=== PATIENT | female | born 1975 | race Caucasian/White ===

== ENCOUNTER 2016-08-08 20:57 | Inpatient (IN) | payer MEDICARE, MEDICAID ==
[2016-08-08] MEDS ORDERED: ONDANSETRON ODT 8 MG TAB SL ONE (21:45)
[2016-08-08] MEDS ORDERED: SODIUM CHLORIDE 0.9% 1000ML 1,000 ML IVS ONE (21:50)
[2016-08-08] MEDS ORDERED: SODIUM CHLORIDE 0.9% 1000ML 1,000 ML ONE (21:52)
--- NOTE | 2016-08-08 22:37 | ED.PDOC ---
History of Present Illness - General Chief Complaint: GI Problem Stated Complaint: n/v/body aches Time Seen by Provider: 08/08/16 22:36 Source: patient, RN notes reviewed, Vital Signs reviewed Exam Limitations: no limitations - History of Present Illness Initial Comments: patient stated that she started with nausea vomiting 2 days ago several episodes estimated to be about 25x and she had history of DM1 and she had been admitted 9 x for dka in the past Severity: moderate Improving Factors: nothing Worsening Factors: eating Associated Symptoms: weakness, other - body aches Allergies/Adverse Reactions: Allergies Eggs or Egg-derived Products Allergy (Verified 08/08/16 21:19) Fish Allergy Allergy (Verified 08/08/16 21:19) peanut Allergy (Severe, Uncoded 04/09/16 17:24) eggs Allergy (Uncoded 04/09/16 17:24) Home Medications: Ambulatory Orders Escitalopram Oxalate [Lexapro] 40 mg PO MOWEFR 06/22/15 Insulin Lispro [Humalog] See Protocol SC ACHS 06/22/15 Promethazine Tab [Phenergan Tablet] 25 mg PO Q6HR PRN 06/22/15 diphenhydrAMINE HCL [Benadryl] 50 mg PO TID PRN 06/22/15 Ciprofloxacin [Cipro] 500 mg PO BID #20 tab 04/09/16 Diazepam [Valium] 10 mg PO DAILY 04/09/16 Dicyclomine HCl [Bentyl] 20 mg PO Q6HRS PRN #30 tab 04/09/16 Divalproex Sodium [Depakote ER] 500 mg PO DAILY 04/09/16 Escitalopram [Lexapro] 20 mg PO SUTUTHSA 04/09/16 Insulin Glargine [Lantus Solostar] 35 unit SC ACBK 04/09/16 Lorazepam [Ativan] 1 mg PO BID 04/09/16 Ondansetron [Zofran Odt] 4 mg PO Q6HR PRN #10 tab 04/09/16 Tramadol HCl 1 - 2 ea PO Q6H PRN #40 tab 04/09/16 Zolpidem Tartrate [Ambien] 10 mg PO BEDTIME 04/09/16 guaiFENesin W/CODEINE LIQ [Robitussin AC] 10 ml PO Q4HR #120 ml 04/09/16 raNITIdine HCL [Zantac] 150 mg PO BID #30 tab 04/09/16 Review of Systems - Review of Systems Constitutional: States: malaise, weakness EENTM: States: no symptoms reported Respiratory: States: cough - dry Cardiology: States: no symptoms reported Gastrointestinal/Abdominal: States: vomiting Genitourinary: States: no symptoms reported Musculoskeletal: States: no symptoms reported Skin: States: no symptoms reported Neurological: States: no symptoms reported Endocrine: States: no symptoms reported Past Medical History (General) - Patient Medical History Hx Seizures: Yes - From exzema+allergies+ control Hx Stroke: No Hx Dementia: No Hx Asthma: Yes Hx of COPD: No Hx Cardiac Disorders: Yes Hx Congestive Heart Failure: No Hx Pacemaker: No Hx Hypertension: No Hx Thyroid Disease: No Hx Diabetes: Yes Hx Gastroesophageal Reflux: Yes Hx Renal Disease: No Hx Cancer: No Hx of HIV: No Hx Hepatitis C: No Hx MRSA: Yes MRSA Source:: Blood Surgical History: appendectomy, cholecystectomy, Hysterectomy, other - hysterectomy,knee - Vaccination History Hx Tetanus, Diphtheria Vaccination: No Hx Influenza Vaccination: No Hx Pneumococcal Vaccination: No Immunizations Up to Date: No - Social History Hx Tobacco Use: Yes Hx Chewing Tobacco Use: No Hx Alcohol Use: Yes Hx Substance Use: Yes Hx Substance Use Treatment: No Hx Depression: Yes Feels Threatened In Home Enviroment: No Feels Threatened In a Relationship: No Hx Physical Abuse: No Hx Emotional Abuse: No Hx Suspected Abuse: No - Activities of Daily Living Patient Lives Alone: No - lives with mother - Female History Patient is a Female of Child Bearing Age (10 -59 yrs old): Yes Hx Last Menstrual Period: 11/05/11 Patient : No Family Medical History - Family History Mother Family History: No Known Name: April Age (years): 67 Living Status: Still Living Father Family History: No Known Name: Marlon Age (years): 65 Living Status: Still Living Hx Family Asthma: No - Sister Hx Family Congestive Heart Failure: No Hx Family Hypertension: No Hx Family Stroke: No Hx Cardiac Disease: No - Grandfather. Hx Family Diabetes: No - Pt Age of Onset (years of age): 33 Hx Family Cancer: Yes - Grandmother Lympoma Physical Exam - Physical Exam General Appearance: Alert, Anxious, No apparent distress Ears, Nose, Throat: hearing grossly normal, normal ENT inspection, normal pharynx Neck: non-tender, full range of motion, supple, normal inspection Respiratory: chest non-tender, lungs clear, normal breath sounds, no respiratory distress Cardiovascular/Chest: normal peripheral pulses, regular rate, rhythm, no edema, no gallop, no JVD, no murmur Peripheral Pulses: radial,right: 2+, radial,left: 2+ Gastrointestinal/Abdominal: normal bowel sounds, non tender, soft, no organomegaly Back Exam: normal inspection, no CVA tenderness, muscle spasm Extremity: normal range of motion, non-tender, normal inspection Skin Exam: normal color Lymphatic: no adenopathy Progress - Results/Orders Results/Orders: 08/09/16 00:20 Sodium Chloride 0.9% 1000ML [Ns 1000 ml] 1,000 ml IVS .QD 08/09/16 04:04 LACTIC ACID Stat 08/09/16 04:45 Sodium Chloride 0.9% 1000ML [Ns 1000 ml] 1,000 ml IVS ONCE Laboratory Results WBC 20.1 K/mm3 (4.8-10.8) H* 08/08/16 03:20 RBC 5.63 M/mm3 (4.20-5.40) H 08/08/16 03:20 Hgb 14.7 gm/dL (12.0-16.0) 08/08/16 03:20 Hct 48.0 % (36.0-47.0) H 08/08/16 03:20 MCV 85.3 fl (81.0-99.0) 08/08/16 03:20 MCH 26.1 pg (27.0-31.0) L 08/08/16 03:20 MCHC 30.6 g/dL (33.0-37.0) L 08/08/16 03:20 RDW 15.1 % (11.5-14.5) H 08/08/16 03:20 Plt Count 302 K/mm3 (130-400) 08/08/16 03:20 MPV 9.4 fl (7.40-10.4) 08/08/16 03:20 Absolute Neuts (auto) Not Reportable 08/08/16 03:20 Absolute Lymphs (auto) Not Reportable 08/08/16 03:20 Absolute Monos (auto) Not Reportable 08/08/16 03:20 Absolute Eos (auto) Not Reportable 08/08/16 03:20 Neutrophils % Not Reportable 08/08/16 03:20 Neutrophils % (Manual) 84.0 % 08/08/16 03:20 Lymphocytes % Not Reportable 08/08/16 03:20 Lymphocytes % (Manual) 5.0 % 08/08/16 03:20 Monocytes % Not Reportable 08/08/16 03:20 Monocytes % (Manual) 5.0 % 08/08/16 03:20 Eosinophils % Not Reportable 08/08/16 03:20 Basophils % Not Reportable 08/08/16 03:20 Band Neutrophils 6.0 % 08/08/16 03:20 Normal RBC Morphology Plts fortino adequate Normal rbc morph 08/08/16 03:20 Normal RBC Morphology Plts fortino adequate Normal rbc morph 08/08/16 03:20 pCO2 11 mmHg (32-45) L* 08/09/16 04:30 pO2 122 mmHg (83-108) H* 08/09/16 04:30 HCO3 2.7 mmol/L 08/09/16 04:30 ABG pH 7.040 (7.35-7.45) L* 08/09/16 04:30 ABG O2 Saturation 98.8 % (95.0-99.0) 08/09/16 04:30 ABG Base Excess -28.3 mmol/L 08/09/16 04:30 ABG Deoxyhemoglobin 1.2 % (0.0-5.0) 08/09/16 04:30 Oxyhemoglobin % 97.0 % (94.0-98.0) 08/09/16 04:30 Carboxyhemoglobin % 1.0 % (0.5-1.5) 08/09/16 04:30 Methemoglobin % Sat 0.8 % (0.0-1.5) 08/09/16 04:30 Calc Total Hemoglobin 13.8 g/dL (12.0-16.0) 08/09/16 04:30 Sodium 133 mmol/L (135-145) L 08/08/16 03:20 Potassium 5.8 mmol/L (3.6-5.0) H 08/08/16 03:20 Chloride 112 mmol/L (101-111) H 08/08/16 03:20 Carbon Dioxide Not Reportable 08/08/16 03:20 BUN 13 mg/dL (7-18) 08/08/16 03:20 Creatinine 0.89 mg/dL (0.6-1.3) 08/08/16 03:20 BUN/Creatinine Ratio 14.6 (10-20) 08/08/16 03:20 POC Glucose 258 mg/dL (70-105) H 08/08/16 21:35 Random Glucose 297 mg/dL (70-105) H 08/08/16 03:20 Calcium 8.2 mg/dL (8.4-10.2) L 08/08/16 03:20 Total Bilirubin 1.1 mg/dL (0.2-1.0) H 08/08/16 03:20 AST 14 IU/L (10-42) 08/08/16 03:20 ALT 20 IU/L (10-60) 08/08/16 03:20 Alkaline Phosphatase 112 IU/L (42-121) 08/08/16 03:20 Serum Total Protein 7.7 gm/dL (6.4-8.2) 08/08/16 03:20 Albumin 4.0 g/dl (3.2-5.5) 08/08/16 03:20 Globulin 3.7 gm/dL (2.3-3.5) H 08/08/16 03:20 Albumin/Globulin Ratio 1.1 (1.1-1.9) 08/08/16 03:20 Lipase 181 U/L (22-51) H 08/09/16 03:20 Urine Color Yellow (Yellow) 08/09/16 04:00 Urine Appearance Clear (Clear) 08/09/16 04:00 Urine pH 5.0 (4.5-7.8) 08/09/16 04:00 Ur Specific Rolette >= 1.030 (1.005-1.030) 08/09/16 04:00 Urine Protein 100 mg/dL H 08/09/16 04:00 Urine Glucose (UA) 500 mg/dL (Negative) H 08/09/16 04:00 Urine Ketones >=160 mg/dL (NEGATIVE) 08/09/16 04:00 Urine Blood Moderate (Negative) H 08/09/16 04:00 Urine Nitrite Negative 08/09/16 04:00 Urine Bilirubin Negative (NEGATIVE) 08/09/16 04:00 Urine Urobilinogen 0.2 mg/dL (0.2-1.0) 08/09/16 04:00 Ur Leukocyte Esterase Negative (Negative) 08/09/16 04:00 Urine RBC 5-10 /hpf H 08/09/16 04:00 Urine WBC 0-1 /hpf 08/09/16 04:00 Ur Epithelial Cells 5-10 /hpf 08/09/16 04:00 Urine Bacteria Rare 08/09/16 04:00 Fine Granular Casts 5-10 /lpf 08/09/16 04:00 Urine Opiates Screen Negative ng/mL (2000) 08/09/16 04:00 Urine Barbiturates Negative ng/mL (200) 08/09/16 04:00 Ur Phencyclidine Scrn Negative ng/mL (25) 08/09/16 04:00 U Amphetamin/Meth Scrn Negative ng/mL (1000) 08/09/16 04:00 U Benzodiazepines Scrn Positive ng/mL (200) H 08/09/16 04:00 U Cocaine Metab Screen Negative ng/mL (300) 08/09/16 04:00 U Cannabinoids Screen Negative ng/mL (50) 08/09/16 04:00 - EKG/XRAY/CT XRAY: chest - no acute abnormalities noted Departure - Departure Clinical Impression: Diabetes mellitus type 1, uncontrolled, insulin dependent, Acidosis, metabolic , Volume depletion, gastrointestinal loss Pancreatitis, acute Qualifiers: Pancreatitis type: unspecified pancreatitis type Qualifier Code: (K85.9) Acute pancreatitis, unspecified Vomiting Qualifiers: Vomiting Intractability: unspecified Nausea presence: with nausea Time of Disposition: 05:02 - D/W Dr. Cody-Hospitalist [facility] Disposition: Discharge to Home or Self Care Condition: Fair Departure Forms: ED Discharge - Pt. Copy, Patient Portal Self Enrollment Referrals: Joby Rangel MD [Primary Care Provider] - 1-2 Weeks Home Medications: Ambulatory Orders Escitalopram Oxalate [Lexapro] 40 mg PO MOWEFR 06/22/15 Insulin Lispro [Humalog] See Protocol SC ACHS 06/22/15 Promethazine Tab [Phenergan Tablet] 25 mg PO Q6HR PRN 06/22/15 diphenhydrAMINE HCL [Benadryl] 50 mg PO TID PRN 06/22/15 Ciprofloxacin [Cipro] 500 mg PO BID #20 tab 04/09/16 Diazepam [Valium] 10 mg PO DAILY 04/09/16 Dicyclomine HCl [Bentyl] 20 mg PO Q6HRS PRN #30 tab 04/09/16 Divalproex Sodium [Depakote ER] 500 mg PO DAILY 04/09/16 Escitalopram [Lexapro] 20 mg PO SUTUTHSA 04/09/16 Insulin Glargine [Lantus Solostar] 35 unit SC ACBK 04/09/16 Lorazepam [Ativan] 1 mg PO BID 04/09/16 Ondansetron [Zofran Odt] 4 mg PO Q6HR PRN #10 tab 04/09/16 Tramadol HCl 1 - 2 ea PO Q6H PRN #40 tab 04/09/16 Zolpidem Tartrate [Ambien] 10 mg PO BEDTIME 04/09/16 guaiFENesin W/CODEINE LIQ [Robitussin AC] 10 ml PO Q4HR #120 ml 04/09/16 raNITIdine HCL [Zantac] 150 mg PO BID #30 tab 04/09/16
[2016-08-08] MEDS ORDERED: METOCLOPRAMIDE HCL INJ 10 MG/2 ML VIAL IV ONE (22:50)
[2016-08-08] MEDS ORDERED: fentaNYL CITRATE INJ 50 MCG/ML AMP IV ONE (23:06)
[2016-08-09] MEDS ORDERED: SODIUM CHLORIDE 0.9% 1000ML 1,000 ML IVS PRN ×3 (00:20→16:42)
[2016-08-09] MEDS ORDERED: SODIUM CHLORIDE 0.9% 1000ML 1,000 ML ONE ×2 (00:43→03:21)
[2016-08-09] MEDS ORDERED: PROMETHAZINE HCL INJ 25 MG/ML VIAL ONE (01:17)
[2016-08-09] MEDS ORDERED: PROMETHAZINE HCL INJ 25 MG/ML VIAL IM ONE (01:26)
[2016-08-09] MEDS ORDERED: MIDAZOLAM INJ 5 MG/5 ML VIAL IV ONE (01:31)
[2016-08-09] MEDS ORDERED: fentaNYL CITRATE INJ 50 MCG/ML AMP ONE (02:51)
[2016-08-09] MEDS ORDERED: fentaNYL CITRATE INJ 50 MCG/ML AMP IV ONE (03:15)
[2016-08-09] MEDS ORDERED: PANTOPRAZOLE SODIUM IV 40 MG VIAL IV ONE ×2 (03:30→03:46)
[2016-08-09] MEDS ORDERED: KETOROLAC TROMETHAMINE INJ 30 MG/ML VIAL IV ONE (03:30)
--- NOTE | 2016-08-09 04:07 | RAD ---
EXAM DESCRIPTION: XR CHEST 1 VIEW 08/09/2016 3:55 AM CLINICAL HISTORY: 40 y/o , F, short of breath COMPARISON: Portable AP view of the chest January 03, 2016 FINDINGS: The lungs are clear without focal consolidation or pleural effusion. The heart is normal in size. The mediastinal contours are normal in appearance. The thoracic spine is age appropriate. The shoulders are unremarkable. Limited evaluation of the upper abdomen demonstrates no gross abnormalities. IMPRESSION: No acute cardiopulmonary disease Electronically signed by: Maxx Rios MD 08/09/2016 04:03
[2016-08-09] MEDS ORDERED: SODIUM CHLORIDE 0.9% 1000ML 1,000 ML IVS ONE (04:45)
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
[2016-08-09] MEDS ORDERED: GLUCAGON INJ 1 MG VIAL SUBCU PRN (05:19)
[2016-08-09] MEDS ORDERED: DEXTROSE 50% 25 GM/50 ML SYG IV PRN (05:19)
[2016-08-09] MEDS ORDERED: LEVALBUTEROL NEBS 1.25 MG/3 ML VIAL INH PRN (05:19)
[2016-08-09] MEDS ORDERED: IV SET AND CAP CHANGE INJ INJ SCH (05:30)
[2016-08-09] MEDS: IPRATROPIUM/ALBUTEROL 3 ML VIAL INH SCH ×5 (05:45→20:11)
[2016-08-09] MEDS ORDERED: KETOROLAC TROMETHAMINE INJ 30 MG/ML VIAL IV PRN (06:42)
[2016-08-09] MEDS ORDERED: INSULIN DETEMIR 100 UNITS/ML PEN SUBCU ONE (07:20)
--- NOTE | 2016-08-09 07:41 | RAD ---
EXAM DESCRIPTION: XR ABDOMEN 1 VIEW (KUB) CLINICAL HISTORY: Vomiting. History of small bowel obstruction. FINDINGS/IMPRESSION: Normal bowel gas. No pneumatosis or evidence of free intraperitoneal air No organomegaly or obvious abdominal mass lesion. No pathologic calcification No acute bony abnormality Electronically signed by: Can Baum MD 08/09/2016 07:39
[2016-08-09] MEDS ORDERED: PROMETHAZINE SUPP 25 MG SUP PR ONE ×2 (08:14→08:35)
[2016-08-09] MEDS: ONDANSETRON INJ 4 MG/2 ML VIAL IV PRN ×3 (08:16→20:41)
[2016-08-09] MEDS: INSULIN LISPRO 100 UNITS/ML PEN SUBCU SCH ×2 (08:28→11:00)
[2016-08-09] MEDS: METOCLOPRAMIDE HCL INJ 10 MG/2 ML VIAL IV SCH ×3 (09:01→20:49)
[2016-08-09] MEDS ORDERED: DIGOXIN INJ 0.5 MG/2 ML AMP ONE (09:17)
[2016-08-09] MEDS ORDERED: HYDROmorphone HCL INJ 2 MG/ML VIAL IV ONE ×2 (09:23→11:21)
[2016-08-09] MEDS ORDERED: SODIUM CHLORIDE 0.9% 1000ML 2,000 ML IVS ONE ×2 (09:26→14:06)
[2016-08-09] MEDS ORDERED: KCL 20MEQ/D5NS 1,000 ML IVS PRN (09:27)
[2016-08-09] MEDS: ALUM & MAG HYDROX-SIMETHICONE 30 ML UD PO PRN (10:40)
[2016-08-09] MEDS ORDERED: LIDOCAINE 1% 10 ML VIAL INJ ONE (11:17)
--- NOTE | 2016-08-09 11:35 | CONS ---
DATE OF CONSULTATION: 08/09/16 HISTORY OF PRESENT ILLNESS: The patient is a 40-year-old female, well known to me for multiple situations who now is admitted in diabetic ketoacidosis. She has poor peripheral vascular access with a pH below 7.2. I have been asked to obtain central venous access to allow for hydration, medications, and for the drawing of blood. The patient has a history of multiple central lines in the past. She has a history of drug abuse in the past. PAST MEDICAL HISTORY: 1. Diabetes, type 1, for over ten years. 2. History of methicillin-resistant Staphylococcus aureus. 3. Gastroesophageal reflux. PAST SURGICAL HISTORY: 1. Appendectomy. 2. Cholecystectomy. 3. Hysterectomy. 4. Knee surgery. CURRENT MEDICATIONS: 1. Ranitidine. 2. Guaifenesin with codeine. 3. Zolpidem. 4. Tramadol. 5. Zofran. 6. Lorazepam. 7. Insulin. 8. Lexapro. 9. Depakote. 10. Dicyclomine. 11. Valium. 12. Recently on Cipro. 13. Benadryl. 14. Phenergan tablets. ALLERGIES: EGGS, FISH, PEANUTS. FAMILY HISTORY: Noncontributory. SOCIAL HISTORY: The patient lives with her mother. She has a history of smoking and uses alcohol. REVIEW OF SYSTEMS: Noncontributory except as in the history of present illness. PHYSICAL EXAMINATION: GENERAL: The patient is awake, alert, cooperative, and anxious. NECK: Recent puncture site from last night. The clavicles are both intact, within normal limits. There is some scarring below them, nothing recent. No open wounds. CHEST: Equal breath sounds bilaterally. LABORATORY: Unremarkable other than the electrolyte disorder. RECOMMENDATION: The risks, benefits and alternatives to central venous catheterization were discussed with the patient. She understands, but is anxious. The plan will be to proceed with a triple lumen central catheter under local anesthesia. #[id number] [facility]
--- NOTE | 2016-08-09 12:42 | RAD ---
EXAM DESCRIPTION: XR CHEST 1 VIEW CLINICAL HISTORY: line placement COMPARISON: August 09, 2016 at 0352 hr tear IMPRESSION: Single AP portable upright view of the chest shows cardiac silhouette and pulmonary vasculature to be within normal limits. There has been interval placement of a right subclavian MediPort with tip in good positioning at the distal superior vena cava and no evidence of pneumothorax. Lungs are normally aerated and clear. Electronically signed by: Jerry Delatorre MD 08/09/2016 12:39
--- NOTE | 2016-08-09 13:20 | OP ---
DATE OF PROCEDURE: 08/09/16 PREOPERATIVE DIAGNOSIS: 1. Diabetic ketoacidosis. 2. Poor peripheral vascular access. POSTOPERATIVE DIAGNOSIS: 1. Diabetic ketoacidosis. 2. Poor peripheral vascular access. PROCEDURE: 1. Insertion of right subclavian venous access catheter, triple lumen. SURGEON: Tate Woodson MD. RAYON WINDER: None. ANESTHESIA: Local infiltration of 1% lidocaine. INDICATION: The patient is a 40-year-old female diabetic who presented to the Emergency Room with diabetic ketoacidosis with pH of 7.0. She has lost multiple peripheral IVs over the past 12 hours and I have been asked to obtain central access to allow drawing of her blood from the catheter, her lab work, and to give IV fluids, IV insulin, and possibly bicarb as needed. The risks, benefits and alternatives to the procedure were discussed and accepted by the patient who has had multiple procedures in the past. FINDINGS: Venous blood was obtained with a single stick with the 22 gauge needle and then likewise with the 18 gauge thin wall needle. Chest x-ray is pending. Blood was easily aspirated from all three lumens and flushed at the end of the procedure. PROCEDURE: The patient was placed in supine position. The right chest was prepped and draped in the usual sterile manner. Infraclavicular area was infiltrated with local anesthesia. A 22 gauge needle was introduced and walked down the clavicle and advanced. Venous blood was aspirated. The 18 gauge thin wall needle was then introduced in the same direction. Blood was easily aspirated. The guidewire was then introduced through the needle and the needle was removed. At this point, a stab wound was made over the guidewire. The dilator was introduced over the guidewire and it shows to be downgoing. The dilator was removed and the catheter was introduced over the guidewire without difficulty. It was introduced to 14 cm xochitl. At this point, all three lumens were aspirated and flushed with saline. The catheter was sutured in place in the usual manner with four Silk sutures. Sterile dressing was applied. Stat portable chest x-ray was ordered. The patient tolerated the procedure well. Estimated blood loss was nil. Blood for lab was drawn. #[id number] [facility]
[2016-08-09] MEDS ORDERED: DEXTROSE 10% IV PRN ×2 (13:57→15:52)
[2016-08-09] MEDS ORDERED: POTASSIUM CHLORIDE IV PRN ×3 (13:57→19:20)
[2016-08-09] MEDS ORDERED: INSULIN, REG.(HUMAN) 100 U/ML VIAL ONE (14:29)
[2016-08-09] MEDS ORDERED: SODIUM CHL 0.9% 250ML (AVIVA) 250 ML IVPB ONE (14:29)
[2016-08-09] MEDS ORDERED: POTASSIUM CHLORIDE 40mEq 20ML VIAL ONE ×2 (14:49→21:37)
[2016-08-09] MEDS ORDERED: DEXTROSE 10% 1000ML 1,000 ML IVS ONE ×2 (14:59→21:59)
[2016-08-09] MEDS: SODIUM CHL 0.9% IVPB SCH ×8 (15:06→22:03)
[2016-08-09] MEDS: REG IVPB SCH ×8 (15:06→22:03)
[2016-08-09] MEDS: INSULIN IVPB SCH ×8 (15:06→22:03)
[2016-08-09] MEDS ORDERED: KETOROLAC TROMETHAMINE INJ 60 MG/2 ML VIAL IM ONE (15:29)
[2016-08-09] MEDS: ESCITALOPRAM 10 MG TAB PO SCH (16:18)
[2016-08-09] MEDS: diazePAM 5 MG TAB PO SCH (16:19)
[2016-08-09] MEDS: MORPHINE SULFATE INJ 10 MG/ML VIAL IV PRN ×2 (17:15→21:13)
[2016-08-09] MEDS ORDERED: MAGNESIUM SULFATE PREMIX 2GM 2 GM in PREMIX BAG 1 BAG IVPB ONE (19:15)
[2016-08-09] MEDS ORDERED: NS IV PRN (19:20)
[2016-08-09] MEDS ORDERED: KCL IV PRN (19:20)
[2016-08-09] MEDS ORDERED: MAGNESIUM SULFATE PREMIX 2GM 50 ML IVPB ONE (20:06)
[2016-08-09] MEDS: KCL 20MEQ/0.45% NS 1,000 ML IVS PRN ×2 (20:11→21:58)
[2016-08-09] MEDS: SODIUM CHLORIDE 0.9% (FLUSH) 10 ML SYG IV PRN (20:42)
[2016-08-09] MEDS: ZOLPIDEM TARTRATE 10 MG TAB PO SCH (20:49)
[2016-08-09] MEDS: POTASSIUM CHLORIDE IV PRN (21:59)
[2016-08-09] MEDS: DEXTROSE 10% IV PRN (21:59)
--- NOTE | 2016-08-09 22:22 | PCM.CORE ---
Physician DVT/VTE - Nurse DVT Assessment & Total Each Risk Factor Represents 2 Points: Centeral Venous Access Each Risk Factor Represents 1 Point: Age 41-60, Medical PT at Bed Rest, Hx of smoking past year DVT Assessment Score: 5 - 5 or more Very High Risk Treatments: Early Ambulation *, Sequential Compression Device Pharmacological: Enoxaparin 40mg SQ Daily
[2016-08-10] MEDS: MORPHINE SULFATE INJ 10 MG/ML VIAL IV PRN ×6 (01:18→21:52)
[2016-08-10] MEDS ORDERED: PANTOPRAZOLE SODIUM TAB 40 MG PO ONE (02:06)
[2016-08-10] MEDS: ALUM & MAG HYDROX-SIMETHICONE 30 ML UD PO PRN (02:08)
[2016-08-10] MEDS: ONDANSETRON INJ 4 MG/2 ML VIAL IV PRN ×4 (02:09→21:52)
[2016-08-10] MEDS: SODIUM CHLORIDE 0.9% (FLUSH) 10 ML SYG IV PRN ×2 (04:46→07:05)
[2016-08-10] MEDS: KCL 20MEQ/0.45% NS 1,000 ML IVS PRN (04:47)
[2016-08-10] MEDS ORDERED: POTASSIUM CHLORIDE 40mEq 20ML VIAL ONE (05:17)
[2016-08-10] MEDS: DEXTROSE 10% IV PRN (05:34)
[2016-08-10] MEDS ORDERED: DEXTROSE 10% 1000ML 1,000 ML IVS ONE (05:34)
[2016-08-10] MEDS: POTASSIUM CHLORIDE IV PRN (05:34)
[2016-08-10] MEDS: PANTOPRAZOLE SODIUM TAB 40 MG PO SCH ×2 (06:14→09:15)
[2016-08-10] MEDS: IPRATROPIUM/ALBUTEROL 3 ML VIAL INH SCH ×4 (08:06→20:10)
[2016-08-10] MEDS: INSULIN DETEMIR 100 UNITS/ML PEN SUBCU SCH (08:30)
[2016-08-10] MEDS: diazePAM 5 MG TAB PO SCH (08:41)
[2016-08-10] MEDS: ENOXAPARIN SODIUM 40 MG/0.4 ML SYG SUBCU SCH (08:42)
[2016-08-10] MEDS ORDERED: ESCITALOPRAM 10 MG TAB PO SCH (09:00)
[2016-08-10] MEDS: SODIUM CHLORIDE 0.9% (FLUSH) 10 ML SYG IV SCH ×2 (09:16→20:33)
[2016-08-10] MEDS: INSULIN LISPRO 100 UNITS/ML PEN SUBCU SCH ×3 (11:40→21:26)
--- NOTE | 2016-08-10 19:13 | PN ---
DATE: 08/10/16 SUPERVISING PHYSICIAN: Aristides Alvarado M.D. SUBJECTIVE: The patient is feeling much better today. She did receive fluid resuscitation on her last 24 hours with approximately 7 liters of normal saline. She has not had any nausea or vomiting. Her laboratories have improved dramatically. She has had good urine output. She says she slept well and has felt much better today. She was able to tolerate a clear liquid diet this morning. OBJECTIVE: VITAL SIGNS: Temperature 97, pulse 83, blood pressure 104/67, respirations 18, O2 sat 98% on room air. GENERAL: The patient is resting in bed. Appears to be in no acute distress and comfortable. CHEST: Clear to auscultation bilaterally. Oropharynx is pink and moist with no lesions. There is no jugular venous distention. HEART: regular rate and rhythm. ABDOMEN: Soft , non-tender. Positive bowel sounds. EXTREMITIES: No clubbing, cyanosis or edema. NEUROLOGIC: She is alert and oriented times three. LABORATORY: BMP this morning shows sodium 136, potassium 3.6, chloride remains slightly elevated at 116, carbon dioxide now is improved to 18 from admission of less than 7, anion gap is now normalized at 5.6. BUN 3, creatinine 0.48, glucoses in the last 24 hours have been 135 to 258. Magnesium was low initially and was replaced with 2 grams of infusion, recheck tomorrow. Liver functions now show normal with lipase and amylase being normal with amylase now 78, lipase 35. Serum ketones were negative at 8:00 last night. RADIOLOGY: There is no additional radiographic studies for review. ASSESSMENT: 1. Acute metabolic acidosis secondary to diabetic ketoacidosis secondary to persistent nausea and vomiting 2 to 3 days prior to admission with poor management of her insulin therapy and poor oral intake. This has now resolved. She is no longer acidotic and is no longer producing ketones. She is on subcutaneous insulin and tolerating oral diet without any complications. 2. Elevated lipase likely secondary to the diabetic ketoacidosis and her dehydrated state shown to be normal this morning after IV therapy. 3. Severe dehydration secondary to her diabetic ketoacidosis now resolved after aggressive IV fluids. 4. Type 1 diabetes mellitus poorly controlled with a history of multiple admissions for diabetic ketoacidosis within the last year. 5. History of chronic obstructive pulmonary disease in a smoker. 6. Chronic eczema. 7. Chronic tobacco abuse. 8. Chronic lower back pain and chronic narcotics having previously been treated for pain at a clinic in [place] but being fired within the last month and running out of her opioid pain medicines and Valium possibly resulting in some opioid withdrawal syndrome in the past that could have been associated with the nausea and vomiting prior to admission. 9. Peripheral neuropathy on chronic pain medications, again having been dismissed from the pain clinic. 10. History of chronic fibromyalgia. 11. History of chronic anxiety disorder currently on Benzodiazepines. 12. Leukocytosis secondary to severe dehydrated state with some demarginalization secondary to persistent nausea and vomiting prior to admission now resolved after IV fluid therapy. PLAN: The patient this morning will be saline locked. She is now tolerating a p.o. diet. Her insulin drip has been stopped. She is now on Levemir 20 units daily as well as insulin sliding scale. Her diet this morning was clear liquids. We advanced as tolerated. In regards to possible opioid withdrawals, will plan to restart her back on some Velva as well as some Valium with emphasis that she will need to have followup with her primary care physician, Dr. Rangel, in regards to additional pain management prescriptions. Will continue to monitor the patient. Anticipate possible discharge tomorrow with the blood glucose finger sticks being changes from every hour to a.c. and h.s. At this point, she is stable on oral therapy. Will continue to monitor and repeat laboratory studies in the morning, and possibly discharge after reevaluation. Until then, will follow the patient closely and treat appropriately. #[id number] [facility]
[2016-08-10] MEDS: ZOLPIDEM TARTRATE 10 MG TAB PO SCH (20:33)
[2016-08-11] MEDS: MORPHINE SULFATE INJ 10 MG/ML VIAL IV PRN ×3 (01:51→10:42)
[2016-08-11] MEDS: SODIUM CHLORIDE 0.9% (FLUSH) 10 ML SYG IV PRN ×2 (01:52→06:42)
[2016-08-11] MEDS ORDERED: INSULIN LISPRO 100 UNITS/ML PEN SUBCU ONE (06:04)
[2016-08-11] MEDS: PANTOPRAZOLE SODIUM TAB 40 MG PO SCH (06:26)
[2016-08-11] MEDS: INSULIN DETEMIR 100 UNITS/ML PEN SUBCU SCH ×2 (06:27→09:23)
[2016-08-11] MEDS: ONDANSETRON INJ 4 MG/2 ML VIAL IV PRN (06:40)
[2016-08-11] MEDS: INSULIN LISPRO 100 UNITS/ML PEN SUBCU SCH ×2 (07:30→12:01)
[2016-08-11] MEDS: IPRATROPIUM/ALBUTEROL 3 ML VIAL INH SCH (08:49)
[2016-08-11] MEDS: SODIUM CHLORIDE 0.9% (FLUSH) 10 ML SYG IV SCH (09:25)
[2016-08-11] MEDS: diazePAM 5 MG TAB PO SCH (09:25)
[2016-08-11] MEDS: ENOXAPARIN SODIUM 40 MG/0.4 ML SYG SUBCU SCH ×2 (09:25→09:43)
[2016-08-11] MEDS: ESCITALOPRAM 10 MG TAB PO SCH (09:26)
[2016-08-11 10:32] VITALS: BP 104/70; TEMP 98.2
[2016-08-11 11:53] VITALS: O2SAT 96
--- NOTE | 2016-08-18 21:38 | DS ---
SUPERVISING PHYSICIAN: Aristides Alvarado M.D. DISCHARGE DIAGNOSIS: 1. Acute metabolic acidosis secondary to diabetic ketoacidosis secondary to persistent nausea and vomiting for 2 to 3 days prior to admission with poor management of her insulin therapy and poor oral intake. DKA resolved prior to discharge. The patient is no longer acidotic and is no longer producing ketones. She is on subcutaneous insulin and tolerating oral diet without any complications. 2. Elevated lipase likely secondary to the diabetic ketoacidosis and her dehydrated state normalizing with IV therapy prior to discharge. 3. Severe dehydration secondary to her diabetic ketoacidosis having resolved after aggressive IV fluids and treatment. 4. Type 1 diabetes mellitus poorly controlled with a history of multiple admissions for diabetic ketoacidosis within the last year. 5. History of chronic obstructive pulmonary disease in a smoker. 6. Chronic eczema. 7. Chronic tobacco abuse. 8. Chronic lower back pain and on chronic narcotics having previously been treated at a pain clinic in [place] but being recently discharged from services in the last month having run out of her opioid pain medicines and Valium possibly resulting in some opioid withdrawal syndrome in the past that could have been associated with the nausea and vomiting prior to admission. 9. Peripheral neuropathy on chronic pain medications, again having been dismissed from the pain clinic. 10. History of chronic fibromyalgia. 11. History of chronic anxiety disorder currently on Benzodiazepines. 12. Leukocytosis secondary to severe dehydrated state with some demarginalization secondary to persistent nausea and vomiting prior to admission having resolved prior to discharge. 13. Folliculitis secondary to shaving having been started on antibiotics at time of discharge to include Cephalexin. HISTORY OF PRESENT ILLNESS: Ms. Perkins is a 40 year-old female patient with a significant history of type 1 diabetes mellitus having been poorly controlled in the past and had multiple admissions for diabetic ketoacidosis. On day of admission, the patient presented to the E. R. with nausea and vomiting stating that she had started vomiting 2 days previously with multiple episodes daily, and had inability to hold any fluids as well as failure to have oral intake and utilize her insulin resulting in a severe hypovolemic state and diabetic ketoacidosis. Laboratory studies initially in the Emergency Room showed arterial blood gas with a pH of 7.04 with a PCO2 of 11 and base excess was negative at 28.3, bicarb 2.7. Initial electrolytes showed potassium 5.8, glucose 297, BUN 13, creatinine 0.89. Pancreatic enzymes were also completed showing to be elevated with a lipase at 181. Given the patient's severe metabolic acidosis and dehydration state, the patient was initially started on treatment for diabetic ketoacidosis in the Emergency Department and admitted to the Medical/Surgical floor. She was admitted in stable condition. LABORATORY: White count on admission was 20.1, after IV therapy and treatment at time of discharge was 6.0, hemoglobin and hematocrit were elevated at admission of 14.7 and 48.0, at time of discharge was 11.2 and 34.6. Differential remained within normal limits. Platelet count also within normal limits, at discharge was 165. Initial blood gas on admission showed pH 7.04 with bicarb 2.7, PO2 of 122, PCO2 of 11. The pH on same day of admission after initial starting of treatment showed improvement with pH of 7.11, bicarb 3.9 with PO2 of 104 and PCO2 of 13. Base excess was negative 25.2. Chemistries on admission initially electrolytes showed sodium 133, potassium 5.8, chloride 112 , carbon dioxide was less than 7, BUN 13, creatinine 0.89. Initial glucose was 297. Serum osmolality was not reportable. Bilirubin was elevated at 1.1, magnesium was low at 1.6, lipase was elevated at 181. After starting IV therapy and insulin drip and treatment, she showed good resolution with electrolytes that were managed every 4 hours while on insulin drip and at time of discharge potassium 4.0, other electrolytes were within normal limits. BUN 10, creatinine 0.53. Glucose had normalized after treatment and was on D5 on the morning prior to discharge and showed elevation from 205 to 435 after stopping insulin drip and starting subcutaneous insulin. She had stabilized and at discharge glucose was 199, and she was on her normal insulin regimen. Glucoses were controlled with insulin drip. Please refer to full set of laboratory studies to monitor glucoses that were monitored every hour as well as her metabolic panels that were every 4 hours up until stabilization. Her lipase did normalize after starting treatment and at discharge was 35. Liver functions all showed to be within normal limits. Amylase was also normal at 78. Urine on admission showed 100 protein, 500 glucose, ketones were greater than 160 with a moderate amount of blood. Microscopic showed 5 to 10 RBCs, 0 to 1 WBCs, 5 to 10 epithelials, rare bacteria, 5 to 10 granular casts. She did have ketones that were negative on 08/09 and a drug screen that showed positive for Benzodiazepines. All other substances tested were negative. MICROBIOLOGY: There were none submitted. RADIOLOGY: She had a chest x-ray prior to admission and per radiology interpretation showed no acute cardiopulmonary disease. She also had an abdominal x-ray on admission to the floor and per radiology interpretation showed normal bowel gas pattern. No pneumatosis or evidence of free intraperitoneal air. She had an x-ray that was completed on 08/09, chest x-ray , and per radiology interpretation showed placement of a right subclavian MediPort that was in good position after placement by Dr. Woodson. No pneumothoraxes were noted. Lungs were clear. SURGICAL CONSULTATION: By Dr. Woodson for placement of a central line. Please refer to his noted for full details of central line placement. HOSPITAL COURSE: Ms. Perkins was admitted on 08/08 through the E. R. and then admitted to the Medical/Surgical floor on 08/09 after starting treatment for diabetic ketoacidosis initially. She had a difficult line placement and received fluids in the Emergency Department with 3 liters after admission to the floor. She was started on fluids and given a total of 7 liters of fluids in treatment of diabetic ketoacidosis, and started on insulin drip per protocol. She remained stable. She had finger sticks every hour while on insulin drip as well as every 4 and 2 hours BNPs. Please refer to laboratory for full details. She did show good resolution and was no longer having nausea at time of discharge. On the day of discharge, she was advanced on her diet as tolerated and was able to tolerate a diet, and was started back on her regular insulin regimen. It was felt that she had stabilized and was metabolically recovered in regards to diabetic ketoacidosis, and was able to be discharged to continue with followup in the outpatient setting. PLAN: Ms. Perkins was discharged on 08/11/16 to have close clinical followup with Dr. Rangel, her primary care provider. She was scheduled to see Dr. Rangel on 08/17/16. She was encouraged to establish with an chairman emeritus to help manage her diabetes better and to follow a strict diabetic diet to better control her blood sugars. She was instructed of the dangers of stopping her insulin even when she was sick and to maintain her fluid status. If she had any return of symptoms, she was to call Dr. Rangel or go back to the E. R. She was encouraged to keep a blood sugar log to take with her back in the followup appointments. She was also encouraged to stop shaving her pubic area and to continue antibiotics as directed for folliculitis, and to resume all previous medications as directed. If not improving, return to the hospital. She was discharged with new prescriptions to include: 1. Cephalexin 500 mg 4 times a day, #40. 2. Tylenol #3 for pain control 1 every 4 hours as needed, #20. 3. Valium 10 mg daily, #10. 4. Zofran 4 mg every 6 hours, #8. She was also encouraged to followup with Dr. Rangel in regards to reestablishing with a pain doctor in regards to managing her fibromyalgia and chronic pain, and to prevent any further complications secondary to opioid withdrawal. In regards to constipation, again she was encouraged to drink plenty of fluids and call Dr. Rangel should she have any return of symptoms or worsening symptoms, or return to the E. R. She was discharged in stable condition. #[id number] [facility]
== END 2016-08-11 12:02 | disposition home or self-care (01) | DRG 639 ==
LOC: ER 20:57 → MS 08-09 05:08
PROVIDERS: ADMIT Emergency Medicine; ATTEND Nurse Practitioner Family
PROC: 02HV33Z Insertion of Infusion Device into Superior Vena Cava, Percutaneous Approach (ICD-10-PCS; principal; 2016-08-09)
DX: E10.10 Type 1 diabetes mellitus with ketoacidosis without coma (principal); E10.65 Type 1 diabetes mellitus with hyperglycemia; E86.0 Dehydration; J44.9 Chronic obstructive pulmonary disease, unspecified; J45.909 Unspecified asthma, uncomplicated; K21.9 Gastro-esophageal reflux disease without esophagitis; L30.9 Dermatitis, unspecified; G89.29 Other chronic pain; M54.9 Dorsalgia, unspecified; E10.42 Type 1 diabetes mellitus with diabetic polyneuropathy; M79.7 Fibromyalgia; F41.9 Anxiety disorder, unspecified; Z96.89 Presence of other specified functional implants; S34 Injury of lumbar and sacral spinal cord and nerves at abdomen, lower back and pelvis level; Z86.14 Personal history of Methicillin resistant Staphylococcus aureus infection; Z79.4 Long term (current) use of insulin; Z79.899 Other long term (current) drug therapy; Z91.012 Allergy to eggs; Z91.013 Allergy to seafood; Z91.010 Allergy to peanuts; Z87.891 Personal history of nicotine dependence; L73.9 Follicular disorder, unspecified

== ENCOUNTER 2016-08-17 11:23 | Inpatient (IN) | payer MEDICARE, MEDICAID ==
[2016-08-17] MEDS ORDERED: ONDANSETRON INJ 4 MG/2 ML VIAL ONE ×2 (11:47→15:40)
[2016-08-17] MEDS ORDERED: SODIUM CHLORIDE 0.9% 1000ML 1,000 ML ONE ×2 (11:47→12:10)
--- NOTE | 2016-08-17 12:15 | ED.PDOC ---
History of Present Illness - General Chief Complaint: Abdominal Pain Stated Complaint: abd pain, vomiting Time Seen by Provider: 08/17/16 11:30 Source: patient Exam Limitations: no limitations - History of Present Illness Initial Comments: Patient presents with one day of increasing abdominal pain, dyspnea, and general body aches. She has IDDM and says that this feels exactly like when she goes into DKA. She was hospitalized for DKA one week ago and went to her pcp today for follow up but was told to come to the E.D. due to her symptoms. Patient uses both Lantus and Humalog at home. No recent URI. Has also had N/V today. No other complaints. Timing/Duration: 24 hours Severity: moderate Worsening Factors: nothing Associated Symptoms: nausea/vomiting Allergies/Adverse Reactions: Allergies Eggs or Egg-derived Products Allergy (Verified 08/08/16 21:19) Fish Allergy Allergy (Verified 08/08/16 21:19) peanut Allergy (Severe, Uncoded 04/09/16 17:24) eggs Allergy (Uncoded 04/09/16 17:24) Home Medications: Ambulatory Orders Escitalopram Oxalate [Lexapro] 40 mg PO MOWEFR 06/22/15 Insulin Lispro [Humalog] See Protocol SC ACHS 06/22/15 Escitalopram [Lexapro] 20 mg PO SUTUTHSA 04/09/16 Insulin Glargine [Lantus Solostar] 35 unit SC ACBK 04/09/16 Zolpidem Tartrate [Ambien] 10 mg PO BEDTIME 04/09/16 HYDROcodone 10MG/APAP 325MG 10 mg PO PRN PRN 08/09/16 Acetaminophen W/ Codeine [Tylenol W/ CODEINE #3] 1 ea PO Q4H #20 08/11/16 Cephalexin 500 mg PO QID #40 cap 08/11/16 Diazepam [Valium] 10 mg PO DAILY #10 tab 08/11/16 Ondansetron Tab [Zofran Tab] 4 mg PO Q6H #8 tab 08/11/16 Review of Systems - Review of Systems Constitutional: States: see HPI EENTM: States: no symptoms reported Respiratory: States: see HPI Cardiology: States: no symptoms reported Gastrointestinal/Abdominal: States: see HPI Genitourinary: States: no symptoms reported Musculoskeletal: States: no symptoms reported Skin: States: no symptoms reported Neurological: States: no symptoms reported Endocrine: States: no symptoms reported Hematologic/Lymphatic: States: no symptoms reported Past Medical History (General) - Patient Medical History Hx Seizures: No Hx Stroke: No Hx Dementia: No Hx Asthma: No Hx of COPD: No Hx Cardiac Disorders: Yes Hx Congestive Heart Failure: No Hx Pacemaker: No Hx Hypertension: No Hx Thyroid Disease: No Hx Diabetes: Yes Hx Gastroesophageal Reflux: Yes Hx Renal Disease: No Hx Cancer: No Hx of HIV: No Hx Hepatitis C: No Hx MRSA: Yes MRSA Source:: Blood - Vaccination History Hx Tetanus, Diphtheria Vaccination: No Hx Influenza Vaccination: No Hx Pneumococcal Vaccination: No - Social History Hx Tobacco Use: No Hx Chewing Tobacco Use: No Hx Alcohol Use: No Hx Substance Use: No Hx Substance Use Treatment: No Hx Depression: Yes Hx Physical Abuse: No Hx Emotional Abuse: No Hx Suspected Abuse: No - Female History Patient is a Female of Child Bearing Age (10 -59 yrs old): Yes Hx Last Menstrual Period: 11/05/11 Patient : No Family Medical History - Family History Mother Family History: No Known Name: April Age (years): 67 Living Status: Still Living Father Family History: No Known Name: Marlon Age (years): 65 Living Status: Still Living Hx Family Asthma: No - Sister Hx Family Congestive Heart Failure: No Hx Family Hypertension: No Hx Family Stroke: No Hx Cardiac Disease: No - Grandfather. Hx Family Diabetes: No - Pt Age of Onset (years of age): 33 Hx Family Cancer: Yes - Grandmother Lympoma Physical Exam - Physical Exam General Appearance: Alert Ears, Nose, Throat: normal ENT inspection Neck: non-tender, full range of motion, supple Respiratory: lungs clear, other - tachypneic Cardiovascular/Chest: tachycardia Gastrointestinal/Abdominal: normal bowel sounds, non tender, soft Neurologic: no motor/sensory deficits Skin Exam: normal color Lymphatic: no adenopathy Progress - Progress Progress: 08/17/16 13:15 08/17/16 13:17 Blood sugar 458. Potassium 5.6. One liter NS bolus started. 7 units of human insulin given by IV bolus and insulin drip at 7 units per hour started. Morphine 4 mg IV x one for abdominal pain. CXR showed no acute disease. After 3 hours, the serum blood glucose was 179 and potassium was 4.5. Serum bicarbonate was 9 and the anion gap was 17.5 Patient was started on D5 NS and the insulin drip was continued. Potassium chloride 20 meq was given over two hours. Insulin drip slowed to 4 units per hour. 08/17/16 16:22 08/17/16 16:24 08/17/16 18:08 anion gap 18.6 bicarbonate 8 glucose 205 Breathing has normalized. Patient transferred to the floor for subq insulin, fluids, and monitoring of ketones. Departure - Departure Clinical Impression: DKA (diabetic ketoacidoses) Disposition: Admit Patient Condition: Good Departure Forms: ED Discharge - Pt. Copy, Patient Portal Self Enrollment Instructions: DI for Abdominal Pain-Adult Diet: diabetic diet Activity: increase activity as tolerated Home Medications: Ambulatory Orders Escitalopram Oxalate [Lexapro] 40 mg PO MOWEFR 06/22/15 Insulin Lispro [Humalog] See Protocol SC ACHS 06/22/15 Escitalopram [Lexapro] 20 mg PO SUTUTHSA 04/09/16 Insulin Glargine [Lantus Solostar] 35 unit SC ACBK 04/09/16 Zolpidem Tartrate [Ambien] 10 mg PO BEDTIME 04/09/16 HYDROcodone 10MG/APAP 325MG 10 mg PO PRN PRN 08/09/16 Acetaminophen W/ Codeine [Tylenol W/ CODEINE #3] 1 ea PO Q4H #20 08/11/16 Cephalexin 500 mg PO QID #40 cap 08/11/16 Diazepam [Valium] 10 mg PO DAILY #10 tab 08/11/16 Ondansetron Tab [Zofran Tab] 4 mg PO Q6H #8 tab 08/11/16
[2016-08-17] MEDS ORDERED: INSULIN, REG.(HUMAN) 100 U/ML VIAL IV ONE (12:16)
[2016-08-17] MEDS ORDERED: INSULIN, REG.(HUMAN) 100 U/ML VIAL ONE (12:21)
[2016-08-17] MEDS ORDERED: SODIUM CHL 0.9% 250ML (AVIVA) 250 ML IVPB ONE (12:21)
[2016-08-17] MEDS ORDERED: INSULIN, REG.(HUMAN) 250 UNITS in SODIUM CHL 0.9% 250ML (AVIVA) 247.5 ML IVPB SCH ×2 (12:30)
[2016-08-17] MEDS ORDERED: ONDANSETRON INJ 4 MG/2 ML VIAL IV ONE ×3 (12:55→18:55)
[2016-08-17] MEDS ORDERED: SODIUM CHLORIDE 0.9% 1000ML 1,000 ML IVS ONE ×3 (12:56→14:56)
[2016-08-17] MEDS ORDERED: MORPHINE SULFATE INJ 10 MG/ML VIAL IV ONE ×2 (12:57→16:52)
--- NOTE | 2016-08-17 12:59 | RAD ---
EXAM DESCRIPTION: XR CHEST 1 VIEW CLINICAL HISTORY: leukocytosis and dyspnea COMPARISON: August 09, 2016 IMPRESSION: Single AP portable upright view of the chest shows cardiac silhouette and pulmonary vasculature to be within normal limits. Lungs are normally aerated and clear. No obvious pleural effusion or pneumothorax is seen. The right-sided MediPort is no longer identified. Electronically signed by: Jerry Delatorre MD 08/17/2016 12:57
[2016-08-17] MEDS ORDERED: PANTOPRAZOLE SODIUM IV 40 MG VIAL IV ONE (15:38)
[2016-08-17] MEDS ORDERED: PANTOPRAZOLE SODIUM IV 40 MG VIAL ONE (15:40)
[2016-08-17] MEDS ORDERED: DEX 5% W/NACL 0.9% 1000ML 1,000 ML IVS PRN (16:15)
[2016-08-17] MEDS ORDERED: KCL 20MEQ/WATER FOR INJ 100ML 20 MEQ in PREMIX BAG 1 BAG IVPB ONE (16:32)
[2016-08-17] MEDS ORDERED: KCL 20MEQ/WATER FOR INJ 100ML 100 ML IVPB ONE (16:38)
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
[2016-08-17] MEDS ORDERED: PROMETHAZINE HCL INJ 12.5 MG in SODIUM CHLORIDE 0.9% 50ML 50 ML IVPB PRN (21:28)
[2016-08-17] MEDS ORDERED: ALBUTEROL SULFATE 2.5 MG/3 ML VIAL NEB PRN (21:29)
[2016-08-17] MEDS ORDERED: IV SET AND CAP CHANGE INJ INJ SCH (21:30)
[2016-08-17] MEDS ORDERED: INSULIN LISPRO 100 UNITS/ML PEN SUBCU SCH (22:00)
[2016-08-17] MEDS ORDERED: PROMETHAZINE HCL INJ 25 MG/ML VIAL ONE (22:21)
[2016-08-17] MEDS ORDERED: SODIUM CHLORIDE 0.9% 50ML 50 ML ONE (22:22)
[2016-08-17] MEDS ORDERED: SODIUM CHLORIDE 0.9% 1000ML 1,000 ML IVS PRN (22:22)
[2016-08-17] MEDS ORDERED: ENOXAPARIN SODIUM 40 MG/0.4 ML SYG SUBCU SCH (22:30)
[2016-08-17] MEDS: MORPHINE SULFATE INJ 10 MG/ML VIAL IV PRN (22:35)
[2016-08-17] MEDS: POTASSIUM PHOSPHATE 500 MG TAB PO SCH (22:37)
[2016-08-17] MEDS: PROMETHAZINE HCL INJ 25 MG in SODIUM CHLORIDE 0.9% 50ML 50 ML IVPB PRN (22:42)
[2016-08-17] MEDS: INSULIN LISPRO 100 UNITS/ML PEN SUBCU SCH (23:08)
[2016-08-18] MEDS: DEX 5% W/NACL 0.45% 1000ML 1,000 ML IVS PRN ×2 (00:21→07:19)
[2016-08-18] MEDS: INSULIN LISPRO 100 UNITS/ML PEN SUBCU SCH ×10 (01:10→21:15)
[2016-08-18] MEDS ORDERED: ALUM & MAG HYDROX-SIMETHICONE 30 ML UD PO PRN (01:27)
[2016-08-18] MEDS: POTASSIUM PHOSPHATE 500 MG TAB PO SCH ×3 (02:40→09:55)
[2016-08-18] MEDS: MORPHINE SULFATE INJ 10 MG/ML VIAL IV PRN ×3 (02:55→12:45)
[2016-08-18] MEDS: ONDANSETRON INJ 4 MG/2 ML VIAL IV PRN ×3 (02:56→12:44)
[2016-08-18] MEDS: PANTOPRAZOLE SODIUM IV 40 MG VIAL IV SCH (06:27)
[2016-08-18] MEDS ORDERED: SODIUM CHLORIDE 0.9% 1000ML 1,000 ML ONE (11:19)
[2016-08-18] MEDS ORDERED: INSULIN LISPRO 100 UNITS/ML PEN SUBCU ONE (11:21)
[2016-08-18] MEDS ORDERED: SODIUM CHLORIDE 0.9% 1000ML 1,000 ML IVS ONE (11:22)
[2016-08-18] MEDS ORDERED: MAGNESIUM SULFATE PREMIX 2GM 50 ML IVPB ONE (14:15)
[2016-08-18] MEDS ORDERED: GLUCAGON INJ 1 MG VIAL SUBCU PRN (14:19)
[2016-08-18] MEDS ORDERED: DEXTROSE 50% 25 GM/50 ML SYG IV PRN (14:19)
[2016-08-18] MEDS ORDERED: INSULIN DETEMIR 100 UNITS/ML PEN SUBCU ONE (14:25)
[2016-08-18] MEDS ORDERED: POTASSIUM PHOSPHATES IVPB ONE (14:30)
[2016-08-18] MEDS: PREGABALIN 75 MG CAP PO SCH ×2 (14:30→21:12)
[2016-08-18] MEDS ORDERED: SODIUM CHLORIDE 0.9% IVPB ONE (14:30)
[2016-08-18] MEDS: ESCITALOPRAM 10 MG TAB PO SCH (14:31)
[2016-08-18] MEDS ORDERED: MAGNESIUM SULFATE PREMIX 2GM 2 GM in PREMIX BAG 1 BAG IVPB ONE (14:49)
[2016-08-18] MEDS ORDERED: SODIUM CHLORIDE 0.9% 250ML 250 ML ONE (14:53)
[2016-08-18] MEDS ORDERED: POTASSIUM PHOSPHATES INJ 22 MEQ/5 ML VIAL IVPB ONE (14:54)
[2016-08-18] MEDS: HYDROcodone 10MG/APAP 325MG 1 EA TAB PO PRN ×2 (15:08→21:12)
[2016-08-18] MEDS ORDERED: PROMETHAZINE HCL INJ 25 MG/ML VIAL ONE (17:02)
[2016-08-18] MEDS ORDERED: SODIUM CHLORIDE 0.9% 50ML 50 ML ONE (17:02)
[2016-08-18] MEDS: PROMETHAZINE HCL INJ 25 MG in SODIUM CHLORIDE 0.9% 50ML 50 ML IVPB PRN (17:09)
[2016-08-18] MEDS: GENTAMICIN OPTH OINT 0.3% 3.5 GM TUBE LEFT_EYE SCH ×2 (17:13→21:13)
--- NOTE | 2016-08-18 18:00 | RAD ---
EXAM DESCRIPTION: XR ABDOMEN 2 VIEWS SUPINE ERECT CLINICAL HISTORY: 40-year-old female with abdominal pain and nausea. COMPARISON: None. TECHNIQUE: Two views of the abdomen were obtained in upright and supine positioning. FINDINGS: Gas is seen within normal caliber large bowel. Paucity of small bowel air. Large volume of fecal material overlying the pelvis. No free air is identified. There are no abnormal calcifications. The osseous structures are within normal limits. The lung bases are clear. IMPRESSION: Abdominal bowel gas pattern within normal limits. Electronically signed by: Justa Paniagua MD 08/18/2016 17:58
--- NOTE | 2016-08-18 19:27 | PN ---
DATE: 08/18/16 SUPERVISING PHYSICIAN: Can Macdonald M.D. SUBJECTIVE: The patient is lying in her hospital bed. She appears tired. She complains of continuing nausea but has had no vomiting today. She has tolerated her full liquid diabetic diet well. She has also tolerated taking her p.o. medications today. She denies any chest pain or shortness of breath. OBJECTIVE: VITAL SIGNS: She is afebrile, heart rate 88, blood pressure 120/73, respiratory rate 18, O2 sat 97% on room air. GENERAL: This is a 40 year-old female who is lying in her hospital bed. She is in no acute distress. CHEST: Clear to auscultation bilaterally. CARDIAC: Regular rate and rhythm. ABDOMEN: Soft, nondistended, non-tender. bowel sounds are positive. EXTREMITIES: No cyanosis, clubbing or edema. NEUROLOGIC: She is awake, alert and oriented times three. LABORATORY: WBCs have normalized to 7.7, hemoglobin 11.5, hematocrit 35.9. Her 5:15 labs show sodium 134, chloride 113, carbon dioxide 13, anion gap 11.9, BUN 7, creatinine 0.54, glucose 172, magnesium 1.5. Her 9:00 AM sodium was 133 , potassium 4.3, chloride 111, carbon dioxide 11, anion gap 15.3, BUN 6, creatinine 0.69, glucose 226, serum osmolality 271.1, calcium 7.9, magnesium 1.5. Her 1:00 PM laboratory was sodium 134, potassium 3.5, chloride 112, carbon dioxide 18, anion gap 7.5, BUN less than 5, creatinine 0.63, glucose 231 , serum osmolality 272.9, calcium 8.1, phosphorus 1.7, magnesium 1.4. Her serum ketones at 2:00 PM were negative. All other labs and films have been reviewed via the EMR. ASSESSMENT: 1. Diabetic ketoacidosis most likely secondary to persistent nausea and vomiting for 2 days prior to admission and poor management of her insulin therapy with poor oral intake. 2. Acute metabolic acidosis secondary to number 1. 3. Intractable nausea and vomiting that has now mostly resolved. She continues to have some residual nausea. 4. Severe dehydration secondary to diabetic ketoacidosis. She has received 6 liters of normal saline since admission. 5. Type 1 diabetes mellitus poorly controlled with a history of noncompliance and multiple admissions for diabetic ketoacidosis. 6. Chronic obstructive pulmonary disease. 7. Chronic eczema. 8. Chronic tobacco abuse. 9. Chronic lower back pain receiving treatments with narcotics from a clinic in [place]. 10. Peripheral neuropathy. 11. Chronic fibromyalgia. 12. Chronic anxiety disorder. 13. Leukocytosis that has now resolved. PLAN: Her acidosis has resolved as evidenced by her negative serum ketones. She had received subcutaneous insulin throughout the night and is now being converted to a.c. and h.s. sliding scale insulin. I have restarted all of her home medications. Her phosphorus was quite low so I am giving her some potassium phosphorus as well as some IV magnesium. I will recheck her BMP, phosphorus and magnesium at 8:00 PM. I will also give her 20 units of long- acting insulin now and she can restart her long-active insulin in the morning. Hopefully her nausea will resolve overnight. I will continue with her Zofran and Phenergan. At this point, she is on a full liquid diabetic diet at her request, but we will advance it as she can tolerate it. Expecting discharge tomorrow morning. Dr. Macdonald is the collaborating physician. I have discussed her case at length with him and we agree on the present plan of care. #[id number] [facility]
[2016-08-18] MEDS ORDERED: DIVALPROEX SODIUM ER 500 MG TAB PO ONE (19:47)
[2016-08-18] MEDS ORDERED: ENOXAPARIN SODIUM 40 MG/0.4 ML SYG SUBCU ONE (19:48)
[2016-08-18] MEDS ORDERED: ZOLPIDEM TARTRATE 10 MG TAB ONE (19:49)
[2016-08-18] MEDS ORDERED: diazePAM 5 MG TAB ONE (19:49)
[2016-08-18] MEDS: ZOLPIDEM TARTRATE 10 MG TAB PO SCH (21:12)
[2016-08-18] MEDS: ENOXAPARIN SODIUM 40 MG/0.4 ML SYG SUBCU SCH (21:12)
[2016-08-18] MEDS: diazePAM 5 MG TAB PO SCH (21:12)
[2016-08-18] MEDS: DIVALPROEX SODIUM ER 500 MG TAB PO SCH (21:12)
[2016-08-18] MEDS: SODIUM CHLORIDE 0.9% (FLUSH) 10 ML SYG IV PRN (21:12)
--- NOTE | 2016-08-19 00:15 | PCM.CORE ---
Physician DVT/VTE - Prophylaxis Currently: Patient already on anticoagulation therapy - Nurse DVT Assessment & Total Each Risk Factor Represents 1 Point: Hx of smoking past year DVT Assessment Score: 1 - 0-1 Low Risk Treatments: Early Ambulation, Low Risk no further treatment or intervention needed
[2016-08-19] MEDS: ONDANSETRON INJ 4 MG/2 ML VIAL IV PRN ×2 (05:35→10:19)
[2016-08-19] MEDS: HYDROcodone 10MG/APAP 325MG 1 EA TAB PO PRN ×4 (05:36→20:32)
[2016-08-19] MEDS: SODIUM CHLORIDE 0.9% (FLUSH) 10 ML SYG IV PRN ×2 (05:36→06:55)
[2016-08-19] MEDS: PANTOPRAZOLE SODIUM IV 40 MG VIAL IV SCH (06:55)
[2016-08-19] MEDS: INSULIN LISPRO 100 UNITS/ML PEN SUBCU SCH ×4 (07:24→21:13)
[2016-08-19] MEDS ORDERED: INSULIN DETEMIR 100 UNITS/ML PEN SUBCU SCH (09:00)
[2016-08-19] MEDS: ESCITALOPRAM 10 MG TAB PO SCH (09:31)
[2016-08-19] MEDS: PREGABALIN 75 MG CAP PO SCH ×3 (09:31→20:32)
[2016-08-19] MEDS: GENTAMICIN OPTH OINT 0.3% 3.5 GM TUBE LEFT_EYE SCH ×4 (09:31→21:14)
[2016-08-19] MEDS ORDERED: HYDROcodone 10MG/APAP 325MG 1 EA TAB PO ONE (09:35)
[2016-08-19] MEDS ORDERED: INSULIN DETEMIR 100 UNITS/ML PEN SUBCU ONE (09:58)
--- NOTE | 2016-08-19 14:53 | PN ---
DATE: 08/19/16 SUBJECTIVE: The patient is a 40 year-old white female with chronic complications of diabetes with recurring diabetic ketoacidosis. In months and years before, she would usually stop her insulin whenever she became nauseated, but after further instructions she has now tried to continue, though if not eating maybe at a slightly reduced dosage in an effort to try to prevent some of these ketoacidotic episodes. Her nausea is associated with left sided abdominal pain all the way up under the diaphragm extending down towards the left lower quadrant. Bowel movements are fairly normal with no gross blood present,but the emesis has been a real problem. Her last CT scan was performed about 4 months ago and revealed a grossly enlarged stomach with significant gastric retention present as well as small bowel thickening of the wall of an undetermined etiology with followup suggested. She is a little more hungry today and her diet is slowly advanced. OBJECTIVE: Afebrile, pulse 65, blood pressure 133/78, room air saturation 99%. LUNGS: Generally clear. HEART: Tones regular. ABDOMEN: Somewhat tender to the left of midline and diminished bowel tones present. EXTREMITIES: Otherwise fairly well formed with no calf tenderness upon compression. No pedal edema. ASSESSMENT: 1. Acute diabetic ketoacidosis associated and possibly aggravated by significant nausea and vomiting with abdominal pain with onset a couple of days before admission with recurrent nature having recently been in the hospital with the patient admitting at least 11 hospital admissions over the last year for similar symptoms. 2. Acute metabolic acidosis secondary to number 1. 3. Intractable nausea and vomiting possibly contributed to by the diabetic ketoacidosis yet possibly contributing to it because of underlying gastrointestinal pathology possibly pointing towards diabetic gastroparesis versus an inflammatory bowel disease with previously noted thickened small bowel be on most recent CT scan of the abdomen 4 months ago. 4. Severe dehydration requiring parenteral fluid resuscitation. 5. Chronic diabetes mellitus type 1 insulin dependent with history of noncompliance with multiple admissions. 6. Chronic obstructive pulmonary disease in a chronic smoker. 7. Chronic low back pain receiving treatment with chronic narcotics/ opioids, [place] in specifics from a clinic most recently in [place] but not being followed there anymore because of missing appointments. 8. Peripheral neuropathy. 9. Chronic fibromyalgia. 10. Chronic anxiety disorder. 11. Leukocytosis, improved. PLAN: The patient has been followed by an endocrine clinic in [place], but because she missed 2 appointments they no longer are available to assist with her care. She has been receiving pain medications and followup from pain clinics in [place], most recently in [place], [place] before, but they are no longer able to work with her because she has missed several clinic appointments. Because of the abdominal pain, some abnormalities with marked gastric retention on CT scan 4 months ago as well as small bowel thickened wall , will repeat another abdominal pelvic CT scan with IV contrast with normal renal function to more fully evaluate and to assist with gastrointestinal evaluation and further intervention as indicated. She will have close followup with Dr. Rangel when she is discharged and will discuss with him further plans of care. In the meantime her diet is advanced. Instead of taking 40 units of Levemir which she had yesterday, she is only given 30 and will continue with the sliding scale today in an attempt to prevent the hypoglycemic episodes documented this morning. Continue with a trial of Reglan 5 mg a.c. and h.s., and continue to observe for gastric emptying and for evaluation of abdominal pain that she has persistently had. May benefit from colonoscopy and specialized gastroenterological evaluation and followup under Dr. Rangel's direction. #[id number] [facility]
[2016-08-19] MEDS: METOCLOPRAMIDE HCL 5 MG TAB PO SCH ×2 (15:52→20:32)
[2016-08-19] MEDS ORDERED: SODIUM CHLORIDE 0.9% 50ML 50 ML ONE (20:18)
[2016-08-19] MEDS ORDERED: PROMETHAZINE HCL INJ 25 MG/ML VIAL ONE ×3 (20:18→20:52)
[2016-08-19] MEDS: PROMETHAZINE HCL INJ 25 MG in SODIUM CHLORIDE 0.9% 50ML 50 ML IVPB PRN (20:30)
[2016-08-19] MEDS: SODIUM CHLORIDE 0.9% (FLUSH) 10 ML SYG IV SCH (20:31)
[2016-08-19] MEDS: ENOXAPARIN SODIUM 40 MG/0.4 ML SYG SUBCU SCH (20:31)
[2016-08-19] MEDS: ZOLPIDEM TARTRATE 10 MG TAB PO SCH (20:32)
[2016-08-19] MEDS: diazePAM 5 MG TAB PO SCH (20:32)
[2016-08-19] MEDS: DIVALPROEX SODIUM ER 500 MG TAB PO SCH (20:32)
[2016-08-20] MEDS: HYDROcodone 10MG/APAP 325MG 1 EA TAB PO PRN ×2 (01:55→08:49)
[2016-08-20] MEDS: PANTOPRAZOLE SODIUM IV 40 MG VIAL IV SCH (06:06)
[2016-08-20] MEDS: SODIUM CHLORIDE 0.9% (FLUSH) 10 ML SYG IV PRN (06:06)
[2016-08-20] MEDS: INSULIN LISPRO 100 UNITS/ML PEN SUBCU SCH ×2 (07:39→11:40)
--- NOTE | 2016-08-20 07:50 | CT ---
EXAM DESCRIPTION: CT ABDOMEN PELVIS WITH IV CONTRAST CLINICAL HISTORY: Vomiting, Lt Abd pains,DM-1 COMPARISON: None Available TECHNIQUE: CT of the abdomen and Pelvis was performed with IV contrast. FINDINGS: The gallbladder and appendix are surgically absent. There is some dependent atelectasis in the lung bases bilaterally. No adenopathy, ascites or pneumoperitoneum. Bilateral inguinal lymph nodes are noted, but none are pathologically enlarged. The liver, spleen, pancreas, adrenals and kidneys are unremarkable. Wall and fold thickening involves a few left-sided small bowel loops suggestive of enteritis. There is a moderate amount of stool and gas scattered throughout the colon without colonic wall thickening or pericolonic inflammation. No suspicious bone lesion. IMPRESSION: Wall and fold thickening involving a few small bowel loops in the left mid abdomen, nonspecific but suggestive of enteritis. No obstruction, pneumoperitoneum or other acute complication. No additional abnormality to explain patient's symptoms.. Electronically signed by: Abel Hagen DO 08/20/2016 07:48
[2016-08-20] MEDS: SODIUM CHLORIDE 0.9% (FLUSH) 10 ML SYG IV SCH (08:43)
[2016-08-20] MEDS: PREGABALIN 75 MG CAP PO SCH (08:44)
[2016-08-20] MEDS: GENTAMICIN OPTH OINT 0.3% 3.5 GM TUBE LEFT_EYE SCH (08:44)
[2016-08-20] MEDS ORDERED: ESCITALOPRAM 10 MG TAB PO SCH (09:00)
[2016-08-20] MEDS ORDERED: POTASSIUM CHLORIDE 10 MEQ TAB PO SCH (09:30)
[2016-08-20] MEDS ORDERED: INSULIN DETEMIR 100 UNITS/ML PEN SUBCU ONE (10:11)
[2016-08-20 10:40] VITALS: BP 148/78; TEMP 98.4
[2016-08-20] MEDS: METOCLOPRAMIDE HCL 5 MG TAB PO SCH (11:18)
[2016-08-20 13:00] VITALS: O2SAT 97
--- NOTE | 2016-08-20 14:03 | DS ---
DISCHARGE DIAGNOSIS: 1. Acute diabetic ketoacidosis associated and possibly aggravated by significant nausea and vomiting with abdominal pain, requiring repeat hospital admissions over the past several months. 2. Intractable nausea and vomiting initially with abdominal pain, possibly related to several etiologies, including the acute diabetic ketoacidotic condition that she presents with, peptic ulcer disease, or gastritis of the stomach. 3. Chronic opioid/hydrocodone usage for chronic pain state. 4. Small bowel enteritis, documented on CT exam, possibly contributing to the pain and the nausea. Mild fecal stasis with constipation may be contributing. 5. Severe dehydration requiring parenteral fluid resuscitation, no doubt directly related to the metabolic acidosis the patient presents with. 6. Chronic diabetes mellitus, type 1, insulin dependent with a history of poor compliance on multiple admissions. 7. Chronic obstructive pulmonary disease in a chronic smoker and encouraged to stop all smoking completely. 8. Chronic low back pain and myalgias around the body, currently on chronic narcotics and opioid pain medication usage, recently being followed by a pain clinic in [place], but not being followed there anymore because of missed appointments. 9. Symptomatic peripheral neuropathy, showing some improvement some of the medications. 10. Chronic fibromyalgia. 11. Chronic anxiety disorder and drug seeking behavior. 12. Leukocytosis, improved. HISTORY OF PRESENT ILLNESS: This 40-year-old, white female was admitted to the hospital from the Emergency Room because of protracted nausea and vomiting which recurred since her last discharge a few days earlier from the hospital with diabetic ketoacidosis as diagnosis. She was seen earlier on the day of admission at Dr. Rangel's office and he referred her to the Emergency Room for specific assistance and help. Initial sugars were over 450 and she was noticeably metabolic acidotic with hyperventilation. Her initial pH was 7.13. She received 3 liters of fluid in the Emergency Room and her sugars improved to about 200. Her bicarb was very low as a result of the significant metabolic acidosis. She was admitted to the hospital for continued supportive care. She had additional IV hydration and fluid support and the was eventually advanced to a more regular soft diabetic diet with adjustment of insulin as required. LABORATORY: White count 19,100 with 83% neutrophils, decreasing to 5,900 with 42.7% neutrophils. Hemoglobin 11.8 after hydration. Blood gasses showed pH 7.13 up to 7.22 after fluids. Bicarb was 4.4 up to 8.3 and CO2 was 14 up to 21. Chemistries showed initial sugar 458 and with continued treatment was down to the 50s and 60s and up to 116 fasting on the day of discharge. Initial potassium was 5.6 in an acidotic state and it was corrected, it did drop down to 3.2 with further supplementation to be continued. CO2 increased from a low of 8 up to 24. Creatinine was 0.88 and was down to 0.46 before discharge. Albumin 4.3. Urinalysis did show glycosuria, some hematuria, some bilirubinemia and positive ketones. Urine drug screen was positive for benzodiazepines and serum ketones was negative. Urine culture was negative. MRSA showed no growth. In the hospital, abdominopelvic CT scan was performed on the day of discharge specifically to followup on the size of the stomach which had significantly improved since April of this past year on her last exam. Persistence of small bowel loops of thickened wall small bowel suggests enteritis, yet no obstruction was evident and moderate fecal stasis was noted. Further GI followup is encouraged. HOSPITAL COURSE: The patient was feeling much improved on the morning of discharge and was ready to continue with outpatient followup with Dr. Rangel's office. The etiology, the pathophysiology, as well as the treatment course was discussed at length with the patient as well as her parents. PLAN: Discharged home with parents today until feeling better before she can return to living at home alone. She will continue with diabetic diet and closely advance and try to spread her calories out during the day. She was initially started on Levemir 35 units per day. This will be adjusted depending upon her diabetic management options. She will keep in close touch with Dr. Rangel's clinic for advice. She is to see Dr. Rangel tomorrow in the [place] office at 4:30 PM and the parents will assist in getting her there. Home medications will be continued with the Levemir adjustment of medications noted. New medicines include Reglan 5 mg before meals and at bedtime, Prilosec 20 mg daily, Micro-K 20 mEq every morning for 30 pills and Phenergan tablets 25 mg q.6h. p.r.n. nausea. Again, encouraged strongly to minimize the hydrocodone pain or opioid pain medications. She is to call Dr. Rangel's office at if questions arise. Dr. Rangel will help arrange followup with endocrine for diabetic management, GI for evaluation of possible gastroparesis as well as small bowel enteritis contributing to some of her symptoms as well as with pain clinic followup to assist with chronic pain management in an effort to try to get her down and off of a lot of the medicines she is currently taking. She must stop all smoking. She may try nicotine patches to help stop the smoking. Adjust her insulin administration to best manage the diabetes, drink plenty of fluids, adhere closely to the diabetic diet, try to minimize the opioid pain medication intake. Try multivitamins as well as vitamin C at 2 grams daily and B complex daily. Try Murine or Visine in the infected eye 4 times daily until better. Return if not improving. Close followup and management necessary. #[id number] [facility]
[2016-08-21] MEDS ORDERED: PANTOPRAZOLE SODIUM TAB 40 MG PO SCH (06:30)
== END 2016-08-20 11:45 | disposition home or self-care (01) | DRG 639 ==
LOC: ER 11:23 → MS 19:25
PROVIDERS: ADMIT Nurse Practitioner Acute Care; ATTEND Emergency Medicine
PROC: BW21YZZ Computerized Tomography (CT Scan) of Abdomen and Pelvis using Other Contrast (ICD-10-PCS; principal; 2016-08-19)
DX: E10.10 Type 1 diabetes mellitus with ketoacidosis without coma (principal); G89.29 Other chronic pain; K52.9 Noninfective gastroenteritis and colitis, unspecified; E86.0 Dehydration; J44.9 Chronic obstructive pulmonary disease, unspecified; F17.210 Nicotine dependence, cigarettes, uncomplicated; M54.5 Low back pain; M79.7 Fibromyalgia; F41.9 Anxiety disorder, unspecified; L30.9 Dermatitis, unspecified; K21.9 Gastro-esophageal reflux disease without esophagitis; E10.42 Type 1 diabetes mellitus with diabetic polyneuropathy; Z76.5 Malingerer [conscious simulation]; Z91.19 Patient's noncompliance with other medical treatment and regimen; Z91.010 Allergy to peanuts; Z91.012 Allergy to eggs; Z91.013 Allergy to seafood; Z79.891 Long term (current) use of opiate analgesic; Z79.4 Long term (current) use of insulin; Z79.899 Other long term (current) drug therapy; Z86.14 Personal history of Methicillin resistant Staphylococcus aureus infection

== ENCOUNTER → 2016-12-11 | Outpatient (CLI) | payer MEDICARE, MEDICAID ==
--- NOTE | 2016-12-12 13:45 | RAD ---
EXAM DESCRIPTION: Chest,2 Views CLINICAL HISTORY: 41 years,Female,BRONCHITIS COMPARISON: August 17, 2016 FINDINGS: There are no consolidations. No effusions. No pneumothoraces. No nodules. Bony elements unremarkable for age. IMPRESSION: Unremarkable chest for age stable Electronically signed by: Candido Stovall MD 12/12/2016 1:45 PM CDT
== END ==
LOC: YCFC.O 17:40
PROVIDERS: ATTEND Nurse Practitioner Family
DX: J42 Unspecified chronic bronchitis (principal)

== ENCOUNTER 2016-12-18 20:39 | Observation (INO) | payer MEDICARE, MEDICAID ==
[2016-12-18] MEDS ORDERED: HYDROmorphone HCL INJ 2 MG/ML VIAL IV ONE ×2 (21:01→22:41)
[2016-12-18] MEDS ORDERED: SODIUM CHLORIDE 0.9% 1000ML 1,000 ML IVS ONE ×2 (21:01→22:41)
[2016-12-18] MEDS ORDERED: ONDANSETRON INJ 4 MG/2 ML VIAL IV ONE ×2 (21:01→22:41)
--- NOTE | 2016-12-18 21:06 | ED.PDOC ---
History of Present Illness - General Chief Complaint: GI Problem Stated Complaint: vomiting Time Seen by Provider: 12/18/16 21:00 Information Source: patient, RN notes reviewed, Vital Signs reviewed Exam Limitations: no limitations - History of Present Illness Initial Comments: Patient started with L sided abdominal pain 3 days ago. Pain is a sharp, stabbing pain. 8/10. This morning started with nausea, vomiting and diarrhea. No fever or chills. + TRAN. Denies urinary symptoms. Concerned she may have DKA. Blood sugar at home 400, took 10U of Reg insulin. Abdominal Pain Onset Location: LUQ, LLQ Pain Radiation: no radiation Quality: severe, sharpness, stabbing Timing/Duration: days - 3 Improving Factors: nothing Worsening Factors: nothing Associated Symptoms: diarrhea, headache, nausea/vomiting Review of Systems - Review of Systems Constitutional: States: malaise. Denies: chills, fever EENTM: States: no symptoms reported Respiratory: States: no symptoms reported Cardiology: States: no symptoms reported Gastrointestinal/Abdominal: States: see HPI, abdominal pain, diarrhea, nausea, vomiting Genitourinary: States: no symptoms reported. Denies: dysuria, frequency, pain Musculoskeletal: States: no symptoms reported Skin: States: no symptoms reported Neurological: States: headache Endocrine: States: no symptoms reported Hematologic/Lymphatic: States: no symptoms reported Past Medical History (General) - Patient Medical History Hx Seizures: Yes Hx Stroke: No Hx Dementia: No Hx Asthma: No Hx of COPD: No Hx Cardiac Disorders: Yes Hx Congestive Heart Failure: No Hx Pacemaker: No Hx Hypertension: No Hx Thyroid Disease: No Hx Diabetes: Yes Hx Gastroesophageal Reflux: Yes Hx Renal Disease: No Hx Cancer: No Hx of HIV: No Hx Hepatitis C: No Hx MRSA: Yes MRSA Source:: Blood - Vaccination History Hx Tetanus, Diphtheria Vaccination: No Hx Influenza Vaccination: No Hx Pneumococcal Vaccination: No - Social History Hx Tobacco Use: No Hx Chewing Tobacco Use: No Hx Alcohol Use: No Hx Substance Use: No Hx Substance Use Treatment: No Hx Depression: Yes Hx Physical Abuse: No Hx Emotional Abuse: No Hx Suspected Abuse: No - Female History Hx Last Menstrual Period: 11/05/11 Patient : No Family Medical History - Family History Mother Family History: No Known Name: April Age (years): 67 Living Status: Still Living Hx Family Asthma: No Hx Family Congestive Heart Failure: No Hx Family Hypertension: No Hx Family Stroke: No Hx Cardiac Disease: No Hx Family Diabetes: No Hx Family Cancer: No Father Family History: No Known Name: Marlon Age (years): 65 Living Status: Still Living Hx Family Asthma: No - Sister Hx Family Congestive Heart Failure: No Hx Family Hypertension: No Hx Family Stroke: No Hx Cardiac Disease: No - Grandfather. Hx Family Diabetes: No - Pt Age of Onset (years of age): 33 Hx Family Cancer: Yes - Grandmother Lympoma Physical Exam - Physical Exam General Appearance: Alert, Ill Appearing, Well Developed, Well Groomed, Well Nourished Eyes, Ears, Nose, Throat Exam: other - dry mucous membranes Neck: non-tender, full range of motion, supple, normal inspection Respiratory: chest non-tender, lungs clear, normal breath sounds, no respiratory distress, no accessory muscle use Cardiovascular/Chest: regular rate, rhythm, no edema, no gallop, no murmur Gastrointestinal/Abdominal: normal bowel sounds, no organomegaly, guarding - L side, tenderness - LUQ & LLQ Back Exam: CVA tenderness (L) Extremity: normal range of motion, normal inspection, no pedal edema Neurologic: alert, normal mood/affect, oriented x 3 Skin Exam: normal color, warm/dry Progress - Progress Progress: 12/18/16 22:40 Labs show mild pancreatitis and sm. serum ketones with BS of 452. Discussed with Dr. Cody regarding possible admission. Awaiting to hear back. Patient reports pain is starting to return. Will give a second L of NS and another dose of Dilaudid and Zofran. 12/19/16 00:01 Patient has started vomiting again. Will give Phenergan. - Results/Orders Results/Orders: Laboratory Tests 12/18/16 12/18/16 12/18/16 21:05 21:10 21:10 WBC 9.4 RBC 5.40 Hgb 14.3 Hct 43.6 MCV 80.7 L MCH 26.4 L MCHC 32.8 L RDW 13.8 Plt Count 314 MPV 9.1 Absolute Neuts (auto) 6.60 Absolute Lymphs (auto) 2.20 Absolute Monos (auto) 0.50 Absolute Eos (auto) 0.10 Absolute Basos (auto) 0.00 Neutrophils % 70.4 Lymphocytes % 22.8 Monocytes % 5.4 Eosinophils % 1.0 Basophils % 0.4 Sodium 133 L Potassium 4.0 Chloride 102 Carbon Dioxide 18 L Anion Gap 17.0 BUN 10 Creatinine 0.63 BUN/Creatinine Ratio 15.9 POC Glucose 363 H Random Glucose 452 H* Serum Osmolality 285.1 Calcium 9.3 Total Bilirubin 0.8 AST 14 ALT 22 Alkaline Phosphatase 97 Serum Total Protein 7.9 Albumin 4.4 Globulin 3.5 Albumin/Globulin Ratio 1.3 Amylase 115 H Lipase 169 H Urine Color Urine Appearance Urine pH Ur Specific [place] Urine Protein Urine Glucose (UA) Urine Ketones Urine Blood Urine Nitrite Urine Bilirubin Urine Urobilinogen Ur Leukocyte Esterase Urine RBC Urine WBC Ur Epithelial Cells Urine Bacteria Serum Ketones Small 12/18/16 21:20 WBC RBC Hgb Hct MCV MCH MCHC RDW Plt Count MPV Absolute Neuts (auto) Absolute Lymphs (auto) Absolute Monos (auto) Absolute Eos (auto) Absolute Basos (auto) Neutrophils % Lymphocytes % Monocytes % Eosinophils % Basophils % Sodium Potassium Chloride Carbon Dioxide Anion Gap BUN Creatinine BUN/Creatinine Ratio POC Glucose Random Glucose Serum Osmolality Calcium Total Bilirubin AST ALT Alkaline Phosphatase Serum Total Protein Albumin Globulin Albumin/Globulin Ratio Amylase Lipase Urine Color Yellow Urine Appearance Clear Urine pH 5.0 Ur Specific [place] 1.010 Urine Protein Negative Urine Glucose (UA) 500 H Urine Ketones >=160 Urine Blood Small H Urine Nitrite Negative Urine Bilirubin Negative Urine Urobilinogen 0.2 Ur Leukocyte Esterase Negative Urine RBC 1-3 Urine WBC 0-1 Ur Epithelial Cells 1-3 Urine Bacteria Rare Serum Ketones - EKG/XRAY/CT CT Ordered: Yes CT Interpretation Call Back: No - Abd/Pelvis: no acute intraabdominal process per Radiology Departure - Departure Clinical Impression: Diabetes mellitus type 1, uncontrolled, insulin dependent Acute pancreatitis Qualifiers: Pancreatitis type: unspecified pancreatitis type Qualified Code(s): K85.9 - Acute pancreatitis, unspecified Time of Disposition: 00:23 Disposition: Admit Patient Condition: Poor Departure Forms: ED Discharge - Pt. Copy, Patient Portal Self Enrollment Referrals: Joby Rangel MD [Primary Care Provider] - 1-2 Weeks Home Medications: Ambulatory Orders Escitalopram Oxalate [Lexapro] 40 mg PO MOWEFR 06/22/15 Insulin Lispro [Humalog] See Protocol SC ACHS PRN 06/22/15 Escitalopram [Lexapro] 20 mg PO SUTUTHSA 04/09/16 Zolpidem Tartrate [Ambien] 10 mg PO BEDTIME 04/09/16 Diazepam [Valium] 10 mg PO DAILY #10 tab 08/11/16 Acetaminophen W/ Codeine [Acetaminophen/Codeine #3 300-30 mg] 1 tab PO Q4H PRN 08/18/16 Divalproex Sodium ER [Depakote ER] 500 mg PO BEDTIME 08/18/16 Pregabalin [Lyrica] 150 mg PO TID 08/18/16 HYDROcodone 10MG/APAP 325MG [[place] 10/325] 1 tab PO Q8H PRN #0 08/20/16 Insulin Detemir [Levemir Pen] 35 units SUBCU ONCE #0 pen 08/20/16 Metoclopramide Tab [Reglan Tab] 5 mg PO ACHS #120 tab 08/20/16 Promethazine Tab [Phenergan Tablet] 25 mg PO Q6H PRN #30 tab 08/20/16 Tizanidine HCl [Zanaflex] 1 dose PO TID 12/18/16 Vicoprofen 1 dose PO PRN PRN 12/18/16 Decision To Admit - Decistion To Admit Decision to Admit Reason: Admit from ER Decision to Admit Date: 12/19/16 Decision to Admit Time: 00:22
--- NOTE | 2016-12-18 21:47 | CT ---
EXAM: Abdoment/Pelvis w/o Contrast CLINICAL INDICATION: 41-year-old female with left-sided abdominal pain with nausea, vomiting and diarrhea. COMPARISON: 08/20/2016. EXAMINATION: CT of the abdomen and pelvis was performed without intravenous or oral contrast. Multiplanar reformatted images were provided. This exam was performed according to our departmental dose optimization program which includes use of automated exposure control, adjustment of the mA and/or kV according to patient size and/or use of iterative reconstruction technique. FINDINGS: Evaluation of solid organ pathology is limited secondary to lack of intravenous contrast. Within these limitations, the following observations are made. Chest: Evaluation through the lung bases reveals no focal opacity, pleural effusion or pneumothorax. Heart size is within normal limits. No pericardial effusion. Abdomen and pelvis: The liver, pancreas, spleen, bilateral kidneys and bilateral adrenal glands are within normal limits. Surgical clips at the level of the gallbladder fossa status post cholecystectomy. The vessels are normal in caliber. No abdominopelvic lymph nodes are noted to be pathologically enlarged by CT measurement criteria. The bowel is within normal limits with fecal debris present throughout the large bowel. There is no abnormal bowel wall thickness or bowel dilation. No free air. No free abdominopelvic fluid collections. The appendix is nonvisualized. Surgical clips present at the level of the cecum. The osseous structures are within normal limits. L2 bilateral pars interarticularis defects. IMPRESSION: 1. No specific acute intra-abdominal findings are noted to suggest etiology of the patient's abdominal pain. Electronically signed by: Justa Paniagua MD 12/18/2016 9:47 PM CDT
[2016-12-19] MEDS ORDERED: PROMETHAZINE HCL INJ 25 MG in SODIUM CHLORIDE 0.9% 50ML 50 ML IVPB ONE ×2
[2016-12-19] MEDS ORDERED: PROMETHAZINE HCL INJ 25 MG/ML VIAL ONE ×5 (00:04→22:52)
[2016-12-19] MEDS ORDERED: SODIUM CHLORIDE 0.9% 50ML 50 ML ONE ×4 (00:05→22:52)
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
[2016-12-19] MEDS ORDERED: HYDROcodone 5MG/APAP 325MG 1 EA TAB PO PRN (01:05)
[2016-12-19] MEDS ORDERED: ONDANSETRON INJ 4 MG/2 ML VIAL IV PRN (01:05)
[2016-12-19] MEDS ORDERED: DEXTROSE 50% 25 GM/50 ML SYG IV PRN (01:05)
[2016-12-19] MEDS ORDERED: GLUCAGON INJ 1 MG VIAL SUBCU PRN (01:05)
[2016-12-19] MEDS ORDERED: SODIUM CHLORIDE 0.9% (FLUSH) 10 ML SYG IV PRN (01:05)
[2016-12-19] MEDS ORDERED: ALUM & MAG HYDROX-SIMETHICONE 30 ML UD PO PRN (01:05)
[2016-12-19] MEDS ORDERED: HYDROcodone 7.5MG/APAP 325MG 1 EA TAB PO PRN (01:16)
[2016-12-19] MEDS ORDERED: ESCITALOPRAM OXALATE 40 MG PO SCH (01:30)
[2016-12-19] MEDS ORDERED: IV SET AND CAP CHANGE INJ INJ SCH (01:30)
[2016-12-19] MEDS ORDERED: SODIUM CHL 0.9% 50ML MIN-BAG+ 50 ML IVPB ONE (02:05)
[2016-12-19] MEDS ORDERED: ESCITALOPRAM 10 MG TAB ONE (02:05)
[2016-12-19] MEDS ORDERED: SODIUM CHLORIDE 0.9% 1000ML 1,000 ML ONE ×2 (02:05→06:01)
[2016-12-19] MEDS ORDERED: INSULIN, REG.(HUMAN) 100 U/ML VIAL ONE (02:06)
[2016-12-19] MEDS: SODIUM CHLORIDE 0.9% 1000ML 1,000 ML IVS PRN ×2 (02:10→06:03)
[2016-12-19] MEDS: METOCLOPRAMIDE HCL INJ 10 MG/2 ML VIAL IV SCH ×3 (02:10→14:05)
[2016-12-19] MEDS: PROMETHAZINE HCL INJ 12.5 MG in SODIUM CHLORIDE 0.9% 50ML 50 ML IVPB PRN ×4 (02:10→22:54)
[2016-12-19] MEDS: HYDROmorphone HCL INJ 2 MG/ML VIAL IV PRN ×5 (02:10→22:28)
[2016-12-19] MEDS: INSULIN LISPRO 100 UNITS/ML PEN SUBCU SCH ×5 (03:04→21:23)
[2016-12-19] MEDS ORDERED: KCL 30MEQ/D5 1/2NS 1,000 ML IVS PRN (08:10)
[2016-12-19] MEDS ORDERED: DEX 5% W/NACL 0.45% 1000ML 1,000 ML IVS ONE ×2 (08:45→20:03)
[2016-12-19] MEDS ORDERED: POTASSIUM CHLORIDE 40mEq 20ML VIAL ONE ×2 (08:46→20:03)
[2016-12-19] MEDS ORDERED: POTASSIUM CHLORIDE 20mEq 10ML VIAL IV SCH (09:00)
[2016-12-19] MEDS ORDERED: TIZANIDINE HCL PO SCH (09:00)
[2016-12-19] MEDS: PREGABALIN 75 MG CAP PO SCH ×3 (09:08→20:10)
[2016-12-19] MEDS ORDERED: POTASSIUM CHLORIDE IVS PRN (09:19)
[2016-12-19] MEDS ORDERED: [UNRECOGNIZED DRUG - OTHER] IVS PRN (09:19)
[2016-12-19] MEDS ORDERED: tiZANidine 4 MG TAB ONE (09:21)
[2016-12-19] MEDS: tiZANidine 4 MG TAB PO SCH ×3 (09:51→20:10)
[2016-12-19] MEDS: POTASSIUM CHLORIDE IVS PRN ×3 (09:58→20:20)
[2016-12-19] MEDS: NACL 0.45% IVS PRN ×3 (09:58→20:20)
[2016-12-19] MEDS: DEX 5% IVS PRN ×3 (09:58→20:20)
[2016-12-19] MEDS: HYDROcodone 10MG/APAP 325MG 1 EA TAB PO PRN ×2 (13:08→21:22)
[2016-12-19] MEDS ORDERED: MAGNESIUM HYDROXIDE 30 ML UD PO ONE (19:11)
[2016-12-19] MEDS: DIVALPROEX SODIUM ER 500 MG TAB PO SCH (20:10)
[2016-12-19] MEDS: LEVALBUTEROL NEBS 1.25 MG/3 ML VIAL INH PRN (21:30)
[2016-12-20] MEDS ORDERED: NICOTINE PATCH 21 MG TD SCH (00:30)
[2016-12-20] MEDS: HYDROmorphone HCL INJ 2 MG/ML VIAL IV PRN ×3 (02:37→18:03)
[2016-12-20] MEDS ORDERED: PROMETHAZINE HCL INJ 25 MG/ML VIAL ONE (05:49)
[2016-12-20] MEDS ORDERED: SODIUM CHLORIDE 0.9% 50ML 50 ML ONE (05:49)
[2016-12-20] MEDS: PROMETHAZINE HCL INJ 12.5 MG in SODIUM CHLORIDE 0.9% 50ML 50 ML IVPB PRN (05:51)
[2016-12-20] MEDS: HYDROcodone 10MG/APAP 325MG 1 EA TAB PO PRN ×2 (05:57→16:51)
[2016-12-20] MEDS ORDERED: DEX 5% W/NACL 0.45% 1000ML 1,000 ML IVS ONE (06:27)
[2016-12-20] MEDS ORDERED: POTASSIUM CHLORIDE 40mEq 20ML VIAL ONE (06:28)
[2016-12-20] MEDS: DEX 5% IVS PRN (06:37)
[2016-12-20] MEDS: POTASSIUM CHLORIDE IVS PRN (06:37)
[2016-12-20] MEDS: NACL 0.45% IVS PRN (06:37)
--- NOTE | 2016-12-20 07:35 | RAD ---
EXAM DESCRIPTION: Abdomen Flat Upright CLINICAL HISTORY: 41 years Female, abd pain COMPARISON: August 18, 2016 FINDINGS: The bowel gas pattern is normal with surgical clips from prior cholecystectomy. Mild degenerative changes of the lower lumbar spine are noted. No unusual calculi or masses are noted. The lung bases are clear and no free abdominal air is seen. IMPRESSION: Normal abdomen two views. Electronically signed by: Can Hunter MD 12/20/2016 7:34 AM CDT
[2016-12-20] MEDS: INSULIN LISPRO 100 UNITS/ML PEN SUBCU SCH ×4 (07:40→21:00)
[2016-12-20] MEDS ORDERED: ESCITALOPRAM 10 MG TAB PO SCH (09:00)
[2016-12-20] MEDS ORDERED: NICOTINE PATCH 21 MG TD ONE ×3 (09:44→19:58)
[2016-12-20] MEDS: NICOTINE PATCH 21 MG TD SCH ×2 (09:47→21:00)
[2016-12-20] MEDS: tiZANidine 4 MG TAB PO SCH ×3 (09:47→21:00)
[2016-12-20] MEDS: PREGABALIN 75 MG CAP PO SCH ×3 (09:47→21:00)
[2016-12-20] MEDS: LEVALBUTEROL NEBS 1.25 MG/3 ML VIAL INH PRN (09:58)
[2016-12-20] MEDS: MAGNESIUM HYDROXIDE 30 ML UD PO SCH ×2 (13:00→18:04)
[2016-12-20] MEDS ORDERED: INSULIN DETEMIR 100 UNITS/ML PEN SUBCU ONE ×2 (21:00→21:14)
[2016-12-20] MEDS: SODIUM CHLORIDE 0.9% (FLUSH) 10 ML SYG IV SCH (21:00)
[2016-12-20] MEDS: DIVALPROEX SODIUM ER 500 MG TAB PO SCH (21:00)
[2016-12-20] MEDS ORDERED: PROCHLORPERAZINE INJ 10 MG/2 ML VIAL IV PRN (22:17)
[2016-12-21] MEDS: HYDROcodone 10MG/APAP 325MG 1 EA TAB PO PRN (06:56)
[2016-12-21] MEDS: SODIUM CHLORIDE 0.9% (FLUSH) 10 ML SYG IV SCH (08:57)
[2016-12-21] MEDS: PREGABALIN 75 MG CAP PO SCH (08:57)
[2016-12-21] MEDS: INSULIN LISPRO 100 UNITS/ML PEN SUBCU SCH ×2 (09:00→12:50)
[2016-12-21] MEDS ORDERED: ESCITALOPRAM 10 MG TAB PO SCH (09:00)
[2016-12-21] MEDS: tiZANidine 4 MG TAB PO SCH (09:00)
--- NOTE | 2016-12-21 09:07 | PN ---
SUPERVISING PHYSICIAN: Aristides Alvarado MD DATE: 12/20/16 SUBJECTIVE: The patient is sitting in her bed. She complains of intense abdominal pain and has been asking for morphine most of the day. She states she has thrown up multiple times, although no one has witnessed her throwing up and she has eaten all of her food on her meal trays. She actually is very tearful and is very upset after I told her that I was stopping her IV pain medications. I explained to her that tomorrow morning she would be discharged and at this time, she is very upset and tearful. OBJECTIVE: VITAL SIGNS: Afebrile. Heart rate 89. Blood pressure 112/72. Respiratory rate 18. O2 saturations 97%. LUNGS: Clear to auscultation bilaterally. CARDIAC: Regular rate and rhythm. ABDOMEN: Soft, nondistended. It is somewhat tender to palpation, especially in the left upper quadrant. Bowel sounds are positive. EXTREMITIES: No cyanosis, clubbing or edema. NEUROLOGIC: Awake, alert and oriented times three. LABORATORY: CBC is basically within normal limits. Chemistries shows slightly low sodium at 133 and potassium 4.5, chloride 102, BUN 10.5, creatinine 6, glucose 383. Amylase 51, lipase 40. Abdominal x-ray per radiologic interpretation shows normal two view abdomen. All other labs and films have been reviewed via the EMR. ASSESSMENT: 1. Left upper quadrant abdominal pain, most likely due to gastroparesis and constipation. 2. Diabetes mellitus, type 1, poorly controlled with a significant history of noncompliance and multiple admissions for diabetic ketoacidosis. 3. Constipation. 4. Mild diabetic ketoacidosis with a trace of serum ketones. 5. Chronic obstructive pulmonary disease. 6. Eczema. 7. Chronic tobacco abuse. 8. Chronic back pain presently on multiple pain medications. 9. Fibromyalgia. 10. Chronic anxiety disorder. 11. Peripheral neuropathy, secondary to uncontrolled diabetes. PLAN: We will plan on discharge tomorrow. I have explained to the patient over and over that her abdominal pain is most likely due to gastroparesis and that it would be helpful if she would control her blood sugars. Because the CT of her abdomen is within normal limits as well as her abdominal x-ray and most of her lab other her blood sugars are within normal limits, that it be beneficial for her to followup with Dr. Rangel and she needs to see her GI doctor in [place] and she would benefit from a scope. I have discontinued her IV pain medications. She is to continue on her home medications which include several pain medications. I have ordered fluid restrictions and maybe that will help with her hyponatremia as she drinks quite a bit of fluids. I will order a BMP for in the morning to check her sodium. Otherwise, we will plan on discharge tomorrow and we will continue to monitor the patient overnight and followup closely. Dr. Alvarado is the collaborating physician and available for consultation. #[id number] [facility]
[2016-12-21 11:22] VITALS: BP 103/70; TEMP 98.2; O2SAT 94
--- NOTE | 2016-12-21 11:41 | DS ---
SUPERVISING PHYSICIAN: Melissa Macdonald MD DISCHARGE DIAGNOSIS: 1. Left upper quadrant abdominal pain, most likely due to gastroparesis and constipation as well as some issues with chronic pancreatitis. 2. Diabetes mellitus, type 1, poorly controlled with a significant history of noncompliance and multiple admissions for diabetic ketoacidosis. 3. Constipation. She has been given 4 doses of Milk of Magnesia with good results. 4. Mild diabetic ketoacidosis with a trace of serum ketones on admission, now resolved. 5. Chronic hyponatremia, mostly due to high fluid intake, presently on fluid restrictions. 6. Nausea and vomiting on admission, controlled with antiemetics and has not been present in the last 24 hours, although she has had multiple complaints of nausea, she has had no witnessed vomiting episodes and has been eating her meals without problems. 7. Chronic obstructive pulmonary disease. 8. Eczema. 9. Chronic tobacco abuse. 10. Chronic back pain, presently on multiple pain medications. 11 Fibromyalgia. 12. Chronic anxiety disorder. 13. Peripheral neuropathy, secondary to uncontrolled diabetes. HISTORY OF PRESENT ILLNESS: This is a 41-year-old female patient who came to the Emergency Room the day prior to admission with a 3 day complaint of left upper quadrant abdominal pain. The week before she came to the hospital, she had some bronchitis and was put on some prednisone as well as Levaquin at [facility]. Her bronchitis symptoms subsided, but 3 days prior to her Emergency Room visit, she started having severe abdominal cramps as well as pain, most notably in the left upper quadrant. She denied any chills or fever. She has an extensive history of uncontrolled diabetes with frequent admissions for diabetic ketoacidosis as well as gastroparesis and chronic pancreatitis. In the Emergency Room, her labs showed a sodium of 133, potassium 4, chloride 102, carbon dioxide 18, BUN 10, creatinine 0.63, random glucose 452. Amylase 115, lipase 169. CBC was basically within normal limits. She had a trace of serum ketones, but her urine glucose was 500. CT of her abdomen was done and per radiologic interpretation showed no specific acute intraabdominal findings, but there was fecal debris present throughout the bowel. The patient was placed in observation and given IV fluids as well as pain medications. She was also given several doses of Milk of Magnesia. Initially, she was NPO. HOSPITAL COURSE: The patient's diet was advanced without issues. After the first 24 hours she was here, there were no witnessed emesis, but she did complain of continual pain as well as nausea and vomiting. She also frequently required IV antiemetics as well as frequent dosing of Ativan. After being here about 24 hours, once her diet was advanced, her IV medications were discontinued. She continued with her home medications. She did have several bowel movements after the administration of the Milk of Magnesia. She had some mild diffuse tenderness throughout her abdomen. Her blood sugars frequently were in the 400s as well as they occasionally got into the 40s and 50s overnight even though her routine long-acting insulin was not started until yesterday. Because of her fluctuations in her blood sugars, I have decreased her Levemir to 25 units daily and she is to continue with her Humalog per sliding scale. DISCHARGE PLAN: The patient will be discharged home with her previous medications with the exception of her Levemir will be at 25 units daily instead of 35 units daily. She will continue with her sliding scale insulin as well as her previous home medications. She has a followup appointment with Dr. Rangel on Saturday and an appointment with Dr. Brar in [place] on Saturday. I have strongly encouraged her to seek to get better control of her blood sugars as most of her abdominal pain most likely is due to the constipation as well as gastroparesis and her chronic pancreatitis. She is to resume her previous activity and followup with Dr. Rangel's office or Dr. Brar's office for any further complications. She is also to limit her fluid intake to about 1500 mL daily to help with the hyponatremia. DISCHARGE MEDICATIONS: 1. Lexapro. 2. Humalog insulin. 3. Ambien. 4. Zolpidem. 5. Valium. 6. Lyrica. 7. Acetaminophen with codeine. 8. Depakote. 9. Reglan. 10. Hydrocodone. 11. Promethazine. 12. Tizanidine. 13. Levemir insulin 25 units daily. #[id number] [facility]
== END 2016-12-21 13:30 | disposition home or self-care (01) ==
LOC: ER 20:39 → INTOOBSV 12-19 00:30 → MS 12-19 00:30
PROVIDERS: ADMIT Nurse Practitioner Acute Care; ATTEND Nurse Practitioner Acute Care
DX: E10.65 Type 1 diabetes mellitus with hyperglycemia (principal); E10.10 Type 1 diabetes mellitus with ketoacidosis without coma; R10.12 Left upper quadrant pain; K86.1 Other chronic pancreatitis; E10.42 Type 1 diabetes mellitus with diabetic polyneuropathy; E87.1 Hypo-osmolality and hyponatremia; R11.2 Nausea with vomiting, unspecified; K59.00 Constipation, unspecified; J44.9 Chronic obstructive pulmonary disease, unspecified; L30.9 Dermatitis, unspecified; F17.210 Nicotine dependence, cigarettes, uncomplicated; G89.29 Other chronic pain; M54.5 Low back pain; M54.6 Pain in thoracic spine; M79.7 Fibromyalgia; F41.8 Other specified anxiety disorders; Z79.4 Long term (current) use of insulin; Z79.899 Other long term (current) drug therapy; Z90.710 Acquired absence of both cervix and uterus; Z90.49 Acquired absence of other specified parts of digestive tract; Z82.49 Family history of ischemic heart disease and other diseases of the circulatory system; Z80.7 Family history of other malignant neoplasms of lymphoid, hematopoietic and related tissues
CPT/HCPCS: 36415 ×5; 36416 ×11; 74010; 74176; 80048 ×4; 80053 ×2; 81001; 82009 ×2; 82150 ×2; 82948 ×17; 83036; 83690 ×2; 85025 ×2; 94640 ×2; 94760 ×6; 96361 ×2; 96365; 96366; 96372 ×3; 96375 ×4; 96376 ×3; 99284; 99406; A4216 ×5; G0378; J0780; J1170 ×10; J1815 ×2; J2060 ×5; J2405 ×3; J2550 ×6; J2765 ×3; J3480 ×3; J7030 ×4; J7050; J7614 ×2; J7799 ×4

== ENCOUNTER 2017-01-06 22:16 | Emergency (ER) | payer MEDICARE, MEDICAID ==
[2017-01-06] MEDS ORDERED: PROMETHAZINE HCL INJ 25 MG in SODIUM CHLORIDE 0.9% 50ML 50 ML IVPB ONE (22:35)
[2017-01-06] MEDS ORDERED: SODIUM CHLORIDE 0.9% 1000ML 1,000 ML IVS ONE (22:35)
[2017-01-06] MEDS ORDERED: PROMETHAZINE HCL INJ 25 MG/ML VIAL ONE (22:36)
[2017-01-06] MEDS ORDERED: SODIUM CHLORIDE 0.9% 50ML 50 ML ONE (22:37)
--- NOTE | 2017-01-06 22:39 | ED.PDOC ---
History of Present Illness - General Chief Complaint: Abdominal Pain Stated Complaint: N/V/D, LUQ abdomen pain that occurs only when sick Time Seen by Provider: 01/06/17 22:25 Source: patient, RN notes reviewed, Vital Signs reviewed, old records Exam Limitations: no limitations - History of Present Illness Initial Comments: Patient presents with N/V/D with LUQ pain. Similar to multiple prior visits for same. She has Type 1 diabetes, gastroparesis and chronic pancreatitis. Numerous admissions for above symptoms and ketoacidosis. Symptoms started this morning. She is concerned about DKA. Timing/Duration: other - 12-15 hours Severity: moderate Improving Factors: nothing Worsening Factors: nothing Associated Symptoms: cough, nausea/vomiting Allergies/Adverse Reactions: Allergies Eggs or Egg-derived Products Allergy (Verified 01/06/17 22:35) Fish Allergy Allergy (Verified 01/06/17 22:35) peanut Allergy (Severe, Uncoded 01/06/17 22:36) eggs Allergy (Uncoded 01/06/17 22:36) Home Medications: Ambulatory Orders Escitalopram Oxalate [Lexapro] 40 mg PO MOWEFR 06/22/15 Insulin Lispro [Humalog] See Protocol SC ACHS PRN 06/22/15 Escitalopram [Lexapro] 20 mg PO SUTUTHSA 04/09/16 Zolpidem Tartrate [Ambien] 10 mg PO BEDTIME 04/09/16 Diazepam [Valium] 10 mg PO DAILY #10 tab 08/11/16 Divalproex Sodium ER [Depakote ER] 500 mg PO BEDTIME 08/18/16 Pregabalin [Lyrica] 150 mg PO TID 08/18/16 Metoclopramide Tab [Reglan Tab] 5 mg PO ACHS #120 tab 08/20/16 Promethazine Tab [Phenergan Tablet] 25 mg PO Q6H PRN #30 tab 08/20/16 Tizanidine HCl [Zanaflex] 4 mg PO TID 12/18/16 Acetaminophen W/ Codeine [Tylenol W/ CODEINE #3] 1 ea PO Q4HR PRN #12 01/07/17 HYDROcodone/IBUPROFEN 7.5/200 [Vicoprofen] 1 ea PO Q6HR PRN 01/07/17 Insulin Detemir [Levemir Pen] 35 units SUBCU DAILY 01/07/17 Promethazine Supp [Phenergan Suppository] 25 mg UT Q6HR PRN #12 sup 01/07/17 Review of Systems - Review of Systems Constitutional: States: no symptoms reported EENTM: States: no symptoms reported Respiratory: States: no symptoms reported Cardiology: States: no symptoms reported Gastrointestinal/Abdominal: States: abdominal pain - LUQ, diarrhea, nausea, vomiting Genitourinary: States: no symptoms reported Musculoskeletal: States: no symptoms reported Skin: States: no symptoms reported Neurological: States: no symptoms reported Endocrine: States: no symptoms reported Past Medical History (General) - Patient Medical History Hx Seizures: Yes Hx Stroke: No Hx Dementia: No Hx Asthma: No Hx of COPD: No Hx Cardiac Disorders: No Hx Congestive Heart Failure: No Hx Pacemaker: No Hx Hypertension: No Hx Thyroid Disease: No Hx Diabetes: Yes Hx Gastroesophageal Reflux: No Hx Renal Disease: No Hx Cancer: No Hx of HIV: No Hx Hepatitis C: No Hx MRSA: No MRSA Source:: Blood Surgical History: appendectomy, cholecystectomy, Hysterectomy - Vaccination History Hx Tetanus, Diphtheria Vaccination: No Hx Influenza Vaccination: No Hx Pneumococcal Vaccination: No Immunizations Up to Date: No - Social History Hx Tobacco Use: Yes Hx Chewing Tobacco Use: No Hx Alcohol Use: No Hx Substance Use: No Hx Substance Use Treatment: No Hx Depression: Yes Feels Threatened In Home Enviroment: No Feels Threatened In a Relationship: No Hx Physical Abuse: No Hx Emotional Abuse: No Hx Suspected Abuse: No - Female History Hx Last Menstrual Period: 11/05/11 Patient : No Family Medical History - Family History Mother Family History: No Known Name: April Age (years): 67 Living Status: Still Living Hx Family Asthma: No Hx Family Congestive Heart Failure: No Hx Family Hypertension: No Hx Family Stroke: No Hx Cardiac Disease: No Hx Family Diabetes: No Hx Family Cancer: No Father Family History: No Known Name: Marlon Age (years): 65 Living Status: Still Living Hx Family Asthma: No - Sister Hx Family Congestive Heart Failure: No Hx Family Hypertension: Yes Hx Family Stroke: No Hx Cardiac Disease: No - Grandfather. Hx Family Diabetes: No - Pt Age of Onset (years of age): 33 Hx Family Cancer: Yes - Grandmother Lympoma Physical Exam - Physical Exam General Appearance: Alert, No apparent distress, Restless, Well Developed, Well Groomed, Well Nourished Neck: non-tender, full range of motion, supple, normal inspection Respiratory: chest non-tender, lungs clear, normal breath sounds, no respiratory distress, no accessory muscle use, other - Hyperventilating Cardiovascular/Chest: regular rate, rhythm, no edema, no gallop, no JVD, no murmur Gastrointestinal/Abdominal: normal bowel sounds, soft, no organomegaly, no pulsatile mass, tenderness - LUQ Extremity: normal range of motion, non-tender, normal inspection, no pedal edema Neurologic: alert, normal mood/affect, oriented x 3 Skin Exam: normal color, warm/dry Progress - Progress Progress: 01/06/17 22:37 Fingerstick Glucose: 333 01/07/17 01:48 Patient has been given 700cc NS and 15U reg insulin SQ and FSBS is still 320. Will finish liter of NS and recheck BMP and acetone levels. 01/07/17 03:05 Blood sugar improved @212, Acetone still small. Will give another L of NS and 6U of reg insulin with plan to d/c home after. Patient is agreeable with plan. 01/07/17 04:34 Patient reports she is feeling better except for heartburn. Will give Protonix and d/c home with Phenergan suppositories and Tyl #3 for R abd, musculoskeletal pain from vomiting. She is agreeable with plan - Results/Orders Results/Orders: Laboratory Tests 01/06/17 01/06/17 01/06/17 22:30 22:30 22:30 WBC 12.9 H RBC 6.12 H Hgb 16.0 Hct 51.4 H MCV 83.9 MCH 26.1 L MCHC 31.1 L RDW 15.4 H Plt Count 389 MPV 9.9 Absolute Neuts (auto) 8.20 H Absolute Lymphs (auto) 4.00 H Absolute Monos (auto) 0.60 Absolute Eos (auto) 0.10 Absolute Basos (auto) 0.10 Neutrophils % 63.2 Lymphocytes % 31.0 Monocytes % 4.5 Eosinophils % 0.8 L Basophils % 0.5 Sodium 134 L Potassium 5.5 H Chloride 104 Carbon Dioxide 8 L* Anion Gap 27.5 H BUN 16 Creatinine 0.99 BUN/Creatinine Ratio 16.2 POC Glucose 333 H Random Glucose 388 H Serum Osmolality 285.5 Calcium 9.9 Total Bilirubin 1.7 H AST 25 ALT 30 Alkaline Phosphatase 131 H Serum Total Protein 9.3 H Albumin 5.2 Globulin 4.1 H Albumin/Globulin Ratio 1.3 Amylase 71 Lipase 29 Urine Color Urine Appearance Urine pH Ur Specific [place] Urine Protein Urine Glucose (UA) Urine Ketones Urine Blood Urine Nitrite Urine Bilirubin Urine Urobilinogen Ur Leukocyte Esterase Urine RBC Urine WBC Ur Epithelial Cells Urine Bacteria Urine Yeast Serum Ketones Small 01/07/17 01/07/17 01/07/17 01:35 02:30 03:00 WBC RBC Hgb Hct MCV MCH MCHC RDW Plt Count MPV Absolute Neuts (auto) Absolute Lymphs (auto) Absolute Monos (auto) Absolute Eos (auto) Absolute Basos (auto) Neutrophils % Lymphocytes % Monocytes % Eosinophils % Basophils % Sodium Potassium Chloride Carbon Dioxide Anion Gap BUN Creatinine BUN/Creatinine Ratio POC Glucose 320 H 212 H D Random Glucose Serum Osmolality Calcium Total Bilirubin AST ALT Alkaline Phosphatase Serum Total Protein Albumin Globulin Albumin/Globulin Ratio Amylase Lipase Urine Color Urine Appearance Urine pH Ur Specific [place] Urine Protein Urine Glucose (UA) Urine Ketones Urine Blood Urine Nitrite Urine Bilirubin Urine Urobilinogen Ur Leukocyte Esterase Urine RBC Urine WBC Ur Epithelial Cells Urine Bacteria Urine Yeast Serum Ketones Small 01/07/17 04:07 WBC RBC Hgb Hct MCV MCH MCHC RDW Plt Count MPV Absolute Neuts (auto) Absolute Lymphs (auto) Absolute Monos (auto) Absolute Eos (auto) Absolute Basos (auto) Neutrophils % Lymphocytes % Monocytes % Eosinophils % Basophils % Sodium Potassium Chloride Carbon Dioxide Anion Gap BUN Creatinine BUN/Creatinine Ratio POC Glucose Random Glucose Serum Osmolality Calcium Total Bilirubin AST ALT Alkaline Phosphatase Serum Total Protein Albumin Globulin Albumin/Globulin Ratio Amylase Lipase Urine Color Yellow Urine Appearance Clear Urine pH 5.5 Ur Specific [place] >= 1.030 Urine Protein 100 H Urine Glucose (UA) 500 H Urine Ketones >=160 Urine Blood Small H Urine Nitrite Negative Urine Bilirubin Small H Urine Urobilinogen 0.2 Ur Leukocyte Esterase Negative Urine RBC 1-3 Urine WBC 10-20 H Ur Epithelial Cells 5-10 Urine Bacteria Rare Urine Yeast Rare Serum Ketones Departure - Departure Clinical Impression: Hyperglycemia, Diabetes mellitus type 1, uncontrolled, insulin dependent, Dehydration Vomiting Qualifiers: Vomiting type: bilious vomiting Nausea presence: with nausea Qualified Code(s) : R11.14 - Bilious vomiting Time of Disposition: 04:37 Disposition: Discharge to Home or Self Care Condition: Good Departure Forms: ED Discharge - Pt. Copy, Patient Portal Self Enrollment Instructions: DI for Diabetes Type 1 -- Adult, DI for Vomiting -- Adult, DI for Dehydration -- Adult Diet: diabetic diet Activity: increase activity as tolerated Referrals: Joby Rangel MD [Primary Care Provider] - 1-2 Weeks Prescriptions: Acetaminophen W/ Codeine [Tylenol W/ CODEINE #3] 1 ea PO Q4HR PRN #12 PRN Reason: Moderate To Severe Pain Promethazine Supp [Phenergan Suppository] 25 mg UT Q6HR PRN #12 sup PRN Reason: Nausea/Vomiting Home Medications: Ambulatory Orders Escitalopram Oxalate [Lexapro] 40 mg PO MOWEFR 06/22/15 Insulin Lispro [Humalog] See Protocol SC ACHS PRN 06/22/15 Escitalopram [Lexapro] 20 mg PO SUTUTHSA 04/09/16 Zolpidem Tartrate [Ambien] 10 mg PO BEDTIME 04/09/16 Diazepam [Valium] 10 mg PO DAILY #10 tab 08/11/16 Divalproex Sodium ER [Depakote ER] 500 mg PO BEDTIME 08/18/16 Pregabalin [Lyrica] 150 mg PO TID 08/18/16 Metoclopramide Tab [Reglan Tab] 5 mg PO ACHS #120 tab 08/20/16 Promethazine Tab [Phenergan Tablet] 25 mg PO Q6H PRN #30 tab 08/20/16 Tizanidine HCl [Zanaflex] 4 mg PO TID 12/18/16 Acetaminophen W/ Codeine [Tylenol W/ CODEINE #3] 1 ea PO Q4HR PRN #12 01/07/17 HYDROcodone/IBUPROFEN 7.5/200 [Vicoprofen] 1 ea PO Q6HR PRN 01/07/17 Insulin Detemir [Levemir Pen] 35 units SUBCU DAILY 01/07/17 Promethazine Supp [Phenergan Suppository] 25 mg UT Q6HR PRN #12 sup 01/07/17
[2017-01-06] MEDS ORDERED: HYDROmorphone HCL INJ 2 MG/ML VIAL IV ONE (23:45)
[2017-01-07] MEDS ORDERED: INSULIN, REG.(HUMAN) 100 U/ML VIAL SUBCU ONE ×2 (00:34→03:03)
[2017-01-07] MEDS ORDERED: ONDANSETRON INJ 4 MG/2 ML VIAL IV ONE (01:52)
[2017-01-07] MEDS ORDERED: ONDANSETRON INJ 4 MG/2 ML VIAL ONE (01:53)
[2017-01-07] MEDS ORDERED: KETOROLAC TROMETHAMINE INJ 30 MG/ML VIAL IV ONE (02:56)
[2017-01-07] MEDS ORDERED: KETOROLAC TROMETHAMINE INJ 30 MG/ML VIAL ONE (02:56)
[2017-01-07] MEDS ORDERED: SODIUM CHLORIDE 0.9% 1000ML 1,000 ML ONE (03:03)
[2017-01-07] MEDS ORDERED: SODIUM CHLORIDE 0.9% 1000ML 1,000 ML IVS ONE (03:03)
[2017-01-07] MEDS ORDERED: INSULIN, REG.(HUMAN) 100 U/ML VIAL ONE (03:04)
[2017-01-07] MEDS ORDERED: PANTOPRAZOLE SODIUM IV 40 MG VIAL IV ONE (04:34)
[2017-01-07] MEDS ORDERED: PANTOPRAZOLE SODIUM IV 40 MG VIAL ONE (04:35)
[2017-01-07 04:50] VITALS: BP 108/63; TEMP 97.5; O2SAT 99
== END 2017-01-07 04:46 | disposition home or self-care (01) ==
LOC: ER 22:16
DX: E10.65 Type 1 diabetes mellitus with hyperglycemia (principal); E86.0 Dehydration; R11.14 Bilious vomiting; Z79.899 Other long term (current) drug therapy; Z79.4 Long term (current) use of insulin; Z91.012 Allergy to eggs; Z91.013 Allergy to seafood; Z91.010 Allergy to peanuts; Z87.891 Personal history of nicotine dependence
CPT/HCPCS: 36415; 36416; 80053; 81001; 82009; 82150; 82948; 83690; 85025; 87086; A4216; J1170; J1885; J2405; J2550; J7030

== ENCOUNTER 2017-01-14 14:33 | Inpatient (IN) | payer MEDICARE, MEDICAID ==
[2017-01-14] MEDS ORDERED: SODIUM CHLORIDE 0.9% 1000ML 1,000 ML IVS ONE ×2 (15:04→17:28)
[2017-01-14] MEDS ORDERED: ALUMINUM & MAGNESIUM HYDROXIDE 30 ML UD PO ONE (15:05)
[2017-01-14] MEDS ORDERED: ONDANSETRON ODT 8 MG TAB SL SCH (15:30)
[2017-01-14] MEDS ORDERED: INSULIN, REG.(HUMAN) 100 U/ML VIAL IV ONE (15:53)
[2017-01-14] MEDS ORDERED: METOCLOPRAMIDE HCL INJ 10 MG/2 ML VIAL IV ONE (15:55)
--- NOTE | 2017-01-14 16:34 | RAD ---
PROCEDURE: Abdomen Series Clinical History: abd pain , hx of pancreatitis and dm Indication: Same as above Comparison: X-ray of the abdomen done on 12/20/2016 Technique: Two views of the abdomen and pelvis and single view of the chest were done. Findings: There is no gross evidence of free air in the abdomen or the pelvis . The small and large bowel gas pattern does not show any evidence of obstruction, ileus or bowel wall thickening. There is no visualization of radiopaque calculi in the outline of the urinary tract. There are no airspace infiltrates, pneumothoraces or pleural effusions. The cardiomediastinal silhouette is unremarkable Surgical staple is seen in the right paravertebral region at the L2 level. There is no significant constipation. Multiple phleboliths are seen in the pelvis. Impression: There are no acute or significant findings in the chest, abdomen and pelvis Location of Interpretation: [id number] Electronically signed by: London Chung MD 01/14/2017 4:34 PM CDT Workstation: [id number]
[2017-01-14] MEDS ORDERED: INSULIN, REG.(HUMAN) 100 U/ML VIAL SUBCU ONE (17:58)
[2017-01-14] MEDS ORDERED: ONDANSETRON INJ 4 MG/2 ML VIAL IV ONE (18:33)
[2017-01-14] MEDS ORDERED: HYDROmorphone HCL INJ 2 MG/ML VIAL IV SCH (20:00)
[2017-01-14] MEDS: HYDROmorphone HCL INJ 2 MG/ML VIAL IV SCH (20:32)
--- NOTE | 2017-01-14 21:28 | ED.PDOC ---
History of Present Illness - General Chief Complaint: GI Problem Stated Complaint: N/V/D Time Seen by Provider: 01/14/17 14:58 Source: patient Exam Limitations: no limitations - History of Present Illness Initial Comments: the patient is a 41-year-old female with a history of type 1 diabetes and significant gastroparesis presenting with approximately 8-10 days of poor oral intake, nausea and vomiting. She was seen here about a week ago and was given medications and felt better for a little while but then symptoms restarted. She has been having frequent throwing up for the last 2-3 days again. She is not keeping food down. Her blood sugars got up into the 600 range today since she presented back here. She does have a history of recurrent pancreatitis and recurrent episodes of DKA. Timing/Duration: 1 week Severity: moderate Improving Factors: nothing Worsening Factors: nothing Associated Symptoms: headaches, loss of appetite, malaise, nausea/vomiting, weakness Allergies/Adverse Reactions: Allergies Eggs or Egg-derived Products Allergy (Verified 01/06/17 22:35) Fish Allergy Allergy (Verified 01/06/17 22:35) peanut Allergy (Severe, Uncoded 01/06/17 22:36) eggs Allergy (Uncoded 01/06/17 22:36) Home Medications: Ambulatory Orders Escitalopram Oxalate [Lexapro] 40 mg PO MOWEFR 06/22/15 Insulin Lispro [Humalog] See Protocol SC ACHS PRN 06/22/15 Escitalopram [Lexapro] 20 mg PO SUTUTHSA 04/09/16 Zolpidem Tartrate [Ambien] 10 mg PO BEDTIME 04/09/16 Diazepam [Valium] 10 mg PO DAILY #10 tab 08/11/16 Divalproex Sodium ER [Depakote ER] 500 mg PO BEDTIME 08/18/16 Pregabalin [Lyrica] 150 mg PO TID 08/18/16 Metoclopramide Tab [Reglan Tab] 5 mg PO ACHS #120 tab 08/20/16 Promethazine Tab [Phenergan Tablet] 25 mg PO Q6H PRN #30 tab 08/20/16 Tizanidine HCl [Zanaflex] 4 mg PO TID 12/18/16 Acetaminophen W/ Codeine [Tylenol W/ CODEINE #3] 1 ea PO Q4HR PRN #12 01/07/17 HYDROcodone/IBUPROFEN 7.5/200 [Vicoprofen] 1 ea PO Q6HR PRN 01/07/17 Insulin Detemir [Levemir Pen] 35 units SUBCU DAILY 01/07/17 Promethazine Supp [Phenergan Suppository] 25 mg [place] Q6HR PRN #12 sup 01/07/17 Review of Systems - Review of Systems Constitutional: States: malaise, weakness EENTM: States: no symptoms reported Respiratory: States: no symptoms reported Cardiology: States: no symptoms reported Gastrointestinal/Abdominal: States: abdominal pain, constipation, nausea, vomiting Genitourinary: States: no symptoms reported Musculoskeletal: States: back pain, muscle stiffness Skin: States: no symptoms reported Neurological: States: anxiety, headache - mild Endocrine: States: no symptoms reported All other Systems: No Change from Baseline Past Medical History (General) - Patient Medical History Hx Seizures: Yes Hx Stroke: No Hx Dementia: No Hx Asthma: No Hx of COPD: No Hx Cardiac Disorders: No Hx Congestive Heart Failure: No Hx Pacemaker: No Hx Hypertension: No Hx Thyroid Disease: No Hx Diabetes: Yes Hx Gastroesophageal Reflux: No Hx Renal Disease: No Hx Cancer: No Hx of HIV: No Hx Hepatitis C: No Hx MRSA: No MRSA Source:: Blood - Vaccination History Hx Tetanus, Diphtheria Vaccination: No Hx Influenza Vaccination: No Hx Pneumococcal Vaccination: No - Social History Hx Tobacco Use: Yes Hx Chewing Tobacco Use: No Hx Alcohol Use: No Hx Substance Use: No Hx Substance Use Treatment: No Hx Depression: Yes Hx Physical Abuse: No Hx Emotional Abuse: No Hx Suspected Abuse: No - Female History Patient is a Female of Child Bearing Age (10 -59 yrs old): Yes Hx Last Menstrual Period: 11/05/11 Patient : No Family Medical History - Family History Mother Family History: No Known Name: April Age (years): 67 Living Status: Still Living Hx Family Asthma: No Hx Family Congestive Heart Failure: No Hx Family Hypertension: No Hx Family Stroke: No Hx Cardiac Disease: No Hx Family Diabetes: No Hx Family Cancer: No Father Family History: No Known Name: Marlon Age (years): 65 Living Status: Still Living Hx Family Asthma: No - Sister Hx Family Congestive Heart Failure: No Hx Family Hypertension: Yes Hx Family Stroke: No Hx Cardiac Disease: No - Grandfather. Hx Family Diabetes: No - Pt Age of Onset (years of age): 33 Hx Family Cancer: Yes - Grandmother Lympoma Physical Exam - Physical Exam General Appearance: Alert, Anxious - vomiting Eye Exam: bilateral normal Ears, Nose, Throat: hearing grossly normal, normal ENT inspection, normal pharynx Neck: non-tender, full range of motion, supple Respiratory: chest non-tender, lungs clear, normal breath sounds, no respiratory distress, no accessory muscle use Cardiovascular/Chest: normal peripheral pulses, no edema, tachycardia Peripheral Pulses: radial,right: 2+, radial,left: 2+, dorsalis pedis,right: 2+, dorsalis pedis,left: 2+, posterior tibialis,right: 2+, posterior tibialis,left: 2+ Gastrointestinal/Abdominal: non tender - the patient has some generalized discomfort palpation. No obvious palpable mass. No rebound or peritoneal signs. 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, alert, normal mood/affect, oriented x 3 Skin Exam: normal color Comments: Vital Signs - 24 hr 01/14/17 01/14/17 01/14/17 14:45 16:18 17:15 Temperature 98.1 F 97 F L Pulse Rate [ 117 H 90 left brachial] Respiratory 16 Rate Blood Pressure 147/79 105/60 [left brachial] O2 Sat by Pulse 97 95 Oximetry 01/14/17 01/14/17 01/14/17 18:23 18:37 19:00 Temperature 97 F L 97.9 F Pulse Rate [ 98 H 95 H 84 left brachial] Respiratory 20 20 18 Rate Blood Pressure 101/74 104/63 126/75 [left brachial] O2 Sat by Pulse 98 97 97 Oximetry 01/14/17 20:00 Temperature 98 F Pulse Rate [ 80 left brachial] Respiratory 18 Rate Blood Pressure 128/68 [left brachial] O2 Sat by Pulse 98 Oximetry Progress - Progress Progress: 01/14/17 21:33 the patient is a 41-year-old female presenting with uncontrolled nausea and vomiting and abdominal pain with mild diabetic ketoacidosis. This is a frequent problem for her likely made worse by associated gastroparesis. The patient has received a couple of liters of IV fluids as well as doses of Reglan and Zofran. Blood sugars have improved with insulin. Her anion gap has narrowed significantly since her arrival. She is feeling better however when nausea and pain medications were off, the pain and nausea come back along with the vomiting. The patient will be admitted overnight and hopefully symptoms will subside so that she can keep herself hydrated and managed her glucoses. - Results/Orders Results/Orders: Laboratory Tests 01/14/17 01/14/17 01/14/17 15:20 15:20 15:20 WBC 11.1 H RBC 5.20 Hgb 13.5 Hct 42.1 MCV 81.0 MCH 25.9 L MCHC 32.0 L RDW 14.5 Plt Count 297 MPV 9.0 Absolute Neuts (auto) 9.60 H Absolute Lymphs (auto) 1.10 Absolute Monos (auto) 0.30 Absolute Eos (auto) 0.00 Absolute Basos (auto) 0.00 Neutrophils % 86.5 H Lymphocytes % 10.2 L Monocytes % 2.7 Eosinophils % 0.3 L Basophils % 0.3 Sodium 132 L Potassium 4.4 Chloride 99 L Carbon Dioxide 17 L Anion Gap 20.4 H BUN 15 Creatinine 0.63 BUN/Creatinine Ratio 23.8 H POC Glucose Random Glucose 560 H* Serum Osmolality 290.9 Calcium 9.3 Magnesium 1.8 Total Bilirubin 1.2 H AST 15 ALT 16 Alkaline Phosphatase 101 Serum Total Protein 7.6 Albumin 4.2 Globulin 3.4 Albumin/Globulin Ratio 1.2 Amylase 48 Lipase 27 Urine Color Urine Appearance Urine pH Ur Specific [place] Urine Protein Urine Glucose (UA) Urine Ketones Urine Blood Urine Nitrite Urine Bilirubin Urine Urobilinogen Ur Leukocyte Esterase Urine RBC Urine WBC Ur Epithelial Cells Amorphous Sediment Urine Bacteria Urine Yeast Urine Opiates Screen Urine Barbiturates Ur Phencyclidine Scrn U Amphetamin/Meth Scrn U Benzodiazepines Scrn U Cocaine Metab Screen U Cannabinoids Screen Serum Ketones Small 01/14/17 01/14/17 01/14/17 17:05 17:35 18:35 WBC RBC Hgb Hct MCV MCH MCHC RDW Plt Count MPV Absolute Neuts (auto) Absolute Lymphs (auto) Absolute Monos (auto) Absolute Eos (auto) Absolute Basos (auto) Neutrophils % Lymphocytes % Monocytes % Eosinophils % Basophils % Sodium Potassium Chloride Carbon Dioxide Anion Gap BUN Creatinine BUN/Creatinine Ratio POC Glucose 355 H 310 H Random Glucose Serum Osmolality Calcium Magnesium Total Bilirubin AST ALT Alkaline Phosphatase Serum Total Protein Albumin Globulin Albumin/Globulin Ratio Amylase Lipase Urine Color Urine Appearance Urine pH Ur Specific [place] Urine Protein Urine Glucose (UA) Urine Ketones Urine Blood Urine Nitrite Urine Bilirubin Urine Urobilinogen Ur Leukocyte Esterase Urine RBC Urine WBC Ur Epithelial Cells Amorphous Sediment Urine Bacteria Urine Yeast Urine Opiates Screen Negative Urine Barbiturates Negative Ur Phencyclidine Scrn Negative U Amphetamin/Meth Scrn Negative U Benzodiazepines Scrn Positive H U Cocaine Metab Screen Negative U Cannabinoids Screen Negative Serum Ketones 01/14/17 01/14/17 01/14/17 18:35 19:15 20:00 WBC RBC Hgb Hct MCV MCH MCHC RDW Plt Count MPV Absolute Neuts (auto) Absolute Lymphs (auto) Absolute Monos (auto) Absolute Eos (auto) Absolute Basos (auto) Neutrophils % Lymphocytes % Monocytes % Eosinophils % Basophils % Sodium 138 Potassium 3.7 Chloride 111 Carbon Dioxide 18 L Anion Gap 12.7 BUN 13 Creatinine 0.59 L BUN/Creatinine Ratio 22.0 H POC Glucose 277 H Random Glucose 243 H D Serum Osmolality 283.8 Calcium 8.4 Magnesium Total Bilirubin AST ALT Alkaline Phosphatase Serum Total Protein Albumin Globulin Albumin/Globulin Ratio Amylase Lipase Urine Color Yellow Urine Appearance Clear Urine pH 5.0 Ur Specific [place] 1.010 Urine Protein Negative Urine Glucose (UA) 500 H Urine Ketones >=160 Urine Blood Small H Urine Nitrite Negative Urine Bilirubin Small H Urine Urobilinogen 0.2 Ur Leukocyte Esterase Negative Urine RBC 0 Urine WBC 0 Ur Epithelial Cells 1-3 Amorphous Sediment 1+ Urine Bacteria Rare Urine Yeast Rare Urine Opiates Screen Urine Barbiturates Ur Phencyclidine Scrn U Amphetamin/Meth Scrn U Benzodiazepines Scrn U Cocaine Metab Screen U Cannabinoids Screen Serum Ketones Small abdominal series shows no acute pathology in the chestabdomen or pelvis. Departure - Departure Clinical Impression: Gastroparesis, Dehydration Diabetic ketoacidosis associated with type 1 diabetes mellitus Qualifiers: Diabetes mellitus complication detail: without coma Qualified Code(s): E10.10 - Type 1 diabetes mellitus with ketoacidosis without coma Uncontrollable nausea and vomiting Qualifiers: Vomiting type: unspecified Qualified Code(s): R11.2 - Nausea with vomiting, unspecified Abdominal pain Qualifiers: Abdominal location: generalized Qualified Code(s): R10.84 - Generalized abdominal pain Disposition: Admit Patient Referrals: Joby Rangel MD [Primary Care Provider] - 1-2 Weeks Home Medications: Ambulatory Orders Escitalopram Oxalate [Lexapro] 40 mg PO MOWEFR 06/22/15 Insulin Lispro [Humalog] See Protocol SC ACHS PRN 06/22/15 Escitalopram [Lexapro] 20 mg PO SUTUTHSA 04/09/16 Zolpidem Tartrate [Ambien] 10 mg PO BEDTIME 04/09/16 Diazepam [Valium] 10 mg PO DAILY #10 tab 08/11/16 Divalproex Sodium ER [Depakote ER] 500 mg PO BEDTIME 08/18/16 Pregabalin [Lyrica] 150 mg PO TID 08/18/16 Metoclopramide Tab [Reglan Tab] 5 mg PO ACHS #120 tab 08/20/16 Promethazine Tab [Phenergan Tablet] 25 mg PO Q6H PRN #30 tab 08/20/16 Tizanidine HCl [Zanaflex] 4 mg PO TID 12/18/16 Acetaminophen W/ Codeine [Tylenol W/ CODEINE #3] 1 ea PO Q4HR PRN #12 01/07/17 HYDROcodone/IBUPROFEN 7.5/200 [Vicoprofen] 1 ea PO Q6HR PRN 01/07/17 Insulin Detemir [Levemir Pen] 35 units SUBCU DAILY 01/07/17 Promethazine Supp [Phenergan Suppository] 25 mg [place] Q6HR PRN #12 sup 01/07/17 Decision To Admit - Decistion To Admit Decision to Admit Reason: Medical Nature Decision to Admit Date: 01/14/17 Decision to Admit Time: 21:36
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
[2017-01-14] MEDS ORDERED: SODIUM CHLORIDE 0.9% (FLUSH) 10 ML SYG IV PRN (22:15)
[2017-01-14] MEDS ORDERED: ONDANSETRON INJ 4 MG/2 ML VIAL IV PRN (22:24)
[2017-01-14] MEDS ORDERED: DEXTROSE 50% 25 GM/50 ML SYG IV PRN (22:24)
[2017-01-14] MEDS ORDERED: GLUCAGON INJ 1 MG VIAL SUBCU PRN (22:24)
[2017-01-14] MEDS ORDERED: PROMETHAZINE SUPP 12.5 MG SUP PR PRN (22:27)
[2017-01-14] MEDS ORDERED: KCL 20 MEQ/NS 1,000 ML IVS PRN (22:33)
[2017-01-14] MEDS ORDERED: ZOLPIDEM TARTRATE 5 MG TAB PO SCH (22:40)
[2017-01-14] MEDS ORDERED: NON-FORMULARY MEDICATION 1 EA MIS (Diazepam [Valium] 10 MG) PO SCH (22:40)
[2017-01-14] MEDS ORDERED: ZOLPIDEM TARTRATE 10 MG TAB ONE (22:44)
[2017-01-14] MEDS ORDERED: diazePAM 5 MG TAB PO ONE (22:48)
[2017-01-14] MEDS ORDERED: diazePAM 5 MG TAB ONE (22:48)
[2017-01-14] MEDS ORDERED: PANTOPRAZOLE SODIUM IV 40 MG VIAL IV SCH (23:00)
[2017-01-14] MEDS: SUCRALFATE 1 GM/10 ML 1 GM UD PO SCH (23:02)
[2017-01-14] MEDS: METOCLOPRAMIDE HCL 5 MG TAB PO SCH (23:02)
[2017-01-14] MEDS: IV SET AND CAP CHANGE INJ INJ SCH (23:03)
[2017-01-14] MEDS: ESCITALOPRAM 10 MG TAB PO SCH (23:03)
[2017-01-14] MEDS: DIVALPROEX SODIUM ER 500 MG TAB PO SCH (23:03)
[2017-01-14] MEDS: LEVALBUTEROL NEBS 1.25 MG/3 ML VIAL INH SCH (23:15)
[2017-01-14] MEDS ORDERED: NICOTINE PATCH 14 MG TD SCH (23:45)
[2017-01-15] MEDS: HYDROmorphone HCL INJ 2 MG/ML VIAL IV SCH
[2017-01-15] MEDS: PROMETHAZINE HCL 25 MG TAB PO PRN ×3 (00:32→17:35)
[2017-01-15] MEDS: tiZANidine 4 MG TAB PO PRN ×2 (00:32→12:27)
[2017-01-15] MEDS: PREGABALIN 75 MG CAP PO SCH ×4 (00:32→20:44)
[2017-01-15] MEDS: HYDROmorphone HCL INJ 2 MG/ML VIAL IV PRN ×6 (04:22→21:39)
[2017-01-15] MEDS: SODIUM CHLORIDE 0.9% 1000ML 1,000 ML IVS PRN ×2 (05:43→16:05)
[2017-01-15] MEDS: METOCLOPRAMIDE HCL 5 MG TAB PO SCH (06:08)
[2017-01-15] MEDS: OMEPRAZOLE CAP 20 MG CAP PO SCH (06:09)
[2017-01-15] MEDS: SUCRALFATE 1 GM/10 ML 1 GM UD PO SCH ×4 (06:09→20:45)
[2017-01-15] MEDS: INSULIN DETEMIR 100 UNITS/ML PEN SUBCU SCH ×2 (07:55→09:41)
[2017-01-15] MEDS: INSULIN LISPRO 100 UNITS/ML PEN SUBCU SCH ×4 (07:56→20:50)
[2017-01-15] MEDS: LEVALBUTEROL NEBS 1.25 MG/3 ML VIAL INH SCH ×3 (08:53→20:24)
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
[2017-01-15] MEDS ORDERED: FUROSEMIDE INJ 20 MG/2 ML VIAL IV ONE (11:00)
[2017-01-15] MEDS: CALCIUM CARBONATE-VITAMIN D 500 MG TAB PO SCH ×2 (11:05→20:45)
[2017-01-15] MEDS: diazePAM 5 MG TAB PO SCH ×2 (11:05→20:45)
[2017-01-15] MEDS: METOCLOPRAMIDE HCL INJ 10 MG/2 ML VIAL IV SCH ×3 (12:14→20:45)
[2017-01-15] MEDS: NICOTINE PATCH 14 MG TD SCH (20:44)
[2017-01-15] MEDS: ESCITALOPRAM 10 MG TAB PO SCH (20:44)
[2017-01-15] MEDS: ZOLPIDEM TARTRATE 10 MG TAB PO SCH (20:45)
[2017-01-15] MEDS: DIVALPROEX SODIUM ER 500 MG TAB PO SCH (20:45)
[2017-01-16] MEDS: SODIUM CHLORIDE 0.9% 1000ML 1,000 ML IVS PRN ×2 (02:43→13:31)
[2017-01-16] MEDS: HYDROmorphone HCL INJ 2 MG/ML VIAL IV PRN ×5 (02:45→20:24)
[2017-01-16] MEDS: PROMETHAZINE HCL 25 MG TAB PO PRN ×2 (02:45→20:25)
[2017-01-16] MEDS: METOCLOPRAMIDE HCL INJ 10 MG/2 ML VIAL IV SCH ×4 (06:49→20:29)
[2017-01-16] MEDS: OMEPRAZOLE CAP 20 MG CAP PO SCH (06:52)
[2017-01-16] MEDS: SUCRALFATE 1 GM/10 ML 1 GM UD PO SCH ×4 (06:52→20:26)
[2017-01-16] MEDS: LEVALBUTEROL NEBS 1.25 MG/3 ML VIAL INH SCH ×4 (07:46→19:56)
[2017-01-16] MEDS: diazePAM 5 MG TAB PO SCH ×2 (08:52→20:27)
[2017-01-16] MEDS: INSULIN LISPRO 100 UNITS/ML PEN SUBCU SCH ×4 (08:52→20:53)
[2017-01-16] MEDS: PREGABALIN 75 MG CAP PO SCH ×3 (08:52→20:26)
[2017-01-16] MEDS: INSULIN DETEMIR 100 UNITS/ML PEN SUBCU SCH (08:53)
[2017-01-16] MEDS: CALCIUM CARBONATE-VITAMIN D 500 MG TAB PO SCH ×2 (08:53→20:27)
[2017-01-16] MEDS ORDERED: INSULIN DETEMIR 100 UNITS/ML PEN SUBCU ONE (11:19)
[2017-01-16] MEDS: ONDANSETRON INJ 4 MG/2 ML VIAL IV PRN ×2 (11:27→16:08)
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
--- NOTE | 2017-01-16 11:55 | RAD ---
EXAM DESCRIPTION: XR ABDOMEN 1 VIEW (KUB) CLINICAL HISTORY: abd pain, gastris retention? COMPARISON: None Available. TECHNIQUE: KUB FINDINGS: There is an unremarkable bowel gas pattern. No obstruction or ileus is evident. The diaphragms are not imaged but no evidence of fluid or gas distended stomach on the upper extent of the imaging to the L1-2 level is noted. No soft tissue masses or unusual calcifications are noted. Age appropriate bony degenerative changes are present. IMPRESSION: Normal examination Electronically signed by: Can Hunter MD 01/16/2017 11:55 AM CDT
[2017-01-16] MEDS: tiZANidine 4 MG TAB PO PRN (13:27)
[2017-01-16] MEDS: ESCITALOPRAM 10 MG TAB PO SCH (20:26)
[2017-01-16] MEDS: DIVALPROEX SODIUM ER 500 MG TAB PO SCH (20:27)
[2017-01-16] MEDS: ZOLPIDEM TARTRATE 10 MG TAB PO SCH (20:27)
[2017-01-16] MEDS: NICOTINE PATCH 14 MG TD SCH (20:27)
[2017-01-17] MEDS: HYDROmorphone HCL INJ 2 MG/ML VIAL IV PRN ×2 (00:37→04:48)
[2017-01-17] MEDS: tiZANidine 4 MG TAB PO PRN ×3 (00:37→21:33)
[2017-01-17] MEDS: SODIUM CHLORIDE 0.9% 1000ML 1,000 ML IVS PRN ×2 (01:39→13:41)
[2017-01-17] MEDS: ONDANSETRON INJ 4 MG/2 ML VIAL IV PRN (05:33)
[2017-01-17] MEDS: OMEPRAZOLE CAP 20 MG CAP PO SCH (06:07)
[2017-01-17] MEDS: SUCRALFATE 1 GM/10 ML 1 GM UD PO SCH ×2 (06:07→10:27)
[2017-01-17] MEDS: METOCLOPRAMIDE HCL INJ 10 MG/2 ML VIAL IV SCH ×2 (06:07→12:46)
[2017-01-17] MEDS: INSULIN LISPRO 100 UNITS/ML PEN SUBCU SCH ×4 (08:03→21:25)
[2017-01-17] MEDS ORDERED: INSULIN DETEMIR 100 UNITS/ML PEN SUBCU ONE (08:05)
[2017-01-17] MEDS: LEVALBUTEROL NEBS 1.25 MG/3 ML VIAL INH SCH ×3 (08:06→20:02)
[2017-01-17] MEDS: PREGABALIN 75 MG CAP PO SCH ×3 (08:52→21:24)
[2017-01-17] MEDS: diazePAM 5 MG TAB PO SCH ×2 (08:52→21:24)
[2017-01-17] MEDS: CALCIUM CARBONATE-VITAMIN D 500 MG TAB PO SCH ×2 (08:52→21:24)
[2017-01-17] MEDS ORDERED: HYDROcodone 5MG/APAP 325MG 1 EA TAB ONE (09:20)
[2017-01-17] MEDS: HYDROcodone 5MG/APAP 325MG 1 EA TAB PO PRN ×2 (09:30→17:18)
[2017-01-17] MEDS ORDERED: MORPHINE SULFATE INJ 10 MG/ML VIAL IV PRN (09:48)
--- NOTE | 2017-01-17 11:27 | CT ---
EXAM DESCRIPTION: CT ABDOMEN AND PELVIS WITH CONTRAST CLINICAL HISTORY: left sided abdominal pain COMPARISON: December 18, 2016 TECHNIQUE: CT of the abdomen and pelvis are performed during IV bolus administration of nonionic contrast. Small amount of opaque material in the dependent stomach is noted with very little luminal contrast otherwise noted. This exam was performed according to our departmental dose-optimization program, which includes automated exposure control, adjustment of the mA and/or kV according to patient size and/or use of iterative reconstruction technique. FINDINGS: Examination is correlated with recent noncontrast examination. The lung bases are clear and no hiatal hernia or free abdominal air is seen. The anterior abdominal wall is unremarkable. The bony structures are normal. Fluid-filled distended stomach with debris and opaque material along the posterior wall is present without significant wall thickening or inflammation. Beginning in the second portion of the duodenum and continuing through the jejunum and at least to the proximal ileal level is significant bowel wall thickening and enhancement consistent with small bowel inflammation and mild dilation. A pattern to suggest high-grade obstruction is not apparent. The distal ileal loops near the ileocecal valve are normal in caliber. This pattern has progressed from previous study and is most consistent with some form of a small bowel inflammation. No abnormality of the colon is noted with a normal stool-filled the right and transverse and left colon without acute inflammation. There is questionably a tiny amount of free fluid in the cul-de-sac or possibly the posterior location of the right ovary. The uterus appears to be surgically absent and no specific adnexal mass or other inflammation within the abdominal cavity or mesentery is seen. The liver and spleen are normal in appearance and the gallbladder surgically absent with no abnormal ductal dilation. The pancreas is normal in appearance and no adrenal masses are noted. The kidneys intensely enhance without mass or cyst or obstruction or perinephric fluid collection. Retroperitoneum and aorta is unremarkable. IMPRESSION: 1. Abnormal duodenum and jejunum and proximal ileum with predominant bowel wall thickening and enhancement and a modest dilatation in several locations with return to a normal appearance of the distal ileum and colon. An inflammatory process of the proximal and mid small bowel without obstruction is suspected. Entities such as giardiasis and sprue should be considered. Bowel wall infiltrative process would be a consideration but focal masses or adenopathy are not apparent. This pattern is progressed from recent prior noncontrast study. 2. No specific abnormality of the stomach or colon is noted with moderate stool suggesting an element of constipation. 3. Prior cholecystectomy and prior hysterectomy. 4. Questionable tiny amount of abdominal fluid in the posterior cul-de-sac of the pelvis on the right. Electronically signed by: Can Hunter MD 01/17/2017 11:26 AM CDT
[2017-01-17] MEDS: POTASSIUM CHLORIDE 10 MEQ TAB PO SCH (12:46)
[2017-01-17] MEDS ORDERED: methylPREDNISolone SODIUM SUC 40 MG/ML VIAL IV ONE (12:54)
[2017-01-17] MEDS ORDERED: METOCLOPRAMIDE HCL 5 MG TAB ONE (14:49)
[2017-01-17] MEDS ORDERED: SUCRALFATE 1 GM TAB PO ONE (14:49)
[2017-01-17] MEDS: METOCLOPRAMIDE HCL 5 MG TAB PO SCH ×2 (17:18→21:24)
[2017-01-17] MEDS: SUCRALFATE 1 GM TAB PO SCH ×2 (17:18→21:24)
[2017-01-17] MEDS ORDERED: MAGNESIUM HYDROXIDE 30 ML UD PO ONE (18:17)
[2017-01-17] MEDS: PROMETHAZINE HCL 25 MG TAB PO PRN (19:01)
--- NOTE | 2017-01-17 20:51 | PCM.CORE ---
Physician DVT/VTE - Nurse DVT Assessment & Total Each Risk Factor Represents 1 Point: Hx of smoking past year Each Risk Factor is 1 Point: Hx of Inflammatory Bowel Disease, Obesity (BMI >25) DVT Assessment Score: 3 - 3-4 High Risk Treatments: Early Ambulation *, Sequential Compression Device Pharmacological: Enoxaparin 40 mg SQ Daily
[2017-01-17] MEDS ORDERED: NON-FORMULARY MEDICATION 1 EA MIS (Tizanidine Hcl [Zanaflex] 4 MG) PO SCH (21:00)
[2017-01-17] MEDS ORDERED: ENOXAPARIN SODIUM 40 MG/0.4 ML SYG SUBCU SCH (21:00)
[2017-01-17] MEDS ORDERED: INSULIN DETEMIR 100 UNITS/ML PEN SUBCU SCH (21:00)
[2017-01-17] MEDS: ZOLPIDEM TARTRATE 10 MG TAB PO SCH (21:24)
[2017-01-17] MEDS: DIVALPROEX SODIUM ER 500 MG TAB PO SCH (21:24)
[2017-01-17] MEDS: NICOTINE PATCH 14 MG TD SCH (21:25)
[2017-01-17] MEDS: ESCITALOPRAM 10 MG TAB PO SCH (21:30)
[2017-01-18] MEDS: SODIUM CHLORIDE 0.9% 1000ML 1,000 ML IVS PRN (00:27)
[2017-01-18] MEDS: IV SET AND CAP CHANGE INJ INJ SCH (00:27)
[2017-01-18] MEDS: SUCRALFATE 1 GM TAB PO SCH ×2 (06:19→12:31)
[2017-01-18] MEDS: METOCLOPRAMIDE HCL 5 MG TAB PO SCH ×2 (06:19→12:32)
[2017-01-18] MEDS: OMEPRAZOLE CAP 20 MG CAP PO SCH (06:19)
[2017-01-18] MEDS: INSULIN LISPRO 100 UNITS/ML PEN SUBCU SCH ×2 (08:20→12:32)
[2017-01-18] MEDS: POTASSIUM CHLORIDE 10 MEQ TAB PO SCH (08:21)
[2017-01-18] MEDS: PREGABALIN 75 MG CAP PO SCH ×2 (08:22→15:19)
[2017-01-18] MEDS: CALCIUM CARBONATE-VITAMIN D 500 MG TAB PO SCH (08:23)
[2017-01-18] MEDS: diazePAM 5 MG TAB PO SCH (08:23)
[2017-01-18] MEDS: tiZANidine 4 MG TAB PO SCH ×2 (08:23→15:19)
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
[2017-01-18] MEDS ORDERED: POLYETHYLENE GLYCOL 3350 17 GM PCKT PO SCH (09:00)
[2017-01-18] MEDS: HYDROcodone 5MG/APAP 325MG 1 EA TAB PO PRN ×2 (09:32→15:19)
[2017-01-18] MEDS: LEVALBUTEROL NEBS 1.25 MG/3 ML VIAL INH SCH ×2 (10:02→13:58)
[2017-01-18 11:04] VITALS: O2SAT 98
[2017-01-18] MEDS: DICYCLOMINE HCL 20 MG TAB PO SCH ×2 (12:32→15:09)
[2017-01-18] MEDS ORDERED: DICYCLOMINE HCL 20 MG TAB PO SCH (13:00)
[2017-01-18] MEDS ORDERED: INSULIN DETEMIR 100 UNITS/ML PEN SUBCU SCH (13:00)
[2017-01-18] MEDS ORDERED: predniSONE 20 MG TAB PO SCH (13:00)
[2017-01-18 14:29] VITALS: BP 121/78; TEMP 98.2
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
== END 2017-01-18 16:10 | disposition home or self-care (01) | DRG 74 ==
LOC: ER 14:33 → MS 22:10 → OBSVTOIN 22:10
PROVIDERS: ADMIT Emergency Medicine; ATTEND Nurse Practitioner Family
PROC: BW21YZZ Computerized Tomography (CT Scan) of Abdomen and Pelvis using Other Contrast (ICD-10-PCS; principal; 2017-01-17)
DX: E10.43 Type 1 diabetes mellitus with diabetic autonomic (poly)neuropathy (principal); E10.10 Type 1 diabetes mellitus with ketoacidosis without coma; E86.0 Dehydration; J44.9 Chronic obstructive pulmonary disease, unspecified; L30.9 Dermatitis, unspecified; M79.7 Fibromyalgia; M54.5 Low back pain; K31.84 Gastroparesis; G89.4 Chronic pain syndrome; G40.909 Epilepsy, unspecified, not intractable, without status epilepticus; R93.3 Abnormal findings on diagnostic imaging of other parts of digestive tract; K59.00 Constipation, unspecified; F41.9 Anxiety disorder, unspecified; F17.210 Nicotine dependence, cigarettes, uncomplicated; Z91.012 Allergy to eggs; Z91.010 Allergy to peanuts; Z91.013 Allergy to seafood; Z79.4 Long term (current) use of insulin; Z79.891 Long term (current) use of opiate analgesic; Z79.899 Other long term (current) drug therapy; Z98.890 Other specified postprocedural states

== ENCOUNTER 2017-01-26 18:56 | Emergency (ER) | payer MEDICARE, OTHER ==
--- NOTE | 2017-01-26 19:11 | ED.PDOC ---
History of Present Illness - General Chief Complaint: General Stated Complaint: abdominal pain and distention Time Seen by Provider: 01/26/17 19:05 Source: patient Exam Limitations: no limitations - History of Present Illness Initial Comments: Shwetha Perkins 41 y/o female with history of chronic abdominal pain which is sharp/ shooting/cramping and stated her belly is getting more distended today with N/V/ D also today.No fever no chills no n/v while in er room. Had been seen by gi specialist and egd done was told has gastroparesis.Eaten breakfast this am and stated got sick with it and did not have lunch or dinner.She has history of dm1 and chronic low back pain. Timing/Duration: other - one year Improving Factors: nothing Worsening Factors: eating Associated Symptoms: nausea/vomiting, other - diarrhea today Allergies/Adverse Reactions: Allergies Eggs or Egg-derived Products Allergy (Verified 01/06/17 22:35) Fish Allergy Allergy (Verified 01/06/17 22:35) peanut Allergy (Severe, Uncoded 01/06/17 22:36) eggs Allergy (Uncoded 01/06/17 22:36) Home Medications: Ambulatory Orders Escitalopram Oxalate [Lexapro] 40 mg PO MOWEFR 06/22/15 Insulin Lispro [Humalog] See Protocol SC ACHS PRN 06/22/15 Escitalopram [Lexapro] 20 mg PO SUTUTHSA 04/09/16 Zolpidem Tartrate [Ambien] 10 mg PO BEDTIME 04/09/16 Diazepam [Valium] 10 mg PO DAILY #10 tab 08/11/16 Divalproex Sodium ER [Depakote ER] 500 mg PO BEDTIME 08/18/16 Pregabalin [Lyrica] 150 mg PO TID 08/18/16 Metoclopramide Tab [Reglan Tab] 5 mg PO ACHS #120 tab 08/20/16 Promethazine Tab [Phenergan Tablet] 25 mg PO Q6H PRN #30 tab 08/20/16 Tizanidine HCl [Zanaflex] 4 mg PO TID 12/18/16 Acetaminophen W/ Codeine [Tylenol W/ CODEINE #3] 1 ea PO Q4HR PRN #12 01/07/17 Insulin Detemir [Levemir Pen] 35 units SUBCU DAILY 01/07/17 Promethazine Supp [Phenergan Suppository] 25 mg OR Q6HR PRN #12 sup 01/07/17 Calcium Carb 500Mg-Vitamin D [Oscal 500 + D] 1 each PO BID #60 each 01/18/17 Dicyclomine HCl [Bentyl] 20 mg PO QID #40 each 01/18/17 Omeprazole [Prilosec Cap] 40 mg PO DAILY #30 each 01/18/17 Polyethylene Glycol 3350 [Miralax] 17 gm PO DAILY #30 pack 01/18/17 Sucralfate Tab [Carafate Tab] 1 gm PO ACHS #15 tab 01/18/17 predniSONE 40 mg PO DAILY #10 each 01/18/17 Review of Systems - Review of Systems Constitutional: States: no symptoms reported EENTM: States: no symptoms reported Respiratory: States: no symptoms reported Cardiology: States: no symptoms reported Gastrointestinal/Abdominal: States: see HPI Genitourinary: States: no symptoms reported Skin: States: no symptoms reported Neurological: States: no symptoms reported Endocrine: States: no symptoms reported Hematologic/Lymphatic: States: no symptoms reported Past Medical History (General) - Patient Medical History Hx Seizures: Yes Hx Stroke: No Hx Dementia: No Hx Asthma: No Hx of COPD: No Hx Cardiac Disorders: No Hx Congestive Heart Failure: No Hx Pacemaker: No Hx Hypertension: No Hx Thyroid Disease: No Hx Diabetes: Yes Hx Gastroesophageal Reflux: No Hx Renal Disease: No Hx Cancer: No Hx of HIV: No Hx Hepatitis C: No Hx MRSA: No Hx Other PMH: Yes - chronic low back pain MRSA Source:: Blood Surgical History: appendectomy, cholecystectomy, other - hysterectomy - Vaccination History Hx Tetanus, Diphtheria Vaccination: No Hx Influenza Vaccination: No Hx Pneumococcal Vaccination: No - Social History Hx Tobacco Use: Yes Hx Chewing Tobacco Use: No Hx Alcohol Use: No Hx Substance Use: No Hx Substance Use Treatment: No Hx Depression: Yes Hx Physical Abuse: No Hx Emotional Abuse: No Hx Suspected Abuse: No - Activities of Daily Living Patient Lives Alone: No - - Female History Hx Last Menstrual Period: 11/05/11 Patient : No Family Medical History - Family History Mother Family History: No Known Name: April Age (years): 67 Living Status: Still Living Hx Family Asthma: No Hx Family Congestive Heart Failure: No Hx Family Hypertension: No Hx Family Stroke: No Hx Cardiac Disease: No Hx Family Diabetes: No Hx Family Cancer: No Hx Family;Other: Thyroid -mom;HTN-dad Father Family History: No Known Name: Marlon Age (years): 65 Living Status: Still Living Hx Family Asthma: No - Sister Hx Family Congestive Heart Failure: No Hx Family Hypertension: Yes Hx Family Stroke: No Hx Cardiac Disease: No - Grandfather. Hx Family Diabetes: No - Pt Age of Onset (years of age): 33 Hx Family Cancer: Yes - Grandmother Lympoma Physical Exam - Physical Exam General Appearance: Alert, Anxious, No apparent distress Eye Exam: bilateral normal Ears, Nose, Throat: hearing grossly normal, normal ENT inspection, normal pharynx Neck: non-tender, full range of motion, supple, normal inspection Respiratory: chest non-tender, lungs clear, normal breath sounds, no respiratory distress Cardiovascular/Chest: normal peripheral pulses, regular rate, rhythm, no edema, no murmur Gastrointestinal/Abdominal: normal bowel sounds, soft, no organomegaly, distended - slight distention, tenderness - slight tenderness no peritoneal signs Back Exam: normal inspection, no CVA tenderness, no vertebral tenderness Extremity: normal range of motion, non-tender, no calf tenderness Neurologic: no motor/sensory deficits, alert, oriented x 3 Skin Exam: normal color, warm/dry Lymphatic: no adenopathy Progress - Progress Progress: 01/26/17 20:24 Vital Signs - 8 hr 01/26/17 19:00 Temperature 98.4 F Pulse Rate [ 105 H Apical] Respiratory 18 Rate Blood Pressure 112/79 [Left Arm] O2 Sat by Pulse 96 Oximetry 01/26/17 22:28 Vital Signs - 8 hr 01/26/17 01/26/17 01/26/17 19:00 20:56 21:52 Temperature 98.4 F 97.6 F 97.6 F Pulse Rate [ 105 H 87 87 Apical] Respiratory 18 18 18 Rate Blood Pressure 112/79 106/67 107/64 [Left Arm] O2 Sat by Pulse 96 95 95 Oximetry - Results/Orders Results/Orders: Vital Signs - 8 hr 01/26/17 01/26/17 19:00 20:56 Temperature 98.4 F 97.6 F Pulse Rate [ 105 H 87 Apical] Respiratory 18 18 Rate Blood Pressure 112/79 106/67 [Left Arm] O2 Sat by Pulse 96 95 Oximetry 01/26/17 20:13 Abdomen Flat & Upright [RAD] Stat Laboratory Results - last 24 hr 01/26/17 01/26/17 01/26/17 19:11 19:38 20:00 WBC 7.8 RBC 4.54 Hgb 12.1 Hct 36.5 MCV 80.5 L MCH 26.6 L MCHC 33.1 RDW 14.8 H Plt Count 219 MPV 8.9 Absolute Neuts (auto) 4.60 Absolute Lymphs (auto) 2.50 Absolute Monos (auto) 0.40 Absolute Eos (auto) 0.10 Absolute Basos (auto) 0.20 H Neutrophils % 59.1 Lymphocytes % 31.6 Monocytes % 5.5 Eosinophils % 1.7 Basophils % 2.1 H Sodium 137 Potassium 4.2 Chloride 105 Carbon Dioxide 24 Anion Gap 12.2 BUN 13 Creatinine 0.56 L BUN/Creatinine Ratio 23.2 H Random Glucose 183 H Serum Osmolality 278.6 Calcium 8.9 Total Bilirubin 0.4 AST 189 H ALT 149 H Alkaline Phosphatase 112 Serum Total Protein 6.4 Albumin 3.5 Globulin 2.9 Albumin/Globulin Ratio 1.2 Lipase 77 H TSH 0.45 Urine Color Urine Appearance Urine pH Ur Specific [place] Urine Protein Urine Glucose (UA) Urine Ketones Urine Blood Urine Nitrite Urine Bilirubin Urine Urobilinogen Ur Leukocyte Esterase Urine RBC Urine WBC Ur Epithelial Cells Urine Bacteria Urine Mucus Urine Opiates Screen Positive H Urine Barbiturates Negative Ur Phencyclidine Scrn Negative U Amphetamin/Meth Scrn Negative U Benzodiazepines Scrn Positive H U Cocaine Metab Screen Negative U Cannabinoids Screen Negative 01/26/17 20:00 WBC RBC Hgb Hct MCV MCH MCHC RDW Plt Count MPV Absolute Neuts (auto) Absolute Lymphs (auto) Absolute Monos (auto) Absolute Eos (auto) Absolute Basos (auto) Neutrophils % Lymphocytes % Monocytes % Eosinophils % Basophils % Sodium Potassium Chloride Carbon Dioxide Anion Gap BUN Creatinine BUN/Creatinine Ratio Random Glucose Serum Osmolality Calcium Total Bilirubin AST ALT Alkaline Phosphatase Serum Total Protein Albumin Globulin Albumin/Globulin Ratio Lipase TSH Urine Color Yellow Urine Appearance Clear Urine pH 7.0 Ur Specific [place] 1.020 Urine Protein Negative Urine Glucose (UA) 500 H Urine Ketones Negative Urine Blood Trace-intact H Urine Nitrite Negative Urine Bilirubin Negative Urine Urobilinogen 0.2 Ur Leukocyte Esterase Negative Urine RBC 5-10 H Urine WBC 0-1 Ur Epithelial Cells 3-5 Urine Bacteria Rare Urine Mucus Trace Urine Opiates Screen Urine Barbiturates Ur Phencyclidine Scrn U Amphetamin/Meth Scrn U Benzodiazepines Scrn U Cocaine Metab Screen U Cannabinoids Screen - EKG/XRAY/CT CT Ordered: Yes - abd/pelvis: no acute abnormalities noted Departure - Departure Clinical Impression: Abdominal distension (gaseous), Hx of diabetic gastroparesis, Abnormal liver function tests Nausea & vomiting Qualifiers: Vomiting type: unspecified Vomiting Intractability: non-intractable Qualified Code(s): R11.2 - Nausea with vomiting, unspecified Abdominal pain Qualifiers: Abdominal location: generalized Qualified Code(s): R10.84 - Generalized abdominal pain Time of Disposition: 22:33 Disposition: Discharge to Home or Self Care Diet: full liquid diet - in am then to advance as tolerated, other - May have small sips of clear liquids for tonight;Avoid greasy,spicy,dairy foods until better Referrals: Joby Rangel MD [Primary Care Provider] - 1-2 Weeks Home Medications: Ambulatory Orders Escitalopram Oxalate [Lexapro] 40 mg PO MOWEFR 06/22/15 Insulin Lispro [Humalog] See Protocol SC ACHS PRN 06/22/15 Escitalopram [Lexapro] 20 mg PO SUTUTHSA 04/09/16 Zolpidem Tartrate [Ambien] 10 mg PO BEDTIME 04/09/16 Diazepam [Valium] 10 mg PO DAILY #10 tab 08/11/16 Divalproex Sodium ER [Depakote ER] 500 mg PO BEDTIME 08/18/16 Pregabalin [Lyrica] 150 mg PO TID 08/18/16 Metoclopramide Tab [Reglan Tab] 5 mg PO ACHS #120 tab 08/20/16 Promethazine Tab [Phenergan Tablet] 25 mg PO Q6H PRN #30 tab 08/20/16 Tizanidine HCl [Zanaflex] 4 mg PO TID 12/18/16 Acetaminophen W/ Codeine [Tylenol W/ CODEINE #3] 1 ea PO Q4HR PRN #12 01/07/17 Insulin Detemir [Levemir Pen] 35 units SUBCU DAILY 01/07/17 Promethazine Supp [Phenergan Suppository] 25 mg OR Q6HR PRN #12 sup 01/07/17 Calcium Carb 500Mg-Vitamin D [Oscal 500 + D] 1 each PO BID #60 each 01/18/17 Dicyclomine HCl [Bentyl] 20 mg PO QID #40 each 01/18/17 Omeprazole [Prilosec Cap] 40 mg PO DAILY #30 each 01/18/17 Polyethylene Glycol 3350 [Miralax] 17 gm PO DAILY #30 pack 01/18/17 Sucralfate Tab [Carafate Tab] 1 gm PO ACHS #15 tab 01/18/17 predniSONE 40 mg PO DAILY #10 each 01/18/17 Additional Instructions: Continue with all home medications;Follow up with primary md 01/28/2017 call for appointment;Return to emergency room as needed
[2017-01-26] MEDS ORDERED: LACTATED RINGERS 1,000 ML IVS ONE (20:13)
--- NOTE | 2017-01-26 20:23 | RAD ---
EXAM: Chest,1 View CLINICAL INDICATION: 41-year-old female with pain. TECHNIQUE: Single view, AP portable chest was obtained. COMPARISON: 12/11/2016. FINDINGS: Stable cardiac and mediastinal silhouette. Heart size is normal. Lungs are clear without focal opacity, pneumothorax or pleural effusions. The visualized bones are within normal limits. IMPRESSION: No acute cardiopulmonary abnormalities. Electronically signed by: Justa Paniagua MD 01/26/2017 8:21 PM CDT Workstation: [id number]
[2017-01-26 20:57] VITALS: O2SAT 95
--- NOTE | 2017-01-26 21:03 | CT ---
EXAM DESCRIPTION: Abdoment/Pelvis w/o Contrast01/26/2017 8:59 PM CDT CLINICAL HISTORY: 41 years, Female, pain distention COMPARISON: None. TECHNIQUE: Volumetric CT acquisition was performed through the abdomen and pelvis. Images in the axial and coronal planes were presented for interpretation This exam was performed according to our departmental dose-optimization program, which includes automated exposure control, adjustment of the mA and/or kV according to patient size and/or use of iterative reconstruction technique. FINDINGS: The visualized portions of the lung bases are clear. The cardiomediastinal structures are within normal limits. Within the upper abdomen, the liver and spleen are normal in size and morphology. The gallbladder is surgically absent. The intra/extrahepatic biliary tree is normal in appearance. The pancreas and adrenal glands are normal. The right kidney is normal in size and the right ureter is normal in course and caliber. There are no right renal calculi, distal obstructing stones, or evidence of hydronephrosis/hydroureter. The left kidney is normal in size and the left ureter is normal in course and caliber. There are no left renal calculi, distal obstructing stones, or evidence of hydronephrosis/hydroureter. The stomach and small intestines are within normal limits without evidence of bowel dilation or wall thickening. The previously noted proximal small bowel wall thickening is not appreciated on this exam. The appendix is surgically absent. The colon is stool filled and unremarkable. Within the pelvis, the bladder and rectum are normal. The uterus and right ovary are not well visualized. The left ovary is normal in appearance. There are no pathologically enlarged inguinal, retroperitoneal, portacaval, or mesenteric lymph nodes. The soft tissue structures of the abdominal wall are normal. The visualized osseous structures are within normal limits for the patient's age. The abdominal aorta and its primary branches are normal in course and caliber. Limited evaluation of the venous structures demonstrates no gross abnormalities. IMPRESSION: 1. No acute intra-abdominal process or evidence of residual small bowel wall thickening. 2. No renal calculi or distal obstructing stones. 3. Status post cholecystectomy, hysterectomy, appendectomy. Electronically signed by: Maxx Rios MD 01/26/2017 9:01 PM CDT Workstation: [id number]
[2017-01-26] MEDS ORDERED: PROMETHAZINE HCL INJ 25 MG/ML VIAL IM ONE (21:13)
[2017-01-26] MEDS ORDERED: MORPHINE SULFATE INJ 10 MG/ML VIAL IV ONE (21:13)
[2017-01-26 22:56] VITALS: BP 114/70; TEMP 97
== END 2017-01-26 22:50 | disposition home or self-care (01) ==
LOC: ER 18:56
DX: R10.84 Generalized abdominal pain (principal); R11.2 Nausea with vomiting, unspecified; R14.0 Abdominal distension (gaseous); R79.89 Other specified abnormal findings of blood chemistry; R19.7 Diarrhea, unspecified; E11.9 Type 2 diabetes mellitus without complications; Z87.891 Personal history of nicotine dependence; Z86.14 Personal history of Methicillin resistant Staphylococcus aureus infection; Z90.49 Acquired absence of other specified parts of digestive tract; Z90.710 Acquired absence of both cervix and uterus; Z79.4 Long term (current) use of insulin; Z79.899 Other long term (current) drug therapy; Z91.013 Allergy to seafood
CPT/HCPCS: 71010; 74176; 80053; 80307; 81001; 83690; 84443; 85025; J2270; J2550; J7120

== ENCOUNTER → 2017-01-28 | Outpatient (CLI) | payer MEDICARE, OTHER | END | disposition home or self-care (01) | LOC: YCFC.O 10:22 | PROVIDERS: ATTEND Anesthesiology Pain Medicine | DX: Z79.891 Long term (current) use of opiate analgesic (principal) ==

== ENCOUNTER 2017-01-29 16:53 | Emergency (ER) | payer MEDICARE, OTHER ==
[2017-01-29] MEDS ORDERED: SODIUM CHLORIDE 0.9% 1000ML 1,000 ML IVS ONE (17:41)
[2017-01-29] MEDS ORDERED: PROMETHAZINE HCL INJ 25 MG in SODIUM CHLORIDE 0.9% 50ML 50 ML IVPB ONE (17:41)
[2017-01-29] MEDS ORDERED: HYDROmorphone HCL INJ 2 MG/ML VIAL IV ONE (17:41)
--- NOTE | 2017-01-29 17:49 | ED.PDOC ---
History of Present Illness - General Chief Complaint: Abdominal Pain Stated Complaint: abdominal pain Time Seen by Provider: 01/29/17 17:03 Information Source: patient, RN notes reviewed, Vital Signs reviewed, old records Exam Limitations: no limitations - History of Present Illness Initial Comments: Patient is here with her usual complaints of L sided abdominal pain, vomiting and diarrhea. She is requesting Dilaudid and transfer to a hospital in [facility] so she can see more specialists. Reports this episode started last night. She was just see here for same complaints 01/26/17. Reviewed visits for January 2017, of which this is the 4th. She has received narcotics at every visit. Review of state database, this month she has received narcotic Rx X 3 - [place]. Explained that narcotic use can worsen her symptoms. Does not care, still wants Dilaudid. Abdominal Pain Onset Location: LUQ Pain Radiation: no radiation Quality: moderate, sharpness Timing/Duration: 24 hours Improving Factors: nothing Worsening Factors: nothing Associated Symptoms: nausea/vomiting, swelling/mass in abdomen Review of Systems - Review of Systems Constitutional: Denies: chills, fever, malaise, weakness Respiratory: States: no symptoms reported Cardiology: States: no symptoms reported Gastrointestinal/Abdominal: States: see HPI, abdominal pain, diarrhea, nausea, vomiting Musculoskeletal: States: no symptoms reported Skin: States: no symptoms reported Neurological: States: no symptoms reported All other Systems: No Change from Baseline Past Medical History (General) - Patient Medical History Hx Seizures: Yes Hx Stroke: No Hx Dementia: No Hx Asthma: No Hx of COPD: No Hx Cardiac Disorders: No Hx Congestive Heart Failure: No Hx Pacemaker: No Hx Hypertension: No Hx Thyroid Disease: No Hx Diabetes: Yes Hx Gastroesophageal Reflux: No Hx Renal Disease: No Hx Cancer: No Hx of HIV: No Hx Hepatitis C: No Hx MRSA: No MRSA Source:: Blood Surgical History: appendectomy, cholecystectomy, Hysterectomy - Vaccination History Hx Tetanus, Diphtheria Vaccination: No Hx Influenza Vaccination: No Hx Pneumococcal Vaccination: No - Social History Hx Tobacco Use: Yes Cigarettes Packs Per Day: 1 Hx Chewing Tobacco Use: No Hx Alcohol Use: No Hx Substance Use: No Hx Substance Use Treatment: No Hx Depression: Yes Hx Physical Abuse: No Hx Emotional Abuse: No Hx Suspected Abuse: No - Activities of Daily Living Hospice Agency (if applicable):: None - Female History Patient is a Female of Child Bearing Age (10 -59 yrs old): No Hx Last Menstrual Period: 11/05/11 Patient : No Family Medical History - Family History Mother Family History: No Known Name: April Age (years): 67 Living Status: Still Living Hx Family Asthma: No Hx Family Congestive Heart Failure: No Hx Family Hypertension: No Hx Family Stroke: No Hx Cardiac Disease: No Hx Family Diabetes: No Hx Family Cancer: No Hx Family;Other: Thyroid -mom;HTN-dad Father Family History: No Known Name: Marlon Age (years): 65 Living Status: Still Living Hx Family Asthma: No - Sister Hx Family Congestive Heart Failure: No Hx Family Hypertension: Yes Hx Family Stroke: No Hx Cardiac Disease: No - Grandfather. Hx Family Diabetes: No - Pt Age of Onset (years of age): 33 Hx Family Cancer: Yes - Grandmother Lympoma Physical Exam - Physical Exam General Appearance: Alert, Comfortable, No apparent distress, Well Developed, Well Hydrated, Well Nourished Neck: normal inspection Respiratory: lungs clear, normal breath sounds, no respiratory distress, no accessory muscle use Cardiovascular/Chest: regular rate, rhythm, no edema, no gallop, no JVD, no murmur Gastrointestinal/Abdominal: normal bowel sounds, no organomegaly, distended, guarding, tenderness - LUQ Extremity: normal inspection Neurologic: alert, normal mood/affect, oriented x 3 Skin Exam: normal color, warm/dry Progress - Progress Progress: 01/29/17 19:18 Patient requesting additional Dilaudid. Advised I would not be giving her more pain medication. Discussed with STEW Haines - he will not admit her to the hospital. She always leaves when she is no longer getting her pain medication and he feels her episodes of DKA and abd pain are self induced. She is just seeking Dilaudid. She has repeatedly asked for Dilaudid and wanted to be sure if she was admitted to the hospital that she would get Dilaudid. Will give Reg Insulin 18U SQ to help bring her blood sugar down, she is not currently in DKA but her BS is elevated @ 554. 01/29/17 19:37 Patient would now like to know when she can go home. Explained she was just given insulin and will need to wait to have blood sugar rechecked. 01/29/17 20:20 Patient was caught taking Xanax 1mg from her own bottle in ER. She has taken 3 doses in the time she has been here. Her bottle of #30 has 33 pills in it. She claims not to have taken Xanax, that she took her Bentyl but she cant find a bottle of bentyl in her purse. If blood sugar is better will d/c home FSBS 300 Departure - Departure Clinical Impression: Narcotic abuse, Uncontrolled diabetes mellitus, Gastroparesis Abdominal pain Qualifiers: Abdominal location: left upper quadrant Qualified Code(s): R10.12 - Left upper quadrant pain Time of Disposition: 20:26 Disposition: Discharge to Home or Self Care Condition: Good Departure Forms: ED Discharge - Pt. Copy, Patient Portal Self Enrollment Instructions: DI for Abdominal Pain-Adult Diet: diabetic diet Activity: increase activity as tolerated Referrals: Joby Rangel MD [Primary Care Provider] - 1-2 Weeks Home Medications: Ambulatory Orders Escitalopram Oxalate [Lexapro] 40 mg PO MOWEFR 06/22/15 Insulin Lispro [Humalog] See Protocol SC ACHS PRN 06/22/15 Escitalopram [Lexapro] 20 mg PO SUTUTHSA 04/09/16 Zolpidem Tartrate [Ambien] 10 mg PO BEDTIME 04/09/16 Diazepam [Valium] 10 mg PO DAILY #10 tab 08/11/16 Divalproex Sodium ER [Depakote ER] 500 mg PO BEDTIME 08/18/16 Pregabalin [Lyrica] 150 mg PO TID 08/18/16 Metoclopramide Tab [Reglan Tab] 5 mg PO ACHS #120 tab 08/20/16 Promethazine Tab [Phenergan Tablet] 25 mg PO Q6H PRN #30 tab 08/20/16 Tizanidine HCl [Zanaflex] 4 mg PO TID 12/18/16 Acetaminophen W/ Codeine [Tylenol W/ CODEINE #3] 1 ea PO Q4HR PRN #12 01/07/17 Insulin Detemir [Levemir Pen] 35 units SUBCU DAILY 01/07/17 Promethazine Supp [Phenergan Suppository] 25 mg [place] Q6HR PRN #12 sup 01/07/17 Calcium Carb 500Mg-Vitamin D [Oscal 500 + D] 1 each PO BID #60 each 01/18/17 Dicyclomine HCl [Bentyl] 20 mg PO QID #40 each 01/18/17 Omeprazole [Prilosec Cap] 40 mg PO DAILY #30 each 01/18/17 Polyethylene Glycol 3350 [Miralax] 17 gm PO DAILY #30 pack 01/18/17 Sucralfate Tab [Carafate Tab] 1 gm PO ACHS #15 tab 01/18/17 predniSONE 40 mg PO DAILY #10 each 01/18/17
[2017-01-29] MEDS ORDERED: PROMETHAZINE HCL INJ 25 MG/ML VIAL ONE (18:13)
[2017-01-29] MEDS ORDERED: SODIUM CHLORIDE 0.9% 50ML 50 ML ONE (18:14)
[2017-01-29 18:35] VITALS: O2SAT 97
[2017-01-29] MEDS ORDERED: INSULIN, REG.(HUMAN) 100 U/ML VIAL SUBCU ONE (19:10)
[2017-01-29 20:50] VITALS: BP 114/71; TEMP 98
== END 2017-01-29 20:49 | disposition home or self-care (01) ==
LOC: ER 16:53
DX: E11.43 Type 2 diabetes mellitus with diabetic autonomic (poly)neuropathy (principal); E11.65 Type 2 diabetes mellitus with hyperglycemia; K31.84 Gastroparesis; F13.10 Sedative, hypnotic or anxiolytic abuse, uncomplicated; R10.12 Left upper quadrant pain; F32.9 Major depressive disorder, single episode, unspecified; F17.210 Nicotine dependence, cigarettes, uncomplicated; Z90.49 Acquired absence of other specified parts of digestive tract; Z90.710 Acquired absence of both cervix and uterus; Z79.4 Long term (current) use of insulin; Z79.899 Other long term (current) drug therapy
CPT/HCPCS: 36415; 36416; 80053; 82009; 82948; 85025; A4216; J1170; J2550; J7030

== ENCOUNTER 2017-01-31 11:17 | Emergency (ER) | payer MEDICARE, OTHER ==
[2017-01-31 11:31] VITALS: TEMP 97.8
[2017-01-31] MEDS ORDERED: METOCLOPRAMIDE HCL INJ 10 MG/2 ML VIAL IV ONE (11:32)
[2017-01-31] MEDS ORDERED: MORPHINE SULFATE INJ 10 MG/ML VIAL IV ONE ×4 (11:32→18:10)
[2017-01-31] MEDS ORDERED: PROMETHAZINE HCL INJ 25 MG/ML VIAL IM ONE (12:05)
[2017-01-31] MEDS ORDERED: INSULIN, REG.(HUMAN) 100 U/ML VIAL IV ONE (12:52)
[2017-01-31] MEDS ORDERED: SODIUM CHLORIDE 0.9% 1000ML 1,000 ML IVS ONE (13:00)
--- NOTE | 2017-01-31 13:34 | RAD ---
EXAM DESCRIPTION: Chest,1 View CLINICAL HISTORY: Chest pain FINDINGS/ IMPRESSION: Comparison 01/26/2017 Normal cardiomediastinal silhouette. The lungs are clear. No pneumothorax No bony abnormality Electronically signed by: Can Baum MD 01/31/2017 1:33 PM CDT
--- NOTE | 2017-01-31 13:35 | ED.PDOC ---
History of Present Illness - General Chief Complaint: Diabetic Complaint Stated Complaint: elevated blood sugar Time Seen by Provider: 01/31/17 12:09 Source: patient, EMS notes reviewed Exam Limitations: no limitations - History of Present Illness Initial Comments: Shwetha Perkins 41 y/o female stated that she continue to throw up the last 3 days and unable to take anything down.She has history of DM1 and claims that she had been diagnosed with gastroparesis. Timing/Duration: constant, other - 3 days ago Severity: moderate Improving Factors: nothing Worsening Factors: nothing Associated Symptoms: nausea/vomiting Allergies/Adverse Reactions: Allergies Eggs or Egg-derived Products Allergy (Verified 01/29/17 17:09) Fish Allergy Allergy (Verified 01/29/17 17:09) peanut Allergy (Severe, Uncoded 01/29/17 17:09) eggs Allergy (Uncoded 01/29/17 17:09) Home Medications: Ambulatory Orders Escitalopram Oxalate [Lexapro] 40 mg PO MOWEFR 06/22/15 Insulin Lispro [Humalog] See Protocol SC ACHS PRN 06/22/15 Escitalopram [Lexapro] 20 mg PO SUTUTHSA 04/09/16 Zolpidem Tartrate [Ambien] 10 mg PO BEDTIME 04/09/16 Diazepam [Valium] 10 mg PO DAILY #10 tab 08/11/16 Divalproex Sodium ER [Depakote ER] 500 mg PO BEDTIME 08/18/16 Pregabalin [Lyrica] 150 mg PO TID 08/18/16 Metoclopramide Tab [Reglan Tab] 5 mg PO ACHS #120 tab 08/20/16 Promethazine Tab [Phenergan Tablet] 25 mg PO Q6H PRN #30 tab 08/20/16 Tizanidine HCl [Zanaflex] 4 mg PO TID 12/18/16 Acetaminophen W/ Codeine [Tylenol W/ CODEINE #3] 1 ea PO Q4HR PRN #12 01/07/17 Insulin Detemir [Levemir Pen] 35 units SUBCU DAILY 01/07/17 Promethazine Supp [Phenergan Suppository] 25 mg [place] Q6HR PRN #12 sup 01/07/17 Calcium Carb 500Mg-Vitamin D [Oscal 500 + D] 1 each PO BID #60 each 06/16/17 Dicyclomine HCl [Bentyl] 20 mg PO QID #40 each 01/18/17 Omeprazole [Prilosec Cap] 40 mg PO DAILY #30 each 01/18/17 Polyethylene Glycol 3350 [Miralax] 17 gm PO DAILY #30 pack 01/18/17 Sucralfate Tab [Carafate Tab] 1 gm PO ACHS #15 tab 01/18/17 predniSONE 40 mg PO DAILY #10 each 01/18/17 Review of Systems - Review of Systems Constitutional: States: no symptoms reported EENTM: States: no symptoms reported Respiratory: States: no symptoms reported Gastrointestinal/Abdominal: States: vomiting Musculoskeletal: States: no symptoms reported Skin: States: no symptoms reported Neurological: States: no symptoms reported Endocrine: States: no symptoms reported Hematologic/Lymphatic: States: no symptoms reported Past Medical History (General) - Patient Medical History Hx Seizures: Yes Hx Stroke: No Hx Dementia: No Hx Asthma: No Hx of COPD: No Hx Cardiac Disorders: No Hx Congestive Heart Failure: No Hx Pacemaker: No Hx Hypertension: No Hx Thyroid Disease: No Hx Diabetes: Yes Hx Gastroesophageal Reflux: No Hx Renal Disease: No Hx Cancer: No Hx of HIV: No Hx Hepatitis C: No Hx MRSA: No MRSA Source:: Blood Surgical History: appendectomy, cholecystectomy, other - hysterectomy - Vaccination History Hx Tetanus, Diphtheria Vaccination: No Hx Influenza Vaccination: No Hx Pneumococcal Vaccination: No - Social History Hx Tobacco Use: Yes Hx Chewing Tobacco Use: No Hx Alcohol Use: No Hx Substance Use: No Hx Substance Use Treatment: No Hx Depression: Yes Hx Physical Abuse: No Hx Emotional Abuse: No Hx Suspected Abuse: No - Female History Hx Last Menstrual Period: 11/05/11 Patient : No Family Medical History - Family History Mother Family History: No Known Name: April Age (years): 67 Living Status: Still Living Hx Family Asthma: No Hx Family Congestive Heart Failure: No Hx Family Hypertension: Yes - dad Hx Family Stroke: No Hx Cardiac Disease: No Hx Family Diabetes: No Hx Family Cancer: No Hx Family;Other: Thyroid -mom;HTN-dad Father Family History: No Known Name: Marlon Age (years): 65 Living Status: Still Living Hx Family Asthma: No - Sister Hx Family Congestive Heart Failure: No Hx Family Hypertension: Yes Hx Family Stroke: No Hx Cardiac Disease: No - Grandfather. Hx Family Diabetes: No - Pt Age of Onset (years of age): 33 Hx Family Cancer: Yes - Grandmother Lympoma Physical Exam - Physical Exam General Appearance: Anxious, No apparent distress Eye Exam: bilateral normal Ears, Nose, Throat: hearing grossly normal, normal ENT inspection, normal pharynx Neck: non-tender, full range of motion, supple Respiratory: chest non-tender, lungs clear, normal breath sounds, no respiratory distress Cardiovascular/Chest: normal peripheral pulses, regular rate, rhythm, tachycardia - 127/min Peripheral Pulses: radial,right: 1+, radial,left: 1+, dorsalis pedis,right: 1+, dorsalis pedis,left: 1+ Gastrointestinal/Abdominal: normal bowel sounds, non tender, soft, no organomegaly Back Exam: normal inspection, no CVA tenderness, no vertebral tenderness Extremity: normal range of motion, non-tender, normal inspection, no pedal edema , no calf tenderness Neurologic: no motor/sensory deficits, alert, normal mood/affect, oriented x 3 Skin Exam: normal color, warm/dry Lymphatic: no adenopathy Progress - Progress Progress: 01/31/17 17:45 Daughter stated that her mom with history of prescription drug especially alprazolam and pain pills-stated that her mom had been eating a lot and took several of her alprazolam 2 days ago and just sleeps all day. - Results/Orders Results/Orders: 01/31/17 12:09 DRUG SCREEN,7 PANEL,SERUM Stat 01/31/17 13:30 EKG STAT 01/31/17 15:23 Potassium Phosphates Inj [K-Phos Inj] 40 meq Sodium Chloride 0.9% 250Ml [NS 250ml] 250 ml IVPB ONCE 01/31/17 16:05 Dex 5% W/NaCl 0.45% 1000ML [D5 1/2NS 1000ml] 1,000 ml IVS .QD 01/31/17 16:30 Insulin, Reg.(Human) [HumuLIN R] 250 units Sodium Chl 0.9% 250Ml (Radha) [NS 250ml (RADHA)] 247.5 ml IVPB Q12H 01/31/17 16:43 Sodium Chloride 0.9% 1000ML [Ns 1000 ml] 1,000 ml IVS .QD 01/31/17 17:19 BASIC METABOLIC PANEL Stat TROPONIN-I Stat Laboratory Results - last 24 hr 01/31/17 01/31/17 01/31/17 11:40 12:10 12:10 WBC 23.9 H* D RBC 5.20 Hgb 13.7 Hct 46.2 MCV 88.9 MCH 26.4 L MCHC 29.7 L RDW 16.5 H Plt Count 320 MPV 9.6 Absolute Neuts (auto) Not Reportable Absolute Lymphs (auto) Not Reportable Absolute Monos (auto) Not Reportable Absolute Eos (auto) Not Reportable Neutrophils % Not Reportable Neutrophils % (Manual) 80.0 Lymphocytes % Not Reportable Lymphocytes % (Manual) 14.0 Monocytes % Not Reportable Monocytes % (Manual) 4.0 Eosinophils % Not Reportable Basophils % Not Reportable Band Neutrophils 2.0 RBC Morphology Plts [place] adequate pCO2 pO2 HCO3 ABG pH ABG O2 Saturation ABG Base Excess ABG Deoxyhemoglobin Oxyhemoglobin % Carboxyhemoglobin % Methemoglobin % Sat Calc Total Hemoglobin Sodium 138 Potassium 4.6 Chloride 111 Carbon Dioxide < 7 L* D Anion Gap 24.6 H BUN 19 H Creatinine 0.88 BUN/Creatinine Ratio 21.6 H POC Glucose > 400 H* D Random Glucose 512 H* Serum Osmolality 301.2 H Lactic Acid Calcium 7.1 L D Total Bilirubin 1.5 H D AST 31 ALT 164 H D Alkaline Phosphatase 169 H Troponin I Serum Total Protein 6.5 Albumin 3.6 Globulin 2.9 Albumin/Globulin Ratio 1.2 Lipase 23 D Urine Color Urine Appearance Urine pH Ur Specific [place] Urine Protein Urine Glucose (UA) Urine Ketones Urine Blood Urine Nitrite Urine Bilirubin Urine Urobilinogen Ur Leukocyte Esterase Urine RBC Urine WBC Ur Epithelial Cells Amorphous Sediment Urine Bacteria Urine Opiates Screen Urine Barbiturates Ur Phencyclidine Scrn U Amphetamin/Meth Scrn U Benzodiazepines Scrn U Cocaine Metab Screen U Cannabinoids Screen 01/31/17 01/31/17 01/31/17 12:10 13:15 13:15 WBC RBC Hgb Hct MCV MCH MCHC RDW Plt Count MPV Absolute Neuts (auto) Absolute Lymphs (auto) Absolute Monos (auto) Absolute Eos (auto) Neutrophils % Neutrophils % (Manual) Lymphocytes % Lymphocytes % (Manual) Monocytes % Monocytes % (Manual) Eosinophils % Basophils % Band Neutrophils RBC Morphology pCO2 pO2 HCO3 ABG pH ABG O2 Saturation ABG Base Excess ABG Deoxyhemoglobin Oxyhemoglobin % Carboxyhemoglobin % Methemoglobin % Sat Calc Total Hemoglobin Sodium Potassium Chloride Carbon Dioxide Anion Gap BUN Creatinine BUN/Creatinine Ratio POC Glucose Random Glucose Serum Osmolality Lactic Acid Calcium Total Bilirubin AST ALT Alkaline Phosphatase Troponin I 0.02 Serum Total Protein Albumin Globulin Albumin/Globulin Ratio Lipase Urine Color Yellow Urine Appearance Clear Urine pH 5.0 Ur Specific [place] 1.020 Urine Protein 30 Urine Glucose (UA) 500 H Urine Ketones >=160 Urine Blood Small H Urine Nitrite Negative Urine Bilirubin Negative Urine Urobilinogen 0.2 Ur Leukocyte Esterase Negative Urine RBC 1-3 Urine WBC 1-3 Ur Epithelial Cells 10-20 Amorphous Sediment 2+ Urine Bacteria 1+ Urine Opiates Screen Negative Urine Barbiturates Negative Ur Phencyclidine Scrn Negative U Amphetamin/Meth Scrn Negative U Benzodiazepines Scrn Positive H U Cocaine Metab Screen Negative U Cannabinoids Screen Negative 01/31/17 01/31/17 01/31/17 13:40 13:54 14:05 WBC RBC Hgb Hct MCV MCH MCHC RDW Plt Count MPV Absolute Neuts (auto) Absolute Lymphs (auto) Absolute Monos (auto) Absolute Eos (auto) Neutrophils % Neutrophils % (Manual) Lymphocytes % Lymphocytes % (Manual) Monocytes % Monocytes % (Manual) Eosinophils % Basophils % Band Neutrophils RBC Morphology pCO2 9 L* pO2 121 H* HCO3 2.0 ABG pH 6.960 L* ABG O2 Saturation 98.6 ABG Base Excess -30.3 ABG Deoxyhemoglobin 1.3 Oxyhemoglobin % 96.1 Carboxyhemoglobin % 1.1 Methemoglobin % Sat 1.5 Calc Total Hemoglobin 12.8 Sodium Potassium Chloride Carbon Dioxide Anion Gap BUN Creatinine BUN/Creatinine Ratio POC Glucose 302 H Random Glucose Serum Osmolality Lactic Acid 2.2 Calcium Total Bilirubin AST ALT Alkaline Phosphatase Troponin I Serum Total Protein Albumin Globulin Albumin/Globulin Ratio Lipase Urine Color Urine Appearance Urine pH Ur Specific [place] Urine Protein Urine Glucose (UA) Urine Ketones Urine Blood Urine Nitrite Urine Bilirubin Urine Urobilinogen Ur Leukocyte Esterase Urine RBC Urine WBC Ur Epithelial Cells Amorphous Sediment Urine Bacteria Urine Opiates Screen Urine Barbiturates Ur Phencyclidine Scrn U Amphetamin/Meth Scrn U Benzodiazepines Scrn U Cocaine Metab Screen U Cannabinoids Screen 01/31/17 15:05 WBC RBC Hgb Hct MCV MCH MCHC RDW Plt Count MPV Absolute Neuts (auto) Absolute Lymphs (auto) Absolute Monos (auto) Absolute Eos (auto) Neutrophils % Neutrophils % (Manual) Lymphocytes % Lymphocytes % (Manual) Monocytes % Monocytes % (Manual) Eosinophils % Basophils % Band Neutrophils RBC Morphology pCO2 pO2 HCO3 ABG pH ABG O2 Saturation ABG Base Excess ABG Deoxyhemoglobin Oxyhemoglobin % Carboxyhemoglobin % Methemoglobin % Sat Calc Total Hemoglobin Sodium 139 Potassium 6.5 H D Chloride 113 H Carbon Dioxide < 7 L* Anion Gap 25.5 H BUN 22 H Creatinine 1.06 BUN/Creatinine Ratio 20.8 H POC Glucose Random Glucose 348 H D Serum Osmolality 294.7 Lactic Acid Calcium 8.0 L Total Bilirubin AST ALT Alkaline Phosphatase Troponin I Serum Total Protein Albumin Globulin Albumin/Globulin Ratio Lipase Urine Color Urine Appearance Urine pH Ur Specific [place] Urine Protein Urine Glucose (UA) Urine Ketones Urine Blood Urine Nitrite Urine Bilirubin Urine Urobilinogen Ur Leukocyte Esterase Urine RBC Urine WBC Ur Epithelial Cells Amorphous Sediment Urine Bacteria Urine Opiates Screen Urine Barbiturates Ur Phencyclidine Scrn U Amphetamin/Meth Scrn U Benzodiazepines Scrn U Cocaine Metab Screen U Cannabinoids Screen - EKG/XRAY/CT EKG: Sinus, Tachy Comments: heart rate 127 XRAY: chest - no acute abnormalities/radiologist Departure - Departure Clinical Impression: Ketoacidosis in insulin-dependent diabetes mellitus without coma Time of Disposition: 17:54 - D/W -[facility] Disposition: Transfer to Hospital Condition: Fair Departure Forms: Patient Portal Self Enrollment Referrals: Joby Rangel MD [Primary Care Provider] - 1-2 Weeks Home Medications: Ambulatory Orders Escitalopram Oxalate [Lexapro] 40 mg PO MOWEFR 06/22/15 Insulin Lispro [Humalog] See Protocol SC ACHS PRN 06/22/15 Escitalopram [Lexapro] 20 mg PO SUTUTHSA 04/09/16 Zolpidem Tartrate [Ambien] 10 mg PO BEDTIME 04/09/16 Diazepam [Valium] 10 mg PO DAILY #10 tab 08/11/16 Divalproex Sodium ER [Depakote ER] 500 mg PO BEDTIME 08/18/16 Pregabalin [Lyrica] 150 mg PO TID 08/18/16 Metoclopramide Tab [Reglan Tab] 5 mg PO ACHS #120 tab 08/20/16 Promethazine Tab [Phenergan Tablet] 25 mg PO Q6H PRN #30 tab 08/20/16 Tizanidine HCl [Zanaflex] 4 mg PO TID 12/18/16 Acetaminophen W/ Codeine [Tylenol W/ CODEINE #3] 1 ea PO Q4HR PRN #12 01/07/17 Insulin Detemir [Levemir Pen] 35 units SUBCU DAILY 01/07/17 Promethazine Supp [Phenergan Suppository] 25 mg [place] Q6HR PRN #12 sup 01/07/17 Calcium Carb 500Mg-Vitamin D [Oscal 500 + D] 1 each PO BID #60 each 01/18/17 Dicyclomine HCl [Bentyl] 20 mg PO QID #40 each 01/18/17 Omeprazole [Prilosec Cap] 40 mg PO DAILY #30 each 01/18/17 Polyethylene Glycol 3350 [Miralax] 17 gm PO DAILY #30 pack 01/18/17 Sucralfate Tab [Carafate Tab] 1 gm PO ACHS #15 tab 01/18/17 predniSONE 40 mg PO DAILY #10 each 01/18/17 Transfer to Outside Facility - Transfer Information Accepting Facility: [facility] Reason for Transfer: specialized care not available
[2017-01-31] MEDS ORDERED: PANTOPRAZOLE INJECTION 80 MG in SODIUM CHLORIDE 0.9% 100ML 80 ML IVPB ONE (14:32)
[2017-01-31] MEDS ORDERED: SODIUM CHLORIDE 0.9% 100ML 100 ML IVPB ONE (14:52)
[2017-01-31] MEDS ORDERED: PANTOPRAZOLE SODIUM IV 40 MG VIAL ONE (14:52)
[2017-01-31] MEDS ORDERED: POTASSIUM PHOSPHATES IVPB ONE (15:23)
[2017-01-31] MEDS ORDERED: SODIUM CHLORIDE 0.9% IVPB ONE (15:23)
[2017-01-31] MEDS ORDERED: SODIUM CHLORIDE 0.9% 250ML 250 ML ONE (15:40)
[2017-01-31] MEDS ORDERED: POTASSIUM PHOSPHATES INJ 22 MEQ/5 ML VIAL IVPB ONE (15:41)
[2017-01-31] MEDS ORDERED: DEX 5% W/NACL 0.45% 1000ML 1,000 ML IVS PRN (16:05)
[2017-01-31] MEDS ORDERED: SODIUM CHL 0.9% 250ML (AVIVA) 250 ML IVPB ONE (16:11)
[2017-01-31] MEDS ORDERED: INSULIN, REG.(HUMAN) 100 U/ML VIAL ONE (16:12)
[2017-01-31] MEDS ORDERED: INSULIN, REG.(HUMAN) 250 UNITS in SODIUM CHL 0.9% 250ML (AVIVA) 247.5 ML IVPB SCH ×2 (16:30)
[2017-01-31] MEDS ORDERED: SODIUM CHLORIDE 0.9% 1000ML 1,000 ML IVS PRN (16:43)
[2017-01-31] MEDS ORDERED: PROCHLORPERAZINE INJ 10 MG/2 ML VIAL IV ONE (17:16)
[2017-01-31 18:19] VITALS: BP 116/59; O2SAT 98
== END 2017-01-31 18:19 | disposition short-term general hospital (02) ==
LOC: ER 11:17
DX: E10.10 Type 1 diabetes mellitus with ketoacidosis without coma (principal); E10.43 Type 1 diabetes mellitus with diabetic autonomic (poly)neuropathy; K31.84 Gastroparesis; R56.9 Unspecified convulsions; Z91.012 Allergy to eggs; Z91.013 Allergy to seafood; Z91.010 Allergy to peanuts; Z79.4 Long term (current) use of insulin; Z79.899 Other long term (current) drug therapy; Z87.891 Personal history of nicotine dependence
CPT/HCPCS: 36415; 36416; 36600; 71010; 80048; 80053; 80307; 81001; 82803; 82805; 82948; 83605; 83690; 84484; 85025; 93005; J0780; J2270; J2550; J2765; J7030; J7050; J7799

== ENCOUNTER → 2017-03-05 | Outpatient (CLI) | payer MEDICARE, MEDICAID ==
--- NOTE | 2017-03-05 08:10 | MRI ---
EXAM DESCRIPTION: MRI lumbar spine CLINICAL HISTORY: Lumbar disc degeneration. Bilateral leg pain/radiculopathy COMPARISON: 11/17/2014 TECHNIQUE: Standard sagittal and axial MR images of the lumbar spine. FINDINGS: L5-S1: No significant facet arthrosis or disc degeneration, canal or foraminal stenosis L4-5: Moderate facet arthrosis with mild hypertrophy. No focal disc abnormality. Minimal annular bulge. Bilateral mild subarticular recess narrowing and foraminal stenosis L3-4: Mild facet arthrosis. No disk abnormality, canal or foraminal narrowing L2-3: Nondisplaced bilateral pars interarticularis defects, similar to previous study. Slightly greater hypertrophic changes at the defect on the right. No significant facet arthrosis. No disk abnormality, canal or foraminal narrowing L1-2: No canal or foraminal narrowing T12-L1: No canal or foraminal narrowing Conus medullaris and cauda equina are normal. No marrow edema or focal marrow lesion. No paravertebral muscle abnormality No mass or adenopathy in the retroperitoneum IMPRESSION: Bilateral nondisplaced L2 pars interarticularis defects. This finding was seen on the previous MRI, not significant changed No advanced disc and facet degeneration, canal stenosis or nerve impingement Electronically signed by: Can Baum MD 03/05/2017 8:08 AM CDT
--- NOTE | 2017-03-05 17:32 | RAD ---
EXAM DESCRIPTION: Knee,Left 2 or More Views (accession [id number]), Knee,Right 2 or More Views (accession [id number]) CLINICAL HISTORY: 41 years, Female, PAIN IN KNEE COMPARISON: None TECHNIQUE: Three views of each knee. FINDINGS: On the right, moderate degenerative changes with articular lipping is present with a moderate joint effusion and mild narrowing of the joint space with subchondral sclerosis particularly involving the lateral tibial plateau. No acute fracture is seen and involvement of the patellofemoral articulation and to a lesser extent medial joint compartment is noted. On the left, very minimal degenerative arthropathy is present without definite joint effusion in the appearance of the knee is much better than the opposite right knee. Mild subchondral sclerosis is present but a distinct osteochondral defect or fracture are not apparent. IMPRESSION: 1. Moderate right and minimal left degenerative arthropathy with modest right and joint effusion with no acute injury of either knee Electronically signed by: Can Hunter MD 03/05/2017 5:30 PM CDT
--- NOTE | 2017-03-05 17:32 | RAD ---
EXAM DESCRIPTION: Knee,Left 2 or More Views (accession [id number]), Knee,Right 2 or More Views (accession [id number]) CLINICAL HISTORY: 41 years, Female, PAIN IN KNEE COMPARISON: None TECHNIQUE: Three views of each knee. FINDINGS: On the right, moderate degenerative changes with articular lipping is present with a moderate joint effusion and mild narrowing of the joint space with subchondral sclerosis particularly involving the lateral tibial plateau. No acute fracture is seen and involvement of the patellofemoral articulation and to a lesser extent medial joint compartment is noted. On the left, very minimal degenerative arthropathy is present without definite joint effusion in the appearance of the knee is much better than the opposite right knee. Mild subchondral sclerosis is present but a distinct osteochondral defect or fracture are not apparent. IMPRESSION: 1. Moderate right and minimal left degenerative arthropathy with modest right and joint effusion with no acute injury of either knee Electronically signed by: Can Hunter MD 03/05/2017 5:30 PM CDT
== END | disposition home or self-care (01) ==
LOC: MRI 07:09
PROVIDERS: ATTEND Anesthesiology Pain Medicine
DX: M51.36 Other intervertebral disc degeneration, lumbar region (principal); M25.562 Pain in left knee; M25.561 Pain in right knee

== ENCOUNTER → 2017-03-12 | Outpatient (CLI) | payer MEDICARE, MEDICAID | END | disposition home or self-care (01) | LOC: YCFC.O 15:55 | PROVIDERS: ATTEND Anesthesiology Pain Medicine | DX: Z79.891 Long term (current) use of opiate analgesic (principal) ==

== ENCOUNTER → 2017-04-30 | Outpatient (CLI) | payer MEDICARE, OTHER | END | disposition home or self-care (01) | LOC: YCFC.O 15:31 | PROVIDERS: ATTEND Anesthesiology Pain Medicine | DX: Z79.891 Long term (current) use of opiate analgesic (principal) ==

== ENCOUNTER 2017-05-15 14:12 | Emergency (ER) | payer MEDICARE, MEDICAID ==
[2017-05-15] MEDS ORDERED: SODIUM CHLORIDE 0.9% 1000ML 1,000 ML IVS ONE (14:50)
[2017-05-15] MEDS ORDERED: ONDANSETRON INJ 4 MG/2 ML VIAL IV ONE (14:50)
--- NOTE | 2017-05-15 14:53 | ED.PDOC ---
History of Present Illness - General Chief Complaint: General Stated Complaint: Head and chest pain x 2-3 days; worse today. Time Seen by Provider: 05/15/17 14:36 Source: patient, RN notes reviewed, Vital Signs reviewed Exam Limitations: no limitations - History of Present Illness Initial Comments: Patient presents to ER with c/o painful sores on the back of her head with swollen, painful lymph nodes running down her R posterior neck. She also reports sharp, left sided chest pain for 2 days. +nausea. No SOB. Reports her pain medication is not helping, Tyl #3, so she took Hydrocodone from a friend and that did not help at all. Timing/Duration: constant - 2 days Severity: severe - Patient crying in pain Improving Factors: nothing Worsening Factors: other - touching head or lymph nodes Associated Symptoms: chest pain, nausea/vomiting Allergies/Adverse Reactions: Allergies Eggs or Egg-derived Products Allergy (Verified 01/29/17 17:09) Fish Allergy Allergy (Verified 01/29/17 17:09) peanut Allergy (Severe, Uncoded 01/29/17 17:09) eggs Allergy (Uncoded 01/29/17 17:09) Home Medications: Ambulatory Orders Zolpidem Tartrate [Ambien] 10 mg PO BEDTIME 04/09/16 Pregabalin [Lyrica] 150 mg PO TID 08/18/16 Promethazine Tab [Phenergan Tablet] 25 mg PO Q6H PRN #30 tab 08/20/16 Tizanidine HCl [Zanaflex] 4 mg PO TID 12/18/16 Acetaminophen W/ Codeine [Tylenol W/ CODEINE #3] 1 ea PO Q4HR PRN #12 01/07/17 Insulin Detemir [Levemir Pen] 30 units SUBCU DAILY 01/07/17 Calcium Carb 500Mg-Vitamin D [Oscal 500 + D] 1 each PO BID #60 each 01/18/17 Alprazolam [Xanax] 1 mg PO DAILY 05/15/17 Insulin Aspart [Novolog] 100 unit SC ACBK 05/15/17 Sulfa/Trimeth 800/160 (Ds) Tab [Bactrim DS Tab] 1 ea PO BID #14 tab 05/15/17 Review of Systems - Review of Systems Constitutional: States: no symptoms reported EENTM: States: no symptoms reported Respiratory: States: wheezing. Denies: short of breath Cardiology: States: see HPI, chest pain. Denies: palpitations, syncope Gastrointestinal/Abdominal: States: nausea. Denies: abdominal pain Musculoskeletal: States: no symptoms reported Skin: States: see HPI Neurological: States: no symptoms reported All other Systems: No Change from Baseline Past Medical History (General) - Patient Medical History Hx Seizures: Yes Hx Stroke: No Hx Dementia: No Hx Asthma: No Hx of COPD: No Hx Cardiac Disorders: No Hx Congestive Heart Failure: No Hx Pacemaker: No Hx Hypertension: No Hx Thyroid Disease: No Hx Diabetes: Yes Hx Gastroesophageal Reflux: No Hx Renal Disease: No Hx Cancer: No Hx of HIV: No Hx Hepatitis C: No Hx MRSA: No MRSA Source:: Blood - Vaccination History Hx Tetanus, Diphtheria Vaccination: No Hx Influenza Vaccination: No Hx Pneumococcal Vaccination: No - Social History Hx Tobacco Use: Yes Hx Chewing Tobacco Use: No Hx Alcohol Use: No Hx Substance Use: No Hx Substance Use Treatment: No Hx Depression: Yes Hx Physical Abuse: No Hx Emotional Abuse: No Hx Suspected Abuse: No - Female History Hx Last Menstrual Period: 11/05/11 Patient : No Family Medical History - Family History Mother Family History: No Known Name: April Age (years): 67 Living Status: Still Living Hx Family Asthma: No Hx Family Congestive Heart Failure: No Hx Family Hypertension: Yes - dad Hx Family Stroke: No Hx Cardiac Disease: No Hx Family Diabetes: No Hx Family Cancer: No Hx Family;Other: Thyroid -mom;HTN-dad Father Family History: No Known Name: Marlon Age (years): 65 Living Status: Still Living Hx Family Asthma: No - Sister Hx Family Congestive Heart Failure: No Hx Family Hypertension: Yes Hx Family Stroke: No Hx Cardiac Disease: No - Grandfather. Hx Family Diabetes: No - Pt Age of Onset (years of age): 33 Hx Family Cancer: Yes - Grandmother Lympoma Physical Exam - Physical Exam General Appearance: Alert, Obvious distress - Crying due to pain, Well Developed , Well Groomed, Well Hydrated, Well Nourished Neck: supple, lymphadenopathy (R) - posterior cervical chain Respiratory: chest non-tender, lungs clear, normal breath sounds, no respiratory distress, no accessory muscle use Cardiovascular/Chest: regular rate, rhythm, no edema, no gallop, no JVD, no murmur Extremity: normal range of motion, non-tender, normal inspection Neurologic: alert, normal mood/affect, oriented x 3 Skin Exam: other - scalp: tender swollen, warm lump on R posterior Progress - Progress Progress: 05/15/17 15:[address] Aldana, pain management, who recommended no more that 2-3 days of pain medications. She already filled Tyl #3 #150 pills on so will not give further pain medications. 05/15/17 15:51 Patient sleeping after Toradol 30mg IV and Zofran 4mg IV. Rocephin 1gm IV infusing. - Results/Orders Results/Orders: Laboratory Tests 05/15/17 05/15/17 14:30 14:30 WBC 8.1 RBC 5.09 Hgb 13.6 Hct 41.1 MCV 80.7 L MCH 26.7 L MCHC 33.1 RDW 14.1 Plt Count 292 MPV 8.9 Absolute Neuts (auto) 5.10 Absolute Lymphs (auto) 2.20 Absolute Monos (auto) 0.50 Absolute Eos (auto) 0.20 Absolute Basos (auto) 0.00 Neutrophils % 63.2 Lymphocytes % 27.8 Monocytes % 6.2 Eosinophils % 2.2 Basophils % 0.6 Sodium 135 Potassium 3.9 Chloride 104 Carbon Dioxide 23 Anion Gap 11.9 L BUN 7 Creatinine 0.57 L BUN/Creatinine Ratio 12.3 Random Glucose 381 H Serum Osmolality 283.8 Calcium 8.8 Total Bilirubin < 0.2 L AST 26 ALT 19 Alkaline Phosphatase 110 Creatine Kinase 45 CK-MB (CK-2) 0.6 Troponin I < 0.02 Serum Total Protein 6.9 Albumin 3.7 Globulin 3.2 Albumin/Globulin Ratio 1.2 - EKG/XRAY/CT EKG: Sinus, Tachy, nonspecific ST T wave Chg Departure - Departure Clinical Impression: Abscess of scalp Time of Disposition: 16:11 Disposition: Discharge to Home or Self Care Condition: Fair Departure Forms: ED Discharge - Pt. Copy, Patient Portal Self Enrollment Instructions: DI for Skin Abscess Diet: resume usual diet Activity: increase activity as tolerated Referrals: Joby Rangel MD [Primary Care Provider] - 1-2 Weeks Prescriptions: Sulfa/Trimeth 800/160 (Ds) Tab [Bactrim DS Tab] 1 ea PO BID #14 tab Home Medications: Ambulatory Orders Zolpidem Tartrate [Ambien] 10 mg PO BEDTIME 04/09/16 Pregabalin [Lyrica] 150 mg PO TID 08/18/16 Promethazine Tab [Phenergan Tablet] 25 mg PO Q6H PRN #30 tab 08/20/16 Tizanidine HCl [Zanaflex] 4 mg PO TID 12/18/16 Acetaminophen W/ Codeine [Tylenol W/ CODEINE #3] 1 ea PO Q4HR PRN #12 01/07/17 Insulin Detemir [Levemir Pen] 30 units SUBCU DAILY 01/07/17 Calcium Carb 500Mg-Vitamin D [Oscal 500 + D] 1 each PO BID #60 each 01/18/17 Alprazolam [Xanax] 1 mg PO DAILY 05/15/17 Insulin Aspart [Novolog] 100 unit SC ACBK 05/15/17 Sulfa/Trimeth 800/160 (Ds) Tab [Bactrim DS Tab] 1 ea PO BID #14 tab 05/15/17 Additional Instructions: Hot compresses 3-5X/day Take pain medication from Dr. Aldana as directed.
[2017-05-15 14:57] VITALS: TEMP 98.8
[2017-05-15] MEDS ORDERED: KETOROLAC TROMETHAMINE INJ 30 MG/ML VIAL IV ONE (15:01)
[2017-05-15] MEDS ORDERED: cefTRIAXone SODIUM 1 GM in SODIUM CHL 0.9% 50ML MIN-BAG+ 50 ML IVPB ONE (15:01)
[2017-05-15] MEDS ORDERED: cefTRIAXone SODIUM 1 GM VIAL ONE (15:05)
[2017-05-15] MEDS ORDERED: SODIUM CHL 0.9% 50ML MIN-BAG+ 50 ML IVPB ONE (15:05)
--- NOTE | 2017-05-15 15:09 | RAD ---
Study: Single Frontal View of the Chest. Indication:chest pain Comparison: January 31, 2017. IMPRESSION: Heart size normal. Lungs clear. No acute osseous abnormality. Electronically signed by: German Garza MD 05/15/2017 3:08 PM CDT
[2017-05-15 16:24] VITALS: BP 103/55; O2SAT 96
== END 2017-05-15 16:24 | disposition home or self-care (01) ==
LOC: ER 14:12
DX: L02.811 Cutaneous abscess of head [any part, except face] (principal); E11.9 Type 2 diabetes mellitus without complications; R07.9 Chest pain, unspecified; Z79.4 Long term (current) use of insulin; Z79.899 Other long term (current) drug therapy; Z91.012 Allergy to eggs; Z91.013 Allergy to seafood; Z91.010 Allergy to peanuts
CPT/HCPCS: 71010; 80053; 82550; 82553; 84484; 85025; 93005; J0696; J1885; J2405; J7030; J7050

== ENCOUNTER 2017-05-22 11:05 | Inpatient (IN) | payer MEDICARE, OTHER ==
[2017-05-22] MEDS ORDERED: SODIUM CHLORIDE 0.9% 1000ML 1,000 ML IVS ONE (13:16)
[2017-05-22] MEDS ORDERED: ONDANSETRON INJ 4 MG/2 ML VIAL IV ONE (13:16)
--- NOTE | 2017-05-22 14:21 | ED.PDOC ---
History of Present Illness - General Chief Complaint: General Stated Complaint: Infection on posterior scalp unresolved Time Seen by Provider: 05/22/17 11:49 Source: patient, RN notes reviewed, Vital Signs reviewed Exam Limitations: no limitations - History of Present Illness Initial Comments: Patient comes in with continued scalp infection and painful lymph nodes & possible DKA. She finished 1 week on Bactrim with improvement of scalp abscess but feels her lymph nodes are worsening. Timing/Duration: 1 week Severity: moderate Improving Factors: medication - Bactrim Worsening Factors: nothing Associated Symptoms: malaise, nausea/vomiting Allergies/Adverse Reactions: Allergies Eggs or Egg-derived Products Allergy (Verified 01/29/17 17:09) Fish Allergy Allergy (Verified 01/29/17 17:09) peanut Allergy (Severe, Uncoded 01/29/17 17:09) eggs Allergy (Uncoded 01/29/17 17:09) Home Medications: Ambulatory Orders Zolpidem Tartrate [Ambien] 10 mg PO BEDTIME 04/09/16 Pregabalin [Lyrica] 150 mg PO TID 08/18/16 Promethazine Tab [Phenergan Tablet] 25 mg PO Q6H PRN #30 tab 08/20/16 Tizanidine HCl [Zanaflex] 4 mg PO TID 12/18/16 Acetaminophen W/ Codeine [Tylenol W/ CODEINE #3] 1 ea PO Q4HR PRN #12 01/07/17 Insulin Detemir [Levemir Pen] 30 units SUBCU DAILY 01/07/17 Calcium Carb 500Mg-Vitamin D [Oscal 500 + D] 1 each PO BID #60 each 01/18/17 Alprazolam [Xanax] 1 mg PO DAILY 05/15/17 Insulin Aspart [Novolog] 100 unit SC ACBK 05/15/17 Sulfa/Trimeth 800/160 (Ds) Tab [Bactrim DS Tab] 1 ea PO BID #14 tab 05/15/17 Review of Systems - Review of Systems Constitutional: States: malaise EENTM: States: no symptoms reported Respiratory: States: no symptoms reported Cardiology: States: no symptoms reported Gastrointestinal/Abdominal: States: nausea, vomiting. Denies: abdominal pain Genitourinary: States: no symptoms reported Musculoskeletal: States: no symptoms reported Skin: States: see HPI Neurological: States: no symptoms reported All other Systems: No Change from Baseline Past Medical History (General) - Patient Medical History Hx Seizures: Yes - 20 years ago Hx Stroke: No Hx Dementia: No Hx Asthma: Yes Hx of COPD: No Hx Cardiac Disorders: No Hx Congestive Heart Failure: No Hx Pacemaker: No Hx Hypertension: No Hx Thyroid Disease: No Hx Diabetes: Yes Hx Gastroesophageal Reflux: Yes Hx Renal Disease: No Hx Cancer: No Hx of HIV: No Hx Hepatitis C: No Hx MRSA: No MRSA Source:: Blood Surgical History: appendectomy, cholecystectomy, Hysterectomy - Vaccination History Hx Tetanus, Diphtheria Vaccination: No Hx Influenza Vaccination: No - Cannot take the flu shot Hx Pneumococcal Vaccination: No Immunizations Up to Date: No - Social History Hx Tobacco Use: Yes Hx Chewing Tobacco Use: No Hx Alcohol Use: No Hx Substance Use: Yes Hx Substance Use Treatment: No Hx Depression: Yes Feels Threatened In Home Enviroment: No Feels Threatened In a Relationship: No Hx Physical Abuse: No Hx Emotional Abuse: No Hx Suspected Abuse: No - Female History Patient is a Female of Child Bearing Age (10 -59 yrs old): No Hx Last Menstrual Period: 11/05/11 Patient : No Family Medical History - Family History Mother Family History: No Known Name: April Age (years): 67 Living Status: Still Living Hx Family Asthma: No Hx Family Congestive Heart Failure: No Hx Family Hypertension: Yes - dad Hx Family Stroke: No Hx Cardiac Disease: No Hx Family Diabetes: No Hx Family Cancer: No Hx Family;Other: Thyroid -mom;HTN-dad Father Family History: No Known Name: Marlon Age (years): 65 Living Status: Still Living Hx Family Asthma: No - Sister Hx Family Congestive Heart Failure: No Hx Family Hypertension: Yes Hx Family Stroke: No Hx Cardiac Disease: No - Grandfather. Hx Family Diabetes: No - Pt Age of Onset (years of age): 33 Hx Family Cancer: Yes - Grandmother Lympoma Physical Exam - Physical Exam General Appearance: Alert, Comfortable, No apparent distress, Well Developed, Well Groomed, Well Nourished Ears, Nose, Throat: other - dry mucous membranes Neck: supple, lymphadenopathy (R) - posterior cervical chain - tender Respiratory: chest non-tender, lungs clear, normal breath sounds, no respiratory distress, no accessory muscle use Cardiovascular/Chest: regular rate, rhythm, no gallop, no murmur Extremity: non-tender, normal inspection Neurologic: alert, normal mood/affect, oriented x 3 Skin Exam: normal color, warm/dry, other - Tender lumb R posterior scalp - improved from last week. Progress - Progress Progress: 05/22/17 14:26 Started on insulin drip Discussed w/ Dr. Cody - will admit - Results/Orders Results/Orders: Laboratory Tests 05/22/17 05/22/17 05/22/17 11:45 13:30 13:30 WBC 4.3 L RBC 5.25 Hgb 13.6 Hct 42.2 MCV 80.3 L MCH 26.0 L MCHC 32.3 L RDW 14.1 Plt Count 212 MPV 8.8 Absolute Neuts (auto) 3.10 Absolute Lymphs (auto) 0.70 L Absolute Monos (auto) 0.40 Absolute Eos (auto) 0.10 Absolute Basos (auto) 0.00 Neutrophils % 72.0 Lymphocytes % 17.3 L Monocytes % 8.3 Eosinophils % 1.8 Basophils % 0.6 Sodium 127 L Potassium 4.8 Chloride 99 L Carbon Dioxide 13 L* Anion Gap 19.8 H BUN 19 H Creatinine 0.85 BUN/Creatinine Ratio 22.4 H POC Glucose 363 H Random Glucose 405 H* Serum Osmolality 274.8 L Calcium 9.3 Serum Ketones Small - EKG/XRAY/CT CT Ordered: No CT Interpretation Call Back: No Departure - Departure Clinical Impression: Abscess of scalp DKA (diabetic ketoacidoses) Qualifiers: Diabetes mellitus type: type 1 Diabetes mellitus complication detail: without coma Qualified Code(s): E10.10 - Type 1 diabetes mellitus with ketoacidosis without coma Time of Disposition: 14:27 Disposition: Admit Patient Condition: Fair Departure Forms: ED Discharge - Pt. Copy, Patient Portal Self Enrollment Referrals: Joby Rangel MD [Primary Care Provider] - 1-2 Weeks Home Medications: Ambulatory Orders Zolpidem Tartrate [Ambien] 10 mg PO BEDTIME 04/09/16 Pregabalin [Lyrica] 150 mg PO TID 08/18/16 Promethazine Tab [Phenergan Tablet] 25 mg PO Q6H PRN #30 tab 08/20/16 Tizanidine HCl [Zanaflex] 4 mg PO TID 12/18/16 Acetaminophen W/ Codeine [Tylenol W/ CODEINE #3] 1 ea PO Q4HR PRN #12 01/07/17 Insulin Detemir [Levemir Pen] 30 units SUBCU DAILY 01/07/17 Calcium Carb 500Mg-Vitamin D [Oscal 500 + D] 1 each PO BID #60 each 01/18/17 Alprazolam [Xanax] 1 mg PO DAILY 05/15/17 Insulin Aspart [Novolog] 100 unit SC ACBK 05/15/17 Sulfa/Trimeth 800/160 (Ds) Tab [Bactrim DS Tab] 1 ea PO BID #14 tab 05/15/17 Decision To Admit - Decistion To Admit Decision to Admit Reason: Admit from ER Decision to Admit Date: 05/22/17 Decision to Admit Time: 14:19
[2017-05-22] MEDS ORDERED: SODIUM CHLORIDE 0.9% 1000ML 1,000 ML ONE (15:19)
[2017-05-22] MEDS ORDERED: ONDANSETRON INJ 4 MG/2 ML VIAL ONE (15:20)
[2017-05-22] MEDS ORDERED: INSULIN, REG.(HUMAN) 100 U/ML VIAL ONE ×2 (15:25→15:26)
[2017-05-22] MEDS ORDERED: SODIUM CHL 0.9% 250ML (AVIVA) 250 ML IVPB ONE ×2 (15:25→15:26)
[2017-05-22] MEDS: INSULIN, REG.(HUMAN) 250 UNITS in SODIUM CHL 0.9% 250ML (AVIVA) 247.5 ML IVPB SCH ×2 (15:29)
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
[2017-05-22] MEDS ORDERED: GLUCAGON INJ 1 MG VIAL SUBCU PRN (16:24)
[2017-05-22] MEDS ORDERED: SODIUM CHLORIDE 0.9% (FLUSH) 10 ML SYG IV PRN (16:24)
[2017-05-22] MEDS ORDERED: DEXTROSE 50% 25 GM/50 ML SYG IV PRN (16:24)
[2017-05-22] MEDS ORDERED: SODIUM CHLORIDE 0.9% 1000ML 2,000 ML ONE (16:26)
[2017-05-22] MEDS ORDERED: IV SET AND CAP CHANGE INJ INJ SCH (16:30)
[2017-05-22] MEDS ORDERED: ONDANSETRON INJ 4 MG/2 ML VIAL IV PRN (16:32)
[2017-05-22] MEDS: SODIUM CHLORIDE 0.9% 1000ML 1,000 ML IVS PRN ×2 (17:15→19:42)
[2017-05-22] MEDS ORDERED: KCL 20MEQ/WATER FOR INJ 100ML 20 MEQ in PREMIX BAG 1 BAG IVPB ONE (17:56)
[2017-05-22] MEDS ORDERED: CALCIUM GLUCONATE INJ 1 GM in SODIUM CHLORIDE 0.9% 50ML 50 ML IVPB ONE (17:58)
[2017-05-22] MEDS ORDERED: KCL 20MEQ/WATER FOR INJ 100ML 100 ML IVPB ONE (18:24)
[2017-05-22] MEDS ORDERED: ACETAMINOPHEN W/COD #3 TAB 1 EA TAB ONE ×2 (18:25→22:26)
[2017-05-22] MEDS ORDERED: POTASSIUM CHLORIDE 10 MEQ TAB PO ONE (18:25)
[2017-05-22] MEDS: PROMETHAZINE HCL 25 MG TAB PO PRN (18:27)
[2017-05-22] MEDS: ACETAMINOPHEN W/COD #3 TAB (ER Disp) PO PRN ×2 (18:28→22:31)
[2017-05-22] MEDS ORDERED: ALPRAZolam 0.5 MG TAB ONE (20:14)
[2017-05-22] MEDS ORDERED: tiZANidine 4 MG TAB ONE (20:14)
[2017-05-22] MEDS ORDERED: ZOLPIDEM TARTRATE 10 MG TAB ONE (20:15)
[2017-05-22] MEDS ORDERED: PREGABALIN 75 MG CAP ONE (20:15)
[2017-05-22] MEDS ORDERED: NON-FORMULARY MEDICATION 1 EA MIS (Alprazolam [Xanax] 1 MG) PO SCH (21:00)
[2017-05-22] MEDS ORDERED: NON-FORMULARY MEDICATION 1 EA MIS (Tizanidine Hcl [Zanaflex] 4 MG) PO SCH (21:00)
[2017-05-22] MEDS ORDERED: NON-FORMULARY MEDICATION 1 EA MIS (Pregabalin [Lyrica] 150 MG) PO SCH (21:00)
[2017-05-22] MEDS: ZOLPIDEM TARTRATE 5 MG TAB PO PRN (21:01)
[2017-05-22] MEDS: INSULIN LISPRO 100 UNITS/ML PEN SUBCU SCH (22:21)
[2017-05-22] MEDS: KCL 20MEQ/0.45% NS 1,000 ML IVS PRN (22:31)
[2017-05-22] MEDS ORDERED: CALCIUM GLUCONATE INJ 1 GM/10 ML VIAL ONE (23:35)
[2017-05-22] MEDS ORDERED: SODIUM CHLORIDE 0.9% 50ML 50 ML ONE (23:39)
[2017-05-23] MEDS: LEVALBUTEROL NEBS 1.25 MG/3 ML VIAL NEB SCH ×3 (00:20→17:57)
[2017-05-23] MEDS ORDERED: ACETAMINOPHEN W/COD #3 TAB 1 EA TAB ONE ×2 (02:30→06:40)
[2017-05-23] MEDS: ACETAMINOPHEN W/COD #3 TAB (ER Disp) PO PRN ×2 (02:35→06:42)
[2017-05-23] MEDS ORDERED: INSULIN, REG.(HUMAN) 100 U/ML VIAL ONE (02:56)
[2017-05-23] MEDS ORDERED: SODIUM CHL 0.9% 250ML (AVIVA) 250 ML IVPB ONE (02:56)
[2017-05-23] MEDS: INSULIN, REG.(HUMAN) 250 UNITS in SODIUM CHL 0.9% 250ML (AVIVA) 247.5 ML IVPB SCH ×2 (03:08)
[2017-05-23] MEDS: KCL 20MEQ/0.45% NS 1,000 ML IVS PRN ×2 (04:59→13:31)
[2017-05-23] MEDS: OMEPRAZOLE CAP 20 MG CAP PO SCH (06:42)
[2017-05-23] MEDS: SUCRALFATE 1 GM/10 ML 1 GM UD PO SCH ×4 (06:42→21:29)
[2017-05-23] MEDS: INSULIN LISPRO 100 UNITS/ML PEN SUBCU SCH ×5 (07:12→21:37)
[2017-05-23] MEDS: PREGABALIN 75 MG CAP PO SCH ×3 (08:50→21:34)
[2017-05-23] MEDS: tiZANidine 4 MG TAB PO SCH ×3 (08:50→21:34)
[2017-05-23] MEDS: ALPRAZolam 0.5 MG TAB PO SCH ×2 (08:50→21:34)
[2017-05-23] MEDS ORDERED: NON-FORMULARY MEDICATION 1 EA MIS (Alprazolam [Xanax] 1 MG) PO SCH (09:00)
[2017-05-23] MEDS: ACETAMINOPHEN W/COD #3 TAB 1 EA TAB PO PRN ×3 (10:34→21:44)
[2017-05-23] MEDS: INSULIN DETEMIR 100 UNITS/ML PEN SUBCU SCH (11:10)
[2017-05-23] MEDS: DOXYCYCLINE HYCLATE CAP 100 MG CAP PO SCH ×2 (11:11→21:33)
[2017-05-23] MEDS: PROMETHAZINE HCL 25 MG TAB PO PRN (11:15)
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
[2017-05-23] MEDS ORDERED: POTASSIUM CHLORIDE 10 MEQ TAB PO ONE (17:00)
[2017-05-23] MEDS ORDERED: ZOLPIDEM TARTRATE 10 MG TAB ONE (20:23)
[2017-05-23] MEDS: ZOLPIDEM TARTRATE 5 MG TAB PO PRN (21:43)
[2017-05-24] MEDS: ACETAMINOPHEN W/COD #3 TAB 1 EA TAB PO PRN ×2 (02:48→10:17)
[2017-05-24] MEDS: KCL 20MEQ/0.45% NS 1,000 ML IVS PRN (06:47)
[2017-05-24] MEDS: OMEPRAZOLE CAP 20 MG CAP PO SCH (06:47)
[2017-05-24] MEDS: INSULIN LISPRO 100 UNITS/ML PEN SUBCU SCH ×2 (07:38→11:25)
[2017-05-24] MEDS: SUCRALFATE 1 GM/10 ML 1 GM UD PO SCH ×2 (07:45→10:17)
[2017-05-24] MEDS: INSULIN DETEMIR 100 UNITS/ML PEN SUBCU SCH (07:46)
[2017-05-24] MEDS ORDERED: INSULIN DETEMIR 100 UNITS/ML PEN SUBCU ONE (08:36)
[2017-05-24] MEDS: tiZANidine 4 MG TAB PO SCH (09:16)
[2017-05-24] MEDS: ALPRAZolam 0.5 MG TAB PO SCH (09:16)
[2017-05-24] MEDS: DOXYCYCLINE HYCLATE CAP 100 MG CAP PO SCH (09:16)
[2017-05-24] MEDS: PREGABALIN 75 MG CAP PO SCH (09:17)
[2017-05-24] MEDS: LEVALBUTEROL NEBS 1.25 MG/3 ML VIAL NEB SCH (10:07)
[2017-05-24 11:16] VITALS: BP 100/71; TEMP 98.1; O2SAT 98
--- NOTE | 2017-05-24 13:35 | DS ---
SUPERVISING PHYSICIAN: Aristides Alvarado MD DISCHARGE DIAGNOSIS: 1. Acute diabetic ketoacidosis with metabolic acidosis noted secondary to diabetes mellitus, type 1, insulin dependent, poorly controlled, and with a significant history of multiple admission due to diabetic ketoacidosis. 2. History of scalp abscess, most likely an infected cyst. She has previously been on Bactrim and has been on doxycycline while in the hospital. It had improved. 3. Chronic fibromyalgia. 4. Chronic obstructive pulmonary disease in a patient with a history of chronic smoking. 5. Chronic eczema. 6. Chronic peripheral neuropathy secondary to diabetes. 7. Chronic upper and lower back pain after multiple spinal procedures. 8. History of migraines. HISTORY OF PRESENT ILLNESS: This is a 41-year-old female patient who came to the Emergency Room on date of admission due to some persistent swelling and tender nodes on the right side of her neck. Approximately one week before admission she developed the swollen and tender nodes and was treated for an infected cyst on her right occipital scalp. She had early reactive lymph node enlargement on the right side of her neck. The lymph nodes were actually painful and became more prominent. She was given some Bactrim DS in the Emergency Room a week prior to this admission. The patient stated the scalp abscess had improved, but continued to have the enlarged lymph nodes. Her blood sugars had been over 500 the previous night. She had taken 10 units of NovoLog. Sugars the morning prior to coming to the Emergency Room were 360 and she took her usual dose of Levemir insulin. When she came to the Emergency Room , she was found to have elevated blood sugars with evidence of diabetic ketoacidosis and associated nausea. [place] [facility] [place] 2 [place] where she was in the care of their Endocrine Service. She has had multiple visits to the Emergency Room as well as multiple hospital admissions for recurring diabetic ketoacidosis as well as chest pain, chronic pain syndrome and gastroparesis. The patient was admitted to the hospital. HOSPITAL COURSE: She was started on an insulin drip protocol and given significant hydration. She was also started on doxycycline for the enlarged lymph nodes. She was also given potassium supplementation. Her initial serum ketones were small and overnight, her condition improved greatly. She still had rather high blood sugars and an 8 unit dose of long-acting insulin was added to her Levemir 30 units. Her electrolytes have normalize. Her dehydration has resolved as well as her ketoacidosis. She can be discharged home with close followup with her endocrine doctors. DISCHARGE PLAN: The patient will be discharged home in good condition. She is to resume her diabetic diet as well as her previous medications. I have added 8 units of Levemir at night in addition to her 30 units of Levemir in the AM. She is to have 7 additional days of doxycycline as well as to continue her Bactrim at home. She has an appointment with Dr. Rangel, her primary care physician, on 06/08/17 and she is to followup with him if lymph nodes continue to be enlarged so sonogram may be performed at that time. She is to return to the hospital or followup with Dr. Rangel or her electro tech for any further problems. DISCHARGE MEDICATIONS: 1. Ambien. 2. Lyrica. 3. Phenergan. 4. Zanaflex. 5. Levemir 30 in the morning and 8 in the evening. 6. Acetaminophen with codeine. 7. Calcium carbonate plus vitamin D. 8. Xanax. 9. Sliding scale NovoLog. 10. Bactrim DS. 11. Doxycycline. Dr. Alvarado is the collaborating physician and available for consultation. #[id number] [facility]
== END 2017-05-24 13:40 | disposition home or self-care (01) | DRG 638 ==
LOC: ER 11:05 → MS 15:37
PROVIDERS: ADMIT Emergency Medicine; ATTEND Nurse Practitioner Acute Care
DX: E10.10 Type 1 diabetes mellitus with ketoacidosis without coma (principal); L02.811 Cutaneous abscess of head [any part, except face]; M79.7 Fibromyalgia; J44.9 Chronic obstructive pulmonary disease, unspecified; F17.210 Nicotine dependence, cigarettes, uncomplicated; E11.42 Type 2 diabetes mellitus with diabetic polyneuropathy; G89.29 Other chronic pain; M54.5 Low back pain; L30.9 Dermatitis, unspecified; Z96.0 Presence of urogenital implants; M94.0 Chondrocostal junction syndrome [Tietze]; J45.909 Unspecified asthma, uncomplicated; K21.9 Gastro-esophageal reflux disease without esophagitis; Z79.84 Long term (current) use of oral hypoglycemic drugs; Z91.010 Allergy to peanuts; Z91.012 Allergy to eggs; Z91.013 Allergy to seafood; Z79.899 Other long term (current) drug therapy

== ENCOUNTER → 2017-06-04 | Outpatient (CLI) | payer MEDICARE, OTHER | LOC: YCFC.O 13:27 | PROVIDERS: ATTEND Anesthesiology Pain Medicine | DX: Z79.891 Long term (current) use of opiate analgesic (principal) ==

== ENCOUNTER 2017-06-06 09:32 | Emergency (ER) | payer MEDICARE, OTHER ==
[2017-06-06] MEDS ORDERED: ONDANSETRON INJ 4 MG/2 ML VIAL IV ONE (09:38)
[2017-06-06] MEDS ORDERED: LACTATED RINGERS 1,000 ML IVS ONE (09:38)
--- NOTE | 2017-06-06 10:01 | ED.PDOC ---
History of Present Illness - General Chief Complaint: Chest Pain/MS Stated Complaint: Vomiting, chest discomfort Time Seen by Provider: 06/06/17 09:34 Source: patient Exam Limitations: no limitations - History of Present Illness Initial Comments: Shwetha Perkins 41 y/o female stated she had onset of multiple episodes of nausea/ vomiting last night then followed by diarrhea she checked her blood sugar since she is also diabetic it was [id number] last night and 302 this am.She had also chest discomfort acroos her chest this am. Timing/Duration: 24 hours Improving Factors: nothing Worsening Factors: nothing Associated Symptoms: other - see hpi Allergies/Adverse Reactions: Allergies Eggs or Egg-derived Products Allergy (Verified 06/06/17 09:37) Fish Allergy Allergy (Verified 06/06/17 09:37) peanut Allergy (Severe, Uncoded 01/29/17 17:09) eggs Allergy (Uncoded 01/29/17 17:09) Home Medications: Ambulatory Orders Zolpidem Tartrate [Ambien] 10 mg PO BEDTIME 04/09/16 Pregabalin [Lyrica] 150 mg PO TID 08/18/16 Promethazine Tab [Phenergan Tablet] 25 mg PO Q6H PRN #30 tab 08/20/16 Tizanidine HCl [Zanaflex] 4 mg PO TID 12/18/16 Acetaminophen W/ Codeine [Tylenol W/ CODEINE #3] 1 ea PO Q4HR PRN #12 01/07/17 Insulin Detemir [Levemir Pen] 30 units SUBCU DAILY 01/07/17 Calcium Carb 500Mg-Vitamin D [Oscal 500 + D] 1 each PO BID #60 each 01/18/17 Alprazolam [Xanax] 1 mg PO BID 05/15/17 Insulin Aspart [Novolog] 100 unit SC ACBK 05/15/17 Doxycycline Hyclate [Vibramycin] 100 mg PO BID #14 cap 05/24/17 Insulin Detemir [Levemir] 8 unit SUBCU BEDTIME #1 pen 05/24/17 Review of Systems - Review of Systems Constitutional: States: no symptoms reported EENTM: States: no symptoms reported Respiratory: States: no symptoms reported Cardiology: States: see HPI Gastrointestinal/Abdominal: States: see HPI Genitourinary: States: no symptoms reported Musculoskeletal: States: no symptoms reported Skin: States: no symptoms reported Neurological: States: no symptoms reported Endocrine: States: no symptoms reported Past Medical History (General) - Patient Medical History Hx Seizures: No Hx Stroke: No Hx Dementia: No Hx Asthma: No Hx of COPD: No Hx Cardiac Disorders: No Hx Congestive Heart Failure: No Hx Pacemaker: No Hx Hypertension: No Hx Thyroid Disease: No Hx Diabetes: Yes - history of DKA Hx Gastroesophageal Reflux: Yes Hx Renal Disease: No Hx Cancer: No Hx of HIV: No Hx Hepatitis C: No Hx MRSA: No MRSA Source:: Blood Surgical History: appendectomy, cholecystectomy, other - hysterectomy - Vaccination History Hx Tetanus, Diphtheria Vaccination: No Hx Influenza Vaccination: No - Cannot take the flu shot Hx Pneumococcal Vaccination: No - Social History Hx Tobacco Use: Yes Hx Chewing Tobacco Use: No Hx Alcohol Use: No Hx Substance Use: Yes Hx Substance Use Treatment: No Hx Depression: Yes Hx Physical Abuse: No Hx Emotional Abuse: No Hx Suspected Abuse: No - Activities of Daily Living Patient Lives Alone: No - family - Female History Hx Last Menstrual Period: 11/05/11 - hysterectomy Patient : No Family Medical History - Family History Mother Family History: No Known Name: April Age (years): 67 Living Status: Still Living Hx Family Asthma: No Hx Family Congestive Heart Failure: No Hx Family Hypertension: Yes - dad Hx Family Stroke: No Hx Cardiac Disease: No Hx Family Diabetes: No Hx Family Cancer: No Hx Family;Other: Thyroid -mom;HTN-dad Father Family History: No Known Name: Marlon Age (years): 65 Living Status: Still Living Hx Family Asthma: - Sister Hx Family Congestive Heart Failure: No Hx Family Hypertension: Yes Hx Family Stroke: No Hx Cardiac Disease: - Grandfather. Hx Family Diabetes: No - Pt Age of Onset (years of age): 33 Hx Family Cancer: Yes - Grandmother Lympoma Physical Exam - Physical Exam General Appearance: Alert, Anxious, No apparent distress Eye Exam: bilateral normal Ears, Nose, Throat: hearing grossly normal, normal ENT inspection, normal pharynx Neck: non-tender, supple Respiratory: lungs clear, normal breath sounds, no respiratory distress Cardiovascular/Chest: normal peripheral pulses, no murmur, tachycardia Peripheral Pulses: radial,right: 2+, radial,left: 2+ Gastrointestinal/Abdominal: non tender, soft, no organomegaly Extremity: non-tender, no pedal edema, no calf tenderness Neurologic: alert, normal mood/affect, oriented x 3 Skin Exam: normal color, warm/dry Progress - Progress Progress: 06/06/17 10:03 Vital Signs - 8 hr 06/06/17 09:37 Temperature 98.2 F Pulse Rate [ 135 H Right Radial] Respiratory 22 Rate Blood Pressure 127/86 [Right Arm] O2 Sat by Pulse 98 Oximetry 06/06/17 17:53 Laboratory Tests 06/06/17 06/06/17 06/06/17 09:45 09:45 09:45 WBC 3.6 L RBC 5.25 Hgb 13.7 Hct 42.6 MCV 81.2 MCH 26.0 L MCHC 32.2 L RDW 15.1 H Plt Count 207 MPV 9.2 Absolute Neuts (auto) 2.80 Absolute Lymphs (auto) 0.50 L Absolute Monos (auto) 0.20 Absolute Eos (auto) 0.00 Absolute Basos (auto) 0.10 Neutrophils % 77.1 Lymphocytes % 14.8 L Monocytes % 6.3 Eosinophils % 0.3 L Basophils % 1.5 D-Dimer, Quantitative 268 H* pCO2 pO2 HCO3 ABG pH ABG O2 Saturation ABG Base Excess ABG Deoxyhemoglobin Oxyhemoglobin % Carboxyhemoglobin % Methemoglobin % Sat Calc Total Hemoglobin Sodium 130 L Potassium 4.6 Chloride 99 L Carbon Dioxide 12 L* Anion Gap 23.6 H BUN 13 Creatinine 0.82 BUN/Creatinine Ratio 15.9 POC Glucose Random Glucose 573 H* Serum Osmolality 287.1 Calcium 9.2 Total Bilirubin 1.1 H AST 178 H ALT 192 H Alkaline Phosphatase 266 H Troponin I Serum Total Protein 8.3 H Albumin 4.4 Globulin 3.9 H Albumin/Globulin Ratio 1.1 Lipase 21 L Urine Color Urine Appearance Urine pH Ur Specific [place] Urine Protein Urine Glucose (UA) Urine Ketones Urine Blood Urine Nitrite Urine Bilirubin Urine Urobilinogen Ur Leukocyte Esterase Urine RBC Urine WBC Ur Epithelial Cells Urine Bacteria Urine Trichomonas Urine HCG, Qual Urine Opiates Screen Urine Barbiturates Ur Phencyclidine Scrn U Amphetamin/Meth Scrn U Benzodiazepines Scrn U Cocaine Metab Screen U Cannabinoids Screen 06/06/17 06/06/17 06/06/17 09:45 10:31 10:31 WBC RBC Hgb Hct MCV MCH MCHC RDW Plt Count MPV Absolute Neuts (auto) Absolute Lymphs (auto) Absolute Monos (auto) Absolute Eos (auto) Absolute Basos (auto) Neutrophils % Lymphocytes % Monocytes % Eosinophils % Basophils % D-Dimer, Quantitative pCO2 pO2 HCO3 ABG pH ABG O2 Saturation ABG Base Excess ABG Deoxyhemoglobin Oxyhemoglobin % Carboxyhemoglobin % Methemoglobin % Sat Calc Total Hemoglobin Sodium Potassium Chloride Carbon Dioxide Anion Gap BUN Creatinine BUN/Creatinine Ratio POC Glucose Random Glucose Serum Osmolality Calcium Total Bilirubin AST ALT Alkaline Phosphatase Troponin I < 0.02 Serum Total Protein Albumin Globulin Albumin/Globulin Ratio Lipase Urine Color Urine Appearance Urine pH Ur Specific [place] Urine Protein Urine Glucose (UA) Urine Ketones Urine Blood Urine Nitrite Urine Bilirubin Urine Urobilinogen Ur Leukocyte Esterase Urine RBC Urine WBC Ur Epithelial Cells Urine Bacteria Urine Trichomonas Urine HCG, Qual Negative Urine Opiates Screen Negative Urine Barbiturates Negative Ur Phencyclidine Scrn Negative U Amphetamin/Meth Scrn Negative U Benzodiazepines Scrn Negative U Cocaine Metab Screen Negative U Cannabinoids Screen Negative 06/06/17 06/06/17 06/06/17 10:31 12:55 12:55 WBC RBC Hgb Hct MCV MCH MCHC RDW Plt Count MPV Absolute Neuts (auto) Absolute Lymphs (auto) Absolute Monos (auto) Absolute Eos (auto) Absolute Basos (auto) Neutrophils % Lymphocytes % Monocytes % Eosinophils % Basophils % D-Dimer, Quantitative pCO2 pO2 HCO3 ABG pH ABG O2 Saturation ABG Base Excess ABG Deoxyhemoglobin Oxyhemoglobin % Carboxyhemoglobin % Methemoglobin % Sat Calc Total Hemoglobin Sodium 133 L Potassium 4.9 Chloride 108 Carbon Dioxide 11 L* Anion Gap 18.9 H BUN 16 Creatinine 0.71 BUN/Creatinine Ratio 22.5 H POC Glucose 388 H Random Glucose 424 H* Serum Osmolality 285.6 Calcium 8.4 Total Bilirubin AST ALT Alkaline Phosphatase Troponin I Serum Total Protein Albumin Globulin Albumin/Globulin Ratio Lipase Urine Color Yellow Urine Appearance Clear Urine pH 5.5 Ur Specific [place] 1.015 Urine Protein Negative Urine Glucose (UA) 500 H Urine Ketones >=160 Urine Blood Small H Urine Nitrite Negative Urine Bilirubin Negative Urine Urobilinogen 0.2 Ur Leukocyte Esterase Negative Urine RBC 5-10 H Urine WBC 5-10 H Ur Epithelial Cells 5-10 Urine Bacteria 1+ Urine Trichomonas 5-10 H Urine HCG, Qual Urine Opiates Screen Urine Barbiturates Ur Phencyclidine Scrn U Amphetamin/Meth Scrn U Benzodiazepines Scrn U Cocaine Metab Screen U Cannabinoids Screen 06/06/17 06/06/17 06/06/17 13:56 14:15 15:32 WBC RBC Hgb Hct MCV MCH MCHC RDW Plt Count MPV Absolute Neuts (auto) Absolute Lymphs (auto) Absolute Monos (auto) Absolute Eos (auto) Absolute Basos (auto) Neutrophils % Lymphocytes % Monocytes % Eosinophils % Basophils % D-Dimer, Quantitative pCO2 17 L* pO2 67 L HCO3 5.6 ABG pH 7.140 L* ABG O2 Saturation 90.1 L ABG Base Excess -22.7 ABG Deoxyhemoglobin 9.6 H Oxyhemoglobin % 87.3 L Carboxyhemoglobin % 2.2 H Methemoglobin % Sat 1.0 Calc Total Hemoglobin 13.5 Sodium 131 L Potassium 5.8 H Chloride 106 Carbon Dioxide 8 L* Anion Gap 22.8 H BUN 15 Creatinine 0.81 BUN/Creatinine Ratio 18.5 POC Glucose Random Glucose 456 H* Serum Osmolality 283.6 Calcium 8.7 Total Bilirubin AST ALT Alkaline Phosphatase Troponin I < 0.02 Serum Total Protein Albumin Globulin Albumin/Globulin Ratio Lipase Urine Color Urine Appearance Urine pH Ur Specific [place] Urine Protein Urine Glucose (UA) Urine Ketones Urine Blood Urine Nitrite Urine Bilirubin Urine Urobilinogen Ur Leukocyte Esterase Urine RBC Urine WBC Ur Epithelial Cells Urine Bacteria Urine Trichomonas Urine HCG, Qual Urine Opiates Screen Urine Barbiturates Ur Phencyclidine Scrn U Amphetamin/Meth Scrn U Benzodiazepines Scrn U Cocaine Metab Screen U Cannabinoids Screen 06/06/17 06/06/17 15:32 17:28 WBC RBC Hgb Hct MCV MCH MCHC RDW Plt Count MPV Absolute Neuts (auto) Absolute Lymphs (auto) Absolute Monos (auto) Absolute Eos (auto) Absolute Basos (auto) Neutrophils % Lymphocytes % Monocytes % Eosinophils % Basophils % D-Dimer, Quantitative pCO2 pO2 HCO3 ABG pH ABG O2 Saturation ABG Base Excess ABG Deoxyhemoglobin Oxyhemoglobin % Carboxyhemoglobin % Methemoglobin % Sat Calc Total Hemoglobin Sodium 132 L Potassium 5.5 H Chloride 111 Carbon Dioxide 8 L* Anion Gap 18.5 H BUN 14 Creatinine 0.79 BUN/Creatinine Ratio 17.7 POC Glucose Random Glucose 319 H D Serum Osmolality 277.2 Calcium 8.1 L Total Bilirubin AST ALT Alkaline Phosphatase Troponin I < 0.02 Serum Total Protein Albumin Globulin Albumin/Globulin Ratio Lipase Urine Color Urine Appearance Urine pH Ur Specific [place] Urine Protein Urine Glucose (UA) Urine Ketones Urine Blood Urine Nitrite Urine Bilirubin Urine Urobilinogen Ur Leukocyte Esterase Urine RBC Urine WBC Ur Epithelial Cells Urine Bacteria Urine Trichomonas Urine HCG, Qual Urine Opiates Screen Urine Barbiturates Ur Phencyclidine Scrn U Amphetamin/Meth Scrn U Benzodiazepines Scrn U Cocaine Metab Screen U Cannabinoids Screen - EKG/XRAY/CT EKG: Sinus, Tachy, nonspecific ST T wave Chg, Unchanged from - 01/31/2017 XRAY: chest - normal Departure - Departure Clinical Impression: DKA (diabetic ketoacidoses) Qualifiers: Diabetes mellitus type: type 1 Diabetes mellitus complication detail: without coma Qualified Code(s): E10.10 - Type 1 diabetes mellitus with ketoacidosis without coma Time of Disposition: 22:12 Disposition: Transfer to Hospital Departure Forms: Patient Portal Self Enrollment Referrals: Joby Rangel MD [Primary Care Provider] - 1-2 Weeks Home Medications: Ambulatory Orders Zolpidem Tartrate [Ambien] 10 mg PO BEDTIME 04/09/16 Pregabalin [Lyrica] 150 mg PO TID 08/18/16 Promethazine Tab [Phenergan Tablet] 25 mg PO Q6H PRN #30 tab 08/20/16 Tizanidine HCl [Zanaflex] 4 mg PO TID 12/18/16 Acetaminophen W/ Codeine [Tylenol W/ CODEINE #3] 1 ea PO Q4HR PRN #12 01/07/17 Insulin Detemir [Levemir Pen] 30 units SUBCU DAILY 01/07/17 Calcium Carb 500Mg-Vitamin D [Oscal 500 + D] 1 each PO BID #60 each 01/18/17 Alprazolam [Xanax] 1 mg PO BID 05/15/17 Insulin Aspart [Novolog] 100 unit SC ACBK 05/15/17 Doxycycline Hyclate [Vibramycin] 100 mg PO BID #14 cap 05/24/17 Insulin Detemir [Levemir] 8 unit SUBCU BEDTIME #1 pen 05/24/17 Transfer to Outside Facility - Transfer Information Accepting Provider:: D/W Dr. Marianela Verde md Accepting Facility: [facility] Reason for Transfer: specialized care not available
[2017-06-06] MEDS ORDERED: INSULIN, REG.(HUMAN) 100 U/ML VIAL IV ONE (10:37)
[2017-06-06] MEDS ORDERED: SODIUM CHLORIDE 0.9% 1000ML 1,000 ML IVS ONE ×2 (11:41→16:09)
--- NOTE | 2017-06-06 11:47 | RAD ---
EXAM DESCRIPTION: Chest,1 View CLINICAL HISTORY: 41 years Female, pain COMPARISON: May 15, 2017 TECHNIQUE: AP portable chest. FINDINGS: Lungs are clear. No consolidation. Heart normal size. IMPRESSION: Normal. Electronically signed by: Bret Wu MD 06/06/2017 11:46 AM CDT
[2017-06-06] MEDS ORDERED: SODIUM CHL 0.9% 250ML (AVIVA) 250 ML IVPB ONE (13:40)
[2017-06-06] MEDS ORDERED: INSULIN, REG.(HUMAN) 100 U/ML VIAL ONE (13:40)
[2017-06-06] MEDS ORDERED: DEX 5% W/NACL 0.45% 1000ML 1,000 ML IVS PRN (13:42)
[2017-06-06] MEDS ORDERED: PROMETHAZINE HCL INJ 25 MG/ML VIAL IM ONE (13:54)
[2017-06-06] MEDS ORDERED: PANTOPRAZOLE INJECTION 80 MG in SODIUM CHLORIDE 0.9% 100ML 80 ML IVPB ONE (13:55)
[2017-06-06] MEDS ORDERED: MORPHINE SULFATE INJ 10 MG/ML VIAL IV ONE (13:56)
[2017-06-06] MEDS ORDERED: INSULIN, REG.(HUMAN) 250 UNITS in SODIUM CHL 0.9% 250ML (AVIVA) 247.5 ML IVPB SCH ×4 (14:00→17:30)
[2017-06-06] MEDS ORDERED: SODIUM CHLORIDE 0.9% 100ML 100 ML IVPB ONE (14:08)
[2017-06-06] MEDS ORDERED: PANTOPRAZOLE SODIUM IV 40 MG VIAL ONE (14:08)
[2017-06-06] MEDS ORDERED: ONDANSETRON INJ 4 MG/2 ML VIAL ONE (19:35)
[2017-06-06] MEDS ORDERED: MORPHINE SULFATE INJ 10 MG/ML VIAL ONE (19:35)
[2017-06-06 22:54] VITALS: BP 105/66; TEMP 98.7; O2SAT 97
== END 2017-06-06 22:53 | disposition short-term general hospital (02) ==
LOC: ER 09:32
DX: E10.10 Type 1 diabetes mellitus with ketoacidosis without coma (principal); K21.9 Gastro-esophageal reflux disease without esophagitis; Z79.4 Long term (current) use of insulin
CPT/HCPCS: 36415; 36416; 36600; 71010; 80048; 80053; 80307; 81001; 81025; 82948; 83690; 84484; 85025; 85379; 93005; J2060; J2270; J2405; J2550; J7030; J7050; J7120; J7799

== ENCOUNTER 2017-06-20 17:55 | Emergency (ER) | payer MEDICARE, MEDICAID ==
--- NOTE | 2017-06-20 18:03 | ED.PDOC ---
History of Present Illness - General Chief Complaint: Drug or Alcohol Abuse Stated Complaint: took unknown amounts of xanax Time Seen by Provider: 06/20/17 17:59 Source: family Exam Limitations: no limitations - History of Present Illness Initial Comments: Shwetha Perkins 41 y/o female brought by her mom after she noticed her bottle of alprazolam was empty an hour ago and noted that she was crawling on the floor today.Patient denies taking it stating that she had given it away.She has history of chronic pain syndrome patient presently with pain management.Denies trying to overdose or harming herself. Timing/Duration: just prior to arrival Severity: moderate Episode Description: took unknown quantity of xanax Associated Symptoms: ingestion Allergies/Adverse Reactions: Allergies Eggs or Egg-derived Products Allergy (Verified 06/06/17 09:37) Fish Allergy Allergy (Verified 06/06/17 09:37) peanut Allergy (Severe, Uncoded 01/29/17 17:09) eggs Allergy (Uncoded 01/29/17 17:09) Home Medications: Ambulatory Orders Zolpidem Tartrate [Ambien] 10 mg PO BEDTIME 04/09/16 Pregabalin [Lyrica] 150 mg PO TID 08/18/16 Promethazine Tab [Phenergan Tablet] 25 mg PO Q6H PRN #30 tab 08/20/16 Tizanidine HCl [Zanaflex] 4 mg PO TID 12/18/16 Acetaminophen W/ Codeine [Tylenol W/ CODEINE #3] 1 ea PO Q4HR PRN #12 01/07/17 Insulin Detemir [Levemir Pen] 30 units SUBCU DAILY 01/07/17 Calcium Carb 500Mg-Vitamin D [Oscal 500 + D] 1 each PO BID #60 each 01/18/17 Alprazolam [Xanax] 1 mg PO BID 05/15/17 Insulin Aspart [Novolog] 100 unit SC ACBK 05/15/17 Doxycycline Hyclate [Vibramycin] 100 mg PO BID #14 cap 05/24/17 Insulin Detemir [Levemir] 8 unit SUBCU BEDTIME #1 pen 05/24/17 Review of Systems - Review of Systems Constitutional: States: no symptoms reported EENTM: States: no symptoms reported Respiratory: States: no symptoms reported Cardiology: States: no symptoms reported Gastrointestinal/Abdominal: States: no symptoms reported Genitourinary: States: no symptoms reported Musculoskeletal: States: no symptoms reported Skin: States: no symptoms reported Past Medical History (General) - Patient Medical History Hx Seizures: No Hx Stroke: No Hx Dementia: No Hx Asthma: No Hx of COPD: No Hx Cardiac Disorders: No Hx Congestive Heart Failure: No Hx Pacemaker: No Hx Hypertension: No Hx Thyroid Disease: No Hx Diabetes: Yes - history of DKA Hx Gastroesophageal Reflux: Yes Hx Renal Disease: No Hx Cancer: No Hx of HIV: No Hx Hepatitis C: No Hx MRSA: No MRSA Source:: Blood - Vaccination History Hx Tetanus, Diphtheria Vaccination: No Hx Influenza Vaccination: No - Cannot take the flu shot Hx Pneumococcal Vaccination: No - Social History Hx Tobacco Use: Yes Hx Chewing Tobacco Use: No Hx Alcohol Use: No Hx Substance Use: Yes Hx Substance Use Treatment: No Hx Depression: Yes Hx Physical Abuse: No Hx Emotional Abuse: No Hx Suspected Abuse: No - Female History Hx Last Menstrual Period: 11/05/11 - hysterectomy Patient : No Family Medical History - Family History Mother Family History: No Known Name: April Age (years): 67 Living Status: Still Living Hx Family Asthma: No Hx Family Congestive Heart Failure: No Hx Family Hypertension: Yes - dad Hx Family Stroke: No Hx Cardiac Disease: No Hx Family Diabetes: No Hx Family Cancer: No Hx Family;Other: Thyroid -mom;HTN-dad Father Family History: No Known Name: Marlon Age (years): 65 Living Status: Still Living Hx Family Asthma: - Sister Hx Family Congestive Heart Failure: No Hx Family Hypertension: Yes Hx Family Stroke: No Hx Cardiac Disease: - Grandfather. Hx Family Diabetes: No - Pt Age of Onset (years of age): 33 Hx Family Cancer: Yes - Grandmother Lympoma Physical Exam - Physical Exam General Appearance: Alert, Anxious, No apparent distress Eyes, Ears, Nose, Throat Exam: PERRL/EOMI, normal ENT inspection, TMs normal, pharynx normal Neck: non-tender, supple Respiratory: lungs clear, normal breath sounds, no respiratory distress Cardiovascular/Chest: normal peripheral pulses, regular rate, rhythm, no murmur Peripheral Pulses: radial,right: 2+, radial,left: 2+, dorsalis pedis,right: 2+, dorsalis pedis,left: 2+ Gastrointestinal/Abdominal: normal bowel sounds, non tender, soft, no organomegaly Extremities Exam: non-tender, normal range of motion Neurological: alert, oriented x 3 Appearance: appropriate appearance, no memory impairment Behavior/Eye Contact/Speech: good eye contact, normal speech Thoughts/Hallucinations: normal thought pattern, no apparent hallucination, other - denies suicidal ideation or attempt Skin Exam: normal color, warm/dry Progress - Progress Progress: 06/20/17 22:20 Last Vital Signs Temp 97.2 F L 06/20/17 18:00 Pulse 109 H 06/20/17 20:21 Resp 14 06/20/17 20:21 BP 112/74 06/20/17 20:21 Pulse Ox 97 06/20/17 20:21 06/20/17 22:23 She is going home with her mother and told her that she has an appointment with [facility] in 06/20/17 22:26 Patient awake,alert ,oriented - Results/Orders Results/Orders: Laboratory Tests 06/20/17 06/20/17 06/20/17 21:11 21:16 21:16 WBC 5.0 RBC 4.39 Hgb 11.4 L Hct 35.4 L MCV 80.7 L MCH 25.9 L MCHC 32.2 L RDW 16.3 H Plt Count 272 MPV 8.4 Absolute Neuts (auto) 2.30 Absolute Lymphs (auto) 1.90 Absolute Monos (auto) 0.70 Absolute Eos (auto) 0.10 Absolute Basos (auto) 0.10 Neutrophils % 45.4 Lymphocytes % 37.8 Monocytes % 13.0 H Eosinophils % 2.3 Basophils % 1.5 Sodium Potassium Chloride Carbon Dioxide Anion Gap BUN Creatinine BUN/Creatinine Ratio Random Glucose Serum Osmolality Calcium Total Bilirubin AST ALT Alkaline Phosphatase Serum Total Protein Albumin Globulin Albumin/Globulin Ratio Urine Color Yellow Urine Appearance Clear Urine pH 6.5 Ur Specific Sylvester 1.020 Urine Protein Negative Urine Glucose (UA) 500 H Urine Ketones Negative Urine Blood Trace-intact H Urine Nitrite Negative Urine Bilirubin Negative Urine Urobilinogen 0.2 Ur Leukocyte Esterase Negative Urine RBC 1-3 Urine WBC 10-20 H Ur Epithelial Cells 10-20 Urine Bacteria 1+ Salicylates Urine Opiates Screen Positive H Acetaminophen Urine Barbiturates Negative Ur Phencyclidine Scrn Negative U Amphetamin/Meth Scrn Negative U Benzodiazepines Scrn Positive H U Cocaine Metab Screen Negative U Cannabinoids Screen Negative Ethyl Alcohol 06/20/17 06/20/17 21:16 21:16 WBC RBC Hgb Hct MCV MCH MCHC RDW Plt Count MPV Absolute Neuts (auto) Absolute Lymphs (auto) Absolute Monos (auto) Absolute Eos (auto) Absolute Basos (auto) Neutrophils % Lymphocytes % Monocytes % Eosinophils % Basophils % Sodium 135 Potassium 4.5 Chloride 104 Carbon Dioxide 25 Anion Gap 10.5 L BUN 12 Creatinine 0.53 L BUN/Creatinine Ratio 22.6 H Random Glucose 264 H Serum Osmolality 279.1 Calcium 8.7 Total Bilirubin 0.4 AST 177 H ALT 173 H Alkaline Phosphatase 297 H Serum Total Protein 7.0 Albumin 3.6 Globulin 3.4 Albumin/Globulin Ratio 1.1 Urine Color Urine Appearance Urine pH Ur Specific Sylvester Urine Protein Urine Glucose (UA) Urine Ketones Urine Blood Urine Nitrite Urine Bilirubin Urine Urobilinogen Ur Leukocyte Esterase Urine RBC Urine WBC Ur Epithelial Cells Urine Bacteria Salicylates < 4.0 Urine Opiates Screen Acetaminophen < 10.0 L Urine Barbiturates Ur Phencyclidine Scrn U Amphetamin/Meth Scrn U Benzodiazepines Scrn U Cocaine Metab Screen U Cannabinoids Screen Ethyl Alcohol < 5.40 Departure - Departure Clinical Impression: Abnormal liver enzymes, History of diabetes mellitus Drug overdose Qualifiers: Encounter type: initial encounter Injury intent: undetermined intent Qualified Code(s): T50.904A - Poisoning by unspecified drugs, medicaments and biological substances, undetermined, initial encounter Time of Disposition: 22:26 Disposition: Discharge to Home or Self Care Condition: Fair Departure Forms: ED Discharge - Pt. Copy, Patient Portal Self Enrollment Instructions: DI for Drug Overdose in Adults Referrals: Joby Rangel MD [Primary Care Provider] - 1-2 Weeks Home Medications: Ambulatory Orders Zolpidem Tartrate [Ambien] 10 mg PO BEDTIME 04/09/16 Pregabalin [Lyrica] 150 mg PO TID 08/18/16 Promethazine Tab [Phenergan Tablet] 25 mg PO Q6H PRN #30 tab 08/20/16 Tizanidine HCl [Zanaflex] 4 mg PO TID 12/18/16 Acetaminophen W/ Codeine [Tylenol W/ CODEINE #3] 1 ea PO Q4HR PRN #12 01/07/17 Insulin Detemir [Levemir Pen] 30 units SUBCU DAILY 01/07/17 Calcium Carb 500Mg-Vitamin D [Oscal 500 + D] 1 each PO BID #60 each 01/18/17 Alprazolam [Xanax] 1 mg PO BID 05/15/17 Insulin Aspart [Novolog] 100 unit SC ACBK 05/15/17 Doxycycline Hyclate [Vibramycin] 100 mg PO BID #14 cap 05/24/17 Insulin Detemir [Levemir] 8 unit SUBCU BEDTIME #1 pen 05/24/17 Additional Instructions: Follow up with Wilma in am 0830 h;06/21/2017;Need also to follow up with GI specialist for elevated liver enzymes;Continue with all your medications
[2017-06-20] MEDS ORDERED: ACTIVATED CHARCOAL PELLETS 25 GM BTTL PO ONE (18:11)
[2017-06-20] MEDS ORDERED: SORBITOL 70 % 30 ML UD ONE (18:24)
[2017-06-20 18:34] VITALS: TEMP 97.2
[2017-06-20 19:02] VITALS: O2SAT 97
[2017-06-20 22:39] VITALS: BP 127/72
== END 2017-06-20 22:45 | disposition home or self-care (01) ==
LOC: ER 17:55
DX: T42.4X1A Poisoning by benzodiazepines, accidental (unintentional), initial encounter (principal); R74.8 Abnormal levels of other serum enzymes; G89.4 Chronic pain syndrome; Z87.891 Personal history of nicotine dependence; E11.9 Type 2 diabetes mellitus without complications; Y92.9 Unspecified place or not applicable; Z79.4 Long term (current) use of insulin; Z79.899 Other long term (current) drug therapy

== ENCOUNTER 2017-06-27 11:40 | Emergency (ER) | payer MEDICARE, MEDICAID ==
[2017-06-27] MEDS ORDERED: PROMETHAZINE HCL INJ 25 MG in SODIUM CHLORIDE 0.9% 50ML 50 ML IVPB ONE (11:57)
[2017-06-27] MEDS ORDERED: SODIUM CHLORIDE 0.9% 1000ML 1,000 ML IVS ONE (11:57)
[2017-06-27] MEDS ORDERED: ONDANSETRON ODT 8 MG TAB SL ONE (12:08)
--- NOTE | 2017-06-27 12:58 | RAD ---
Procedure: XR ABDOMEN 2 VIEWS SUPINE ERECT Exam Date: 06/27/2017 11:58 AM [employer] Ordering Provider: Christian Macdonald Clinical Indication: nv/diabetes Comparison: None Findings: Lungs are clear. Heart size is within normal limits. Abdomen views show non-obstructive bowel gas pattern. No pneumoperitoneum. Moderate volume stool burden. Surgical clips are seen in the right upper quadrant of the abdomen. Impression: No acute pulmonary process. Nonobstructive bowel gas pattern. Electronically signed by: Rob Erickson MD 06/27/2017 12:57 PM [employer]
[2017-06-27] MEDS ORDERED: INSULIN LISPRO 100 UNITS/ML PEN SUBCU ONE ×2 (14:02→16:36)
[2017-06-27] MEDS ORDERED: PROMETHAZINE HCL INJ 25 MG/ML VIAL IM ONE (14:06)
[2017-06-27] MEDS ORDERED: ALPRAZolam 0.25 MG TAB PO ONE (14:07)
--- NOTE | 2017-06-27 14:11 | ED.PDOC ---
History of Present Illness - General Chief Complaint: Diabetic Complaint Stated Complaint: Nausea, vomiting, elevated BS Time Seen by Provider: 06/27/17 11:41 Source: patient, family Exam Limitations: clinical condition - History of Present Illness Initial Comments: the patient is a 41-year-old female presenting to the emergency room secondary to feeling of body aches with some nausea and vomiting that started at around 5 AM this morning. She reports yesterday she was simply not feeling good. She reports her blood sugars were up significantly yesterday. She reported a blood sugar of around 460 this morning. She didn't take her insulin this morning her blood sugar is 260 upon check here today. The patient does at least appear to be having a panic attack. She does have a history of anxiety and depression. She is crying inconsolably and starts to panic when we try to start an IV. No fevers. The patient has had multiple admissions for uncontrolled diabetes and DKA. Timing/Duration: unsure Severity: moderate Improving Factors: nothing Worsening Factors: nothing Associated Symptoms: malaise, nausea/vomiting Allergies/Adverse Reactions: Allergies Eggs or Egg-derived Products Allergy (Verified 06/06/17 09:37) Fish Allergy Allergy (Verified 06/06/17 09:37) peanut Allergy (Severe, Uncoded 01/29/17 17:09) eggs Allergy (Uncoded 01/29/17 17:09) Home Medications: Ambulatory Orders Zolpidem Tartrate [Ambien] 10 mg PO BEDTIME 04/09/16 Pregabalin [Lyrica] 150 mg PO TID 08/18/16 Promethazine Tab [Phenergan Tablet] 25 mg PO Q6H PRN #30 tab 08/20/16 Tizanidine HCl [Zanaflex] 4 mg PO TID 12/18/16 Acetaminophen W/ Codeine [Tylenol W/ CODEINE #3] 1 ea PO Q4HR PRN #12 01/07/17 Insulin Detemir [Levemir Pen] 30 units SUBCU DAILY 01/07/17 Calcium Carb 500Mg-Vitamin D [Oscal 500 + D] 1 each PO BID #60 each 01/18/17 Alprazolam [Xanax] 1 mg PO BID 05/15/17 Insulin Aspart [Novolog] 100 unit SC ACBK 05/15/17 Doxycycline Hyclate [Vibramycin] 100 mg PO BID #14 cap 05/24/17 Insulin Detemir [Levemir] 8 unit SUBCU BEDTIME #1 pen 05/24/17 Review of Systems - Review of Systems Constitutional: States: malaise EENTM: States: no symptoms reported Respiratory: States: no symptoms reported Cardiology: States: no symptoms reported Gastrointestinal/Abdominal: States: nausea Genitourinary: States: no symptoms reported Musculoskeletal: States: back pain - hronic Skin: States: no symptoms reported Neurological: States: anxiety, depressed Endocrine: States: no symptoms reported Hematologic/Lymphatic: States: no symptoms reported All other Systems: No Change from Baseline Past Medical History (General) - Patient Medical History Hx Seizures: No Hx Stroke: No Hx Dementia: No Hx Asthma: No Hx of COPD: No Hx Cardiac Disorders: No Hx Congestive Heart Failure: No Hx Pacemaker: No Hx Hypertension: No Hx Thyroid Disease: No Hx Diabetes: Yes - history of DKA Hx Gastroesophageal Reflux: Yes Hx Renal Disease: No Hx Cancer: No Hx of HIV: No Hx Hepatitis C: No Hx MRSA: No MRSA Source:: Blood - Vaccination History Hx Tetanus, Diphtheria Vaccination: No Hx Influenza Vaccination: No - Cannot take the flu shot Hx Pneumococcal Vaccination: No - Social History Hx Tobacco Use: Yes Hx Chewing Tobacco Use: No Hx Alcohol Use: No Hx Substance Use: Yes Hx Substance Use Treatment: No Hx Depression: Yes Hx Physical Abuse: No Hx Emotional Abuse: No Hx Suspected Abuse: No - Female History Hx Last Menstrual Period: 11/05/11 - hysterectomy Patient : No Family Medical History - Family History Mother Family History: No Known Name: April Age (years): 67 Living Status: Still Living Hx Family Asthma: No Hx Family Congestive Heart Failure: No Hx Family Hypertension: Yes - dad Hx Family Stroke: No Hx Cardiac Disease: No Hx Family Diabetes: No Hx Family Cancer: No Hx Family;Other: Thyroid -mom;HTN-dad Father Family History: No Known Name: Marlon Age (years): 65 Living Status: Still Living Hx Family Asthma: - Sister Hx Family Congestive Heart Failure: No Hx Family Hypertension: Yes Hx Family Stroke: No Hx Cardiac Disease: - Grandfather. Hx Family Diabetes: No - Pt Age of Onset (years of age): 33 Hx Family Cancer: Yes - Grandmother Lympoma Physical Exam - Physical Exam General Appearance: Alert, Anxious, No apparent distress Eye Exam: bilateral normal Ears, Nose, Throat: hearing grossly normal, normal ENT inspection, normal pharynx Neck: full range of motion, supple, normal inspection Respiratory: lungs clear, normal breath sounds, no respiratory distress, no accessory muscle use Cardiovascular/Chest: normal peripheral pulses, regular rate, rhythm, no edema Peripheral Pulses: radial,right: 2+, radial,left: 2+, dorsalis pedis,right: 2+, dorsalis pedis,left: 2+ Gastrointestinal/Abdominal: non tender, soft Rectal Exam: deferred Back Exam: normal inspection, no CVA tenderness, no vertebral tenderness Extremity: normal range of motion, non-tender, no pedal edema, normal capillary refill Neurologic: motorcycle 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 Lab work does not show any evidence of DKA at this time. She is not acidotic. The patient is receiving subcutaneous insulin lispro to get control of her blood sugars. After multiple of panic attacks with several attempts to get a peripheral IV, the patient has elected to go with IM medication to control the nausea and we will attempt oral hydration for now. She does not really appear to be significantly dehydrated. She is receiving some oral Xanax for anxiety. The IM Phenergan should help as well and that effect. We'll reevaluate shortly. Repeat blood sugar is again around 260. The patient has deferred on a external jugular line placement by me at this time. 06/27/17 17:14 the patient seems to be doing well with the nausea medications and the oral hydration at this point. Her blood sugars have remained steady. Lab work does not indicate any DKA. She can continue her Phenergan and Reglan. A scopolamine patch was placed for her leave in place for the next couple of days to help reduce nausea. She does need to do a bland dietand again primarily liquids. She does need to check her blood sugars very frequently for the next 24 hours. ER warnings were given for any worsening. She should follow-up with her primary care doctor tomorrow or Saturday. - Results/Orders Results/Orders: acute abdominal series shows mild constipation but no obstruction or ileus. No perforation. No other acute pathology. EKG shows mild sinus tachycardia. Normal axis. No acute ST segment changes concerning for ischemia. Laboratory Tests 06/27/17 06/27/17 06/27/17 11:50 12:17 12:17 WBC 9.8 RBC 5.30 Hgb 13.8 Hct 43.1 MCV 81.3 MCH 26.0 L MCHC 32.0 L RDW 16.5 H Plt Count 333 MPV 8.8 Absolute Neuts (auto) 7.80 H Absolute Lymphs (auto) 1.30 Absolute Monos (auto) 0.50 Absolute Eos (auto) 0.10 Absolute Basos (auto) 0.10 Neutrophils % 80.3 H Lymphocytes % 13.2 L Monocytes % 5.1 Eosinophils % 0.8 L Basophils % 0.6 pCO2 pO2 HCO3 ABG pH ABG O2 Saturation ABG Base Excess ABG Deoxyhemoglobin Oxyhemoglobin % Carboxyhemoglobin % Methemoglobin % Sat Calc Total Hemoglobin Sodium 133 L Potassium 4.1 Chloride 103 Carbon Dioxide 13 L* Anion Gap 21.1 H BUN 10 Creatinine 0.65 BUN/Creatinine Ratio 15.4 POC Glucose 263 H Random Glucose 299 H Serum Osmolality 276.6 Calcium 9.4 Magnesium 1.8 Total Bilirubin 1.2 H AST 35 ALT 68 H Alkaline Phosphatase 283 H Serum Total Protein 8.2 Albumin 4.5 Globulin 3.7 H Albumin/Globulin Ratio 1.2 Amylase 37 Lipase 16 L Serum HCG, Qual Serum Ketones Small 06/27/17 06/27/17 06/27/17 12:17 12:52 12:53 WBC RBC Hgb Hct MCV MCH MCHC RDW Plt Count MPV Absolute Neuts (auto) Absolute Lymphs (auto) Absolute Monos (auto) Absolute Eos (auto) Absolute Basos (auto) Neutrophils % Lymphocytes % Monocytes % Eosinophils % Basophils % pCO2 21 L pO2 106 HCO3 11.3 ABG pH 7.350 ABG O2 Saturation 99.6 H ABG Base Excess -12.4 ABG Deoxyhemoglobin 0.4 Oxyhemoglobin % 94.7 Carboxyhemoglobin % 3.9 H Methemoglobin % Sat 1.0 Calc Total Hemoglobin 12.8 Sodium Potassium Chloride Carbon Dioxide Anion Gap BUN Creatinine BUN/Creatinine Ratio POC Glucose 260 H Random Glucose Serum Osmolality Calcium Magnesium Total Bilirubin AST ALT Alkaline Phosphatase Serum Total Protein Albumin Globulin Albumin/Globulin Ratio Amylase Lipase Serum HCG, Qual Negative Serum Ketones Departure - Departure Clinical Impression: Diabetic gastroparesis, Anxiety attack Disposition: Discharge to Home or Self Care Condition: Fair Departure Forms: ED Discharge - Pt. Copy, Patient Portal Self Enrollment Instructions: DI for Diabetes Type 2, DI for Gastroparesis, Anxiety and Panic Attacks (Alternative Therapy) Diet: bland diet, diabetic diet Activity: increase activity as tolerated Referrals: Joby Rangel MD [Primary Care Provider] - 1-2 Weeks Home Medications: Ambulatory Orders Zolpidem Tartrate [Ambien] 10 mg PO BEDTIME 04/09/16 Pregabalin [Lyrica] 150 mg PO TID 08/18/16 Promethazine Tab [Phenergan Tablet] 25 mg PO Q6H PRN #30 tab 08/20/16 Tizanidine HCl [Zanaflex] 4 mg PO TID 12/18/16 Acetaminophen W/ Codeine [Tylenol W/ CODEINE #3] 1 ea PO Q4HR PRN #12 01/07/17 Insulin Detemir [Levemir Pen] 30 units SUBCU DAILY 01/07/17 Calcium Carb 500Mg-Vitamin D [Oscal 500 + D] 1 each PO BID #60 each 01/18/17 Alprazolam [Xanax] 1 mg PO BID 05/15/17 Insulin Aspart [Novolog] 100 unit SC ACBK 05/15/17 Doxycycline Hyclate [Vibramycin] 100 mg PO BID #14 cap 05/24/17 Insulin Detemir [Levemir] 8 unit SUBCU BEDTIME #1 pen 05/24/17 Additional Instructions: The patient is a 41-year-old female presenting secondary to multiple symptoms that the patient has had in the past when she has had DKA. She does not appear to be in DKA today. She does have some significant anxiety over her symptoms. The patient's symptoms are probably primarily related to her gastroparesis likely made worse by her recent elevated blood sugars. She does need to hydrate herself orally as much as possible over the next 2-3 days. She also needs to follow her blood sugars very closely for the next 24-48 hours. A scopolamine patch was placed here that can be left in place for the next day or 2 to help reduce nausea. She can continue her Zofran and Phenergan. If she is having any altered mental status then the patch needs to be removed. ER warnings were given for any significant worsening.
[2017-06-27 14:54] VITALS: TEMP 98.2
[2017-06-27] MEDS ORDERED: ACETAMINOPHEN 500 MG TAB PO ONE (15:52)
[2017-06-27 15:55] VITALS: O2SAT 100
[2017-06-27] MEDS ORDERED: SCOPOLAMINE PATCH 1.5MG 1 EA TD ONE (16:03)
[2017-06-27 17:46] VITALS: BP 112/60
== END 2017-06-27 17:38 | disposition home or self-care (01) ==
LOC: ER 11:40
DX: E11.43 Type 2 diabetes mellitus with diabetic autonomic (poly)neuropathy (principal); K31.84 Gastroparesis; Z79.4 Long term (current) use of insulin; F41.0 Panic disorder [episodic paroxysmal anxiety]; Z87.891 Personal history of nicotine dependence; Z79.899 Other long term (current) drug therapy; Z91.012 Allergy to eggs; Z91.010 Allergy to peanuts; Z91.013 Allergy to seafood
CPT/HCPCS: 36415; 36416; 36600; 74020; 80053; 82009; 82150; 82803; 82805; 82948; 83690; 83735; 84703; 85025; 93005; J1815; J2550

== ENCOUNTER 2017-07-08 15:51 | Emergency (ER) | payer MEDICARE, MEDICAID ==
[2017-07-08 16:06] VITALS: TEMP 97.8
--- NOTE | 2017-07-08 16:58 | CT ---
EXAM DESCRIPTION: Head CLINICAL HISTORY: 41 years, Female, headache COMPARISON: FINDINGS: Unenhanced images through the brain. This examination was performed according to our departmental dose optimization program, which includes automatic exposure control, adjustment of the MA and/or kV according to the patient size and/or use of iterative reconstruction technique. No definite intracranial hemorrhage or mass. Slightly prominent sulci in the frontal region may be normal variant or some mild atrophy. No significant paranasal sinus disease visualized portion. Mastoid air cells appear well aerated. IMPRESSION: No intracranial hemorrhage or mass. Evaluation the brain within normal limits. Electronically signed by: Dre Goode MD 07/08/2017 4:57 PM [employer]IAN
[2017-07-08] MEDS: ASPIRIN (CHEWABLE) 81 MG TAB PO ONE (17:07)
[2017-07-08] MEDS: SODIUM CHLORIDE 0.9% (FLUSH) 10 ML SYG IV PRN (17:09)
--- NOTE | 2017-07-08 17:25 | ED.PDOC ---
History of Present Illness - General Chief Complaint: General Stated Complaint: hyperventalation Time Seen by Provider: 07/08/17 15:56 Source: patient Exam Limitations: no limitations - History of Present Illness Initial Comments: PT PRESENTS TO THE ED WITH COMPLAINT OF PANIC ATTACK THAT BEGAN WITH SUDDEN HEADACHE AND CHEST DISCOMFORT SINCE THIS AM. PT REPORTS TAKING XANAX 1 HOUR PRIOR TO ARRIVAL WITHOUT RELIEF. Timing/Duration: 4-6 hours Severity: severe Improving Factors: nothing Worsening Factors: nothing Associated Symptoms: chest pain, headaches Allergies/Adverse Reactions: Allergies Eggs or Egg-derived Products Allergy (Verified 06/06/17 09:37) Fish Allergy Allergy (Verified 06/06/17 09:37) peanut Allergy (Severe, Uncoded 01/29/17 17:09) eggs Allergy (Uncoded 01/29/17 17:09) Home Medications: Ambulatory Orders Zolpidem Tartrate [Ambien] 10 mg PO BEDTIME 04/09/16 Pregabalin [Lyrica] 150 mg PO TID 08/18/16 Promethazine Tab [Phenergan Tablet] 25 mg PO Q6H PRN #30 tab 08/20/16 Tizanidine HCl [Zanaflex] 4 mg PO TID 12/18/16 Acetaminophen W/ Codeine [Tylenol W/ CODEINE #3] 1 ea PO Q4HR PRN #12 01/07/17 Insulin Detemir [Levemir Pen] 30 units SUBCU DAILY 01/07/17 Calcium Carb 500Mg-Vitamin D [Oscal 500 + D] 1 each PO BID #60 each 01/18/17 Alprazolam [Xanax] 1 mg PO BID 05/15/17 Insulin Aspart [Novolog] 100 unit SC ACBK 05/15/17 Doxycycline Hyclate [Vibramycin] 100 mg PO BID #14 cap 05/24/17 Insulin Detemir [Levemir] 8 unit SUBCU BEDTIME #1 pen 05/24/17 Review of Systems - Review of Systems Constitutional: Denies: chills, fever EENTM: Denies: nose congestion, throat pain Respiratory: States: short of breath. Denies: cough Cardiology: States: chest pain, palpitations Gastrointestinal/Abdominal: Denies: diarrhea, nausea Genitourinary: Denies: frequency, hematuria Musculoskeletal: Denies: joint pain, joint swelling Skin: Denies: change in hair/nails, dryness Neurological: States: see HPI, anxiety, headache, paresthesia Endocrine: States: no symptoms reported Hematologic/Lymphatic: States: no symptoms reported Past Medical History (General) - Patient Medical History Hx Seizures: No Hx Stroke: No Hx Dementia: No Hx Asthma: No Hx of COPD: No Hx Cardiac Disorders: No Hx Congestive Heart Failure: No Hx Pacemaker: No Hx Hypertension: No Hx Thyroid Disease: No Hx Diabetes: Yes - history of DKA Hx Gastroesophageal Reflux: Yes Hx Renal Disease: No Hx Cancer: No Hx of HIV: No Hx Hepatitis C: No Hx MRSA: No MRSA Source:: Blood Surgical History: appendectomy, cholecystectomy - Vaccination History Hx Tetanus, Diphtheria Vaccination: No Hx Influenza Vaccination: No Hx Pneumococcal Vaccination: No Immunizations Up to Date: No - Social History Hx Tobacco Use: Yes Hx Chewing Tobacco Use: No Hx Alcohol Use: No Hx Substance Use: No Hx Substance Use Treatment: No Hx Depression: No Hx Physical Abuse: No Hx Emotional Abuse: No Hx Suspected Abuse: No - Female History Hx Last Menstrual Period: 11/05/11 - hysterectomy Patient : No Family Medical History - Family History Mother Family History: No Known Name: April Age (years): 67 Living Status: Still Living Hx Family Asthma: No Hx Family Congestive Heart Failure: No Hx Family Hypertension: Yes - dad Hx Family Stroke: No Hx Cardiac Disease: No Hx Family Diabetes: No Hx Family Cancer: No Hx Family;Other: Thyroid -mom;HTN-dad Father Family History: No Known Name: Marlon Age (years): 65 Living Status: Still Living Hx Family Asthma: - Sister Hx Family Congestive Heart Failure: No Hx Family Hypertension: Yes Hx Family Stroke: No Hx Cardiac Disease: - Grandfather. Hx Family Diabetes: No - Pt Age of Onset (years of age): 33 Hx Family Cancer: Yes - Grandmother Lympoma Physical Exam - Physical Exam General Appearance: Alert, Anxious, Well Groomed, Well Hydrated, Well Nourished Eye Exam: bilateral normal Ears, Nose, Throat: hearing grossly normal, normal ENT inspection Neck: full range of motion, supple Respiratory: chest non-tender, lungs clear, normal breath sounds, no respiratory distress Cardiovascular/Chest: no murmur, tachycardia Gastrointestinal/Abdominal: normal bowel sounds, non tender, soft Neurologic: no motor/sensory deficits, alert, normal mood/affect, oriented x 3 Skin Exam: normal color, warm/dry Progress - Progress Progress: 07/08/17 17:56 PT REPORTS SIGNIFICANT IMPROVEMENT IN SYMPTOMS AFTER IV ATIVAN, IV TORADOL, AND IV PHENERGAN. LABS AND DIAGNOSTIC STUDIES DISCUSSED. - Results/Orders Results/Orders: 07/08/17 16:06 IV Care:Saline Lock per Protoc QSHIFT Telemetry ONCE Sodium Chloride 0.9% (Flush) [Saline Flush Syringe] 3 ml IV PRN PRN 07/08/17 16:07 Pulse Oximetry Assessment DAILY 07/08/17 16:15 EKG STAT 07/08/17 16:30 URINE CULTURE W/COLONY COUNT Stat 07/08/17 17:35 Promethazine HCl Inj [Phenergan Inj] 25 mg Sodium Chloride 0.9% 50Ml [NS 50ml ] 50 ml IVPB ONCE 07/09/17 09:00 Pulse Ox Daily Laboratory Results - last 24 hr 07/08/17 07/08/17 07/08/17 16:30 16:30 17:04 WBC 11.8 H RBC 4.91 Hgb 13.0 Hct 39.2 MCV 79.8 L MCH 26.4 L MCHC 33.1 RDW 15.6 H Plt Count 433 H MPV 7.7 Absolute Neuts (auto) 9.50 H Absolute Lymphs (auto) 1.30 Absolute Monos (auto) 0.70 Absolute Eos (auto) 0.30 Absolute Basos (auto) 0.10 Neutrophils % 80.5 H Lymphocytes % 10.9 L Monocytes % 5.9 Eosinophils % 2.1 Basophils % 0.6 PT 10.4 INR 0.920 PTT (SP) 28.4 Sodium 138 Potassium 3.3 L Chloride 108 Carbon Dioxide 21 Anion Gap 12.3 BUN 7 Creatinine 0.47 L BUN/Creatinine Ratio 14.9 Random Glucose 72 Serum Osmolality 272.2 L Calcium 9.4 Magnesium 1.6 L Creatine Kinase 42 CK-MB (CK-2) 0.6 CK-MB (CK-2) % Not Reportable Troponin I < 0.02 Urine Color Yellow Urine Appearance Clear Urine pH 6.0 Ur Specific [place] <= 1.005 Urine Protein Negative Urine Glucose (UA) 100 H Urine Ketones Negative Urine Blood Small H Urine Nitrite Negative Urine Bilirubin Negative Urine Urobilinogen 0.2 Ur Leukocyte Esterase Small H Urine RBC 0-1 Urine WBC 0-1 Ur Epithelial Cells 0-1 Amorphous Sediment 1+ Urine Bacteria 0 Urine Trichomonas 0-1 H Urine Opiates Screen Positive H Urine Barbiturates Negative Ur Phencyclidine Scrn Negative U Amphetamin/Meth Scrn Negative U Benzodiazepines Scrn Positive H U Cocaine Metab Screen Negative U Cannabinoids Screen Negative - EKG/XRAY/CT EKG: Sinus, Tachy - @107BPM, NL INTERVALS, LAD, , no ST T wave changes, Unchanged from - 06/27/17 XRAY: chest - NO ACUTE FINDINGS CT Ordered: Yes - CT HEAD: NO ACUTE FINDINGS Departure - Departure Clinical Impression: Anxiety attack Headache Qualifiers: Headache type: unspecified Headache chronicity pattern: acute headache Intractability: not intractable Qualified Code(s): R51 - Headache Chest pain Qualifiers: Chest pain type: unspecified Qualified Code(s): R07.9 - Chest pain, unspecified Time of Disposition: 17:59 Disposition: Discharge to Home or Self Care Condition: Good Departure Forms: ED Discharge - Pt. Copy, Patient Portal Self Enrollment Instructions: DI for Anxiety -- Adult, DI for Chest Pain, DI for Headache Referrals: Joby Rangel MD [Primary Care Provider] - 1-2 Weeks Home Medications: Ambulatory Orders Zolpidem Tartrate [Ambien] 10 mg PO BEDTIME 04/09/16 Pregabalin [Lyrica] 150 mg PO TID 08/18/16 Promethazine Tab [Phenergan Tablet] 25 mg PO Q6H PRN #30 tab 08/20/16 Tizanidine HCl [Zanaflex] 4 mg PO TID 12/18/16 Acetaminophen W/ Codeine [Tylenol W/ CODEINE #3] 1 ea PO Q4HR PRN #12 01/07/17 Insulin Detemir [Levemir Pen] 30 units SUBCU DAILY 01/07/17 Calcium Carb 500Mg-Vitamin D [Oscal 500 + D] 1 each PO BID #60 each 01/18/17 Alprazolam [Xanax] 1 mg PO BID 05/15/17 Insulin Aspart [Novolog] 100 unit SC ACBK 05/15/17 Doxycycline Hyclate [Vibramycin] 100 mg PO BID #14 cap 05/24/17 Insulin Detemir [Levemir] 8 unit SUBCU BEDTIME #1 pen 05/24/17
--- NOTE | 2017-07-08 17:29 | RAD ---
EXAM: Chest,1 View CLINICAL INDICATION: 41-year-old female with shortness of breath. TECHNIQUE: Single view, AP portable chest was obtained. COMPARISON: Single view chest 06/06/2017. FINDINGS: Stable cardiac and mediastinal silhouette. Heart size is normal. Lungs are clear without focal opacity, pneumothorax or pleural effusions. The visualized bones are within normal limits. IMPRESSION: No acute cardiopulmonary abnormalities. Electronically signed by: Justa Paniagua MD 07/08/2017 5:27 PM [employer] CONDITION[employer] Workstation: [id number]
[2017-07-08] MEDS ORDERED: PROMETHAZINE HCL INJ 25 MG/ML VIAL ONE (17:47)
[2017-07-08] MEDS ORDERED: SODIUM CHLORIDE 0.9% 50ML 50 ML ONE (17:47)
[2017-07-08] MEDS: KETOROLAC TROMETHAMINE INJ 30 MG/ML VIAL IV ONE (18:09)
[2017-07-08] MEDS: PROMETHAZINE HCL INJ 25 MG in SODIUM CHLORIDE 0.9% 50ML 50 ML IVPB ONE (18:10)
[2017-07-08 18:20] VITALS: O2SAT 96
[2017-07-08 19:16] VITALS: BP 99/60
== END 2017-07-08 19:16 | disposition home or self-care (01) ==
LOC: ER 15:51
DX: F41.0 Panic disorder [episodic paroxysmal anxiety] (principal); R51 Headache; R07.9 Chest pain, unspecified; Z87.891 Personal history of nicotine dependence; E11.9 Type 2 diabetes mellitus without complications; K21.9 Gastro-esophageal reflux disease without esophagitis; Z79.4 Long term (current) use of insulin; Z79.82 Long term (current) use of aspirin
CPT/HCPCS: 70450; 71010; 80048; 80307; 81001; 82550; 82553; 84484; 85025; 85610; 85730; 87086; 93005; A4216; J1885; J2060; J2550

== ENCOUNTER 2017-08-12 23:08 | Emergency (ER) | payer MEDICARE, MEDICAID ==
[2017-08-12 23:20] VITALS: TEMP 97.7
[2017-08-12] MEDS ORDERED: SODIUM CHLORIDE 0.9% 1000ML 1,000 ML IVS ONE (23:25)
[2017-08-12] MEDS ORDERED: PROMETHAZINE HCL INJ 12.5 MG in SODIUM CHLORIDE 0.9% 50ML 50 ML IVPB ONE (23:29)
[2017-08-12] MEDS ORDERED: ACETAMINOPHEN 500 MG TAB PO ONE (23:29)
[2017-08-13] MEDS ORDERED: PROMETHAZINE HCL INJ 25 MG/ML VIAL ONE (00:02)
[2017-08-13] MEDS ORDERED: SODIUM CHLORIDE 0.9% 50ML 50 ML ONE (00:03)
[2017-08-13] MEDS ORDERED: diazePAM INJ 10 MG/2 ML SYG IV ONE (00:20)
[2017-08-13] MEDS ORDERED: KETOROLAC TROMETHAMINE INJ 30 MG/ML VIAL IV ONE (00:21)
--- NOTE | 2017-08-13 00:24 | ED.PDOC ---
History of Present Illness - General Chief Complaint: GI Problem Stated Complaint: nausea vomiting Time Seen by Provider: 08/12/17 23:17 Source: patient, RN notes reviewed, Vital Signs reviewed, EMS notes reviewed Exam Limitations: no limitations - History of Present Illness Timing/Duration: 24 hours Severity: moderate Worsening Factors: eating Associated Symptoms: nausea/vomiting, weakness - history of dka and gastroparesis, emesis of po phenergan at home, bs 600's yesterday, today 200's Allergies/Adverse Reactions: Allergies Eggs or Egg-derived Products Allergy (Verified 06/06/17 09:37) Fish Allergy Allergy (Verified 06/06/17 09:37) peanut Allergy (Severe, Uncoded 01/29/17 17:09) eggs Allergy (Uncoded 01/29/17 17:09) Home Medications: Ambulatory Orders Zolpidem Tartrate [Ambien] 10 mg PO BEDTIME 04/09/16 Promethazine Tab [Phenergan Tablet] 25 mg PO Q6H PRN #30 tab 08/20/16 Tizanidine HCl [Zanaflex] 4 mg PO TID 12/18/16 Insulin Detemir [Levemir Pen] 30 units SUBCU DAILY 01/07/17 Alprazolam [Xanax] 1 mg PO BID 05/15/17 Insulin Aspart [Novolog] 100 unit SC ACBK 05/15/17 Insulin Detemir [Levemir] 8 unit SUBCU BEDTIME #1 pen 05/24/17 HYDROcodone 10MG/APAP 325MG [[place] 10/325] 1 ea PO 08/12/17 Klonopin 08/12/17 Lexapro 08/12/17 Lyrica 08/12/17 Dimenhydrinate [Dramamine] 100 mg PO Q6HR PRN #20 chw 08/13/17 Sulfamethoxazole-Trimethoprim [Bactrim Ds 800-160 mg] 1 tablet PO BID 7 Days # 14 tablet 08/13/17 Review of Systems - Review of Systems Constitutional: States: no symptoms reported EENTM: States: no symptoms reported Respiratory: States: no symptoms reported Cardiology: States: no symptoms reported Gastrointestinal/Abdominal: States: nausea, vomiting Genitourinary: States: frequency Musculoskeletal: States: no symptoms reported Skin: States: no symptoms reported Neurological: States: no symptoms reported Endocrine: States: increased thirst, increased urine Hematologic/Lymphatic: States: no symptoms reported Past Medical History (General) - Patient Medical History Hx Seizures: No Hx Stroke: No Hx Dementia: No Hx Asthma: No Hx of COPD: No Hx Cardiac Disorders: No Hx Congestive Heart Failure: No Hx Pacemaker: No Hx Hypertension: No Hx Thyroid Disease: No Hx Diabetes: Yes Hx Gastroesophageal Reflux: Yes Hx Renal Disease: No Hx Cancer: No Hx of HIV: No Hx Hepatitis C: No Hx MRSA: No MRSA Source:: Blood - Vaccination History Hx Tetanus, Diphtheria Vaccination: No Hx Influenza Vaccination: No Hx Pneumococcal Vaccination: No Immunizations Up to Date: No - Social History Hx Tobacco Use: Yes Hx Chewing Tobacco Use: No Hx Alcohol Use: No Hx Substance Use: No Hx Substance Use Treatment: No Hx Depression: No Hx Physical Abuse: No Hx Emotional Abuse: No Hx Suspected Abuse: No - Female History Hx Last Menstrual Period: 11/05/11 - hysterectomy Patient : No Family Medical History - Family History Mother Family History: No Known Name: April Age (years): 67 Living Status: Still Living Hx Family Asthma: No Hx Family Congestive Heart Failure: No Hx Family Hypertension: Yes - dad Hx Family Stroke: No Hx Cardiac Disease: No Hx Family Diabetes: No Hx Family Cancer: No Hx Family;Other: Thyroid -mom;HTN-dad Father Family History: No Known Name: Marlon Age (years): 65 Living Status: Still Living Hx Family Asthma: - Sister Hx Family Congestive Heart Failure: No Hx Family Hypertension: Yes Hx Family Stroke: No Hx Cardiac Disease: - Grandfather. Hx Family Diabetes: No - Pt Age of Onset (years of age): 33 Hx Family Cancer: Yes - Grandmother Lympoma Physical Exam - Physical Exam General Appearance: Alert, Anxious, Ill Appearing, Unkempt Ears, Nose, Throat: normal ENT inspection, normal pharynx Neck: non-tender, full range of motion, supple Respiratory: chest non-tender, lungs clear, normal breath sounds Cardiovascular/Chest: normal peripheral pulses, regular rate, rhythm, no edema, no gallop, no JVD, no murmur Gastrointestinal/Abdominal: normal bowel sounds, non tender, soft Back Exam: normal inspection, CVA tenderness (L) Extremity: normal range of motion, non-tender, normal inspection Neurologic: no motor/sensory deficits, alert Skin Exam: normal color, warm/dry Lymphatic: no adenopathy Progress - Progress Progress: 08/13/17 02:25 08/13/17 02:19 URINALYSIS Stat Laboratory Results WBC 5.7 K/mm3 (4.8-10.8) 08/12/17 00:15 RBC 5.16 M/mm3 (4.20-5.40) 08/12/17 00:15 Hgb 13.5 gm/dL (12.0-16.0) 08/12/17 00:15 Hct 41.1 % (36.0-47.0) 08/12/17 00:15 MCV 79.7 fl (81.0-99.0) L 08/12/17 00:15 MCH 26.1 pg (27.0-31.0) L 08/12/17 00:15 MCHC 32.8 g/dL (33.0-37.0) L 08/12/17 00:15 RDW 14.2 % (11.5-14.5) 08/12/17 00:15 Plt Count 298 K/mm3 (130-400) 08/12/17 00:15 MPV 8.4 fl (7.40-10.4) 08/12/17 00:15 Absolute Neuts (auto) 3.20 K/uL (1.8-6.8) 08/12/17 00:15 Absolute Lymphs (auto) 1.90 K/uL (1.0-3.4) 08/12/17 00:15 Absolute Monos (auto) 0.40 K/uL (0.2-0.8) 08/12/17 00:15 Absolute Eos (auto) 0.20 K/uL (0.0-0.4) 08/12/17 00:15 Absolute Basos (auto) 0.00 K/uL (0.0-0.1) 08/12/17 00:15 Neutrophils % 56.7 % (42.0-78.0) 08/12/17 00:15 Lymphocytes % 32.9 % (20.0-50.0) 08/12/17 00:15 Monocytes % 7.0 % (2.0-9.0) 08/12/17 00:15 Eosinophils % 2.8 % (1.0-5.0) 08/12/17 00:15 Basophils % 0.6 % (0.0-2.0) 08/12/17 00:15 Sodium 137 mmol/L (135-145) 08/12/17 00:15 Potassium 3.1 mmol/L (3.6-5.0) L 08/12/17 00:15 Chloride 105 mmol/L (101-111) 08/12/17 00:15 Carbon Dioxide 22 mmol/L (21-31) 08/12/17 00:15 Anion Gap 13.1 (12-18) 08/12/17 00:15 BUN 8 mg/dL (7-18) 08/12/17 00:15 Creatinine 0.47 mg/dL (0.6-1.3) L 08/12/17 00:15 BUN/Creatinine Ratio 17.0 (10-20) 08/12/17 00:15 Random Glucose 164 mg/dL (70-105) H 08/12/17 00:15 Serum Osmolality 275.8 mOsm/L (275-295) 08/12/17 00:15 Calcium 9.4 mg/dL (8.4-10.2) 08/12/17 00:15 Total Bilirubin 0.7 mg/dL (0.2-1.0) 08/12/17 00:15 AST 31 IU/L (10-42) 08/12/17 00:15 ALT 42 IU/L (10-60) 08/12/17 00:15 Alkaline Phosphatase 121 IU/L (42-121) 08/12/17 00:15 Serum Total Protein 7.3 gm/dL (6.4-8.2) 08/12/17 00:15 Albumin 4.0 g/dl (3.2-5.5) 08/12/17 00:15 Globulin 3.3 gm/dL (2.3-3.5) 08/12/17 00:15 Albumin/Globulin Ratio 1.2 (1.1-1.9) 08/12/17 00:15 08/13/17 02:29 no active vomiting, nausea improved, tolerated po, replaced potassium; pt with acute on chronic vomiting likely related to her gastroparesis. will return if acute fever, problem, concern Departure - Departure Clinical Impression: Abdominal pain, left upper quadrant, Urinary tract bacterial infections Nausea & vomiting Qualifiers: Vomiting type: unspecified Vomiting Intractability: non-intractable Qualified Code(s): R11.2 - Nausea with vomiting, unspecified Diabetes Qualifiers: Diabetes mellitus type: type 1 Diabetes mellitus complication status: with hyperglycemia Qualified Code(s): E10.65 - Type 1 diabetes mellitus with hyperglycemia Disposition: Discharge to Home or Self Care Condition: Good Departure Forms: ED Discharge - Pt. Copy, Patient Portal Self Enrollment Instructions: DI for Gastritis Diet: full liquid diet Activity: increase activity as tolerated Referrals: Joby Rangel MD [Primary Care Provider] - 1-2 Weeks Prescriptions: Dimenhydrinate [Dramamine] 100 mg PO Q6HR PRN #20 chw PRN Reason: Nausea Sulfamethoxazole-Trimethoprim [Bactrim Ds 800-160 mg] 1 tablet PO BID 7 Days # 14 tablet Home Medications: Ambulatory Orders Zolpidem Tartrate [Ambien] 10 mg PO BEDTIME 04/09/16 Promethazine Tab [Phenergan Tablet] 25 mg PO Q6H PRN #30 tab 08/20/16 Tizanidine HCl [Zanaflex] 4 mg PO TID 12/18/16 Insulin Detemir [Levemir Pen] 30 units SUBCU DAILY 01/07/17 Alprazolam [Xanax] 1 mg PO BID 05/15/17 Insulin Aspart [Novolog] 100 unit SC ACBK 05/15/17 Insulin Detemir [Levemir] 8 unit SUBCU BEDTIME #1 pen 05/24/17 HYDROcodone 10MG/APAP 325MG [[place] 10/325] 1 ea PO 08/12/17 Klonopin 08/12/17 Lexapro 08/12/17 Lyrica 08/12/17 Dimenhydrinate [Dramamine] 100 mg PO Q6HR PRN #20 chw 08/13/17 Sulfamethoxazole-Trimethoprim [Bactrim Ds 800-160 mg] 1 tablet PO BID 7 Days # 14 tablet 08/13/17
[2017-08-13] MEDS ORDERED: POTASSIUM CHLORIDE 20 MEQ TAB PO ONE (01:38)
[2017-08-13] MEDS ORDERED: SULFA/TRIMETH TAB 800/160 (ER) 1 EA TAB PO ONE (02:53)
[2017-08-13 03:15] VITALS: BP 102/68; O2SAT 99
== END 2017-08-13 03:50 | disposition home or self-care (01) ==
LOC: ER 23:08
DX: E10.65 Type 1 diabetes mellitus with hyperglycemia (principal); N39.0 Urinary tract infection, site not specified; R11.2 Nausea with vomiting, unspecified; Z87.891 Personal history of nicotine dependence; K21.9 Gastro-esophageal reflux disease without esophagitis; Z79.899 Other long term (current) drug therapy; Z79.4 Long term (current) use of insulin
CPT/HCPCS: 36415; 80053; 81001; 85025; A4216; J1885; J2550; J3360; J7030

== ENCOUNTER 2017-08-15 04:37 | Emergency (ER) | payer MEDICARE, MEDICAID ==
[2017-08-15 04:47] VITALS: O2SAT 100
[2017-08-15] MEDS ORDERED: ONDANSETRON ODT 8 MG TAB SL ONE (05:10)
[2017-08-15] MEDS ORDERED: METOCLOPRAMIDE HCL 5 MG TAB PO ONE (05:10)
[2017-08-15] MEDS ORDERED: ALUM & MAG HYDROX-SIMETHICONE 30 ML, LIDOCAINE VISCOUS 2% 15 ML PO ONE ×2 (05:10)
[2017-08-15] MEDS ORDERED: LIDOCAINE HCL 2% (MOUTH-THROAT) 15 ML UD ONE (05:13)
[2017-08-15] MEDS ORDERED: ALUM & MAG HYDROX-SIMETHICONE 30 ML UD ONE (05:13)
--- NOTE | 2017-08-15 05:37 | RAD ---
EXAM DESCRIPTION: Abdomen Series CLINICAL HISTORY: abd, back pain, n/v COMPARISON: 06/27/2017 FINDINGS: Single view of the chest with upright and spine views of the abdomen. Cardiac mediastinal silhouette has normal size and contour. No consolidation, pneumothorax, or pleural effusion. No rib fractures identified. No definite free intraperitoneal air. Air-filled loops of nondilated large and small bowel. Prior cholecystectomy. Phleboliths in the pelvis. No other definite abnormal calcifications identified. No acute osseous abnormalities. IMPRESSION: 1. No acute pulmonary process. 2. Nonobstructive bowel gas pattern Electronically signed by: Freddy Ovalle 08/15/2017 5:36 AM [employer]
--- NOTE | 2017-08-15 05:40 | ED.PDOC ---
History of Present Illness - General Chief Complaint: Abdominal Pain Stated Complaint: N/V since yesterday, back pain, not feeling better Time Seen by Provider: 08/15/17 04:58 Source: patient Exam Limitations: no limitations - History of Present Illness Initial Comments: the patient is a 41-year-old female presented to emergency room secondary to the report of 2-3 days of symptoms of nausea and vomiting. No blood and no bile. The patient is a insulin-dependent diabetic and has had DKA in the past. The patient does have known significant gastroparesis and chronic constipation, complicating the acute picture. She has also had some mild runny nose and sore throat as well for the last couple of days. Influenza is rampant in the community. Blood sugars actually appear fairly well-controlled with a glucose of 118 here this morning. The patient has significant anxiety which does complicate the picture as well. The patient averages 1-2 ER visits per month. The patient does get very significant anxiety, particularly when trying to obtain an IV or lab work secondary to difficulty with that from her multiple ER and hospital stays. She does very frequently refuse blood draws and IV attempts. She was seen here 2 days ago and did actually have lab work performed at that time that was fairly reassuring. The patient is uncertain if she has had fevers. After almost 2 hours of monitoring the patient has not thrown up at all. Timing/Duration: unsure Severity: moderate Improving Factors: nothing Worsening Factors: nothing Associated Symptoms: loss of appetite, malaise, nausea/vomiting, weakness Allergies/Adverse Reactions: Allergies Eggs or Egg-derived Products Allergy (Verified 08/15/17 04:47) Fish Allergy Allergy (Verified 08/15/17 04:47) peanut Allergy (Severe, Uncoded 08/15/17 04:47) eggs Allergy (Uncoded 08/15/17 04:47) Home Medications: Ambulatory Orders Zolpidem Tartrate [Ambien] 10 mg PO BEDTIME 04/09/16 Promethazine Tab [Phenergan Tablet] 25 mg PO Q6H PRN #30 tab 08/20/16 Tizanidine HCl [Zanaflex] 4 mg PO TID 12/18/16 Insulin Detemir [Levemir Pen] 30 units SUBCU DAILY 01/07/17 Alprazolam [Xanax] 1 mg PO BID 05/15/17 Insulin Aspart [Novolog] 100 unit SC ACBK 05/15/17 Insulin Detemir [Levemir] 8 unit SUBCU BEDTIME #1 pen 05/24/17 HYDROcodone 10MG/APAP 325MG [Wellman ] 1 ea PO 08/12/17 Klonopin 08/12/17 Lexapro 08/12/17 Lyrica 08/12/17 Dimenhydrinate [Dramamine] 100 mg PO Q6HR PRN #20 chw 08/13/17 Sulfamethoxazole-Trimethoprim [Bactrim Ds 800-160 mg] 1 tablet PO BID 7 Days # 14 tablet 08/13/17 Review of Systems - Review of Systems Constitutional: States: diaphoresis, malaise, weakness EENTM: States: nose congestion, throat pain Respiratory: States: cough. Denies: orthopnea, short of breath, stridor, wheezing Cardiology: Denies: chest pain, edema, palpitations, syncope Gastrointestinal/Abdominal: States: abdominal pain, constipation, nausea, vomiting Musculoskeletal: States: other - generalized body aches Skin: States: no symptoms reported Neurological: States: anxiety, headache - mild Endocrine: States: no symptoms reported All other Systems: No Change from Baseline Past Medical History (General) - Patient Medical History Hx Seizures: No Hx Stroke: No Hx Dementia: No Hx Asthma: No Hx of COPD: No Hx Cardiac Disorders: No Hx Congestive Heart Failure: No Hx Pacemaker: No Hx Hypertension: No Hx Thyroid Disease: No Hx Diabetes: Yes Hx Gastroesophageal Reflux: Yes Hx Renal Disease: No Hx Cancer: No Hx of HIV: No Hx Hepatitis C: No Hx MRSA: No MRSA Source:: Blood Surgical History: appendectomy, cholecystectomy, Hysterectomy - Vaccination History Hx Tetanus, Diphtheria Vaccination: No Hx Influenza Vaccination: No - allergy Hx Pneumococcal Vaccination: No - Social History Hx Tobacco Use: Yes Hx Chewing Tobacco Use: No Hx Alcohol Use: No Hx Substance Use: No Hx Substance Use Treatment: No Hx Depression: No Hx Physical Abuse: No Hx Emotional Abuse: No Hx Suspected Abuse: No - Female History Hx Last Menstrual Period: 11/05/11 - hysterectomy Patient : No Family Medical History - Family History Mother Family History: No Known Name: April Age (years): 67 Living Status: Still Living Hx Family Asthma: No Hx Family Congestive Heart Failure: No Hx Family Hypertension: Yes - dad Hx Family Stroke: No Hx Cardiac Disease: No Hx Family Diabetes: No Hx Family Cancer: No Hx Family;Other: Thyroid -mom;HTN-dad Father Family History: No Known Name: Marlon Age (years): 65 Living Status: Still Living Hx Family Asthma: - Sister Hx Family Congestive Heart Failure: No Hx Family Hypertension: Yes Hx Family Stroke: No Hx Cardiac Disease: - Grandfather. Hx Family Diabetes: No - Pt Age of Onset (years of age): 33 Hx Family Cancer: Yes - Grandmother Lympoma Physical Exam - Physical Exam General Appearance: Alert, Anxious Eye Exam: bilateral normal Ears, Nose, Throat: hearing grossly normal, nasal congestion, pharyngeal erythema Neck: full range of motion, supple Respiratory: lungs clear, normal breath sounds, no respiratory distress, no accessory muscle use Cardiovascular/Chest: normal peripheral pulses, regular rate, rhythm, no edema Peripheral Pulses: radial,right: 2+, radial,left: 2+, dorsalis pedis,right: 2+, dorsalis pedis,left: 2+ Gastrointestinal/Abdominal: soft, other - the patient reports diffuse abdominal discomfort palpation. No definite rebound or peritoneal signs. No obvious palpable masses. Rectal Exam: deferred Back Exam: no vertebral tenderness Extremity: normal range of motion, non-tender, normal inspection, no pedal edema , normal capillary refill Neurologic: canteen attendant II-XII nml as tested, alert, oriented x 3, other - very anxious Skin Exam: normal color Comments: Vital Signs - 24 hr 08/15/17 04:40 Temperature 97.9 F Pulse Rate [ 97 H monitor] Respiratory 16 Rate Blood Pressure 122/80 [Left Arm] O2 Sat by Pulse 100 Oximetry Progress - Progress Progress: 08/15/17 06:30 the patient's a 41-year-old female with insulin-dependent diabetes presenting secondary to several days of intermittent nausea and vomiting. blood sugars appear to be well controlled. She did have blood work 2 days ago that was reassuring. She has tested negative for strep and flu here today. Her x-ray is reassuring. This is most likely a complication of her gastroparesis. She is to continue her home medications for this. She will have one scopolamine patch placed that can stay in place for up to 3 days to help control some of the nausea. this has worked well for her previously. She needs to maintain primarily a liquid diet. After the liquid diet is up after a couple of days then she needs to progress to a bland diet. She needs to follow up with her primary care doctor on Saturday. ER warnings were given for any significant worsening. - Results/Orders Results/Orders: Laboratory Tests 08/15/17 08/15/17 05:09 05:15 POC Glucose 118 H Group A Strep DNA Negative rapid flu is negative. Acute abdominal series shows no acute pathology. No free air. No bowel obstruction. Moderate stool. Departure - Departure Clinical Impression: Diabetic gastroparesis associated with type 2 diabetes mellitus, Anxiety Disposition: Discharge to Home or Self Care Condition: Fair Departure Forms: ED Discharge - Pt. Copy, Patient Portal Self Enrollment Instructions: DI for Gastroparesis Diet: full liquid diet Activity: increase activity as tolerated Referrals: Joby Rangel MD [Primary Care Provider] - 1-2 Days Home Medications: Ambulatory Orders Zolpidem Tartrate [Ambien] 10 mg PO BEDTIME 04/09/16 Promethazine Tab [Phenergan Tablet] 25 mg PO Q6H PRN #30 tab 08/20/16 Tizanidine HCl [Zanaflex] 4 mg PO TID 12/18/16 Insulin Detemir [Levemir Pen] 30 units SUBCU DAILY 01/07/17 Alprazolam [Xanax] 1 mg PO BID 05/15/17 Insulin Aspart [Novolog] 100 unit SC ACBK 05/15/17 Insulin Detemir [Levemir] 8 unit SUBCU BEDTIME #1 pen 05/24/17 HYDROcodone 10MG/APAP 325MG [Wellman 10/325] 1 ea PO 08/12/17 Klonopin 08/12/17 Lexapro 08/12/17 Lyrica 08/12/17 Dimenhydrinate [Dramamine] 100 mg PO Q6HR PRN #20 chw 08/13/17 Sulfamethoxazole-Trimethoprim [Bactrim Ds 800-160 mg] 1 tablet PO BID 7 Days # 14 tablet 08/13/17 Additional Instructions: the patient's a 41-year-old female with insulin-dependent diabetes presenting secondary to several days of intermittent nausea and vomiting. blood sugars appear to be well controlled. She did have blood work 2 days ago that was reassuring. She has tested negative for strep and flu here today. Her x-ray is reassuring. This is most likely a complication of her gastroparesis. She is to continue her home medications for this. She will have one scopolamine patch placed that can stay in place for up to 3 days to help control some of the nausea. this has worked well for her previously. She needs to maintain primarily a liquid diet. After the liquid diet is up after a couple of days then she needs to progress to a bland diet. She needs to follow up with her primary care doctor on Saturday. ER warnings were given for any significant worsening.
[2017-08-15] MEDS ORDERED: SCOPOLAMINE PATCH 1.5MG 1 EA TD ONE (06:27)
[2017-08-15 06:39] VITALS: BP 115/73; TEMP 98
== END 2017-08-15 06:40 | disposition home or self-care (01) ==
LOC: ER 04:37
DX: E11.43 Type 2 diabetes mellitus with diabetic autonomic (poly)neuropathy (principal); K31.84 Gastroparesis; F41.9 Anxiety disorder, unspecified; K21.9 Gastro-esophageal reflux disease without esophagitis; Z79.4 Long term (current) use of insulin; Z79.899 Other long term (current) drug therapy; Z87.891 Personal history of nicotine dependence

== ENCOUNTER → 2017-08-27 | Outpatient (CLI) | payer MEDICARE, MEDICAID ==
--- NOTE | 2017-08-27 13:49 | MRI ---
EXAM DESCRIPTION: Brain w/wo Contrast: Magnetic Resonance Imaging. CLINICAL HISTORY: CONCUSSION W/ LOC COMPARISON: MRI scan of the cervical spine lumbar spine on the same visit. TECHNIQUE: Multiplanar, high-field MRI, multiple conventional sequences, without and with gadolinium IV contrast. No adverse reactions. Multiple axial diffusion sequences. FINDINGS: Normal FLAIR and T2-weighted signal in the periventricular white matter and madrigal-white matter junctions of the cerebral hemispheres. . Normal signal in the bilateral basal ganglia. No hemorrhage, no cerebral edema, no mass-effect. Normal contrast enhancement. Normal signal in the brainstem and cerebellar hemispheres. No hemorrhage, no cerebral edema, no mass-effect. Normal contrast enhancement. Concordance of the diffusion and non-diffusion sequences with no evidence of acute or subacute infarction. Cortical sulci, ventricles, and other CSF spaces, and the subdural spaces are normally configured. No effacement or displacement. No midline shift. No extra-axial hemorrhage. Normal contrast enhancement. Normal flow signal void in the major vessels of the [place], and the venous sinuses. IACs are symmetric bilaterally. Normal signal and contrast enhancement in the bilateral mastoid air cells. No mass effect in the Cerebellopontine angles. Normal contrast enhancement. Pituitary gland occupies most of the sella. Normal contrast enhancement. Base of the cerebellar tonsils is at the level of the foramen magnum. Normal signal in the paranasal sinuses. The bony calvarium is intact. IMPRESSION: 1. Normal MRI scan of the brain without and with gadolinium IV contrast. No enhancing lesions. No intra-axial or extra-axial hemorrhage. No midline shift. 2. Normal noncontrast MRI diffusion scan with no evidence of significant acute or subacute ischemia or infarction. Electronically signed by: Marlon Proctor MD 08/27/2017 1:48 PM [facility]
--- NOTE | 2017-08-27 14:08 | MRI ---
EXAM DESCRIPTION: Cervical Spine: MRI. CLINICAL HISTORY: CERVICAL MYELOPATHY COMPARISON: MRI scan cervical spine on 06/16/2009. MR scans of the brain without and with contrast and MRI scan lumbar spine today. TECHNIQUE: Multiplanar MRI, multiple sequences, non-contrast High-field. Images somewhat degraded by patient motion. FINDINGS: Minimal C7-T1 disc bulge into the left neural foramen. Normal signal in the remaining cervical discs with no bulging. Disc spaces preserved. Minimal bony narrowing of the left C5-6 and left C6-7 neuroforamina; no stenosis. Canal and remaining neural foramina are patent. Facets are unremarkable. No cord compression or cord edema with normal signal in the cord. Spine is neutral position. Atlantoaxial joint is unremarkable. Base of the cerebellar tonsils is at the level of the foramen magnum. Paravertebral soft tissues are negative. Vertebral bodies are not compressed at any level. Normal marrow signal in the remaining vertebral bodies and the posterior elements. IMPRESSION: 1. Minimal narrowing of the left C5-C6 and C6-7 neural foramina due to bony morphology. Minimal narrowing of the left C7-T1 neural foramen by bulging disc. 2. Remaining discs are unremarkable. Disc spaces are preserved. Remaining neuroforamina are patent. Canal is patent. Normal signal in the cord. All facets are unremarkable. No significant bony abnormalities. Electronically signed by: Marlon Proctor MD 08/27/2017 2:07 PM [facility]
--- NOTE | 2017-08-27 14:51 | MRI ---
EXAM DESCRIPTION: Lumbar Spine w/o Contrast: Magnetic resonance imaging. CLINICAL HISTORY: LUMBAR RADICULOPATHY COMPARISON: Noncontrast MRI scan lumbar spine 03/05/2017. TECHNIQUE: Multiplanar MRI, high-field, lumbar spine multiple sequences, non-contrast. FINDINGS: L5-S1: Normal signal in the disc and disc space preserved. Canal and foramina are patent. T1 signal in the bilateral L5 inferior facets stable since the prior study. Bright T1/T2 signal in the left S1 lamina also stable. Normal facets. L4-5: Normal signal in the disc and disc space preserved. Narrowing of the bilateral lateral recesses. Hypertrophy of the posterior flavum ligaments. Mild canal narrowing. Mild left foraminal narrowing and moderate right foraminal narrowing. L3-4: Unremarkable. L2-3: Normal signal in the disc and normal disc space. Bilateral deformities in the L2 partes interarticulares. Stable. Minimal arthrosis in the facet joints is new since the prior study. No new marrow edema. L1-2: Unremarkable. Conus terminates at this level. T12-L1: Unremarkable. Paravertebral soft tissues are unremarkable. Marrow signal in the vertebral bodies and posterior elements normal. Vertebral body compression not present. No significant scoliosis. IMPRESSION: 1. Again noted is narrowing of the bilateral lateral recesses at L4-5 hypertrophy of the posterior flavum ligaments, and bilateral foraminal narrowing. No canal stenosis or nerve impingement. 2. Bilateral L2 pars interarticularis defects but no spondylolisthesis at L2-3 or L1-2. Bilateral mild L2-3 facet arthrosis is new since the prior study. Electronically signed by: Marlon Proctor MD 08/27/2017 2:50 PM [facility]
== END | disposition home or self-care (01) ==
LOC: MRI 08:00
PROVIDERS: ATTEND Psychiatry & Neurology Neurology
DX: M50.01 Cervical disc disorder with myelopathy, high cervical region (principal); M54.16 Radiculopathy, lumbar region

== ENCOUNTER 2017-09-09 15:26 | Emergency (ER) | payer MEDICARE, MEDICAID ==
[2017-09-09 15:44] VITALS: BP 124/81; TEMP 98; O2SAT 97
[2017-09-09] MEDS ORDERED: diazePAM 2 MG TAB PO ONE (16:00)
[2017-09-09] MEDS ORDERED: INSULIN, REG.(HUMAN) 100 U/ML VIAL SUBCU ONE (17:08)
--- NOTE | 2017-09-09 17:54 | ED.PDOC ---
History of Present Illness - General Chief Complaint: Neuro Symptoms/Deficits Stated Complaint: left eye twitching and hand numbness Time Seen by Provider: 09/09/17 15:50 Source: patient Exam Limitations: no limitations - History of Present Illness Initial Comments: The patient is a 42-year-old female presenting to the emergency room secondary to atypical left-sided symptoms. The patient is currently having an anxiety attack over this as well. The patient is reporting some twitching of her left eye. She is reporting some heaviness of her left hand and arm. She is reporting some pain in her left leg in general. She woke up with all the symptoms this morning. The patient does take numerous pain and anxiety medications. There is no verifiable neurological deficit. I cannot see any twitching of her eyeball or of her eyelids. Symptoms do seem to improve with a dose of Valium. Additionally the patient does continue to have some significant sinus tachycardia at a rate of around 120 235 bpm. This has been noted in the past and partially attributed to anxiety but also partially attributed to medications that she takes. She has not been having any nausea vomiting or diarrhea. She has had some intermittent mild right upper quadrant discomfort. She has had her gallbladder out in the past. Additionally the patient has had some mild elevations of her liver function tests in the past. laboratory work is of course look worse when she is dehydrated.s he does take numerous medications that are metabolized by the liver and do have the potential of causing a hepatitis. he has had viral hepatitis panels performed in the past. She is also apparently had some autoimmune panels performed in the past. Viral panels were apparently negative. I'm uncertain of the autoimmune panel results. Timing/Duration: unsure Severity: mild Improving Factors: nothing Worsening Factors: nothing Associated Symptoms: denies symptoms Allergies/Adverse Reactions: Allergies Fish Allergy Allergy (Verified 09/09/17 15:45) peanut Allergy (Severe, Uncoded 09/09/17 15:45) Home Medications: Ambulatory Orders Zolpidem Tartrate [Ambien] 10 mg PO BEDTIME 04/09/16 Promethazine Tab [Phenergan Tablet] 25 mg PO Q6H PRN #30 tab 08/20/16 Tizanidine HCl [Zanaflex] 4 mg PO TID 12/18/16 Insulin Detemir [Levemir Pen] 30 units SUBCU DAILY 01/07/17 Alprazolam [Xanax] 1 mg PO BID 05/15/17 Insulin Aspart [Novolog] 100 unit SC ACBK 05/15/17 Insulin Detemir [Levemir] 8 unit SUBCU BEDTIME #1 pen 05/24/17 HYDROcodone 10MG/APAP 325MG [[place] ] 1 ea PO 08/12/17 Klonopin 08/12/17 Lexapro 08/12/17 Lyrica 08/12/17 Dimenhydrinate [Dramamine] 100 mg PO Q6HR PRN #20 chw 08/13/17 Sulfamethoxazole-Trimethoprim [Bactrim Ds 800-160 mg] 1 tablet PO BID 7 Days # 14 tablet 08/13/17 Review of Systems - Review of Systems Constitutional: States: no symptoms reported EENTM: States: no symptoms reported Respiratory: States: no symptoms reported Cardiology: States: no symptoms reported Gastrointestinal/Abdominal: States: abdominal pain, nausea - hronic Genitourinary: States: no symptoms reported Musculoskeletal: States: no symptoms reported Skin: States: no symptoms reported Neurological: States: see HPI, anxiety Endocrine: States: no symptoms reported All other Systems: No Change from Baseline Past Medical History (General) - Patient Medical History Hx Seizures: No Hx Stroke: No Hx Dementia: No Hx Asthma: No Hx of COPD: No Hx Cardiac Disorders: No Hx Congestive Heart Failure: No Hx Pacemaker: No Hx Hypertension: No Hx Thyroid Disease: No Hx Diabetes: Yes Hx Gastroesophageal Reflux: Yes Hx Renal Disease: No Hx Cancer: No Hx of HIV: No Hx Hepatitis C: No Hx MRSA: No MRSA Source:: Blood Surgical History: no surgical history - Vaccination History Hx Tetanus, Diphtheria Vaccination: No Hx Influenza Vaccination: No - allergy Hx Pneumococcal Vaccination: No Immunizations Comment: reports that she is no longer allergic to eggs - Social History Hx Tobacco Use: Yes Hx Chewing Tobacco Use: No Hx Alcohol Use: No Hx Substance Use: No Hx Substance Use Treatment: No Hx Depression: No Hx Physical Abuse: No Hx Emotional Abuse: No Hx Suspected Abuse: No - Female History Patient is a Female of Child Bearing Age (10 -59 yrs old): No Hx Last Menstrual Period: 11/05/11 - hysterectomy Patient : No Family Medical History - Family History Mother Family History: No Known Name: April Age (years): 67 Living Status: Still Living Hx Family Asthma: No Hx Family Congestive Heart Failure: No Hx Family Hypertension: Yes - dad Hx Family Stroke: No Hx Cardiac Disease: No Hx Family Diabetes: No Hx Family Cancer: No Hx Family;Other: Thyroid -mom;HTN-dad Father Family History: No Known Name: Marlon Age (years): 65 Living Status: Still Living Hx Family Asthma: - Sister Hx Family Congestive Heart Failure: No Hx Family Hypertension: Yes Hx Family Stroke: No Hx Cardiac Disease: - Grandfather. Hx Family Diabetes: No - Pt Age of Onset (years of age): 33 Hx Family Cancer: Yes - Grandmother Lympoma Physical Exam - Physical Exam General Appearance: Alert, Anxious Eye Exam: bilateral normal Ears, Nose, Throat: hearing grossly normal, normal ENT inspection, normal pharynx Neck: non-tender, supple Respiratory: lungs clear, normal breath sounds, no respiratory distress, no accessory muscle use Cardiovascular/Chest: normal peripheral pulses, no edema, tachycardia - ut a regular rhythm Peripheral Pulses: radial,right: 2+, radial,left: 2+, dorsalis pedis,right: 2+, dorsalis pedis,left: 2+ Gastrointestinal/Abdominal: non tender, soft Rectal Exam: deferred Back Exam: normal inspection, no CVA tenderness, no vertebral tenderness Extremity: normal range of motion, non-tender, normal inspection, no pedal edema , normal capillary refill 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 Actual sensation is preserved in bilateral upper extremities. Her gait is steady. DTR: 2+: Biceps, left, Biceps, right, Patellar, left, Patellar, right - he patient does have dry skin and a mild rash breaking out on her hands from that. Skin Exam: normal color - the patient does have some dry skin and does have a mild rash breaking out on them because of that. Comments: Vital Signs - 24 hr 09/09/17 15:33 Temperature 98.0 F Pulse Rate [ 135 H pulse ox] Respiratory 20 Rate Blood Pressure 124/81 [Right Arm] O2 Sat by Pulse 97 Oximetry Progress - Progress Progress: 09/09/17 17:56 the patient is a 42-year-old female presenting with atypical neurological symptoms. The patient definitely has anxiety but did respond well to a small dose of Valium. she may have woke up this morning with a very mild brachial plexus irritation given her symptoms in her left upper extremity. This is more likely given her sedatives that she takes at night. There are no objective findings here only subjective. I do not see any evidence of any stroke. The patient does have a significant tachycardia that is not of a definite source. She does have 2 medications that are likely contributing as side effects and those are her clonazepam /Klonopin and Phenergan/ promethazine. I have encouraged her when possible to reduce these doses by half. She has agreed to do this until she sees her primary care doctor again later this week. Hopefully this will help reduce her heart rate. At this point in time she cannot have a beta mable or calcium channel mable due to her blood pressures being fairly low because of her other concurrent medications. Additionally the patient does have a mild hepatitis going. She has had a history of mildly elevated liver function tests in the past and has been tested in the past. Levels are a little higher today than has been in the past and this may also be due to medications such as the [place], clonazepam and the Zanaflex. Again I have encouraged her to reduce her clonazepam by half when she can and she can also try and reduce her Zanaflex by half when she can. She needs to discuss with her pain management possibly switching the [place] to a pain medication that does not contain Tylenol. She is to keep herself well- hydrated. Her blood sugars were elevated but she is not in DKA. She did receive a dose of insulin here today. For the rash on her hands she needs to use her Eucerin cream 3 times daily. ER warnings were given. She needs to keep follow-up with her pain management doctor and her primary care doctor for further workup and intervention. Repeat liver function tests should be performed later this week. - Results/Orders Results/Orders: Laboratory Tests 09/09/17 09/09/17 09/09/17 16:18 16:19 16:20 WBC 10.1 RBC 5.24 Hgb 13.8 Hct 41.9 MCV 79.8 L MCH 26.3 L MCHC 32.9 L RDW 14.3 Plt Count 248 MPV 8.8 Absolute Neuts (auto) 7.80 H Absolute Lymphs (auto) 1.70 Absolute Monos (auto) 0.40 Absolute Eos (auto) 0.10 Absolute Basos (auto) 0.10 Neutrophils % 77.8 Lymphocytes % 17.2 L Monocytes % 3.8 Eosinophils % 0.6 L Basophils % 0.6 Sodium Potassium Chloride Carbon Dioxide Anion Gap BUN Creatinine BUN/Creatinine Ratio Random Glucose Serum Osmolality Calcium Magnesium Total Bilirubin AST ALT Alkaline Phosphatase Serum Total Protein Albumin Globulin Albumin/Globulin Ratio Urine Color Yellow Urine Appearance Clear Urine pH 5.5 Ur Specific [place] 1.020 Urine Protein 30 Urine Glucose (UA) 500 H Urine Ketones Negative Urine Blood Moderate H Urine Nitrite Negative Urine Bilirubin Negative Urine Urobilinogen 0.2 Ur Leukocyte Esterase Negative Urine RBC 3-5 H Urine WBC 0-1 Ur Epithelial Cells 1-3 Amorphous Sediment 2+ Urine Bacteria Rare Urine Mucus Moderate Group A Strep DNA Negative 09/09/17 16:20 WBC RBC Hgb Hct MCV MCH MCHC RDW Plt Count MPV Absolute Neuts (auto) Absolute Lymphs (auto) Absolute Monos (auto) Absolute Eos (auto) Absolute Basos (auto) Neutrophils % Lymphocytes % Monocytes % Eosinophils % Basophils % Sodium 138 Potassium 4.2 Chloride 107 Carbon Dioxide 19 L Anion Gap 16.2 BUN 15 Creatinine 0.56 L BUN/Creatinine Ratio 26.8 H Random Glucose 306 H Serum Osmolality 288.0 Calcium 9.0 Magnesium 1.7 L Total Bilirubin 0.3 AST 85 H ALT 329 H Alkaline Phosphatase 282 H Serum Total Protein 7.5 Albumin 3.9 Globulin 3.6 H Albumin/Globulin Ratio 1.1 Urine Color Urine Appearance Urine pH Ur Specific [place] Urine Protein Urine Glucose (UA) Urine Ketones Urine Blood Urine Nitrite Urine Bilirubin Urine Urobilinogen Ur Leukocyte Esterase Urine RBC Urine WBC Ur Epithelial Cells Amorphous Sediment Urine Bacteria Urine Mucus Group A Strep DNA rapid flu is negative. Departure - Departure Clinical Impression: Sinus tachycardia, Radiculopathy affecting upper extremity, Anxiety attack, Dermatitis, Uncontrolled insulin dependent diabetes mellitus, Hepatitis Disposition: Discharge to Home or Self Care Condition: Fair Departure Forms: ED Discharge - Pt. Copy, Patient Portal Self Enrollment Instructions: Toxic Hepatitis, Type 1 Diabetes, DI for Anxiety -- Adult Diet: diabetic diet Activity: increase activity as tolerated Referrals: Joby Rangel MD [Primary Care Provider] - 1-5 Days Home Medications: Ambulatory Orders Zolpidem Tartrate [Ambien] 10 mg PO BEDTIME 04/09/16 Promethazine Tab [Phenergan Tablet] 25 mg PO Q6H PRN #30 tab 08/20/16 Tizanidine HCl [Zanaflex] 4 mg PO TID 12/18/16 Insulin Detemir [Levemir Pen] 30 units SUBCU DAILY 01/07/17 Alprazolam [Xanax] 1 mg PO BID 05/15/17 Insulin Aspart [Novolog] 100 unit SC ACBK 05/15/17 Insulin Detemir [Levemir] 8 unit SUBCU BEDTIME #1 pen 05/24/17 HYDROcodone 10MG/APAP 325MG [[place] 10/325] 1 ea PO 08/12/17 Klonopin 08/12/17 Lexapro 08/12/17 Lyrica 08/12/17 Dimenhydrinate [Dramamine] 100 mg PO Q6HR PRN #20 chw 08/13/17 Sulfamethoxazole-Trimethoprim [Bactrim Ds 800-160 mg] 1 tablet PO BID 7 Days # 14 tablet 08/13/17 Additional Instructions: the patient is a 42-year-old female presenting with atypical neurological symptoms. The patient definitely has anxiety but did respond well to a small dose of Valium. she may have woke up this morning with a very mild brachial plexus irritation given her symptoms in her left upper extremity. This is more likely given her sedatives that she takes at night. There are no objective findings here only subjective. I do not see any evidence of any stroke. The patient does have a significant tachycardia that is not of a definite source. She does have 2 medications that are likely contributing as side effects and those are her clonazepam /Klonopin and Phenergan/ promethazine. I have encouraged her when possible to reduce these doses by half. She has agreed to do this until she sees her primary care doctor again later this week. Hopefully this will help reduce her heart rate. At this point in time she cannot have a beta mable or calcium channel mable due to her blood pressures being fairly low because of her other concurrent medications. Additionally the patient does have a mild hepatitis going. She has had a history of mildly elevated liver function tests in the past and has been tested in the past. Levels are a little higher today than has been in the past and this may also be due to medications such as the [place], clonazepam and the Zanaflex. Again I have encouraged her to reduce her clonazepam by half when she can and she can also try and reduce her Zanaflex by half when she can. She needs to discuss with her pain management possibly switching the [place] to a pain medication that does not contain Tylenol. She is to keep herself well- hydrated. Her blood sugars were elevated but she is not in DKA. She did receive a dose of insulin here today. For the rash on her hands she needs to use her Eucerin cream 3 times daily. ER warnings were given. She needs to keep follow-up with her pain management doctor and her primary care doctor for further workup and intervention. Repeat liver function tests should be performed later this week.
== END 2017-09-09 18:10 | disposition home or self-care (01) ==
LOC: ER 15:26
DX: R00.0 Tachycardia, unspecified (principal); M54.10 Radiculopathy, site unspecified; E11.65 Type 2 diabetes mellitus with hyperglycemia; F41.0 Panic disorder [episodic paroxysmal anxiety]; L30.9 Dermatitis, unspecified; K75.9 Inflammatory liver disease, unspecified; Z79.4 Long term (current) use of insulin; Z79.899 Other long term (current) drug therapy

== ENCOUNTER 2017-09-13 23:10 | Emergency (ER) | payer MEDICARE, MEDICAID ==
[2017-09-13] MEDS ORDERED: fentaNYL CITRATE INJ 50 MCG/ML AMP IV ONE (23:21)
[2017-09-13] MEDS ORDERED: SODIUM CHLORIDE 0.9% 1000ML 1,000 ML IVS ONE (23:21)
[2017-09-13] MEDS ORDERED: PROMETHAZINE HCL INJ 25 MG in SODIUM CHLORIDE 0.9% 50ML 50 ML IVPB ONE (23:22)
--- NOTE | 2017-09-13 23:25 | ED.PDOC ---
History of Present Illness - General Chief Complaint: GI Problem Stated Complaint: exposed to flu Time Seen by Provider: 09/13/17 23:20 Source: RN notes reviewed Exam Limitations: no limitations Additional Information: 42 YR OLD TYPE II DM ON INSULIN WITH HISTORY OF MIGRAINE GASTROPARESIS POOR GLYCEMIC CONTROL RECENTLY DIAGNOSED BY HER NEUROLOGIST POSSIBLE SEIZURE DISORDER PRESENTS WITH MULTIPLE COMPLAINTS LEFT SIDED HEADACHE LEFT EYE BLURRED VISION LEFT UPPER QUADRANT ABD PAIN NAUSEA AND VOMITING POSSIBLE FLU EXPOSURE BLOOD GLUCOSE THIS MORNING WAS 600 - History of Present Illness Timing/Duration: 4-6 hours Severity: moderate Improving Factors: nothing Worsening Factors: nothing Associated Symptoms: denies symptoms Allergies/Adverse Reactions: Allergies Fish Allergy Allergy (Verified 09/09/17 15:45) peanut Allergy (Severe, Uncoded 09/09/17 15:45) Home Medications: Ambulatory Orders Zolpidem Tartrate [Ambien] 10 mg PO BEDTIME 04/09/16 Promethazine Tab [Phenergan Tablet] 25 mg PO Q6H PRN #30 tab 08/20/16 Tizanidine HCl [Zanaflex] 4 mg PO TID 12/18/16 Insulin Detemir [Levemir Pen] 30 units SUBCU DAILY 01/07/17 Alprazolam [Xanax] 1 mg PO BID 05/15/17 Insulin Aspart [Novolog] 100 unit SC ACBK 05/15/17 Insulin Detemir [Levemir] 8 unit SUBCU BEDTIME #1 pen 05/24/17 HYDROcodone 10MG/APAP 325MG [[place] 10/325] 1 ea PO 08/12/17 Klonopin 08/12/17 Lexapro 08/12/17 Lyrica 08/12/17 Dimenhydrinate [Dramamine] 100 mg PO Q6HR PRN #20 chw 08/13/17 Sulfamethoxazole-Trimethoprim [Bactrim Ds 800-160 mg] 1 tablet PO BID 7 Days # 14 tablet 08/13/17 Review of Systems - Review of Systems Constitutional: States: see HPI EENTM: States: no symptoms reported Respiratory: States: no symptoms reported Cardiology: States: no symptoms reported Gastrointestinal/Abdominal: States: see HPI Genitourinary: States: no symptoms reported Musculoskeletal: States: no symptoms reported Skin: States: no symptoms reported Neurological: States: no symptoms reported Endocrine: States: no symptoms reported Hematologic/Lymphatic: States: no symptoms reported Past Medical History (General) - Patient Medical History Hx Seizures: No Hx Stroke: No Hx Dementia: No Hx Asthma: No Hx of COPD: No Hx Cardiac Disorders: No Hx Congestive Heart Failure: No Hx Pacemaker: No Hx Hypertension: No Hx Thyroid Disease: No Hx Diabetes: Yes Hx Gastroesophageal Reflux: Yes Hx Renal Disease: No Hx Cancer: No Hx of HIV: No Hx Hepatitis C: No Hx MRSA: No MRSA Source:: Blood - Vaccination History Hx Tetanus, Diphtheria Vaccination: No Hx Influenza Vaccination: No - allergy Hx Pneumococcal Vaccination: No - Social History Hx Tobacco Use: Yes Hx Chewing Tobacco Use: No Hx Alcohol Use: No Hx Substance Use: No Hx Substance Use Treatment: No Hx Depression: No Hx Physical Abuse: No Hx Emotional Abuse: No Hx Suspected Abuse: No - Female History Hx Last Menstrual Period: 11/05/11 - hysterectomy Patient : No Family Medical History - Family History Mother Family History: No Known Name: Arpil Age (years): 67 Living Status: Still Living Hx Family Asthma: No Hx Family Congestive Heart Failure: No Hx Family Hypertension: Yes - dad Hx Family Stroke: No Hx Cardiac Disease: No Hx Family Diabetes: No Hx Family Cancer: No Hx Family;Other: Thyroid -mom;HTN-dad Father Family History: No Known Name: Marlon Age (years): 65 Living Status: Still Living Hx Family Asthma: - Sister Hx Family Congestive Heart Failure: No Hx Family Hypertension: Yes Hx Family Stroke: No Hx Cardiac Disease: - Grandfather. Hx Family Diabetes: No - Pt Age of Onset (years of age): 33 Hx Family Cancer: Yes - Grandmother Lympoma Physical Exam - Physical Exam General Appearance: Anxious, Comfortable Ears, Nose, Throat: hearing grossly normal, normal ENT inspection, normal pharynx Neck: non-tender, full range of motion, supple Respiratory: chest non-tender, lungs clear, normal breath sounds, no respiratory distress, no accessory muscle use Cardiovascular/Chest: normal peripheral pulses, regular rate, rhythm, no edema, no gallop, no JVD, no murmur Gastrointestinal/Abdominal: normal bowel sounds, non tender, soft, no organomegaly, no pulsatile mass Back Exam: normal inspection, no CVA tenderness 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 Copy, Patient Portal Self Enrollment Referrals: Joby Rangel MD [Primary Care Provider] - 1-2 Weeks Home Medications: Ambulatory Orders Zolpidem Tartrate [Ambien] 10 mg PO BEDTIME 04/09/16 Promethazine Tab [Phenergan Tablet] 25 mg PO Q6H PRN #30 tab 08/20/16 Tizanidine HCl [Zanaflex] 4 mg PO TID 12/18/16 Insulin Detemir [Levemir Pen] 30 units SUBCU DAILY 01/07/17 Alprazolam [Xanax] 1 mg PO BID 05/15/17 Insulin Aspart [Novolog] 100 unit SC ACBK 05/15/17 Insulin Detemir [Levemir] 8 unit SUBCU BEDTIME #1 pen 05/24/17 HYDROcodone 10MG/APAP 325MG [[place] 10/325] 1 ea PO 08/12/17 Klonopin 08/12/17 Lexapro 08/12/17 Lyrica 08/12/17 Dimenhydrinate [Dramamine] 100 mg PO Q6HR PRN #20 chw 08/13/17 Sulfamethoxazole-Trimethoprim [Bactrim Ds 800-160 mg] 1 tablet PO BID 7 Days # 14 tablet 08/13/17
[2017-09-13] MEDS ORDERED: PROMETHAZINE HCL INJ 25 MG/ML VIAL ONE (23:48)
[2017-09-13] MEDS ORDERED: SODIUM CHLORIDE 0.9% 50ML 50 ML ONE (23:49)
[2017-09-14 00:38] VITALS: O2SAT 98
[2017-09-14 01:18] VITALS: BP 112/56; TEMP 97.8
== END 2017-09-14 01:10 | disposition home or self-care (01) ==
LOC: ER 23:10
DX: G43.909 Migraine, unspecified, not intractable, without status migrainosus (principal); E11.43 Type 2 diabetes mellitus with diabetic autonomic (poly)neuropathy; K31.84 Gastroparesis; Z87.891 Personal history of nicotine dependence; Z79.4 Long term (current) use of insulin
CPT/HCPCS: 36415; 36416; 80048; 81001; 82948; 85025; 87804; A4216; J2550; J3010; J7030

== ENCOUNTER 2017-09-14 23:39 | Inpatient (IN) | payer MEDICARE, MEDICAID ==
--- NOTE | 2017-09-15 00:03 | ED.PDOC ---
History of Present Illness - General Chief Complaint: General Stated Complaint: Abd pain and head pain Time Seen by Provider: 09/14/17 23:59 Source: patient Exam Limitations: no limitations - History of Present Illness Initial Comments: Shwetha Perkins 42 y/o female stated that she was seen here last night with vomiting and headache she was given pain shot and IVF.Labs also done did not show elevated wbc,chemistries were normal,flu swab was negative.Tonight she stated vomiting recurred and this time with dull abdominal pains and sharp frontal headaches.Also she mentioned about she was being work up for seizure disorder-absence sz;stating one of her eye gets blurry and also she is having it during her sleep.Had eeg and nerve studies done.Had also mentioned about her bilateral carpal tunnel both hands and being seen by surgeon. Had brain MRI done which was normal,c-spine mri-minimal narrowing of her c5-c7 left side,disc spaces preserved;Lumbar spine mri narrowing of posterior flavum l4-l5 of the posterior ligamentum flavum hypertrophy. Timing/Duration: 24 hours Severity: moderate Improving Factors: nothing Worsening Factors: nothing Associated Symptoms: other - see hpi Allergies/Adverse Reactions: Allergies Fish Allergy Allergy (Verified 09/14/17 23:54) peanut Allergy (Severe, Uncoded 09/09/17 15:45) Home Medications: Ambulatory Orders Zolpidem Tartrate [Ambien] 10 mg PO BEDTIME 04/09/16 Promethazine Tab [Phenergan Tablet] 25 mg PO Q6H PRN #30 tab 08/20/16 Tizanidine HCl [Zanaflex] 4 mg PO TID 12/18/16 Insulin Detemir [Levemir Pen] 30 units SUBCU DAILY 01/07/17 Alprazolam [Xanax] 1 mg PO BID 05/15/17 Insulin Aspart [Novolog] 100 unit SC ACBK 05/15/17 Insulin Detemir [Levemir] 8 unit SUBCU BEDTIME #1 pen 05/24/17 HYDROcodone 10MG/APAP 325MG [[place] 103[address]] 1 ea PO 08/12/17 Klonopin 08/12/17 Lexapro 08/12/17 Lyrica 08/12/17 Dimenhydrinate [Dramamine] 100 mg PO Q6HR PRN #20 chw 08/13/17 Sulfamethoxazole-Trimethoprim [Bactrim Ds 800-160 mg] 1 tablet PO BID 7 Days # 14 tablet 08/13/17 Review of Systems - Review of Systems Constitutional: States: no symptoms reported EENTM: States: no symptoms reported Gastrointestinal/Abdominal: States: see HPI Genitourinary: States: no symptoms reported Musculoskeletal: States: no symptoms reported Skin: States: no symptoms reported Neurological: States: see HPI, headache Endocrine: States: no symptoms reported All other Systems: Reviewed and Negative, No Change from Baseline Past Medical History (General) - Patient Medical History Hx Seizures: No Hx Stroke: No Hx Dementia: No Hx Asthma: No Hx of COPD: No Hx Cardiac Disorders: No Hx Congestive Heart Failure: No Hx Pacemaker: No Hx Hypertension: No Hx Thyroid Disease: No Hx Diabetes: Yes Hx Gastroesophageal Reflux: Yes Hx Renal Disease: No Hx Cancer: No Hx of HIV: No Hx Hepatitis C: No Hx MRSA: No MRSA Source:: Blood Surgical History: other - hysterectomy - Vaccination History Hx Tetanus, Diphtheria Vaccination: No Hx Influenza Vaccination: No - allergy Hx Pneumococcal Vaccination: No - Social History Hx Tobacco Use: Yes Hx Chewing Tobacco Use: No Hx Alcohol Use: No Hx Substance Use: No Hx Substance Use Treatment: No Hx Depression: No Hx Physical Abuse: No Hx Emotional Abuse: No Hx Suspected Abuse: No - Female History Hx Last Menstrual Period: 11/05/11 - hysterectomy Patient : No Family Medical History - Family History Mother Family History: No Known Name: April Age (years): 67 Living Status: Still Living Hx Family Asthma: No Hx Family Congestive Heart Failure: No Hx Family Hypertension: Yes - dad Hx Family Stroke: No Hx Cardiac Disease: No Hx Family Diabetes: No Hx Family Cancer: No Hx Family;Other: Thyroid -mom;HTN-dad Father Family History: No Known Name: Marlon Age (years): 65 Living Status: Still Living Hx Family Asthma: - Sister Hx Family Congestive Heart Failure: No Hx Family Hypertension: Yes Hx Family Stroke: No Hx Cardiac Disease: - Grandfather. Hx Family Diabetes: No - Pt Age of Onset (years of age): 32 Hx Family Cancer: Yes - Grandmother Lymphoma Physical Exam - Physical Exam General Appearance: Alert, Anxious, No apparent distress Eye Exam: bilateral normal Ears, Nose, Throat: hearing grossly normal, normal ENT inspection, normal pharynx Neck: full range of motion, supple Respiratory: chest non-tender, lungs clear, normal breath sounds, no respiratory distress Cardiovascular/Chest: normal peripheral pulses, no gallop, no murmur, tachycardia Peripheral Pulses: radial,right: 2+, radial,left: 2+ Gastrointestinal/Abdominal: normal bowel sounds, soft, no organomegaly, guarding , tenderness - generalized;no peritoneal signs Back Exam: no CVA tenderness, no vertebral tenderness Extremity: no pedal edema, no calf tenderness Neurologic: alert, oriented x 3 Skin Exam: normal color, warm/dry Progress - Progress Progress: 09/15/17 00:39 Vital Signs - 24 hr 09/14/17 23:59 Temperature 97.7 F Pulse Rate [ 119 H monitor] Respiratory 20 Rate Blood Pressure 110/78 [monitor] O2 Sat by Pulse 96 Oximetry - Results/Orders Results/Orders: Laboratory Tests 09/14/17 09/15/17 09/15/17 23:53 00:15 00:30 WBC 5.7 RBC 4.94 Hgb 13.1 Hct 39.6 MCV 80.3 L MCH 26.6 L MCHC 33.1 RDW 14.0 Plt Count 302 MPV 8.5 Absolute Neuts (auto) 2.70 Absolute Lymphs (auto) 2.40 Absolute Monos (auto) 0.50 Absolute Eos (auto) 0.10 Absolute Basos (auto) 0.00 Neutrophils % 46.7 Lymphocytes % 41.9 Monocytes % 8.1 Eosinophils % 2.5 Basophils % 0.8 PT 9.4 INR 0.830 PTT (SP) 29.9 Sodium 131 L Potassium 4.7 Chloride 99 L Carbon Dioxide 21 Anion Gap 15.7 BUN 18 Creatinine 0.48 L BUN/Creatinine Ratio 37.5 H POC Glucose 286 H Random Glucose 388 H D Serum Osmolality 280.6 Calcium 9.1 Magnesium 1.7 L Total Bilirubin 0.3 Direct Bilirubin < 0.1 Indirect Bilirubin 0.2 AST 20 ALT 75 H Alkaline Phosphatase 199 H Creatine Kinase 35 CK-MB (CK-2) 0.6 CK-MB (CK-2) % Not Reportable Troponin I < 0.02 Serum Total Protein 7.0 Albumin 3.7 Lipase 129 H Urine Color Yellow Urine Appearance Clear Urine pH 5.0 Ur Specific [place] 1.015 Urine Protein Negative Urine Glucose (UA) >=1000 H Urine Ketones Negative Urine Blood Trace-lysed H Urine Nitrite Negative Urine Bilirubin Negative Urine Urobilinogen 0.2 Ur Leukocyte Esterase Negative Urine RBC 0-1 Urine WBC 0-1 Ur Epithelial Cells 0-1 Urine Bacteria Rare - EKG/XRAY/CT EKG: Sinus, nonspecific ST T wave Chg Comments: Heart rate-90 XRAY: chest - no acute abnormalities noted CT Ordered: Yes - Abd/pelvis: no obstruction;cyst liver unchanged Departure - Departure Clinical Impression: Hyperglycemia due to type 1 diabetes mellitus Abdominal pain Qualifiers: Abdominal location: generalized Qualified Code(s): R10.84 - Generalized abdominal pain Vomiting Qualifiers: Vomiting type: unspecified Vomiting Intractability: non-intractable Nausea presence: unspecified Qualified Code(s): R11.10 - Vomiting, unspecified Pancreatitis, acute Qualifiers: Pancreatitis type: unspecified pancreatitis type Acute pancreatitis complication: unspecified Qualified Code(s): K85.90 - Acute pancreatitis without necrosis or infection, unspecified Time of Disposition: : Disposition: Admit Patient Condition: Fair Departure Forms: Patient Portal Self Enrollment Referrals: RICHARD NANCE MD [Primary Care Provider] - 1-2 Weeks Home Medications: Ambulatory Orders Zolpidem Tartrate [Ambien] 10 mg PO BEDTIME 04/09/16 Promethazine Tab [Phenergan Tablet] 25 mg PO Q6H PRN #30 tab 08/20/16 Tizanidine HCl [Zanaflex] 4 mg PO TID 12/18/16 Insulin Detemir [Levemir Pen] 30 units SUBCU DAILY 01/07/17 Alprazolam [Xanax] 1 mg PO BID 05/15/17 Insulin Aspart [Novolog] 100 unit SC ACBK 05/15/17 Insulin Detemir [Levemir] 8 unit SUBCU BEDTIME #1 pen 05/24/17 HYDROcodone 10MG/APAP 325MG [[place] ] 1 ea PO 08/12/17 Klonopin 08/12/17 Lexapro 08/12/17 Lyrica 08/12/17 Dimenhydrinate [Dramamine] 100 mg PO Q6HR PRN #20 chw 08/13/17 Sulfamethoxazole-Trimethoprim [Bactrim Ds 800-160 mg] 1 tablet PO BID 7 Days # 14 tablet 08/13/17 Decision To Admit - Decistion To Admit Decision to Admit Reason: Admit from ER Decision to Admit Date: 09/15/17 - D/W Rafa Roper-ANP/Hospitalist Decision to Admit Time: 01:53
[2017-09-15] MEDS ORDERED: PROMETHAZINE HCL INJ 25 MG/ML VIAL IM ONE ×2 (00:04→01:55)
[2017-09-15] MEDS ORDERED: SODIUM CHLORIDE 0.9% 1000ML 1,000 ML IVS ONE ×2 (00:05→02:27)
--- NOTE | 2017-09-15 00:31 | RAD ---
EXAM DESCRIPTION: Chest,1 View CLINICAL HISTORY: 42 years Female cough COMPARISON: 08/15/2017. FINDINGS: The cardiomediastinal silhouette appears unremarkable. No consolidating infiltrates or pleural effusions. No pneumothorax. Cholecystectomy clips in the right upper quadrant. IMPRESSION: No acute abnormality is identified. Electronically signed by: Hao Lisa MD 09/15/2017 12:30 AM [facility]
[2017-09-15] MEDS ORDERED: fentaNYL CITRATE INJ 50 MCG/ML AMP IV ONE ×2 (00:34→01:54)
--- NOTE | 2017-09-15 01:10 | CT ---
EXAM DESCRIPTION: CT ABDOMEN AND PELVIS WITHOUT CONTRAST CLINICAL HISTORY: abdominal pain COMPARISON: 01/26/2017 TECHNIQUE: CT of the abdomen and pelvis without IV contrast. FINDINGS: Abdomen: The liver has normal size and density. Geographic area of hypodensity in the left hepatic lobe is unchanged. Prior cholecystectomy. The spleen, pancreas, and adrenal glands are unremarkable. The kidneys have normal size and contour without evidence of hydronephrosis. No obstructing ureteral calculi. Aortoiliac atherosclerosis. IVC is unremarkable. No free intraperitoneal air. The stomach and duodenum have normal course. Pelvis: Prior hysterectomy. Urinary bladder is unremarkable. No free pelvic fluid or lymphadenopathy. No dilated loops of large or small bowel. Prior appendectomy. Mildly prominent inguinal lymph nodes may be reactive. The visualized lung bases are clear. No destructive bone lesions identified. DLP: 882.97 mGy-cm IMPRESSION: 1. No acute inflammatory or obstructive abnormality identified. 2. Geographic region of hypodensity in the left hepatic lobe is not significantly changed and may represent focal fatty infiltration. Correlation with nonemergent [address] recommended for definitive characterization. This exam was performed according to our departmental dose-optimization program, which includes automated exposure control, adjustment of the mA and/or kV according to patient size and/or use of iterative reconstruction technique. Electronically signed by: Freddy Ovalle 09/15/2017 1:10 AM [employer]
[2017-09-15] MEDS ORDERED: PANTOPRAZOLE SODIUM IV 40 MG VIAL IV ONE (01:39)
[2017-09-15] MEDS ORDERED: INSULIN, REG.(HUMAN) 100 U/ML VIAL SUBCU ONE (01:55)
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
[2017-09-15] MEDS ORDERED: GLUCAGON INJ 1 MG VIAL SUBCU PRN (02:15)
[2017-09-15] MEDS ORDERED: DEXTROSE 50% 25 GM/50 ML SYG IV PRN (02:15)
[2017-09-15] MEDS ORDERED: METOCLOPRAMIDE HCL INJ 10 MG/2 ML VIAL IV ONE (02:27)
[2017-09-15] MEDS ORDERED: ONDANSETRON INJ 4 MG/2 ML VIAL IV PRN (02:28)
[2017-09-15] MEDS ORDERED: IV SET AND CAP CHANGE INJ INJ SCH (02:30)
[2017-09-15] MEDS ORDERED: KCL 20MEQ/0.45% NS 1,000 ML IVS PRN (02:37)
[2017-09-15] MEDS ORDERED: POTASSIUM CHLORIDE 20mEq 10ML VIAL ONE ×2 (02:47→12:20)
[2017-09-15] MEDS ORDERED: SODIUM CHLORIDE 0.45% 1000ML 1,000 ML IVS ONE ×2 (02:47→12:20)
[2017-09-15] MEDS: MORPHINE SULFATE INJ 10 MG/ML VIAL IV PRN ×8 (02:48→22:47)
[2017-09-15] MEDS ORDERED: MAGNESIUM SULFATE PREMIX 2GM 2 GM in PREMIX BAG 1 BAG IVPB ONE (03:02)
[2017-09-15] MEDS ORDERED: MAGNESIUM SULFATE PREMIX 2GM 50 ML IVPB ONE (03:04)
[2017-09-15] MEDS ORDERED: SODIUM CHLORIDE 0.9% 50ML 50 ML ONE ×4 (06:09→18:27)
[2017-09-15] MEDS ORDERED: PROMETHAZINE HCL INJ 25 MG/ML VIAL ONE ×4 (06:09→18:27)
[2017-09-15] MEDS: INSULIN LISPRO 100 UNITS/ML PEN SUBCU SCH ×3 (06:24→19:07)
[2017-09-15] MEDS: PROMETHAZINE HCL INJ 25 MG in SODIUM CHLORIDE 0.9% 50ML 50 ML IVPB PRN ×3 (06:24→18:31)
--- NOTE | 2017-09-15 08:30 | PCM.CORE ---
Physician DVT/VTE - Nurse DVT Assessment & Total Each Risk Factor Represents 1 Point: Age 41-60, Hx of smoking past year Each Risk Factor is 1 Point: Hx of Inflammatory Bowel Disease, Obesity (BMI >25) DVT Assessment Score: 4 - 3-4 High Risk Treatments: Early Ambulation *, Sequential Compression Device Pharmacological: Enoxaparin 40 mg SQ Daily
[2017-09-15] MEDS: PREGABALIN 100 MG CAP PO SCH ×2 (09:48→21:17)
[2017-09-15] MEDS: diazePAM 5 MG TAB PO SCH ×3 (09:48→21:17)
[2017-09-15] MEDS: tiZANidine 4 MG TAB PO SCH ×3 (09:48→21:17)
[2017-09-15] MEDS: ENOXAPARIN SODIUM 40 MG/0.4 ML SYG SUBCU SCH (09:50)
[2017-09-15] MEDS ORDERED: KETOROLAC TROMETHAMINE INJ 30 MG/ML VIAL IV ONE (10:35)
[2017-09-15] MEDS ORDERED: KETOROLAC TROMETHAMINE INJ 30 MG/ML VIAL ONE (10:56)
[2017-09-15] MEDS ORDERED: INSULIN DETEMIR 100 UNITS/ML PEN SUBCU ONE ×2 (11:30)
[2017-09-15] MEDS: POTASSIUM CHLORIDE INJ 20 MEQ 20 MEQ in SODIUM CHLORIDE 0.45% 1000ML 1,000 ML IVS SCH (12:25)
[2017-09-15] MEDS ORDERED: KCL 20MEQ/D5 1/2NS 1,000 ML IVS PRN (16:07)
[2017-09-15] MEDS ORDERED: KCL 20MEQ/D5 1/2NS 1,000 ML IVS ONE (16:11)
[2017-09-15] MEDS: SODIUM CHLORIDE 0.9% (FLUSH) 10 ML SYG IV PRN (16:15)
[2017-09-15] MEDS: ZOLPIDEM TARTRATE 5 MG TAB PO SCH (21:16)
[2017-09-15] MEDS: ESCITALOPRAM 10 MG TAB PO SCH (21:16)
[2017-09-15] MEDS ORDERED: KETOROLAC TROMETHAMINE INJ 30 MG/ML VIAL IV PRN (22:47)
[2017-09-16] MEDS ORDERED: SODIUM CHLORIDE 0.9% 1000ML 1,000 ML ONE (00:36)
[2017-09-16] MEDS ORDERED: SODIUM CHLORIDE 0.9% 1000ML 1,000 ML IVS ONE (00:38)
[2017-09-16] MEDS: INSULIN LISPRO 100 UNITS/ML PEN SUBCU SCH ×5 (00:39→21:07)
[2017-09-16] MEDS ORDERED: INSULIN LISPRO 100 UNITS/ML PEN SUBCU ONE (00:40)
[2017-09-16] MEDS ORDERED: KCL 20MEQ/0.45% NS 1,000 ML IVS SCH (01:00)
[2017-09-16] MEDS ORDERED: INSULIN DETEMIR 100 UNITS/ML PEN SUBCU ONE ×2 (01:35→17:00)
[2017-09-16] MEDS ORDERED: SODIUM CHLORIDE 0.45% 1000ML 1,000 ML IVS ONE ×3 (01:39→19:47)
[2017-09-16] MEDS ORDERED: POTASSIUM CHLORIDE 20mEq 10ML VIAL IV ONE (01:40)
[2017-09-16] MEDS: POTASSIUM CHLORIDE INJ 20 MEQ 20 MEQ in SODIUM CHLORIDE 0.45% 1000ML 1,000 ML IVS SCH ×3 (01:51→20:00)
[2017-09-16] MEDS: MORPHINE SULFATE INJ 10 MG/ML VIAL IV PRN ×8 (02:00→20:41)
[2017-09-16] MEDS: SODIUM CHLORIDE 0.9% (FLUSH) 10 ML SYG IV PRN ×3 (02:02→21:05)
[2017-09-16] MEDS ORDERED: PROMETHAZINE HCL INJ 25 MG/ML VIAL ONE ×2 (04:11→20:48)
[2017-09-16] MEDS ORDERED: SODIUM CHLORIDE 0.9% 50ML 50 ML ONE ×2 (04:12→20:48)
[2017-09-16] MEDS: PROMETHAZINE HCL INJ 25 MG in SODIUM CHLORIDE 0.9% 50ML 50 ML IVPB PRN ×2 (04:16→21:05)
[2017-09-16] MEDS ORDERED: MORPHINE SULFATE INJ 10 MG/ML VIAL IV PRN ×2 (06:45→09:44)
[2017-09-16] MEDS: PREGABALIN 100 MG CAP PO SCH ×3 (08:23→20:43)
[2017-09-16] MEDS: ENOXAPARIN SODIUM 40 MG/0.4 ML SYG SUBCU SCH (08:23)
[2017-09-16] MEDS: diazePAM 5 MG TAB PO SCH ×3 (08:23→20:44)
[2017-09-16] MEDS: tiZANidine 4 MG TAB PO SCH ×4 (08:24→20:43)
[2017-09-16] MEDS ORDERED: MAGNESIUM SULFATE PREMIX 2GM 2 GM in PREMIX BAG 1 BAG IVPB ONE (09:34)
[2017-09-16] MEDS ORDERED: MAGNESIUM SULFATE PREMIX 2GM 50 ML IVPB ONE (10:06)
--- NOTE | 2017-09-16 10:21 | RAD ---
EXAM DESCRIPTION: Abdomen Flat Upright CLINICAL HISTORY: 42 years Female, Acute abdominal pain COMPARISON: None. FINDINGS: There is no free subdiaphragmatic gas or intra-abdominal air-fluid level. The gallbladder is surgically absent. There is a moderate to large amount of colonic stool and gas. No dilated small bowel loops. There is no suspicious intra-abdominal calcification or mass. No concerning bone lesion. IMPRESSION: Moderate to large amount of colonic stool and gas, but no small bowel obstruction or other acute intra-abdominal abnormality. Electronically signed by: Abel Hagen MD 09/16/2017 10:20 AM [facility]
[2017-09-16] MEDS ORDERED: MAGNESIUM HYDROXIDE 30 ML UD ONE (10:29)
[2017-09-16] MEDS ORDERED: NICOTINE PATCH 14 MG TD ONE (10:29)
[2017-09-16] MEDS ORDERED: MAGNESIUM HYDROXIDE 30 ML UD PO ONE (10:35)
[2017-09-16] MEDS ORDERED: POTASSIUM CHLORIDE 20mEq 10ML VIAL ONE ×2 (10:46→19:47)
[2017-09-16] MEDS: PANTOPRAZOLE SODIUM IV 40 MG VIAL IV SCH (10:58)
[2017-09-16] MEDS: NICOTINE PATCH 14 MG TD SCH (10:58)
[2017-09-16] MEDS ORDERED: INSULIN DETEMIR 100 UNITS/ML PEN SUBCU SCH (11:00)
[2017-09-16] MEDS: SENNA/DOCUSATE TAB 1 EA TAB PO SCH ×2 (14:25→20:44)
[2017-09-16] MEDS: POLYETHYLENE GLYCOL 3350 17 GM PCKT PO SCH (14:25)
--- NOTE | 2017-09-16 16:37 | PN ---
DATE: 09-16-17 SUPERVISING PHYSICIAN: Aristides Alvarado MD SUBJECTIVE: The patient still continues to complain of generalized abdominal pain but more so on the left with some bloating. She has had bowel movements daily but very small amounts. She has also had some continued nausea and refused to have her p.o. medications last night but this morning is asking if she can eat. She has been utilizing quite a bit of morphine along with Phenergan for pain control. I discussed transitioning her to p.o. medications as soon as possible. She does remain afebrile and hemodynamically stable. OBJECTIVE: VITAL SIGNS: Temperature 98.0, pulse 87, blood pressure 107/80, respirations 17 , saturation 98% on room air. I&O: Positive balance of 1112 with 412 in and 3000 out. Weight 76.2 kg. CHEST: Lungs clear to auscultation. HEART: Regular rate and rhythm. ABDOMEN : Soft, mildly distended, no rebound tenderness. Does normally have tenderness over the left upper quadrant with some palpation. Bowel sounds are positive. EXTREMITIES: No cyanosis, clubbing, or edema. NEUROLOGICAL: She is alert and oriented x 3. She reports some bilateral sensory loss to her hands which is contributed to her chronic C6 through C8 radiculopathy and bilateral carpal tunnel as well as fibromyalgia. LABORATORY: Chemistries today show a sodium of 139, potassium 4.2, blood sugars have been fairly erratic anywhere from 45 to 516. Magnesium has continued to be low at 1.7, anion gap normal at 15, carbon dioxide back to normal at 21. BUN 10, creatinine 0.6. Liver functions showed to be within normal limits except for continued elevated alkaline phosphatase at 145. Lipase today was 20. She did have a small amount of ketones last night after having a glucose of 512. RADIOLOGY: Abdominal x-ray this morning, 2-view, shows moderate to large amount of colonic stool and gas but no small bowel obstructions or other acute intraabdominal abnormalities. ASSESSMENT: 1. Mild pancreatitis resolved with IV fluids with continued left upper quadrant pain requiring ongoing IV pain management and IV fluids. 2. Moderate dehydration secondary to hyperglycemia with persistent nausea and vomiting prior to admission showing improvement with Phenergan and fluids. 3. Type 1 diabetes mellitus on insulin therapy, poorly controlled with uncontrolled blood sugars during admission but no evidence of ketoacidosis. 4. Gastroparesis secondary to poorly controlled blood sugars contributing to her underlying nausea. 5. Elevated liver functions initially on admission tenderness elevated ALT and continued alkaline phosphatase elevation, probably secondary to excessive acetaminophen usage from [place] and dehydration showing improvement with fluids. 6. Electrolyte imbalance including a persistent hypomagnesemia showing some slight improvement with IV replacement felt to be secondary to excessive emesis. 7. Headache with a history of chronic migraines likely exacerbated from underlying dehydration and persistent nausea and vomiting improving with fluids, Toradol and morphine. 8. Bilateral peripheral neuropathy of upper extremities with history of bilateral carpal tunnel syndrome and a cervical radiculopathy as noted on recent MRI especially involving C6 through C8. 9. Constipation, moderate, secondary to chronic pain management with [place]. 10. Polypharmacy with multiple medications for fibromyalgia, chronic pain, contributing to some of her underlying conditions such as the chronic constipation liver functions. PLAN: Today, we will go ahead and advance her diets to clear liquid as tolerated. She will be started back on her p.o. medication. As soon as she does so without any problems we will once again resume her home medication and transition her from morphine to oral pain management with [place]. In regards to her constipation, we will give her 45 mg of milk of magnesia, close monitoring and consideration for additional stimulant laxatives and possible enemas depending on response to the milk of magnesia. I changed her Accu-Chek to a.c. and h.s. and her diet from n.p.o. to liquid. We will continue to monitor her blood sugars closely and as she starts increasing her oral intake, we will titrate her off IV fluids. Until discharge, we will continue to monitor her closely and treat appropriately #[id number] [facility]
[2017-09-16] MEDS: ZOLPIDEM TARTRATE 5 MG TAB PO SCH (20:44)
[2017-09-16] MEDS: ESCITALOPRAM 10 MG TAB PO SCH (20:44)
[2017-09-17] MEDS ORDERED: POTASSIUM CHLORIDE 20mEq 10ML VIAL ONE (04:28)
[2017-09-17] MEDS ORDERED: SODIUM CHLORIDE 0.45% 1000ML 1,000 ML IVS ONE (04:28)
[2017-09-17] MEDS: POTASSIUM CHLORIDE INJ 20 MEQ 20 MEQ in SODIUM CHLORIDE 0.45% 1000ML 1,000 ML IVS SCH ×2 (04:31→04:43)
[2017-09-17] MEDS: MORPHINE SULFATE INJ 10 MG/ML VIAL IV PRN (05:28)
[2017-09-17] MEDS: SODIUM CHLORIDE 0.9% (FLUSH) 10 ML SYG IV PRN ×2 (05:28→05:59)
[2017-09-17 05:45] VITALS: TEMP 97.5
[2017-09-17] MEDS ORDERED: PROMETHAZINE HCL INJ 25 MG/ML VIAL ONE (05:53)
[2017-09-17] MEDS ORDERED: SODIUM CHLORIDE 0.9% 50ML 50 ML ONE (05:54)
[2017-09-17] MEDS: PROMETHAZINE HCL INJ 25 MG in SODIUM CHLORIDE 0.9% 50ML 50 ML IVPB PRN (05:59)
[2017-09-17] MEDS: INSULIN LISPRO 100 UNITS/ML PEN SUBCU SCH ×2 (07:11→11:54)
--- NOTE | 2017-09-17 07:13 | RAD ---
CLINICAL HISTORY:abdominal pain. :1975. Sex:Female. TECHNIQUE: Supine and upright views of the abdomen. There is no intestinal dilatation. Cholecystectomy clips are noted. There is no mass. There is no free air. There is no opaque calculus. Skeletal structures are unremarkable. The visible lung bases are clear IMPRESSION: 1. No acute radiographic findings.. Electronically signed by: Denzel Joyner MD 09/17/2017 7:12 AM [facility] Workstation: [id number]
[2017-09-17] MEDS ORDERED: HYDROcodone 10MG/APAP 325MG 1 EA TAB PO PRN (07:37)
[2017-09-17] MEDS ORDERED: METOCLOPRAMIDE HCL 5 MG TAB PO PRN (07:39)
[2017-09-17] MEDS ORDERED: PROMETHAZINE HCL 25 MG TAB PO PRN (07:39)
[2017-09-17] MEDS ORDERED: MAGNESIUM SULFATE PREMIX 2GM 2 GM in PREMIX BAG 1 BAG IVPB ONE (07:41)
[2017-09-17] MEDS ORDERED: MAGNESIUM SULFATE PREMIX 2GM 50 ML IVPB ONE (08:00)
[2017-09-17] MEDS ORDERED: SODIUM CHLORIDE 0.9% (FLUSH) 10 ML SYG IV SCH (09:00)
[2017-09-17] MEDS ORDERED: MAGNESIUM HYDROXIDE 30 ML UD PO SCH (09:00)
[2017-09-17] MEDS: HYDROcodone 10MG/APAP 325MG 1 EA TAB PO SCH ×2 (09:42→13:40)
[2017-09-17] MEDS: diazePAM 5 MG TAB PO SCH (09:42)
[2017-09-17] MEDS: PREGABALIN 100 MG CAP PO SCH (09:42)
[2017-09-17] MEDS: tiZANidine 4 MG TAB PO SCH (09:43)
[2017-09-17] MEDS: ENOXAPARIN SODIUM 40 MG/0.4 ML SYG SUBCU SCH ×2 (09:43→10:47)
[2017-09-17] MEDS: POLYETHYLENE GLYCOL 3350 17 GM PCKT PO SCH (09:43)
[2017-09-17] MEDS: SENNA/DOCUSATE TAB 1 EA TAB PO SCH (09:43)
[2017-09-17] MEDS: PANTOPRAZOLE SODIUM IV 40 MG VIAL IV SCH (11:58)
[2017-09-17] MEDS: NICOTINE PATCH 14 MG TD SCH (11:58)
[2017-09-17] MEDS ORDERED: INSULIN DETEMIR 100 UNITS/ML PEN SUBCU SCH ×2 (12:00→21:00)
[2017-09-17 13:28] VITALS: BP 119/81; O2SAT 99
--- NOTE | 2017-09-18 10:16 | DS ---
SUPERVISING PHYSICIAN: Aristides Alvarado MD DISCHARGE DIAGNOSIS: 1. Mild pancreatitis, resolved with IV fluids, secondary to dehydration. 2. Moderate dehydration contributing to early pancreatitis with some hyperglycemia, no evidence of diabetic ketoacidosis with the patient showing improvement with Phenergan and fluids. 3. Type 1 diabetes mellitus on insulin therapy, poorly controlled with hemoglobin A1c over 9% with no evidence of ketoacidosis through admission, improved with IV fluids. 4. Gastroparesis secondary to poorly controlled blood sugars contributing to her underlying nausea, improved with resolution fo constipation and Reglan p.r.n. 5. Elevated liver enzymes with elevated ALT and alkaline phosphatase, felt to be secondary to excessive acetaminophen usage from [place] and dehydration, improved with fluids. 6. Electrolyte imbalance with a persistent hypomagnesemia, showing improvement with IV fluids, but persistent and felt to be secondary to recent excessive emesis. 7. Headache with a history of chronic migraines, exacerbated from underlying dehydration and persistent nausea and vomiting, resolved with fluids, Toradol and morphine. 8. Bilateral peripheral neuropathy of upper extremities with history of bilateral carpal tunnel syndrome and a cervical radiculopathy as noted on recent MRI involving C6 through C8 with chronic sensory changes, followed by Dr. Lin. 9. Constipation, secondary to slow transit from narcotic usage for pain management with [place], improved with laxatives and stool softeners. 10. Polypharmacy with multiple medications for fibromyalgia, chronic pain, contributing to some of her underlying conditions such as the chronic constipation, liver enzyme elevation and nausea and vomiting. REASON FOR HOSPITALIZATION: Ms. Perkins is a 42-year-old female patient with a long history of diabetes, type 1, with poor control. She has had multiple admissions through the Emergency Room as well as to the hospital for uncontrolled blood sugars as well as some episodes of diabetic ketoacidosis. On date of admission, 09/15/17, she presented to the Emergency Room with complaints of vomiting and headache. She had been seen in the Emergency Room the previous night before and was given a pain shot and some IV fluids. She noted that she went home and had some recurrence of her vomiting and started having some dull abdominal pains as well as a sharp frontal headache. She then presented to the Emergency Room. Laboratory studies in the Emergency Room showed she white count within normal limits at 5,700. Chemistries showed an elevated blood sugar of 388, normal CO2 and normal anion gap. Her lipase was slightly elevated at 129. Given the abdominal pain, a CT of the abdomen and pelvis was completed without contrast and per radiology interpretation there was no acute inflammatory or obstructive abnormalities noted. There was mention of a geographic region of hypodensity in the left hepatic lobe that had not significantly changed from previous exams on 01/06/17 which could represent focal fatty infiltration. Given the abdominal pain and along with the elevated lipase, Dr. Galo, Emergency Room physician, requested the patient be admitted to the hospital for acute pancreatitis with complications from diabetes with concerns for possible developing diabetic ketoacidosis, persistent nausea and vomiting and dehydration. The patient was admitted to the Medical/Surgical Floor in stable condition for further treatment and evaluation. LABORATORY: White count on admission was 5,700, hemoglobin 13.1, hematocrit 39.6, platelet count 302 with differential within normal limits with no left shift. Coagulation studies showed normal PT, PT-T. Chemistries initially on admission showed sodium 133, glucose 388 with potassium 4.7, creatinine 0.48, magnesium low at 1.7, liver functions were within normal limits in regards to bilirubin. ALT slightly elevated at 75, alkaline phosphatase at 199. Troponin was less than 0.02. Initial lipase was elevated after initiation of treatment. Her electrolytes had normalized, lipase had normalized. Liver functions were returning to normal limits. Blood sugars had been fairly well controlled as well as she was given magnesium and this improved to 1.9. Additional chemistries were completed throughout the hospitalization. She did show a rebound in her blood sugars up to 516 at which time sodium was 133, corrected to 139 for hypernatremia with potassium 5.3, carbon dioxide 19, but normal anion gap with small amount of ketones. She was given additional fluid boluses IV, subcutaneous insulin as well as started on Levemir and showed good response. However, she was bottoming her sugars out as she was not having adequate p.o. intake initially with glucose on 09/16/17 being 45 at breakfast. She was changed to a clear liquid diet. This was advanced as tolerated and prior to discharge, she was able to tolerate a full 1800 calorie ADA diet with no complications, nausea or vomiting. Her laboratory studies remained within normal limits. Magnesium was persistently low, but she got replacement by IV several times and additional 2 grams before discharge. Her liver functions did normal except for alkaline phosphatase was still slightly elevated at 145. Urinalysis showed greater than 1000 glucose with trace amount of blood, otherwise was within normal limits. She did have one ketone examination after her blood sugar hit 500 and showed this to be small. MICROBIOLOGY: No specimens were submitted. RADIOLOGY: She had a chest x-ray and abdominopelvic CT prior to admission. The chest x-ray per radiologic interpretation of a single view chest showed no acute cardiopulmonary abnormalities identified. This was followed up with abdominopelvic CT which showed no acute inflammatory or obstructive abnormalities. There was a geographical region of a hypodensity in the left hepatic lobe, not significantly changed, which could represent focal fatty infiltration. Please correlate with nonemergent [address] scan recommended to further characterize. Please see that final report for full details. She had multiple abdominal x-rays. Initial abdominal x-ray on showed she had a large amount of colonic stool and gas, but there was no small bowel obstruction or other acute intraabdominal abnormalities. After being given magnesium, Milk of Magnesia, Senokot and stool softeners, she had several bowel movements and on the morning prior to discharge, a repeat abdominal x-ray, two view, showed per radiologic interpretation again no acute radiographic findings. HOSPITAL COURSE: She was again able to advance her diet and was no longer having any significant pain. She was transitioned from morphine to p.o. [place]. On the morning discharge, she was felt to be clinically well enough to be continued with outpatient treatment plan. PLAN: Ms. ePrkins as admitted as noted above for concerns for pancreatitis and nausea and vomiting. She was found to be clinically stable and resolved and was tolerated a diet well. Therefore, she was discharged to have close clinical followup with her machine veneer repairer, Katharina Kim MD, in [place]. She was to call Dr. Lin to schedule a followup with him within the next 7 to 10 days. She was encouraged to continue with MiraLAX to prevent further complications from constipation as well as utilize Milk of Magnesia periodically as needed to relieve constipation symptoms. She was encouraged to push fluids to prevent dehydration and was to take her medications as directed. She was told to return to the hospital should she have any concerning symptoms. DIET AT DISCHARGE: Diabetic diet, 1800 calorie ADA diet, as tolerated. ACTIVITY: Increase as tolerated. NEW MEDICATIONS: 1. MiraLAX 17 grams daily. No other prescriptions were provided. She was to resume her home medications as previous. CONDITION AT DISCHARGE: Stable and improved. #[id number] MTDD
== END 2017-09-17 14:28 | disposition home or self-care (01) | DRG 637 ==
LOC: ER 23:39 → MS 09-15 02:11 → OBSVTOIN 09-15 02:11
PROVIDERS: ADMIT Nurse Practitioner Family; ATTEND Nurse Practitioner Family
DX: E10.65 Type 1 diabetes mellitus with hyperglycemia (principal); K85.90 Acute pancreatitis without necrosis or infection, unspecified; E86.0 Dehydration; E10.43 Type 1 diabetes mellitus with diabetic autonomic (poly)neuropathy; K31.84 Gastroparesis; K59.00 Constipation, unspecified; R74.8 Abnormal levels of other serum enzymes; T39.1X5A Adverse effect of 4-Aminophenol derivatives, initial encounter; E83.42 Hypomagnesemia; R51 Headache; M54.12 Radiculopathy, cervical region; G56.03 Carpal tunnel syndrome, bilateral upper limbs; K59.03 Drug induced constipation; T40.2X5A Adverse effect of other opioids, initial encounter; G89.29 Other chronic pain; M79.7 Fibromyalgia; Y92.230 Patient room in hospital as the place of occurrence of the external cause; E10.649 Type 1 diabetes mellitus with hypoglycemia without coma; R93.3 Abnormal findings on diagnostic imaging of other parts of digestive tract; J44.9 Chronic obstructive pulmonary disease, unspecified; F17.210 Nicotine dependence, cigarettes, uncomplicated; F95.8 Other tic disorders; K21.9 Gastro-esophageal reflux disease without esophagitis; H53.8 Other visual disturbances; L30.9 Dermatitis, unspecified; Z96.89 Presence of other specified functional implants; Y92.9 Unspecified place or not applicable; Z98.890 Other specified postprocedural states; Z79.899 Other long term (current) drug therapy; Z91.013 Allergy to seafood; Z91.010 Allergy to peanuts

== ENCOUNTER → 2017-11-01 | Outpatient (CLI) | payer MEDICARE, MEDICAID ==
--- NOTE | 2017-11-02 08:55 | RAD ---
EXAM DESCRIPTION: Hand,Left 3 Views CLINICAL HISTORY: HAND PAIN COMPARISON: None Available. TECHNIQUE: AP, LATERAL, AND OBLIQUE FINDINGS: Three-view left hand shows no fracture or dislocation. There is no bone lesion. There are no significant arthritic changes. There is no radiopaque foreign body. IMPRESSION: Negative for fracture or dislocation. Electronically signed by: Tera Luis MD 11/02/2017 8:54 AM CDT
--- NOTE | 2017-11-02 08:56 | RAD ---
EXAM DESCRIPTION: Hand,Right 3 Views CLINICAL HISTORY: HAND PAIN COMPARISON: None Available. TECHNIQUE: AP, LATERAL, AND OBLIQUE FINDINGS: Three-view tab hand shows no fracture or dislocation. There is no bone lesion. There are no significant arthritic changes. There is no radiopaque foreign body. IMPRESSION: Negative for fracture or dislocation. Electronically signed by: Tera Luis MD 11/02/2017 8:54 AM CDT
== END ==
LOC: RAD 08:00
PROVIDERS: ATTEND Orthopaedic Surgery
DX: M79.641 Pain in right hand (principal); M79.642 Pain in left hand; Z01.818 Encounter for other preprocedural examination

== ENCOUNTER 2017-11-06 22:38 | Inpatient (IN) | payer MEDICARE, MEDICAID ==
[2017-11-06] MEDS ORDERED: ACETAMINOPHEN IV 1000MG 1,000 MG in PREMIX BOTTLE 1 BOTTLE IVPB ONE (23:06)
[2017-11-06] MEDS ORDERED: ONDANSETRON INJ 4 MG/2 ML VIAL IV ONE (23:06)
[2017-11-06] MEDS ORDERED: SODIUM CHLORIDE 0.9% 1000ML 1,000 ML IVS ONE (23:06)
--- NOTE | 2017-11-06 23:11 | ED.PDOC ---
History of Present Illness - General Chief Complaint: General Stated Complaint: N/V/D,swollen stomach, fell R hip pain, numb toes, Time Seen by Provider: 11/06/17 23:04 Source: patient Exam Limitations: no limitations - History of Present Illness Initial Comments: patient is a 42-year-old with known type 1 diabetes who comes in with 2-3 day history of nausea, vomiting, abdominal pain, and diarrhea. Patient states the first couple of days it was not this severe but today she has been unable to keep anything down. She is complaining of severe abdominal pain with abdominal distention and more than 10 bowel movements a day with some light traces of bright red blood in the diarrhea. Patient states some of her emesis has been blood streaked as well. Patient states she feels short of breath from the pain and discomfort and is breathing more quickly than she is used to. Although she had a low blood sugar early this morning her last blood sugar check prior to coming to the emergency room was greater than 300. Patient has no loss of consciousness, chest pain, wheezing, or cough. She denies any fever, chills, or dysuria. Patient states the pain is diffuse abdominal discomfort with tightness and no radiation. patient has a past medical history of diabetes mellitus type 1 and asthma. Patient has had her gallbladder removed, partial hysterectomy, appendectomy, and knee surgeries. Patient does smoke half a pack a day but does not drink or take illicit drugs. Timing/Duration: other - 2-3 days, worse today Severity: severe Improving Factors: nothing Associated Symptoms: nausea/vomiting Allergies/Adverse Reactions: Allergies Fish Allergy Allergy (Verified 09/14/17 23:54) peanut Allergy (Severe, Uncoded 09/09/17 15:45) Home Medications: Ambulatory Orders Zolpidem Tartrate [Ambien] 10 mg PO BEDTIME 04/09/16 Promethazine Tab [Phenergan Tablet] 25 mg PO Q6H PRN #30 tab 08/20/16 Tizanidine HCl [Zanaflex] 4 mg PO TID 12/18/16 Insulin Detemir [Levemir Pen] 32 units SUBCU DAILY 01/07/17 Insulin Aspart [Novolog] 100 unit SC ACBK 05/15/17 Insulin Detemir [Levemir Pen] 8 unit SUBCU BEDTIME #1 pen 05/24/17 HYDROcodone 10MG/APAP 325MG [Darrow 10/325] 1 ea PO QID 08/12/17 Lexapro 10 mg PO BEDTIME 08/12/17 Lyrica 300 mg PO BID 08/12/17 Diazepam [Valium] 5 mg PO TID 09/15/17 Metoclopramide HCl [Reglan] 10 mg PO DAILY PRN 09/15/17 Polyethylene Glycol 3350 [Miralax] 17 gm PO DAILY pckt 09/17/17 Acetamin W/Cod #3 Tab [Tylenol w/CODEINE #3] 1 ea PO Q6HRS PRN #10 tab 11/06/17 Review of Systems - Review of Systems Constitutional: States: weakness. Denies: chills, diaphoresis, fever EENTM: States: no symptoms reported. Denies: eye pain, double vision, ear pain , throat pain, mouth swelling Respiratory: States: short of breath. Denies: cough, wheezing Cardiology: Denies: chest pain, edema, palpitations, syncope Gastrointestinal/Abdominal: States: abdominal pain, diarrhea, nausea, vomiting Genitourinary: States: no symptoms reported. Denies: dysuria Musculoskeletal: States: other - bilateral lower extremity weakness and numbness , fell today but ambulated after, soreness to the R hip Skin: States: no symptoms reported Neurological: States: numbness, paresthesia, weakness Endocrine: States: increased thirst Past Medical History (General) - Patient Medical History Hx Seizures: Yes Hx Stroke: No Hx Dementia: No Hx Asthma: Yes Hx of COPD: No Hx Cardiac Disorders: No Hx Congestive Heart Failure: No Hx Pacemaker: No Hx Hypertension: No Hx Thyroid Disease: No Hx Diabetes: Yes Hx Gastroesophageal Reflux: Yes Hx Renal Disease: No Hx Cancer: No Hx of HIV: No Hx Hepatitis C: No Hx MRSA: No MRSA Source:: Blood Surgical History: appendectomy, cholecystectomy, Hysterectomy - Vaccination History Hx Tetanus, Diphtheria Vaccination: No Hx Influenza Vaccination: No - allergy Hx Pneumococcal Vaccination: No - Social History Hx Tobacco Use: Yes Hx Chewing Tobacco Use: No Hx Alcohol Use: Yes Hx Substance Use: Yes - remote history Hx Substance Use Treatment: No Hx Depression: No Hx Physical Abuse: No Hx Emotional Abuse: No Hx Suspected Abuse: No - Female History Hx Last Menstrual Period: 11/05/11 Patient : No Family Medical History - Family History Mother Family History: No Known Name: April Age (years): 67 Living Status: Still Living Hx Family Asthma: No Hx Family Congestive Heart Failure: No Hx Family Hypertension: Yes - dad Hx Family Stroke: No Hx Cardiac Disease: No Hx Family Diabetes: No Hx Family Cancer: No Hx Family;Other: Thyroid -mom;HTN-dad Father Family History: No Known Name: Marlon Age (years): 65 Living Status: Still Living Hx Family Asthma: - Sister Hx Family Congestive Heart Failure: No Hx Family Hypertension: Yes Hx Family Stroke: No Hx Cardiac Disease: - Grandfather. Hx Family Diabetes: No - Pt Age of Onset (years of age): 32 Hx Family Cancer: Yes - Grandmother Lymphoma Physical Exam - Physical Exam General Appearance: Anxious, Other - tachypnea present Eye Exam: bilateral normal Ears, Nose, Throat: hearing grossly normal, normal pharynx, other - dry mucous membranes Neck: non-tender, full range of motion, supple Respiratory: wheezing - occasional wheezing throughout Cardiovascular/Chest: no edema, no gallop, no JVD, no murmur, tachycardia, other - regular rate Peripheral Pulses: radial,right: 2+ Gastrointestinal/Abdominal: no organomegaly, abnormal bowel sounds, distended, other - tenderness diffusely with hypoactive BS no rebound Back Exam: normal inspection Extremity: normal range of motion Neurologic: alert, oriented x 3 Skin Exam: warm/dry, other - poor turgor Progress - Progress Progress: 11/06/17 23:58 Patient Name: BRADLEY DAVIS Gender: Female Date of : 1975 Referring Physician: ADELAIDA CUMMINS Organization: [facility] Accession Number: [id number] Requested Date: November 06, 2017 23:06 Report Status: Final Requested Procedure: 1 Procedure Description: Abdomen Flat Upright Modality: CR Findings Reporting MD: Luis Eduardo Go Fellow MD: Not available Dictation Time: Cherry Sorter: Not available Social Welfare Clerk Date: EXAM: TWO VIEW SINGLE and UPRIGHT ABDOMEN RADIOGRAPHS CLINICAL INDICATION: Abdominal pain and distention. COMPARISON: Yesterday's abdomen radiographs. FINDINGS: Improving gas-filled loops of small bowel and colon. Moderate amount of stool in the right colon persists. Bowel gas extends into the rectum. Moderately dilated gas-filled stomach is unchanged. No mechanical bowel obstruction, free peritoneal gas, biliary gas or portal venous gas. Sequela of remote cholecystectomy. No abnormal abdominal or pelvic calcifications. IMPRESSION: Improving abdomen radiographs. If clinical concern persists, post contrast abdomen and pelvic CT would prove useful for further evaluation as clinically warranted - Results/Orders Results/Orders: 11/06/17 23:06 URINE DRUG SCREEN, 7 ASSAY Stat Sodium Chloride 0.9% 1000ML [Ns 1000 ml] 1,000 ml IVS ONCE Arterial Blood Gas Stat URINALYSIS Stat 11/06/17 23:15 ACETEST (KETONES) URINE Stat ACETEST(KETONES),SERUM/PLASMA Stat COMPLETE METABOLIC PROFILE Stat EKG STAT Laboratory Results WBC 6.5 K/mm3 (4.8-10.8) 11/06/17 23:15 RBC 4.89 M/mm3 (4.20-5.40) 11/06/17 23:15 Hgb 13.1 gm/dL (12.0-16.0) 11/06/17 23:15 Hct 39.8 % (36.0-47.0) 11/06/17 23:15 MCV 81.5 fl (81.0-99.0) 11/06/17 23:15 MCH 26.8 pg (27.0-31.0) L 11/06/17 23:15 MCHC 33.0 g/dL (33.0-37.0) 11/06/17 23:15 RDW 14.4 % (11.5-14.5) 11/06/17 23:15 Plt Count 252 K/mm3 (130-400) 11/06/17 23:15 MPV 9.2 fl (7.40-10.4) 11/06/17 23:15 Absolute Neuts (auto) 3.10 K/uL (1.8-6.8) 11/06/17 23:15 Absolute Lymphs (auto) 2.60 K/uL (1.0-3.4) 11/06/17 23:15 Absolute Monos (auto) 0.50 K/uL (0.2-0.8) 11/06/17 23:15 Absolute Eos (auto) 0.20 K/uL (0.0-0.4) 11/06/17 23:15 Absolute Basos (auto) 0.00 K/uL (0.0-0.1) 11/06/17 23:15 Neutrophils % 47.7 % (42.0-78.0) 11/06/17 23:15 Lymphocytes % 40.7 % (20.0-50.0) 11/06/17 23:15 Monocytes % 7.7 % (2.0-9.0) 11/06/17 23:15 Eosinophils % 3.4 % (1.0-5.0) 11/06/17 23:15 Basophils % 0.5 % (0.0-2.0) 11/06/17 23:15 Sodium 136 mmol/L (135-145) 11/06/17 23:15 Potassium 3.8 mmol/L (3.6-5.0) 11/06/17 23:15 Chloride 105 mmol/L (101-111) 11/06/17 23:15 Carbon Dioxide 21 mmol/L (21-31) 11/06/17 23:15 Anion Gap 13.8 (12-18) 11/06/17 23:15 BUN 23 mg/dL (7-18) H 11/06/17 23:15 Creatinine 0.78 mg/dL (0.6-1.3) 11/06/17 23:15 BUN/Creatinine Ratio 29.5 (10-20) H 11/06/17 23:15 Random Glucose 471 mg/dL (70-105) H* 11/06/17 23:15 Serum Osmolality 296.0 mOsm/L (275-295) H 11/06/17 23:15 Calcium 8.7 mg/dL (8.4-10.2) 11/06/17 23:15 Total Bilirubin 0.6 mg/dL (0.2-1.0) 11/06/17 23:15 AST 40 IU/L (10-42) 11/06/17 23:15 ALT 22 IU/L (10-60) 11/06/17 23:15 Alkaline Phosphatase 111 IU/L (42-121) 11/06/17 23:15 Serum Total Protein 6.8 gm/dL (6.4-8.2) 11/06/17 23:15 Albumin 3.6 g/dl (3.2-5.5) 11/06/17 23:15 Globulin 3.2 gm/dL (2.3-3.5) 11/06/17 23:15 Albumin/Globulin Ratio 1.1 (1.1-1.9) 11/06/17 23:15 Serum Ketones Negative 11/06/17 23:15 ABG ph 7.30 pCO2 41 pO2 38 HCO3 19.5 Departure - Departure Clinical Impression: Uncontrolled diabetes mellitus Disposition: Admit Patient Condition: Fair Departure Forms: ED Discharge - Pt. Copy, Patient Portal Self Enrollment Referrals: Joby Rangel MD [Primary Care Provider] - 1-2 Weeks Home Medications: Ambulatory Orders Zolpidem Tartrate [Ambien] 10 mg PO BEDTIME 04/09/16 Promethazine Tab [Phenergan Tablet] 25 mg PO Q6H PRN #30 tab 08/20/16 Tizanidine HCl [Zanaflex] 4 mg PO TID 12/18/16 Insulin Detemir [Levemir Pen] 32 units SUBCU DAILY 01/07/17 Insulin Aspart [Novolog] 100 unit SC ACBK 05/15/17 Insulin Detemir [Levemir Pen] 8 unit SUBCU BEDTIME #1 pen 05/24/17 HYDROcodone 10MG/APAP 325MG [Darrow 10/325] 1 ea PO QID 08/12/17 Lexapro 10 mg PO BEDTIME 08/12/17 Lyrica 300 mg PO BID 08/12/17 Diazepam [Valium] 5 mg PO TID 09/15/17 Metoclopramide HCl [Reglan] 10 mg PO DAILY PRN 09/15/17 Polyethylene Glycol 3350 [Miralax] 17 gm PO DAILY pckt 09/17/17 Acetamin W/Cod #3 Tab [Tylenol w/CODEINE #3] 1 ea PO Q6HRS PRN #10 tab 11/06/17 Comments: Spoke with Dr. Covarrubias and discussed acidosis and dehydration with her. She accepts for admission for IVF and IV insulin. Will admit to the floor as she is high risk for DKA and already acidotic and dehydrated. 10 u IV Humulin R given here along with IVF, IV Tylenol for pain, IV reglan, and IV Zofran.
--- NOTE | 2017-11-06 23:49 | RAD ---
EXAM: TWO VIEW SINGLE and UPRIGHT ABDOMEN RADIOGRAPHS CLINICAL INDICATION: Abdominal pain and distention. COMPARISON: Yesterday's abdomen radiographs. FINDINGS: Improving gas-filled loops of small bowel and colon. Moderate amount of stool in the right colon persists. Bowel gas extends into the rectum. Moderately dilated gas-filled stomach is unchanged. No mechanical bowel obstruction, free peritoneal gas, biliary gas or portal venous gas. Sequela of remote cholecystectomy. No abnormal abdominal or pelvic calcifications. IMPRESSION: Improving abdomen radiographs. If clinical concern persists, post contrast abdomen and pelvic CT would prove useful for further evaluation as clinically warranted. Electronically signed by: Luis Eduardo Go MD 11/06/2017 11:48 PM CDT
[2017-11-06] MEDS ORDERED: ACETAMINOPHEN IV 1000MG 100 ML ONE (23:50)
[2017-11-06] MEDS ORDERED: ALPRAZolam 0.25 MG TAB PO ONE (23:51)
[2017-11-06] MEDS ORDERED: ALPRAZolam 0.25 MG TAB ONE (23:53)
[2017-11-06] MEDS ORDERED: INSULIN, REG.(HUMAN) 100 U/ML VIAL IV ONE (23:57)
[2017-11-07] MEDS ORDERED: METOCLOPRAMIDE HCL INJ 10 MG/2 ML VIAL IV ONE (00:07)
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
[2017-11-07] MEDS ORDERED: ALBUTEROL SULFATE 2.5 MG/3 ML VIAL NEB PRN (01:17)
[2017-11-07] MEDS ORDERED: SODIUM CHLORIDE 0.9% (FLUSH) 10 ML SYG IV PRN ×2 (01:17→01:44)
[2017-11-07] MEDS ORDERED: INSULIN, REG.(HUMAN) 250 UNITS in SODIUM CHL 0.9% 250ML (AVIVA) 247.5 ML IVPB SCH ×2 (01:30)
[2017-11-07] MEDS ORDERED: IV SET AND CAP CHANGE INJ INJ SCH ×2 (01:30→02:00)
[2017-11-07] MEDS ORDERED: GLUCAGON INJ 1 MG VIAL SUBCU PRN (01:52)
[2017-11-07] MEDS ORDERED: DEXTROSE 50% 25 GM/50 ML SYG IV PRN (01:52)
[2017-11-07] MEDS ORDERED: INSULIN LISPRO 100 UNITS/ML PEN SUBCU ONE (01:56)
[2017-11-07] MEDS ORDERED: INSULIN LISPRO 100 UNITS/ML PEN SUBCU SCH ×2 (02:00→06:00)
[2017-11-07] MEDS ORDERED: KCL 20MEQ/0.45% NS 1,000 ML IVS PRN (02:04)
[2017-11-07] MEDS ORDERED: KCL 20MEQ/D5 1/2NS 1,000 ML IVS PRN (03:52)
[2017-11-07] MEDS ORDERED: PANTOPRAZOLE SODIUM IV 40 MG VIAL IV SCH (05:00)
[2017-11-07] MEDS: INSULIN LISPRO 100 UNITS/ML PEN SUBCU SCH ×5 (06:15→21:03)
[2017-11-07] MEDS: ALBUTEROL SULFATE 2.5 MG/3 ML VIAL NEB SCH ×4 (07:20→21:27)
[2017-11-07] MEDS ORDERED: HALOPERIDOL LACTATE INJ 5 MG/ML VIAL IM ONE ×2 (08:11→08:14)
[2017-11-07] MEDS ORDERED: HYDROmorphone HCL INJ 2 MG/ML VIAL ONE (10:00)
[2017-11-07] MEDS: HYDROmorphone HCL INJ 2 MG/ML VIAL IV PRN ×4 (10:09→22:49)
[2017-11-07] MEDS ORDERED: MAGNESIUM SULFATE PREMIX 2GM 2 GM in PREMIX BAG 1 BAG IVPB ONE (10:20)
[2017-11-07] MEDS ORDERED: MAGNESIUM SULFATE PREMIX 2GM 50 ML IVPB ONE (10:35)
[2017-11-07] MEDS ORDERED: ENOXAPARIN SODIUM 40 MG/0.4 ML SYG SUBCU SCH (14:00)
[2017-11-07] MEDS: HALOPERIDOL LACTATE INJ 5 MG/ML VIAL IM PRN (20:33)
[2017-11-07] MEDS: SODIUM CHLORIDE 0.9% (FLUSH) 10 ML SYG IV SCH (20:43)
[2017-11-07] MEDS ORDERED: METOCLOPRAMIDE HCL 5 MG TAB PO PRN (22:02)
[2017-11-07] MEDS ORDERED: PROMETHAZINE HCL 25 MG TAB PO PRN (22:02)
[2017-11-07] MEDS ORDERED: NON-FORMULARY MEDICATION 1 EA MIS (Tizanidine Hcl [Zanaflex] 4 MG) PO SCH (22:15)
[2017-11-07] MEDS ORDERED: NON-FORMULARY MEDICATION 1 EA MIS (Pregabalin [Lyrica] 300 MG) PO SCH (22:15)
[2017-11-07] MEDS ORDERED: tiZANidine 4 MG TAB ONE (22:40)
[2017-11-07] MEDS ORDERED: ZOLPIDEM TARTRATE 10 MG TAB ONE (22:41)
[2017-11-07] MEDS ORDERED: PREGABALIN 100 MG CAP ONE (22:41)
[2017-11-07] MEDS: ZOLPIDEM TARTRATE 5 MG TAB PO PRN (22:52)
[2017-11-08] MEDS: HYDROmorphone HCL INJ 2 MG/ML VIAL IV PRN ×2 (04:14→08:45)
[2017-11-08] MEDS: PANTOPRAZOLE SODIUM TAB 40 MG PO SCH (06:06)
[2017-11-08] MEDS ORDERED: PANTOPRAZOLE SODIUM IV 40 MG VIAL IV SCH (06:30)
[2017-11-08] MEDS ORDERED: INSULIN LISPRO 100 UNITS/ML PEN SUBCU ONE (06:52)
--- NOTE | 2017-11-08 06:54 | RAD ---
EXAM: 2 VIEWS RIGHT HIP and AP PELVIS RADIOGRAPHS CLINICAL INDICATION: Pain post trauma. COMPARISON: None. FINDINGS: No fractures, dislocations or radiographic evidence of right hip avascular necrosis. The sacroiliac joints and pubic symphysis are intact. No lytic or blastic bone lesions. IMPRESSION: No fractures or dislocations. Electronically signed by: Luis Eduardo Go MD 11/08/2017 6:53 AM CDT
[2017-11-08] MEDS: INSULIN LISPRO 100 UNITS/ML PEN SUBCU SCH ×4 (08:15→21:42)
[2017-11-08] MEDS: INSULIN DETEMIR 100 UNITS/ML PEN SUBCU SCH (08:39)
[2017-11-08] MEDS: SODIUM CHLORIDE 0.9% (FLUSH) 10 ML SYG IV SCH ×2 (08:46→21:39)
[2017-11-08] MEDS: ENOXAPARIN SODIUM 40 MG/0.4 ML SYG SUBCU SCH (08:47)
[2017-11-08] MEDS: tiZANidine 4 MG TAB PO SCH ×3 (08:48→21:42)
[2017-11-08] MEDS: diazePAM 5 MG TAB PO SCH ×3 (08:50→21:39)
[2017-11-08] MEDS ORDERED: PREGABALIN 100 MG CAP PO SCH (09:00)
[2017-11-08] MEDS ORDERED: SODIUM CHLORIDE 0.9% 500ML 500 ML IVS ONE (09:09)
[2017-11-08] MEDS: HYDROcodone 10MG/APAP 325MG 1 EA TAB PO SCH ×4 (11:34→21:41)
[2017-11-08] MEDS: PREGABALIN 100 MG CAP PO SCH ×3 (13:04→21:40)
[2017-11-08] MEDS: HALOPERIDOL LACTATE INJ 5 MG/ML VIAL IM PRN (13:04)
--- NOTE | 2017-11-08 13:49 | PN ---
SUPERVISING PHYSICIAN: Can Macdonald MD DATE: 11/08/17 SUBJECTIVE: The patient is lying in bed. She has no complaints of nausea, vomiting, diarrhea or constipation. She does complain that her stomach continues to hurt but is improved since yesterday. She does feel like her neck is spasming and we discussed what medication she can take for that. Otherwise, she does feel better and she has no complaints of chest pain or shortness of breath. OBJECTIVE: VITAL SIGNS: Afebrile. Heart rate 83. Blood pressure 97/70. Respiratory rate 18. O2 saturation 95% on room air. RESPIRATORY: Essentially clear to auscultation bilaterally. CARDIAC: Regular rate and rhythm. GASTROINTESTINAL: Abdomen is soft, nondistended, diffusely tender along the epigastric region. Bowel sounds are positive. EXTREMITIES: No cyanosis, clubbing or edema. NEUROLOGIC: Awake, alert and oriented times three. LABORATORY: WBCs 4.5, hemoglobin 11.8, hematocrit 37.3. Blood sugars have run between 87 and 531. Sodium 132, potassium slightly high at 5.1, chloride 101, carbon dioxide 21, BUN 11, creatinine 0.72, calcium 8.7, magnesium 1.8. Hip x- ray shows no fractures or dislocations. All other labs and films have been reviewed via the EMR. ASSESSMENT: 1. Hyperglycemia. 2. Non-anion gap metabolic acidosis and respiratory acidosis, improved. 3. Diabetes mellitus, type 1, with significant history of multiple hospital admissions due to diabetic ketoacidosis and poor medical compliance. 4. Dehydration with nausea, vomiting, diarrhea, now resolved. 5. Gastroparesis, continues although improved. 6. Hypomagnesemia, improved. 7. Right hip pain due to multiple falls over the last two to three days with negative hip x-ray. PLAN: We will continue present supportive care. Potassium is slightly elevated today and sodium slightly low, so I have given her a 500 mL bolus of normal saline. Her Dilaudid has been discontinued and her routine hydrocodone has been restarted. Blood sugars have stabilized at least from the point that she no longer has had any hypoglycemia. Her blood sugar was quite elevated this morning, but her long-acting insulin had not been started until this morning. We will watch her blood sugars over the next 24 hours and make sure they stabilize out after resuming her Levemir insulin dosing. I have increased her Lyrica to 3 times daily due to her neuropathy and neck pain. I will recheck her lab in the morning. I believe she can be discharged sometime tomorrow. Dr. Macdonald is the collaborating physician and available for consultation. #[id number] [facility]
[2017-11-08] MEDS ORDERED: ESCITALOPRAM 10 MG TAB PO SCH (21:00)
[2017-11-08] MEDS: ZOLPIDEM TARTRATE 5 MG TAB PO PRN (21:43)
[2017-11-09] MEDS: HALOPERIDOL LACTATE INJ 5 MG/ML VIAL IM PRN (00:13)
[2017-11-09] MEDS: PANTOPRAZOLE SODIUM TAB 40 MG PO SCH (06:11)
[2017-11-09] MEDS: INSULIN LISPRO 100 UNITS/ML PEN SUBCU SCH (07:58)
[2017-11-09] MEDS: ENOXAPARIN SODIUM 40 MG/0.4 ML SYG SUBCU SCH (09:01)
[2017-11-09] MEDS: PREGABALIN 100 MG CAP PO SCH (09:01)
[2017-11-09] MEDS: HYDROcodone 10MG/APAP 325MG 1 EA TAB PO SCH (09:01)
[2017-11-09] MEDS: tiZANidine 4 MG TAB PO SCH (09:02)
[2017-11-09] MEDS: diazePAM 5 MG TAB PO SCH (09:02)
[2017-11-09] MEDS: SODIUM CHLORIDE 0.9% (FLUSH) 10 ML SYG IV SCH (09:02)
[2017-11-09] MEDS: INSULIN DETEMIR 100 UNITS/ML PEN SUBCU SCH (09:10)
[2017-11-09 10:26] VITALS: BP 109/75; TEMP 97.9; O2SAT 97
--- NOTE | 2017-11-09 12:18 | DS ---
SUPERVISING PHYSICIAN: Freddy Carpenter M.D. DISCHARGE DIAGNOSIS: 1. Hyperglycemia. 2. Non-anion gap metabolic acidosis and respiratory acidosis, improved. 3. Diabetes mellitus, type 1, with significant history of multiple hospital admissions due to diabetic ketoacidosis and poor medical compliance. 4. Dehydration with nausea, vomiting and diarrhea that has now resolved. 5. Gastroparesis that has improved. 6. Hypomagnesemia that has improved. 7. Right hip pain due to multiple falls over the last two to three days with negative hip x-ray. HISTORY OF PRESENT ILLNESS: This is a 42-year-old female who has a significant history of type 1 diabetes mellitus with poor compliance. She has been admitted to the hospital multiple times for diabetic ketoacidosis and poor medical compliance as well as gastroparesis. She presented to the Emergency Room with a two to three day history of nausea, vomiting, abdominal pain and diarrhea. During this time, she also had multiple falls. One of the falls was onto her right hip and since then, she has had significant pain in the right hip. In the Emergency Room, she had several liquid bowel movements. She also had some shortness of breath with nausea and vomiting. Her blood sugar prior to her admission was over 300. There has been no loss of consciousness. She denied chest pain, but continued with complaints of the diffuse abdominal pain. Her CBC was basically within normal limits. Sodium 136, potassium 3.8, chloride 105, carbon dioxide 21, anion gap 13.8, BUN 23, creatinine 0.78, glucose 471, serum osmolality 296. Serum ketones were negative, but her blood gas showed pH of 7.3, PCO2 of 41, PO2 of 38, bicarb 19.5. Abdominal x-ray showed improving abdomen radiographs and recommended abdominal and pelvic CT if symptoms continue. She was given some fluids in the Emergency Room as well as some IV Tylenol. She was admitted to the hospital. HOSPITAL COURSE: In the hospital, her blood sugars were treated aggressively and blood sugars were checked frequently over the next 24 hours. She was given Dilaudid and Haldol for her gastroparesis. The Haldol was very effective for her gastroparesis symptoms. Within 24 hours her IV Dilaudid was discontinued and she was restarted on her routine home medications. She did complain of some increased diabetic neuropathy, especially in her feet and her neck. Her Lyrica was increased from b.i.d. to t.i.d. Those symptoms improved as well. Her labs have stabilized. Her blood sugars have run between 87 and 374, but she is poorly compliant with her food intake. She has had no further complaints of nausea, vomiting, diarrhea or constipation and she will be discharged home today in stable condition. DISCHARGE PLAN: The patient will be discharged home in stable condition. I have written a prescription for Haldol and for Lyrica. She is to followup with Dr. Rangel within the next 1 to 2 weeks. She is to continue her diabetic diet, increase activity as tolerated. She is to return to the hospital or Dr. Rangel' s office for any further problems or complications. DISCHARGE MEDICATIONS: 1. Zolpidem. 2. Promethazine. 3. Zanaflex. 4. Levemir. 5. NovoLog. 6. Lyrica. 7. Lexapro. 8. Hydrocodone. 9. Reglan. 10. Valium. 11. Kenalog ointment. 12. Elocon. 13. Haldol. Dr. Carpenter is the collaborating physician available for consultation. #[id number] [facility]
== END 2017-11-09 11:25 | disposition home or self-care (01) | DRG 638 ==
LOC: ER 22:38 → MS 11-07 00:43 → OBSVTOIN 11-07 00:43
PROVIDERS: ADMIT Nurse Practitioner Acute Care; ATTEND Nurse Practitioner Acute Care
DX: E10.65 Type 1 diabetes mellitus with hyperglycemia (principal); E87.2 Acidosis; G40.909 Epilepsy, unspecified, not intractable, without status epilepticus; K21.9 Gastro-esophageal reflux disease without esophagitis; E10.43 Type 1 diabetes mellitus with diabetic autonomic (poly)neuropathy; K31.84 Gastroparesis; J44.9 Chronic obstructive pulmonary disease, unspecified; E10.42 Type 1 diabetes mellitus with diabetic polyneuropathy; M79.7 Fibromyalgia; G43.909 Migraine, unspecified, not intractable, without status migrainosus; F17.210 Nicotine dependence, cigarettes, uncomplicated; E86.0 Dehydration; E83.42 Hypomagnesemia; M25.551 Pain in right hip; Z79.4 Long term (current) use of insulin; Z91.013 Allergy to seafood; Z91.010 Allergy to peanuts; Z91.14 Patient's other noncompliance with medication regimen

== ENCOUNTER → 2017-11-19 | Day surgery (SDC) | payer MEDICARE, MEDICAID ==
--- NOTE | 2017-11-15 13:23 | HP ---
CHIEF COMPLAINT: Left hand numbness. HISTORY OF PRESENT ILLNESS: Ms. Perkins is a 42-year-old female with a history of pain and numbness in the hand that has been going on for over six months. She says it wakes her at night and causes difficulty with the use of the hands. She denies any trauma related to this. She has been seen by Dr. Lin and EMG confirms bilateral carpal tunnel syndrome. Because of the ongoing symptoms and dysfunction that it is causing, she has requested operative intervention. After discussing the risks, benefits and alternatives to that, the patient has given informed consent. PAST SURGICAL HISTORY: 1. Cholecystectomy. 2. Appendectomy. 3. Hysterectomy. 4. Bilateral knee arthroscopy. MEDICATIONS: 1. [place]. 2. Phenergan. 3. Lyrica. 4. Zanaflex. 5. Lexapro. 6. Ambien. 7. Levemir. 8. NovoLog. ALLERGIES: NO KNOWN DRUG ALLERGIES. CODE STATUS: Full code. IMMUNIZATIONS: Up to date. SOCIAL HISTORY: The patient does not drink or use any illicit drugs. She does smoke. FAMILY HISTORY: None pertinent to today's complaint. REVIEW OF SYSTEMS: Negative except as indicated in the History of Present Illness. PHYSICAL EXAMINATION: VITAL SIGNS: Blood pressure 125/73. Pulse 86. Height 5'4". Weight 158 pounds. MENTAL STATUS: The patient is awake, alert, and is able to give a good history and participate in the physical. The patient is oriented to person, place and time. SKIN: Normal tone and turgor. MUSCULOSKELETAL: She has positive carpal compression test. She has intact sensation on the ulnar aspect of the hands. Both hands are warm and well perfused. She maintains full range of motion in the hands as well as her wrists. She has no deformity. She has positive Tinel's bilaterally and there is minor thenar atrophy bilaterally. ASSESSMENT: 1. Bilateral carpal tunnel syndrome. PLAN: At this point, the left seems to bother her much worse than the right. To that end, we are going to proceed with carpal tunnel release on the left. We have discussed the risks, benefits, and alternatives to that and the patient has given informed consent. #[id number] [facility]
[~2017-11-19] MED LIST: BUPIVACAINE 0.25% INJ 30 ML VIAL INJ ONE; HYDROcodone 5MG/APAP 325MG 1 EA TAB ONE; LACTATED RINGERS 1,000 ML ONE; LIDOCAINE 1% 10 ML VIAL INJ ONE; LIDOCAINE 1% 50 ML VIAL INJ ONE; PROPOFOL 200 MG/20 ML VIAL IV ONE; SODIUM CHL 0.9% 100ML MINI-BAG 100 ML IVPB ONE; ceFAZolin SODIUM 1 GM VIAL ONE
[2017-11-19 09:18] VITALS: BP 116/79; TEMP 97.6; O2SAT 97
[2017-11-19] MEDS: ceFAZolin SODIUM 1 GM VIAL ONE ×2 (10:18→10:25)
[2017-11-19] MEDS: VANCOMYCIN HCL INJ 1,000 MG VIAL IVPB ONE ×2 (10:19→10:25)
--- NOTE | 2017-11-20 09:53 | OP ---
DATE OF PROCEDURE: 11/19/17 PREOPERATIVE DIAGNOSIS: 1. Carpal tunnel syndrome. POSTOPERATIVE DIAGNOSIS: 1. Carpal tunnel syndrome. PROCEDURE: 1. Carpal tunnel release. SURGEON: Ramos Maradiaga MD. PROGRAM PLANNER: Marlon Dale CST, SA-C. ANESTHESIA: Local with sedation. COMPLICATIONS: None. FINDINGS: Thickened transverse carpal ligament and narrowing of the median nerve across the carpal tunnel. INDICATION: Ms. Perkins has a long history of symptoms consistent with carpal tunnel syndrome. She has had confirmation of that on EMG. Because of her symptoms, she has requested operative intervention. After discussing the risks , benefits and alternatives to that, the patient has given informed consent for carpal tunnel release. PROCEDURE: The patient was brought to the Operating Room and placed in the supine position. Sedation was administered and local anesthetic was injected into the operative area under sterile conditions. After the injection of anesthetic, the arm was sterilely prepped and draped. A longitudinal incision was made directly overlying the transverse carpal ligament and blunt dissection was carried down to the ligament. The transverse carpal ligament was sharply transected along its length and a [place] elevator was used to ensure complete release of the ligament. Once release had been confirmed, the wound was thoroughly irrigated and the wound was closed with Nylon suture. A sterile dressing was placed and the patient was taken to the Day Surgery Unit. POSTOPERATIVE INSTRUCTIONS: The patient has been encouraged to do range of motion of the digits and will followup with us in two days. [facility][id number] [facility]
== END ==
LOC: AMB 05:45
PROVIDERS: ATTEND Orthopaedic Surgery
DX: G56.03 Carpal tunnel syndrome, bilateral upper limbs (principal); E11.9 Type 2 diabetes mellitus without complications; F17.210 Nicotine dependence, cigarettes, uncomplicated; J45.909 Unspecified asthma, uncomplicated; Z91.010 Allergy to peanuts; Z91.013 Allergy to seafood; Z79.4 Long term (current) use of insulin; Z79.899 Other long term (current) drug therapy
CPT/HCPCS: 01810; 36416; 64721; 82948; J0690; J3370; J3490; J7050; J7120

== ENCOUNTER 2017-11-30 18:58 | Emergency (ER) | payer MEDICARE, MEDICAID ==
--- NOTE | 2017-11-30 19:12 | ED.PDOC ---
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 IS [facility] SHE IS COMPLAINT WITH HER INSULIN AND DIET SHE DENIES FEVER CHILLS NO DYSURIA SHE IS REQUESTING PAIN MEDICATION AND ANXIETY MEDICATIONS SHE APPARENTLY TOOK A XANAX PRIO TO COMING HERE BUT NOT EFFECTIVE - History of Present Illness Timing/Duration: 24 hours Severity: moderate Improving Factors: nothing Worsening Factors: nothing Allergies/Adverse Reactions: Allergies Fish Allergy Allergy (Verified 11/07/17 12:24) peanut Allergy (Severe, Uncoded 11/07/17 12:24) Home Medications: Ambulatory Orders Zolpidem Tartrate [Ambien] 10 mg PO BEDTIME 04/09/16 Promethazine Tab [Phenergan Tablet] 25 mg PO Q6H PRN #30 tab 08/20/16 Tizanidine HCl [Zanaflex] 4 mg PO TID 12/18/16 Insulin Detemir [Levemir Pen] 32 units SUBCU DAILY 01/07/17 Insulin Aspart [Novolog] 0 unit SC ACHS PRN 05/15/17 Escitalopram [Lexapro] 10 mg PO BEDTIME #0 08/12/17 HYDROcodone 10MG/APAP 325MG [[place] 10/325] 1 ea PO QID 08/12/17 Metoclopramide HCl [Reglan] 10 mg PO DAILY PRN 09/15/17 Diazepam [Valium] 10 mg PO TID 11/07/17 Mometasone Furoate [Elocon] 0.1 % TOP DAILY 11/07/17 Triamcinolone 0.1% Oint [Kenalog 0.1% Ointment] 1 applic TOP DAILY 11/07/17 Haloperidol [Haldol] 1 - 2 mg PO Q6H PRN #20 tab 11/09/17 Pregabalin [Lyrica] 300 mg PO TID #90 cap 11/09/17 Review of Systems - Review of Systems Constitutional: States: no symptoms reported EENTM: States: no symptoms reported Respiratory: States: no symptoms reported Cardiology: States: no symptoms reported Gastrointestinal/Abdominal: States: nausea, vomiting Musculoskeletal: States: no symptoms reported Skin: States: no symptoms reported Neurological: States: anxiety Endocrine: States: see HPI Past Medical History (General) - Patient Medical History Hx Seizures: Yes Hx Stroke: No Hx Dementia: No Hx Asthma: Yes Hx of COPD: No Hx Cardiac Disorders: No Hx Congestive Heart Failure: No Hx Pacemaker: No Hx Hypertension: No Hx Thyroid Disease: No Hx Diabetes: Yes - [id number] Hx Gastroesophageal Reflux: Yes Hx Renal Disease: No Hx Cancer: No Hx of HIV: No Hx Hepatitis C: No Hx MRSA: Yes MRSA Source:: Blood - Vaccination History Hx Tetanus, Diphtheria Vaccination: No Hx Influenza Vaccination: No - allergy Hx Pneumococcal Vaccination: No - Social History Hx Tobacco Use: Yes Hx Chewing Tobacco Use: No Hx Alcohol Use: No Hx Substance Use: No Hx Substance Use Treatment: No Hx Depression: No Hx Physical Abuse: No Hx Emotional Abuse: No Hx Suspected Abuse: No - Female History Hx Last Menstrual Period: 11/05/11 Patient : No Family Medical History - Family History Mother Family History: No Known Name: April Age (years): 67 Living Status: Still Living Hx Family Asthma: No Hx Family Congestive Heart Failure: No Hx Family Hypertension: No Hx Family Stroke: No Hx Cardiac Disease: No Hx Family Diabetes: No Hx Family Cancer: No Hx Family;Other: thyroid problems Father Family History: No Known Name: Marlon Age (years): 65 Living Status: Still Living Hx Family Asthma: - Sister Hx Family Congestive Heart Failure: No Hx Family Hypertension: Yes Hx Family Stroke: No Hx Cardiac Disease: Yes Hx Family Diabetes: No Age of Onset (years of age): 32 Hx Family Cancer: Yes - Grandmother Lymphoma Physical Exam - Physical Exam General Appearance: Alert Eye Exam: bilateral normal Ears, Nose, Throat: hearing grossly normal Neck: non-tender Respiratory: chest non-tender, lungs clear, normal breath sounds, no respiratory distress Cardiovascular/Chest: normal peripheral pulses, regular rate, rhythm, no edema, no gallop, no JVD, no murmur Gastrointestinal/Abdominal: normal bowel sounds, non tender, soft, no organomegaly Neurologic: buckle attacher II-XII nml as tested, no motor/sensory deficits, alert, normal mood/affect Progress - Progress Progress: 11/30/17 20:56 Laboratory Tests 11/30/17 11/30/17 11/30/17 19:06 19:06 19:19 WBC RBC Hgb Hct MCV MCH MCHC RDW Plt Count MPV Absolute Neuts (auto) Absolute Lymphs (auto) Absolute Monos (auto) Absolute Eos (auto) Absolute Basos (auto) Neutrophils % Lymphocytes % Monocytes % Eosinophils % Basophils % Sodium Potassium Chloride Carbon Dioxide Anion Gap BUN Creatinine BUN/Creatinine Ratio POC Glucose 248 H Random Glucose Serum Osmolality Calcium Total Bilirubin AST ALT Alkaline Phosphatase Serum Total Protein Albumin Globulin Albumin/Globulin Ratio Urine Color Yellow Urine Appearance Sl cloudy Urine pH 6.0 Ur Specific [place] 1.025 Urine Protein 30 Urine Glucose (UA) 500 H Urine Ketones 80 H Urine Blood Small H Urine Nitrite Negative Urine Bilirubin Small H Urine Urobilinogen 0.2 Ur Leukocyte Esterase Negative Urine RBC 5-10 H Urine WBC 0 Ur Epithelial Cells 20-30 Urine Bacteria 3+ H Urine Opiates Screen Positive H Urine Barbiturates Negative Ur Phencyclidine Scrn Negative U Amphetamin/Meth Scrn Negative U Benzodiazepines Scrn Positive H U Cocaine Metab Screen Negative U Cannabinoids Screen Negative Serum Ketones 11/30/17 11/30/17 19:25 19:25 WBC 5.2 RBC 4.97 Hgb 13.2 Hct 39.6 MCV 79.7 L MCH 26.5 L MCHC 33.3 RDW 14.2 Plt Count 335 MPV 8.3 Absolute Neuts (auto) 3.00 Absolute Lymphs (auto) 1.40 Absolute Monos (auto) 0.40 Absolute Eos (auto) 0.30 Absolute Basos (auto) 0.00 Neutrophils % 57.5 Lymphocytes % 27.6 Monocytes % 8.6 Eosinophils % 5.4 H Basophils % 0.9 Sodium 135 Potassium 4.0 Chloride 104 Carbon Dioxide 21 Anion Gap 14.0 BUN 13 Creatinine 0.74 BUN/Creatinine Ratio 17.6 POC Glucose Random Glucose 271 H Serum Osmolality 279.8 Calcium 9.1 Total Bilirubin 0.5 AST 22 ALT 21 Alkaline Phosphatase 143 H Serum Total Protein 7.2 Albumin 3.8 Globulin 3.4 Albumin/Globulin Ratio 1.1 Urine Color Urine Appearance Urine pH Ur Specific [place] Urine Protein Urine Glucose (UA) Urine Ketones Urine Blood Urine Nitrite Urine Bilirubin Urine Urobilinogen Ur Leukocyte Esterase Urine RBC Urine WBC Ur Epithelial Cells Urine Bacteria Urine Opiates Screen Urine Barbiturates Ur Phencyclidine Scrn U Amphetamin/Meth Scrn U Benzodiazepines Scrn U Cocaine Metab Screen U Cannabinoids Screen Serum Ketones Small Departure - Departure Clinical Impression: Abdominal pain, Uncontrolled diabetes mellitus Time of Disposition: 20:57 Disposition: Discharge to Home or Self Care Condition: Good Departure Forms: ED Discharge - Pt. Copy, Patient Portal Self Enrollment Instructions: DI for Diabetes Type 2 Referrals: Joby Rangel MD [Primary Care Provider] - 1-2 Weeks Home Medications: Ambulatory Orders Zolpidem Tartrate [Ambien] 10 mg PO BEDTIME 04/09/16 Promethazine Tab [Phenergan Tablet] 25 mg PO Q6H PRN #30 tab 08/20/16 Tizanidine HCl [Zanaflex] 4 mg PO TID 12/18/16 Insulin Detemir [Levemir Pen] 32 units SUBCU DAILY 01/07/17 Insulin Aspart [Novolog] 0 unit SC ACHS PRN 05/15/17 Escitalopram [Lexapro] 10 mg PO BEDTIME #0 08/12/17 HYDROcodone 10MG/APAP 325MG [[place] 10/325] 1 ea PO QID 08/12/17 Metoclopramide HCl [Reglan] 10 mg PO DAILY PRN 09/15/17 Diazepam [Valium] 10 mg PO TID 11/07/17 Mometasone Furoate [Elocon] 0.1 % TOP DAILY 11/07/17 Triamcinolone 0.1% Oint [Kenalog 0.1% Ointment] 1 applic TOP DAILY 11/07/17 Haloperidol [Haldol] 1 - 2 mg PO Q6H PRN #20 tab 11/09/17 Pregabalin [Lyrica] 300 mg PO TID #90 cap 11/09/17
[2017-11-30] MEDS ORDERED: SODIUM CHLORIDE 0.9% 1000ML 1,000 ML IVS ONE (19:14)
[2017-11-30] MEDS ORDERED: ONDANSETRON INJ 4 MG/2 ML VIAL IV ONE (19:15)
--- NOTE | 2017-11-30 19:20 | RAD ---
EXAM DESCRIPTION: Chest,1 View CLINICAL HISTORY: trouble breathing COMPARISON: 11/05/2017 FINDINGS: Cardiac silhouette is within normal limits. There is no focal parenchymal or pleural disease. Visualized osseous structures are within normal limits. IMPRESSION: No evidence of acute cardiopulmonary disease. Electronically signed by: Marlon Louise 11/30/2017 7:18 PM CDT
[2017-11-30 19:31] VITALS: TEMP 98.6
[2017-11-30] MEDS ORDERED: HYDROcodone 5MG/APAP 325MG 1 EA TAB PO ONE (20:08)
[2017-11-30 21:19] VITALS: BP 104/72; O2SAT 95
== END 2017-11-30 21:19 | disposition home or self-care (01) ==
LOC: ER 18:58
DX: E11.65 Type 2 diabetes mellitus with hyperglycemia (principal); R10.9 Unspecified abdominal pain; R11.2 Nausea with vomiting, unspecified; K21.9 Gastro-esophageal reflux disease without esophagitis; J45.909 Unspecified asthma, uncomplicated; Z87.891 Personal history of nicotine dependence; Z79.4 Long term (current) use of insulin; Z79.899 Other long term (current) drug therapy
CPT/HCPCS: 36415; 36416; 71045; 80053; 80307; 81001; 82009; 82948; 85025; 93005; 94760; J2060; J2405; J7030

== ENCOUNTER 2017-12-01 14:57 | Emergency (ER) | payer MEDICARE, MEDICAID ==
--- NOTE | 2017-12-01 15:28 | ED.PDOC ---
History of Present Illness - General Chief Complaint: Behavioral / Psych Stated Complaint: anxiety, shortness of breath, vomiting Time Seen by Provider: 12/01/17 15:19 Source: patient Exam Limitations: no limitations - History of Present Illness Initial Comments: Shwetha Perkins 42 y/o female brought by ems with nausea vomiting multiple times since yesterday .she was seen here last night. Has history of DM1 with multiple ER visits for nausea vomiting and sometimes DKA.Her blood work-chemistries did not show DKA last night. Stated she continue to throw up breathing fast. Timing/Duration: 24 hours Severity: moderate Worsening Factors: nothing Associated Symptoms: nausea/vomiting Allergies/Adverse Reactions: Allergies Fish Allergy Allergy (Verified 11/07/17 12:24) peanut Allergy (Severe, Uncoded 11/07/17 12:24) Home Medications: Ambulatory Orders Zolpidem Tartrate [Ambien] 10 mg PO BEDTIME 04/09/16 Promethazine Tab [Phenergan Tablet] 25 mg PO Q6H PRN #30 tab 08/20/16 Tizanidine HCl [Zanaflex] 4 mg PO TID 12/18/16 Insulin Detemir [Levemir Pen] 32 units SUBCU DAILY 01/07/17 Insulin Aspart [Novolog] 0 unit SC ACHS PRN 05/15/17 Escitalopram [Lexapro] 10 mg PO BEDTIME #0 08/12/17 HYDROcodone 10MG/APAP 325MG [[place] 10/325] 1 ea PO QID 08/12/17 Metoclopramide HCl [Reglan] 10 mg PO DAILY PRN 09/15/17 Diazepam [Valium] 10 mg PO TID 11/07/17 Mometasone Furoate [Elocon] 0.1 % TOP DAILY 11/07/17 Triamcinolone 0.1% Oint [Kenalog 0.1% Ointment] 1 applic TOP DAILY 11/07/17 Haloperidol [Haldol] 1 - 2 mg PO Q6H PRN #20 tab 11/09/17 Pregabalin [Lyrica] 300 mg PO TID #90 cap 11/09/17 raNITIdine HCL [Zantac] 150 mg PO BID #60 tab 12/01/17 raNITIdine HCL [Zantac] 150 mg PO BID #60 tab 12/01/17 Review of Systems - Review of Systems Constitutional: States: no symptoms reported EENTM: States: no symptoms reported Respiratory: States: no symptoms reported Cardiology: States: no symptoms reported Gastrointestinal/Abdominal: States: see HPI Musculoskeletal: States: no symptoms reported Skin: States: no symptoms reported Neurological: States: no symptoms reported All other Systems: Reviewed and Negative, No Change from Baseline Past Medical History (General) - Patient Medical History Hx Seizures: Yes Hx Stroke: No Hx Dementia: No Hx Asthma: Yes Hx of COPD: No Hx Cardiac Disorders: No Hx Congestive Heart Failure: No Hx Pacemaker: No Hx Hypertension: No Hx Thyroid Disease: No Hx Diabetes: Yes - [id number] Hx Gastroesophageal Reflux: Yes Hx Renal Disease: No Hx Cancer: No Hx of HIV: No Hx Hepatitis C: No Hx MRSA: Yes MRSA Source:: Blood - Vaccination History Hx Tetanus, Diphtheria Vaccination: No Hx Influenza Vaccination: No - allergy Hx Pneumococcal Vaccination: No - Social History Hx Tobacco Use: Yes Hx Chewing Tobacco Use: No Hx Alcohol Use: No Hx Substance Use: No Hx Substance Use Treatment: No Hx Depression: No Hx Physical Abuse: No Hx Emotional Abuse: No Hx Suspected Abuse: No - Female History Hx Last Menstrual Period: 11/05/11 Patient : No Family Medical History - Family History Mother Family History: No Known Name: April Age (years): 67 Living Status: Still Living Hx Family Asthma: No Hx Family Congestive Heart Failure: No Hx Family Hypertension: No Hx Family Stroke: No Hx Cardiac Disease: No Hx Family Diabetes: No Hx Family Cancer: No Hx Family;Other: thyroid problems Father Family History: No Known Name: Marlon Age (years): 65 Living Status: Still Living Hx Family Asthma: - Sister Hx Family Congestive Heart Failure: No Hx Family Hypertension: Yes Hx Family Stroke: No Hx Cardiac Disease: Yes Hx Family Diabetes: No Age of Onset (years of age): 32 Hx Family Cancer: Yes - Grandmother Lymphoma Physical Exam - Physical Exam General Appearance: Anxious, No apparent distress Eye Exam: bilateral normal Ears, Nose, Throat: hearing grossly normal, normal ENT inspection, normal pharynx Neck: non-tender, supple Respiratory: chest non-tender, lungs clear, normal breath sounds, no respiratory distress Cardiovascular/Chest: normal peripheral pulses, tachycardia Peripheral Pulses: radial,right: 2+, radial,left: 2+ Gastrointestinal/Abdominal: normal bowel sounds, non tender, soft, no organomegaly Back Exam: no CVA tenderness, no vertebral tenderness Neurologic: alert, oriented x 3 Skin Exam: normal color Progress - Progress Progress: 12/01/17 16:34 Vital Signs - 8 hr 12/01/17 12/01/17 15:21 15:27 Temperature 99.5 F Pulse Rate [ 121 H left brachial] Respiratory 28 H 28 H Rate Blood Pressure 115/81 [left brachial] O2 Sat by Pulse 96 Oximetry - Results/Orders Results/Orders: 12/01/17 15:29 IV Care:Saline Lock per Protoc QSHIFT 12/01/17 15:30 EKG STAT 12/01/17 19:51 Sodium Chloride 0.9% 500Ml [NS 500ml] 500 ml IVS ONCE Laboratory Results - last 24 hr 12/01/17 12/01/17 12/01/17 15:38 15:38 16:14 WBC 5.9 RBC 5.11 Hgb 13.7 Hct 40.2 MCV 78.6 L MCH 26.8 L MCHC 34.1 RDW 14.2 Plt Count 367 MPV 8.2 Absolute Neuts (auto) 4.30 Absolute Lymphs (auto) 1.10 Absolute Monos (auto) 0.30 Absolute Eos (auto) 0.10 Absolute Basos (auto) 0.00 Neutrophils % 72.9 Lymphocytes % 18.9 L Monocytes % 5.6 Eosinophils % 2.2 Basophils % 0.4 PT 10.9 INR 0.940 PTT (SP) 28.5 D-Dimer, Quantitative < 230 Sodium 137 Potassium 3.4 L Chloride 107 Carbon Dioxide 18 L Anion Gap 15.4 BUN 7 D Creatinine 0.66 BUN/Creatinine Ratio 10.6 Random Glucose 161 H D Serum Osmolality 275.3 Calcium 9.7 Magnesium 1.6 L Total Bilirubin 1.1 H D Direct Bilirubin < 0.1 Indirect Bilirubin 1.0 H AST 18 ALT 21 Alkaline Phosphatase 143 H Creatine Kinase 35 CK-MB (CK-2) 0.4 CK-MB (CK-2) % Not Reportable Troponin I < 0.02 C-Reactive Protein 0.7 Serum Total Protein 7.6 Albumin 4.2 Lipase 21 L Urine Color Urine Appearance Urine pH Ur Specific [place] Urine Protein Urine Glucose (UA) Urine Ketones Urine Blood Urine Nitrite Urine Bilirubin Urine Urobilinogen Ur Leukocyte Esterase Urine RBC Urine WBC Ur Epithelial Cells Urine Bacteria 12/01/17 17:47 WBC RBC Hgb Hct MCV MCH MCHC RDW Plt Count MPV Absolute Neuts (auto) Absolute Lymphs (auto) Absolute Monos (auto) Absolute Eos (auto) Absolute Basos (auto) Neutrophils % Lymphocytes % Monocytes % Eosinophils % Basophils % PT INR PTT (SP) D-Dimer, Quantitative Sodium Potassium Chloride Carbon Dioxide Anion Gap BUN Creatinine BUN/Creatinine Ratio Random Glucose Serum Osmolality Calcium Magnesium Total Bilirubin Direct Bilirubin Indirect Bilirubin AST ALT Alkaline Phosphatase Creatine Kinase CK-MB (CK-2) CK-MB (CK-2) % Troponin I C-Reactive Protein Serum Total Protein Albumin Lipase Urine Color Yellow Urine Appearance Clear Urine pH 5.5 Ur Specific [place] <= 1.005 Urine Protein Negative Urine Glucose (UA) Negative Urine Ketones 40 H Urine Blood Small H Urine Nitrite Negative Urine Bilirubin Negative Urine Urobilinogen 0.2 Ur Leukocyte Esterase Negative Urine RBC 1-3 Urine WBC 0 Ur Epithelial Cells 1-3 Urine Bacteria 0 - EKG/XRAY/CT EKG: Sinus, Tachy, no ST T wave changes Comments: HR -123 XRAY: chest - no acute abnormalities - Additional EKG/XRAY/Consults EKG #2: Sinus, no ST T wave changes Comments: HR-82 Departure - Departure Clinical Impression: Gastroparesis due to secondary diabetes Nausea & vomiting Qualifiers: Vomiting type: unspecified Vomiting Intractability: unspecified Qualified Code( s): R11.2 - Nausea with vomiting, unspecified Diabetes Qualifiers: Diabetes mellitus type: type 1 Diabetes mellitus complication status: with unspecified complications Qualified Code(s): E10.8 - Type 1 diabetes mellitus with unspecified complications Disposition: Discharge to Home or Self Care Condition: Fair Departure Forms: ED Discharge - Pt. Copy, Patient Portal Self Enrollment Instructions: Gastroparesis, DI for Gastroparesis Diet: diabetic diet, other - small frequent meal Referrals: Joby Rangel MD [Primary Care Provider] - 1-2 Weeks Prescriptions: raNITIdine HCL [Zantac] 150 mg PO BID #60 tab raNITIdine HCL [Zantac] 150 mg PO BID #60 tab Home Medications: Ambulatory Orders Zolpidem Tartrate [Ambien] 10 mg PO BEDTIME 04/09/16 Promethazine Tab [Phenergan Tablet] 25 mg PO Q6H PRN #30 tab 08/20/16 Tizanidine HCl [Zanaflex] 4 mg PO TID 12/18/16 Insulin Detemir [Levemir Pen] 32 units SUBCU DAILY 01/07/17 Insulin Aspart [Novolog] 0 unit SC ACHS PRN 05/15/17 Escitalopram [Lexapro] 10 mg PO BEDTIME #0 08/12/17 HYDROcodone 10MG/APAP 325MG [[place] 10/325] 1 ea PO QID 08/12/17 Metoclopramide HCl [Reglan] 10 mg PO DAILY PRN 09/15/17 Diazepam [Valium] 10 mg PO TID 11/07/17 Mometasone Furoate [Elocon] 0.1 % TOP DAILY 11/07/17 Triamcinolone 0.1% Oint [Kenalog 0.1% Ointment] 1 applic TOP DAILY 11/07/17 Haloperidol [Haldol] 1 - 2 mg PO Q6H PRN #20 tab 11/09/17 Pregabalin [Lyrica] 300 mg PO TID #90 cap 11/09/17 raNITIdine HCL [Zantac] 150 mg PO BID #60 tab 12/01/17 raNITIdine HCL [Zantac] 150 mg PO BID #60 tab 12/01/17 Additional Instructions: Follow up with primary Md in AM for referral to [facility]
[2017-12-01] MEDS ORDERED: LACTATED RINGERS 1,000 ML IVS ONE (15:29)
[2017-12-01] MEDS ORDERED: METOCLOPRAMIDE HCL INJ 10 MG/2 ML VIAL IV ONE (15:29)
--- NOTE | 2017-12-01 16:23 | RAD ---
EXAM: Chest,1 View CLINICAL INDICATION: 42-year-old female with tachypnea. TECHNIQUE: Single view, AP portable chest was obtained. COMPARISON: Single view chest 11/22/2017. FINDINGS: Stable cardiac and mediastinal silhouette. Heart size is normal. Low lung volumes grossly clear without focal opacity, pneumothorax or pleural effusions. The visualized bones are within normal limits. IMPRESSION: No acute cardiopulmonary abnormalities. Electronically signed by: Justa Paniagua MD 12/01/2017 4:21 PM CDT
[2017-12-01 18:32] VITALS: BP 112/78; O2SAT 95
[2017-12-01] MEDS ORDERED: HALOPERIDOL LACTATE INJ 5 MG/ML VIAL IM ONE (19:51)
[2017-12-01] MEDS ORDERED: SODIUM CHLORIDE 0.9% 500ML 500 ML IVS ONE (19:51)
[2017-12-01] MEDS ORDERED: diphenhydrAMINE HCL 50 MG/ML VIAL IM ONE (19:51)
[2017-12-01] MEDS ORDERED: MAGNESIUM SULFATE PREMIX 2GM 2 GM in PREMIX BAG 1 BAG IVPB ONE (20:03)
[2017-12-01] MEDS ORDERED: MAGNESIUM SULFATE PREMIX 2GM 50 ML IVPB ONE (20:17)
[2017-12-01 22:12] VITALS: TEMP 98.2
== END 2017-12-01 22:12 | disposition home or self-care (01) ==
LOC: ER 14:57
DX: E10.43 Type 1 diabetes mellitus with diabetic autonomic (poly)neuropathy (principal); K31.84 Gastroparesis; Z79.4 Long term (current) use of insulin; K21.9 Gastro-esophageal reflux disease without esophagitis; R00.0 Tachycardia, unspecified; Z87.891 Personal history of nicotine dependence
CPT/HCPCS: 36415; 71045; 80048; 80076; 81001; 82550; 82553; 83690; 84484; 85025; 85379; 85610; 85730; 86140; 93005; J1200; J1630; J2060; J2765; J3475; J7040; J7120

== ENCOUNTER 2017-12-03 16:50 | Emergency (ER) | payer MEDICARE, MEDICAID ==
[2017-12-03 17:00] VITALS: O2SAT 98
--- NOTE | 2017-12-03 17:19 | ED.PDOC ---
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 Timing/Duration: 4-6 hours Severity: moderate Improving Factors: nothing Worsening Factors: nothing Associated Symptoms: other - see hpi Allergies/Adverse Reactions: Allergies Fish Allergy Allergy (Verified 12/03/17 17:00) peanut Allergy (Severe, Uncoded 12/03/17 17:00) Home Medications: Ambulatory Orders Zolpidem Tartrate [Ambien] 10 mg PO BEDTIME 04/09/16 Promethazine Tab [Phenergan Tablet] 25 mg PO Q6H PRN #30 tab 08/20/16 Tizanidine HCl [Zanaflex] 4 mg PO TID 12/18/16 Insulin Detemir [Levemir Pen] 32 units SUBCU DAILY 01/07/17 Insulin Aspart [Novolog] 0 unit SC ACHS PRN 05/15/17 Escitalopram [Lexapro] 10 mg PO BEDTIME #0 08/12/17 HYDROcodone 10MG/APAP 325MG [[place] 10/325] 1 ea PO QID 08/12/17 Metoclopramide HCl [Reglan] 10 mg PO DAILY PRN 09/15/17 Diazepam [Valium] 10 mg PO TID 11/07/17 Mometasone Furoate [Elocon] 0.1 % TOP DAILY 11/07/17 Triamcinolone 0.1% Oint [Kenalog 0.1% Ointment] 1 applic TOP DAILY 11/07/17 Haloperidol [Haldol] 1 - 2 mg PO Q6H PRN #20 tab 11/09/17 Pregabalin [Lyrica] 300 mg PO TID #90 cap 11/09/17 raNITIdine HCL [Zantac] 150 mg PO BID #60 tab 12/01/17 raNITIdine HCL [Zantac] 150 mg PO BID #60 tab 12/01/17 busPIRone HCL [Buspar] 5 mg PO BID #20 tab 12/03/17 Review of Systems - Review of Systems Constitutional: States: no symptoms reported EENTM: States: no symptoms reported Respiratory: States: no symptoms reported Cardiology: States: see HPI Gastrointestinal/Abdominal: States: see HPI Musculoskeletal: States: no symptoms reported Neurological: States: emotional problems Endocrine: States: see HPI All other Systems: Reviewed and Negative, No Change from Baseline Past Medical History (General) - Patient Medical History Hx Seizures: Yes Hx Stroke: No Hx Dementia: No Hx Asthma: Yes Hx of COPD: No Hx Cardiac Disorders: No Hx Congestive Heart Failure: No Hx Pacemaker: No Hx Hypertension: No Hx Thyroid Disease: No Hx Diabetes: Yes Hx Gastroesophageal Reflux: Yes Hx Renal Disease: No Hx Cancer: No Hx of HIV: No Hx Hepatitis C: No Hx MRSA: Yes MRSA Source:: Blood Surgical History: appendectomy, cholecystectomy, Hysterectomy, other - hysterectomy - Vaccination History Hx Tetanus, Diphtheria Vaccination: No Hx Influenza Vaccination: No Hx Pneumococcal Vaccination: No - Social History Hx Tobacco Use: Yes Hx Chewing Tobacco Use: No Hx Alcohol Use: No Hx Substance Use: Yes - remote history Hx Substance Use Treatment: No Hx Depression: No Hx Physical Abuse: No Hx Emotional Abuse: No Hx Suspected Abuse: No - Activities of Daily Living Grooming Ability: Independent Eating (Feeding) Ability: Independent Toileting Ability: Independent - Female History Patient is a Female of Child Bearing Age (10 -59 yrs old): No Hx Last Menstrual Period: 11/05/11 Patient : No Family Medical History - Family History Mother Family History: No Known Name: April Age (years): 67 Living Status: Still Living Hx Family Asthma: No Hx Family Congestive Heart Failure: No Hx Family Hypertension: No Hx Family Stroke: No Hx Cardiac Disease: No Hx Family Diabetes: No Hx Family Cancer: No Hx Family;Other: thyroid problems Father Family History: No Known Name: Marlon Age (years): 65 Living Status: Still Living Hx Family Asthma: - Sister Hx Family Congestive Heart Failure: No Hx Family Hypertension: Yes Hx Family Stroke: No Hx Cardiac Disease: Yes Hx Family Diabetes: No Age of Onset (years of age): 32 Hx Family Cancer: Yes - Grandmother Lymphoma Physical Exam - Physical Exam General Appearance: Alert, Anxious, No apparent distress Eye Exam: bilateral normal Ears, Nose, Throat: hearing grossly normal, normal ENT inspection, normal pharynx Neck: non-tender, full range of motion, supple Respiratory: chest non-tender, lungs clear, normal breath sounds, no respiratory distress Cardiovascular/Chest: normal peripheral pulses, tachycardia - HR-137 Peripheral Pulses: radial,right: 2+, radial,left: 2+ Gastrointestinal/Abdominal: normal bowel sounds, non tender, soft, no organomegaly Back Exam: no CVA tenderness, no vertebral tenderness Extremity: normal inspection, no pedal edema, no calf tenderness Neurologic: alert, oriented x 3 Skin Exam: normal color, warm/dry Progress - Progress Progress: 12/03/17 17:57 Vital Signs - 8 hr 12/03/17 16:53 Temperature 97.7 F Pulse Rate [ 147 H pulse ox] Respiratory 24 Rate Blood Pressure 145/92 [Left Arm] O2 Sat by Pulse 98 Oximetry 12/03/17 19:10 Vital Signs - 8 hr 12/03/17 12/03/17 16:53 19:08 Temperature 97.7 F Pulse Rate [ 147 H 80 pulse ox] Respiratory 24 16 Rate Blood Pressure 145/92 117/56 [Left Arm] O2 Sat by Pulse 98 98 Oximetry - Results/Orders Results/Orders: Vital Signs - 8 hr 12/03/17 16:53 Temperature 97.7 F Pulse Rate [ 147 H pulse ox] Respiratory 24 Rate Blood Pressure 145/92 [Left Arm] O2 Sat by Pulse 98 Oximetry - EKG/XRAY/CT EKG: Sinus, Tachy, no ST T wave changes Comments: HR 137 Departure - Departure Clinical Impression: Tachycardia, Acute anxiety, History of diabetes mellitus, type I Time of Disposition: 19:13 Disposition: Discharge to Home or Self Care Departure Forms: ED Discharge - Pt. Copy, Patient Portal Self Enrollment Instructions: DI for Abdominal Pain-Adult Referrals: Joby Rangel MD [Primary Care Provider] - 1-2 Weeks Prescriptions: busPIRone HCL [Buspar] 5 mg PO BID #20 tab Home Medications: Ambulatory Orders Zolpidem Tartrate [Ambien] 10 mg PO BEDTIME 04/09/16 Promethazine Tab [Phenergan Tablet] 25 mg PO Q6H PRN #30 tab 08/20/16 Tizanidine HCl [Zanaflex] 4 mg PO TID 12/18/16 Insulin Detemir [Levemir Pen] 32 units SUBCU DAILY 01/07/17 Insulin Aspart [Novolog] 0 unit SC ACHS PRN 05/15/17 Escitalopram [Lexapro] 10 mg PO BEDTIME #0 08/12/17 HYDROcodone 10MG/APAP 325MG [[place] 10325] 1 ea PO QID 08/12/17 Metoclopramide HCl [Reglan] 10 mg PO DAILY PRN 09/15/17 Diazepam [Valium] 10 mg PO TID 11/07/17 Mometasone Furoate [Elocon] 0.1 % TOP DAILY 11/07/17 Triamcinolone 0.1% Oint [Kenalog 0.1% Ointment] 1 applic TOP DAILY 11/07/17 Haloperidol [Haldol] 1 - 2 mg PO Q6H PRN #20 tab 11/09/17 Pregabalin [Lyrica] 300 mg PO TID #90 cap 11/09/17 raNITIdine HCL [Zantac] 150 mg PO BID #60 tab 12/01/17 raNITIdine HCL [Zantac] 150 mg PO BID #60 tab 12/01/17 busPIRone HCL [Buspar] 5 mg PO BID #20 tab 12/03/17 Additional Instructions: Follow up with primary 04 Dec 2017
[2017-12-03] MEDS ORDERED: HALOPERIDOL LACTATE INJ 5 MG/ML VIAL IM ONE (17:20)
[2017-12-03] MEDS ORDERED: diphenhydrAMINE HCL 50 MG/ML VIAL IV ONE (17:20)
[2017-12-03] MEDS ORDERED: LACTATED RINGERS 1,000 ML IVS ONE (17:20)
[2017-12-03] MEDS ORDERED: SODIUM CHLORIDE 0.9% 1000ML 1,000 ML IVS ONE (18:48)
[2017-12-03 19:30] VITALS: BP 117/67; TEMP 97.9
== END 2017-12-03 19:30 | disposition home or self-care (01) ==
LOC: ER 16:50
DX: R00.0 Tachycardia, unspecified (principal); F41.9 Anxiety disorder, unspecified; E10.9 Type 1 diabetes mellitus without complications; J45.909 Unspecified asthma, uncomplicated; K21.9 Gastro-esophageal reflux disease without esophagitis; Z87.891 Personal history of nicotine dependence; Z79.4 Long term (current) use of insulin; Z79.899 Other long term (current) drug therapy
CPT/HCPCS: 36415; 80048; 80076; 80320; 82550; 82553; 83605; 83690; 84484; 85025; 85379; 85610; 85730; 93005; J1200; J1630; J2060; J7030; J7120

== ENCOUNTER 2017-12-04 11:48 | Emergency (ER) | payer MEDICARE, MEDICAID ==
[2017-12-04] MEDS ORDERED: HALOPERIDOL LACTATE INJ 5 MG/ML VIAL IM ONE (12:09)
[2017-12-04] MEDS ORDERED: LACTATED RINGERS 1,000 ML IVS ONE (12:09)
[2017-12-04] MEDS ORDERED: diphenhydrAMINE HCL 50 MG/ML VIAL IV ONE (12:09)
[2017-12-04 12:21] VITALS: TEMP 98.1
--- NOTE | 2017-12-04 12:28 | ED.PDOC ---
History of Present Illness - General Chief Complaint: Cardiovascular Problem Stated Complaint: chest pain; anxiety Time Seen by Provider: 12/04/17 12:08 Source: patient Exam Limitations: no limitations - History of Present Illness Initial Comments: Shwetha Perkins 42 y/o female with history of DM1/and DKA hospitalization brought by EMS after felt her heart was racing ,SOB,and sharp chest pains 1-2 hours ago She was given [address] on the way here.No diaphoresis,felt nauseated.Had numerous visits here in [facility]- ER recently for same problem anxiety attacks, nausea,dka symptoms.Had holter monitoring done in the past for episodes of sinus tachycardia in November [address] 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 Timing/Duration: 1-3 hours Severity: moderate Improving Factors: nothing Worsening Factors: nothing Associated Symptoms: chest pain, shortness of breath Allergies/Adverse Reactions: Allergies Fish Allergy Allergy (Verified 12/03/17 17:00) peanut Allergy (Severe, Uncoded 12/03/17 17:00) Home Medications: Ambulatory Orders Zolpidem Tartrate [Ambien] 10 mg PO BEDTIME 04/09/16 Promethazine Tab [Phenergan Tablet] 25 mg PO Q6H PRN #30 tab 08/20/16 Tizanidine HCl [Zanaflex] 4 mg PO TID 12/18/16 Insulin Detemir [Levemir Pen] 32 units SUBCU DAILY 01/07/17 Insulin Aspart [Novolog] 0 unit SC ACHS PRN 05/15/17 Escitalopram [Lexapro] 10 mg PO BEDTIME #0 08/12/17 HYDROcodone 10MG/APAP 325MG [[place] 10/325] 1 ea PO QID 08/12/17 Metoclopramide HCl [Reglan] 10 mg PO DAILY PRN 09/15/17 Diazepam [Valium] 10 mg PO TID 11/07/17 Mometasone Furoate [Elocon] 0.1 % TOP DAILY 11/07/17 Triamcinolone 0.1% Oint [Kenalog 0.1% Ointment] 1 applic TOP DAILY 11/07/17 Haloperidol [Haldol] 1 - 2 mg PO Q6H PRN #20 tab 11/09/17 Pregabalin [Lyrica] 300 mg PO TID #90 cap 11/09/17 raNITIdine HCL [Zantac] 150 mg PO BID #60 tab 12/01/17 raNITIdine HCL [Zantac] 150 mg PO BID #60 tab 12/01/17 busPIRone HCL [Buspar] 5 mg PO BID #20 tab 12/03/17 Review of Systems - Review of Systems Constitutional: States: no symptoms reported EENTM: States: no symptoms reported Respiratory: States: see HPI Cardiology: States: see HPI Genitourinary: States: no symptoms reported Musculoskeletal: States: no symptoms reported All other Systems: Reviewed and Negative, No Change from Baseline Past Medical History (General) - Patient Medical History Hx Seizures: Yes Hx Stroke: No Hx Dementia: No Hx Asthma: Yes Hx of COPD: No Hx Cardiac Disorders: No Hx Congestive Heart Failure: No Hx Pacemaker: No Hx Hypertension: No Hx Thyroid Disease: No Hx Diabetes: Yes Hx Gastroesophageal Reflux: Yes Hx Renal Disease: No Hx Cancer: No Hx of HIV: No Hx Hepatitis C: No Hx MRSA: Yes MRSA Source:: Blood Surgical History: appendectomy, cholecystectomy, other - hysterectomy - Vaccination History Hx Tetanus, Diphtheria Vaccination: No Hx Influenza Vaccination: No Hx Pneumococcal Vaccination: No - Social History Hx Tobacco Use: Yes Hx Chewing Tobacco Use: No Hx Alcohol Use: No Hx Substance Use: Yes - remote history Hx Substance Use Treatment: No Hx Depression: No Hx Physical Abuse: No Hx Emotional Abuse: No Hx Suspected Abuse: No - Female History Hx Last Menstrual Period: 11/05/11 Patient : No Family Medical History - Family History Mother Family History: No Known Name: April Age (years): 67 Living Status: Still Living Hx Family Asthma: No Hx Family Congestive Heart Failure: No Hx Family Hypertension: No Hx Family Stroke: No Hx Cardiac Disease: No Hx Family Diabetes: No Hx Family Cancer: No Hx Family;Other: thyroid problems Father Family History: No Known Name: Amrlon Age (years): 65 Living Status: Still Living Hx Family Asthma: - Sister Hx Family Congestive Heart Failure: No Hx Family Hypertension: Yes Hx Family Stroke: No Hx Cardiac Disease: Yes Hx Family Diabetes: No Age of Onset (years of age): 32 Hx Family Cancer: Yes - Grandmother Lymphoma Physical Exam - Physical Exam General Appearance: Alert, Anxious, No apparent distress Eye Exam: bilateral normal Ears, Nose, Throat: hearing grossly normal, normal ENT inspection, normal pharynx Neck: non-tender, full range of motion, supple Respiratory: chest non-tender, lungs clear, normal breath sounds, no respiratory distress Cardiovascular/Chest: normal peripheral pulses, tachycardia - HR 153;poor r progression Peripheral Pulses: radial,right: 2+, radial,left: 2+ Gastrointestinal/Abdominal: normal bowel sounds, non tender, soft, no organomegaly Back Exam: normal inspection, no CVA tenderness, no vertebral tenderness Neurologic: alert, oriented x 3 Skin Exam: normal color, warm/dry Progress - Progress Progress: 12/04/17 12:42 Vital Signs - 8 hr 12/04/17 12:08 Temperature 98.1 F Pulse Rate [ 144 H left brachial] Respiratory 28 H Rate Blood Pressure 104/67 [left brachial] O2 Sat by Pulse 96 Oximetry - Results/Orders Results/Orders: 12/04/17 12:00 EKG STAT 12/04/17 12:09 URINALYSIS Stat 12/04/17 12:15 EKG STAT 12/04/17 12:40 URINE DRUG SCREEN, 7 ASSAY Stat 12/04/17 13:30 Insulin, Reg.(Human) [HumuLIN R] 250 units Sodium Chl 0.9% 250Ml (Radha) [NS 250ml (RADHA)] 247.5 ml IVPB Q12H Sodium Chloride 0.9% 1000ML [Ns 1000 ml] 1,000 ml IVS ONCE Laboratory Results - last 24 hr 12/04/17 12/04/17 12/04/17 12:27 12:27 12:43 WBC 10.6 RBC 5.15 Hgb 13.7 Hct 42.7 MCV 82.9 MCH 26.6 L MCHC 32.1 L RDW 15.1 H Plt Count 436 H MPV 8.5 Absolute Neuts (auto) 8.50 H Absolute Lymphs (auto) 1.50 Absolute Monos (auto) 0.40 Absolute Eos (auto) 0.10 Absolute Basos (auto) 0.00 Neutrophils % 80.3 H Lymphocytes % 14.1 L Monocytes % 4.2 Eosinophils % 1.1 Basophils % 0.3 PT 11.4 INR 0.980 PTT (SP) 25.6 D-Dimer, Quantitative < 200 pCO2 pO2 HCO3 ABG pH ABG O2 Saturation ABG Base Excess ABG Deoxyhemoglobin Oxyhemoglobin % Carboxyhemoglobin % Methemoglobin % Sat Calc Total Hemoglobin Sodium 132 L Potassium 4.0 Chloride 104 Carbon Dioxide 8 L* D Anion Gap 24.0 H BUN 8 Creatinine 0.94 BUN/Creatinine Ratio 8.5 L Random Glucose 391 H D Serum Osmolality 279.1 Lactic Acid Calcium 9.4 Phosphorus Magnesium 1.6 L Total Bilirubin 1.5 H D Direct Bilirubin < 0.1 Indirect Bilirubin 1.4 H AST 18 ALT 20 Alkaline Phosphatase 146 H Creatine Kinase 83 CK-MB (CK-2) 0.6 CK-MB (CK-2) % Not Reportable Troponin I < 0.02 B-Natriuretic Peptide Serum Total Protein 7.5 Albumin 4.3 Lipase 21 L D 12/04/17 12/04/17 12/04/17 12:43 12:45 13:12 WBC RBC Hgb Hct MCV MCH MCHC RDW Plt Count MPV Absolute Neuts (auto) Absolute Lymphs (auto) Absolute Monos (auto) Absolute Eos (auto) Absolute Basos (auto) Neutrophils % Lymphocytes % Monocytes % Eosinophils % Basophils % PT INR PTT (SP) D-Dimer, Quantitative pCO2 pO2 HCO3 ABG pH ABG O2 Saturation ABG Base Excess ABG Deoxyhemoglobin Oxyhemoglobin % Carboxyhemoglobin % Methemoglobin % Sat Calc Total Hemoglobin Sodium Potassium Chloride Carbon Dioxide Anion Gap BUN Creatinine BUN/Creatinine Ratio Random Glucose Serum Osmolality Lactic Acid 1.7 Calcium Phosphorus 3.0 Magnesium Total Bilirubin Direct Bilirubin Indirect Bilirubin AST ALT Alkaline Phosphatase Creatine Kinase CK-MB (CK-2) CK-MB (CK-2) % Troponin I B-Natriuretic Peptide 40.0 Serum Total Protein Albumin Lipase 12/04/17 13:15 WBC RBC Hgb Hct MCV MCH MCHC RDW Plt Count MPV Absolute Neuts (auto) Absolute Lymphs (auto) Absolute Monos (auto) Absolute Eos (auto) Absolute Basos (auto) Neutrophils % Lymphocytes % Monocytes % Eosinophils % Basophils % PT INR PTT (SP) D-Dimer, Quantitative pCO2 11 L* pO2 127 H* HCO3 4.3 ABG pH 7.200 L* ABG O2 Saturation 99.2 H ABG Base Excess -22.9 ABG Deoxyhemoglobin 0.7 Oxyhemoglobin % 96.0 Carboxyhemoglobin % 1.1 Methemoglobin % Sat 2.2 H Calc Total Hemoglobin 11.2 L Sodium Potassium Chloride Carbon Dioxide Anion Gap BUN Creatinine BUN/Creatinine Ratio Random Glucose Serum Osmolality Lactic Acid Calcium Phosphorus Magnesium Total Bilirubin Direct Bilirubin Indirect Bilirubin AST ALT Alkaline Phosphatase Creatine Kinase CK-MB (CK-2) CK-MB (CK-2) % Troponin I B-Natriuretic Peptide Serum Total Protein Albumin Lipase - EKG/XRAY/CT EKG: Sinus, Tachy, nonspecific ST T wave Chg Comments: HR 153;poor r progression Procedures - Central Line Right Internal jugular vein Central Line Lumen: triple Central Line Procedure Prep: sterile drapes applied, sterile dressing applied Anesthesia: local cc's of anesthesia: 5 Progress: procedure aborted unable to place IJ line Departure - Departure Clinical Impression: Sinus tachycardia DKA, type 1 Qualifiers: Diabetes mellitus complication detail: without coma Qualified Code(s): E10.10 - Type 1 diabetes mellitus with ketoacidosis without coma Time of Disposition: 17:41 Disposition: Transfer to Hospital Condition: Fair Departure Forms: Patient Portal Self Enrollment Referrals: Joby Rangel MD [Primary Care Provider] - 1-2 Weeks Home Medications: Ambulatory Orders Zolpidem Tartrate [Ambien] 10 mg PO BEDTIME 04/09/16 Promethazine Tab [Phenergan Tablet] 25 mg PO Q6H PRN #30 tab 08/20/16 Tizanidine HCl [Zanaflex] 4 mg PO TID 12/18/16 Insulin Detemir [Levemir Pen] 32 units SUBCU DAILY 01/07/17 Insulin Aspart [Novolog] 0 unit SC ACHS PRN 05/15/17 Escitalopram [Lexapro] 10 mg PO BEDTIME #0 08/12/17 HYDROcodone 10MG/APAP 325MG [[place] 10/325] 1 ea PO QID 08/12/17 Metoclopramide HCl [Reglan] 10 mg PO DAILY PRN 09/15/17 Diazepam [Valium] 10 mg PO TID 11/07/17 Mometasone Furoate [Elocon] 0.1 % TOP DAILY 11/07/17 Triamcinolone 0.1% Oint [Kenalog 0.1% Ointment] 1 applic TOP DAILY 11/07/17 Haloperidol [Haldol] 1 - 2 mg PO Q6H PRN #20 tab 11/09/17 Pregabalin [Lyrica] 300 mg PO TID #90 cap 11/09/17 raNITIdine HCL [Zantac] 150 mg PO BID #60 tab 12/01/17 raNITIdine HCL [Zantac] 150 mg PO BID #60 tab 12/01/17 busPIRone HCL [Buspar] 5 mg PO BID #20 tab 12/03/17 Transfer to Outside Facility - Transfer Information Accepting Provider:: Dr. Alan Erickson-Hospitalist Accepting Facility: [facility] Reason for Transfer: required specialist not available
[2017-12-04] MEDS ORDERED: INSULIN, REG.(HUMAN) 100 U/ML VIAL IV ONE (13:23)
[2017-12-04] MEDS ORDERED: INSULIN, REG.(HUMAN) 250 UNITS in SODIUM CHL 0.9% 250ML (AVIVA) 247.5 ML IVPB SCH ×2 (13:30)
[2017-12-04] MEDS ORDERED: SODIUM CHLORIDE 0.9% 1000ML 1,000 ML IVS ONE ×2 (13:30→16:03)
[2017-12-04] MEDS ORDERED: PROMETHAZINE HCL INJ 25 MG/ML VIAL IM ONE (14:00)
[2017-12-04] MEDS ORDERED: SODIUM CHL 0.9% 250ML (AVIVA) 250 ML IVPB ONE (14:03)
[2017-12-04] MEDS ORDERED: SODIUM CHLORIDE 0.9% 500ML 500 ML IVS ONE (14:32)
[2017-12-04] MEDS ORDERED: fentaNYL CITRATE INJ 50 MCG/ML AMP IV ONE (14:47)
[2017-12-04] MEDS ORDERED: LIDOCAINE 1% 10 ML VIAL INJ ONE (15:48)
[2017-12-04] MEDS ORDERED: MIDAZOLAM INJ 5 MG/5 ML VIAL ONE (15:53)
[2017-12-04] MEDS ORDERED: MIDAZOLAM INJ 5 MG/5 ML VIAL IV ONE ×2 (16:04→16:27)
--- NOTE | 2017-12-04 16:53 | RAD ---
EXAM DESCRIPTION: Chest,1 View CLINICAL HISTORY:42 years Female, chest discomfort Comparison: December 01, 2017 FINDINGS: No focal lung consolidation. No pleural effusion. No pneumothorax. Cardiac and mediastinal silhouette is unremarkable. No acute osseous abnormality. Soft tissues are unremarkable. IMPRESSION: No acute findings. No focal lung consolidation. Electronically signed by: Juan Mendez MD 12/04/2017 4:52 PM CDT
[2017-12-04] MEDS ORDERED: KCL 40 MEQ/D5 1/2NS 1,000 ML IVS PRN (17:27)
[2017-12-04 19:21] VITALS: BP 106/68; O2SAT 99
== END 2017-12-04 19:21 | disposition short-term general hospital (02) ==
LOC: ER 11:48
DX: E10.10 Type 1 diabetes mellitus with ketoacidosis without coma (principal); K21.9 Gastro-esophageal reflux disease without esophagitis; J45.909 Unspecified asthma, uncomplicated; Z79.4 Long term (current) use of insulin; Z79.899 Other long term (current) drug therapy
CPT/HCPCS: 36415; 36416; 36600; 71045; 80048; 80076; 80307; 81001; 82550; 82553; 82803; 82805; 82948; 83605; 83690; 83880; 84100; 84484; 85025; 85379; 85610; 85730; 93005; J1200; J1630; J2060; J2250; J2550; J3010; J7030; J7040; J7120

== ENCOUNTER 2017-12-28 17:30 | Emergency (ER) | payer MEDICARE, MEDICAID ==
--- NOTE | 2017-12-28 17:47 | ED.PDOC ---
History of Present Illness - General Chief Complaint: GI Problem Stated Complaint: Nausea, vomiting Time Seen by Provider: 12/28/17 17:46 Exam Limitations: other - left without beng seen - History of Present Illness Initial Comments: LEFT WITHOUT BEING SEEN.NO HPI/EXAM DONE on THIS PATIENT Allergies/Adverse Reactions: Allergies Fish Allergy Allergy (Verified 12/03/17 17:00) peanut Allergy (Severe, Uncoded 12/03/17 17:00) Home Medications: Ambulatory Orders Zolpidem Tartrate [Ambien] 10 mg PO BEDTIME 04/09/16 Promethazine Tab [Phenergan Tablet] 25 mg PO Q6H PRN #30 tab 08/20/16 Tizanidine HCl [Zanaflex] 4 mg PO TID 12/18/16 Insulin Detemir [Levemir Pen] 40 units SUBCU DAILY 01/07/17 Insulin Aspart [Novolog] 0 unit SC ACHS PRN 05/15/17 HYDROcodone 10MG/APAP 325MG [[place] 10/325] 1 ea PO QID 08/12/17 Metoclopramide HCl [Reglan] 10 mg PO DAILY PRN 09/15/17 Mometasone Furoate [Elocon] 0.1 % TOP DAILY 11/07/17 Pregabalin [Lyrica] 300 mg PO TID #90 cap 11/09/17 Alprazolam [Xanax] 1 mg PO BID 12/26/17 DULoxetine HCL [Cymbalta] 30 mg PO DAILY 12/26/17 Mirabegron [Myrbetriq] 50 mg PO DAILY 12/26/17 Review of Systems - Review of Systems Unable to Obtain Due To: other - LWBS Past Medical History (General) - Patient Medical History Hx Seizures: Yes Hx Stroke: No Hx Dementia: No Hx Asthma: Yes Hx of COPD: No Hx Cardiac Disorders: No Hx Congestive Heart Failure: No Hx Pacemaker: No Hx Hypertension: No Hx Thyroid Disease: No Hx Diabetes: Yes Hx Gastroesophageal Reflux: Yes Hx Renal Disease: No Hx Cancer: No Hx of HIV: No Hx Hepatitis C: No Hx MRSA: Yes MRSA Source:: Blood - Vaccination History Hx Tetanus, Diphtheria Vaccination: No Hx Influenza Vaccination: No Hx Pneumococcal Vaccination: No - Social History Hx Tobacco Use: Yes Hx Chewing Tobacco Use: No Hx Alcohol Use: No Hx Substance Use: Yes - remote history Hx Substance Use Treatment: No Hx Depression: No Hx Physical Abuse: No Hx Emotional Abuse: No Hx Suspected Abuse: No - Female History Hx Last Menstrual Period: 11/05/11 Patient : No Family Medical History - Family History Mother Family History: No Known Name: April Age (years): 67 Living Status: Still Living Hx Family Asthma: No Hx Family Congestive Heart Failure: No Hx Family Hypertension: No Hx Family Stroke: No Hx Cardiac Disease: No Hx Family Diabetes: No Hx Family Cancer: No Hx Family;Other: thyroid problems Father Family History: No Known Name: Marlon Age (years): 65 Living Status: Still Living Hx Family Asthma: - Sister Hx Family Congestive Heart Failure: No Hx Family Hypertension: Yes Hx Family Stroke: No Hx Cardiac Disease: Yes Hx Family Diabetes: No Age of Onset (years of age): 32 Hx Family Cancer: Yes - Grandmother Lymphoma Physical Exam - Physical Exam General Appearance: Other - NO PE DONE Departure - Departure Clinical Impression: Procedure and treatment not carried out due to patient leaving prior to being seen by health care provider Time of Disposition: 20:04 Disposition: Left Without Being Seen Departure Forms: ED Discharge - Pt. Copy, Patient Portal Self Enrollment Referrals: Joby Rangel MD [Primary Care Provider] - 1-2 Weeks Home Medications: Ambulatory Orders Zolpidem Tartrate [Ambien] 10 mg PO BEDTIME 04/09/16 Promethazine Tab [Phenergan Tablet] 25 mg PO Q6H PRN #30 tab 08/20/16 Tizanidine HCl [Zanaflex] 4 mg PO TID 12/18/16 Insulin Detemir [Levemir Pen] 40 units SUBCU DAILY 01/07/17 Insulin Aspart [Novolog] 0 unit SC ACHS PRN 05/15/17 HYDROcodone 10MG/APAP 325MG [[place] 10/325] 1 ea PO QID 08/12/17 Metoclopramide HCl [Reglan] 10 mg PO DAILY PRN 09/15/17 Mometasone Furoate [Elocon] 0.1 % TOP DAILY 11/07/17 Pregabalin [Lyrica] 300 mg PO TID #90 cap 11/09/17 Alprazolam [Xanax] 1 mg PO BID 12/26/17 DULoxetine HCL [Cymbalta] 30 mg PO DAILY 12/26/17 Mirabegron [Myrbetriq] 50 mg PO DAILY 12/26/17 Comments: COMPUTER WILL NOT LET ME SIGN THIS DOCUMENT!!!!!!!!!!
== END 2017-12-28 17:46 | disposition left against medical advice (07) ==
LOC: ER 17:30
DX: Z53.21 Procedure and treatment not carried out due to patient leaving prior to being seen by health care provider (principal)

== ENCOUNTER 2017-12-29 10:17 | Emergency (ER) | payer MEDICARE, MEDICAID ==
[2017-12-29 10:23] VITALS: TEMP 98.7
[2017-12-29] MEDS ORDERED: ONDANSETRON ODT 8 MG TAB ONE (10:24)
[2017-12-29] MEDS ORDERED: SODIUM CHLORIDE 0.9% 1000ML 1,000 ML IVS ONE ×2 (10:25→12:08)
[2017-12-29] MEDS ORDERED: ONDANSETRON ODT 8 MG TAB SL ONE (10:25)
--- NOTE | 2017-12-29 10:29 | ED.PDOC ---
History of Present Illness - General Chief Complaint: GI Problem Stated Complaint: Vomiting x 3 days Time Seen by Provider: 12/29/17 10:23 Source: patient Exam Limitations: no limitations - History of Present Illness Initial Comments: patient comes in today with 3 day history of nausea, vomiting, and diarrhea. Patient states she's been unable to keep anything down. She has some Phenergan for gastroparesis that has not helped. Yesterday she was seen in a different emergency room with a gave her nausea medicines in her home. Patient states her blood sugars have been running high in the 400s. Patient is well known to the service as having gastroparesis, uncontrolled diabetes mellitus, and history of drug abuse. Patient denies drug abuse but states she often has difficulties with her stomach. She denies having any recent travel, sick contacts, or questionable by mouth intake. Patient's had no fever but some subjective chills. She's had some cough but no nasal congestion or purulent sputum no shortness of breath and no wheezing. She is states that her chest does hurt like when she has anxiety problems as she is on Xanax and has been unable to keep it down and she requests something for anxiety. EMS BS was in the 267 Timing/Duration: other - 3 days Severity: severe Improving Factors: nothing Worsening Factors: nothing Associated Symptoms: nausea/vomiting Allergies/Adverse Reactions: Allergies Fish Allergy Allergy (Verified 12/03/17 17:00) peanut Allergy (Severe, Uncoded 12/03/17 17:00) Home Medications: Ambulatory Orders Zolpidem Tartrate [Ambien] 10 mg PO BEDTIME 04/09/16 Promethazine Tab [Phenergan Tablet] 25 mg PO Q6H PRN #30 tab 08/20/16 Tizanidine HCl [Zanaflex] 4 mg PO TID 12/18/16 Insulin Detemir [Levemir Pen] 40 units SUBCU DAILY 01/07/17 Insulin Aspart [Novolog] 0 unit SC ACHS PRN 05/15/17 HYDROcodone 10MG/APAP 325MG [[place] 10/325] 1 ea PO QID 08/12/17 Metoclopramide HCl [Reglan] 10 mg PO DAILY PRN 09/15/17 Mometasone Furoate [Elocon] 0.1 % TOP DAILY 11/07/17 Pregabalin [Lyrica] 300 mg PO TID #90 cap 11/09/17 Alprazolam [Xanax] 1 mg PO BID 12/26/17 DULoxetine HCL [Cymbalta] 30 mg PO DAILY 12/26/17 Mirabegron [Myrbetriq] 50 mg PO DAILY 12/26/17 Review of Systems - Review of Systems Constitutional: States: chills, malaise. Denies: fever EENTM: Denies: eye pain, ear pain, nose congestion, throat pain Respiratory: States: cough. Denies: short of breath, wheezing Cardiology: States: chest pain. Denies: edema, palpitations, syncope Genitourinary: States: see HPI Musculoskeletal: States: no symptoms reported Skin: States: no symptoms reported Neurological: States: no symptoms reported Past Medical History (General) - Patient Medical History Hx Seizures: Yes Hx Stroke: No Hx Dementia: No Hx Asthma: Yes Hx of COPD: No Hx Cardiac Disorders: No Hx Congestive Heart Failure: No Hx Pacemaker: No Hx Hypertension: No Hx Thyroid Disease: No Hx Diabetes: Yes - Hx gastroparesis Hx Gastroesophageal Reflux: Yes Hx Renal Disease: No Hx Cancer: No Hx of HIV: No Hx Hepatitis C: No Hx MRSA: Yes MRSA Source:: Blood - Vaccination History Hx Tetanus, Diphtheria Vaccination: No Hx Influenza Vaccination: No Hx Pneumococcal Vaccination: No - Social History Hx Tobacco Use: Yes Hx Chewing Tobacco Use: No Hx Alcohol Use: No Hx Substance Use: Yes - remote history Hx Substance Use Treatment: No Hx Depression: No Hx Physical Abuse: No Hx Emotional Abuse: No Hx Suspected Abuse: No - Female History Hx Last Menstrual Period: 11/05/11 Patient : No Family Medical History - Family History Mother Family History: No Known Name: April Age (years): 67 Living Status: Still Living Hx Family Asthma: No Hx Family Congestive Heart Failure: No Hx Family Hypertension: No Hx Family Stroke: No Hx Cardiac Disease: No Hx Family Diabetes: No Hx Family Cancer: No Hx Family;Other: thyroid problems Father Family History: No Known Name: Marlon Age (years): 65 Living Status: Still Living Hx Family Asthma: - Sister Hx Family Congestive Heart Failure: No Hx Family Hypertension: Yes Hx Family Stroke: No Hx Cardiac Disease: Yes Hx Family Diabetes: No Age of Onset (years of age): 32 Hx Family Cancer: Yes - Grandmother Lymphoma Physical Exam - Physical Exam General Appearance: Anxious, No apparent distress Eye Exam: bilateral normal Ears, Nose, Throat: hearing grossly normal, normal ENT inspection, normal pharynx Neck: non-tender, full range of motion, supple, normal inspection Respiratory: chest non-tender, lungs clear, normal breath sounds, no respiratory distress, no accessory muscle use Cardiovascular/Chest: normal peripheral pulses, regular rate, rhythm, no edema, no gallop, no JVD, no murmur Peripheral Pulses: radial,right: 2+, radial,left: 2+ Gastrointestinal/Abdominal: normal bowel sounds - non distended, TTP diffusely with no rebound and no guarding, soft Back Exam: normal inspection Extremity: normal range of motion Neurologic: alert, oriented x 3 Progress - Progress Progress: 12/29/17 12:09 12/29/17 10:30 EKG STAT 12/29/17 12:08 BOLUS Sodium Chloride 0.9% 1000ML [Ns 1000 ml] 1,000 ml IVS ONCE LORazepam INJ [Ativan Inj] 1 mg IV ONCE ONE Metoclopramide Inj [Reglan Inj] 10 mg IV ONCE ONE Laboratory Results WBC 11.0 K/mm3 (4.8-10.8) H 12/29/17 11:04 RBC 4.99 M/mm3 (4.20-5.40) 12/29/17 11:04 Hgb 12.9 gm/dL (12.0-16.0) 12/29/17 11:04 Hct 39.9 % (36.0-47.0) 12/29/17 11:04 MCV 80.0 fl (81.0-99.0) L 12/29/17 11:04 MCH 25.8 pg (27.0-31.0) L 12/29/17 11:04 MCHC 32.3 g/dL (33.0-37.0) L 12/29/17 11:04 RDW 14.7 % (11.5-14.5) H 12/29/17 11:04 Plt Count 287 K/mm3 (130-400) 12/29/17 11:04 MPV 8.8 fl (7.40-10.4) 12/29/17 11:04 Absolute Neuts (auto) 9.50 K/uL (1.8-6.8) H 12/29/17 11:04 Absolute Lymphs (auto) 1.10 K/uL (1.0-3.4) 12/29/17 11:04 Absolute Monos (auto) 0.30 K/uL (0.2-0.8) 12/29/17 11:04 Absolute Eos (auto) 0.10 K/uL (0.0-0.4) 12/29/17 11:04 Absolute Basos (auto) 0.00 K/uL (0.0-0.1) 12/29/17 11:04 Neutrophils % 86.5 % (42.0-78.0) H 12/29/17 11:04 Lymphocytes % 10.4 % (20.0-50.0) L 12/29/17 11:04 Monocytes % 2.3 % (2.0-9.0) 12/29/17 11:04 Eosinophils % 0.5 % (1.0-5.0) L 12/29/17 11:04 Basophils % 0.3 % (0.0-2.0) 12/29/17 11:04 Sodium 133 mmol/L (135-145) L 12/29/17 11:04 Potassium 3.4 mmol/L (3.6-5.0) L 12/29/17 11:04 Chloride 105 mmol/L (101-111) 12/29/17 11:04 Carbon Dioxide 18 mmol/L (21-31) L 12/29/17 11:04 Anion Gap 13.4 (12-18) 12/29/17 11:04 BUN 11 mg/dL (7-18) 12/29/17 11:04 Creatinine 0.54 mg/dL (0.6-1.3) L 12/29/17 11:04 BUN/Creatinine Ratio 20.4 (10-20) H 12/29/17 11:04 POC Glucose 219 mg/dL (70-105) H 12/29/17 11:04 Random Glucose 235 mg/dL (70-105) H D 12/29/17 11:04 Serum Osmolality 273.4 mOsm/L (275-295) L 12/29/17 11:04 Calcium 9.1 mg/dL (8.4-10.2) 12/29/17 11:04 Total Bilirubin 0.6 mg/dL (0.2-1.0) 12/29/17 11:04 AST 44 IU/L (10-42) H 12/29/17 11:04 ALT 55 IU/L (10-60) 12/29/17 11:04 Alkaline Phosphatase 187 IU/L (42-121) H 12/29/17 11:04 Troponin I < 0.02 ng/mL (0.01-0.05) 12/29/17 11:04 Serum Total Protein 7.3 gm/dL (6.4-8.2) 12/29/17 11:04 Albumin 3.9 g/dl (3.2-5.5) 12/29/17 11:04 Globulin 3.4 gm/dL (2.3-3.5) 12/29/17 11:04 Albumin/Globulin Ratio 1.1 (1.1-1.9) 12/29/17 11:04 Amylase 31 U/L (28-100) 12/29/17 11:04 Lipase 19 U/L (22-51) L 12/29/17 11:04 Urine Color Yellow (Yellow) 12/29/17 11:09 Urine Appearance Sl cloudy (Clear) 12/29/17 11:09 Urine pH 5.0 (4.5-7.8) 12/29/17 11:09 Ur Specific [place] 1.010 (1.005-1.030) 12/29/17 11:09 Urine Protein Negative mg/dL 12/29/17 11:09 Urine Glucose (UA) 500 mg/dL (Negative) H 12/29/17 11:09 Urine Ketones 80 mg/dL (NEGATIVE) H 12/29/17 11:09 Urine Blood Small (Negative) H 12/29/17 11:09 Urine Nitrite Negative 12/29/17 11:09 Urine Bilirubin Negative (NEGATIVE) 12/29/17 11:09 Urine Acetest Negative 12/29/17 11:04 Urine Urobilinogen 0.2 mg/dL (0.2-1.0) 12/29/17 11:09 Ur Leukocyte Esterase Negative (Negative) 12/29/17 11:09 Urine RBC 0-1 /hpf 12/29/17 11:09 Urine WBC 0 /hpf 12/29/17 11:09 Ur Epithelial Cells 5-10 /hpf 12/29/17 11:09 Urine Bacteria Rare 12/29/17 11:09 Urine Opiates Screen Negative ng/mL (1999) 12/29/17 10:25 Urine Barbiturates Negative ng/mL (200) 12/29/17 10:25 Ur Phencyclidine Scrn Negative ng/mL (25) 12/29/17 10:25 U Amphetamin/Meth Scrn Negative ng/mL (1000) 12/29/17 10:25 U Benzodiazepines Scrn Positive ng/mL (200) H 12/29/17 10:25 U Cocaine Metab Screen Negative ng/mL (300) 12/29/17 10:25 U Cannabinoids Screen Negative ng/mL (50) 12/29/17 10:25 Chest Xray negative patient is doing better and has not had an episode of emesis since arrival. She states that she did throw up all of her Xanax and we have given her a 1 time dose of Ativan. At this time we've explained all of her blood work looks normal and she does not appear to be in any DKA or have an acute infection. This is most likely an acute exacerbation of her gastroparesis. As she is very hard to access IV fluid were going to give her another liter of normal saline, some IV Reglan, and a little bit of IV Ativan prior to going home. - EKG/XRAY/CT EKG: Sinus, no ST T wave changes Comments: rate of 99 normal QTc Departure - Departure Clinical Impression: Gastroparesis Disposition: Discharge to Home or Self Care Condition: Good Departure Forms: ED Discharge - Pt. Copy, Patient Portal Self Enrollment Diet: bland diet, diabetic diet Activity: walking as tolerated Referrals: Joby Rangel MD [Primary Care Provider] - 1-2 Weeks Home Medications: Ambulatory Orders Zolpidem Tartrate [Ambien] 10 mg PO BEDTIME 04/09/16 Promethazine Tab [Phenergan Tablet] 25 mg PO Q6H PRN #30 tab 08/20/16 Tizanidine HCl [Zanaflex] 4 mg PO TID 12/18/16 Insulin Detemir [Levemir Pen] 40 units SUBCU DAILY 01/07/17 Insulin Aspart [Novolog] 0 unit SC ACHS PRN 05/15/17 HYDROcodone 10MG/APAP 325MG [[place] 10/325] 1 ea PO QID 08/12/17 Metoclopramide HCl [Reglan] 10 mg PO DAILY PRN 09/15/17 Mometasone Furoate [Elocon] 0.1 % TOP DAILY 11/07/17 Pregabalin [Lyrica] 300 mg PO TID #90 cap 11/09/17 Alprazolam [Xanax] 1 mg PO BID 12/26/17 DULoxetine HCL [Cymbalta] 30 mg PO DAILY 12/26/17 Mirabegron [Myrbetriq] 50 mg PO DAILY 12/26/17 Additional Instructions: follow up with PCP in 4-5 days, return to ER for intractable nausea/emesis, take home Reglan as scheduled.
--- NOTE | 2017-12-29 11:53 | RAD ---
EXAM DESCRIPTION: Chest,1 View CLINICAL HISTORY: 42 years Female, chest pain COMPARISON: 2 view chest dated December 26, 2017. FINDINGS: Heart size and mediastinal and hilar structures appear within normal limits. The lungs appear clear, with resolution of minor linear atelectatic type change in the left base since the last exam. No other significant changes are seen. No pneumothorax is identified on this upright portable film. Regional bony structures appear intact as visualized. IMPRESSION: No radiographic evidence of acute cardiopulmonary disease. Electronically signed by: Jason Metz MD 12/29/2017 11:51 AM CDT
[2017-12-29] MEDS ORDERED: METOCLOPRAMIDE HCL INJ 10 MG/2 ML VIAL IV ONE (12:08)
[2017-12-29 14:06] VITALS: BP 147/80; O2SAT 98
== END 2017-12-29 14:07 | disposition home or self-care (01) ==
LOC: ER 10:17
DX: E11.43 Type 2 diabetes mellitus with diabetic autonomic (poly)neuropathy (principal); K31.84 Gastroparesis; K21.9 Gastro-esophageal reflux disease without esophagitis; J45.909 Unspecified asthma, uncomplicated; Z79.4 Long term (current) use of insulin; F41.9 Anxiety disorder, unspecified; Z79.899 Other long term (current) drug therapy
CPT/HCPCS: 36415; 71045; 80053; 80307; 81001; 81002; 82150; 82948; 83690; 84484; 85025; 93005; J2060; J2765; J7030

== ENCOUNTER 2017-12-31 16:06 | Observation (INO) | payer MEDICARE, MEDICAID ==
--- NOTE | 2017-12-31 16:52 | ED.PDOC ---
History of Present Illness - General Chief Complaint: Abdominal Pain Stated Complaint: N/V;diarrhea abdominal pain Time Seen by Provider: 12/31/17 16:50 Information Source: patient Exam Limitations: no limitations - History of Present Illness Initial Comments: Shwetha Perkins 42 y/o female came to ER with N/V/D since this morning with cramping abdominal pain which started early this am.She had been to several ER the last 3 days for same symptoms and had been to [facility]- for DKA.Has DM1.gastroparesis and anxiety reaction. Abdominal Pain Onset Location: generalized abdomen Pain Radiation: no radiation Quality: moderate, cramping, intermittent Timing/Duration: 7-24 hours Improving Factors: nothing Worsening Factors: eating Associated Symptoms: other - see hpi Review of Systems - Review of Systems Constitutional: States: no symptoms reported EENTM: States: no symptoms reported Respiratory: States: no symptoms reported Cardiology: States: no symptoms reported Gastrointestinal/Abdominal: States: see HPI Genitourinary: States: no symptoms reported Endocrine: States: see HPI All other Systems: Reviewed and Negative Past Medical History (General) - Patient Medical History Hx Seizures: Yes Hx Stroke: No Hx Dementia: No Hx Asthma: Yes Hx of COPD: No Hx Cardiac Disorders: No Hx Congestive Heart Failure: No Hx Pacemaker: No Hx Hypertension: No Hx Thyroid Disease: No Hx Diabetes: Yes - Hx gastroparesis Hx Gastroesophageal Reflux: Yes Hx Renal Disease: No Hx Cancer: No Hx of HIV: No Hx Hepatitis C: No Hx MRSA: Yes MRSA Source:: Blood Surgical History: appendectomy, cholecystectomy, other - hysterectomy - Vaccination History Hx Tetanus, Diphtheria Vaccination: No Hx Influenza Vaccination: No Hx Pneumococcal Vaccination: No - Social History Hx Tobacco Use: Yes Hx Chewing Tobacco Use: No Hx Alcohol Use: No Hx Substance Use: Yes - remote history Hx Substance Use Treatment: No Hx Depression: No Hx Physical Abuse: No Hx Emotional Abuse: No Hx Suspected Abuse: No - Female History Hx Last Menstrual Period: 11/05/11 Patient : No Family Medical History - Family History Mother Family History: No Known Name: April Age (years): 67 Living Status: Still Living Hx Family Asthma: No Hx Family Congestive Heart Failure: No Hx Family Hypertension: No Hx Family Stroke: No Hx Cardiac Disease: No Hx Family Diabetes: No Hx Family Cancer: No Hx Family;Other: thyroid problems Father Family History: No Known Name: Marlon Age (years): 65 Living Status: Still Living Hx Family Asthma: - Sister Hx Family Congestive Heart Failure: No Hx Family Hypertension: Yes Hx Family Stroke: No Hx Cardiac Disease: Yes Hx Family Diabetes: No Age of Onset (years of age): 32 Hx Family Cancer: Yes - Grandmother Lymphoma Physical Exam - Physical Exam General Appearance: Alert, Anxious, No apparent distress Eyes, Ears, Nose, Throat Exam: PERRL/EOMI, normal ENT inspection, pharynx normal Neck: non-tender, full range of motion, supple Respiratory: chest non-tender, lungs clear, normal breath sounds Cardiovascular/Chest: normal peripheral pulses, regular rate, rhythm, no murmur Peripheral Pulses: No deficit Gastrointestinal/Abdominal: normal bowel sounds, soft, no organomegaly, tenderness - tenderness all over no peritoneal signs Back Exam: no CVA tenderness, no vertebral tenderness Extremity: non-tender, no pedal edema, no calf tenderness Neurologic: alert, oriented x 3 Skin Exam: normal color, warm/dry Progress - Progress Progress: 12/31/17 18:30 Vital Signs - 8 hr 12/31/17 12/31/17 16:20 17:22 Pulse Rate [ 93 H 95 H Left Radial] Respiratory 18 18 Rate Blood Pressure 104/74 116/69 [Left Arm] O2 Sat by Pulse 97 96 Oximetry - Results/Orders Results/Orders: 12/31/17 17:00 URINALYSIS Stat 12/31/17 18:24 CLOSTRIDIUM DIFFICILE AG/TOXIN Urgent Laboratory Results - last 24 hr 12/31/17 17:11 WBC 8.9 RBC 5.02 Hgb 13.4 Hct 39.6 MCV 78.9 L MCH 26.6 L MCHC 33.7 RDW 14.4 Plt Count 322 MPV 8.5 Absolute Neuts (auto) 6.20 Absolute Lymphs (auto) 2.00 Absolute Monos (auto) 0.50 Absolute Eos (auto) 0.20 Absolute Basos (auto) 0.10 Neutrophils % 69.3 Lymphocytes % 22.1 Monocytes % 5.5 Eosinophils % 2.1 Basophils % 1.0 PT 11.7 INR 1.010 PTT (SP) 30.2 Sodium 137 Potassium 3.2 L Chloride 108 Carbon Dioxide 20 L Anion Gap 12.2 BUN 9 Creatinine 0.56 L BUN/Creatinine Ratio 16.1 Random Glucose 112 H D Serum Osmolality 273.3 L Calcium 9.3 Magnesium 1.6 L Total Bilirubin 0.6 Direct Bilirubin < 0.1 Indirect Bilirubin 0.5 AST 21 ALT 36 Alkaline Phosphatase 190 H Creatine Kinase 26 CK-MB (CK-2) 1.0 CK-MB (CK-2) % Not Reportable Troponin I < 0.02 Serum Total Protein 7.9 Albumin 4.4 Lipase 25 D Departure - Departure Clinical Impression: Hypokalemia, Hypomagnesemia, Dehydration, moderate Nausea & vomiting Qualifiers: Vomiting type: unspecified Vomiting Intractability: unspecified Qualified Code( s): R11.2 - Nausea with vomiting, unspecified Diarrhea Qualifiers: Diarrhea type: unspecified type Qualified Code(s): R19.7 - Diarrhea, unspecified Time of Disposition: 18:34 Disposition: Admit Patient Condition: Fair Departure Forms: Patient Portal Self Enrollment Referrals: Joby Ragnel MD [Primary Care Provider] - 1-2 Weeks Home Medications: Ambulatory Orders Zolpidem Tartrate [Ambien] 10 mg PO BEDTIME 04/09/16 Promethazine Tab [Phenergan Tablet] 25 mg PO Q6H PRN #30 tab 08/20/16 Tizanidine HCl [Zanaflex] 4 mg PO TID 12/18/16 Insulin Detemir [Levemir Pen] 40 units SUBCU DAILY 01/07/17 Insulin Aspart [Novolog] 0 unit SC ACHS PRN 05/15/17 HYDROcodone 10MG/APAP 325MG [[place] 10/325] 1 ea PO QID 08/12/17 Metoclopramide HCl [Reglan] 10 mg PO DAILY PRN 09/15/17 Mometasone Furoate [Elocon] 0.1 % TOP DAILY 11/07/17 Pregabalin [Lyrica] 300 mg PO TID #90 cap 11/09/17 Alprazolam [Xanax] 1 mg PO BID 12/26/17 DULoxetine HCL [Cymbalta] 30 mg PO DAILY 12/26/17 Mirabegron [Myrbetriq] 50 mg PO DAILY 12/26/17 Decision To Admit - Decistion To Admit Decision to Admit Reason: Admit from ER Decision to Admit Date: 12/31/17 - D/Mohsen Covarrubias -ANP/hospitalist for admit Decision to Admit Time: 18:31
[2017-12-31] MEDS ORDERED: LACTATED RINGERS 1,000 ML IVS ONE (17:00)
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
[2017-12-31] MEDS ORDERED: GLUCAGON INJ 1 MG VIAL SUBCU PRN (19:59)
[2017-12-31] MEDS ORDERED: SODIUM CHLORIDE 0.9% (FLUSH) 10 ML SYG IV PRN (19:59)
[2017-12-31] MEDS ORDERED: DEXTROSE 50% 25 GM/50 ML SYG IV PRN (19:59)
[2017-12-31] MEDS ORDERED: IV SET AND CAP CHANGE INJ INJ SCH (20:00)
[2017-12-31] MEDS ORDERED: MAGNESIUM SULFATE PREMIX 2GM 2 GM in PREMIX BAG 1 BAG IVPB ONE (20:04)
[2017-12-31] MEDS ORDERED: HALOPERIDOL LACTATE INJ 5 MG/ML VIAL IM PRN (20:17)
[2017-12-31] MEDS ORDERED: ENOXAPARIN SODIUM 40 MG/0.4 ML SYG SUBCU SCH (20:30)
[2017-12-31] MEDS ORDERED: PANTOPRAZOLE SODIUM IV 40 MG VIAL IV SCH (20:30)
[2017-12-31] MEDS ORDERED: MAGNESIUM SULFATE PREMIX 2GM 50 ML IVPB ONE (20:38)
[2017-12-31] MEDS: ONDANSETRON INJ 4 MG/2 ML VIAL IV PRN (20:47)
[2017-12-31] MEDS: KCL 20MEQ/0.45% NS 1,000 ML IVS PRN (20:58)
[2017-12-31] MEDS ORDERED: DULoxetine HCL 30 MG CAP PO SCH (21:00)
[2017-12-31] MEDS ORDERED: ZOLPIDEM TARTRATE 5 MG TAB PO SCH (21:00)
[2017-12-31] MEDS ORDERED: TIZANIDINE HCL 8 MG PO SCH (21:00)
[2017-12-31] MEDS ORDERED: NON-FORMULARY MEDICATION 1 EA MIS (Alprazolam [Xanax] 1 MG) PO SCH (21:00)
[2017-12-31] MEDS ORDERED: tiZANidine 4 MG TAB ONE (21:49)
[2017-12-31] MEDS ORDERED: ZOLPIDEM TARTRATE 10 MG TAB ONE (21:50)
[2017-12-31] MEDS ORDERED: ALPRAZolam 0.5 MG TAB ONE (21:50)
[2017-12-31] MEDS: HYDROcodone 10MG/APAP 325MG 1 EA TAB PO SCH (21:53)
[2017-12-31] MEDS: PREGABALIN 100 MG CAP PO SCH (21:54)
[2017-12-31] MEDS: INSULIN LISPRO 100 UNITS/ML PEN SUBCU SCH (21:59)
[2017-12-31] MEDS ORDERED: POTASSIUM CHLORIDE 20 MEQ TAB PO ONE (22:00)
[2017-12-31] MEDS ORDERED: PROMETHAZINE HCL INJ 25 MG/ML VIAL ONE (22:34)
[2017-12-31] MEDS ORDERED: SODIUM CHLORIDE 0.9% 50ML 50 ML ONE (22:35)
[2017-12-31] MEDS: PROMETHAZINE HCL INJ 25 MG in SODIUM CHLORIDE 0.9% 50ML 50 ML IVPB PRN ×2 (22:35→22:41)
[2018-01-01 05:49] VITALS: TEMP 98.1
[2018-01-01] MEDS: ONDANSETRON INJ 4 MG/2 ML VIAL IV PRN (06:29)
[2018-01-01] MEDS ORDERED: ALPRAZolam 0.5 MG TAB ONE (06:42)
[2018-01-01] MEDS ORDERED: tiZANidine 4 MG TAB ONE ×2 (06:42→06:43)
[2018-01-01] MEDS: INSULIN LISPRO 100 UNITS/ML PEN SUBCU SCH ×2 (07:25→12:26)
[2018-01-01] MEDS: KCL 20MEQ/0.45% NS 1,000 ML IVS PRN (08:14)
[2018-01-01] MEDS: PREGABALIN 100 MG CAP PO SCH (08:54)
[2018-01-01] MEDS: HYDROcodone 10MG/APAP 325MG 1 EA TAB PO SCH ×2 (08:54→12:38)
[2018-01-01] MEDS ORDERED: tiZANidine 4 MG TAB PO SCH (09:00)
[2018-01-01] MEDS ORDERED: INSULIN DETEMIR 100 UNITS/ML PEN SUBCU SCH (09:00)
[2018-01-01] MEDS ORDERED: diphenhydrAMINE HCL 25 MG CAP PO PRN (09:00)
[2018-01-01] MEDS ORDERED: ALPRAZolam 0.5 MG TAB PO SCH (09:00)
[2018-01-01] MEDS ORDERED: INSULIN DETEMIR 100 UNITS/ML PEN SUBCU ONE (09:58)
[2018-01-01 10:09] VITALS: BP 127/79; O2SAT 99
[2018-01-01] MEDS ORDERED: ONDANSETRON INJ 4 MG/2 ML VIAL IV PRN (10:40)
--- NOTE | 2018-01-01 13:45 | DS ---
SUPERVISING PHYSICIAN: Can Macdonald MD DISCHARGE DIAGNOSIS: 1. Nausea, vomiting and dehydration. 2. Electrolyte imbalance, mainly hypokalemia and hypomagnesemia, most likely secondary to #1. 3. Diabetes mellitus, type 1, with poor compliance and blood sugar on admission was 112 with no signs or symptoms of diabetic ketoacidosis. 4. Significant history of gastroparesis. 5. Chronic back pain. 6. Tobacco abuse. 7. Chronic obstructive pulmonary disease. HISTORY OF PRESENT ILLNESS: This is a 42-year-old female who presented to the Emergency Room with approximately weakness of nausea, vomiting and dehydration. She had been to the [place] [facility] on Saturday for these same complaints. She came to our Emergency Room on Saturday and then again on date of admission. She has a significant history for diabetic ketoacidosis as well as gastroparesis. She also has anxiety and panic attacks. She sees Dr. Breaux for her chronic pain medications. His practice is in [place]. Her complaints of abdominal pain have been going on for 2 weeks. She also had anxiety and headache. There was no diarrhea, chest pain or shortness of breath. In the Emergency Room, she was given some fluids. Her labs showed a sodium of 137, potassium 3.2, chloride 108, carbon dioxide 20, BUN 9, creatinine 0.56, glucose 112. Serum osmolality 273.3, magnesium 1.6. Liver functions were within normal limits with the exception of her alkaline phosphatase was high at 190. Cardiac enzymes were negative. Lipase was 25. CBC was basically within normal limits. Coags were within normal limits. She was placed in observation as there were concerns for her blood sugars, her gastroparesis and that her condition may deteriorate. HOSPITAL COURSE: Overnight, the patient received fluids. She was placed on a full liquid diet that she tolerated without problem. Her home medications were restarted. She was also given antiemetics with Zofran and Phenergan. IM Haldol was given for her gastroparesis. She had no nausea while in the hospital , but she did have several incidents where she required Zofran and Phenergan. She had magnesium replacement as well as potassium replacement. This morning, her CBC is basically within normal limits and her electrolytes show sodium 138, potassium 3.9, chloride 110, carbon dioxide 22, BUN 6, creatinine 0.43. Serum osmolality was 272.6 with calcium 8.6, magnesium 1.9. Urinalysis was basically within normal limits. Her condition has improved. She had an MRI ordered by Dr. Breaux scheduled for today and it will be rescheduled for tomorrow. Her condition is improved and she will be discharged home. DISCHARGE PLAN: the patient will be discharged home in stable condition. She is to resume her previous medications. I have ordered orally disintegrating Zofran for her nausea. She will have her MRI in the morning and will have followup with Dr. Rangel tomorrow afternoon in [place] at 2:15. It is recommended that she see her GI doctor as soon as possible as she has had several weeks of GI complaints. I believe she sees Dr. Paul in [place]. She is to resume her previous activity as well as her diabetic diet. She is to followup with the hospital or call Dr. Rangel's office for any further problems or complications. DISCHARGE MEDICATIONS: 1. Zolpidem. 2. Phenergan. 3. Zanaflex. 4. Levemir. 5. NovoLog. 6. Hydrocodone. 7. Metoclopramide. 8. Elocon ointment. 9. Xanax. 10. Cymbalta. 11. Diphenhydramine. 12. Lyrica. 13. Zofran. Dr. Macdonald is the collaborating physician and available for consultation. #[id number] [facility]
[2018-01-01] MEDS ORDERED: PANTOPRAZOLE SODIUM IV 40 MG VIAL IV SCH (21:00)
[2018-01-01] MEDS ORDERED: ENOXAPARIN SODIUM 40 MG/0.4 ML SYG SUBCU SCH (21:00)
== END 2018-01-01 13:10 | disposition home or self-care (01) ==
LOC: ER 16:06 → MS 19:35
PROVIDERS: ADMIT Nurse Practitioner Acute Care; ATTEND Nurse Practitioner Acute Care
DX: E86.0 Dehydration (principal); E87.6 Hypokalemia; E83.42 Hypomagnesemia; E10.43 Type 1 diabetes mellitus with diabetic autonomic (poly)neuropathy; K31.84 Gastroparesis; G89.29 Other chronic pain; M54.5 Low back pain; M54.6 Pain in thoracic spine; J44.9 Chronic obstructive pulmonary disease, unspecified; F17.210 Nicotine dependence, cigarettes, uncomplicated; F41.0 Panic disorder [episodic paroxysmal anxiety]; Z79.4 Long term (current) use of insulin; Z79.899 Other long term (current) drug therapy
CPT/HCPCS: 96365; 96366 ×2; 96372 ×2; 96375; 96376; J1630; J2405 ×3; J2550; A4216; J1650; J3475; J3480 ×2; J1815 ×2; J7120; 80048 ×2; 82948 ×3; 36415 ×2; 82550; 82553; 85025 ×2; 85730; 85610; 84484; 81001; 80076; 83690; 83735; 36416 ×3; 99285; G0378

== ENCOUNTER → 2018-01-02 | Outpatient (CLI) | payer MEDICARE, MEDICAID ==
--- NOTE | 2018-01-02 16:43 | MRI ---
EXAM DESCRIPTION: Shoulder,Right: Magnetic Resonance Imaging. CLINICAL HISTORY: PAIN. Right shoulder. COMPARISON: None. TECHNIQUE: Multiplanar, high-field MRI, multiple sequences, without contrast, right shoulder. FINDINGS: Normal signal in the right rotator cuff tendons. Bony insertion regions are unremarkable. No significant muscle atrophy. Normal marrow signal in the humeral head. Large effusion in the subcoracoid bursa. No effusion in the AC joint and questionable subchondral lesion in the acromion facet at the joint with minimal edema abutting the facet. Coracoid ligaments are intact. No significant downsloping of the lateral acromion but type II lateral curvature. Fluid signal in the posterior aspect of the superior glenoid labrum posterior to the bicipital labral anchor and long head biceps tendon. Osteochondral lesion in the lower anterior quadrant of the glenoid fossa with abnormal signal in the adjacent inferior anterior labrum. Subchondral bone of the humeral head is unremarkable. The glenohumeral ligaments are visualized are unremarkable. No glenohumeral joint effusion. IMPRESSION: 1. Osteochondral defect in the lower anterior quadrant of the glenoid fossa with associated tear of the adjacent inferior aspect of the anterior labrum. No glenohumeral joint effusion but loose bodies cannot be excluded. Consider follow-up MR arthrography which would be more sensitive to detect other subtle labral or osteochondral lesions. 2. Abrasion versus tear of the posterior aspect of the superior labrum abutting the posterior bicipital labral anchor. 3. Subcoracoid bursitis. This is adjacent to the osteochondral lesion in the glenoid previously described. No rotator cuff tear. Electronically signed by: Marlon Proctor MD 01/02/2018 4:41 PM CDT
== END ==
LOC: MRI 10:11
PROVIDERS: ATTEND Pain Medicine Interventional Pain Medicine
DX: M25.511 Pain in right shoulder (principal); M75.51 Bursitis of right shoulder

== ENCOUNTER 2018-01-15 10:19 | Emergency (ER) | payer MEDICARE, MEDICAID ==
[~2018-01-15 10:19] MED LIST changes: -HYDROcodone 5MG/APAP 325MG 1 EA TAB ONE; +LACTATED RINGERS 1,000 ML IVS ONE; -LIDOCAINE 1% 10 ML VIAL INJ ONE; -PROPOFOL 200 MG/20 ML VIAL IV ONE; +VANCOMYCIN HCL INJ 1,000 MG VIAL IVPB ONE; +ceFAZolin SODIUM 2 GM in SODIUM CHL 0.9% 100ML MINI-BAG 100 ML IVPB ONE
[2018-01-15] MEDS: PROMETHAZINE HCL 25 MG TAB PO ONE (10:42)
[2018-01-15] MEDS: ALPRAZolam 0.25 MG TAB PO ONE (10:42)
--- NOTE | 2018-01-15 11:15 | RAD ---
EXAM DESCRIPTION: Obstructive series, 3 radiographs CLINICAL HISTORY: nausea, low blood sugar FINDINGS/ IMPRESSION: Normal bowel gas pattern. No organomegaly or obvious abdominal mass lesion Normal cardiomediastinal silhouette. Lungs are clear Electronically signed by: Can Baum MD 01/15/2018 11:14 AM CDT
--- NOTE | 2018-01-15 12:21 | ED.PDOC ---
History of Present Illness - General Chief Complaint: Diabetic Complaint Stated Complaint: low blood sugar Time Seen by Provider: 01/15/18 10:20 Source: patient Exam Limitations: no limitations - History of Present Illness Initial Comments: he patient is a 42-year-old female presenting to the emergency room secondary to an episode of hypoglycemia. She was hyperglycemic just 3 hours earlier and noted on home and taking her insulin. She had originally come up for a carpal tunnel release but her blood sugar was too high. The patient was having some nausea and drowsiness and diaphoresis. When I checked it upon EMS arrival her blood sugar was in the 40s. She did receive some oral glucose. She was allowed to have oral intake here as well and her blood sugars have improved. The patient is a very brittle and labile diabetic. Timing/Duration: 1-3 hours Severity: moderate Improving Factors: medication Worsening Factors: nothing Associated Symptoms: denies symptoms Allergies/Adverse Reactions: Allergies Fish Allergy Allergy (Verified 01/15/18 10:36) peanut Allergy (Severe, Uncoded 01/15/18 10:36) Home Medications: Ambulatory Orders Zolpidem Tartrate [Ambien] 10 mg PO BEDTIME 04/09/16 Promethazine Tab [Phenergan Tablet] 25 mg PO Q6H PRN #30 tab 08/20/16 Tizanidine HCl [Zanaflex] 8 mg PO TID 12/18/16 Insulin Detemir [Levemir Pen] 40 units SUBCU DAILY 01/07/17 Insulin Aspart [Novolog] 0 unit SC ACHS PRN 05/15/17 HYDROcodone 10MG/APAP 325MG [Noble 10/325] 1 ea PO QID 08/12/17 Metoclopramide HCl [Reglan] 10 mg PO BID PRN 09/15/17 Mometasone Furoate [Elocon] 0.1 % TOP DAILY PRN 11/07/17 Alprazolam [Xanax] 1 mg PO BID 12/26/17 DULoxetine HCL [Cymbalta] 30 mg PO BEDTIME 12/26/17 DiphenhydrAMINE HCL [Benadryl] 50 tablet TID PRN 12/31/17 Pregabalin [Lyrica] 300 mg PO BID 12/31/17 Ondansetron [Zofran Odt] 4 mg PO Q4H PRN #30 tab 01/01/18 Review of Systems - Review of Systems Constitutional: States: diaphoresis, malaise EENTM: States: no symptoms reported Respiratory: States: no symptoms reported Cardiology: States: no symptoms reported Gastrointestinal/Abdominal: States: nausea Genitourinary: States: no symptoms reported Musculoskeletal: States: no symptoms reported Skin: States: no symptoms reported Neurological: States: no symptoms reported Endocrine: States: no symptoms reported All other Systems: No Change from Baseline Past Medical History (General) - Patient Medical History Hx Seizures: Yes Hx Stroke: No Hx Dementia: No Hx Asthma: Yes Hx of COPD: No Hx Cardiac Disorders: No Hx Congestive Heart Failure: No Hx Pacemaker: No Hx Hypertension: No Hx Thyroid Disease: No Hx Diabetes: Yes Hx Gastroesophageal Reflux: Yes Hx Renal Disease: No Hx Cancer: No Hx of HIV: No Hx Hepatitis C: No Hx MRSA: Yes MRSA Source:: Blood Surgical History: appendectomy, cholecystectomy, tonsillectomy, Hysterectomy - Vaccination History Hx Tetanus, Diphtheria Vaccination: No Hx Influenza Vaccination: Yes Hx Pneumococcal Vaccination: Yes - Social History Hx Tobacco Use: No Hx Chewing Tobacco Use: No Hx Alcohol Use: No Hx Substance Use: No Hx Substance Use Treatment: No Hx Depression: No Hx Physical Abuse: No Hx Emotional Abuse: No Hx Suspected Abuse: No - Female History Hx Last Menstrual Period: 11/05/11 Patient : No Family Medical History - Family History Mother Family History: No Known Name: April Age (years): 67 Living Status: Still Living Hx Family Asthma: No Hx Family Congestive Heart Failure: No Hx Family Hypertension: No Hx Family Stroke: No Hx Cardiac Disease: No Hx Family Diabetes: No Hx Family Cancer: Yes - skin cancer Hx Family;Other: thyroid problems and seizures Father Family History: No Known Name: Marlon Age (years): 65 Living Status: Still Living Hx Family Asthma: No - Sister Hx Family Congestive Heart Failure: No Hx Family Hypertension: Yes Hx Family Stroke: No Hx Cardiac Disease: Yes Hx Family Diabetes: No Age of Onset (years of age): 32 Hx Family Cancer: No - Grandmother Lymphoma Physical Exam - Physical Exam General Appearance: Alert, Other - mildly drowsy Eye Exam: bilateral normal Ears, Nose, Throat: normal ENT inspection, normal pharynx Neck: full range of motion, supple Respiratory: normal breath sounds, no respiratory distress, no accessory muscle use Cardiovascular/Chest: normal peripheral pulses, no edema, other - sinus tachycardia Peripheral Pulses: radial,right: 2+, radial,left: 2+ Gastrointestinal/Abdominal: soft, other - mild epigastric discomfort palpation Rectal Exam: deferred Back Exam: no CVA tenderness, no vertebral tenderness Extremity: non-tender, no pedal edema, normal capillary refill 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 The patient's blood sugars have corrected with oral intake here. She is mentating normally. She is able to eat normally. Her postprandial blood sugar is 340. She needs to recheck her blood sugar when she gets home in approximately 1 hour and dose her insulin based on that. She does need to keep follow-up with her primary care doctor for continued adjustment of her diabetes medications because she is a very brittle diabetic. Urinalysis is clear at this time. Heart rates have come down with correction of hypoglycemia. The patient needs keep follow-up with her primary care doctor. - Results/Orders Results/Orders: EKG shows sinus tachycardia rate of 103 bpm. There are no acute ST segment changes concerning for ischemia. She hasn't old inferior Q wave. She has poor R-wave progression. These findings are consistent with the EKG from2 weeks ago. Laboratory Results - last 24 hr 01/15/18 01/15/18 10:25 11:30 POC Glucose 75 Urine Color Yellow Urine Appearance Clear Urine pH 6.0 Ur Specific [place] 1.010 Urine Protein Negative Urine Glucose (UA) 100 H Urine Ketones Negative Urine Blood Moderate H Urine Nitrite Negative Urine Bilirubin Negative Urine Urobilinogen 0.2 Ur Leukocyte Esterase Negative Urine RBC 1-3 Urine WBC 0-1 Ur Epithelial Cells 0-1 Urine Bacteria 0 Departure - Departure Clinical Impression: Hypoglycemia Disposition: Discharge to Home or Self Care Condition: Fair Departure Forms: ED Discharge - Pt. Copy, Patient Portal Self Enrollment Diet: diabetic diet Activity: increase activity as tolerated Referrals: Joby Rangel MD [Primary Care Provider] - 1-5 Days Home Medications: Ambulatory Orders Zolpidem Tartrate [Ambien] 10 mg PO BEDTIME 04/09/16 Promethazine Tab [Phenergan Tablet] 25 mg PO Q6H PRN #30 tab 08/20/16 Tizanidine HCl [Zanaflex] 8 mg PO TID 12/18/16 Insulin Detemir [Levemir Pen] 40 units SUBCU DAILY 01/07/17 Insulin Aspart [Novolog] 0 unit SC ACHS PRN 05/15/17 HYDROcodone 10MG/APAP 325MG [Noble 10/325] 1 ea PO QID 08/12/17 Metoclopramide HCl [Reglan] 10 mg PO BID PRN 09/15/17 Mometasone Furoate [Elocon] 0.1 % TOP DAILY PRN 11/07/17 Alprazolam [Xanax] 1 mg PO BID 12/26/17 DULoxetine HCL [Cymbalta] 30 mg PO BEDTIME 12/26/17 DiphenhydrAMINE HCL [Benadryl] 50 tablet TID PRN 12/31/17 Pregabalin [Lyrica] 300 mg PO BID 12/31/17 Ondansetron [Zofran Odt] 4 mg PO Q4H PRN #30 tab 01/01/18 Additional Instructions: the patient is a 42-year-old female presenting to the emergency room secondary to an episode of hypoglycemia. The patient's blood sugars have corrected with oral intake here. She is mentating normally. She is able to eat normally. Her postprandial blood sugar is 340. She needs to recheck her blood sugar when she gets home in approximately 1 hour and dose her insulin based on that. She does need to keep follow-up with her primary care doctor for continued adjustment of her diabetes medications because she is a very brittle diabetic. Urinalysis is clear at this time. Heart rates have come down with correction of hypoglycemia. The patient needs keep follow-up with her primary care doctor.
[2018-01-15 12:52] VITALS: BP 116/77; TEMP 97; O2SAT 96
== END 2018-01-15 12:27 | disposition home or self-care (01) ==
LOC: ER 10:19
DX: E11.649 Type 2 diabetes mellitus with hypoglycemia without coma (principal); J45.909 Unspecified asthma, uncomplicated; K21.9 Gastro-esophageal reflux disease without esophagitis; Z79.4 Long term (current) use of insulin; R00.0 Tachycardia, unspecified
CPT/HCPCS: 36416; 74019; 81001; 82948; 93005; J0690; J7050; J7120; Q0169

== ENCOUNTER 2018-01-19 20:31 | Emergency (ER) | payer MEDICARE, MEDICAID ==
--- NOTE | 2018-01-19 10:43 | ED.PDOC ---
History of Present Illness - General Chief Complaint: Diabetic Complaint Stated Complaint: N/V x 24 hrs, abdominal discomfort Time Seen by Provider: 01/19/18 10:32 Source: patient Exam Limitations: no limitations - History of Present Illness Initial Comments: patient comes in today with nausea and vomiting 2 days. Patient states it started in the morning and she has been unable to keep down medication, liquid, or food. She is having abdominal cramping and pain as well as generalized fatigue. Patient has a long history of intractable gastroparesis from diabetes mellitus. Patient states she is scheduled to have Botox injections later this month and had a follow-up appointment with her doctor on Saturday. Patient's blood sugar was 500 this morning but after insulin went down to the mid 200s per patient. She's had no fever or chills. She denies any cough or cold symptoms. She has no dysuria. Patient has had a hysterectomy and so therefore is not on control. She does smoke and is trying to quit she does not drink or do drugs that she does have a remote history of drug use. Timing/Duration: other - 2 days Severity: severe Improving Factors: nothing Worsening Factors: nothing Associated Symptoms: denies symptoms Allergies/Adverse Reactions: Allergies Fish Allergy Allergy (Verified 01/19/18 10:41) peanut Allergy (Severe, Uncoded 01/15/18 10:36) Home Medications: Ambulatory Orders Zolpidem Tartrate [Ambien] 10 mg PO BEDTIME 04/09/16 Promethazine Tab [Phenergan Tablet] 25 mg PO Q6H PRN #30 tab 08/20/16 Tizanidine HCl [Zanaflex] 8 mg PO TID 12/18/16 Insulin Detemir [Levemir Pen] 40 units SUBCU DAILY 01/07/17 Insulin Aspart [Novolog] 0 unit SC ACHS PRN 05/15/17 HYDROcodone 10MG/APAP 325MG [Benton 10325] 1 ea PO QID 08/12/17 Metoclopramide HCl [Reglan] 10 mg PO BID PRN 09/15/17 Mometasone Furoate [Elocon] 0.1 % TOP DAILY PRN 11/07/17 Alprazolam [Xanax] 1 mg PO BID 12/26/17 DULoxetine HCL [Cymbalta] 30 mg PO BEDTIME 12/26/17 DiphenhydrAMINE HCL [Benadryl] 50 tablet TID PRN 12/31/17 Pregabalin [Lyrica] 300 mg PO BID 12/31/17 Ondansetron [Zofran Odt] 4 mg PO Q4H PRN #30 tab 01/01/18 Review of Systems - Review of Systems Constitutional: States: weakness. Denies: chills, fever EENTM: States: no symptoms reported Respiratory: States: no symptoms reported. Denies: cough, short of breath, wheezing Cardiology: States: no symptoms reported. Denies: chest pain, edema, palpitations Gastrointestinal/Abdominal: States: abdominal pain, nausea, vomiting. Denies: constipation, diarrhea Genitourinary: States: no symptoms reported. Denies: discharge, dysuria, frequency Musculoskeletal: States: no symptoms reported Skin: States: no symptoms reported Past Medical History (General) - Patient Medical History Hx Seizures: Yes Hx Stroke: No Hx Dementia: No Hx Asthma: Yes Hx of COPD: No Hx Cardiac Disorders: No Hx Congestive Heart Failure: No Hx Pacemaker: No Hx Hypertension: No Hx Thyroid Disease: No Hx Diabetes: Yes Hx Gastroesophageal Reflux: Yes Hx Renal Disease: No Hx Cancer: No Hx of HIV: No Hx Hepatitis C: No Hx MRSA: Yes MRSA Source:: Blood - Vaccination History Hx Tetanus, Diphtheria Vaccination: No Hx Influenza Vaccination: Yes Hx Pneumococcal Vaccination: Yes - Social History Hx Tobacco Use: No Hx Chewing Tobacco Use: No Hx Alcohol Use: No Hx Substance Use: No Hx Substance Use Treatment: No Hx Depression: No Hx Physical Abuse: No Hx Emotional Abuse: No Hx Suspected Abuse: No - Female History Hx Last Menstrual Period: 11/05/11 Patient : No Family Medical History - Family History Mother Family History: No Known Name: April Age (years): 67 Living Status: Still Living Hx Family Asthma: No Hx Family Congestive Heart Failure: No Hx Family Hypertension: No Hx Family Stroke: No Hx Cardiac Disease: No Hx Family Diabetes: No Hx Family Cancer: Yes - skin cancer Hx Family;Other: thyroid problems and seizures Father Family History: No Known Name: Marlon Age (years): 65 Living Status: Still Living Hx Family Asthma: - Sister Hx Family Congestive Heart Failure: No Hx Family Hypertension: Yes Hx Family Stroke: No Hx Cardiac Disease: Yes Hx Family Diabetes: No Age of Onset (years of age): 32 Hx Family Cancer: - Grandmother Lymphoma Physical Exam - Physical Exam General Appearance: Agitated, Ill Appearing Eye Exam: bilateral normal Ears, Nose, Throat: hearing grossly normal, normal ENT inspection, normal pharynx Neck: non-tender, full range of motion, supple, normal inspection Respiratory: chest non-tender, lungs clear, normal breath sounds, no respiratory distress Cardiovascular/Chest: normal peripheral pulses, regular rate, rhythm, no edema, no gallop, no JVD, no murmur Peripheral Pulses: radial,right: 2+, radial,left: 2+ Gastrointestinal/Abdominal: normal bowel sounds, soft, other - tender to palpation diffusely with voluntary guarding and no rebound. 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 Will follow up in am with pcp Departure - Departure Clinical Impression: Gastroparesis Disposition: Discharge to Home or Self Care Condition: Good Departure Forms: ED Discharge - Pt. Copy, Patient Portal Self Enrollment Instructions: DI for Diabetes Type 2 Diet: bland diet Activity: walking as tolerated Referrals: Joby Rangel MD [Primary Care Provider] - 1-2 Weeks Home Medications: Ambulatory Orders Zolpidem Tartrate [Ambien] 10 mg PO BEDTIME 04/09/16 Promethazine Tab [Phenergan Tablet] 25 mg PO Q6H PRN #30 tab 08/20/16 Tizanidine HCl [Zanaflex] 8 mg PO TID 12/18/16 Insulin Detemir [Levemir Pen] 40 units SUBCU DAILY 01/07/17 Insulin Aspart [Novolog] 0 unit SC ACHS PRN 05/15/17 HYDROcodone 10MG/APAP 325MG [Benton 10325] 1 ea PO QID 08/12/17 Metoclopramide HCl [Reglan] 10 mg PO BID PRN 09/15/17 Mometasone Furoate [Elocon] 0.1 % TOP DAILY PRN 11/07/17 Alprazolam [Xanax] 1 mg PO BID 12/26/17 DULoxetine HCL [Cymbalta] 30 mg PO BEDTIME 12/26/17 DiphenhydrAMINE HCL [Benadryl] 50 tablet TID PRN 12/31/17 Pregabalin [Lyrica] 300 mg PO BID 12/31/17 Ondansetron [Zofran Odt] 4 mg PO Q4H PRN #30 tab 01/01/18 Additional Instructions: follow up with PCP as scheduled on Saturday. Return to ER for intractable emesis, abdominal pain, dehydration. slow increase in po intake
[~2018-01-19 20:31] MED LIST changes: -BUPIVACAINE 0.25% INJ 30 ML VIAL INJ ONE; -LACTATED RINGERS 1,000 ML IVS ONE; -LACTATED RINGERS 1,000 ML ONE; -LIDOCAINE 1% 50 ML VIAL INJ ONE; +METOCLOPRAMIDE HCL INJ 10 MG/2 ML VIAL IV ONE; +ONDANSETRON INJ 4 MG/2 ML VIAL IV ONE; -SODIUM CHL 0.9% 100ML MINI-BAG 100 ML IVPB ONE; +SODIUM CHLORIDE 0.9% 1000ML 1,000 ML IVS ONE; -VANCOMYCIN HCL INJ 1,000 MG VIAL IVPB ONE; -ceFAZolin SODIUM 1 GM VIAL ONE; -ceFAZolin SODIUM 2 GM in SODIUM CHL 0.9% 100ML MINI-BAG 100 ML IVPB ONE
[2018-01-19 20:51] VITALS: TEMP 98.1
[2018-01-19] MEDS ORDERED: SODIUM CHLORIDE 0.9% 1000ML 1,000 ML IVS ONE ×2 (21:20→23:48)
[2018-01-19] MEDS ORDERED: ONDANSETRON ODT 8 MG TAB SL ONE (21:20)
[2018-01-19] MEDS ORDERED: METOCLOPRAMIDE HCL INJ 10 MG/2 ML VIAL IV ONE (21:21)
[2018-01-19] MEDS ORDERED: MORPHINE SULFATE INJ 10 MG/ML VIAL IV ONE (21:22)
--- NOTE | 2018-01-19 23:33 | ED.PDOC ---
History of Present Illness - General Chief Complaint: GI Problem Stated Complaint: vomiting Time Seen by Provider: 01/19/18 21:09 Information Source: patient, RN notes reviewed, Vital Signs reviewed, old records Exam Limitations: no limitations - History of Present Illness Initial Comments: vomiting Abdominal Pain Onset Location: generalized abdomen Pain Radiation: back Quality: mild, steady Timing/Duration: days Improving Factors: medication - IV meds helped earlier today but wore off Worsening Factors: eating Associated Symptoms: back pain, heartburn, nausea/vomiting, weakness Review of Systems - Review of Systems Constitutional: States: see HPI, weakness. Denies: fever EENTM: States: no symptoms reported Respiratory: States: no symptoms reported Cardiology: States: no symptoms reported, other - hurts her abd when she breathes Gastrointestinal/Abdominal: States: see HPI, abdominal pain, nausea, vomiting Genitourinary: States: no symptoms reported Musculoskeletal: States: back pain, muscle pain Skin: States: no symptoms reported Neurological: States: no symptoms reported Endocrine: States: increased urine Hematologic/Lymphatic: States: no symptoms reported All other Systems: Reviewed and Negative - saw her belt maker helper last week & he plans on administering Botox Past Medical History (General) - Patient Medical History Hx Seizures: Yes Hx Stroke: No Hx Dementia: No Hx Asthma: Yes Hx of COPD: No Hx Cardiac Disorders: No Hx Congestive Heart Failure: No Hx Pacemaker: No Hx Hypertension: No Hx Thyroid Disease: No Hx Diabetes: Yes Hx Gastroesophageal Reflux: Yes Hx Renal Disease: No Hx Cancer: No Hx of HIV: No Hx Hepatitis C: No Hx MRSA: Yes MRSA Source:: Blood Surgical History: appendectomy, cholecystectomy, Hysterectomy - Vaccination History Hx Tetanus, Diphtheria Vaccination: No Hx Influenza Vaccination: Yes Hx Pneumococcal Vaccination: Yes Immunizations Up to Date: No - Social History Hx Tobacco Use: No Hx Chewing Tobacco Use: No Hx Alcohol Use: No Hx Substance Use: No Hx Substance Use Treatment: No Hx Depression: No Hx Physical Abuse: No Hx Emotional Abuse: No Hx Suspected Abuse: No - Activities of Daily Living Patient Lives Alone: No - Female History Patient is a Female of Child Bearing Age (10 -59 yrs old): Yes Hx Last Menstrual Period: 11/05/11 Patient : No Family Medical History - Family History Mother Family History: No Known Name: April Age (years): 67 Living Status: Still Living Hx Family Asthma: No Hx Family Congestive Heart Failure: No Hx Family Hypertension: No Hx Family Stroke: No Hx Cardiac Disease: No Hx Family Diabetes: No Hx Family Cancer: Yes - skin cancer Hx Family;Other: thyroid problems and seizures Father Family History: No Known Name: Marlon Age (years): 65 Living Status: Still Living Hx Family Asthma: - Sister Hx Family Congestive Heart Failure: No Hx Family Hypertension: Yes Hx Family Stroke: No Hx Cardiac Disease: Yes Hx Family Diabetes: No Age of Onset (years of age): 32 Hx Family Cancer: - Grandmother Lymphoma Physical Exam - Physical Exam General Appearance: Alert, Anxious, No apparent distress Eyes, Ears, Nose, Throat Exam: other - normal conj, sclera & moist mucosa Neck: full range of motion, supple, normal inspection Respiratory: lungs clear, normal breath sounds, no respiratory distress Cardiovascular/Chest: regular rate, rhythm, no edema, no JVD Gastrointestinal/Abdominal: soft, no organomegaly, guarding, tenderness Rectal Exam: deferred - normal ROM Extremity: normal range of motion, normal inspection Neurologic: alert, normal mood/affect, oriented x 3 Skin Exam: normal color, warm/dry, other - poor turgor Special Observations: C/O out of proportion Progress - Progress Progress: 01/19/18 23:31 she says she feels no better & has vomited sputum several times since her arrival. 01/19/18 23:32 She does report that her anxiety is making it worse. 01/20/18 00:36 Have spoken with [facility] & - both decline admission at this time. She is feeling somewhat better & hasn't vomited since her Ativan. Will try to manage her as an OP again. Departure - Departure Clinical Impression: Gastroparesis due to DM Vomiting Qualifiers: Vomiting type: cyclical vomiting Vomiting Intractability: intractable Nausea presence: with nausea Qualified Code(s): G43.A1 - Cyclical vomiting, intractable Time of Disposition: 00:40 Disposition: Discharge to Home or Self Care Condition: Fair Departure Forms: ED Discharge - Pt. Copy, Patient Portal Self Enrollment Instructions: DI for Abdominal Pain-Adult, DI for Vomiting -- Adult Diet: diabetic diet Referrals: Joby Rangel MD [Primary Care Provider] - 1-2 Days Home Medications: Ambulatory Orders Zolpidem Tartrate [Ambien] 10 mg PO BEDTIME 04/09/16 Promethazine Tab [Phenergan Tablet] 25 mg PO Q6H PRN #30 tab 08/20/16 Tizanidine HCl [Zanaflex] 8 mg PO TID 12/18/16 Insulin Detemir [Levemir Pen] 40 units SUBCU DAILY 01/07/17 Insulin Aspart [Novolog] 0 unit SC ACHS PRN 05/15/17 HYDROcodone 10MG/APAP 325MG [[place] 10325] 1 ea PO QID 08/12/17 Metoclopramide HCl [Reglan] 10 mg PO BID PRN 09/15/17 Mometasone Furoate [Elocon] 0.1 % TOP DAILY PRN 11/07/17 Alprazolam [Xanax] 1 mg PO BID 12/26/17 DULoxetine HCL [Cymbalta] 30 mg PO BEDTIME 12/26/17 DiphenhydrAMINE HCL [Benadryl] 50 tablet TID PRN 12/31/17 Pregabalin [Lyrica] 300 mg PO BID 12/31/17 Ondansetron [Zofran Odt] 4 mg PO Q4H PRN #30 tab 01/01/18
[2018-01-20 00:09] VITALS: O2SAT 100
[2018-01-20] MEDS ORDERED: MORPHINE SULFATE INJ 10 MG/ML VIAL IV ONE (00:35)
[2018-01-20 01:33] VITALS: BP 107/77
== END 2018-01-20 01:48 | disposition home or self-care (01) ==
LOC: ER 20:31
DX: G43.A1 Cyclical vomiting, in migraine, intractable (principal); E11.43 Type 2 diabetes mellitus with diabetic autonomic (poly)neuropathy; K31.84 Gastroparesis; J45.909 Unspecified asthma, uncomplicated; K21.9 Gastro-esophageal reflux disease without esophagitis; R56.9 Unspecified convulsions; Z90.49 Acquired absence of other specified parts of digestive tract; Z90.710 Acquired absence of both cervix and uterus; Z79.4 Long term (current) use of insulin; Z79.899 Other long term (current) drug therapy
CPT/HCPCS: 36415; 80053; 81001; 83690; 85025; J2060; J2270; J2405; J2765; J7030

== ENCOUNTER → 2018-02-12 | Outpatient (CLI) | payer MEDICARE, MEDICAID | LOC: LAB.O 16:16 | PROVIDERS: ATTEND Orthopaedic Surgery | DX: Z01.818 Encounter for other preprocedural examination (principal) ==

== ENCOUNTER 2018-02-18 18:58 | Emergency (ER) | payer MEDICARE, MEDICAID ==
[2018-02-18] MEDS ORDERED: PROMETHAZINE HCL INJ 25 MG/ML VIAL IM ONE (19:38)
[2018-02-18] MEDS ORDERED: cefTRIAXone SODIUM 1 GM VIAL IM ONE (19:59)
[2018-02-18] MEDS ORDERED: LIDOCAINE 1% 2 ML VIAL INJ ONE (20:05)
[2018-02-18] MEDS ORDERED: PANTOPRAZOLE SODIUM TAB 40 MG PO ONE (20:14)
[2018-02-18] MEDS ORDERED: METOCLOPRAMIDE HCL 5 MG TAB PO ONE (20:14)
--- NOTE | 2018-02-18 20:17 | ED.PDOC ---
History of Present Illness - General Chief Complaint: General Stated Complaint: does not feel "right" Time Seen by Provider: 02/18/18 19:13 Source: patient Exam Limitations: no limitations - History of Present Illness Initial Comments: The patient is a 42-year-old female presenting to the emergency room secondary to feeling mildly queasy. She does have a long-standing history of poorly controlled diabetes along with diabetic gastroparesis. She has run out of her Reglan and has not been taking her Prilosec for concern of interacting with her hydrocodone. The patient did receive Botox injections in her stomach last week. She reports that she thinks that this is helped some. She did take some of her Zofran today. She reports that she did throw up 2 times today. No other symptoms. She has been checking her blood sugar but it has been with a monitor that has proven to be off and she is awaiting her new one coming in. blood sugar here is 118.the patient had her last blood draw less than 5 days ago. She also received an iron infusion at that time. Timing/Duration: unsure Severity: mild Improving Factors: nothing Worsening Factors: nothing Associated Symptoms: malaise, nausea/vomiting Allergies/Adverse Reactions: Allergies Fish Allergy Allergy (Verified 01/19/18 10:41) peanut Allergy (Severe, Uncoded 01/15/18 10:36) Home Medications: Ambulatory Orders Zolpidem Tartrate [Ambien] 10 mg PO BEDTIME 04/09/16 Promethazine Tab [Phenergan Tablet] 25 mg PO Q6H PRN #30 tab 08/20/16 Tizanidine HCl [Zanaflex] 8 mg PO TID 12/18/16 Insulin Detemir [Levemir Pen] 40 units SUBCU DAILY 01/07/17 Insulin Aspart [Novolog] 0 unit SC ACHS PRN 05/15/17 HYDROcodone 10MG/APAP 325MG [Eros 10/325] 1 ea PO QID 08/12/17 Metoclopramide HCl [Reglan] 10 mg PO BID PRN 09/15/17 Mometasone Furoate [Elocon] 0.1 % TOP DAILY PRN 11/07/17 Alprazolam [Xanax] 1 mg PO BID 12/26/17 DULoxetine HCL [Cymbalta] 30 mg PO BEDTIME 12/26/17 DiphenhydrAMINE HCL [Benadryl] 50 tablet TID PRN 12/31/17 Pregabalin [Lyrica] 300 mg PO BID 12/31/17 Ondansetron [Zofran Odt] 4 mg PO Q4H PRN #30 tab 01/01/18 Cephalexin Monohydrate [Keflex] 500 mg PO Q8H #14 cap 02/18/18 Clonazepam [Clonazepam] 02/18/18 Lurasidone HCl [Latuda] 02/18/18 Metoclopramide HCl 10 mg PO Q8HR #30 tab 02/18/18 Review of Systems - Review of Systems Constitutional: States: no symptoms reported EENTM: States: no symptoms reported Respiratory: States: no symptoms reported Cardiology: States: no symptoms reported Gastrointestinal/Abdominal: States: nausea Genitourinary: States: no symptoms reported Musculoskeletal: States: no symptoms reported Skin: States: no symptoms reported Neurological: States: no symptoms reported Endocrine: States: no symptoms reported All other Systems: No Change from Baseline Past Medical History (General) - Patient Medical History Hx Seizures: Yes Hx Stroke: No Hx Dementia: No Hx Asthma: Yes Hx of COPD: No Hx Cardiac Disorders: No Hx Congestive Heart Failure: No Hx Pacemaker: No Hx Hypertension: No Hx Thyroid Disease: No Hx Diabetes: Yes Hx Gastroesophageal Reflux: Yes Hx Renal Disease: No Hx Cancer: No Hx of HIV: No Hx Hepatitis C: No Hx MRSA: Yes MRSA Source:: Blood Surgical History: appendectomy, cholecystectomy, Hysterectomy - Vaccination History Hx Tetanus, Diphtheria Vaccination: No Hx Influenza Vaccination: Yes Hx Pneumococcal Vaccination: Yes - Social History Hx Tobacco Use: Yes Hx Chewing Tobacco Use: No Hx Alcohol Use: No Hx Substance Use: No Hx Substance Use Treatment: No Hx Depression: No Hx Physical Abuse: No Hx Emotional Abuse: No Hx Suspected Abuse: No - Female History Patient is a Female of Child Bearing Age (10 -59 yrs old): No Hx Last Menstrual Period: 11/05/11 Patient : No - Triage Comment ED Triage Comment: multiple complaints. Feels "not right". Pain to stomach from "botox injection for gastroparesis. Nausea, but drinking from cup on arrival. Weak due to diagnosed with low "iron levels" and to start iron infusions next week. Family Medical History - Family History Mother Family History: No Known Name: April Age (years): 67 Living Status: Still Living Hx Family Asthma: No Hx Family Congestive Heart Failure: No Hx Family Hypertension: No Hx Family Stroke: No Hx Cardiac Disease: No Hx Family Diabetes: No Hx Family Cancer: Yes - skin cancer Hx Family;Other: thyroid problems and seizures Father Family History: No Known Name: Marlon Age (years): 65 Living Status: Still Living Hx Family Asthma: - Sister Hx Family Congestive Heart Failure: No Hx Family Hypertension: Yes Hx Family Stroke: No Hx Cardiac Disease: Yes Hx Family Diabetes: No Age of Onset (years of age): 32 Hx Family Cancer: - Grandmother Lymphoma Physical Exam - Physical Exam General Appearance: Alert, Comfortable, No apparent distress, Other - the patient actually does appear well hydrated. She is alert and oriented and in no distress. Eye Exam: bilateral normal Ears, Nose, Throat: hearing grossly normal, normal ENT inspection, normal pharynx Neck: full range of motion, supple Respiratory: lungs clear, normal breath sounds, no respiratory distress, no accessory muscle use Cardiovascular/Chest: normal peripheral pulses, regular rate, rhythm, no edema Peripheral Pulses: radial,right: 2+, radial,left: 2+, dorsalis pedis,right: 2+, dorsalis pedis,left: 2+ Gastrointestinal/Abdominal: non tender, soft Rectal Exam: deferred Back Exam: no CVA tenderness, no vertebral tenderness Extremity: non-tender, normal inspection, no pedal edema, normal capillary refill 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 She does have known diabetic gastroparesis and has been out of her Reglan and has not been taking her Prilosec. She can resume her Prilosec. I will refill the Reglan for a month at 10 mg 3 times daily. She did receive an IM dose of Phenergan here. Urinalysis does show a small urinary tract infection and the patient is going to be written for Keflex for 5 days. She is to start this the day after tomorrow. She did receive a dose of Rocephin for here tonight. She needs to keep herself well-hydrated. urinalysis showed no ketones here tonight. Urine culture will be set up. She needs to control her blood sugars. She needs to keep follow-up for her iron deficiency infusions. ER warnings are given for any significant worsening. She should follow-up with her primary care doctor towards the end of the week. if the patient continues to have significant issues in the near future as she has over the last year than she should be considered for a port due to the frequent need for continued blood draws. Hopefully with correcting her iron deficiency and with the Botox injections for her stomach this will not be required. - Results/Orders Results/Orders: Laboratory Tests 02/18/18 02/18/18 19:44 19:44 POC Glucose 118 H Urine Color Yellow Urine Appearance Clear Urine pH 6.5 Ur Specific [place] >= 1.030 Urine Protein 30 Urine Glucose (UA) 500 H Urine Ketones Negative Urine Blood Moderate H Urine Nitrite Negative Urine Bilirubin Negative Urine Urobilinogen 0.2 Ur Leukocyte Esterase Negative Urine RBC 10-20 H Urine WBC 1-3 Ur Epithelial Cells 5-10 Urine Bacteria 2+ H Urine Mucus Small Departure - Departure Clinical Impression: Diabetic gastroparesis, Cystitis Disposition: Discharge to Home or Self Care Condition: Fair Departure Forms: ED Discharge - Pt. Copy, Patient Portal Self Enrollment Instructions: Gastroparesis (Delayed Gastric Emptying) (DC) Diet: diabetic diet Activity: increase activity as tolerated Referrals: Joby Rangel MD [Primary Care Provider] - 1-2 Weeks Prescriptions: Metoclopramide HCl 10 mg PO Q8HR #30 tab Cephalexin Monohydrate [Keflex] 500 mg PO Q8H #14 cap Home Medications: Ambulatory Orders Zolpidem Tartrate [Ambien] 10 mg PO BEDTIME 04/09/16 Promethazine Tab [Phenergan Tablet] 25 mg PO Q6H PRN #30 tab 08/20/16 Tizanidine HCl [Zanaflex] 8 mg PO TID 12/18/16 Insulin Detemir [Levemir Pen] 40 units SUBCU DAILY 01/07/17 Insulin Aspart [Novolog] 0 unit SC ACHS PRN 10/11/17 HYDROcodone 10MG/APAP 325MG [Eros 10/325] 1 ea PO QID 08/12/17 Metoclopramide HCl [Reglan] 10 mg PO BID PRN 09/15/17 Mometasone Furoate [Elocon] 0.1 % TOP DAILY PRN 11/07/17 Alprazolam [Xanax] 1 mg PO BID 12/26/17 DULoxetine HCL [Cymbalta] 30 mg PO BEDTIME 12/26/17 DiphenhydrAMINE HCL [Benadryl] 50 tablet TID PRN 12/31/17 Pregabalin [Lyrica] 300 mg PO BID 12/31/17 Ondansetron [Zofran Odt] 4 mg PO Q4H PRN #30 tab 01/01/18 Cephalexin Monohydrate [Keflex] 500 mg PO Q8H #14 cap 02/18/18 Clonazepam [Clonazepam] 02/18/18 Lurasidone HCl [Latuda] 02/18/18 Metoclopramide HCl 10 mg PO Q8HR #30 tab 02/18/18 Additional Instructions: the patient is a 42-year-old female presenting to the emergency room secondary to some nausea. She does have known diabetic gastroparesis and has been out of her Reglan and has not been taking her Prilosec. She can resume her Prilosec. I will refill the Reglan for a month at 10 mg 3 times daily. She did receive an IM dose of Phenergan here. Urinalysis does show a small urinary tract infection and the patient is going to be written for Keflex for 5 days. She is to start this the day after tomorrow. She did receive a dose of Rocephin for here tonight. She needs to keep herself well-hydrated. urinalysis showed no ketones here tonight. Blood sugar was 118. Urine culture will be set up. She needs to control her blood sugars. She needs to keep follow-up for her iron deficiency infusions. ER warnings are given for any significant worsening. She should follow-up with her primary care doctor towards the end of the week. if the patient continues to have significant issues in the near future as she has over the last year than she should be considered for a port due to the frequent need for continued blood draws. Hopefully with correcting her iron deficiency and with the Botox injections for her stomach this will not be required.
[2018-02-18 20:19] VITALS: BP 125/66; O2SAT 97
[2018-02-18 20:28] VITALS: TEMP 97.4
== END 2018-02-18 20:28 | disposition home or self-care (01) ==
LOC: ER 18:58
DX: E11.43 Type 2 diabetes mellitus with diabetic autonomic (poly)neuropathy (principal); K31.84 Gastroparesis; K21.9 Gastro-esophageal reflux disease without esophagitis; Z87.891 Personal history of nicotine dependence; J45.909 Unspecified asthma, uncomplicated; D50.9 Iron deficiency anemia, unspecified; Z79.4 Long term (current) use of insulin; Z79.899 Other long term (current) drug therapy
CPT/HCPCS: 81001; 82948; J0696; J2550

== ENCOUNTER 2018-02-28 05:46 | Day surgery (SDC) | payer MEDICARE, MEDICAID ==
[2018-02-28] MEDS ORDERED: LIDOCAINE 1% 10 ML VIAL INJ ONE (05:47)
[2018-02-28] MEDS ORDERED: MIDAZOLAM INJ 2 MG/2 ML VIAL IV ONE (05:47)
[2018-02-28] MEDS ORDERED: PROPOFOL 200 MG/20 ML VIAL IV ONE (05:47)
[2018-02-28] MEDS ORDERED: fentaNYL CITRATE INJ 50 MCG/ML AMP IV ONE (05:47)
[2018-02-28] MEDS ORDERED: diphenhydrAMINE HCL 50 MG/ML VIAL IV ONE (05:47)
[2018-02-28] MEDS ORDERED: LACTATED RINGERS 1,000 ML ONE (05:52)
[2018-02-28] MEDS ORDERED: SODIUM CHL 0.9% 100ML MINI-BAG 100 ML IVPB ONE (05:52)
[2018-02-28] MEDS ORDERED: ceFAZolin SODIUM 1 GM VIAL ONE (05:53)
[2018-02-28] MEDS ORDERED: DEXTROSE 5% 100 ML BAG IVPB ONE ×2 (06:15→07:30)
[2018-02-28] MEDS ORDERED: DEXTROSE 5% 100ML 100 ML IVPB ONE (06:18)
[2018-02-28] MEDS ORDERED: DEXTROSE 5% 100ML 200 ML IVPB ONE (07:35)
[2018-02-28] MEDS ORDERED: BUPIVACAINE 0.25% INJ 30 ML VIAL INJ ONE (09:19)
[2018-02-28] MEDS ORDERED: LIDOCAINE 1% 50 ML VIAL INJ ONE (09:19)
[2018-02-28] MEDS: ceFAZolin SODIUM 1 GM VIAL ONE ×2 (09:50→09:56)
[2018-02-28] MEDS: VANCOMYCIN HCL INJ 1,000 MG VIAL IVPB ONE ×2 (09:50→09:56)
[2018-02-28] MEDS ORDERED: HYDROcodone 5MG/APAP 325MG 1 EA TAB ONE (10:20)
--- NOTE | 2018-02-28 11:11 | OP ---
DATE OF PROCEDURE: 02/28/18 PREOPERATIVE DIAGNOSIS: 1. Carpal tunnel syndrome. POSTOPERATIVE DIAGNOSIS: 1. Carpal tunnel syndrome. PROCEDURE: 1. Right carpal tunnel release. SURGEON: Ramos Maradiaga MD. STOVE MECHANIC: Marlon Dale CST, SA-C. ANESTHESIA: Local with sedation. COMPLICATIONS: None. FINDINGS: Thickening of the transverse carpal ligament and slight narrowing of the median nerve across the carpal tunnel. INDICATION: Shwetha has a history of bilateral hand numbness. She has undergone left carpal tunnel release and because of her failure of conservative measures on the right, she has requested operative intervention. After discussing the risks, benefits and alternatives to that, the patient has given informed consent for carpal tunnel release. PROCEDURE: The patient was brought to the Operating Room and placed in the supine position. Sedation was administered and local anesthetic was injected into the operative area under sterile conditions. After the injection of anesthetic, the arm was sterilely prepped and draped. A longitudinal incision was made directly overlying the transverse carpal ligament and blunt dissection was carried down to the ligament. The transverse carpal ligament was sharply transected along its length and a [place] elevator was used to ensure complete release of the ligament. Once release had been confirmed, the wound was thoroughly irrigated and the wound was closed with Nylon suture. A sterile dressing was placed and the patient was taken to the Day Surgery Unit. POSTOPERATIVE INSTRUCTIONS: The patient has been encouraged to do range of motion of the digits and will followup with us in two days. [facility][id number] [facility]
[2018-02-28 11:26] VITALS: BP 121/76; TEMP 96.8; O2SAT 100
--- NOTE | 2018-03-05 09:24 | HP ---
CHIEF COMPLAINT: Right hand pain and numbness. HISTORY OF PRESENT ILLNESS: Shwetha is a 42-year-old female with a history of pain and numbness in both hands. She has been diagnosed with carpal tunnel syndrome by both clinical and EMG testing. Because of the failure of conservative measures, she has requested operative intervention. After discussing the risks, benefits and alternatives to that, the patient has given informed consent. PAST SURGICAL HISTORY: 1. Cholecystectomy. 2. Appendectomy. 3. Hysterectomy. 4. Bilateral knee arthroscopy. 5. Left carpal tunnel release. MEDICATIONS: 1. [place]. 2. Phenergan. 3. Lyrica. 4. Zanaflex. 5. Lexapro. 6. Ambien. 7. Levemir. 8. NovoLog. ALLERGIES: NO KNOWN DRUG ALLERGIES. CODE STATUS: Full code. IMMUNIZATIONS: Up to date. FAMILY HISTORY: None pertinent to today's complaint. SOCIAL HISTORY: The patient does not drink or use any illicit drugs. She does smoke. REVIEW OF SYSTEMS: Negative except as indicated in the History of Present Illness. PHYSICAL EXAMINATION: VITAL SIGNS: Blood pressure 107/77. Pulse 107. Height 5'4". Weight 155 pounds. MENTAL STATUS: The patient is awake, alert, and is able to give a good history and participate in the physical. The patient is oriented to person, place and time. SKIN: Normal tone and turgor. MUSCULOSKELETAL: She has positive carpal compression test on the right. She maintains full range of motion in all digits. She has positive Tinel's. 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 She has full abduction strength. She has no significant thenar atrophy at this time. ASSESSMENT: 1. Carpal tunnel syndrome. PLAN: The plan at this point is for carpal tunnel release. We have discussed the risks, benefits, and alternatives to that and the patient has given informed consent. #[id number] [facility]
== END 2018-02-28 11:00 | disposition home or self-care (01) ==
LOC: AMB 05:46
PROVIDERS: ATTEND Orthopaedic Surgery
DX: G56.01 Carpal tunnel syndrome, right upper limb (principal); E11.9 Type 2 diabetes mellitus without complications; K21.9 Gastro-esophageal reflux disease without esophagitis; Z79.4 Long term (current) use of insulin; Z79.899 Other long term (current) drug therapy
CPT/HCPCS: 01810; 36415; 36416; 64721; 82948; J0690; J1200; J2250; J3010; J3370; J3490; J7050; J7060; J7120

== ENCOUNTER → 2018-03-27 | Outpatient (CLI) | payer MEDICARE, MEDICAID ==
--- NOTE | 2018-03-28 08:27 | MRI ---
Study: MRI of the Right Knee. Indication: PAIN Technique: Multiplanar, multi sequence MRI of the right knee was obtained without intravenous contrast. Comparison: Radiographs March 20, 2018. Findings: ACL, PCL, MCL, and lateral collateral ligament complex intact. Scattered degenerative signal change medial meniscus without tear. Lateral meniscus intact. Patchy areas of grade 2 and mild grade 3 chondrosis throughout the medial and lateral knee compartments. Subchondral cystic change noted underlying the posterior root attachment medial meniscus. Tendinosis quadriceps tendon insertion with mild interstitial fissuring. Patellar tendon intact. Mild lateral patellar tilt and subluxation. Femoral trochlea shallow. TT-TG distance measures 21 mm. Patchy irregular grade 4 chondral loss of the lateral patellar facet/apex with cortical remodeling and subchondral marrow change. Mild edema superolateral aspect Hoffa's fat pad. Moderate size knee effusion. No acute fracture. Small tricompartmental joint line osteophytes. Impression: Degenerative signal change medial meniscus without tear. Patchy grade 2 and mild grade 3 chondrosis medial and lateral knee compartments. Findings of patellofemoral maltracking with extensive areas of irregular grade 4 chondral loss throughout the lateral and midline aspects of the patella. Moderate size knee effusion. Electronically signed by: German Garza MD 03/28/2018 8:26 AM CDT
== END ==
LOC: MRI 11:00
PROVIDERS: ATTEND Orthopaedic Surgery
DX: S83.206A Unspecified tear of unspecified meniscus, current injury, right knee, initial encounter (principal)

== ENCOUNTER 2018-04-02 02:55 | Emergency (ER) | payer MEDICARE, OTHER ==
[2018-04-02 03:06] VITALS: BP 111/82; TEMP 98; O2SAT 97
--- NOTE | 2018-04-02 03:26 | ED.PDOC ---
History of Present Illness - General Chief Complaint: General Stated Complaint: left arm pain, migraine, chest pain. Time Seen by Provider: 04/02/18 03:22 Source: patient Exam Limitations: no limitations - History of Present Illness Initial Comments: 2 DAYS OF CHEST PAIN AND LUE PAIN. Severity: moderate Improving Factors: nothing Worsening Factors: nothing Associated Symptoms: chest pain, headaches Allergies/Adverse Reactions: Allergies Fish Allergy Allergy (Verified 01/19/18 10:41) peanut Allergy (Severe, Uncoded 01/15/18 10:36) Home Medications: Ambulatory Orders Zolpidem Tartrate [Ambien] 10 mg PO BEDTIME 04/09/16 Promethazine Tab [Phenergan Tablet] 25 mg PO Q6H PRN #30 tab 08/20/16 Tizanidine HCl [Zanaflex] 8 mg PO TID 12/18/16 Insulin Detemir [Levemir Pen] 40 units SUBCU DAILY 01/07/17 Insulin Aspart [Novolog] 0 unit SC ACHS PRN 05/15/17 HYDROcodone 10MG/APAP 325MG [[place] 10/325] 1 ea PO QID 08/12/17 Metoclopramide HCl [Reglan] 10 mg PO BID PRN 09/15/17 Mometasone Furoate [Elocon] 0.1 % TOP DAILY PRN 11/07/17 Alprazolam [Xanax] 1 mg PO BID 12/26/17 DULoxetine HCL [Cymbalta] 30 mg PO BEDTIME 12/26/17 DiphenhydrAMINE HCL [Benadryl] 50 tablet TID PRN 12/31/17 Pregabalin [Lyrica] 300 mg PO BID 12/31/17 Ondansetron [Zofran Odt] 4 mg PO Q4H PRN #30 tab 01/01/18 Cephalexin Monohydrate [Keflex] 500 mg PO Q8H #14 cap 02/18/18 Clonazepam [Clonazepam] 02/18/18 Lurasidone HCl [Latuda] 02/18/18 Metoclopramide HCl 10 mg PO Q8HR #30 tab 02/18/18 Nitrofurantoin Monohydrate Mac [Macrobid] 100 mg PO BID #14 capsule 03/20/18 Epinephrine [Epipen 2-Mikael] 0.3 mg IJ ONCE PRN #1 pack 03/26/18 Famotidine [Pepcid Tab] 20 mg PO BID 4 Days #8 tab 03/26/18 Prednisone 50 mg PO DAILY 4 Days #4 tab 03/26/18 diphenhydrAMINE HCL [Benadryl] 25 mg PO Q6H PRN #12 cap 03/26/18 Review of Systems - Review of Systems Constitutional: States: no symptoms reported EENTM: Denies: ear discharge, nose congestion Respiratory: States: no symptoms reported Cardiology: States: chest pain. Denies: palpitations Gastrointestinal/Abdominal: States: no symptoms reported Genitourinary: States: no symptoms reported Musculoskeletal: States: other - LUE PAIN Skin: States: no symptoms reported Neurological: States: headache Endocrine: States: no symptoms reported Hematologic/Lymphatic: States: no symptoms reported All other Systems: Reviewed and Negative Past Medical History (General) - Patient Medical History Hx Seizures: Yes Hx Stroke: No Hx Dementia: No Hx Asthma: Yes Hx of COPD: No Hx Cardiac Disorders: No Hx Congestive Heart Failure: No Hx Pacemaker: No Hx Hypertension: No Hx Thyroid Disease: No Hx Diabetes: Yes Hx Gastroesophageal Reflux: Yes Hx Renal Disease: No Hx Cancer: No Hx of HIV: No Hx Hepatitis C: No Hx MRSA: Yes MRSA Source:: Blood Surgical History: appendectomy, cholecystectomy, Hysterectomy - Vaccination History Hx Tetanus, Diphtheria Vaccination: No Hx Influenza Vaccination: Yes Hx Pneumococcal Vaccination: Yes - Social History Hx Tobacco Use: Yes Hx Chewing Tobacco Use: No Hx Alcohol Use: No Hx Substance Use: No Hx Substance Use Treatment: No Hx Depression: No Hx Physical Abuse: No Hx Emotional Abuse: No Hx Suspected Abuse: No - Female History Patient is a Female of Child Bearing Age (10 -59 yrs old): No Hx Last Menstrual Period: 11/05/11 Patient : No - Triage Comment ED Triage Comment: Left arm hurts, left hand feels numb. Pains in chest, has migraine. Family Medical History - Family History Mother Family History: No Known Name: April Age (years): 67 Living Status: Still Living Hx Family Asthma: No Hx Family Congestive Heart Failure: No Hx Family Hypertension: No Hx Family Stroke: No Hx Cardiac Disease: No Hx Family Diabetes: No Hx Family Cancer: Yes - skin cancer Hx Family;Other: thyroid problems and seizures Father Family History: No Known Name: Marlon Age (years): 65 Living Status: Still Living Hx Family Asthma: - Sister Hx Family Congestive Heart Failure: No Hx Family Hypertension: Yes Hx Family Stroke: No Hx Cardiac Disease: Yes Hx Family Diabetes: No Age of Onset (years of age): 32 Hx Family Cancer: - Grandmother Lymphoma Physical Exam - Physical Exam General Appearance: Alert, Unkempt Eye Exam: bilateral normal Ears, Nose, Throat: hearing grossly normal, normal ENT inspection, normal pharynx Neck: non-tender, full range of motion, supple Respiratory: chest non-tender, lungs clear, normal breath sounds Cardiovascular/Chest: normal peripheral pulses, regular rate, rhythm, no murmur Peripheral Pulses: radial,right: 2+, radial,left: 2+ Gastrointestinal/Abdominal: normal bowel sounds, non tender, soft Extremity: normal range of motion, non-tender, normal inspection Neurologic: historic preservationist II-XII nml as tested, no motor/sensory deficits, alert, normal mood/affect Skin Exam: normal color, warm/dry Lymphatic: no adenopathy Progress - Progress Progress: 04/02/18 03:32 2 D OF CP AND LUE PAIN - ORDERING TESTS TO R/O ACS. 2 D PAIN THUS ONLY 1 SET OF TROPONIN IS INDICATED. TROP < 0.02. EKG SHOWS NO ACUTE ST CHANGES. SINUS TACHY WITH LEFT AXIS DEVIATION. CXR NEG. ACS IS RULED OUT. SAFE FOR DC TO HOME. Departure - Departure Clinical Impression: Chest pain, non-cardiac Disposition: Discharge to Home or Self Care Condition: Good Departure Forms: ED Discharge - Pt. Copy, Patient Portal Self Enrollment Instructions: Chest Pain That Is Not Caused by the Heart (DC) Diet: resume usual diet Activity: increase activity as tolerated Referrals: Joby Rangel MD [Primary Care Provider] - 1-2 Weeks Home Medications: Ambulatory Orders Zolpidem Tartrate [Ambien] 10 mg PO BEDTIME 04/09/16 Promethazine Tab [Phenergan Tablet] 25 mg PO Q6H PRN #30 tab 08/20/16 Tizanidine HCl [Zanaflex] 8 mg PO TID 12/18/16 Insulin Detemir [Levemir Pen] 40 units SUBCU DAILY 01/07/17 Insulin Aspart [Novolog] 0 unit SC ACHS PRN 05/15/17 HYDROcodone 10MG/APAP 325MG [[place] 10/325] 1 ea PO QID 08/12/17 Metoclopramide HCl [Reglan] 10 mg PO BID PRN 09/15/17 Mometasone Furoate [Elocon] 0.1 % TOP DAILY PRN 11/07/17 Alprazolam [Xanax] 1 mg PO BID 12/26/17 DULoxetine HCL [Cymbalta] 30 mg PO BEDTIME 12/26/17 DiphenhydrAMINE HCL [Benadryl] 50 tablet TID PRN 12/31/17 Pregabalin [Lyrica] 300 mg PO BID 12/31/17 Ondansetron [Zofran Odt] 4 mg PO Q4H PRN #30 tab 01/01/18 Cephalexin Monohydrate [Keflex] 500 mg PO Q8H #14 cap 02/18/18 Clonazepam [Clonazepam] 02/18/18 Lurasidone HCl [Latuda] 02/18/18 Metoclopramide HCl 10 mg PO Q8HR #30 tab 02/18/18 Nitrofurantoin Monohydrate Mac [Macrobid] 100 mg PO BID #14 capsule 03/20/18 Epinephrine [Epipen 2-Mikael] 0.3 mg IJ ONCE PRN #1 pack 03/26/18 Famotidine [Pepcid Tab] 20 mg PO BID 4 Days #8 tab 03/26/18 Prednisone 50 mg PO DAILY 4 Days #4 tab 03/26/18 diphenhydrAMINE HCL [Benadryl] 25 mg PO Q6H PRN #12 cap 03/26/18
[2018-04-02] MEDS ORDERED: MORPHINE SULFATE INJ 10 MG/ML VIAL IV ONE (03:28)
[2018-04-02] MEDS ORDERED: ONDANSETRON INJ 4 MG/2 ML VIAL IV ONE (03:28)
--- NOTE | 2018-04-02 04:48 | RAD ---
EXAM DESCRIPTION: Chest,1 View CLINICAL HISTORY:42 years Female, CP AND L ARM PAIN Comparison: None FINDINGS: No focal lung consolidation. No pleural effusion. No pneumothorax. Cardiac and mediastinal silhouette is unremarkable. No acute osseous abnormality. Soft tissues are unremarkable. IMPRESSION: No acute findings. No focal lung consolidation. Electronically signed by: Joby Rdz DO 04/02/2018 4:47 AM CDT
== END 2018-04-02 05:06 | disposition home or self-care (01) ==
LOC: ER 02:55
DX: R07.89 Other chest pain (principal); R00.0 Tachycardia, unspecified; M79.602 Pain in left arm; R20.0 Anesthesia of skin; R51 Headache; E11.9 Type 2 diabetes mellitus without complications; K21.9 Gastro-esophageal reflux disease without esophagitis; J45.909 Unspecified asthma, uncomplicated; Z87.891 Personal history of nicotine dependence; Z79.4 Long term (current) use of insulin; Z79.899 Other long term (current) drug therapy; Z91.013 Allergy to seafood
CPT/HCPCS: 71045; 84484; 93005; J2270; J2405

== ENCOUNTER 2018-04-11 20:37 | Emergency (ER) | payer MEDICARE, OTHER ==
[2018-04-11] MEDS ORDERED: METOCLOPRAMIDE HCL INJ 10 MG/2 ML VIAL IV ONE (21:12)
[2018-04-11] MEDS ORDERED: KETOROLAC TROMETHAMINE INJ 30 MG/ML VIAL IV ONE (21:12)
[2018-04-11] MEDS ORDERED: SODIUM CHLORIDE 0.9% 1000ML 1,000 ML IVS ONE (21:12)
--- NOTE | 2018-04-11 21:16 | ED.PDOC ---
History of Present Illness - General Chief Complaint: Abdominal Pain Stated Complaint: RLQ ABD PAIN RADIATES TO RIGHT FLANK Time Seen by Provider: 04/11/18 21:11 Information Source: patient, family Exam Limitations: no limitations - History of Present Illness Initial Comments: patient comes in today with 2 day history of worsening right lower quadrant abdominal pain that radiates to her right flank. Patient has history of having both hematuria and urinary tract infections. Patient actually has cystoscopy scheduled with urology in about a week. Patient states she's had fever up to 102 the last 2 days and felt like it broke today but she still had some subjectively. She's had some chills. She had nausea and vomiting for most the day and the pain as a 10/10. Patient has had her appendix out and a full hysterectomy. Patient often has abdominal pain, nausea and vomiting but she states this feels a lot different as it usually that is from her gastroparesis and diabetes mellitus. Patient states this to her feels like it has to do with her bladder again. Patient denies any cough or cold symptoms. She has had a little bit of nasal congestion. Abdominal Pain Onset Location: RLQ Pain Radiation: flank Quality: severe, sharpness Timing/Duration: 24 hours Improving Factors: nothing Worsening Factors: nothing Associated Symptoms: fever/chills, nausea/vomiting Review of Systems - Review of Systems Constitutional: States: chills, fever, malaise EENTM: States: no symptoms reported. Denies: eye pain, ear pain Respiratory: States: no symptoms reported. Denies: cough, short of breath Cardiology: States: no symptoms reported. Denies: chest pain Gastrointestinal/Abdominal: States: see HPI, abdominal pain, diarrhea, nausea, vomiting. Denies: constipation Genitourinary: States: see HPI Past Medical History (General) - Patient Medical History Hx Seizures: Yes Hx Stroke: No Hx Dementia: No Hx Asthma: Yes Hx of COPD: No Hx Cardiac Disorders: No Hx Congestive Heart Failure: No Hx Pacemaker: No Hx Hypertension: No Hx Thyroid Disease: No Hx Diabetes: Yes Hx Gastroesophageal Reflux: Yes Hx Renal Disease: No Hx Cancer: No Hx of HIV: No Hx Hepatitis C: No Hx MRSA: Yes MRSA Source:: Blood Surgical History: Hysterectomy - Vaccination History Hx Tetanus, Diphtheria Vaccination: Yes Hx Influenza Vaccination: Yes Hx Pneumococcal Vaccination: Yes Immunizations Up to Date: Yes - Social History Hx Tobacco Use: Yes Hx Chewing Tobacco Use: No Hx Alcohol Use: No Hx Substance Use: No Hx Substance Use Treatment: No Hx Depression: No Hx Physical Abuse: No Hx Emotional Abuse: No Hx Suspected Abuse: No - Female History Patient is a Female of Child Bearing Age (10 -59 yrs old): No - HYST Hx Last Menstrual Period: 11/05/11 Patient : No Family Medical History - Family History Mother Family History: No Known Name: April Age (years): 67 Living Status: Still Living Hx Family Asthma: No Hx Family Congestive Heart Failure: No Hx Family Hypertension: No Hx Family Stroke: No Hx Cardiac Disease: No Hx Family Diabetes: No Hx Family Cancer: Yes - skin cancer Hx Family;Other: thyroid problems and seizures Father Family History: No Known Name: Marlon Age (years): 65 Living Status: Still Living Hx Family Asthma: - Sister Hx Family Congestive Heart Failure: No Hx Family Hypertension: Yes Hx Family Stroke: No Hx Cardiac Disease: Yes Hx Family Diabetes: No Age of Onset (years of age): 32 Hx Family Cancer: - Grandmother Lymphoma Physical Exam - Physical Exam General Appearance: Alert, Anxious, Restless, Other - holding stomach and sitting up Eyes, Ears, Nose, Throat Exam: PERRL/EOMI, normal ENT inspection, TMs normal, pharynx normal Neck: non-tender, full range of motion, supple, normal inspection Respiratory: chest non-tender, lungs clear, normal breath sounds, no respiratory distress Cardiovascular/Chest: normal peripheral pulses, regular rate, rhythm, no edema, no gallop Peripheral Pulses: No deficit Gastrointestinal/Abdominal: normal bowel sounds, soft, tenderness - TTP to RLQ and R CVA no rebound, no guarding, no distention, other Neurologic: alert, oriented x 3 Progress - Progress Progress: Reglan did help significantly with the emesis but toward all was not sufficient. We've given patient 4 mg of morphine to help with the discomfort until she can follow up with urology on Saturday. In the meantime we'll also give her Pyridium and restart her antibiotics with Macrobid twice a day for 10 days. At this time diagnosis will be cystitis/hematuria with unsure etiology. 04/11/18 22:06 - Results/Orders Results/Orders: 04/11/18 21:12 Sodium Chloride 0.9% 1000ML [Ns 1000 ml] 1,000 ml IVS ONCE Laboratory Results WBC 8.4 K/mm3 (4.8-10.8) 04/11/18 21:12 RBC 5.23 M/mm3 (4.20-5.40) 04/11/18 21:12 Hgb 14.2 gm/dL (12.0-16.0) 04/11/18 21:12 Hct 43.4 % (36.0-47.0) 04/11/18 21:12 MCV 83.0 fl (81.0-99.0) 04/11/18 21:12 MCH 27.1 pg (27.0-31.0) 04/11/18 21:12 MCHC 32.8 g/dL (33.0-37.0) L 04/11/18 21:12 RDW 14.6 % (11.5-14.5) H 04/11/18 21:12 Plt Count 250 K/mm3 (130-400) 04/11/18 21:12 MPV 8.6 fl (7.40-10.4) 04/11/18 21:12 Absolute Neuts (auto) 6.10 K/uL (1.8-6.8) 04/11/18 21:12 Absolute Lymphs (auto) 1.70 K/uL (1.0-3.4) 04/11/18 21:12 Absolute Monos (auto) 0.40 K/uL (0.2-0.8) 04/11/18 21:12 Absolute Eos (auto) 0.10 K/uL (0.0-0.4) 04/11/18 21:12 Absolute Basos (auto) 0.00 K/uL (0.0-0.1) 04/11/18 21:12 Neutrophils % 73.5 % (42.0-78.0) 04/11/18 21:12 Lymphocytes % 20.2 % (20.0-50.0) 04/11/18 21:12 Monocytes % 5.0 % (2.0-9.0) 04/11/18 21:12 Eosinophils % 0.9 % (1.0-5.0) L 04/11/18 21:12 Basophils % 0.4 % (0.0-2.0) 04/11/18 21:12 Sodium 133 mmol/L (135-145) L 04/11/18 21:12 Potassium 4.2 mmol/L (3.6-5.0) 04/11/18 21:12 Chloride 102 mmol/L (101-111) 04/11/18 21:12 Carbon Dioxide 23 mmol/L (21-31) 04/11/18 21:12 Anion Gap 12.2 (12-18) 04/11/18 21:12 BUN 14 mg/dL (7-18) 04/11/18 21:12 Creatinine 0.61 mg/dL (0.6-1.3) 04/11/18 21:12 BUN/Creatinine Ratio 23.0 (10-20) H 04/11/18 21:12 Random Glucose 289 mg/dL (70-105) H 04/11/18 21:12 Serum Osmolality 277.4 mOsm/L (275-295) 04/11/18 21:12 Calcium 9.3 mg/dL (8.4-10.2) 04/11/18 21:12 Total Bilirubin 0.4 mg/dL (0.2-1.0) 04/11/18 21:12 AST 21 IU/L (10-42) 04/11/18 21:12 ALT 38 IU/L (10-60) 04/11/18 21:12 Alkaline Phosphatase 131 IU/L (42-121) H 04/11/18 21:12 Serum Total Protein 7.3 gm/dL (6.4-8.2) 04/11/18 21:12 Albumin 4.1 g/dl (3.2-5.5) 04/11/18 21:12 Globulin 3.2 gm/dL (2.3-3.5) 04/11/18 21:12 Albumin/Globulin Ratio 1.3 (1.1-1.9) 04/11/18 21:12 Urine Color Yellow (Yellow) 04/11/18 21:50 Urine Appearance Clear (Clear) 04/11/18 21:50 Urine pH 5.5 (4.5-7.8) 04/11/18 21:50 Ur Specific [place] 1.010 (1.005-1.030) 04/11/18 21:50 Urine Protein Negative mg/dL 04/11/18 21:50 Urine Glucose (UA) >=1000 mg/dL (Negative) H 04/11/18 21:50 Urine Ketones Negative mg/dL (NEGATIVE) 04/11/18 21:50 Urine Blood Moderate (Negative) H 04/11/18 21:50 Urine Nitrite Negative 04/11/18 21:50 Urine Bilirubin Negative (NEGATIVE) 04/11/18 21:50 Urine Urobilinogen 0.2 mg/dL (0.2-1.0) 04/11/18 21:50 Ur Leukocyte Esterase Negative (Negative) 04/11/18 21:50 Urine RBC 5-10 /hpf H 04/11/18 21:50 Urine WBC 5-10 /hpf H 04/11/18 21:50 Ur Epithelial Cells 1-3 /hpf 04/11/18 21:50 Urine Bacteria 0 04/11/18 21:50 Patient Name: BRADLEY DAVIS Gender: Female Date of : 1975 Referring Physician: ADELAIDA CUMMINS Organization: [facility] Accession Number: [id number] Requested Date: April 11, 2018 21:12 Report Status: Final Requested Procedure: 1 Procedure Description: Abdoment/Pelvis w/o Contrast Modality: CT Findings Reporting MD: Hakeem Colon MD: Not available Dictation Time: Head Of Sales Promotion: Not available Feature Writer Date: EXAM: Abdoment/Pelvis w/o Contrast CLINICAL INDICATION: Abdominal pain. Hematuria COMPARISON: 03/20/2018 TECHNIQUE: The CT scan was done using contiguous axial 5 mm noncontrast sections through the abdomen and pelvis. This exam was performed according to our departmental dose-optimization program, which includes automated exposure control, adjustment of the mA and/or kV according to patient size and/or use of iterative reconstruction technique. FINDINGS: The visualized portions of the lung bases are clear. The gallbladder is surgically absent. The liver, kidneys, adrenal glands, spleen, and pancreas have an unremarkable noncontrast CT appearance. There is no renal or ureteral stone or hydronephrosis. The aorta contains atherosclerotic calcifications without evidence of aneurysm. There are no dilated loops of small bowel. The appendix is surgically absent. There is no free air, free fluid, or abscess. IMPRESSION: No evidence of an acute intra-abdominal process. Departure - Departure Clinical Impression: Cystitis Disposition: Discharge to Home or Self Care Condition: Fair Departure Forms: ED Discharge - Pt. Copy, Patient Portal Self Enrollment Instructions: DI for Abdominal Pain-Adult Diet: regular diet Referrals: Joby Rangel MD [Primary Care Provider] - 1-2 Weeks Home Medications: Ambulatory Orders Zolpidem Tartrate [Ambien] 10 mg PO BEDTIME 04/09/16 Promethazine Tab [Phenergan Tablet] 25 mg PO Q6H PRN #30 tab 08/20/16 Tizanidine HCl [Zanaflex] 8 mg PO TID 12/18/16 Insulin Detemir [Levemir Pen] 40 units SUBCU DAILY 01/07/17 Insulin Aspart [Novolog] 0 unit SC ACHS PRN 05/15/17 HYDROcodone 10MG/APAP 325MG [[place] [address]] 1 ea PO QID 08/12/17 Metoclopramide HCl [Reglan] 10 mg PO BID PRN 09/15/17 Mometasone Furoate [Elocon] 0.1 % TOP DAILY PRN 11/07/17 Alprazolam [Xanax] 1 mg PO BID 12/26/17 DULoxetine HCL [Cymbalta] 30 mg PO BEDTIME 12/26/17 DiphenhydrAMINE HCL [Benadryl] 50 tablet TID PRN 12/31/17 Pregabalin [Lyrica] 300 mg PO BID 12/31/17 Ondansetron [Zofran Odt] 4 mg PO Q4H PRN #30 tab 01/01/18 Cephalexin Monohydrate [Keflex] 500 mg PO Q8H #14 cap 02/18/18 Clonazepam [Clonazepam] 02/18/18 Lurasidone HCl [Latuda] 02/18/18 Metoclopramide HCl 10 mg PO Q8HR #30 tab 02/18/18 Nitrofurantoin Monohydrate Mac [Macrobid] 100 mg PO BID #14 capsule 03/20/18 Epinephrine [Epipen 2-Mikael] 0.3 mg IJ ONCE PRN #1 pack 03/26/18 Famotidine [Pepcid Tab] 20 mg PO BID 4 Days #8 tab 03/26/18 Prednisone 50 mg PO DAILY 4 Days #4 tab 03/26/18 diphenhydrAMINE HCL [Benadryl] 25 mg PO Q6H PRN #12 cap 03/26/18 Nitrofurantoin Monohydrate Mac [Macrobid] 100 mg PO BID #20 capsule 04/11/18 Phenazopyridine HCl [Pyridium] 200 mg PO TID #6 tab 04/11/18 Additional Instructions: follow up with PCP or Urology in 3-4 days. Return to ER for worsening pain, intractable emesis. Comments: patient had been unable to keep down her pain medications at home so one dose of morphine was given here. She has cystitis and is in the middle of work up with Urology for the hematuria and recurrent pain. Macrobid on med list had actually been completed so was restarted today.
--- NOTE | 2018-04-11 21:50 | CT ---
EXAM: Abdoment/Pelvis w/o Contrast CLINICAL INDICATION: Abdominal pain. Hematuria COMPARISON: 03/20/2018 TECHNIQUE: The CT scan was done using contiguous axial 5 mm noncontrast sections through the abdomen and pelvis. This exam was performed according to our departmental dose-optimization program, which includes automated exposure control, adjustment of the mA and/or kV according to patient size and/or use of iterative reconstruction technique. FINDINGS: The visualized portions of the lung bases are clear. The gallbladder is surgically absent. The liver, kidneys, adrenal glands, spleen, and pancreas have an unremarkable noncontrast CT appearance. There is no renal or ureteral stone or hydronephrosis. The aorta contains atherosclerotic calcifications without evidence of aneurysm. There are no dilated loops of small bowel. The appendix is surgically absent. There is no free air, free fluid, or abscess. IMPRESSION: No evidence of an acute intra-abdominal process. Electronically signed by: Hakeem Colon MD 04/11/2018 9:49 PM CDT
[2018-04-11] MEDS ORDERED: MORPHINE SULFATE INJ 10 MG/ML VIAL IV ONE (22:09)
[2018-04-11] MEDS ORDERED: NITROFURANTOIN MONOHYDRATE MAC 100 MG CAP PO ONE (22:09)
[2018-04-11 22:24] VITALS: BP 124/74; TEMP 98.2; O2SAT 98
== END 2018-04-11 22:25 | disposition home or self-care (01) ==
LOC: ER 20:37
DX: N30.90 Cystitis, unspecified without hematuria (principal); R11.2 Nausea with vomiting, unspecified; R19.7 Diarrhea, unspecified; J45.909 Unspecified asthma, uncomplicated; E11.9 Type 2 diabetes mellitus without complications; K21.9 Gastro-esophageal reflux disease without esophagitis; Z87.440 Personal history of urinary (tract) infections; Z87.891 Personal history of nicotine dependence; Z87.19 Personal history of other diseases of the digestive system; Z90.49 Acquired absence of other specified parts of digestive tract
CPT/HCPCS: 36415; 74176; 80053; 81001; 85025; J1885; J2270; J2765; J7030

== ENCOUNTER 2018-04-21 15:31 | Emergency (ER) | payer MEDICARE, MEDICAID ==
[2018-04-21 15:45] VITALS: TEMP 96.8
[2018-04-21] MEDS ORDERED: ONDANSETRON INJ 4 MG/2 ML VIAL IV ONE (16:09)
[2018-04-21] MEDS ORDERED: SODIUM CHLORIDE 0.9% (FLUSH) 10 ML SYG IV PRN (16:09)
[2018-04-21] MEDS ORDERED: SODIUM CHLORIDE 0.9% 1000ML 1,000 ML IVS ONE ×2 (16:09→18:19)
[2018-04-21] MEDS ORDERED: KETOROLAC TROMETHAMINE INJ 30 MG/ML VIAL IV ONE (16:09)
--- NOTE | 2018-04-21 16:22 | ED.PDOC ---
History of Present Illness - General Chief Complaint: GI Problem Stated Complaint: right sided abdominal pain Time Seen by Provider: 04/21/18 16:09 Information Source: patient Exam Limitations: no limitations - History of Present Illness Initial Comments: PT REPORTS 3 DAY HISTORY OF NAUSEA VOMITING, AND DIARRHEA ASSOCIATED WITH PROGRESSIVELY WORSENING R FLANK PAIN. PT STATES THAT SHE RECENTLY FINISHED TREATMENT FOR A UTI BUT IS STILL HAVING SYMPTOMS OF DYSURIA. PT ALSO REPORTS RECENT DIFFICULTY MANAGING BLOOD GLUCOSE DUE TO THE INABILITY TO TOLERATE FOOD. PT DENIES FEVER, CHILLS. Abdominal Pain Onset Location: RLQ Pain Radiation: flank Quality: dull, steady Associated Symptoms: back pain, diarrhea, nausea/vomiting Review of Systems - Review of Systems Constitutional: Denies: chills, fever EENTM: Denies: nose congestion, throat pain Respiratory: Denies: cough, short of breath Cardiology: Denies: chest pain, palpitations Gastrointestinal/Abdominal: States: see HPI, abdominal pain, diarrhea, nausea, vomiting Genitourinary: States: dysuria, hematuria Musculoskeletal: States: back pain. Denies: joint pain Skin: Denies: dryness, lesions Neurological: Denies: headache, numbness Endocrine: States: no symptoms reported Hematologic/Lymphatic: States: no symptoms reported Past Medical History (General) - Patient Medical History Hx Seizures: Yes Hx Stroke: No Hx Dementia: No Hx Asthma: Yes Hx of COPD: No Hx Cardiac Disorders: No Hx Congestive Heart Failure: No Hx Pacemaker: No Hx Hypertension: No Hx Thyroid Disease: No Hx Diabetes: Yes Hx Gastroesophageal Reflux: Yes Hx Renal Disease: No Hx Cancer: No Hx of HIV: No Hx Hepatitis C: No Hx MRSA: Yes MRSA Source:: Blood Surgical History: appendectomy, cholecystectomy, Hysterectomy - Vaccination History Hx Tetanus, Diphtheria Vaccination: Yes Hx Influenza Vaccination: Yes Hx Pneumococcal Vaccination: Yes - Social History Hx Tobacco Use: Yes Hx Chewing Tobacco Use: No Hx Alcohol Use: No Hx Substance Use: No Hx Substance Use Treatment: No Hx Depression: No Hx Physical Abuse: No Hx Emotional Abuse: No Hx Suspected Abuse: No - Female History Hx Last Menstrual Period: 11/05/11 Patient : No Family Medical History - Family History Mother Family History: No Known Name: April Age (years): 67 Living Status: Still Living Hx Family Asthma: No Hx Family Congestive Heart Failure: No Hx Family Hypertension: No Hx Family Stroke: No Hx Cardiac Disease: No Hx Family Diabetes: No Hx Family Cancer: Yes - skin cancer Hx Family;Other: thyroid problems and seizures Father Family History: No Known Name: Marlon Age (years): 65 Living Status: Still Living Hx Family Asthma: - Sister Hx Family Congestive Heart Failure: No Hx Family Hypertension: Yes Hx Family Stroke: No Hx Cardiac Disease: Yes Hx Family Diabetes: No Age of Onset (years of age): 32 Hx Family Cancer: - Grandmother Lymphoma Physical Exam - Physical Exam General Appearance: Alert, Obvious distress, Well Developed, Well Groomed, Well Hydrated Eyes, Ears, Nose, Throat Exam: normal ENT inspection Neck: normal inspection Respiratory: lungs clear, normal breath sounds, no respiratory distress Cardiovascular/Chest: regular rate, rhythm, no murmur Gastrointestinal/Abdominal: tenderness - DIFFUSE, WORSE IN THE RLQ Back Exam: CVA tenderness (R) Extremity: no pedal edema Neurologic: alert, normal mood/affect, oriented x 3 Skin Exam: normal color, warm/dry Progress - Progress Progress: 04/21/18 17:50 PT REPORTS ONLY MINIMAL IMPROVEMENT IN PAIN AFTER IV TORADOL. IV MORPHINE ORDERED. LABS AND DIAGNOSTICS DISCUSSED. PLAN TO TRANSFER DISCUSSED. PT AGREES WITH PLAN. - Results/Orders Results/Orders: Laboratory Tests 04/21/18 04/21/18 04/21/18 16:15 16:15 16:15 WBC 7.7 RBC 5.55 H Hgb 15.1 Hct 46.5 MCV 83.9 MCH 27.2 MCHC 32.4 L RDW 14.3 Plt Count 276 MPV 9.2 Absolute Neuts (auto) 5.70 Absolute Lymphs (auto) 1.50 Absolute Monos (auto) 0.40 Absolute Eos (auto) 0.10 Absolute Basos (auto) 0.00 Neutrophils % 73.6 Lymphocytes % 20.0 Monocytes % 5.0 Eosinophils % 1.0 Basophils % 0.4 Sodium 134 L Potassium 4.0 Chloride 105 Carbon Dioxide 14 L* Anion Gap 19.0 H BUN 8 Creatinine 0.49 L BUN/Creatinine Ratio 16.3 Random Glucose 218 H Serum Osmolality 273.2 L Calcium 9.5 Total Bilirubin 1.0 Direct Bilirubin 0.1 Indirect Bilirubin 0.9 H AST 20 ALT 31 Alkaline Phosphatase 120 Serum Total Protein 7.6 Albumin 4.4 Lipase 33 Serum HCG, Qual Negative Urine Color Urine Appearance Urine pH Ur Specific [place] Urine Protein Urine Glucose (UA) Urine Ketones Urine Blood Urine Nitrite Urine Bilirubin Urine Urobilinogen Ur Leukocyte Esterase Urine RBC Urine WBC Ur Epithelial Cells Urine Bacteria Serum Ketones 04/21/18 04/21/18 16:55 Unknown WBC RBC Hgb Hct MCV MCH MCHC RDW Plt Count MPV Absolute Neuts (auto) Absolute Lymphs (auto) Absolute Monos (auto) Absolute Eos (auto) Absolute Basos (auto) Neutrophils % Lymphocytes % Monocytes % Eosinophils % Basophils % Sodium Potassium Chloride Carbon Dioxide Anion Gap BUN Creatinine BUN/Creatinine Ratio Random Glucose Serum Osmolality Calcium Total Bilirubin Direct Bilirubin Indirect Bilirubin AST ALT Alkaline Phosphatase Serum Total Protein Albumin Lipase Serum HCG, Qual Urine Color Yellow Urine Appearance Cloudy H Urine pH 5.5 Ur Specific [place] >= 1.030 Urine Protein 30 Urine Glucose (UA) 250 H Urine Ketones >=160 Urine Blood Moderate H Urine Nitrite Negative Urine Bilirubin Moderate Urine Urobilinogen 0.2 Ur Leukocyte Esterase Negative Urine RBC 3-5 H Urine WBC 0 Ur Epithelial Cells 1-3 Urine Bacteria 1+ Serum Ketones Moderate Departure - Departure Clinical Impression: DKA (diabetic ketoacidoses), Nausea & vomiting, Diarrhea Time of Disposition: 18:04 Disposition: Transfer to Hospital Condition: Fair Departure Forms: ED Discharge - Pt. Copy, Patient Portal Self Enrollment Referrals: Joby Rangel MD [Primary Care Provider] - 1-2 Weeks Home Medications: Ambulatory Orders Zolpidem Tartrate [Ambien] 10 mg PO BEDTIME 04/09/16 Promethazine Tab [Phenergan Tablet] 25 mg PO Q6H PRN #30 tab 08/20/16 Tizanidine HCl [Zanaflex] 8 mg PO TID 12/18/16 Insulin Detemir [Levemir Pen] 40 units SUBCU DAILY 01/07/17 Insulin Aspart [Novolog] 0 unit SC ACHS PRN 05/15/17 HYDROcodone 10MG/APAP 325MG [[place] 10/325] 1 ea PO QID 08/12/17 Metoclopramide HCl [Reglan] 10 mg PO BID PRN 09/15/17 Mometasone Furoate [Elocon] 0.1 % TOP DAILY PRN 11/07/17 Alprazolam [Xanax] 1 mg PO BID 12/26/17 DULoxetine HCL [Cymbalta] 30 mg PO BEDTIME 12/26/17 DiphenhydrAMINE HCL [Benadryl] 50 tablet TID PRN 12/31/17 Pregabalin [Lyrica] 300 mg PO BID 12/31/17 Ondansetron [Zofran Odt] 4 mg PO Q4H PRN #30 tab 01/01/18 Cephalexin Monohydrate [Keflex] 500 mg PO Q8H #14 cap 02/18/18 Clonazepam [Clonazepam] 02/18/18 Lurasidone HCl [Latuda] 02/18/18 Metoclopramide HCl 10 mg PO Q8HR #30 tab 02/18/18 Nitrofurantoin Monohydrate Mac [Macrobid] 100 mg PO BID #14 capsule 03/20/18 Epinephrine [Epipen 2-Mikael] 0.3 mg IJ ONCE PRN #1 pack 03/26/18 Famotidine [Pepcid Tab] 20 mg PO BID 4 Days #8 tab 03/26/18 Prednisone 50 mg PO DAILY 4 Days #4 tab 03/26/18 diphenhydrAMINE HCL [Benadryl] 25 mg PO Q6H PRN #12 cap 03/26/18 Nitrofurantoin Monohydrate Mac [Macrobid] 100 mg PO BID #20 capsule 04/11/18 Phenazopyridine HCl [Pyridium] 200 mg PO TID #6 tab 04/11/18 Transfer to Outside Facility - Transfer Information Accepting Provider:: DR. TAN Accepting Facility: [facility] Reason for Transfer: specialized care not available
[2018-04-21] MEDS ORDERED: MORPHINE SULFATE INJ 10 MG/ML VIAL IV ONE (18:00)
[2018-04-21 19:25] VITALS: BP 108/75; O2SAT 98
== END 2018-04-21 19:13 | disposition short-term general hospital (02) ==
LOC: ER 15:31
DX: E11.10 Type 2 diabetes mellitus with ketoacidosis without coma (principal); R11.2 Nausea with vomiting, unspecified; R19.7 Diarrhea, unspecified; R30.0 Dysuria; R10.31 Right lower quadrant pain; R31.9 Hematuria, unspecified; K21.9 Gastro-esophageal reflux disease without esophagitis; J45.909 Unspecified asthma, uncomplicated; Z79.4 Long term (current) use of insulin; Z79.899 Other long term (current) drug therapy; Z87.891 Personal history of nicotine dependence
CPT/HCPCS: 36415; 80048; 80076; 81001; 82009; 83690; 84703; 85025; J1885; J2270; J2405; J7030

== ENCOUNTER 2018-05-03 21:12 | Emergency (ER) | payer MEDICARE, MEDICAID ==
--- NOTE | 2018-05-03 14:41 | ED.PDOC ---
History of Present Illness - General Chief Complaint: Diabetic Complaint Stated Complaint: n/v, hyperglycemia Time Seen by Provider: 05/03/18 14:24 Source: patient Exam Limitations: no limitations - History of Present Illness Initial Comments: patient comes in today for return of abdominal pain to the right lower quadrant. Patient has been in here intermittently for the past couple of months with right lower quadrant abdominal pain and recurrent urinary tract infections. Patient states the pain started bad again this morning with multiple episodes of emesis after attempting to eat. Patient has no diarrhea and has been having normal bowel movements. She has no vaginal bleeding. She has had an appendectomy in the past. Patient has been told that she is having recurrent bladder infections have not gotten better with Macrobid. She does have a urology consult pending. Patient also has diabetes mellitus that is insulin-dependent and has a blood sugar greater than 400 this morning. Patient does state that she got a steroid shot from her pain doctor yesterday. Patient has no fever on arrival but states subjectively she felt like she was febrile and having some chills as well as some malaise. Patient has continuous dysuria Timing/Duration: 24 hours Severity: severe Improving Factors: nothing Worsening Factors: eating, movement Associated Symptoms: fever/chills, nausea/vomiting Allergies/Adverse Reactions: Allergies Fish Allergy Allergy (Verified 01/19/18 10:41) peanut Allergy (Severe, Uncoded 01/15/18 10:36) Home Medications: Ambulatory Orders Zolpidem Tartrate [Ambien] 10 mg PO BEDTIME 04/09/16 Tizanidine HCl [Zanaflex] 8 mg PO TID 12/18/16 Insulin Detemir [Levemir Pen] 40 units SUBCU DAILY 01/07/17 Insulin Aspart [Novolog] 0 unit SC ACHS PRN 05/15/17 HYDROcodone 10MG/APAP 325MG [[place] 10/325] 1 ea PO QID 08/12/17 Metoclopramide HCl [Reglan] 10 mg PO BID PRN 09/15/17 Mometasone Furoate [Elocon] 0.1 % TOP DAILY PRN 11/07/17 DiphenhydrAMINE HCL [Benadryl] 50 tablet TID PRN 12/31/17 Pregabalin [Lyrica] 300 mg PO BID 12/31/17 Ondansetron [Zofran Odt] 4 mg PO Q4H PRN #30 tab 01/01/18 Lurasidone HCl [Latuda] 80 mg PO DAILY 02/18/18 Metoclopramide HCl 10 mg PO Q8HR #30 tab 02/18/18 Nitrofurantoin Monohydrate Mac [Macrobid] 100 mg PO BID #14 capsule 03/20/18 Epinephrine [Epipen 2-Mikael] 0.3 mg IJ ONCE PRN #1 pack 03/26/18 Famotidine [Pepcid Tab] 20 mg PO BID 4 Days #8 tab 03/26/18 diphenhydrAMINE HCL [Benadryl] 25 mg PO Q6H PRN #12 cap 03/26/18 Sertraline HCl [Zoloft] 200 mg PO DAILY 05/03/18 Review of Systems - Review of Systems Constitutional: States: chills, fever, malaise EENTM: States: no symptoms reported. Denies: eye pain, double vision, ear discharge Respiratory: States: no symptoms reported. Denies: cough, short of breath, wheezing Cardiology: States: no symptoms reported. Denies: chest pain, edema, palpitations Gastrointestinal/Abdominal: States: see HPI, abdominal pain, nausea, vomiting Genitourinary: States: see HPI Musculoskeletal: States: no symptoms reported Skin: States: no symptoms reported Neurological: States: no symptoms reported Past Medical History (General) - Patient Medical History Hx Seizures: Yes Hx Stroke: No Hx Dementia: No Hx Asthma: Yes Hx of COPD: No Hx Cardiac Disorders: No Hx Congestive Heart Failure: No Hx Pacemaker: No Hx Hypertension: No Hx Thyroid Disease: No Hx Diabetes: Yes Hx Gastroesophageal Reflux: Yes Hx Renal Disease: No Hx Cancer: No Hx of HIV: No Hx Hepatitis C: No Hx MRSA: Yes MRSA Source:: Blood - Vaccination History Hx Tetanus, Diphtheria Vaccination: Yes Hx Influenza Vaccination: Yes Hx Pneumococcal Vaccination: Yes - Social History Hx Tobacco Use: Yes Hx Chewing Tobacco Use: No Hx Alcohol Use: No Hx Substance Use: No Hx Substance Use Treatment: No Hx Depression: No Hx Physical Abuse: No Hx Emotional Abuse: No Hx Suspected Abuse: No - Female History Hx Last Menstrual Period: 11/05/11 Patient : No Family Medical History - Family History Mother Family History: No Known Name: April Age (years): 67 Living Status: Still Living Hx Family Asthma: No Hx Family Congestive Heart Failure: No Hx Family Hypertension: No Hx Family Stroke: No Hx Cardiac Disease: No Hx Family Diabetes: No Hx Family Cancer: Yes - skin cancer Hx Family;Other: thyroid problems and seizures Father Family History: No Known Name: Marlon Age (years): 65 Living Status: Still Living Hx Family Asthma: - Sister Hx Family Congestive Heart Failure: No Hx Family Hypertension: Yes Hx Family Stroke: No Hx Cardiac Disease: Yes Hx Family Diabetes: No Age of Onset (years of age): 32 Hx Family Cancer: - Grandmother Lymphoma Physical Exam - Physical Exam General Appearance: Alert, No apparent distress Eye Exam: bilateral normal Neck: non-tender, full range of motion, supple Respiratory: chest non-tender, lungs clear, normal breath sounds, no respiratory distress Cardiovascular/Chest: normal peripheral pulses, regular rate, rhythm, no edema, no gallop, no murmur Gastrointestinal/Abdominal: normal bowel sounds, soft, tenderness - TTP RLQ without rebound or distention Back Exam: normal inspection, no CVA tenderness Extremity: normal range of motion, non-tender Neurologic: alert, oriented x 3 Progress - Progress Progress: 05/03/18 17:09 patient asleep in room with no distress 05/03/18 18:36 patient remained asleep, but easily awakened with no nausea or emesis since arrival. BS now 140. Patient instructed to hold her Humalog for tonight and decrease her lantus to 1/2 dose. Restart home dose in am. Follow up with PCP on Saturday. No evidence of DKA today nor active UTI. Keep follow up with Urology. 05/03/18 18:37 - Results/Orders Results/Orders: 05/03/18 18:26 FSBS [GLUCOSE, FINGER STICK] Stat Laboratory Results WBC 8.0 K/mm3 (4.8-10.8) 05/03/18 14:30 RBC 5.00 M/mm3 (4.20-5.40) 05/03/18 14:30 Hgb 13.7 gm/dL (12.0-16.0) 05/03/18 14:30 Hct 42.7 % (36.0-47.0) 05/03/18 14:30 MCV 85.4 fl (81.0-99.0) 05/03/18 14:30 MCH 27.5 pg (27.0-31.0) 05/03/18 14:30 MCHC 32.2 g/dL (33.0-37.0) L 05/03/18 14:30 RDW 14.8 % (11.5-14.5) H 05/03/18 14:30 Plt Count 236 K/mm3 (130-400) 05/03/18 14:30 MPV 9.6 fl (7.40-10.4) 05/03/18 14:30 Absolute Neuts (auto) 6.10 K/uL (1.8-6.8) 05/03/18 14:30 Absolute Lymphs (auto) 1.30 K/uL (1.0-3.4) 05/03/18 14:30 Absolute Monos (auto) 0.50 K/uL (0.2-0.8) 05/03/18 14:30 Absolute Eos (auto) 0.10 K/uL (0.0-0.4) 05/03/18 14:30 Absolute Basos (auto) 0.00 K/uL (0.0-0.1) 05/03/18 14:30 Neutrophils % 76.5 % (42.0-78.0) 05/03/18 14:30 Lymphocytes % 15.9 % (20.0-50.0) L 05/03/18 14:30 Monocytes % 5.7 % (2.0-9.0) 05/03/18 14:30 Eosinophils % 1.4 % (1.0-5.0) 05/03/18 14:30 Basophils % 0.5 % (0.0-2.0) 05/03/18 14:30 Sodium 132 mmol/L (135-145) L 05/03/18 14:26 Potassium 4.4 mmol/L (3.6-5.0) 05/03/18 14:26 Chloride 100 mmol/L (101-111) L 05/03/18 14:26 Carbon Dioxide 22 mmol/L (21-31) 05/03/18 14:26 Anion Gap 14.4 (12-18) 05/03/18 14:26 BUN 21 mg/dL (7-18) H 05/03/18 14:26 Creatinine 0.84 mg/dL (0.6-1.3) 05/03/18 14:26 BUN/Creatinine Ratio 25.0 (10-20) H 05/03/18 14:26 POC Glucose > 400 mg/dL (70-105) H* 05/03/18 15:56 Random Glucose 490 mg/dL (70-105) H* 05/03/18 15:51 Serum Osmolality 297.9 mOsm/L (275-295) H 05/03/18 14:26 Lactic Acid 1.3 mmol/L (0.5-2.2) 05/03/18 14:30 Calcium 9.1 mg/dL (8.4-10.2) 05/03/18 14:26 Total Bilirubin 0.3 mg/dL (0.2-1.0) 05/03/18 14:26 AST 26 IU/L (10-42) 05/03/18 14:26 ALT 39 IU/L (10-60) 05/03/18 14:26 Alkaline Phosphatase 196 IU/L (42-121) H 05/03/18 14:26 Serum Total Protein 7.3 gm/dL (6.4-8.2) 05/03/18 14:26 Albumin 4.3 g/dl (3.2-5.5) 05/03/18 14:26 Globulin 3.0 gm/dL (2.3-3.5) 05/03/18 14:26 Albumin/Globulin Ratio 1.4 (1.1-1.9) 05/03/18 14:26 Urine Color Yellow (Yellow) 05/03/18 15:24 Urine Appearance Clear (Clear) 05/03/18 15:24 Urine pH 5.5 (4.5-7.8) 05/03/18 15:24 Ur Specific [place] <= 1.005 (1.005-1.030) 05/03/18 15:24 Urine Protein Negative mg/dL 05/03/18 15:24 Urine Glucose (UA) >=1000 mg/dL (Negative) H 05/03/18 15:24 Urine Ketones Negative mg/dL (NEGATIVE) 05/03/18 15:24 Urine Blood Small (Negative) H 05/03/18 15:24 Urine Nitrite Negative 05/03/18 15:24 Urine Bilirubin Negative (NEGATIVE) 05/03/18 15:24 Urine Urobilinogen 0.2 mg/dL (0.2-1.0) 05/03/18 15:24 Ur Leukocyte Esterase Negative (Negative) 05/03/18 15:24 Urine RBC 0 /hpf 05/03/18 15:24 Urine WBC 0 /hpf 05/03/18 15:24 Ur Epithelial Cells 3-5 /hpf 05/03/18 15:24 Urine Bacteria 0 05/03/18 15:24 Departure - Departure Clinical Impression: Uncontrolled diabetes mellitus Qualifiers: Diabetes mellitus type: type 2 Glycemic state: with hyperglycemia Qualified Code(s): E11.65 - Type 2 diabetes mellitus with hyperglycemia Disposition: Discharge to Home or Self Care Condition: Good Departure Forms: ED Discharge - Pt. Copy, Patient Portal Self Enrollment Instructions: DI for Diabetes Type 2 Referrals: Joby Rangel MD [Primary Care Provider] - 1-2 Weeks Home Medications: Ambulatory Orders Zolpidem Tartrate [Ambien] 10 mg PO BEDTIME 04/09/16 Tizanidine HCl [Zanaflex] 8 mg PO TID 12/18/16 Insulin Detemir [Levemir Pen] 40 units SUBCU DAILY 01/07/17 Insulin Aspart [Novolog] 0 unit SC ACHS PRN 05/15/17 HYDROcodone 10MG/APAP 325MG [[place] 10325] 1 ea PO QID 08/12/17 Metoclopramide HCl [Reglan] 10 mg PO BID PRN 09/15/17 Mometasone Furoate [Elocon] 0.1 % TOP DAILY PRN 11/07/17 DiphenhydrAMINE HCL [Benadryl] 50 tablet TID PRN 12/31/17 Pregabalin [Lyrica] 300 mg PO BID 12/31/17 Ondansetron [Zofran Odt] 4 mg PO Q4H PRN #30 tab 01/01/18 Lurasidone HCl [Latuda] 80 mg PO DAILY 02/18/18 Metoclopramide HCl 10 mg PO Q8HR #30 tab 02/18/18 Nitrofurantoin Monohydrate Mac [Macrobid] 100 mg PO BID #14 capsule 03/20/18 Epinephrine [Epipen 2-Mikael] 0.3 mg IJ ONCE PRN #1 pack 03/26/18 Famotidine [Pepcid Tab] 20 mg PO BID 4 Days #8 tab 03/26/18 diphenhydrAMINE HCL [Benadryl] 25 mg PO Q6H PRN #12 cap 03/26/18 Sertraline HCl [Zoloft] 200 mg PO DAILY 05/03/18 Additional Instructions: go home and eat dinner. Do not take Humalog tonight and half her dose of Lantus. Recheck 3 am BS and if <100 take 4 oz of OJ. Restart home dose in am. Follow up with PCP on Saturday.
--- NOTE | 2018-05-03 15:26 | RAD ---
EXAM DESCRIPTION: KUB CLINICAL HISTORY: 42 years Female, pain COMPARISON: January 15, 2018. FINDINGS: Gas and feces are noted in the colon, along with small amounts of small intestinal gas, nonspecific. Small bowel gas may be minimally increased compared to the previous study, but there is no suggestion of mechanical bowel obstruction or generalized ileus. No gross organomegaly is identified. Small calcifications in the lower pelvis are consistent with phleboliths. There is also a small calcification lateral to the left hip. Suggestion of minimal left convex lumbar scoliosis. IMPRESSION: Nonspecific appearance of the abdomen. Electronically signed by: Jason Metz MD 05/03/2018 3:19 PM CDT
[~2018-05-03 21:12] MED LIST changes: +INSULIN LISPRO 100 UNITS/ML PEN SUBCU ONE; +INSULIN, REG.(HUMAN) 100 U/ML VIAL IV ONE; +KETOROLAC TROMETHAMINE INJ 30 MG/ML VIAL IV ONE; -METOCLOPRAMIDE HCL INJ 10 MG/2 ML VIAL IV ONE; -ONDANSETRON INJ 4 MG/2 ML VIAL IV ONE; +PROMETHAZINE HCL INJ 25 MG in SODIUM CHLORIDE 0.9% 50ML 50 ML IVPB ONE; +PROMETHAZINE HCL INJ 25 MG/ML VIAL ONE; +SODIUM CHLORIDE 0.9% 50ML 50 ML ONE
[2018-05-03] MEDS ORDERED: KETOROLAC TROMETHAMINE INJ 30 MG/ML VIAL IV ONE (21:26)
[2018-05-03] MEDS ORDERED: PROMETHAZINE HCL INJ 25 MG in SODIUM CHLORIDE 0.9% 50ML 50 ML IVPB ONE (21:26)
[2018-05-03] MEDS ORDERED: SODIUM CHLORIDE 0.9% 1000ML 1,000 ML IVS ONE (21:26)
[2018-05-03] MEDS ORDERED: METOCLOPRAMIDE HCL INJ 10 MG/2 ML VIAL IV ONE (21:26)
--- NOTE | 2018-05-03 21:30 | ED.PDOC ---
History of Present Illness - General Chief Complaint: GI Problem Stated Complaint: N/V, right side pain Time Seen by Provider: 05/03/18 21:26 Information Source: patient Exam Limitations: no limitations - History of Present Illness Initial Comments: ppatient comes in today for increasing blood sugar up to 340, abdominal pain, and emesis 3 after trying to eat soup. Patient was seen earlier today and discharged at 6:30 for similar symptoms. At that time she didn't violate in the emergency room for 5 hours and was sleeping peacefully without pain with no episodes of emesis during this entire evaluation. Patient has been seen multiple times to the emergency room for right lower quadrant pain and dysuria with repetitive urinary tract infections and cystitis with negative culture. Additionally, patient has known gastroparesis and poorly controlled diabetes mellitus. She often presents in DKA. Patient has chronic back pain and does see a pain specialist and is normally on narcotics.. Additionally, she takes Valium for chronic anxiety. Today she requests narcotics as well as Ativan as she did earlier and as she does on most evaluations. Patient states when she went home she got worse again as soon as she tried to eat and is not tolerating by mouth intake. Abdominal Pain Onset Location: RLQ Pain Radiation: no radiation Quality: severe, sharpness Timing/Duration: other - for several months Improving Factors: nothing Worsening Factors: eating Associated Symptoms: nausea/vomiting Review of Systems - Review of Systems Constitutional: States: malaise, weakness. Denies: chills, fever EENTM: States: no symptoms reported. Denies: eye pain, blurred vision, ear pain , nose pain, throat pain Respiratory: States: no symptoms reported. Denies: cough, short of breath, wheezing Cardiology: States: no symptoms reported. Denies: chest pain, edema, palpitations Gastrointestinal/Abdominal: States: see HPI Genitourinary: States: see HPI Musculoskeletal: States: no symptoms reported Skin: States: no symptoms reported Neurological: States: no symptoms reported Past Medical History (General) - Patient Medical History Hx Seizures: Yes Hx Stroke: No Hx Dementia: No Hx Asthma: Yes Hx of COPD: No Hx Cardiac Disorders: No Hx Congestive Heart Failure: No Hx Pacemaker: No Hx Hypertension: No Hx Thyroid Disease: No Hx Diabetes: Yes Hx Gastroesophageal Reflux: Yes Hx Renal Disease: No Hx Cancer: No Hx of HIV: No Hx Hepatitis C: No Hx MRSA: Yes MRSA Source:: Blood - Vaccination History Hx Tetanus, Diphtheria Vaccination: Yes Hx Influenza Vaccination: Yes Hx Pneumococcal Vaccination: Yes - Social History Hx Tobacco Use: Yes Hx Chewing Tobacco Use: No Hx Alcohol Use: No Hx Substance Use: No Hx Substance Use Treatment: No Hx Depression: No Hx Physical Abuse: No Hx Emotional Abuse: No Hx Suspected Abuse: No - Female History Hx Last Menstrual Period: 11/05/11 Patient : No Family Medical History - Family History Mother Family History: No Known Name: April Age (years): 67 Living Status: Still Living Hx Family Asthma: No Hx Family Congestive Heart Failure: No Hx Family Hypertension: No Hx Family Stroke: No Hx Cardiac Disease: No Hx Family Diabetes: No Hx Family Cancer: Yes - skin cancer Hx Family;Other: thyroid problems and seizures Father Family History: No Known Name: Marlon Age (years): 65 Living Status: Still Living Hx Family Asthma: - Sister Hx Family Congestive Heart Failure: No Hx Family Hypertension: Yes Hx Family Stroke: No Hx Cardiac Disease: Yes Hx Family Diabetes: No Age of Onset (years of age): 32 Hx Family Cancer: - Grandmother Lymphoma Physical Exam - Physical Exam General Appearance: Alert, No apparent distress Eyes, Ears, Nose, Throat Exam: PERRL/EOMI, normal ENT inspection, TMs normal Neck: non-tender, full range of motion, supple Respiratory: chest non-tender, lungs clear, normal breath sounds, no respiratory distress Cardiovascular/Chest: normal peripheral pulses, regular rate, rhythm, no edema, no murmur Peripheral Pulses: No deficit Gastrointestinal/Abdominal: normal bowel sounds, soft, other - non distended with TTP RLQ and no rebound or guarding Back Exam: normal inspection Neurologic: alert, oriented x 3 Progress - Progress Progress: on evaluation patient states that when she got home she just was no better. She had urine earlier today that was negative. She has no fever, chills, cough , or congestion. We have discussed at length that we have some concern that she has some drug seeking behavior. However, she does have brittle DM and we cannot offer her narcotics nor ativan but are willing to repeat work up as her BS has increased again from discharge. 05/03/18 21:32 05/03/18 22:24 Patient now has elevation of her lactic acid and her BS have increased again despite SC insulin and IV insulin given on prior ER evaluation. Patient will be started on insulin drip and we will call for transfer to higher level of care. - Results/Orders Results/Orders: 05/03/18 21: Sodium Chloride 0.9% 1000ML [Ns 1000 ml] 1,000 ml IVS ONCE 05/03/18 22:30 Insulin, Reg.(Human) [HumuLIN R] 250 units Sodium Chl 0.9% 250Ml (Radha) [NS 250ml (RADHA)] 247.5 ml IVPB Q12H Laboratory Results WBC 5.8 K/mm3 (4.8-10.8) 05/03/18 21: RBC 4.52 M/mm3 (4.20-5.40) 05/03/18: Hgb 12.4 gm/dL (12.0-16.0) 05/03/18: Hct 38.2 % (36.0-47.0) 05/03/18: MCV 84.5 fl (81.0-99.0) 05/03/18 21: MCH 27.4 pg (27.0-31.0) 05/03/18 21: MCHC 32.4 g/dL (33.0-37.0) L 05/03/18: RDW 14.7 % (11.5-14.5) H 05/03/18 21: Plt Count 201 K/mm3 (130-400) 05/03/18 21: MPV 9.4 fl (7.40-10.4) 05/03/18 21: Absolute Neuts (auto) 3.60 K/uL (1.8-6.8) 05/03/18: Absolute Lymphs (auto) 1.50 K/uL (1.0-3.4) 05/03/18: Absolute Monos (auto) 0.50 K/uL (0.2-0.8) 05/03/18 21: Absolute Eos (auto) 0.10 K/uL (0.0-0.4) 05/03/18: Absolute Basos (auto) 0.00 K/uL (0.0-0.1) 05/03/18 21:26 Neutrophils % 62.1 % (42.0-78.0) 05/03/18 21:26 Lymphocytes % 26.2 % (20.0-50.0) 05/03/18 21:26 Monocytes % 9.1 % (2.0-9.0) H 05/03/18 21:26 Eosinophils % 2.0 % (1.0-5.0) 05/03/18 21:26 Basophils % 0.6 % (0.0-2.0) 05/03/18 21:26 pCO2 38 mmHg (32-45) 05/03/18 22:10 pO2 55 mmHg (83-108) L 05/03/18 22:10 HCO3 21.3 mmol/L 05/03/18 22:10 ABG pH 7.360 (7.35-7.45) 05/03/18 22:10 ABG O2 Saturation 90.4 % (95.0-99.0) L 05/03/18 22:10 ABG Base Excess -3.2 mmol/L 05/03/18 22:10 ABG Deoxyhemoglobin 8.9 % (0.0-5.0) H 05/03/18 22:10 Oxyhemoglobin % 84.0 % (94.0-98.0) L 05/03/18 22:10 Carboxyhemoglobin % 5.6 % (0.5-1.5) H 05/03/18 22:10 Methemoglobin % Sat 1.5 % (0.0-1.5) 05/03/18 22:10 Calc Total Hemoglobin 11.6 g/dL (12.0-16.0) L 05/03/18 22:10 Sodium 135 mmol/L (135-145) 05/03/18 21:26 Potassium 4.5 mmol/L (3.6-5.0) 05/03/18 21:26 Chloride 105 mmol/L (101-111) 05/03/18 21:26 Carbon Dioxide 22 mmol/L (21-31) 05/03/18 21:26 Anion Gap 12.5 (12-18) 05/03/18 21:26 BUN 19 mg/dL (7-18) H 05/03/18 21:26 Creatinine 0.88 mg/dL (0.6-1.3) 05/03/18 21:26 BUN/Creatinine Ratio 21.6 (10-20) H 05/03/18 21:26 Random Glucose 423 mg/dL (70-105) H* 05/03/18 21:26 Serum Osmolality 290.4 mOsm/L (275-295) 05/03/18 21:26 Lactic Acid 2.5 mmol/L (0.5-2.2) H* 05/03/18 21:26 Calcium 8.6 mg/dL (8.4-10.2) 05/03/18 21:26 Total Bilirubin 0.6 mg/dL (0.2-1.0) 05/03/18 21:26 AST 40 IU/L (10-42) 05/03/18 21:26 ALT 37 IU/L (10-60) 05/03/18 21:26 Alkaline Phosphatase 125 IU/L (42-121) H D 05/03/18 21:26 Serum Total Protein 6.4 gm/dL (6.4-8.2) 05/03/18 21:26 Albumin 3.6 g/dl (3.2-5.5) 05/03/18 21:26 Globulin 2.8 gm/dL (2.3-3.5) 05/03/18 21:26 Albumin/Globulin Ratio 1.3 (1.1-1.9) 05/03/18 21:26 05/03/18 21:26 Sodium Chloride 0.9% 1000ML [Ns 1000 ml] 1,000 ml IVS ONCE 05/03/18 22:30 Insulin, Reg.(Human) [HumuLIN R] 250 units Sodium Chl 0.9% 250Ml (Radha) [NS 250ml (RADHA)] 247.5 ml IVPB Q12H Laboratory Results - last 24 hr 05/03/18 05/03/18 05/03/18 21:26 21:26 21:26 WBC 5.8 RBC 4.52 Hgb 12.4 Hct 38.2 MCV 84.5 MCH 27.4 MCHC 32.4 L RDW 14.7 H Plt Count 201 MPV 9.4 Absolute Neuts (auto) 3.60 Absolute Lymphs (auto) 1.50 Absolute Monos (auto) 0.50 Absolute Eos (auto) 0.10 Absolute Basos (auto) 0.00 Neutrophils % 62.1 Lymphocytes % 26.2 Monocytes % 9.1 H Eosinophils % 2.0 Basophils % 0.6 pCO2 pO2 HCO3 ABG pH ABG O2 Saturation ABG Base Excess ABG Deoxyhemoglobin Oxyhemoglobin % Carboxyhemoglobin % Methemoglobin % Sat Calc Total Hemoglobin Sodium 135 Potassium 4.5 Chloride 105 Carbon Dioxide 22 Anion Gap 12.5 BUN 19 H Creatinine 0.88 BUN/Creatinine Ratio 21.6 H Random Glucose 423 H* Serum Osmolality 290.4 Lactic Acid 2.5 H* Calcium 8.6 Total Bilirubin 0.6 AST 40 ALT 37 Alkaline Phosphatase 125 H D Serum Total Protein 6.4 Albumin 3.6 Globulin 2.8 Albumin/Globulin Ratio 1.3 05/03/18 22:10 WBC RBC Hgb Hct MCV MCH MCHC RDW Plt Count MPV Absolute Neuts (auto) Absolute Lymphs (auto) Absolute Monos (auto) Absolute Eos (auto) Absolute Basos (auto) Neutrophils % Lymphocytes % Monocytes % Eosinophils % Basophils % pCO2 38 pO2 55 L HCO3 21.3 ABG pH 7.360 ABG O2 Saturation 90.4 L ABG Base Excess -3.2 ABG Deoxyhemoglobin 8.9 H Oxyhemoglobin % 84.0 L Carboxyhemoglobin % 5.6 H Methemoglobin % Sat 1.5 Calc Total Hemoglobin 11.6 L Sodium Potassium Chloride Carbon Dioxide Anion Gap BUN Creatinine BUN/Creatinine Ratio Random Glucose Serum Osmolality Lactic Acid Calcium Total Bilirubin AST ALT Alkaline Phosphatase Serum Total Protein Albumin Globulin Albumin/Globulin Ratio Departure - Departure Clinical Impression: Diabetic ketoacidosis Qualifiers: Diabetes mellitus type: type 2 Diabetes mellitus fdc insulin use: with terminal carman use Diabetes mellitus complication detail: without coma Qualified Code (s): E11.10 - Type 2 diabetes mellitus with ketoacidosis without coma Disposition: Transfer to Hospital Departure Forms: ED Discharge - Pt. Copy, Patient Portal Self Enrollment Referrals: Joby Rangel MD [Primary Care Provider] - 1-2 Weeks Home Medications: Ambulatory Orders Zolpidem Tartrate [Ambien] 10 mg PO BEDTIME 04/09/16 Tizanidine HCl [Zanaflex] 8 mg PO TID 12/18/16 Insulin Detemir [Levemir Pen] 40 units SUBCU DAILY 01/07/17 Insulin Aspart [Novolog] 0 unit SC ACHS PRN 05/15/17 HYDROcodone 10MG/APAP 325MG [[place] 10] 1 ea PO QID 08/12/17 Metoclopramide HCl [Reglan] 10 mg PO BID PRN 09/15/17 Mometasone Furoate [Elocon] 0.1 % TOP DAILY PRN 11/07/17 DiphenhydrAMINE HCL [Benadryl] 50 tablet TID PRN 12/31/17 Pregabalin [Lyrica] 300 mg PO BID 12/31/17 Ondansetron [Zofran Odt] 4 mg PO Q4H PRN #30 tab 01/01/18 Lurasidone HCl [Latuda] 80 mg PO DAILY 02/18/18 Metoclopramide HCl 10 mg PO Q8HR #30 tab 02/18/18 Nitrofurantoin Monohydrate Mac [Macrobid] 100 mg PO BID #14 capsule 03/20/18 Epinephrine [Epipen 2-Mikael] 0.3 mg IJ ONCE PRN #1 pack 03/26/18 Famotidine [Pepcid Tab] 20 mg PO BID 4 Days #8 tab 03/26/18 diphenhydrAMINE HCL [Benadryl] 25 mg PO Q6H PRN #12 cap 03/26/18 Sertraline HCl [Zoloft] 200 mg PO DAILY 05/03/18 Transfer to Outside Facility - Transfer Information Accepting Facility: [facility] Reason for Transfer: ICU
[2018-05-03] MEDS ORDERED: PROMETHAZINE HCL INJ 25 MG/ML VIAL ONE (22:09)
[2018-05-03] MEDS ORDERED: SODIUM CHLORIDE 0.9% 50ML 50 ML ONE (22:09)
[2018-05-03] MEDS ORDERED: SODIUM CHL 0.9% 250ML (AVIVA) 250 ML IVPB ONE (22:26)
[2018-05-03] MEDS ORDERED: INSULIN, REG.(HUMAN) 100 U/ML VIAL ONE (22:27)
[2018-05-03] MEDS ORDERED: INSULIN, REG.(HUMAN) 250 UNITS in SODIUM CHL 0.9% 250ML (AVIVA) 247.5 ML IVPB SCH ×2 (22:30)
[2018-05-03 23:11] VITALS: BP 117/61; TEMP 98.6; O2SAT 99
== END 2018-05-03 23:24 | disposition short-term general hospital (02) ==
LOC: ER 21:12
DX: E11.10 Type 2 diabetes mellitus with ketoacidosis without coma (principal); K21.9 Gastro-esophageal reflux disease without esophagitis; J45.909 Unspecified asthma, uncomplicated; Z87.891 Personal history of nicotine dependence
CPT/HCPCS: 36600; 80053; 82803; 82805; 83605; 85025; A4216; J1885; J2060; J2550; J2765; J7030

== ENCOUNTER → 2018-05-03 | Emergency (ER) | payer MEDICARE, MEDICAID ==
[2018-05-03 14:21] VITALS: TEMP 99.1
[2018-05-03 17:37] VITALS: O2SAT 99
[2018-05-03 18:51] VITALS: BP 104/72
== END | disposition home or self-care (01) ==
LOC: CANPREER → ER 14:01
DX: E11.65 Type 2 diabetes mellitus with hyperglycemia (principal); R11.2 Nausea with vomiting, unspecified; K21.9 Gastro-esophageal reflux disease without esophagitis; J45.909 Unspecified asthma, uncomplicated; Z87.891 Personal history of nicotine dependence; Z79.899 Other long term (current) drug therapy; Z79.4 Long term (current) use of insulin; Z90.49 Acquired absence of other specified parts of digestive tract; Z91.013 Allergy to seafood
CPT/HCPCS: 36415; 74018; 80053; 81001; 82947; 82948; 83605; 85025; A4216; J1815; J1885; J2060; J2550; J7030

== ENCOUNTER 2018-05-17 17:52 | Emergency (ER) | payer MEDICARE, MEDICAID ==
[2018-05-17] MEDS ORDERED: IBUPROFEN 200 MG TAB PO ONE (18:28)
[2018-05-17] MEDS ORDERED: SODIUM CHLORIDE 0.9% 1000ML 1,000 ML IVS ONE (18:29)
[2018-05-17] MEDS ORDERED: ONDANSETRON INJ 4 MG/2 ML VIAL IV ONE (18:30)
[2018-05-17 19:37] VITALS: TEMP 97.8; O2SAT 98
--- NOTE | 2018-05-17 19:45 | ED.PDOC ---
History of Present Illness - General Chief Complaint: Diabetic Complaint Stated Complaint: N/V, abdominal discomfort Time Seen by Provider: 05/17/18 18:25 Source: patient, Vital Signs reviewed Exam Limitations: no limitations - History of Present Illness Initial Comments: N/V, with abd pain, can't keep down her meds. "It's making me anxious." Timing/Duration: 24 hours, constant Severity: mild Improving Factors: nothing Worsening Factors: nothing Associated Symptoms: nausea/vomiting, weakness Allergies/Adverse Reactions: Allergies Fish Allergy Allergy (Verified 05/17/18 19:30) peanut Allergy (Severe, Uncoded 05/17/18 19:30) Home Medications: Ambulatory Orders Zolpidem Tartrate [Ambien] 10 mg PO BEDTIME 04/09/16 Tizanidine HCl [Zanaflex] 8 mg PO TID 12/18/16 Insulin Detemir [Levemir Pen] 40 units SUBCU DAILY 01/07/17 Insulin Aspart [Novolog] 0 unit SC ACHS PRN 05/15/17 HYDROcodone 10MG/APAP 325MG [[place] 10/325] 1 ea PO QID 08/12/17 Metoclopramide HCl [Reglan] 10 mg PO BID PRN 09/15/17 Mometasone Furoate [Elocon] 0.1 % TOP DAILY PRN 11/07/17 DiphenhydrAMINE HCL [Benadryl] 50 tablet TID PRN 12/31/17 Pregabalin [Lyrica] 300 mg PO BID 12/31/17 Ondansetron [Zofran Odt] 4 mg PO Q4H PRN #30 tab 01/01/18 Lurasidone HCl [Latuda] 80 mg PO DAILY 02/18/18 Metoclopramide HCl 10 mg PO Q8HR #30 tab 02/18/18 Nitrofurantoin Monohydrate Mac [Macrobid] 100 mg PO BID #14 capsule 03/20/18 Epinephrine [Epipen 2-Mikael] 0.3 mg IJ ONCE PRN #1 pack 03/26/18 Famotidine [Pepcid Tab] 20 mg PO BID 4 Days #8 tab 03/26/18 diphenhydrAMINE HCL [Benadryl] 25 mg PO Q6H PRN #12 cap 03/26/18 Sertraline HCl [Zoloft] 200 mg PO DAILY 05/03/18 Review of Systems - Review of Systems Constitutional: States: no symptoms reported EENTM: States: no symptoms reported Respiratory: States: no symptoms reported Cardiology: States: no symptoms reported Gastrointestinal/Abdominal: States: see HPI, abdominal pain, nausea, vomiting. Denies: diarrhea Genitourinary: States: no symptoms reported Musculoskeletal: States: no symptoms reported Skin: States: no symptoms reported Neurological: States: headache - mild Endocrine: States: see HPI, increased urine Past Medical History (General) - Patient Medical History Hx Seizures: Yes Hx Stroke: No Hx Dementia: No Hx Asthma: Yes Hx of COPD: No Hx Cardiac Disorders: No Hx Congestive Heart Failure: No Hx Pacemaker: No Hx Hypertension: No Hx Thyroid Disease: No Hx Diabetes: Yes - Diabetic gastroparesis Hx Gastroesophageal Reflux: Yes Hx Renal Disease: No Hx Cancer: No Hx of HIV: No Hx Hepatitis C: No Hx MRSA: Yes MRSA Source:: Blood - Vaccination History Hx Tetanus, Diphtheria Vaccination: Yes Hx Influenza Vaccination: Yes Hx Pneumococcal Vaccination: Yes - Social History Hx Tobacco Use: Yes Hx Chewing Tobacco Use: No Hx Alcohol Use: Yes Hx Substance Use: Yes Hx Substance Use Treatment: No Hx Depression: No Hx Physical Abuse: No Hx Emotional Abuse: No Hx Suspected Abuse: No - Female History Hx Last Menstrual Period: 11/05/11 Patient : No Family Medical History - Family History Mother Family History: No Known Name: April Age (years): 67 Living Status: Still Living Hx Family Asthma: No Hx Family Congestive Heart Failure: No Hx Family Hypertension: No Hx Family Stroke: No Hx Cardiac Disease: No Hx Family Diabetes: No Hx Family Cancer: Yes - skin cancer Hx Family;Other: thyroid problems and seizures Father Family History: No Known Name: Marlon Age (years): 65 Living Status: Still Living Hx Family Asthma: - Sister Hx Family Congestive Heart Failure: No Hx Family Hypertension: Yes Hx Family Stroke: No Hx Cardiac Disease: Yes Hx Family Diabetes: No Age of Onset (years of age): 32 Hx Family Cancer: - Grandmother Lymphoma Physical Exam - Physical Exam General Appearance: Alert, Anxious, Comfortable, No apparent distress Ears, Nose, Throat: normal ENT inspection Neck: full range of motion, supple, normal inspection Respiratory: lungs clear, normal breath sounds, no respiratory distress Cardiovascular/Chest: regular rate, rhythm, no edema, no gallop, no JVD, no murmur Gastrointestinal/Abdominal: non tender, soft, no organomegaly Extremity: non-tender, normal inspection, no pedal edema 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 No vomiting. Feels well enough to go home. Has meds at home. - Results/Orders Results/Orders: WBC 4.8 pH 7.52 glucose 182 no ketones Departure - Departure Clinical Impression: Hyperglycemia without ketosis, Gastroparesis Time of Disposition: 19:44 Disposition: Discharge to Home or Self Care Departure Forms: ED Discharge - Pt. Copy, Patient Portal Self Enrollment Instructions: Gastroparesis (Delayed Gastric Emptying) (DC) Referrals: Joby Rangel MD [Primary Care Provider] - 05/19/18 Home Medications: Ambulatory Orders Zolpidem Tartrate [Ambien] 10 mg PO BEDTIME 04/09/16 Tizanidine HCl [Zanaflex] 8 mg PO TID 12/18/16 Insulin Detemir [Levemir Pen] 40 units SUBCU DAILY 01/07/17 Insulin Aspart [Novolog] 0 unit SC ACHS PRN 05/15/17 HYDROcodone 10MG/APAP 325MG [[place] ] 1 ea PO QID 08/12/17 Metoclopramide HCl [Reglan] 10 mg PO BID PRN 09/15/17 Mometasone Furoate [Elocon] 0.1 % TOP DAILY PRN 11/07/17 DiphenhydrAMINE HCL [Benadryl] 50 tablet TID PRN 12/31/17 Pregabalin [Lyrica] 300 mg PO BID 12/31/17 Ondansetron [Zofran Odt] 4 mg PO Q4H PRN #30 tab 01/01/18 Lurasidone HCl [Latuda] 80 mg PO DAILY 02/18/18 Metoclopramide HCl 10 mg PO Q8HR #30 tab 02/18/18 Nitrofurantoin Monohydrate Mac [Macrobid] 100 mg PO BID #14 capsule 03/20/18 Epinephrine [Epipen 2-Mikael] 0.3 mg IJ ONCE PRN #1 pack 03/26/18 Famotidine [Pepcid Tab] 20 mg PO BID 4 Days #8 tab 03/26/18 diphenhydrAMINE HCL [Benadryl] 25 mg PO Q6H PRN #12 cap 03/26/18 Sertraline HCl [Zoloft] 200 mg PO DAILY 05/03/18
[2018-05-17 19:53] VITALS: BP 133/88
== END 2018-05-17 19:53 | disposition home or self-care (01) ==
LOC: ER 17:52
DX: E11.43 Type 2 diabetes mellitus with diabetic autonomic (poly)neuropathy (principal); K31.84 Gastroparesis; E11.65 Type 2 diabetes mellitus with hyperglycemia; K21.9 Gastro-esophageal reflux disease without esophagitis; J45.909 Unspecified asthma, uncomplicated; Z87.891 Personal history of nicotine dependence; Z79.4 Long term (current) use of insulin; Z79.899 Other long term (current) drug therapy
CPT/HCPCS: 36415; 36600; 80053; 81001; 82803; 82805; 85025; J2060; J2405; J7030

== ENCOUNTER 2018-05-19 10:26 | Emergency (ER) | payer MEDICARE, MEDICAID ==
[2018-05-19 10:41] VITALS: O2SAT 100
[2018-05-19] MEDS ORDERED: SODIUM CHLORIDE 0.9% 1000ML 1,000 ML ONE (11:02)
[2018-05-19] MEDS ORDERED: ONDANSETRON INJ 4 MG/2 ML VIAL ONE (11:02)
--- NOTE | 2018-05-19 11:17 | ED.PDOC ---
History of Present Illness - General Chief Complaint: Abdominal Pain Stated Complaint: ABDOMINAL PAIN Time Seen by Provider: 05/19/18 10:44 Information Source: patient Exam Limitations: no limitations - History of Present Illness Initial Comments: PT PRESENTS TO THE ED WITH COMPLAINTS OF ABDOMINAL PAIN, NAUSEA, VOMITING AND DIARRHEA FOR THE PAST 2 DAYS. PT REPORTS HER GLUCOSE WAS 600 THIS AM AND SHE STATES SHE TOOK 10 UNITS OF INSULIN PRIOR TO COMING. PT WAS RECENTLY ADMITTED FOR DKA AND STATES HER INSULIN REGIMEN WAS ADJUSTED DURING THAT ADMISSION. Abdominal Pain Onset Location: generalized abdomen Quality: severe, cramping Timing/Duration: getting worse Improving Factors: nothing Worsening Factors: nothing Associated Symptoms: diarrhea, nausea/vomiting Review of Systems - Review of Systems Constitutional: Denies: chills, fever EENTM: Denies: nose congestion, throat pain Respiratory: Denies: cough, short of breath Cardiology: Denies: chest pain, palpitations Gastrointestinal/Abdominal: States: see HPI, abdominal pain, diarrhea, nausea, vomiting Genitourinary: Denies: dysuria, frequency Musculoskeletal: Denies: joint pain, joint swelling Skin: Denies: dryness, lesions Neurological: Denies: numbness, paresthesia Endocrine: States: no symptoms reported Hematologic/Lymphatic: States: no symptoms reported Past Medical History (General) - Patient Medical History Hx Seizures: Yes Hx Stroke: No Hx Dementia: No Hx Asthma: Yes Hx of COPD: No Hx Cardiac Disorders: No Hx Congestive Heart Failure: No Hx Pacemaker: No Hx Hypertension: No Hx Thyroid Disease: No Hx Diabetes: Yes - Diabetic gastroparesis Hx Gastroesophageal Reflux: Yes Hx Renal Disease: No Hx Cancer: No Hx of HIV: No Hx Hepatitis C: No Hx MRSA: Yes MRSA Source:: Blood Surgical History: appendectomy - Vaccination History Hx Tetanus, Diphtheria Vaccination: No Hx Influenza Vaccination: Yes Hx Pneumococcal Vaccination: No Immunizations Up to Date: No - Social History Hx Tobacco Use: Yes Hx Chewing Tobacco Use: No Hx Alcohol Use: No Hx Substance Use: No Hx Substance Use Treatment: No Hx Depression: No Feels Threatened In Home Enviroment: No Feels Threatened In a Relationship: No Hx Physical Abuse: No Hx Emotional Abuse: No Hx Suspected Abuse: No - Female History Patient is a Female of Child Bearing Age (10 -59 yrs old): No Hx Last Menstrual Period: 11/05/11 Patient : No Family Medical History - Family History Mother Family History: No Known Name: April Age (years): 67 Living Status: Still Living Hx Family Asthma: No Hx Family Congestive Heart Failure: No Hx Family Hypertension: No Hx Family Stroke: No Hx Cardiac Disease: No Hx Family Diabetes: No Hx Family Cancer: Yes - skin cancer Hx Family;Other: thyroid problems and seizures Father Family History: No Known Name: Marlon Age (years): 65 Living Status: Still Living Hx Family Asthma: - Sister Hx Family Congestive Heart Failure: No Hx Family Hypertension: Yes Hx Family Stroke: No Hx Cardiac Disease: Yes Hx Family Diabetes: No Age of Onset (years of age): 32 Hx Family Cancer: - Grandmother Lymphoma Physical Exam - Physical Exam General Appearance: Alert, Obvious distress, Well Groomed, Well Nourished Neck: full range of motion, normal inspection Respiratory: lungs clear, normal breath sounds, no respiratory distress Cardiovascular/Chest: no murmur, tachycardia Gastrointestinal/Abdominal: soft, tenderness - GENERALIZED Back Exam: normal inspection Extremity: non-tender, normal inspection Neurologic: alert, normal mood/affect, oriented x 3 Skin Exam: normal color, warm/dry Progress - Progress Progress: 05/19/18 12:33 PT RESTING COMFORTABLY ON RE-EVAL. REPORTS SIGNIFICANT IMPROVEMENT IN SYMPTOMS AFTER IF NS, ZOFRAN, MORPHINE. LABS AND DIAGNOSTIC STUDIES DISCUSSED. DISCUSSED PLAN TO TRANSFER TO [facility]. PT REPORTS NO HISTORY OF LIVER DISEASE IN LIGHT OF ELEVATED LFTS. - Results/Orders Results/Orders: Laboratory Tests 05/19/18 05/19/18 05/19/18 11:11 11:11 11:11 WBC 9.6 RBC 5.00 Hgb 13.8 Hct 42.8 MCV 85.6 MCH 27.7 MCHC 32.3 L RDW 14.7 H Plt Count 242 MPV 9.1 Absolute Neuts (auto) 7.50 H Absolute Lymphs (auto) 1.30 Absolute Monos (auto) 0.60 Absolute Eos (auto) 0.10 Absolute Basos (auto) 0.00 Neutrophils % 78.3 H Lymphocytes % 13.6 L Monocytes % 6.4 Eosinophils % 1.2 Basophils % 0.5 pCO2 pO2 HCO3 ABG pH ABG O2 Saturation ABG Base Excess ABG Deoxyhemoglobin Oxyhemoglobin % Carboxyhemoglobin % Methemoglobin % Sat Calc Total Hemoglobin Sodium 136 Potassium 3.8 Chloride 106 Carbon Dioxide 14 L* D Anion Gap 19.8 H BUN 9 Creatinine 0.79 BUN/Creatinine Ratio 11.4 POC Glucose 219 H Random Glucose 242 H D Serum Osmolality 278.6 Calcium 9.4 Total Bilirubin 1.0 AST 86 H D ALT 745 H D Alkaline Phosphatase 340 H Serum Total Protein 7.8 Albumin 4.4 Globulin 3.4 Albumin/Globulin Ratio 1.3 Urine Color Urine Appearance Urine pH Ur Specific [place] Urine Protein Urine Glucose (UA) Urine Ketones Urine Blood Urine Nitrite Urine Bilirubin Urine Urobilinogen Ur Leukocyte Esterase Urine RBC Urine WBC Ur Epithelial Cells Urine Bacteria Serum Ketones Small 05/19/18 05/19/18 11:32 11:50 WBC RBC Hgb Hct MCV MCH MCHC RDW Plt Count MPV Absolute Neuts (auto) Absolute Lymphs (auto) Absolute Monos (auto) Absolute Eos (auto) Absolute Basos (auto) Neutrophils % Lymphocytes % Monocytes % Eosinophils % Basophils % pCO2 24 L pO2 126 H* HCO3 12.6 ABG pH 7.340 L ABG O2 Saturation 99.3 H ABG Base Excess -11.3 ABG Deoxyhemoglobin 0.7 Oxyhemoglobin % 96.1 Carboxyhemoglobin % 1.3 Methemoglobin % Sat 2.0 H Calc Total Hemoglobin 12.4 Sodium Potassium Chloride Carbon Dioxide Anion Gap BUN Creatinine BUN/Creatinine Ratio POC Glucose Random Glucose Serum Osmolality Calcium Total Bilirubin AST ALT Alkaline Phosphatase Serum Total Protein Albumin Globulin Albumin/Globulin Ratio Urine Color Yellow Urine Appearance Clear Urine pH 5.5 Ur Specific [place] >= 1.030 Urine Protein Trace Urine Glucose (UA) 500 H Urine Ketones >=160 Urine Blood Moderate H Urine Nitrite Negative Urine Bilirubin Moderate Urine Urobilinogen 0.2 Ur Leukocyte Esterase Negative Urine RBC 0 Urine WBC 1-3 Ur Epithelial Cells 5-10 Urine Bacteria Rare Serum Ketones - EKG/XRAY/CT EKG: Sinus - @92BPM, NL INTERVALS, LAD, POOR R WAVE PROGRESSION, no ST T wave changes, Unchanged from - 04/02/18 XRAY: chest - NAD, PER RAD CT Ordered: No CT Interpretation Call Back: No Departure - Departure Clinical Impression: DKA (diabetic ketoacidosis), Elevated liver enzymes, Abdominal tenderness, generalized, Nausea & vomiting, Diarrhea, Diabetes mellitus type 1, uncontrolled , insulin dependent, Hx of diabetic gastroparesis Time of Disposition: 12:36 Disposition: Transfer to Hospital Departure Forms: ED Discharge - Pt. Copy, Patient Portal Self Enrollment Instructions: DI for Abdominal Pain-Adult Referrals: Joby Rangel MD [Primary Care Provider] - 1-2 Weeks Home Medications: Ambulatory Orders Zolpidem Tartrate [Ambien] 10 mg PO BEDTIME 04/09/16 Tizanidine HCl [Zanaflex] 8 mg PO TID 12/18/16 Insulin Detemir [Levemir Pen] 40 units SUBCU DAILY 01/07/17 Insulin Aspart [Novolog] 0 unit SC ACHS PRN 05/15/17 HYDROcodone 10MG/APAP 325MG [[place] 10325] 1 ea PO QID 08/12/17 Metoclopramide HCl [Reglan] 10 mg PO BID PRN 09/15/17 Mometasone Furoate [Elocon] 0.1 % TOP DAILY PRN 11/07/17 DiphenhydrAMINE HCL [Benadryl] 50 tablet TID PRN 12/31/17 Pregabalin [Lyrica] 300 mg PO BID 12/31/17 Ondansetron [Zofran Odt] 4 mg PO Q4H PRN #30 tab 01/01/18 Lurasidone HCl [Latuda] 80 mg PO DAILY 02/18/18 Metoclopramide HCl 10 mg PO Q8HR #30 tab 02/18/18 Nitrofurantoin Monohydrate Mac [Macrobid] 100 mg PO BID #14 capsule 03/20/18 Epinephrine [Epipen 2-Mikael] 0.3 mg IJ ONCE PRN #1 pack 03/26/18 Famotidine [Pepcid Tab] 20 mg PO BID 4 Days #8 tab 03/26/18 diphenhydrAMINE HCL [Benadryl] 25 mg PO Q6H PRN #12 cap 03/26/18 Sertraline HCl [Zoloft] 200 mg PO DAILY 05/03/18 Critical Care Note - Critical Care Note Total Time (mins): 48 Comments: CRITICAL EVENT: DKA,ELEVATED LIVER ENZYMES, NAUSEA AND VOMITING CRITICAL FINDINGS: PH 7.34, (+)BLOOD KETONES, CO2 14, GLUCOSE 240 CRITICAL ACTIONS: IV FLUID RESUSCITATION, IV ANTIEMETIC, IV NARCOTICS FOR PAIN CONTROL, CONSULTATION FOR TRANSFER Transfer to Outside Facility - Transfer Information Accepting Provider:: DR. TAN Accepting Facility: [facility] Reason for Transfer: specialized care not available
[2018-05-19] MEDS: MORPHINE SULFATE INJ 10 MG/ML VIAL IV ONE ×2 (11:40→13:13)
[2018-05-19] MEDS: ONDANSETRON INJ 4 MG/2 ML VIAL IV ONE (11:40)
[2018-05-19] MEDS: SODIUM CHLORIDE 0.9% 1000ML 1,000 ML IVS PRN (11:40)
--- NOTE | 2018-05-19 11:42 | RAD ---
EXAM DESCRIPTION: Chest,1 View CLINICAL HISTORY: 42 years Female, dka COMPARISON: 04/02/2018 IMPRESSION: Heart size and pulmonary vascularity are within normal limits. There is no airspace consolidation, pleural effusion, or pneumothorax. No acute osseous abnormality. Electronically signed by: Dyllan Santos MD 05/19/2018 11:40 AM CDT
[2018-05-19] MEDS: diazePAM 5 MG TAB PO ONE (12:16)
[2018-05-19] MEDS: SODIUM CHLORIDE 0.9% (FLUSH) 10 ML SYG IV PRN (12:26)
--- NOTE | 2018-05-19 12:57 | CT ---
Study: CT abdomen and pelvis. Indication: ABDOMINAL PAIN, N/V, ELEVATED LFTS Technique: Venous and delayed phase CT imaging of the abdomen and pelvis obtained after intravenous administration of contrast. This exam was performed according to our departmental dose-optimization program, which includes automated exposure control, adjustment of the mA and/or kV according to patient size and/or use of iterative reconstruction technique. Comparison: None. Findings: Cholecystomy clips. Questionable vague heterogeneity in the central left hepatic lobe as noted on axial image 21. The involved area is slightly hypodense and measures approximately 2.5 cm. Lower chest, pancreas, spleen, adrenal glands, kidneys, and bladder unremarkable. Uterus either surgically absent or small. Right adnexa unremarkable. Indeterminate 22 mm complex cystic left ovarian lesion. Moderate volume of stool within the rectosigmoid colon which can indicate constipation. Prior appendectomy. Stomach and small bowel unremarkable. No free fluid. No free air. No pathologically enlarged lymphadenopathy. No acute osseous abnormality. Impression: Questionable vague heterogeneity in the central aspect of the left hepatic lobe further characterization with MRI of the liver with and without contrast recommended. Mild constipation. Indeterminate complex cystic left ovarian lesion. Further characterization with pelvic sonogram recommended. Electronically signed by: German Garza MD 05/19/2018 12:56 PM CDT
[2018-05-19] MEDS ORDERED: MORPHINE SULFATE INJ 10 MG/ML VIAL ONE (13:08)
[2018-05-19 13:14] VITALS: BP 123/76; TEMP 96.7
== END 2018-05-19 13:14 | disposition short-term general hospital (02) ==
LOC: ER 10:26
DX: E10.10 Type 1 diabetes mellitus with ketoacidosis without coma (principal); R10.84 Generalized abdominal pain; R11.2 Nausea with vomiting, unspecified; R19.7 Diarrhea, unspecified; J45.909 Unspecified asthma, uncomplicated; F17.200 Nicotine dependence, unspecified, uncomplicated; Z87.19 Personal history of other diseases of the digestive system; Z79.4 Long term (current) use of insulin; Z79.899 Other long term (current) drug therapy
CPT/HCPCS: 36415; 36600; 71045; 74177; 80053; 81001; 82009; 82803; 82805; 82948; 85025; 93005; 94760; J2270; J2405; J7030

== ENCOUNTER 2018-06-04 13:32 | Emergency (ER) | payer MEDICARE, MEDICAID ==
--- NOTE | 2018-06-04 13:54 | ED.PDOC ---
History of Present Illness - General Time Seen by Provider: 06/04/18 13:51 Source: patient, RN notes reviewed Additional Information: 42 YEAR OLD BRITTLE DIABETIC WITH LONG STADING HISTORY OF GASTOPARESIS PRESENTS WITH ABDOMINAL PAIN RLQ SINCE YESTERDAY ASSOCIATED WITH NAUSEA VOMITING AND DIARRHEA DENIES FEVER CHILLS SHE FOLLOWS UP WITH GI AT [facility] [address] RUBIO - History of Present Illness Timing/Duration: 24 hours Severity: moderate Improving Factors: nothing Associated Symptoms: nausea/vomiting Allergies/Adverse Reactions: Allergies Fish Allergy Allergy (Verified 05/17/18 19:30) peanut Allergy (Severe, Uncoded 05/17/18 19:30) Home Medications: Ambulatory Orders Zolpidem Tartrate [Ambien] 10 mg PO BEDTIME 04/09/16 Tizanidine HCl [Zanaflex] 8 mg PO TID 12/18/16 Insulin Detemir [Levemir Pen] 40 units SUBCU DAILY 01/07/17 Insulin Aspart [Novolog] 0 unit SC ACHS PRN 05/15/17 HYDROcodone 10MG/APAP 325MG [[place]ana 10/325] 1 ea PO QID 08/12/17 Mometasone Furoate [Elocon] 0.1 % TOP DAILY PRN 11/07/17 Pregabalin [Lyrica] 300 mg PO BID 12/31/17 Ondansetron [Zofran Odt] 4 mg PO Q4H PRN #30 tab 01/01/18 Lurasidone HCl [Latuda] 80 mg PO DAILY 02/18/18 Epinephrine [Epipen 2-Mikael] 0.3 mg IJ ONCE PRN #1 pack 03/26/18 diphenhydrAMINE HCL [Benadryl] 25 mg PO Q6H PRN #12 cap 03/26/18 Sertraline HCl [Zoloft] 200 mg PO DAILY 05/03/18 Diazepam [Valium] 10 mg PO TID 05/19/18 Famotidine [Pepcid Tab] 20 mg PO BID PRN 05/19/18 Metoclopramide HCl 10 mg PO Q8HR PRN 05/19/18 Review of Systems - Review of Systems Constitutional: States: no symptoms reported EENTM: States: no symptoms reported Respiratory: States: no symptoms reported Cardiology: States: no symptoms reported Gastrointestinal/Abdominal: States: abdominal pain, diarrhea, vomiting Genitourinary: States: no symptoms reported Musculoskeletal: States: no symptoms reported Skin: States: no symptoms reported Neurological: States: no symptoms reported Endocrine: States: no symptoms reported Hematologic/Lymphatic: States: no symptoms reported Past Medical History (General) - Patient Medical History Hx Seizures: Yes Hx Stroke: No Hx Dementia: No Hx Asthma: Yes Hx of COPD: No Hx Cardiac Disorders: No Hx Congestive Heart Failure: No Hx Pacemaker: No Hx Hypertension: No Hx Thyroid Disease: No Hx Diabetes: Yes - Diabetic gastroparesis Hx Gastroesophageal Reflux: Yes Hx Renal Disease: No Hx Cancer: No Hx of HIV: No Hx Hepatitis C: No Hx MRSA: Yes MRSA Source:: Blood - Vaccination History Hx Tetanus, Diphtheria Vaccination: No Hx Influenza Vaccination: Yes Hx Pneumococcal Vaccination: No - Social History Hx Tobacco Use: Yes Hx Chewing Tobacco Use: No Hx Alcohol Use: No Hx Substance Use: No Hx Substance Use Treatment: No Hx Depression: No Hx Physical Abuse: No Hx Emotional Abuse: No Hx Suspected Abuse: No - Female History Hx Last Menstrual Period: 11/05/11 Patient : No Family Medical History - Family History Mother Family History: No Known Name: April Age (years): 67 Living Status: Still Living Hx Family Asthma: No Hx Family Congestive Heart Failure: No Hx Family Hypertension: No Hx Family Stroke: No Hx Cardiac Disease: No Hx Family Diabetes: No Hx Family Cancer: Yes - skin cancer Hx Family;Other: thyroid problems and seizures Father Family History: No Known Name: Marlon Age (years): 65 Living Status: Still Living Hx Family Asthma: - Sister Hx Family Congestive Heart Failure: No Hx Family Hypertension: Yes Hx Family Stroke: No Hx Cardiac Disease: Yes Hx Family Diabetes: No Age of Onset (years of age): 32 Hx Family Cancer: - Grandmother Lymphoma Physical Exam - Physical Exam General Appearance: Anxious, No apparent distress Ears, Nose, Throat: hearing grossly normal, normal ENT inspection, normal pharynx Neck: non-tender, full range of motion, supple Respiratory: chest non-tender, lungs clear, normal breath sounds, no respiratory distress, no accessory muscle use Cardiovascular/Chest: normal peripheral pulses, regular rate, rhythm, no edema, no gallop, no JVD, no murmur Gastrointestinal/Abdominal: normal bowel sounds, soft, no organomegaly, no pulsatile mass, tenderness, other - TENDER ON THE RLQ ON PALPATION Back Exam: normal inspection, no CVA tenderness Extremity: normal range of motion, non-tender, normal inspection, no pedal edema Neurologic: endband cutter hand II-XII nml as tested, no motor/sensory deficits, alert, normal mood/affect, oriented x 3 Skin Exam: normal color, warm/dry Lymphatic: no adenopathy Progress - Progress Progress: 06/04/18 16:00 Laboratory Tests 06/04/18 06/04/18 06/04/18 13:57 13:57 15:34 WBC 10.2 RBC 4.75 Hgb 13.0 Hct 40.0 MCV 84.3 MCH 27.3 MCHC 32.4 L RDW 14.5 Plt Count 243 MPV 9.2 Absolute Neuts (auto) 8.00 H Absolute Lymphs (auto) 1.70 Absolute Monos (auto) 0.40 Absolute Eos (auto) 0.10 Absolute Basos (auto) 0.10 Neutrophils % 78.1 H Lymphocytes % 16.5 L Monocytes % 3.6 Eosinophils % 1.3 Basophils % 0.5 Sodium 137 Potassium 4.5 Chloride 106 Carbon Dioxide 23 Anion Gap 12.5 BUN 8 Creatinine < 0.40 L BUN/Creatinine Ratio 20.0 Random Glucose 293 H Serum Osmolality 283.0 Calcium 9.2 Total Bilirubin 0.2 AST 22 ALT 23 Alkaline Phosphatase 137 H Serum Total Protein 7.0 Albumin 3.8 Globulin 3.2 Albumin/Globulin Ratio 1.2 Urine Color Yellow Urine Appearance Sl cloudy Urine pH 6.0 Ur Specific [place] <= 1.005 Urine Protein Negative Urine Glucose (UA) 500 H Urine Ketones Negative Urine Blood Trace-lysed H Urine Nitrite Negative Urine Bilirubin Negative Urine Urobilinogen 0.2 Ur Leukocyte Esterase Negative Urine RBC 0 Urine WBC 0 Ur Epithelial Cells 1-3 Urine Bacteria 0 - Results/Orders Results/Orders: ALL LAB DATA REVIEWED WITH PATIENT SHE STILL WANTING PAIN MED DONT SEE A NEED TO GIVE MORE NARCOTICS DECLINED ADVISED TO FOLLOW UP WITH HER PCP Departure - Departure Clinical Impression: Type II diabetes mellitus with complication, Gastroparesis Disposition: Discharge to Home or Self Care Referrals: Joby Rangel MD [Primary Care Provider] - 1-2 Weeks Home Medications: Ambulatory Orders Zolpidem Tartrate [Ambien] 10 mg PO BEDTIME 04/09/16 Tizanidine HCl [Zanaflex] 8 mg PO TID 12/18/16 Insulin Detemir [Levemir Pen] 40 units SUBCU DAILY 01/07/17 Insulin Aspart [Novolog] 0 unit SC ACHS PRN 05/15/17 HYDROcodone 10MG/APAP 325MG [[place] 10325] 1 ea PO QID 08/12/17 Mometasone Furoate [Elocon] 0.1 % TOP DAILY PRN 11/07/17 Pregabalin [Lyrica] 300 mg PO BID 12/31/17 Ondansetron [Zofran Odt] 4 mg PO Q4H PRN #30 tab 01/01/18 Lurasidone HCl [Latuda] 80 mg PO DAILY 02/18/18 Epinephrine [Epipen 2-Mikael] 0.3 mg IJ ONCE PRN #1 pack 03/26/18 diphenhydrAMINE HCL [Benadryl] 25 mg PO Q6H PRN #12 cap 03/26/18 Sertraline HCl [Zoloft] 200 mg PO DAILY 05/03/18 Diazepam [Valium] 10 mg PO TID 05/19/18 Famotidine [Pepcid Tab] 20 mg PO BID PRN 05/19/18 Metoclopramide HCl 10 mg PO Q8HR PRN 05/19/18
[2018-06-04] MEDS ORDERED: fentaNYL CITRATE INJ 50 MCG/ML AMP IV ONE (13:57)
[2018-06-04] MEDS ORDERED: ONDANSETRON INJ 4 MG/2 ML VIAL IV ONE (13:58)
[2018-06-04] MEDS ORDERED: SODIUM CHLORIDE 0.9% 1000ML 1,000 ML IVS ONE (13:58)
[2018-06-04 16:14] VITALS: BP 129/84; TEMP 98.6; O2SAT 96
== END 2018-06-04 17:00 | disposition home or self-care (01) ==
LOC: ER 13:32
DX: E11.43 Type 2 diabetes mellitus with diabetic autonomic (poly)neuropathy (principal); K31.84 Gastroparesis; K21.9 Gastro-esophageal reflux disease without esophagitis; J45.909 Unspecified asthma, uncomplicated; Z79.899 Other long term (current) drug therapy; Z87.891 Personal history of nicotine dependence; Z91.013 Allergy to seafood

== ENCOUNTER 2018-06-06 14:25 | Emergency (ER) | payer MEDICARE, MEDICAID ==
[2018-06-06] MEDS ORDERED: SODIUM CHLORIDE 0.9% 1000ML 1,000 ML IVS ONE (15:03)
[2018-06-06] MEDS ORDERED: PROMETHAZINE HCL INJ 25 MG in SODIUM CHLORIDE 0.9% 50ML 50 ML IVPB ONE (15:39)
[2018-06-06] MEDS ORDERED: PROMETHAZINE HCL INJ 25 MG/ML VIAL ONE (15:40)
[2018-06-06] MEDS ORDERED: SODIUM CHLORIDE 0.9% 50ML 50 ML ONE (15:41)
[2018-06-06] MEDS ORDERED: INSULIN, REG.(HUMAN) 100 U/ML VIAL IV ONE (15:59)
[2018-06-06] MEDS ORDERED: KETOROLAC TROMETHAMINE INJ 30 MG/ML VIAL IV ONE (16:00)
[2018-06-06] MEDS ORDERED: INSULIN, REG.(HUMAN) 250 UNITS in SODIUM CHL 0.9% 250ML (AVIVA) 247.5 ML IVPB SCH ×2 (16:00)
[2018-06-06] MEDS ORDERED: SODIUM CHL 0.9% 250ML (AVIVA) 250 ML IVPB ONE (16:06)
[2018-06-06] MEDS ORDERED: INSULIN, REG.(HUMAN) 100 U/ML VIAL ONE (16:06)
[2018-06-06] MEDS ORDERED: SODIUM CHLORIDE 0.9% 1000ML 1,000 ML IVS PRN (17:43)
--- NOTE | 2018-06-06 18:49 | ED.PDOC ---
History of Present Illness - General Chief Complaint: General Time Seen by Provider: 06/06/18 14:25 Source: patient Exam Limitations: no limitations - History of Present Illness Initial Comments: Patient presents with acute on chronic abdominal pain. She has diabetic gastroparesis and takes hydrocodone at home. She says that she has been vomiting and hasn't been able to hold down her hydrocodone in the last two days. No other complaints. Timing/Duration: 24 hours Severity: moderate Improving Factors: nothing Worsening Factors: nothing Associated Symptoms: denies symptoms Allergies/Adverse Reactions: Allergies Fish Allergy Allergy (Verified 05/17/18 19:30) peanut Allergy (Severe, Uncoded 05/17/18 19:30) Home Medications: Ambulatory Orders Zolpidem Tartrate [Ambien] 10 mg PO BEDTIME 04/09/16 Tizanidine HCl [Zanaflex] 8 mg PO TID 12/18/16 Insulin Detemir [Levemir Pen] 40 units SUBCU DAILY 01/07/17 Insulin Aspart [Novolog] 0 unit SC ACHS PRN 05/15/17 HYDROcodone 10MG/APAP 325MG [[place] 10/325] 1 ea PO QID 08/12/17 Mometasone Furoate [Elocon] 0.1 % TOP DAILY PRN 11/07/17 Pregabalin [Lyrica] 300 mg PO BID 12/31/17 Ondansetron [Zofran Odt] 4 mg PO Q4H PRN #30 tab 01/01/18 Lurasidone HCl [Latuda] 80 mg PO DAILY 02/18/18 Epinephrine [Epipen 2-Mikael] 0.3 mg IJ ONCE PRN #1 pack 03/26/18 diphenhydrAMINE HCL [Benadryl] 25 mg PO Q6H PRN #12 cap 03/26/18 Sertraline HCl [Zoloft] 200 mg PO DAILY 05/03/18 Diazepam [Valium] 10 mg PO TID 05/19/18 Famotidine [Pepcid Tab] 20 mg PO BID PRN 05/19/18 Metoclopramide HCl 10 mg PO Q8HR PRN 05/19/18 Dicyclomine HCl [Bentyl] 20 mg PO Q6HRS #30 tab 06/04/18 Review of Systems - Review of Systems Constitutional: States: no symptoms reported EENTM: States: no symptoms reported Respiratory: States: no symptoms reported Cardiology: States: no symptoms reported Gastrointestinal/Abdominal: States: see HPI Genitourinary: States: no symptoms reported Musculoskeletal: States: no symptoms reported Skin: States: no symptoms reported Neurological: States: no symptoms reported Endocrine: States: see HPI Hematologic/Lymphatic: States: no symptoms reported Past Medical History (General) - Patient Medical History Hx Seizures: Yes Hx Stroke: No Hx Dementia: No Hx Asthma: Yes Hx of COPD: No Hx Cardiac Disorders: No Hx Congestive Heart Failure: No Hx Pacemaker: No Hx Hypertension: No Hx Thyroid Disease: No Hx Diabetes: Yes - Diabetic gastroparesis Hx Gastroesophageal Reflux: Yes Hx Renal Disease: No Hx Cancer: No Hx of HIV: No Hx Hepatitis C: No Hx MRSA: Yes MRSA Source:: Blood Surgical History: no surgical history - Vaccination History Hx Tetanus, Diphtheria Vaccination: No Hx Influenza Vaccination: Yes Hx Pneumococcal Vaccination: No - Social History Hx Tobacco Use: Yes Hx Chewing Tobacco Use: No Hx Alcohol Use: No Hx Substance Use: No Hx Substance Use Treatment: No Hx Depression: No Hx Physical Abuse: No Hx Emotional Abuse: No Hx Suspected Abuse: No - Female History Hx Last Menstrual Period: 11/05/11 Patient : No Family Medical History - Family History Mother Family History: No Known Name: April Age (years): 67 Living Status: Still Living Hx Family Asthma: No Hx Family Congestive Heart Failure: No Hx Family Hypertension: No Hx Family Stroke: No Hx Cardiac Disease: No Hx Family Diabetes: No Hx Family Cancer: Yes - skin cancer Hx Family;Other: thyroid problems and seizures Father Family History: No Known Name: Marlon Age (years): 65 Living Status: Still Living Hx Family Asthma: - Sister Hx Family Congestive Heart Failure: No Hx Family Hypertension: Yes Hx Family Stroke: No Hx Cardiac Disease: Yes Hx Family Diabetes: No Age of Onset (years of age): 32 Hx Family Cancer: - Grandmother Lymphoma Physical Exam - Physical Exam General Appearance: Alert Respiratory: lungs clear, normal breath sounds Cardiovascular/Chest: normal peripheral pulses, regular rate, rhythm, no edema Gastrointestinal/Abdominal: normal bowel sounds, non tender, soft Back Exam: normal inspection, no CVA tenderness Progress - Progress Progress: 06/06/18 19:15 Laboratory Tests 06/06/18 06/06/18 06/06/18 14:42 15:33 15:33 WBC 7.4 RBC 4.86 Hgb 13.6 Hct 41.6 MCV 85.6 MCH 27.9 MCHC 32.6 L RDW 14.7 H Plt Count 247 MPV 9.2 Absolute Neuts (auto) 5.90 Absolute Lymphs (auto) 1.00 Absolute Monos (auto) 0.30 Absolute Eos (auto) 0.10 Absolute Basos (auto) 0.10 Neutrophils % 79.9 H Lymphocytes % 14.1 L Monocytes % 4.0 Eosinophils % 1.3 Basophils % 0.7 Sodium 130 L Potassium 5.2 H Chloride 101 Carbon Dioxide 20 L Anion Gap 14.2 BUN 12 Creatinine 0.60 D BUN/Creatinine Ratio 20.0 POC Glucose > 400 H* Random Glucose 485 H* Serum Osmolality 281.8 Calcium 9.3 Total Bilirubin 0.4 AST 33 ALT 35 Alkaline Phosphatase 152 H Serum Total Protein 7.2 Albumin 4.1 Globulin 3.1 Albumin/Globulin Ratio 1.3 Lipase Urine Color Urine Appearance Urine pH Ur Specific Council Urine Protein Urine Glucose (UA) Urine Ketones Urine Blood Urine Nitrite Urine Bilirubin Urine Urobilinogen Ur Leukocyte Esterase Urine RBC Urine WBC Ur Epithelial Cells Urine Bacteria Urine Opiates Screen Urine Barbiturates Ur Phencyclidine Scrn U Amphetamin/Meth Scrn U Benzodiazepines Scrn U Cocaine Metab Screen U Cannabinoids Screen Serum Ketones 06/06/18 06/06/18 06/06/18 15:33 15:33 15:50 WBC RBC Hgb Hct MCV MCH MCHC RDW Plt Count MPV Absolute Neuts (auto) Absolute Lymphs (auto) Absolute Monos (auto) Absolute Eos (auto) Absolute Basos (auto) Neutrophils % Lymphocytes % Monocytes % Eosinophils % Basophils % Sodium Potassium Chloride Carbon Dioxide Anion Gap BUN Creatinine BUN/Creatinine Ratio POC Glucose Random Glucose Serum Osmolality Calcium Total Bilirubin AST ALT Alkaline Phosphatase Serum Total Protein Albumin Globulin Albumin/Globulin Ratio Lipase 37 Urine Color Yellow Urine Appearance Clear Urine pH 6.0 Ur Specific Council 1.015 Urine Protein Negative Urine Glucose (UA) 500 H Urine Ketones Negative Urine Blood Small H Urine Nitrite Negative Urine Bilirubin Negative Urine Urobilinogen 0.2 Ur Leukocyte Esterase Negative Urine RBC 0 Urine WBC 0 Ur Epithelial Cells 3-5 Urine Bacteria 0 Urine Opiates Screen Negative Urine Barbiturates Negative Ur Phencyclidine Scrn Negative U Amphetamin/Meth Scrn Negative U Benzodiazepines Scrn Positive H U Cocaine Metab Screen Negative U Cannabinoids Screen Negative Serum Ketones Negative 06/06/18 17:30 WBC RBC Hgb Hct MCV MCH MCHC RDW Plt Count MPV Absolute Neuts (auto) Absolute Lymphs (auto) Absolute Monos (auto) Absolute Eos (auto) Absolute Basos (auto) Neutrophils % Lymphocytes % Monocytes % Eosinophils % Basophils % Sodium 137 Potassium 3.6 D Chloride 109 Carbon Dioxide 19 L Anion Gap 12.6 BUN 11 Creatinine < 0.40 L D BUN/Creatinine Ratio 27.0 H POC Glucose Random Glucose 197 H D Serum Osmolality 278.7 Calcium 8.6 Total Bilirubin AST ALT Alkaline Phosphatase Serum Total Protein Albumin Globulin Albumin/Globulin Ratio Lipase Urine Color Urine Appearance Urine pH Ur Specific Council Urine Protein Urine Glucose (UA) Urine Ketones Urine Blood Urine Nitrite Urine Bilirubin Urine Urobilinogen Ur Leukocyte Esterase Urine RBC Urine WBC Ur Epithelial Cells Urine Bacteria Urine Opiates Screen Urine Barbiturates Ur Phencyclidine Scrn U Amphetamin/Meth Scrn U Benzodiazepines Scrn U Cocaine Metab Screen U Cannabinoids Screen Serum Ketones Initial blood sugar 485. No ketones in blood or urine. Patient given 20 ml/kg IV NS. potassium was 5.3. She was given human insulin 7 IU bolus x one and started on 7 IU/hour. Her blood sugar came down to 197 and insulin was stopped. She was given Toradol 30 mg IV x one. She wanted narcotics and I explained to her that she already has narcotics at home (that she claims), she has gastroparesis which could make it worse, and that this is a chronic problem and she needs follow up with a pain specialist or pcp. She voiced understanding. No narcotics are indicated at this time. Departure - Departure Clinical Impression: Hyperglycemia Disposition: Discharge to Home or Self Care Condition: Good Departure Forms: ED Discharge - Pt. Copy, Patient Portal Self Enrollment Diet: diabetic diet Activity: increase activity as tolerated Referrals: Joby Rangel MD [Primary Care Provider] - 1-2 Weeks Home Medications: Ambulatory Orders Zolpidem Tartrate [Ambien] 10 mg PO BEDTIME 04/09/16 Tizanidine HCl [Zanaflex] 8 mg PO TID 12/18/16 Insulin Detemir [Levemir Pen] 40 units SUBCU DAILY 01/07/17 Insulin Aspart [Novolog] 0 unit SC ACHS PRN 05/15/17 HYDROcodone 10MG/APAP 325MG [Flasher 10/325] 1 ea PO QID 08/12/17 Mometasone Furoate [Elocon] 0.1 % TOP DAILY PRN 11/07/17 Pregabalin [Lyrica] 300 mg PO BID 12/31/17 Ondansetron [Zofran Odt] 4 mg PO Q4H PRN #30 tab 01/01/18 Lurasidone HCl [Latuda] 80 mg PO DAILY 02/18/18 Epinephrine [Epipen 2-Mikael] 0.3 mg IJ ONCE PRN #1 pack 03/26/18 diphenhydrAMINE HCL [Benadryl] 25 mg PO Q6H PRN #12 cap 03/26/18 Sertraline HCl [Zoloft] 200 mg PO DAILY 05/03/18 Diazepam [Valium] 10 mg PO TID 05/19/18 Famotidine [Pepcid Tab] 20 mg PO BID PRN 05/19/18 Metoclopramide HCl 10 mg PO Q8HR PRN 05/19/18 Dicyclomine HCl [Bentyl] 20 mg PO Q6HRS #30 tab 06/04/18 Additional Instructions: Use nausea medications to help you take in oral foods and medications. See your regular doctor on Saturday regarding your chronic pain complaints.
[2018-06-06 19:16] VITALS: TEMP 99.2; O2SAT 98
[2018-06-06] MEDS ORDERED: ONDANSETRON ODT (ER DISP) 8 MG TAB PO ONE (19:20)
[2018-06-06 19:55] VITALS: BP 118/74
== END 2018-06-06 19:35 | disposition home or self-care (01) ==
LOC: ER 14:25
DX: E11.65 Type 2 diabetes mellitus with hyperglycemia (principal); E11.43 Type 2 diabetes mellitus with diabetic autonomic (poly)neuropathy; K31.84 Gastroparesis; K21.9 Gastro-esophageal reflux disease without esophagitis; J45.909 Unspecified asthma, uncomplicated; Z79.899 Other long term (current) drug therapy; Z87.891 Personal history of nicotine dependence; Z79.4 Long term (current) use of insulin; Z91.013 Allergy to seafood
CPT/HCPCS: 36415; 36416; 80048; 80053; 80307; 81001; 82009; 82948; 83690; 85025; A4216; J1885; J2550; J7030

== ENCOUNTER 2018-06-07 21:10 | Inpatient (IN) | payer MEDICARE, MEDICAID ==
[2018-06-07] MEDS ORDERED: SODIUM CHLORIDE 0.9% 1000ML 1,000 ML IVS ONE (21:24)
[2018-06-07] MEDS ORDERED: PROMETHAZINE HCL INJ 25 MG in SODIUM CHLORIDE 0.9% 50ML 50 ML IVPB ONE (21:24)
[2018-06-07] MEDS ORDERED: METOCLOPRAMIDE HCL INJ 10 MG/2 ML VIAL IV ONE (21:24)
[2018-06-07] MEDS ORDERED: MORPHINE SULFATE INJ 10 MG/ML VIAL IV ONE (21:24)
--- NOTE | 2018-06-07 21:47 | RAD ---
EXAM DESCRIPTION: KUB CLINICAL HISTORY: 42 years Female pain COMPARISON: None. TECHNIQUE: Single view of the abdomen. FINDINGS: The upper abdomen was not entirely included on the film. No dilated loops of bowel to suggest obstruction. IMPRESSION: No acute plain film abnormality is identified. Electronically signed by: Mignon Lisa MD 06/07/2018 9:46 PM CDT
[2018-06-07] MEDS ORDERED: PROMETHAZINE HCL INJ 25 MG/ML VIAL ONE (22:21)
[2018-06-07] MEDS ORDERED: SODIUM CHLORIDE 0.9% 50ML 50 ML ONE (22:22)
[2018-06-07] MEDS ORDERED: INSULIN, REG.(HUMAN) 250 UNITS in SODIUM CHL 0.9% 250ML (AVIVA) 247.5 ML IVPB SCH ×2 (22:30)
--- NOTE | 2018-06-07 22:58 | ED.PDOC ---
History of Present Illness - General Chief Complaint: Diabetic Complaint Stated Complaint: my sugar is high Time Seen by Provider: 06/07/18 21:11 Source: patient, EMS Exam Limitations: no limitations - History of Present Illness Initial Comments: patient comes in today with 2 three-day history of nausea, vomiting, abdominal pain, an uncontrolled blood sugars. Patient has a long history of type 1 diabetes with multiple recurrent bouts of DKA. Patient states her blood sugar has been reading high for the past 2 days. She was here yesterday in the emergency room and sent home. Patient denies any fever, chills, cough or cold symptoms. She has been having chronic abdominal pain, dysuria, and hematuria is undergoing workup with urology. Patient states she has been unable to keep down her anxiety nor her pain medication. Timing/Duration: getting worse, other - 2-3 days of symptoms Severity: severe Improving Factors: nothing Worsening Factors: eating Associated Symptoms: weakness Allergies/Adverse Reactions: Allergies Fish Allergy Allergy (Verified 05/17/18 19:30) peanut Allergy (Severe, Uncoded 05/17/18 19:30) Home Medications: Ambulatory Orders Zolpidem Tartrate [Ambien] 10 mg PO BEDTIME 04/09/16 Tizanidine HCl [Zanaflex] 8 mg PO TID 12/18/16 Insulin Detemir [Levemir Pen] 40 units SUBCU DAILY 01/07/17 Insulin Aspart [Novolog] 0 unit SC ACHS PRN 05/15/17 HYDROcodone 10MG/APAP 325MG [[place] 10325] 1 ea PO QID 08/12/17 Mometasone Furoate [Elocon] 0.1 % TOP DAILY PRN 11/07/17 Pregabalin [Lyrica] 300 mg PO BID 12/31/17 Ondansetron [Zofran Odt] 4 mg PO Q4H PRN #30 tab 01/01/18 Lurasidone HCl [Latuda] 80 mg PO DAILY 02/18/18 Epinephrine [Epipen 2-Mikael] 0.3 mg IJ ONCE PRN #1 pack 03/26/18 diphenhydrAMINE HCL [Benadryl] 25 mg PO Q6H PRN #12 cap 03/26/18 Sertraline HCl [Zoloft] 200 mg PO DAILY 05/03/18 Diazepam [Valium] 10 mg PO TID 05/19/18 Famotidine [Pepcid Tab] 20 mg PO BID PRN 05/19/18 Metoclopramide HCl 10 mg PO Q8HR PRN 05/19/18 Dicyclomine HCl [Bentyl] 20 mg PO Q6HRS #30 tab 06/04/18 Review of Systems - Review of Systems Constitutional: States: weakness. Denies: chills, fever EENTM: States: no symptoms reported. Denies: eye pain, blurred vision, ear pain , nose pain, nose congestion, throat pain Respiratory: States: no symptoms reported. Denies: cough, short of breath, wheezing Cardiology: States: no symptoms reported. Denies: chest pain, edema, palpitations, syncope Gastrointestinal/Abdominal: States: abdominal pain, nausea, vomiting Genitourinary: States: see HPI, dysuria, hematuria Musculoskeletal: States: back pain - chronic Skin: States: no symptoms reported Neurological: States: no symptoms reported Endocrine: States: see HPI Past Medical History (General) - Patient Medical History Hx Seizures: Yes Hx Stroke: No Hx Dementia: No Hx Asthma: Yes Hx of COPD: No Hx Cardiac Disorders: No Hx Congestive Heart Failure: No Hx Pacemaker: No Hx Hypertension: No Hx Thyroid Disease: No Hx Diabetes: Yes - Diabetic gastroparesis Hx Gastroesophageal Reflux: Yes Hx Renal Disease: No Hx Cancer: No Hx of HIV: No Hx Hepatitis C: No Hx MRSA: Yes MRSA Source:: Blood Surgical History: appendectomy, cholecystectomy, Hysterectomy - Vaccination History Hx Tetanus, Diphtheria Vaccination: No Hx Influenza Vaccination: Yes Hx Pneumococcal Vaccination: Yes Immunizations Up to Date: No - Social History Hx Tobacco Use: Yes Hx Chewing Tobacco Use: No Hx Alcohol Use: No Hx Substance Use: No Hx Substance Use Treatment: No Hx Depression: Yes Feels Threatened In Home Enviroment: No Feels Threatened In a Relationship: No Hx Physical Abuse: No Hx Emotional Abuse: No Hx Suspected Abuse: No - Female History Patient is a Female of Child Bearing Age (10 -59 yrs old): Yes - Had hystarectomy Hx Last Menstrual Period: 11/05/11 Patient : No - Triage Comment ED Triage Comment: glucose meter at home read >500, pt c/o abd cramping, nausea , vomiting, Family Medical History - Family History Mother Family History: No Known Name: April Age (years): 67 Living Status: Still Living Hx Family Asthma: No Hx Family Congestive Heart Failure: No Hx Family Hypertension: No Hx Family Stroke: No Hx Cardiac Disease: No Hx Family Diabetes: No Hx Family Cancer: Yes - skin cancer Hx Family;Other: thyroid problems and seizures Father Family History: No Known Name: Marlon Age (years): 65 Living Status: Still Living Hx Family Asthma: - Sister Hx Family Congestive Heart Failure: No Hx Family Hypertension: Yes Hx Family Stroke: No Hx Cardiac Disease: Yes Hx Family Diabetes: No Age of Onset (years of age): 32 Hx Family Cancer: - Grandmother Lymphoma Physical Exam - Physical Exam General Appearance: Alert, Obvious distress, Ill Appearing Eye Exam: bilateral normal Ears, Nose, Throat: hearing grossly normal, normal ENT inspection, normal pharynx Neck: non-tender, full range of motion, supple, normal inspection Respiratory: chest non-tender, lungs clear, normal breath sounds, no respiratory distress Cardiovascular/Chest: normal peripheral pulses, regular rate, rhythm, no edema, no gallop, no JVD, no murmur Peripheral Pulses: radial,right: 2+, radial,left: 2+ Gastrointestinal/Abdominal: normal bowel sounds, soft, other - TTP to RLQ without rebound or guarding Back Exam: normal inspection, no CVA tenderness Neurologic: no motor/sensory deficits, alert, oriented x 3 Progress - Progress Progress: 06/08/18 00:29 patient remains stable with no emesis, and sleeping. BS is still high but lactic acid responding. Discussed with industrial production manager Rafa Roper. Will admit for diabetic acidotic hyperglycemia - Results/Orders Results/Orders: 06/07/18 22:16 UA [URINALYSIS] Stat 06/07/18 22:30 Insulin, Reg.(Human) [HumuLIN R] 250 units Sodium Chl 0.9% 250Ml (Radha) [NS 250ml (RADHA)] 247.5 ml IVPB Q12H Laboratory Results WBC 6.4 K/mm3 (4.8-10.8) 06/07/18 21:00 RBC 4.74 M/mm3 (4.20-5.40) 06/07/18 21:00 Hgb 13.3 gm/dL (12.0-16.0) 06/07/18 21:00 Hct 41.1 % (36.0-47.0) 06/07/18 21:00 MCV 86.7 fl (81.0-99.0) 06/07/18 21:00 MCH 28.1 pg (27.0-31.0) 06/07/18 21:00 MCHC 32.4 g/dL (33.0-37.0) L 06/07/18 21:00 RDW 15.1 % (11.5-14.5) H 06/07/18 21:00 Plt Count 262 K/mm3 (130-400) 06/07/18 21:00 MPV 9.5 fl (7.40-10.4) 06/07/18 21:00 Absolute Neuts (auto) 4.10 K/uL (1.8-6.8) 06/07/18 21:00 Absolute Lymphs (auto) 1.70 K/uL (1.0-3.4) 06/07/18 21:00 Absolute Monos (auto) 0.50 K/uL (0.2-0.8) 06/07/18 21:00 Absolute Eos (auto) 0.10 K/uL (0.0-0.4) 06/07/18 21:00 Absolute Basos (auto) 0.00 K/uL (0.0-0.1) 06/07/18 21:00 Neutrophils % 64.2 % (42.0-78.0) 06/07/18 21:00 Lymphocytes % 26.3 % (20.0-50.0) 06/07/18 21:00 Monocytes % 7.4 % (2.0-9.0) 06/07/18 21:00 Eosinophils % 1.7 % (1.0-5.0) 06/07/18 21:00 Basophils % 0.4 % (0.0-2.0) 06/07/18 21:00 pCO2 35 mmHg (32-45) 06/07/18 22:04 pO2 72 mmHg (83-108) L 06/07/18 22:04 HCO3 19.6 mmol/L 06/07/18 22:04 ABG pH 7.370 (7.35-7.45) 06/07/18 22:04 ABG O2 Saturation 97.4 % (95.0-99.0) 06/07/18 22:04 ABG Base Excess -4.5 mmol/L 06/07/18 22:04 ABG Deoxyhemoglobin 2.3 % (0.0-5.0) 06/07/18 22:04 Oxyhemoglobin % 85.3 % (94.0-98.0) L 06/07/18 22:04 Carboxyhemoglobin % 11.3 % (0.5-1.5) H 06/07/18 22:04 Methemoglobin % Sat 1.0 % (0.0-1.5) 06/07/18 22:04 Calc Total Hemoglobin 11.4 g/dL (12.0-16.0) L 06/07/18 22:04 Sodium 135 mmol/L (135-145) 06/07/18 21:00 Potassium 4.5 mmol/L (3.6-5.0) 06/07/18 21:00 Chloride 105 mmol/L (101-111) 06/07/18 21:00 Carbon Dioxide 21 mmol/L (21-31) 06/07/18 21:00 Anion Gap 13.5 (12-18) 06/07/18 21:00 BUN 11 mg/dL (7-18) 06/07/18 21:00 Creatinine 0.78 mg/dL (0.6-1.3) 06/07/18 21:00 BUN/Creatinine Ratio 14.1 (10-20) 06/07/18 21:00 Random Glucose 603 mg/dL (70-105) H* 06/07/18 21:00 Serum Osmolality 297.0 mOsm/L (275-295) H 06/07/18 21:00 Lactic Acid 2.6 mmol/L (0.5-2.2) H* 06/07/18 21:40 Calcium 8.7 mg/dL (8.4-10.2) 06/07/18 21:00 Total Bilirubin 0.4 mg/dL (0.2-1.0) 06/07/18 21:00 AST 32 IU/L (10-42) 06/07/18 21:00 ALT 32 IU/L (10-60) 06/07/18 21:00 Alkaline Phosphatase 145 IU/L (42-121) H 06/07/18 21:00 Serum Total Protein 7.4 gm/dL (6.4-8.2) 06/07/18 21:00 Albumin 4.0 g/dl (3.2-5.5) 06/07/18 21:00 Globulin 3.4 gm/dL (2.3-3.5) 06/07/18 21:00 Albumin/Globulin Ratio 1.2 (1.1-1.9) 06/07/18 21:00 Serum Ketones Negative 06/07/18 21:00 Departure - Departure Clinical Impression: Acidosis, metabolic, Dehydration, Gastroparesis, Hyperglycemia due to type 1 diabetes mellitus Disposition: Admit Patient Condition: Good Departure Forms: ED Discharge - Pt. Copy, Patient Portal Self Enrollment Instructions: DI for Diabetes Type 2 Referrals: Joby Rangel MD [Primary Care Provider] - 1-2 Weeks Home Medications: Ambulatory Orders Zolpidem Tartrate [Ambien] 10 mg PO BEDTIME 04/09/16 Tizanidine HCl [Zanaflex] 8 mg PO TID 12/18/16 Insulin Detemir [Levemir Pen] 40 units SUBCU DAILY 01/07/17 Insulin Aspart [Novolog] 0 unit SC ACHS PRN 05/15/17 HYDROcodone 10MG/APAP 325MG [[place] 10/325] 1 ea PO QID 08/12/17 Mometasone Furoate [Elocon] 0.1 % TOP DAILY PRN 11/07/17 Pregabalin [Lyrica] 300 mg PO BID 12/31/17 Ondansetron [Zofran Odt] 4 mg PO Q4H PRN #30 tab 01/01/18 Lurasidone HCl [Latuda] 80 mg PO DAILY 02/18/18 Epinephrine [Epipen 2-Mikael] 0.3 mg IJ ONCE PRN #1 pack 03/26/18 diphenhydrAMINE HCL [Benadryl] 25 mg PO Q6H PRN #12 cap 03/26/18 Sertraline HCl [Zoloft] 200 mg PO DAILY 05/03/18 Diazepam [Valium] 10 mg PO TID 05/19/18 Famotidine [Pepcid Tab] 20 mg PO BID PRN 05/19/18 Metoclopramide HCl 10 mg PO Q8HR PRN 05/19/18 Dicyclomine HCl [Bentyl] 20 mg PO Q6HRS #30 tab 06/04/18
[2018-06-07] MEDS ORDERED: INSULIN, REG.(HUMAN) 100 U/ML VIAL ONE (23:07)
[2018-06-07] MEDS ORDERED: SODIUM CHL 0.9% 250ML (AVIVA) 250 ML IVPB ONE (23:07)
[2018-06-08] MEDS ORDERED: MORPHINE SULFATE INJ 10 MG/ML VIAL IV ONE (01:03)
[2018-06-08] MEDS ORDERED: SODIUM CHLORIDE 0.9% 1000ML 1,000 ML IVS ONE (01:08)
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
[2018-06-08] MEDS: SODIUM CHLORIDE 0.9% (FLUSH) 10 ML SYG IV PRN ×3 (01:42→04:19)
[2018-06-08] MEDS: ONDANSETRON INJ 4 MG/2 ML VIAL IV PRN ×3 (01:42→17:27)
[2018-06-08] MEDS ORDERED: INSULIN, REG.(HUMAN) 250 UNITS in SODIUM CHL 0.9% 250ML (AVIVA) 247.5 ML IVPB SCH ×2 (02:00)
[2018-06-08] MEDS: IV SET AND CAP CHANGE INJ INJ SCH (02:17)
[2018-06-08] MEDS ORDERED: KCL 20MEQ/0.45% NS 1,000 ML IVS PRN (02:41)
[2018-06-08] MEDS ORDERED: KCL 20MEQ/0.45% NS 0 ML IVS ONE (02:53)
[2018-06-08] MEDS: DEX 5% W/NACL 0.45% 1000ML 1,000 ML IVS PRN ×5 (03:16→20:19)
[2018-06-08] MEDS: MORPHINE SULFATE INJ 10 MG/ML VIAL IV PRN ×5 (04:18→20:40)
[2018-06-08] MEDS ORDERED: MAGNESIUM SULFATE PREMIX 2GM 2 GM in PREMIX BAG 1 BAG IVPB ONE (08:55)
[2018-06-08] MEDS ORDERED: DEXTROSE 50% 25 GM/50 ML SYG IV PRN (09:13)
[2018-06-08] MEDS ORDERED: GLUCAGON INJ 1 MG VIAL SUBCU PRN (09:13)
[2018-06-08] MEDS ORDERED: MAGNESIUM SULFATE PREMIX 2GM 50 ML IVPB ONE (09:21)
[2018-06-08] MEDS: INSULIN DETEMIR 100 UNITS/ML PEN SUBCU SCH (09:24)
[2018-06-08] MEDS ORDERED: METOCLOPRAMIDE HCL INJ 10 MG/2 ML VIAL IV ONE (09:25)
[2018-06-08] MEDS ORDERED: METOCLOPRAMIDE HCL INJ 10 MG/2 ML VIAL ONE (09:26)
[2018-06-08] MEDS ORDERED: INSULIN LISPRO 100 UNITS/ML PEN SUBCU SCH (11:30)
[2018-06-08] MEDS: PANTOPRAZOLE SODIUM IV 40 MG VIAL IV SCH (12:02)
[2018-06-08] MEDS: INSULIN LISPRO 100 UNITS/ML PEN SUBCU SCH ×2 (12:14→18:29)
--- NOTE | 2018-06-08 12:43 | CT ---
PROCEDURE: Abdomen/Pelvis w/Contrast HISTORY: LLQ and RLQ pain; N/V Indication: Same as above Comparison: None . Technique: CT of the abdomen and pelvis was done with intravenous contrast. Images were obtained from the lung base to the level of the pubic symphysis in axial plane, followed by orthogonal sagittal and coronal reconstruction. Oral contrast was not given for the study. The patient was injected with radiographic contrast intravenously, without any documented immediate adverse reactions. This exam was performed according to our departmental dose-optimization program, which includes automated exposure control, adjustment of the mA and/or KV according to the patient's size and/or use of iterative reconstruction technique. FINDINGS: Images through the lung bases show mild left lingular and bibasilar infiltrate/atelectasis The liver, pancreas, spleen and the bilateral adrenal glands appear unremarkable. There is prior cholecystectomy The bilateral kidneys enhance with contrast in a normal fashion. The urinary bladder is unremarkable . The bilateral ureters and the bilateral periureteral soft tissues and fat planes are unremarkable. The small bowel appears unremarkable, without any evidence of small bowel obstruction or bowel wall thickening. There is no CT evidence of pericecal inflammatory change or ileocecal mesenteric adenitis. The appendix is surgically absent The ileocecal junction appears unremarkable. There is no CT evidence of acute colonic diverticulitis or colitis or large bowel obstruction. The splenic and portal veins are of normal caliber, without any filling defects. There is no pathological lymphadenopathy in the retroperitoneum or in the pelvic region. There is no evidence of free air in the abdomen or the pelvic region. There is no clinically significant abdominal aortic aneurysm. There is no clinically significant inguinal or ventral hernia.. Benign peripherally enhancing dominant small follicular cyst is seen in the right ovary not requiring any imaging follow-up. In the left ovary there is presence of a septated 3.6 x 4.1 cm cyst most likely benign and can be followed up with ultrasound in 6-12 weeks interval. Trace amount of free fluid is also seen in the dependent portion of the pelvis The visualized lumbar spine is unremarkable . The paravertebral soft tissues are unremarkable. The remainder of the pelvic structures are unremarkable. IMPRESSION: Benign peripherally enhancing dominant small follicular cyst is seen in the right ovary not requiring any imaging follow-up. In the left ovary there is presence of a septated 3.6 x 4.1 cm cyst most likely benign and can be followed up with ultrasound in 6-12 weeks interval. Trace amount of free fluid is also seen in the dependent portion of the pelvis Electronically signed by: London Chung MD 06/08/2018 12:42 PM [facility] Workstation: [id number]
[2018-06-08] MEDS ORDERED: PROMETHAZINE HCL INJ 12.5 MG in SODIUM CHLORIDE 0.9% 50ML 50 ML IVPB ONE (13:18)
[2018-06-08] MEDS ORDERED: SODIUM CHLORIDE 0.9% 50ML 50 ML ONE ×2 (13:20→21:38)
[2018-06-08] MEDS ORDERED: PROMETHAZINE HCL INJ 25 MG/ML VIAL ONE ×2 (13:20→21:38)
[2018-06-08] MEDS: NICOTINE PATCH 14 MG TD SCH (14:52)
[2018-06-08] MEDS: diphenhydrAMINE HCL 50 MG/ML VIAL IV PRN ×2 (17:05→21:46)
[2018-06-08] MEDS ORDERED: ALBUTEROL SULFATE 2.5 MG/3 ML VIAL NEB PRN (17:36)
[2018-06-08] MEDS: ALBUTEROL SULFATE 2.5 MG/3 ML VIAL NEB SCH ×2 (17:52→20:45)
[2018-06-08] MEDS ORDERED: INSULIN DETEMIR 100 UNITS/ML PEN SUBCU ONE (18:26)
[2018-06-08] MEDS: ENOXAPARIN SODIUM 40 MG/0.4 ML SYG SUBCU SCH (20:40)
[2018-06-08] MEDS ORDERED: KCL 20MEQ/0.45% NS 1,000 ML IVS ONE (21:03)
[2018-06-08] MEDS: PROMETHAZINE HCL INJ 25 MG in SODIUM CHLORIDE 0.9% 50ML 50 ML IVPB PRN (21:45)
[2018-06-09] MEDS: INSULIN LISPRO 100 UNITS/ML PEN SUBCU SCH ×4 (00:19→20:56)
[2018-06-09] MEDS: MORPHINE SULFATE INJ 10 MG/ML VIAL IV PRN ×6 (00:40→23:28)
[2018-06-09] MEDS: DEX 5% W/NACL 0.45% 1000ML 1,000 ML IVS PRN (03:58)
[2018-06-09] MEDS: ONDANSETRON INJ 4 MG/2 ML VIAL IV PRN (06:19)
[2018-06-09] MEDS ORDERED: PROMETHAZINE HCL INJ 25 MG/ML VIAL ONE ×4 (08:08→21:16)
[2018-06-09] MEDS ORDERED: SODIUM CHLORIDE 0.9% 50ML 50 ML ONE ×4 (08:10→21:17)
[2018-06-09] MEDS: PROMETHAZINE HCL INJ 25 MG in SODIUM CHLORIDE 0.9% 50ML 50 ML IVPB PRN ×4 (08:24→21:21)
[2018-06-09] MEDS: diphenhydrAMINE HCL 50 MG/ML VIAL IV PRN ×4 (08:24→21:19)
[2018-06-09] MEDS: SODIUM CHLORIDE 0.9% (FLUSH) 10 ML SYG IV PRN ×5 (08:25→17:31)
[2018-06-09] MEDS: ALBUTEROL SULFATE 2.5 MG/3 ML VIAL NEB SCH ×4 (08:26→20:07)
[2018-06-09] MEDS ORDERED: LURASIDONE HCL 80 MG PO SCH (09:00)
[2018-06-09] MEDS: INSULIN DETEMIR 100 UNITS/ML PEN SUBCU SCH (09:09)
[2018-06-09] MEDS: SERTRALINE HCL 50 MG TAB PO SCH (09:31)
[2018-06-09] MEDS: PREGABALIN 100 MG CAP PO SCH ×2 (09:31→20:17)
[2018-06-09] MEDS: NICOTINE PATCH 14 MG TD SCH (09:31)
[2018-06-09] MEDS: diazePAM 5 MG TAB PO SCH ×3 (09:31→20:19)
[2018-06-09] MEDS: HYDROcodone 10MG/APAP 325MG 1 EA TAB PO SCH ×4 (09:32→20:17)
[2018-06-09] MEDS: METOCLOPRAMIDE HCL INJ 10 MG/2 ML VIAL IV SCH ×2 (11:29→16:47)
[2018-06-09] MEDS: PANTOPRAZOLE SODIUM IV 40 MG VIAL IV SCH (12:07)
--- NOTE | 2018-06-09 12:35 | US ---
EXAM DESCRIPTION: Pelvis Transvaginal: Ultrasound. CLINICAL HISTORY: r/o left ovarian infarct and eval of cyst. Prior hysterectomy. COMPARISON: CT abdomen and pelvis with IV contrast 06/08/2018. TECHNIQUE: Endovaginal scanning; [place]-scale and Doppler modes. Technically difficult study due to patient body habitus and pain. FINDINGS: Uterus surgically absent. Cul-de-sac contains minimal fluid. Right ovary 2.3 x 1.6 x 1.4 cm. Waveform and color Doppler vascularity. Small follicles but no cysts. No adnexal mass or free fluid. Left ovary 3.3 x 2.2 x 1.9 cm . No vascularity by waveform; Trace color Doppler vascularity. Heterogeneous hypoechoic regions with no definite follicles or cysts. Posterior enhancement features are noted. No adnexal mass or free fluid. IMPRESSION: 1. Left ovary was visualized but difficult to distinguish internal contents, and only trace color vascularity detected. No waveforms. Appeared partially cystic and partially solid on CT scan. Fluid in the cul-de-sac. May represent complex ovarian cysts. Consider surgical consult. 2. Right ovary visualized with small follicles and normal Doppler vascularity. 3. Vaginal cuff unremarkable. Minimal fluid in the cul-de-sac. Electronically signed by: Marlon Proctor MD 06/09/2018 12:33 PM [facility]
[2018-06-09] MEDS ORDERED: INSULIN LISPRO 100 UNITS/ML PEN SUBCU ONE (13:36)
[2018-06-09] MEDS ORDERED: METOCLOPRAMIDE HCL INJ 10 MG/2 ML VIAL IV ONE (16:30)
[2018-06-09] MEDS ORDERED: GLUCAGON INJ 1 MG VIAL SUBCU PRN (16:32)
[2018-06-09] MEDS ORDERED: KCL 20MEQ/0.45% NS 1,000 ML IVS ONE (17:05)
[2018-06-09] MEDS: KCL 20MEQ/0.45% NS 1,000 ML IVS PRN (17:08)
[2018-06-09] MEDS: ENOXAPARIN SODIUM 40 MG/0.4 ML SYG SUBCU SCH (20:19)
[2018-06-09] MEDS ORDERED: INSULIN DETEMIR 100 UNITS/ML PEN SUBCU ONE (21:34)
--- NOTE | 2018-06-09 21:43 | PN ---
DATE: 06/09/18 SUPERVISING PHYSICIAN: Aristides Alvarado M.D. SUBJECTIVE: The patient continues to have some nausea but has actually been able to tolerate clear liquids. She has been afebrile. Her blood sugar has been fairly well controlled. She continues to have severe ongoing abdominal pain with which we have addressed both with CT and a vaginal ultrasound. I have explained to her that it appears that there is no clear answer as to her pain, although the ultrasound did show a possible significant decreased flow to her left ovary and I discussed this with Dr. Rangel. The patient understands that she is working to go home later tonight or tomorrow as soon as she can tolerate oral diet. OBJECTIVE: VITAL SIGNS: Temperature 98.0, pulse 92, blood pressure 110/76, respirations 18, satting 100% on room air. GENERAL: The patient is resting comfortably. Appears to be in no distress, although she voices that she is having ongoing abdominal pains. CHEST: Clear to auscultation. HEART: Regular rate and rhythm. ABDOMEN: Remains tender diffusely but no rebound tenderness. Bowel sounds are present. EXTREMITIES: Without any clubbing, cyanosis or edema. NEUROLOGIC: She is alert and oriented times three. LABORATORY: Chemistries have now normalized as well as her CBC. Blood sugars remain fairly controlled but ranging from 83 to 320. MICROBIOLOGY: MRSA surveillance culture is pending. Clostridium Difficile is pending. RADIOLOGY: A transvaginal ultrasound shows left ovary visualized but difficult to distinguish internal contents and only trace of color vascularity detected. No wave forms. They appeared partially cystic and partially solid on CT scan with some fluid in the cul-de-sac which could represent a complex ovarian cyst with surgical consultation recommended. Right ovary visualized with small follicles and normal Doppler vascularity. The vaginal cuff is unremarkable. Minimal fluid in the cul-de-sac per Dr. Marlon Proctor, radiologist. ASSESSMENT: 1. Partially compensated metabolic acidosis secondary to hyperglycemia and developing DKA in a type 1 diabetic requiring initiation of aggressive management with patient initially having a lactic acid possibly contributing to the metabolic process with the patient now showing normalization for metabolic panels and continued requiring aggressive management with IV fluids and the patient now yet tolerating a full 1800 calorie ADA diet. 2. Concerns for a possible left ovary infarct as noted on vaginal ultrasound findings today with possibly the origin of some of her abdominal pains. Dr. Rangel recommended the patient be discharged when she is ready to go home and followup with him in the clinic to further evaluate and treat the findings. 3. History of gastroparesis which is secondary to poorly controlled diabetes contributing to her ongoing nausea and vomiting. 4. Nausea and vomiting due to gastroparesis resulting in severe dehydration secondary to #1 and #2 now improving with fluids and treatment. 5. Electrolyte imbalance to include hypomagnesemia, improved with replacement. 6. Chronic back pain on chronic narcotics. 7. Chronic tobacco abuse. 8. Chronic obstructive pulmonary disease without any signs of exacerbation in a current smoker. PLAN: I was hoping to be able to discharge the patient later today as we were working to get her on an oral diet, however she continues to have some nausea and is hesitant to try an 1800 calorie ADA diet until later this afternoon. If we can transition her to oral intake adequately enough to discharge, hopefully we can discharge tomorrow and followup with Dr. Rangel this week in regards to the findings on the ultrasound. She continues to require ongoing pain management. Will work to transition her to p.o. medication in anticipation of discharge. Will transition her fluids to half normal saline with 20 of potassium as she starts eating more and go to a.c. and h.s. on the Accu-Cheks. I have been utilizing Levemir for her blood sugars which has been fairly erratic at times and difficult to manage, but hopefully when she is able to do oral intake this will be a little bit less of a struggle. Again, hopefully be able to discharge tomorrow. Until then will continue to monitor and treat as needed. #[id number] [facility]
[2018-06-10] MEDS ORDERED: PROMETHAZINE HCL INJ 25 MG/ML VIAL ONE ×2 (01:14→06:03)
[2018-06-10] MEDS ORDERED: SODIUM CHLORIDE 0.9% 50ML 50 ML ONE ×2 (01:14→06:04)
[2018-06-10] MEDS: diphenhydrAMINE HCL 50 MG/ML VIAL IV PRN ×4 (01:20→20:27)
[2018-06-10] MEDS: PROMETHAZINE HCL INJ 25 MG in SODIUM CHLORIDE 0.9% 50ML 50 ML IVPB PRN ×2 (01:20→06:11)
[2018-06-10] MEDS: MORPHINE SULFATE INJ 10 MG/ML VIAL IV PRN ×4 (06:11→18:19)
[2018-06-10] MEDS ORDERED: KCL 20MEQ/0.45% NS 1,000 ML IVS ONE (06:12)
[2018-06-10] MEDS: KCL 20MEQ/0.45% NS 1,000 ML IVS PRN (06:13)
[2018-06-10] MEDS: METOCLOPRAMIDE HCL INJ 10 MG/2 ML VIAL IV SCH ×3 (07:04→16:43)
[2018-06-10] MEDS: INSULIN LISPRO 100 UNITS/ML PEN SUBCU SCH ×4 (07:04→21:04)
[2018-06-10] MEDS: NICOTINE PATCH 14 MG TD SCH (08:01)
[2018-06-10] MEDS: HYDROcodone 10MG/APAP 325MG 1 EA TAB PO SCH ×4 (08:01→20:25)
[2018-06-10] MEDS: SERTRALINE HCL 50 MG TAB PO SCH (08:02)
[2018-06-10] MEDS: diazePAM 5 MG TAB PO SCH ×3 (08:02→20:25)
[2018-06-10] MEDS: PREGABALIN 100 MG CAP PO SCH ×2 (08:02→20:25)
[2018-06-10] MEDS ORDERED: ONDANSETRON 4 MG TAB PO PRN (08:28)
[2018-06-10] MEDS: INSULIN DETEMIR 100 UNITS/ML PEN SUBCU SCH (08:40)
[2018-06-10] MEDS: ALBUTEROL SULFATE 2.5 MG/3 ML VIAL NEB SCH ×4 (08:59→20:08)
--- NOTE | 2018-06-10 10:37 | PN ---
SUPERVISING PHYSICIAN: Aristides Alvarado MD DATE: 06/10/18 SUBJECTIVE: The patient continues complaints of nausea and vomiting although no one has seen any emesis and she has no one has seen her throw up. She also complains of abdominal pain related to her ovary and says she is not getting pain relief from the scheduled hydrocodone. I have explained that we had to titrate down her morphine and she understands. She also says she has an appointment with Dr. Paul, GI specialist, tomorrow and we will try to titrate her off her IV medications and discharge her tomorrow prior to her appointment with the GI doctor. OBJECTIVE: VITAL SIGNS: Afebrile. Heart rate 76. Blood pressure 108/74. Respiratory rate 18. O2 saturation 100% on room air. RESPIRATORY: Essentially clear to auscultation bilaterally. CARDIAC: Regular rate and rhythm. GASTROINTESTINAL: Abdomen is soft, nondistended. It is slightly tender to the left upper quadrant, but very mildly tender. Bowel sounds are positive. There is no CVA tenderness. There is no rebound tenderness. EXTREMITIES: No cyanosis, clubbing or edema. NEUROLOGIC: Awake, alert and oriented times three. LABORATORY: Blood sugars have run between 113 and 320. All other labs and films have been reviewed via the EMR. ASSESSMENT: 1. Partially compensated metabolic acidosis secondary to hyperglycemia and developing diabetic ketoacidosis in a type 1 diabetic requiring initiation of aggressive management with patient initially having a lactic acid possibly contributing to the metabolic process with the patient now showing normalization for metabolic panels and continued requiring aggressive management with IV fluids and the patient not yet tolerating a full 1800 calorie ADA diet. 2. Concerns for a possible left ovary infarct as noted on vaginal ultrasound findings today with possibly the origin of some of her abdominal pains. Dr. Rangel recommended the patient be discharged when she is ready to go home and followup with him in the clinic to further evaluate and treat the findings. 3. History of gastroparesis which is secondary to poorly controlled diabetes contributing to her ongoing nausea and vomiting. 4. Nausea and vomiting due to gastroparesis resulting in severe dehydration, now improved. There has been no noted emesis in 48 hours. 5. Electrolyte imbalance to include hypomagnesemia, improved with replacement. 6. Chronic back pain on chronic narcotics. 7. Chronic tobacco abuse. 8. Chronic obstructive pulmonary disease without any signs of exacerbation in a current smoker. PLAN: We will continue present supportive care. I have discontinued her IV Zofran and changed her to oral Zofran. She did ask for one additional clear liquid noon meal and then she will be transitioned to full liquids tonight and if no emesis, she will have a diabetic diet in the morning. Her IV fluids have been discontinued as she is taking p.o. without any issues. I have decreased her morphine down to 2 mg IV q.4h. until 6 AM tomorrow and we will try to transition her off of the IV morphine. Tomorrow in addition to her scheduled [place], I have added an extra 5 mg [place] as needed for pain. She has an appointment with Dr. Paul tomorrow and then she has an appointment with Dr. Rangel, ELEMENTARY SUPERVISOR, on Saturday. We will continue to monitor the patient closely and follow as needed. #[id number] [facility]
[2018-06-10] MEDS: PANTOPRAZOLE SODIUM IV 40 MG VIAL IV SCH (11:36)
[2018-06-10] MEDS: ENOXAPARIN SODIUM 40 MG/0.4 ML SYG SUBCU SCH (20:26)
[2018-06-10] MEDS: SODIUM CHLORIDE 0.9% (FLUSH) 10 ML SYG IV PRN (20:28)
[2018-06-11] MEDS ORDERED: HYDROcodone 5MG/APAP 325MG 1 EA TAB ONE (01:59)
[2018-06-11] MEDS: HYDROcodone 5MG/APAP 325MG 1 EA TAB PO PRN ×2 (02:03→09:40)
[2018-06-11] MEDS: diphenhydrAMINE HCL 50 MG/ML VIAL IV PRN ×2 (02:20→06:26)
[2018-06-11] MEDS: MORPHINE SULFATE INJ 10 MG/ML VIAL IV PRN ×2 (02:25→06:22)
[2018-06-11] MEDS: IV SET AND CAP CHANGE INJ INJ SCH (03:01)
[2018-06-11] MEDS: METOCLOPRAMIDE HCL INJ 10 MG/2 ML VIAL IV SCH (06:29)
[2018-06-11] MEDS: INSULIN LISPRO 100 UNITS/ML PEN SUBCU SCH (07:13)
[2018-06-11] MEDS: INSULIN DETEMIR 100 UNITS/ML PEN SUBCU SCH (08:35)
[2018-06-11] MEDS: diazePAM 5 MG TAB PO SCH (08:59)
[2018-06-11] MEDS: SERTRALINE HCL 50 MG TAB PO SCH (08:59)
[2018-06-11] MEDS: HYDROcodone 10MG/APAP 325MG 1 EA TAB PO SCH (09:00)
[2018-06-11] MEDS: PREGABALIN 100 MG CAP PO SCH (09:00)
[2018-06-11] MEDS: NICOTINE PATCH 14 MG TD SCH (09:00)
[2018-06-11] MEDS: ALBUTEROL SULFATE 2.5 MG/3 ML VIAL NEB SCH (09:02)
[2018-06-11 09:37] VITALS: BP 102/68; TEMP 98.4; O2SAT 97
[2018-06-11] MEDS ORDERED: LORazepam 1 MG TAB PO PRN (10:00)
[2018-06-11] MEDS ORDERED: diphenhydrAMINE HCL 25 MG CAP PO PRN ×2 (10:31→11:00)
--- NOTE | 2018-06-11 11:03 | DS ---
SUPERVISING PHYSICIAN: Aristides Alvarado MD DISCHARGE DIAGNOSIS: 1. Partially compensated metabolic acidosis secondary to hyperglycemia and developing diabetic ketoacidosis in a type 1 diabetic requiring initiation of aggressive management with patient initially having a lactic acid possibly contributing to the metabolic process with the patient now showing normalization for metabolic panels and continued requiring aggressive management with IV fluids and the patient not yet tolerating a full 1800 calorie ADA diet. 2. Concerns for a possible left ovary infarct as noted on vaginal ultrasound findings today with possibly the origin of some of her abdominal pains. Dr. Rangel recommended the patient be discharged when she is ready to go home and followup with him in the clinic to further evaluate and treat the findings. 3. History of gastroparesis which is secondary to poorly controlled diabetes contributing to her ongoing nausea and vomiting. 4. Nausea and vomiting due to gastroparesis resulting in severe dehydration, now improved. There has been no noted emesis in 48 hours. 5. Electrolyte imbalance to include hypomagnesemia, improved with replacement. 6. Chronic back pain on chronic narcotics. 7. Chronic tobacco abuse. 8. Chronic obstructive pulmonary disease without any signs of exacerbation in a current smoker. HISTORY OF PRESENT ILLNESS: This is a 42-year-old female patient with a longstanding history of uncontrolled type 1 diabetes. She presented to the Emergency Department during the night after she was reportedly having 2 or 3 days of nausea and vomiting, abdominal pain and poorly controlled blood sugars. She has been in the hospital multiple times for DKA as well as significant issues with gastroparesis. She had noted her blood sugar had been reading high for well over 2 days and actually been seen in the Emergency Room on previous day and was discharged. She denied any fever or chills but does have ongoing chronic abdominal pain with some notable dysuria and hematuria and is currently being followed by a urologist. She had been unable to take any of her medications including her normal chronic pain medications as well as Valium for anxiety and is concerned that she is going to develop worsening problems with possible DKA. Her initial workup in the Emergency Room showed she had a blood sugar on admission that was 603, but ketones were negative. Blood gas analysis showed a pH of 7.37. Chemistries showed normal electrolytes except for elevated blood sugar at 147. Her anion gap was negative, but she did have an elevated lactic acid. Given the patient's inability tolerate oral intake and is a poorly controlled type 1 diabetic with clinical signs and symptoms indicating possibly developing DKA, she was aggressively treated in the Emergency Room. The Emergency Room doctor, Dr. Davis initially tried fluids in the Emergency Room. The patient was slow to respond, in fact, her blood sugar went up after being put on insulin drip initially. It was requested the patient be admitted for ongoing treatment of developing DKA and ongoing nausea and vomiting. It was also noted after visiting with the patient that she had been recently seen and treated at [facility] for an abscess to her left buttocks and was started on Bactrim which she was on at the time she started having nausea and vomiting. HOSPITAL COURSE: The patient was admitted to the Medical/Surgical Floor for concerns for developing diabetic ketoacidosis. She was initially started on the DKA protocol though she had negative ketones. She was starting to show an anion gap and had increased lactic acid. After she received fluids, her lactic acid normalized. She continued complaints of abdominal pain and a CT of the abdomen with contrast was obtained. On CT of the abdomen, images through the lung bases showed mild left lingular and bibasilar infiltrates/atelectasis. The liver, pancreas, spleen and bilateral adrenal glands are unremarkable. Prior cholecystectomy. Bilateral kidneys enhance with contrast in a normal fashion. Urinary bladder was unremarkable. Bilateral ureters and bilateral periureteral soft tissues and fat planes unremarkable. Small bowel appears unremarkable without any evidence of small bowel obstruction or bowel wall thickening. There are benign peripherally enhancing dominant small follicular cysts in the right ovary, not requiring any imaging followup. In the left ovary , there is presence of septated 3.6 x 4.1 cm cyst, most likely benign and can be followed up with ultrasound in 6 to 12 weeks with trace amount of free fluid also seen in the dependent portion of the pelvis. She was also placed on bowel rest and all of her medications were transitioned to IV. She transitioned off of the drip and placed on sliding scale insulin a.c. and h.s. as well as her diet was advanced. She did frequently complain of nausea and vomiting, although none of the staff ever actually saw the emesis. An ultrasound was done that showed left ovary visualized, but difficult to distinguish internal content and only trace of color vascularity detected. There were no waveforms. They appeared partially cystic and partially solid on CT scan with fluid in the cul-de-sac which could represent a complex ovarian cyst with surgical consultation recommended. She continued to complain of pain. Her morphine was continued. Dr. Rangel, her DIRECTOR OF STRATEGIC COMMUNICATIONS, was consulted as outpatient and she has an appointment with him on Saturday in regards to the findings on CT and ultrasound. All of her lab work normalized. Last night, she was transitioned to p.o. pain medications as well as her home medications and this morning, she will be discharged home in stable condition. DISCHARGE PLAN: The patient will be discharged home in stable condition. She is to resume her diabetic diet and advance it as tolerated. She is to resume her previous medications. She has a followup appointment with Dr. Rangel on 04/22 at 3:[address] and ultrasound results. She has a followup with Dr. Paul, GI specialist, on 06/16/18. She has a pain management tomorrow and then a procedure from pain management on Saturday. She is to return to the hospital or call Dr. Rangel for any further problems or complications. DISCHARGE MEDICATIONS: 1. Zolpidem. 2. Tizanidine. 3. NovoLog insulin. 4. Hydrocodone. 5. Elocon. 6. Lyrica. 7. Zofran. 8. Latuda. 9. Diphenhydramine. 10. EpiPen. 11. Sertraline. 12. Diazepam. 13. Famotidine. 14. Metoclopramide. 15. Dicyclomine. 16. Lantus insulin. #[id number] MTDD
== END 2018-06-11 10:33 | disposition home or self-care (01) | DRG 639 ==
LOC: ER 21:10 → MS 06-08 01:33
PROVIDERS: ADMIT Nurse Practitioner Family; ATTEND Nurse Practitioner Acute Care
DX: E10.10 Type 1 diabetes mellitus with ketoacidosis without coma (principal); E86.0 Dehydration; E10.43 Type 1 diabetes mellitus with diabetic autonomic (poly)neuropathy; K31.84 Gastroparesis; J44.9 Chronic obstructive pulmonary disease, unspecified; F17.210 Nicotine dependence, cigarettes, uncomplicated; L30.9 Dermatitis, unspecified; E10.42 Type 1 diabetes mellitus with diabetic polyneuropathy; M79.7 Fibromyalgia; G89.29 Other chronic pain; M54.9 Dorsalgia, unspecified; F41.9 Anxiety disorder, unspecified; F32.9 Major depressive disorder, single episode, unspecified; Z91.010 Allergy to peanuts; Z91.013 Allergy to seafood; E83.42 Hypomagnesemia

== ENCOUNTER 2018-06-19 17:28 | Emergency (ER) | payer MEDICARE, MEDICAID ==
[2018-06-19 17:51] VITALS: O2SAT 100
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
[2018-06-19] MEDS ORDERED: LACTATED RINGERS 1,000 ML IVS ONE (17:55)
[2018-06-19] MEDS ORDERED: PANTOPRAZOLE SODIUM IV 40 MG VIAL IV ONE (17:55)
[2018-06-19] MEDS ORDERED: MAGNESIUM SULFATE PREMIX 2GM 2 GM in PREMIX BAG 1 BAG IVPB ONE (18:38)
--- NOTE | 2018-06-19 18:39 | RAD ---
EXAM DESCRIPTION: Chest,1 View CLINICAL HISTORY: N/V COMPARISON: May 19, 2018 FINDINGS: Cardiac silhouette is within normal limits. There is no focal parenchymal or pleural disease. There is no acute osseous process visualized. IMPRESSION: No evidence of acute cardiopulmonary disease. Electronically signed by: Varun Hemphill MD 06/19/2018 6:38 PM FACILITIES ENGINEER
--- NOTE | 2018-06-19 18:39 | RAD ---
EXAM DESCRIPTION: Abdomen 1 View CLINICAL HISTORY: N/V COMPARISON: None FINDINGS: Supine and upright images of the abdomen were submitted. There is no free air in the abdomen. There is no evidence of bowel obstruction. Calcifications within the pelvis compatible with phleboliths. Surgical clips are noted in the right upper quadrant compatible with prior cholecystectomy. There is incomplete fusion of the posterior elements of the S1 level. IMPRESSION: No acute abnormalities. Electronically signed by: Varun Hemphill MD 06/19/2018 6:37 PM JACK SETTER
[2018-06-19] MEDS ORDERED: MAGNESIUM SULFATE PREMIX 2GM 50 ML IVPB ONE (18:49)
[2018-06-19] MEDS ORDERED: MORPHINE SULFATE INJ 10 MG/ML VIAL IV ONE ×2 (19:01→22:50)
[2018-06-19] MEDS ORDERED: SODIUM CHLORIDE 0.9% 1000ML 1,000 ML IVS ONE (19:33)
[2018-06-19] MEDS ORDERED: PROCHLORPERAZINE INJ 10 MG/2 ML VIAL IV ONE (21:36)
[2018-06-19] MEDS ORDERED: DEX 5% W/NACL 0.45% 1000ML 1,000 ML IVS PRN (21:38)
[2018-06-19] MEDS ORDERED: GLUCOSE GEL 31 GM TUBE PO ONE ×2 (22:06→22:08)
[2018-06-19] MEDS ORDERED: SUCRALFATE 1 GM/10 ML 1 GM UD PO ONE (22:51)
[2018-06-19 23:46] VITALS: BP 129/71; TEMP 98.8
== END 2018-06-19 23:46 | disposition home or self-care (01) ==
LOC: ER 17:28
DX: E10.43 Type 1 diabetes mellitus with diabetic autonomic (poly)neuropathy (principal); K31.84 Gastroparesis; R79.89 Other specified abnormal findings of blood chemistry; E83.42 Hypomagnesemia; E86.0 Dehydration; J45.909 Unspecified asthma, uncomplicated; J21.9 Acute bronchiolitis, unspecified; F32.9 Major depressive disorder, single episode, unspecified; Z90.49 Acquired absence of other specified parts of digestive tract; Z87.891 Personal history of nicotine dependence
CPT/HCPCS: 36415; 36416; 71045; 74018; 80048; 80076; 81001; 82550; 82553; 82948; 83690; 84484; 85025; 85610; 85730; J0780; J2060; J2270; J3475; J7030; J7120; J7799

== ENCOUNTER 2018-06-20 17:50 | Emergency (ER) | payer MEDICARE, MEDICAID ==
[2018-06-20] MEDS ORDERED: SODIUM CHLORIDE 0.9% 1000ML 1,000 ML IVS ONE (18:31)
[2018-06-20] MEDS ORDERED: PROCHLORPERAZINE INJ 10 MG/2 ML VIAL IV ONE (18:31)
--- NOTE | 2018-06-20 18:57 | RAD ---
EXAM DESCRIPTION: Abdomen Series CLINICAL HISTORY: 42 years Female ,nv after botox stomach 2d ago COMPARISON: None. TECHNIQUE: Frontal view chest x-ray and two views of the abdomen. FINDINGS: The cardiomediastinal silhouette appears unremarkable. No consolidating infiltrates or pleural effusions. No free air is identified beneath the hemidiaphragms. No dilated loops of bowel to suggest obstruction. IMPRESSION: No acute plain film abnormality is identified. Electronically signed by: Marlon Louise 06/20/2018 6:56 PM [facility]
[2018-06-20] MEDS ORDERED: MAGNESIUM SULFATE PREMIX 4GM 4 GM in PREMIX BAG 1 BAG IVPB ONE (19:23)
[2018-06-20] MEDS ORDERED: SUCRALFATE 1 GM/10 ML 1 GM UD PO ONE (19:24)
[2018-06-20] MEDS ORDERED: MAGNESIUM SULFATE PREMIX 4GM 50 ML IVPB ONE (19:31)
[2018-06-20] MEDS ORDERED: SCOPOLAMINE PATCH 1.5MG 1 EA TD ONE (20:15)
[2018-06-20] MEDS ORDERED: PROMETHAZINE HCL INJ 12.5 MG in SODIUM CHLORIDE 0.9% 50ML 50 ML IVPB ONE (20:53)
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
[2018-06-20] MEDS ORDERED: SODIUM CHLORIDE 0.9% 50ML 50 ML ONE (21:31)
[2018-06-20] MEDS ORDERED: PROMETHAZINE HCL INJ 25 MG/ML VIAL ONE (21:31)
[2018-06-20 22:22] VITALS: TEMP 97.9
[2018-06-20 22:23] VITALS: O2SAT 98
[2018-06-20 22:29] VITALS: BP 125/50
== END 2018-06-20 22:10 | disposition home or self-care (01) ==
LOC: ER 17:50
DX: R11.2 Nausea with vomiting, unspecified (principal); E83.42 Hypomagnesemia; E11.9 Type 2 diabetes mellitus without complications; K21.9 Gastro-esophageal reflux disease without esophagitis; F32.9 Major depressive disorder, single episode, unspecified; J45.909 Unspecified asthma, uncomplicated; Z90.49 Acquired absence of other specified parts of digestive tract; Z79.899 Other long term (current) drug therapy; Z79.4 Long term (current) use of insulin; Z91.013 Allergy to seafood; Z87.891 Personal history of nicotine dependence
CPT/HCPCS: 36415; 74019; 80053; 82150; 83605; 83690; 83735; 85025; A4216; J0780; J2550; J3475; J7030

== ENCOUNTER 2018-06-25 10:58 | Emergency (ER) | payer MEDICARE, MEDICAID ==
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
[2018-06-25] MEDS ORDERED: SODIUM CHLORIDE 0.9% 1000ML 1,000 ML IVS ONE ×2 (12:10→14:28)
[2018-06-25] MEDS ORDERED: ONDANSETRON INJ 4 MG/2 ML VIAL IV ONE (12:10)
[2018-06-25] MEDS ORDERED: ALPRAZolam 0.25 MG TAB PO ONE (12:40)
--- NOTE | 2018-06-25 13:12 | RAD ---
EXAM DESCRIPTION: Chest,2 Views CLINICAL HISTORY: dyspnea COMPARISON: None TECHNIQUE: PA/lateral FINDINGS: There is no acute appearing cardiac or pulmonary abnormality. Heart size is normal with normal pulmonary vascularity. No pleural effusion or pneumothorax. Lungs are clear with no consolidating infiltrate. Lateral view shows intact sternum and T-spine. IMPRESSION: No acute process is identified in the chest. Electronically signed by: Tera Luis MD 06/25/2018 1:11 PM SETTLEMENT PROCESSOR
[2018-06-25] MEDS ORDERED: INSULIN, REG.(HUMAN) 100 U/ML VIAL IV ONE (14:27)
[2018-06-25] MEDS ORDERED: POTASSIUM CHLORIDE 20 MEQ TAB PO ONE ×2 (14:28→17:00)
--- NOTE | 2018-06-25 14:58 | CT ---
EXAM DESCRIPTION: CT ABDOMEN AND PELVIS WITH CONTRAST CLINICAL HISTORY: abdominal pain, N/V COMPARISON: Previous study June 08, 2018 TECHNIQUE: CT of the abdomen and pelvis are performed during IV bolus administration of usual adult does of nonionic iodinated contrast. No oral contrast. FINDINGS: In the lower chest, the lung bases are clear. Heart size is normal. CT abdomen Gallbladder clips are present. Otherwise the liver, spleen, pancreas, adrenal glands, stomach and kidneys are unremarkable in appearance. No inflammation around the pancreas. No renal stones or hydronephrosis. No bowel dilatation to suggest obstruction. No free air or free fluid. CT pelvis Appendix is surgically absent. No inflammation around the cecum or terminal ileum or sigmoid colon. Bladder and distal ureters are negative for stones. Normal enhancement of pelvic vessels. No inguinal or lower pelvic adenopathy. Uterus and right ovary are not identified. The left ovary appears normal. Bone window images are negative for fracture or lytic lesion. Coronal and sagittal reformatted images confirm the findings. Compared to previous study, no worrisome change. Left ovarian cysts are smaller. IMPRESSION: No acute upper abdominal process. No acute process in the pelvis. This exam was performed according to our departmental dose-optimization program, which includes automated exposure control, adjustment of the mA and/or kV according to patient size and/or use of iterative reconstruction technique. Total DLP equals 539.24 mGycm. Electronically signed by: eTra Luis MD 06/25/2018 2:57 PM GROUND PRODUCTS DIRECTOR
[2018-06-25] MEDS ORDERED: PANTOPRAZOLE SODIUM IV 40 MG VIAL IV ONE (15:09)
[2018-06-25] MEDS ORDERED: DEX 5% W/NACL 0.45% 1000ML 1,000 ML IVS PRN (16:20)
[2018-06-25] MEDS ORDERED: KCL 20MEQ/WATER FOR INJ 100ML 20 MEQ in PREMIX BAG 1 BAG IVPB ONE (16:22)
[2018-06-25] MEDS ORDERED: INSULIN, REG.(HUMAN) 250 UNITS in SODIUM CHL 0.9% 250ML (AVIVA) 247.5 ML IVPB SCH ×2 (16:30)
[2018-06-25] MEDS ORDERED: SODIUM CHL 0.9% 250ML (AVIVA) 250 ML IVPB ONE (16:38)
[2018-06-25] MEDS ORDERED: KCL 20MEQ/WATER FOR INJ 100ML 100 ML IVPB ONE (16:38)
[2018-06-25] MEDS ORDERED: INSULIN, REG.(HUMAN) 100 U/ML VIAL ONE (16:38)
[2018-06-25] MEDS ORDERED: ACETAMINOPHEN 500 MG TAB PO ONE (17:01)
[2018-06-25 17:17] VITALS: BP 118/63; TEMP 98.3; O2SAT 97
== END 2018-06-25 17:17 | disposition short-term general hospital (02) ==
LOC: ER 10:58
DX: E11.10 Type 2 diabetes mellitus with ketoacidosis without coma (principal); E11.43 Type 2 diabetes mellitus with diabetic autonomic (poly)neuropathy; K31.84 Gastroparesis; J45.909 Unspecified asthma, uncomplicated; K21.9 Gastro-esophageal reflux disease without esophagitis; F32.9 Major depressive disorder, single episode, unspecified; Z79.4 Long term (current) use of insulin; Z79.899 Other long term (current) drug therapy; Z87.891 Personal history of nicotine dependence; Z91.013 Allergy to seafood
CPT/HCPCS: 36415; 36600; 71046; 74177; 80053; 81001; 82009; 82550; 82553; 82803; 82805; 82948; 83605; 83690; 83880; 84484; 85025; 85379; J2405; J3480; J7030; J7799

== ENCOUNTER → 2018-07-09 | Outpatient (CLI) | payer MEDICARE, MEDICAID ==
--- NOTE | 2018-07-10 09:08 | MRI ---
MRI right knee without contrast INDICATION: Knee pain meniscal tear TECHNIQUE: Noncontrast MR imaging right knee standard protocol FINDINGS: Cruciate ligaments are intact. Cystic change indicating intraosseous ganglion/reactive cyst posterior midline tibial plateau near the root attachment posterior horn medial meniscus. Extensor tendons are intact. No focal meniscal defect. Mild lateral patellar tracking. Fairly diffuse up to grade 4 chondrosis lateral patellar facet. Focal region of subchondral cystic change related to grade 4 chondrosis in the lateral patella axial series 301 image 29. Similar grade 4 chondral fissuring with subchondral irregularity/cystic change medial talar facet axial series 301 image 25. TT TG distance measures 18 mm. There is a prominent osteophyte posterior medial tibial plateau. There is a scar medial to the patellar tendon suggesting previous arthroscopy. Multifocal mild chondrosis in the tibiofemoral compartments. Collateral ligaments are intact. There is also cystic change in the posterior medial tibial plateau which appears degenerative subchondral. 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
== END ==
LOC: MRI 13:00
PROVIDERS: ATTEND Orthopaedic Surgery
DX: S83.206D Unspecified tear of unspecified meniscus, current injury, right knee, subsequent encounter (principal); M17.11 Unilateral primary osteoarthritis, right knee

== ENCOUNTER 2018-07-10 21:20 | Emergency (ER) | payer MEDICARE, MEDICAID ==
[2018-07-10] MEDS ORDERED: MORPHINE SULFATE INJ 10 MG/ML VIAL IM ONE (21:47)
[2018-07-10] MEDS ORDERED: ONDANSETRON ODT 8 MG TAB SL ONE (21:49)
[2018-07-10] MEDS ORDERED: ALUM & MAG HYDROX-SIMETHICONE 30 ML, LIDOCAINE VISCOUS 2% 15 ML PO ONE ×2 (21:49)
[2018-07-10] MEDS ORDERED: ALUM & MAG HYDROX-SIMETHICONE 30 ML UD ONE (21:53)
[2018-07-10] MEDS ORDERED: LIDOCAINE HCL 2% (MOUTH-THROAT) 15 ML UD ONE (21:53)
[2018-07-10] MEDS ORDERED: SODIUM CHLORIDE 0.9% 1000ML 1,000 ML IVS ONE (21:54)
--- NOTE | 2018-07-10 22:21 | RAD ---
EXAM DESCRIPTION: Abdomen Series CLINICAL HISTORY: 42 years, Female, severe abd pain COMPARISON: CT abdomen and pelvis with contrast June 25, 2018 TECHNIQUE: Acute abdominal series FINDINGS: The lungs are clear without focal consolidation or pleural effusion. The heart is normal in size. The mediastinal contours are normal. The bowel gas pattern is normal. There is no evidence of free air. There is a moderate amount of formed stool diffusely throughout colon. There are no abnormal masses or calcifications. Clips are present from prior cholecystectomy. Limited evaluation of the liver, spleen, and kidneys demonstrate no gross abnormalities. The osseous structures are age appropriate. IMPRESSION: 1. No acute cardiopulmonary disease. 2. No acute intraabdominal process. Electronically signed by: Maxx Rios MD 07/10/2018 10:20 PM [facility] Workstation: [employer]
[2018-07-10] MEDS ORDERED: MORPHINE SULFATE INJ 10 MG/ML VIAL IV ONE (22:37)
[2018-07-10] MEDS ORDERED: PROCHLORPERAZINE INJ 10 MG/2 ML VIAL IV ONE (22:50)
[2018-07-10] MEDS ORDERED: INSULIN, REG.(HUMAN) 100 U/ML VIAL IV ONE (23:07)
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
[2018-07-11 00:44] VITALS: BP 98/54; TEMP 97.2; O2SAT 96
== END 2018-07-11 00:43 | disposition home or self-care (01) ==
LOC: ER 21:20
DX: R10.13 Epigastric pain (principal); G89.29 Other chronic pain; E10.65 Type 1 diabetes mellitus with hyperglycemia; R19.7 Diarrhea, unspecified; K21.9 Gastro-esophageal reflux disease without esophagitis; J45.909 Unspecified asthma, uncomplicated; F32.9 Major depressive disorder, single episode, unspecified; Z91.013 Allergy to seafood; Z79.4 Long term (current) use of insulin; Z79.899 Other long term (current) drug therapy; Z90.49 Acquired absence of other specified parts of digestive tract
CPT/HCPCS: 36415; 74019; 80053; 81001; 82150; 83605; 83690; 85025; J0780; J2270; J7030

== ENCOUNTER 2018-07-15 18:46 | Emergency (ER) | payer MEDICARE, MEDICAID | END 2018-07-15 19:30 | disposition home or self-care (01) | LOC: ER 18:46 | DX: J02.9 Acute pharyngitis, unspecified (principal); Z53.21 Procedure and treatment not carried out due to patient leaving prior to being seen by health care provider ==

== ENCOUNTER 2018-07-16 12:45 | Inpatient (IN) | payer MEDICARE, MEDICAID ==
[2018-07-16] MEDS ORDERED: KETOROLAC TROMETHAMINE INJ 30 MG/ML VIAL IV ONE (13:09)
[2018-07-16] MEDS ORDERED: SODIUM CHLORIDE 0.9% 1000ML 1,000 ML IVS ONE ×2 (13:09→14:02)
[2018-07-16] MEDS ORDERED: HYOSCYAMINE SULFATE 0.5 MG/ML VIAL IV ONE (13:09)
[2018-07-16] MEDS ORDERED: ONDANSETRON INJ 4 MG/2 ML VIAL IV ONE (13:09)
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
--- NOTE | 2018-07-16 13:43 | RAD ---
EXAM DESCRIPTION: Chest,1 View CLINICAL HISTORY: 42 years Female, sob COMPARISON: Previous study June 25, 2018 TECHNIQUE: AP portable chest. FINDINGS: Heart size is normal with normal pulmonary vascularity. No consolidating infiltrate. No pulmonary mass or worrisome nodule. No pneumothorax or pleural effusion. Bones are unremarkable. IMPRESSION: No acute process is identified in the chest. Electronically signed by: Tera Luis MD 07/16/2018 1:41 PM [facility]
[2018-07-16] MEDS ORDERED: INSULIN, REG.(HUMAN) 100 U/ML VIAL SUBCU ONE (14:02)
[2018-07-16] MEDS ORDERED: METOCLOPRAMIDE HCL INJ 10 MG/2 ML VIAL IV ONE (14:14)
[2018-07-16] MEDS ORDERED: fentaNYL CITRATE INJ 50 MCG/ML AMP IV ONE (14:14)
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
[2018-07-16] MEDS ORDERED: SODIUM CHLORIDE 0.9% 1000ML 1,000 ML IVS PRN (16:13)
[2018-07-16] MEDS ORDERED: HYDROcodone 5MG/APAP 325MG 1 EA TAB PO PRN (16:13)
[2018-07-16] MEDS ORDERED: PROMETHAZINE HCL INJ 25 MG/ML VIAL ONE ×2 (16:33→20:56)
[2018-07-16] MEDS ORDERED: MORPHINE SULFATE INJ 10 MG/ML VIAL ONE (16:34)
[2018-07-16] MEDS ORDERED: SODIUM CHLORIDE 0.9% 50ML 50 ML ONE ×2 (16:34→20:56)
[2018-07-16] MEDS: IV SET AND CAP CHANGE INJ INJ SCH (16:35)
[2018-07-16] MEDS: PROMETHAZINE HCL INJ 25 MG in SODIUM CHLORIDE 0.9% 50ML 50 ML IVPB PRN ×2 (16:57→21:37)
[2018-07-16] MEDS: MORPHINE SULFATE INJ 10 MG/ML VIAL IV PRN ×2 (16:58→20:49)
[2018-07-16] MEDS ORDERED: GLUCAGON INJ 1 MG VIAL SUBCU PRN (17:38)
[2018-07-16] MEDS ORDERED: DEXTROSE 50% 25 GM/50 ML SYG IV PRN (17:38)
[2018-07-16] MEDS ORDERED: KCL 20 MEQ/NS 1,000 ML IVS PRN (17:44)
[2018-07-16] MEDS ORDERED: INSULIN,ISOP(HUMAN(NPH) 100 UNITS/ML PEN SUBCU ONE (18:26)
[2018-07-16] MEDS: INSULIN LISPRO 100 UNITS/ML PEN SUBCU SCH (18:28)
[2018-07-16] MEDS ORDERED: tiZANidine 4 MG TAB ONE (20:25)
[2018-07-16] MEDS ORDERED: diazePAM 5 MG TAB ONE (20:26)
[2018-07-16] MEDS ORDERED: ZOLPIDEM TARTRATE 10 MG TAB ONE (20:27)
[2018-07-16] MEDS: ZOLPIDEM TARTRATE 5 MG TAB PO SCH (20:42)
[2018-07-16] MEDS: NON-FORMULARY MEDICATION 1 EA MIS (Diazepam [Valium] 10 MG) PO SCH (20:43)
[2018-07-16] MEDS: TIZANIDINE HCL PO SCH (20:44)
[2018-07-16] MEDS: PREGABALIN 100 MG CAP PO SCH (20:44)
[2018-07-16] MEDS ORDERED: KCL 20 MEQ/NS 1,000 ML IVS ONE (21:00)
[2018-07-16] MEDS ORDERED: KCL 20MEQ/0.45% NS 1,000 ML IVS PRN (22:40)
[2018-07-16] MEDS ORDERED: KCL 20MEQ/0.45% NS 1,000 ML IVS ONE (22:44)
[2018-07-16] MEDS ORDERED: KCL 20MEQ/D5 1/2NS 1,000 ML IVS PRN (23:08)
[2018-07-16] MEDS ORDERED: INSULIN DETEMIR 100 UNITS/ML PEN SUBCU ONE ×2 (23:08→23:14)
[2018-07-16] MEDS ORDERED: KCL 20MEQ/D5 1/2NS 1,000 ML IVS ONE (23:09)
[2018-07-16] MEDS: KCL 20MEQ/D5 1/2NS 1,000 ML IVS PRN (23:11)
[2018-07-17] MEDS: MORPHINE SULFATE INJ 10 MG/ML VIAL IV PRN ×5 (01:00→15:09)
[2018-07-17] MEDS: INSULIN LISPRO 100 UNITS/ML PEN SUBCU SCH ×4 (01:02→18:31)
[2018-07-17] MEDS ORDERED: PROMETHAZINE HCL INJ 25 MG/ML VIAL ONE ×3 (05:50→20:14)
[2018-07-17] MEDS ORDERED: SODIUM CHLORIDE 0.9% 50ML 50 ML ONE ×3 (05:50→20:14)
[2018-07-17] MEDS: PROMETHAZINE HCL INJ 25 MG in SODIUM CHLORIDE 0.9% 50ML 50 ML IVPB PRN ×3 (05:56→20:23)
[2018-07-17] MEDS: KCL 20MEQ/D5 1/2NS 1,000 ML IVS PRN ×4 (06:05→22:31)
[2018-07-17] MEDS ORDERED: ENOXAPARIN SODIUM 40 MG/0.4 ML SYG SUBCU SCH (09:00)
[2018-07-17] MEDS ORDERED: INSULIN DETEMIR 100 UNITS/ML PEN SUBCU SCH (09:00)
[2018-07-17] MEDS: PREGABALIN 100 MG CAP PO SCH ×2 (09:18→20:40)
[2018-07-17] MEDS: diazePAM 5 MG TAB PO SCH ×3 (09:19→20:40)
[2018-07-17] MEDS ORDERED: MAGNESIUM SULFATE PREMIX 2GM 2 GM in PREMIX BAG 1 BAG IVPB ONE (09:19)
[2018-07-17] MEDS: SERTRALINE HCL 50 MG TAB PO SCH (09:19)
[2018-07-17] MEDS: tiZANidine 4 MG TAB PO SCH ×3 (09:38→20:40)
[2018-07-17] MEDS ORDERED: MAGNESIUM SULFATE PREMIX 2GM 50 ML IVPB ONE (09:40)
[2018-07-17] MEDS: INSULIN DETEMIR 100 UNITS/ML PEN SUBCU SCH (09:42)
[2018-07-17] MEDS: LURASIDONE HCL 80 MG PO SCH (09:44)
[2018-07-17] MEDS ORDERED: METOCLOPRAMIDE HCL INJ 10 MG/2 ML VIAL IV SCH (10:30)
[2018-07-17] MEDS ORDERED: AZITHROMYCIN IV 500 MG in SODIUM CHLORIDE 0.9% 250ML 250 ML IVPB ONE (10:56)
[2018-07-17] MEDS: NON-FORMULARY MEDICATION 1 EA MIS (Diazepam [Valium] 10 MG) PO SCH (11:21)
[2018-07-17] MEDS ORDERED: PANTOPRAZOLE INJECTION 80 MG in SODIUM CHLORIDE 0.9% 100ML 80 ML IVPB ONE (11:22)
[2018-07-17] MEDS: TIZANIDINE HCL PO SCH (11:22)
[2018-07-17] MEDS ORDERED: SODIUM CHLORIDE 0.9% 250ML 250 ML ONE (11:26)
[2018-07-17] MEDS ORDERED: SODIUM CHL 0.9% 50ML MIN-BAG+ 50 ML IVPB ONE (11:26)
[2018-07-17] MEDS ORDERED: cefTRIAXone SODIUM 1 GM VIAL ONE (11:27)
[2018-07-17] MEDS ORDERED: AZITHROMYCIN IV 500 MG VIAL IVPB ONE (11:27)
[2018-07-17] MEDS: METOCLOPRAMIDE HCL INJ 10 MG/2 ML VIAL IV SCH ×3 (12:01→20:40)
[2018-07-17] MEDS: cefTRIAXone SODIUM 1 GM in SODIUM CHL 0.9% 50ML MIN-BAG+ 50 ML IVPB SCH (12:01)
[2018-07-17] MEDS ORDERED: PANTOPRAZOLE SODIUM IV 40 MG VIAL ONE ×2 (12:42→20:06)
[2018-07-17] MEDS ORDERED: SODIUM CHLORIDE 0.9% 100ML 100 ML IVPB ONE (12:42)
[2018-07-17] MEDS: SUCRALFATE 1 GM TAB PO SCH ×3 (12:46→20:41)
[2018-07-17] MEDS: HYDROcodone/IBUPROFEN 7.5/200 1 EA TAB PO SCH ×2 (12:47→17:50)
[2018-07-17] MEDS: ONDANSETRON INJ 4 MG/2 ML VIAL IV PRN (15:20)
--- NOTE | 2018-07-17 15:48 | US ---
EXAM DESCRIPTION: Liver: ULTRASOUND. CLINICAL HISTORY: Hx Fatty Liver now w/RUQ pain elevated AST, ALT. Previous cholecystectomy. COMPARISON: CT scan abdomen and pelvis 06/25/2018. TECHNIQUE: Transabdominal scannin-dimensional and Doppler modes. FINDINGS: Gallbladder: Prior cholecystectomy. No fluid in the gallbladder fossa. Non-tender with transducer pressure. Common bile duct: caliber 2.3 mm within normal limits. Liver: normal echogenicity; contour liver capsule smooth where seen. No fluid around the liver. Intrahepatic biliary ducts normal caliber. Doppler hepatopedal flow portal vein. Normal caliber. Long axis right lobe 18.5 cm. Pancreas: normal size and echogenicity. Duct not seen. Right kidney: long axis measures 9.7 cm. Normal Echogenicity. Normal cortical thickness. No hydronephrosis Abdominal aorta: Normal caliber in the proximal and mid segments. Distal aorta obscured by intestinal gas. IMPRESSION: 1. Minimal hepatomegaly with normal echogenicity. Normal intrahepatic ducts and vascularity. Smooth capsule. No ascites. Prior cholecystectomy. Common bile duct normal caliber. Nontender during scanning. 2. Pancreas and right kidney are unremarkable. Normal caliber of the proximal and mid abdominal aorta and IVC. Electronically signed by: Marlon Proctor MD 07/17/2018 3:47 PM STUDENT LIAISON OFFICER
[2018-07-17] MEDS: ZOLPIDEM TARTRATE 5 MG TAB PO SCH (20:40)
--- NOTE | 2018-07-17 21:07 | PN ---
DATE: 07/17/18 SUPERVISING PHYSICIAN: Freddy Carpenter M.D. SUBJECTIVE: The patient is still having a great deal of nausea and vomiting and requiring fairly aggressive management with Phenergan and morphine. She is noting that her pain is more so in the right upper quadrant and I discussed getting an ultrasound of her liver today. She has been on clear liquids and tolerating fairly well. I did start her back on Levemir. She had a mild hypoglycemic event which corrected easily with fluids. She is on IV solution of D5. She has not had any chest pains. She has remained afebrile but continues with requiring a great deal of pain medicine. OBJECTIVE: VITAL SIGNS: Temperature 97.9, pulse 75, blood pressure 104/71, respirations 17, satting 99% on room air. I's and O's show a positive balance of 1505 with 1951 in, 450 out. She has had 2 bowel movements since she has been in the hospital. Weight is actually up to 66.1 kg compared to admission of 64.1 kg. GENERAL: Shwetha was resting good. She does not appear to be in any distress. She is alert. CHEST: Lung sounds were clear, just slightly diminished towards the bases. HEART: Regular rate and rhythm. ABDOMEN: Flat, soft with diffuse tenderness to palpation. Positive bowel sounds. EXTREMITIES: Without any clubbing, cyanosis or edema. NEUROLOGIC: She is alert and oriented times three. LABORATORY: CBC shows white count 5,300, hemoglobin 11.1, hematocrit 34.3 which is increased since admission, actually showing her to be anemic with microcytic hypochromic presentation. Platelet count 162,000. Differential does show to be without a left shift. Chemistries show blood sugars anywhere from 40 to 162. Liver functions today are showing continued elevation of ALT. AST is normalized at 28, ALT is 243 and alkaline phosphatase is elevated at 167. Serology: Group A rapid Strep was negative. Chemistries shows normal electrolytes with potassium 3.6, sodium 138, carbon dioxide continues to show low with anion gap of 9.6, BUN 7, creatinine was less than 0.04 with blood sugar this morning at 89, calcium 8.2, lipase 23. Hepatitis B panel is pending. MICROBIOLOGY: Group A Strep culture is pending. RADIOLOGY: Liver ultrasound this morning to further assist with right upper quadrant pain per radiology interpretation showed hepatomegaly with normal echogenicity with normal intrahepatic ducts and vascularity. Smooth capsule. No ascites. Prior cholecystectomy. Common bile duct normal caliber. Non- tender during ultrasound scanning. Pancreas and right kidney are unremarkable. Normal caliber of proximal and mid abdominal aorta and IVC. ASSESSMENT: 1. Metabolic acidosis due to poorly controlled diabetes, resolved with treatment and fluids. 2. Chronic gastroparesis with exacerbation due to poorly controlled diabetes. 3. Persistent nausea, vomiting and associated dehydration due to #1 and #2 showing slow response to treatment. 4. History of chronic pain management with the patient having a recent history of having held her medications due to nausea and vomiting possibly relating to some mild opioid withdrawal symptoms. 5. Electrolyte imbalance to include hyponatremia showing to be improving with fluids. 6. Lower abdominal pain with the patient having a history of chronic pain and recent Botox procedure with hepatomegaly and mild splenomegaly as noted on CT scans. No other significant findings with hepatitis panel pending with elevated liver function test. 7. Elevated liver function tests, uncertain etiology, some disc dehydration and stress related to acute exacerbation of her persistent nausea and vomiting We will continue to monitor and relate results of hepatitis B panel. 8. Chronic back pain. 9. Chronic tobacco abuse. Continue to encourage to stop smoking and discuss thoughts of possible rehab program to get off chronic medications. 10. Chronic obstructive pulmonary disease now with some exacerbation noted with some reported shortness of breath, wheezing and upper respiratory symptoms started on parenteral antibiotics. 11. Acute pharyngitis likely viral with Strep screen showing to be negative with antibiotics initiated due to the patient's multiple co-morbidities and overall health. PLAN: We will continue with current plan of today and the patient does meet criteria for inpatient admission. She is still showing to be a little dry so will continue with IV fluids at 250 and then will closely monitor blood sugars. Blood sugars have been controlled well with Levemir 35 units and with D5, but she is not eating at this point. I have encourage a clear liquid diet and to advance as tolerated. We discussed pain management regimen while she is in the hospital and given that she has had some increase in liver functions, will try Vicoprofen every 6 hours and alternate if needed with morphine. Again, we need to try to talk to her about inpatient rehab program at [place] if possible when she is discharged. Once she is able to advance her diet and take adequate oral intake and her medications, hopefully be able to discharge by Saturday. Until then will continue with current treatment plan and continue to monitor as needed. #[id number] [facility]
[2018-07-17] MEDS ORDERED: INSULIN DETEMIR 100 UNITS/ML PEN SUBCU ONE (23:08)
[2018-07-18] MEDS: HYDROcodone/IBUPROFEN 7.5/200 1 EA TAB PO SCH ×6 (00:03→22:40)
[2018-07-18] MEDS: KCL 20MEQ/D5 1/2NS 1,000 ML IVS PRN ×2 (02:15→06:16)
[2018-07-18] MEDS: MORPHINE SULFATE INJ 10 MG/ML VIAL IV PRN ×3 (02:15→20:29)
[2018-07-18] MEDS: ONDANSETRON INJ 4 MG/2 ML VIAL IV PRN ×2 (02:15→16:02)
[2018-07-18] MEDS ORDERED: PROMETHAZINE HCL INJ 25 MG/ML VIAL ONE ×3 (05:34→20:53)
[2018-07-18] MEDS ORDERED: SODIUM CHLORIDE 0.9% 50ML 50 ML ONE ×3 (05:34→20:53)
[2018-07-18] MEDS: PROMETHAZINE HCL INJ 25 MG in SODIUM CHLORIDE 0.9% 50ML 50 ML IVPB PRN ×2 (05:36→21:20)
[2018-07-18] MEDS: SUCRALFATE 1 GM TAB PO SCH ×4 (06:14→21:15)
[2018-07-18] MEDS: METOCLOPRAMIDE HCL INJ 10 MG/2 ML VIAL IV SCH ×4 (06:14→21:15)
[2018-07-18] MEDS: PANTOPRAZOLE SODIUM IV 40 MG VIAL IV SCH (06:17)
[2018-07-18] MEDS ORDERED: SODIUM CHL 0.9% 50ML MIN-BAG+ 50 ML IVPB ONE (08:32)
[2018-07-18] MEDS ORDERED: cefTRIAXone SODIUM 1 GM VIAL ONE (08:33)
[2018-07-18] MEDS: INSULIN DETEMIR 100 UNITS/ML PEN SUBCU SCH (10:57)
[2018-07-18] MEDS: ENOXAPARIN SODIUM 30 MG/0.3 ML SYG SUBCU SCH (10:59)
[2018-07-18] MEDS: LURASIDONE HCL 80 MG PO SCH (10:59)
[2018-07-18] MEDS: PREGABALIN 100 MG CAP PO SCH ×2 (10:59→21:15)
[2018-07-18] MEDS: diazePAM 5 MG TAB PO SCH ×3 (11:00→21:15)
[2018-07-18] MEDS: SERTRALINE HCL 50 MG TAB PO SCH (11:00)
[2018-07-18] MEDS: tiZANidine 4 MG TAB PO SCH ×3 (11:00→21:15)
[2018-07-18] MEDS: cefTRIAXone SODIUM 1 GM in SODIUM CHL 0.9% 50ML MIN-BAG+ 50 ML IVPB SCH (11:07)
--- NOTE | 2018-07-18 13:33 | PN ---
SUPERVISING PHYSICIAN: Hua Carpenter MD DATE: 07/18/18 SUBJECTIVE: The patient is lying in bed. She continues complaints of her stomach hurting, but says she has not had nausea or diarrhea in the last 24 hours. She tolerated a small amount of clear liquid breakfast without any problems. She asked about her liver ultrasound and I gave her an update on that report. We also discussed rehab for her narcotic addiction. I also recommended that she talk to her pain medication doctor about changing from [place] to vicoprofen. She said she was going to a procedure on her back and going to try to wean of narcotics. Otherwise, she has no complaints of chest pain or shortness of breath. She does continue to cough quite frequently. OBJECTIVE: VITAL SIGNS: Afebrile. Heart rate 68. Blood pressure 120/81. Respiratory rate 18. O2 saturation 98% on room air. RESPIRATORY: A few scattered rhonchi throughout her lung field, but otherwise, no wheezes or crackles. CARDIAC: Regular rate and rhythm. GASTROINTESTINAL: Abdomen is soft, nondistended. It is diffusely tender, especially in the epigastric area, but there is no rebound tenderness or guarding. Bowel sounds are positive. EXTREMITIES: No cyanosis, clubbing or edema. NEUROLOGIC: Awake, alert and oriented times three. LABORATORY: Her sodium is 140, potassium 4.2, chloride 112, carbon dioxide 23, BUN less than 5, creatinine less than 0.4. Calcium 8.2, AST 26, ALT 181, alkaline phosphatase 140, serum total protein 5.5, albumin 3. Blood sugars have run between 93 and 116. Throat culture is pending. All other labs and films have been reviewed via the EMR. ASSESSMENT: 1. Metabolic acidosis due to poorly controlled diabetes, resolved with treatment and fluids. 2. Chronic gastroparesis with exacerbation due to poorly controlled diabetes. 3. Persistent nausea, vomiting and associated dehydration due to #1 and #2 showing slow response to treatment. 4. History of chronic pain management with the patient having a recent history of having held her medications due to nausea and vomiting possibly relating to some mild opioid withdrawal symptoms. 5. Electrolyte imbalance to include hyponatremia showing to be improving with fluids. 6. Lower abdominal pain with the patient having a history of chronic pain and recent Botox procedure with hepatomegaly and mild splenomegaly as noted on CT scans. No other significant findings with hepatitis panel pending with elevated liver function test. 7. Elevated liver function tests, uncertain etiology, some disc dehydration and stress related to acute exacerbation of her persistent nausea and vomiting We will continue to monitor and relate results of hepatitis B panel. 8. Chronic back pain. 9. Chronic tobacco abuse. Continue to encourage to stop smoking and discuss thoughts of possible rehab program to get off chronic medications. 10. Chronic obstructive pulmonary disease now with some exacerbation noted with some reported shortness of breath, wheezing and upper respiratory symptoms started on parenteral antibiotics. 11. Acute pharyngitis likely viral with Strep screen showing to be negative with antibiotics initiated due to the patient's multiple co-morbidities and overall health. PLAN: We will continue present supportive care. Recommend she follow up with her PCP about her elevated liver enzymes and follow up with her pain management doctor about switching from [place] to Vicoprofen. She will get clear liquids for lunch and then I will advance her diet to a full liquid if she tolerates that. I have decreased her morphine to 2 mg every 4 hours and I have increased her Vicoprofen to scheduled doses 7.5 every 4 hours. She will get approximately the same amount of hydrocodone as she does in her normal dosing. I have also started some p.o. Haldol for her gastroparesis. We will continue to monitor the patient closely and follow as needed. Dr. Carpenter is the collaborating physician and available for consultation. #[id number] [facility]
[2018-07-18] MEDS: HALOPERIDOL TAB 1 MG TAB PO SCH ×3 (14:29→21:15)
[2018-07-18] MEDS: SODIUM CHLORIDE 0.9% (FLUSH) 10 ML SYG IV PRN ×2 (20:27→21:20)
[2018-07-18] MEDS: ZOLPIDEM TARTRATE 5 MG TAB PO SCH (21:15)
[2018-07-18] MEDS: LOPERAMIDE CAP 2 MG CAP PO PRN (22:40)
[2018-07-19] MEDS: ONDANSETRON INJ 4 MG/2 ML VIAL IV PRN (00:56)
[2018-07-19] MEDS: MORPHINE SULFATE INJ 10 MG/ML VIAL IV PRN ×2 (00:56→04:58)
[2018-07-19] MEDS ORDERED: DEXTROSE 50% 25 GM/50 ML SYG IV PRN (02:09)
[2018-07-19] MEDS ORDERED: GLUCAGON INJ 1 MG VIAL SUBCU PRN (02:09)
[2018-07-19] MEDS: INSULIN LISPRO 100 UNITS/ML PEN SUBCU SCH ×5 (02:26→21:47)
[2018-07-19] MEDS: HYDROcodone/IBUPROFEN 7.5/200 1 EA TAB PO SCH ×6 (02:31→22:49)
[2018-07-19] MEDS: SODIUM CHLORIDE 0.9% (FLUSH) 10 ML SYG IV PRN ×3 (04:57→06:37)
[2018-07-19] MEDS: LOPERAMIDE CAP 2 MG CAP PO PRN (04:58)
[2018-07-19] MEDS ORDERED: PROMETHAZINE HCL INJ 25 MG/ML VIAL ONE (05:05)
[2018-07-19] MEDS ORDERED: SODIUM CHLORIDE 0.9% 50ML 50 ML ONE (05:06)
[2018-07-19] MEDS: PROMETHAZINE HCL INJ 25 MG in SODIUM CHLORIDE 0.9% 50ML 50 ML IVPB PRN (05:50)
[2018-07-19] MEDS: SUCRALFATE 1 GM TAB PO SCH ×4 (06:29→20:08)
[2018-07-19] MEDS: PANTOPRAZOLE SODIUM IV 40 MG VIAL IV SCH (06:31)
[2018-07-19] MEDS: METOCLOPRAMIDE HCL INJ 10 MG/2 ML VIAL IV SCH ×2 (06:37→12:15)
[2018-07-19] MEDS: ENOXAPARIN SODIUM 30 MG/0.3 ML SYG SUBCU SCH (08:54)
[2018-07-19] MEDS: HALOPERIDOL TAB 1 MG TAB PO SCH ×4 (08:54→20:07)
[2018-07-19] MEDS: tiZANidine 4 MG TAB PO SCH ×3 (08:54→20:12)
[2018-07-19] MEDS: SERTRALINE HCL 50 MG TAB PO SCH (08:55)
[2018-07-19] MEDS: PREGABALIN 100 MG CAP PO SCH ×2 (08:55→20:08)
[2018-07-19] MEDS: diazePAM 5 MG TAB PO SCH ×3 (08:55→20:08)
[2018-07-19] MEDS: SODIUM CHLORIDE 0.9% (FLUSH) 10 ML SYG IV SCH ×2 (08:56→20:12)
[2018-07-19] MEDS ORDERED: DIPHENOXYLATE HCL/ATROPINE 2.5 MG TAB PO ONE (09:38)
[2018-07-19] MEDS: INSULIN DETEMIR 100 UNITS/ML PEN SUBCU SCH (10:28)
[2018-07-19] MEDS ORDERED: DIPHENOXYLATE HCL/ATROPINE 2.5 MG TAB ONE (10:42)
[2018-07-19] MEDS ORDERED: BIFIDOBACTERIUM INFANTIS 4 MG CAP ONE (10:43)
[2018-07-19] MEDS ORDERED: cefTRIAXone SODIUM 1 GM VIAL ONE (10:43)
[2018-07-19] MEDS ORDERED: SODIUM CHL 0.9% 50ML MIN-BAG+ 50 ML IVPB ONE (10:43)
[2018-07-19] MEDS: cefTRIAXone SODIUM 1 GM in SODIUM CHL 0.9% 50ML MIN-BAG+ 50 ML IVPB SCH (10:47)
[2018-07-19] MEDS: BIFIDOBACTERIUM INFANTIS 4 MG CAP PO SCH ×2 (10:48→20:06)
[2018-07-19] MEDS ORDERED: DOXYCYCLINE HYCLATE CAP 100 MG CAP ONE (12:08)
[2018-07-19] MEDS: DOXYCYCLINE HYCLATE CAP 100 MG CAP PO SCH ×2 (12:43→20:08)
[2018-07-19] MEDS ORDERED: PROMETHAZINE HCL 25 MG TAB PO PRN (13:18)
[2018-07-19] MEDS: LURASIDONE HCL 80 MG PO SCH (13:25)
[2018-07-19] MEDS: IV SET AND CAP CHANGE INJ INJ SCH (16:53)
[2018-07-19] MEDS ORDERED: METOCLOPRAMIDE HCL 5 MG TAB ONE (17:32)
[2018-07-19] MEDS: METOCLOPRAMIDE HCL 5 MG TAB PO SCH ×2 (17:41→20:07)
[2018-07-19] MEDS ORDERED: INSULIN LISPRO 100 UNITS/ML PEN SUBCU ONE (17:56)
[2018-07-19] MEDS ORDERED: INSULIN DETEMIR 100 UNITS/ML PEN SUBCU ONE (19:30)
[2018-07-19] MEDS: ZOLPIDEM TARTRATE 5 MG TAB PO SCH (20:05)
[2018-07-20] MEDS: HYDROcodone/IBUPROFEN 7.5/200 1 EA TAB PO SCH ×3 (02:33→10:59)
[2018-07-20] MEDS: PANTOPRAZOLE SODIUM IV 40 MG VIAL IV SCH (06:35)
[2018-07-20] MEDS: INSULIN LISPRO 100 UNITS/ML PEN SUBCU SCH (07:17)
[2018-07-20] MEDS: METOCLOPRAMIDE HCL 5 MG TAB PO SCH (07:21)
[2018-07-20] MEDS: SUCRALFATE 1 GM TAB PO SCH (07:22)
[2018-07-20] MEDS: BIFIDOBACTERIUM INFANTIS 4 MG CAP PO SCH (08:43)
[2018-07-20] MEDS: diazePAM 5 MG TAB PO SCH (08:44)
[2018-07-20] MEDS: DOXYCYCLINE HYCLATE CAP 100 MG CAP PO SCH (08:45)
[2018-07-20] MEDS: HALOPERIDOL TAB 1 MG TAB PO SCH (08:45)
[2018-07-20] MEDS: SERTRALINE HCL 50 MG TAB PO SCH (08:45)
[2018-07-20] MEDS: PREGABALIN 100 MG CAP PO SCH (08:45)
[2018-07-20] MEDS: tiZANidine 4 MG TAB PO SCH (08:45)
[2018-07-20] MEDS: INSULIN DETEMIR 100 UNITS/ML PEN SUBCU SCH (08:46)
[2018-07-20] MEDS: LURASIDONE HCL 80 MG PO SCH (08:46)
[2018-07-20] MEDS: ENOXAPARIN SODIUM 30 MG/0.3 ML SYG SUBCU SCH (08:46)
[2018-07-20 11:23] VITALS: BP 111/76; TEMP 97.5; O2SAT 99
[2018-07-20] MEDS: SODIUM CHLORIDE 0.9% (FLUSH) 10 ML SYG IV SCH (12:01)
--- NOTE | 2018-07-20 14:20 | PN ---
DATE: 07/19/18 SUPERVISING PHYSICIAN: Freddy Carpenter M.D. SUBJECTIVE: The patient had no complaints of nausea or vomiting. She was taking her meals without any problem. Her blood sugars have been running between 76 and 266 during the day. Just prior to her discharge her blood sugar was running over 400 per glucometer. Checking on the serum it was 598. She was given 15 units of insulin. It was checked again and it was greater than 400. She was given another 15 units and due to her elevated blood sugars I was unable to discharge her. It is to be noted that during the night the nurse caught her gorging on food from an outside source. She expressed multiple times that she did not want to be discharged home because she was having trouble with her boyfriend. We will keep the patient overnight and monitor her blood sugars closely. OBJECTIVE: VITAL SIGNS: She is afebrile, heart rate 63, blood pressure 115/71, respiratory rate 20, O2 sat 98%. RESPIRATORY: Essentially clear to auscultation bilaterally. CARDIAC: Regular rate and rhythm. GASTROINTESTINAL: Abdomen is soft, nondistended, non-tender. Bowel sounds are positive. She does have a quarter sized hard nodule on her right side of her labia majora. There is no drainage. It is warm to touch. I do not see any drainage or fluctuance. NEUROLOGIC: She is awake, alert and oriented times three. LABORATORY: Electrolytes are basically within normal limits. ALT is slightly high at 192, alkaline phosphatase 197, AST 59. Hepatitis panel is nonreactive or negative. Clostridium Difficile is negative for antigen and toxin. Stool culture is still pending. All other labs and films have been reviewed via the EMR. ASSESSMENT: 1. Metabolic acidosis due to poorly controlled diabetes, resolved with treatment and fluids. 2. Chronic gastroparesis with exacerbation due to poorly controlled diabetes. 3. Persistent nausea, vomiting and associated dehydration due to #1 and #2 showing slow response to treatment. 4. History of chronic pain management with the patient having a recent history of having held her medications due to nausea and vomiting possibly relating to some mild opioid withdrawal symptoms. 5. Electrolyte imbalance to include hyponatremia showing to be improving with fluids. 6. Cellulitis of the right labia majora started on doxycycline today, has been on Rocephin since admission. 7. Lower abdominal pain with the patient having a history of chronic pain and recent Botox procedure with hepatomegaly and mild splenomegaly as noted on CT scans. No other significant findings with hepatitis panel pending with elevated liver function test. 8. Elevated liver function tests, uncertain etiology, some disc dehydration and stress related to acute exacerbation of her persistent nausea and vomiting We will continue to monitor and relate results of hepatitis B panel. 9. Chronic back pain. 10. Chronic tobacco abuse. Continue to encourage to stop smoking and discuss thoughts of possible rehab program to get off chronic medications. 11. Chronic obstructive pulmonary disease now with some exacerbation noted with some reported shortness of breath, wheezing and upper respiratory symptoms started on parenteral antibiotics. 12. Acute pharyngitis likely viral with Strep screen showing to be negative with antibiotics initiated due to the patient's multiple co-morbidities and overall health. PLAN: We will continue present supportive care. I have given her doxycycline for the cellulitis on her labia. I have instructed her to show it to Dr. Rangel when she has a followup appointment with him next week on the . We will monitor her blood sugars overnight and treat them appropriately. She will be discharged in the morning if her blood sugars are below 300. It is to be noted that we believe that she was trying to elevate her blood sugars to keep from being discharged from the hospital. I have already called her medications in to [facility] and she will be discharged in the morning. She will need to followup with her primary care physician about her elevated liver enzymes and most likely need referral to GI. I am not sure if some of the issues with her liver are due to her taking so much [place]. In the hospital she was switched from [place] to Vicoprofen. Otherwise we will hope for discharge in the morning. Continue to monitor her closely and follows a needed. #[id number] [facility]
--- NOTE | 2018-07-20 16:15 | DS ---
SUPERVISING PHYSICIAN: Freddy Carpenter M.D. DISCHARGE DIAGNOSIS: 1. Metabolic acidosis due to poorly controlled diabetes, resolved with treatment and fluids. 2. Chronic gastroparesis with exacerbation due to poorly controlled diabetes. 3. Persistent nausea, vomiting and associated dehydration due to #1 and #2 showing slow response to treatment. 4. History of chronic pain management with the patient having a recent history of having held her medications due to nausea and vomiting possibly relating to some mild opioid withdrawal symptoms. 5. Electrolyte imbalance to include hyponatremia showing to be improving with fluids. 6. Cellulitis of the right labia majora started on doxycycline today, has been on Rocephin since admission. 7. Lower abdominal pain with the patient having a history of chronic pain and recent Botox procedure with hepatomegaly and mild splenomegaly as noted on CT scans. No other significant findings with hepatitis panel pending with elevated liver function test. 8. Elevated liver function tests, uncertain etiology, some disc dehydration and stress related to acute exacerbation of her persistent nausea and vomiting We will continue to monitor and relate results of hepatitis B panel. 9. Chronic back pain. 10. Chronic tobacco abuse. Continue to encourage to stop smoking and discuss thoughts of possible rehab program to get off chronic medications. 11. Chronic obstructive pulmonary disease now with some exacerbation noted with some reported shortness of breath, wheezing and upper respiratory symptoms started on parenteral antibiotics. 12. Acute pharyngitis likely viral with Strep screen showing to be negative with antibiotics initiated due to the patient's multiple co-morbidities and overall health. HISTORY OF PRESENT ILLNESS: This is a 42-year-old female that presented to the Emergency Department today due to nausea, vomiting and diarrhea. She has an extensive history of recurrent nausea and vomiting along with type 1 diabetes and gastroparesis. She had had a sore throat the previous week treated with amoxicillin. She had not had any significant oral intake and was throwing up over 10 times daily. She had a Botox injection in her stomach for persistent nausea and vomiting by her outdoor adventure leader in [place] on 06/18/18. Since the Botox injection she was unable to eat much and actually lost well over 20 pounds and has had persistent nausea and vomiting. Laboratory studies int [facility]. . showed a normal white count on presentation. Chemistries showed carbon dioxide 16, but anion gap was normal at 17.6, blood sugar 362, and her serum ketones were negative. Her liver enzymes were elevated with ALT of 438, alkaline phosphatase 256 with AST 45. Lipase was normal at 22. Urinalysis showed greater than 160 ketones, 500 glucose, small amount of urine blood, but negative for urine nitrates, small amount of bilirubin. She reported that she had a temperature of 104 the day prior to admission. She was noted to be afebrile in the E. R. with a temperature of 97.9. Heart rate was 130 with blood pressure 111/88, O2 sats were 98% on room air, respirations 20. She has a long history of narcotic usage and has noted that in the last several days, she thinks approximately 4 days, she has not been able to take any of her pain medicines that she normally takes and has had intermittent abdominal pain. Due the patient being unable to have any oral intake of any significant amount and noted to be dehydrated with concerns for developing diabetic ketoacidosis, the patient was admitted to the floor and initially placed in observation for more aggressive treatment with fluids to prevent diabetic ketoacidosis and help her through the persistent nausea and vomiting. She was then changed to a full admission due to her multiple issues. HOSPITAL COURSE: She received several liters of fluids and her BMPs were monitored every 4 hours. She was placed on sliding scale insulin every 4 hours with Humalog insulin to cover her elevated blood sugars. She was placed on bowel rest and given antiemetics as well as pain medication. It was recommended that she think about being admitted to a place such as [facility] for narcotic detoxification and to help with her addiction. A liver ultrasound was done and showed minimal hepatomegaly with normal echogenicity, normal intrahepatic ducts and vascularity, smooth capsule. No ascites. She had a prior cholecystectomy and common bile duct normal caliber, non-tender during scanning. Her pancreas and right kidney were unremarkable. Normal caliber of the proximal and mid abdominal aorta and IVC. She continued complaints of nausea and vomiting, although the staff did not witness any emesis. At one point she also complained of 32 bowel movements in one day, but again no staff had seen her have a bowel movement. She did finally call after a loose stool and a stool culture was done as well as a Clostridium Difficile. The Clostridium Difficile was negative for antigen and toxin. Her [place] was changed to Vicoprofen. She was also for breakthrough pain was give morphine. The morphine was titrated off. All of her IV medications were changed to p.o. Stool culture is still pending. She was also started on p.o. Haldol for her gastroparesis. She actually as to be discharged yesterday, but her evening blood sugars were elevated greater than 400. In fact her serum blood sugar was 598. She was given 15 units of NovoLog insulin. It was repeated and it was greater than 400 so she was kept an additional night. That evening her 9:00 PM blood sugar was 223. She received her regular long-acting insulin. Her night nurse also found her to be eating multiple snacks from the vending machine and checking her own blood sugar in her room. Her blood sugar this morning was 257 followed by her 11:30 blood sugar of 188. She has had no further complaints of nausea or vomiting. Prior to discharge yesterday, she complained of an abscess on her labia. It was examined and found to have an abscess on the right labia majora. There was no fluctuance or drainage. It was warm to touch, erythematous and slightly edematous. She was started on doxycycline. She will be discharged home in stable condition. DISCHARGE PLAN: The patient will be discharged home in stable condition. She is to resume her previous diabetic diet. She is to increase activity as tolerated. The patient will be discharged home with her routine medications plus doxycycline for 10 days, Haldol 2 mg q.i.d., Promethazine tablets and Sucralfate tablets. She has a followup appointment with Dr. Rangel on 07/25/18. It is recommended that she seek assistance with her narcotic addition with an inpatient admission to a facility such as [facility]. She is to continue the doxycycline until she sees Dr. Rangel. She is to return to the E. R. or followup with Dr. Rangel's office for any problems or complications. DISCHARGE MEDICATIONS: 1. Ambien. 2. Zanaflex. 3. NovoLog insulin. 4. Hydrocodone. 5. Elocon. 6. Lyrics. 7. Zofran. 8. Latuda. 9. Diphenhydramine. 10. EpiPen. 11. Zoloft. 12. Valium. 13. Reglan. 14. Lantus insulin. 15. Promethazine. 16. Align. 17. Doxycycline. 18. Haldol. 19. Sucralfate. #[id number] [facility]
== END 2018-07-20 11:45 | disposition home or self-care (01) | DRG 638 ==
LOC: ER 12:45 → INTOOBSV 15:57 → UNDOADMIN 15:57 → MS 15:57 → OBSVTOIN 15:57 → MS 07-17 13:06
PROVIDERS: ADMIT Nurse Practitioner Family; ATTEND Nurse Practitioner Acute Care
DX: E10.69 Type 1 diabetes mellitus with other specified complication (principal); E87.1 Hypo-osmolality and hyponatremia; F11.23 Opioid dependence with withdrawal; J44.1 Chronic obstructive pulmonary disease with (acute) exacerbation; E10.42 Type 1 diabetes mellitus with diabetic polyneuropathy; E86.0 Dehydration; M79.7 Fibromyalgia; G89.29 Other chronic pain; M54.9 Dorsalgia, unspecified; E10.43 Type 1 diabetes mellitus with diabetic autonomic (poly)neuropathy; K31.84 Gastroparesis; F41.9 Anxiety disorder, unspecified; F32.9 Major depressive disorder, single episode, unspecified; F17.210 Nicotine dependence, cigarettes, uncomplicated; E10.649 Type 1 diabetes mellitus with hypoglycemia without coma; J02.8 Acute pharyngitis due to other specified organisms; R16.0 Hepatomegaly, not elsewhere classified; N76.2 Acute vulvitis; Z79.4 Long term (current) use of insulin

== ENCOUNTER 2018-07-27 11:41 | Emergency (ER) | payer MEDICARE, MEDICAID ==
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
[2018-07-27] MEDS ORDERED: PROCHLORPERAZINE INJ 10 MG/2 ML VIAL IV ONE (12:54)
[2018-07-27] MEDS ORDERED: MORPHINE SULFATE INJ 10 MG/ML VIAL IV ONE ×2 (12:54→14:51)
[2018-07-27] MEDS ORDERED: LACTATED RINGERS 1,000 ML IVS ONE (12:54)
[2018-07-27 14:42] VITALS: TEMP 97.5
[2018-07-27] MEDS ORDERED: PROMETHAZINE HCL INJ 25 MG/ML VIAL IM ONE (14:51)
[2018-07-27 15:19] VITALS: BP 109/76; O2SAT 94
== END 2018-07-27 15:20 | disposition home or self-care (01) ==
LOC: ER 11:41
DX: R11.2 Nausea with vomiting, unspecified (principal); R19.7 Diarrhea, unspecified; E10.9 Type 1 diabetes mellitus without complications; F32.9 Major depressive disorder, single episode, unspecified; K21.9 Gastro-esophageal reflux disease without esophagitis; J45.909 Unspecified asthma, uncomplicated; Z87.891 Personal history of nicotine dependence; Z90.49 Acquired absence of other specified parts of digestive tract; Z79.899 Other long term (current) drug therapy; Z79.4 Long term (current) use of insulin; Z91.013 Allergy to seafood
CPT/HCPCS: 36415; 80053; 81001; 83690; 85025; J0780; J2270; J2550; J7120

== ENCOUNTER 2018-09-09 18:58 | Emergency (ER) | payer MEDICARE, MEDICAID ==
[2018-09-09 20:49] VITALS: TEMP 98.5
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
--- NOTE | 2018-09-09 22:06 | RAD ---
EXAM DESCRIPTION: Chest,1 View CLINICAL HISTORY:43 years Female, COUGH Comparison: July 16, 2018 FINDINGS: No focal lung consolidation. No pleural effusion. No pneumothorax. Cardiac and mediastinal silhouette is unremarkable. No acute osseous abnormality. Soft tissues are unremarkable. IMPRESSION: No acute findings. No focal lung consolidation. Electronically signed by: Juan Mendez MD 09/09/2018 10:03 PM IT ACCOUNT MANAGER
--- NOTE | 2018-09-09 22:14 | CT ---
EXAM DESCRIPTION: Abdoment/Pelvis w/o Contrast CLINICAL HISTORY:43 years Female, L FLANK PAIN Comparison: June 25, 2018 TECHNIQUE: Contiguous axial images of the abdomen and pelvis were obtained followed by reconstruction images. This exam was performed according to our departmental dose-optimization program, which includes automated exposure control, adjustment of the mA and/or kV according to patient size and/or use of iterative reconstruction technique. FINDINGS: Lung bases: Minimal right basilar subsegmental atelectasis. No focal consolidation. Heart: Visualized heart is within normal limits in size. Liver:Unremarkable. No focal liver lesion. Gallbladder:Unremarkable. No gallstones. No gallbladder wall thickening or pericholecystic fluid. Spleen:Unremarkable Pancreas: Pancreas is unremarkable. Adrenal glands:Within normal limits. Kidneys/ureters:Within normal limits Bladder:Unremarkable. Pelvic organs: No acute abnormality Vascular structures: Scattered atherosclerotic calcifications Peritoneum: No free fluid. Lymph nodes: No abnormal lymph nodes. Stomach/small bowel/colon: Stomach is unremarkable. Small bowel is unremarkable. Colon is unremarkable. Appendix: No evidence of appendicitis. Bones: No acute osseous abnormality. 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 Soft tissues: Unremarkable.. IMPRESSION: No acute intra-abdominal abnormality. No nephrolithiasis. No hydronephrosis. Electronically signed by: Juan Mendez MD 09/09/2018 10:11 PM REGIONAL TRAINING MANAGER
[2018-09-09] MEDS: diphenhydrAMINE HCL 25 MG CAP PO ONE (22:52)
[2018-09-10] MEDS: INSULIN, REG.(HUMAN) 100 U/ML VIAL SUBCU ONE (00:16)
[2018-09-10] MEDS: SODIUM CHLORIDE 0.9% 1000ML 1,000 ML IVS ONE (00:19)
[2018-09-10] MEDS: MORPHINE SULFATE INJ 10 MG/ML VIAL IV ONE (00:19)
[2018-09-10 01:16] VITALS: BP 119/62; O2SAT 96
== END 2018-09-10 01:10 | disposition home or self-care (01) ==
LOC: ER 18:58
DX: R10.32 Left lower quadrant pain (principal); R11.2 Nausea with vomiting, unspecified; E11.65 Type 2 diabetes mellitus with hyperglycemia; E87.1 Hypo-osmolality and hyponatremia; R82.4 Acetonuria; R81 Glycosuria; J45.909 Unspecified asthma, uncomplicated; K21.9 Gastro-esophageal reflux disease without esophagitis; F32.9 Major depressive disorder, single episode, unspecified; Z91.14 Patient's other noncompliance with medication regimen; Z76.5 Malingerer [conscious simulation]; Z87.891 Personal history of nicotine dependence
CPT/HCPCS: 36415; 36416; 36600; 71045; 74176; 80053; 81001; 82009; 82948; 85025; 87502; Q0163

== ENCOUNTER 2018-10-07 18:17 | Emergency (ER) | payer MEDICARE, MEDICAID ==
[2018-10-07] MEDS ORDERED: SODIUM CHLORIDE 0.9% 1000ML 1,000 ML IVS ONE (18:52)
[2018-10-07] MEDS ORDERED: diphenhydrAMINE HCL 50 MG/ML VIAL IV ONE (18:53)
[2018-10-07] MEDS ORDERED: METOCLOPRAMIDE HCL INJ 10 MG/2 ML VIAL IV ONE (18:54)
[2018-10-07] MEDS ORDERED: IPRATROPIUM/ALBUTEROL 3 ML VIAL NEB ONE (18:55)
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
--- NOTE | 2018-10-07 19:15 | RAD ---
EXAM DESCRIPTION: Chest,1 View CLINICAL HISTORY: cough COMPARISON: September 09, 2018 FINDINGS: Cardiac silhouette is within normal limits. There is no focal parenchymal or pleural disease. There is no acute osseous process visualized. IMPRESSION: No evidence of acute cardiopulmonary disease. Electronically signed by: Varun Hemphill MD 10/07/2018 7:[address] [facility]
[2018-10-07] MEDS ORDERED: INSULIN, REG.(HUMAN) 100 U/ML VIAL SUBCU ONE (20:06)
[2018-10-07] MEDS ORDERED: INSULIN, REG.(HUMAN) 100 U/ML VIAL IV ONE (20:12)
[2018-10-07] MEDS ORDERED: HALOPERIDOL LACTATE INJ 5 MG/ML VIAL IV ONE (20:59)
[2018-10-07] MEDS ORDERED: MORPHINE SULFATE INJ 10 MG/ML VIAL IM ONE (21:45)
[2018-10-07 22:01] VITALS: BP 100/71; TEMP 98.1; O2SAT 99
== END 2018-10-07 22:00 | disposition home or self-care (01) ==
LOC: ER 18:17
DX: E11.43 Type 2 diabetes mellitus with diabetic autonomic (poly)neuropathy (principal); K31.84 Gastroparesis; J45.909 Unspecified asthma, uncomplicated; K21.9 Gastro-esophageal reflux disease without esophagitis; F32.9 Major depressive disorder, single episode, unspecified; R56.9 Unspecified convulsions; Z87.891 Personal history of nicotine dependence; Z79.4 Long term (current) use of insulin; Z79.899 Other long term (current) drug therapy; Z91.013 Allergy to seafood
CPT/HCPCS: 36415; 36416; 71045; 80053; 81001; 82009; 82948; 83690; 85025; 94640; J1200; J1630; J2270; J2765; J7030; J7620

== ENCOUNTER 2018-10-12 22:43 | Emergency (ER) | payer MEDICARE, MEDICAID ==
[2018-10-12 22:57] VITALS: TEMP 97.6
[2018-10-12] MEDS ORDERED: MORPHINE SULFATE INJ 10 MG/ML VIAL IV ONE (23:18)
[2018-10-12] MEDS ORDERED: SODIUM CHLORIDE 0.9% 1000ML 1,000 ML IVS ONE ×2 (23:18→23:19)
[2018-10-12] MEDS ORDERED: ONDANSETRON INJ 4 MG/2 ML VIAL IV ONE (23:19)
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
--- NOTE | 2018-10-12 23:31 | RAD ---
EXAM: Chest,1 View CLINICAL INDICATION: Rule out pneumonia COMPARISON: 10/07/2018 FINDINGS: A single view of the chest was obtained. The heart size is normal. The pulmonary vascularity is unremarkable. The lungs are clear. There is no consolidation, infiltrate, pleural effusion, or pneumothorax. IMPRESSION: No evidence of active pulmonary disease. Electronically signed by: Hakeem Colon MD 10/12/2018 11:28 PM CDT
[2018-10-13] MEDS ORDERED: diazePAM 5 MG TAB PO ONE (00:06)
[2018-10-13 01:03] VITALS: BP 102/75; O2SAT 98
== END 2018-10-13 01:04 | disposition home or self-care (01) ==
LOC: ER 22:43
DX: E86.0 Dehydration (principal); F41.9 Anxiety disorder, unspecified; E11.9 Type 2 diabetes mellitus without complications; R11.2 Nausea with vomiting, unspecified; R05 Cough; F17.200 Nicotine dependence, unspecified, uncomplicated; R56.9 Unspecified convulsions; J45.909 Unspecified asthma, uncomplicated; K21.9 Gastro-esophageal reflux disease without esophagitis; F32.9 Major depressive disorder, single episode, unspecified; Z79.4 Long term (current) use of insulin; Z79.899 Other long term (current) drug therapy; Z91.013 Allergy to seafood
CPT/HCPCS: 36415; 71045; 80053; 81001; 82009; 83690; 85025; J2270; J2405; J7030

== ENCOUNTER → 2018-10-16 | Outpatient (CLI) | payer MEDICARE, MEDICAID ==
--- NOTE | 2018-10-16 15:41 | MRI ---
EXAM DESCRIPTION: Cervical Spine: MRI. CLINICAL HISTORY: 43 years Female CERVICALGIA COMPARISON: MRI scan of the cervical spine without contrast 08/27/2017. TECHNIQUE: Multiplanar, high-field MRI, multiple sequences, non-contrast Cervical spine.. Minimal image degradation due to patient motion. FINDINGS: C2-3: Disc is unremarkable. Canal and neural foramina are patent. Minimal arthrosis in the left facet joint. Right facet joint is negative. C4-C5: Minimal hypertrophic changes in the left facet with arthrosis. Disc and right facet joint unremarkable. Canal and neural foramina are patent. C7-T1: Minimal arthrosis in the left facet. Hypertrophy and minimal neural foraminal narrowing. Right facet joint unremarkable. Disc is negative. Canal and right neuroforamen are patent. Normal signal in the remaining discs with no bulging. Disc spaces preserved. Canal and neural foramina are patent. Facet joints are intact. Spinal alignment anatomic.. No cord compression or cord edema. Atlantoaxial joint negative.. Base of the cerebellar tonsils is just above the foramen magnum. Paravertebral soft tissues showing small bilateral lymph nodes in the carotid space.. Vertebral bodies are not compressed at any level. Normal marrow signal in the remaining vertebral bodies and the posterior elements. IMPRESSION: 1. Minimal arthrosis in some of the facet joints, specifically left C2-C3, left C4-C5, and left C7-T1. Minimal narrowing of the left C7-T1 neural foramen. No neural compromise at any level. 2. Remaining neuroforamina and facet joints are unremarkable. Normal canal with with no significant narrowing. Normal signal in the disc with disc spaces preserved. No cord compression or cord edema. No significant changes since the prior study. Electronically signed by: Marlon Proctor MD 10/16/2018 3:38 PM CDT
== END ==
LOC: MRI 13:00
PROVIDERS: ATTEND Nurse Practitioner Adult Health
DX: M47.892 Other spondylosis, cervical region (principal)

== ENCOUNTER 2018-10-23 23:24 | Inpatient (IN) | payer MEDICARE, MEDICAID ==
[2018-10-23] MEDS ORDERED: diphenhydrAMINE HCL 50 MG/ML VIAL IV ONE (23:50)
[2018-10-23] MEDS ORDERED: SODIUM CHLORIDE 0.9% 1000ML 1,000 ML IVS ONE (23:50)
[2018-10-23] MEDS ORDERED: HYDROmorphone HCL INJ 2 MG/ML VIAL IV ONE (23:52)
[2018-10-24] MEDS ORDERED: INSULIN, REG.(HUMAN) 100 U/ML VIAL ONE (00:17)
[2018-10-24] MEDS ORDERED: SODIUM CHL 0.9% 250ML (AVIVA) 250 ML IVPB ONE (00:30)
[2018-10-24] MEDS ORDERED: HALOPERIDOL LACTATE INJ 5 MG/ML VIAL ONE (01:04)
[2018-10-24] MEDS ORDERED: INSULIN, REG.(HUMAN) 250 UNITS in SODIUM CHL 0.9% 250ML (AVIVA) 247.5 ML IVPB SCH ×4 (02:45→14:00)
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
[2018-10-24] MEDS: MORPHINE SULFATE INJ 10 MG/ML VIAL IV PRN ×5 (08:38→22:13)
[2018-10-24] MEDS ORDERED: PROMETHAZINE HCL INJ 25 MG in SODIUM CHLORIDE 0.9% 50ML 50 ML IVPB PRN (09:16)
[2018-10-24] MEDS ORDERED: KCL 20 MEQ/NS 1,000 ML IVS PRN (09:16)
[2018-10-24] MEDS ORDERED: METOCLOPRAMIDE HCL INJ 10 MG/2 ML VIAL IV PRN (09:16)
[2018-10-24] MEDS ORDERED: KCL 20 MEQ/NS 1,000 ML IVS ONE (09:22)
[2018-10-24] MEDS ORDERED: PANTOPRAZOLE SODIUM IV 40 MG VIAL IV SCH (09:30)
[2018-10-24] MEDS ORDERED: INSULIN DETEMIR 100 UNITS/ML PEN SUBCU ONE (11:24)
[2018-10-24] MEDS ORDERED: KCL 20MEQ/D5NS 1,000 ML IVS ONE (12:36)
--- NOTE | 2018-10-24 13:37 | US ---
EXAM DESCRIPTION: Abdomen,Limited CLINICAL HISTORY: RLQ abdominal pain COMPARISON: None Available. TECHNIQUE: Ultrasound of the right lower quadrant and right kidney in area of pain FINDINGS: Multiple images of the right lower quadrant were obtained. Normal bowel containing gas with no bowel wall thickening. No free fluid or focal fluid collection in the right lower quadrant to suggest acute inflammation. It is unknown whether or not graded compression technique was utilized. Right kidney: Renal length is 10.4 cm. Normal cortical echogenicity. Cortical thickness is normal. No hydronephrosis is seen. No renal mass or shadowing calculus. IMPRESSION: No diagnostic abnormality is identified on sonographic examination of the right lower quadrant. Electronically signed by: Tera Luis MD 10/24/2018 1:34 PM CDT
[2018-10-24] MEDS: INSULIN LISPRO 100 UNITS/ML PEN SUBCU SCH ×2 (17:33→20:50)
[2018-10-24] MEDS ORDERED: PANTOPRAZOLE SODIUM IV 40 MG VIAL ONE (19:30)
[2018-10-24] MEDS: ONDANSETRON INJ 4 MG/2 ML VIAL IV PRN (19:35)
[2018-10-24] MEDS: ENOXAPARIN SODIUM 40 MG/0.4 ML SYG SUBCU SCH (20:35)
[2018-10-24] MEDS: KCL 20MEQ/D5 1/2NS 1,000 ML IVS PRN (20:53)
[2018-10-25] MEDS: MORPHINE SULFATE INJ 10 MG/ML VIAL IV PRN ×8 (01:12→23:06)
[2018-10-25] MEDS: KCL 20MEQ/D5 1/2NS 1,000 ML IVS PRN ×3 (03:25→16:09)
[2018-10-25] MEDS: ONDANSETRON INJ 4 MG/2 ML VIAL IV PRN ×4 (05:22→23:57)
[2018-10-25] MEDS: PANTOPRAZOLE SODIUM IV 40 MG VIAL IV SCH (06:15)
[2018-10-25] MEDS: INSULIN LISPRO 100 UNITS/ML PEN SUBCU SCH ×4 (13:05→22:22)
[2018-10-25] MEDS ORDERED: INSULIN DETEMIR 100 UNITS/ML PEN SUBCU ONE ×2 (16:52→22:15)
--- NOTE | 2018-10-25 18:45 | PN ---
DATE: 10/25/18 SUPERVISING PHYSICIAN: Aristides Alvarado M.D. SUBJECTIVE: The patient is showing some improvement. She still had some pain but less than on admission. She is no longer having any nausea and she is actually tolerating clear liquid diets. OBJECTIVE: VITAL SIGNS: temperature 98.2, pulse 74, blood pressure 101/69, respirations 16, satting 100% on room air. GENERAL: The patient is resting comfortably. Appears to be in no acute distress. CHEST: Lungs are clear to auscultation. HEART: Regular rate and rhythm. ABDOMEN: Soft with continued tenderness down towards the right lower quadrant. No rebound tenderness. No point tenderness. EXTREMITIES: Without any clubbing, cyanosis or edema. NEUROLOGIC: She is alert and oriented times three. LABORATORY: Blood sugars have been stable between 84 and 214. Her last BMP after stopping the insulin drip showed normal electrolytes with potassium 3.8. Chloride was just slightly elevated at 113. BUN 12, creatinine less than 0.4. Anion gap was 8.8, calcium 7.8. RADIOLOGY: Abdominal ultrasound per radiology interpretation showed no diagnostic abnormality identified on sonographic examination of the right lower quadrant. ASSESSMENT: 1. HHNK (Hyperosmolar hyperglycemic nonketotic syndrome) with concerns for developing diabetic ketoacidosis in a type 1 diabetic with history of poor control, resolved off insulin drip. 2. Chronic gastroparesis with exacerbation secondary to #1. 3. Persistent nausea and vomiting with severe dehydration secondary to #1 and #2, resolved. 4. Electrolyte imbalance to include hypernatremia due to #1, resolved. 5. Lower abdominal pain with history of chronic pain, ultrasound showing no acute findings. 6. Chronic back pain. 7. Chronic tobacco abuse. 8. Chronic obstructive pulmonary disease without any signs of exacerbation in a chronic smoker. PLAN: The patient is doing well. I have encouraged her to advance her diet today to a full liquid and should she tolerate this, will advance this a regular ADA diet in the morning with anticipation of discharging later tomorrow. The patient is in agreement with the current plan of care and I have discussed that we need to transition her from morphine to [place] in efforts to transition her to an outpatient setting. Until she can transition to outpatient management will continue to monitor and treat as needed. #[id number] [facility]
[2018-10-25] MEDS: ENOXAPARIN SODIUM 40 MG/0.4 ML SYG SUBCU SCH (20:19)
[2018-10-25] MEDS ORDERED: SODIUM CHLORIDE 0.9% 1000ML 1,000 ML ONE (22:13)
[2018-10-25] MEDS: SODIUM CHLORIDE 0.9% 1000ML 1,000 ML IVS PRN (22:20)
[2018-10-26] MEDS: MORPHINE SULFATE INJ 10 MG/ML VIAL IV PRN ×2 (02:40→05:51)
[2018-10-26] MEDS: SODIUM CHLORIDE 0.9% 1000ML 1,000 ML IVS PRN (04:44)
[2018-10-26] MEDS: PANTOPRAZOLE SODIUM IV 40 MG VIAL IV SCH (05:45)
[2018-10-26] MEDS ORDERED: INSULIN DETEMIR 100 UNITS/ML PEN SUBCU SCH (09:00)
[2018-10-26] MEDS ORDERED: HYDROcodone 5MG/APAP 325MG 1 EA TAB PO PRN (09:14)
[2018-10-26] MEDS: INSULIN LISPRO 100 UNITS/ML PEN SUBCU SCH ×2 (10:42→12:15)
[2018-10-26] MEDS ORDERED: diazePAM 5 MG TAB PO PRN (11:28)
[2018-10-26] MEDS ORDERED: ONDANSETRON 4 MG TAB PO PRN (11:28)
[2018-10-26] MEDS ORDERED: PROMETHAZINE HCL 25 MG TAB PO PRN (11:28)
[2018-10-26 14:26] VITALS: BP 105/58; TEMP 98.5; O2SAT 96
--- NOTE | 2018-11-03 11:35 | DS ---
SUPERVISING PHYSICIAN: Aristides Alvarado MD ADMISSION DIAGNOSIS: 1. HHNK (hyperosmolar hyperglycemic nonketotic syndrome) with concerns for developing diabetic ketoacidosis in a type 1 diabetic with history of poor control. 2. Chronic gastroparesis with exacerbation secondary to #1. 3. Persistent nausea and vomiting with severe dehydration secondary to #1 and #2. 4. Electrolyte imbalance to include hypernatremia due to #1. 5. Lower abdominal pain with history of chronic pain awaiting ultrasound. 6. Chronic back pain. 7. Chronic tobacco abuse. 8. Chronic obstructive pulmonary disease without any signs of exacerbation in a chronic smoker. DISCHARGE DIAGNOSIS: 1. HHNK (hyperosmolar hyperglycemic nonketotic syndrome) with initial concerns for diabetic ketoacidosis in a type 1 diabetic with history of poor control, showing good response to insulin drip, but no evidence of ongoing diabetic ketoacidosis. 2. Chronic gastroparesis with exacerbation secondary to #1. 3. Persistent nausea and vomiting with severe dehydration secondary to #1 and #2, resolved. 4. Electrolyte imbalance to include hypernatremia due to #1, resolved. 5. Lower abdominal pain with history of chronic pain, ultrasound showing no acute findings. 6. Chronic back pain. 7. Chronic tobacco abuse. 8. Chronic obstructive pulmonary disease without any signs of exacerbation in a chronic smoker. REASON FOR HOSPITAL: Ms. Perkins is a 43 year-old female patient that is an insulin dependent diabetic with a longstanding history of gastroparesis and chronic abdominal pain. She presented to the E. earlier on 10/23/18 complaining of nausea and vomiting, was treated and sent home. She presented back several hours after initial discharge with worsening symptoms. Laboratory studies showed that she had a glucose of 709 with carbon dioxide of 19, pH of 7.37. Given the patient's medical history and hypoglycemia, and obvious developing early diabetic ketoacidosis, she was started on insulin drip and Dr. Logan, E. . physician, requested the patient be admitted for further management of her symptoms and stabilization of her blood sugars. She was admitted in stable condition. LABORATORY: CBC on admission showed white count 6,100. Differential was without a left shift. Blood gas analysis showed pH 7.37, pO2 37, bicarb 19, pCO2 35, saturation 79% on room air at rest. Chemistries on admission showed glucose 709, sodium 128 corrected to 142, potassium 4.2, initial BUN 23, creatinine 0.79, anion gap normal at 14.2, carbon dioxide 19. Liver functions were all within normal limits. She was started on insulin drip and had several repeats of her BNPs. Last BNP after she was off insulin drip was showing normal electrolytes with carbon dioxide 21, anion gap 8, BUN 12, creatinine less than 0.4, calcium 7.8. Blood sugars have ranged between 55 and 373. Urinalysis showed just 500 glucose, otherwise within normal limits. There were no ketones noted. RADIOLOGY: Abdominal ultrasound after admission per radiologic interpretation showed no diagnostic abnormality identified on sonographic exam of the right lower quadrant. HOSPITAL COURSE: Ms. Perkins was admitted for hyperglycemia and concerns for diabetic ketoacidosis and poor control of her diabetes with nausea and vomiting. She was started on insulin drip initially in the Emergency Room which was continued on the Floor. She had good treatment course, had better control of blood sugars and was able to transition off insulin drip and slowly onto oral diet and subcutaneous insulin. She was clinically stable prior to discharge. She was no longer having any significant nausea, no significant abdominal pains. She did require quite a bit of medication, which is normal for her course which included morphine and Phenergan, however, she was able to transition off the IV medications prior to discharge. PLAN: Mr. Perkins was discharged on 10/26/18 with instructions to followup with her primary care provider, Dr. Rangel, in the following week. She was to resume her home as instructed and monitor her glucose closely and treated as indicated and instructed. She was told to return to the hospital for any worsening symptoms. She had a followup appointment on 10/30/[address] Rangel and Dr. Florez on 10/28/18. No new medications were prescribed at discharge. CONDITION ON DISCHARGE: Stable and improved. DISPOSITION: The patient was discharged to care of family members. #[id number] [facility]
== END 2018-10-26 14:45 | disposition home or self-care (01) | DRG 638 ==
LOC: ER 23:24 → MS 10-24 02:45 → ER 10-24 02:45
PROVIDERS: ADMIT Nurse Practitioner Family; ATTEND Nurse Practitioner Family
DX: E10.65 Type 1 diabetes mellitus with hyperglycemia (principal); E87.0 Hyperosmolality and hypernatremia; E86.0 Dehydration; E10.43 Type 1 diabetes mellitus with diabetic autonomic (poly)neuropathy; K31.84 Gastroparesis; G89.29 Other chronic pain; M54.9 Dorsalgia, unspecified; J44.9 Chronic obstructive pulmonary disease, unspecified; L30.9 Dermatitis, unspecified; K21.9 Gastro-esophageal reflux disease without esophagitis; E11.43 Type 2 diabetes mellitus with diabetic autonomic (poly)neuropathy; M79.7 Fibromyalgia; F41.9 Anxiety disorder, unspecified; F32.9 Major depressive disorder, single episode, unspecified; F17.210 Nicotine dependence, cigarettes, uncomplicated; Z79.891 Long term (current) use of opiate analgesic; Z79.899 Other long term (current) drug therapy

== ENCOUNTER 2018-10-27 21:09 | Emergency (ER) | payer MEDICARE, MEDICAID ==
[2018-10-27 21:23] VITALS: TEMP 98.9
[2018-10-27] MEDS ORDERED: KETOROLAC TROMETHAMINE INJ 60 MG/2 ML VIAL IM ONE (21:27)
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
[2018-10-27] MEDS ORDERED: INSULIN, REG.(HUMAN) 100 U/ML VIAL SUBCU ONE (21:50)
[2018-10-27 22:12] VITALS: BP 118/78; O2SAT 100
--- NOTE | 2018-10-27 22:20 | RAD ---
CLINICAL HISTORY: FELL ON KNEE COMPARISON: March 20, 2018. TECHNIQUE: XR KNEE 1-2 VIEWS 10/27/2018 9:27 PM CDT FINDINGS: There is no fracture. There is mild narrowing of the patellofemoral compartment of the knee. Soft tissues are unremarkable. IMPRESSION: No acute osseous findings. Electronically signed by: Axel Brito MD 10/27/2018 10:17 PM CDT
[2018-10-27] MEDS ORDERED: traMADol HCL 50 MG TAB PO ONE (22:36)
== END 2018-10-27 22:57 | disposition home or self-care (01) ==
LOC: ER 21:09
DX: S80.01XA Contusion of right knee, initial encounter (principal); E11.65 Type 2 diabetes mellitus with hyperglycemia; F32.9 Major depressive disorder, single episode, unspecified; K21.9 Gastro-esophageal reflux disease without esophagitis; J45.909 Unspecified asthma, uncomplicated; R56.9 Unspecified convulsions; W01.0XXA Fall on same level from slipping, tripping and stumbling without subsequent striking against object, initial encounter; Z79.4 Long term (current) use of insulin; Y92.9 Unspecified place or not applicable; Z79.899 Other long term (current) drug therapy; Z87.891 Personal history of nicotine dependence; Z91.013 Allergy to seafood
CPT/HCPCS: 36600; 73560; 82803; 82805; 82947; 82948; J1885

== ENCOUNTER → 2018-10-29 | Outpatient (CLI) | payer MEDICARE, MEDICAID | LOC: LAB.O 15:15 | PROVIDERS: ATTEND Orthopaedic Surgery | DX: Z01.818 Encounter for other preprocedural examination (principal) ==

== ENCOUNTER 2018-11-26 19:38 | Emergency (ER) | payer MEDICARE, MEDICAID ==
[2018-11-26 19:59] VITALS: TEMP 98.9
[2018-11-26] MEDS ORDERED: SODIUM CHLORIDE 0.9% 1000ML 1,000 ML IVS ONE (20:00)
[2018-11-26] MEDS ORDERED: MORPHINE SULFATE INJ 10 MG/ML VIAL IV ONE (20:04)
[2018-11-26] MEDS ORDERED: ONDANSETRON INJ 4 MG/2 ML VIAL IV ONE (20:04)
--- NOTE | 2018-11-26 20:19 | RAD ---
EXAM: Chest,2 Views CLINICAL INDICATION: Shortness of breath COMPARISON: 11/06/2018 FINDINGS: Two views of the chest were obtained. The heart size is normal. The pulmonary vascularity is unremarkable. The lungs are clear. There is no consolidation, infiltrate, pleural effusion, or pneumothorax. IMPRESSION: Normal chest radiographs. Electronically signed by: Hakeem Colon MD 11/26/2018 8:16 PM CDT
[2018-11-26] MEDS ORDERED: INSULIN, REG.(HUMAN) 100 U/ML VIAL IV ONE (21:42)
[2018-11-26 23:08] VITALS: BP 113/80; O2SAT 98
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
== END 2018-11-26 23:37 | disposition home or self-care (01) ==
LOC: ER 19:38
DX: E11.43 Type 2 diabetes mellitus with diabetic autonomic (poly)neuropathy (principal); K31.84 Gastroparesis; R07.89 Other chest pain; R10.11 Right upper quadrant pain; J45.909 Unspecified asthma, uncomplicated; K21.9 Gastro-esophageal reflux disease without esophagitis; R56.9 Unspecified convulsions; F32.9 Major depressive disorder, single episode, unspecified; Z87.891 Personal history of nicotine dependence; Z79.4 Long term (current) use of insulin; Z79.899 Other long term (current) drug therapy
CPT/HCPCS: 36415; 36416; 71046; 80053; 80307; 81001; 82009; 82803; 82948; 83605; 83690; 84484; 85025; 85379; 93005; J2270; J2405; J7030

== ENCOUNTER 2018-11-27 04:51 | Emergency (ER) | payer MEDICARE, MEDICAID ==
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
[2018-11-27] MEDS ORDERED: SODIUM CHLORIDE 0.9% 1000ML 1,000 ML ONE (06:12)
[2018-11-27] MEDS: SODIUM CHLORIDE 0.9% 1000ML 1,000 ML IVS ONE ×2 (06:16→15:39)
[2018-11-27] MEDS: MORPHINE SULFATE INJ 10 MG/ML VIAL IM ONE (06:18)
[2018-11-27] MEDS: METOCLOPRAMIDE HCL INJ 10 MG/2 ML VIAL IM ONE (06:18)
[2018-11-27] MEDS: INSULIN, REG.(HUMAN) 100 U/ML VIAL IV ONE (06:28)
--- NOTE | 2018-11-27 06:59 | CT ---
EXAM: CT Abdomen and Pelvis Without Intravenous Contrast CLINICAL HISTORY: The patient is 43 years old and is Female; RUQ pain TECHNIQUE: Axial computed tomography images of the abdomen and pelvis without intravenous contrast. Sagittal and coronal reformatted images were created and reviewed. This CT exam was performed using one or more of the following dose reduction techniques: automated exposure control, adjustment of the mA and/or kV according to patient size, and/or use of iterative reconstruction technique. COMPARISON: CT of the abdomen and pelvis September 09, 2018. FINDINGS: ARTIFACTS: The exam is suboptimal secondary to motion artifact. LUNG BASES: Unremarkable. No mass. No consolidation. ABDOMEN: LIVER: Homogeneous without focal mass. GALLBLADDER AND BILE DUCTS: Surgical clips are present in the right upper quadrant, consistent with previous cholecystectomy. PANCREAS: Unremarkable. No ductal dilation. SPLEEN: Unremarkable. ADRENALS: Unremarkable. No mass. KIDNEYS AND URETERS: No obstructing stones. No hydronephrosis. STOMACH AND BOWEL: The stomach is moderately distended. The small bowel is normal in appearance. A moderate amount of stool is present throughout the colon. There is no mucosal thickening or evidence of bowel obstruction. PELVIS: APPENDIX: The appendix is surgically absent. BLADDER: The bladder is well distended. No stones. REPRODUCTIVE: A 1.7 cm right ovarian cyst is present. No follow-up imaging is recommended. The patient is status post hysterectomy. ABDOMEN and PELVIS: INTRAPERITONEAL SPACE: Unremarkable. No free air. No significant fluid collection. BONES/JOINTS: No acute fracture. SOFT TISSUES: The soft tissues are normal. VASCULATURE: Unremarkable. No abdominal aortic aneurysm. LYMPH NODES: Shotty bilateral inguinal chain lymph nodes are present, similar to prior exam. IMPRESSION: No acute findings on this noncontrasted CT of the abdomen and pelvis to explain the patient's symptoms. Electronically signed by: Ramona Reed MD 11/27/2018 6:57 AM CDT
[2018-11-27] MEDS: MORPHINE SULFATE INJ 10 MG/ML VIAL IV ONE ×5 (07:04→19:32)
[2018-11-27] MEDS: INSULIN, REG.(HUMAN) 100 U/ML VIAL SUBCU ONE (07:04)
[2018-11-27] MEDS: METOCLOPRAMIDE HCL INJ 10 MG/2 ML VIAL IV ONE (07:04)
[2018-11-27] MEDS: PROMETHAZINE HCL INJ 25 MG/ML VIAL IM ONE (08:08)
[2018-11-27 14:54] VITALS: TEMP 98.6
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
[2018-11-27] MEDS: PROCHLORPERAZINE INJ 10 MG/2 ML VIAL IV ONE ×2 (15:12→19:32)
--- NOTE | 2018-11-27 15:22 | RAD ---
EXAM DESCRIPTION: Chest,1 View CLINICAL HISTORY: 43 years Female, RUQ pain COMPARISON: Chest radiograph 11/26/2018 TECHNIQUE: Single frontal view of the chest. IMPRESSION: Cardiac silhouette is normal in size. No consolidation present. No pleural effusion or pneumothorax. Osseous structures are intact. No significant interval change from 11/26/2018. Electronically signed by: Anton Linares MD 11/27/2018 3:20 PM CDT
--- NOTE | 2018-11-27 16:07 | US ---
EXAM DESCRIPTION: Abdomen,Limited: ULTRASOUND. CLINICAL HISTORY: RUQ pain COMPARISON: CT scan of the abdomen and pelvis this morning and chest x-ray. TECHNIQUE: Transabdominal scanning: madrigal-scale and Doppler modes. FINDINGS: Gallbladder: Cholecystectomy. No fluid in the gallbladder fossa. Right upper quadrant Non-tender with transducer pressure. Common bile duct: caliber 2.5 mm within normal limits. Liver: Heterogeneous echogenicity; region of decreased echogenicity most likely fatty sparing. Contour liver capsule smooth where seen. No fluid around the liver. Intrahepatic biliary ducts normal caliber. Doppler hepatopedal flow and normal caliber portal vein.. Long axis right lobe 16.9 centimeters. Pancreas: normal size and echogenicity. Duct not seen. Proximal abdominal aorta: Normal caliber from the proximal segment to the distal bifurcation.. IVC: visualized and normal caliber. Right kidney: long axis measures 10.8 cm. Normal Echogenicity. Normal cortical thickness. No hydronephrosis IMPRESSION: 1. Heterogeneous mild steatosis of the liver with areas of fatty sparing. Borderline enlargement. Normal vascularity and ducts. Smooth capsule with no ascites. 2. Prior cholecystectomy. Common bile duct, aorta and IVC normal caliber. Pancreas and right kidney unremarkable. Electronically signed by: Marlon Proctor MD 11/27/2018 4:05 PM CDT
[2018-11-27 19:26] VITALS: O2SAT 99
[2018-11-27] MEDS: HYDROCOD/APAP 5/325 (ER DISP) #3 TAB PO ONE (19:46)
[2018-11-27] MEDS: HYDROcodone 5MG/APAP 325MG 1 EA TAB PO ONE (19:50)
[2018-11-27 19:54] VITALS: BP 110/71
== END 2018-11-27 09:05 | disposition home or self-care (01) ==
LOC: ER 04:51
DX: E10.43 Type 1 diabetes mellitus with diabetic autonomic (poly)neuropathy (principal); E10.65 Type 1 diabetes mellitus with hyperglycemia; K31.84 Gastroparesis; R10.11 Right upper quadrant pain; F32.9 Major depressive disorder, single episode, unspecified; R56.9 Unspecified convulsions; J45.909 Unspecified asthma, uncomplicated; K21.9 Gastro-esophageal reflux disease without esophagitis; Z87.891 Personal history of nicotine dependence; Z90.49 Acquired absence of other specified parts of digestive tract; Z79.4 Long term (current) use of insulin; Z79.899 Other long term (current) drug therapy; Z91.013 Allergy to seafood
CPT/HCPCS: 36415; 36416; 74176; 80053; 81001; 82009; 82947; 82948; 83690; 85025; J2060; J2270; J2550; J2765; J7030

== ENCOUNTER 2019-01-13 14:20 | Emergency (ER) | payer MEDICARE, MEDICAID ==
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
[2019-01-13] MEDS: SODIUM CHLORIDE 0.9% (FLUSH) 10 ML SYG IV PRN (15:37)
[2019-01-13] MEDS: KETOROLAC TROMETHAMINE INJ 30 MG/ML VIAL IV ONE (15:38)
[2019-01-13] MEDS: ONDANSETRON INJ 4 MG/2 ML VIAL IV ONE (15:38)
[2019-01-13] MEDS: MORPHINE SULFATE INJ 10 MG/ML VIAL IV ONE (15:38)
[2019-01-13] MEDS: SODIUM CHLORIDE 0.9% 1000ML 1,000 ML IVS ONE (15:39)
[2019-01-13 16:40] VITALS: BP 108/79; O2SAT 99
[2019-01-13 17:00] VITALS: TEMP 98
== END 2019-01-13 16:45 | disposition home or self-care (01) ==
LOC: ER 14:20
DX: R10.11 Right upper quadrant pain (principal); R10.31 Right lower quadrant pain; R11.2 Nausea with vomiting, unspecified; L03.113 Cellulitis of right upper limb; S50.861A Insect bite (nonvenomous) of right forearm, initial encounter; E11.9 Type 2 diabetes mellitus without complications; R00.0 Tachycardia, unspecified; F31.9 Bipolar disorder, unspecified; R56.9 Unspecified convulsions; J45.909 Unspecified asthma, uncomplicated; K21.9 Gastro-esophageal reflux disease without esophagitis; W57.XXXA Bitten or stung by nonvenomous insect and other nonvenomous arthropods, initial encounter; Z87.19 Personal history of other diseases of the digestive system; Z79.4 Long term (current) use of insulin; Z86.14 Personal history of Methicillin resistant Staphylococcus aureus infection; Z87.891 Personal history of nicotine dependence; Z79.899 Other long term (current) drug therapy; Z91.013 Allergy to seafood; Y92.9 Unspecified place or not applicable
CPT/HCPCS: 36415; 80048; 80076; 81001; 83690; 84703; 85025; 93005; J1885; J2270; J2405; J7030

== ENCOUNTER → 2019-01-18 | Emergency (ER) | payer MEDICARE, MEDICAID | LOC: ER 21:39 | DX: R11.2 Nausea with vomiting, unspecified (principal); Z53.21 Procedure and treatment not carried out due to patient leaving prior to being seen by health care provider ==

== ENCOUNTER 2019-01-22 | Emergency (ER) | payer MEDICARE, MEDICAID | END 2019-01-23 00:21 | disposition home or self-care (01) | CPT/HCPCS: 36416; 81001; 82948; J3230 ==

== ENCOUNTER 2019-01-23 | Emergency (ER) | payer MEDICARE, MEDICAID | END 2019-01-23 19:20 | disposition home or self-care (01) | CPT/HCPCS: 36415; 80053; 81001; 83690; 85025; J2060; J2405; J3010; J7030 ==

== ENCOUNTER 2019-01-30 20:14 | Emergency (ER) | payer MEDICARE, MEDICAID ==
[2019-01-30] MEDS ORDERED: MORPHINE SULFATE INJ 10 MG/ML VIAL IV ONE (21:02)
--- NOTE | 2019-01-30 21:14 | RAD ---
EXAM DESCRIPTION: Pelvis CLINICAL HISTORY: 43 years Female Fall, pain to L hip COMPARISON: 03/20/2018. TECHNIQUE: Single AP view of the pelvis. FINDINGS: The patient is on a backboard which limits imaging. A corticated bony density adjacent to the left acetabulum which was present on prior exams consistent with ununited osteophyte. The symphysis pubis and SI joints appear intact. Spina bifida occulta at S1. No acute fractures or dislocations are identified. No osseous destructive lesions. IMPRESSION: No acute fracture is identified. CT or MRI could be obtained to better evaluate the hips if there is continued clinical concern. Electronically signed by: Mignon Lisa MD 01/30/2019 9:12 PM CDT
[2019-01-30] MEDS ORDERED: ONDANSETRON INJ 4 MG/2 ML VIAL IV ONE (21:21)
--- NOTE | 2019-01-30 21:22 | RAD ---
EXAM DESCRIPTION: Hip,Left 2 Views CLINICAL HISTORY: 43 years Female Fall, pain to L hip COMPARISON: None. TECHNIQUE: Two views of the left hip. FINDINGS: The patient is on a backboard which slightly limits evaluation. There is a chronic appearing osseous density adjacent to the lateral margin of the acetabulum. No acute fractures or dislocations are identified. No osseous destructive lesions. There are metallic densities overlying the pelvis for which clinical correlation is recommended. IMPRESSION: No acute fracture is identified. CT or MRI could be obtained to better evaluate if there is continued clinical concern. Electronically signed by: Hao Lisa MD 01/30/2019 9:19 PM CDT
--- NOTE | 2019-01-30 21:27 | RAD ---
EXAM DESCRIPTION: Chest,1 View CLINICAL HISTORY: 43 years Female Fall, left rib pain COMPARISON: 11/27/2018. FINDINGS: The cardiomediastinal silhouette appears unremarkable. No consolidating infiltrates or pleural effusions. No pneumothorax. No acute osseous abnormality is identified. IMPRESSION: No acute abnormality is identified. Electronically signed by: Hao Lisa MD 01/30/2019 9:25 PM CDT
--- NOTE | 2019-01-30 21:36 | CT ---
PROCEDURE: Cervical Spine CLINICAL HISTORY: 43 years Female neck pain after fall COMPARISON: None. TECHNIQUE: Contiguous axial images obtained through the cervical spine without IV contrast. Coronal and sagittal reformatted images obtained. This exam was performed according to our department optimization program which includes automated exposure control, adjustment of the mA and/or kv according to patient size and/or use of iterative reconstruction technique. FINDINGS: Vertebral body alignment is unremarkable. No acute fractures. No significant central canal stenosis. Prevertebral soft tissues appear within normal limits. IMPRESSION: No acute cervical spinal fracture is identified. Electronically signed by: Mignon Lisa MD 01/30/2019 9:34 PM CDT
[2019-01-30 21:37] VITALS: BP 140/87
--- NOTE | 2019-01-30 21:38 | CT ---
PROCEDURE: Head CLINICAL HISTORY: 43 years Female Fall, struck head COMPARISON: None. TECHNIQUE: Contiguous axial CT images obtained through the brain without IV contrast. This exam was performed according to our department optimization program which includes automated exposure control, adjustment of the mA and/or kv according to patient size and/or use of iterative reconstruction technique. FINDINGS: The ventricles and sulci are within normal limits for the patient's age. No midline shift or mass effect. No masses identified. No acute intracranial hemorrhage. No fluid or significant mucosal thickening in the visualized paranasal sinuses. No depressed calvarial fractures. IMPRESSION: No acute intracranial abnormality is identified. Electronically signed by: Mignon Lisa MD 01/30/2019 9:35 PM CDT
[2019-01-30] MEDS ORDERED: KETOROLAC TROMETHAMINE INJ 60 MG/2 ML VIAL IM ONE (22:16)
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
[2019-01-30 22:35] VITALS: TEMP 98.2; O2SAT 97
== END 2019-01-30 22:33 | disposition home or self-care (01) ==
LOC: ER 20:14
DX: S70.02XA Contusion of left hip, initial encounter (principal); S16.1XXA Strain of muscle, fascia and tendon at neck level, initial encounter; S09.90XA Unspecified injury of head, initial encounter; F31.9 Bipolar disorder, unspecified; R56.9 Unspecified convulsions; J45.909 Unspecified asthma, uncomplicated; E11.9 Type 2 diabetes mellitus without complications; K21.9 Gastro-esophageal reflux disease without esophagitis; Z79.899 Other long term (current) drug therapy; Z79.4 Long term (current) use of insulin; Z91.013 Allergy to seafood; Z87.891 Personal history of nicotine dependence; W18.30XA Fall on same level, unspecified, initial encounter; Y92.000 Kitchen of unspecified non-institutional (private) residence as the place of occurrence of the external cause
CPT/HCPCS: 70450; 71045; 72125; 72170; 73502; J1885; J2270; J2405

== ENCOUNTER 2019-02-01 13:27 | Emergency (ER) | payer MEDICARE, MEDICAID ==
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
[2019-02-01] MEDS ORDERED: SODIUM CHLORIDE 0.9% 1000ML 1,000 ML IVS ONE (13:44)
--- NOTE | 2019-02-01 14:20 | RAD ---
EXAM: XR Chest, 1 View CLINICAL HISTORY: 43 years old and is Female; pain TECHNIQUE: Frontal view of the chest. COMPARISON: 01/30/2019 FINDINGS: Limitations: None. Lungs: Unremarkable. No consolidation. Pleural space: Unremarkable. No pneumothorax. Heart: Unremarkable. No cardiomegaly. Mediastinum: Unremarkable. Bones/joints: Unremarkable. Upper abdomen: No free air under the diaphragm. IMPRESSION: No abnormality noted. Electronically signed by: Patricia Mora MD 02/01/2019 2:18 PM CDT
[2019-02-01] MEDS ORDERED: MORPHINE SULFATE INJ 10 MG/ML VIAL IV ONE ×2 (14:47→15:42)
[2019-02-01] MEDS ORDERED: PROMETHAZINE HCL INJ 25 MG/ML VIAL IM ONE (14:47)
[2019-02-01] MEDS ORDERED: SODIUM CHLORIDE 0.9% 500ML 500 ML IVS ONE (15:42)
[2019-02-01] MEDS ORDERED: PROCHLORPERAZINE INJ 10 MG/2 ML VIAL IV PRN (15:42)
[2019-02-01 16:36] VITALS: BP 112/75; TEMP 97; O2SAT 99
== END 2019-02-01 16:36 | disposition home or self-care (01) ==
LOC: ER 13:27
DX: E10.43 Type 1 diabetes mellitus with diabetic autonomic (poly)neuropathy (principal); K31.84 Gastroparesis; E10.65 Type 1 diabetes mellitus with hyperglycemia; R00.0 Tachycardia, unspecified; K21.9 Gastro-esophageal reflux disease without esophagitis; F31.9 Bipolar disorder, unspecified; J45.909 Unspecified asthma, uncomplicated; Z90.49 Acquired absence of other specified parts of digestive tract; Z87.891 Personal history of nicotine dependence; Z79.899 Other long term (current) drug therapy; Z79.4 Long term (current) use of insulin; Z91.013 Allergy to seafood
CPT/HCPCS: 36415; 71045; 80048; 80076; 81001; 82550; 82553; 83690; 84484; 85025; 85610; 85730; 93005; J0780; J2060; J2270; J2550; J7030; J7040

== ENCOUNTER 2019-02-07 23:43 | Emergency (ER) | payer MEDICARE, MEDICAID ==
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
[2019-02-08] MEDS ORDERED: MORPHINE SULFATE INJ 10 MG/ML VIAL IV ONE ×2 (00:11→02:22)
[2019-02-08] MEDS ORDERED: SODIUM CHLORIDE 0.9% 1000ML 1,000 ML IVS ONE (00:11)
[2019-02-08] MEDS ORDERED: PROCHLORPERAZINE INJ 10 MG/2 ML VIAL IV ONE (00:11)
[2019-02-08] MEDS ORDERED: INSULIN, REG.(HUMAN) 100 U/ML VIAL IV ONE (01:06)
[2019-02-08] MEDS ORDERED: LIDOCAINE 1% W/ EPINEPHRINE 20 ML VIAL INJ ONE (02:19)
[2019-02-08] MEDS ORDERED: NEOMYCIN-BACITRACIN-POLYMYXIN 0.9 GM UD TOP ONE (02:58)
[2019-02-08 03:08] VITALS: BP 95/70
[2019-02-08 03:28] VITALS: TEMP 97.3; O2SAT 96
== END 2019-02-08 03:25 | disposition home or self-care (01) ==
LOC: ER 23:43
DX: E10.43 Type 1 diabetes mellitus with diabetic autonomic (poly)neuropathy (principal); K31.84 Gastroparesis; S01.311A Laceration without foreign body of right ear, initial encounter; F31.9 Bipolar disorder, unspecified; R56.9 Unspecified convulsions; J45.909 Unspecified asthma, uncomplicated; K21.9 Gastro-esophageal reflux disease without esophagitis; W22.09XA Striking against other stationary object, initial encounter; Y92.239 Unspecified place in hospital as the place of occurrence of the external cause; Z90.49 Acquired absence of other specified parts of digestive tract; Z87.891 Personal history of nicotine dependence; Z79.4 Long term (current) use of insulin; Z79.899 Other long term (current) drug therapy; Z91.013 Allergy to seafood
CPT/HCPCS: 36415; 36416; 80048; 80076; 81001; 82550; 82553; 82948; 83690; 84484; 85025; 85610; 85730; J0780; J2060; J2270; J7030

== ENCOUNTER 2019-02-09 05:51 | Emergency (ER) | payer MEDICARE, MEDICAID ==
[2019-02-09] MEDS ORDERED: SODIUM CHLORIDE 0.9% 1000ML 1,000 ML IVS ONE (06:12)
[2019-02-09] MEDS ORDERED: diphenhydrAMINE HCL 50 MG/ML VIAL IV ONE (06:13)
[2019-02-09] MEDS ORDERED: METOCLOPRAMIDE HCL INJ 10 MG/2 ML VIAL IV ONE (06:14)
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
[2019-02-09] MEDS ORDERED: INSULIN, REG.(HUMAN) 250 UNITS in SODIUM CHL 0.9% 250ML (AVIVA) 247.5 ML IVPB SCH ×2 (07:30)
[2019-02-09] MEDS ORDERED: KCL 20 MEQ/NS 1,000 ML IVS PRN (07:31)
[2019-02-09] MEDS ORDERED: INSULIN, REG.(HUMAN) 100 U/ML VIAL ONE (07:33)
[2019-02-09] MEDS ORDERED: SODIUM CHL 0.9% 250ML (AVIVA) 250 ML IVPB ONE (07:33)
[2019-02-09 08:24] VITALS: BP 119/68; TEMP 98.6; O2SAT 100
== END 2019-02-09 08:40 | disposition short-term general hospital (02) ==
LOC: ER 05:51
DX: E11.10 Type 2 diabetes mellitus with ketoacidosis without coma (principal); R07.9 Chest pain, unspecified; R11.2 Nausea with vomiting, unspecified; R00.0 Tachycardia, unspecified; F31.9 Bipolar disorder, unspecified; J45.909 Unspecified asthma, uncomplicated; K21.9 Gastro-esophageal reflux disease without esophagitis; R56.9 Unspecified convulsions; Z87.891 Personal history of nicotine dependence; Z79.4 Long term (current) use of insulin; Z79.899 Other long term (current) drug therapy; Z91.013 Allergy to seafood
CPT/HCPCS: 36415; 36416; 36600; 80048; 80307; 81001; 82550; 82553; 82803; 82805; 82947; 82948; 84484; 85025; 85610; 85730; 93005; 94760; J1200; J2060; J2765; J3480; J7030

== ENCOUNTER 2019-02-21 14:03 | Emergency (ER) | payer MEDICARE, MEDICAID ==
[2019-02-21] MEDS ORDERED: BUTORPHANOL TARTRATE 2 MG/ML VIAL IV ONE ×2 (14:16→15:15)
--- NOTE | 2019-02-21 14:50 | RAD ---
EXAM: XR Left Elbow, 2 Views CLINICAL HISTORY: 43 years old and is Female; fall with pain TECHNIQUE: Frontal and lateral views of the left elbow. COMPARISON: No relevant prior studies available. FINDINGS: Limitations: None. Bones/joints: Unremarkable. No acute fracture. No dislocation. Soft tissues: Unremarkable. IMPRESSION: No acute findings. Electronically signed by: Patricia Mora MD 02/21/2019 2:47 PM CDT
--- NOTE | 2019-02-21 14:55 | RAD ---
EXAM: XR Left Knee, 1 or 2 views CLINICAL HISTORY: 43 years old and is Female; fall with pain TECHNIQUE: Frontal and/or lateral views of the left knee. COMPARISON: No relevant prior studies available. FINDINGS: Limitations: None. Bones/joints: Unremarkable. No acute fracture. No dislocation. Soft tissues: Unremarkable. IMPRESSION: No acute findings. Electronically signed by: Patricia Mora MD 02/21/2019 2:53 PM CDT
--- NOTE | 2019-02-21 14:57 | RAD ---
EXAM: XR Left Hip With Pelvis When Performed, 2 or 3 Views CLINICAL HISTORY: 43 years old and is Female; fall with pain TECHNIQUE: Two or three views of the left hip, with pelvis when performed. COMPARISON: No relevant prior studies available. FINDINGS: Limitations: None. Bones/joints: Unremarkable. No acute fracture. No dislocation. Soft tissues: Unremarkable. IMPRESSION: No acute findings. Electronically signed by: Patricia Mora MD 02/21/2019 2:55 PM CDT
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
[2019-02-21 16:32] VITALS: BP 116/59; TEMP 97.9; O2SAT 98
== END 2019-02-21 15:21 | disposition home or self-care (01) ==
LOC: ER 14:03
DX: S76.012A Strain of muscle, fascia and tendon of left hip, initial encounter (principal); S80.812A Abrasion, left lower leg, initial encounter; S50.312A Abrasion of left elbow, initial encounter; R56.9 Unspecified convulsions; J45.909 Unspecified asthma, uncomplicated; E11.9 Type 2 diabetes mellitus without complications; K21.9 Gastro-esophageal reflux disease without esophagitis; F31.9 Bipolar disorder, unspecified; W01.0XXA Fall on same level from slipping, tripping and stumbling without subsequent striking against object, initial encounter; Y92.009 Unspecified place in unspecified non-institutional (private) residence as the place of occurrence of the external cause; Z79.899 Other long term (current) drug therapy; Z79.4 Long term (current) use of insulin; Z91.013 Allergy to seafood; Z87.891 Personal history of nicotine dependence
CPT/HCPCS: 73070; 73502; 73560; J0595

== ENCOUNTER 2019-02-23 21:55 | Inpatient (IN) | payer MEDICARE, MEDICAID ==
[2019-02-23] MEDS ORDERED: ONDANSETRON ODT 8 MG TAB SL ONE (22:15)
[2019-02-23] MEDS ORDERED: PROMETHAZINE HCL INJ 25 MG in SODIUM CHLORIDE 0.9% 50ML 50 ML IM ONE (22:15)
[2019-02-23] MEDS ORDERED: PROMETHAZINE HCL INJ 25 MG/ML VIAL ONE (22:23)
[2019-02-23] MEDS ORDERED: PROMETHAZINE HCL INJ 25 MG/ML VIAL IM ONE (22:27)
[2019-02-23] MEDS ORDERED: diazePAM INJ 10 MG/2 ML SYG IM ONE (22:51)
[2019-02-23] MEDS ORDERED: SODIUM CHLORIDE 0.9% 1000ML 1,000 ML IVS ONE (23:07)
[2019-02-23] MEDS ORDERED: INSULIN LISPRO 100 UNITS/ML PEN SUBCU ONE (23:07)
[2019-02-23] MEDS ORDERED: HYDROmorphone HCL INJ 2 MG/ML VIAL IV ONE (23:37)
[2019-02-23] MEDS ORDERED: INSULIN, REG.(HUMAN) 100 U/ML VIAL ONE (23:51)
[2019-02-23] MEDS ORDERED: SODIUM CHL 0.9% 250ML (AVIVA) 250 ML IVPB ONE (23:51)
[2019-02-24] MEDS ORDERED: PANTOPRAZOLE SODIUM IV 40 MG VIAL IV ONE (00:04)
[2019-02-24] MEDS ORDERED: PANTOPRAZOLE SODIUM IV 40 MG VIAL ONE (00:04)
[2019-02-24] MEDS ORDERED: SODIUM CHLORIDE 0.9% 1000ML 1,000 ML IVS ONE ×2 (00:28→09:02)
[2019-02-24] MEDS: INSULIN, REG.(HUMAN) 250 UNITS in SODIUM CHL 0.9% 250ML (AVIVA) 247.5 ML IVPB SCH ×2 (00:32)
[2019-02-24] MEDS ORDERED: HYDROmorphone HCL INJ 2 MG/ML VIAL IV ONE ×2 (02:50→08:50)
[2019-02-24] MEDS ORDERED: SCOPOLAMINE PATCH 1.5MG 1 EA TD ONE (03:49)
[2019-02-24] MEDS ORDERED: INSULIN DETEMIR 100 UNITS/ML PEN SUBCU ONE (03:51)
[2019-02-24] MEDS ORDERED: KCL 20MEQ/D5 1/2NS 1,000 ML IVS ONE (03:54)
[2019-02-24] MEDS ORDERED: diazePAM 5 MG TAB PO ONE (03:56)
[2019-02-24] MEDS ORDERED: HYDROcodone 7.5MG/APAP 325MG 1 EA TAB PO ONE (03:56)
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
[2019-02-24] MEDS ORDERED: DEXTROSE 50% 25 GM/50 ML SYG IV PRN (07:28)
[2019-02-24] MEDS ORDERED: GLUCAGON INJ 1 MG VIAL SUBCU PRN (07:33)
[2019-02-24] MEDS ORDERED: SODIUM CHLORIDE 0.9% (FLUSH) 10 ML SYG IV PRN (07:35)
[2019-02-24] MEDS ORDERED: MOMETASONE FUROATE 0.1% TOP PRN (07:39)
[2019-02-24] MEDS ORDERED: ONDANSETRON INJ 4 MG/2 ML VIAL IV PRN (07:41)
[2019-02-24] MEDS ORDERED: VENLAFAXINE XR 75 MG CAP ONE (07:51)
[2019-02-24] MEDS ORDERED: busPIRone HCL 5 MG TAB ONE (07:52)
[2019-02-24] MEDS ORDERED: PREGABALIN 100 MG CAP ONE (07:53)
[2019-02-24] MEDS: INSULIN LISPRO 100 UNITS/ML PEN SUBCU SCH ×3 (07:57→18:05)
[2019-02-24] MEDS ORDERED: IV SET AND CAP CHANGE INJ INJ SCH (08:00)
[2019-02-24] MEDS: INSULIN DETEMIR 100 UNITS/ML PEN SUBCU SCH (08:00)
[2019-02-24] MEDS: PREGABALIN 75 MG CAP PO SCH ×3 (08:34→22:51)
[2019-02-24] MEDS: HYDROcodone 10MG/APAP 325MG 1 EA TAB PO SCH ×4 (08:35→22:55)
[2019-02-24] MEDS: diazePAM 5 MG TAB PO SCH ×3 (08:36→22:52)
[2019-02-24] MEDS ORDERED: METOCLOPRAMIDE HCL INJ 10 MG/2 ML VIAL IV ONE (08:56)
[2019-02-24] MEDS ORDERED: BUSPIRONE HCL 30 MG PO SCH (09:00)
[2019-02-24] MEDS ORDERED: NON-FORMULARY MEDICATION 1 EA MIS (Venlafaxine Hcl [Venlafaxine Hcl Er] 300 MG) PO SCH (09:00)
[2019-02-24] MEDS ORDERED: KCL 20MEQ/D5 1/2NS 1,000 ML IVS PRN (09:03)
[2019-02-24] MEDS: [UNRECOGNIZED DRUG - OTHER] SC SCH ×3 (11:20→20:46)
[2019-02-24] MEDS: INSULIN ASPART SC SCH ×3 (11:20→20:46)
[2019-02-24] MEDS ORDERED: PROMETHAZINE HCL INJ 25 MG/ML VIAL ONE ×2 (12:01→19:42)
[2019-02-24] MEDS ORDERED: SODIUM CHLORIDE 0.9% 50ML 50 ML ONE ×2 (12:01→19:42)
[2019-02-24] MEDS: HYDROmorphone HCL INJ 2 MG/ML VIAL IV PRN ×3 (12:10→21:31)
[2019-02-24] MEDS: PROMETHAZINE HCL INJ 25 MG in SODIUM CHLORIDE 0.9% 50ML 50 ML IVPB PRN ×2 (12:10→19:47)
[2019-02-24] MEDS ORDERED: MAGNESIUM SULFATE PREMIX 2GM 2 GM in PREMIX BAG 1 BAG IVPB ONE (18:57)
[2019-02-24] MEDS ORDERED: MAGNESIUM SULFATE PREMIX 2GM 50 ML IVPB ONE (19:08)
[2019-02-24] MEDS: KCL 20MEQ/D5 1/2NS 1,000 ML IVS PRN (19:37)
[2019-02-24] MEDS: ENOXAPARIN SODIUM 40 MG/0.4 ML SYG SUBCU SCH (20:40)
[2019-02-24] MEDS ORDERED: diphenhydrAMINE HCL 50 MG/ML VIAL ONE (21:19)
[2019-02-24] MEDS: diphenhydrAMINE HCL 50 MG/ML VIAL IV PRN (21:26)
[2019-02-24] MEDS: busPIRone HCL 5 MG TAB PO SCH (22:51)
[2019-02-25] MEDS: INSULIN, REG.(HUMAN) 250 UNITS in SODIUM CHL 0.9% 250ML (AVIVA) 247.5 ML IVPB SCH ×2 (01:03)
[2019-02-25] MEDS ORDERED: PROMETHAZINE HCL INJ 25 MG/ML VIAL ONE ×4 (01:06→13:37)
[2019-02-25] MEDS ORDERED: SODIUM CHLORIDE 0.9% 50ML 50 ML ONE ×4 (01:06→13:38)
[2019-02-25] MEDS: PROMETHAZINE HCL INJ 25 MG in SODIUM CHLORIDE 0.9% 50ML 50 ML IVPB PRN ×4 (01:10→15:04)
[2019-02-25] MEDS: INSULIN LISPRO 100 UNITS/ML PEN SUBCU SCH ×4 (01:35→18:13)
[2019-02-25] MEDS: HYDROmorphone HCL INJ 2 MG/ML VIAL IV PRN ×6 (01:35→22:43)
[2019-02-25] MEDS: KCL 20MEQ/D5 1/2NS 1,000 ML IVS PRN ×2 (05:39→19:02)
[2019-02-25] MEDS: diphenhydrAMINE HCL 50 MG/ML VIAL IV PRN ×2 (07:31→17:10)
[2019-02-25] MEDS: INSULIN DETEMIR 100 UNITS/ML PEN SUBCU SCH (07:32)
[2019-02-25] MEDS: [UNRECOGNIZED DRUG - OTHER] SC SCH ×4 (07:34→20:54)
[2019-02-25] MEDS: INSULIN ASPART SC SCH ×4 (07:34→20:54)
[2019-02-25] MEDS: HYDROcodone 10MG/APAP 325MG 1 EA TAB PO SCH ×4 (08:43→20:54)
[2019-02-25] MEDS: busPIRone HCL 5 MG TAB PO SCH ×2 (08:43→20:53)
[2019-02-25] MEDS: PREGABALIN 75 MG CAP PO SCH (08:45)
[2019-02-25] MEDS: diazePAM 5 MG TAB PO SCH ×3 (08:46→20:54)
[2019-02-25] MEDS ORDERED: VENLAFAXINE XR 75 MG CAP PO SCH (09:00)
[2019-02-25] MEDS ORDERED: SALMETEROL XINAFOATE 50 MCG INH SCH ×3 (09:00→12:00)
[2019-02-25] MEDS: PREGABALIN 100 MG CAP PO SCH ×2 (09:02→14:32)
[2019-02-25] MEDS ORDERED: TROLAMINE SALICYLATE CREAM 1 APPLIC TUBE TOP ONE (11:05)
--- NOTE | 2019-02-25 11:13 | PN ---
SUPERVISING PHYSICIAN: Aristides Alvarado MD DATE: 02/25/19 SUBJECTIVE: The patient is sitting up in bed. She has no complaints of shortness of breath or chest pain. She has had some nausea. She did throw up part of her breakfast this morning, but it was a very small amount, less than 30 mL. She also complained of a rash on the inside of her right arm, but there is no shortness of breath or chest pain. OBJECTIVE: VITAL SIGNS: Temperature 98. Heart rate 96. Blood pressure 110/76. Respiratory rate 19. O2 saturation 99% on room air. RESPIRATORY: Essentially clear to auscultation bilaterally. CARDIAC: Regular rate and rhythm. GASTROINTESTINAL: Abdomen is soft, nondistended, nontender. Bowel sounds are positive. SKIN: She has a patch of skin that appears to be eczema on her right inner forearm. It is about 5 to 6 cm in diameter. It is red, scaly and rough in texture. NEUROLOGIC: Awake, alert and oriented times three. LABORATORY: WBCs have normalized to 8,900 with hemoglobin 11.3, hematocrit 33.9. Sodium slightly low at 133 with potassium 4.1, chloride 105, carbon dioxide 19. BUN 6, creatinine 0.46. Her calcium is 8.3, magnesium 1.8. Serum ketones are negative. All other labs and films have been reviewed via the EMR. ASSESSMENT: 1. Mild diabetic ketoacidosis secondary to chronic and acute on chronic gastroparesis, unable to hold her oral medications. Her serum ketones are now negative. 2. Acute on chronic gastroparesis contributing to #1. 3. Electrolyte imbalance secondary to diabetic ketoacidosis. 4. Leukocytosis with no real signs of infectious process, more likely a stress response to persistent nausea and vomiting. 5. History of type 1 diabetes, poorly controlled, contributing to above. 6. Chronic tobacco abuse. 7. Chronic eczema. 8. Chronic lower abdominal pain, awaiting further workup. 9. Chronic tobacco abuse. 10. Chronic obstructive pulmonary disease in a smoker without any signs of exacerbation. PLAN: We will continue present supportive care. I have decreased her IV fluids and her diet has been advanced. Her diet will be slowly advanced today as tolerated. I have given her some triamcinolone cream for the eczema patch on her arm. I have ordered labs for in the morning. We will continue to monitor the patient closely and follow as needed. #[id number] [facility]
[2019-02-25] MEDS: TRIAMCINOLONE 0.5% CREAM 15 GM TUBE TOP SCH ×2 (11:14→20:54)
[2019-02-25] MEDS ORDERED: PREGABALIN 100 MG CAP PO SCH (15:37)
[2019-02-25] MEDS ORDERED: PREGABALIN 25 MG CAP PO ONE (16:00)
[2019-02-25] MEDS: tiZANidine 4 MG TAB PO SCH ×2 (16:42→20:54)
[2019-02-25] MEDS ORDERED: PREGABALIN 25 MG CAP ONE (19:17)
[2019-02-25] MEDS: ENOXAPARIN SODIUM 40 MG/0.4 ML SYG SUBCU SCH (20:54)
[2019-02-25] MEDS ORDERED: ZOLPIDEM TARTRATE 5 MG TAB PO SCH (21:00)
[2019-02-25] MEDS ORDERED: INSULIN LISPRO 100 UNITS/ML PEN SUBCU SCH (21:00)
[2019-02-26] MEDS ORDERED: SODIUM CHLORIDE 0.9% 50ML 50 ML ONE (00:08)
[2019-02-26] MEDS ORDERED: PROMETHAZINE HCL INJ 25 MG/ML VIAL ONE (00:08)
[2019-02-26] MEDS: PROMETHAZINE HCL INJ 25 MG in SODIUM CHLORIDE 0.9% 50ML 50 ML IVPB PRN (00:21)
[2019-02-26 00:34] VITALS: O2SAT 96
[2019-02-26] MEDS: diphenhydrAMINE HCL 50 MG/ML VIAL IV PRN (01:11)
[2019-02-26] MEDS: HYDROmorphone HCL INJ 2 MG/ML VIAL IV PRN (02:45)
[2019-02-26 06:24] VITALS: BP 109/70; TEMP 98.4
--- NOTE | 2019-02-26 11:06 | DS ---
SUPERVISING PHYSICIAN: Aristides Alvarado MD DISCHARGE DIAGNOSIS: 1. Mild diabetic ketoacidosis secondary to chronic and acute on chronic gastroparesis, unable to hold her oral medications. Her serum ketones are now negative. 2. Acute on chronic gastroparesis contributing to #1. 3. Electrolyte imbalance secondary to diabetic ketoacidosis. 4. Leukocytosis with no real signs of infectious process, more likely a stress response to persistent nausea and vomiting. 5. History of type 1 diabetes, poorly controlled, contributing to above. 6. Chronic tobacco abuse. 7. Chronic eczema. 8. Chronic lower abdominal pain, awaiting further workup. 9. Chronic tobacco abuse. 10. Chronic obstructive pulmonary disease in a smoker without any signs of exacerbation. HISTORY OF PRESENT ILLNESS: This is a 43-year-old female patient who is well- known to the hospital with a history of uncontrolled diabetes with frequent hospitalizations for diabetic ketoacidosis. She presented to the Emergency Room after she developed some nausea and vomiting and noted her blood sugars were over 600 at home. Her glucose in the Emergency Room was 657. Laboratory studies initially showed a metabolic process, but no ABGs were completed. She noted she was having some abdominal cramps, but there is a longstanding history of gastroparesis and abdominal pains. She also has chronic pain syndrome and sees a pain management doctor. There were no fevers, chest pains and she was alert at time of arrival. The patient was positive for initial serum ketones and was admitted to the hospital for treatment of diabetic ketoacidosis and gastroparesis. HOSPITAL COURSE: In the Emergency Room, she was treated with IV insulin and had good response. She also received fluids. Initially, she was still acidotic with moderate ketones and was given further fluid management and supplementation. She was NPO on her first day and her diet was advanced. She was started on long-acting insulin. Her BMP was checked every 6 hours with fingersticks every 3 hours. She had Phenergan and Zofran for antiemetics. After 24 hours, her fluids were discontinued. Her serum ketones were negative and her diet was advanced slowly. She tolerated that without problem. She did complain of anxiety and pain with some neck pain, but her pain issues are longstanding and chronic. She does have an appointment with her pain management doctor today in [place]. She is stable and will be discharged home and can followup with him today as well as Dr. Rangel. LABORATORY: CBC is within normal limits. Her metabolic panel was unremarkable. Her blood sugars have run between 120 and 281. Her serum ketones started at moderate and she had 2 labs that small and are now negative. RADIOLOGY: There is no radiology or testing to report. DISCHARGE PLAN: The patient will be discharged home in stable condition. She is to resume her diabetic diet, increase her activity as tolerated. She is to followup with Dr. Rangel within 1 to 2 weeks. She is to see her pain management doctor in [place] today. She is to resume her previous medications. She is to return to the hospital or followup with Dr. Rangel for any problems or complications. DISCHARGE MEDICATIONS: 1. Zolpidem. 2. Hydrocodone. 3. Elocon. 4. Promethazine. 5. Venlafaxine. 6. Lyrica. 7. Buspirone. 8. Zofran. 9. Diazepam. 10. Levemir insulin. 11. Aspart insulin. 12. Albuterol inhaler. 13. Serevent Mirian. [facility][id number] [facility]
== END 2019-02-26 06:29 | disposition home or self-care (01) | DRG 639 ==
LOC: ER 21:55 → OBSVTOIN 02-24 04:35 → MS 02-24 04:35
PROVIDERS: ADMIT Nurse Practitioner Family; ATTEND Nurse Practitioner Acute Care
DX: E10.10 Type 1 diabetes mellitus with ketoacidosis without coma (principal); E10.43 Type 1 diabetes mellitus with diabetic autonomic (poly)neuropathy; K31.84 Gastroparesis; D72.829 Elevated white blood cell count, unspecified; J44.9 Chronic obstructive pulmonary disease, unspecified; L30.9 Dermatitis, unspecified; G89.4 Chronic pain syndrome; R10.30 Lower abdominal pain, unspecified; M54.2 Cervicalgia; F41.9 Anxiety disorder, unspecified; E10.42 Type 1 diabetes mellitus with diabetic polyneuropathy; M79.7 Fibromyalgia; M54.5 Low back pain; F31.9 Bipolar disorder, unspecified; F17.210 Nicotine dependence, cigarettes, uncomplicated; Z98.890 Other specified postprocedural states; Z90.49 Acquired absence of other specified parts of digestive tract; Z79.4 Long term (current) use of insulin; Z79.891 Long term (current) use of opiate analgesic; Z79.899 Other long term (current) drug therapy; Z91.010 Allergy to peanuts; Z91.013 Allergy to seafood

== ENCOUNTER 2019-03-02 18:10 | Emergency (ER) | payer MEDICARE, MEDICAID ==
[2019-03-02] MEDS ORDERED: PROMETHAZINE HCL INJ 25 MG/ML VIAL IM ONE (21:03)
[2019-03-02] MEDS ORDERED: HYDROmorphone HCL INJ 2 MG/ML VIAL IM ONE (21:03)
[2019-03-02] MEDS ORDERED: INSULIN, REG.(HUMAN) 100 U/ML VIAL SUBCU ONE (23:13)
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
[2019-03-03] MEDS ORDERED: HYDROmorphone HCL INJ 2 MG/ML VIAL IM ONE (00:39)
[2019-03-03] MEDS ORDERED: PROMETHAZINE HCL INJ 25 MG/ML VIAL IM ONE (00:39)
[2019-03-03 01:23] VITALS: BP 126/85; TEMP 97.5; O2SAT 97
== END 2019-03-03 01:23 | disposition home or self-care (01) ==
LOC: ER 18:10
DX: E10.43 Type 1 diabetes mellitus with diabetic autonomic (poly)neuropathy (principal); E10.65 Type 1 diabetes mellitus with hyperglycemia; K31.84 Gastroparesis; F17.200 Nicotine dependence, unspecified, uncomplicated; K21.9 Gastro-esophageal reflux disease without esophagitis; J45.909 Unspecified asthma, uncomplicated; Z86.73 Personal history of transient ischemic attack (TIA), and cerebral infarction without residual deficits; Z79.4 Long term (current) use of insulin; Z79.899 Other long term (current) drug therapy
CPT/HCPCS: 80053; 81001; 82948; 85025; J1170; J2550

== ENCOUNTER 2019-03-03 11:58 | Emergency (ER) | payer MEDICARE, MEDICAID ==
[2019-03-03] MEDS ORDERED: SODIUM CHLORIDE 0.9% 1000ML 1,000 ML IVS ONE (12:09)
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
[2019-03-03 13:44] VITALS: BP 102/66; TEMP 97; O2SAT 98
== END 2019-03-03 13:44 | disposition home or self-care (01) ==
LOC: ER 11:58
DX: E11.43 Type 2 diabetes mellitus with diabetic autonomic (poly)neuropathy (principal); K31.84 Gastroparesis; K21.9 Gastro-esophageal reflux disease without esophagitis; Z86.73 Personal history of transient ischemic attack (TIA), and cerebral infarction without residual deficits; F17.200 Nicotine dependence, unspecified, uncomplicated; F31.9 Bipolar disorder, unspecified; Z79.4 Long term (current) use of insulin; Z79.899 Other long term (current) drug therapy
CPT/HCPCS: 80053; 81001; 85025; J7030

== ENCOUNTER 2019-03-16 19:40 | Emergency (ER) | payer MEDICARE, MEDICAID ==
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
[2019-03-16] MEDS ORDERED: SODIUM CHLORIDE 0.9% 500ML 500 ML IVS ONE (20:29)
[2019-03-16] MEDS ORDERED: HYDROmorphone HCL INJ 2 MG/ML VIAL IV ONE (20:29)
[2019-03-16] MEDS ORDERED: PROCHLORPERAZINE INJ 10 MG/2 ML VIAL IV ONE (20:29)
[2019-03-16] MEDS ORDERED: INSULIN, REG.(HUMAN) 100 U/ML VIAL IV ONE (21:13)
[2019-03-16] MEDS ORDERED: INSULIN, REG.(HUMAN) 100 U/ML VIAL SUBCU ONE (23:14)
[2019-03-17] MEDS ORDERED: HYDROmorphone HCL INJ 2 MG/ML VIAL IV ONE (00:06)
[2019-03-17] MEDS ORDERED: HYDROCOD/APAP 5/325 (ER DISP) #3 TAB PO ONE (01:28)
[2019-03-17 01:50] VITALS: BP 120/82; TEMP 97.9; O2SAT 100
== END 2019-03-17 01:45 | disposition home or self-care (01) ==
LOC: ER 19:40
DX: E10.65 Type 1 diabetes mellitus with hyperglycemia (principal); R30.0 Dysuria; R10.12 Left upper quadrant pain; R21 Rash and other nonspecific skin eruption; G47.00 Insomnia, unspecified; F31.9 Bipolar disorder, unspecified; R56.9 Unspecified convulsions; J45.909 Unspecified asthma, uncomplicated; K21.9 Gastro-esophageal reflux disease without esophagitis; Z79.4 Long term (current) use of insulin; Z90.49 Acquired absence of other specified parts of digestive tract; Z79.899 Other long term (current) drug therapy; Z91.013 Allergy to seafood
CPT/HCPCS: 80053; 81001; 82009; 82947; 82948; 85025; J0780; J1170; J7040

== ENCOUNTER 2019-03-19 22:40 | Emergency (ER) | payer MEDICARE, MEDICAID ==
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
[2019-03-20] MEDS ORDERED: HYDROmorphone HCL INJ 2 MG/ML VIAL IV ONE ×2 (00:29→02:37)
[2019-03-20] MEDS ORDERED: SODIUM CHLORIDE 0.9% 500ML 500 ML IVS ONE (00:29)
[2019-03-20] MEDS ORDERED: PROCHLORPERAZINE INJ 10 MG/2 ML VIAL IV ONE ×2 (00:29→02:37)
[2019-03-20 00:39] VITALS: O2SAT 100
[2019-03-20] MEDS ORDERED: SODIUM CHLORIDE 0.9% 1000ML 1,000 ML ONE (00:54)
[2019-03-20] MEDS ORDERED: INSULIN, REG.(HUMAN) 100 U/ML VIAL SUBCU ONE (01:37)
[2019-03-20] MEDS ORDERED: INSULIN, REG.(HUMAN) 100 U/ML VIAL IV ONE (01:37)
[2019-03-20] MEDS ORDERED: HYDROCOD/APAP 5/325 (ER DISP) #3 TAB PO ONE (02:37)
[2019-03-20 03:07] VITALS: BP 109/76; TEMP 97.2
== END 2019-03-20 03:08 | disposition home or self-care (01) ==
LOC: ER 22:40
DX: R10.11 Right upper quadrant pain (principal); E10.65 Type 1 diabetes mellitus with hyperglycemia; K21.9 Gastro-esophageal reflux disease without esophagitis; F31.9 Bipolar disorder, unspecified; J45.909 Unspecified asthma, uncomplicated; R56.9 Unspecified convulsions; Z90.49 Acquired absence of other specified parts of digestive tract; Z87.891 Personal history of nicotine dependence; Z86.73 Personal history of transient ischemic attack (TIA), and cerebral infarction without residual deficits; Z79.4 Long term (current) use of insulin; Z79.899 Other long term (current) drug therapy
CPT/HCPCS: 80053; 82948; 85025; J0780; J1170; J7030

== ENCOUNTER 2019-03-21 16:58 | Emergency (ER) | payer MEDICARE, MEDICAID ==
[2019-03-21] MEDS ORDERED: PROMETHAZINE HCL INJ 25 MG/ML VIAL IM ONE (17:33)
[2019-03-21] MEDS ORDERED: MORPHINE SULFATE INJ 10 MG/ML VIAL IM ONE (17:34)
[2019-03-21] MEDS ORDERED: BENZTROPINE MESYLATE INJ 2 MG/2 ML AMP IM ONE (17:36)
[2019-03-21] MEDS ORDERED: SODIUM CHLORIDE 0.9% 1000ML 1,000 ML IVS ONE (17:41)
[2019-03-21] MEDS ORDERED: PROMETHAZINE HCL INJ 25 MG in SODIUM CHLORIDE 0.9% 50ML 50 ML IVPB ONE (18:05)
[2019-03-21] MEDS ORDERED: PROMETHAZINE HCL INJ 25 MG/ML VIAL ONE (18:09)
[2019-03-21] MEDS ORDERED: SODIUM CHLORIDE 0.9% 50ML 50 ML ONE (18:10)
[2019-03-21] MEDS ORDERED: HYDROcodone 7.5MG/APAP 325MG 1 EA TAB PO ONE (19:15)
[2019-03-21] MEDS ORDERED: SCOPOLAMINE PATCH 1.5MG 1 EA TD ONE (19:15)
[2019-03-21] MEDS ORDERED: MEPERIDINE HCL 50 MG/ML VIAL IV ONE (19:23)
[2019-03-21 19:41] VITALS: BP 114/80; O2SAT 100
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
[2019-03-21 20:03] VITALS: TEMP 97.9
== END 2019-03-21 20:03 | disposition home or self-care (01) ==
LOC: ER 16:58
DX: G43.A1 Cyclical vomiting, in migraine, intractable (principal); M43.6 Torticollis; G24.9 Dystonia, unspecified; R56.9 Unspecified convulsions; J45.909 Unspecified asthma, uncomplicated; F31.9 Bipolar disorder, unspecified; E11.9 Type 2 diabetes mellitus without complications; K21.9 Gastro-esophageal reflux disease without esophagitis; Z79.4 Long term (current) use of insulin; Z79.899 Other long term (current) drug therapy; Z91.013 Allergy to seafood; Z90.49 Acquired absence of other specified parts of digestive tract; Z87.891 Personal history of nicotine dependence
CPT/HCPCS: 36416; 80048; 82948; 83735; A4216; J0515; J2175; J2270; J2550; J7030

== ENCOUNTER 2019-03-23 14:16 | Emergency (ER) | payer MEDICARE, MEDICAID ==
[2019-03-23] MEDS ORDERED: PROMETHAZINE HCL INJ 25 MG in SODIUM CHLORIDE 0.9% 50ML 50 ML IVPB ONE (14:36)
[2019-03-23] MEDS ORDERED: MORPHINE SULFATE INJ 10 MG/ML VIAL IV ONE (14:36)
[2019-03-23] MEDS ORDERED: SODIUM CHLORIDE 0.9% 1000ML 1,000 ML IVS ONE (14:36)
[2019-03-23] MEDS ORDERED: BENZTROPINE MESYLATE INJ 2 MG/2 ML AMP IV ONE (14:36)
[2019-03-23] MEDS ORDERED: INSULIN, REG.(HUMAN) 100 U/ML VIAL IV ONE ×2 (14:39→18:25)
[2019-03-23] MEDS ORDERED: PROMETHAZINE HCL INJ 25 MG/ML VIAL ONE (14:51)
[2019-03-23] MEDS ORDERED: SODIUM CHLORIDE 0.9% 50ML 50 ML ONE (14:52)
[2019-03-23] MEDS ORDERED: fentaNYL CITRATE INJ 50 MCG/ML AMP IV ONE ×2 (14:53→18:10)
[2019-03-23] MEDS ORDERED: diazePAM 5 MG TAB PO ONE (20:22)
[2019-03-23] MEDS ORDERED: INSULIN DETEMIR 100 UNITS/ML PEN SUBCU ONE (21:14)
[2019-03-23] MEDS ORDERED: INSULIN LISPRO 100 UNITS/ML PEN SUBCU ONE (21:14)
--- NOTE | 2019-03-23 21:43 | ED.PDOC ---
History of Present Illness - General Chief Complaint: GI Problem Stated Complaint: nausea and vomiting Time Seen by Provider: 03/23/19 14:34 Source: patient Exam Limitations: no limitations - History of Present Illness Initial Comments: the patient is a 43-year-old female presenting to emergency room secondary to recurrent nausea and vomiting. Also her blood sugars have been escalating. She reports that she did take her Levemir this morning and has taken some fast acting insulin as well. The patient has not thrown up any since her arrival here. She actually appears fairly well hydrated. Blood sugar on fingerstick is initially reading high. After 5 units of IV insulin and does come down into the 300s. The patient does have long-standing nausea and vomiti ng related to her diabetes. The patient also has a very long history of drug seeking behavior. Frequency of her visits here to the emergency room have spiked dramatically since she lost her pain management doctor it is very difficult to tell what actual symptoms are with this patient verses simply drug- seeking behavior. It has been suspected in the past by myself and others that the patient would skip a few doses of her insulin in order to get high blood sugars so that she could be brought in and receive IV pain and nausea medications. this has not been provable however. Her medications of preference are IV Valium, IV Phenergan and IV Dilaudid. symptoms are consistent with previous episodes. No evidence of any new infection. No altered mental status. Vague abdominal discomfort. She has urinated at least 3 times since her arrival here. No urinary symptoms.the patient has also developed torticollis or dystonia with looking to the left over the last month or 2. she reports that she is taking Artane. She has been advised to avoid the Reglan and Compazine. Again how much of this is true and how much of this is for show, I'm uncertain. She does use it as a reason to ask for IV Valium. She does take oral Valium on a daily basis. Timing/Duration: 4-6 hours Severity: moderate Improving Factors: medication Worsening Factors: nothing Associated Symptoms: loss of appetite, malaise, nausea/vomiting Allergies/Adverse Reactions: Allergies Fish Allergy Allergy (Verified 03/23/19 14:19) peanut Allergy (Severe, Uncoded 03/23/19 14:19) Home Medications: Ambulatory Orders Zolpidem Tartrate [Ambien] 10 mg PO BEDTIME 04/09/16 HYDROcodone 10MG/APAP 325MG [[place] 10/325] 1 ea PO QID 08/12/17 Mometasone Furoate [Elocon] 0.1 % TOP DAILY PRN 11/07/17 Epinephrine [Epipen 2-Mikael] 0.3 mg IJ ONCE PRN #1 pack 03/26/18 Promethazine Tab [Phenergan Tablet] 25 mg PO Q6H PRN #15 tab 07/19/18 Buspirone HCl 30 mg PO BID 10/23/18 Pregabalin [Lyrica] 100 mg PO TID 10/23/18 Venlafaxine HCl [Venlafaxine HCl ER] 300 mg PO DAILY 10/23/18 Ondansetron [Ondansetron Odt] 4 mg PO Q8HR PRN #5 tab 12/26/18 Diazepam 5 mg PO TID 02/21/19 Insulin Aspart (with Niacinami [Fiasp Flextouch 100 Unit/ml] 100 unit SC ACHS 02/24/19 Insulin Detemir [Levemir Pen] 32 units SUBCU DAILY@0700 02/24/19 Albuterol Inhaler [Ventolin Hfa Inhaler] 1 puff INH BID 02/25/19 Salmeterol Xinafoate [Serevent Diskus] 50 mcg INH DAILY 02/25/19 Triazolam [Halcion] 0.25 mg PO BEDTIME PRN #3 tab 03/17/19 Review of Systems - Review of Systems Constitutional: States: malaise EENTM: States: no symptoms reported Respiratory: States: no symptoms reported Cardiology: States: no symptoms reported Gastrointestinal/Abdominal: States: abdominal pain, nausea, vomiting Genitourinary: States: no symptoms reported Musculoskeletal: States: no symptoms reported Skin: States: no symptoms reported Neurological: States: see HPI Endocrine: States: no symptoms reported All other Systems: No Change from Baseline Past Medical History (General) - Patient Medical History Hx Seizures: Yes Hx Stroke: No Hx Dementia: No Hx Asthma: No Hx of COPD: No Hx Cardiac Disorders: No Hx Congestive Heart Failure: No Hx Pacemaker: No Hx Hypertension: No Hx Thyroid Disease: No Hx Diabetes: Yes Hx Gastroesophageal Reflux: No Hx Renal Disease: No Hx Cancer: No Hx of HIV: No Hx Hepatitis C: No Hx MRSA: No MRSA Source:: Wound Surgical History: cholecystectomy - Vaccination History Hx Tetanus, Diphtheria Vaccination: Yes Hx Influenza Vaccination: Yes Hx Pneumococcal Vaccination: No Immunizations Up to Date: Yes - Social History Hx Tobacco Use: Yes Hx Chewing Tobacco Use: No Hx Alcohol Use: No Hx Substance Use: No Hx Substance Use Treatment: No Hx Depression: Yes Feels Threatened In Home Enviroment: No Feels Threatened In a Relationship: No Hx Physical Abuse: No Hx Emotional Abuse: No Hx Suspected Abuse: No - Female History Hx Last Menstrual Period: 11/05/11 Patient : No Family Medical History - Family History Mother Family History: No Known Name: April Age (years): 70 Living Status: Still Living Hx Family Asthma: No Hx Family Congestive Heart Failure: No Hx Family Hypertension: No Hx Family Stroke: No Hx Cardiac Disease: No Hx Family Diabetes: No Hx Family Cancer: Yes - skin cancer Hx Family;Other: thyroid problems and seizures Father Family History: No Known Name: Marlon Age (years): 68 Living Status: Still Living Hx Family Asthma: - Sister Hx Family Congestive Heart Failure: No Hx Family Hypertension: Yes Hx Family Stroke: No Hx Cardiac Disease: Yes Hx Family Diabetes: No Age of Onset (years of age): 32 Hx Family Cancer: - Grandmother Lymphoma Physical Exam - Physical Exam General Appearance: Alert, No apparent distress Eye Exam: bilateral normal Ears, Nose, Throat: hearing grossly normal, normal ENT inspection, normal pharynx, other - mucous membranes are well-hydrated. Neck: other - neck is turned to the left. 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, alert, normal mood/affect, oriented x 3 Skin Exam: normal color Comments: Vital Signs - 24 hr 03/23/19 03/23/19 03/23/19 14:23 15:32 16:22 Temperature 97.7 F Pulse Rate [ 87 82 Left Radial] Respiratory 16 18 18 Rate Blood Pressure 129/87 136/106 118/72 [Left Arm] O2 Sat by Pulse 99 96 95 Oximetry 03/23/19 03/23/19 03/23/19 17:00 18:11 19:00 Temperature 97.0 F L Pulse Rate [ 86 80 90 Left Radial] Respiratory 20 20 18 Rate Blood Pressure 112/68 128/72 115/72 [Left Arm] O2 Sat by Pulse 95 96 98 Oximetry Progress - Progress Progress: 03/23/19 21:46 the patient is a 43-year-old female presenting to emergency room secondary to cyclical nausea and vomiting and hyperglycemia related to her insulin-dependent diabetes. Vomiting appears to be well controlled here. Blood sugars have improved significantly, patient will need to continue to follow on a sliding scale. She does need to resume her Levemir in the morning. She did receive doses of both fast acting and long acting insulins here today. No overt evidence of DKA. Due to the patient's very frequent visits we are making a concerted effort to minimize blood draws to prevent difficulty with future IV access when it seems that we can do so safely, as we did today. the patient is adequately hydrated. The patient does need to follow-up with her primary care doctor later this week. ER warnings were given. - Results/Orders Results/Orders: Laboratory Tests 03/23/19 03/23/19 03/23/19 14:39 15:20 15:36 POC Glucose > 400 H* D Random Glucose Cancelled Urine Color Yellow Urine Appearance Clear Urine pH 5.5 Ur Specific [place] <= 1.005 Urine Protein Negative Urine Glucose (UA) 500 H Urine Ketones 40 H Urine Blood Small H Urine Nitrite Negative Urine Bilirubin Negative Urine Urobilinogen 0.2 Ur Leukocyte Esterase Negative Urine RBC 1-3 Urine WBC 0-1 Ur Epithelial Cells 5-10 Amorphous Sediment Trace Urine Bacteria 0 03/23/19 03/23/19 03/23/19 16:29 18:13 20:27 POC Glucose 390 H 393 H 258 H D Random Glucose Urine Color Urine Appearance Urine pH Ur Specific [place] Urine Protein Urine Glucose (UA) Urine Ketones Urine Blood Urine Nitrite Urine Bilirubin Urine Urobilinogen Ur Leukocyte Esterase Urine RBC Urine WBC Ur Epithelial Cells Amorphous Sediment Urine Bacteria 03/23/19 21:13 POC Glucose 303 H Random Glucose Urine Color Urine Appearance Urine pH Ur Specific [place] Urine Protein Urine Glucose (UA) Urine Ketones Urine Blood Urine Nitrite Urine Bilirubin Urine Urobilinogen Ur Leukocyte Esterase Urine RBC Urine WBC Ur Epithelial Cells Amorphous Sediment Urine Bacteria Departure - Departure Clinical Impression: Hyperglycemia Cyclical vomiting with nausea Qualifiers: Vomiting Intractability: intractable Qualified Code(s): G43.A1 - Cyclical vomiting, intractable Disposition: Discharge to Home or Self Care Condition: Fair Departure Forms: ED Discharge - Pt. Copy, Patient Portal Self Enrollment Instructions: DI for Abdominal Pain-Adult Diet: diabetic diet Activity: increase activity as tolerated Referrals: Joby Rangel MD [Primary Care Provider] - 1-2 Days Home Medications: Ambulatory Orders Zolpidem Tartrate [Ambien] 10 mg PO BEDTIME 04/09/16 HYDROcodone 10MG/APAP 325MG [[place] 10325] 1 ea PO QID 08/12/17 Mometasone Furoate [Elocon] 0.1 % TOP DAILY PRN 11/07/17 Epinephrine [Epipen 2-Mikael] 0.3 mg IJ ONCE PRN #1 pack 03/26/18 Promethazine Tab [Phenergan Tablet] 25 mg PO Q6H PRN #15 tab 07/19/18 Buspirone HCl 30 mg PO BID 10/23/18 Pregabalin [Lyrica] 100 mg PO TID 10/23/18 Venlafaxine HCl [Venlafaxine HCl ER] 300 mg PO DAILY 10/23/18 Ondansetron [Ondansetron Odt] 4 mg PO Q8HR PRN #5 tab 12/26/18 Diazepam 5 mg PO TID 02/21/19 Insulin Aspart (with Niacinami [Fiasp Flextouch 100 Unit/ml] 100 unit SC ACHS 02/24/19 Insulin Detemir [Levemir Pen] 32 units SUBCU DAILY@0700 02/24/19 Albuterol Inhaler [Ventolin Hfa Inhaler] 1 puff INH BID 02/25/19 Salmeterol Xinafoate [Serevent Diskus] 50 mcg INH DAILY 02/25/19 Triazolam [Halcion] 0.25 mg PO BEDTIME PRN #3 tab 03/17/19 Additional Instructions: the patient is a 43-year-old female presenting to emergency room secondary to cyclical nausea and vomiting and hyperglycemia related to her insulin-dependent diabetes. Vomiting appears to be well controlled here. Blood sugars have improved significantly, patient will need to continue to follow on a sliding scale. She does need to resume her Levemir in the morning. She did receive doses of both fast acting and long acting insulins here today. No overt evidence of DKA. the patient is adequately hydrated. The patient does need to follow-up with her primary care doctor later this week. the patient also needs to keep follow-up with her neurologist to see if she is going to require Botox injections for the torticollis. She reports that she takes Artane for this, she should continue this for now. Again it has been advised that she avoid Reglan and Compazine. ER warnings were given.
[2019-03-23] MEDS ORDERED: HYDROcodone 7.5MG/APAP 325MG 1 EA TAB PO ONE (21:52)
[2019-03-23 22:14] VITALS: BP 112/75; TEMP 97.2; O2SAT 96
== END 2019-03-23 22:14 | disposition home or self-care (01) ==
LOC: ER 14:16
DX: G43.A1 Cyclical vomiting, in migraine, intractable (principal); E11.65 Type 2 diabetes mellitus with hyperglycemia; R56.9 Unspecified convulsions; F32.9 Major depressive disorder, single episode, unspecified; Z90.49 Acquired absence of other specified parts of digestive tract; Z79.899 Other long term (current) drug therapy; Z87.891 Personal history of nicotine dependence; Z79.4 Long term (current) use of insulin
CPT/HCPCS: 36416; 81001; 82948; 96365; 96372; 96375; 96376; 99284; A4216; J0515; J1815; J2270; J2550; J3010; J7030

== ENCOUNTER → 2019-03-24 | Outpatient (CLI) | payer MEDICARE, MEDICAID | LOC: LAB.O 16:16 | PROVIDERS: ATTEND Nurse Practitioner Family | DX: E11.00 Type 2 diabetes mellitus with hyperosmolarity without nonketotic hyperglycemic-hyperosmolar coma (NKHHC) (principal) ==

== ENCOUNTER 2019-03-25 22:46 | Emergency (ER) | payer MEDICARE, MEDICAID ==
--- NOTE | 2019-03-25 02:15 | ED.PDOC ---
History of Present Illness - General Chief Complaint: GI Problem Stated Complaint: nausea and vomiting for 2 days Time Seen by Provider: 03/25/19 01:12 Source: patient Exam Limitations: no limitations - History of Present Illness Initial Comments: PT REPORTS HX OF GASTROPARESIS SECONDARY TO DM. C/O N/V. TYPICAL EPISODE FOR PT'S GASTROPARESIS. STATES SHE HAS APPT NEXT WEEK WITH GI FOR BOTOX. Severity: moderate Improving Factors: nothing Worsening Factors: nothing Allergies/Adverse Reactions: Allergies Fish Allergy Allergy (Verified 03/23/19 14:19) peanut Allergy (Severe, Uncoded 03/23/19 14:19) Home Medications: Ambulatory Orders Zolpidem Tartrate [Ambien] 10 mg PO BEDTIME 04/09/16 HYDROcodone 10MG/APAP 325MG [[place] 10325] 1 ea PO QID 08/12/17 Mometasone Furoate [Elocon] 0.1 % TOP DAILY PRN 11/07/17 Epinephrine [Epipen 2-Mikael] 0.3 mg IJ ONCE PRN #1 pack 03/26/18 Promethazine Tab [Phenergan Tablet] 25 mg PO Q6H PRN #15 tab 07/19/18 Buspirone HCl 30 mg PO BID 10/23/18 Pregabalin [Lyrica] 100 mg PO TID 10/23/18 Venlafaxine HCl [Venlafaxine HCl ER] 300 mg PO DAILY 10/23/18 Ondansetron [Ondansetron Odt] 4 mg PO Q8HR PRN #5 tab 12/26/18 Diazepam 5 mg PO TID 02/21/19 Insulin Aspart (with Niacinami [Fiasp Flextouch 100 Unit/ml] 100 unit SC ACHS 02/24/19 Insulin Detemir [Levemir Pen] 32 units SUBCU DAILY@0700 02/24/19 Albuterol Inhaler [Ventolin Hfa Inhaler] 1 puff INH BID 02/25/19 Salmeterol Xinafoate [Serevent Diskus] 50 mcg INH DAILY 02/25/19 Triazolam [Halcion] 0.25 mg PO BEDTIME PRN #3 tab 03/17/19 Dicyclomine HCl [Bentyl] 20 mg PO Q6HR PRN #20 tab 03/25/19 Promethazine Supp [Phenergan Suppository] 25 mg MN Q4HR PRN #14 sup 03/25/19 Review of Systems - Review of Systems Constitutional: Denies: chills, fever EENTM: States: no symptoms reported Respiratory: Denies: cough, short of breath Cardiology: Denies: chest pain, palpitations Gastrointestinal/Abdominal: States: abdominal pain, nausea, vomiting Genitourinary: States: no symptoms reported Musculoskeletal: States: no symptoms reported Skin: States: no symptoms reported Neurological: States: no symptoms reported Endocrine: States: no symptoms reported Hematologic/Lymphatic: States: no symptoms reported Past Medical History (General) - Patient Medical History Hx Seizures: Yes Hx Stroke: No Hx Dementia: No Hx Asthma: No Hx of COPD: No Hx Cardiac Disorders: No Hx Congestive Heart Failure: No Hx Pacemaker: No Hx Hypertension: No Hx Thyroid Disease: No Hx Diabetes: Yes Hx Gastroesophageal Reflux: No Hx Renal Disease: No Hx Cancer: No Hx of HIV: No Hx Hepatitis C: No Hx MRSA: No MRSA Source:: Wound Surgical History: cholecystectomy, Hysterectomy - Vaccination History Hx Tetanus, Diphtheria Vaccination: No Hx Influenza Vaccination: No Hx Pneumococcal Vaccination: Yes Immunizations Up to Date: Yes - Social History Hx Tobacco Use: Yes Hx Chewing Tobacco Use: No Hx Alcohol Use: No Hx Substance Use: No Hx Substance Use Treatment: No Hx Depression: Yes Feels Threatened In Home Enviroment: No Feels Threatened In a Relationship: No Hx Physical Abuse: No Hx Emotional Abuse: No Hx Suspected Abuse: No - Activities of Daily Living Hospice Agency (if applicable):: None - Female History Patient is a Female of Child Bearing Age (10 -59 yrs old): No - Hyst Hx Last Menstrual Period: 11/05/11 Patient : No Family Medical History - Family History Mother Family History: No Known Name: April Age (years): 70 Living Status: Still Living Hx Family Asthma: No Hx Family Congestive Heart Failure: No Hx Family Hypertension: No Hx Family Stroke: No Hx Cardiac Disease: No Hx Family Diabetes: No Hx Family Cancer: Yes - skin cancer Hx Family;Other: thyroid problems and seizures Father Family History: No Known Name: Marlon Age (years): 68 Living Status: Still Living Hx Family Asthma: - Sister Hx Family Congestive Heart Failure: No Hx Family Hypertension: Yes Hx Family Stroke: No Hx Cardiac Disease: Yes Hx Family Diabetes: No Age of Onset (years of age): 33 Hx Family Cancer: - Grandmother Lymphoma Physical Exam - Physical Exam General Appearance: Alert, No apparent distress Eye Exam: bilateral normal Ears, Nose, Throat: other - MOIST MM Neck: non-tender, supple Respiratory: lungs clear, normal breath sounds, no respiratory distress Cardiovascular/Chest: no murmur, tachycardia Gastrointestinal/Abdominal: normal bowel sounds, soft, no organomegaly, other - DIFFUSE TTP Back Exam: normal inspection, no CVA tenderness, no vertebral tenderness Extremity: non-tender, normal inspection Neurologic: alert, normal mood/affect Skin Exam: normal color, warm/dry Lymphatic: no adenopathy Progress - Progress Progress: 03/25/19 02:20 PT HAD LAB DONE EARLIER WHICH WAS REVIEWED. WAS NL. 03/25/19 02:22 VS IMPROVED, PT HAS NOT HAD ANY FURTHER VOMITING. IS SLEEPING, C/O ABDOMINAL PAIN B/C SHE HAS NOT BEEN ABLE TO KEEP HER HYDROCODONE DOWN. HAS ZOFRAN AND PHENERGAN AT HOME. WILL GIVE BENTYL AND D/C. SHE HAS ZOFRAN AND PHENERGAN AT [facility]. Departure - Departure Clinical Impression: Gastroparesis, Diabetes 1.5, managed as type 1 Vomiting Qualifiers: Vomiting type: unspecified Vomiting Intractability: non-intractable Nausea presence: with nausea Qualified Code(s): R11.2 - Nausea with vomiting, unspecified Time of Disposition: 02:25 Disposition: Discharge to Home or Self Care Condition: Good Departure Forms: ED Discharge - Pt. Copy, Patient Portal Self Enrollment Instructions: Gastroparesis (Delayed Gastric Emptying) Referrals: JUSTINO MARQUEZ IV [employer]INE [Primary Care Provider] - 1-2 Weeks Prescriptions: Promethazine Supp [Phenergan Suppository] 25 mg MN Q4HR PRN #14 sup PRN Reason: Vomiting Dicyclomine HCl [Bentyl] 20 mg PO Q6HR PRN #20 tab PRN Reason: Abdominal Cramping Home Medications: Ambulatory Orders Zolpidem Tartrate [Ambien] 10 mg PO BEDTIME 04/09/16 HYDROcodone 10MG/APAP 325MG [[place] 10/325] 1 ea PO QID 08/12/17 Mometasone Furoate [Elocon] 0.1 % TOP DAILY PRN 11/07/17 Epinephrine [Epipen 2-Mikael] 0.3 mg IJ ONCE PRN #1 pack 03/26/18 Promethazine Tab [Phenergan Tablet] 25 mg PO Q6H PRN #15 tab 07/19/18 Buspirone HCl 30 mg PO BID 10/23/18 Pregabalin [Lyrica] 100 mg PO TID 10/23/18 Venlafaxine HCl [Venlafaxine HCl ER] 300 mg PO DAILY 10/23/18 Ondansetron [Ondansetron Odt] 4 mg PO Q8HR PRN #5 tab 12/26/18 Diazepam 5 mg PO TID 02/21/19 Insulin Aspart (with Niacinami [Fiasp Flextouch 100 Unit/ml] 100 unit SC ACHS 02/24/19 Insulin Detemir [Levemir Pen] 32 units SUBCU DAILY@0700 02/24/19 Albuterol Inhaler [Ventolin Hfa Inhaler] 1 puff INH BID 02/25/19 Salmeterol Xinafoate [Serevent Diskus] 50 mcg INH DAILY 02/25/19 Triazolam [Halcion] 0.25 mg PO BEDTIME PRN #3 tab 03/17/19 Dicyclomine HCl [Bentyl] 20 mg PO Q6HR PRN #20 tab 03/25/19 Promethazine Supp [Phenergan Suppository] 25 mg MN Q4HR PRN #14 sup 03/25/19
[~2019-03-25 22:46] MED LIST changes: +DICYCLOMINE HCL INJ 20 MG/2 ML AMP IM ONE; -INSULIN LISPRO 100 UNITS/ML PEN SUBCU ONE; -INSULIN, REG.(HUMAN) 100 U/ML VIAL IV ONE; -KETOROLAC TROMETHAMINE INJ 30 MG/ML VIAL IV ONE; +PROMETHAZINE HCL INJ 12.5 MG in SODIUM CHLORIDE 0.9% 50ML 50 ML IVPB ONE; -PROMETHAZINE HCL INJ 25 MG in SODIUM CHLORIDE 0.9% 50ML 50 ML IVPB ONE; -SODIUM CHLORIDE 0.9% 50ML 50 ML ONE
[2019-03-25 23:05] VITALS: TEMP 98.2
[2019-03-25] MEDS ORDERED: KETOROLAC TROMETHAMINE INJ 60 MG/2 ML VIAL IM ONE ×2 (23:22→23:24)
[2019-03-25] MEDS ORDERED: PROMETHAZINE HCL INJ 25 MG/ML VIAL IM PRN (23:23)
[2019-03-25] MEDS ORDERED: BENZTROPINE MESYLATE INJ 2 MG/2 ML AMP ONE (23:24)
[2019-03-25] MEDS ORDERED: PROMETHAZINE HCL INJ 25 MG/ML VIAL ONE (23:24)
--- NOTE | 2019-03-25 23:28 | ED.PDOC ---
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 AND HAS NARCOTIC SEEKING BEHAVIOUR PRESENTS WITH MULTIPLE COMPLAINTS MOSTLY PAIN OF SOME KIND SHE IS KNOWN TO ABUSE NARCOTICS - History of Present Illness Abdominal Pain Onset Location: LUQ, generalized abdomen Quality: intermittent, stabbing Timing/Duration: 1 week Improving Factors: nothing Worsening Factors: nothing Associated Symptoms: heartburn, nausea/vomiting Review of Systems - Review of Systems Constitutional: States: weakness EENTM: States: no symptoms reported Respiratory: States: no symptoms reported Gastrointestinal/Abdominal: States: see HPI, nausea, vomiting Genitourinary: States: no symptoms reported Musculoskeletal: States: no symptoms reported Skin: States: no symptoms reported Neurological: States: no symptoms reported Endocrine: States: no symptoms reported Hematologic/Lymphatic: States: no symptoms reported Past Medical History (General) - Patient Medical History Hx Seizures: Yes Hx Stroke: No Hx Dementia: No Hx Asthma: No Hx of COPD: No Hx Cardiac Disorders: No Hx Congestive Heart Failure: No Hx Pacemaker: No Hx Hypertension: No Hx Thyroid Disease: No Hx Diabetes: Yes Hx Gastroesophageal Reflux: No Hx Renal Disease: No Hx Cancer: No Hx of HIV: No Hx Hepatitis C: No Hx MRSA: No MRSA Source:: Wound Surgical History: appendectomy, cholecystectomy - Vaccination History Hx Tetanus, Diphtheria Vaccination: No Hx Influenza Vaccination: No Hx Pneumococcal Vaccination: Yes - Social History Hx Tobacco Use: Yes Hx Chewing Tobacco Use: No Hx Alcohol Use: No Hx Substance Use: No Hx Substance Use Treatment: No Hx Depression: Yes Hx Physical Abuse: No Hx Emotional Abuse: No Hx Suspected Abuse: No - Female History Hx Last Menstrual Period: 11/05/11 Patient : No Family Medical History - Family History Mother Family History: No Known Name: April Age (years): 70 Living Status: Still Living Hx Family Asthma: No Hx Family Congestive Heart Failure: No Hx Family Hypertension: No Hx Family Stroke: No Hx Cardiac Disease: No Hx Family Diabetes: No Hx Family Cancer: Yes - skin cancer Hx Family;Other: thyroid problems and seizures Father Family History: No Known Name: Marlon Age (years): 68 Living Status: Still Living Hx Family Asthma: - Sister Hx Family Congestive Heart Failure: No Hx Family Hypertension: Yes Hx Family Stroke: No Hx Cardiac Disease: Yes Hx Family Diabetes: No Age of Onset (years of age): 32 Hx Family Cancer: - Grandmother Lymphoma Physical Exam - Physical Exam General Appearance: Alert, Comfortable Eyes, Ears, Nose, Throat Exam: PERRL/EOMI, normal ENT inspection, TMs normal, pharynx normal Neck: non-tender, full range of motion, supple Respiratory: chest non-tender, lungs clear, normal breath sounds, no respiratory distress, no accessory muscle use Cardiovascular/Chest: normal peripheral pulses, regular rate, rhythm, no edema, no gallop, no JVD Gastrointestinal/Abdominal: normal bowel sounds, non tender, soft, no organomegaly, no pulsatile mass 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 Copy, Patient Portal Self Enrollment Referrals: JUSTINO MARQUEZ IV CIG[employer]INGER [Primary Care Provider] - 1-2 Weeks Home Medications: Ambulatory Orders Zolpidem Tartrate [Ambien] 10 mg PO BEDTIME 04/09/16 HYDROcodone 10MG/APAP 325MG [[place] 10/325] 1 ea PO QID 08/12/17 Mometasone Furoate [Elocon] 0.1 % TOP DAILY PRN 11/07/17 Epinephrine [Epipen 2-Mikael] 0.3 mg IJ ONCE PRN #1 pack 03/26/18 Promethazine Tab [Phenergan Tablet] 25 mg PO Q6H PRN #15 tab 07/19/18 Buspirone HCl 30 mg PO BID 10/23/18 Pregabalin [Lyrica] 100 mg PO TID 10/23/18 Venlafaxine HCl [Venlafaxine HCl ER] 300 mg PO DAILY 10/23/18 Ondansetron [Ondansetron Odt] 4 mg PO Q8HR PRN #5 tab 12/26/18 Diazepam 5 mg PO TID 02/21/19 Insulin Aspart (with Niacinami [Fiasp Flextouch 100 Unit/ml] 100 unit SC ACHS 02/24/19 Insulin Detemir [Levemir Pen] 32 units SUBCU DAILY@0700 02/24/19 Albuterol Inhaler [Ventolin Hfa Inhaler] 1 puff INH BID 02/25/19 Salmeterol Xinafoate [Serevent Diskus] 50 mcg INH DAILY 02/25/19 Triazolam [Halcion] 0.25 mg PO BEDTIME PRN #3 tab 03/17/19 Dicyclomine HCl [Bentyl] 20 mg PO Q6HR PRN #20 tab 03/25/19 Promethazine Supp [Phenergan Suppository] 25 mg [place] Q4HR PRN #14 sup 03/25/19
[2019-03-26 00:42] VITALS: BP 137/88; O2SAT 97
[2019-03-26] MEDS ORDERED: BENZTROPINE MESYLATE INJ 2 MG/2 ML AMP IM SCH (09:00)
== END 2019-03-26 00:57 | disposition home or self-care (01) ==
LOC: ER 22:46
DX: E11.43 Type 2 diabetes mellitus with diabetic autonomic (poly)neuropathy (principal); K31.84 Gastroparesis; M62.48 Contracture of muscle, other site; F32.9 Major depressive disorder, single episode, unspecified; R56.9 Unspecified convulsions; Z87.891 Personal history of nicotine dependence; Z90.49 Acquired absence of other specified parts of digestive tract; Z79.4 Long term (current) use of insulin; Z79.899 Other long term (current) drug therapy
CPT/HCPCS: 80307; 81001; 82948; J0515; J1885; J2550

== ENCOUNTER 2019-04-09 18:40 | Emergency (ER) | payer MEDICARE, MEDICAID ==
[2019-04-09 19:11] VITALS: O2SAT 98
[2019-04-09] MEDS ORDERED: KETOROLAC TROMETHAMINE INJ 30 MG/ML VIAL IV ONE (19:25)
[2019-04-09] MEDS ORDERED: METHOCARBAMOL 750 MG TAB PO ONE (19:26)
[2019-04-09] MEDS ORDERED: METHOCARBAMOL 750 MG TAB ONE (19:31)
[2019-04-09] MEDS ORDERED: KETOROLAC TROMETHAMINE INJ 30 MG/ML VIAL ONE (19:31)
[2019-04-09] MEDS: SODIUM CHLORIDE 0.9% (FLUSH) 10 ML SYG IV PRN ×2 (20:00→21:04)
--- NOTE | 2019-04-09 20:39 | ED.PDOC ---
History of Present Illness - General Chief Complaint: Fever Stated Complaint: fever, nausea, neck pain Time Seen by Provider: 04/09/19 18:54 - History of Present Illness Initial Comments: 43 year old presents to the ED for neck pain, fever, abdominal pain. She has a past medical history of Type 1 diabetes, diabetic gastroparesis, COPD, peripheral neuropathy, fibromyalgia, chronic low back pain, anxiety and depression. Multiple ED visits with concerns for drug seeking behavior/opiate abuse. She states that she had botox last week for her gastroparesis. She complains of labile blood sugars for the past week and also complains of three days of vomiting and diarrhea. Also complains of neck spasm/torticollis which has been ongoing for several months. No other symptoms at this time. Allergies/Adverse Reactions: Allergies Fish Allergy Allergy (Verified 03/25/19 23:12) peanut Allergy (Severe, Uncoded 03/25/19 23:12) Home Medications: Ambulatory Orders Zolpidem Tartrate [Ambien] 10 mg PO BEDTIME 04/09/16 HYDROcodone 10MG/APAP 325MG [[place] 10/325] 1 ea PO QID 08/12/17 Mometasone Furoate [Elocon] 0.1 % TOP DAILY PRN 11/07/17 Epinephrine [Epipen 2-Mikael] 0.3 mg IJ ONCE PRN #1 pack 03/26/18 Promethazine Tab [Phenergan Tablet] 25 mg PO Q6H PRN #15 tab 07/19/18 Buspirone HCl 30 mg PO BID 10/23/18 Pregabalin [Lyrica] 100 mg PO TID 10/23/18 Venlafaxine HCl [Venlafaxine HCl ER] 300 mg PO DAILY 10/23/18 Ondansetron [Ondansetron Odt] 4 mg PO Q8HR PRN #5 tab 12/26/18 Diazepam 5 mg PO TID 02/21/19 Insulin Aspart (with Niacinami [Fiasp Flextouch 100 Unit/ml] 100 unit SC ACHS 02/24/19 Insulin Detemir [Levemir Pen] 32 units SUBCU DAILY@0700 02/24/19 Albuterol Inhaler [Ventolin Hfa Inhaler] 1 puff INH BID 02/25/19 Salmeterol Xinafoate [Serevent Diskus] 50 mcg INH DAILY 02/25/19 Triazolam [Halcion] 0.25 mg PO BEDTIME PRN #3 tab 03/17/19 Dicyclomine HCl [Bentyl] 20 mg PO Q6HR PRN #20 tab 03/25/19 Promethazine Supp [Phenergan Suppository] 25 mg [place] Q4HR PRN #14 sup 03/25/19 Review of Systems - Review of Systems Constitutional: States: malaise EENTM: States: other - neck spasm Respiratory: Denies: cough, short of breath Cardiology: Denies: chest pain, palpitations Gastrointestinal/Abdominal: States: abdominal pain, nausea, vomiting Genitourinary: Denies: dysuria, frequency Musculoskeletal: States: no symptoms reported Skin: Denies: lesions, rash Neurological: States: anxiety. Denies: numbness, paresthesia, tremors, weakness Endocrine: States: increased urine, other - labile blood glucose All other Systems: Reviewed and Negative Past Medical History (General) - Patient Medical History Hx Seizures: Yes Hx Stroke: No Hx Dementia: No Hx Asthma: No Hx of COPD: No Hx Cardiac Disorders: No Hx Congestive Heart Failure: No Hx Pacemaker: No Hx Hypertension: No Hx Thyroid Disease: No Hx Diabetes: Yes Hx Gastroesophageal Reflux: No Hx Renal Disease: No Hx Cancer: No Hx of HIV: No Hx Hepatitis C: No Hx MRSA: No MRSA Source:: Wound - Vaccination History Hx Tetanus, Diphtheria Vaccination: No Hx Influenza Vaccination: No Hx Pneumococcal Vaccination: Yes - Social History Hx Tobacco Use: Yes Hx Chewing Tobacco Use: No Hx Alcohol Use: No Hx Substance Use: No Hx Substance Use Treatment: No Hx Depression: Yes Hx Physical Abuse: No Hx Emotional Abuse: No Hx Suspected Abuse: No - Female History Hx Last Menstrual Period: 11/05/11 Patient : No Family Medical History - Family History Mother Family History: No Known Name: April Age (years): 70 Living Status: Still Living Hx Family Asthma: No Hx Family Congestive Heart Failure: No Hx Family Hypertension: No Hx Family Stroke: No Hx Cardiac Disease: No Hx Family Diabetes: No Hx Family Cancer: Yes - skin cancer Hx Family;Other: thyroid problems and seizures Father Family History: No Known Name: Marlon Age (years): 68 Living Status: Still Living Hx Family Asthma: - Sister Hx Family Congestive Heart Failure: No Hx Family Hypertension: Yes Hx Family Stroke: No Hx Cardiac Disease: Yes Hx Family Diabetes: No Age of Onset (years of age): 32 Hx Family Cancer: - Grandmother Lymphoma Physical Exam - Physical Exam General Appearance: Anxious, Restless, Well Developed, Well Nourished Ears, Nose, Throat: normal ENT inspection Neck: non-tender, limited range of motion, other - left torticollis Respiratory: chest non-tender, lungs clear, normal breath sounds, no respiratory distress Cardiovascular/Chest: normal peripheral pulses, regular rate, rhythm, no edema Gastrointestinal/Abdominal: normal bowel sounds, tenderness - diffuse, no peritonitis Neurologic: no motor/sensory deficits, alert, oriented x 3 Skin Exam: normal color, warm/dry Progress - Progress Progress: 04/09/19 19:25 IV Care:Saline Lock per Protoc QSHIFT Laboratory Results - last 24 hr 04/09/19 04/09/19 04/09/19 19:45 19:45 19:45 WBC 7.5 RBC 5.11 Hgb 14.7 Hct 42.6 MCV 83.4 MCH 28.7 MCHC 34.4 RDW 13.4 Plt Count 319 MPV 8.5 Absolute Neuts (auto) 4.70 Absolute Lymphs (auto) 2.20 Absolute Monos (auto) 0.30 Absolute Eos (auto) 0.20 Absolute Basos (auto) 0.10 Neutrophils % 63.0 Lymphocytes % 29.4 Monocytes % 4.6 Eosinophils % 2.0 Basophils % 1.0 Sodium 135 Potassium 3.7 Chloride 101 Carbon Dioxide 21 Anion Gap 16.7 BUN 8 Creatinine 0.54 L BUN/Creatinine Ratio 14.8 Random Glucose 343 H Serum Osmolality 282.0 Calcium 9.2 Total Bilirubin 0.6 Direct Bilirubin < 0.1 Indirect Bilirubin 0.5 AST 29 ALT 41 Alkaline Phosphatase 130 H Serum Total Protein 7.6 Albumin 4.4 Lipase 36 Serum HCG, Qual Urine Color Urine Appearance Urine pH Ur Specific Clubb Urine Protein Urine Glucose (UA) Urine Ketones Urine Blood Urine Nitrite Urine Bilirubin Urine Urobilinogen Ur Leukocyte Esterase Urine RBC Urine WBC Ur Epithelial Cells Urine Bacteria 04/09/19 04/09/19 19:45 20:14 WBC RBC Hgb Hct MCV MCH MCHC RDW Plt Count MPV Absolute Neuts (auto) Absolute Lymphs (auto) Absolute Monos (auto) Absolute Eos (auto) Absolute Basos (auto) Neutrophils % Lymphocytes % Monocytes % Eosinophils % Basophils % Sodium Potassium Chloride Carbon Dioxide Anion Gap BUN Creatinine BUN/Creatinine Ratio Random Glucose Serum Osmolality Calcium Total Bilirubin Direct Bilirubin Indirect Bilirubin AST ALT Alkaline Phosphatase Serum Total Protein Albumin Lipase Serum HCG, Qual Negative Urine Color Yellow Urine Appearance Clear Urine pH 6.0 Ur Specific Clubb <= 1.005 Urine Protein Negative Urine Glucose (UA) 500 H Urine Ketones 15 H Urine Blood Moderate H Urine Nitrite Negative Urine Bilirubin Negative Urine Urobilinogen 0.2 Ur Leukocyte Esterase Negative Urine RBC 5-10 H Urine WBC 0 Ur Epithelial Cells 1-3 Urine Bacteria 0 04/09/19 20:39 [place] narcotic database reviewed, the patient has filled 300 hydrocodone 10mg tabs in the last two months. 04/09/19 21:27 Patient reassessed, discussed above workup. No vomiting while in the ED and she appears well hydrated. She has now chronic torticollis for several weeks and has arranged for orthopedic follow up. She has hyperglycemia without gap or evidence of DKA. Discussed importance of compliance with her insulin regimen and sliding scale. She will take insulin when she gets home. 04/09/19 21:32 Discussed hyperglycemia, patient refused insulin in ED. She prefers to take her home insulin. 04/10/19 03:01 [facility] Patient presents to the ED complaining of nausea/vomiting, fever, torticollis. She actually appears well hydrated and has been tolerating PO in the Emergency Department. She does not have any fever, leukocytosis, or findings concerning for acute infection. She has left torticollis which is unchanged over the past several months. Workup otherwise as above, no acute findings. There is hyperglycemia without DKA. She refused insulin in ED and will take home insulin. Discussed importance of compliance with home medications and outpatient follow up with PCP. Departure - Departure Clinical Impression: Hyperglycemia due to type 1 diabetes mellitus, Torticollis Chronic gastritis Qualifiers: Gastritis type: unspecified gastritis Gastritis bleeding: without bleeding Qualified Code(s): K29.50 - Unspecified chronic gastritis without bleeding Time of Disposition: 21:33 Disposition: Discharge to Home or Self Care Condition: Fair Departure Forms: ED Discharge - Pt. Copy, Patient Portal Self Enrollment Instructions: Torticollis, Adult, Torticollis (DC), Neck Stretches Diet: resume usual diet Activity: increase activity as tolerated Referrals: JIMMY,JUSTINO L IV, [employer] [Primary Care Provider] - 1-2 Weeks Home Medications: Ambulatory Orders Zolpidem Tartrate [Ambien] 10 mg PO BEDTIME 04/09/16 HYDROcodone 10MG/APAP 325MG [[place] ] 1 ea PO QID 08/12/17 Mometasone Furoate [Elocon] 0.1 % TOP DAILY PRN 11/07/17 Epinephrine [Epipen 2-Mikael] 0.3 mg IJ ONCE PRN #1 pack 03/26/18 Promethazine Tab [Phenergan Tablet] 25 mg PO Q6H PRN #15 tab 07/19/18 Buspirone HCl 30 mg PO BID 10/23/18 Pregabalin [Lyrica] 100 mg PO TID 10/23/18 Venlafaxine HCl [Venlafaxine HCl ER] 300 mg PO DAILY 10/23/18 Ondansetron [Ondansetron Odt] 4 mg PO Q8HR PRN #5 tab 12/26/18 Diazepam 5 mg PO TID 02/21/19 Insulin Aspart (with Niacinami [Fiasp Flextouch 100 Unit/ml] 100 unit SC ACHS 02/24/19 Insulin Detemir [Levemir Pen] 32 units SUBCU DAILY@0700 02/24/19 Albuterol Inhaler [Ventolin Hfa Inhaler] 1 puff INH BID 02/25/19 Salmeterol Xinafoate [Serevent Diskus] 50 mcg INH DAILY 02/25/19 Triazolam [Halcion] 0.25 mg PO BEDTIME PRN #3 tab 03/17/19 Dicyclomine HCl [Bentyl] 20 mg PO Q6HR PRN #20 tab 03/25/19 Promethazine Supp [Phenergan Suppository] 25 mg [place] Q4HR PRN #14 sup 03/25/19 Comments: Ernesto Ocasio MD Emergency Medicine Physician Number [id number]
[2019-04-09 21:44] VITALS: BP 130/85; TEMP 97.9
== END 2019-04-09 21:46 | disposition home or self-care (01) ==
LOC: ER 18:40
DX: K29.50 Unspecified chronic gastritis without bleeding (principal); E10.65 Type 1 diabetes mellitus with hyperglycemia; M43.6 Torticollis; F32.9 Major depressive disorder, single episode, unspecified; R56.9 Unspecified convulsions; F41.9 Anxiety disorder, unspecified; J44.9 Chronic obstructive pulmonary disease, unspecified; M79.7 Fibromyalgia; Z79.4 Long term (current) use of insulin; Z79.899 Other long term (current) drug therapy; Z91.013 Allergy to seafood; Z87.891 Personal history of nicotine dependence
CPT/HCPCS: 36415; 80048; 80076; 81001; 83690; 84703; 85025; J1885

== ENCOUNTER 2019-04-19 18:24 | Emergency (ER) | payer MEDICARE, MEDICAID ==
[2019-04-19 18:39] VITALS: TEMP 98.7
[2019-04-19] MEDS ORDERED: SUCRALFATE 1 GM/10 ML 1 GM UD PO ONE (18:52)
[2019-04-19] MEDS ORDERED: SODIUM CHLORIDE 0.9% 1000ML 1,000 ML IVS ONE (18:52)
[2019-04-19] MEDS ORDERED: PROMETHAZINE HCL INJ 25 MG in SODIUM CHLORIDE 0.9% 50ML 50 ML IVPB ONE (18:52)
[2019-04-19] MEDS ORDERED: SODIUM CHLORIDE 0.9% 50ML 50 ML ONE (19:13)
[2019-04-19] MEDS ORDERED: PROMETHAZINE HCL INJ 25 MG/ML VIAL ONE (19:13)
[2019-04-19] MEDS ORDERED: INSULIN, REG.(HUMAN) 100 U/ML VIAL IV ONE (20:09)
[2019-04-19] MEDS ORDERED: BUTORPHANOL TARTRATE 2 MG/ML VIAL IV ONE ×2 (20:09→22:16)
[2019-04-19 21:38] VITALS: BP 102/64; O2SAT 96
[2019-04-19] MEDS ORDERED: CETIRIZINE HCL 10 MG TAB PO ONE (21:50)
--- NOTE | 2019-04-19 21:52 | ED.PDOC ---
History of Present Illness - General Chief Complaint: General Stated Complaint: ABDOMINAL PAIN Time Seen by Provider: 04/19/19 18:49 Source: patient Exam Limitations: no limitations - History of Present Illness Initial Comments: The patient is a 43-year-old female presenting to the emergency room secondary to what appears to be mild atopic dermatitis to her forearms and face. She is uncertain what she came into contact with to trigger this. It is been going on about a half a day. No shortness of breath. No palpitations. There is some mild pruritus. No sore throat. She is having some abdominal pain and blood sugars have been a little bit elevated. She has thrown up 3 times according to her. Timing/Duration: 4-6 hours Severity: moderate Improving Factors: nothing Worsening Factors: nothing Associated Symptoms: loss of appetite, malaise, nausea/vomiting Allergies/Adverse Reactions: Allergies Fish Allergy Allergy (Verified 03/25/19 23:12) peanut Allergy (Severe, Uncoded 03/25/19 23:12) Home Medications: Ambulatory Orders Zolpidem Tartrate [Ambien] 10 mg PO BEDTIME 04/09/16 HYDROcodone 10MG/APAP 325MG [[place] 10/325] 1 ea PO QID 08/12/17 Mometasone Furoate [Elocon] 0.1 % TOP DAILY PRN 11/07/17 Epinephrine [Epipen 2-Mikael] 0.3 mg IJ ONCE PRN #1 pack 03/26/18 Promethazine Tab [Phenergan Tablet] 25 mg PO Q6H PRN #15 tab 07/19/18 Buspirone HCl 30 mg PO BID 10/23/18 Pregabalin [Lyrica] 100 mg PO TID 10/23/18 Venlafaxine HCl [Venlafaxine HCl ER] 300 mg PO DAILY 10/23/18 Ondansetron [Ondansetron Odt] 4 mg PO Q8HR PRN #5 tab 12/26/18 Diazepam 5 mg PO TID 02/21/19 Insulin Aspart (with Niacinami [Fiasp Flextouch 100 Unit/ml] 100 unit SC ACHS 02/24/19 Insulin Detemir [Levemir Pen] 32 units SUBCU DAILY@0700 02/24/19 Albuterol Inhaler [Ventolin Hfa Inhaler] 1 puff INH BID 02/25/19 Salmeterol Xinafoate [Serevent Diskus] 50 mcg INH DAILY 02/25/19 Triazolam [Halcion] 0.25 mg PO BEDTIME PRN #3 tab 03/17/19 Dicyclomine HCl [Bentyl] 20 mg PO Q6HR PRN #20 tab 03/25/19 Promethazine Supp [Phenergan Suppository] 25 mg [place] Q4HR PRN #14 sup 03/25/19 Review of Systems - Review of Systems Constitutional: States: malaise EENTM: States: no symptoms reported Respiratory: States: no symptoms reported Cardiology: States: no symptoms reported Gastrointestinal/Abdominal: States: nausea, vomiting Genitourinary: States: no symptoms reported Musculoskeletal: States: no symptoms reported Skin: States: see HPI Neurological: States: no symptoms reported Endocrine: States: no symptoms reported All other Systems: No Change from Baseline Past Medical History (General) - Patient Medical History Hx Seizures: Yes Hx Stroke: No Hx Dementia: No Hx Asthma: No Hx of COPD: No Hx Cardiac Disorders: No Hx Congestive Heart Failure: No Hx Pacemaker: No Hx Hypertension: No Hx Thyroid Disease: No Hx Diabetes: Yes Hx Gastroesophageal Reflux: No Hx Renal Disease: No Hx Cancer: No Hx of HIV: No Hx Hepatitis C: No Hx MRSA: No MRSA Source:: Wound - Vaccination History Hx Tetanus, Diphtheria Vaccination: No Hx Influenza Vaccination: No Hx Pneumococcal Vaccination: Yes - Social History Hx Tobacco Use: Yes Hx Chewing Tobacco Use: No Hx Alcohol Use: No Hx Substance Use: No Hx Substance Use Treatment: No Hx Depression: Yes Hx Physical Abuse: No Hx Emotional Abuse: No Hx Suspected Abuse: No - Female History Hx Last Menstrual Period: 11/05/11 Patient : No Family Medical History - Family History Mother Family History: No Known Name: April Age (years): 70 Living Status: Still Living Hx Family Asthma: No Hx Family Congestive Heart Failure: No Hx Family Hypertension: No Hx Family Stroke: No Hx Cardiac Disease: No Hx Family Diabetes: No Hx Family Cancer: Yes - skin cancer Hx Family;Other: thyroid problems and seizures Father Family History: No Known Name: Marlon Age (years): 68 Living Status: Still Living Hx Family Asthma: - Sister Hx Family Congestive Heart Failure: No Hx Family Hypertension: Yes Hx Family Stroke: No Hx Cardiac Disease: Yes Hx Family Diabetes: No Age of Onset (years of age): 32 Hx Family Cancer: - Grandmother Lymphoma Physical Exam - Physical Exam General Appearance: Alert, Anxious Eye Exam: bilateral normal Ears, Nose, Throat: hearing grossly normal, normal ENT inspection, normal pha rynx Neck: full range of motion, supple Respiratory: lungs clear, normal breath sounds, no respiratory distress, no accessory muscle use Cardiovascular/Chest: normal peripheral pulses, no edema, tachycardia Peripheral Pulses: radial,right: 2+, radial,left: 2+ Gastrointestinal/Abdominal: soft, other - mild epigastric discomfort palpation. 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 Comments: Vital Signs - 24 hr 04/19/19 04/19/19 04/19/19 18:34 19:34 21:37 Temperature 98.7 F 98.7 F Pulse Rate [ 124 H 112 H 108 H left brachial] Respiratory 24 16 16 Rate Blood Pressure 123/86 102/60 102/64 [left brachial] O2 Sat by Pulse 98 95 96 Oximetry Progress - Progress Progress: 04/19/19 21:54 the patient is a 43-year-old female well-known to the emergency room presenting secondary to an episode of her cyclical nausea and vomiting. Vomiting is controlled. She received a liter of IV fluids. She does have signi ficant hyperglycemia and has received IV insulin and the blood sugar has improved down to 196. No evidence of DKA. She also has some contact dermatitis versus atopic dermatitis. She can use [id number] Cetaphil or Eucerin cream to the area several times a day. Steroids cannot be used on this patient secondary to glucose issues. She can take [id number] Zyrtec twice daily for the next few days. She needs to keep herself well-hydrated. Follow-up with primary care doctor in the next few days. ER warnings were given. 04/19/19 21:56 lana anderson [id number] 04/19/19 22:08 - Results/Orders Results/Orders: Laboratory Tests 04/19/19 04/19/19 18:52 18:52 WBC 6.9 RBC 5.07 Hgb 14.1 Hct 42.8 MCV 84.5 MCH 27.9 MCHC 33.0 RDW 13.7 Plt Count 286 MPV 8.8 Absolute Neuts (auto) 4.20 Absolute Lymphs (auto) 2.20 Absolute Monos (auto) 0.30 Absolute Eos (auto) 0.20 Absolute Basos (auto) 0.00 Neutrophils % 60.3 Lymphocytes % 32.0 Monocytes % 5.0 Eosinophils % 2.4 Basophils % 0.3 Sodium 137 Potassium 4.5 Chloride 100 L Carbon Dioxide 24 Anion Gap 17.5 BUN 16 Creatinine 0.67 BUN/Creatinine Ratio 23.9 H Random Glucose 396 H Serum Osmolality 291.5 Calcium 9.3 Magnesium 2.0 Total Bilirubin 0.2 AST 29 ALT 33 Alkaline Phosphatase 154 H Serum Total Protein 7.4 Albumin 4.0 Globulin 3.4 Albumin/Globulin Ratio 1.2 Serum Ketones Negative Departure - Departure Clinical Impression: Hyperglycemia due to type 1 diabetes mellitus, Mild dehydration Cyclical vomiting with nausea Qualifiers: Vomiting Intractability: non-intractable Qualified Code(s): G43.A0 - Cyclical vomiting, not intractable Atopic dermatitis Qualifiers: Atopic dermatitis type: other Qualified Code(s): L20.89 - Other atopic dermatitis Disposition: Discharge to Home or Self Care Condition: Fair Departure Forms: ED Discharge - Pt. Copy, Patient Portal Self Enrollment Diet: bland diet, diabetic diet Activity: increase activity as tolerated Referrals: JUSTINO MARQUEZ IV, RETURNED CASE INSPECTOR [Primary Care Provider] - 1-2 Weeks Home Medications: Ambulatory Orders Zolpidem Tartrate [Ambien] 10 mg PO BEDTIME 04/09/16 HYDROcodone 10MG/APAP 325MG [[place] 10/325] 1 ea PO QID 08/12/17 Mometasone Furoate [Elocon] 0.1 % TOP DAILY PRN 11/07/17 Epinephrine [Epipen 2-Mikael] 0.3 mg IJ ONCE PRN #1 pack 03/26/18 Promethazine Tab [Phenergan Tablet] 25 mg PO Q6H PRN #15 tab 07/19/18 Buspirone HCl 30 mg PO BID 10/23/18 Pregabalin [Lyrica] 100 mg PO TID 10/23/18 Venlafaxine HCl [Venlafaxine HCl ER] 300 mg PO DAILY 10/23/18 Ondansetron [Ondansetron Odt] 4 mg PO Q8HR PRN #5 tab 12/26/18 Diazepam 5 mg PO TID 02/21/19 Insulin Aspart (with Niacinami [Fiasp Flextouch 100 Unit/ml] 100 unit SC ACHS 02/24/19 Insulin Detemir [Levemir Pen] 32 units SUBCU DAILY@0700 02/24/19 Albuterol Inhaler [Ventolin Hfa Inhaler] 1 puff INH BID 02/25/19 Salmeterol Xinafoate [Serevent Diskus] 50 mcg INH DAILY 02/25/19 Triazolam [Halcion] 0.25 mg PO BEDTIME PRN #3 tab 03/17/19 Dicyclomine HCl [Bentyl] 20 mg PO Q6HR PRN #20 tab 03/25/19 Promethazine Supp [Phenergan Suppository] 25 mg [place] Q4HR PRN #14 sup 03/25/19 Additional Instructions: the patient is a 43-year-old female well-known to the emergency room presenting secondary to an episode of her cyclical nausea and vomiting. Vomiting is controlled. She received a liter of IV fluids. She does have significant hyperglycemia and has received IV insulin. No evidence of DKA. She also has some contact dermatitis versus atopic dermatitis. She can use [id number] Cetaphil or Eucerin cream to the area several times a day. Steroids cannot be used on this patient secondary to glucose issues. She can take [id number] Zyrtec twice daily for the next few days. She needs to keep herself well-hydrated. Follow-up with primary care doctor in the next few days. ER warnings were given.
== END 2019-04-19 22:27 | disposition home or self-care (01) ==
LOC: ER 18:24
DX: G43.A0 Cyclical vomiting, in migraine, not intractable (principal); R11.2 Nausea with vomiting, unspecified; E86.0 Dehydration; E10.65 Type 1 diabetes mellitus with hyperglycemia; L20.89 Other atopic dermatitis; F32.9 Major depressive disorder, single episode, unspecified; R56.9 Unspecified convulsions; Z87.891 Personal history of nicotine dependence; Z79.4 Long term (current) use of insulin; Z79.899 Other long term (current) drug therapy; Z91.013 Allergy to seafood
CPT/HCPCS: 80053; 82009; 82948; 83735; 85025; A4216; J0595; J2550; J7030

== ENCOUNTER 2019-04-20 19:43 | Emergency (ER) | payer MEDICARE, MEDICAID ==
[2019-04-20 20:06] VITALS: TEMP 98.4
[2019-04-20] MEDS ORDERED: KETOROLAC TROMETHAMINE INJ 60 MG/2 ML VIAL IM ONE (20:43)
--- NOTE | 2019-04-20 20:44 | ED.PDOC ---
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 Pt states she might have slightly tapped her head but denies gross head trauma, no LOC. No pain or injury elsewhere. Denies weakness, numbness. Allergies/Adverse Reactions: Allergies Fish Allergy Allergy (Verified 04/20/19 20:06) peanut Allergy (Severe, Uncoded 04/20/19 20:06) Home Medications: Ambulatory Orders Zolpidem Tartrate [Ambien] 10 mg PO BEDTIME 04/09/16 HYDROcodone 10MG/APAP 325MG [[place] 10/325] 1 ea PO QID 08/12/17 Mometasone Furoate [Elocon] 0.1 % TOP DAILY PRN 11/07/17 Epinephrine [Epipen 2-Mikael] 0.3 mg IJ ONCE PRN #1 pack 03/26/18 Promethazine Tab [Phenergan Tablet] 25 mg PO Q6H PRN #15 tab 07/19/18 Buspirone HCl 30 mg PO BID 10/23/18 Pregabalin [Lyrica] 100 mg PO TID 10/23/18 Venlafaxine HCl [Venlafaxine HCl ER] 300 mg PO DAILY 10/23/18 Ondansetron [Ondansetron Odt] 4 mg PO Q8HR PRN #5 tab 12/26/18 Diazepam 5 mg PO TID 02/21/19 Insulin Aspart (with Niacinami [Fiasp Flextouch 100 Unit/ml] 100 unit SC ACHS 02/24/19 Insulin Detemir [Levemir Pen] 32 units SUBCU DAILY@0700 02/24/19 Albuterol Inhaler [Ventolin Hfa Inhaler] 1 puff INH BID 02/25/19 Salmeterol Xinafoate [Serevent Diskus] 50 mcg INH DAILY 02/25/19 Triazolam [Halcion] 0.25 mg PO BEDTIME PRN #3 tab 03/17/19 Dicyclomine HCl [Bentyl] 20 mg PO Q6HR PRN #20 tab 03/25/19 Promethazine Supp [Phenergan Suppository] 25 mg [place] Q4HR PRN #14 sup 03/25/19 Review of Systems - Review of Systems Musculoskeletal: States: joint pain. Denies: back pain, joint swelling Skin: Denies: change in color, lesions Neurological: Denies: numbness, weakness Past Medical History (General) - Patient Medical History Hx Seizures: Yes Hx Stroke: No Hx Dementia: No Hx Asthma: No Hx of COPD: No Hx Cardiac Disorders: No Hx Congestive Heart Failure: No Hx Pacemaker: No Hx Hypertension: No Hx Thyroid Disease: No Hx Diabetes: Yes Hx Gastroesophageal Reflux: No Hx Renal Disease: No Hx Cancer: No Hx of HIV: No Hx Hepatitis C: No Hx MRSA: No MRSA Source:: Wound Surgical History: appendectomy, cholecystectomy, Hysterectomy - Vaccination History Hx Tetanus, Diphtheria Vaccination: No Hx Influenza Vaccination: No Hx Pneumococcal Vaccination: Yes - Social History Hx Tobacco Use: Yes Hx Chewing Tobacco Use: No Hx Alcohol Use: No Hx Substance Use: No Hx Substance Use Treatment: No Hx Depression: Yes Hx Physical Abuse: No Hx Emotional Abuse: No Hx Suspected Abuse: No - Female History Hx Last Menstrual Period: 11/05/11 Patient : No Family Medical History - Family History Mother Family History: No Known Name: April Age (years): 70 Living Status: Still Living Hx Family Asthma: No Hx Family Congestive Heart Failure: No Hx Family Hypertension: No Hx Family Stroke: No Hx Cardiac Disease: No Hx Family Diabetes: No Hx Family Cancer: Yes - skin cancer Hx Family;Other: thyroid problems and seizures Father Family History: No Known Name: Marlon Age (years): 68 Living Status: Still Living Hx Family Asthma: - Sister Hx Family Congestive Heart Failure: No Hx Family Hypertension: Yes Hx Family Stroke: No Hx Cardiac Disease: Yes Hx Family Diabetes: No Age of Onset (years of age): 32 Hx Family Cancer: - Grandmother Lymphoma Physical Exam - Physical Exam General Appearance: Alert, Frail Neck: other - Torticollis with deviation to the L Back Exam: no vertebral tenderness Extremity: other - Minimal decreased ROM to L knee, R ankle 2/2 pain. Minimal ecchymosis to top of R foot. No swelling, erythema, deformity. 2+ pulses, NVID, cap refill <2sec. Neurologic: no motor/sensory deficits, alert Skin Exam: normal color, warm/dry Progress - Progress Progress: 04/20/19 21:16 I have explained and reviewed all results with the pt. Initially tachycardic but improved, previous visits reviewed, pt is always tachycardic. Offered 3D boot vs diana wrap, pt prefers 3D boot. I explained that emergent conditions may arise and to return to the ER for new, worsening, or any persistent conditions. I've explained the importance of f/u for recheck. All questions and concerns addressed at this time. Pt understands and agrees with plan. Pt well appearing, NAD, is stable for discharge. Ingrid Hodge MD Emergency Medicine Physician Billing Number [id number] 04/20/19 21:36 - Results/Orders Results/Orders: Left Knee: IMPRESSION: - No acute fracture seen. Internal derangement cannot be ruled out. Thank you for allowing us to participate in the care of this patient. Electronically signed by: Neri Sanz MD 04/20/2019 8:43 PM CDT Right Ankle: IMPRESSION: - No acute fracture seen. Thank you for allowing us to participate in the care of this patient. Electronically signed by: Neri Sanz MD 04/20/2019 8:40 PM CDT Right Foot: IMPRESSION: - No acute fracture seen. Thank you for allowing us to participate in the care of this patient. Electronically signed by: Neri Sanz MD 04/20/2019 8:42 PM CDT Departure - Departure Clinical Impression: Fall Qualifiers: Encounter type: initial encounter Qualified Code(s): W19.XXXA - Unspecified fall, initial encounter Contusion, foot Qualifiers: Encounter type: initial encounter Laterality: right Qualified Code(s): S90.31XA - Contusion of right foot, initial encounter Left knee pain Qualifiers: Chronicity: acute Qualified Code(s): M25.562 - Pain in left knee Right ankle pain Qualifiers: Chronicity: acute Qualified Code(s): M25.571 - Pain in right ankle and joints of right foot Time of Disposition: 21:14 Disposition: Discharge to Home or Self Care Health Concerns: Condition: stable Departure Forms: ED Discharge - Pt. Copy, Patient Portal Self Enrollment Instructions: DI for Leg Pain Referrals: JUSTINO MARQUEZ IV, MANAGER BASKETBALL [Primary Care Provider] - 1-5 Days Home Medications: Ambulatory Orders Zolpidem Tartrate [Ambien] 10 mg PO BEDTIME 04/09/16 HYDROcodone 10MG/APAP 325MG [[place] 10/325] 1 ea PO QID 08/12/17 Mometasone Furoate [Elocon] 0.1 % TOP DAILY PRN 11/07/17 Epinephrine [Epipen 2-Mikael] 0.3 mg IJ ONCE PRN #1 pack 03/26/18 Promethazine Tab [Phenergan Tablet] 25 mg PO Q6H PRN #15 tab 07/19/18 Buspirone HCl 30 mg PO BID 10/23/18 Pregabalin [Lyrica] 100 mg PO TID 10/23/18 Venlafaxine HCl [Venlafaxine HCl ER] 300 mg PO DAILY 10/23/18 Ondansetron [Ondansetron Odt] 4 mg PO Q8HR PRN #5 tab 12/26/18 Diazepam 5 mg PO TID 02/21/19 Insulin Aspart (with Niacinami [Fiasp Flextouch 100 Unit/ml] 100 unit [place] ACHS 02/24/19 Insulin Detemir [Levemir Pen] 32 units SUBCU DAILY@0700 02/24/19 Albuterol Inhaler [Ventolin Hfa Inhaler] 1 puff INH BID 02/25/19 Salmeterol Xinafoate [Serevent Diskus] 50 mcg INH DAILY 02/25/19 Triazolam [Halcion] 0.25 mg PO BEDTIME PRN #3 tab 03/17/19 Dicyclomine HCl [Bentyl] 20 mg PO Q6HR PRN #20 tab 03/25/19 Promethazine Supp [Phenergan Suppository] 25 mg [place] Q4HR PRN #14 sup 03/25/19 Additional Instructions: Follow up: [facility] As needed, if symptoms worsen
[2019-04-20 21:33] VITALS: BP 106/78; O2SAT 100
== END 2019-04-20 21:34 | disposition home or self-care (01) ==
LOC: ER 19:43
DX: S90.31XA Contusion of right foot, initial encounter (principal); M25.562 Pain in left knee; M25.571 Pain in right ankle and joints of right foot; M43.6 Torticollis; F32.9 Major depressive disorder, single episode, unspecified; E11.9 Type 2 diabetes mellitus without complications; R56.9 Unspecified convulsions; Z87.891 Personal history of nicotine dependence; Z79.899 Other long term (current) drug therapy; Z79.4 Long term (current) use of insulin; Z91.013 Allergy to seafood; W10.9XXA Fall (on) (from) unspecified stairs and steps, initial encounter; Y92.9 Unspecified place or not applicable
CPT/HCPCS: 73562; 73610; 73630; J1885

== ENCOUNTER 2019-04-25 16:06 | Emergency (ER) | payer MEDICARE, MEDICAID ==
[2019-04-25] MEDS ORDERED: ACETAMINOPHEN 500 MG TAB PO ONE (17:11)
[2019-04-25] MEDS ORDERED: SODIUM CHLORIDE 0.9% 1000ML 1,000 ML IVS ONE (17:11)
--- NOTE | 2019-04-25 18:04 | ED.PDOC ---
History of Present Illness - General Chief Complaint: GI Problem Stated Complaint: vomiting,diarrhea,abd pain Time Seen by Provider: 04/25/19 16:53 - History of Present Illness Initial Comments: 43 yo F PMH Type I DM and Gastroparesis presents to ED c/o L flank pain and abdominal pain with nausea vomiting non bloody and diarrhea blood tinged x 1 week. Denies fever admits chills nausea vomiting diarrhea denies chest pain sob diaphoresis. Symptoms disturb appetite and rest no urinary complaints. Admits smoking denies drinking admits FH HTN denies FH DM has PMD and pain management doctor for follow up no other c/o today. Review of Systems - Review of Systems Constitutional: States: chills EENTM: States: see HPI Respiratory: States: see HPI Cardiology: States: see HPI Gastrointestinal/Abdominal: States: abdominal pain, diarrhea, nausea, vomiting Genitourinary: States: no symptoms reported Musculoskeletal: States: see HPI Skin: States: see HPI Endocrine: States: no symptoms reported Hematologic/Lymphatic: States: no symptoms reported All other Systems: Reviewed and Negative Past Medical History (General) - Patient Medical History Hx Seizures: Yes Hx Stroke: No Hx Dementia: No Hx Asthma: No Hx of COPD: No Hx Cardiac Disorders: No Hx Congestive Heart Failure: No Hx Pacemaker: No Hx Hypertension: No Hx Thyroid Disease: No Hx Diabetes: Yes Hx Gastroesophageal Reflux: No Hx Renal Disease: No Hx Cancer: No Hx of HIV: No Hx Hepatitis C: No Hx MRSA: No MRSA Source:: Wound Surgical History: appendectomy, cholecystectomy, Hysterectomy - Vaccination History Hx Tetanus, Diphtheria Vaccination: No Hx Influenza Vaccination: No - 2018 Hx Pneumococcal Vaccination: No - Social History Hx Tobacco Use: Yes Hx Chewing Tobacco Use: No Hx Alcohol Use: No Hx Substance Use: No Hx Substance Use Treatment: No Hx Depression: Yes Hx Physical Abuse: No Hx Emotional Abuse: No Hx Suspected Abuse: No - Female History Hx Last Menstrual Period: 11/05/11 Patient : No Family Medical History - Family History Mother Family History: No Known Name: April Age (years): 70 Living Status: Still Living Hx Family Asthma: No Hx Family Congestive Heart Failure: No Hx Family Hypertension: No Hx Family Stroke: No Hx Cardiac Disease: No Hx Family Diabetes: No Hx Family Cancer: Yes - skin cancer Hx Family;Other: thyroid problems and seizures Father Family History: No Known Name: Marlon Age (years): 68 Living Status: Still Living Hx Family Asthma: - Sister Hx Family Congestive Heart Failure: No Hx Family Hypertension: Yes Hx Family Stroke: No Hx Cardiac Disease: Yes Hx Family Diabetes: No Age of Onset (years of age): 32 Hx Family Cancer: - Grandmother Lymphoma Physical Exam - Physical Exam General Appearance: No apparent distress Eyes, Ears, Nose, Throat Exam: normal ENT inspection Neck: non-tender, full range of motion Respiratory: normal breath sounds, no respiratory distress Cardiovascular/Chest: regular rate, rhythm Gastrointestinal/Abdominal: soft, tenderness - tender LLQ and L Flank Back Exam: CVA tenderness (L) Extremity: non-tender, normal inspection Neurologic: no motor/sensory deficits Skin Exam: other - eczema to face Lymphatic: no adenopathy Progress - Progress Progress: 04/25/19 18:06 A/P-Abdominal Pain, Nausea Vomiting, Flank Pain 1.iv fluids tylenol cbc cmp lipase trop urinalysis morphine zofran ct abdomen pelvis reassess 04/25/19 19:59 Laboratory Tests 04/25/19 04/25/19 04/25/19 16:38 17:06 17:06 WBC 9.2 RBC 5.38 Hgb 14.6 Hct 44.8 MCV 83.4 MCH 27.1 MCHC 32.6 L RDW 13.7 Plt Count 263 MPV 8.6 Absolute Neuts (auto) 6.90 H Absolute Lymphs (auto) 1.70 Absolute Monos (auto) 0.40 Absolute Eos (auto) 0.10 Absolute Basos (auto) 0.10 Neutrophils % 74.7 Lymphocytes % 18.7 L Monocytes % 4.4 Eosinophils % 1.4 Basophils % 0.8 Sodium Potassium Chloride Carbon Dioxide Anion Gap BUN Creatinine BUN/Creatinine Ratio Random Glucose Serum Osmolality Calcium Total Bilirubin AST ALT Alkaline Phosphatase Troponin I Serum Total Protein Albumin Globulin Albumin/Globulin Ratio Lipase 25 Urine Color Yellow Urine Appearance Clear Urine pH 5.5 Ur Specific [place] 1.020 Urine Protein Negative Urine Glucose (UA) >=1000 H Urine Ketones Negative Urine Blood Moderate H Urine Nitrite Negative Urine Bilirubin Negative Urine Urobilinogen 0.2 Ur Leukocyte Esterase Negative Urine RBC 3-5 H Urine WBC 0 Ur Epithelial Cells 5-10 Urine Bacteria 0 04/25/19 04/25/19 04/25/19 17:06 17:15 19:00 WBC RBC Hgb Hct MCV MCH MCHC RDW Plt Count MPV Absolute Neuts (auto) Absolute Lymphs (auto) Absolute Monos (auto) Absolute Eos (auto) Absolute Basos (auto) Neutrophils % Lymphocytes % Monocytes % Eosinophils % Basophils % Sodium 132 L Potassium 4.7 Chloride 99 L Carbon Dioxide 20 L Anion Gap 17.7 BUN 14 Creatinine 0.58 L BUN/Creatinine Ratio 24.1 H Random Glucose 343 H Serum Osmolality 278.6 Calcium 9.5 Total Bilirubin 0.6 AST 63 H ALT 125 H Alkaline Phosphatase 188 H Troponin I < 0.02 < 0.02 Serum Total Protein 8.3 H Albumin 4.5 Globulin 3.8 H Albumin/Globulin Ratio 1.2 Lipase Urine Color Urine Appearance Urine pH Ur Specific [place] Urine Protein Urine Glucose (UA) Urine Ketones Urine Blood Urine Nitrite Urine Bilirubin Urine Urobilinogen Ur Leukocyte Esterase Urine RBC Urine WBC Ur Epithelial Cells Urine Bacteria 04/25/19 20:05 EXAM DESCRIPTION: Abdoment/Pelvis w/o Contrast CLINICAL HISTORY: 43 years Female flank pain COMPARISON: None TECHNIQUE: Images were obtained in axial, sagittal, and coronal planes. No oral or intravenous contrast was administered. This exam was performed according to our departmental dose-optimization program which includes use of Automated Exposure Control, adjustment of the mA and/or kV according to patient size and/or use of iterative reconstruction technique. FINDINGS: No obstructing renal calcifications bilaterally. No hydronephrosis bilaterally. Unremarkable bladder. No perinephric stranding bilaterally. Surgical clips adjacent to cecum likely related to prior appendectomy. No bowel obstruction, perforation, or inflammation. No abnormality involving the liver, spleen, pancreas, or adrenal glands bilaterally. Prior cholecystectomy. Mild calcification abdominal aorta with no dilatation seen. No adenopathy or abnormal fluid collections seen. Suspected prior hysterectomy. No acute osseous abnormality. No abnormality lower lungs bilaterally. IMPRESSION: No acute intra-abdominal abnormality. Electronically signed by: Cely Xie MD 04/25/2019 6:12 PM CDT EXAM DESCRIPTION: Chest,1 View CLINICAL HISTORY: 43 years Female pain COMPARISON: February 01, 2019. TECHNIQUE: AP view of the chest was obtained. FINDINGS: Cardiac size is within normal limits. Central vessels are not increased. No infiltrates or effusions seen. No consolidation. No pneumo thorax. IMPRESSION: No active disease. Electronically signed by: Cely Xie MD 04/25/2019 6:08 PM CDT Pt. has hematuria negative CT and CXR labs remarkable for hyperglycemia no gap normal bicarb no ketones in urine so not DKA. Pt. denies being on period. Likely discharge after toradol follow up pcp and pain management tylenol zofran 04/25/19 20:10 Boyfriend now at bedside Departure - Departure Clinical Impression: Flank pain Abdominal pain Qualifiers: Abdominal location: generalized Qualified Code(s): R10.84 - Generalized abdominal pain Nausea & vomiting Qualifiers: Vomiting type: unspecified Vomiting Intractability: non-intractable Qualified Code(s): R11.2 - Nausea with vomiting, unspecified Hematuria Qualifiers: Hematuria type: unspecified type Qualified Code(s): R31.9 - Hematuria, unspecified Time of Disposition: 20:12 Disposition: Discharge to Home or Self Care Condition: Good Departure Forms: ED Discharge - Pt. Copy, Patient Portal Self Enrollment Instructions: DI for Abdominal Pain-Adult, DI for Gastritis Referrals: JUSTINO MARQUEZ IV, TRAIN CONTROLLER [Primary Care Provider] - 1-2 Days Prescriptions: Acetaminophen [Tylenol] 650 mg PO Q6H PRN #30 tab PRN Reason: Pain Ondansetron Tab [Zofran Tab] 4 mg PO Q8H PRN #15 tab PRN Reason: Nausea Home Medications: Ambulatory Orders Zolpidem Tartrate [Ambien] 10 mg PO BEDTIME 04/09/16 HYDROcodone 10MG/APAP 325MG [[place] 10/325] 1 ea PO QID 08/12/17 Mometasone Furoate [Elocon] 0.1 % TOP DAILY PRN 11/07/17 Epinephrine [Epipen 2-Mikael] 0.3 mg IJ ONCE PRN #1 pack 03/26/18 Promethazine Tab [Phenergan Tablet] 25 mg PO Q6H PRN #15 tab 07/19/18 Buspirone HCl 30 mg PO BID 10/23/18 Pregabalin [Lyrica] 100 mg PO TID 10/23/18 Venlafaxine HCl [Venlafaxine HCl ER] 300 mg PO DAILY 10/23/18 Ondansetron [Ondansetron Odt] 4 mg PO Q8HR PRN #5 tab 05/24/19 Diazepam 5 mg PO TID 02/21/19 Insulin Aspart (with Niacinami [Fiasp Flextouch 100 Unit/ml] 100 unit SC ACHS 02/24/19 Insulin Detemir [Levemir Pen] 32 units SUBCU DAILY@0700 02/24/19 Albuterol Inhaler [Ventolin Hfa Inhaler] 1 puff INH BID 02/25/19 Salmeterol Xinafoate [Serevent Diskus] 50 mcg INH DAILY 02/25/19 Triazolam [Halcion] 0.25 mg PO BEDTIME PRN #3 tab 03/17/19 Dicyclomine HCl [Bentyl] 20 mg PO Q6HR PRN #20 tab 03/25/19 Promethazine Supp [Phenergan Suppository] [address] Q4HR PRN #14 sup 03/25/19 Acetaminophen [Tylenol] 650 mg PO Q6H PRN #30 tab 04/25/19 Ondansetron Tab [Zofran Tab] 4 mg PO Q8H PRN #15 tab 04/25/19
--- NOTE | 2019-04-25 18:10 | RAD ---
EXAM DESCRIPTION: Chest,1 View CLINICAL HISTORY: 43 years Female pain COMPARISON: February 01, 2019. TECHNIQUE: AP view of the chest was obtained. FINDINGS: Cardiac size is within normal limits. Central vessels are not increased. No infiltrates or effusions seen. No consolidation. No pneumo thorax. IMPRESSION: No active disease. Electronically signed by: Cely Xie MD 04/25/2019 6:08 PM CDT
--- NOTE | 2019-04-25 18:13 | CT ---
EXAM DESCRIPTION: Abdoment/Pelvis w/o Contrast CLINICAL HISTORY: 43 years Female flank pain COMPARISON: None TECHNIQUE: Images were obtained in axial, sagittal, and coronal planes. No oral or intravenous contrast was administered. This exam was performed according to our departmental dose-optimization program which includes use of Automated Exposure Control, adjustment of the mA and/or kV according to patient size and/or use of iterative reconstruction technique. FINDINGS: No obstructing renal calcifications bilaterally. No hydronephrosis bilaterally. Unremarkable bladder. No perinephric stranding bilaterally. Surgical clips adjacent to cecum likely related to prior appendectomy. No bowel obstruction, perforation, or inflammation. No abnormality involving the liver, spleen, pancreas, or adrenal glands bilaterally. Prior cholecystectomy. Mild calcification abdominal aorta with no dilatation seen. No adenopathy or abnormal fluid collections seen. Suspected prior hysterectomy. No acute osseous abnormality. No abnormality lower lungs bilaterally. IMPRESSION: No acute intra-abdominal abnormality. Electronically signed by: Cely Xie MD 04/25/2019 6:12 PM CDT
[2019-04-25 18:57] VITALS: TEMP 96.7
[2019-04-25] MEDS ORDERED: ONDANSETRON INJ 4 MG/2 ML VIAL IV ONE (19:36)
[2019-04-25] MEDS ORDERED: KETOROLAC TROMETHAMINE INJ 30 MG/ML VIAL IV ONE (20:02)
[2019-04-25 20:10] VITALS: BP 110/59; O2SAT 96
== END 2019-04-25 20:17 | disposition home or self-care (01) ==
LOC: ER 16:06
DX: R11.2 Nausea with vomiting, unspecified (principal); R10.84 Generalized abdominal pain; R31.9 Hematuria, unspecified; R56.9 Unspecified convulsions; E10.9 Type 1 diabetes mellitus without complications; F32.9 Major depressive disorder, single episode, unspecified; F17.200 Nicotine dependence, unspecified, uncomplicated; Z90.49 Acquired absence of other specified parts of digestive tract
CPT/HCPCS: 36415; 71045; 74176; 80053; 81001; 83690; 84484; 85025; 93005; J1885; J2405; J7030

== ENCOUNTER 2019-05-11 15:19 | Emergency (ER) | payer MEDICARE, MEDICAID ==
[2019-05-11 15:42] VITALS: TEMP 98.1
[2019-05-11] MEDS ORDERED: ACETAMINOPHEN 325 MG TAB PO ONE (15:52)
--- NOTE | 2019-05-11 16:03 | ED.PDOC ---
History of Present Illness - General Chief Complaint: General Time Seen by Provider: 05/11/19 15:41 Source: patient Exam Limitations: no limitations - History of Present Illness Initial Comments: the patient is a 43-year-old female well-known to the emergency room presenting to the emergency room secondary to some cough and congestion for the last couple of days. She has had a mild sore throat. No shortness of breath. She has had a couple of episodes of nausea and vomiting but that is a longer standing problems related to her diabetes. The patient is also presenting for a blood draw secondary to one of her glucose check needles poking an officer in the finger while he was searching her purse approximately 3 days ago. She is here for titers to check for hepatitis or HIV so that he can get prophylactic treatment if needed. Timing/Duration: other - 3 days Severity: mild Improving Factors: nothing Worsening Factors: nothing Associated Symptoms: cough, fever/chills, malaise Allergies/Adverse Reactions: Allergies Fish Allergy Allergy (Verified 04/20/19 20:06) peanut Allergy (Severe, Uncoded 04/20/19 20:06) Home Medications: Ambulatory Orders Zolpidem Tartrate [Ambien] 10 mg PO BEDTIME 04/09/16 HYDROcodone 10MG/APAP 325MG [[place] 10/325] 1 ea PO QID 08/12/17 Mometasone Furoate [Elocon] 0.1 % TOP DAILY PRN 11/07/17 Epinephrine [Epipen 2-Mikael] 0.3 mg IJ ONCE PRN #1 pack 03/26/18 Promethazine Tab [Phenergan Tablet] 25 mg PO Q6H PRN #15 tab 07/19/18 Buspirone HCl 30 mg PO BID 10/23/18 Pregabalin [Lyrica] 100 mg PO TID 10/23/18 Venlafaxine HCl [Venlafaxine HCl ER] 300 mg PO DAILY 10/23/18 Ondansetron [Ondansetron Odt] 4 mg PO Q8HR PRN #5 tab 12/26/18 Diazepam 5 mg PO TID 02/21/19 Insulin Aspart (with Niacinami [Fiasp Flextouch 100 Unit/ml] 100 unit SC ACHS 02/24/19 Insulin Detemir [Levemir Pen] 32 units SUBCU DAILY@0700 02/24/19 Albuterol Inhaler [Ventolin Hfa Inhaler] 1 puff INH BID 02/25/19 Salmeterol Xinafoate [Serevent Diskus] 50 mcg INH DAILY 02/25/19 Triazolam [Halcion] 0.25 mg PO BEDTIME PRN #3 tab 03/17/19 Dicyclomine HCl [Bentyl] 20 mg PO Q6HR PRN #20 tab 03/25/19 Promethazine Supp [Phenergan Suppository] 25 mg CA Q4HR PRN #14 sup 03/25/19 Acetaminophen [Tylenol] 650 mg PO Q6H PRN #30 tab 04/25/19 Ondansetron Tab [Zofran Tab] 4 mg PO Q8H PRN #15 tab 04/25/19 Review of Systems - Review of Systems Constitutional: States: fever - low-grade, malaise EENTM: States: nose congestion, throat pain Respiratory: States: cough Cardiology: States: no symptoms reported Gastrointestinal/Abdominal: States: nausea, vomiting Genitourinary: States: no symptoms reported Musculoskeletal: States: no symptoms reported - generalized body aches Skin: States: no symptoms reported Neurological: States: no symptoms reported Endocrine: States: no symptoms reported All other Systems: No Change from Baseline Past Medical History (General) - Patient Medical History Hx Seizures: Yes Hx Stroke: No Hx Dementia: No Hx Asthma: No Hx of COPD: No Hx Cardiac Disorders: No Hx Congestive Heart Failure: No Hx Pacemaker: No Hx Hypertension: No Hx Thyroid Disease: No Hx Diabetes: Yes Hx Gastroesophageal Reflux: No Hx Renal Disease: No Hx Cancer: No Hx of HIV: No Hx Hepatitis C: No Hx MRSA: No MRSA Source:: Wound - Vaccination History Hx Tetanus, Diphtheria Vaccination: No Hx Influenza Vaccination: No - 2018 Hx Pneumococcal Vaccination: No - Social History Hx Tobacco Use: Yes Hx Chewing Tobacco Use: No Hx Alcohol Use: No Hx Substance Use: No Hx Substance Use Treatment: No Hx Depression: Yes Hx Physical Abuse: No Hx Emotional Abuse: No Hx Suspected Abuse: No - Female History Hx Last Menstrual Period: 11/05/11 Patient : No Family Medical History - Family History Mother Family History: No Known Name: April Age (years): 70 Living Status: Still Living Hx Family Asthma: No Hx Family Congestive Heart Failure: No Hx Family Hypertension: No Hx Family Stroke: No Hx Cardiac Disease: No Hx Family Diabetes: No Hx Family Cancer: Yes - skin cancer Hx Family;Other: thyroid problems and seizures Father Family History: No Known Name: Marlon Age (years): 68 Living Status: Still Living Hx Family Asthma: - Sister Hx Family Congestive Heart Failure: No Hx Family Hypertension: Yes Hx Family Stroke: No Hx Cardiac Disease: Yes Hx Family Diabetes: No Age of Onset (years of age): 32 Hx Family Cancer: - Grandmother Lymphoma Physical Exam - Physical Exam General Appearance: Alert, Comfortable, No apparent distress Eye Exam: bilateral normal Ears, Nose, Throat: hearing grossly normal, nasal congestion, pharyngeal erythema - mild Neck: full range of motion, supple Respiratory: lungs clear, normal breath sounds, no respiratory distress, no accessory muscle use Cardiovascular/Chest: normal peripheral pulses, regular rate, rhythm, no edema Peripheral Pulses: radial,right: 2+, radial,left: 2+, dorsalis pedis,right: 2+, dorsalis pedis,left: 2+ Gastrointestinal/Abdominal: non tender, soft Rectal Exam: deferred Back Exam: no CVA tenderness, no vertebral tenderness Extremity: non-tender, normal inspection, no pedal edema, normal capillary refill Neurologic: metalizing supervisor II-XII nml as tested, alert, normal mood/affect, oriented x 3 Skin Exam: normal color Comments: Vital Signs - 24 hr 05/11/19 15:20 Temperature 98.1 F Pulse Rate [ 98 H Right Brachial] Respiratory 20 Rate Blood Pressure 133/86 [Right Arm] O2 Sat by Pulse 96 Oximetry Progress - Progress Progress: 05/11/19 16:03 the patient presents secondary to symptoms of a common cold. She needs to keep herself well-hydrated. Tylenol can be used to control fever. Mucinex can be used to thin out secretions. Zyrtec can be taken to reduce secretions. She needs to follow her blood sugars closely. Additionally the patient did get her blood drawn to screen for hepatitis or HIV as another patient did accidentally g ets stuck with one of her glucose checking needles several days ago. Her help with this is appreciated. She will be informed of the results once they are back. Keep follow-up with primary care doctor. 05/11/19 16:06 lana anderson [id number] Departure - Departure Clinical Impression: Common cold, Patient exposure to blood Disposition: Discharge to Home or Self Care Condition: Fair Departure Forms: ED Discharge - Pt. Copy, Patient Portal Self Enrollment Diet: diabetic diet Activity: increase activity as tolerated Referrals: JUSTINO MARQUEZ IV, SALES AND EVENTS COORDINATOR [Primary Care Provider] - 1-2 Weeks Home Medications: Ambulatory Orders Zolpidem Tartrate [Ambien] 10 mg PO BEDTIME 04/09/16 HYDROcodone 10MG/APAP 325MG [[place] 10/325] 1 ea PO QID 08/12/17 Mometasone Furoate [Elocon] 0.1 % TOP DAILY PRN 11/07/17 Epinephrine [Epipen 2-Mikael] 0.3 mg IJ ONCE PRN #1 pack 03/26/18 Promethazine Tab [Phenergan Tablet] 25 mg PO Q6H PRN #15 tab 07/19/18 Buspirone HCl 30 mg PO BID 10/23/18 Pregabalin [Lyrica] 100 mg PO TID 10/23/18 Venlafaxine HCl [Venlafaxine HCl ER] 300 mg PO DAILY 10/23/18 Ondansetron [Ondansetron Odt] 4 mg PO Q8HR PRN #5 tab 12/26/18 Diazepam 5 mg PO TID 02/21/19 Insulin Aspart (with Niacinami [Fiasp Flextouch 100 Unit/ml] 100 unit SC ACHS 02/24/19 Insulin Detemir [Levemir Pen] 32 units SUBCU DAILY@0700 02/24/19 Albuterol Inhaler [Ventolin Hfa Inhaler] 1 puff INH BID 02/25/19 Salmeterol Xinafoate [Serevent Diskus] 50 mcg INH DAILY 02/25/19 Triazolam [Halcion] 0.25 mg PO BEDTIME PRN #3 tab 03/17/19 Dicyclomine HCl [Bentyl] 20 mg PO Q6HR PRN #20 tab 03/25/19 Promethazine Supp [Phenergan Suppository] 25 mg CA Q4HR PRN #14 sup 03/25/19 Acetaminophen [Tylenol] 650 mg PO Q6H PRN #30 tab 04/25/19 Ondansetron Tab [Zofran Tab] 4 mg PO Q8H PRN #15 tab 04/25/19 Additional Instructions: the patient presents secondary to symptoms of a common cold. She needs to keep herself well-hydrated. Tylenol can be used to control fever. Mucinex can be used to thin out secretions. Zyrtec can be taken to reduce secretions. She needs to follow her blood sugars closely. Additionally the patient did get her blood drawn to screen for hepatitis or HIV as another patient did accidentally gets stuck with one of her glucose checking needles several days ago. Her help with this is appreciated. She will be informed of the results once they are back. Keep follow-up with primary care doctor.
[2019-05-11 17:04] VITALS: BP 117/84; O2SAT 100
== END 2019-05-11 16:50 | disposition home or self-care (01) ==
LOC: ER 15:19
DX: J00 Acute nasopharyngitis [common cold] (principal); F32.9 Major depressive disorder, single episode, unspecified; E11.9 Type 2 diabetes mellitus without complications; R56.9 Unspecified convulsions; Z77.21 Contact with and (suspected) exposure to potentially hazardous body fluids; Z87.891 Personal history of nicotine dependence; Z79.4 Long term (current) use of insulin; Z79.899 Other long term (current) drug therapy; Z91.013 Allergy to seafood

== ENCOUNTER 2019-05-25 00:53 | Emergency (ER) | payer MEDICARE, MEDICAID ==
[2019-05-25] MEDS ORDERED: BENZTROPINE MESYLATE INJ 2 MG/2 ML AMP IV ONE ×2 (01:28→03:25)
[2019-05-25] MEDS ORDERED: SODIUM CHLORIDE 0.9% 1000ML 1,000 ML IVS ONE (01:28)
[2019-05-25] MEDS ORDERED: BACLOFEN 10 MG TAB PO ONE (01:31)
[2019-05-25] MEDS ORDERED: MAGNESIUM SULFATE PREMIX 2GM 2 GM in PREMIX BAG 1 BAG IVPB ONE (03:16)
[2019-05-25] MEDS ORDERED: INSULIN LISPRO 100 UNITS/ML PEN SUBCU ONE (03:16)
[2019-05-25] MEDS ORDERED: MAGNESIUM SULFATE PREMIX 2GM 50 ML IVPB ONE (03:19)
[2019-05-25] MEDS ORDERED: ZOLPIDEM TARTRATE 10 MG TAB PO ONE (03:24)
--- NOTE | 2019-05-25 03:30 | ED.PDOC ---
History of Present Illness - General Chief Complaint: General Stated Complaint: left side painful, locked up Time Seen by Provider: 05/25/19 01:17 Source: patient Exam Limitations: no limitations - History of Present Illness Initial Comments: the patient is a 43-year-old female well-known to the emergency room presenting secondary to complaints of worsening dystonia. She has had this issue for the last couple of months. She has seen a neurologist for it. It primarily seems to affect the left side of her neck. She reports that she's been having a hard time sleeping over the last couple of days because of it. She reports fair glucose control over the last few weeks. She has had some mild nausea but no vomiting. Few medications and actually seemed to help. We've been trying to avoid medications that might exacerbate this problem. The muscle spasm in her neck seems to be Propagating down towards the shoulder. She does actually appear to be otherwise neurovascularly at her baseline. Timing/Duration: unsure Severity: moderate Improving Factors: nothing Worsening Factors: movement Associated Symptoms: malaise, nausea/vomiting Allergies/Adverse Reactions: Allergies Fish Allergy Allergy (Verified 04/20/19 20:06) peanut Allergy (Severe, Uncoded 04/20/19 20:06) Home Medications: Ambulatory Orders Zolpidem Tartrate [Ambien] 10 mg PO BEDTIME 04/09/16 HYDROcodone 10MG/APAP 325MG [[place] 10/325] 1 ea PO QID 08/12/17 Mometasone Furoate [Elocon] 0.1 % TOP DAILY PRN 11/07/17 Epinephrine [Epipen 2-Mikael] 0.3 mg IJ ONCE PRN #1 pack 03/26/18 Promethazine Tab [Phenergan Tablet] 25 mg PO Q6H PRN #15 tab 07/19/18 Buspirone HCl 30 mg PO BID 10/23/18 Pregabalin [Lyrica] 100 mg PO TID 10/23/18 Venlafaxine HCl [Venlafaxine HCl ER] 300 mg PO DAILY 10/23/18 Diazepam 5 mg PO TID 02/21/19 Insulin Aspart (with Niacinami [Fiasp Flextouch 100 Unit/ml] 100 unit SC ACHS 02/24/19 Insulin Detemir [Levemir Pen] 32 units SUBCU DAILY@0700 02/24/19 Albuterol Inhaler [Ventolin Hfa Inhaler] 1 puff INH BID 02/25/19 Salmeterol Xinafoate [Serevent Diskus] 50 mcg INH DAILY 02/25/19 Baclofen 5 mg PO Q8HR PRN #30 tab 05/25/19 Review of Systems - Review of Systems Constitutional: States: malaise EENTM: States: no symptoms reported Respiratory: States: no symptoms reported Cardiology: States: no symptoms reported Gastrointestinal/Abdominal: States: no symptoms reported Genitourinary: States: no symptoms reported Musculoskeletal: States: see HPI Skin: States: no symptoms reported Neurological: States: see HPI, anxiety Endocrine: States: no symptoms reported All other Systems: No Change from Baseline Past Medical History (General) - Patient Medical History Hx Seizures: Yes Hx Stroke: No Hx Dementia: No Hx Asthma: No Hx of COPD: No Hx Cardiac Disorders: No Hx Congestive Heart Failure: No Hx Pacemaker: No Hx Hypertension: No Hx Thyroid Disease: No Hx Diabetes: Yes Hx Gastroesophageal Reflux: Yes Hx Renal Disease: No Hx Cancer: No Hx of HIV: No Hx Hepatitis C: No Hx MRSA: No MRSA Source:: Wound Surgical History: appendectomy, cholecystectomy, Hysterectomy - Vaccination History Hx Tetanus, Diphtheria Vaccination: No Hx Influenza Vaccination: No Hx Pneumococcal Vaccination: No - Social History Hx Tobacco Use: Yes Hx Chewing Tobacco Use: No Hx Alcohol Use: No Hx Substance Use: No Hx Substance Use Treatment: No Hx Depression: Yes Hx Physical Abuse: No Hx Emotional Abuse: No Hx Suspected Abuse: No - Female History Patient is a Female of Child Bearing Age (10 -59 yrs old): Yes Hx Last Menstrual Period: 11/05/11 Patient : No Family Medical History - Family History Mother Family History: No Known Name: April Age (years): 70 Living Status: Still Living Hx Family Asthma: No Hx Family Congestive Heart Failure: No Hx Family Hypertension: No Hx Family Stroke: No Hx Cardiac Disease: No Hx Family Diabetes: No Hx Family Cancer: Yes - skin cancer Hx Family;Other: thyroid problems and seizures Father Family History: No Known Name: Marlon Age (years): 68 Living Status: Still Living Hx Family Asthma: - Sister Hx Family Congestive Heart Failure: No Hx Family Hypertension: Yes Hx Family Stroke: No Hx Cardiac Disease: Yes Hx Family Diabetes: No Age of Onset (years of age): 32 Hx Family Cancer: - Grandmother Lymphoma Physical Exam - Physical Exam General Appearance: Alert, No apparent distress, Other - the patient does have the dystonia. Eye Exam: bilateral normal Ears, Nose, Throat: hearing grossly normal, normal pharynx Neck: other - see history of present illness Respiratory: lungs clear, normal breath sounds, no respiratory distress, no accessory muscle use Cardiovascular/Chest: normal peripheral pulses, regular rate, rhythm, no edema Peripheral Pulses: radial,right: 2+, radial,left: 2+, dorsalis pedis,right: 2+, dorsalis pedis,left: 2+ Gastrointestinal/Abdominal: non tender, soft Rectal Exam: deferred Back Exam: no CVA tenderness, no vertebral tenderness Extremity: normal range of motion - somewhat limited to the left shoulder due to propagation of muscle spasm, non-tender, normal inspection, no pedal edema, normal capillary refill Neurologic: aba tutor II-XII nml as tested, alert, oriented x 3 Skin Exam: normal color Comments: Vital Signs - 24 hr 05/25/19 05/25/19 00:59 01:59 Temperature 97.0 F L Pulse Rate [ 98 H 89 Right] Respiratory 20 16 Rate Blood Pressure 137/97 108/75 [Left Arm] O2 Sat by Pulse 100 96 Oximetry Progress - Progress Progress: 05/25/19 03:33 the patient is a 43-year-old female presenting to the emergency room secondary to pain from her dystonia. This seems to be what her specialist believe is going on. To that end the patient was given 2 mg of IV Cogentin. She was also given a dose of baclofen. Additionally due to the patient's complaint that she has not been able to sleep from this the patient given a dose of Ambien here. She'll be written for baclofen 5 mg by mouth 3 times a day when necessary #30 tablets to use as a trial. She does understand this medication can build up on her and if she is getting too drowsy or acting confused then she has to hold a couple of doses. She does understand that it can have an additive effect with her other medications and she does need to inform her pain management doctor that she is receiving this medication. she needs to follow up with her primary care doctor in a couple of days for repeat evaluation. ER warnings were given. The patient did also receive a dose of insulin for a moderately elevated blood sugar for her. She does need to follow this at home. lana anderson [id number] - Results/Orders Results/Orders: Laboratory Results - last 24 hr 05/25/19 05/25/19 01:27 01:27 WBC 6.9 RBC 4.44 Hgb 12.2 Hct 36.7 MCV 82.7 MCH 27.4 MCHC 33.1 RDW 13.0 Plt Count 242 MPV 8.8 Absolute Neuts (auto) 3.60 Absolute Lymphs (auto) 2.70 Absolute Monos (auto) 0.40 Absolute Eos (auto) 0.20 Absolute Basos (auto) 0.00 Neutrophils % 51.5 Lymphocytes % 38.7 Monocytes % 5.7 Eosinophils % 3.4 Basophils % 0.7 Sodium 132 L Potassium 4.5 Chloride 99 L Carbon Dioxide 22 Anion Gap 15.5 BUN 21 H Creatinine 0.60 BUN/Creatinine Ratio 35.0 H Random Glucose 352 H Serum Osmolality 281.6 Calcium 9.0 Magnesium 1.7 L Total Bilirubin 0.3 AST 27 ALT 22 Alkaline Phosphatase 129 H Creatine Kinase 41 CK-MB (CK-2) 1.2 CK-MB (CK-2) % Not Reportable Troponin I < 0.02 Serum Total Protein 6.7 Albumin 3.6 Globulin 3.1 Albumin/Globulin Ratio 1.2 Departure - Departure Clinical Impression: Dystonia, Hyperglycemia, Hypomagnesemia Insomnia Qualifiers: Insomnia type: due to medical condition Qualified Code(s): G47.01 - Insomnia due to medical condition Disposition: Discharge to Home or Self Care Condition: Fair Departure Forms: ED Discharge - Pt. Copy, Patient Portal Self Enrollment Instructions: Torticollis, Adult, Dystonia Diet: diabetic diet Activity: increase activity as tolerated Referrals: JUSTINO MARQUEZ IV SOFTWARE CONFIGURATION ANALYST [Primary Care Provider] - 1-2 Days Prescriptions: Baclofen 5 mg PO Q8HR PRN #30 tab PRN Reason: Muscle Spasms Home Medications: Ambulatory Orders Zolpidem Tartrate [Ambien] 10 mg PO BEDTIME 04/09/16 HYDROcodone 10MG/APAP 325MG [[place] ] 1 ea PO QID 08/12/17 Mometasone Furoate [Elocon] 0.1 % TOP DAILY PRN 11/07/17 Epinephrine [Epipen 2-Mikael] 0.3 mg IJ ONCE PRN #1 pack 03/26/18 Promethazine Tab [Phenergan Tablet] 25 mg PO Q6H PRN #15 tab 07/19/18 Buspirone HCl 30 mg PO BID 10/23/18 Pregabalin [Lyrica] 100 mg PO TID 10/23/18 Venlafaxine HCl [Venlafaxine HCl ER] 300 mg PO DAILY 10/23/18 Diazepam 5 mg PO TID 02/21/19 Insulin Aspart (with Niacinami [Fiasp Flextouch 100 Unit/ml] 100 unit SC ACHS Insulin Detemir [Levemir Pen] 32 units SUBCU DAILY@0700 02/24/19 Albuterol Inhaler [Ventolin Hfa Inhaler] 1 puff INH BID 02/25/19 Salmeterol Xinafoate [Serevent Diskus] 50 mcg INH DAILY 02/25/19 Baclofen 5 mg PO Q8HR PRN #30 tab 05/25/19 Additional Instructions: the patient is a 43-year-old female presenting to the emergency room secondary to pain from her dystonia. This seems to be what her specialist believe is going on. To that end the patient was given 2 mg of IV Cogentin. She was also given a dose of baclofen. Additionally due to the patient's complaint that she has not been able to sleep from this the patient given a dose of Ambien here. She'll be written for baclofen 5 mg by mouth 3 times a day when necessary #30 tablets to use as a trial. She does understand this medication can build up on her and if she is getting too drowsy or acting confused then she has to hold a couple of doses. She does understand that it can have an additive effect with her other medications and she does need to inform her pain management doctor that she is receiving this medication. she needs to follow up with her primary care doctor in a couple of days for repeat evaluation. ER warnings were given. The patient did also receive a dose of insulin for a moderately elevated blood sugar for her. She does need to follow this at home.
[2019-05-25 04:28] VITALS: BP 119/75; TEMP 97.8; O2SAT 98
== END 2019-05-25 04:27 | disposition home or self-care (01) ==
LOC: ER 00:53
DX: G24.3 Spasmodic torticollis (principal); G47.01 Insomnia due to medical condition; E83.42 Hypomagnesemia; E11.65 Type 2 diabetes mellitus with hyperglycemia; R11.0 Nausea; R56.9 Unspecified convulsions; K21.9 Gastro-esophageal reflux disease without esophagitis; F32.9 Major depressive disorder, single episode, unspecified; Z87.891 Personal history of nicotine dependence; Z79.899 Other long term (current) drug therapy; Z91.013 Allergy to seafood; Z79.4 Long term (current) use of insulin
CPT/HCPCS: 80053; 82550; 82553; 83735; 84484; 85025; 93005; J0515; J1815; J3475; J7030

== ENCOUNTER → 2019-05-27 | Day surgery (SDC) | payer MEDICARE, MEDICAID ==
--- NOTE | 2019-05-25 16:09 | RAD ---
EXAM DESCRIPTION: Chest,2 Views CLINICAL HISTORY: 43 years Female, preop COMPARISON: 04/25/2019. TECHNIQUE: PA and lateral radiographs of the chest were obtained. FINDINGS: Trachea is midline.The cardiomediastinal silhouette is normal in size. The pulmonary vasculature is within normal limits.The lungs are clear with no acute consolidation.No evidence of pleural effusions.No evidence of pneumothorax. IMPRESSION: No acute cardiopulmonary process. Electronically signed by: Nancy Hansen MD 05/25/2019 4:07 PM CDT
== END ==
LOC: AMB 05:25
PROVIDERS: ATTEND Orthopaedic Surgery
DX: Z01.818 Encounter for other preprocedural examination (principal); K50.10 Crohn's disease of large intestine without complications; Z53.9 Procedure and treatment not carried out, unspecified reason

== ENCOUNTER 2019-06-11 15:35 | Emergency (ER) | payer MEDICARE, MEDICAID ==
--- NOTE | 2019-06-11 16:08 | ED.PDOC ---
History of Present Illness - General Chief Complaint: Diabetic Complaint Time Seen by Provider: 06/11/19 16:01 Source: patient Exam Limitations: no limitations - History of Present Illness Initial Comments: this is a 43-year-old white female who presents to the emergency room today with complaints of high blood sugar. She states over the past day she has had abdominal pain that has been diffuse in nature. She has had a history of pancreatitis in the past but denies that this feels the same. She has multiple visits throughout each month with complaints of abdominal pain. She reports that she did have some subjective fever last night. She is noted to have no evidence of fever currently. She also reports that she had an episode of vomiting and diarrhea today. she is a type I diabetic and was last admitted several months ago from her recollection. Allergies/Adverse Reactions: Allergies Fish Allergy Allergy (Verified 04/20/19 20:06) peanut Allergy (Severe, Uncoded 04/20/19 20:06) Home Medications: Ambulatory Orders RX: HYDROcodone 10MG/APAP 325MG [[place] 10/325] 1 ea PO QID 08/12/17 RX: Mometasone Furoate [Elocon] 0.1 % TOP DAILY PRN 11/07/17 RX: Epinephrine [Epipen 2-Mikael] 0.3 mg IJ ONCE PRN #1 pack 03/26/18 RX: Promethazine Tab [Phenergan Tablet] 25 mg PO Q6H PRN #15 tab 07/19/18 RX: Buspirone HCl 30 mg PO BID 10/23/18 RX: Pregabalin [Lyrica] 100 mg PO TID 10/23/18 RX: Venlafaxine HCl [Venlafaxine HCl ER] 300 mg PO DAILY 10/23/18 RX: Diazepam 5 mg PO TID 02/21/19 RX: Insulin Aspart (with Niacinami [Fiasp Flextouch 100 Unit/ml] 100 unit SC ACHS 02/24/19 RX: Insulin Detemir [Levemir Pen] 32 units SUBCU DAILY@0700 02/24/19 RX: Albuterol Inhaler [Ventolin Hfa Inhaler] 1 puff INH BID 02/25/19 RX: Salmeterol Xinafoate [Serevent Diskus] 50 mcg INH DAILY 02/25/19 Ciprofloxacin [Cipro] 250 mg PO Q12H #14 tablet 11/07/19 Review of Systems - Review of Systems Constitutional: States: see HPI, fever. Denies: chills EENTM: States: no symptoms reported Respiratory: States: no symptoms reported. Denies: cough, short of breath Cardiology: States: no symptoms reported. Denies: chest pain, edema, palpitations, syncope Gastrointestinal/Abdominal: States: abdominal pain, diarrhea, nausea, vomiting Genitourinary: States: no symptoms reported. Denies: discharge, dysuria, frequency, hematuria Musculoskeletal: States: back pain Skin: States: no symptoms reported. Denies: change in color, lesions, rash Neurological: States: anxiety, depressed, emotional problems Endocrine: States: other - high blood sugar Hematologic/Lymphatic: States: no symptoms reported All other Systems: Reviewed and Negative Past Medical History (General) - Patient Medical History Hx Seizures: Yes Hx Stroke: No Hx Dementia: No Hx Asthma: No Hx of COPD: No Hx Cardiac Disorders: No Hx Congestive Heart Failure: No Hx Pacemaker: No Hx Hypertension: No Hx Thyroid Disease: No Hx Diabetes: Yes Hx Gastroesophageal Reflux: Yes Hx Renal Disease: No Hx Cancer: No Hx of HIV: No Hx Hepatitis C: No Hx MRSA: No MRSA Source:: Wound - Vaccination History Hx Tetanus, Diphtheria Vaccination: No Hx Influenza Vaccination: No Hx Pneumococcal Vaccination: No - Social History Hx Tobacco Use: Yes Hx Chewing Tobacco Use: No Hx Alcohol Use: No Hx Substance Use: No Hx Substance Use Treatment: No Hx Depression: Yes Hx Physical Abuse: No Hx Emotional Abuse: No Hx Suspected Abuse: No - Female History Hx Last Menstrual Period: 11/05/11 Patient : No Family Medical History - Family History Mother Family History: No Known Name: April Age (years): 70 Living Status: Still Living Hx Family Asthma: No Hx Family Congestive Heart Failure: No Hx Family Hypertension: No Hx Family Stroke: No Hx Cardiac Disease: No Hx Family Diabetes: No Hx Family Cancer: Yes - skin cancer Hx Family;Other: thyroid problems and seizures Father Family History: No Known Name: Marlon Age (years): 68 Living Status: Still Living Hx Family Asthma: - Sister Hx Family Congestive Heart Failure: No Hx Family Hypertension: Yes Hx Family Stroke: No Hx Cardiac Disease: Yes Hx Family Diabetes: No Age of Onset (years of age): 32 Hx Family Cancer: - Grandmother Lymphoma Physical Exam - Physical Exam General Appearance: Alert, Other - mild distress secondary to abdominal pain. Patient is guarding her abdomen. Eye Exam: bilateral normal Ears, Nose, Throat: hearing grossly normal, normal ENT inspection, normal pharynx Neck: non-tender, full range of motion, supple, normal inspection Respiratory: chest non-tender, lungs clear, normal breath sounds, no respiratory distress, no accessory muscle use, respiratory distress, other - smell strongly of tobacco Cardiovascular/Chest: normal peripheral pulses, regular rate, rhythm, no edema, no gallop, no JVD, no murmur Peripheral Pulses: radial,right: 2+, radial,left: 2+ Gastrointestinal/Abdominal: normal bowel sounds, soft, guarding, tenderness, other - diffuse tenderness Rectal Exam: deferred Back Exam: normal inspection, no CVA tenderness, no vertebral tenderness Extremity: normal range of motion, non-tender, normal inspection, no pedal edema Neurologic: account service associate II-XII nml as tested, no motor/sensory deficits, alert, normal mood/affect, oriented x 3 Skin Exam: normal color, warm/dry Lymphatic: no adenopathy Progress - Progress Progress: 06/11/19 16:51 patient does not have ketones in her serum. Her EKG reveals a normal sinus rhythm with no evidence of ST or T-wave changes. ABG reveals a 7.41 pH PCO2 of 34.9 PaO2 of 93.8 and base of -1.8 06/11/19 18:00 Repeat blood glucose is 257 on the patients monitor. She is noted to have an uti. Cipro to be started. Will prepare for discharge. - Results/Orders Results/Orders: IMPRESSION: Heart size and pulmonary vascularity are within normal limits. Atherosclerosis in the thoracic aorta. There is no airspace consolidation, pleural effusion, or pneumothorax. No acute osseous abnormality. Electronically signed by: Dyllan Santos MD 06/11/2019 4:27 PM GOVERNMENT RELATIONS ANALYST - [id number] 06/11/19 16:09 IV Care:Saline Lock per Protoc QSHIFT Sodium Chloride 0.9% (Flush) [Saline Flush Syringe] 10 ml IV PRN PRN Sodium Chloride 0.9% 1000ML [Ns 1000 ml] 1,000 ml IVS ONCE 06/11/19 16:10 BLOOD CULTURE Stat 06/11/19 16:15 EKG STAT 06/11/19 16:50 GLUCOSE,RANDOM Stat 06/12/19 09:00 Pulse Ox Daily Laboratory Results - last 24 hr 06/11/19 06/11/19 06/11/19 16:12 16:30 16:30 WBC 7.3 RBC 4.88 Hgb 13.2 Hct 41.0 MCV 83.9 MCH 27.0 MCHC 32.2 L RDW 13.4 Plt Count 262 MPV 8.5 Absolute Neuts (auto) 5.40 Absolute Lymphs (auto) 1.40 Absolute Monos (auto) 0.40 Absolute Eos (auto) 0.10 Absolute Basos (auto) 0.00 Neutrophils % 73.8 Lymphocytes % 19.3 L Monocytes % 5.4 Eosinophils % 1.2 Basophils % 0.3 pCO2 35 pO2 93 HCO3 21.8 ABG pH 7.410 ABG O2 Saturation 98.9 ABG Base Excess -1.8 ABG Deoxyhemoglobin 1.1 Oxyhemoglobin % 93.4 L Carboxyhemoglobin % 3.6 H Methemoglobin % Sat 1.9 H Calc Total Hemoglobin 12.7 Sodium 132 L Potassium 4.5 Chloride 100 L Carbon Dioxide 20 L Anion Gap 16.5 BUN 15 Creatinine 0.61 BUN/Creatinine Ratio 24.6 H POC Glucose Random Glucose 547 H* Serum Osmolality 290.3 Calcium 8.8 Total Bilirubin 0.4 AST 22 ALT 28 Alkaline Phosphatase 127 H Serum Total Protein 7.1 Albumin 3.9 Globulin 3.2 Albumin/Globulin Ratio 1.2 Lipase Urine Color Urine Appearance Urine pH Ur Specific [place] Urine Protein Urine Glucose (UA) Urine Ketones Urine Blood Urine Nitrite Urine Bilirubin Urine Urobilinogen Ur Leukocyte Esterase Urine RBC Urine WBC Ur Epithelial Cells Urine Bacteria Serum Ketones Negative 06/11/19 06/11/19 06/11/19 16:30 16:30 16:30 WBC RBC Hgb Hct MCV MCH MCHC RDW Plt Count MPV Absolute Neuts (auto) Absolute Lymphs (auto) Absolute Monos (auto) Absolute Eos (auto) Absolute Basos (auto) Neutrophils % Lymphocytes % Monocytes % Eosinophils % Basophils % pCO2 pO2 HCO3 ABG pH ABG O2 Saturation ABG Base Excess ABG Deoxyhemoglobin Oxyhemoglobin % Carboxyhemoglobin % Methemoglobin % Sat Calc Total Hemoglobin Sodium Potassium Chloride Carbon Dioxide Anion Gap BUN Creatinine BUN/Creatinine Ratio POC Glucose > 400 H* Random Glucose Serum Osmolality Calcium Total Bilirubin AST ALT Alkaline Phosphatase Serum Total Protein Albumin Globulin Albumin/Globulin Ratio Lipase 39 Urine Color Yellow Urine Appearance Clear Urine pH 6.0 Ur Specific [place] 1.010 Urine Protein Negative Urine Glucose (UA) >=1000 H Urine Ketones Negative Urine Blood Small H Urine Nitrite Negative Urine Bilirubin Negative Urine Urobilinogen 0.2 Ur Leukocyte Esterase Negative Urine RBC 0-1 Urine WBC 0-1 Ur Epithelial Cells 1-3 Urine Bacteria Rare Serum Ketones 06/11/19 16:37 WBC RBC Hgb Hct MCV MCH MCHC RDW Plt Count MPV Absolute Neuts (auto) Absolute Lymphs (auto) Absolute Monos (auto) Absolute Eos (auto) Absolute Basos (auto) Neutrophils % Lymphocytes % Monocytes % Eosinophils % Basophils % pCO2 pO2 HCO3 ABG pH ABG O2 Saturation ABG Base Excess ABG Deoxyhemoglobin Oxyhemoglobin % Carboxyhemoglobin % Methemoglobin % Sat Calc Total Hemoglobin Sodium Potassium Chloride Carbon Dioxide Anion Gap BUN Creatinine BUN/Creatinine Ratio POC Glucose Random Glucose Cancelled Serum Osmolality Calcium Total Bilirubin AST ALT Alkaline Phosphatase Serum Total Protein Albumin Globulin Albumin/Globulin Ratio Lipase Urine Color Urine Appearance Urine pH Ur Specific [place] Urine Protein Urine Glucose (UA) Urine Ketones Urine Blood Urine Nitrite Urine Bilirubin Urine Urobilinogen Ur Leukocyte Esterase Urine RBC Urine WBC Ur Epithelial Cells Urine Bacteria Serum Ketones - EKG/XRAY/CT EKG: Sinus, no ST T wave changes Departure - Departure Clinical Impression: Hyperglycemia due to type 1 diabetes mellitus, Diabetic gastroparesis Urinary tract infection Qualifiers: Urinary tract infection type: acute cystitis Hematuria presence: without hematuria Qualified Code(s): N30.00 - Acute cystitis without hematuria Time of Disposition: 18:03 Disposition: Discharge to Home or Self Care Condition: Good Departure Forms: ED Discharge - Pt. Copy, Patient Portal Self Enrollment Instructions: DI for Diabetes Type 1 -- Adult Referrals: JUSTINO MARQUEZ IV, [employer]AC[employer] MEMBER [Primary Care Provider] - 1-2 Weeks Prescriptions: Ciprofloxacin [Cipro] 250 mg PO Q12H #14 tablet Home Medications: Ambulatory Orders RX: HYDROcodone 10MG/APAP 325MG [[place] 10/325] 1 ea PO QID 08/12/17 RX: Mometasone Furoate [Elocon] 0.1 % TOP DAILY PRN 11/07/17 RX: Epinephrine [Epipen 2-Mikael] 0.3 mg IJ ONCE PRN #1 pack 03/26/18 RX: Promethazine Tab [Phenergan Tablet] 25 mg PO Q6H PRN #15 tab 07/19/18 RX: Buspirone HCl 30 mg PO BID 10/23/18 RX: Pregabalin [Lyrica] 100 mg PO TID 10/23/18 RX: Venlafaxine HCl [Venlafaxine HCl ER] 300 mg PO DAILY 10/23/18 RX: Diazepam 5 mg PO TID 02/21/19 RX: Insulin Aspart (with Niacinami [Fiasp Flextouch 100 Unit/ml] 100 unit SC ACHS 02/24/19 RX: Insulin Detemir [Levemir Pen] 32 units SUBCU DAILY@0700 02/24/19 RX: Albuterol Inhaler [Ventolin Hfa Inhaler] 1 puff INH BID 02/25/19 RX: Salmeterol Xinafoate [Serevent Diskus] 50 mcg INH DAILY 02/25/19 Ciprofloxacin [Cipro] 250 mg PO Q12H #14 tablet 06/11/19 Additional Instructions: take medications as prescribed. Please complete them. Follow-up with PCP for improvement of diabetic control. If worsening symptoms return to ER.
[2019-06-11] MEDS ORDERED: SODIUM CHLORIDE 0.9% 1000ML 1,000 ML IVS PRN (16:09)
[2019-06-11] MEDS ORDERED: ONDANSETRON INJ 4 MG/2 ML VIAL IV ONE (16:09)
[2019-06-11] MEDS ORDERED: SODIUM CHLORIDE 0.9% (FLUSH) 10 ML SYG IV PRN (16:09)
[2019-06-11] MEDS ORDERED: MORPHINE SULFATE INJ 10 MG/ML VIAL IV ONE (16:12)
--- NOTE | 2019-06-11 16:29 | RAD ---
EXAM DESCRIPTION: Chest,1 View CLINICAL HISTORY: 43 years Female, fever, hyperglycemia COMPARISON: 05/25/2019 IMPRESSION: Heart size and pulmonary vascularity are within normal limits. Atherosclerosis in the thoracic aorta. There is no airspace consolidation, pleural effusion, or pneumothorax. No acute osseous abnormality. Electronically signed by: Dyllan Santos MD 06/11/2019 4:27 PM SALES ASSISTANT DISPLAYS
[2019-06-11] MEDS ORDERED: INSULIN, REG.(HUMAN) 100 U/ML VIAL SUBCU ONE (16:49)
[2019-06-11] MEDS ORDERED: CIPROFLOXACIN 500 MG TAB PO ONE (17:47)
[2019-06-11 18:39] VITALS: BP 122/85; TEMP 98.4; O2SAT 98
== END 2019-06-11 18:25 | disposition home or self-care (01) ==
LOC: ER 15:35
DX: E10.65 Type 1 diabetes mellitus with hyperglycemia (principal); E10.43 Type 1 diabetes mellitus with diabetic autonomic (poly)neuropathy; K31.84 Gastroparesis; N30.00 Acute cystitis without hematuria; R56.9 Unspecified convulsions; K21.9 Gastro-esophageal reflux disease without esophagitis; F32.9 Major depressive disorder, single episode, unspecified; Z87.891 Personal history of nicotine dependence; Z79.899 Other long term (current) drug therapy; Z79.4 Long term (current) use of insulin; Z91.013 Allergy to seafood; Z87.19 Personal history of other diseases of the digestive system
CPT/HCPCS: 36415; 71045; 80053; 81001; 82009; 82803; 82805; 82948; 83690; 85025; 87040; 93005; J2270; J2405; J7030

== ENCOUNTER 2019-06-18 16:41 | Emergency (ER) | payer MEDICARE, MEDICAID ==
[2019-06-18 16:51] VITALS: TEMP 97.8
[2019-06-18] MEDS ORDERED: KETOROLAC TROMETHAMINE INJ 30 MG/ML VIAL IV ONE (16:56)
--- NOTE | 2019-06-18 16:59 | ED.PDOC ---
History of Present Illness - General Chief Complaint: Trauma Stated Complaint: L shoulder, wrist, hip and neck discomfort Time Seen by Provider: 06/18/19 16:44 Source: patient - History of Present Illness Initial Comments: 43-year-old female presents to the emergency department via EMS after a complaint of left hip and shoulder pain as well as exacerbation of chronic neck pain after a fall. The patient reports that she was walking in her socks in her home when her feet slipped out from under her and she landed on her left hip and shoulder. She states that she did hit her head but denies any loss of consciousness. She denies any numbness or weakness and is not on any blood thinners. 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 She currently rates her pain as 10/10 in severity and it is worse with any palpation or attempted movement. Allergies/Adverse Reactions: Allergies Fish Allergy Allergy (Verified 04/20/19 20:06) peanut Allergy (Severe, Uncoded 04/20/19 20:06) Home Medications: Ambulatory Orders HYDROcodone 10MG/APAP 325MG [[place] 10/325] 1 ea PO QID 08/12/17 Mometasone Furoate [Elocon] 0.1 % TOP DAILY PRN 11/07/17 Epinephrine [Epipen 2-Mikael] 0.3 mg IJ ONCE PRN #1 pack 03/26/18 Promethazine Tab [Phenergan Tablet] 25 mg PO Q6H PRN #15 tab 07/19/18 Buspirone HCl 30 mg PO BID 10/23/18 Pregabalin [Lyrica] 100 mg PO TID 10/23/18 Venlafaxine HCl [Venlafaxine HCl ER] 300 mg PO DAILY 10/23/18 Diazepam 5 mg PO TID 02/21/19 Insulin Aspart (with Niacinami [Fiasp Flextouch 100 Unit/ml] 100 unit SC ACHS 02/24/19 Insulin Detemir [Levemir Pen] 32 units SUBCU DAILY@0700 02/24/19 Albuterol Inhaler [Ventolin Hfa Inhaler] 1 puff INH BID 02/25/19 Salmeterol Xinafoate [Serevent Diskus] 50 mcg INH DAILY 02/25/19 Ciprofloxacin [Cipro] 250 mg PO Q12H #14 tablet 06/11/19 Review of Systems - Review of Systems Constitutional: Denies: chills, fever EENTM: Denies: nose congestion, throat pain Respiratory: Denies: cough, short of breath Cardiology: Denies: chest pain, palpitations Gastrointestinal/Abdominal: Denies: abdominal pain, vomiting Genitourinary: Denies: dysuria, hematuria Musculoskeletal: States: joint pain - L hip and shoulder, muscle pain - L hip and shoulder, neck pain - with neck turned to the L Neurological: Denies: numbness, weakness Past Medical History (General) - Patient Medical History Hx Seizures: Yes Hx Stroke: No Hx Dementia: No Hx Asthma: No Hx of COPD: No Hx Cardiac Disorders: No Hx Congestive Heart Failure: No Hx Pacemaker: No Hx Hypertension: No Hx Thyroid Disease: No Hx Diabetes: Yes Hx Gastroesophageal Reflux: Yes Hx Renal Disease: No Hx Cancer: No Hx of HIV: No Hx Hepatitis C: No Hx MRSA: No MRSA Source:: Wound - Vaccination History Hx Tetanus, Diphtheria Vaccination: No Hx Influenza Vaccination: No Hx Pneumococcal Vaccination: No - Social History Hx Tobacco Use: Yes Hx Chewing Tobacco Use: No Hx Alcohol Use: No Hx Substance Use: No Hx Substance Use Treatment: No Hx Depression: Yes Hx Physical Abuse: No Hx Emotional Abuse: No Hx Suspected Abuse: No - Female History Hx Last Menstrual Period: 11/05/11 Patient : No Family Medical History - Family History Mother Family History: No Known Name: April Age (years): 70 Living Status: Still Living Hx Family Asthma: No Hx Family Congestive Heart Failure: No Hx Family Hypertension: No Hx Family Stroke: No Hx Cardiac Disease: No Hx Family Diabetes: No Hx Family Cancer: Yes - skin cancer Hx Family;Other: thyroid problems and seizures Father Family History: No Known Name: Marlon Age (years): 68 Living Status: Still Living Hx Family Asthma: - Sister Hx Family Congestive Heart Failure: No Hx Family Hypertension: Yes Hx Family Stroke: No Hx Cardiac Disease: Yes Hx Family Diabetes: No Age of Onset (years of age): 33 Hx Family Cancer: - Grandmother Lymphoma Physical Exam - Physical Exam General Appearance: Alert Eye Exam: bilateral normal Ears, Nose, Throat: normal ENT inspection, normal pharynx Neck: limited range of motion - Actively turned to the L and pt refuses to attempt movement and pushes against attempts at passive ROM. 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 On review of these previous exams the patient chronically has her neck rotated to the left with decreased range of motion to the neck. I discussed with the patient the need to obtain images of her cervical spine due to her complaint of diffuse pain after her fall however don't know how useful these tests will be with her neck rotated as it is. We will try a dose of Ativan to see if this helps with her symptoms and attempt to obtain imaging at that time. 06/18/19 18:21 Patient recheck: Imaging results discussed with patient along with plan for discharge. She was instructed to take her home Valium and hydrocodone as directed for pain and spasms. She is instructed to follow up with her pain management physician. She is to return to the emergency department for any worsening symptoms or other concerns. The patient and family at the bedside have voiced understanding and agreed to treatment plan. - Results/Orders Results/Orders: CT Cervical spine read by radiology and reviewed by myself: IMPRESSION: 1. No fractures or dislocations given significant motion artifact. Clinical concern persists, repeat examination should be performed versus cervical spine MRI examination. This exam was performed according to our departmental dose-optimization program, which includes automated exposure control, adjustment of the mA and/or kV according to patient size and/or use of iterative reconstruction technique. Electronically signed by: Luis Eduardo Go MD 06/18/2019 6:08 PM [facility] Left shoulder x-ray read by radiology and reviewed by myself: IMPRESSION: Normal 2 view left shoulder radiographic series. Electronically signed by: Luis Eduardo Go MD 06/18/2019 6:01 PM [facility] Left hip x-ray read by radiology and reviewed by myself: IMPRESSION: Normal 2 view left hip radiographic series. Electronically signed by: Luis Eduardo Go MD 06/18/2019 6:03 PM [facility] Departure - Departure Clinical Impression: Contusion of left hip, initial encounter, Contusion of left shoulder, initial encounter Cervical myofascial strain Qualifiers: Encounter type: subsequent encounter Qualified Code(s): S16.1XXD - Strain of muscle, fascia and tendon at neck level, subsequent encounter Time of Disposition: 18:23 Disposition: Discharge to Home or Self Care Departure Forms: ED Discharge - Pt. Copy, Patient Portal Self Enrollment Instructions: Contusion (DC), Generalized Neck Pain (DC), Cervical Muscle Strain (DC) Referrals: JUSTINO MARQUEZ IV, DIAL SCREW ASSEMBLER [Primary Care Provider] - 1-2 Days Home Medications: Ambulatory Orders HYDROcodone 10MG/APAP 325MG [[place] 10/325] 1 ea PO QID 08/12/17 Mometasone Furoate [Elocon] 0.1 % TOP DAILY PRN 11/07/17 Epinephrine [Epipen 2-Mikael] 0.3 mg IJ ONCE PRN #1 pack 03/26/18 Promethazine Tab [Phenergan Tablet] 25 mg PO Q6H PRN #15 tab 07/19/18 Buspirone HCl 30 mg PO BID 10/23/18 Pregabalin [Lyrica] 100 mg PO TID 10/23/18 Venlafaxine HCl [Venlafaxine HCl ER] 300 mg PO DAILY 10/23/18 Diazepam 5 mg PO TID 02/21/19 Insulin Aspart (with Niacinami [Fiasp Flextouch 100 Unit/ml] 100 unit SC ACHS 02/24/19 Insulin Detemir [Levemir Pen] 32 units SUBCU DAILY@0700 02/24/19 Albuterol Inhaler [Ventolin Hfa Inhaler] 1 puff INH BID 02/25/19 Salmeterol Xinafoate [Serevent Diskus] 50 mcg INH DAILY 02/25/19 Ciprofloxacin [Cipro] 250 mg PO Q12H #14 tablet 06/11/19 Additional Instructions: Home medications as directed. Use [id number] topical medications as needed as well as ice and heat. Follow-up with her primary care physician/pain management, call tomorrow to schedule an appointment as soon as possible. Return to emergency department for worsening of symptoms or other concerns. Comments: DO Edmund Wiseman#[id number]
[2019-06-18] MEDS ORDERED: HYDROcodone 5MG/APAP 325MG 1 EA TAB PO ONE (17:51)
--- NOTE | 2019-06-18 18:03 | RAD ---
2 VIEWS LEFT SHOULDER RADIOGRAPHIC SERIES. INDICATIONS: Pain post fall. COMPARISONS: No comparisons are available. FINDINGS: No fractures or dislocations. No radiopaque soft tissue foreign bodies or soft tissue gas. The partially visualized left ribs are intact. Left lung appears clear. No left apical pneumothorax. IMPRESSION: Normal 2 view left shoulder radiographic series. Electronically signed by: Luis Eduardo Go MD 06/18/2019 6:01 PM [facility]
--- NOTE | 2019-06-18 18:05 | RAD ---
EXAM: 2 VIEWS LEFT HIP RADIOGRAPHS CLINICAL INDICATION: Pain post fall. COMPARISON: Compared to the hip radiographs of February 21, 2019. FINDINGS: No fractures or dislocations. No evidence of left hip avascular necrosis. Unchanged small superior lateral labral calcification. The degenerated sacroiliac joints are intact. Pubic symphysis appears intact. No lytic or blastic bone lesions. IMPRESSION: Normal 2 view left hip radiographic series. Electronically signed by: Luis Eduardo Go MD 06/18/2019 6:03 PM [facility]
--- NOTE | 2019-06-18 18:10 | CT ---
EXAM: NONCONTRAST CERVICAL SPINE CT EXAMINATION. CLINICAL INDICATION: Pain post fall. COMPARISON: Compared to the cervical spine CT examination of January 30, 2019. TECHNIQUE: Using low-dose helical technique, thin section axial images were performed through the cervical spine without the administration of intravenous or subarachnoid contrast material. CT sagittal coronal reconstructions were also obtained. FINDINGS: Motion artifact degrades fine evaluation of the examination. No convincing fractures, spondylolisthesis or facet joint dislocation motion artifact. No hemorrhage in the spinal canal. Precervical soft tissue thickness is normal. The odontoid process, preodontoid space and C1 vertebral body are intact. The occipital condyles are intact. Partially visualized bony structures of the skull base appear normal. Soft tissue structures of the neck are grossly normal on this noncontrast examination. IMPRESSION: 1. No fractures or dislocations given significant motion artifact. Clinical concern persists, repeat examination should be performed versus cervical spine MRI examination. This exam was performed according to our departmental dose-optimization program, which includes automated exposure control, adjustment of the mA and/or kV according to patient size and/or use of iterative reconstruction technique. Electronically signed by: Luis Eduardo Go MD 06/18/2019 6:08 PM [facility]
[2019-06-18 19:14] VITALS: BP 92/60; O2SAT 97
== END 2019-06-18 18:45 | disposition home or self-care (01) ==
LOC: ER 16:41
DX: S70.02XA Contusion of left hip, initial encounter (principal); S40.012A Contusion of left shoulder, initial encounter; S16.1XXA Strain of muscle, fascia and tendon at neck level, initial encounter; E11.9 Type 2 diabetes mellitus without complications; K21.9 Gastro-esophageal reflux disease without esophagitis; Z91.010 Allergy to peanuts; Z91.013 Allergy to seafood; Z87.891 Personal history of nicotine dependence; Z79.899 Other long term (current) drug therapy; W01.0XXA Fall on same level from slipping, tripping and stumbling without subsequent striking against object, initial encounter; Y92.009 Unspecified place in unspecified non-institutional (private) residence as the place of occurrence of the external cause
CPT/HCPCS: 72125; 73030; 73502; J1885; J2060

== ENCOUNTER → 2019-07-01 | Outpatient (CLI) | payer MEDICARE, MEDICAID ==
--- NOTE | 2019-07-03 13:49 | US ---
US THYROID CLINICAL STATEMENT: NODULE. No palpable mass. No prior thyroid surgery or therapy. COMPARISON: Noncontrast CT scan cervical spine 18 June 2019. TECHNIQUE: Transcutaneous scanning, grayscale and Doppler modes. FINDINGS: Size right thyroid lobe: 4.9 x 2.0 x 1.6 cm Size left thyroid lobe: 4.4 x 1.8 x 1.4 cm Size isthmus: 0.3 cm Estimated total number of nodules greater than or equal to 1 cm: None. Heterogeneous gland. No dominant solid mass or distinct cyst. No large calcifications. Nodule 1: Size: 0.6 x 0.4 x 0.3 cm Location: Right Upper Composition: solid or almost completely solid: 2 points Echogenicity: hypoechoic: 2 points Shape: wider than tall: 0 points Margins: smooth: 0 points hypoechoic rim. Echogenic foci: none: 0 points ACR Total Points: 4; ACR TI-RADS risk category: TR4 - moderately suspicious nodule. No dominant solid mass or distinct cyst or large calcifications in the surrounding soft tissues. IMPRESSION: 1. Nodule 1: ACR TI-RADS 2017 Category TR4. Recommend: No further follow-up.. Recommendations based upon [employer] Best Practice recommendations and ACR TI-RADS 2017 guidelines. Please see below*. 2. Soft tissue around the thyroid gland is unremarkable. *ACR TI-RADS 2017 Recommendations for imaging follow-up of nodules: TR1: No FNA or follow up TR2: No FNA or follow up TR3: FNA if >/= 2.5 cm, follow up if 1.5 - 2.4 cm in 1, 3, and 5 years TR4: FNA if >/= 1.5 cm, follow up if 1.0 - 1.4 cm in 1, 2, 3, and 5 years TR5: FNA if >/= 1.0 cm, follow up if 0.5 - 0.9 cm every year for 5 years ACR TI-RADS recommends that no more than two nodules with the highest ACR TI-RADS total point should be biopsied and no more than four nodules should be followed. These recommendations do not apply to patients with increased risk for thyroid cancer or patients with symptomatic thyroid disease. Electronically signed by: Marlon Proctor MD 07/03/2019 1:47 PM [facility]
== END ==
LOC: US 11:00
PROVIDERS: ATTEND Nurse Practitioner Family
DX: E04.1 Nontoxic single thyroid nodule (principal)

== ENCOUNTER 2019-07-04 15:47 | Emergency (ER) | payer MEDICARE, MEDICAID ==
[2019-07-04] MEDS ORDERED: ONDANSETRON INJ 4 MG/2 ML VIAL IV ONE (16:27)
[2019-07-04] MEDS ORDERED: SODIUM CHLORIDE 0.9% 1000ML 1,000 ML IVS PRN (16:27)
[2019-07-04] MEDS ORDERED: SODIUM CHLORIDE 0.9% (FLUSH) 10 ML SYG IV PRN (16:27)
[2019-07-04] MEDS ORDERED: MORPHINE SULFATE INJ 10 MG/ML VIAL IV ONE (16:28)
--- NOTE | 2019-07-04 16:36 | ED.PDOC ---
History of Present Illness - General Chief Complaint: Abdominal Pain Time Seen by Provider: 07/04/19 16:17 - History of Present Illness Initial Comments: The patient is a 43F with PMH significant for type 1 diabetes, gastroparesis, COPD, neuropathy, fibromyalgia, anxiety/depression who presents to the ED with complaints of generalized abdominal pain, nausea and vomiting. She has history of frequent ED visits related to her labile blood sugars and poorly controlled gastroparesis. She complains of generalized abdominal pain and vomiting, no fever or diarrhea. States that she has not been able to keep food or medications down. Also complains of difficulty maintaining her blood glucose which she reports as being in the 40s last night. Currently 102 in triage. Review of Systems - Review of Systems Constitutional: States: malaise. Denies: chills, fever EENTM: States: no symptoms reported Respiratory: Denies: cough, short of breath Cardiology: Denies: chest pain, palpitations Gastrointestinal/Abdominal: States: abdominal pain, nausea, vomiting. Denies: c onstipation, diarrhea Genitourinary: States: no symptoms reported. Denies: discharge, dysuria, hematuria Musculoskeletal: States: no symptoms reported Skin: Denies: lesions, rash Neurological: Denies: numbness, weakness Endocrine: States: no symptoms reported Hematologic/Lymphatic: States: no symptoms reported All other Systems: Reviewed and Negative Past Medical History (General) - Patient Medical History Hx Seizures: Yes Hx Stroke: No Hx Dementia: No Hx Asthma: No Hx of COPD: No Hx Cardiac Disorders: No Hx Congestive Heart Failure: No Hx Pacemaker: No Hx Hypertension: No Hx Thyroid Disease: No Hx Diabetes: Yes Hx Gastroesophageal Reflux: Yes Hx Renal Disease: No Hx Cancer: No Hx of HIV: No Hx Hepatitis C: No Hx MRSA: No MRSA Source:: Wound - Vaccination History Hx Tetanus, Diphtheria Vaccination: No Hx Influenza Vaccination: No Hx Pneumococcal Vaccination: No - Social History Hx Tobacco Use: Yes Hx Chewing Tobacco Use: No Hx Alcohol Use: No Hx Substance Use: No Hx Substance Use Treatment: No Hx Depression: Yes Hx Physical Abuse: No Hx Emotional Abuse: No Hx Suspected Abuse: No - Female History Hx Last Menstrual Period: 11/05/11 Patient : No Family Medical History - Family History Mother Family History: No Known Name: April Age (years): 70 Living Status: Still Living Hx Family Asthma: No Hx Family Congestive Heart Failure: No Hx Family Hypertension: No Hx Family Stroke: No Hx Cardiac Disease: No Hx Family Diabetes: No Hx Family Cancer: Yes - skin cancer Hx Family;Other: thyroid problems and seizures Father Family History: No Known Name: Marlon Age (years): 68 Living Status: Still Living Hx Family Asthma: - Sister Hx Family Congestive Heart Failure: No Hx Family Hypertension: Yes Hx Family Stroke: No Hx Cardiac Disease: Yes Hx Family Diabetes: No Age of Onset (years of age): 32 Hx Family Cancer: - Grandmother Lymphoma Physical Exam - Physical Exam General Appearance: Alert, Other - chronically ill-appearing, moderately distressed Eyes, Ears, Nose, Throat Exam: normal ENT inspection Neck: other - leftward torticollis Respiratory: lungs clear Cardiovascular/Chest: regular rate, rhythm, no murmur Gastrointestinal/Abdominal: tenderness - diffuse Neurologic: no motor/sensory deficits, alert, oriented x 3 Skin Exam: normal color, warm/dry Progress - Progress Progress: 07/04/19 16:38 Review of medical record shows multiple visits for similar complaints. She does have diffuse abdominal tenderness without focal findings. She has already had 3 CT scans of her abdomen/pelvis this year with the last normal scan two months ago. no current findings are suggestive of acute surgical abdomen. Will defer an y additional emergent abdominal imaging at this time. 07/04/19 18:08 Patient reassessed, feeling better and tolerating PO. Glucose is stable and normal. Repeat abdominal exam is benign. 07/04/19 18:10 MDM: patient presents to the ED with abdominal pain, vomiting. History of frequent visits. Workup as below, no DKA, glucose stable and tolerating PO in the ED. Abdominal exam not concerning for acute surgical abdomen. Will continue outpatient symptomatic management and she will follow up with her PCP. Home care instructions and return indications reviewed. - Results/Orders Results/Orders: 07/04/19 16:27 Sodium Chloride 0.9% (Flush) [Saline Flush Syringe] 10 ml IV PRN PRN Sodium Chloride 0.9% 1000ML [Ns 1000 ml] 1,000 ml IVS .QD Laboratory Results - last 24 hr 07/04/19 07/04/19 07/04/19 16:48 16:48 16:48 WBC 7.7 RBC 4.92 Hgb 13.1 Hct 40.4 MCV 82.1 MCH 26.7 L MCHC 32.5 L RDW 13.6 Plt Count 305 MPV 8.5 Absolute Neuts (auto) 5.60 Absolute Lymphs (auto) 1.50 Absolute Monos (auto) 0.40 Absolute Eos (auto) 0.10 Absolute Basos (auto) 0.00 Neutrophils % 73.7 Lymphocytes % 19.1 L Monocytes % 5.4 Eosinophils % 1.3 Basophils % 0.5 Sodium 137 Potassium 3.7 Chloride 103 Carbon Dioxide 25 Anion Gap 12.7 BUN 13 Creatinine 0.42 L BUN/Creatinine Ratio 31.0 H Random Glucose 97 Serum Osmolality 273.9 L Calcium 9.2 Total Bilirubin 0.4 Direct Bilirubin < 0.1 Indirect Bilirubin 0.3 AST 48 H ALT 81 H Alkaline Phosphatase 123 H Serum Total Protein 7.1 Albumin 4.0 Lipase 41 Urine Color Yellow Urine Appearance Clear Urine pH 8.5 H Ur Specific [place] 1.015 Urine Protein Negative Urine Glucose (UA) Negative Urine Ketones Negative Urine Blood Small H Urine Nitrite Negative Urine Bilirubin Negative Urine Urobilinogen 0.2 Ur Leukocyte Esterase Negative Urine RBC 0 Urine WBC 0 Ur Epithelial Cells 5-10 Urine Bacteria Rare Departure - Departure Clinical Impression: Gastroparesis Time of Disposition: 18:09 Disposition: Discharge to Home or Self Care Condition: Excellent Departure Forms: ED Discharge - Pt. Copy, Patient Portal Self Enrollment Instructions: DI for Abdominal Pain-Adult Diet: resume usual diet Activity: increase activity as tolerated Referrals: JUSTINO MARQUEZ IV, PETROLOGY TEACHER [Primary Care Provider] - 1-2 Weeks Home Medications: Ambulatory Orders HYDROcodone 10MG/APAP 325MG [[place] 10/325] 1 ea PO QID 08/12/17 Mometasone Furoate [Elocon] 0.1 % TOP DAILY PRN 11/07/17 Epinephrine [Epipen 2-Mikael] 0.3 mg IJ ONCE PRN #1 pack 03/26/18 Promethazine Tab [Phenergan Tablet] 25 mg PO Q6H PRN #15 tab 07/19/18 Buspirone HCl 30 mg PO BID 10/23/18 Pregabalin [Lyrica] 100 mg PO TID 10/23/18 Venlafaxine HCl [Venlafaxine HCl ER] 300 mg PO DAILY 10/23/18 Diazepam 5 mg PO TID 02/21/19 Insulin Aspart (with Niacinami [Fiasp Flextouch 100 Unit/ml] 100 unit SC ACHS 02/24/19 Insulin Detemir [Levemir Pen] 32 units SUBCU DAILY@0700 02/24/19 Albuterol Inhaler [Ventolin Hfa Inhaler] 1 puff INH BID 02/25/19 Salmeterol Xinafoate [Serevent Diskus] 50 mcg INH DAILY 02/25/19 Ciprofloxacin [Cipro] 250 mg PO Q12H #14 tablet 06/11/19 Comments: Ernesto Ocasio MD Emergency Medicine Physician Number [id number]
[2019-07-04] MEDS ORDERED: HYDROcodone 7.5MG/APAP 325MG 1 EA TAB PO ONE (17:49)
[2019-07-04 18:28] VITALS: BP 111/82; TEMP 97.1; O2SAT 100
== END 2019-07-04 18:27 | disposition home or self-care (01) ==
LOC: ER 15:47
DX: E10.43 Type 1 diabetes mellitus with diabetic autonomic (poly)neuropathy (principal); K31.84 Gastroparesis; J44.9 Chronic obstructive pulmonary disease, unspecified; E11.40 Type 2 diabetes mellitus with diabetic neuropathy, unspecified; M79.7 Fibromyalgia; F41.9 Anxiety disorder, unspecified; F32.9 Major depressive disorder, single episode, unspecified; R56.9 Unspecified convulsions; K21.9 Gastro-esophageal reflux disease without esophagitis; Z87.891 Personal history of nicotine dependence; Z79.4 Long term (current) use of insulin; Z79.899 Other long term (current) drug therapy
CPT/HCPCS: 36415; 80048; 80076; 81001; 83690; 85025; J2270; J2405; J7030

== ENCOUNTER 2019-07-06 14:26 | Emergency (ER) | payer MEDICARE, MEDICAID ==
[2019-07-06] MEDS ORDERED: PROMETHAZINE HCL INJ 25 MG/ML VIAL ONE (14:42)
[2019-07-06] MEDS ORDERED: SODIUM CHLORIDE 0.9% 50ML 50 ML ONE (14:42)
[2019-07-06] MEDS: methylPREDNISolone SODIUM SUC 125 MG/2 ML VIAL IV ONE (14:44)
[2019-07-06] MEDS: MONTELUKAST 10 MG TAB PO ONE (14:45)
[2019-07-06] MEDS: PROMETHAZINE HCL INJ 25 MG in SODIUM CHLORIDE 0.9% 50ML 50 ML IVPB ONE (14:45)
[2019-07-06] MEDS: MORPHINE SULFATE INJ 10 MG/ML VIAL IV ONE (15:33)
--- NOTE | 2019-07-06 15:49 | ED.PDOC ---
History of Present Illness - General Chief Complaint: Allergic Reaction Stated Complaint: food allergy to peanut butter and ate PB cookie Time Seen by Provider: 07/06/19 14:36 Source: patient Exam Limitations: no limitations - History of Present Illness Initial Comments: he patient is a 43-year-old female presenting to the emergency room secondary to having had an allergic reaction to a peanut cookie. She is allergic to peanuts. The patient also apparently had a panic attack when she realized that she had eaten a peanut cookie. She started throwing up. She sta rted gagging. The patient is obviously still in a panic attack on arrival here. Her voice is a little bit hoarse but it normally is due to her smoking. She is not actually in any respiratory distress. The posterior oropharynx is clear. Lungs are clear. EMS reported that she did have a mild rash upon their arrival but they gave her 50 mg of Benadryl and by the time she arrives here there is no apparent rash. She reports good blood sugar control over the last few days. She reports that she threw up her pain medication. She does have chronic issues with nausea and vomiting. Timing/Duration: 1 hour Severity: moderate Improving Factors: nothing Worsening Factors: nothing Associated Symptoms: nausea/vomiting Allergies/Adverse Reactions: Allergies Fish Allergy Allergy (Verified 04/20/19 20:06) peanut Allergy (Severe, Uncoded 04/20/19 20:06) Home Medications: Ambulatory Orders HYDROcodone 10MG/APAP 325MG [[place] 10/325] 1 ea PO QID 08/12/17 Mometasone Furoate [Elocon] 0.1 % TOP DAILY PRN 11/07/17 Epinephrine [Epipen 2-Mikael] 0.3 mg IJ ONCE PRN #1 pack 03/26/18 Promethazine Tab [Phenergan Tablet] 25 mg PO Q6H PRN #15 tab 07/19/18 Buspirone HCl 30 mg PO BID 10/23/18 Pregabalin [Lyrica] 100 mg PO TID 10/23/18 Venlafaxine HCl [Venlafaxine HCl ER] 300 mg PO DAILY 10/23/18 Diazepam 5 mg PO TID 02/21/19 Insulin Aspart (with Niacinami [Fiasp Flextouch 100 Unit/ml] 100 unit SC ACHS 02/24/19 Insulin Detemir [Levemir Pen] 32 units SUBCU DAILY@0700 02/24/19 Albuterol Inhaler [Ventolin Hfa Inhaler] 1 puff INH BID 02/25/19 Salmeterol Xinafoate [Serevent Diskus] 50 mcg INH DAILY 02/25/19 Ciprofloxacin [Cipro] 250 mg PO Q12H #14 tablet 06/11/19 Review of Systems - Review of Systems Constitutional: States: no symptoms reported EENTM: States: no symptoms reported Respiratory: States: short of breath - subjective Cardiology: States: no symptoms reported Gastrointestinal/Abdominal: States: nausea, vomiting Genitourinary: States: no symptoms reported Musculoskeletal: States: back pain - chronic Skin: States: no symptoms reported Neurological: States: anxiety Endocrine: States: no symptoms reported All other Systems: No Change from Baseline Past Medical History (General) - Patient Medical History Hx Seizures: Yes Hx Stroke: No Hx Dementia: No Hx Asthma: No Hx of COPD: No Hx Cardiac Disorders: No Hx Congestive Heart Failure: No Hx Pacemaker: No Hx Hypertension: No Hx Thyroid Disease: No Hx Diabetes: Yes Hx Gastroesophageal Reflux: Yes Hx Renal Disease: No Hx Cancer: No Hx of HIV: No Hx Hepatitis C: No Hx MRSA: No MRSA Source:: Wound - Vaccination History Hx Tetanus, Diphtheria Vaccination: No Hx Influenza Vaccination: No Hx Pneumococcal Vaccination: No - Social History Hx Tobacco Use: Yes Hx Chewing Tobacco Use: No Hx Alcohol Use: No Hx Substance Use: No Hx Substance Use Treatment: No Hx Depression: Yes Hx Physical Abuse: No Hx Emotional Abuse: No Hx Suspected Abuse: No - Activities of Daily Living Hospice Agency (if applicable):: None - Female History Hx Last Menstrual Period: 11/05/11 Patient : No Family Medical History - Family History Mother Family History: No Known Name: April Age (years): 70 Living Status: Still Living Hx Family Asthma: No Hx Family Congestive Heart Failure: No Hx Family Hypertension: No Hx Family Stroke: No Hx Cardiac Disease: No Hx Family Diabetes: No Hx Family Cancer: Yes - skin cancer Hx Family;Other: thyroid problems and seizures Father Family History: No Known Name: Marlon Age (years): 68 Living Status: Still Living Hx Family Asthma: - Sister Hx Family Congestive Heart Failure: No Hx Family Hypertension: Yes Hx Family Stroke: No Hx Cardiac Disease: Yes Hx Family Diabetes: No Age of Onset (years of age): 32 Hx Family Cancer: - Grandmother Lymphoma Physical Exam - Physical Exam General Appearance: Alert, Anxious Eye Exam: bilateral normal Ears, Nose, Throat: hearing grossly normal, normal pharynx, other - see history of present illness Neck: full range of motion, supple Respiratory: lungs clear, normal breath sounds, no respiratory distress, no accessory muscle use Cardiovascular/Chest: normal peripheral pulses, regular rate, rhythm, no edema Peripheral Pulses: radial,right: 2+, radial,left: 2+ Gastrointestinal/Abdominal: non tender, soft Rectal Exam: deferred Extremity: non-tender, normal inspection, no pedal edema, normal capillary refill 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 The patient was given Benadryl with EMS she also received a small dose of Solu-Medrol and the dose of Singulair here. Allergic reaction appears to have been controlled. She does need to follow her blood sugars closely for the next 24 hours. She does understand this and has agreed to comply. She also did receive a dose of Phenergan for her nausea and vomiting. She needs to keep herself well hydrated. Avoid peanut intake in the future. Anxiety appears to have abated as well. ER warnings were given. Follow back up with primary care doctor. lana anderson 235 Departure - Departure Clinical Impression: Food allergy, peanut, Anxiety about health Nausea and vomiting Qualifiers: Vomiting type: unspecified Vomiting Intractability: non-intractable Qualified Code(s): R11.2 - Nausea with vomiting, unspecified Disposition: Discharge to Home or Self Care Condition: Fair Departure Forms: ED Discharge - Pt. Copy, Patient Portal Self Enrollment Instructions: Food Allergy Diet: diabetic diet Activity: increase activity as tolerated Referrals: JUSTINO MARQUEZ IV [employer] MANAGER [Primary Care Provider] - 1-2 Weeks Home Medications: Ambulatory Orders HYDROcodone 10MG/APAP 325MG [[place] 10/325] 1 ea PO QID 08/12/17 Mometasone Furoate [Elocon] 0.1 % TOP DAILY PRN 11/07/17 Epinephrine [Epipen 2-Mikael] 0.3 mg IJ ONCE PRN #1 pack 03/26/18 Promethazine Tab [Phenergan Tablet] 25 mg PO Q6H PRN #15 tab 07/19/18 Buspirone HCl 30 mg PO BID 10/23/18 Pregabalin [Lyrica] 100 mg PO TID 10/23/18 Venlafaxine HCl [Venlafaxine HCl ER] 300 mg PO DAILY 10/23/18 Diazepam 5 mg PO TID 02/21/19 Insulin Aspart (with Niacinami [Fiasp Flextouch 100 Unit/ml] 100 unit SC ACHS 02/24/19 Insulin Detemir [Levemir Pen] 32 units SUBCU DAILY@0700 02/24/19 Albuterol Inhaler [Ventolin Hfa Inhaler] 1 puff INH BID 02/25/19 Salmeterol Xinafoate [Serevent Diskus] 50 mcg INH DAILY 02/25/19 Ciprofloxacin [Cipro] 250 mg PO Q12H #14 tablet 06/11/19 Additional Instructions: the patient a 43-year-old female presenting secondary to a peanut allergy. The patient was given Benadryl with EMS she also received a small dose of Solu-Medrol and the dose of Singulair here. Allergic reaction appears to have been controlled. She does need to follow her blood sugars closely for the next 24 hours. She does understand this and has agreed to comply. She also did receive a dose of Phenergan for her nausea and vomiting. She needs to keep herself well hydrated. Avoid peanut intake in the future. Anxiety appears to have abated as well. ER warnings were given. Follow back up with primary care doctor.
[2019-07-06 16:27] VITALS: BP 146/90; TEMP 98; O2SAT 96
== END 2019-07-06 15:55 | disposition home or self-care (01) ==
LOC: ER 14:26
DX: T78.1XXA Other adverse food reactions, not elsewhere classified, initial encounter (principal); R11.2 Nausea with vomiting, unspecified; R56.9 Unspecified convulsions; E11.9 Type 2 diabetes mellitus without complications; K21.9 Gastro-esophageal reflux disease without esophagitis; F32.9 Major depressive disorder, single episode, unspecified; Z91.010 Allergy to peanuts; Z87.891 Personal history of nicotine dependence; Z79.4 Long term (current) use of insulin; Z79.899 Other long term (current) drug therapy; Z91.013 Allergy to seafood
CPT/HCPCS: A4216; J2270; J2550; J2930

== ENCOUNTER → 2019-07-24 | Outpatient (CLI) | payer MEDICARE, MEDICAID ==
--- NOTE | 2019-07-26 18:10 | MRI ---
EXAM DESCRIPTION: Cervical Spine: MRI. CLINICAL HISTORY: 43 years Female DYSTONIA COMPARISON: Prior cervical MRI scan October 2018. TECHNIQUE: Multiplanar, high-field MRI, multiple sequences, non-contrast Cervical spine.. Significant limitations of the study due to patient pain and motion during the examination. FINDINGS: C2-C3: Normal signal in the disc with disc space preserved. No bulging. Canal and neural foramina are patent. Facets are negative. C3-C4: Normal signal in the disc with disc space preserved. No bulging. Small left uncinate spur. Canal and right neural foramina are patent. Mild narrowing of the left neural foramina. C4-C5: Normal signal in the disc and disc space preserved. Minimal posterior bulging. Minimal narrowing of the canal. Bilateral foramina are patent. C5-C6: Minimal disc desiccation with disc space preserved. No disc bulging. Canal and neural foramina are patent. Question of marrow edema in the left C5 lamina. Circumscribed hyperintense T1 and T2 hemangioma in the left transverse process of T5. C6-C7: Disc space preserved with normal signal in the disc. Right neural foramen and canal are patent. Minimal narrowing of the left neural foramen. Bilateral facet joints unremarkable. C7-T1: Disc space preserved minimal disc desiccation. Atrophic arthrosis in the left facet joint. Minimal narrowing of the neural foramina bilaterally. Canal is patent. Left facet joint unremarkable. Normal signal in the T1-T2 disc with no bulging. Disc space preserved. Canal and neural foramina are patent. Facet joints are unremarkable Spinal alignment reduced lordosis.. No cord compression or cord edema. Atlantoaxial joint negative.. Base of the cerebellar tonsils is at the level of the foramen magnum. Paravertebral soft tissues limited visualization due to artifact.. Vertebral bodies are not compressed at any level. Otherwise normal marrow signal in the remaining vertebral bodies and the posterior elements. IMPRESSION: 1. Limited study due to patient motion and movement during the examination. 2. Question of marrow edema in the left C5 lamina not seen on the prior study. This could represent a stress injury. Cannot confirm on other sequences due to artifact. 3. No disc herniations. No canal or neural foraminal stenosis. Normal signal in the cord.. Electronically signed by: Marlon Proctor MD 07/26/2019 6:09 PM [facility]
== END ==
LOC: MRI 10:07
PROVIDERS: ATTEND Nurse Practitioner Family
DX: G24.9 Dystonia, unspecified (principal)

== ENCOUNTER 2019-07-25 20:49 | Emergency (ER) | payer MEDICARE, MEDICAID ==
[2019-07-25] MEDS ORDERED: PANTOPRAZOLE SODIUM IV 40 MG VIAL IV ONE (21:16)
[2019-07-25] MEDS ORDERED: ONDANSETRON INJ 4 MG/2 ML VIAL IV ONE (21:16)
[2019-07-25] MEDS ORDERED: SODIUM CHLORIDE 0.9% 1000ML 1,000 ML IVS ONE (21:16)
--- NOTE | 2019-07-25 21:18 | ED.PDOC ---
History of Present Illness - General Chief Complaint: General Stated Complaint: fever, N/V/D, abdomen pain, flucuating blood sugar Time Seen by Provider: 07/25/19 21:03 Source: patient, RN notes reviewed, Vital Signs reviewed Exam Limitations: no limitations - History of Present Illness Initial Comments: this is a 43-year-old white female who presents to the emergency Department with complaints of nausea vomiting and diarrhea. She states that she has had fluctuating blood sugars as well. Her symptoms began yesterday. She denies having any recent body aches. She reports generalized abdominal pain as well. The patient has had numerous visits to the emergency room here. Had about 10 episodes of nausea vomiting and diarrhea. Patient denies any current fevers. She states that she has been using her insulin as prescribed. She does admit to smoking 2 packs per day of tobacco and has a daily cough. She reports it is currently nonproductive. She reports having a cholecystectomy as well as an appendectomy. Allergies/Adverse Reactions: Allergies Fish Allergy Allergy (Verified 07/25/19 21:04) peanut Allergy (Severe, Uncoded 07/25/19 21:04) Home Medications: Ambulatory Orders HYDROcodone 10MG/APAP 325MG [[place] 10/325] 1 ea PO QID 08/12/17 Mometasone Furoate [Elocon] 0.1 % TOP DAILY PRN 11/07/17 Epinephrine [Epipen 2-Mikael] 0.3 mg IJ ONCE PRN #1 pack 03/26/18 Promethazine Tab [Phenergan Tablet] 25 mg PO Q6H PRN #15 tab 07/19/18 Buspirone HCl 30 mg PO BID 10/23/18 Pregabalin [Lyrica] 100 mg PO TID 10/23/18 Venlafaxine HCl [Venlafaxine HCl ER] 300 mg PO DAILY 10/23/18 Diazepam 5 mg PO TID 02/21/19 Insulin Aspart (with Niacinami [Fiasp Flextouch 100 Unit/ml] 100 unit SC ACHS 02/24/19 Insulin Detemir [Levemir Pen] 32 units SUBCU DAILY@0700 02/24/19 Albuterol Inhaler [Ventolin Hfa Inhaler] 1 puff INH BID 02/25/19 Salmeterol Xinafoate [Serevent Diskus] 50 mcg INH DAILY 02/25/19 Ciprofloxacin [Cipro] 250 mg PO Q12H #14 tablet 06/11/19 Promethazine Tab [Phenergan Tablet] 25 mg PO .Q4H #15 tab 07/25/19 Review of Systems - Review of Systems Constitutional: States: fever, malaise. Denies: chills EENTM: States: nose congestion. Denies: eye pain, blurred vision, tearing, ear pain, ear discharge, throat pain, throat swelling Respiratory: States: cough. Denies: short of breath, stridor, wheezing Cardiology: States: no symptoms reported Gastrointestinal/Abdominal: States: abdominal pain, diarrhea, nausea, vomiting Genitourinary: States: no symptoms reported Musculoskeletal: States: no symptoms reported Skin: States: no symptoms reported Neurological: States: no symptoms reported Endocrine: States: other - hypoglycemic as well as hyperglycemic events Hematologic/Lymphatic: States: no symptoms reported All other Systems: Reviewed and Negative Past Medical History (General) - Patient Medical History Hx Seizures: Yes Hx Stroke: No Hx Dementia: No Hx Asthma: No Hx of COPD: No Hx Cardiac Disorders: No Hx Congestive Heart Failure: No Hx Pacemaker: No Hx Hypertension: No Hx Thyroid Disease: No Hx Diabetes: Yes Hx Gastroesophageal Reflux: Yes Hx Renal Disease: No Hx Cancer: No Hx of HIV: No Hx Hepatitis C: No Hx MRSA: No MRSA Source:: Wound Surgical History: appendectomy, cholecystectomy, Hysterectomy - Vaccination History Hx Tetanus, Diphtheria Vaccination: No Hx Influenza Vaccination: No Hx Pneumococcal Vaccination: No - Social History Hx Tobacco Use: Yes Hx Chewing Tobacco Use: No Hx Alcohol Use: No Hx Substance Use: Yes Hx Substance Use Treatment: No Hx Depression: Yes Hx Physical Abuse: No Hx Emotional Abuse: No Hx Suspected Abuse: No - Female History Hx Last Menstrual Period: 11/05/11 Patient : No Family Medical History - Family History Mother Family History: No Known Name: April Age (years): 70 Living Status: Still Living Hx Family Asthma: No Hx Family Congestive Heart Failure: No Hx Family Hypertension: No Hx Family Stroke: No Hx Cardiac Disease: No Hx Family Diabetes: No Hx Family Cancer: Yes - skin cancer Hx Family;Other: thyroid problems and seizures Father Family History: No Known Name: Marlon Age (years): 68 Living Status: Still Living Hx Family Asthma: - Sister Hx Family Congestive Heart Failure: No Hx Family Hypertension: Yes Hx Family Stroke: No Hx Cardiac Disease: Yes Hx Family Diabetes: No Age of Onset (years of age): 32 Hx Family Cancer: - Grandmother Lymphoma Physical Exam - Physical Exam General Appearance: Alert, No apparent distress, Other - I'll strongly of tobacco, Eye Exam: bilateral normal Ears, Nose, Throat: hearing grossly normal, normal ENT inspection, normal pharynx Neck: non-tender, full range of motion, supple, normal inspection Respiratory: chest non-tender, lungs clear, normal breath sounds, no respiratory distress, no accessory muscle use Cardiovascular/Chest: normal peripheral pulses, regular rate, rhythm, no edema, no gallop, no JVD, no murmur Gastrointestinal/Abdominal: normal bowel sounds, soft, guarding, tenderness, other - patient has some diffuse tenderness noted, has some mild guarding. 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 We will get laboratory evaluation on the patient and check for serum ketones. Address her blood sugar as necessary. We'll go ahead and start hydration and also give her some Zofran and Protonix. Will review her medical records some more as well. Also get a UDS. 07/25/19 21:57 Pt has a normal wbc, lactate is normal, no serum ketones with normal co2, and no urine leukocytes. Glucose is moderately elevated. 07/25/19 22:39 I discussed all findings with the patient. She is feeling better. We will get her discharged at this time. She is to follow-up with her antisqueak worker. We did discuss better control of her blood sugar and discontinuation of tobacco. - Results/Orders Results/Orders: Laboratory Tests 07/25/19 07/25/19 07/25/19 21:29 21:30 21:30 WBC 7.9 RBC 4.93 Hgb 13.2 Hct 40.8 MCV 82.9 MCH 26.9 L MCHC 32.4 L RDW 13.7 Plt Count 310 MPV 8.2 Absolute Neuts (auto) 5.20 Absolute Lymphs (auto) 2.10 Absolute Monos (auto) 0.30 Absolute Eos (auto) 0.20 Absolute Basos (auto) 0.10 Neutrophils % 66.4 Lymphocytes % 26.0 Monocytes % 3.9 Eosinophils % 2.8 Basophils % 0.9 Sodium 136 Potassium 4.3 Chloride 103 Carbon Dioxide 24 Anion Gap 13.3 BUN 17 Creatinine 0.57 L BUN/Creatinine Ratio 29.8 H Random Glucose 269 H Serum Osmolality 283.0 Lactic Acid Calcium 9.1 Total Bilirubin < 0.2 L AST 28 ALT 31 Alkaline Phosphatase 119 Serum Total Protein 7.2 Albumin 4.1 Globulin 3.1 Albumin/Globulin Ratio 1.3 Urine Color Yellow Urine Appearance Clear Urine pH 7.0 Ur Specific [place] 1.015 Urine Protein Negative Urine Glucose (UA) 500 H Urine Ketones Negative Urine Blood Small H Urine Nitrite Negative Urine Bilirubin Negative Urine Urobilinogen 0.2 Ur Leukocyte Esterase Negative Urine RBC 1-3 Urine WBC 0-1 Ur Epithelial Cells 5-10 Urine Bacteria Rare Urine Opiates Screen Urine Barbiturates Ur Phencyclidine Scrn U Amphetamin/Meth Scrn U Benzodiazepines Scrn U Cocaine Metab Screen U Cannabinoids Screen Serum Ketones 07/25/19 07/25/19 07/25/19 21:30 21:30 21:30 WBC RBC Hgb Hct MCV MCH MCHC RDW Plt Count MPV Absolute Neuts (auto) Absolute Lymphs (auto) Absolute Monos (auto) Absolute Eos (auto) Absolute Basos (auto) Neutrophils % Lymphocytes % Monocytes % Eosinophils % Basophils % Sodium Potassium Chloride Carbon Dioxide Anion Gap BUN Creatinine BUN/Creatinine Ratio Random Glucose Serum Osmolality Lactic Acid 1.2 Calcium Total Bilirubin AST ALT Alkaline Phosphatase Serum Total Protein Albumin Globulin Albumin/Globulin Ratio Urine Color Urine Appearance Urine pH Ur Specific [place] Urine Protein Urine Glucose (UA) Urine Ketones Urine Blood Urine Nitrite Urine Bilirubin Urine Urobilinogen Ur Leukocyte Esterase Urine RBC Urine WBC Ur Epithelial Cells Urine Bacteria Urine Opiates Screen Negative Urine Barbiturates Negative Ur Phencyclidine Scrn Negative U Amphetamin/Meth Scrn Negative U Benzodiazepines Scrn Positive H U Cocaine Metab Screen Negative U Cannabinoids Screen Negative Serum Ketones Negative Neg flu a and b Departure - Departure Clinical Impression: Generalized abdominal discomfort, Dehydration, History of diabetes mellitus, Diabetic gastroparesis Nausea & vomiting Qualifiers: Vomiting type: unspecified Vomiting Intractability: non-intractable Qualified Code(s): R11.2 - Nausea with vomiting, unspecified Time of Disposition: 22:40 Disposition: Discharge to Home or Self Care Condition: Good Departure Forms: ED Discharge - Pt. Copy, Patient Portal Self Enrollment Instructions: Nausea and Vomiting, Adult (DC) Referrals: JUSTINO MARQUEZ IV SACK KEEPER [Primary Care Provider] - 1-2 Weeks Prescriptions: Promethazine Tab [Phenergan Tablet] 25 mg PO .Q4H #15 tab Home Medications: Ambulatory Orders HYDROcodone 10MG/APAP 325MG [[place] 10/325] 1 ea PO QID 08/12/17 Mometasone Furoate [Elocon] 0.1 % TOP DAILY PRN 11/07/17 Epinephrine [Epipen 2-Mikael] 0.3 mg IJ ONCE PRN #1 pack 03/26/18 Promethazine Tab [Phenergan Tablet] 25 mg PO Q6H PRN #15 tab 07/19/18 Buspirone HCl 30 mg PO BID 10/23/18 Pregabalin [Lyrica] 100 mg PO TID 10/23/18 Venlafaxine HCl [Venlafaxine HCl ER] 300 mg PO DAILY 10/23/18 Diazepam 5 mg PO TID 02/21/19 Insulin Aspart (with Niacinami [Fiasp Flextouch 100 Unit/ml] 100 unit SC ACHS 02/24/19 Insulin Detemir [Levemir Pen] 32 units SUBCU DAILY@0700 02/24/19 Albuterol Inhaler [Ventolin Hfa Inhaler] 1 puff INH BID 02/25/19 Salmeterol Xinafoate [Serevent Diskus] 50 mcg INH DAILY 02/25/19 Ciprofloxacin [Cipro] 250 mg PO Q12H #14 tablet 06/11/19 Promethazine Tab [Phenergan Tablet] 25 mg PO .Q4H #15 tab 07/25/19 Additional Instructions: follow-up with your antisqueak worker. Take medications as prescribed. Cut down on tobacco use. Follow up with PCP for review of meds and diabetic control. Return to ED as necessary.
[2019-07-25] MEDS ORDERED: fentaNYL CITRATE INJ 50 MCG/ML AMP IV ONE (22:09)
[2019-07-25 23:03] VITALS: BP 115/88; TEMP 97.9; O2SAT 95
== END 2019-07-25 22:53 | disposition home or self-care (01) ==
LOC: ER 20:49
DX: E11.43 Type 2 diabetes mellitus with diabetic autonomic (poly)neuropathy (principal); K31.84 Gastroparesis; E86.0 Dehydration; F17.210 Nicotine dependence, cigarettes, uncomplicated; R05 Cough; R56.9 Unspecified convulsions; K21.9 Gastro-esophageal reflux disease without esophagitis; F32.9 Major depressive disorder, single episode, unspecified; Z79.4 Long term (current) use of insulin; Z90.49 Acquired absence of other specified parts of digestive tract; Z79.899 Other long term (current) drug therapy
CPT/HCPCS: 36415; 80053; 80307; 81001; 82009; 83605; 85025; 87040; 87502; J2405; J3010; J7030

== ENCOUNTER → 2019-07-31 | Outpatient (CLI) | payer MEDICARE, MEDICAID ==
--- NOTE | 2019-07-31 11:24 | MRI ---
EXAM DESCRIPTION: Thoracic Spine w/o Contrast CLINICAL HISTORY: 43 years Female, DYSTONIA COMPARISON: MRI cervical spine 07/24/2019. CT abdomen and pelvis 04/25/2019. 2 view chest radiograph 05/25/2019. TECHNIQUE: Multisequence, multiplanar images of the thoracic spine without intravenous contrast. FINDINGS: Vertebrae: No acute fracture. No acute compression deformity. Moderate thoracic kyphosis centered at C6. Normal AP alignment. No suspicious marrow signal. Large Schmorl's node along the inferior posterior T8 endplate. Small Schmorl's nodes along the inferior T9 and inferior T10 endplates as well. Spinal cord: Normal cord signal. Multifocal indentation of the ventral spinal cord as detailed below. Discs, facets, spinal canal and neural foramina: Disc desiccation within the mid thoracic spine from T4-T5. T9-T10. Mild disc space during at T4-T5 through T8-T9. T4-T5: Left paracentral disc extrusion measuring 8 mm wide, 3 mm thick, and over length of 8 mm containing tiny annular fissure. Minimal flattening left ventral spinal cord. Spinal canal is patent. Neuroforamina are patent. The 5-6: Minimal disc bulge eccentric towards the right. Spinal canal and neuroforamina are patent. T6-T7: Posterior right paracentral disc protrusion containing a small annular fissure. Protrusion measures approximately 7 mm wide and up to 3 mm thick. Mild spinal canal stenosis with focal indentation of the right ventral spinal cord. Neuroforamina are patent. T7-T8: Minimal disc bulge eccentric towards the left with no spinal canal compromise but mild flattening of the left ventral spinal cord. Neuroforamina are patent. T8-T9: Small disc bulge eccentric towards the left without spinal canal compromise but with minimal flattening of the left spinal cord. Neuroforamina are patent. Paraspinous soft-tissues: Unremarkable. IMPRESSION: 1. No acute fracture. 2. Thoracic spondylosis with no greater than mild spinal canal stenosis at C6-C7 and focal indentation of the right ventral spinal cord contributed by small posterior right paracentral disc protrusion. 3. Neuroforamina predominantly patent. Electronically signed by: Anton Linares MD 07/31/2019 11:22 AM [facility]
== END ==
LOC: MRI 10:13
PROVIDERS: ATTEND Nurse Practitioner Family
DX: G24.9 Dystonia, unspecified (principal); M47.892 Other spondylosis, cervical region; M48.02 Spinal stenosis, cervical region; M50.223 Other cervical disc displacement at C6-C7 level

== ENCOUNTER 2019-08-07 14:33 | Emergency (ER) | payer MEDICARE, MEDICAID ==
[2019-08-07 14:50] VITALS: TEMP 96.5
--- NOTE | 2019-08-07 15:28 | RAD ---
Study: Single Frontal Radiograph of the Chest. Indication:nausea and vomiting with abdominal pain Comparison: June 11, 2019 Impression: Lung apices not included in their entirety within the field of view on the frontal image. Heart size normal. Lungs clear. No acute osseous abnormality. Electronically signed by: German Garza MD 08/07/2019 3:27 PM [facility]
--- NOTE | 2019-08-07 15:45 | ED.PDOC ---
History of Present Illness - General Chief Complaint: Diabetic Complaint Stated Complaint: N/V weakness and elevated BS Time Seen by Provider: 08/07/19 15:00 Source: patient, RN notes reviewed, Vital Signs reviewed, EMS notes reviewed, old records - History of Present Illness Initial Comments: Patient is a 43-year-old white female who presents the emergency department via EMS with complaints of nausea, vomiting x24 hours with worsening abdominal pain. The pain is cramping and sharp in nature. Nothing makes it better. It gets worse when she tries to eat or drink. Additionally, the nausea and vomiting is worse when she tries to eat or drink. The symptoms have been ongoing for 24 hours. Patient denies any fever, chills, chest pain, shortness of breath, cough, dysuria. The pain is moderate in nature. This pain is similar to pain she has had in the past with DKA. Timing/Duration: 24 hours Severity: moderate Improving Factors: nothing Worsening Factors: nothing Associated Symptoms: loss of appetite, malaise, nausea/vomiting, weakness Allergies/Adverse Reactions: Allergies Fish Allergy Allergy (Verified 07/25/19 21:04) peanut Allergy (Severe, Uncoded 07/25/19 21:04) Home Medications: Ambulatory Orders RX: HYDROcodone 10MG/APAP 325MG [[place] 10/325] 1 ea PO QID 08/12/17 RX: Mometasone Furoate [Elocon] 0.1 % TOP DAILY PRN 11/07/17 RX: Epinephrine [Epipen 2-Mikael] 0.3 mg IJ ONCE PRN #1 pack 03/26/18 RX: Promethazine Tab [Phenergan Tablet] 25 mg PO Q6H PRN #15 tab 07/19/18 RX: Buspirone HCl 30 mg PO BID 10/23/18 RX: Pregabalin [Lyrica] 100 mg PO TID 10/23/18 RX: Venlafaxine HCl [Venlafaxine HCl ER] 300 mg PO DAILY 10/23/18 RX: Diazepam 5 mg PO TID 02/21/19 RX: Insulin Aspart (with Niacinami [Fiasp Flextouch 100 Unit/ml] 100 unit SC ACHS 02/24/19 RX: Insulin Detemir [Levemir Pen] 32 units SUBCU DAILY@0700 02/24/19 RX: Albuterol Inhaler [Ventolin Hfa Inhaler] 1 puff INH BID 02/25/19 RX: Salmeterol Xinafoate [Serevent Diskus] 50 mcg INH DAILY 02/25/19 Ciprofloxacin [Cipro] 250 mg PO Q12H #14 tablet 06/11/19 RX: Promethazine Tab [Phenergan Tablet] 25 mg PO .Q4H #15 tab 07/25/19 Review of Systems - Review of Systems Constitutional: States: see HPI, malaise, weakness. Denies: chills, diaphoresis, fever EENTM: States: no symptoms reported, see HPI Respiratory: States: no symptoms reported. Denies: see HPI, cough, orthopnea, short of breath Cardiology: States: no symptoms reported, see HPI. Denies: chest pain, palpitations, syncope Gastrointestinal/Abdominal: States: see HPI, abdominal pain, nausea, vomiting. Denies: constipation, diarrhea Genitourinary: States: no symptoms reported, see HPI. Denies: discharge, dysuria, frequency, hematuria Musculoskeletal: States: no symptoms reported Skin: States: no symptoms reported Neurological: States: see HPI, weakness. Denies: headache, paresthesia, seizure Endocrine: States: increased thirst, increased urine Hematologic/Lymphatic: States: no symptoms reported All other Systems: Reviewed and Negative Past Medical History (General) - Patient Medical History Hx Seizures: Yes Hx Stroke: No Hx Dementia: No Hx Asthma: No Hx of COPD: No Hx Cardiac Disorders: No Hx Congestive Heart Failure: No Hx Pacemaker: No Hx Hypertension: No Hx Thyroid Disease: No Hx Diabetes: Yes Hx Gastroesophageal Reflux: Yes Hx Renal Disease: No Hx Cancer: No Hx of HIV: No Hx Hepatitis C: No Hx MRSA: No MRSA Source:: Wound - Vaccination History Hx Tetanus, Diphtheria Vaccination: No Hx Influenza Vaccination: No Hx Pneumococcal Vaccination: No Immunizations Up to Date: No - Social History Hx Tobacco Use: Yes Hx Chewing Tobacco Use: No Hx Alcohol Use: Yes Hx Substance Use: Yes Hx Substance Use Treatment: No Hx Depression: Yes Hx Physical Abuse: No Hx Emotional Abuse: No Hx Suspected Abuse: No - Female History Patient is a Female of Child Bearing Age (10 -59 yrs old): Yes Hx Last Menstrual Period: 11/05/11 Patient : No Family Medical History - Family History Mother Family History: No Known Name: April Age (years): 70 Living Status: Still Living Hx Family Asthma: No Hx Family Congestive Heart Failure: No Hx Family Hypertension: No Hx Family Stroke: No Hx Cardiac Disease: No Hx Family Diabetes: No Hx Family Cancer: Yes - skin cancer Hx Family;Other: thyroid problems and seizures Father Family History: No Known Name: Marlon Age (years): 68 Living Status: Still Living Hx Family Asthma: - Sister Hx Family Congestive Heart Failure: No Hx Family Hypertension: Yes Hx Family Stroke: No Hx Cardiac Disease: Yes Hx Family Diabetes: No Age of Onset (years of age): 32 Hx Family Cancer: - Grandmother Lymphoma Physical Exam - Physical Exam General Appearance: Agitated, Alert, Anxious, Obvious distress, Well Developed, Well Groomed, Well Nourished Eye Exam: bilateral normal Ears, Nose, Throat: hearing grossly normal, other - Dry mucous membranes. Neck: non-tender, full range of motion, supple, limited range of motion - Patient preferentially holds her head turned to the left. She states it hurts but does have full range of motion. Per nursing staff this is her normal appearance for this physical exam finding. Respiratory: chest non-tender, lungs clear, normal breath sounds, no accessory m uscle use, respiratory distress - Patient is mildly tachypneic with ketones on her breath. Cardiovascular/Chest: normal peripheral pulses, no edema, no gallop, no JVD, no murmur, tachycardia Peripheral Pulses: radial,right: 2+, radial,left: 2+ Gastrointestinal/Abdominal: normal bowel sounds, soft, no organomegaly, no pulsatile mass, tenderness - Generalized Back Exam: normal inspection, no CVA tenderness, no vertebral tenderness Extremity: normal range of motion, non-tender, normal inspection Neurologic: inspector assembly II-XII nml as tested, no motor/sensory deficits, alert, normal mood/affect, oriented x 3 Skin Exam: normal color, warm/dry Lymphatic: no adenopathy Progress - Progress Progress: Differential diagnosis: DKA, hyperglycemia, dehydration, electrolyte abnormalities among others 08/07/19 1630 Patient resting comfortably. Blood sugar at 264. Patient has been given 5 units of IV insulin. Per DKA protocol, insulin drip started . 08/07/19 17:55 Patient accepted at [facility] by Dr. Santacruz. Repeat blood sugar is 184. D5 W has been started at 125 mL's per hour. Repeat BMP has been ordered. 08/07/19 18:10 Hao Zambrano M.D. #[id number] - Results/Orders Results/Orders: EKG performed 07 August 2019 at 1527 hrs. sinus tachycardia at 130 bpm, possible left atrial enlargement, left axis deviation, septal infarct, age indeterminate, abnormal EKG. No prior EKG for comparison. 08/07/19 15:02 Sodium Chloride 0.9% (Flush) [Saline Flush Syringe] 10 ml IV PRN PRN Sodium Chloride 0.9% 1000ML [Ns 1000 ml] 1,000 ml IVS ONCE URINALYSIS Stat 08/07/19 15:15 EKG STAT 08/07/19 16:30 Insulin, Reg.(Human) [HumuLIN R] 250 units Sodium Chl 0.9% 250Ml (Radha) [NS 250ml (RADHA)] 247.5 ml IVPB Q12H 08/07/19 17:44 GLUCOSE, FINGER STICK Stat ABG [Arterial Blood Gas] Stat 08/07/19 17:47 Dextrose 5% 1000ML [D5W 1000ml] 1,000 ml IVS .QD 08/08/19 09:00 Pulse Ox Daily Laboratory Results - last 24 hr 08/07/19 08/07/19 08/07/19 15:03 15:16 15:16 WBC 13.8 H RBC 5.29 Hgb 13.8 Hct 44.1 MCV 83.3 MCH 26.2 L MCHC 31.4 L RDW 13.8 Plt Count 340 MPV 8.8 Absolute Neuts (auto) 11.80 H Absolute Lymphs (auto) 1.50 Absolute Monos (auto) 0.40 Absolute Eos (auto) 0.00 Absolute Basos (auto) 0.10 Neutrophils % 85.4 H Lymphocytes % 10.7 L Monocytes % 3.3 Eosinophils % 0.1 L Basophils % 0.5 pCO2 31 L pO2 77 L HCO3 12.3 ABG pH 7.220 L* ABG O2 Saturation 96.7 ABG Base Excess -14.2 ABG Deoxyhemoglobin 3.2 Oxyhemoglobin % 92.4 L Carboxyhemoglobin % 4.1 H Methemoglobin % Sat 0.3 Calc Total Hemoglobin 13.4 Sodium 133 L Potassium 5.1 H Chloride 98 L Carbon Dioxide 12 L* Anion Gap 28.1 H BUN 23 H Creatinine 1.02 BUN/Creatinine Ratio 22.5 H POC Glucose Random Glucose 327 H Serum Osmolality 282.8 Calcium 9.9 Total Bilirubin 1.7 H AST 18 ALT 32 Alkaline Phosphatase 128 H Serum Total Protein 8.3 H Albumin 4.7 Globulin 3.6 H Albumin/Globulin Ratio 1.3 Serum Ketones Negative 08/07/19 15:16 WBC RBC Hgb Hct MCV MCH MCHC RDW Plt Count MPV Absolute Neuts (auto) Absolute Lymphs (auto) Absolute Monos (auto) Absolute Eos (auto) Absolute Basos (auto) Neutrophils % Lymphocytes % Monocytes % Eosinophils % Basophils % pCO2 pO2 HCO3 ABG pH ABG O2 Saturation ABG Base Excess ABG Deoxyhemoglobin Oxyhemoglobin % Carboxyhemoglobin % Methemoglobin % Sat Calc Total Hemoglobin Sodium Potassium Chloride Carbon Dioxide Anion Gap BUN Creatinine BUN/Creatinine Ratio POC Glucose 264 H Random Glucose Serum Osmolality Calcium Total Bilirubin AST ALT Alkaline Phosphatase Serum Total Protein Albumin Globulin Albumin/Globulin Ratio Serum Ketones Departure - Departure Clinical Impression: Dehydration DKA (diabetic ketoacidoses) Qualifiers: Diabetes mellitus type: type 1 Diabetes mellitus complication detail: without coma Qualified Code(s): E10.10 - Type 1 diabetes mellitus with ketoacidosis without coma Time of Disposition: 17:30 Disposition: Transfer to Hospital Condition: Fair Referrals: JUSTINO MARQUEZ IV, WORD PROCESSOR [Primary Care Provider] - 1-2 Weeks Home Medications: Ambulatory Orders RX: HYDROcodone 10MG/APAP 325MG [[place] 10/325] 1 ea PO QID 08/12/17 RX: Mometasone Furoate [Elocon] 0.1 % TOP DAILY PRN 11/07/17 RX: Epinephrine [Epipen 2-Mikael] 0.3 mg IJ ONCE PRN #1 pack 03/26/18 RX: Promethazine Tab [Phenergan Tablet] 25 mg PO Q6H PRN #15 tab 07/19/18 RX: Buspirone HCl 30 mg PO BID 10/23/18 RX: Pregabalin [Lyrica] 100 mg PO TID 10/23/18 RX: Venlafaxine HCl [Venlafaxine HCl ER] 300 mg PO DAILY 10/23/18 RX: Diazepam 5 mg PO TID 02/21/19 RX: Insulin Aspart (with Niacinami [Fiasp Flextouch 100 Unit/ml] 100 unit SC ACHS 02/24/19 RX: Insulin Detemir [Levemir Pen] 32 units SUBCU DAILY@0700 02/24/19 RX: Albuterol Inhaler [Ventolin Hfa Inhaler] 1 puff INH BID 02/25/19 RX: Salmeterol Xinafoate [Serevent Diskus] 50 mcg INH DAILY 02/25/19 Ciprofloxacin [Cipro] 250 mg PO Q12H #14 tablet 06/11/19 RX: Promethazine Tab [Phenergan Tablet] 25 mg PO .Q4H #15 tab 07/25/19 Critical Care Note - Critical Care Note Total Time (mins): 45 Transfer to Outside Facility - Transfer Information Decision to Transfer Date: 08/07/19 Decision to Transfer Time: 17:30 Reason for Transfer: required specialist not available Accepting Facility: [facility] - Dr. Alva
[2019-08-07] MEDS: SODIUM CHLORIDE 0.9% 1000ML 1,000 ML IVS PRN (16:37)
[2019-08-07] MEDS: HYDROmorphone HCL INJ 2 MG/ML VIAL IV ONE (16:38)
[2019-08-07] MEDS: INSULIN, REG.(HUMAN) 100 U/ML VIAL IV ONE (16:42)
[2019-08-07] MEDS: SODIUM CHLORIDE 0.9% (FLUSH) 10 ML SYG IV PRN (16:48)
[2019-08-07] MEDS ORDERED: SODIUM CHL 0.9% 250ML (AVIVA) 250 ML IVPB ONE (16:49)
[2019-08-07] MEDS ORDERED: INSULIN, REG.(HUMAN) 100 U/ML VIAL ONE (16:49)
[2019-08-07] MEDS: INSULIN, REG.(HUMAN) 250 UNITS in SODIUM CHL 0.9% 250ML (AVIVA) 247.5 ML IVPB SCH ×2 (17:04)
[2019-08-07] MEDS ORDERED: DEXTROSE 5% 1000ML 1,000 ML IVS PRN (17:47)
[2019-08-07 18:39] VITALS: BP 106/54; O2SAT 95
[2019-08-07] MEDS ORDERED: ONDANSETRON INJ 4 MG/2 ML VIAL ONE (19:04)
[2019-08-07] MEDS: ONDANSETRON INJ 4 MG/2 ML VIAL IV ONE (19:10)
== END 2019-08-07 19:05 | disposition short-term general hospital (02) ==
LOC: ER 14:33
DX: E10.10 Type 1 diabetes mellitus with ketoacidosis without coma (principal); E86.0 Dehydration; R11.2 Nausea with vomiting, unspecified; R00.0 Tachycardia, unspecified; K21.9 Gastro-esophageal reflux disease without esophagitis; F32.9 Major depressive disorder, single episode, unspecified; R56.9 Unspecified convulsions; Z87.891 Personal history of nicotine dependence; Z79.4 Long term (current) use of insulin; Z91.013 Allergy to seafood
CPT/HCPCS: 36415; 36600; 71045; 80053; 82009; 82803; 82805; 82948; 85025; 93005; J1170; J2060; J2405; J7030

== ENCOUNTER 2019-09-09 14:21 | Emergency (ER) | payer MEDICARE, MEDICAID ==
[2019-09-09] MEDS ORDERED: MORPHINE SULFATE INJ 10 MG/ML VIAL IV ONE ×2 (14:40→16:47)
[2019-09-09] MEDS ORDERED: ONDANSETRON INJ 4 MG/2 ML VIAL IV ONE (14:40)
[2019-09-09] MEDS ORDERED: SODIUM CHLORIDE 0.9% 1000ML 1,000 ML IVS ONE ×2 (14:40→16:00)
--- NOTE | 2019-09-09 14:49 | ED.PDOC ---
History of Present Illness - General Chief Complaint: Abdominal Pain Time Seen by Provider: 09/09/19 14:37 Additional Information: Patient is a 44-year-old female who presents to the emergency room with chief complaint of abdominal pain, nausea and vomiting. Patient indicates the nausea and vomiting began last night and the abdominal pain began today. Patient denies hematemesis or bloody or black stools. Patient indicates her abdominal pain is diffuse and moderate in intensity. Patient indicates she is a brittle diabetic and despite taking her insulin she regularly experiences DKA. She indicates that she has been in DKA "41 times" and is worried that she may be in DKA today. Patient denies chest pain, shortness of breath, fever, chills. Patient indicates her blood sugar at home was over 600 this morning. Patient has no other complaints at this time. Review of Systems - Review of Systems Constitutional: Denies: chills, fever EENTM: States: no symptoms reported Respiratory: States: no symptoms reported. Denies: cough, short of breath Cardiology: Denies: chest pain, palpitations Gastrointestinal/Abdominal: States: see HPI, abdominal pain, nausea, vomiting. Denies: diarrhea Genitourinary: States: no symptoms reported. Denies: dysuria Musculoskeletal: States: no symptoms reported. Denies: muscle pain Skin: States: no symptoms reported. Denies: rash Neurological: States: no symptoms reported. Denies: seizure, tremors Endocrine: States: no symptoms reported All other Systems: Reviewed and Negative Past Medical History (General) - Patient Medical History Hx Seizures: Yes Hx Stroke: No Hx Dementia: No Hx Asthma: No Hx of COPD: No Hx Cardiac Disorders: No Hx Congestive Heart Failure: No Hx Pacemaker: No Hx Hypertension: No Hx Thyroid Disease: No Hx Diabetes: Yes Hx Gastroesophageal Reflux: Yes Hx Renal Disease: No Hx Cancer: No Hx of HIV: No Hx Hepatitis C: No Hx MRSA: No MRSA Source:: Wound - Vaccination History Hx Tetanus, Diphtheria Vaccination: No Hx Influenza Vaccination: No Hx Pneumococcal Vaccination: No - Social History Hx Tobacco Use: Yes Hx Chewing Tobacco Use: No Hx Alcohol Use: Yes Hx Substance Use: Yes Hx Substance Use Treatment: No Hx Depression: Yes Hx Physical Abuse: No Hx Emotional Abuse: No Hx Suspected Abuse: No - Female History Hx Last Menstrual Period: 11/05/11 Patient : No Family Medical History - Family History Mother Family History: No Known Name: April Age (years): 70 Living Status: Still Living Hx Family Asthma: No Hx Family Congestive Heart Failure: No Hx Family Hypertension: No Hx Family Stroke: No Hx Cardiac Disease: No Hx Family Diabetes: No Hx Family Cancer: Yes - skin cancer Hx Family;Other: thyroid problems and seizures Father Family History: No Known Name: Marlon Age (years): 68 Living Status: Still Living Hx Family Asthma: - Sister Hx Family Congestive Heart Failure: No Hx Family Hypertension: Yes Hx Family Stroke: No Hx Cardiac Disease: Yes Hx Family Diabetes: No Age of Onset (years of age): 32 Hx Family Cancer: - Grandmother Lymphoma Physical Exam - Physical Exam General Appearance: Agitated, No apparent distress, Well Developed, Well Nourished, Other - She is uncomfortable Eyes, Ears, Nose, Throat Exam: PERRL/EOMI, normal ENT inspection Neck: full range of motion, supple, normal inspection Respiratory: chest non-tender, lungs clear, normal breath sounds, no respiratory distress, no accessory muscle use Cardiovascular/Chest: normal peripheral pulses, regular rate, rhythm, no edema, no gallop, no JVD, no murmur Gastrointestinal/Abdominal: normal bowel sounds, soft, guarding, tenderness - Moderate, diffuse Back Exam: normal inspection, no CVA tenderness Extremity: normal range of motion, non-tender, normal inspection Neurologic: portfolio assistant II-XII nml as tested, no motor/sensory deficits, alert, normal mood/affect, oriented x 3 Skin Exam: normal color, warm/dry Progress - Progress Progress: 09/09/19 14:54 Differential diagnosis includes but is not limited to DKA, electrolyte disorder, bowel obstruction, dehydration. 09/09/19 16:48 Patient reassessed and is feeling slightly better at this time but still has abdominal pain. Patient's labs are unremarkable and she is not in DKA, her CO2 is normal and her anion gap is not elevated. Patient does have a mildly elevated lactic acid but there is no evidence of infection on her work-up. Will give a second liter of fluid which will address patient's glucose and will reassess her lactate but I expect that it will clear. Patient has hematuria and indicates this is a new finding for her and she is no longer on her period. Her CT shows no evidence of renal stones. I discussed with patient that she will need to follow-up with a urologist as an outpatient for further evaluation. Patient now tells me that she has gastroparesis, and with a normal work-up and CT today her symptoms are almost certainly an exacerbation of her gastroparesis. She indicates that she is quite anxious and has not been able to take her anxiolytic medications today, will give Ativan and re-dose morphine and reassess after repeat IV fluids. 09/09/19 18:21 Patient indicated she was feeling hypoglycemic. Finger glucose checked and her blood sugar was 45. Will give D50 and and follow her glucose levels. 09/09/19 18:38 I am told that the hospital does not have any D50 in its supply and I will instead give glucagon 1 mg IV to address patient's immediate glucose needs and begin an IV drip of D10. Patient indicates she is unable to keep any p.o. down as such she cannot take juice or food to address her sugar. She still complains of considerable abdominal cramping and I believe her abdominal symptoms today from are from an acute exacerbation of her gastroparesis. Patient will need observation admission for glucose monitoring, pain control and for IV fluids. Patient indicates she is considerably anxious now that she is unable to take her Xanax p.o. and requests dosing with Ativan. 09/09/19 18:53 I have discussed patient's case with Dr. Covarrubias who indicates that patient is extremely well known to her and to [facility]. She indicates that given patient's extensive history of documented drug-seeking behavior she will need to obtain administration approval before accepting patient for observation. 09/09/19 19:22 I have re-discussed patient's case with Dr. Covarrubias who indicates that due to the inclement weather the hospital is shortstaffed we will not be able to admit Ms. Perkins. I have discussed this with patient and she indicates that she is actually feeling better now and believes that she can take p.o. Patient has not yet been given the D10 and her blood sugar up to 179 following glucagon. Patient now indicates that she does not want to be admitted and that she would like to go home now. She is calling a friend to pick her up and I will recheck her blood sugar at that time and if acceptable and if patient is taking p.o. we will discharge home. 09/09/19 19:56 Patient's blood sugar now is 155, she is taking p.o., her lactic acid has cleared, and she wishes to go home. Will discharge home with follow-up outpatient with her PCP. Vital signs stable, patient is NAD and looks clinically well and I believe is safe for discharge with outpatient follow-up. Follow-up instructions, discharge instructions and return to ED precautions discussed with patient. Patient voices understanding and willingness to comply with instructions. All laboratory and radiographic results have been discussed with the patient, and all questions answered. Patient is happy with plan. - Results/Orders Results/Orders: 09/09/19 14:38 IV:Start .ONCE 09/09/19 14:39 Hold Metformin x 48Hrs [id number] 09/09/19 18:36 Dextrose 10% 1000ML [D10W 1000ml] 1,000 ml IVS .QD 09/09/19 20:00 GLUCOSE, FINGER STICK Q1H 09/09/19 21:00 GLUCOSE, FINGER STICK Q1H Laboratory Results - last 24 hr 09/09/19 09/09/19 09/09/19 14:46 14:55 15:00 WBC 7.2 RBC 4.52 Hgb 12.3 Hct 37.1 MCV 82.0 MCH 27.3 MCHC 33.3 RDW 13.7 Plt Count 250 MPV 8.4 Absolute Neuts (auto) 5.10 Absolute Lymphs (auto) 1.60 Absolute Monos (auto) 0.40 Absolute Eos (auto) 0.10 Absolute Basos (auto) 0.00 Neutrophils % 70.9 Lymphocytes % 22.3 Monocytes % 5.1 Eosinophils % 1.3 Basophils % 0.4 Sodium Potassium Chloride Carbon Dioxide Anion Gap BUN Creatinine BUN/Creatinine Ratio POC Glucose Random Glucose Serum Osmolality Lactic Acid Calcium Total Bilirubin AST ALT Alkaline Phosphatase Serum Total Protein Albumin Globulin Albumin/Globulin Ratio Lipase Serum HCG, Qual Negative Urine Color Yellow Urine Appearance Clear Urine pH 5.0 Ur Specific [place] 1.015 Urine Protein Negative Urine Glucose (UA) >=1000 H Urine Ketones 15 H Urine Blood Moderate H Urine Nitrite Negative Urine Bilirubin Negative Urine Urobilinogen 0.2 Ur Leukocyte Esterase Negative Urine RBC 1-3 Urine WBC 3-5 H Ur Epithelial Cells 5-10 Urine Bacteria Rare 09/09/19 09/09/19 09/09/19 15:00 15:00 16:20 WBC RBC Hgb Hct MCV MCH MCHC RDW Plt Count MPV Absolute Neuts (auto) Absolute Lymphs (auto) Absolute Monos (auto) Absolute Eos (auto) Absolute Basos (auto) Neutrophils % Lymphocytes % Monocytes % Eosinophils % Basophils % Sodium 135 Potassium 5.0 Chloride 101 Carbon Dioxide 23 Anion Gap 16.0 BUN 19 H Creatinine 0.67 BUN/Creatinine Ratio 28.4 H POC Glucose 45 L Random Glucose 364 H Serum Osmolality 287.1 Lactic Acid 2.3 H Calcium 9.4 Total Bilirubin 0.5 AST 21 ALT 31 Alkaline Phosphatase 120 Serum Total Protein 6.4 Albumin 3.7 Globulin 2.7 Albumin/Globulin Ratio 1.4 Lipase 28 Serum HCG, Qual Urine Color Urine Appearance Urine pH Ur Specific [place] Urine Protein Urine Glucose (UA) Urine Ketones Urine Blood Urine Nitrite Urine Bilirubin Urine Urobilinogen Ur Leukocyte Esterase Urine RBC Urine WBC Ur Epithelial Cells Urine Bacteria 09/09/19 09/09/19 09/09/19 17:34 17:34 18:58 WBC RBC Hgb Hct MCV MCH MCHC RDW Plt Count MPV Absolute Neuts (auto) Absolute Lymphs (auto) Absolute Monos (auto) Absolute Eos (auto) Absolute Basos (auto) Neutrophils % Lymphocytes % Monocytes % Eosinophils % Basophils % Sodium 138 Potassium 3.9 Chloride 108 Carbon Dioxide 23 Anion Gap 10.9 L BUN 19 H Creatinine 0.55 L BUN/Creatinine Ratio 34.5 H POC Glucose 170 H D Random Glucose 71 Serum Osmolality 276.4 Lactic Acid 1.4 Calcium 9.0 Total Bilirubin AST ALT Alkaline Phosphatase Serum Total Protein Albumin Globulin Albumin/Globulin Ratio Lipase Serum HCG, Qual Urine Color Urine Appearance Urine pH Ur Specific [place] Urine Protein Urine Glucose (UA) Urine Ketones Urine Blood Urine Nitrite Urine Bilirubin Urine Urobilinogen Ur Leukocyte Esterase Urine RBC Urine WBC Ur Epithelial Cells Urine Bacteria Departure - Departure Clinical Impression: Diabetic gastroparesis associated with type 2 diabetes mellitus Diabetes mellitus with hyperglycemia Qualifiers: Diabetes mellitus type: type 2 Diabetes mellitus detention insulin use: with detention use Qualified Code(s): E11.65 - Type 2 diabetes mellitus with hyperglycemia; Z79.4 - nursing home (current) use of insulin Time of Disposition: 19:53 Disposition: Discharge to Home or Self Care Condition: Fair Departure Forms: ED Discharge - Pt. Copy, Patient Portal Self Enrollment Instructions: DI for Abdominal Pain-Adult, Gastroparesis (Delayed Gastric Emptying) (DC), Type 2 Diabetes Diet: resume usual diet Referrals: JUSTINO MARQUEZ IV, HEPATOLOGIST [Primary Care Provider] - 1-5 Days Home Medications: Ambulatory Orders HYDROcodone 10MG/APAP 325MG [[place] 10/325] 1 ea PO QID 08/12/17 Mometasone Furoate [Elocon] 0.1 % TOP DAILY PRN 11/07/17 Epinephrine [Epipen 2-Mikael] 0.3 mg IJ ONCE PRN #1 pack 03/26/18 Promethazine Tab [Phenergan Tablet] 25 mg PO Q6H PRN #15 tab 07/19/18 Buspirone HCl 30 mg PO BID 10/23/18 Pregabalin [Lyrica] 100 mg PO TID 10/23/18 Venlafaxine HCl [Venlafaxine HCl ER] 300 mg PO DAILY 10/23/18 Diazepam 5 mg PO TID 02/21/19 Insulin Aspart (with Niacinami [Fiasp Flextouch 100 Unit/ml] 100 unit SC ACHS 02/24/19 Insulin Detemir [Levemir Pen] 32 units SUBCU DAILY@0700 02/24/19 Albuterol Inhaler [Ventolin Hfa Inhaler] 1 puff INH BID 02/25/19 Salmeterol Xinafoate [Serevent Diskus] 50 mcg INH DAILY 02/25/19 Ciprofloxacin [Cipro] 250 mg PO Q12H #14 tablet 06/11/19 Promethazine Tab [Phenergan Tablet] 25 mg PO .Q4H #15 tab 07/25/19
[2019-09-09] MEDS ORDERED: INSULIN, REG.(HUMAN) 100 U/ML VIAL SUBCU ONE (15:36)
[2019-09-09] MEDS ORDERED: KETOROLAC TROMETHAMINE INJ 30 MG/ML VIAL IV ONE (15:58)
--- NOTE | 2019-09-09 16:10 | CT ---
EXAM DESCRIPTION: Abdomen/Pelvis w/Contrast: Computed Tomography. CLINICAL HISTORY: 44 years Female abd pain COMPARISON: CT scan of the abdomen and pelvis without IV contrast April 2019. TECHNIQUE: Spiral-axial scans at 5 x 5 mm intervals through the abdomen and pelvis, after nonionic IV contrast without oral contrast. Coronal and sagittal 2.0 mm reconstructions. No delayed scans. No adverse reactions. Total Exam DLP: 426 mGy-cm. This exam was performed according to our departmental dose-optimization program which includes automated exposure control, adjustment of the mA and/or kV according to patient size and/or use of iterative reconstruction technique; to reduce radiation dose to as low as reasonably achievable (ALARA). FINDINGS: Lung bases and pleura: Minimal posterior dependent atelectasis right lower lobe. No lung nodules or pleural effusion. Liver, Stomach, Spleen, Adrenal Glands: Long axis of the right lobe of the liver 21 cm. Decreased enhancement in the lateral segment of the left hepatic lobe, most likely related to fatty infiltration. Stable since the prior study. No focal lesions. Stomach filled with fluid and minimal air. Other solid organs are negative. Pancreas, Gallbladder, Ducts: Surgical clips in the gallbladder fossa with no fluid. No duct dilation. Pancreas negative. Kidneys and Ureters: Unremarkable. Mesentery: No free air or free fluid in the peritoneal cavity. Aorta: Minimal atherosclerotic calcification and intimal wall thickening. Small Bowel: More fluid mid and distal. No fluid air-fluid levels. No significant distention. Terminal Ileum/Cecum: Not distended. Surgical clips on the inferior cecum and appendix not seen. No inflammatory changes. Colon: Minimal fecal material proximally and mostly gas in the transverse colon. Gas and fecal matter in the sigmoid colon with mostly fecal material distally. Pelvic Organs: No adnexal mass or free fluid. Spine and Bony Pelvis: Minimal scoliosis in the spine is stable. Abdominal Wall/Back Soft Tissues: Body piercing in the umbilicus. Small inguinal lymph nodes. IMPRESSION: 1. Hepatomegaly with normal enhancement except for focal steatosis in the lateral segment of the left lobe, stable since the prior study. Smooth capsule and no ascites. No intrahepatic biliary dilatation. Prior cholecystectomy. Electronically signed by: Marlon Proctor MD 09/09/2019 4:09 PM [employer]
[2019-09-09] MEDS ORDERED: DEXTROSE 50% 25 GM/50 ML SYG IV ONE (18:19)
[2019-09-09] MEDS ORDERED: DEXTROSE 10% ONE (18:33)
[2019-09-09] MEDS ORDERED: GLUCAGON INJ 1 MG VIAL ONE (18:34)
[2019-09-09] MEDS ORDERED: DEXTROSE 10% 1000ML 1,000 ML IVS PRN (18:36)
[2019-09-09] MEDS ORDERED: GLUCAGON INJ 1 MG VIAL IV ONE (18:36)
[2019-09-09] MEDS ORDERED: traMADol HCL 50 MG TAB PO ONE (20:00)
[2019-09-09 20:02] VITALS: BP 109/65; TEMP 97.8; O2SAT 99
== END 2019-09-09 20:07 | disposition home or self-care (01) ==
LOC: ER 14:21
DX: E11.43 Type 2 diabetes mellitus with diabetic autonomic (poly)neuropathy (principal); K31.84 Gastroparesis; E11.65 Type 2 diabetes mellitus with hyperglycemia; F32.9 Major depressive disorder, single episode, unspecified; K21.9 Gastro-esophageal reflux disease without esophagitis; R56.9 Unspecified convulsions; Z79.4 Long term (current) use of insulin; Z79.899 Other long term (current) drug therapy; Z87.891 Personal history of nicotine dependence
CPT/HCPCS: 36416; 74177; 80048; 80053; 81001; 82948; 83605; 83690; 84703; 85025; J1610; J1885; J2060; J2270; J2405; J7030; J7799

== ENCOUNTER 2019-09-12 12:03 | Emergency (ER) | payer MEDICARE, MEDICAID ==
[2019-09-12] MEDS ORDERED: SODIUM CHLORIDE 0.9% (FLUSH) 10 ML SYG IV PRN (12:37)
[2019-09-12] MEDS ORDERED: ONDANSETRON INJ 4 MG/2 ML VIAL IV ONE ×2 (12:37→16:12)
[2019-09-12] MEDS ORDERED: SODIUM CHLORIDE 0.9% 1000ML 1,000 ML IVS ONE ×2 (12:37→14:22)
[2019-09-12] MEDS ORDERED: diazePAM INJ 10 MG/2 ML SYG IV ONE (14:27)
[2019-09-12] MEDS ORDERED: HYDROmorphone HCL INJ 2 MG/ML VIAL IV ONE (16:12)
--- NOTE | 2019-09-12 16:42 | ED.PDOC ---
History of Present Illness - General Chief Complaint: Diabetic Complaint Stated Complaint: N/V/D, elevated BS Time Seen by Provider: 09/12/19 12:36 Source: patient, RN notes reviewed, Vital Signs reviewed, family - Mother Exam Limitations: no limitations - History of Present Illness Initial Comments: Patient is a 44-year-old white female who presents with complaints of elevated blood sugar, associated nausea, vomiting and diarrhea. Patient has been unable to hold down any fluids or medicines for the last 24 hours. Additionally patient has abdominal pain. It sharp, stabbing and cramping in nature. It is severe in intensity. It does not radiated. It is midepigastrium. Nothing seems to make the pain better. Patient is unable to hold on her pain medicine so she has had no relief from the pain. It is worse when she tries to eat or drink anything. Timing/Duration: 24 hours Severity: severe Improving Factors: nothing Worsening Factors: eating, movement Associated Symptoms: loss of appetite, malaise, nausea/vomiting, weakness Allergies/Adverse Reactions: Allergies Fish Allergy Allergy (Verified 09/12/19 13:21) peanut Allergy (Severe, Uncoded 07/25/19 21:04) Home Medications: Ambulatory Orders HYDROcodone 10MG/APAP 325MG [[place] 10/325] 1 ea PO QID 08/12/17 Mometasone Furoate [Elocon] 0.1 % TOP DAILY PRN 11/07/17 Epinephrine [Epipen 2-Mikael] 0.3 mg IJ ONCE PRN #1 pack 03/26/18 Promethazine Tab [Phenergan Tablet] 25 mg PO Q6H PRN #15 tab 07/19/18 Buspirone HCl 30 mg PO BID 10/23/18 Pregabalin [Lyrica] 100 mg PO TID 10/23/18 Venlafaxine HCl [Venlafaxine HCl ER] 300 mg PO DAILY 10/23/18 Diazepam 5 mg PO TID 02/21/19 Insulin Aspart (with Niacinami [Fiasp Flextouch 100 Unit/ml] 100 unit SC ACHS 02/24/19 Insulin Detemir [Levemir Pen] 32 units SUBCU DAILY@0700 02/24/19 Albuterol Inhaler [Ventolin Hfa Inhaler] 1 puff INH BID 02/25/19 Salmeterol Xinafoate [Serevent Diskus] 50 mcg INH DAILY 02/25/19 Ciprofloxacin [Cipro] 250 mg PO Q12H #14 tablet 06/11/19 Promethazine Tab [Phenergan Tablet] 25 mg PO .Q4H #15 tab 07/25/19 Ondansetron Odt [Zofran ODT] 8 mg PO Q6H #20 tab 09/12/19 Review of Systems - Review of Systems Constitutional: States: see HPI, malaise, weakness. Denies: chills, fever EENTM: States: no symptoms reported. Denies: blurred vision, nose congestion, mouth swelling Respiratory: States: no symptoms reported. Denies: cough, short of breath, wheezing Cardiology: States: no symptoms reported. Denies: chest pain, palpitations, syncope Gastrointestinal/Abdominal: States: see HPI, abdominal pain, diarrhea, nausea, vomiting Genitourinary: States: no symptoms reported. Denies: dysuria, frequency, pain Musculoskeletal: States: no symptoms reported. Denies: back pain, joint pain, joint swelling, muscle pain, muscle stiffness, neck pain Neurological: States: no symptoms reported Endocrine: States: no symptoms reported Hematologic/Lymphatic: States: no symptoms reported All other Systems: Reviewed and Negative Past Medical History (General) - Patient Medical History Hx Seizures: Yes Hx Stroke: No Hx Dementia: No Hx Asthma: Yes Hx of COPD: No Hx Cardiac Disorders: No Hx Congestive Heart Failure: No Hx Pacemaker: No Hx Hypertension: No Hx Thyroid Disease: No Hx Diabetes: Yes Hx Gastroesophageal Reflux: Yes Hx Renal Disease: No Hx Cancer: No Hx of HIV: No Hx Hepatitis C: No Hx MRSA: Yes - 2019 MRSA Source:: Wound Surgical History: appendectomy, cholecystectomy, Hysterectomy, other - Vaccination History Hx Tetanus, Diphtheria Vaccination: No Hx Influenza Vaccination: Yes Hx Pneumococcal Vaccination: Yes - Social History Hx Tobacco Use: Yes Hx Chewing Tobacco Use: No Hx Alcohol Use: Yes Hx Substance Use: Yes Hx Substance Use Treatment: No Hx Depression: Yes Hx Physical Abuse: No Hx Emotional Abuse: No Hx Suspected Abuse: No - Female History Patient is a Female of Child Bearing Age (10 -59 yrs old): Yes Hx Last Menstrual Period: 11/05/11 Patient : Yes Family Medical History - Family History Mother Family History: No Known Name: April Age (years): 70 Living Status: Still Living Hx Family Asthma: No Hx Family Congestive Heart Failure: No Hx Family Hypertension: No Hx Family Stroke: No Hx Cardiac Disease: No Hx Family Diabetes: No Hx Family Cancer: Yes - skin cancer Hx Family;Other: thyroid problems and seizures Father Family History: No Known Name: Marlon Age (years): 68 Living Status: Still Living Hx Family Asthma: - Sister Hx Family Congestive Heart Failure: No Hx Family Hypertension: Yes Hx Family Stroke: No Hx Cardiac Disease: Yes Hx Family Diabetes: No Age of Onset (years of age): 32 Hx Family Cancer: - Grandmother Lymphoma Physical Exam - Physical Exam General Appearance: Alert, Anxious, Obvious distress, Well Developed, Well Groomed, Well Hydrated, Well Nourished Eye Exam: bilateral normal Ears, Nose, Throat: hearing grossly normal, normal ENT inspection, normal pharynx - Except for dry mucous membranes. Neck: non-tender, full range of motion, supple, normal inspection Respiratory: chest non-tender, lungs clear, normal breath sounds, no respiratory distress, no accessory muscle use Cardiovascular/Chest: normal peripheral pulses, no edema, no gallop, no JVD, no murmur, tachycardia Peripheral Pulses: radial,right: 2+, radial,left: 2+ Gastrointestinal/Abdominal: normal bowel sounds, soft, tenderness - Generalized around the midepigastrium. No surgical abdomen. 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 09/12/19 17:13 Patient is feeling much better after her blood sugars are come down with IV fluids. Her blood sugars now less than 200. CT scan is improved. She has not had any vomiting while here in the department. It appears that she was significantly dehydrated but with 2 L of fluid I believe she is adequately rehydrated and plan on discharge home at this time. I discussed this plan of care with the patient and her mother and they voiced understanding and agreement. Hao Zambrano M.D. #[id number] - Results/Orders Results/Orders: 09/12/19 12:37 Sodium Chloride 0.9% (Flush) [Saline Flush Syringe] 10 ml IV PRN PRN 09/12/19 12:45 EKG STAT 09/12/19 16:11 Abdomen/Pelvis w/Contrast [CT] Stat 09/12/19 16:12 Hold Metformin x 48Hrs [id number] 09/12/19 16:15 EKG STAT Laboratory Results - last 24 hr 09/12/19 09/12/19 09/12/19 12:14 12:37 12:37 WBC 7.3 RBC 5.09 Hgb 13.7 Hct 41.5 MCV 81.5 MCH 26.8 L MCHC 32.9 L RDW 13.6 Plt Count 313 MPV 8.5 Absolute Neuts (auto) 4.20 Absolute Lymphs (auto) 2.20 Absolute Monos (auto) 0.40 Absolute Eos (auto) 0.40 Absolute Basos (auto) 0.00 Neutrophils % 57.8 Lymphocytes % 30.4 Monocytes % 5.6 Eosinophils % 5.6 H Basophils % 0.6 Sodium 136 Potassium 4.3 Chloride 104 Carbon Dioxide 22 Anion Gap 14.3 BUN 14 Creatinine 0.55 L BUN/Creatinine Ratio 25.5 H POC Glucose 229 H D Random Glucose 230 H D Serum Osmolality 279.7 Calcium 9.0 Total Bilirubin 0.3 Direct Bilirubin < 0.1 Indirect Bilirubin 0.2 AST 24 ALT 24 Alkaline Phosphatase 127 H Serum Total Protein 7.1 Albumin 4.0 Lipase 66 H D Urine Color Urine Appearance Urine pH Ur Specific [place] Urine Protein Urine Glucose (UA) Urine Ketones Urine Blood Urine Nitrite Urine Bilirubin Urine Urobilinogen Ur Leukocyte Esterase Urine RBC Urine WBC Ur Epithelial Cells Urine Bacteria Urine Opiates Screen Urine Barbiturates Ur Phencyclidine Scrn U Amphetamin/Meth Scrn U Benzodiazepines Scrn U Cocaine Metab Screen U Cannabinoids Screen 09/12/19 09/12/19 09/12/19 13:27 13:56 16:02 WBC RBC Hgb Hct MCV MCH MCHC RDW Plt Count MPV Absolute Neuts (auto) Absolute Lymphs (auto) Absolute Monos (auto) Absolute Eos (auto) Absolute Basos (auto) Neutrophils % Lymphocytes % Monocytes % Eosinophils % Basophils % Sodium Potassium Chloride Carbon Dioxide Anion Gap BUN Creatinine BUN/Creatinine Ratio POC Glucose 149 H D Random Glucose Serum Osmolality Calcium Total Bilirubin Direct Bilirubin Indirect Bilirubin AST ALT Alkaline Phosphatase Serum Total Protein Albumin Lipase Urine Color Yellow Urine Appearance Clear Urine pH 5.5 Ur Specific [place] 1.025 Urine Protein 30 Urine Glucose (UA) >=1000 H Urine Ketones Negative Urine Blood Moderate H Urine Nitrite Negative Urine Bilirubin Negative Urine Urobilinogen 0.2 Ur Leukocyte Esterase Negative Urine RBC 3-5 H Urine WBC 0 Ur Epithelial Cells 3-5 Urine Bacteria Rare Urine Opiates Screen Positive H Urine Barbiturates Negative Ur Phencyclidine Scrn Negative U Amphetamin/Meth Scrn Negative U Benzodiazepines Scrn Positive H U Cocaine Metab Screen Negative U Cannabinoids Screen Negative EKG performed on 12 September 2019 at 1255 hrs.: Normal sinus rhythm at 91 bpm, low voltage QRS, septal infarct, age indeterminate, abnormal EKG. There is no comparison EKG available. EXAM: CT Abdomen and Pelvis With Intravenous Contrast CLINICAL HISTORY: mid abdominal pain, elevated lipase TECHNIQUE: Axial computed tomography images of the abdomen and pelvis with intravenous contrast. Sagittal and coronal reformatted images were created and reviewed. This CT exam was performed using one or more of the following dose reduction techniques: automated exposure control, adjustment of the mA and/or kV according to patient size, and/or use of iterative reconstruction technique. COMPARISON: 09/09/2019. FINDINGS: Lung bases: Unremarkable. No mass. No consolidation. ABDOMEN: Liver: Stable mild enlargement and local left lobe fatty replacement. No mass. Gallbladder and bile ducts: Cholecystectomy. No ductal dilation. Pancreas: Homogeneous enhancement of the pancreas. No peripancreatic inflammation noted. No ductal dilation. Spleen: Unremarkable. No splenomegaly. Adrenals: Unremarkable. No mass. Kidneys and ureters: Unremarkable. No solid mass. No hydronephrosis. Stomach and bowel: Unremarkable. No obstruction. No mucosal thickening. PELVIS: Appendix: Appendectomy. Bladder: Unremarkable. No mass. Reproductive: Unremarkable as visualized. ABDOMEN and PELVIS: Intraperitoneal space: Unremarkable. No free air. No significant fluid collection. Bones/joints: No acute osseous abnormality. Questionable fracture of the right L2 lamina. No dislocation. Soft tissues: Unremarkable. Vasculature: Mild atherosclerosis of the distal aorta. No aneurysm or dissection. Lymph nodes: Unremarkable. No enlarged lymph nodes. IMPRESSION: No acute findings in the abdomen or pelvis. Electronically signed by: Patricia Mora MD 09/12/2019 4:45 PM Departure - Departure Clinical Impression: Dehydration, Hyperglycemia, Gastroenteritis Abdominal pain Qualifiers: Abdominal location: generalized Qualified Code(s): R10.84 - Generalized abdominal pain Time of Disposition: 17:15 Disposition: Discharge to Home or Self Care Condition: Good Departure Forms: ED Discharge - Pt. Copy, Patient Portal Self Enrollment Instructions: DI for Diabetes Type 2, Viral Gastroenteritis, Adult (DC), Dehydration, Adult (DC) Diet: full liquid diet Activity: increase activity as tolerated Referrals: JUSTINO MARQUEZ IV, CHEMICAL TREATMENT OPERATOR [Primary Care Provider] - 1-5 Days Prescriptions: Ondansetron Odt [Zofran ODT] 8 mg PO Q6H #20 tab Home Medications: Ambulatory Orders HYDROcodone 10MG/APAP 325MG [[place] 10/325] 1 ea PO QID 08/12/17 Mometasone Furoate [Elocon] 0.1 % TOP DAILY PRN 11/07/17 Epinephrine [Epipen 2-Mikael] 0.3 mg IJ ONCE PRN #1 pack 03/26/18 Promethazine Tab [Phenergan Tablet] 25 mg PO Q6H PRN #15 tab 07/19/18 Buspirone HCl 30 mg PO BID 10/23/18 Pregabalin [Lyrica] 100 mg PO TID 10/23/18 Venlafaxine HCl [Venlafaxine HCl ER] 300 mg PO DAILY 10/23/18 Diazepam 5 mg PO TID 02/21/19 Insulin Aspart (with Niacinami [Fiasp Flextouch 100 Unit/ml] 100 unit SC ACHS 02/24/19 Insulin Detemir [Levemir Pen] 32 units SUBCU DAILY@0700 02/24/19 Albuterol Inhaler [Ventolin Hfa Inhaler] 1 puff INH BID 02/25/19 Salmeterol Xinafoate [Serevent Diskus] 50 mcg INH DAILY 02/25/19 Ciprofloxacin [Cipro] 250 mg PO Q12H #14 tablet 06/11/19 Promethazine Tab [Phenergan Tablet] 25 mg PO .Q4H #15 tab 07/25/19 Ondansetron Odt [Zofran ODT] 8 mg PO Q6H #20 tab 09/12/19
--- NOTE | 2019-09-12 16:46 | CT ---
EXAM: CT Abdomen and Pelvis With Intravenous Contrast CLINICAL HISTORY: mid abdominal pain, elevated lipase TECHNIQUE: Axial computed tomography images of the abdomen and pelvis with intravenous contrast. Sagittal and coronal reformatted images were created and reviewed. This CT exam was performed using one or more of the following dose reduction techniques: automated exposure control, adjustment of the mA and/or kV according to patient size, and/or use of iterative reconstruction technique. COMPARISON: 09/09/2019. FINDINGS: Lung bases: Unremarkable. No mass. No consolidation. ABDOMEN: Liver: Stable mild enlargement and local left lobe fatty replacement. No mass. Gallbladder and bile ducts: Cholecystectomy. No ductal dilation. Pancreas: Homogeneous enhancement of the pancreas. No peripancreatic inflammation noted. No ductal dilation. Spleen: Unremarkable. No splenomegaly. Adrenals: Unremarkable. No mass. Kidneys and ureters: Unremarkable. No solid mass. No hydronephrosis. Stomach and bowel: Unremarkable. No obstruction. No mucosal thickening. PELVIS: Appendix: Appendectomy. Bladder: Unremarkable. No mass. Reproductive: Unremarkable as visualized. ABDOMEN and PELVIS: Intraperitoneal space: Unremarkable. No free air. No significant fluid collection. Bones/joints: No acute osseous abnormality. Questionable fracture of the right L2 lamina. No dislocation. Soft tissues: Unremarkable. Vasculature: Mild atherosclerosis of the distal aorta. No aneurysm or dissection. Lymph nodes: Unremarkable. No enlarged lymph nodes. IMPRESSION: No acute findings in the abdomen or pelvis. Electronically signed by: Patricia Mora MD 09/12/2019 4:45 PM [employer]
[2019-09-12 19:17] VITALS: O2SAT 96
[2019-09-12 19:19] VITALS: BP 122/91; TEMP 97.3
== END 2019-09-12 17:40 | disposition home or self-care (01) ==
LOC: ER 12:03
DX: K52.9 Noninfective gastroenteritis and colitis, unspecified (principal); E86.0 Dehydration; E11.65 Type 2 diabetes mellitus with hyperglycemia; R56.9 Unspecified convulsions; J45.909 Unspecified asthma, uncomplicated; K21.9 Gastro-esophageal reflux disease without esophagitis; Z90.49 Acquired absence of other specified parts of digestive tract; F32.9 Major depressive disorder, single episode, unspecified; Z87.891 Personal history of nicotine dependence; Z79.4 Long term (current) use of insulin; Z79.899 Other long term (current) drug therapy
CPT/HCPCS: 36415; 36416; 74177; 80048; 80076; 80307; 81001; 82948; 83690; 85025; 93005; J1170; J2405; J3360; J7030

== ENCOUNTER 2019-09-21 16:29 | Emergency (ER) | payer MEDICARE, MEDICAID ==
[2019-09-21] MEDS ORDERED: INSULIN, REG.(HUMAN) 100 U/ML VIAL SUBCU ONE (16:39)
[2019-09-21] MEDS ORDERED: SODIUM CHLORIDE 0.9% 1000ML 1,000 ML IVS ONE (16:39)
[2019-09-21] MEDS ORDERED: BUTORPHANOL TARTRATE 2 MG/ML VIAL IV ONE (16:40)
[2019-09-21] MEDS ORDERED: ONDANSETRON INJ 4 MG/2 ML VIAL IV ONE (16:40)
[2019-09-21] MEDS ORDERED: diphenhydrAMINE HCL 50 MG/ML VIAL IV ONE (16:46)
--- NOTE | 2019-09-21 16:53 | RAD ---
EXAM DESCRIPTION: Chest,1 View CLINICAL HISTORY: 44 years Female, sob COMPARISON: None. TECHNIQUE: AP portable chest. FINDINGS: Heart size is normal with normal pulmonary vascularity. No consolidating infiltrate. No pulmonary mass or worrisome nodule. No pneumothorax or pleural effusion. Bones are unremarkable. IMPRESSION: No acute process is identified in the chest. Electronically signed by: Tera Luis MD 09/21/2019 4:51 PM CIRCLE EDGER
[2019-09-21 18:18] VITALS: TEMP 97.7
[2019-09-21 18:20] VITALS: BP 90/56; O2SAT 95
--- NOTE | 2019-09-21 18:41 | ED.PDOC ---
History of Present Illness - General Chief Complaint: Diabetic Complaint Stated Complaint: lethargic Time Seen by Provider: 09/21/19 16:37 Source: patient Exam Limitations: no limitations - History of Present Illness Initial Comments: The patient is a 44-year-old female well-known to the emergency room presenting secondary to generalized abdominal cramps and refractory hypoglycemia. The patient reports that her blood sugars have been too high to measure for a couple of days. She did take her insulin this morning. She did take some insulin around 1 PM as well. Blood sugars are still too high to register on a normal unit. She is having some abdominal cramping. She does feel tired but no altered mental status. No syncope or near syncope. No chest pain. No shortness of breath. The patient has had multiple procedures recently. These are primarily geared towards chronic pain. Timing/Duration: 24 hours Severity: moderate Improving Factors: nothing Worsening Factors: nothing Associated Symptoms: loss of appetite, malaise, nausea/vomiting Allergies/Adverse Reactions: Allergies Fish Allergy Allergy (Verified 09/12/19 13:21) peanut Allergy (Severe, Uncoded 07/25/19 21:04) Home Medications: Ambulatory Orders HYDROcodone 10MG/APAP 325MG [[place] 10/325] 1 ea PO QID 08/12/17 Mometasone Furoate [Elocon] 0.1 % TOP DAILY PRN 11/07/17 Epinephrine [Epipen 2-Mikael] 0.3 mg IJ ONCE PRN #1 pack 03/26/18 Promethazine Tab [Phenergan Tablet] 25 mg PO Q6H PRN #15 tab 07/19/18 Buspirone HCl 30 mg PO BID 10/23/18 Pregabalin [Lyrica] 100 mg PO TID 10/23/18 Venlafaxine HCl [Venlafaxine HCl ER] 300 mg PO DAILY 10/23/18 Diazepam 5 mg PO TID 02/21/19 Insulin Aspart (with Niacinami [Fiasp Flextouch 100 Unit/ml] 100 unit SC ACHS 02/24/19 Insulin Detemir [Levemir Pen] 32 units SUBCU DAILY@0700 02/24/19 Albuterol Inhaler [Ventolin Hfa Inhaler] 1 puff INH BID 02/25/19 Salmeterol Xinafoate [Serevent Diskus] 50 mcg INH DAILY 02/25/19 Ciprofloxacin [Cipro] 250 mg PO Q12H #14 tablet 06/11/19 Promethazine Tab [Phenergan Tablet] 25 mg PO .Q4H #15 tab 07/25/19 Ondansetron Odt [Zofran ODT] 8 mg PO Q6H #20 tab 09/12/19 Review of Systems - Review of Systems Constitutional: States: malaise EENTM: States: no symptoms reported Respiratory: States: no symptoms reported Cardiology: States: no symptoms reported Gastrointestinal/Abdominal: States: abdominal pain, nausea Genitourinary: States: no symptoms reported Musculoskeletal: States: back pain - Chronic Skin: States: no symptoms reported Neurological: States: no symptoms reported - Chronic issues Endocrine: States: increased thirst All other Systems: No Change from Baseline Past Medical History (General) - Patient Medical History Hx Seizures: Yes Hx Stroke: No Hx Dementia: No Hx Asthma: Yes Hx of COPD: No Hx Cardiac Disorders: No Hx Congestive Heart Failure: No Hx Pacemaker: No Hx Hypertension: No Hx Thyroid Disease: No Hx Diabetes: Yes Hx Gastroesophageal Reflux: Yes Hx Renal Disease: No Hx Cancer: No Hx of HIV: No Hx Hepatitis C: No Hx MRSA: Yes - 2018 MRSA Source:: Wound - Vaccination History Hx Tetanus, Diphtheria Vaccination: No Hx Influenza Vaccination: Yes Hx Pneumococcal Vaccination: Yes - Social History Hx Tobacco Use: Yes Hx Chewing Tobacco Use: No Hx Alcohol Use: Yes Hx Substance Use: Yes Hx Substance Use Treatment: No Hx Depression: Yes Hx Physical Abuse: No Hx Emotional Abuse: No Hx Suspected Abuse: No - Female History Hx Last Menstrual Period: 11/05/11 Patient : Yes Family Medical History - Family History Mother Family History: No Known Name: April Age (years): 70 Living Status: Still Living Hx Family Asthma: No Hx Family Congestive Heart Failure: No Hx Family Hypertension: No Hx Family Stroke: No Hx Cardiac Disease: No Hx Family Diabetes: No Hx Family Cancer: Yes - skin cancer Hx Family;Other: thyroid problems and seizures Father Family History: No Known Name: Marlon Age (years): 68 Living Status: Still Living Hx Family Asthma: - Sister Hx Family Congestive Heart Failure: No Hx Family Hypertension: Yes Hx Family Stroke: No Hx Cardiac Disease: Yes Hx Family Diabetes: No Age of Onset (years of age): 32 Hx Family Cancer: - Grandmother Lymphoma Physical Exam - Physical Exam General Appearance: Agitated - Subdued, Alert, Comfortable, No apparent distress Eye Exam: bilateral normal Ears, Nose, Throat: hearing grossly normal, normal ENT inspection, other - Chronic torticollis looking to the left Neck: full range of motion, supple Respiratory: lungs clear, normal breath sounds, no respiratory distress, no accessory muscle use Cardiovascular/Chest: normal peripheral pulses, regular rate, rhythm, no edema Peripheral Pulses: radial,right: 2+, radial,left: 2+, dorsalis pedis,right: 2+, dorsalis pedis,left: 2+ Gastrointestinal/Abdominal: non tender, soft Rectal Exam: deferred Back Exam: no CVA tenderness, no vertebral tenderness Extremity: normal range of motion, non-tender, normal inspection, no pedal edema, normal capillary refill Neurologic: pit recorder II-XII nml as tested, alert, normal mood/affect, oriented x 3 Skin Exam: normal color Comments: Vital Signs - 24 hr 09/21/19 09/21/19 16:35 17:29 Temperature 97.7 F Pulse Rate [ 89 95 H Pulse Ox] Respiratory 18 16 Rate Blood Pressure 112/78 90/56 [L Arm] O2 Sat by Pulse 98 95 Oximetry Progress - Progress Progress: 09/21/19 18:41 The patient is a 44-year-old female presenting to the emergency room secondary to uncontrolled diabetes with hyperglycemia and mild dehydration causing worsening of her chronic abdominal pain. She has received a dose of nausea medications as well as a dose of pain medications and a liter of IV fluids along with some IV insulin. Blood sugars are coming down. The patient has had many years of dealing with her diabetes. She is feeling much better at this point and should be able to follow and manage her blood sugars at home. She does need to maintain a diabetic diet and keep her self well-hydrated. Keep follow-up with numerous specialists. Follow-up with primary care doctor within the next couple of days. ER warnings are given. lana anderson [phone] - Results/Orders Results/Orders: Laboratory Tests 09/21/19 09/21/19 09/21/19 16:20 16:50 16:55 WBC RBC Hgb Hct MCV MCH MCHC RDW Plt Count MPV Absolute Neuts (auto) Absolute Lymphs (auto) Absolute Monos (auto) Absolute Eos (auto) Absolute Basos (auto) Neutrophils % Lymphocytes % Monocytes % Eosinophils % Basophils % Sodium 131 L Potassium 4.9 Chloride 100 L Carbon Dioxide 21 Anion Gap 14.9 BUN 18 Creatinine 0.79 BUN/Creatinine Ratio 22.8 H Random Glucose 611 H* Serum Osmolality 293.0 Calcium 9.2 Total Bilirubin 0.5 AST 17 ALT 31 Alkaline Phosphatase 149 H Serum Total Protein 6.9 Albumin 3.9 Globulin 3.0 Albumin/Globulin Ratio 1.3 Amylase 52 Urine Color Yellow Urine Appearance Clear Urine pH 5.0 Ur Specific [place] 1.010 Urine Protein Negative Urine Glucose (UA) >=1000 H Urine Ketones 40 H Urine Blood Small H Urine Nitrite Negative Urine Bilirubin Negative Urine Urobilinogen 0.2 Ur Leukocyte Esterase Negative Urine RBC 0-1 Urine WBC 0-1 Ur Epithelial Cells 5-10 Urine Bacteria Rare Urine HCG, Qual Negative 09/21/19 16:55 WBC 7.7 RBC 4.84 Hgb 13.2 Hct 39.8 MCV 82.2 MCH 27.2 MCHC 33.1 RDW 13.5 Plt Count 281 MPV 8.3 Absolute Neuts (auto) 5.40 Absolute Lymphs (auto) 1.70 Absolute Monos (auto) 0.30 Absolute Eos (auto) 0.20 Absolute Basos (auto) 0.10 Neutrophils % 70.5 Lymphocytes % 22.6 Monocytes % 3.9 Eosinophils % 2.2 Basophils % 0.8 Sodium Potassium Chloride Carbon Dioxide Anion Gap BUN Creatinine BUN/Creatinine Ratio Random Glucose Serum Osmolality Calcium Total Bilirubin AST ALT Alkaline Phosphatase Serum Total Protein Albumin Globulin Albumin/Globulin Ratio Amylase Urine Color Urine Appearance Urine pH Ur Specific [place] Urine Protein Urine Glucose (UA) Urine Ketones Urine Blood Urine Nitrite Urine Bilirubin Urine Urobilinogen Ur Leukocyte Esterase Urine RBC Urine WBC Ur Epithelial Cells Urine Bacteria Urine HCG, Qual Chest x-ray shows no acute pathology. Repeat glucose is 284. Departure - Departure Clinical Impression: Uncontrolled insulin dependent diabetes mellitus, Dehydration, Chronic abdominal pain Disposition: Discharge to Home or Self Care Condition: Fair Departure Forms: ED Discharge - Pt. Copy, Patient Portal Self Enrollment Instructions: DI for Diabetes Type 1 -- Adult Diet: diabetic diet Activity: increase activity as tolerated Referrals: JUSTINO MARQUEZ IV, HUMAN RESOURCES SPECIALIST [Primary Care Provider] - 1-2 Weeks Home Medications: Ambulatory Orders HYDROcodone 10MG/APAP 325MG [[place] 10/325] 1 ea PO QID 08/12/17 Mometasone Furoate [Elocon] 0.1 % TOP DAILY PRN 11/07/17 Epinephrine [Epipen 2-Mikael] 0.3 mg IJ ONCE PRN #1 pack 03/26/18 Promethazine Tab [Phenergan Tablet] 25 mg PO Q6H PRN #15 tab 07/19/18 Buspirone HCl 30 mg PO BID 10/23/18 Pregabalin [Lyrica] 100 mg PO TID 10/23/18 Venlafaxine HCl [Venlafaxine HCl ER] 300 mg PO DAILY 10/23/18 Diazepam 5 mg PO TID 02/21/19 Insulin Aspart (with Niacinami [Fiasp Flextouch 100 Unit/ml] 100 unit SC ACHS 02/24/19 Insulin Detemir [Levemir Pen] 32 units SUBCU DAILY@0700 02/24/19 Albuterol Inhaler [Ventolin Hfa Inhaler] 1 puff INH BID 02/25/19 Salmeterol Xinafoate [Serevent Diskus] 50 mcg INH DAILY 02/25/19 Ciprofloxacin [Cipro] 250 mg PO Q12H #14 tablet 06/11/19 Promethazine Tab [Phenergan Tablet] 25 mg PO .Q4H #15 tab 07/25/19 Ondansetron Odt [Zofran ODT] 8 mg PO Q6H #20 tab 09/12/19 Additional Instructions: The patient is a 44-year-old female presenting to the emergency room secondary to uncontrolled diabetes with hyperglycemia and mild dehydration causing worsening of her chronic abdominal pain. She has received a dose of nausea medications as well as a dose of pain medications and a liter of IV fluids along with some IV insulin. Blood sugars are coming down. The patient has had many years of dealing with her diabetes. She is feeling much better at this point and should be able to follow and manage her blood sugars at home. She does need to maintain a diabetic diet and keep her self well-hydrated. Keep follow-up with numerous specialists. Follow-up with primary care doctor within the next couple of days. ER warnings are given.
== END 2019-09-21 18:47 | disposition home or self-care (01) ==
LOC: ER 16:29
DX: E11.65 Type 2 diabetes mellitus with hyperglycemia (principal); E86.0 Dehydration; G89.29 Other chronic pain; R10.84 Generalized abdominal pain; R56.9 Unspecified convulsions; J45.909 Unspecified asthma, uncomplicated; K21.9 Gastro-esophageal reflux disease without esophagitis; F32.9 Major depressive disorder, single episode, unspecified; Z79.4 Long term (current) use of insulin; Z87.891 Personal history of nicotine dependence; Z79.899 Other long term (current) drug therapy; Z91.013 Allergy to seafood
CPT/HCPCS: 36416; 71045; 80053; 81001; 81025; 82150; 82948; 83690; 83735; 85025; J0595; J1200; J2405; J7030

== ENCOUNTER 2019-10-16 | Emergency (ER) | payer MEDICARE, MEDICAID | END 2019-10-16 22:38 | disposition home or self-care (01) | DX: K52.9 Noninfective gastroenteritis and colitis, unspecified (principal); R31.9 Hematuria, unspecified; G89.29 Other chronic pain; R10.9 Unspecified abdominal pain; J45.909 Unspecified asthma, uncomplicated; E11.9 Type 2 diabetes mellitus without complications; R53.81 Other malaise; K21.9 Gastro-esophageal reflux disease without esophagitis; F32.9 Major depressive disorder, single episode, unspecified; R56.9 Unspecified convulsions; Z87.891 Personal history of nicotine dependence ==

== ENCOUNTER 2019-11-11 17:36 | Emergency (ER) | payer MEDICARE, MEDICAID ==
--- NOTE | 2019-11-11 17:45 | ED.PDOC ---
History of Present Illness - General Time Seen by Provider: 11/11/19 17:37 Source: RN notes reviewed, Vital Signs reviewed, old records Exam Limitations: no limitations Additional Information: 44 y/o Type 1 DM with two history of L sided abd pain and painful breathing. She has been throwing up meds today. she took her morning insulin and 10 u this afternoon when she found her BS to be >400. Denies fever, chills, dysuria. She has her usual smoker's cough but nothing more. She is afraid she is in DKA - History of Present Illness Timing/Duration: 24 hours Severity: moderate Improving Factors: nothing Worsening Factors: other - breathing is painful Associated Symptoms: cough - baseline smoker's cough, nausea/vomiting Allergies/Adverse Reactions: Allergies Fish Allergy Allergy (Verified 10/07/19 23:23) peanut Allergy (Severe, Uncoded 10/07/19 23:23) Home Medications: Ambulatory Orders Mometasone Furoate [[place]] 0.1 % TOP DAILY PRN 11/07/17 Epinephrine [Epipen 2-Mikael] 0.3 mg IJ ONCE PRN #1 pack 03/26/18 Buspirone HCl 30 mg PO BID 10/23/18 Diazepam 5 mg PO TID 02/21/19 Insulin Aspart (with Niacinami [Fiasp Flextouch 100 Unit/ml] 100 unit SC ACHS 02/24/19 Insulin Detemir [Levemir Pen] 32 units SUBCU DAILY@0700 02/24/19 Albuterol Inhaler [Ventolin Hfa Inhaler] 1 puff INH BID 02/25/19 Salmeterol Xinafoate [Serevent Diskus] 50 mcg INH DAILY 02/25/19 Promethazine Tab [Phenergan Tablet] 25 mg PO .Q4H #15 tab 07/25/19 Ondansetron Odt [Zofran ODT] 8 mg PO Q6H #20 tab 09/12/19 Ibuprofen 600 mg PO Q6H PRN #20 tab 10/16/19 Gabapentin 300 mg PO TID 11/11/19 Hydrocodone-Acetaminophen [[place] 7.5-325 mg] 1 tab PO PRN 11/11/19 Vilazodone HCl [Viibryd] 40 mg PO DAILY 11/11/19 tiZANidine [Zanaflex] 12 mg PO PRN 11/11/19 Review of Systems - Review of Systems Constitutional: States: see HPI EENTM: Denies: eye pain, blurred vision, nose congestion, throat pain Respiratory: States: see HPI, other - breathing fast but not SOB Cardiology: Denies: chest pain, palpitations Gastrointestinal/Abdominal: States: abdominal pain, nausea, vomiting. Denies: constipation, diarrhea Genitourinary: Denies: discharge, dysuria, frequency, hematuria, pain Musculoskeletal: States: back pain. Denies: joint swelling, neck pain Neurological: States: anxiety. Denies: headache, numbness, paresthesia, weakness Endocrine: States: no symptoms reported, see HPI Past Medical History (General) - Patient Medical History Hx Seizures: Yes Hx Stroke: No Hx Dementia: No Hx Asthma: Yes Hx of COPD: No Hx Cardiac Disorders: No Hx Congestive Heart Failure: No Hx Pacemaker: No Hx Hypertension: No Hx Thyroid Disease: No Hx Diabetes: Yes Hx Gastroesophageal Reflux: Yes Hx Renal Disease: No Hx Cancer: No Hx of HIV: No Hx Hepatitis C: No Hx MRSA: Yes - 2019 MRSA Source:: Wound - Vaccination History Hx Tetanus, Diphtheria Vaccination: No Hx Influenza Vaccination: Yes Hx Pneumococcal Vaccination: Yes - Social History Hx Tobacco Use: Yes Hx Chewing Tobacco Use: No Hx Alcohol Use: Yes Hx Substance Use: Yes Hx Substance Use Treatment: No Hx Depression: Yes Hx Physical Abuse: No Hx Emotional Abuse: No Hx Suspected Abuse: No - Female History Hx Last Menstrual Period: 11/05/11 Patient : Yes Family Medical History - Family History Mother Family History: No Known Name: April Age (years): 70 Living Status: Still Living Hx Family Asthma: No Hx Family Congestive Heart Failure: No Hx Family Hypertension: No Hx Family Stroke: No Hx Cardiac Disease: No Hx Family Diabetes: No Hx Family Cancer: Yes - skin cancer Hx Family;Other: thyroid problems and seizures Father Family History: No Known Name: Marlon Age (years): 68 Living Status: Still Living Hx Family Asthma: - Sister Hx Family Congestive Heart Failure: No Hx Family Hypertension: Yes Hx Family Stroke: No Hx Cardiac Disease: Yes Hx Family Diabetes: No Age of Onset (years of age): 32 Hx Family Cancer: - Grandmother Lymphoma Physical Exam - Physical Exam General Appearance: Anxious, Ill Appearing Eye Exam: bilateral normal Ears, Nose, Throat: hearing grossly normal, normal ENT inspection, other - mucus membranes slightly dry Neck: non-tender, full range of motion, supple, normal inspection Respiratory: chest non-tender, lungs clear, normal breath sounds, no respiratory distress, no accessory muscle use, other - tachypneic Cardiovascular/Chest: regular rate, rhythm, no murmur, tachycardia Gastrointestinal/Abdominal: guarding, tenderness, other - tenderness out of proportion to exam. Back Exam: normal inspection, no vertebral tenderness, CVA tenderness (L) Extremity: normal range of motion, normal inspection, no pedal edema Neurologic: no motor/sensory deficits, alert, oriented x 3 Skin Exam: normal color, warm/dry Progress - Progress Progress: 11/11/19 20:45 patient is calmer, feeling better. plan to send her home with another dose of pain medicine and nausea medicine - EKG/XRAY/CT EKG: Sinus Comments: unchanged from previous EKG Rate 105, no ST-T wave abnormalitiees Departure - Departure Clinical Impression: Gastritis, Uncontrolled diabetes mellitus, Abdominal pain, Vomiting, Deh ydration Time of Disposition: 09:10 Disposition: Discharge to Home or Self Care Condition: Good Instructions: DI for Abdominal Pain-Adult Diet: diabetic diet Referrals: JUSTINO MARQUEZ IV, MANAGER ACCOUNT MANAGEMENT [Primary Care Provider] - 1-2 Weeks Home Medications: Ambulatory Orders Mometasone Furoate [[place]] 0.1 % TOP DAILY PRN 11/07/17 Epinephrine [Epipen 2-Mikael] 0.3 mg IJ ONCE PRN #1 pack 03/26/18 Buspirone HCl 30 mg PO BID 10/23/18 Diazepam 5 mg PO TID 02/21/19 Insulin Aspart (with Niacinami [Fiasp Flextouch 100 Unit/ml] 100 unit SC ACHS 02/24/19 Insulin Detemir [Levemir Pen] 32 units SUBCU DAILY@0700 02/24/19 Albuterol Inhaler [Ventolin Hfa Inhaler] 1 puff INH BID 02/25/19 Salmeterol Xinafoate [Serevent Diskus] 50 mcg INH DAILY 02/25/19 Promethazine Tab [Phenergan Tablet] 25 mg PO .Q4H #15 tab 07/25/19 Ondansetron Odt [Zofran ODT] 8 mg PO Q6H #20 tab 09/12/19 Ibuprofen 600 mg PO Q6H PRN #20 tab 10/16/19 Gabapentin 300 mg PO TID 11/11/19 Hydrocodone-Acetaminophen [[place] 7.5-325 mg] 1 tab PO PRN 11/11/19 Vilazodone HCl [Viibryd] 40 mg PO DAILY 11/11/19 tiZANidine [Zanaflex] 12 mg PO PRN 11/11/19
[2019-11-11] MEDS ORDERED: SODIUM CHLORIDE 0.9% 1000ML 1,000 ML IVS PRN (17:47)
[2019-11-11] MEDS ORDERED: ONDANSETRON INJ 4 MG/2 ML VIAL IV ONE (17:47)
[2019-11-11] MEDS ORDERED: SODIUM CHLORIDE 0.9% (FLUSH) 10 ML SYG IV PRN (17:47)
[2019-11-11] MEDS ORDERED: MORPHINE SULFATE INJ 10 MG/ML VIAL IV ONE ×3 (17:49→20:52)
--- NOTE | 2019-11-11 18:18 | RAD ---
EXAM: Chest,1 View CLINICAL INDICATION: 44-year-old female with painful breathing. TECHNIQUE: Single view, AP portable chest was obtained. COMPARISON: 09/21/2019. FINDINGS: Stable cardiac and mediastinal silhouette. Heart size is normal. Retrocardiac opacification concerning for consolidation/infectious process versus subsegmental atelectasis. Low lung volumes otherwise clear without focal opacity, pneumothorax or pleural effusions. The visualized bones are within normal limits. IMPRESSION: Retrocardiac opacification concerning for consolidation/infectious process versus subsegmental atelectasis. Please correlate with patient clinical findings and follow-up for resolution. Electronically signed by: Justa Paniagua MD 11/11/2019 6:16 PM CDT
[2019-11-11] MEDS ORDERED: diazePAM INJ 10 MG/2 ML SYG IV ONE (19:32)
[2019-11-11] MEDS ORDERED: SODIUM CHLORIDE 0.9% 1000ML 1,000 ML IVS ONE (19:34)
[2019-11-11] MEDS ORDERED: PROMETHAZINE HCL INJ 12.5 MG in SODIUM CHLORIDE 0.9% 50ML 50 ML IVPB ONE (20:53)
[2019-11-11] MEDS ORDERED: PROMETHAZINE HCL INJ 25 MG/ML VIAL ONE (20:56)
[2019-11-11] MEDS ORDERED: SODIUM CHLORIDE 0.9% 50ML 50 ML ONE (20:57)
[2019-11-11 22:04] VITALS: BP 108/82; TEMP 97.5; O2SAT 99
== END 2019-11-11 21:15 | disposition home or self-care (01) ==
LOC: ER 17:36
DX: K29.70 Gastritis, unspecified, without bleeding (principal); E11.65 Type 2 diabetes mellitus with hyperglycemia; R10.9 Unspecified abdominal pain; R07.1 Chest pain on breathing; R11.10 Vomiting, unspecified; E86.0 Dehydration; Z79.4 Long term (current) use of insulin; Z79.899 Other long term (current) drug therapy; F17.200 Nicotine dependence, unspecified, uncomplicated
CPT/HCPCS: 71045; 80053; 81001; 82009; 82948; 83605; 85025; 93005; A4216; J2270; J2405; J2550; J3360; J7030

== ENCOUNTER 2019-11-25 14:33 | Emergency (ER) | payer MEDICARE, MEDICAID ==
[2019-11-25 14:45] VITALS: TEMP 98.9
[2019-11-25] MEDS ORDERED: PROMETHAZINE HCL INJ 25 MG in SODIUM CHLORIDE 0.9% 50ML 50 ML IVPB ONE (15:02)
[2019-11-25] MEDS ORDERED: SODIUM CHLORIDE 0.9% 1000ML 1,000 ML IVS ONE (15:02)
[2019-11-25] MEDS ORDERED: BUTORPHANOL TARTRATE 2 MG/ML VIAL IV ONE ×2 (15:02→17:24)
[2019-11-25] MEDS ORDERED: PROMETHAZINE HCL INJ 25 MG/ML VIAL ONE (15:25)
[2019-11-25] MEDS ORDERED: SODIUM CHLORIDE 0.9% 50ML 50 ML ONE (15:25)
[2019-11-25] MEDS ORDERED: ALUM & MAG HYDROX-SIMETHICONE 30 ML, LIDOCAINE VISCOUS 2% 15 ML PO ONE ×2 (16:08)
[2019-11-25] MEDS ORDERED: diazePAM 5 MG TAB PO ONE (16:08)
[2019-11-25] MEDS ORDERED: SUCRALFATE 1 GM/10 ML 1 GM UD PO ONE (16:08)
[2019-11-25] MEDS ORDERED: LIDOCAINE HCL 2% (MOUTH-THROAT) 15 ML UD ONE (16:16)
[2019-11-25] MEDS ORDERED: ALUM & MAG HYDROX-SIMETHICONE 30 ML UD ONE (16:16)
--- NOTE | 2019-11-25 16:45 | RAD ---
EXAM DESCRIPTION: Abdomen Series CLINICAL HISTORY: 44 years Female, nv abd pain COMPARISON: Radiographs the chest dated 11/11/2019. TECHNIQUE: Acute abdominal series was performed. FINDINGS: Chest: Trachea is midline. The cardiac silhouette is normal in size. ABDOMEN: Few nonspecific prominent small bowel loops are identified throughout the abdomen, concerning for early/partial small bowel obstruction. No abnormal calcifications. IMPRESSION: Few nonspecific prominent small bowel loops are identified throughout the abdomen, concerning for early/partial small bowel obstruction. Electronically signed by: Nancy Hansen MD 11/25/2019 4:44 PM CDT
--- NOTE | 2019-11-25 18:04 | ED.PDOC ---
History of Present Illness - General Chief Complaint: Abdominal Pain Stated Complaint: abd pain n/v Time Seen by Provider: 11/25/19 14:44 Source: patient Exam Limitations: no limitations - History of Present Illness Initial Comments: The patient is a 44-year-old female presented emergency room with another episode of significant nausea and vomiting for the last 24 hours. The patient does have significant diabetes and significant gastroparesis. She does get periods where she is unable to hold her medications down due to this and then starts having withdrawal issues and increasing abdominal pain related to that. At times she also goes into DKA with this problem. Her blood sugars have actually been fairly well controlled over the last couple of days however but she has been unable to tolerate liquid intake. No diarrhea. No fevers. No point abdominal pain just generalized cramping. No new symptoms compared to previous episodes. Timing/Duration: 24 hours Severity: severe Improving Factors: nothing Worsening Factors: eating Associated Symptoms: loss of appetite, malaise, nausea/vomiting, weakness Allergies/Adverse Reactions: Allergies Fish Allergy Allergy (Verified 11/25/19 14:42) peanut Allergy (Severe, Uncoded 11/25/19 14:42) Home Medications: Ambulatory Orders Mometasone Furoate [Elocon] 0.1 % TOP DAILY PRN 11/07/17 Epinephrine [Epipen 2-Mikael] 0.3 mg IJ ONCE PRN #1 pack 03/26/18 Buspirone HCl 30 mg PO BID 10/23/18 Diazepam 5 mg PO TID 02/21/19 Insulin Aspart (with Niacinami [Fiasp Flextouch 100 Unit/ml] 100 unit SC ACHS 02/24/19 Insulin Detemir [Levemir Pen] 32 units SUBCU DAILY@0700 02/24/19 Albuterol Inhaler [Ventolin Hfa Inhaler] 1 puff INH BID 02/25/19 Salmeterol Xinafoate [Serevent Diskus] 50 mcg INH DAILY 02/25/19 Promethazine Tab [Phenergan Tablet] 25 mg PO .Q4H #15 tab 07/25/19 Ondansetron Odt [Zofran ODT] 8 mg PO Q6H #20 tab 09/12/19 Ibuprofen 600 mg PO Q6H PRN #20 tab 10/16/19 Gabapentin 300 mg PO TID 11/11/19 Hydrocodone-Acetaminophen [[place] 7.5-325 mg] 1 tab PO PRN 11/11/19 Vilazodone HCl [Viibryd] 40 mg PO DAILY 11/11/19 tiZANidine [Zanaflex] 12 mg PO PRN 11/11/19 Review of Systems - Review of Systems Constitutional: States: malaise EENTM: States: no symptoms reported Respiratory: States: no symptoms reported Cardiology: States: no symptoms reported Gastrointestinal/Abdominal: States: abdominal pain, nausea, vomiting Genitourinary: States: no symptoms reported Musculoskeletal: States: see HPI - She does have chronic back pain issues Skin: States: no symptoms reported Neurological: States: anxiety - Primarily because she has not been able to hold down her Valium Endocrine: States: no symptoms reported All other Systems: No Change from Baseline Past Medical History (General) - Patient Medical History Hx Seizures: Yes Hx Stroke: No Hx Dementia: No Hx Asthma: Yes Hx of COPD: No Hx Cardiac Disorders: No Hx Congestive Heart Failure: No Hx Pacemaker: No Hx Hypertension: No Hx Thyroid Disease: No Hx Diabetes: Yes Hx Gastroesophageal Reflux: Yes Hx Renal Disease: No Hx Cancer: No Hx of HIV: No Hx Hepatitis C: No Hx MRSA: Yes - 2018 MRSA Source:: Wound - Vaccination History Hx Tetanus, Diphtheria Vaccination: No Hx Influenza Vaccination: Yes Hx Pneumococcal Vaccination: Yes - Social History Hx Tobacco Use: Yes Hx Chewing Tobacco Use: No Hx Alcohol Use: Yes Hx Substance Use: Yes Hx Substance Use Treatment: No Hx Depression: Yes Hx Physical Abuse: No Hx Emotional Abuse: No Hx Suspected Abuse: No - Female History Patient is a Female of Child Bearing Age (10 -59 yrs old): Yes Hx Last Menstrual Period: 11/05/11 Patient : Yes Family Medical History - Family History Mother Family History: No Known Name: April Age (years): 70 Living Status: Still Living Hx Family Asthma: No Hx Family Congestive Heart Failure: No Hx Family Hypertension: No Hx Family Stroke: No Hx Cardiac Disease: No Hx Family Diabetes: No Hx Family Cancer: Yes - skin cancer Hx Family;Other: thyroid problems and seizures Father Family History: No Known Name: Marlon Age (years): 68 Living Status: Still Living Hx Family Asthma: - Sister Hx Family Congestive Heart Failure: No Hx Family Hypertension: Yes Hx Family Stroke: No Hx Cardiac Disease: Yes Hx Family Diabetes: No Age of Onset (years of age): 32 Hx Family Cancer: - Grandmother Lymphoma Physical Exam - Physical Exam General Appearance: Alert, Other - Uncomfortable Eye Exam: bilateral normal Ears, Nose, Throat: hearing grossly normal, normal ENT inspection Neck: full range of motion, supple Respiratory: lungs clear, normal breath sounds, no respiratory distress, no accessory muscle use Cardiovascular/Chest: normal peripheral pulses, regular rate, rhythm - Borderline tachycardia, no edema Peripheral Pulses: radial,right: 2+, radial,left: 2+ Gastrointestinal/Abdominal: soft, other - Mild epigastric discomfort to palpation. No rebound or peritoneal signs. The patient has not actually vomited since her arrival. Rectal Exam: deferred Back Exam: no CVA tenderness - No new pain Extremity: normal range of motion, non-tender, normal inspection, no pedal edema, normal capillary refill Neurologic: towel weaver II-XII nml as tested, alert, normal mood/affect, oriented x 3 Skin Exam: normal color Comments: Vital Signs - 24 hr 11/25/19 11/25/19 14:42 16:49 Temperature 98.9 F Pulse Rate [ 124 H 99 H monitor] Respiratory 18 20 Rate Blood Pressure 132/74 132/87 [LA] O2 Sat by Pulse 99 97 Oximetry Progress - Progress Progress: 11/25/19 18:05 The patient is a 44-year-old female presented emergency room secondary to nausea and vomiting for the last day. She does have cyclical nausea and vomiting from her diabetic induced gastroparesis. The patient has received a liter of IV fluids as well as some nausea and pain medications and is doing somewhat better. She does need to maintain a bland diet. No evidence of DKA at this time. She is not severely dehydrated. The patient does need to resume her home medications. I would like her to follow-up with her primary care doctor within the next day or 2. ER warnings are given. lana anderson [phone] - Results/Orders Results/Orders: Acute abdominal series shows a few mildly dilated loops of small bowel. This is a frequent finding with her x-rays upon review. No symptoms of obstruction currently aside from abdominal pain. Laboratory Results - last 24 hr 11/25/19 11/25/19 11/25/19 15:15 15:15 15:15 WBC 6.4 RBC 5.20 Hgb 14.0 Hct 42.0 MCV 80.6 L MCH 26.9 L MCHC 33.4 RDW 13.5 Plt Count 354 MPV 8.4 Absolute Neuts (auto) 3.70 Absolute Lymphs (auto) 2.10 Absolute Monos (auto) 0.40 Absolute Eos (auto) 0.10 Absolute Basos (auto) 0.00 Neutrophils % 57.8 Lymphocytes % 33.1 Monocytes % 6.3 Eosinophils % 2.3 Basophils % 0.5 Sodium 137 Potassium 3.6 Chloride 106 Carbon Dioxide 21 Anion Gap 13.6 BUN 9 Creatinine 0.53 L BUN/Creatinine Ratio 17.0 POC Glucose Random Glucose 200 H Serum Osmolality 278.1 Lactic Acid 1.2 Calcium 9.2 Magnesium 1.8 Total Bilirubin 0.6 AST 20 ALT 23 Alkaline Phosphatase 106 Creatine Kinase 38 CK-MB (CK-2) 0.7 CK-MB (CK-2) % Not Reportable Troponin I < 0.02 Serum Total Protein 7.8 Albumin 4.3 Globulin 3.5 Albumin/Globulin Ratio 1.2 Amylase 50 Lipase 34 Urine Color Urine Appearance Urine pH Ur Specific [place] Urine Protein Urine Glucose (UA) Urine Ketones Urine Blood Urine Nitrite Urine Bilirubin Urine Urobilinogen Ur Leukocyte Esterase Urine RBC Urine WBC Ur Epithelial Cells Urine Bacteria Urine Mucus Serum Ketones 11/25/19 11/25/19 11/25/19 15:15 15:53 17:14 WBC RBC Hgb Hct MCV MCH MCHC RDW Plt Count MPV Absolute Neuts (auto) Absolute Lymphs (auto) Absolute Monos (auto) Absolute Eos (auto) Absolute Basos (auto) Neutrophils % Lymphocytes % Monocytes % Eosinophils % Basophils % Sodium Potassium Chloride Carbon Dioxide Anion Gap BUN Creatinine BUN/Creatinine Ratio POC Glucose 148 H Random Glucose Serum Osmolality Lactic Acid Calcium Magnesium Total Bilirubin AST ALT Alkaline Phosphatase Creatine Kinase CK-MB (CK-2) CK-MB (CK-2) % Troponin I Serum Total Protein Albumin Globulin Albumin/Globulin Ratio Amylase Lipase Urine Color Yellow Urine Appearance Clear Urine pH 6.0 Ur Specific [place] 1.020 Urine Protein 30 Urine Glucose (UA) 500 H Urine Ketones Negative Urine Blood Moderate H Urine Nitrite Negative Urine Bilirubin Negative Urine Urobilinogen 0.2 Ur Leukocyte Esterase Negative Urine RBC 3-5 H Urine WBC 1-3 Ur Epithelial Cells 5-10 Urine Bacteria Rare Urine Mucus Trace Serum Ketones Negative Departure - Departure Clinical Impression: Cyclical vomiting with nausea, Diabetic gastroparesis Disposition: Discharge to Home or Self Care Condition: Fair Departure Forms: ED Discharge - Pt. Copy, Patient Portal Self Enrollment Diet: diabetic diet Activity: increase activity as tolerated Referrals: JUSTINO MARQUEZ IV, [facility] [Primary Care Provider] - 1-2 Weeks Home Medications: Ambulatory Orders Mometasone Furoate [Elocon] 0.1 % TOP DAILY PRN 11/07/17 Epinephrine [Epipen 2-Mikael] 0.3 mg IJ ONCE PRN #1 pack 03/26/18 Buspirone HCl 30 mg PO BID 10/23/18 Diazepam 5 mg PO TID 02/21/19 Insulin Aspart (with Niacinami [Fiasp Flextouch 100 Unit/ml] 100 unit SC ACHS 02/24/19 Insulin Detemir [Levemir Pen] 32 units SUBCU DAILY@0700 02/24/19 Albuterol Inhaler [Ventolin Hfa Inhaler] 1 puff INH BID 02/25/19 Salmeterol Xinafoate [Serevent Diskus] 50 mcg INH DAILY 02/25/19 Promethazine Tab [Phenergan Tablet] 25 mg PO .Q4H #15 tab 07/25/19 Ondansetron Odt [Zofran ODT] 8 mg PO Q6H #20 tab 09/12/19 Ibuprofen 600 mg PO Q6H PRN #20 tab 10/16/19 Gabapentin 300 mg PO TID 11/11/19 Hydrocodone-Acetaminophen [[place] 7.5-325 mg] 1 tab PO PRN 11/11/19 Vilazodone HCl [Viibryd] 40 mg PO DAILY 11/11/19 tiZANidine [Zanaflex] 12 mg PO PRN 11/11/19 Additional Instructions: The patient is a 44-year-old female presented emergency room secondary to nausea and vomiting for the last day. She does have cyclical nausea and vomiting from her diabetic induced gastroparesis. The patient has received a liter of IV fluids as well as some nausea and pain medications and is doing somewhat better. She does need to maintain a bland diet. No evidence of DKA at this time. She is not severely dehydrated. The patient does need to resume her home medications. I would like her to follow-up with her primary care doctor within the next day or 2. ER warnings are given.
[2019-11-25 18:21] VITALS: BP 110/83; O2SAT 98
== END 2019-11-25 18:21 | disposition home or self-care (01) ==
LOC: ER 14:33
DX: R11.15 Cyclical vomiting syndrome unrelated to migraine (principal); E11.43 Type 2 diabetes mellitus with diabetic autonomic (poly)neuropathy; K31.84 Gastroparesis; Z79.4 Long term (current) use of insulin; Z79.899 Other long term (current) drug therapy; F17.200 Nicotine dependence, unspecified, uncomplicated; R11.2 Nausea with vomiting, unspecified
CPT/HCPCS: 36415; 36416; 74019; 80053; 81001; 82009; 82150; 82550; 82553; 82948; 83605; 83690; 83735; 84484; 85025; A4216; J0595; J2550; J7030

== ENCOUNTER → 2019-11-26 | Outpatient (CLI) | payer MEDICARE, MEDICAID ==
--- NOTE | 2019-11-26 08:58 | RAD ---
EXAM DESCRIPTION: Hip,Right 2 Views CLINICAL HISTORY: 44 years Female, HIP PAIN COMPARISON: September 29, 2019 FINDINGS: 2 views of the right hip show no acute fracture or malalignment. No right-sided joint space narrowing. No focal bone lesion or periostitis. The soft tissues are unremarkable. IMPRESSION: Negative exam. Electronically signed by: Abel Hagen MD 11/26/2019 8:57 AM CDT
--- NOTE | 2019-11-26 08:58 | RAD ---
EXAM DESCRIPTION: Pelvis CLINICAL HISTORY: 44 years Female, HIP PAIN COMPARISON: January 30, 2019 FINDINGS: Single AP view the pelvis shows no acute fracture or malalignment. No hip joint space narrowing. Small calcification adjacent to the superior margin of the left acetabulum, unchanged from January,. The pubic symphysis and sacroiliac joints are unremarkable. IMPRESSION: Negative exam. Electronically signed by: Abel Hagen MD 11/26/2019 8:57 AM CDT
--- NOTE | 2019-11-26 09:01 | RAD ---
EXAM DESCRIPTION: Knee,Right Complete CLINICAL HISTORY: 44 years Female, KNEE PAIN COMPARISON: September 29, 2019 FINDINGS: 4 views of the right knee show no acute fracture or malalignment. No joint effusion. Mild to moderate degenerative changes in the patellofemoral compartment including joint space narrowing and osteophyte formation. Additional small osteophyte arising from the medial femoral condyle. No radiopaque foreign body or soft tissue gas. IMPRESSION: Mild degenerative changes in the medial and patellofemoral compartments. Electronically signed by: Abel Hagen MD 11/26/2019 8:59 AM CDT
== END ==
LOC: RAD 08:40
PROVIDERS: ATTEND Orthopaedic Surgery
DX: M17.11 Unilateral primary osteoarthritis, right knee (principal); M25.551 Pain in right hip

== ENCOUNTER 2019-11-28 09:47 | Emergency (ER) | payer MEDICARE, MEDICAID ==
--- NOTE | 2019-11-28 10:01 | ED.PDOC ---
History of Present Illness - General Time Seen by Provider: 11/28/19 09:57 - History of Present Illness Initial Comments: 44-year-old female well-known to ED staff from multiple visits, with history of insulin diabetes, chronic abdominal pain, presents again with vomiting and ab dominal pain. Took Phenergan at home this morning, that is not helping. Blood sugar at home was in the 320s, took her insulin after that. No fever, trauma, no vag discharage. Allergies/Adverse Reactions: Allergies Fish Allergy Allergy (Verified 11/25/19 14:42) peanut Allergy (Severe, Uncoded 11/25/19 14:42) Home Medications: Ambulatory Orders Mometasone Furoate [Elocon] 0.1 % TOP DAILY PRN 11/07/17 Epinephrine [Epipen 2-Mikael] 0.3 mg IJ ONCE PRN #1 pack 03/26/18 Buspirone HCl 30 mg PO BID 10/23/18 Diazepam 5 mg PO TID 02/21/19 Insulin Aspart (with Niacinami [Fiasp Flextouch 100 Unit/ml] 100 unit SC ACHS 02/24/19 Insulin Detemir [Levemir Pen] 32 units SUBCU DAILY@0700 02/24/19 Albuterol Inhaler [Ventolin Hfa Inhaler] 1 puff INH BID 02/25/19 Salmeterol Xinafoate [Serevent Diskus] 50 mcg INH DAILY 02/25/19 Promethazine Tab [Phenergan Tablet] 25 mg PO .Q4H #15 tab 07/25/19 Ondansetron Odt [Zofran ODT] 8 mg PO Q6H #20 tab 09/12/19 Ibuprofen 600 mg PO Q6H PRN #20 tab 10/16/19 Gabapentin 300 mg PO TID 11/11/19 Hydrocodone-Acetaminophen [[place] 7.5-325 mg] 1 tab PO PRN 11/11/19 Vilazodone HCl [Viibryd] 40 mg PO DAILY 11/11/19 tiZANidine [Zanaflex] 12 mg PO PRN 11/11/19 Prochlorperazine Tab [Compazine Tab] 10 mg PO Q8HR PRN #10 tab 11/28/19 Review of Systems - Review of Systems Review of Systems: 11/28/19 10:01 general: Denies generalized weakness, fever, arthralgia/myalgia HEENT: Denies sore throat, rhinorrhea Cardiovascular: Denies chest pain, palpitations Respiratory: Denies SOB, cough Gastrointestinal: has abdominal pain, vomiting, no diarrhea : Denies dysuria, frequency Musculoskeletal: Denies extremity pain, extremity swelling Integument: Denies rash, itching Neuro: Denies focal weakness or numbness Psych: Denies depression, hallucinations. Past Medical History (General) - Patient Medical History Hx Seizures: Yes Hx Stroke: No Hx Dementia: No Hx Asthma: Yes Hx of COPD: No Hx Cardiac Disorders: No Hx Congestive Heart Failure: No Hx Pacemaker: No Hx Hypertension: No Hx Thyroid Disease: No Hx Diabetes: Yes Hx Gastroesophageal Reflux: Yes Hx Renal Disease: No Hx Cancer: No Hx of HIV: No Hx Hepatitis C: No Hx MRSA: Yes - 2019 MRSA Source:: Wound - Vaccination History Hx Tetanus, Diphtheria Vaccination: No Hx Influenza Vaccination: Yes Hx Pneumococcal Vaccination: Yes - Social History Hx Tobacco Use: Yes Hx Chewing Tobacco Use: No Hx Alcohol Use: Yes Hx Substance Use: Yes Hx Substance Use Treatment: No Hx Depression: Yes Hx Physical Abuse: No Hx Emotional Abuse: No Hx Suspected Abuse: No - Female History Hx Last Menstrual Period: 11/05/11 Patient : Yes Family Medical History - Family History Mother Family History: No Known Name: April Age (years): 70 Living Status: Still Living Hx Family Asthma: No Hx Family Congestive Heart Failure: No Hx Family Hypertension: No Hx Family Stroke: No Hx Cardiac Disease: No Hx Family Diabetes: No Hx Family Cancer: Yes - skin cancer Hx Family;Other: thyroid problems and seizures Father Family History: No Known Name: Marlon Age (years): 68 Living Status: Still Living Hx Family Asthma: - Sister Hx Family Congestive Heart Failure: No Hx Family Hypertension: Yes Hx Family Stroke: No Hx Cardiac Disease: Yes Hx Family Diabetes: No Age of Onset (years of age): 32 Hx Family Cancer: - Grandmother Lymphoma Physical Exam - Physical Exam Comments: General Appearance: Patient is awake and alert. Skin: Warm and dry. No diaphoresis. No rash or other lesions. Head: Normocephalic/atraumatic. Eyes: PERRL, lids, conjunctiva and sclera unremarkable. EOMI intact. ENT: No nasal discharge. Oropharynx. Without erythema, exudate, lesions. Moist mucous membranes. Neck: Supple. No LAD. No tenderness. No JVD noted. Respiratory: Normal rate and effort. Breath sounds clear bilaterally. Cardiovascular: Regular rate. Heart sounds normal. No murmur. GI: Abdomen soft, non-distended and non-tender. No rebound/guarding. Bowel sounds normal. Back: No tenderness Musculoskeletal: Extremities- Normal range of motion. No effusion, cyanosis, edema. Neurological: Alert. No facial palsy. Speech clear. Gag intact. No motor deficit, str symmetric. No sensory deficit. Progress - Progress Progress: 11/28/19 10:22 Vital Signs - 24 hr 11/28/19 10:01 Temperature 98.0 F Pulse Rate [ 117 H pulse ox] Respiratory 20 Rate Blood Pressure 126/77 [Right Arm] O2 Sat by Pulse 98 Oximetry 11/28/19 12:16 Safety Stop Patient feels better. VS, exam remain reassuring. UA without acute abnormality. I have discussed findings, diff dx, plan of care, need for follow-up, and reasons to return to the ED. Safety Stop (Diagnostic Time-Out): Tachycardia: Resolved Diagnostic Studies: Reviewed Diagnostic Certainty: low Patient/family feels safe with discharge: Yes - Results/Orders Results/Orders: 1020: BS 280s, UA w/ trace ketones, no evidence of infection. will plan sympt tx, reassess. Departure - Departure Clinical Impression: Vomiting Time of Disposition: 12:20 Disposition: Discharge to Home or Self Care Condition: Good Departure Forms: ED Discharge - Pt. Copy Instructions: DI for Abdominal Pain-Adult Diet: resume usual diet Referrals: JUSTINO MARQUEZ IV [facility] [employer] [facility] [Primary Care Provider] - 1-2 Weeks Prescriptions: Prochlorperazine Tab [Compazine Tab] 10 mg PO Q8HR PRN #10 tab PRN Reason: Vomiting Home Medications: Ambulatory Orders Mometasone Furoate [Elocon] 0.1 % TOP DAILY PRN 11/07/17 Epinephrine [Epipen 2-Mikael] 0.3 mg IJ ONCE PRN #1 pack 03/26/18 Buspirone HCl 30 mg PO BID 10/23/18 Diazepam 5 mg PO TID 02/21/19 Insulin Aspart (with Niacinami [Fiasp Flextouch 100 Unit/ml] 100 unit SC ACHS 02/24/19 Insulin Detemir [Levemir Pen] 32 units SUBCU DAILY@0700 02/24/19 Albuterol Inhaler [Ventolin Hfa Inhaler] 1 puff INH BID 02/25/19 Salmeterol Xinafoate [Serevent Diskus] 50 mcg INH DAILY 02/25/19 Promethazine Tab [Phenergan Tablet] 25 mg PO .Q4H #15 tab 07/25/19 Ondansetron Odt [Zofran ODT] 8 mg PO Q6H #20 tab 09/12/19 Ibuprofen 600 mg PO Q6H PRN #20 tab 10/16/19 Gabapentin 300 mg PO TID 11/11/19 Hydrocodone-Acetaminophen [[place] 7.5-325 mg] 1 tab PO PRN 11/11/19 Vilazodone HCl [Viibryd] 40 mg PO DAILY 11/11/19 tiZANidine [Zanaflex] 12 mg PO PRN 11/11/19 Prochlorperazine Tab [Compazine Tab] 10 mg PO Q8HR PRN #10 tab 11/28/19 Comments: David Tesfaye MD Emergency Medicine #[id number]
[2019-11-28] MEDS ORDERED: HALOPERIDOL LACTATE INJ 5 MG/ML VIAL IM ONE (10:10)
[2019-11-28] MEDS ORDERED: HYDROmorphone HCL 2 MG TAB PO ONE (11:20)
[2019-11-28 12:29] VITALS: BP 101/76; TEMP 97.4; O2SAT 98
== END 2019-11-28 12:37 | disposition home or self-care (01) ==
LOC: ER 09:47
DX: R11.10 Vomiting, unspecified (principal); E11.9 Type 2 diabetes mellitus without complications; Z79.4 Long term (current) use of insulin; F17.200 Nicotine dependence, unspecified, uncomplicated
CPT/HCPCS: 81001; 82948; J1630

== ENCOUNTER 2019-11-30 00:18 | Emergency (ER) | payer MEDICARE, MEDICAID ==
[2019-11-30] MEDS ORDERED: SODIUM CHLORIDE 0.9% (FLUSH) 10 ML SYG IV PRN (00:23)
[2019-11-30] MEDS ORDERED: SODIUM CHLORIDE 0.9% 1000ML 1,000 ML IVS ONE ×3 (00:23→18:03)
[2019-11-30] MEDS: METOCLOPRAMIDE HCL INJ 10 MG/2 ML VIAL IV ONE ×2 (00:36→00:40)
[2019-11-30] MEDS ORDERED: ONDANSETRON INJ 4 MG/2 ML VIAL IV ONE ×2 (00:42→18:03)
[2019-11-30] MEDS ORDERED: ONDANSETRON INJ 4 MG/2 ML VIAL ONE (00:43)
--- NOTE | 2019-11-30 01:07 | ED.PDOC ---
History of Present Illness - General Chief Complaint: Abdominal Pain Stated Complaint: abd pain, nausea, dizzy Time Seen by Provider: 11/30/19 00:23 Information Source: patient, RN notes reviewed, Vital Signs reviewed, EMS notes reviewed, old records - 11/28/2019 Exam Limitations: no limitations - History of Present Illness Initial Comments: Patient is a 44-year-old white female who presents with complaints of nausea, vomiting and abdominal pain. Patient states she is been unable to hold down her medicines. Patient is a diabetic. Patient was seen here 1-1/2 days ago for the same symptoms. Patient denies any blurry vision, headaches, chest pain, shortness of breath, cough, nausea, vomiting, diarrhea, dysuria or vaginal discharge. Patient denies any areas of redness on her skin or cellulitis. The abdominal pain is cramping in nature. Worse when she tries to eat or drink something. Nothing makes it better. It is nonradiating. It is severe in intensity. Abdominal Pain Onset Location: generalized abdomen Pain Radiation: no radiation Quality: severe, cramping Timing/Duration: 7-24 hours Improving Factors: nothing Worsening Factors: eating Associated Symptoms: nausea/vomiting Review of Systems - Review of Systems Constitutional: States: no symptoms reported, see HPI. Denies: chills, fever, malaise, weakness EENTM: States: no symptoms reported. Denies: eye pain, blurred vision, double vision, throat swelling Respiratory: States: no symptoms reported. Denies: cough, short of breath, stridor, wheezing Cardiology: States: no symptoms reported. Denies: chest pain, palpitations, syncope Gastrointestinal/Abdominal: States: see HPI, abdominal pain, nausea, vomiting. Denies: constipation, diarrhea Genitourinary: States: no symptoms reported. Denies: discharge, dysuria, frequency Musculoskeletal: States: no symptoms reported. Denies: back pain, neck pain Skin: States: no symptoms reported. Denies: change in color, lesions, rash Neurological: States: see HPI, other - Dizziness. Denies: headache, numbness Endocrine: States: no symptoms reported. Denies: intolerance to cold, intolerance to heat, increased hunger, increased thirst, increased urine Hematologic/Lymphatic: States: no symptoms reported All other Systems: No Change from Baseline Past Medical History (General) - Patient Medical History Hx Seizures: Yes Hx Stroke: No Hx Dementia: No Hx Asthma: Yes Hx of COPD: No Hx Cardiac Disorders: No Hx Congestive Heart Failure: No Hx Pacemaker: No Hx Hypertension: No Hx Thyroid Disease: No Hx Diabetes: Yes Hx Gastroesophageal Reflux: Yes Hx Renal Disease: No Hx Cancer: No Hx of HIV: No Hx Hepatitis C: No Hx MRSA: Yes - 2019 MRSA Source:: Wound - Vaccination History Hx Tetanus, Diphtheria Vaccination: No Hx Influenza Vaccination: Yes Hx Pneumococcal Vaccination: Yes - Social History Hx Tobacco Use: Yes Hx Chewing Tobacco Use: No Hx Alcohol Use: Yes Hx Substance Use: Yes Hx Substance Use Treatment: No Hx Depression: Yes Hx Physical Abuse: No Hx Emotional Abuse: No Hx Suspected Abuse: No - Female History Hx Last Menstrual Period: 11/05/11 Patient : Yes Family Medical History - Family History Mother Family History: No Known Name: April Age (years): 70 Living Status: Still Living Hx Family Asthma: No Hx Family Congestive Heart Failure: No Hx Family Hypertension: No Hx Family Stroke: No Hx Cardiac Disease: No Hx Family Diabetes: No Hx Family Cancer: Yes - skin cancer Hx Family;Other: thyroid problems and seizures Father Family History: No Known Name: Marlon Age (years): 68 Living Status: Still Living Hx Family Asthma: - Sister Hx Family Congestive Heart Failure: No Hx Family Hypertension: Yes Hx Family Stroke: No Hx Cardiac Disease: Yes Hx Family Diabetes: No Age of Onset (years of age): 32 Hx Family Cancer: - Grandmother Lymphoma Physical Exam - Physical Exam General Appearance: Alert, Anxious, Emaciated, Obvious distress, Well Developed, Well Hydrated, Well Nourished Eyes, Ears, Nose, Throat Exam: PERRL/EOMI, normal ENT inspection, TMs normal, pharynx normal - Except for dry mucous membranes Neck: non-tender, full range of motion, supple, normal inspection Respiratory: chest non-tender, lungs clear, normal breath sounds, no respiratory distress Cardiovascular/Chest: normal peripheral pulses, no edema, no gallop, no JVD, no murmur, tachycardia Peripheral Pulses: No deficit Gastrointestinal/Abdominal: normal bowel sounds, soft, tenderness - Generalized Back Exam: normal inspection, no CVA tenderness, no vertebral tenderness Extremity: normal range of motion, non-tender, normal inspection 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 11/30/19 02:47 Patient presented with complaints of abdominal pain and back pain. Lab work is relatively unremarkable except for some mild dehydration and renal insufficiency which is prerenal. On multiple occasions patient is asking for narcotic pain medications to help with the abdominal pain. I explained her that this was contraindicated and would make her gastroparesis worse. I did provide her some antiemetics as well as some antianxiety medications which have markedly improved her disposition. Patient has had no vomiting while here. She has had 2 L of normal saline and her blood sugars down under 250. Plan on discharge home and patient can then start back on her regular medication regimen. I discussed this plan of care with the patient and she voices understanding and agreement. She is called a friend to pick her up. Patient is safe for discharge. Hao Zambrano M.D. #[id number] - Results/Orders Results/Orders: CT abdomen and pelvis without contrast on 11/30/2019 CLINICAL INDICATION: Left lower quadrant and left back pain TECHNIQUE: Multiple axial images are obtained throughout the abdomen and pelvis without the administration of contrast. This exam was performed according to our departmental dose-optimization program, which includes automated exposure control, adjustment of the mA and/or kV according to patient size and/or use of iterative reconstruction technique. Total DLP is 428.93 mGy*cm. COMPARISON: 10/16/2019 FINDINGS: Abdomen: The lung bases are clear. The patient is status post cholecystectomy. There is a stable low density area in the left hepatic lobe that appear stable dating back to at least an old exam from 01/17/2017. This may represent an area of focal fatty change. There are no renal or ureteral stones and no hydronephrosis. The unenhanced solid abdominal organs are otherwise unremarkable. There is no abdominal adenopathy. Mild vascular calcifications are noted. There is no free fluid or free air within the abdomen. The abdominal portion of the GI tract is unremarkable. Pelvis: The patient appears to be status post appendectomy. The patient is status post hysterectomy. There is no free fluid in the pelvis. There is mild diverticulosis. Pelvic portion of the GI tract is otherwise unremarkable. There is no pelvic adenopathy. Degenerative ch anges are noted in the spine. IMPRESSION: 1. Mild diverticulosis. 2. No acute abnormality. Electronically signed by: Vidal Wilkinson 11/30/2019 2:27 AM 11/30/19 00:23 IV Care:Saline Lock per Protoc QSHIFT Sodium Chloride 0.9% (Flush) [Saline Flush Syringe] 10 ml IV PRN PRN Laboratory Results - last 24 hr 11/30/19 11/30/19 11/30/19 00:32 00:32 00:40 WBC 10.4 RBC 4.90 Hgb 13.1 Hct 40.4 MCV 82.4 MCH 26.8 L MCHC 32.6 L RDW 13.5 Plt Count 319 MPV 8.1 Absolute Neuts (auto) 7.60 H Absolute Lymphs (auto) 2.00 Absolute Monos (auto) 0.60 Absolute Eos (auto) 0.10 Absolute Basos (auto) 0.00 Neutrophils % 72.9 Lymphocytes % 19.8 L Monocytes % 5.7 Eosinophils % 1.3 Basophils % 0.3 Sodium 131 L Potassium 3.9 Chloride 103 Carbon Dioxide 18 L Anion Gap 13.9 BUN 19 H Creatinine 1.35 H BUN/Creatinine Ratio 14.1 POC Glucose Random Glucose 436 H* Serum Osmolality 284.0 Calcium 8.9 Total Bilirubin 0.6 Direct Bilirubin 0.1 Indirect Bilirubin 0.5 AST 23 ALT 20 Alkaline Phosphatase 116 Serum Total Protein 6.9 Albumin 4.0 Lipase 42 D Urine Color Yellow Urine Appearance Clear Urine pH 7.5 Ur Specific [place] 1.015 Urine Protein Negative Urine Glucose (UA) 500 H Urine Ketones 40 H Urine Blood Small H Urine Nitrite Negative Urine Bilirubin Negative Urine Urobilinogen 0.2 Ur Leukocyte Esterase Negative Urine RBC 3-5 H Urine WBC 0 Ur Epithelial Cells 1-3 Urine Bacteria 0 11/30/19 01:53 WBC RBC Hgb Hct MCV MCH MCHC RDW Plt Count MPV Absolute Neuts (auto) Absolute Lymphs (auto) Absolute Monos (auto) Absolute Eos (auto) Absolute Basos (auto) Neutrophils % Lymphocytes % Monocytes % Eosinophils % Basophils % Sodium Potassium Chloride Carbon Dioxide Anion Gap BUN Creatinine BUN/Creatinine Ratio POC Glucose 233 H Random Glucose Serum Osmolality Calcium Total Bilirubin Direct Bilirubin Indirect Bilirubin AST ALT Alkaline Phosphatase Serum Total Protein Albumin Lipase Urine Color Urine Appearance Urine pH Ur Specific [place] Urine Protein Urine Glucose (UA) Urine Ketones Urine Blood Urine Nitrite Urine Bilirubin Urine Urobilinogen Ur Leukocyte Esterase Urine RBC Urine WBC Ur Epithelial Cells Urine Bacteria Departure - Departure Clinical Impression: Dehydration, Hyperglycemia, Renal insufficiency Abdominal pain Qualifiers: Abdominal location: left lower quadrant Qualified Code(s): R10.32 - Left lower quadrant pain Nausea and vomiting Qualifiers: Vomiting type: unspecified Vomiting Intractability: non-intractable Qualified Code(s): R11.2 - Nausea with vomiting, unspecified Time of Disposition: 02:57 Disposition: Discharge to Home or Self Care Condition: Good Departure Forms: ED Discharge - Pt. Copy, Patient Portal Self Enrollment Instructions: DI for Abdominal Pain-Adult, Dehydration, Adult (DC) Diet: diabetic diet Activity: increase activity as tolerated Referrals: JUSTINO MARQUEZ IV G[facility] TENDER [Primary Care Provider] - 1-5 Days Home Medications: Ambulatory Orders Mometasone Furoate [Elocon] 0.1 % TOP DAILY PRN 11/07/17 Epinephrine [Epipen 2-Mikael] 0.3 mg IJ ONCE PRN #1 pack 03/26/18 Buspirone HCl 30 mg PO BID 10/23/18 Diazepam 5 mg PO TID 02/21/19 Insulin Aspart (with Niacinami [Fiasp Flextouch 100 Unit/ml] 100 unit SC ACHS 02/24/19 Insulin Detemir [Levemir Pen] 32 units SUBCU DAILY@0700 02/24/19 Albuterol Inhaler [Ventolin Hfa Inhaler] 1 puff INH BID 02/25/19 Salmeterol Xinafoate [Serevent Diskus] 50 mcg INH DAILY 02/25/19 Promethazine Tab [Phenergan Tablet] 25 mg PO .Q4H #15 tab 07/25/19 Ondansetron Odt [Zofran ODT] 8 mg PO Q6H #20 tab 09/12/19 Ibuprofen 600 mg PO Q6H PRN #20 tab 10/16/19 Gabapentin 300 mg PO TID 11/11/19 Hydrocodone-Acetaminophen [[place] 7.5-325 mg] 1 tab PO PRN 11/11/19 Vilazodone HCl [Viibryd] 40 mg PO DAILY 11/11/19 tiZANidine [Zanaflex] 12 mg PO PRN 11/11/19 Prochlorperazine Tab [Compazine Tab] 10 mg PO Q8HR PRN #10 tab 11/28/19
[2019-11-30] MEDS ORDERED: INSULIN, REG.(HUMAN) 100 U/ML VIAL ONE (01:12)
[2019-11-30] MEDS ORDERED: INSULIN, REG.(HUMAN) 100 U/ML VIAL IV ONE (01:13)
[2019-11-30] MEDS ORDERED: diazePAM INJ 10 MG/2 ML SYG IV ONE (01:32)
[2019-11-30] MEDS ORDERED: PROMETHAZINE HCL INJ 12.5 MG in SODIUM CHLORIDE 0.9% 50ML 50 ML IVPB ONE (01:32)
[2019-11-30] MEDS ORDERED: PROMETHAZINE HCL INJ 25 MG/ML VIAL ONE (01:35)
[2019-11-30] MEDS ORDERED: SODIUM CHLORIDE 0.9% 50ML 50 ML ONE (01:36)
--- NOTE | 2019-11-30 02:29 | CT ---
CT abdomen and pelvis without contrast on 11/30/2019 CLINICAL INDICATION: Left lower quadrant and left back pain TECHNIQUE: Multiple axial images are obtained throughout the abdomen and pelvis without the administration of contrast. This exam was performed according to our departmental dose-optimization program, which includes automated exposure control, adjustment of the mA and/or kV according to patient size and/or use of iterative reconstruction technique. Total DLP is 428.93 mGy*cm. COMPARISON: 10/16/2019 FINDINGS: Abdomen: The lung bases are clear. The patient is status post cholecystectomy. There is a stable low density area in the left hepatic lobe that appear stable dating back to at least an old exam from 01/17/2017. This may represent an area of focal fatty change. There are no renal or ureteral stones and no hydronephrosis. The unenhanced solid abdominal organs are otherwise unremarkable. There is no abdominal adenopathy. Mild vascular calcifications are noted. There is no free fluid or free air within the abdomen. The abdominal portion of the GI tract is unremarkable. Pelvis: The patient appears to be status post appendectomy. The patient is status post hysterectomy. There is no free fluid in the pelvis. There is mild diverticulosis. Pelvic portion of the GI tract is otherwise unremarkable. There is no pelvic adenopathy. Degenerative changes are noted in the spine. IMPRESSION: 1. Mild diverticulosis. 2. No acute abnormality. Electronically signed by: Vidal Wilkinson 11/30/2019 2:27 AM CDT
[2019-11-30] MEDS ORDERED: ACETAMINOPHEN 500 MG TAB PO ONE (18:03)
[2019-11-30] MEDS ORDERED: MORPHINE SULFATE INJ 10 MG/ML VIAL IV ONE (18:03)
--- NOTE | 2019-11-30 18:22 | ED.PDOC ---
History of Present Illness - General Chief Complaint: Diabetic Complaint Time Seen by Provider: 11/30/19 18:01 - History of Present Illness Initial Comments: 44 yo F PMH HTN DM Anxiety and well known to ED staff multiple ER visits presents to ED Mother at bedside c/o abdominal pain and left sided flank pain and asking for 'something for anxiety'. Denies recent travel cough or contact with covid19 denies fever chills nausea vomiting diarrhea chest pain sob diaphoresis. No change in diet bowel or bladder symptoms are disturbing rest. No other c/o today. Allergies/Adverse Reactions: Allergies Fish Allergy Allergy (Verified 11/30/19 19:02) peanut Allergy (Severe, Uncoded 11/30/19 19:02) Home Medications: Ambulatory Orders Mometasone Furoate [Elocon] 0.1 % TOP DAILY PRN 11/07/17 Epinephrine [Epipen 2-Mikael] 0.3 mg IJ ONCE PRN #1 pack 03/26/18 Buspirone HCl 30 mg PO BID 10/23/18 Diazepam 5 mg PO TID 02/21/19 Insulin Aspart (with Niacinami [Fiasp Flextouch 100 Unit/ml] 100 unit SC ACHS 02/24/19 Insulin Detemir [Levemir Pen] 32 units SUBCU DAILY@0700 02/24/19 Albuterol Inhaler [Ventolin Hfa Inhaler] 1 puff INH BID 02/25/19 Salmeterol Xinafoate [Serevent Diskus] 50 mcg INH DAILY 02/25/19 Promethazine Tab [Phenergan Tablet] 25 mg PO .Q4H #15 tab 07/25/19 Ondansetron Odt [Zofran ODT] 8 mg PO Q6H #20 tab 09/12/19 Ibuprofen 600 mg PO Q6H PRN #20 tab 10/16/19 Gabapentin 300 mg PO TID 11/11/19 Hydrocodone-Acetaminophen [[place] 7.5-325 mg] 1 tab PO PRN 11/11/19 Vilazodone HCl [Viibryd] 40 mg PO DAILY 11/11/19 tiZANidine [Zanaflex] 12 mg PO PRN 11/11/19 Prochlorperazine Tab [Compazine Tab] 10 mg PO Q8HR PRN #10 tab 11/28/19 Review of Systems - Review of Systems Constitutional: States: see HPI EENTM: States: see HPI Respiratory: States: see HPI Cardiology: States: see HPI Gastrointestinal/Abdominal: States: see HPI Genitourinary: States: see HPI Musculoskeletal: States: see HPI Skin: States: see HPI Neurological: States: see HPI Endocrine: States: see HPI Hematologic/Lymphatic: States: see HPI All other Systems: Reviewed and Negative Past Medical History (General) - Patient Medical History Hx Seizures: Yes Hx Stroke: No Hx Dementia: No Hx Asthma: Yes Hx of COPD: No Hx Cardiac Disorders: No Hx Congestive Heart Failure: No Hx Pacemaker: No Hx Hypertension: No Hx Thyroid Disease: No Hx Diabetes: Yes Hx Gastroesophageal Reflux: Yes Hx Renal Disease: No Hx Cancer: No Hx of HIV: No Hx Hepatitis C: No Hx MRSA: Yes - 2019 MRSA Source:: Wound - Vaccination History Hx Tetanus, Diphtheria Vaccination: No Hx Influenza Vaccination: Yes Hx Pneumococcal Vaccination: Yes - Social History Hx Tobacco Use: Yes Hx Chewing Tobacco Use: No Hx Alcohol Use: Yes Hx Substance Use: Yes Hx Substance Use Treatment: No Hx Depression: Yes Hx Physical Abuse: No Hx Emotional Abuse: No Hx Suspected Abuse: No - Female History Hx Last Menstrual Period: 11/05/11 Patient : Yes Family Medical History - Family History Mother Family History: No Known Name: April Age (years): 70 Living Status: Still Living Hx Family Asthma: No Hx Family Congestive Heart Failure: No Hx Family Hypertension: No Hx Family Stroke: No Hx Cardiac Disease: No Hx Family Diabetes: No Hx Family Cancer: Yes - skin cancer Hx Family;Other: thyroid problems and seizures Father Family History: No Known Name: Marlon Age (years): 68 Living Status: Still Living Hx Family Asthma: - Sister Hx Family Congestive Heart Failure: No Hx Family Hypertension: Yes Hx Family Stroke: No Hx Cardiac Disease: Yes Hx Family Diabetes: No Age of Onset (years of age): 32 Hx Family Cancer: - Grandmother Lymphoma Physical Exam - Physical Exam General Appearance: Anxious Eye Exam: bilateral normal Ears, Nose, Throat: normal ENT inspection Neck: non-tender, full range of motion Respiratory: no respiratory distress Cardiovascular/Chest: tachycardia Gastrointestinal/Abdominal: soft, tenderness - Tender LLQ Rectal Exam: deferred Back Exam: CVA tenderness (L) Extremity: normal range of motion, non-tender Neurologic: no motor/sensory deficits Skin Exam: normal color, rash - chronic eczema Progress - Progress Progress: 11/30/19 18:22 PPE worn-N95 surgical mask with attached face shield over N95 goggles gloves and a face shield over that 11/30/19 18:54 A/P-Abdominal Pain Flank Pain-iv bolus morphine zofran ativan cbc cmp lipase ct abdomen pelvis reassess 11/30/19 19:24 Laboratory Tests 11/30/19 11/30/19 11/30/19 18:20 18:20 18:20 WBC 7.3 RBC 4.76 Hgb 13.5 Hct 39.2 MCV 82.4 MCH 28.4 MCHC 34.4 RDW 13.4 Plt Count 337 MPV 8.2 Absolute Neuts (auto) 4.30 Absolute Lymphs (auto) 2.30 Absolute Monos (auto) 0.50 Absolute Eos (auto) 0.10 Absolute Basos (auto) 0.10 Neutrophils % 59.4 Lymphocytes % 31.4 Monocytes % 6.4 Eosinophils % 2.0 Basophils % 0.8 Sodium 133 L Potassium 4.0 Chloride 103 Carbon Dioxide 21 Anion Gap 13.0 BUN 9 Creatinine 0.64 BUN/Creatinine Ratio 14.1 Random Glucose 393 H Serum Osmolality 281.4 Lactic Acid Calcium 8.7 Total Bilirubin 0.3 AST 20 ALT 16 Alkaline Phosphatase 128 H Troponin I Serum Total Protein 7.1 Albumin 4.1 Globulin 3.0 Albumin/Globulin Ratio 1.4 Lipase 72 H D Urine Color Urine Appearance Urine pH Ur Specific [place] Urine Protein Urine Glucose (UA) Urine Ketones Urine Blood Urine Nitrite Urine Bilirubin Urine Urobilinogen Ur Leukocyte Esterase Urine RBC Urine WBC Ur Epithelial Cells Urine Bacteria Urine HCG, Qual 11/30/19 11/30/19 11/30/19 18:20 18:20 18:30 WBC RBC Hgb Hct MCV MCH MCHC RDW Plt Count MPV Absolute Neuts (auto) Absolute Lymphs (auto) Absolute Monos (auto) Absolute Eos (auto) Absolute Basos (auto) Neutrophils % Lymphocytes % Monocytes % Eosinophils % Basophils % Sodium Potassium Chloride Carbon Dioxide Anion Gap BUN Creatinine BUN/Creatinine Ratio Random Glucose Serum Osmolality Lactic Acid 1.6 Calcium Total Bilirubin AST ALT Alkaline Phosphatase Troponin I < 0.02 Serum Total Protein Albumin Globulin Albumin/Globulin Ratio Lipase Urine Color Urine Appearance Urine pH Ur Specific [place] Urine Protein Urine Glucose (UA) Urine Ketones Urine Blood Urine Nitrite Urine Bilirubin Urine Urobilinogen Ur Leukocyte Esterase Urine RBC Urine WBC Ur Epithelial Cells Urine Bacteria Urine HCG, Qual Negative 11/30/19 18:30 WBC RBC Hgb Hct MCV MCH MCHC RDW Plt Count MPV Absolute Neuts (auto) Absolute Lymphs (auto) Absolute Monos (auto) Absolute Eos (auto) Absolute Basos (auto) Neutrophils % Lymphocytes % Monocytes % Eosinophils % Basophils % Sodium Potassium Chloride Carbon Dioxide Anion Gap BUN Creatinine BUN/Creatinine Ratio Random Glucose Serum Osmolality Lactic Acid Calcium Total Bilirubin AST ALT Alkaline Phosphatase Troponin I Serum Total Protein Albumin Globulin Albumin/Globulin Ratio Lipase Urine Color Yellow Urine Appearance Clear Urine pH 5.5 Ur Specific [place] <= 1.005 Urine Protein Negative Urine Glucose (UA) >=1000 H Urine Ketones Negative Urine Blood Small H Urine Nitrite Negative Urine Bilirubin Negative Urine Urobilinogen 0.2 Ur Leukocyte Esterase Negative Urine RBC 1-3 Urine WBC 0-1 Ur Epithelial Cells 1-3 Urine Bacteria Rare Urine HCG, Qual EXAM: CT Abdomen and Pelvis Without Intravenous Contrast CLINICAL HISTORY: r/o stone TECHNIQUE: Axial computed tomography images of the abdomen and pelvis without intravenous contrast. Sagittal and coronal reformatted images were created and reviewed. This CT exam was performed using one or more of the following dose reduction techniques: automated exposure control, adjustment of the mA and/or kV according to patient size, and/or use of iterative reconstruction technique. COMPARISON: 2:00 AM the same day. FINDINGS: Lung bases: Unremarkable. No mass. No consolidation. ABDOMEN: Liver: Unremarkable. Gallbladder and bile ducts: Cholecystectomy. No ductal dilation. Pancreas: Unremarkable. No ductal dilation. Spleen: Unremarkable. No splenomegaly. Adrenals: Unremarkable. No mass. Kidneys and ureters: Unremarkable. No obstructing stones. No hydronephrosis. Stomach and bowel: Scattered colonic diverticulosis noted. No diverticulitis. No obstruction. PELVIS: Appendix: Probable appendectomy. Bladder: Unremarkable. No stones. Reproductive: Unremarkable as visualized. ABDOMEN and PELVIS: Intraperitoneal space: Unremarkable. No free air. No significant fluid collection. Bones/joints: No acute fracture. No dislocation. Soft tissues: Unremarkable. Vasculature: Multiple phleboliths noted in the pelvis. No abdominal aortic aneurysm. Lymph nodes: There are prominent bilateral inguinal lymph nodes likely reactive. IMPRESSION: 1. No urinary stones identified. 2. No inflammatory process noted. Electronically signed by: Patricia Mora MD 11/30/2019 7:05 PM CDT EXAM DESCRIPTION: Chest,1 View CLINICAL HISTORY: 44 years Female abdominal pain COMPARISON: 11/11/2019 FINDINGS: The cardiomediastinal silhouette appears unremarkable. No consolidating infiltrates or pleural effusions. No pneumothorax. IMPRESSION: No acute abnormality is identified. Electronically signed by: Mignon Lisa MD 11/30/2019 6:57 PM CDT discharge - Results/Orders Results/Orders: EKG-non specific TW changes Sinus Tachycardia Departure - Departure Clinical Impression: Flank pain Abdominal pain Qualifiers: Abdominal location: generalized Qualified Code(s): R10.84 - Generalized abdominal pain Disposition: Discharge to Home or Self Care Condition: Fair Departure Forms: ED Discharge - Pt. Copy, Patient Portal Self Enrollment Instructions: DI for Diabetes Type 2 Referrals: JUSTINO MARQUEZ IV, [facility] SUPERVISOR [Primary Care Provider] - 1-2 Days Home Medications: Ambulatory Orders Mometasone Furoate [Elocon] 0.1 % TOP DAILY PRN 11/07/17 Epinephrine [Epipen 2-Mikael] 0.3 mg IJ ONCE PRN #1 pack 03/26/18 Buspirone HCl 30 mg PO BID 10/23/18 Diazepam 5 mg PO TID 02/21/19 Insulin Aspart (with Niacinami [Fiasp Flextouch 100 Unit/ml] 100 unit SC ACHS 02/24/19 Insulin Detemir [Levemir Pen] 32 units SUBCU DAILY@0700 02/24/19 Albuterol Inhaler [Ventolin Hfa Inhaler] 1 puff INH BID 02/25/19 Salmeterol Xinafoate [Serevent Diskus] 50 mcg INH DAILY 02/25/19 Promethazine Tab [Phenergan Tablet] 25 mg PO .Q4H #15 tab 07/25/19 Ondansetron Odt [Zofran ODT] 8 mg PO Q6H #20 tab 09/12/19 Ibuprofen 600 mg PO Q6H PRN #20 tab 10/16/19 Gabapentin 300 mg PO TID 11/11/19 Hydrocodone-Acetaminophen [[place] 7.5-325 mg] 1 tab PO PRN 11/11/19 Vilazodone HCl [Viibryd] 40 mg PO DAILY 11/11/19 tiZANidine [Zanaflex] 12 mg PO PRN 11/11/19 Prochlorperazine Tab [Compazine Tab] 10 mg PO Q8HR PRN #10 tab 11/28/19
--- NOTE | 2019-11-30 18:59 | RAD ---
EXAM DESCRIPTION: Chest,1 View CLINICAL HISTORY: 44 years Female abdominal pain COMPARISON: 11/11/2019 FINDINGS: The cardiomediastinal silhouette appears unremarkable. No consolidating infiltrates or pleural effusions. No pneumothorax. IMPRESSION: No acute abnormality is identified. Electronically signed by: Mignon Lisa MD 11/30/2019 6:57 PM CDT
[2019-11-30 19:06] VITALS: TEMP 97.4
--- NOTE | 2019-11-30 19:07 | CT ---
EXAM: CT Abdomen and Pelvis Without Intravenous Contrast CLINICAL HISTORY: r/o stone TECHNIQUE: Axial computed tomography images of the abdomen and pelvis without intravenous contrast. Sagittal and coronal reformatted images were created and reviewed. This CT exam was performed using one or more of the following dose reduction techniques: automated exposure control, adjustment of the mA and/or kV according to patient size, and/or use of iterative reconstruction technique. COMPARISON: 2:00 AM the same day. FINDINGS: Lung bases: Unremarkable. No mass. No consolidation. ABDOMEN: Liver: Unremarkable. Gallbladder and bile ducts: Cholecystectomy. No ductal dilation. Pancreas: Unremarkable. No ductal dilation. Spleen: Unremarkable. No splenomegaly. Adrenals: Unremarkable. No mass. Kidneys and ureters: Unremarkable. No obstructing stones. No hydronephrosis. Stomach and bowel: Scattered colonic diverticulosis noted. No diverticulitis. No obstruction. PELVIS: Appendix: Probable appendectomy. Bladder: Unremarkable. No stones. Reproductive: Unremarkable as visualized. ABDOMEN and PELVIS: Intraperitoneal space: Unremarkable. No free air. No significant fluid collection. Bones/joints: No acute fracture. No dislocation. Soft tissues: Unremarkable. Vasculature: Multiple phleboliths noted in the pelvis. No abdominal aortic aneurysm. Lymph nodes: There are prominent bilateral inguinal lymph nodes likely reactive. IMPRESSION: 1. No urinary stones identified. 2. No inflammatory process noted. Electronically signed by: Patricia Mora MD 11/30/2019 7:05 PM CDT
[2019-11-30 19:37] VITALS: BP 112/80; O2SAT 97
== END 2019-11-30 03:13 | disposition home or self-care (01) ==
LOC: ER 00:18
DX: R10.84 Generalized abdominal pain (principal); F41.9 Anxiety disorder, unspecified; R00.0 Tachycardia, unspecified; I10 Essential (primary) hypertension; E11.9 Type 2 diabetes mellitus without complications; F17.200 Nicotine dependence, unspecified, uncomplicated; Z79.4 Long term (current) use of insulin; Z79.899 Other long term (current) drug therapy
CPT/HCPCS: 74176; 80048; 80076; 81001; 82948; 83690; 85025; A4216; J2060; J2405; J2550; J2765; J3360; J7030

== ENCOUNTER 2019-12-01 14:33 | Observation (INO) | payer MEDICARE, MEDICAID ==
[2019-12-01] MEDS ORDERED: PROMETHAZINE HCL INJ 12.5 MG in SODIUM CHLORIDE 0.9% 50ML 50 ML IVPB ONE (14:52)
[2019-12-01] MEDS ORDERED: BUTORPHANOL TARTRATE 2 MG/ML VIAL IV ONE (14:52)
[2019-12-01] MEDS ORDERED: SODIUM CHLORIDE 0.9% 1000ML 1,000 ML IVS ONE (14:53)
[2019-12-01] MEDS ORDERED: PROMETHAZINE HCL INJ 25 MG/ML VIAL ONE ×2 (14:56→20:05)
[2019-12-01] MEDS ORDERED: SODIUM CHLORIDE 0.9% 50ML 50 ML ONE ×2 (14:56→20:05)
[2019-12-01] MEDS ORDERED: diazePAM 5 MG TAB PO ONE (15:30)
[2019-12-01] MEDS ORDERED: MAGNESIUM SULFATE PREMIX 2GM 2 GM in PREMIX BAG 1 BAG IVPB ONE (15:39)
[2019-12-01] MEDS ORDERED: MAGNESIUM SULFATE PREMIX 2GM 50 ML IVPB ONE (15:57)
--- NOTE | 2019-12-01 16:42 | ED.PDOC ---
History of Present Illness - General Chief Complaint: Chest Pain/UT Stated Complaint: chest pain, Kidney Pain Time Seen by Provider: 12/01/19 14:37 Source: patient Exam Limitations: no limitations - History of Present Illness Initial Comments: The patient is a 44-year-old female well-known to the emergency room presenting for the fifth time this week secondary to uncontrolled nausea vomiting and abdominal and back cramps. The patient has been unable to keep down her pain and nausea medications. She is not in DKA. She has had 2 CT scans of the abdomen this week alone. Looking back over her history she has had 24 CT scans of her abdomen here at this facility alone over the last 5 years. No fevers. She is passing gas. No diarrhea. No fever. This is her typical chronic abdominal and back pain. The patient gets in the cycles of vomiting where she cannot hold down her Valium and hydrocodone and then of course starts to withdrawal from not having doses of those. She is seen by Dr. Paul in [place] and does receive periodic Botox injections in her intestinal tract. Timing/Duration: 1 week, constant, getting worse Severity: severe Improving Factors: nothing Worsening Factors: eating Associated Symptoms: chest pain - When she gets nauseated she does get some chest pain when she throws up, loss of appetite, malaise, nausea/vomiting Allergies/Adverse Reactions: Allergies Fish Allergy Allergy (Verified 11/30/19 19:02) peanut Allergy (Severe, Uncoded 11/30/19 19:02) Home Medications: Ambulatory Orders Mometasone Furoate [Elocon] 0.1 % TOP DAILY PRN 11/07/17 Epinephrine [Epipen 2-Mikael] 0.3 mg IJ ONCE PRN #1 pack 03/26/18 Buspirone HCl 30 mg PO BID 10/23/18 Diazepam 5 mg PO TID 02/21/19 Insulin Aspart (with Niacinami [Fiasp Flextouch 100 Unit/ml] 100 unit SC ACHS 02/24/19 Insulin Detemir [Levemir Pen] 32 units SUBCU DAILY@0700 02/24/19 Albuterol Inhaler [Ventolin Hfa Inhaler] 1 puff INH BID 02/25/19 Salmeterol Xinafoate [Serevent Diskus] 50 mcg INH DAILY 02/25/19 Promethazine Tab [Phenergan Tablet] 25 mg PO .Q4H #15 tab 07/25/19 Ondansetron Odt [Zofran ODT] 8 mg PO Q6H #20 tab 09/12/19 Ibuprofen 600 mg PO Q6H PRN #20 tab 10/16/19 Gabapentin 300 mg PO TID 11/11/19 Hydrocodone-Acetaminophen [Ralph 7.5-325 mg] 1 tab PO PRN 11/11/19 Vilazodone HCl [Viibryd] 40 mg PO DAILY 11/11/19 tiZANidine [Zanaflex] 12 mg PO PRN 11/11/19 Prochlorperazine Tab [Compazine Tab] 10 mg PO Q8HR PRN #10 tab 11/28/19 Review of Systems - Review of Systems Constitutional: States: no symptoms reported EENTM: States: no symptoms reported Respiratory: States: no symptoms reported Cardiology: States: chest pain - With vomiting only Gastrointestinal/Abdominal: States: abdominal pain, nausea, vomiting Genitourinary: States: no symptoms reported Musculoskeletal: States: back pain - Acute on chronic Skin: States: no symptoms reported Neurological: States: anxiety Endocrine: States: no symptoms reported, increased hunger All other Systems: No Change from Baseline Past Medical History (General) - Patient Medical History Hx Seizures: Yes Hx Stroke: No Hx Dementia: No Hx Asthma: Yes Hx of COPD: No Hx Cardiac Disorders: No Hx Congestive Heart Failure: No Hx Pacemaker: No Hx Hypertension: No Hx Thyroid Disease: No Hx Diabetes: Yes Hx Gastroesophageal Reflux: Yes Hx Renal Disease: No Hx Cancer: No Hx of HIV: No Hx Hepatitis C: No Hx MRSA: Yes - 2019 MRSA Source:: Wound Surgical History: appendectomy, cholecystectomy, Hysterectomy - Vaccination History Hx Tetanus, Diphtheria Vaccination: No Hx Influenza Vaccination: Yes Hx Pneumococcal Vaccination: Yes - Social History Hx Tobacco Use: Yes Hx Chewing Tobacco Use: No Hx Alcohol Use: Yes Hx Substance Use: Yes Hx Substance Use Treatment: No Hx Depression: Yes Hx Physical Abuse: No Hx Emotional Abuse: No Hx Suspected Abuse: No - Female History Hx Last Menstrual Period: 11/05/11 Patient : Yes Family Medical History - Family History Mother Family History: No Known Name: April Age (years): 70 Living Status: Still Living Hx Family Asthma: No Hx Family Congestive Heart Failure: No Hx Family Hypertension: No Hx Family Stroke: No Hx Cardiac Disease: No Hx Family Diabetes: No Hx Family Cancer: Yes - skin cancer Hx Family;Other: thyroid problems and seizures Father Family History: No Known Name: Marlon Age (years): 68 Living Status: Still Living Hx Family Asthma: - Sister Hx Family Congestive Heart Failure: No Hx Family Hypertension: Yes Hx Family Stroke: No Hx Cardiac Disease: Yes Hx Family Diabetes: No Age of Onset (years of age): 32 Hx Family Cancer: - Grandmother Lymphoma Physical Exam - Physical Exam General Appearance: Alert, Anxious Eye Exam: bilateral normal Ears, Nose, Throat: hearing grossly normal, normal pharynx Neck: full range of motion, supple Respiratory: lungs clear, normal breath sounds, no respiratory distress, no accessory muscle use Cardiovascular/Chest: normal peripheral pulses, regular rate, rhythm - Borderline sinus tachycardia, no edema Peripheral Pulses: radial,right: 2+, radial,left: 2+, dorsalis pedis,right: 2+, dorsalis pedis,left: 2+ Gastrointestinal/Abdominal: soft, other - No rebound or peritoneal signs. No palpable masses. Diffuse discomfort to palpation. Back Exam: CVA tenderness (R), CVA tenderness (L) Extremity: non-tender, normal inspection, no pedal edema, normal capillary refill Neurologic: qm consultant II-XII nml as tested, alert, oriented x 3, other - Very anxious Skin Exam: normal color Comments: Vital Signs - 24 hr 12/01/19 12/01/19 12/01/19 15:07 15:20 15:25 Temperature 99.1 F Pulse Rate 126 H Pulse Rate [ 126 H 126 H Left Brachial] Respiratory 24 Rate Blood Pressure 129/79 [Left Arm] O2 Sat by Pulse 98 Oximetry Progress - Progress Progress: 12/01/19 16:45 The patient is a 44-year-old female presented emergency room secondary to uncontrolled nausea and vomiting likely related to diabetic gastroparesis. The patient will be admitted for continued care. The patient is a brittle diabetic so the glucose is planned to be monitored carefully. I have discussed the patient with gastroenterology on-call today at [facility], Dr. Caicedo, who is recommended that we put the patient in for inpatient management and if she is not improving by tomorrow, she can be transferred to [facility] under Dr. Paul, who is her primary senior administrative services officer. This does seem a reasonable plan for now. Vital signs are stable. Admit for continued care. - Results/Orders Results/Orders: EKG shows sinus tachycardia 101 bpm. Normal axis. Slow R wave progression. First-degree AV block. No definitive ST segment or T wave changes indicative of acute ischemia. Normal QT interval. Laboratory Tests 12/01/19 12/01/19 12/01/19 15:10 15:10 15:10 WBC 9.4 RBC 4.65 Hgb 12.9 Hct 38.1 MCV 81.9 MCH 27.7 MCHC 33.8 RDW 13.5 Plt Count 303 MPV 7.9 Absolute Neuts (auto) 6.40 Absolute Lymphs (auto) 2.30 Absolute Monos (auto) 0.50 Absolute Eos (auto) 0.10 Absolute Basos (auto) 0.10 Neutrophils % 67.9 Lymphocytes % 24.8 Monocytes % 5.1 Eosinophils % 1.6 Basophils % 0.6 PT INR PTT (SP) Sodium 134 L Potassium 4.1 Chloride 103 Carbon Dioxide 25 Anion Gap 10.1 L BUN 7 Creatinine 0.58 L BUN/Creatinine Ratio 12.1 Random Glucose 244 H D Serum Osmolality 274.3 L Lactic Acid 1.6 Calcium 8.7 Magnesium 1.6 L Total Bilirubin 0.3 AST 42 ALT 27 Alkaline Phosphatase 121 Creatine Kinase 49 CK-MB (CK-2) 2.0 CK-MB (CK-2) % Not Reportable Troponin I < 0.02 B-Natriuretic Peptide 39.1 Serum Total Protein 6.6 Albumin 3.9 Globulin 2.7 Albumin/Globulin Ratio 1.4 Amylase 62 Lipase 47 D Serum HCG, Qual 12/01/19 12/01/19 15:10 15:10 WBC RBC Hgb Hct MCV MCH MCHC RDW Plt Count MPV Absolute Neuts (auto) Absolute Lymphs (auto) Absolute Monos (auto) Absolute Eos (auto) Absolute Basos (auto) Neutrophils % Lymphocytes % Monocytes % Eosinophils % Basophils % PT 9.4 INR < 1.00 PTT (SP) 22.7 Sodium Potassium Chloride Carbon Dioxide Anion Gap BUN Creatinine BUN/Creatinine Ratio Random Glucose Serum Osmolality Lactic Acid Calcium Magnesium Total Bilirubin AST ALT Alkaline Phosphatase Creatine Kinase CK-MB (CK-2) CK-MB (CK-2) % Troponin I B-Natriuretic Peptide Serum Total Protein Albumin Globulin Albumin/Globulin Ratio Amylase Lipase Serum HCG, Qual Negative - EKG/XRAY/CT CT Ordered: Yes Departure - Departure Clinical Impression: Cyclical vomiting with nausea, Gastroparesis, Anxiety Medication withdrawal Qualifiers: Substance type: sedative, hypnotic or anxiolytic Qualified Code(s): F13.239 - Sedative, hypnotic or anxiolytic dependence with withdrawal, unspecified Disposition: Admit Patient Condition: Poor Departure Forms: ED Discharge - Pt. Copy, Patient Portal Self Enrollment Referrals: JUSTINO MARQUEZ IV, CLERICAL AIDE TEACHER [Primary Care Provider] - 1-2 Weeks Home Medications: Ambulatory Orders Mometasone Furoate [Elocon] 0.1 % TOP DAILY PRN 11/07/17 Epinephrine [Epipen 2-Mikael] 0.3 mg IJ ONCE PRN #1 pack 03/26/18 Buspirone HCl 30 mg PO BID 10/23/18 Diazepam 5 mg PO TID 02/21/19 Insulin Aspart (with Niacinami [Fiasp Flextouch 100 Unit/ml] 100 unit SC ACHS 02/24/19 Insulin Detemir [Levemir Pen] 32 units SUBCU DAILY@0700 02/24/19 Albuterol Inhaler [Ventolin Hfa Inhaler] 1 puff INH BID 02/25/19 Salmeterol Xinafoate [Serevent Diskus] 50 mcg INH DAILY 02/25/19 Promethazine Tab [Phenergan Tablet] 25 mg PO .Q4H #15 tab 07/25/19 Ondansetron Odt [Zofran ODT] 8 mg PO Q6H #20 tab 09/12/19 Ibuprofen 600 mg PO Q6H PRN #20 tab 10/16/19 Gabapentin 300 mg PO TID 11/11/19 Hydrocodone-Acetaminophen [Ralph 7.5-325 mg] 1 tab PO PRN 11/11/19 Vilazodone HCl [Viibryd] 40 mg PO DAILY 11/11/19 tiZANidine [Zanaflex] 12 mg PO PRN 11/11/19 Prochlorperazine Tab [Compazine Tab] 10 mg PO Q8HR PRN #10 tab 11/28/19 Decision To Admit - Decistion To Admit Decision to Admit Reason: Medical Nature Decision to Admit Date: 12/01/19 Decision to Admit Time: 16:47
--- NOTE | 2019-12-01 16:59 | HP ---
SUPERVISING PHYSICIAN: DAWIT RAMOS MD ; CHIEF COMPLAINT: Nausea and vomiting and abdominal pain. HISTORY OF PRESENT ILLNESS: This is a 44 year-old female with a history of diabetic gastroparesis and brittle diabetes who came to the hospital multiple times for abdominal pain, nausea and vomiting. She has had 2 CT scans of the abdomen and pelvis this week which have not revealed any significant findings. She states she has been having nausea and vomiting at her home and unable to take her medications and came to the Emergency Room for that. When she comes to the Emergency Room she gets medication that works for a little while but then she goes back home and starts to vomit again.; Today in the Emergency Room, she was evaluated by Dr. Ramos. She was given Phenergan, Stadol and Valium and had some improvement. He called the patient's GI doctor in [place], however, the on-call physician recommended the patient be admitted here to see if we could get her to feel better and if she was not in 24 hours, we could transfer her to [facility]. Therefore, she was referred for admission. On examination, the patient is a little bit drowsy from the medication she has been given but awakens, follows commands and responds appropriately. The patient is still having some abdominal pain and some anxiety given the fact that she takes her medications pretty much [id number] at home and has been unable to take them due to the nausea and vomiting. PAST MEDICAL HISTORY: 1. Type 1 diabetes mellitus. 2. Gastroparesis. 3. Chronic obstructive pulmonary disease. 4. Eczema. 5. Peripheral neuropathy. 6. Chronic low back pain. 7. Chronic abdominal pain. 8. Anxiety and depression. 9. Fibromyalgia. PAST SURGICAL HISTORY: 1. Botox injections for gastropareses, 2, Tubal ligation. 3. Hysterectomy. 4. Appendectomy, 5. Cholecystectomy. 6. Bladder stimulator placement. . 7. Multiple lumbar and cervical spine surgeries. 8. Bilateral knee scopes. 9. Carpal tunnel release. CURRENT MEDICATIONS: [place] see the list updated and verified in the computer. ALLERGIES: Fish. FAMILY HISTORY: Reviewed and noncontributory due to patient's current condition. SOCIAL HISTORY: The patient smokes approximately half pack per day, denies illicit drugs or alcohol use. REVIEW OF SYSTEMS: GENERAL: No fever, chills or recent weight loss or weight gain. HEENT: No headaches, vision changes, ear pain, nasal congestion or throat pain. . RESPIRATORY: No cough, hemoptysis, no complaint of chest pain. CARDIAC: Complains of tachycardia but no chest pain or palpitations or peripheral edema. GI: Positive for nausea and vomiting, positive for abdominal pain. No diarrhea, no constipation. GENITOURINARY: No dysuria, frequency or flank pain was noted. MUSCULOSKELETAL: Positive for chronic low back pain and cervical spine pain. No joint pain, no muscle cramps currently. ENDOCRINE: No polydipsia, polyuria or polyphagia. No heat or cold intolerance. NEUROLOGICAL: Negative for syncope, paresthesias or seizures. PHYSICAL EXAMINATION: VITAL SIGNS: Blood pressure 115/75, heart rate 90, respiratory rate 16, temperature 98.0, oxygen saturation 96%. GENERAL: The patient is a 44 year-old female who is in no active distress but looks as though she does not feel good at the time. HEENT: Normocephalic, atraumatic. Pupils are equal and reactive. No nasal drainage. Throat with moist mucosa. NECK: Supple. Midline trachea. No jugular venous distention. CHEST: Symmetrical with equal rise and fall of the chest with inspiration and expiration. Lung sounds are clear to auscultation bilaterally. CARDIOVASCULAR: Regular rate and rhythm. Normal S1, S2. ABDOMEN: Soft. Positive bowel sounds. Does have diffuse tenderness to palpation. EXTREMITIES: Lower extremities with no significant edema. NEUROLOGICAL: The patient is alert and oriented. Extraocular movements are intact. LABORATORY: Sodium 134, potassium 4.1, chloride 103, C02 of 25, BUN 7, creatinine 0.58, glucose 244, lactic acid 1.6, magnesium 1.6, calcium 8.7, transaminase normal. Cardiac work is normal. Lipase normal. CBC normal. Urinalysis with no indication of urinary tract infection. Drug screen positive for opiates and benzodiazepines as she has been administered those here in the Emergency Room. ASSESSMENT: 1. Abdominal pain. 2. Intractable nausea and vomiting. 3. Chronic pain syndrome. 4. Generalized anxiety disorder. 5. Dehydration. 6. Tobacco abuse. 7. Diabetes mellitus type 1. PLAN: At this time, the patient will be admitted to control her nausea and vomiting and pain. We will administer fluids as well. Schedule pain medication and manage nausea medication. Will monitor her over the next 24 hours and if there is no improvement, will contact Marcin Canales once again. #[id number] MTDD
[2019-12-01] MEDS ORDERED: diazePAM INJ 10 MG/2 ML SYG IV PRN (17:13)
[2019-12-01] MEDS ORDERED: SODIUM CHLORIDE 0.9% (FLUSH) 10 ML SYG IV PRN (17:14)
[2019-12-01] MEDS ORDERED: IV SET AND CAP CHANGE INJ INJ SCH (17:30)
[2019-12-01] MEDS: LACTATED RINGERS 1,000 ML IVS PRN (18:06)
[2019-12-01] MEDS: MORPHINE SULFATE INJ 10 MG/ML VIAL IV PRN ×2 (18:06→22:00)
[2019-12-01] MEDS: PROMETHAZINE HCL INJ 12.5 MG in SODIUM CHLORIDE 0.9% 50ML 50 ML IVPB PRN (20:12)
[2019-12-01] MEDS ORDERED: tiZANidine 4 MG TAB PO SCH (20:30)
[2019-12-01] MEDS ORDERED: DEXTROSE 50% 25 GM/50 ML SYG IV PRN (20:43)
[2019-12-01] MEDS ORDERED: GLUCAGON INJ 1 MG VIAL SUBCU PRN (20:43)
[2019-12-01] MEDS ORDERED: BUSPIRONE HCL 30 MG PO SCH (21:00)
[2019-12-01] MEDS: ALBUTEROL INHALER 64 PUFF/8GM INH SCH (21:19)
[2019-12-01] MEDS ORDERED: busPIRone HCL 5 MG TAB ONE (21:25)
[2019-12-01] MEDS ORDERED: NICOTINE PATCH 21 MG TD ONE (21:40)
[2019-12-01] MEDS: NICOTINE PATCH 21 MG TD SCH (22:03)
[2019-12-01] MEDS: GABAPENTIN 300 MG CAP PO SCH (22:03)
[2019-12-02] MEDS ORDERED: SODIUM CHLORIDE 0.9% 50ML 50 ML ONE ×5 (00:11→16:11)
[2019-12-02] MEDS ORDERED: PROMETHAZINE HCL INJ 25 MG/ML VIAL ONE ×5 (00:11→16:11)
[2019-12-02] MEDS: INSULIN LISPRO 100 UNITS/ML PEN SUBCU SCH ×3 (00:16→12:02)
[2019-12-02] MEDS: PROMETHAZINE HCL INJ 12.5 MG in SODIUM CHLORIDE 0.9% 50ML 50 ML IVPB PRN ×4 (00:17→12:12)
[2019-12-02] MEDS: MORPHINE SULFATE INJ 10 MG/ML VIAL IV PRN ×4 (02:04→14:12)
[2019-12-02] MEDS: LACTATED RINGERS 1,000 ML IVS PRN ×2 (03:36→12:12)
[2019-12-02] MEDS: diazePAM 5 MG TAB PO PRN ×2 (04:13→10:04)
[2019-12-02] MEDS ORDERED: INSULIN DETEMIR 100 UNITS/ML PEN SUBCU SCH (07:00)
[2019-12-02] MEDS: ALBUTEROL INHALER 64 PUFF/8GM INH SCH (08:35)
[2019-12-02] MEDS ORDERED: VILAZODONE HCL 40 MG PO SCH (09:00)
[2019-12-02] MEDS ORDERED: busPIRone HCL 5 MG TAB PO SCH (09:00)
[2019-12-02] MEDS ORDERED: SALMETEROL XINAFOATE 50 MCG INH SCH (09:00)
--- NOTE | 2019-12-02 09:25 | PN ---
SUPERVISING PHYSICIAN: Can Macdonald MD DATE: 12/02/19 SUBJECTIVE: The patient states she feels nausea and has some kidney pain. It should be noted that her urinalysis was negative for any urinary tract infection. She also has not eaten much. She states she feels like her tongue is swollen and she suspects she may have had a seizure, however, on examination of the tongue, there is no edema, no lacerations. OBJECTIVE: VITAL SIGNS: Blood pressure 121/81. Heart rate 90. Respiratory rate 16. Temperature 98.2. Oxygen saturation 99%. GENERAL: Ms. Perkins is a 44-year-old female who is in no active distress current. NEUROLOGIC: Alert and oriented. LUNGS: Clear to auscultation bilaterally. CARDIOVASCULAR: Regular rate and rhythm. Normal S1, S2. ABDOMEN: Soft. Positive bowel sounds. She does have some mild tenderness to palpation. There is no rebound tenderness. EXTREMITIES: Lower extremities with no edema. Pulses 2+. Capillary refill is less than 2 seconds. ASSESSMENT: 1. Abdominal pain. 2. Intractable nausea and vomiting. 3. Chronic pain syndrome. 4. Generalized anxiety disorder. 5. Dehydration. 6. Tobacco abuse. 7. Diabetes mellitus, type 1. PLAN: Blood sugars were a little bit low last night. We are going to hold the Levemir this morning until she is eating more regularly. We will continue her current medication regimen. After she has been monitored for 24 hours here on her current medications, if there is no improvement, I will contact the GI doctor once again in [place] to see if he has any recommendations versus transfer there. #[id number] MTDD
[2019-12-02] MEDS: NICOTINE PATCH 21 MG TD SCH (09:35)
[2019-12-02] MEDS: GABAPENTIN 300 MG CAP PO SCH ×2 (09:35→14:12)
[2019-12-02 11:00] VITALS: O2SAT 99
[2019-12-02 14:52] VITALS: BP 143/76; TEMP 97.6
[2019-12-02] MEDS ORDERED: ENOXAPARIN SODIUM 40 MG/0.4 ML SYG SUBCU SCH (15:30)
--- NOTE | 2019-12-02 15:55 | TS ---
SUPERVISING PHYSICIAN: Can Macdonald MD DATE: 12/02/19 The patient over the last 24 hours is still not able to take p.o. very well. She is still complaining of nausea with intermittent vomiting and some abdominal pain. Therefore, I contacted Dr. Paul, who is the patient's straddle truck driver in [place]. I updated him on the patient's condition including the negative imaging and unremarkable labs. His recommendation was to transfer to [facility] to be evaluated by GI there and with a possible need for an EGD and Botox injection to the pylorus once again. She has had this done in the past and has done well with it. I spoke with Dr. Freire at [facility] and she will be the accepting physician. The patient will go to the Medical/Surgical Unit. I will keep the patient NPO for now, continue the IV fluids and get the transport facilitated. Further care will be initiated by [facility] upon arrival. #[id number] MTDD
== END 2019-12-02 16:25 | disposition short-term general hospital (02) ==
LOC: ER 14:33 → MS 16:58
PROVIDERS: ADMIT Nurse Practitioner; ATTEND Nurse Practitioner
DX: G89.4 Chronic pain syndrome (principal); R10.9 Unspecified abdominal pain; E86.0 Dehydration; F41.1 Generalized anxiety disorder; E10.43 Type 1 diabetes mellitus with diabetic autonomic (poly)neuropathy; K31.84 Gastroparesis; F17.210 Nicotine dependence, cigarettes, uncomplicated; R00.0 Tachycardia, unspecified; I44.0 Atrioventricular block, first degree; J44.9 Chronic obstructive pulmonary disease, unspecified; F32.9 Major depressive disorder, single episode, unspecified; M79.7 Fibromyalgia; K21.9 Gastro-esophageal reflux disease without esophagitis; G40.909 Epilepsy, unspecified, not intractable, without status epilepticus; Z79.4 Long term (current) use of insulin; Z79.891 Long term (current) use of opiate analgesic; Z79.899 Other long term (current) drug therapy; Z91.010 Allergy to peanuts; Z91.013 Allergy to seafood; Z90.49 Acquired absence of other specified parts of digestive tract; Z90.710 Acquired absence of both cervix and uterus
CPT/HCPCS: 96361 ×2; 96366 ×2; 96367; 96365; 96375 ×2; 96376 ×2; 96372; J7799; J3360 ×2; J2270 ×7; J2550 ×7; J7030; A4216 ×7; J3475; J0595; J1815; J7120 ×3; 82553; 80053; 80307; 82948 ×8; 82150; 87077; 87186; 81001; 85025; 82550; 82947; 84703; 83690; 83735; 85730; 85610; 84484; 83880; 36416 ×4; 87070; 83605; 94664; 94640; 99406; 99285; 93005; G0378

== ENCOUNTER → 2019-12-11 | Outpatient (CLI) | payer MEDICARE, MEDICAID | LOC: LAB.O 10:24 | PROVIDERS: ATTEND Orthopaedic Surgery | DX: Z01.818 Encounter for other preprocedural examination (principal) ==

== ENCOUNTER → 2019-12-15 | Outpatient (CLI) | payer MEDICARE, MEDICAID ==
--- NOTE | 2019-12-16 09:15 | MRI ---
EXAM DESCRIPTION: Shoulder,Right: Magnetic Resonance Imaging. CLINICAL HISTORY: SHOULDER PAIN. Right. Limited range of motion. COMPARISON: Right shoulder radiographs September 29. TECHNIQUE: Multiplanar, high-field MRI, multiple sequences, without contrast, right shoulder. FINDINGS: Intermediate signal in the supraspinatus tendon indicating tendinitis. Minimal edema in the musculotendinous junction. Minimal fluid on the superior surface of the distal infraspinatus tendon. Intermediate T1 signal in the musculotendinous junction. Remaining muscles and tendons of the rotator cuff are intact. Normal marrow signal in the humeral head. Minimal edema in the subacromial-subdeltoid bursa. Type II curvature of the lateral acromion. No downsloping. Coracoid acromial ligament coracoid ligaments are intact. Minimal impression on the superior anterior supraspinatus musculotendinous junction by the AC joint capsule. Minimal fluid between the capsule in the supraspinatus. Fluid in the subcoracoid bursa. Subchondral edema mid coronal inferior articular surface of the humeral head. Subchondral edema in the superior anterior glenoid rim extending into the base of the coracoid process. Focal fluid in the junction of the anterior and inferior glenoid labrum. Intermediate proton density signal in the superior glenoid labrum. Bicipital labral anchor is intact with long head biceps tendon within the bicipital groove. IMPRESSION: 1. Tendinopathy of the supraspinatus tendon with mild strain of the musculotendinous junction. Moderate tendinitis versus partial-thickness tear on the superior surface of the distal infraspinatus tendon. Minimal edema in the subacromion subdeltoid bursa. 2. Subcoracoid bursa fluid could indicate bursitis. Curvature of the acromion process and distal clavicle resulting in minimal mass effect on the superior anterior supraspinatus musculotendinous junction. Minimal flattening of the coracoacromial arch. 3. Focal tear in the junction of the inferior and anterior glenoid labrum. Degeneration of the superior labrum. Subchondral injury of the inferior articular surface of the humeral head in the mid coronal plane and the anterior superior aspect of the glenoid at the base of the coracoid process of the scapula. Electronically signed by: Marlon Proctor MD 12/16/2019 9:13 AM CDT
== END ==
LOC: MRI 14:00
PROVIDERS: ATTEND Orthopaedic Surgery
DX: M75.91 Shoulder lesion, unspecified, right shoulder (principal); S46.011A Strain of muscle(s) and tendon(s) of the rotator cuff of right shoulder, initial encounter; S43.431A Superior glenoid labrum lesion of right shoulder, initial encounter; S40.911A Unspecified superficial injury of right shoulder, initial encounter; R60.9 Edema, unspecified

== ENCOUNTER 2019-12-25 13:26 | Emergency (ER) | payer MEDICARE, MEDICAID ==
[2019-12-25] MEDS ORDERED: SODIUM CHLORIDE 0.9% (FLUSH) 10 ML SYG IV PRN (13:35)
[2019-12-25] MEDS ORDERED: SODIUM CHLORIDE 0.9% 1000ML 1,000 ML IVS ONE (13:35)
[2019-12-25] MEDS ORDERED: ASPIRIN TABLET 325 MG TAB PO ONE (13:35)
[2019-12-25] MEDS ORDERED: fentaNYL CITRATE INJ 50 MCG/ML 2 ML AMP IV ONE (13:35)
[2019-12-25] MEDS ORDERED: diphenhydrAMINE HCL 50 MG/ML VIAL IV ONE (13:37)
--- NOTE | 2019-12-25 13:41 | ED.PDOC ---
History of Present Illness - General Chief Complaint: General Stated Complaint: N/V, CP, Anxiety, Abd Pain Time Seen by Provider: 12/25/19 13:30 Source: patient, RN notes reviewed, Vital Signs reviewed, EMS notes reviewed - History of Present Illness Initial Comments: This is a 44-year-old female with history of insulin-dependent diabetes, diabetic gastroparesis, frequent ER visits for abdominal pain and vomiting. She presents emergency department today via EMS for chest pain, anxiety, epigastric pain, vomiting. Abdominal pain and vomiting began this morning, chest pain began 1 hour prior to arrival. She states her blood sugar was 320 this morning, states she took her insulin, repeat blood sugar at home was 240. She denies any hematemesis. She does report a couple episodes of diarrhea today as well. She states she took Phenergan approximately 30 minutes ago, but states she believes she threw it up.No sick contacts. No cough, shortness of breath, upper respiratory symptoms. No known COVID-19 contacts Allergies/Adverse Reactions: Allergies Fish Allergy Allergy (Verified 12/25/19 13:45) peanut Allergy (Severe, Uncoded 11/30/19 19:02) Home Medications: Ambulatory Orders Mometasone Furoate [Elocon] 0.1 % TOP DAILY PRN 11/07/17 Epinephrine [Epipen 2-Mikael] 0.3 mg IJ ONCE PRN #1 pack 03/26/18 Buspirone HCl 30 mg PO BID 10/23/18 Diazepam 5 mg PO TID 02/21/19 Insulin Aspart (with Niacinami [Fiasp Flextouch 100 Unit/ml] 100 unit SC ACHS 02/24/19 Insulin Detemir [Levemir Pen] 32 units SUBCU DAILY@0700 02/24/19 Albuterol Inhaler [Ventolin Hfa Inhaler] 1 puff INH BID 02/25/19 Salmeterol Xinafoate [Serevent Diskus] 50 mcg INH DAILY 02/25/19 Promethazine Tab [Phenergan Tablet] 25 mg PO .Q4H #15 tab 07/25/19 Ondansetron Odt [Zofran Odt] 8 mg PO Q6H #20 tab 09/12/19 Gabapentin 300 mg PO TID 11/11/19 Hydrocodone-Acetaminophen [[place] 7.5-325 mg] 1 tab PO PRN 11/11/19 Vilazodone HCl [Viibryd] 40 mg PO DAILY 11/11/19 tiZANidine [Zanaflex] 12 mg PO PRN 11/11/19 Prochlorperazine Tab [Compazine Tab] 10 mg PO Q8HR PRN #10 tab 11/28/19 Ondansetron Odt [Zofran ODT] 8 mg PO Q8H PRN #12 tab 12/25/19 Review of Systems - Review of Systems Constitutional: Denies: chills, fever EENTM: Denies: double vision, nose pain, throat pain Respiratory: Denies: cough, orthopnea, short of breath, stridor Cardiology: States: chest pain. Denies: edema, palpitations Gastrointestinal/Abdominal: States: abdominal pain, diarrhea, nausea, vomiting. Denies: constipation Genitourinary: Denies: dysuria, hematuria Musculoskeletal: Denies: back pain, joint pain, joint swelling, muscle stiffness, neck pain Skin: Denies: lesions, rash Neurological: Denies: headache, numbness, paresthesia, tingling, tremors Endocrine: States: no symptoms reported. Denies: increased hunger, increased thirst, increased urine Hematologic/Lymphatic: States: no symptoms reported Past Medical History (General) - Patient Medical History Hx Seizures: Yes Hx Stroke: No Hx Dementia: No Hx Asthma: Yes Hx of COPD: No Hx Cardiac Disorders: No Hx Congestive Heart Failure: No Hx Pacemaker: No Hx Hypertension: No Hx Thyroid Disease: No Hx Diabetes: Yes Hx Gastroesophageal Reflux: Yes Hx Renal Disease: No Hx Cancer: No Hx of HIV: No Hx Hepatitis C: No Hx MRSA: Yes - 2019 MRSA Source:: Wound - Vaccination History Hx Tetanus, Diphtheria Vaccination: No Hx Influenza Vaccination: Yes Hx Pneumococcal Vaccination: Yes - Social History Hx Tobacco Use: Yes Hx Chewing Tobacco Use: No Hx Alcohol Use: Yes Hx Substance Use: Yes Hx Substance Use Treatment: No Hx Depression: Yes Hx Physical Abuse: No Hx Emotional Abuse: No Hx Suspected Abuse: No - Female History Hx Last Menstrual Period: 11/05/11 Patient : Yes Family Medical History - Family History Mother Family History: No Known Name: April Age (years): 70 Living Status: Still Living Hx Family Asthma: No Hx Family Congestive Heart Failure: No Hx Family Hypertension: No Hx Family Stroke: No Hx Cardiac Disease: No Hx Family Diabetes: No Hx Family Cancer: Yes - skin cancer Hx Family;Other: thyroid problems and seizures Father Family History: No Known Name: Marlon Age (years): 68 Living Status: Still Living Hx Family Asthma: - Sister Hx Family Congestive Heart Failure: No Hx Family Hypertension: Yes Hx Family Stroke: No Hx Cardiac Disease: Yes Hx Family Diabetes: No Age of Onset (years of age): 32 Hx Family Cancer: - Grandmother Lymphoma Physical Exam - Physical Exam General Appearance: Alert, Comfortable, No apparent distress, Well Developed, Well Groomed - Does not appear anxious at this time, Well Hydrated, Well Nourished, Other Eye Exam: bilateral normal Ears, Nose, Throat: hearing grossly normal, normal ENT inspection Neck: non-tender, supple Respiratory: lungs clear, normal breath sounds, no respiratory distress, no accessory muscle use Cardiovascular/Chest: normal peripheral pulses, regular rate, rhythm, no edema, no gallop, no JVD, no murmur, tachycardia Gastrointestinal/Abdominal: soft, tenderness - Midepigastric Back Exam: normal inspection, no CVA tenderness Extremity: non-tender, normal inspection Neurologic: no motor/sensory deficits, alert, normal mood/affect, oriented x 3 Skin Exam: normal color, warm/dry Progress - Progress Progress: 12/25/19 13:41 Old records reviewed. Patient has longstanding history of insulin-dependent diabetes. This is her 13th ER visit in 2019, primarily for abdominal pain/vomiting, diabetic complications.[place] [employer] reviewed. She gets regularly scheduled prescriptions of hydrocodone and Valium. 12/25/19 14:12 Patient initially stated no medication allergies. I ordered Reglan for her nausea, but now she states that she was told not to take Reglan by her neurologist. Patient unsure why. 12/25/19 15:26 Rechecked. Patient feeling better after IV fluids and IV Zofran. She reports some ongoing anxiety. She has had no vomiting in the emergency department. No diarrhea. Heart rate down to the 80s. Vital signs normal. Will give her normal p.o. dose of Valium prior to discharge. Recommended follow-up with PCP in 3 to 5 days for recheck. DDX: Diabetic gastroparesis, gastroenteritis, dehydration, low suspicion for ACS MDM: Patient with frequent ER visits for vomiting, suspected to be due to diabetic gastroparesis. Glucose 280 here. Labs normal. No vomiting in the emergency department. I do suspect there is some underlying drug-seeking behavior, as every noncontrolled substance that I offered her to manage her symptoms she told me did not work or she had already taken it. There is certainly no lab or exam evidence of a life-threatening process at this point, no indication for a dmission at this time as she has had no vomiting in the emergency department. She is tolerating p.o. medications. Recommended follow-up with PCP in 3 to 5 days. Matthew Garcia DO [facility] #[id number] - Results/Orders Results/Orders: EKG reviewed personally by me at 1340. Normal sinus rhythm, rate of 95, normal axis, normal intervals, no ST segment elevations or depressions Chest x-ray reviewed by me personally at 1440. No infiltrates, no pneumothorax, no acute process. EXAM DESCRIPTION: Chest,1 View CLINICAL HISTORY: chest pain COMPARISON: Ap [facility] 2019 IMPRESSION: Single AP portable upright view of the chest shows cardiac silhouette and pulmonary vasculature to be within normal limits. Lungs are normally aerated and clear. No obvious pleural effusion or pneumothorax is seen. Electronically signed by: Jerry Delatorre MD 12/25/2019 2:04 PM CDT 12/25/19 13:35 Sodium Chloride 0.9% (Flush) [Saline Flush Syringe] 10 ml IV PRN PRN EKG Stat Pulse Ox Stat 12/25/19 13:37 Pulse Oximetry Assessment DAILY Laboratory Results - last 24 hr 12/25/19 12/25/19 12/25/19 13:30 13:50 13:50 WBC RBC Hgb Hct MCV MCH MCHC RDW Plt Count MPV Absolute Neuts (auto) Absolute Lymphs (auto) Absolute Monos (auto) Absolute Eos (auto) Absolute Basos (auto) Neutrophils % Lymphocytes % Monocytes % Eosinophils % Basophils % Sodium Potassium Chloride Carbon Dioxide Anion Gap BUN Creatinine BUN/Creatinine Ratio POC Glucose 270 H Random Glucose Serum Osmolality Calcium Total Bilirubin 0.4 Direct Bilirubin < 0.1 Indirect Bilirubin 0.3 AST 19 ALT 23 Alkaline Phosphatase 112 Troponin I < 0.02 B-Natriuretic Peptide 17.0 Serum Total Protein 7.3 Albumin 4.1 Lipase 27 12/25/19 12/25/19 13:50 13:50 WBC 8.0 RBC 4.85 Hgb 13.2 Hct 39.9 MCV 82.2 MCH 27.2 MCHC 33.0 RDW 13.3 Plt Count 317 MPV 8.4 Absolute Neuts (auto) 5.60 Absolute Lymphs (auto) 1.90 Absolute Monos (auto) 0.30 Absolute Eos (auto) 0.10 Absolute Basos (auto) 0.10 Neutrophils % 69.5 Lymphocytes % 23.9 Monocytes % 3.8 Eosinophils % 1.7 Basophils % 1.1 Sodium 135 Potassium 4.0 Chloride 104 Carbon Dioxide 23 Anion Gap 12.0 BUN 11 Creatinine 0.49 L BUN/Creatinine Ratio 22.4 H POC Glucose Random Glucose 282 H Serum Osmolality 279.7 Calcium 8.9 Total Bilirubin Direct Bilirubin Indirect Bilirubin AST ALT Alkaline Phosphatase Troponin I B-Natriuretic Peptide Serum Total Protein Albumin Lipase Departure - Departure Clinical Impression: Diabetic gastroparesis, Chronic anxiety, Insulin dependent diabetes mellitus Nausea & vomiting Qualifiers: Vomiting type: unspecified Vomiting Intractability: non-intractable Qualified Code(s): R11.2 - Nausea with vomiting, unspecified Disposition: Discharge to Home or Self Care Departure Forms: ED Discharge - Pt. Copy, Patient Portal Self Enrollment Instructions: Diabetes Diet , Gastroparesis (Delayed Gastric Emptying) Diet: resume usual diet Activity: increase activity as tolerated Referrals: JUSTINO MARQUEZ IV, AUTOMATIC BANDSAW TENDER [Primary Care Provider] - 1-5 Days Prescriptions: Ondansetron Odt [Zofran ODT] 8 mg PO Q8H PRN #12 tab PRN Reason: Nausea Home Medications: Ambulatory Orders Mometasone Furoate [Elocon] 0.1 % TOP DAILY PRN 11/07/17 Epinephrine [Epipen 2-Mikael] 0.3 mg IJ ONCE PRN #1 pack 03/26/18 Buspirone HCl 30 mg PO BID 10/23/18 Diazepam 5 mg PO TID 02/21/19 Insulin Aspart (with Niacinami [Fiasp Flextouch 100 Unit/ml] 100 unit SC ACHS 02/24/19 Insulin Detemir [Levemir Pen] 32 units SUBCU DAILY@0700 02/24/19 Albuterol Inhaler [Ventolin Hfa Inhaler] 1 puff INH BID 02/25/19 Salmeterol Xinafoate [Serevent Diskus] 50 mcg INH DAILY 02/25/19 Promethazine Tab [Phenergan Tablet] 25 mg PO .Q4H #15 tab 07/25/19 Ondansetron Odt [Zofran Odt] 8 mg PO Q6H #20 tab 09/12/19 Gabapentin 300 mg PO TID 11/11/19 Hydrocodone-Acetaminophen [[place] 7.5-325 mg] 1 tab PO PRN 11/11/19 Vilazodone HCl [Viibryd] 40 mg PO DAILY 11/11/19 tiZANidine [Zanaflex] 12 mg PO PRN 11/11/19 Prochlorperazine Tab [Compazine Tab] 10 mg PO Q8HR PRN #10 tab 11/28/19 Ondansetron Odt [Zofran ODT] 8 mg PO Q8H PRN #12 tab 12/25/19
[2019-12-25] MEDS: METOCLOPRAMIDE HCL INJ 10 MG/2 ML VIAL IV ONE ×2 (14:05→14:18)
--- NOTE | 2019-12-25 14:06 | RAD ---
EXAM DESCRIPTION: Chest,1 View CLINICAL HISTORY: chest pain COMPARISON: November 30, 2019 IMPRESSION: Single AP portable upright view of the chest shows cardiac silhouette and pulmonary vasculature to be within normal limits. Lungs are normally aerated and clear. No obvious pleural effusion or pneumothorax is seen. Electronically signed by: Jerry Delatorre MD 12/25/2019 2:04 PM CDT
[2019-12-25] MEDS ORDERED: ONDANSETRON INJ 4 MG/2 ML VIAL IV ONE (14:15)
[2019-12-25] MEDS ORDERED: diazePAM 5 MG TAB PO ONE (15:16)
[2019-12-25 15:25] VITALS: O2SAT 99
[2019-12-25 15:51] VITALS: BP 106/77; TEMP 97.4
== END 2019-12-25 15:32 | disposition home or self-care (01) ==
LOC: ER 13:26
DX: E11.43 Type 2 diabetes mellitus with diabetic autonomic (poly)neuropathy (principal); R11.2 Nausea with vomiting, unspecified; K31.84 Gastroparesis; F41.9 Anxiety disorder, unspecified; F17.200 Nicotine dependence, unspecified, uncomplicated; Z79.4 Long term (current) use of insulin
CPT/HCPCS: 36415; 36416; 71045; 80048; 80076; 82948; 83690; 83880; 84484; 85025; 93005; A4216; J1200; J2405; J3010; J7030

== ENCOUNTER 2020-01-05 01:54 | Emergency (ER) | payer MEDICARE, MEDICAID ==
[2020-01-05] MEDS ORDERED: SODIUM CHLORIDE 0.9% (FLUSH) 10 ML SYG IV PRN (02:04)
[2020-01-05] MEDS ORDERED: SODIUM CHLORIDE 0.9% 1000ML 1,000 ML IVS ONE (02:06)
[2020-01-05 02:10] VITALS: TEMP 97.9; O2SAT 100
--- NOTE | 2020-01-05 02:12 | ED.PDOC ---
History of Present Illness - General Chief Complaint: Trauma Stated Complaint: fell, right knee pain Time Seen by Provider: 01/05/20 02:02 Source: patient - History of Present Illness Initial Comments: 44 yo female with PMH of DM1, chronic pain on Speed who is bib EMS from home for cc of fall and R knee pain, which occurred at home just [employer]IATE. Patient reports that her hair got caught in her bathroom door which pulled her backwards and then she fell forwards onto her anterior right knee and as she was falling she felt her right hip pop and reports some pain to that area as well. CC is anterior right knee pain which is rated as constant 8/10 severity, sharp/throbbing/"all of that", radiates down the anterior right zuniga, worse with any movement of the knee or attempted weightbearing or palpation. Reports a minor abrasion injury to the anterior right knee but denies any bruising/swelling/deformity. 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 Patient well-known to this ED. History of type 1 diabetes with poor compliance/control and frequent history of DKA in the past. She does report compliance with her insulin regimen today. States she usually takes Levemir 20 units in the morning and 8 to 10 units in the evening as well as sliding scale short acting insulin throughout the day. States she last took 8 units of insulin right before bedtime several hours ago but has not checked her sugar in quite a while. Reports chronic nausea from her gastroparesis and poor p.o. intake. Currently reports dry mouth. Denies any fevers, chills, sore throat, cough, chest pain, dyspnea. Reports chronic diffuse abdominal discomfort but is unchanged from usual. She states that she is scheduled to have right knee surgery next week and right hip surgery next month due to chronic pain/arthritis issues. PCP is Zander Comer. Allergies/Adverse Reactions: Allergies Fish Allergy Allergy (Verified 12/25/19 13:45) peanut Allergy (Severe, Uncoded 11/30/19 19:02) Home Medications: Ambulatory Orders Mometasone Furoate [Elocon] 0.1 % TOP DAILY PRN 11/07/17 Epinephrine [Epipen 2-Mikael] 0.3 mg IJ ONCE PRN #1 pack 03/26/18 Buspirone HCl 30 mg PO BID 10/23/18 Diazepam 5 mg PO TID 02/21/19 Insulin Detemir [Levemir Pen] 32 units SUBCU DAILY@0700 02/24/19 Albuterol Inhaler [Ventolin Hfa Inhaler] 1 puff INH PRN PRN 02/25/19 Gabapentin 300 mg PO TID 11/11/19 Hydrocodone-Acetaminophen [Speed 7.5-325 mg] 1 tab PO TID 11/11/19 Vilazodone HCl [Viibryd] 40 mg PO DAILY 11/11/19 tiZANidine [Zanaflex] 12 mg PO PRN 11/11/19 Ondansetron Odt [Zofran ODT] 8 mg PO Q8H PRN #12 tab 12/25/19 Albuterol Sulfate [Proair Hfa] 2 puff INH Q6H PRN 01/01/20 Azelastine HCl [Azelastine Hydrochloride] 0.1 % INH PRN PRN 01/01/20 Benztropine Mesylate 1 mg PO DAILY 01/01/20 Esomeprazole Magnesium [Nexium] 40 mg PO DAILY 01/01/20 Glucagon [Baqsimi One Pack] 3 mg NA PRN 01/01/20 Hydroxyzine HCl [Hydroxyzine Hydrochloride] 50 mg PO QID 01/01/20 Insulin Glargine [Lantus Solostar] 10 unit SC BEDTIME 01/01/20 Insulin Glargine [Lantus Solostar] 25 unit SC DAILY 01/01/20 Mometasone Furoate 0.1 % TOP PRN 01/01/20 Naloxone HCl [Narcan] 4 mg NA PRN 01/01/20 Promethazine Tab [Phenergan Tablet] 25 mg PO .Q4H PRN 01/01/20 Salmeterol Xinafoate [Serevent Diskus] 50 mcg IN PRN 01/01/20 Triamcinolone 0.5% Cream [Kenalog 0.5% Cream] 1 applic TOP PRN 01/01/20 Review of Systems - Review of Systems Review of Systems: 01/05/20 02:12 as per HPI All other Systems: Reviewed and Negative Past Medical History (General) - Patient Medical History Hx Seizures: Yes Hx Stroke: No Hx Dementia: No Hx Asthma: Yes Hx of COPD: No Hx Cardiac Disorders: No Hx Congestive Heart Failure: No Hx Pacemaker: No Hx Hypertension: No Hx Thyroid Disease: No Hx Diabetes: Yes Hx Gastroesophageal Reflux: Yes Hx Renal Disease: No Hx Cancer: No Hx of HIV: No Hx Hepatitis C: No Hx MRSA: No - POS FOR STAFF A AND HAS COMPLETED TREATMENT. MRSA Source:: Wound - Vaccination History Hx Tetanus, Diphtheria Vaccination: No Hx Influenza Vaccination: Yes Hx Pneumococcal Vaccination: Yes - Social History Hx Tobacco Use: Yes Hx Chewing Tobacco Use: No Hx Alcohol Use: Yes Hx Substance Use: Yes Hx Substance Use Treatment: No Hx Depression: Yes Hx Physical Abuse: No Hx Emotional Abuse: No Hx Suspected Abuse: No - Female History Hx Last Menstrual Period: 11/05/11 Patient : Yes Family Medical History - Family History Mother Family History: No Known Name: April Age (years): 70 Living Status: Still Living Hx Family Asthma: No Hx Family Congestive Heart Failure: No Hx Family Hypertension: No Hx Family Stroke: No Hx Cardiac Disease: No Hx Family Diabetes: No Hx Family Cancer: Yes - skin cancer Hx Family;Other: thyroid problems and seizures Father Family History: No Known Name: Marlon Age (years): 68 Living Status: Still Living Hx Family Asthma: - Sister Hx Family Congestive Heart Failure: No Hx Family Hypertension: Yes Hx Family Stroke: No Hx Cardiac Disease: Yes Hx Family Diabetes: No Age of Onset (years of age): 32 Hx Family Cancer: - Grandmother Lymphoma Physical Exam - Physical Exam General Appearance: Alert, No apparent distress Eye Exam: bilateral normal Ears, Nose, Throat: normal pharynx, other - Dry appearing oral mucosa, otherwise appears unremarkable Neck: non-tender, full range of motion, supple, normal inspection Respiratory: lungs clear, normal breath sounds, no respiratory distress, no accessory muscle use Cardiovascular/Chest: normal peripheral pulses, no edema, no gallop, no JVD, no murmur, tachycardia Peripheral Pulses: radial,right: 2+, radial,left: 2+ Gastrointestinal/Abdominal: soft, no organomegaly, other - Patient is crying and writhing around on the bed even before abdomen being palpated, appears very suspicious Back Exam: normal inspection, no CVA tenderness, no vertebral tenderness Extremity: normal capillary refill, pelvis stable, other - Right anterior knee with minor 2 cm superficial abrasion. Otherwise bilateral lower extremities appear normal on inspection without bruising/swelling/deformity. Patient is holding her right knee in slight flexion due to pain. Reports marked TTP to anterior knee, jumping all over the bed and crying in pain even before being pal pated, very suspicious in nature. Refusing even the slightest range of motion of the knee. Reports moderate TTP to right lateral hip. Strength and sensation appear intact throughout pulses 2+ and equal bilaterally throughout. Neurologic: stone rougher II-XII nml as tested, no motor/sensory deficits, alert, normal mood/affect, oriented x 3 Skin Exam: normal color, warm/dry Progress - Progress Progress: 01/05/20 02:15 Ground-level fall, acute right knee pain -Also with right hip popping/pain -Etiology appears mechanical in nature. No head injuries or neck injuries, no red flag symptoms to suggest any life-threatening traumatic etiologies -Consider right knee abrasion and minor contusion most likely, right hip contusion/osteoarthritis. Consider also right knee fracture, right hip fracture but appears unlikely. Consider dehydration, DKA as well given her history. -Obtain x-ray of the right knee and pelvis, obtain basic blood work, place PIV, 1L NS bolus given dry oral mucosa and tachycardia -Patient reports no allergies but then states that she is unable to take Toradol because of her gastroparesis and is unable to take Reglan because of her dystonia -Will give Tylenol 1000 mg p.o. and a cold pack to the right knee for pain control 01/05/20 02:41 -X-ray images of the right knee and hip show no acute processes per my read. Lab work reveals glucose of 269 but patient with normal anion gap. 01/05/20 03:45 -Patient's pain improve rapidly in the ED with conservative measures and Tylenol alone. Discussed diagnosis of acute right knee contusion and right hip contusion as well as continued home care and supportive measures. -DC to home in good condition, return warnings discussed Nicolas Gross MD Billing #[id number] 01/05/20 02:04 Sodium Chloride 0.9% (Flush) [Saline Flush Syringe] 10 ml IV PRN PRN 01/05/20 02:05 IV Care:Saline Lock per Protoc QSHIFT Telemetry .ONCE 01/05/20 02:07 Compress/Pack:Cold ONCE Laboratory Results - last 24 hr 01/05/20 01/05/20 02:12 02:12 WBC 7.8 RBC 4.92 Hgb 13.4 Hct 40.6 MCV 82.5 MCH 27.2 MCHC 32.9 L RDW 13.7 Plt Count 265 MPV 8.4 Absolute Neuts (auto) 4.60 Absolute Lymphs (auto) 2.50 Absolute Monos (auto) 0.40 Absolute Eos (auto) 0.30 Absolute Basos (auto) 0.00 Neutrophils % 58.6 Lymphocytes % 31.9 Monocytes % 5.3 Eosinophils % 3.7 Basophils % 0.5 Sodium 136 Potassium 3.6 Chloride 107 Carbon Dioxide 21 Anion Gap 11.6 L BUN 11 Creatinine 0.59 L BUN/Creatinine Ratio 18.6 Random Glucose 269 H Serum Osmolality 280.8 Calcium 8.7 Departure - Departure Clinical Impression: Contusion of right knee, initial encounter, Contusion of right hip, initial encounter Time of Disposition: 02:39 Disposition: Discharge to Home or Self Care Condition: Good Departure Forms: ED Discharge - Pt. Copy, Patient Portal Self Enrollment Instructions: Contusion (DC) Diet: resume usual diet Activity: increase activity as tolerated Referrals: JUSTINO COMER IV, ENGINE[employer] [Primary Care Provider] - 1-2 Weeks Home Medications: Ambulatory Orders Mometasone Furoate [Elocon] 0.1 % TOP DAILY PRN 11/07/17 Epinephrine [Epipen 2-Mikael] 0.3 mg IJ ONCE PRN #1 pack 03/26/18 Buspirone HCl 30 mg PO BID 10/23/18 Diazepam 5 mg PO TID 02/21/19 Insulin Detemir [Levemir Pen] 32 units SUBCU DAILY@0700 02/24/19 Albuterol Inhaler [Ventolin Hfa Inhaler] 1 puff INH PRN PRN 02/25/19 Gabapentin 300 mg PO TID 11/11/19 Hydrocodone-Acetaminophen [Speed 7.5-325 mg] 1 tab PO TID 11/11/19 Vilazodone HCl [Viibryd] 40 mg PO DAILY 11/11/19 tiZANidine [Zanaflex] 12 mg PO PRN 11/11/19 Ondansetron Odt [Zofran ODT] 8 mg PO Q8H PRN #12 tab 12/25/19 Albuterol Sulfate [Proair Hfa] 2 puff INH Q6H PRN 01/01/20 Azelastine HCl [Azelastine Hydrochloride] 0.1 % INH PRN PRN 01/01/20 Benztropine Mesylate 1 mg PO DAILY 01/01/20 Esomeprazole Magnesium [Nexium] 40 mg PO DAILY 01/01/20 Glucagon [Baqsimi One Pack] 3 mg NA PRN 01/01/20 Hydroxyzine HCl [Hydroxyzine Hydrochloride] 50 mg PO QID 01/01/20 Insulin Glargine [Lantus Solostar] 10 unit SC BEDTIME 01/01/20 Insulin Glargine [Lantus Solostar] 25 unit SC DAILY 01/01/20 Mometasone Furoate 0.1 % TOP PRN 01/01/20 Naloxone HCl [Narcan] 4 mg NA PRN 01/01/20 Promethazine Tab [Phenergan Tablet] 25 mg PO .Q4H PRN 01/01/20 Salmeterol Xinafoate [Serevent Diskus] 50 mcg IN PRN 01/01/20 Triamcinolone 0.5% Cream [Kenalog 0.5% Cream] 1 applic TOP PRN 01/01/20 Additional Instructions: Keep the right knee elevated as often as possible over the next 2 to 3 days to help limit pain and swelling. You may also apply a cold pack to the affected area for 15 to 20 minutes at a time every 2-3 hours for the next 2 to 3 days. You may take Tylenol 650 mg by mouth every 6 hours as needed for pain control in addition to your home chronic pain medications for breakthrough pain. Gradually return to weightbearing and walking as tolerated. Follow-up with your PCP in the next 1 to 2 weeks as recommended or sooner as needed.
[2020-01-05] MEDS ORDERED: ACETAMINOPHEN 500 MG TAB PO ONE (02:17)
--- NOTE | 2020-01-05 02:27 | RAD ---
EXAM: Pelvis 1 View HISTORY: fall, R hip pain COMPARISON: Pelvis 1 view 11/26/2019 TECHNIQUE: Pelvis one view AP FINDINGS: No acute fracture or dislocation. No significant sclerotic/lytic bone lesion. Joint spaces unremarkable. Soft tissues unremarkable. Multiple small round bilateral inferior pelvic calcifications likely represent phleboliths. IMPRESSION: Unremarkable pelvis radiograph. Electronically signed by: Fransico Dickinson MD 01/05/2020 2:25 AM CDT
--- NOTE | 2020-01-05 02:30 | RAD ---
EXAM: Knee,Right Complete HISTORY: fall, anterior R knee injury COMPARISON: Right knee three views 11/26/2019 TECHNIQUE: Right knee three views FINDINGS: No fracture or dislocation. No significant sclerotic/lytic bone lesion. No major joint space narrowing. Small right knee joint effusion. Soft tissues unremarkable. IMPRESSION: No right knee fracture. Electronically signed by: Fransico Dickinson MD 01/05/2020 2:29 AM CDT
[2020-01-05 04:13] VITALS: BP 146/79
== END 2020-01-05 03:10 | disposition home or self-care (01) ==
LOC: ER 01:54
DX: S80.01XA Contusion of right knee, initial encounter (principal); S70.01XA Contusion of right hip, initial encounter; E10.9 Type 1 diabetes mellitus without complications; K31.84 Gastroparesis; F17.200 Nicotine dependence, unspecified, uncomplicated; Z79.899 Other long term (current) drug therapy; W19.XXXA Unspecified fall, initial encounter; Y92.009 Unspecified place in unspecified non-institutional (private) residence as the place of occurrence of the external cause
CPT/HCPCS: 72170; 73562; 80048; 85025; A4216; J7030

== ENCOUNTER 2020-01-06 05:53 | Day surgery (SDC) | payer MEDICARE, MEDICAID ==
[~2020-01-06 05:53] MED LIST changes: -DICYCLOMINE HCL INJ 20 MG/2 ML AMP IM ONE; +LACTATED RINGERS 1,000 ML ONE; -PROMETHAZINE HCL INJ 12.5 MG in SODIUM CHLORIDE 0.9% 50ML 50 ML IVPB ONE; -PROMETHAZINE HCL INJ 25 MG/ML VIAL ONE; +SODIUM CHL 0.9% 100ML MINI-BAG 100 ML IVPB ONE; -SODIUM CHLORIDE 0.9% 1000ML 1,000 ML IVS ONE; +ceFAZolin SODIUM 1 GM VIAL ONE
[2020-01-06] MEDS ORDERED: KETAMINE HCL 100 MG/ML VIAL ONE ×2 (06:30→07:00)
[2020-01-06] MEDS ORDERED: fentaNYL CITRATE INJ 50 MCG/ML 2 ML AMP ONE ×2 (06:31→07:00)
[2020-01-06] MEDS ORDERED: FAMOTIDINE INJ 10 MG/ML VIAL IV ONE ×2 (06:31→07:00)
[2020-01-06] MEDS ORDERED: MIDAZOLAM INJ 5 MG/5 ML VIAL ONE ×2 (06:31→07:00)
[2020-01-06] MEDS ORDERED: BUPIVACAINE 0.5% 30 ML VIAL INJ ONE ×2 (06:38→06:56)
[2020-01-06] MEDS ORDERED: ceFAZolin SODIUM 1 GM VIAL ONE ×2 (06:38→07:46)
[2020-01-06] MEDS ORDERED: BUPIVACAINE LIPOSOME 13.3 MG/ML VIAL INJ ONE ×2 (06:38→06:56)
[2020-01-06] MEDS ORDERED: VANCOMYCIN HCL INJ 1,000 MG VIAL IVPB ONE ×3 (06:38→07:27)
[2020-01-06] MEDS ORDERED: DEXMEDETOMIDINE HCL 200 MCG/2 ML INJ IV ONE (06:44)
[2020-01-06] MEDS ORDERED: ceFAZolin SODIUM 1 GM VIAL IRRIG ONE (06:56)
[2020-01-06] MEDS ORDERED: SODIUM CHLORIDE 0.9% 50 ML VIAL ONE (07:00)
[2020-01-06] MEDS ORDERED: DEXAMETHASONE INJ 10 MG/ML VIAL ONE (07:00)
[2020-01-06] MEDS ORDERED: PROPOFOL 200 MG/20 ML VIAL IV ONE (07:00)
[2020-01-06] MEDS ORDERED: MAGNESIUM SULFATE INJ 1 GM/2 ML VIAL ONE (07:00)
[2020-01-06] MEDS ORDERED: LIDOCAINE 1% 10 ML VIAL INJ ONE (07:00)
[2020-01-06] MEDS ORDERED: HYDROmorphone HCL INJ 2 MG/ML VIAL ONE (08:31)
[2020-01-06] MEDS ORDERED: HYDROmorphone HCL INJ 2 MG/ML VIAL IV ONE ×5 (08:35→09:30)
[2020-01-06] MEDS ORDERED: ONDANSETRON INJ 4 MG/2 ML VIAL ONE (08:37)
[2020-01-06] MEDS ORDERED: ONDANSETRON INJ 4 MG/2 ML VIAL IV ONE ×3 (08:40→20:07)
[2020-01-06] MEDS ORDERED: DEXTROSE 5% 100ML 100 ML IVPB ONE (09:17)
[2020-01-06] MEDS ORDERED: HYDROcodone 5MG/APAP 325MG 1 EA TAB ONE (10:06)
[2020-01-06] MEDS ORDERED: HYDROcodone 5MG/APAP 325MG 1 EA TAB PO ONE (10:10)
[2020-01-06] MEDS ORDERED: SODIUM CHLORIDE 0.9% (FLUSH) 10 ML SYG IV PRN (18:30)
[2020-01-06] MEDS ORDERED: MORPHINE SULFATE INJ 10 MG/ML VIAL IV ONE ×2 (18:32→19:33)
[2020-01-06] MEDS ORDERED: SODIUM CHLORIDE 0.9% 1000ML 1,000 ML IVS ONE ×3 (18:32→21:52)
--- NOTE | 2020-01-06 18:36 | ED.PDOC ---
History of Present Illness - General Chief Complaint: Diabetic Complaint Stated Complaint: elevated glucose,abd pain,leg pain Time Seen by Provider: 01/06/20 18:19 Source: patient, RN notes reviewed, Vital Signs reviewed, old records Exam Limitations: no limitations - History of Present Illness Initial Comments: Patient is a 44-year-old female with poorly controlled type 1 diabetes. She presents the ED today for hyperglycemia, crampy abdominal pain and nausea. She had a right knee arthroscopic surgery this morning at this facility, then went home and slept until about 3 PM. Whenever she awoke she felt nauseated and checked her blood sugar and it was greater than 400. States she took 12 units of insulin at home without any improvement. States she took her home medications of hydrocodone, tramadol and Valium for right knee pain this afternoon, but vomited and does not think she held any of them down. Reports she has achy diffuse pain to her right knee. Denies any erythema or warmth to the area. Allergies/Adverse Reactions: Allergies Fish Allergy Allergy (Verified 12/25/19 13:45) peanut Allergy (Severe, Uncoded 11/30/19 19:02) Home Medications: Ambulatory Orders Mometasone Furoate [Elocon] 0.1 % TOP DAILY PRN 11/07/17 Epinephrine [Epipen 2-Mikael] 0.3 mg IJ ONCE PRN #1 pack 03/26/18 Buspirone HCl 30 mg PO BID 10/23/18 Diazepam 5 mg PO TID 02/21/19 Insulin Detemir [Levemir Pen] 32 units SUBCU DAILY@0700 02/24/19 Albuterol Inhaler [Ventolin Hfa Inhaler] 1 puff INH PRN PRN 02/25/19 Gabapentin 300 mg PO TID 11/11/19 Hydrocodone-Acetaminophen [Epsom 7.5-325 mg] 1 tab PO TID 11/11/19 Vilazodone HCl [Viibryd] 40 mg PO DAILY 11/11/19 tiZANidine [Zanaflex] 12 mg PO PRN 11/11/19 Ondansetron Odt [Zofran ODT] 8 mg PO Q8H PRN #12 tab 12/25/19 Albuterol Sulfate [Proair Hfa] 2 puff INH Q6H PRN 01/01/20 Azelastine HCl [Azelastine Hydrochloride] 0.1 % INH PRN PRN 01/01/20 Benztropine Mesylate 1 mg PO DAILY 01/01/20 Esomeprazole Magnesium [Nexium] 40 mg PO DAILY 01/01/20 Glucagon [Baqsimi One Pack] 3 mg NA PRN 01/01/20 Hydroxyzine HCl [Hydroxyzine Hydrochloride] 50 mg PO QID 01/01/20 Insulin Glargine [Lantus Solostar] 10 unit SC BEDTIME 01/01/20 Insulin Glargine [Lantus Solostar] 25 unit SC DAILY 01/01/20 Mometasone Furoate 0.1 % TOP PRN 01/01/20 Naloxone HCl [Narcan] 4 mg NA PRN 01/01/20 Promethazine Tab [Phenergan Tablet] 25 mg PO .Q4H PRN 01/01/20 Salmeterol Xinafoate [Serevent Diskus] 50 mcg IN PRN 01/01/20 Triamcinolone 0.5% Cream [Kenalog 0.5% Cream] 1 applic TOP PRN 01/01/20 Review of Systems - Review of Systems Constitutional: Denies: chills, fever EENTM: Denies: blurred vision, double vision, nose congestion Respiratory: Denies: cough, short of breath Cardiology: Denies: chest pain, palpitations, syncope Gastrointestinal/Abdominal: States: abdominal pain - crampy, nausea, vomiting Genitourinary: Denies: dysuria, frequency, hematuria Musculoskeletal: States: other - right knee pain post surgery today Skin: States: no symptoms reported Neurological: Denies: headache, paresthesia, weakness All other Systems: Reviewed and Negative Past Medical History (General) - Patient Medical History Hx Seizures: Yes Hx Stroke: No Hx Dementia: No Hx Asthma: Yes Hx of COPD: No Hx Cardiac Disorders: No Hx Congestive Heart Failure: No Hx Pacemaker: No Hx Hypertension: No Hx Thyroid Disease: No Hx Diabetes: Yes Hx Gastroesophageal Reflux: Yes Hx Renal Disease: No Hx Cancer: No Hx of HIV: No Hx Hepatitis C: No Hx MRSA: No - POS FOR STAFF A AND HAS COMPLETED TREATMENT. MRSA Source:: Wound - Vaccination History Hx Tetanus, Diphtheria Vaccination: No Hx Influenza Vaccination: Yes Hx Pneumococcal Vaccination: Yes - Social History Hx Tobacco Use: Yes Hx Chewing Tobacco Use: No Hx Alcohol Use: Yes Hx Substance Use: Yes Hx Substance Use Treatment: No Hx Depression: Yes Hx Physical Abuse: No Hx Emotional Abuse: No Hx Suspected Abuse: No - Female History Hx Last Menstrual Period: 11/05/11 Patient : Yes Family Medical History - Family History Mother Family History: No Known Name: April Age (years): 70 Living Status: Still Living Hx Family Asthma: No Hx Family Congestive Heart Failure: No Hx Family Hypertension: No Hx Family Stroke: No Hx Cardiac Disease: No Hx Family Diabetes: No Hx Family Cancer: Yes - skin cancer Hx Family;Other: thyroid problems and seizures Father Family History: No Known Name: Marlon Age (years): 68 Living Status: Still Living Hx Family Asthma: - Sister Hx Family Congestive Heart Failure: No Hx Family Hypertension: Yes Hx Family Stroke: No Hx Cardiac Disease: Yes Hx Family Diabetes: No Age of Onset (years of age): 32 Hx Family Cancer: - Grandmother Lymphoma Physical Exam - Physical Exam General Appearance: Alert, No apparent distress Ears, Nose, Throat: other - dry oral mucosa Neck: full range of motion, supple Respiratory: chest non-tender, lungs clear, normal breath sounds, no respiratory distress, no accessory muscle use Cardiovascular/Chest: no edema, tachycardia Gastrointestinal/Abdominal: non tender, soft, no pulsatile mass Back Exam: no CVA tenderness, no vertebral tenderness Extremity: other - Right knee has surgical bandage in place with no erythema. Dressing is clean. no calf tenderness. 2+ distal pulses to BLE Neurologic: no motor/sensory deficits, alert, normal mood/affect Skin Exam: normal color, warm/dry Progress - Progress Progress: 01/06/20 19:24 Patient presented to ED for elevated blood sugar, nausea and vomiting. Initial labs show a blood glucose of 609. Negative serum ketones and anion gap and CO2 are normal. Will treat with 2 L of IV fluids and 10 units of IV insulin and recheck blood sugar at that time. No sign of DKA at this time. 01/06/20 21:53 After IVF and insulin, blood glucose 440. Will give additional 1L NS and 10 units IV regular insulin and recheck blood glucose. 01/06/20 22:01 Pt has frequent requests for pain medications and anxiety meds. Have treated with multiple doses of Morphine. Discussed with patient she has chronic pain and will treat with Epsom as she takes at home for this pain. 01/06/20 22:58 Repeat glucose 260. Pt feels improved and tolerating po fluids and feels comfortable going home. Will f/u with pcp in 1-2 days for recheck. - Results/Orders Results/Orders: EKG--sinus tachycardia, rate 105, nml intervals, no ST abnormality CHEST XRAY IMPRESSION: 1. New right basilar atelectasis. 2. Partially visualized degenerative disease in the right shoulder. Query clinical evidence of right rotator cuff compromise? 01/06/20 18:30 Sodium Chloride 0.9% (Flush) [Saline Flush Syringe] 10 ml IV PRN PRN EKG STAT 01/07/20 09:00 Pulse Ox Daily 01/07/20 18:30 EKG STAT Laboratory Results - last 24 hr 01/06/20 01/06/20 01/06/20 18:39 18:39 18:39 WBC 11.0 H D RBC 4.73 Hgb 12.8 Hct 39.7 MCV 83.9 MCH 27.1 MCHC 32.3 L RDW 13.7 Plt Count 239 MPV 8.4 Absolute Neuts (auto) 10.00 H Absolute Lymphs (auto) 0.70 L Absolute Monos (auto) 0.30 Absolute Eos (auto) 0.00 Absolute Basos (auto) 0.00 Neutrophils % 90.3 H Lymphocytes % 6.8 L Monocytes % 2.6 Eosinophils % 0.1 L Basophils % 0.2 Sodium 130 L Potassium 4.6 Chloride 97 L Carbon Dioxide 22 Anion Gap 15.6 BUN 20 H D Creatinine 0.74 BUN/Creatinine Ratio 27.0 H POC Glucose > 400 H* D Random Glucose 609 H* Serum Osmolality 291.8 Calcium 8.8 Total Bilirubin 0.5 AST 28 ALT 27 Alkaline Phosphatase 134 H Serum Total Protein 7.3 Albumin 3.9 Globulin 3.4 Albumin/Globulin Ratio 1.1 Urine Color Urine Appearance Urine pH Ur Specific [place] Urine Protein Urine Glucose (UA) Urine Ketones Urine Blood Urine Nitrite Urine Bilirubin Urine Urobilinogen Ur Leukocyte Esterase Urine RBC Urine WBC Ur Epithelial Cells Urine Bacteria Serum Ketones Negative 01/06/20 01/06/20 01/06/20 18:40 18:41 20:13 WBC RBC Hgb Hct MCV MCH MCHC RDW Plt Count MPV Absolute Neuts (auto) Absolute Lymphs (auto) Absolute Monos (auto) Absolute Eos (auto) Absolute Basos (auto) Neutrophils % Lymphocytes % Monocytes % Eosinophils % Basophils % Sodium Potassium Chloride Carbon Dioxide Anion Gap BUN Creatinine BUN/Creatinine Ratio POC Glucose > 400 H* Random Glucose Cancelled Serum Osmolality Calcium Total Bilirubin AST ALT Alkaline Phosphatase Serum Total Protein Albumin Globulin Albumin/Globulin Ratio Urine Color Yellow Urine Appearance Clear Urine pH 6.5 Ur Specific [place] 1.010 Urine Protein Negative Urine Glucose (UA) 500 H Urine Ketones Trace Urine Blood Small H Urine Nitrite Negative Urine Bilirubin Negative Urine Urobilinogen 0.2 Ur Leukocyte Esterase Negative Urine RBC 1-3 Urine WBC 0 Ur Epithelial Cells 0-1 Urine Bacteria 0 Serum Ketones 01/06/20 01/06/20 01/06/20 20:16 21:23 21:27 WBC RBC Hgb Hct MCV MCH MCHC RDW Plt Count MPV Absolute Neuts (auto) Absolute Lymphs (auto) Absolute Monos (auto) Absolute Eos (auto) Absolute Basos (auto) Neutrophils % Lymphocytes % Monocytes % Eosinophils % Basophils % Sodium Potassium Chloride Carbon Dioxide Anion Gap BUN Creatinine BUN/Creatinine Ratio POC Glucose > 400 H* Random Glucose Cancelled 449 H* Serum Osmolality Calcium Total Bilirubin AST ALT Alkaline Phosphatase Serum Total Protein Albumin Globulin Albumin/Globulin Ratio Urine Color Urine Appearance Urine pH Ur Specific [place] Urine Protein Urine Glucose (UA) Urine Ketones Urine Blood Urine Nitrite Urine Bilirubin Urine Urobilinogen Ur Leukocyte Esterase Urine RBC Urine WBC Ur Epithelial Cells Urine Bacteria Serum Ketones 01/06/20 23:02 WBC RBC Hgb Hct MCV MCH MCHC RDW Plt Count MPV Absolute Neuts (auto) Absolute Lymphs (auto) Absolute Monos (auto) Absolute Eos (auto) Absolute Basos (auto) Neutrophils % Lymphocytes % Monocytes % Eosinophils % Basophils % Sodium Potassium Chloride Carbon Dioxide Anion Gap BUN Creatinine BUN/Creatinine Ratio POC Glucose 256 H D Random Glucose Serum Osmolality Calcium Total Bilirubin AST ALT Alkaline Phosphatase Serum Total Protein Albumin Globulin Albumin/Globulin Ratio Urine Color Urine Appearance Urine pH Ur Specific [place] Urine Protein Urine Glucose (UA) Urine Ketones Urine Blood Urine Nitrite Urine Bilirubin Urine Urobilinogen Ur Leukocyte Esterase Urine RBC Urine WBC Ur Epithelial Cells Urine Bacteria Serum Ketones Departure - Departure Clinical Impression: Hyperglycemia due to type 1 diabetes mellitus Vomiting Qualifiers: Vomiting type: unspecified Vomiting Intractability: non-intractable Nausea presence: with nausea Qualified Code(s): R11.2 - Nausea with vomiting, unspecified Time of Disposition: 22:59 Disposition: Discharge to Home or Self Care Condition: Good Departure Forms: ED Discharge - Pt. Copy, Patient Portal Self Enrollment Instructions: DI for Diabetes Type 1 -- Adult Diet: diabetic diet Activity: increase activity as tolerated Referrals: JUSTINO MARQUEZ IV, [facility] [Primary Care Provider] - 1-2 Days Home Medications: Ambulatory Orders Mometasone Furoate [Elocon] 0.1 % TOP DAILY PRN 11/07/17 Epinephrine [Epipen 2-Mikael] 0.3 mg IJ ONCE PRN #1 pack 03/26/18 Buspirone HCl 30 mg PO BID 10/23/18 Diazepam 5 mg PO TID 02/21/19 Insulin Detemir [Levemir Pen] 32 units SUBCU DAILY@0700 02/24/19 Albuterol Inhaler [Ventolin Hfa Inhaler] 1 puff INH PRN PRN 02/25/19 Gabapentin 300 mg PO TID 11/11/19 Hydrocodone-Acetaminophen [Epsom 7.5-325 mg] 1 tab PO TID 11/11/19 Vilazodone HCl [Viibryd] 40 mg PO DAILY 11/11/19 tiZANidine [Zanaflex] 12 mg PO PRN 11/11/19 Ondansetron Odt [Zofran ODT] 8 mg PO Q8H PRN #12 tab 12/25/19 Albuterol Sulfate [Proair Hfa] 2 puff INH Q6H PRN 01/01/20 Azelastine HCl [Azelastine Hydrochloride] 0.1 % INH PRN PRN 01/01/20 Benztropine Mesylate 1 mg PO DAILY 01/01/20 Esomeprazole Magnesium [Nexium] 40 mg PO DAILY 01/01/20 Glucagon [Baqsimi One Pack] 3 mg NA PRN 01/01/20 Hydroxyzine HCl [Hydroxyzine Hydrochloride] 50 mg PO QID 01/01/20 Insulin Glargine [Lantus Solostar] 10 unit SC BEDTIME 01/01/20 Insulin Glargine [Lantus Solostar] 25 unit SC DAILY 01/01/20 Mometasone Furoate 0.1 % TOP PRN 01/01/20 Naloxone HCl [Narcan] 4 mg NA PRN 01/01/20 Promethazine Tab [Phenergan Tablet] 25 mg PO .Q4H PRN 01/01/20 Salmeterol Xinafoate [Serevent Diskus] 50 mcg IN PRN 01/01/20 Triamcinolone 0.5% Cream [Kenalog 0.5% Cream] 1 applic TOP PRN 01/01/20
[2020-01-06] MEDS ORDERED: INSULIN, REG.(HUMAN) 100 U/ML VIAL IV ONE ×2 (19:00→21:52)
--- NOTE | 2020-01-06 19:22 | RAD ---
EXAM: AP CHEST RADIOGRAPH CLINICAL INDICATION: Hyperglycemia. COMPARISON: Compared to chest radiograph of December 25, 2019. FINDINGS: Cardiac size and pulmonary vasculature are normal. New right basilar consolidation. No pleural effusions. No pneumothorax, pneumomediastinum or free peritoneal gas. No hilar or mediastinal lymphadenopathy. No mediastinal widening. Partially visualized degenerative disease in the right shoulder with narrowing of the right subacromial space. Query clinical evidence of right rotator cuff compromise? Bones are intact on this single view. IMPRESSION: 1. New right basilar atelectasis. 2. Partially visualized degenerative disease in the right shoulder. Query clinical evidence of right rotator cuff compromise? Electronically signed by: Luis Eduardo Go MD 01/06/2020 7:20 PM CDT
[2020-01-06] MEDS ORDERED: diazePAM 5 MG TAB PO ONE (19:54)
[2020-01-06] MEDS ORDERED: HYDROcodone 7.5MG/APAP 325MG 1 EA TAB PO ONE (22:00)
[2020-01-06 23:58] VITALS: BP 122/79; TEMP 97.6; O2SAT 100
--- NOTE | 2020-01-11 09:25 | OP ---
DATE OF PROCEDURE: 02/02/20 PREOPERATIVE DIAGNOSIS: 1. Osteoarthritis of the knee. POSTOPERATIVE DIAGNOSIS: 1. Osteoarthritis of the knee. PROCEDURE: 1. Debridement of the knee. SURGEON: Ramos Maradiaga MD. ENGINE OILER: Marlon Dale CST, SA-C. ANESTHESIA: General anesthesia. COMPLICATIONS: None. FINDINGS: 1. Full thickness defect on the medial femoral condyle. 2. Softening of the femoral and tibial cartilage of the medial compartment. 3. Normal ACL, normal PCL. 4. Softening of the cartilage and degenerative fraying of the meniscus in the lateral compartment. 5. Normal lateral gutter. 6. Full thickness cartilage loss on the patellar surface. 7. Large osteophytes on the trochlear groove. 8. Normal medial gutter. INDICATION: Shwetha has a long history of pain in the knee. She has had multiple conservative measures, however, has failed to gain relief. Because of her ongoing pain, she has requested operative intervention. After discussing the risks, benefits and alternatives to operative intervention, the patient has given informed consent for knee arthroscopy. PROCEDURE: The patient was brought to the Operating Room and placed in supine position. General anesthesia was induced and the patient's leg was sterilely prepped and draped. Following prepping and draping, standard anteromedial and anterolateral portals were established. Diagnostic arthroscopy was carried out with the above findings. Attention was then focused on the medial compartment where a 3.5 mm full radius shaver was used to debride the medial femoral condyle. Following that, attention was focused on the trochlear groove. Two large osteophytes were removed. A 3.5 mm full radius shaver was used to also debride the chondral surface of the patella. After debridement and removal of osteophytes, the knee was very thoroughly irrigated. The wounds were closed with Nylon suture. The patient was awoken from anesthesia and taken to Recovery. POSTOPERATIVE PLAN: The patient will be partial weightbearing and will followup with us in two days. #[id number] [facility]
== END 2020-01-06 11:30 | disposition home or self-care (01) ==
LOC: AMB 05:53
PROVIDERS: ATTEND Orthopaedic Surgery
DX: M17.11 Unilateral primary osteoarthritis, right knee (principal); M25.761 Osteophyte, right knee; I10 Essential (primary) hypertension; E11.9 Type 2 diabetes mellitus without complications; K21.9 Gastro-esophageal reflux disease without esophagitis; F17.200 Nicotine dependence, unspecified, uncomplicated; Z79.899 Other long term (current) drug therapy
CPT/HCPCS: 01400; 29877; 36415; 36416; 71045; 80053; 80307; 81001; 82009; 82947; 82948; 85025; 93005; A4216; J0690; J1100; J1170; J2250; J2270; J2405; J3010; J3370; J3475; J3490; J7030; J7050; J7120

== ENCOUNTER 2020-01-14 16:33 | Emergency (ER) | payer MEDICARE, MEDICAID ==
[2020-01-14] MEDS ORDERED: ONDANSETRON INJ 4 MG/2 ML VIAL IV ONE (16:52)
--- NOTE | 2020-01-14 16:56 | ED.PDOC ---
History of Present Illness - General Time Seen by Provider: 01/14/20 16:43 Additional Information: Patient is a 44-year-old female who presents to the ED with chief complaint of chest pain and abdominal pain. Patient indicates that her symptoms began approximately 3 hours ago and have been constant and not improving. She describes the pain as sharp in her chest and her abdomen, 10/10. She indicates she has also some left shoulder pain. Patient indicates she has a history of gastroparesis and says that her abdominal pain with associated nausea, vomiting and diarrhea are very typical for her. She indicates that her chest pain is unusual for her and she denies any history of CAD or other cardiac elements. Patient says "they told me I have a piece of bad bowel". Patient denies fever, chills, cough. She feels weak and dehydrated. - History of Present Illness Allergies/Adverse Reactions: Allergies Fish Allergy Allergy (Verified 01/14/20 17:07) Metoclopramide [From Reglan] Adverse Reaction (Verified 01/14/20 17:42) peanut Allergy (Severe, Uncoded 11/30/19 19:02) Home Medications: Ambulatory Orders Mometasone Furoate [Elocon] 0.1 % TOP DAILY PRN 11/07/17 Epinephrine [Epipen 2-Mikael] 0.3 mg IJ ONCE PRN #1 pack 03/26/18 Buspirone HCl 30 mg PO BID 10/23/18 Diazepam 5 mg PO TID 02/21/19 Insulin Detemir [Levemir Pen] 32 units SUBCU DAILY@0700 02/24/19 Albuterol Inhaler [Ventolin Hfa Inhaler] 1 puff INH PRN PRN 02/25/19 Gabapentin 300 mg PO TID 11/11/19 Hydrocodone-Acetaminophen [[place] 7.5-325 mg] 1 tab PO TID 11/11/19 Vilazodone HCl [Viibryd] 40 mg PO DAILY 11/11/19 tiZANidine [Zanaflex] 12 mg PO PRN 11/11/19 Ondansetron Odt [Zofran ODT] 8 mg PO Q8H PRN #12 tab 12/25/19 Albuterol Sulfate [Proair Hfa] 2 puff INH Q6H PRN 01/01/20 Azelastine HCl [Azelastine Hydrochloride] 0.1 % INH PRN PRN 01/01/20 Benztropine Mesylate 1 mg PO DAILY 01/01/20 Esomeprazole Magnesium [Nexium] 40 mg PO DAILY 01/01/20 Glucagon [Baqsimi One Pack] 3 mg NA PRN 01/01/20 Hydroxyzine HCl [Hydroxyzine Hydrochloride] 50 mg PO QID 01/01/20 Insulin Glargine [Lantus Solostar] 10 unit SC BEDTIME 01/01/20 Insulin Glargine [Lantus Solostar] 25 unit SC DAILY 01/01/20 Mometasone Furoate 0.1 % TOP PRN 01/01/20 Naloxone HCl [Narcan] 4 mg NA PRN 01/01/20 Promethazine Tab [Phenergan Tablet] 25 mg PO .Q4H PRN 01/01/20 Salmeterol Xinafoate [Serevent Diskus] 50 mcg IN PRN 01/01/20 Triamcinolone 0.5% Cream [Kenalog 0.5% Cream] 1 applic TOP PRN 01/01/20 Acetaminophen W/ Codeine [Tylenol W/ CODEINE #3] 1 ea PO Q6H PRN #20 01/14/20 Promethazine Tab [Phenergan Tablet] 25 mg PO Q6H PRN #12 tab 01/14/20 Review of Systems - Review of Systems Constitutional: States: no symptoms reported. Denies: chills, fever EENTM: States: no symptoms reported Respiratory: States: no symptoms reported. Denies: cough, short of breath Cardiology: States: chest pain. Denies: palpitations Gastrointestinal/Abdominal: States: abdominal pain, diarrhea, nausea, vomiting Genitourinary: States: no symptoms reported. Denies: dysuria Musculoskeletal: States: no symptoms reported Skin: States: dryness - Patient has chronic eczema Neurological: States: no symptoms reported All other Systems: Reviewed and Negative Past Medical History (General) - Patient Medical History Hx Seizures: Yes Hx Stroke: No Hx Dementia: No Hx Asthma: Yes Hx of COPD: No Hx Cardiac Disorders: No Hx Congestive Heart Failure: No Hx Pacemaker: No Hx Hypertension: No Hx Thyroid Disease: No Hx Diabetes: Yes Hx Gastroesophageal Reflux: Yes Hx Renal Disease: No Hx Cancer: No Hx of HIV: No Hx Hepatitis C: No Hx MRSA: No - POS FOR STAFF A AND HAS COMPLETED TREATMENT. MRSA Source:: Wound - Vaccination History Hx Tetanus, Diphtheria Vaccination: No Hx Influenza Vaccination: Yes Hx Pneumococcal Vaccination: Yes - Social History Hx Tobacco Use: Yes Hx Chewing Tobacco Use: No Hx Alcohol Use: Yes Hx Substance Use: Yes Hx Substance Use Treatment: No Hx Depression: Yes Hx Physical Abuse: No Hx Emotional Abuse: No Hx Suspected Abuse: No - Female History Hx Last Menstrual Period: 11/05/11 Patient : Yes Family Medical History - Family History Mother Family History: No Known Name: April Age (years): 70 Living Status: Still Living Hx Family Asthma: No Hx Family Congestive Heart Failure: No Hx Family Hypertension: No Hx Family Stroke: No Hx Cardiac Disease: No Hx Family Diabetes: No Hx Family Cancer: Yes - skin cancer Hx Family;Other: thyroid problems and seizures Father Family History: No Known Name: Marlon Age (years): 68 Living Status: Still Living Hx Family Asthma: - Sister Hx Family Congestive Heart Failure: No Hx Family Hypertension: Yes Hx Family Stroke: No Hx Cardiac Disease: Yes Hx Family Diabetes: No Age of Onset (years of age): 32 Hx Family Cancer: - Grandmother Lymphoma Physical Exam - Physical Exam General Appearance: Alert, Anxious, Other - Appears older than stated age, mild distress Eyes, Ears, Nose, Throat Exam: other - Mucous membranes are dry Neck: non-tender, full range of motion, supple Respiratory: chest non-tender, lungs clear, normal breath sounds, accessory muscle use, other - Tachypnea Cardiovascular/Chest: no edema, no gallop, no JVD, no murmur, tachycardia Gastrointestinal/Abdominal: normal bowel sounds, soft, guarding, tenderness - Moderate diffuse Extremity: normal range of motion, non-tender, normal inspection Neurologic: staff counselor II-XII nml as tested, no motor/sensory deficits, alert, normal mood/affect, oriented x 3 Skin Exam: normal color, other - Skin to face and neck is extremely dry and flaky Progress - Progress Progress: 01/14/20 19:37 Differential diagnosis includes but is not limited to gastroparesis, bowel obstruction, PE, pneumonia, ACS. Patient seen and reassessed. She is feeling slightly better at this time. Patient's labs are unremarkable except for hyperglycemia but patient is not in DKA. Her hyperglycemia was addressed with subcutaneous insulin and IV fluids. CT chest was done because patient was tachycardic, dyspneic and complaining of shortness of breath but her chest CT is unremarkable as is her abdominal CT and clinically patient is suffering from a gastroparesis exacerbation with anxiety. Review of EMR reveals multiple ED visits for very similar symptoms and I discussed with patient that she is not suffering an emergent condition today and that she is a suitable candidate for discharge home with symptomatic medication and follow-up outpatient. Vital signs stable, patient is NAD and looks clinically well and I believe is safe for discharge with outpatient follow-up. Follow-up instructions, discharge instructions and return to ED precautions discussed with patient. Patient voices understanding and willingness to comply with instructions. All laboratory and radiographic results have been discussed with the patient, and all questions answered. Patient is happy with plan. - EKG/XRAY/CT Comments: EKG: Normal sinus rhythm, rate 91, left axis deviation, normal QRS, Q waves Departure - Departure Clinical Impression: Gastroparesis diabeticorum, Volume depletion Vomiting Qualifiers: Vomiting type: cyclical vomiting syndrome unrelated to migraine Qualified Code(s): R11.15 - Cyclical vomiting syndrome unrelated to migraine Diabetes mellitus with hyperglycemia Qualifiers: Diabetes mellitus type: other specified (including DORY) Diabetes mellitus mcc insulin use: with mcc use Qualified Code(s): E13.65 - Other specified diabetes mellitus with hyperglycemia; Z79.4 - snf (current) use of insulin Disposition: Discharge to Home or Self Care Condition: Fair Instructions: Gastroparesis (Delayed Gastric Emptying) (DC) Referrals: JUSTINO MARQUEZ IV, [employer] [Primary Care Provider] - 1-5 Days Prescriptions: Acetaminophen W/ Codeine [Tylenol W/ CODEINE #3] 1 ea PO Q6H PRN #20 PRN Reason: Pain Promethazine Tab [Phenergan Tablet] 25 mg PO Q6H PRN #12 tab PRN Reason: Vomiting Home Medications: Ambulatory Orders Mometasone Furoate [Elocon] 0.1 % TOP DAILY PRN 11/07/17 Epinephrine [Epipen 2-Mikael] 0.3 mg IJ ONCE PRN #1 pack 03/26/18 Buspirone HCl 30 mg PO BID 10/23/18 Diazepam 5 mg PO TID 02/21/19 Insulin Detemir [Levemir Pen] 32 units SUBCU DAILY@0700 02/24/19 Albuterol Inhaler [Ventolin Hfa Inhaler] 1 puff INH PRN PRN 02/25/19 Gabapentin 300 mg PO TID 11/11/19 Hydrocodone-Acetaminophen [[place] 7.5-325 mg] 1 tab PO TID 11/11/19 Vilazodone HCl [Viibryd] 40 mg PO DAILY 11/11/19 tiZANidine [Zanaflex] 12 mg PO PRN 11/11/19 Ondansetron Odt [Zofran ODT] 8 mg PO Q8H PRN #12 tab 12/25/19 Albuterol Sulfate [Proair Hfa] 2 puff INH Q6H PRN 01/01/20 Azelastine HCl [Azelastine Hydrochloride] 0.1 % INH PRN PRN 01/01/20 Benztropine Mesylate 1 mg PO DAILY 01/01/20 Esomeprazole Magnesium [Nexium] 40 mg PO DAILY 01/01/20 Glucagon [Baqsimi One Pack] 3 mg NA PRN 01/01/20 Hydroxyzine HCl [Hydroxyzine Hydrochloride] 50 mg PO QID 01/01/20 Insulin Glargine [Lantus Solostar] 10 unit SC BEDTIME 01/01/20 Insulin Glargine [Lantus Solostar] 25 unit SC DAILY 01/01/20 Mometasone Furoate 0.1 % TOP PRN 01/01/20 Naloxone HCl [Narcan] 4 mg NA PRN 01/01/20 Promethazine Tab [Phenergan Tablet] 25 mg PO .Q4H PRN 01/01/20 Salmeterol Xinafoate [Serevent Diskus] 50 mcg IN PRN 01/01/20 Triamcinolone 0.5% Cream [Kenalog 0.5% Cream] 1 applic TOP PRN 01/01/20 Acetaminophen W/ Codeine [Tylenol W/ CODEINE #3] 1 ea PO Q6H PRN #20 01/14/20 Promethazine Tab [Phenergan Tablet] 25 mg PO Q6H PRN #12 tab 01/14/20
[2020-01-14 17:07] VITALS: TEMP 99; O2SAT 99
[2020-01-14] MEDS: SODIUM CHLORIDE 0.9% 1000ML 1,000 ML IVS ONE ×2 (17:36→19:21)
[2020-01-14] MEDS: HYDROmorphone HCL INJ 2 MG/ML VIAL IV ONE (17:40)
[2020-01-14] MEDS: METOCLOPRAMIDE HCL INJ 10 MG/2 ML VIAL IV ONE (17:41)
--- NOTE | 2020-01-14 17:59 | RAD ---
EXAM DESCRIPTION: Chest,1 View CLINICAL HISTORY: 44 years Female CP COMPARISON: 10/06/2019 FINDINGS: The cardiomediastinal silhouette appears unremarkable. No consolidating infiltrates or pleural effusions. No pneumothorax. IMPRESSION: No acute abnormality is identified. Electronically signed by: Mignon Lisa MD 01/14/2020 5:57 PM CDT
[2020-01-14] MEDS: PROMETHAZINE HCL INJ 12.5 MG in SODIUM CHLORIDE 0.9% 50ML 50 ML IVPB ONE (18:04)
--- NOTE | 2020-01-14 19:08 | CT ---
EXAM: CT Angiography Chest With Intravenous Contrast CLINICAL HISTORY: The patient is 44 years old and is Female; CP TECHNIQUE: Axial computed tomographic angiography images of the chest with intravenous contrast. Sagittal and coronal reformatted images were created and reviewed. This CT exam was performed using one or more of the following dose reduction techniques: automated exposure control, adjustment of the mA and/or kV according to patient size, and/or use of iterative reconstruction technique. MIP reconstructed images were created and reviewed. COMPARISON: No relevant prior studies available. FINDINGS: Pulmonary arteries: Unremarkable. No pulmonary embolism. Aorta: No aortic aneurysm or dissection. Lungs: Unremarkable. No mass. No consolidation. Pleural space: Unremarkable. No significant effusion. No pneumothorax. Heart: Unremarkable. No cardiomegaly. No significant pericardial effusion. No evidence of RV dysfunction. Bones/joints: No acute fracture. No dislocation. Soft tissues: Unremarkable. Lymph nodes: Unremarkable. No enlarged lymph nodes. A single impression for all exams can be found at the end of this report EXAM: CT Abdomen and Pelvis With Intravenous Contrast CLINICAL HISTORY: The patient is 44 years old and is Female; CP TECHNIQUE: Axial computed tomography images of the abdomen and pelvis with intravenous contrast. Sagittal and coronal reformatted images were created and reviewed. This CT exam was performed using one or more of the following dose reduction techniques: automated exposure control, adjustment of the mA and/or kV according to patient size, and/or use of iterative reconstruction technique. COMPARISON: January 03, 2016 FINDINGS: ABDOMEN: Liver: Unremarkable. No mass. Gallbladder and bile ducts: Cholecystectomy No ductal dilation. Pancreas: Unremarkable. No mass. No ductal dilation. Spleen: Unremarkable. No splenomegaly. Adrenals: Unremarkable. No mass. Kidneys and ureters: Unremarkable. No solid mass. No hydronephrosis. Stomach and bowel: Unremarkable. No obstruction. No mucosal thickening. PELVIS: Appendix: No findings to suggest acute appendicitis. Bladder: Unremarkable. No mass. Reproductive: Unremarkable as visualized. ABDOMEN and PELVIS: Intraperitoneal space: Unremarkable. No free air. No significant fluid collection. Bones/joints: No acute fracture. No dislocation. Soft tissues: Unremarkable. Vasculature: Minimal atherosclerosis of the inferior abdominal aorta. No aneurysm. No dissection. Lymph nodes: Unremarkable. No enlarged lymph nodes. A single impression for all exams can be found at the end of this report IMPRESSION: CT Angiography Chest : No pulmonary embolus. No acute findings in the chest. No focal lung consolidation. CT Abdomen and Pelvis: No acute findings in the abdomen or pelvis. Electronically signed by: Juan Mendez MD 01/14/2020 7:06 PM CDT
[2020-01-14 19:14] VITALS: BP 121/82
[2020-01-14] MEDS: INSULIN, REG.(HUMAN) 100 U/ML VIAL SUBCU ONE (19:21)
[2020-01-14] MEDS: MORPHINE SULFATE INJ 10 MG/ML VIAL IV ONE (19:41)
== END 2020-01-14 19:58 | disposition home or self-care (01) ==
LOC: ER 16:33
DX: E11.43 Type 2 diabetes mellitus with diabetic autonomic (poly)neuropathy (principal); K31.84 Gastroparesis; E86.9 Volume depletion, unspecified; E13.65 Other specified diabetes mellitus with hyperglycemia; R11.15 Cyclical vomiting syndrome unrelated to migraine; Z79.4 Long term (current) use of insulin; F17.200 Nicotine dependence, unspecified, uncomplicated; R07.9 Chest pain, unspecified; R53.1 Weakness; Z79.899 Other long term (current) drug therapy
CPT/HCPCS: 36415; 71045; 71275; 74177; 80053; 81001; 83605; 83690; 84484; 85025; 93005; A4216; J1170; J2060; J2270; J2550; J2765; J7030

== ENCOUNTER 2020-01-14 22:54 | Observation (INO) | payer MEDICARE, MEDICAID ==
[2020-01-14] MEDS ORDERED: HYDROmorphone HCL INJ 2 MG/ML VIAL IV ONE (23:21)
[2020-01-14] MEDS ORDERED: SODIUM CHLORIDE 0.9% 1000ML 1,000 ML IVS ONE (23:21)
[2020-01-14] MEDS ORDERED: ONDANSETRON INJ 4 MG/2 ML VIAL IV ONE (23:21)
--- NOTE | 2020-01-14 23:39 | ED.PDOC ---
History of Present Illness - General Chief Complaint: Abdominal Pain Stated Complaint: i have been having nausea and vomiting Time Seen by Provider: 01/14/20 23:18 Additional Information: Patient is a 44-year-old female who represents to the ED today with chief complaint of abdominal pain and vomiting. Patient was seen here earlier today and had a complete work-up including labs, CT chest and CT abdomen and pelvis. Patient indicates she was feeling better when she left the hospital but when she got home her pain resumed as did her vomiting and she felt that she needed to come back. Patient has no new symptoms other than what she presented with earlier today and was worked up with them. Please refer to my history of present illness from this afternoon for further details. Review of Systems - Review of Systems Constitutional: States: no symptoms reported EENTM: States: no symptoms reported Respiratory: States: no symptoms reported. Denies: cough, short of breath Cardiology: Denies: chest pain, palpitations Gastrointestinal/Abdominal: States: see HPI, abdominal pain, diarrhea, nausea, vomiting Genitourinary: States: no symptoms reported Musculoskeletal: States: no symptoms reported Skin: States: no symptoms reported All other Systems: Reviewed and Negative Past Medical History (General) - Patient Medical History Hx Seizures: Yes Hx Stroke: No Hx Dementia: No Hx Asthma: Yes Hx of COPD: No Hx Cardiac Disorders: No Hx Congestive Heart Failure: No Hx Pacemaker: No Hx Hypertension: No Hx Thyroid Disease: No Hx Diabetes: Yes Hx Gastroesophageal Reflux: Yes Hx Renal Disease: No Hx Cancer: No Hx of HIV: No Hx Hepatitis C: No Hx MRSA: No - POS FOR STAFF A AND HAS COMPLETED TREATMENT. MRSA Source:: Wound - Vaccination History Hx Tetanus, Diphtheria Vaccination: No Hx Influenza Vaccination: Yes Hx Pneumococcal Vaccination: Yes - Social History Hx Tobacco Use: Yes Hx Chewing Tobacco Use: No Hx Alcohol Use: Yes Hx Substance Use: Yes Hx Substance Use Treatment: No Hx Depression: Yes Hx Physical Abuse: No Hx Emotional Abuse: No Hx Suspected Abuse: No - Female History Hx Last Menstrual Period: 11/05/11 Patient : Yes Family Medical History - Family History Mother Family History: No Known Name: April Age (years): 70 Living Status: Still Living Hx Family Asthma: No Hx Family Congestive Heart Failure: No Hx Family Hypertension: No Hx Family Stroke: No Hx Cardiac Disease: No Hx Family Diabetes: No Hx Family Cancer: Yes - skin cancer Hx Family;Other: thyroid problems and seizures Father Family History: No Known Name: Marlon Age (years): 68 Living Status: Still Living Hx Family Asthma: - Sister Hx Family Congestive Heart Failure: No Hx Family Hypertension: Yes Hx Family Stroke: No Hx Cardiac Disease: Yes Hx Family Diabetes: No Age of Onset (years of age): 32 Hx Family Cancer: - Grandmother Lymphoma Physical Exam - Physical Exam General Appearance: Alert, Anxious, Obvious distress, Other - Tearful Neck: supple Respiratory: chest non-tender, lungs clear, normal breath sounds, no respiratory distress, no accessory muscle use Cardiovascular/Chest: normal peripheral pulses, no edema, no gallop, no JVD, no murmur, tachycardia Peripheral Pulses: 2+ Gastrointestinal/Abdominal: soft, tenderness - Mild to moderate diffuse Extremity: normal range of motion Neurologic: no motor/sensory deficits, alert, normal mood/affect Skin Exam: normal color, warm/dry Progress - Progress Progress: 01/14/20 23:40 Patient had a full work-up done earlier today and there is no indication for repeat labs or imaging. Will give patient symptomatic medication and IV fluids and will hobs admit for symptomatic management. I have discussed patient's care with hospitalist, Beverly Covarrubias, who accepts patient for observation admission. Departure - Departure Clinical Impression: Gastroparesis diabeticorum Disposition: Admit Patient Condition: Fair Departure Forms: ED Discharge - Pt. Copy, Patient Portal Self Enrollment Home Medications: Ambulatory Orders Mometasone Furoate [Elocon] 0.1 % TOP DAILY PRN 11/07/17 Epinephrine [Epipen 2-Mikael] 0.3 mg IJ ONCE PRN #1 pack 03/26/18 Buspirone HCl 30 mg PO BID 10/23/18 Diazepam 5 mg PO TID 02/21/19 Insulin Detemir [Levemir Pen] 32 units SUBCU DAILY@0700 02/24/19 Albuterol Inhaler [Ventolin Hfa Inhaler] 1 puff INH PRN PRN 02/25/19 Gabapentin 300 mg PO TID 11/11/19 Hydrocodone-Acetaminophen [[place] 7.5-325 mg] 1 tab PO TID 11/11/19 Vilazodone HCl [Viibryd] 40 mg PO DAILY 11/11/19 tiZANidine [Zanaflex] 12 mg PO PRN 11/11/19 Ondansetron Odt [Zofran ODT] 8 mg PO Q8H PRN #12 tab 12/25/19 Albuterol Sulfate [Proair Hfa] 2 puff INH Q6H PRN 01/01/20 Azelastine HCl [Azelastine Hydrochloride] 0.1 % INH PRN PRN 01/01/20 Benztropine Mesylate 1 mg PO DAILY 01/01/20 Esomeprazole Magnesium [Nexium] 40 mg PO DAILY 01/01/20 Glucagon [Baqsimi One Pack] 3 mg NA PRN 01/01/20 Hydroxyzine HCl [Hydroxyzine Hydrochloride] 50 mg PO QID 01/01/20 Insulin Glargine [Lantus Solostar] 10 unit SC BEDTIME 01/01/20 Insulin Glargine [Lantus Solostar] 25 unit SC DAILY 01/01/20 Mometasone Furoate 0.1 % TOP PRN 01/01/20 Naloxone HCl [Narcan] 4 mg NA PRN 01/01/20 Promethazine Tab [Phenergan Tablet] 25 mg PO .Q4H PRN 01/01/20 Salmeterol Xinafoate [Serevent Diskus] 50 mcg IN PRN 01/01/20 Triamcinolone 0.5% Cream [Kenalog 0.5% Cream] 1 applic TOP PRN 01/01/20 Acetaminophen W/ Codeine [Tylenol W/ CODEINE #3] 1 ea PO Q6H PRN #20 01/14/20 Promethazine Tab [Phenergan Tablet] 25 mg PO Q6H PRN #12 tab 01/14/20 Decision To Admit - Decistion To Admit Decision to Admit Date: 01/14/20 Decision to Admit Time: 23:42
--- NOTE | 2020-01-15 00:07 | HP ---
SUPERVISING PHYSICIAN: Hua Carpenter MD CHIEF COMPLAINT: Nausea and vomiting with abdominal pain. HISTORY OF PRESENT ILLNESS: Ms. Perkins is a 44-year-old female patient who is well-known to the ER. She has had multiple presentations in the last year, numbering well over 20, for similar symptoms related to gastroparesis and abdominal pain. She presented to the Emergency Department earlier in the day yesterday and had an extensive workup including labs, CT chest, CT abdomen and pelvis. She indicated she was feeling better and was discharged home. When she got home, she endorses the pain resumed along with her nausea and vomiting and she felt like she needed to be reevaluated. On admission to the ER the second time, the patient had no new symptoms from her presentation earlier and was worked up for. Given that she had just been extensively worked up in the ER, her labs repeated showed normal white count without a left shift. Chemistries showed just a mildly low potassium of 3.3. Liver functions were within normal limits. Magnesium was low at 1.5. Calcium 7.5, corrected to 8.2 for albumin of 3.1. She was given IV fluids. She was stable in regards to her vital signs. Initially, temperature was 97.9, pulse 86, blood pressure 120/83, saturation 97% on room air. She was given Zofran, Haldol, Phenergan and Ativan and then stabilized in regards to her initial symptomatology and is going to be placed in observation given her extensive history of persistent nausea, vomiting related to gastroparesis. She was placed in observation in stable condition. PAST MEDICAL HISTORY: 1. Type 1 diabetes mellitus with multiple hospitalizations due to diabetic ketoacidosis. 2. Gastroparesis on Botox injections by Dr. Paul. 3. Chronic obstructive pulmonary disease. 4. Chronic eczema. 5. Peripheral neuropathy. 6. Chronic low back pain. 7. Chronic abdominal pain followed by Dr. Paul with extensive workups. 8. Anxiety and depression. 9. Fibromyalgia. PAST SURGICAL HISTORY: 1. Botox injections for gastroparesis. 2. Tubal ligation. 3. Hysterectomy. 4. Appendectomy. 5. Cholecystectomy. 6. Bladder stimulator placement. 7. Multiple lumbar and cervical spine surgeries. 8. Bilateral knee scopes. 9. Carpal tunnel release. CURRENT MEDICATIONS: Awaiting an updated list in the computer, please see that list. ALLERGIES: FISH, REGLAN, PEANUTS. FAMILY HISTORY: Reviewed from past charts and noncontributory to current condition. SOCIAL HISTORY: The patient smokes currently half a pack a day. She denies any illicit drugs or alcohol usage. She does have a boyfriend and lives in [place]. REVIEW OF SYSTEMS: CONSTITUTIONAL: Negative for any fevers, chills or unintentional weight loss or gain. She does have some general malaise due to chronic illness. HEENT: Negative for sore throats, earaches, nasal congestion, vision changes. RESPIRATORY: Negative for coughing, hemoptysis, shortness of breath. CARDIOVASCULAR: Negative for chest pain, palpitations, peripheral edema. GASTROINTESTINAL: Positive for nausea and vomiting with abdominal pain. No diarrhea, no constipation. Refer to history of present illness. GENITOURINARY: Negative for dysuria, flank pain. Positive for gross hematuria. MUSCULOSKELETAL: Positive for chronic back pain, cervical spine pain, but no reported joint pain or muscle cramps. SKIN: Negative for lesions, rashes or unexplained changes. She does have chronic eczema. NEUROLOGIC: Negative for syncope, paresthesias, seizures, ataxia or other neurologic deficits. PHYSICAL EXAMINATION: VITAL SIGNS: Temperature 98, pulse 95, blood pressure 115/72, respiratory rate 16, saturation 98% on room air. GENERAL: On exam on the Medical/Surgical Floor, the patient was resting comfortably. She does look tired. HEENT: Tympanic membranes clear bilaterally. Oropharynx is pink, moist without any lesions. NECK: Supple, nontender with full range of motion. No jugular venous distention noted. RESPIRATORY: Lung sounds are clear to auscultation bilaterally without any rhonchi, wheezes or rales. CARDIOVASCULAR: Regular rate and rhythm without any appreciable murmurs, gallops, or rubs. ABDOMEN: Soft with diffuse tenderness. No rebound tenderness, no guarding, no peritoneal signs. EXTREMITIES: There is no cyanosis, clubbing or edema. NEUROLOGIC: Cranial nerves II-XII are grossly intact. The patient is alert and oriented times three. SKIN: Warm, pink and dry. Chronic changes due to eczema. LABORATORY: White count 6,700, hemoglobin 11, hematocrit 33.8, platelet count 240,000. Differential without a left shift. Chemistries show initial potassium 3.3. Otherwise, electrolytes within normal limits. BUN 11, creatinine 0.41. Blood sugar 165. Calcium 7.5, corrected for albumin of 3.1 to 8.2. Magnesium low at 1.5. Liver functions within normal limits. Urinalysis showed 500 of glucose, 40 ketones, large amount of blood, RBCs too numerous to count, bacteria 1+. MICROBIOLOGY: Urine culture pending. RADIOLOGY: Full workup in the ER early last night with CT of the chest and pelvis, abdomen CT. Per radiologic interpretation, no pulmonary embolus, no acute findings in the chest, no lung consolidations. CT of the abdomen revealed no acute findings in the abdomen or pelvis. 12-lead EKG showed normal sinus rhythm with no ST or T-wave changes to indicate acute coronary syndrome or ischemia. ASSESSMENT: 1. Acute on chronic gastroparesis with exacerbation with persistent nausea and vomiting, unable to hold any oral medications. 2. Type 1 diabetes mellitus without any signs of diabetic ketoacidosis currently. 3. Gross hematuria, likely related to underlying urinary tract infection, cultures pending. 4. Mild electrolyte imbalance with hypokalemia and hypomagnesemia. 5. Chronic abdominal pain with a history of extensive workup including multiple CTs with no acute findings on this admission, followed by Dr. Paul. 6. Chronic pain syndrome. 7. Generalized anxiety disorder. 8. Dehydration secondary to intractable nausea and vomiting. 9. Chronic tobacco abuse. PLAN: The patient is going to be placed in observation to help control her nausea and vomiting and pain as she is not able to tolerate any oral medications at this point. She does look a little dry. We will go ahead and give her a couple of liters of normal saline followed by maintenance IV fluids. We will keep her on clear liquids as long as she is able to tolerate. We will resume her home medications once they have been updated and verified. Given that she does appear to have a urinary tract infection, we will start her on Rocephin and await culture results. Hopefully, she will be able to discharge within the next 24 hours, however, given her history and history of being a brittle diabetic, we will reassess in the morning. She may need to be transferred if she shows any clinical decline as she needs to be followed by her assistant operator. Until the patient can transition to outpatient management, we will continue to monitor and treat as needed. #[id number] [facility]
[2020-01-15] MEDS ORDERED: ACETAMINOPHEN SUPPOSITORY 650 MG PR PRN (00:12)
[2020-01-15] MEDS ORDERED: HALOPERIDOL LACTATE INJ 5 MG/ML VIAL IM PRN (00:18)
[2020-01-15] MEDS ORDERED: GLUCAGON INJ 1 MG VIAL SUBCU PRN (00:22)
[2020-01-15] MEDS ORDERED: DEXTROSE 50% 25 GM/50 ML SYG IV PRN (00:22)
[2020-01-15] MEDS ORDERED: GABAPENTIN 300 MG CAP PO ONE (00:23)
[2020-01-15] MEDS ORDERED: ALBUTEROL SULFATE 2.5 MG/3 ML VIAL NEB PRN (00:23)
[2020-01-15] MEDS ORDERED: SALMETEROL XINAFOATE 50 MCG IN SCH (00:30)
[2020-01-15] MEDS ORDERED: tiZANidine 4 MG TAB PO SCH (00:30)
[2020-01-15] MEDS: SODIUM CHLORIDE 0.9% (FLUSH) 10 ML SYG IV SCH ×3 (00:46→20:37)
[2020-01-15] MEDS: DEX 5% W/NACL 0.45% 1000ML 1,000 ML IVS PRN ×2 (00:47→11:52)
[2020-01-15] MEDS: IV SET AND CAP CHANGE INJ INJ SCH (00:51)
[2020-01-15] MEDS: INSULIN LISPRO 100 UNITS/ML PEN SUBCU SCH ×4 (01:08→18:00)
[2020-01-15] MEDS: ONDANSETRON INJ 4 MG/2 ML VIAL IV PRN ×3 (05:22→21:59)
[2020-01-15] MEDS: ACETAMINOPHEN W/COD #3 TAB 1 EA TAB PO PRN (05:22)
[2020-01-15] MEDS: PANTOPRAZOLE SODIUM IV 40 MG VIAL IV SCH (05:23)
[2020-01-15] MEDS: SODIUM CHLORIDE 0.9% (FLUSH) 10 ML SYG IV PRN ×2 (05:24→21:59)
[2020-01-15] MEDS: busPIRone HCL 5 MG TAB PO SCH ×2 (11:50→20:33)
[2020-01-15] MEDS: GABAPENTIN 300 MG CAP PO SCH ×3 (11:50→20:33)
[2020-01-15] MEDS: diazePAM 5 MG TAB PO SCH ×3 (11:51→20:33)
[2020-01-15] MEDS: hydrOXYzine HCl 25 MG TAB PO SCH ×4 (11:51→20:33)
[2020-01-15] MEDS: VILAZODONE HCL 40 MG PO SCH (11:51)
[2020-01-15] MEDS: BENZTROPINE MESYLATE TAB 1 MG TAB PO SCH (11:56)
[2020-01-15] MEDS ORDERED: TRIAMCINOLONE 0.5% CREAM 15 GM TUBE TOP SCH (12:30)
[2020-01-15] MEDS ORDERED: PROMETHAZINE HCL INJ 25 MG in SODIUM CHLORIDE 0.9% 50ML 50 ML IVPB ONE (12:55)
[2020-01-15] MEDS ORDERED: HYDROmorphone HCL INJ 2 MG/ML VIAL IV ONE (13:00)
[2020-01-15] MEDS ORDERED: SODIUM CHLORIDE 0.9% 1000ML 1,000 ML IVS ONE ×2 (13:02→13:03)
[2020-01-15] MEDS ORDERED: MAGNESIUM SULFATE PREMIX 2GM 2 GM in PREMIX BAG 1 BAG IVPB ONE (13:04)
[2020-01-15] MEDS ORDERED: SODIUM CHLORIDE 0.9% 50ML 50 ML ONE (13:09)
[2020-01-15] MEDS ORDERED: PROMETHAZINE HCL INJ 25 MG/ML VIAL ONE (13:09)
[2020-01-15] MEDS: INSULIN DETEMIR 100 UNITS/ML PEN SUBCU SCH ×2 (13:13→20:36)
[2020-01-15] MEDS: HYDROcodone 7.5MG/APAP 325MG 1 EA TAB PO SCH ×2 (15:24→20:34)
[2020-01-15] MEDS ORDERED: hydrOXYzine HCl 25 MG TAB ONE (17:59)
[2020-01-15] MEDS ORDERED: cefTRIAXone SODIUM 1 GM VIAL ONE (17:59)
[2020-01-15] MEDS ORDERED: SODIUM CHL 0.9% 50ML MIN-BAG+ 50 ML IVPB ONE (18:00)
[2020-01-15] MEDS: HYDROmorphone HCL INJ 2 MG/ML VIAL IV PRN ×2 (18:01→21:58)
[2020-01-15] MEDS: cefTRIAXone SODIUM 1 GM in SODIUM CHL 0.9% 50ML MIN-BAG+ 50 ML IVPB SCH (18:02)
[2020-01-15] MEDS: KCL 40MEQ/NS 1,000 ML IVS PRN (18:03)
[2020-01-15] MEDS ORDERED: KCL 40MEQ/NS 1,000 ML IVS ONE (23:12)
[2020-01-16] MEDS: INSULIN LISPRO 100 UNITS/ML PEN SUBCU SCH ×6 (00:57→21:05)
[2020-01-16] MEDS: KCL 40MEQ/NS 1,000 ML IVS PRN (01:26)
[2020-01-16] MEDS: HYDROmorphone HCL INJ 2 MG/ML VIAL IV PRN ×6 (02:06→22:39)
[2020-01-16] MEDS: ONDANSETRON INJ 4 MG/2 ML VIAL IV PRN ×2 (02:07→06:09)
[2020-01-16] MEDS ORDERED: ONDANSETRON INJ 4 MG/2 ML VIAL ONE (05:01)
[2020-01-16] MEDS: PANTOPRAZOLE SODIUM IV 40 MG VIAL IV SCH (06:10)
[2020-01-16] MEDS: INSULIN DETEMIR 100 UNITS/ML PEN SUBCU SCH ×2 (07:50→21:12)
[2020-01-16] MEDS: HYDROcodone 7.5MG/APAP 325MG 1 EA TAB PO SCH ×3 (08:11→21:09)
[2020-01-16] MEDS: VILAZODONE HCL 40 MG PO SCH ×2 (08:12→08:15)
[2020-01-16] MEDS: busPIRone HCL 5 MG TAB PO SCH ×2 (08:12→21:10)
[2020-01-16] MEDS: hydrOXYzine HCl 25 MG TAB PO SCH ×4 (08:12→21:10)
[2020-01-16] MEDS: BENZTROPINE MESYLATE TAB 1 MG TAB PO SCH (08:12)
[2020-01-16] MEDS: GABAPENTIN 300 MG CAP PO SCH ×3 (08:13→21:10)
[2020-01-16] MEDS: diazePAM 5 MG TAB PO SCH ×4 (08:13→21:10)
[2020-01-16] MEDS: SODIUM CHLORIDE 0.9% (FLUSH) 10 ML SYG IV SCH ×2 (08:13→21:11)
[2020-01-16] MEDS: PROMETHAZINE HCL INJ 25 MG in SODIUM CHLORIDE 0.9% 50ML 50 ML IVPB PRN ×2 (10:32→19:46)
[2020-01-16] MEDS: NICOTINE PATCH 14 MG TD SCH (10:32)
[2020-01-16] MEDS: DEX 5% W/NACL 0.45% 1000ML 1,000 ML IVS PRN ×2 (10:39→19:47)
[2020-01-16] MEDS ORDERED: diazePAM INJ 10 MG/2 ML SYG IM ONE (10:47)
[2020-01-16] MEDS ORDERED: diazePAM INJ 10 MG/2 ML SYG ONE (11:02)
--- NOTE | 2020-01-16 11:37 | CT ---
CT abdomen and pelvis with IV contrast Compared to CT abdomen pelvis dated 01/14/2020. HISTORY: Abdominal pain, hematuria. This exam was performed according to our departmental dose-optimization program which includes automated exposure control, adjustment of the mA and/or kVp according to patient size and/or use of iterative reconstruction technique where applicable. FINDINGS: Visualized lung bases are within normal limits. Liver, spleen, pancreas, adrenal glands and kidneys are within normal limits. No hydronephrosis or biliary dilatation. Status post cholecystectomy. No dilated loops of bowel to suggest obstruction. Mild amount of stool in the colon. Abdominal aorta is mildly calcified without aneurysm. Bladder is unremarkable. Small amount of free fluid layering in the pelvis. No free air. Postoperative changes in the base of the cecum consistent with appendectomy. IMPRESSION: No acute disease. Electronically signed by: Leonardo Hanley MD 01/16/2020 11:36 AM CDT
--- NOTE | 2020-01-16 15:58 | PN ---
SUPERVISING PHYSICIAN: Freddy Carpenter MD DATE: 01/16/20 SUBJECTIVE: The patient is still having some abdominal pain and some gross hematuria but seems to be improving slightly, However, she is not able to hold any oral medication or nutrition but her blood sugars are staying stable on sliding scale but I did discuss with her that until she can take oral nutrition, with her being type 1 diabetic, we cannot in good nigel let her go home. She is still complaining that she has some gross hematuria but it has improved a little bit since she has been on antibiotics. OBJECTIVE: VITAL SIGNS: Afebrile with temperature of 97.8, pulse 80, blood pressure 109/72, respirations are 16, oxygen saturation 91 to 96% on room air. GENERAL: Patient is resting comfortably but does appear to be uncomfortable at times in regard to abdominal pain. She is alert. CHEST: Lung sounds clear to auscultation bilaterally. HEART: Regular rate and rhythm. ABDOMEN: Soft with tenderness noted down in the suprapubic region, no rebound tenderness, no peritoneal signs. NEUROLOGIC: She is alert and oriented x3. LABORATORY: Normal electrolytes with BUN less than 5, creatinine 0.4. Blood sugars range between 76 and 101. Magnesium is up to 1.9. Urine yesterday did show too numerous to count RBCs, 1+ bacteria. MICROBIOLOGY: Urine culture pending. RADIOLOGY: I ordered a pelvic CT with contrast and per radiology interpretation there is no acute disease. ASSESSMENT: 1. Acute on chronic gastroparesis with exacerbation with persistent nausea and vomiting, still not able to hold significant oral medications or nutrition. 2. Type 1 diabetes mellitus without any signs of diabetic ketoacidosis currently. 3. Gross hematuria, likely related to underlying urinary tract infection, cultures pending. 4. Mild electrolyte imbalance with hypokalemia and hypomagnesemia. 5. Chronic abdominal pain with a history of extensive workup including multiple CTs with no acute findings on this admission, followed by Dr. Paul. 6. Chronic pain syndrome. 7. Generalized anxiety disorder. 8. Dehydration secondary to intractable nausea and vomiting. 9. Chronic tobacco abuse. PLAN: We will continue with observation. I was hoping to send her home today but she still says she cannot eat due to the nausea. We will go ahead and provide her with continued pain management as needed and Valium for anxiety levels. We will also put her on a nicotine patch to help her with anxiety related to stopping smoking. Resume her home medications as appropriate to care. I anticipate hopefully to be able to discharge tomorrow. Will await culture results to further target antibiotics, urine cultures, as appropriate to care. Until we can transition her back to outpatient management, we will continue to monitor and treat as needed. #[id number] [facility]
[2020-01-16] MEDS ORDERED: tiZANidine 4 MG TAB PO PRN (17:00)
[2020-01-16] MEDS: cefTRIAXone SODIUM 1 GM in SODIUM CHL 0.9% 50ML MIN-BAG+ 50 ML IVPB SCH (17:29)
[2020-01-17] MEDS: PANTOPRAZOLE SODIUM IV 40 MG VIAL IV SCH (05:43)
[2020-01-17] MEDS: HYDROmorphone HCL INJ 2 MG/ML VIAL IV PRN ×4 (05:44→19:58)
[2020-01-17] MEDS: PROMETHAZINE HCL INJ 25 MG in SODIUM CHLORIDE 0.9% 50ML 50 ML IVPB PRN ×3 (06:47→19:58)
[2020-01-17] MEDS: VILAZODONE HCL 40 MG PO SCH (07:40)
[2020-01-17] MEDS: INSULIN DETEMIR 100 UNITS/ML PEN SUBCU SCH ×2 (07:40→21:42)
[2020-01-17] MEDS: INSULIN LISPRO 100 UNITS/ML PEN SUBCU SCH ×4 (07:41→21:07)
[2020-01-17] MEDS: BENZTROPINE MESYLATE TAB 1 MG TAB PO SCH (09:00)
[2020-01-17] MEDS: busPIRone HCL 5 MG TAB PO SCH ×2 (09:00→21:05)
[2020-01-17] MEDS: NICOTINE PATCH 14 MG TD SCH (09:00)
[2020-01-17] MEDS: GABAPENTIN 300 MG CAP PO SCH ×3 (09:00→21:05)
[2020-01-17] MEDS: HYDROcodone 7.5MG/APAP 325MG 1 EA TAB PO SCH ×3 (09:01→21:05)
[2020-01-17] MEDS: hydrOXYzine HCl 25 MG TAB PO SCH ×4 (09:52→21:05)
[2020-01-17] MEDS: DEX 5% W/NACL 0.45% 1000ML 1,000 ML IVS PRN ×2 (09:58→23:58)
[2020-01-17] MEDS: SODIUM CHLORIDE 0.9% (FLUSH) 10 ML SYG IV SCH ×2 (11:12→21:07)
[2020-01-17] MEDS: ENOXAPARIN SODIUM 40 MG/0.4 ML SYG SUBCU SCH (11:27)
[2020-01-17] MEDS: PHENAZOPYRIDINE HCL 200 MG TAB PO SCH ×3 (11:27→21:06)
[2020-01-17] MEDS: ONDANSETRON INJ 4 MG/2 ML VIAL IV PRN (12:08)
[2020-01-17] MEDS ORDERED: chlordiazePOXIDE HCL 25 MG CAP PO ONE (12:18)
[2020-01-17] MEDS ORDERED: chlordiazePOXIDE HCL 25 MG CAP ONE (12:32)
--- NOTE | 2020-01-17 15:56 | PN ---
SUPERVISING PHYSICIAN: Freddy Carpenter MD DATE: 01/17/20 SUBJECTIVE: The patient is still having abdominal cramps and some hematuria apparently. I was hoping we could discharge today if she tolerated her diet. We did try a full liquid which she was not able to tolerate and requested to go back to clear liquid. She is still having some severe anxiety attacks but denied chest pain. OBJECTIVE: VITAL SIGNS: She remains afebrile with temperature of 97.8, pulse 78, blood pressure 117/66, respirations are 18, oxygen saturation 98% on room air. GENERAL: Patient appears frail and ill. She does look a little anxious. CHEST: Lung sounds clear to auscultation. HEART: Regular rate and rhythm. ABDOMEN: Soft with tenderness over the suprapubic region, no rebound tenderness, no peritoneal signs. NEUROLOGIC: She is alert and oriented x3. LABORATORY: Blood sugars range between 58 and 106. Magnesium has normalized after replacement yesterday. MICROBIOLOGY: Urine culture pending. RADIOLOGY: CT of abdomen/pelvis yesterday with contrast, she has had multiple CTs, and per radiology interpretation there was no acute disease noted. ASSESSMENT: 1. Acute on chronic gastroparesis with exacerbation with persistent nausea and vomiting, still not able to hold significant oral medications or nutrition. 2. Type 1 diabetes mellitus without any signs of diabetic ketoacidosis currently. 3. Gross hematuria, likely related to underlying urinary tract infection, cultures pending. 4. Mild electrolyte imbalance with hypokalemia and hypomagnesemia. 5. Chronic abdominal pain with a history of extensive workup including multiple CTs with no acute findings on this admission, followed by Dr. Paul. 6. Chronic pain syndrome. 7. Generalized anxiety disorder. 8. Dehydration secondary to intractable nausea and vomiting. 9. Chronic tobacco abuse. PLAN: The patient is still having severe anxiety, abdominal pains and nausea. She is refusing to really eat anything other than just jello, hoping to advance her diet and could tolerate it and go home today. Will continue to encourage oral intake. I started her on some Pyridium to see if this might help with some of the bladder spasms. She has also had her Ativan increased p.r.n. as well as the Dilaudid and will try some Librium for her anxiety. She continues the nicotine patch. She is on DVT prophylaxis per protocol. She has been complaining of some finger pain on the left hand, no lesions, her fingers are bruised and swollen but I did not actually could not tell they were any different than they were yesterday but she has concerns of developing DVT and again. I have reassured her that at this point it does not look that way but if we need to, we can image it tomorrow. I would guess that if she cannot tolerate at diet tomorrow, the best thing to do would be to contact Dr. Paul again to see if he has any suggestions or take the patient in transfer. I am not sure that getting a consultation from Dr. Mercedes would accomplish anything because he has already had the majority of her organs that Dr. Mercedes could do anything with, taken out, and she has had so many scopes that she needs to be followed up with her GI doctor. She does tell me she has new appointments with multiple specialists later this week, that is why I hope we can get her out of here tomorrow, but again, if she is refusing to eat. Given that she is a type diabetic, I cannot send her home not tolerating an oral diet, although I think some of it is related to anxiety and continued need for pain control. Until we can either transition her home or get her transferred, we will continue to monitor and treat as needed #[id number] [facility]
[2020-01-17] MEDS: cefTRIAXone SODIUM 1 GM in SODIUM CHL 0.9% 50ML MIN-BAG+ 50 ML IVPB SCH (17:23)
[2020-01-17] MEDS: IV SET AND CAP CHANGE INJ INJ SCH (23:58)
[2020-01-18] MEDS: HYDROmorphone HCL INJ 2 MG/ML VIAL IV PRN ×5 (00:05→19:34)
[2020-01-18] MEDS ORDERED: INSULIN DETEMIR 100 UNITS/ML PEN SUBCU ONE (00:14)
[2020-01-18] MEDS ORDERED: SODIUM CHLORIDE 0.9% 1000ML 1,000 ML IVS ONE (00:14)
[2020-01-18] MEDS: PROMETHAZINE HCL INJ 25 MG in SODIUM CHLORIDE 0.9% 50ML 50 ML IVPB PRN ×2 (02:13→09:26)
[2020-01-18] MEDS: PANTOPRAZOLE SODIUM IV 40 MG VIAL IV SCH (05:42)
[2020-01-18] MEDS: INSULIN LISPRO 100 UNITS/ML PEN SUBCU SCH ×5 (08:30→22:15)
[2020-01-18] MEDS: INSULIN DETEMIR 100 UNITS/ML PEN SUBCU SCH ×2 (08:33→22:17)
[2020-01-18] MEDS: VILAZODONE HCL 40 MG PO SCH (08:55)
[2020-01-18] MEDS: GABAPENTIN 300 MG CAP PO SCH ×3 (08:56→22:15)
[2020-01-18] MEDS: BENZTROPINE MESYLATE TAB 1 MG TAB PO SCH (08:56)
[2020-01-18] MEDS: hydrOXYzine HCl 25 MG TAB PO SCH ×4 (08:56→22:14)
[2020-01-18] MEDS: HYDROcodone 7.5MG/APAP 325MG 1 EA TAB PO SCH ×3 (08:57→22:14)
[2020-01-18] MEDS: ENOXAPARIN SODIUM 40 MG/0.4 ML SYG SUBCU SCH (08:59)
[2020-01-18] MEDS: busPIRone HCL 5 MG TAB PO SCH ×2 (08:59→22:14)
[2020-01-18] MEDS: NICOTINE PATCH 14 MG TD SCH (08:59)
[2020-01-18] MEDS: SODIUM CHLORIDE 0.9% (FLUSH) 10 ML SYG IV SCH ×2 (09:00→22:18)
[2020-01-18] MEDS: PHENAZOPYRIDINE HCL 200 MG TAB PO SCH ×3 (09:34→22:14)
[2020-01-18] MEDS: DEX 5% W/NACL 0.45% 1000ML 1,000 ML IVS PRN (12:43)
[2020-01-18] MEDS ORDERED: HYDROmorphone HCL INJ 2 MG/ML VIAL ONE (13:23)
[2020-01-18] MEDS: PROMETHAZINE HCL 25 MG TAB PO SCH ×3 (13:31→23:42)
[2020-01-18] MEDS: diazePAM 5 MG TAB PO PRN ×2 (15:20→22:14)
[2020-01-18] MEDS: cefTRIAXone SODIUM 1 GM in SODIUM CHL 0.9% 50ML MIN-BAG+ 50 ML IVPB SCH (16:30)
[2020-01-18] MEDS: ACETAMINOPHEN W/COD #3 TAB 1 EA TAB PO PRN (18:36)
--- NOTE | 2020-01-18 20:56 | PN ---
SUPERVISING PHYSICIAN: Aristides Alvarado MD DATE: 01/18/20 SUBJECTIVE: The patient still complains of pain. I had an extensive discussion with her regarding pain medication, specifically narcotics and how they can actually worsen gastroparesis. She verbalized understanding, but still wants the pain medication. I instructed her that we would be changing those medications up and she became upset. She has been afebrile. Vital signs have been normal. She did have a dip in her blood sugar, but it rebounded with treatment. OBJECTIVE: VITAL SIGNS: Blood pressure 107/68, heart rate 78, respiratory rate 18, temperature 97.8, oxygen saturation 98%. GENERAL: Ms. Perkins is a 44-year-old female who is tearful, but in no severe distress currently. NEUROLOGIC: The patient is alert. LUNGS: Clear. CARDIOVASCULAR: Regular rate and rhythm. Normal S1, S2. ABDOMEN: Soft. Subjectively tenderness to palpation, but no rebound. EXTREMITIES: Lower extremities with no edema. ASSESSMENT: 1. Acute on chronic gastroparesis. 2. Intractable nausea and vomiting secondary to #1. 3. Type 1 diabetes mellitus. 4. Electrolyte imbalance. 5. Chronic pain syndrome. 6. Generalized anxiety disorder. 7. Dehydration secondary to intractable nausea and vomiting. 8. Continuous nicotine dependency. PLAN: I discussed her case with Dr. Paul, her GI doctor in [place]. His recommendations were to cut the narcotics in half and discontinue them tomorrow. Also he stated he would put her on scheduled antiemetics. I discussed that with the patient and updated her on the care plan regarding that. She seemed a little bit receptive to that, but wanted me to call the GI doctor that she had in the [facility] that she made an appointment with. I attempted on several occasions to do this. I finally did get a hold of the patient's doctor that she was going to have an appointment with on 01/28/20. That doctor's name is Dr. Giordano. The doctor herself did not return my call, but the nurse did. I updated the nurse on the patient's complaints and current issues and she stated that it sounded as though the patient needed a general GI doctor and not a specialist. She states she would relay the message to the doctor and she may or may not call me. I still have not received any phone call. Given the fact that the patient has a negative CT scan, labs are unremarkable, vital signs are stable, most of her issues are subjective. Additionally, I was told by the nurses that she was squeezing her finger into the toilet after she had urinated. She had done this after using a lancet in an attempt to make it look as though she had blood in her urine. I did not witness this myself, but this was reported to me. I will reevaluate her in the morning. I am not going to increase her pain medication and, in fact, I am taking Dilaudid away tomorrow. We will give her the option to do a halfway referral versus discharging home. She will need a followup with a specialist as an outpatient. #[id number] [facility]
[2020-01-19] MEDS: DEX 5% W/NACL 0.45% 1000ML 1,000 ML IVS PRN (00:54)
[2020-01-19] MEDS: HYDROmorphone HCL INJ 2 MG/ML VIAL IV PRN ×3 (01:59→14:06)
[2020-01-19] MEDS: PANTOPRAZOLE SODIUM IV 40 MG VIAL IV SCH (06:32)
[2020-01-19] MEDS: PROMETHAZINE HCL 25 MG TAB PO SCH ×2 (06:32→12:21)
[2020-01-19] MEDS: INSULIN LISPRO 100 UNITS/ML PEN SUBCU SCH ×2 (07:00→11:49)
[2020-01-19 07:07] VITALS: O2SAT 98
[2020-01-19] MEDS: VILAZODONE HCL 40 MG PO SCH (08:29)
[2020-01-19] MEDS: busPIRone HCL 5 MG TAB PO SCH (08:54)
[2020-01-19] MEDS: GABAPENTIN 300 MG CAP PO SCH ×2 (08:55→15:15)
[2020-01-19] MEDS: hydrOXYzine HCl 25 MG TAB PO SCH ×2 (08:55→12:21)
[2020-01-19] MEDS: BENZTROPINE MESYLATE TAB 1 MG TAB PO SCH (08:55)
[2020-01-19] MEDS: SODIUM CHLORIDE 0.9% (FLUSH) 10 ML SYG IV SCH (08:56)
[2020-01-19] MEDS: ENOXAPARIN SODIUM 40 MG/0.4 ML SYG SUBCU SCH (08:56)
[2020-01-19] MEDS: NICOTINE PATCH 14 MG TD SCH (08:56)
[2020-01-19] MEDS: HYDROcodone 7.5MG/APAP 325MG 1 EA TAB PO SCH ×2 (08:59→15:15)
[2020-01-19] MEDS: diazePAM 5 MG TAB PO PRN ×2 (09:08→15:15)
[2020-01-19] MEDS: INSULIN DETEMIR 100 UNITS/ML PEN SUBCU SCH (09:17)
[2020-01-19] MEDS: PHENAZOPYRIDINE HCL 200 MG TAB PO SCH (09:59)
[2020-01-19 10:29] VITALS: TEMP 97.8
[2020-01-19] MEDS: ACETAMINOPHEN W/COD #3 TAB 1 EA TAB PO PRN (12:28)
[2020-01-19 14:09] VITALS: BP 119/84
--- NOTE | 2020-01-19 17:33 | DS ---
SUPERVISING PHYSICIAN: Aristides Alvarado MD ADMISSION DIAGNOSIS: 1. Acute on chronic gastroparesis. 2. Intractable nausea and vomiting. 3. Type 1 diabetes mellitus. 4. Gross hematuria. 5. Electrolyte imbalance. 6. Chronic abdominal pain. 7. Chronic pain syndrome. 8. Generalized anxiety disorder. 9. Dehydration secondary to intractable nausea and vomiting. 10. Chronic tobacco use. DISCHARGE DIAGNOSIS: 1. Acute on chronic gastroparesis. 2. Intractable nausea and vomiting secondary to #1. 3. Type 1 diabetes mellitus. 4. Electrolyte imbalance. 6. Chronic pain syndrome. 7. Generalized anxiety disorder. 8. Dehydration secondary to intractable nausea and vomiting. 9. Continuous nicotine abuse. HOSPITAL COURSE: Ms. Perkins is a 44-year-old patient who is well-known to the hospital. She has chronic gastroparesis. She presented to the Emergency Room with intractable nausea and vomiting. She had been to the ER several times that week and had CT scans, which were negative. In the ER, her labs were unremarkable as well although she was referred for admission. She was placed in the hospital and due to her intractable nausea and vomiting, she was placed on her chronic pain medicines through her IV. She was placed on clear liquids. Over about a four-day time period, she did not eat a whole lot. Additionally on admission, she was noted to have some hematuria. However, during this admission, she was found by one of the nurses squeezing blood from her finger into the urinal hat. She had used a lancet on this finger and squeezed the blood into the hat while she urinated to portray hematuria. Due to her complaints, I did contact her GI doctor, Dr. Paul. His recommendation was to place her on scheduled antiemetics as well as discontinuing narcotics. I discussed this with the patient and she was upset with discontinuation of the IV pain medicines. She stated she had a GI doctor in the [place] area she was supposed to have an appointment with. She made a phone call and actually got me the name of that doctor. I did make a phone call to that physician. I did not ever get to speak with the physician, only the office nurse calling back and stated that if it was not urgent and was a chronic issue, she would see her on her appointment. I gave the patient the option of being discharged home versus a [facility] referral. She declined the [facility] referral. On the day of discharge, she is not as tearful and in agreement with the discharge. Therefore, she will be discharged today in stable condition. Her diet will be advanced as tolerated. Recommendations were to cut back considerably versus discontinuing chronic opiate therapy due to the fact that it likely exacerbates her gastroparesis. She did not seem receptive to that. She did state she would go see her new GI doctor at her appointment on January 27. She will followup with her primary care provider, Zander Comer, in one to two weeks. #[id number] [facility]
== END 2020-01-19 15:16 | disposition home or self-care (01) ==
LOC: ER 22:54 → MS 01-15 00:05
PROVIDERS: ADMIT Nurse Practitioner Family; ATTEND Nurse Practitioner
DX: E10.43 Type 1 diabetes mellitus with diabetic autonomic (poly)neuropathy (principal); K31.84 Gastroparesis; E10.65 Type 1 diabetes mellitus with hyperglycemia; E86.0 Dehydration; N39.0 Urinary tract infection, site not specified; R31.0 Gross hematuria; E87.6 Hypokalemia; E83.42 Hypomagnesemia; E87.8 Other disorders of electrolyte and fluid balance, not elsewhere classified; G89.4 Chronic pain syndrome; R10.84 Generalized abdominal pain; F41.1 Generalized anxiety disorder; F17.210 Nicotine dependence, cigarettes, uncomplicated; J44.9 Chronic obstructive pulmonary disease, unspecified; F32.9 Major depressive disorder, single episode, unspecified; M79.7 Fibromyalgia; K21.9 Gastro-esophageal reflux disease without esophagitis; Z79.4 Long term (current) use of insulin; Z79.899 Other long term (current) drug therapy; Z90.49 Acquired absence of other specified parts of digestive tract; Z90.710 Acquired absence of both cervix and uterus; Z86.14 Personal history of Methicillin resistant Staphylococcus aureus infection; Z88.8 Allergy status to other drugs, medicaments and biological substances; Z91.010 Allergy to peanuts; Z91.013 Allergy to seafood
CPT/HCPCS: 96361 ×6; 96366 ×4; 96367 ×2; 96365; 96375; 96376 ×5; 96372 ×5; J0696 ×4; J3360; J1630; J1170 ×22; J2060 ×9; J2405 ×7; Q0169 ×5; J2550 ×8; J7030 ×4; A4216 ×13; J1650 ×3; J3475; J1815 ×2; J7050 ×4; J7799 ×8; J3480 ×2; 80048; 80053; 82948 ×31; 36415 ×3; 81001; 85025; 82947 ×3; 83735 ×2; 36416 ×17; 74177; 94760 ×7; 99285; G0378

== ENCOUNTER 2020-01-22 11:08 | Emergency (ER) | payer MEDICARE, MEDICAID ==
[2020-01-22] MEDS ORDERED: SODIUM CHLORIDE 0.9% (FLUSH) 10 ML SYG IV PRN (11:15)
[2020-01-22] MEDS ORDERED: ONDANSETRON INJ 4 MG/2 ML VIAL IV ONE (11:16)
[2020-01-22] MEDS ORDERED: SODIUM CHLORIDE 0.9% 1000ML 1,000 ML IVS ONE ×2 (11:16→12:30)
--- NOTE | 2020-01-22 11:20 | ED.PDOC ---
History of Present Illness - General Time Seen by Provider: 01/22/20 11:11 Source: patient - History of Present Illness Initial Comments: 44 yo female well-known to this ED with PMH of DM1, gastroparesis, chronic pain, drug-seeking behavior who presents with cc of nausea and vomiting. Pt was recently discharged on 01/18 after 5-day stay for intractable nausea and vomiting due to gastroparesis. Patient reports that her symptoms never fully resolved fr om the hospital discharge and she has continued to have nausea and intermittent vomiting since then. Reports that symptoms further worsened since last night and that she has been up all night with nausea and vomiting of light-colored fluids as well as dry heaving repeatedly. Reports also that she has been having constant abdominal pain for several days, largely unchanged, reports is constant sharp/stabbing 9/10 severity located all over the abdomen but worse in the LLQ, LUQ, and left flank regions. States that she has taken her home pain med of hydrocodone 7.5 as well as Phenergan 25 mg p.o. approximately 3 hours ago with little relief. She also took a Zofran 8 mg tablet about 1.5 hours ago with little relief. Reports also intermittent pains to the left chest which seem to worsen with vomiting and mild dyspnea due to the vomiting. Denies any fevers, chills, cough, sore throat, dysuria, hematuria. She does report dry skin for the past few days and some cracking of the skin on her face, chest, and legs. Reports she has had very poor appetite for the past 2 weeks and has eaten very little food over that period of time. Her parts inspector is Dr. Paul in [place] and she is scheduled to see a digestive specialist in [place] on 01/27. Allergies/Adverse Reactions: Allergies Fish Allergy Allergy (Verified 01/14/20 17:07) Metoclopramide [From Reglan] Adverse Reaction (Verified 01/14/20 17:42) peanut Allergy (Severe, Uncoded 11/30/19 19:02) Home Medications: Ambulatory Orders Mometasone Furoate [Elocon] 0.1 % TOP DAILY PRN 11/07/17 Epinephrine [Epipen 2-Mikael] 0.3 mg IJ ONCE PRN #1 pack 03/26/18 Buspirone HCl 30 mg PO BID 10/23/18 Diazepam 5 mg PO TID 02/21/19 Albuterol Inhaler [Ventolin Hfa Inhaler] 1 puff INH PRN PRN 02/25/19 Gabapentin 300 mg PO TID 11/11/19 Hydrocodone-Acetaminophen [Jarales 7.5-325 mg] 1 tab PO TID 11/11/19 Vilazodone HCl [Viibryd] 40 mg PO DAILY 11/11/19 tiZANidine [Zanaflex] 12 mg PO Q8H PRN 11/11/19 Ondansetron Odt [Zofran Odt] 8 mg PO Q8H PRN #12 tab 12/25/19 Albuterol Sulfate [Proair Hfa] 2 puff INH Q6H PRN 01/01/20 Azelastine HCl [Azelastine Hydrochloride] 0.1 % INH PRN PRN 01/01/20 Benztropine Mesylate 1 mg PO DAILY 01/01/20 Esomeprazole Magnesium [Nexium] 40 mg PO DAILY 01/01/20 Glucagon [Baqsimi One Pack] 3 mg NA PRN 01/01/20 Hydroxyzine HCl [Hydroxyzine Hydrochloride] 50 mg PO QID 01/01/20 Insulin Glargine [Lantus Solostar] 10 unit SC BEDTIME 01/01/20 Insulin Glargine [Lantus Solostar] 25 unit SC DAILY 01/01/20 Mometasone Furoate 0.1 % TOP PRN 01/01/20 Naloxone HCl [Narcan] 4 mg NA PRN 01/01/20 Promethazine Tab [Phenergan Tablet] 25 mg PO .Q4H PRN 01/01/20 Salmeterol Xinafoate [Serevent Diskus] 50 mcg IN PRN 01/01/20 Triamcinolone 0.5% Cream [Kenalog 0.5% Cream] 1 applic TOP PRN 01/01/20 Acetaminophen W/ Codeine [Tylenol W/ CODEINE #3] 1 ea PO Q6H PRN #20 01/14/20 Review of Systems - Review of Systems Review of Systems: 01/22/20 12:24 as per HPI All other Systems: Reviewed and Negative Past Medical History (General) - Patient Medical History Hx Seizures: Yes Hx Stroke: No Hx Dementia: No Hx Asthma: Yes Hx of COPD: No Hx Cardiac Disorders: No Hx Congestive Heart Failure: No Hx Pacemaker: No Hx Hypertension: Yes Hx Thyroid Disease: No Hx Diabetes: Yes Hx Gastroesophageal Reflux: Yes Hx Renal Disease: No Hx Cancer: No Hx of HIV: No Hx Hepatitis C: No Hx MRSA: Yes MRSA Source:: Blood - Vaccination History Hx Tetanus, Diphtheria Vaccination: No Hx Influenza Vaccination: Yes Hx Pneumococcal Vaccination: Yes - Social History Hx Tobacco Use: Yes Hx Chewing Tobacco Use: No Hx Alcohol Use: No Hx Substance Use: No Hx Substance Use Treatment: No Hx Depression: Yes Hx Physical Abuse: No Hx Emotional Abuse: No Hx Suspected Abuse: No - Female History Hx Last Menstrual Period: 11/05/11 Patient : Yes Family Medical History - Family History Mother Family History: No Known Name: April Age (years): 70 Living Status: Still Living Hx Family Asthma: No Hx Family Congestive Heart Failure: No Hx Family Hypertension: No Hx Family Stroke: No Hx Cardiac Disease: No Hx Family Diabetes: No Hx Family Cancer: Yes - skin cancer Hx Family;Other: thyroid problems and seizures Father Family History: No Known Name: Marlon Age (years): 68 Living Status: Still Living Hx Family Asthma: - Sister Hx Family Congestive Heart Failure: No Hx Family Hypertension: Yes Hx Family Stroke: No Hx Cardiac Disease: Yes Hx Family Diabetes: No Age of Onset (years of age): 32 Hx Family Cancer: - Grandmother Lymphoma Physical Exam - Physical Exam General Appearance: Alert, Comfortable, No apparent distress Eye Exam: bilateral normal Ears, Nose, Throat: normal ENT inspection, normal pharynx Neck: non-tender, full range of motion, supple, normal inspection Respiratory: lungs clear, normal breath sounds, no respiratory distress, no accessory muscle use Cardiovascular/Chest: normal peripheral pulses, no edema, no gallop, no JVD, no murmur, tachycardia Peripheral Pulses: radial,right: 2+, radial,left: 2+ Gastrointestinal/Abdominal: soft, tenderness - Suspicious exam, patient in NAD at rest but when going to do abdominal exam she is grimacing and complaining of pain even before being palpated, inconsistent areas of tenderness, unable to explain which areas are the most tender, at times soft and no guarding and at other times guarding and crying out in pain. When exam is over patient is comfortable. Bowel sounds are normal throughout, abdomen is nondistended. 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 Labs are pertinent for glucose of 391 with anion gap of 13 and UA with >1000 glucose and 40 ketones. Serum ketones are negative. Venous blood gas shows pH of 7.4. Findings are consistent with a mild non-anion gap metabolic acidosis. Does not appear to be in DKA. Suspect due to intractable nausea and vomiting, dehydration, hypovolemia, and poor medication compliance. Consider also sepsis, other causes. Will obtain blood cultures x2, begin another 1 L NS bolus, will give regular insulin [address] Will obtain [address] of the abdomen and pelvis given abdominal pain to search for sources of infection or other acute processes. Anticipate admission vs transfer to higher level of care for intractable nausea and vomiting 2/2 gastroparesis, dehydration, non anion gap metabolic acidosis, and hyperglycemia. 01/22/20 13:56 -CT A/P revealed some nonspecific bilateral inguinal lymphadenopathy, possibly reactive in nature, no other acute processes noted. Tachycardia is resolving with IV fluid boluses, patient remained stable, pain is improving, nausea is improving. -As patient is without fever or leukocytosis and is not in DKA and there is no clear source of infection, will withhold antibiotics at this time. -Mg is 1.7, so will begin Mag sulfate 2 g IV infusion. Repeat d-stick is 254. -Discussed the patient with Beverly Covarrubias, hospitalist, here regarding the patient. She feels that since the patient is presenting with similar presentation to her recent admission here with ongoing symptoms of gastroparesis that she at this point requires GI consultation at higher level of care facility. She also expresses extreme concern for drug seeking behavior which was demonstrated during her most recent admission here as well as other suspicious activity. Thus I spoke with the on-call GI doctor, Dr. Aviles, at [facility] who agrees with transfer to the hospitalist service. I spoke with Dr. Mckinney, hospitalist there, who accepts the patient for transfer. Will go via ground EMS in stable condition. Nicolas Gross MD Billing #[id number] 01/22/20 11:15 Sodium Chloride 0.9% (Flush) [Saline Flush Syringe] 10 ml IV PRN PRN 01/22/20 11:30 EKG STAT 01/22/20 12:37 Hold Metformin x 48Hrs [id number] 01/22/20 13:23 BLOOD CULTURE Stat 01/22/20 13:27 Arterial Blood Gas Stat 01/22/20 13:33 Magnesium Sulfate Premix 2Gm 2 gm Premix Bag 1 bag IVPB ONCE 01/22/20 13:59 GLUCOSE, FINGER STICK Stat Laboratory Results - last 24 hr 01/22/20 01/22/20 01/22/20 11:57 11:57 11:57 WBC 10.4 RBC 5.34 Hgb 14.4 Hct 43.1 MCV 80.8 L MCH 27.0 MCHC 33.5 RDW 13.4 Plt Count 404 H MPV 8.1 Absolute Neuts (auto) 8.10 H Absolute Lymphs (auto) 1.90 Absolute Monos (auto) 0.30 Absolute Eos (auto) 0.10 Absolute Basos (auto) 0.10 Neutrophils % 77.8 Lymphocytes % 17.9 L Monocytes % 2.7 Eosinophils % 0.9 L Basophils % 0.7 pCO2 pO2 HCO3 ABG pH ABG O2 Saturation ABG Base Excess Oxyhemoglobin % Carboxyhemoglobin % Methemoglobin % Sat Calc Total Hemoglobin Sodium 132 L Potassium 4.4 Chloride 102 Carbon Dioxide 17 L Anion Gap 17.4 BUN 16 Creatinine 0.76 BUN/Creatinine Ratio 21.1 H Random Glucose 391 H Serum Osmolality 282.0 Lactic Acid 1.5 Calcium 9.3 Magnesium Total Bilirubin 1.0 Direct Bilirubin 0.1 Indirect Bilirubin 0.9 H AST 20 ALT 62 H Alkaline Phosphatase 178 H Troponin I Serum Total Protein 8.2 Albumin 4.6 Lipase 27 Urine Color Urine Appearance Urine pH Ur Specific [place] Urine Protein Urine Glucose (UA) Urine Ketones Urine Blood Urine Nitrite Urine Bilirubin Urine Urobilinogen Ur Leukocyte Esterase Urine RBC Urine WBC Ur Epithelial Cells Urine Bacteria Urine HCG, Qual Urine Opiates Screen Urine Barbiturates Ur Phencyclidine Scrn U Amphetamin/Meth Scrn U Benzodiazepines Scrn U Cocaine Metab Screen U Cannabinoids Screen Serum Ketones 01/22/20 01/22/20 01/22/20 11:57 12:00 12:00 WBC RBC Hgb Hct MCV MCH MCHC RDW Plt Count MPV Absolute Neuts (auto) Absolute Lymphs (auto) Absolute Monos (auto) Absolute Eos (auto) Absolute Basos (auto) Neutrophils % Lymphocytes % Monocytes % Eosinophils % Basophils % pCO2 pO2 HCO3 ABG pH ABG O2 Saturation ABG Base Excess Oxyhemoglobin % Carboxyhemoglobin % Methemoglobin % Sat Calc Total Hemoglobin Sodium Potassium Chloride Carbon Dioxide Anion Gap BUN Creatinine BUN/Creatinine Ratio Random Glucose Serum Osmolality Lactic Acid Calcium Magnesium Total Bilirubin Direct Bilirubin Indirect Bilirubin AST ALT Alkaline Phosphatase Troponin I < 0.02 Serum Total Protein Albumin Lipase Urine Color Yellow Urine Appearance Clear Urine pH 5.5 Ur Specific [place] 1.015 Urine Protein Negative Urine Glucose (UA) >=1000 H Urine Ketones 40 H Urine Blood Small H Urine Nitrite Negative Urine Bilirubin Negative Urine Urobilinogen 0.2 Ur Leukocyte Esterase Negative Urine RBC 1-3 Urine WBC 0-1 Ur Epithelial Cells 5-10 Urine Bacteria Rare Urine HCG, Qual Negative Urine Opiates Screen Urine Barbiturates Ur Phencyclidine Scrn U Amphetamin/Meth Scrn U Benzodiazepines Scrn U Cocaine Metab Screen U Cannabinoids Screen Serum Ketones 01/22/20 01/22/20 01/22/20 12:00 12:30 12:55 WBC RBC Hgb Hct MCV MCH MCHC RDW Plt Count MPV Absolute Neuts (auto) Absolute Lymphs (auto) Absolute Monos (auto) Absolute Eos (auto) Absolute Basos (auto) Neutrophils % Lymphocytes % Monocytes % Eosinophils % Basophils % pCO2 pO2 HCO3 ABG pH ABG O2 Saturation ABG Base Excess Oxyhemoglobin % Carboxyhemoglobin % Methemoglobin % Sat Calc Total Hemoglobin Sodium Potassium Chloride Carbon Dioxide Anion Gap BUN Creatinine BUN/Creatinine Ratio Random Glucose Serum Osmolality Lactic Acid Calcium Magnesium 1.7 L Total Bilirubin Direct Bilirubin Indirect Bilirubin AST ALT Alkaline Phosphatase Troponin I Serum Total Protein Albumin Lipase Urine Color Urine Appearance Urine pH Ur Specific [place] Urine Protein Urine Glucose (UA) Urine Ketones Urine Blood Urine Nitrite Urine Bilirubin Urine Urobilinogen Ur Leukocyte Esterase Urine RBC Urine WBC Ur Epithelial Cells Urine Bacteria Urine HCG, Qual Urine Opiates Screen Negative Urine Barbiturates Negative Ur Phencyclidine Scrn Negative U Amphetamin/Meth Scrn Negative U Benzodiazepines Scrn Positive H U Cocaine Metab Screen Negative U Cannabinoids Screen Negative Serum Ketones Negative 01/22/20 13:27 WBC RBC Hgb Hct MCV MCH MCHC RDW Plt Count MPV Absolute Neuts (auto) Absolute Lymphs (auto) Absolute Monos (auto) Absolute Eos (auto) Absolute Basos (auto) Neutrophils % Lymphocytes % Monocytes % Eosinophils % Basophils % pCO2 30 L pO2 93 HCO3 18.2 ABG pH 7.400 ABG O2 Saturation 97.8 ABG Base Excess -5.3 Oxyhemoglobin % 94.5 Carboxyhemoglobin % 2.5 H Methemoglobin % Sat 0.8 Calc Total Hemoglobin 13.8 Sodium Potassium Chloride Carbon Dioxide Anion Gap BUN Creatinine BUN/Creatinine Ratio Random Glucose Serum Osmolality Lactic Acid Calcium Magnesium Total Bilirubin Direct Bilirubin Indirect Bilirubin AST ALT Alkaline Phosphatase Troponin I Serum Total Protein Albumin Lipase Urine Color Urine Appearance Urine pH Ur Specific [place] Urine Protein Urine Glucose (UA) Urine Ketones Urine Blood Urine Nitrite Urine Bilirubin Urine Urobilinogen Ur Leukocyte Esterase Urine RBC Urine WBC Ur Epithelial Cells Urine Bacteria Urine HCG, Qual Urine Opiates Screen Urine Barbiturates Ur Phencyclidine Scrn U Amphetamin/Meth Scrn U Benzodiazepines Scrn U Cocaine Metab Screen U Cannabinoids Screen Serum Ketones - EKG/XRAY/CT EKG: Sinus - HR 130, no ST elevations or Q waves noted, minimal ST segment depressions in inferior and lateral leads likely repolarization abnormality, slight left axis deviation noted, intervals normal, compared to 01/14/2020 EKG sinus tachycardia appears new., Tachy XRAY: chest - No acute processes per my read - Additional EKG/XRAY/Consults XRAY #2: abdomen - Nonspecific nonobstructive bowel gas pattern per my read, no other acute processes Departure - Departure Clinical Impression: Gastroparesis, Uncontrollable nausea and vomiting, Hyperglycemia due to type 1 diabetes mellitus, Drug-seeking behavior, Ketonuria, Dehydration, moderate, Hypomagnesemia Time of Disposition: 14:07 Disposition: Transfer to Hospital Condition: Fair Referrals: JUSTINO MARQUEZ IV, COMPUTER ENGINEERING TECHNICIAN [Primary Care Provider] - 1-2 Weeks Home Medications: Ambulatory Orders Mometasone Furoate [Elocon] 0.1 % TOP DAILY PRN 11/07/17 Epinephrine [Epipen 2-Mikael] 0.3 mg IJ ONCE PRN #1 pack 03/26/18 Buspirone HCl 30 mg PO BID 10/23/18 Diazepam 5 mg PO TID 02/21/19 Albuterol Inhaler [Ventolin Hfa Inhaler] 1 puff INH PRN PRN 02/25/19 Gabapentin 300 mg PO TID 11/11/19 Hydrocodone-Acetaminophen [Jarales 7.5-325 mg] 1 tab PO TID 11/11/19 Vilazodone HCl [Viibryd] 40 mg PO DAILY 11/11/19 tiZANidine [Zanaflex] 12 mg PO Q8H PRN 11/11/19 Ondansetron Odt [Zofran Odt] 8 mg PO Q8H PRN #12 tab 12/25/19 Albuterol Sulfate [Proair Hfa] 2 puff INH Q6H PRN 01/01/20 Azelastine HCl [Azelastine Hydrochloride] 0.1 % INH PRN PRN 01/01/20 Benztropine Mesylate 1 mg PO DAILY 01/01/20 Esomeprazole Magnesium [Nexium] 40 mg PO DAILY 01/01/20 Glucagon [Baqsimi One Pack] 3 mg NA PRN 01/01/20 Hydroxyzine HCl [Hydroxyzine Hydrochloride] 50 mg PO QID 01/01/20 Insulin Glargine [Lantus Solostar] 10 unit SC BEDTIME 01/01/20 Insulin Glargine [Lantus Solostar] 25 unit SC DAILY 01/01/20 Mometasone Furoate 0.1 % TOP PRN 01/01/20 Naloxone HCl [Narcan] 4 mg NA PRN 01/01/20 Promethazine Tab [Phenergan Tablet] 25 mg PO .Q4H PRN 01/01/20 Salmeterol Xinafoate [Serevent Diskus] 50 mcg IN PRN 01/01/20 Triamcinolone 0.5% Cream [Kenalog 0.5% Cream] 1 applic TOP PRN 01/01/20 Acetaminophen W/ Codeine [Tylenol W/ CODEINE #3] 1 ea PO Q6H PRN #20 01/14/20 Transfer to Outside Facility - Transfer Information Decision to Transfer Date: 01/22/20 Decision to Transfer Time: 14:07 Reason for Transfer: required specialist not available - gastroenterology Accepting Provider:: Dr. Mckinney Accepting Facility: [facility]
[2020-01-22] MEDS ORDERED: PROMETHAZINE HCL INJ 12.5 MG in SODIUM CHLORIDE 0.9% 50ML 50 ML IVPB ONE (11:28)
--- NOTE | 2020-01-22 12:19 | RAD ---
EXAM DESCRIPTION: Abdomen 1 View CLINICAL HISTORY: 44 years Female, abdominal pain, hx of gastroparesis COMPARISON: None. Findings: 1 view(s)/radiograph(s) Location: abdomen Nonobstructive bowel gas pattern. No suspicious calcification. No acute osseous abnormalities. Soft tissues are unremarkable. Moderate stool volume. Cholecystectomy clips. IMPRESSION: Nonobstructive bowel gas pattern. Electronically signed by: Philip Abdi MD 01/22/2020 12:18 PM CDT
--- NOTE | 2020-01-22 12:20 | RAD ---
EXAM DESCRIPTION: Chest,1 View CLINICAL HISTORY: 44 years Female, chest pain COMPARISON: January 14, 2020 FINDINGS: One view/radiograph Heart size and pulmonary vessels are within normal limits. There is no pneumothorax or pleural effusion. The lungs are clear bilaterally. The soft tissues are unremarkable. No acute osseous findings. IMPRESSION: No acute cardiopulmonary abnormality. Electronically signed by: Philip Abdi MD 01/22/2020 12:18 PM CDT
[2020-01-22] MEDS ORDERED: INSULIN, REG.(HUMAN) 100 U/ML VIAL IV ONE (12:33)
[2020-01-22] MEDS ORDERED: fentaNYL CITRATE INJ 50 MCG/ML 2 ML AMP IV ONE (12:51)
--- NOTE | 2020-01-22 13:20 | CT ---
EXAM DESCRIPTION: Abdomen/Pelvis w/Contrast CLINICAL HISTORY: diffuse abdominal pain, DKA COMPARISON: January 16, 2020 TECHNIQUE: Postcontrast CT images of the abdomen and pelvis are obtained using standard imaging protocol. This exam was performed according to our departmental dose-optimization program, which includes automated exposure control, adjustment of the mA and/or kV according to patient size and/or use of iterative reconstruction technique . FINDINGS: The lower chest, liver, spleen, pancreas, adrenal glands, kidneys, ureters, and urinary bladder are unremarkable. Cholecystectomy changes. Mild atherosclerotic disease. Post surgical changes from appendectomy stable. Stomach and small bowel are unremarkable. No bowel obstruction or inflammatory changes. No diverticular disease. No pathologic lymphadenopathy, free intraperitoneal air, or abnormal fluid collections. Mildly enlarged lymph nodes in the inguinal region bilaterally could be reactive. IMPRESSION: No acute findings on CT of the abdomen and pelvis. Electronically signed by: Jerry Delatorre MD 01/22/2020 1:18 PM CDT
[2020-01-22] MEDS ORDERED: MAGNESIUM SULFATE PREMIX 2GM 2 GM in PREMIX BAG 1 BAG IVPB ONE (13:33)
[2020-01-22 14:39] VITALS: O2SAT 100
[2020-01-22 14:43] VITALS: BP 90/61; TEMP 98.2
== END 2020-01-22 14:50 | disposition short-term general hospital (02) ==
LOC: ER 11:08
DX: E10.43 Type 1 diabetes mellitus with diabetic autonomic (poly)neuropathy (principal); E86.0 Dehydration; K31.84 Gastroparesis; E83.42 Hypomagnesemia; R11.2 Nausea with vomiting, unspecified; I10 Essential (primary) hypertension; R82.4 Acetonuria; Z76.5 Malingerer [conscious simulation]; F17.200 Nicotine dependence, unspecified, uncomplicated
CPT/HCPCS: 36415; 36416; 36600; 71045; 74018; 74177; 80048; 80076; 80307; 81001; 81025; 82009; 82803; 82805; 82948; 83605; 83690; 83735; 84484; 85025; 87040; 93005; A4216; J2550; J3010; J3475; J7030

== ENCOUNTER → 2020-02-03 | Outpatient (CLI) | payer MEDICARE, MEDICAID | LOC: LAB.O 12:53 | PROVIDERS: ATTEND Nurse Practitioner Family | DX: I10 Essential (primary) hypertension (principal); E10.65 Type 1 diabetes mellitus with hyperglycemia ==

== ENCOUNTER 2020-02-08 06:44 | Emergency (ER) | payer MEDICARE, MEDICAID ==
[2020-02-08] MEDS ORDERED: SODIUM CHLORIDE 0.9% 1000ML 1,000 ML IVS ONE (06:49)
[2020-02-08] MEDS ORDERED: INSULIN, REG.(HUMAN) 100 U/ML VIAL IV ONE (06:49)
[2020-02-08] MEDS ORDERED: BUTORPHANOL TARTRATE 2 MG/ML VIAL IV ONE (06:49)
--- NOTE | 2020-02-08 06:53 | ED.PDOC ---
History of Present Illness - General Source: patient Exam Limitations: no limitations - History of Present Illness Initial Comments: The patient is a 44-year-old female presented emergency room secondary to nausea and vomiting that started around 3 AM this morning. The patient's blood sugars have been escalating over the last 24 hours as she has been having significant diarrhea. No definite fevers. She did take some insulin around 30 this morning. She is having some abdominal cramping. She is also having some left sided chest pain that is worse with palpation. Timing/Duration: 4-6 hours Severity: moderate Improving Factors: nothing Worsening Factors: movement Associated Symptoms: chest pain, malaise, nausea/vomiting <Lana Macdonald - Last Filed: 02/08/20 06:51> <Juan Alberto Arreola - Last Filed: 02/08/20 18:12> - General Time Seen by Provider: 02/08/20 06:49 - History of Present Illness Allergies/Adverse Reactions: Allergies Fish Allergy Allergy (Verified 01/14/20 17:07) Metoclopramide [From Reglan] Adverse Reaction (Verified 01/14/20 17:42) peanut Allergy (Severe, Uncoded 11/30/19 19:02) Home Medications: Ambulatory Orders Mometasone Furoate [Elocon] 0.1 % TOP DAILY PRN 11/07/17 Epinephrine [Epipen 2-Mikael] 0.3 mg IJ ONCE PRN #1 pack 03/26/18 Buspirone HCl 30 mg PO BID 10/23/18 Diazepam 5 mg PO TID 02/21/19 Albuterol Inhaler [Ventolin Hfa Inhaler] 1 puff INH PRN PRN 02/25/19 Gabapentin 300 mg PO TID 11/11/19 Hydrocodone-Acetaminophen [Erskine 7.5-325 mg] 1 tab PO TID 11/11/19 Vilazodone HCl [Viibryd] 40 mg PO DAILY 11/11/19 tiZANidine [Zanaflex] 12 mg PO Q8H PRN 11/11/19 Ondansetron Odt [Zofran Odt] 8 mg PO Q8H PRN #12 tab 12/25/19 Albuterol Sulfate [Proair Hfa] 2 puff INH Q6H PRN 01/01/20 Azelastine HCl [Azelastine Hydrochloride] 0.1 % INH PRN PRN 01/01/20 Benztropine Mesylate 1 mg PO DAILY 01/01/20 Esomeprazole Magnesium [Nexium] 40 mg PO DAILY 01/01/20 Glucagon [Baqsimi One Pack] 3 mg NA PRN 01/01/20 Hydroxyzine HCl [Hydroxyzine Hydrochloride] 50 mg PO QID 01/01/20 Insulin Glargine [Lantus Solostar] 10 unit SC BEDTIME 01/01/20 Insulin Glargine [Lantus Solostar] 25 unit SC DAILY 01/01/20 Mometasone Furoate 0.1 % TOP PRN 01/01/20 Naloxone HCl [Narcan] 4 mg NA PRN 01/01/20 Promethazine Tab [Phenergan Tablet] 25 mg PO .Q4H PRN 01/01/20 Salmeterol Xinafoate [Serevent Diskus] 50 mcg IN PRN 01/01/20 Triamcinolone 0.5% Cream [Kenalog 0.5% Cream] 1 applic TOP PRN 01/01/20 Acetaminophen W/ Codeine [Tylenol W/ CODEINE #3] 1 ea PO Q6H PRN #20 01/14/20 Review of Systems - Review of Systems Constitutional: States: malaise, weakness EENTM: States: no symptoms reported Respiratory: States: no symptoms reported Cardiology: States: chest pain Gastrointestinal/Abdominal: States: abdominal pain, diarrhea, nausea, vomiting Genitourinary: States: no symptoms reported Musculoskeletal: States: no symptoms reported, other - Chronic back pain Skin: States: no symptoms reported Neurological: States: anxiety Endocrine: States: no symptoms reported All other Systems: No Change from Baseline <Lana Macdonald - Last Filed: 02/08/20 06:51> Past Medical History (General) - Patient Medical History Hx Seizures: Yes Hx Stroke: No Hx Dementia: No Hx Asthma: Yes Hx of COPD: No Hx Cardiac Disorders: No Hx Congestive Heart Failure: No Hx Pacemaker: No Hx Hypertension: Yes Hx Thyroid Disease: No Hx Diabetes: Yes Hx Gastroesophageal Reflux: Yes Hx Renal Disease: No Hx Cancer: No Hx of HIV: No Hx Hepatitis C: No Hx MRSA: Yes MRSA Source:: Blood - Vaccination History Hx Tetanus, Diphtheria Vaccination: No Hx Influenza Vaccination: Yes Hx Pneumococcal Vaccination: Yes - Social History Hx Tobacco Use: Yes Hx Chewing Tobacco Use: No Hx Alcohol Use: No Hx Substance Use: No Hx Substance Use Treatment: No Hx Depression: Yes Hx Physical Abuse: No Hx Emotional Abuse: No Hx Suspected Abuse: No - Female History Hx Last Menstrual Period: 11/05/11 Patient : Yes <Lana Macdonald Zeferino - Last Filed: 02/08/20 06:51> Family Medical History - Family History Mother Family History: No Known Name: April Age (years): 70 Living Status: Still Living Hx Family Asthma: No Hx Family Congestive Heart Failure: No Hx Family Hypertension: No Hx Family Stroke: No Hx Cardiac Disease: No Hx Family Diabetes: No Hx Family Cancer: Yes - skin cancer Hx Family;Other: thyroid problems and seizures Father Family History: No Known Name: Marlon Age (years): 68 Living Status: Still Living Hx Family Asthma: - Sister Hx Family Congestive Heart Failure: No Hx Family Hypertension: Yes Hx Family Stroke: No Hx Cardiac Disease: Yes Hx Family Diabetes: No Age of Onset (years of age): 32 Hx Family Cancer: - Grandmother Lymphoma <Jhonathan Macdonaldclover Mcgarry - Last Filed: 02/08/20 06:51> Physical Exam - Physical Exam General Appearance: Alert, Anxious Eye Exam: bilateral normal Ears, Nose, Throat: hearing grossly normal, normal pharynx Neck: full range of motion, supple Respiratory: lungs clear, normal breath sounds, no respiratory distress, no accessory muscle use Cardiovascular/Chest: normal peripheral pulses, no edema, tachycardia Peripheral Pulses: radial,right: 2+, radial,left: 2+ Gastrointestinal/Abdominal: soft, other - Mild diffuse abdominal discomfort to palpation. No definite point tenderness. 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 Skin Exam: normal color <TorresLana Mcgarry - Last Filed: 02/08/20 06:51> Progress - Progress Progress: 02/08/20 06:55 The patient is a 44-year-old female brought in by EMS secondary to n ausea and vomiting starting around 3 AM this morning with a glucose reading high on the glucometer. The patient has had some diarrhea for a couple of days prior. Laboratory work is being sent off. The patient is receiving a liter of IV fluids as well as nausea and pain medications. The patient does have some sinus tachycardia on the EKG. Laboratory work is pending. The patient will be followed by Dr. Arreola, the oncoming ER physician. lana macdonald [phone] - Results/Orders Results/Orders: EKG shows sinus tachycardia 126 bpm. Normal axis. Slow R wave progression in anterior leads. No definitive ST segment or T wave changes indicative of acute ischemia. Normal QT interval. Mild left atrial dilation. <Lana Macdonald L - Last Filed: 02/08/20 06:51> - Progress Progress: 07:04 I, Dr. Juan Alberto Arreola DO, have taken over care of pt. I have reviewed current ED visit as well as pertinent past visits and lab/imaging results. Pt is still pending workup here in ED. I will f/u labs, imaging, review EKG, provide appropriate pharmacotherapy as indicated, and continue to monitor/reassess. Disposition will depend on labs, imaging, EKG, and pt's overall course throughout ED encounter. 08:36 I have discussed need for admission with pt along with findings of current ED workup. Pt agrees with transfer for admission to [facility] in [facility]. Pt declines [facility] for transfer due to high number of COVID patients being hospitalized during this time of the SARS-CoV-2 global pandemic. [facility] is also at capacity. Pt is still with pain and I will order further pain medication. Pt has had no further emesis since receiving phenergan. Juan Alberto Arreola DO Emergency Medicine Physician [facility] #: [phone] I have consulted with ED physician at [facility] and discussed pt's case in ED. They accept pt for transfer and admission. They currently have no PCU bed available for pt; therefore, she will proceed to the ED first. - Results/Orders Results/Orders: 02/08/20 06:50 Telemetry .CONTINUOUS Vital Signs-Tilt PRN 02/08/20 06:54 STOOL CULTURE Stat CRYPTOSPORIDIA AG,STOOL Stat NOROVIRUS,EIA STOOL Stat 02/08/20 07:00 EKG STAT 02/08/20 07:18 D-DIMER,QUANTITATIVE Stat PARTIAL THROMBOPLASTIN TIME Stat PROTHROMBIN TIME Stat CBC (AUTOMATED) W/AUTO DIFF Stat 02/08/20 07:42 Arterial Blood Gas Assessment STAT 02/08/20 08:10 KCl 40Meq/Ns [NS W/ KCL 40 meq/Liter] 1,000 ml IVS .QD 02/08/20 08:11 NPO per Nursing ONCE 02/08/20 08:30 Insulin, Reg.(Human) [HumuLIN R] 250 units Sodium Chl 0.9% 250Ml (Radha) [NS 250ml (RADHA)] 247.5 ml IVPB Q12H 02/08/20 08:51 UA [URINALYSIS] Stat 02/08/20 Breakfast NPO Diet [NPO Except Meds] Laboratory Results - last 24 hr 02/08/20 02/08/20 02/08/20 07:18 07:18 07:18 D-Dimer, Quantitative 262.0 pCO2 pO2 HCO3 ABG pH ABG O2 Saturation ABG Base Excess ABG Deoxyhemoglobin Oxyhemoglobin % Carboxyhemoglobin % Methemoglobin % Sat Calc Total Hemoglobin Sodium 134 L Potassium 4.6 Chloride 100 L Carbon Dioxide 9 L* Anion Gap 29.6 H BUN 21 H Creatinine 0.93 BUN/Creatinine Ratio 22.6 H Random Glucose 589 H* Serum Osmolality 298.5 H Lactic Acid 1.8 Calcium 9.2 Magnesium 1.8 Total Bilirubin 1.5 H AST 24 ALT 143 H Alkaline Phosphatase 262 H Creatine Kinase 31 CK-MB (CK-2) 0.6 CK-MB (CK-2) % Not Reportable Troponin I < 0.02 B-Natriuretic Peptide < 15.0 Serum Total Protein 7.8 Albumin 4.2 Globulin 3.6 H Albumin/Globulin Ratio 1.2 Amylase 51 Lipase 21 L Serum HCG, Qual 02/08/20 02/08/20 02/08/20 07:18 07:30 08:03 D-Dimer, Quantitative pCO2 29 L pO2 35 L* HCO3 11.2 ABG pH 7.193 L* ABG O2 Saturation 60.5 L* ABG Base Excess -15.6 ABG Deoxyhemoglobin 38.3 H Oxyhemoglobin % 58.7 L Carboxyhemoglobin % 2.1 H Methemoglobin % Sat 0.9 Calc Total Hemoglobin 12.5 Sodium Potassium Chloride Carbon Dioxide Anion Gap BUN Creatinine BUN/Creatinine Ratio Random Glucose Serum Osmolality Lactic Acid Calcium Magnesium 1.8 Total Bilirubin AST ALT Alkaline Phosphatase Creatine Kinase CK-MB (CK-2) CK-MB (CK-2) % Troponin I B-Natriuretic Peptide Serum Total Protein Albumin Globulin Albumin/Globulin Ratio Amylase Lipase Serum HCG, Qual Negative EXAM DESCRIPTION: Obstructive series, 3 radiographs CLINICAL HISTORY: Nausea and vomiting and diarrhea. Chest pain FINDINGS/ IMPRESSION: Normal cardiomediastinal silhouette. Lungs are clear. Scattered large and small intestinal bowel gas without evidence of mechanical bowel obstruction. No pneumatosis or free intraperitoneal air Previous cholecystectomy. No organomegaly. No pathologic calcification Electronically signed by: Can Baum MD 02/08/2020 7:38 AM CDT I, Dr. Juan Alberto Arreola, DO, have reviewed radiology imaging and official radiology read. I agree with above findings. Vital Signs - 24 hr 02/08/20 02/08/20 02/08/20 06:50 07:01 07:03 Temperature 98.1 F 98.1 F 98.1 F Pulse Rate [ 93 H 111 H 108 H brachial] Respiratory 24 24 22 Rate Blood Pressure 128/80 124/96 121/87 [Right Arm] O2 Sat by Pulse 100 100 98 Oximetry 02/08/20 02/08/20 02/08/20 07:44 08:00 08:59 Temperature 98.6 F Pulse Rate [ 108 H 101 H brachial] Respiratory 20 20 Rate Blood Pressure 108/72 106/67 [Right Arm] O2 Sat by Pulse 100 99 Oximetry 02/08/20 02/08/20 02/08/20 09:00 10:00 10:11 Temperature 98.6 F 98.6 F Pulse Rate [ 109 H 104 H 104 H brachial] Respiratory 20 18 18 Rate Blood Pressure 109/61 106/84 106/84 [Right Arm] O2 Sat by Pulse 97 98 98 Oximetry <Juan Alberto Arreola - Last Filed: 02/08/20 18:12> Departure <Lana Macdonald - Last Filed: 02/08/20 06:51> - Departure Time of Disposition: 08:26 <Juan Alberto Arreola - Last Filed: 02/08/20 18:12> - Departure Clinical Impression: Cyclical vomiting with nausea Uncontrolled diabetes mellitus Qualifiers: Diabetes mellitus type: type 1 Glycemic state: with hyperglycemia Qualified Code(s): E10.65 - Type 1 diabetes mellitus with hyperglycemia DKA (diabetic ketoacidosis) Qualifiers: Diabetes mellitus type: type 1 Diabetes mellitus complication detail: without coma Qualified Code(s): E10.10 - Type 1 diabetes mellitus with ketoacidosis without coma Disposition: Transfer to Hospital Condition: Poor Departure Forms: ED Discharge - Pt. Copy, Patient Portal Self Enrollment Instructions: DI for Diabetes Type 2 Referrals: JUSTINO MARQUEZ IV, MARKETING AUTOMATION ANALYST [Primary Care Provider] - 1-2 Weeks Home Medications: Ambulatory Orders Mometasone Furoate [Elocon] 0.1 % TOP DAILY PRN 11/07/17 Epinephrine [Epipen 2-Mikael] 0.3 mg IJ ONCE PRN #1 pack 03/26/18 Buspirone HCl 30 mg PO BID 10/23/18 Diazepam 5 mg PO TID 02/21/19 Albuterol Inhaler [Ventolin Hfa Inhaler] 1 puff INH PRN PRN 02/25/19 Gabapentin 300 mg PO TID 11/11/19 Hydrocodone-Acetaminophen [Erskine 7.5-325 mg] 1 tab PO TID 11/11/19 Vilazodone HCl [Viibryd] 40 mg PO DAILY 11/11/19 tiZANidine [Zanaflex] 12 mg PO Q8H PRN 11/11/19 Ondansetron Odt [Zofran Odt] 8 mg PO Q8H PRN #12 tab 12/25/19 Albuterol Sulfate [Proair Hfa] 2 puff INH Q6H PRN 01/01/20 Azelastine HCl [Azelastine Hydrochloride] 0.1 % INH PRN PRN 01/01/20 Benztropine Mesylate 1 mg PO DAILY 01/01/20 Esomeprazole Magnesium [Nexium] 40 mg PO DAILY 01/01/20 Glucagon [Baqsimi One Pack] 3 mg NA PRN 01/01/20 Hydroxyzine HCl [Hydroxyzine Hydrochloride] 50 mg PO QID 01/01/20 Insulin Glargine [Lantus Solostar] 10 unit SC BEDTIME 01/01/20 Insulin Glargine [Lantus Solostar] 25 unit SC DAILY 01/01/20 Mometasone Furoate 0.1 % TOP PRN 01/01/20 Naloxone HCl [Narcan] 4 mg NA PRN 01/01/20 Promethazine Tab [Phenergan Tablet] 25 mg PO .Q4H PRN 01/01/20 Salmeterol Xinafoate [Serevent Diskus] 50 mcg IN PRN 01/01/20 Triamcinolone 0.5% Cream [Kenalog 0.5% Cream] 1 applic TOP PRN 01/01/20 Acetaminophen W/ Codeine [Tylenol W/ CODEINE #3] 1 ea PO Q6H PRN #20 01/14/20 Critical Care Note - Critical Care Note Total Time (mins): 37 <Juan Alberto Arreola - Last Filed: 02/08/20 18:12> Transfer to Outside Facility - Transfer Information Decision to Transfer Date: 02/08/20 Decision to Transfer Time: 08:26 Reason for Transfer: specialized care not available Accepting Facility: [facility] <Juan Alberto Arreola - Last Filed: 02/08/20 18:12>
[2020-02-08] MEDS ORDERED: PROMETHAZINE HCL INJ 12.5 MG in SODIUM CHLORIDE 0.9% 50ML 50 ML IVPB ONE (06:54)
--- NOTE | 2020-02-08 07:39 | RAD ---
EXAM DESCRIPTION: Obstructive series, 3 radiographs CLINICAL HISTORY: Nausea and vomiting and diarrhea. Chest pain FINDINGS/ IMPRESSION: Normal cardiomediastinal silhouette. Lungs are clear. Scattered large and small intestinal bowel gas without evidence of mechanical bowel obstruction. No pneumatosis or free intraperitoneal air Previous cholecystectomy. No organomegaly. No pathologic calcification Electronically signed by: Can Baum MD 02/08/2020 7:38 AM CDT
[2020-02-08] MEDS ORDERED: diazePAM INJ 10 MG/2 ML SYG IV ONE (07:40)
[2020-02-08] MEDS ORDERED: KCL 40MEQ/NS 1,000 ML IVS PRN (08:10)
[2020-02-08] MEDS ORDERED: KCL 40MEQ/NS 1,000 ML IVS ONE (08:25)
[2020-02-08] MEDS ORDERED: INSULIN, REG.(HUMAN) 250 UNITS in SODIUM CHL 0.9% 250ML (AVIVA) 247.5 ML IVPB SCH ×2 (08:30)
[2020-02-08] MEDS ORDERED: fentaNYL CITRATE INJ 50 MCG/ML AMP IV ONE (08:32)
[2020-02-08 09:00] VITALS: TEMP 98.6
[2020-02-08 10:18] VITALS: BP 106/84; O2SAT 98
== END 2020-02-08 10:11 | disposition short-term general hospital (02) ==
LOC: ER 06:44
DX: E10.10 Type 1 diabetes mellitus with ketoacidosis without coma (principal); R11.2 Nausea with vomiting, unspecified; R19.7 Diarrhea, unspecified; R07.9 Chest pain, unspecified; I10 Essential (primary) hypertension; F17.200 Nicotine dependence, unspecified, uncomplicated
CPT/HCPCS: 36415; 36416; 74019; 80053; 81001; 82150; 82550; 82553; 82803; 82805; 82948; 83605; 83690; 83735; 83880; 84484; 84703; 85379; 93005; A4216; J0595; J2550; J3010; J3360; J3480; J7030

== ENCOUNTER 2020-02-19 07:13 | Day surgery (SDC) | payer MEDICARE, MEDICAID ==
[2020-02-19] MEDS ORDERED: PROPOFOL 200 MG/20 ML VIAL IV ONE (07:14)
[2020-02-19] MEDS ORDERED: LIDOCAINE 1% 10 ML VIAL INJ ONE (07:14)
[2020-02-19] MEDS ORDERED: MIDAZOLAM INJ 2 MG/2 ML VIAL ONE (07:40)
[2020-02-19] MEDS ORDERED: fentaNYL CITRATE INJ 50 MCG/ML AMP ONE (07:40)
[2020-02-19] MEDS ORDERED: LACTATED RINGERS 1,000 ML IVS ONE (08:20)
[2020-02-19] MEDS ORDERED: SODIUM CHLORIDE 0.9% 50 ML VIAL ONE (08:33)
[2020-02-19] MEDS ORDERED: BUPIVACAINE 0.5% W/EPI 30 ML VIAL INJ ONE (08:33)
[2020-02-19] MEDS ORDERED: HEPARIN SODIUM 100 U/ML 5 ML SYG IV ONE (08:34)
[2020-02-19] MEDS ORDERED: ACETAMINOPHEN IV 1000MG 100 ML ONE (09:51)
[2020-02-19] MEDS ORDERED: ACETAMINOPHEN IV 1000 MG/100 ML BOTTLE IVPB ONE (09:55)
--- NOTE | 2020-02-19 10:12 | OP ---
DATE OF PROCEDURE: 02/19/20 PREOPERATIVE DIAGNOSIS: 1. History of multiple admissions and poor IV access. POSTOPERATIVE DIAGNOSIS: 1. History of multiple admissions and poor IV access. PROCEDURE: 1. Placement of power port Port-A-Cath. 2. Intraoperative ultrasound for placement of intravenous catheter. 3. Intraoperative fluoroscopy, less than 1 minute with interpretation. SURGEON: Aristides Mercedes MD. ANESTHESIA: General and local. FINDINGS: There was excellent position of catheter tip with 13 cm at the neck. There was good flush and flow. COMPLICATIONS: None. ESTIMATED BLOOD LOSS: Minimal. CONDITION: Stable. PLAN: Discharge. INDICATION: As stated. PROCEDURE: IV general anesthesia was induced. She was prepped and draped in sterile fashion. Site-Rite ultrasound was used to identify the dominant jugular vein. On the first pass, we got return of dark blood. The wires was introduced. There was slight resistance. Fluoroscopy showed that it did curl, so we had to remove it and re-stick. That time, it went straight down and on the right side. We then prepared the chest site for the port above the second rib and undermining, we cut lateral to the wire and undermined to allow for curvature of the catheter. The introducer dilator was then placed and removed. The trimmed catheter was placed over the wire and fluoroscopy confirmed proper position of the tip at about 13 cm at the neck. The wire was then removed. It was flushed, mated to the tunnel and tunneled down to the chest site. We flushed again and it was functioning normally. It was trimmed, mated to the port and locked. The port was then secured in the pocket with a single medial Prolene suture. It was functioning well. It was then flushed with heparinized saline solution, 100:1. Final picture showed the port in place with a nice curve at the neck without any kinking. The wound was closed in 2 layers with absorbable suture. The neck was closed with 4-0 Vicryl and dressings applied. She tolerated the procedure. She was then awakened and taken to Recovery to be discharged. #[id number] MTDD
--- NOTE | 2020-02-19 10:15 | RAD ---
EXAM DESCRIPTION: Fluoroscopy Up to 1Hr CLINICAL HISTORY: PORT A CATH PLACEMENT COMPARISON: None. TECHNIQUE: Fluoroscopy time is 20.6 seconds, dose is 1.78 mGy, one spot film. FINDINGS: Exam demonstrates placement of an [id number] catheter in the right IJ position with the distal tip in the region of the superior vena cava. IMPRESSION: Right IJ Port-A-Cath placement Electronically signed by: Candido Zavala MD 02/19/2020 10:13 AM CDT
[2020-02-19 10:50] VITALS: TEMP 97
[2020-02-19 10:55] VITALS: BP 106/72; O2SAT 99
== END 2020-02-19 10:35 | disposition home or self-care (01) ==
LOC: AMB 07:13
PROVIDERS: ATTEND Surgery
DX: Z45.2 Encounter for adjustment and management of vascular access device (principal); J45.909 Unspecified asthma, uncomplicated; E11.9 Type 2 diabetes mellitus without complications; I10 Essential (primary) hypertension; F17.200 Nicotine dependence, unspecified, uncomplicated; F32.9 Major depressive disorder, single episode, unspecified; K21.9 Gastro-esophageal reflux disease without esophagitis; F41.9 Anxiety disorder, unspecified; G40.909 Epilepsy, unspecified, not intractable, without status epilepticus; Z91.018 Allergy to other foods; Z91.013 Allergy to seafood; Z79.899 Other long term (current) drug therapy; Z79.4 Long term (current) use of insulin
CPT/HCPCS: 00532; 36415; 36416; 36561; 76000; 80048; 81001; 82948; 85025; A4216; C1788; J1642; J2250; J3490; J7120

== ENCOUNTER 2020-02-19 16:59 | Emergency (ER) | payer MEDICARE, MEDICAID ==
--- NOTE | 2020-02-19 17:08 | ED.PDOC ---
History of Present Illness - General Time Seen by Provider: 02/19/20 17:02 Source: patient - History of Present Illness Initial Comments: 44 yo female with PMH of DM1, gastroparesis, chronic pain, drug-seeking behavior who presents with cc of abdominal pain and vomiting. Reports onset of abdominal pain yesterday. She had a Mediport placed of the right chest wall this morning and reports worsening of symptoms after her Mediport placement. Now complains of sharp constant pains to the right and the left side of her abdomen, radiates all over her abdomen, 10/10 severity, worsens with palpation and with any attempted p.o. intake. States she has been trying to drink water at home. However she reports she has vomited 5 times since last night, most recently just prior to arrival. She also reports intermittent watery diarrhea for a couple of days. She has tried taking her [place] twice today along with her Zanaflex, Klonopin, and sublingual Zofran without any relief in symptoms. Last month I saw the patient for a very similar presentation and ended up transferring her to [facility] for GI consultation. She reports that no scopes were done. She is unsure of the results of that hospitalization. She reports she is supposed to see a digestive specialist next month although originally her appointment was scheduled for January 27. Patient has history of type 1 diabetes and DKA in the past. She reports that her blood glucose was 300 this morning, then 170s around lunchtime, and then shot back up near 400 just prior to ED arrival. She states that she took 25 units of Levemir this morning and 5 units of short acting insulin just prior to ED arrival. Allergies/Adverse Reactions: Allergies Fish Allergy Allergy (Verified 01/14/20 17:07) Ketorolac Tromethamine [From Toradol] Adverse Reaction (Verified 02/17/20 14:43) Metoclopramide [From Reglan] Adverse Reaction (Verified 01/14/20 17:42) peanut Allergy (Severe, Uncoded 11/30/19 19:02) Home Medications: Ambulatory Orders Mometasone Furoate [Elocon] 0.1 % TOP DAILY PRN 11/07/17 Epinephrine [Epipen 2-Mikael] 0.3 mg IJ ONCE PRN #1 pack 03/26/18 Buspirone HCl 30 mg PO BID 10/23/18 Diazepam 5 mg PO TID 02/21/19 Gabapentin 300 mg PO TID 11/11/19 Hydrocodone-Acetaminophen [[place] 7.5-325 mg] 1 tab PO TID 11/11/19 Vilazodone HCl [Viibryd] 40 mg PO DAILY 11/11/19 tiZANidine [Zanaflex] 12 mg PO Q8H PRN 11/11/19 Ondansetron Odt [Zofran Odt] 8 mg PO Q8H PRN #12 tab 12/25/19 Albuterol Sulfate [Proair Hfa] 2 puff INH Q6H PRN 01/01/20 Azelastine HCl [Azelastine Hydrochloride] 0.1 % INH PRN PRN 01/01/20 Esomeprazole Magnesium [Nexium] 40 mg PO PRN 01/01/20 Glucagon [Baqsimi One Pack] 3 mg NA PRN 01/01/20 Hydroxyzine HCl [Hydroxyzine Hydrochloride] 50 mg PO QID 01/01/20 Insulin Glargine [Lantus Solostar] 10 unit SC BEDTIME 01/01/20 Insulin Glargine [Lantus Solostar] 25 unit SC DAILY 01/01/20 Mometasone Furoate 0.1 % TOP PRN 01/01/20 Naloxone HCl [Narcan] 4 mg NA PRN 01/01/20 Promethazine Tab [Phenergan Tablet] 25 mg PO .Q4H PRN 01/01/20 Salmeterol Xinafoate [Serevent Diskus] 50 mcg IN PRN 01/01/20 Triamcinolone 0.5% Cream [Kenalog 0.5% Cream] 1 applic TOP PRN 01/01/20 Review of Systems - Review of Systems Review of Systems: 02/19/20 17:24 As per HPI All other Systems: Reviewed and Negative Past Medical History (General) - Patient Medical History Hx Seizures: Yes Hx Stroke: No Hx Dementia: No Hx Asthma: Yes Hx of COPD: No Hx Cardiac Disorders: No Hx Congestive Heart Failure: No Hx Pacemaker: No Hx Hypertension: Yes Hx Thyroid Disease: No Hx Diabetes: Yes - FSBS 171 Hx Gastroesophageal Reflux: Yes Hx Renal Disease: No Hx Cancer: No Hx of HIV: No Hx Hepatitis C: No Hx MRSA: Yes - 2 yrs ago. MRSA Source:: Blood - Vaccination History Hx Tetanus, Diphtheria Vaccination: No Hx Influenza Vaccination: Yes Hx Pneumococcal Vaccination: Yes - Social History Hx Tobacco Use: Yes Hx Chewing Tobacco Use: No Hx Alcohol Use: No Hx Substance Use: No Hx Substance Use Treatment: No Hx Depression: Yes Hx Physical Abuse: No Hx Emotional Abuse: No Hx Suspected Abuse: No - Female History Hx Last Menstrual Period: 11/05/11 Patient : Yes Family Medical History - Family History Mother Family History: No Known Name: April Age (years): 70 Living Status: Still Living Hx Family Asthma: No Hx Family Congestive Heart Failure: No Hx Family Hypertension: No Hx Family Stroke: No Hx Cardiac Disease: No Hx Family Diabetes: No Hx Family Cancer: Yes - skin cancer Hx Family;Other: thyroid problems and seizures Father Family History: No Known Name: Marlon Age (years): 68 Living Status: Still Living Hx Family Asthma: - Sister Hx Family Congestive Heart Failure: No Hx Family Hypertension: Yes Hx Family Stroke: No Hx Cardiac Disease: Yes Hx Family Diabetes: No Age of Onset (years of age): 32 Hx Family Cancer: - Grandmother Lymphoma Physical Exam - Physical Exam General Appearance: Alert, Comfortable, No apparent distress Eye Exam: bilateral normal Ears, Nose, Throat: pharyngeal erythema, other - Pharynx appears slightly erythematous with scattered white exudates without tonsillar swelling Neck: non-tender, full range of motion, supple, normal inspection Respiratory: chest non-tender, lungs clear, normal breath sounds, no respiratory distress, no accessory muscle use Cardiovascular/Chest: normal peripheral pulses, regular rate, rhythm, no edema, no gallop, no JVD, no murmur Peripheral Pulses: radial,right: 2+, radial,left: 2+ Gastrointestinal/Abdominal: soft, tenderness - Suspicious exam, patient jumping and writhing and screaming in pain prior to even being touched, reports severe sharp pains not consistent with her level of discomfort prior to the abdominal exam Back Exam: normal inspection, no CVA tenderness, no vertebral tenderness Extremity: normal range of motion, non-tender, normal inspection, no pedal edema, no calf tenderness, normal capillary refill Neurologic: speech therapy director II-XII nml as tested, no motor/sensory deficits, alert, normal mood/affect, oriented x 3 Skin Exam: normal color, warm/dry Progress - Progress Progress: 02/19/20 17:26 Abdominal pain, nausea, vomiting -Consider gastroparesis, drug-seeking behavior, pancreatitis, COVID-19, UTI, gastritis, GERD, gastroenteritis, iatrogenic, small bowel obstruction, ileus, constipation, gallstones, other -Patient is stable, in no acute distress, vitals within normal limits -We will obtain full abdominal work-up, strep test, COVID test, UA -Place PIV, 1 L normal saline bolus, Phenergan 12.5 mg IV -Patient is asking immediately upon ED arrival for IV pain medications. I spoke with her at length that I am concerned regarding her chronic narcotic usage and that she is likely developing a dependence/tolerance to narcotic medications which I feel is largely contributing to her repeated ED visits with abdominal pain and similar symptoms. I also further cautioned that the pain medications are exacerbating her gastroparesis symptoms. Therefore I would like to try to avoid administering these medications which may worsen her nausea and vomiting. I explained this to the patient but she states she does not care and she just wants the pain medications. 02/19/20 20:50 -Patient was reexamined several times during her ED visit and remained stable. She continued to complain about pain and I did give her fentanyl 50 mcg IV which did control her pain. However, she did continue to ask for more IV pain medications during her ED stay including a dose of Stadol. However, as her pain was well controlled no further pain medications were given. She did have some slightly elevated pancreatic enzyme levels on her labs as well as a lactic acid level of 2.3. Her serum glucose level was 313, but her bicarb level was 25 and she did not have an anion gap. Thus DKA was essentially excluded. The remainder of her labs were largely unremarkable from chronic. CT of the abdomen and pelvis was obtained to further evaluate her abdominal pain and vomiting especially in the setting of slightly elevated pancreatic enzymes. Before the CT scan resulted the patient became impatient and decided to sign out AMA from the ED. I did urge her to stay and advised she would likely need admission to the hospital. However she refused and stated she wanted to go home. Her CT scan resulted shortly after she left which revealed no acute intra-abdominal part acute processes. Nicolas Gross MD Billing #[id number] 02/19/20 17:15 EKG STAT 02/19/20 17:52 STREP A SCREEN CULTURE Stat 02/19/20 18:25 Hold Metformin x 48Hrs [id number] Laboratory Results - last 24 hr 02/19/20 02/19/20 02/19/20 17:18 17:32 17:32 WBC 6.2 RBC 4.11 L Hgb 11.0 L Hct 33.3 L MCV 81.0 MCH 26.7 L MCHC 32.9 L RDW 14.6 H Plt Count 328 MPV 8.1 Absolute Neuts (auto) 3.90 Absolute Lymphs (auto) 1.70 Absolute Monos (auto) 0.40 Absolute Eos (auto) 0.20 Absolute Basos (auto) 0.00 Neutrophils % 63.7 Lymphocytes % 26.9 Monocytes % 5.8 Eosinophils % 3.1 Basophils % 0.5 Sodium 136 Potassium 4.1 Chloride 103 Carbon Dioxide 25 Anion Gap 12.1 BUN 12 Creatinine 0.63 BUN/Creatinine Ratio 19.0 POC Glucose 312 H D Random Glucose 330 H Serum Osmolality 284.6 Lactic Acid Calcium 9.0 Total Bilirubin 0.5 Direct Bilirubin < 0.1 Indirect Bilirubin 0.4 AST 24 ALT 28 Alkaline Phosphatase 123 H Troponin I Serum Total Protein 6.9 Albumin 3.9 Amylase 112 H Lipase 110 H Urine Color Urine Appearance Urine pH Ur Specific [place] Urine Protein Urine Glucose (UA) Urine Ketones Urine Blood Urine Nitrite Urine Bilirubin Urine Urobilinogen Ur Leukocyte Esterase Urine RBC Urine WBC Ur Epithelial Cells Urine Bacteria Urine HCG, Qual Group A Strep Rapid 02/19/20 02/19/20 02/19/20 17:32 17:32 17:40 WBC RBC Hgb Hct MCV MCH MCHC RDW Plt Count MPV Absolute Neuts (auto) Absolute Lymphs (auto) Absolute Monos (auto) Absolute Eos (auto) Absolute Basos (auto) Neutrophils % Lymphocytes % Monocytes % Eosinophils % Basophils % Sodium Potassium Chloride Carbon Dioxide Anion Gap BUN Creatinine BUN/Creatinine Ratio POC Glucose Random Glucose Serum Osmolality Lactic Acid 2.3 H Calcium Total Bilirubin Direct Bilirubin Indirect Bilirubin AST ALT Alkaline Phosphatase Troponin I < 0.02 Serum Total Protein Albumin Amylase Lipase Urine Color Urine Appearance Urine pH Ur Specific [place] Urine Protein Urine Glucose (UA) Urine Ketones Urine Blood Urine Nitrite Urine Bilirubin Urine Urobilinogen Ur Leukocyte Esterase Urine RBC Urine WBC Ur Epithelial Cells Urine Bacteria Urine HCG, Qual Negative Group A Strep Rapid 07/17/20 07/17/20 17:52 17:52 WBC RBC Hgb Hct MCV MCH MCHC RDW Plt Count MPV Absolute Neuts (auto) Absolute Lymphs (auto) Absolute Monos (auto) Absolute Eos (auto) Absolute Basos (auto) Neutrophils % Lymphocytes % Monocytes % Eosinophils % Basophils % Sodium Potassium Chloride Carbon Dioxide Anion Gap BUN Creatinine BUN/Creatinine Ratio POC Glucose Random Glucose Serum Osmolality Lactic Acid Calcium Total Bilirubin Direct Bilirubin Indirect Bilirubin AST ALT Alkaline Phosphatase Troponin I Serum Total Protein Albumin Amylase Lipase Urine Color Yellow Urine Appearance Clear Urine pH 6.5 Ur Specific [place] 1.015 Urine Protein Negative Urine Glucose (UA) 500 H Urine Ketones Negative Urine Blood Trace-lysed H Urine Nitrite Negative Urine Bilirubin Negative Urine Urobilinogen 0.2 Ur Leukocyte Esterase Negative Urine RBC 0-1 Urine WBC 0 Ur Epithelial Cells 1-3 Urine Bacteria 0 Urine HCG, Qual Group A Strep Rapid Negative - EKG/XRAY/CT EKG: Sinus - Normal sinus rhythm, heart rate 80, no ST elevations noted, Q waves noted in anteroseptal leads likely indicative of prior PR, axis normal, intervals normal, compared to 02/08/2020 EKG sinus tachycardia is now resolved, otherwise appears unchanged Departure - Departure Clinical Impression: Hyperglycemia without ketosis, Volume depletion, gastrointestinal loss Abdominal pain Qualifiers: Abdominal location: generalized Qualified Code(s): R10.84 - Generalized abdominal pain Time of Disposition: 20:15 Disposition: Left Against Medical Advice Condition: Fair Departure Forms: ED Discharge - Pt. Copy, Patient Portal Self Enrollment Diet: diabetic diet Activity: increase activity as tolerated Referrals: JUSTINO MARQUEZ IV, [employer] [Primary Care Provider] - 1-2 Weeks Home Medications: Ambulatory Orders Mometasone Furoate [Elocon] 0.1 % TOP DAILY PRN 11/07/17 Epinephrine [Epipen 2-Mikael] 0.3 mg IJ ONCE PRN #1 pack 03/26/18 Buspirone HCl 30 mg PO BID 10/23/18 Diazepam 5 mg PO TID 02/21/19 Gabapentin 300 mg PO TID 11/11/19 Hydrocodone-Acetaminophen [[place] 7.5-325 mg] 1 tab PO TID 11/11/19 Vilazodone HCl [Viibryd] 40 mg PO DAILY 11/11/19 tiZANidine [Zanaflex] 12 mg PO Q8H PRN 11/11/19 Ondansetron Odt [Zofran Odt] 8 mg PO Q8H PRN #12 tab 12/25/19 Albuterol Sulfate [Proair Hfa] 2 puff INH Q6H PRN 01/01/20 Azelastine HCl [Azelastine Hydrochloride] 0.1 % INH PRN PRN 01/01/20 Esomeprazole Magnesium [Nexium] 40 mg PO PRN 01/01/20 Glucagon [Baqsimi One Pack] 3 mg NA PRN 01/01/20 Hydroxyzine HCl [Hydroxyzine Hydrochloride] 50 mg PO QID 01/01/20 Insulin Glargine [Lantus Solostar] 10 unit SC BEDTIME 01/01/20 Insulin Glargine [Lantus Solostar] 25 unit SC DAILY 01/01/20 Mometasone Furoate 0.1 % TOP PRN 01/01/20 Naloxone HCl [Narcan] 4 mg NA PRN 01/01/20 Promethazine Tab [Phenergan Tablet] 25 mg PO .Q4H PRN 01/01/20 Salmeterol Xinafoate [Serevent Diskus] 50 mcg IN PRN 01/01/20 Triamcinolone 0.5% Cream [Kenalog 0.5% Cream] 1 applic TOP PRN 01/01/20
[2020-02-19 17:27] VITALS: TEMP 97.9
[2020-02-19] MEDS: SODIUM CHLORIDE 0.9% 1000ML 1,000 ML IVS ONE ×2 (18:02→18:57)
[2020-02-19] MEDS: PROMETHAZINE HCL INJ 12.5 MG in SODIUM CHLORIDE 0.9% 50ML 50 ML IVPB ONE (18:03)
[2020-02-19] MEDS: SODIUM CHLORIDE 0.9% (FLUSH) 10 ML SYG IV PRN (18:03)
[2020-02-19] MEDS: ONDANSETRON INJ 4 MG/2 ML VIAL IV ONE (18:04)
[2020-02-19] MEDS: fentaNYL CITRATE INJ 50 MCG/ML AMP IV ONE (18:40)
[2020-02-19 19:01] VITALS: O2SAT 96
[2020-02-19 20:06] VITALS: BP 103/79
--- NOTE | 2020-02-19 20:34 | CT ---
PROCEDURE: CT ABDOMEN PELVIS WITH IV CONTRAST CLINICAL HISTORY: acute abdominal pain, mild pancreatic enzyme elev TECHNIQUE: Contiguous axial images obtained through the abdomen and pelvis following the uneventful administration of IV contrast. Coronal and sagittal reformatted images were provided. This exam was performed according to our departmental dose-optimization program, which includes automated exposure control, adjustment of the mA and/or kV according to patient size and/or use of iterative reconstruction technique. COMPARISON: 01/22/2020 FINDINGS: Lung bases: Patchy dependent bibasilar groundglass opacities, right greater than left. Coronary artery calcification. Liver: The liver is enlarged. Gallbladder and biliary system: Prior cholecystectomy. Pancreas: Unremarkable Spleen: Unremarkable Adrenals: Unremarkable Kidneys: Normal renal cortical enhancement. No calculi. No hydronephrosis. Bowel: Moderate stool throughout the majority of the large bowel. No obstruction. No appreciable mucosal thickening. Appendix: Prior appendectomy. Urinary bladder: Unremarkable Reproductive: There has been a hysterectomy. No adnexal cysts or masses are identified. Lymph nodes: No pathologically enlarged lymph nodes. Peritoneum: No focal fluid collection. No free air. Vessels: Mild atherosclerotic disease. No abdominal aortic aneurysm. Abdominal wall: Unremarkable Bones: Mild multilevel spondylosis. No acute fracture. IMPRESSION: 1. No acute inflammatory process identified within the abdomen and pelvis. 2. Other findings as above. Electronically signed by: Shikha Valadez MD 02/19/2020 8:32 PM CDT
== END 2020-02-19 20:19 | disposition left against medical advice (07) ==
LOC: ER 16:59
DX: E10.65 Type 1 diabetes mellitus with hyperglycemia (principal); E86.0 Dehydration; R19.7 Diarrhea, unspecified; R10.84 Generalized abdominal pain; F17.200 Nicotine dependence, unspecified, uncomplicated; Z53.29 Procedure and treatment not carried out because of patient's decision for other reasons; Z79.4 Long term (current) use of insulin; Z79.899 Other long term (current) drug therapy
CPT/HCPCS: 36415; 36416; 74177; 80048; 80076; 81001; 81025; 82150; 82948; 83605; 83690; 84484; 85025; 87070; 87635; 87880; 93005; A4216; J2550; J3010; J7030

== ENCOUNTER 2020-02-20 12:13 | Emergency (ER) | payer MEDICARE, MEDICAID ==
--- NOTE | 2020-02-20 12:48 | ED.PDOC ---
History of Present Illness - General Chief Complaint: GI Problem Stated Complaint: Nausea/vomiting, abdominal pain Time Seen by Provider: 02/20/20 12:17 Information Source: patient, RN notes reviewed, Vital Signs reviewed, old records Exam Limitations: no limitations - History of Present Illness Initial Comments: This is a 44-year-old female with history of insulin-dependent diabetes, chronic abdominal pain, diabetic gastroparesis presenting to the emergency department with right lower quadrant abdominal pain, nausea/vomiting. She was seen in the emergency department last night, had labs and CT performed, but left AGAINST MEDICAL ADVICE prior to CT being resulted. She denies any fever. She states she has been unable to take her Klonopin, [place], or Phenergan at home. She is using Zofran without improvement. She denies any fever. She had a COVID swab performed last night that was negative. She states her blood sugar was high this morning, she took 20 units of insulin around 10 AM Review of Systems - Review of Systems Constitutional: Denies: chills, fever EENTM: Denies: nose congestion, throat pain Respiratory: Denies: cough, orthopnea, short of breath, wheezing Cardiology: Denies: chest pain, edema Gastrointestinal/Abdominal: States: abdominal pain, nausea, vomiting. Denies: constipation, diarrhea Genitourinary: Denies: dysuria, hematuria Musculoskeletal: Denies: joint pain, muscle stiffness Skin: Denies: change in color, rash Neurological: Denies: headache, paresthesia, tingling, weakness Endocrine: States: no symptoms reported Hematologic/Lymphatic: States: no symptoms reported Past Medical History (General) - Patient Medical History Hx Seizures: Yes Hx Stroke: No Hx Dementia: No Hx Asthma: Yes Hx of COPD: No Hx Cardiac Disorders: No Hx Congestive Heart Failure: No Hx Pacemaker: No Hx Hypertension: Yes Hx Thyroid Disease: No Hx Diabetes: Yes - FSBS 171 Hx Gastroesophageal Reflux: Yes Hx Renal Disease: No Hx Cancer: No Hx of HIV: No Hx Hepatitis C: No Hx MRSA: Yes - 2 yrs ago. MRSA Source:: Blood - Vaccination History Hx Tetanus, Diphtheria Vaccination: No Hx Influenza Vaccination: Yes Hx Pneumococcal Vaccination: Yes - Social History Hx Tobacco Use: Yes Hx Chewing Tobacco Use: No Hx Alcohol Use: No Hx Substance Use: No Hx Substance Use Treatment: No Hx Depression: Yes Hx Physical Abuse: No Hx Emotional Abuse: No Hx Suspected Abuse: No - Female History Hx Last Menstrual Period: 11/05/11 Patient : Yes Family Medical History - Family History Mother Family History: No Known Name: April Age (years): 70 Living Status: Still Living Hx Family Asthma: No Hx Family Congestive Heart Failure: No Hx Family Hypertension: No Hx Family Stroke: No Hx Cardiac Disease: No Hx Family Diabetes: No Hx Family Cancer: Yes - skin cancer Hx Family;Other: thyroid problems and seizures Father Family History: No Known Name: Marlon Age (years): 68 Living Status: Still Living Hx Family Asthma: - Sister Hx Family Congestive Heart Failure: No Hx Family Hypertension: Yes Hx Family Stroke: No Hx Cardiac Disease: Yes Hx Family Diabetes: No Age of Onset (years of age): 32 Hx Family Cancer: - Grandmother Lymphoma Physical Exam - Physical Exam General Appearance: Alert, Well Developed, Well Groomed, Well Nourished, Other - Appears older than stated age Eyes, Ears, Nose, Throat Exam: PERRL/EOMI, normal ENT inspection, pharynx normal Neck: non-tender, full range of motion Respiratory: chest non-tender, lungs clear, normal breath sounds, no respiratory distress Cardiovascular/Chest: normal peripheral pulses, regular rate, rhythm, no edema, no gallop, no JVD Peripheral Pulses: No deficit Gastrointestinal/Abdominal: normal bowel sounds, soft, tenderness - Exam was difficult to localize. She appeared to wince and withdraw anytime I touched anywhere on her abdomen, but her pain seem to be mostly localized to the right lower quadrant, suprapubic area. No clear reproducible rebound or guarding Back Exam: no CVA tenderness, no vertebral tenderness Extremity: normal range of motion, normal inspection Neurologic: no motor/sensory deficits, alert, oriented x 3 Skin Exam: normal color, warm/dry Progress - Progress Progress: 02/20/20 12:18 Old records reviewed. This is patient's th ER visit in 2019. Multiple ER visits in the past for abdominal pain, nausea/vomiting. Strong suspicion for diabetic gastroparesis. Multiple visits with concern for drug-seeking behavior. Patient was reportedly requesting IV opiates for her chronic pain last night. She was given a single dose of fentanyl. Her lipase was slightly elevated at 110 last night, but not within pancreatitis range. CT was performed showing no peripancreatic inflammation. 02/20/20 13:35 Rechecked. Patient reports ongoing right lower quadrant pain and persistent nausea. Patient has made multiple requests for Stadol if I was not going to give morphine or any other opiates.. I explained that Stadol is not an appropriate medication considering the chronicity of her pain. I offered Haldol, patient refused stating "it never does anything for me" 02/20/20 14:27 Rechecked. Blood sugar greater than 500, normal gap, normal CO2. Not consistent with DKA. Will give IV fluids and IV insulin and recheck blood sugar 1 hour after insulin given. Again, patient requesting Stadol, again I explained that Stadol is not a medication I feel comfortable administering and that there is no evidence of acute process at this time indicating need for opiates. 02/20/20 15:20 Rechecked. Blood sugar down to 290. Acceptable for discharge home. No vomiting in the emergency department, patient was able to take her home Klonopin without any difficulty. No vomiting noted in the emergency department. She reports ongoing pain. I explained that she will need to follow-up with her primary doctor or with pain management for her chronic abdominal pain. Strict warnings given to return the emergency room for fever, intractable vomiting, vomiting blood, blood in stool, or new concerns peer DDX: Drug-seeking behavior, Gastroparesis, low suspicion for obstruction, dehydration, DKA, pancreatitis MDM: This patient is well-known to the emergency room for chronic abdominal pain, vomiting, history of gastroparesis and drug-seeking behavior. She was seen in the emergency room last night. Her lipase at that time was 110, CT showed no peripancreatic inflammation. She made multiple requests in the emergency department for opiates, including Stadol, which I explained are not indicated given the chronicity of her pain. Lipase downtrending to 78, no evidence of pancreatitis at this time. She had no episodes of vomiting in the emergency department after IV Phenergan and Bentyl. No indication for admission at this time. Recommend follow with PCP in 3 to 5 days for recheck. Matthew Garcia DO [facility] #[id number] 02/20/20 15:43 - Results/Orders Results/Orders: CT report from last night:. PROCEDURE: CT ABDOMEN PELVIS WITH IV CONTRAST CLINICAL HISTORY: acute abdominal pain, mild pancreatic enzyme elev TECHNIQUE: Contiguous axial images obtained through the abdomen and pelvis following the uneventful administration of IV contrast. Coronal and sagittal reformatted images were provided. This exam was performed according to our departmental dose-optimization program, which includes automated exposure control, adjustment of the mA and/or kV according to patient size and/or use of iterative reconstruction technique. COMPARISON: 01/22/2020 FINDINGS: Lung bases: Patchy dependent bibasilar groundglass opacities, right greater than left. Coronary artery calcification. Liver: The liver is enlarged. Gallbladder and biliary system: Prior cholecy stectomy. Pancreas: Unremarkable Spleen: Unremarkable Adrenals: Unremarkable Kidneys: Normal renal cortical enhancement. No calculi. No hydronephrosis. Bowel: Moderate stool throughout the majority of the large bowel. No obstruction. No appreciable mucosal thickening. Appendix: Prior appendectomy. Urinary bladder: Unremarkable Reproductive: There has been a hysterectomy. No adnexal cysts or masses are identified. Lymph nodes: No pathologically enlarged lymph nodes. Peritoneum: No focal fluid collection. No free air. Vessels: Mild atherosclerotic disease. No abdominal aortic aneurysm. Abdominal wall: Unremarkable Bones: Mild multilevel spondylosis. No acute fracture. IMPRESSION: 1. No acute inflammatory process identified within the abdomen and pelvis. 2. Other findings as above. Electronically signed by: Shikha Valadez MD 02/19/2020 8:32 PM CDT 02/20/20 12:35 Miscellaneous Nursing Order .ONCE Laboratory Results - last 24 hr 02/20/20 02/20/20 02/20/20 12:58 12:58 15:06 WBC 5.0 RBC 4.08 L Hgb 10.8 L Hct 33.7 L MCV 82.6 MCH 26.4 L MCHC 31.9 L RDW 14.7 H Plt Count 287 MPV 8.1 Absolute Neuts (auto) 2.90 Absolute Lymphs (auto) 1.50 Absolute Monos (auto) 0.30 Absolute Eos (auto) 0.20 Absolute Basos (auto) 0.00 Neutrophils % 58.2 Lymphocytes % 30.4 Monocytes % 6.6 Eosinophils % 4.2 Basophils % 0.6 Sodium 134 L Potassium 5.1 H D Chloride 102 Carbon Dioxide 24 Anion Gap 13.1 BUN 11 Creatinine 0.61 BUN/Creatinine Ratio 18.0 POC Glucose 293 H Random Glucose 520 H* Serum Osmolality 291.4 Calcium 9.0 Total Bilirubin 0.6 AST 24 ALT 27 Alkaline Phosphatase 116 Serum Total Protein 6.9 Albumin 3.6 Globulin 3.3 Albumin/Globulin Ratio 1.1 Lipase 78 H D Departure - Departure Clinical Impression: Diabetic gastroparesis, Uncontrolled insulin dependent diabetes mellitus, Chronic abdominal pain Nausea & vomiting Qualifiers: Vomiting type: unspecified Vomiting Intractability: non-intractable Qualified Code(s): R11.2 - Nausea with vomiting, unspecified Disposition: Discharge to Home or Self Care Condition: Fair Departure Forms: ED Discharge - Pt. Copy, Patient Portal Self Enrollment Instructions: Gastroparesis (Delayed Gastric Emptying) (DC) Referrals: JUSTINO MARQUEZ IV, TRUCK H[employer]PER [Primary Care Provider] - 1-5 Days Prescriptions: Promethazine Supp [Phenergan Suppository] 12.5 mg [place] Q6H PRN #15 sup PRN Reason: Nausea Home Medications: Ambulatory Orders Mometasone Furoate [Elocon] 0.1 % TOP DAILY PRN 11/07/17 Epinephrine [Epipen 2-Mikael] 0.3 mg IJ ONCE PRN #1 pack 03/26/18 Buspirone HCl 30 mg PO BID 10/23/18 Diazepam 5 mg PO TID 02/21/19 Gabapentin 300 mg PO TID 11/11/19 Hydrocodone-Acetaminophen [[place] 7.5-325 mg] 1 tab PO TID 11/11/19 Vilazodone HCl [Viibryd] 40 mg PO DAILY 11/11/19 tiZANidine [Zanaflex] 12 mg PO Q8H PRN 11/11/19 Ondansetron Odt [Zofran Odt] 8 mg PO Q8H PRN #12 tab 12/25/19 Albuterol Sulfate [Proair Hfa] 2 puff INH Q6H PRN 01/01/20 Azelastine HCl [Azelastine Hydrochloride] 0.1 % INH PRN PRN 01/01/20 Esomeprazole Magnesium [Nexium] 40 mg PO PRN 01/01/20 Glucagon [Baqsimi One Pack] 3 mg NA PRN 01/01/20 Hydroxyzine HCl [Hydroxyzine Hydrochloride] 50 mg PO QID 01/01/20 Insulin Glargine [Lantus Solostar] 10 unit SC BEDTIME 01/01/20 Insulin Glargine [Lantus Solostar] 25 unit SC DAILY 01/01/20 Mometasone Furoate 0.1 % TOP PRN 01/01/20 Naloxone HCl [Narcan] 4 mg NA PRN 01/01/20 Promethazine Tab [Phenergan Tablet] 25 mg PO .Q4H PRN 01/01/20 Salmeterol Xinafoate [Serevent Diskus] 50 mcg IN PRN 01/01/20 Triamcinolone 0.5% Cream [Kenalog 0.5% Cream] 1 applic TOP PRN 01/01/20 Promethazine Supp [Phenergan Suppository] 12.5 mg [place] Q6H PRN #15 sup 02/20/20
[2020-02-20] MEDS: PROMETHAZINE HCL INJ 12.5 MG in SODIUM CHLORIDE 0.9% 50ML 50 ML IVPB ONE (12:58)
[2020-02-20] MEDS: DICYCLOMINE HCL INJ 20 MG/2 ML AMP IM ONE (12:59)
[2020-02-20] MEDS: SODIUM CHLORIDE 0.9% 1000ML 1,000 ML IVS ONE (12:59)
[2020-02-20] MEDS: INSULIN, REG.(HUMAN) 100 U/ML VIAL IV ONE (14:01)
[2020-02-20] MEDS ORDERED: HEPARIN SODIUM 100 U/ML 5 ML SYG IV ONE (15:18)
[2020-02-20 15:54] VITALS: BP 110/66; TEMP 97.4; O2SAT 100
== END 2020-02-20 15:40 | disposition home or self-care (01) ==
LOC: ER 12:13
DX: E10.43 Type 1 diabetes mellitus with diabetic autonomic (poly)neuropathy (principal); E10.65 Type 1 diabetes mellitus with hyperglycemia; K31.84 Gastroparesis; R10.31 Right lower quadrant pain; R11.2 Nausea with vomiting, unspecified; F17.200 Nicotine dependence, unspecified, uncomplicated; Z79.4 Long term (current) use of insulin
CPT/HCPCS: 36415; 36416; 80053; 82948; 83690; 85025; A4216; J0500; J1642; J2550; J7030

== ENCOUNTER 2020-02-21 18:40 | Emergency (ER) | payer MEDICARE, MEDICAID ==
[2020-02-21] MEDS ORDERED: SODIUM CHLORIDE 0.9% (FLUSH) 10 ML SYG IV PRN (19:38)
[2020-02-21] MEDS ORDERED: SODIUM CHLORIDE 0.9% 1000ML 1,000 ML IVS ONE (19:38)
[2020-02-21] MEDS ORDERED: PROMETHAZINE HCL INJ 12.5 MG in SODIUM CHLORIDE 0.9% 50ML 50 ML IVPB ONE (19:55)
--- NOTE | 2020-02-21 19:55 | ED.PDOC ---
History of Present Illness - General Chief Complaint: GI Problem Stated Complaint: N/V, abd pain Time Seen by Provider: 02/21/20 19:37 Source: patient - History of Present Illness Initial Comments: 44-year-old female with PMH of type 1 diabetes, gastroparesis, drug-seeking behavior who presents to the ED with CC of abdominal pain and vomiting. This is the patient's third day in a row visiting this ED for the same symptoms. Her work-up over the past 2 days is included lab work and CT imaging of the abdomen and pelvis, which has been largely unremarkable for any acute processes. She did have some hyperglycemia yesterday which improved with ED treatment and the patient was sent home. She states that she was doing well this morning and went to nondenominational but symptoms worsened in the afternoon. She states that she has vomited 8 times today. Reports worsening again of right upper quadrant pain, rates as sharp, constant, 15/10 severity, radiates around to the back and to the rest of the abdomen. She has tried taking her home pain medication along with Klonopin, Zofran, and Phenergan reports no relief. She states that she threw up shortly after taking all of her medications. Reports her blood sugars have also continue to be elevated. She is asking for IV pain medications upon ED arrival. Additionally reports a couple episodes of watery diarrhea. Denies any fevers, chills, sore throat, cough, chest pain, dyspnea, urinary symptoms. Previous abdominal surgeries include cholecystectomy and appendectomy. Zander Comer is her PCP, scheduled to see him again this week. She is also scheduled to see GI specialist next month for gastric pacemaker. Patient is well-known to this ED, seen greater than 20 times this year. She has a well-documented history of drug-seeking behavior. Allergies/Adverse Reactions: Allergies Fish Allergy Allergy (Verified 01/14/20 17:07) Ketorolac Tromethamine [From Toradol] Adverse Reaction (Verified 02/17/20 14:43) Metoclopramide [From Reglan] Adverse Reaction (Verified 01/14/20 17:42) peanut Allergy (Severe, Uncoded 11/30/19 19:02) Home Medications: Ambulatory Orders Mometasone Furoate [Elocon] 0.1 % TOP DAILY PRN 11/07/17 Epinephrine [Epipen 2-Mikael] 0.3 mg IJ ONCE PRN #1 pack 08/22/18 Buspirone HCl 30 mg PO BID 10/23/18 Diazepam 5 mg PO TID 02/21/19 Gabapentin 300 mg PO TID 11/11/19 Hydrocodone-Acetaminophen [[place] 7.5-325 mg] 1 tab PO TID 11/11/19 Vilazodone HCl [Viibryd] 40 mg PO DAILY 11/11/19 tiZANidine [Zanaflex] 12 mg PO Q8H PRN 11/11/19 Ondansetron Odt [Zofran Odt] 8 mg PO Q8H PRN #12 tab 12/25/19 Albuterol Sulfate [Proair Hfa] 2 puff INH Q6H PRN 01/01/20 Azelastine HCl [Azelastine Hydrochloride] 0.1 % INH PRN PRN 01/01/20 Esomeprazole Magnesium [Nexium] 40 mg PO PRN 01/01/20 Glucagon [Baqsimi One Pack] 3 mg NA PRN 01/01/20 Hydroxyzine HCl [Hydroxyzine Hydrochloride] 50 mg PO QID 01/01/20 Insulin Glargine [Lantus Solostar] 10 unit SC BEDTIME 01/01/20 Insulin Glargine [Lantus Solostar] 25 unit SC DAILY 01/01/20 Mometasone Furoate 0.1 % TOP PRN 01/01/20 Naloxone HCl [Narcan] 4 mg NA PRN 01/01/20 Promethazine Tab [Phenergan Tablet] 25 mg PO .Q4H PRN 01/01/20 Salmeterol Xinafoate [Serevent Diskus] 50 mcg IN PRN 01/01/20 Triamcinolone 0.5% Cream [Kenalog 0.5% Cream] 1 applic TOP PRN 01/01/20 Promethazine Supp [Phenergan Suppository] 12.5 mg [place] Q6H PRN #15 sup 02/20/20 Review of Systems - Review of Systems Review of Systems: 02/21/20 19:55 as per HPI All other Systems: Reviewed and Negative Past Medical History (General) - Patient Medical History Hx Seizures: Yes Hx Stroke: No Hx Dementia: No Hx Asthma: Yes Hx of COPD: No Hx Cardiac Disorders: No Hx Congestive Heart Failure: No Hx Pacemaker: No Hx Hypertension: Yes Hx Thyroid Disease: No Hx Diabetes: Yes - FSBS 171 Hx Gastroesophageal Reflux: Yes Hx Renal Disease: No Hx Cancer: No Hx of HIV: No Hx Hepatitis C: No Hx MRSA: Yes - 2 yrs ago. MRSA Source:: Blood Surgical History: appendectomy, cholecystectomy, Hysterectomy - Vaccination History Hx Tetanus, Diphtheria Vaccination: No Hx Influenza Vaccination: Yes Hx Pneumococcal Vaccination: Yes - Social History Hx Tobacco Use: Yes Hx Chewing Tobacco Use: No Hx Alcohol Use: No Hx Substance Use: No Hx Substance Use Treatment: No Hx Depression: Yes Hx Physical Abuse: No Hx Emotional Abuse: No Hx Suspected Abuse: No - Female History Hx Last Menstrual Period: 11/05/11 Patient : Yes Family Medical History - Family History Mother Family History: No Known Name: April Age (years): 70 Living Status: Still Living Hx Family Asthma: No Hx Family Congestive Heart Failure: No Hx Family Hypertension: No Hx Family Stroke: No Hx Cardiac Disease: No Hx Family Diabetes: No Hx Family Cancer: Yes - skin cancer Hx Family;Other: thyroid problems and seizures Father Family History: No Known Name: Marlon Age (years): 68 Living Status: Still Living Hx Family Asthma: - Sister Hx Family Congestive Heart Failure: No Hx Family Hypertension: Yes Hx Family Stroke: No Hx Cardiac Disease: Yes Hx Family Diabetes: No Age of Onset (years of age): 32 Hx Family Cancer: - Grandmother Lymphoma Physical Exam - Physical Exam General Appearance: Alert, Comfortable, No apparent distress Eye Exam: bilateral normal Ears, Nose, Throat: hearing grossly normal, normal ENT inspection, normal pharynx Neck: non-tender, full range of motion, supple, normal inspection Respiratory: lungs clear, normal breath sounds, no respiratory distress, no accessory muscle use Cardiovascular/Chest: normal peripheral pulses, regular rate, rhythm, no edema, no gallop, no JVD, no murmur Peripheral Pulses: radial,right: 2+, radial,left: 2+ Gastrointestinal/Abdominal: soft, tenderness - Jumping around in bed even before abdomen palpated, very suspicious exam. Reports marketed tenderness to palpation to the right upper quadrant region. Also jumping with palpation of other regions of the abdomen and bilateral flanks, repeated palpation of the abdomen in different areas results in inconsistent reactions. Abdomen is soft and nondistended. 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 Also large concern for drug- seeking behavior as she is again asking for IV pain medications upon arrival. Consider also gastroenteritis, pancreatitis, UTI, small bowel obstruction, ileus, kidney stone, other. -Patient is stable, no acute distress but reporting "15/10" severity pain. Again abdominal exam is inconsistent and suspicious. -Obtain blood work, UA, abdominal x-ray -We will administer 1 L normal saline bolus and Phenergan 12.5 mg IV. Advised the patient that I am highly concerned that all of her symptoms are secondary to gastroparesis and also IV narcotic addiction. Therefore I would like to try to avoid narcotic IV pain medications at all cost if possible, which I feel are exacerbating her current condition. 02/21/20 22:03 -Patient's Mediport was not working. There are plans apparently to readjust the Mediport later this week. The ED nurses, despite several tries, were unable to place a peripheral IV. -Abdominal x-ray reveals nonspecific nonobstructive bowel gas pattern per my read -Patient remained stable. Lab work now resulted-significant for serum glucose 369, bicarb 25, anion gap 9. This is consistent with hyperglycemia without DKA. Serum amylase and lipase levels are within normal limits. Serum WBC is normal. UA reveals large glucose but otherwise normal. -Suspect acute symptoms due to chronic abdominal pain and gastroparesis. Patient needs to continue to follow-up with her primary care physician and GI doctors for further outpatient work-up. Will discharge to home in good condition, return warnings discussed. Nicolas Gross MD Billing #[id number] 02/21/20 19:38 IV Care:Saline Lock per Protoc QSHIFT Sodium Chloride 0.9% (Flush) [Saline Flush Syringe] 10 ml IV PRN PRN Laboratory Results - last 24 hr 02/21/20 02/21/20 02/21/20 19:36 19:42 20:20 WBC RBC Hgb Hct MCV MCH MCHC RDW Plt Count MPV Absolute Neuts (auto) Absolute Lymphs (auto) Absolute Monos (auto) Absolute Eos (auto) Absolute Basos (auto) Neutrophils % Lymphocytes % Monocytes % Eosinophils % Basophils % Sodium Potassium Chloride Carbon Dioxide Anion Gap BUN Creatinine BUN/Creatinine Ratio POC Glucose > 400 H* D Random Glucose Cancelled Serum Osmolality Calcium Total Bilirubin Direct Bilirubin Indirect Bilirubin AST ALT Alkaline Phosphatase Serum Total Protein Albumin Amylase Lipase Urine Color Yellow Urine Appearance Clear Urine pH 7.0 Ur Specific Moore 1.015 Urine Protein Negative Urine Glucose (UA) >=1000 H Urine Ketones Negative Urine Blood Small H Urine Nitrite Negative Urine Bilirubin Negative Urine Urobilinogen 0.2 Ur Leukocyte Esterase Negative Urine RBC 1-3 Urine WBC 0 Ur Epithelial Cells 10-20 Urine Bacteria 0 02/21/20 02/21/20 21:10 21:10 WBC 6.7 RBC 4.45 Hgb 11.8 L Hct 35.9 L MCV 80.8 L MCH 26.5 L MCHC 32.8 L RDW 14.2 Plt Count 333 MPV 8.0 Absolute Neuts (auto) 3.80 Absolute Lymphs (auto) 2.10 Absolute Monos (auto) 0.40 Absolute Eos (auto) 0.30 Absolute Basos (auto) 0.10 Neutrophils % 56.9 Lymphocytes % 31.3 Monocytes % 6.4 Eosinophils % 4.0 Basophils % 1.4 Sodium 134 L Potassium 4.4 Chloride 99 L Carbon Dioxide 26 Anion Gap 13.4 BUN 14 Creatinine 0.54 L BUN/Creatinine Ratio 25.9 H POC Glucose Random Glucose 369 H Serum Osmolality 283.7 Calcium 9.3 Total Bilirubin 0.3 Direct Bilirubin < 0.1 Indirect Bilirubin 0.2 AST 19 ALT 24 Alkaline Phosphatase 154 H D Serum Total Protein 7.5 Albumin 4.0 Amylase 66 Lipase 38 D Urine Color Urine Appearance Urine pH Ur Specific Moore Urine Protein Urine Glucose (UA) Urine Ketones Urine Blood Urine Nitrite Urine Bilirubin Urine Urobilinogen Ur Leukocyte Esterase Urine RBC Urine WBC Ur Epithelial Cells Urine Bacteria Departure - Departure Clinical Impression: Hyperglycemia, Diabetic gastroparesis associated with type 2 diabetes mellitus Time of Disposition: 22:07 Disposition: Discharge to Home or Self Care Condition: Fair Departure Forms: ED Discharge - Pt. Copy, Patient Portal Self Enrollment Instructions: DI for Abdominal Pain-Adult, Hyperglycemia, Adult (DC) Diet: resume usual diet Activity: increase activity as tolerated Referrals: JUSTINO COMER IV, [employer] [Primary Care Provider] - 1-2 Weeks Home Medications: Ambulatory Orders Mometasone Furoate [Elocon] 0.1 % TOP DAILY PRN 11/07/17 Epinephrine [Epipen 2-Mikael] 0.3 mg IJ ONCE PRN #1 pack 03/26/18 Buspirone HCl 30 mg PO BID 10/23/18 Diazepam 5 mg PO TID 02/21/19 Gabapentin 300 mg PO TID 11/11/19 Hydrocodone-Acetaminophen [[place] 7.5-325 mg] 1 tab PO TID 11/11/19 Vilazodone HCl [Viibryd] 40 mg PO DAILY 11/11/19 tiZANidine [Zanaflex] 12 mg PO Q8H PRN 11/11/19 Ondansetron Odt [Zofran Odt] 8 mg PO Q8H PRN #12 tab 12/25/19 Albuterol Sulfate [Proair Hfa] 2 puff INH Q6H PRN 01/01/20 Azelastine HCl [Azelastine Hydrochloride] 0.1 % INH PRN PRN 01/01/20 Esomeprazole Magnesium [Nexium] 40 mg PO PRN 01/01/20 Glucagon [Baqsimi One Pack] 3 mg NA PRN 01/01/20 Hydroxyzine HCl [Hydroxyzine Hydrochloride] 50 mg PO QID 01/01/20 Insulin Glargine [Lantus Solostar] 10 unit SC BEDTIME 01/01/20 Insulin Glargine [Lantus Solostar] 25 unit SC DAILY 01/01/20 Mometasone Furoate 0.1 % TOP PRN 01/01/20 Naloxone HCl [Narcan] 4 mg NA PRN 01/01/20 Promethazine Tab [Phenergan Tablet] 25 mg PO .Q4H PRN 01/01/20 Salmeterol Xinafoate [Serevent Diskus] 50 mcg IN PRN 01/01/20 Triamcinolone 0.5% Cream [Kenalog 0.5% Cream] 1 applic TOP PRN 01/01/20 Promethazine Supp [Phenergan Suppository] 12.5 mg [place] Q6H PRN #15 sup 02/20/20 Additional Instructions: Remain well-hydrated and advance her diet and activity level gradually as tolerated. Follow-up with your primary care physician is recommended in the next 3 to 5 days for repeat evaluation or sooner as needed. Return to the ED if you develop any new or concerning symptoms. Continue taking your basal and sliding scale insulin as directed as your glucose levels were found to be elevated during this visit.
--- NOTE | 2020-02-21 21:09 | RAD ---
Abdomen single view on 02/21/2020 CLINICAL INDICATION: Nausea and vomiting COMPARISON: 02/08/2020 FINDINGS: Calcifications in the pelvis are consistent with phleboliths. Mild stool is noted throughout the colon without significant constipation. Bowel gas pattern is unremarkable. No other abnormal calcification or mass effect is noted. No bony abnormality is noted. IMPRESSION: Nonspecific abdomen. Electronically signed by: Vidal Wilkinson 02/21/2020 9:08 PM CDT
[2020-02-21 22:14] VITALS: BP 108/72; TEMP 98.2; O2SAT 98
== END 2020-02-21 22:15 | disposition home or self-care (01) ==
LOC: ER 18:40
DX: E11.43 Type 2 diabetes mellitus with diabetic autonomic (poly)neuropathy (principal); E11.65 Type 2 diabetes mellitus with hyperglycemia; K31.84 Gastroparesis; R10.11 Right upper quadrant pain; R11.2 Nausea with vomiting, unspecified; I10 Essential (primary) hypertension; F17.200 Nicotine dependence, unspecified, uncomplicated; Z79.4 Long term (current) use of insulin

== ENCOUNTER 2020-02-22 12:11 | Outpatient (CLI) | payer MEDICARE, MEDICAID ==
[~2020-02-22 12:11] MED LIST changes: -LACTATED RINGERS 1,000 ML ONE; -SODIUM CHL 0.9% 100ML MINI-BAG 100 ML IVPB ONE; +SODIUM CHLORIDE 0.9% (FLUSH) 10 ML SYG IV ONE; -ceFAZolin SODIUM 1 GM VIAL ONE
[2020-02-22] MEDS ORDERED: HEPARIN SODIUM 100 U/ML 5 ML SYG IV ONE (12:30)
[2020-02-22] MEDS ORDERED: SCOPOLAMINE PATCH 1.5MG 1 EA TD ONE (20:19)
== END 2020-02-22 12:30 | disposition home or self-care (01) ==
LOC: INFRM 12:11
PROVIDERS: ATTEND Surgery
DX: R09.89 Other specified symptoms and signs involving the circulatory and respiratory systems (principal)

== ENCOUNTER 2020-02-22 19:37 | Emergency (ER) | payer MEDICARE, MEDICAID ==
[2020-02-22 20:03] VITALS: O2SAT 98
[2020-02-22] MEDS ORDERED: PROMETHAZINE HCL INJ 12.5 MG in SODIUM CHLORIDE 0.9% 50ML 50 ML IVPB ONE (20:08)
[2020-02-22] MEDS ORDERED: SODIUM CHLORIDE 0.9% 1000ML 1,000 ML IVS ONE (20:08)
[2020-02-22] MEDS ORDERED: SCOPOLAMINE PATCH 1.5MG 1 EA TD ONE (20:08)
[2020-02-22] MEDS ORDERED: PANTOPRAZOLE SODIUM IV 40 MG VIAL IV ONE (20:09)
[2020-02-22] MEDS ORDERED: ACETAMINOPHEN IV 1000MG 1,000 MG in PREMIX BOTTLE 1 BOTTLE IVPB ONE (20:11)
[2020-02-22] MEDS ORDERED: INSULIN LISPRO 100 UNITS/ML PEN SUBCU ONE (20:32)
--- NOTE | 2020-02-22 20:57 | RAD ---
EXAM DESCRIPTION: Abdomen Flat Upright CLINICAL HISTORY: 44 years Female, [place] COMPARISON: None. FINDINGS: There is a moderate amount residual stool throughout the colon. There is no evidence of obstruction. There is no evidence of fecal impaction. There is evidence of previous cholecystectomy. No free peritoneal gas is demonstrated. There are no pathologic calcifications. IMPRESSION: 1. Moderate amount of residual stool throughout the colon. Electronically signed by: Aram Avendano MD 02/22/2020 8:55 PM CDT
[2020-02-22] MEDS ORDERED: MAGNESIUM HYDROXIDE 30 ML UD PO ONE (21:13)
[2020-02-22] MEDS ORDERED: KETOROLAC TROMETHAMINE INJ 30 MG/ML VIAL IM ONE (22:14)
[2020-02-22] MEDS ORDERED: SUCRALFATE 1 GM/10 ML 1 GM UD PO ONE (22:14)
--- NOTE | 2020-02-22 22:19 | ED.PDOC ---
History of Present Illness - General Chief Complaint: GI Problem Stated Complaint: nausea vomiting Time Seen by Provider: 02/22/20 19:51 Source: patient Exam Limitations: no limitations - History of Present Illness Initial Comments: The patient is a 44-year-old female presented emergency room secondary to report of persistent abdominal pain that is diffuse as well as persistent nausea and vomiting. The patient is not dehydrated. Initially upon arrival the patient is dry heaving however when she is not being paid attention to she does not dry heave. No fever. No actual vomitus production here. Capillary refill is within normal limits. The patient reports a blood sugar greater than 600 earlier in the day but it is 320 here. She is alert and oriented. No real focal abdominal pain. The patient reports she is getting a stimulator and the coming month or so. The patient has been seen here including today, 4 days in a row. She has had significant work-up on each of the 3 previous days. No evidence of DKA or significant laboratory abnormalities. No evidence of any significant imaging acute abnormalities. The patient does have a history of gastroparesis and cyclical nausea and vomiting. She also has a history of chronic constipation. Patient additionally does have a history of drug-seeking behavior and prescription medication abuse. Patient is not currently intoxicated. Timing/Duration: unsure Severity: moderate Improving Factors: nothing Worsening Factors: eating Associated Symptoms: nausea/vomiting Allergies/Adverse Reactions: Allergies Fish Allergy Allergy (Verified 01/14/20 17:07) Ketorolac Tromethamine [From Toradol] Adverse Reaction (Verified 02/17/20 14:43) Metoclopramide [From Reglan] Adverse Reaction (Verified 01/14/20 17:42) peanut Allergy (Severe, Uncoded 11/30/19 19:02) Home Medications: Ambulatory Orders Mometasone Furoate [Elocon] 0.1 % TOP DAILY PRN 11/07/17 Epinephrine [Epipen 2-Mikael] 0.3 mg IJ ONCE PRN #1 pack 03/26/18 Buspirone HCl 30 mg PO BID 10/23/18 Diazepam 5 mg PO TID 02/21/19 Gabapentin 300 mg PO TID 11/11/19 Hydrocodone-Acetaminophen [[place] 7.5-325 mg] 1 tab PO TID 11/11/19 Vilazodone HCl [Viibryd] 40 mg PO DAILY 11/11/19 tiZANidine [Zanaflex] 12 mg PO Q8H PRN 11/11/19 Ondansetron Odt [Zofran Odt] 8 mg PO Q8H PRN #12 tab 12/25/19 Albuterol Sulfate [Proair Hfa] 2 puff INH Q6H PRN 01/01/20 Azelastine HCl [Azelastine Hydrochloride] 0.1 % INH PRN PRN 01/01/20 Esomeprazole Magnesium [Nexium] 40 mg PO PRN 01/01/20 Glucagon [Baqsimi One Pack] 3 mg NA PRN 01/01/20 Hydroxyzine HCl [Hydroxyzine Hydrochloride] 50 mg PO QID 01/01/20 Insulin Glargine [Lantus Solostar] 10 unit SC BEDTIME 01/01/20 Insulin Glargine [Lantus Solostar] 25 unit SC DAILY 01/01/20 Mometasone Furoate 0.1 % TOP PRN 01/01/20 Naloxone HCl [Narcan] 4 mg NA PRN 01/01/20 Promethazine Tab [Phenergan Tablet] 25 mg PO .Q4H PRN 01/01/20 Salmeterol Xinafoate [Serevent Diskus] 50 mcg IN PRN 01/01/20 Triamcinolone 0.5% Cream [Kenalog 0.5% Cream] 1 applic TOP PRN 01/01/20 Promethazine Supp [Phenergan Suppository] 12.5 mg [place] Q6H PRN #15 sup 02/20/20 Review of Systems - Review of Systems Constitutional: States: malaise EENTM: States: no symptoms reported Respiratory: States: no symptoms reported Cardiology: States: no symptoms reported Gastrointestinal/Abdominal: States: abdominal pain, nausea, vomiting Genitourinary: States: no symptoms reported Musculoskeletal: States: no symptoms reported Skin: States: no symptoms reported Neurological: States: see HPI - Chronic changes related to diabetes Endocrine: States: no symptoms reported All other Systems: No Change from Baseline Past Medical History (General) - Patient Medical History Hx Seizures: Yes Hx Stroke: No Hx Dementia: No Hx Asthma: Yes Hx of COPD: No Hx Cardiac Disorders: No Hx Congestive Heart Failure: No Hx Pacemaker: No Hx Hypertension: Yes Hx Thyroid Disease: No Hx Diabetes: Yes - FSBS 171 Hx Gastroesophageal Reflux: Yes Hx Renal Disease: No Hx Cancer: No Hx of HIV: No Hx Hepatitis C: No Hx MRSA: Yes - 2 yrs ago. MRSA Source:: Blood Surgical History: appendectomy, cholecystectomy, Hysterectomy - Vaccination History Hx Tetanus, Diphtheria Vaccination: No Hx Influenza Vaccination: Yes Hx Pneumococcal Vaccination: Yes - Social History Hx Tobacco Use: Yes Hx Chewing Tobacco Use: No Hx Alcohol Use: No Hx Substance Use: No Hx Substance Use Treatment: No Hx Depression: Yes Hx Physical Abuse: No Hx Emotional Abuse: No Hx Suspected Abuse: No - Female History Hx Last Menstrual Period: 11/05/11 Patient : Yes Family Medical History - Family History Mother Family History: No Known Name: April Age (years): 70 Living Status: Still Living Hx Family Asthma: No Hx Family Congestive Heart Failure: No Hx Family Hypertension: No Hx Family Stroke: No Hx Cardiac Disease: No Hx Family Diabetes: No Hx Family Cancer: Yes - skin cancer Hx Family;Other: thyroid problems and seizures Father Family History: No Known Name: Marlon Age (years): 68 Living Status: Still Living Hx Family Asthma: - Sister Hx Family Congestive Heart Failure: No Hx Family Hypertension: Yes Hx Family Stroke: No Hx Cardiac Disease: Yes Hx Family Diabetes: No Age of Onset (years of age): 32 Hx Family Cancer: - Grandmother Lymphoma Physical Exam - Physical Exam General Appearance: Alert, No apparent distress - When the patient thinks no one is looking Eye Exam: bilateral normal Ears, Nose, Throat: normal pharynx Neck: non-tender, supple - No evidence of torticollis currently. Respiratory: lungs clear, normal breath sounds, no respiratory distress, no accessory muscle use Cardiovascular/Chest: normal peripheral pulses, regular rate, rhythm, no edema Peripheral Pulses: radial,right: 2+, radial,left: 2+ Gastrointestinal/Abdominal: soft, other - Patient reports diffuse discomfort to palpation. No palpable mass. No rebound. Rectal Exam: deferred Back Exam: no CVA tenderness, no vertebral tenderness Extremity: non-tender, normal inspection, no pedal edema, normal capillary refill Neurologic: supervisor edging II-XII nml as tested, alert, normal mood/affect - The patient is anxious, oriented x 3 Skin Exam: normal color Comments: Vital Signs - 24 hr 02/22/20 19:42 Temperature 98.1 F Pulse Rate [ 113 H left] Respiratory 16 Rate Blood Pressure 111/83 [left] O2 Sat by Pulse 98 Oximetry Progress - Progress Progress: 02/22/20 22:20 The patient is a 44-year-old female with cyclical nausea and vomiting and a history of diabetic gastroparesis and chronic constipation presenting with symptoms from all above. The patient received a dose of milk of magnesia here. She received a dose of IV Phenergan and had a scopolamine patch placed. The patient needs to maintain largely a liquid diet for the next 3 to 5 days. She needs to follow-up with her wedding transportation driver. She needs to maintain tight glucose control. Blood sugar is back under 200 by time of discharge. Opiate medications are for now being avoided in order to reduce both the constipation issues as well as avoiding reduction in upper GI motility in the face of her history of gastroparesis. The patient is well hydrated at this point. No clinical evidence of DKA. Follow-up with her primary care doctor later this week. ER warnings are given. lana anderson [id number] - Results/Orders Results/Orders: Laboratory Tests 02/22/20 02/22/20 20:14 22:02 POC Glucose 323 H 181 H D Departure - Departure Clinical Impression: Diabetic gastroparesis, Cyclical vomiting with nausea, Diabetes mellitus, labile Disposition: Discharge to Home or Self Care Condition: Fair Departure Forms: ED Discharge - Pt. Copy, Patient Portal Self Enrollment Instructions: DI for Constipation Diet: full liquid diet, diabetic diet Activity: increase activity as tolerated Referrals: JUSTINO MARQUEZ IV, [employer]ER [Primary Care Provider] - 1-5 Days Home Medications: Ambulatory Orders Mometasone Furoate [Elocon] 0.1 % TOP DAILY PRN 11/07/17 Epinephrine [Epipen 2-Mikael] 0.3 mg IJ ONCE PRN #1 pack 03/26/18 Buspirone HCl 30 mg PO BID 10/23/18 Diazepam 5 mg PO TID 02/21/19 Gabapentin 300 mg PO TID 11/11/19 Hydrocodone-Acetaminophen [[place] 7.5-325 mg] 1 tab PO TID 11/11/19 Vilazodone HCl [Viibryd] 40 mg PO DAILY 11/11/19 tiZANidine [Zanaflex] 12 mg PO Q8H PRN 11/11/19 Ondansetron Odt [Zofran Odt] 8 mg PO Q8H PRN #12 tab 12/25/19 Albuterol Sulfate [Proair Hfa] 2 puff INH Q6H PRN 01/01/20 Azelastine HCl [Azelastine Hydrochloride] 0.1 % INH PRN PRN 01/01/20 Esomeprazole Magnesium [Nexium] 40 mg PO PRN 01/01/20 Glucagon [Baqsimi One Pack] 3 mg NA PRN 01/01/20 Hydroxyzine HCl [Hydroxyzine Hydrochloride] 50 mg PO QID 01/01/20 Insulin Glargine [Lantus Solostar] 10 unit SC BEDTIME 01/01/20 Insulin Glargine [Lantus Solostar] 25 unit SC DAILY 01/01/20 Mometasone Furoate 0.1 % TOP PRN 01/01/20 Naloxone HCl [Narcan] 4 mg NA PRN 01/01/20 Promethazine Tab [Phenergan Tablet] 25 mg PO .Q4H PRN 01/01/20 Salmeterol Xinafoate [Serevent Diskus] 50 mcg IN PRN 01/01/20 Triamcinolone 0.5% Cream [Kenalog 0.5% Cream] 1 applic TOP PRN 01/01/20 Promethazine Supp [Phenergan Suppository] 12.5 mg [place] Q6H PRN #15 sup 02/20/20 Additional Instructions: The patient is a 44-year-old female with cyclical nausea and vomiting and a history of diabetic gastroparesis and chronic constipation presenting with symptoms from all above. The patient received a dose of milk of magnesia here. She received a dose of IV Phenergan and had a scopolamine patch placed. The patient needs to maintain largely a liquid diet for the next 3 to 5 days. She needs to follow-up with her wedding transportation driver. She needs to maintain tight glucose control. Blood sugar is back under 200 by time of discharge. Opiate medications are for now being avoided in order to reduce both the constipation issues as well as avoiding reduction in upper GI motility in the face of her history of gastroparesis. The patient is well hydrated at this point. No clinical evidence of DKA. Follow-up with her primary care doctor later this week. ER warnings are given.
[2020-02-22 22:28] VITALS: BP 93/60
[2020-02-22 22:30] VITALS: TEMP 98
== END 2020-02-22 22:30 | disposition home or self-care (01) ==
LOC: ER 19:37
DX: E11.43 Type 2 diabetes mellitus with diabetic autonomic (poly)neuropathy (principal); E11.65 Type 2 diabetes mellitus with hyperglycemia; K31.84 Gastroparesis; R11.2 Nausea with vomiting, unspecified; I10 Essential (primary) hypertension; F17.200 Nicotine dependence, unspecified, uncomplicated; Z79.4 Long term (current) use of insulin; Z79.899 Other long term (current) drug therapy
CPT/HCPCS: 36416; 74019; 82948; A4216; J1815; J1885; J2550; J7030

== ENCOUNTER 2020-02-24 12:53 | Emergency (ER) | payer MEDICARE, MEDICAID ==
[2020-02-24] MEDS ORDERED: PROMETHAZINE HCL INJ 12.5 MG in SODIUM CHLORIDE 0.9% 50ML 50 ML IVPB ONE (15:58)
[2020-02-24] MEDS ORDERED: MORPHINE SULFATE INJ 10 MG/ML VIAL IV ONE (15:58)
[2020-02-24 16:04] VITALS: BP 119/78
--- NOTE | 2020-02-24 17:49 | ED.PDOC ---
History of Present Illness - General Chief Complaint: GI Problem Stated Complaint: NAUSEA AND VOMITING, FELL AT HOME Time Seen by Provider: 02/24/20 15:57 Information Source: patient, RN notes reviewed Exam Limitations: no limitations - History of Present Illness Initial Comments: 44 y/o female frequent ER patient c/o vomiting and back pain. She says she can't keep her vicodin down or any of her other meds. No fever, chills, or dysuria Abdominal Pain Onset Location: flank Quality: throbbing Timing/Duration: 24 hours Improving Factors: nothing Worsening Factors: nothing Associated Symptoms: back pain, diarrhea, nausea/vomiting Review of Systems - Review of Systems Constitutional: States: no symptoms reported EENTM: States: no symptoms reported, other - dry mouth Respiratory: States: no symptoms reported Cardiology: States: no symptoms reported Gastrointestinal/Abdominal: States: nausea, vomiting Genitourinary: States: no symptoms reported Musculoskeletal: States: back pain Skin: States: no symptoms reported Neurological: States: no symptoms reported Past Medical History (General) - Patient Medical History Hx Seizures: Yes Hx Stroke: No Hx Dementia: No Hx Asthma: Yes Hx of COPD: No Hx Cardiac Disorders: No Hx Congestive Heart Failure: No Hx Pacemaker: No Hx Hypertension: Yes Hx Thyroid Disease: No Hx Diabetes: Yes - FSBS 171 Hx Gastroesophageal Reflux: Yes Hx Renal Disease: No Hx Cancer: No Hx of HIV: No Hx Hepatitis C: No Hx MRSA: Yes - 2 yrs ago. MRSA Source:: Blood Surgical History: appendectomy, cholecystectomy, Hysterectomy - Vaccination History Hx Tetanus, Diphtheria Vaccination: No Hx Influenza Vaccination: Yes Hx Pneumococcal Vaccination: Yes - Social History Hx Tobacco Use: Yes Hx Chewing Tobacco Use: No Hx Alcohol Use: No Hx Substance Use: No Hx Substance Use Treatment: No Hx Depression: Yes Hx Physical Abuse: No Hx Emotional Abuse: No Hx Suspected Abuse: No - Female History Hx Last Menstrual Period: 11/05/11 Patient : Yes Family Medical History - Family History Mother Family History: No Known Name: April Age (years): 70 Living Status: Still Living Hx Family Asthma: No Hx Family Congestive Heart Failure: No Hx Family Hypertension: No Hx Family Stroke: No Hx Cardiac Disease: No Hx Family Diabetes: No Hx Family Cancer: Yes - skin cancer Hx Family;Other: thyroid problems and seizures Father Family History: No Known Name: Marlon Age (years): 68 Living Status: Still Living Hx Family Asthma: - Sister Hx Family Congestive Heart Failure: No Hx Family Hypertension: Yes Hx Family Stroke: No Hx Cardiac Disease: Yes Hx Family Diabetes: No Age of Onset (years of age): 32 Hx Family Cancer: - Grandmother Lymphoma Physical Exam - Physical Exam General Appearance: Alert, Other - uncomfortable appearing Eyes, Ears, Nose, Throat Exam: normal ENT inspection Neck: non-tender, full range of motion, supple Respiratory: chest non-tender, lungs clear, normal breath sounds, no respiratory distress Cardiovascular/Chest: normal peripheral pulses, regular rate, rhythm, no murmur Gastrointestinal/Abdominal: normal bowel sounds, tenderness Back Exam: normal inspection Extremity: normal range of motion Skin Exam: normal color Departure - Departure Clinical Impression: Nausea and vomiting, Anxiety Type 1 diabetes Qualifiers: Diabetes mellitus complication status: with hyperglycemia Qualified Code(s): E10.65 - Type 1 diabetes mellitus with hyperglycemia Disposition: Discharge to Home or Self Care Condition: Good Departure Forms: ED Discharge - Pt. Copy, Patient Portal Self Enrollment Referrals: JUSTINO MARQUEZ IV O[employer] FIELD LABORER [Primary Care Provider] - 1-2 Weeks Home Medications: Ambulatory Orders Mometasone Furoate [Elocon] 0.1 % TOP DAILY PRN 11/07/17 Epinephrine [Epipen 2-Mikael] 0.3 mg IJ ONCE PRN #1 pack 03/26/18 Buspirone HCl 30 mg PO BID 10/23/18 Diazepam 5 mg PO TID 02/21/19 Gabapentin 300 mg PO TID 11/11/19 Hydrocodone-Acetaminophen [[place] 7.5-325 mg] 1 tab PO TID 11/11/19 Vilazodone HCl [Viibryd] 40 mg PO DAILY 11/11/19 tiZANidine [Zanaflex] 12 mg PO Q8H PRN 11/11/19 Ondansetron Odt [Zofran Odt] 8 mg PO Q8H PRN #12 tab 12/25/19 Albuterol Sulfate [Proair Hfa] 2 puff INH Q6H PRN 01/01/20 Azelastine HCl [Azelastine Hydrochloride] 0.1 % INH PRN PRN 01/01/20 Esomeprazole Magnesium [Nexium] 40 mg PO PRN 01/01/20 Glucagon [Baqsimi One Pack] 3 mg NA PRN 01/01/20 Hydroxyzine HCl [Hydroxyzine Hydrochloride] 50 mg PO QID 01/01/20 Insulin Glargine [Lantus Solostar] 10 unit SC BEDTIME 01/01/20 Insulin Glargine [Lantus Solostar] 25 unit SC DAILY 01/01/20 Mometasone Furoate 0.1 % TOP PRN 01/01/20 Naloxone HCl [Narcan] 4 mg NA PRN 01/01/20 Promethazine Tab [Phenergan Tablet] 25 mg PO .Q4H PRN 01/01/20 Salmeterol Xinafoate [Serevent Diskus] 50 mcg IN PRN 01/01/20 Triamcinolone 0.5% Cream [Kenalog 0.5% Cream] 1 applic TOP PRN 01/01/20 Promethazine Supp [Phenergan Suppository] 12.5 mg [place] Q6H PRN #15 sup 02/20/20
[2020-02-24] MEDS ORDERED: HEPARIN SODIUM 100 U/ML 5 ML SYG IV ONE (18:03)
[2020-02-24 19:28] VITALS: TEMP 97.2; O2SAT 98
== END 2020-02-24 18:30 | disposition home or self-care (01) ==
LOC: ER 12:53
DX: E10.65 Type 1 diabetes mellitus with hyperglycemia (principal); R11.2 Nausea with vomiting, unspecified; F41.9 Anxiety disorder, unspecified; R19.7 Diarrhea, unspecified; M54.9 Dorsalgia, unspecified; R56.9 Unspecified convulsions; J45.909 Unspecified asthma, uncomplicated; I10 Essential (primary) hypertension; K21.9 Gastro-esophageal reflux disease without esophagitis; Z90.49 Acquired absence of other specified parts of digestive tract; F32.9 Major depressive disorder, single episode, unspecified; Z87.891 Personal history of nicotine dependence; Z79.4 Long term (current) use of insulin; Z79.899 Other long term (current) drug therapy
CPT/HCPCS: 80048; 85025; A4216; J1642; J2060; J2270; J2550

== ENCOUNTER 2020-02-27 15:43 | Emergency (ER) | payer MEDICARE, MEDICAID ==
[2020-02-27] MEDS ORDERED: SODIUM CHLORIDE 0.9% 1000ML 1,000 ML IVS ONE (15:50)
[2020-02-27] MEDS ORDERED: ONDANSETRON INJ 4 MG/2 ML VIAL IV ONE ×2 (15:50→16:41)
[2020-02-27] MEDS ORDERED: SODIUM CHLORIDE 0.9% 1000ML 2,000 ML IVS ONE (16:31)
--- NOTE | 2020-02-27 16:36 | ED.PDOC ---
History of Present Illness - General Chief Complaint: Diabetic Complaint Stated Complaint: Elevated BS, CP and bilat flank pain Time Seen by Provider: 02/27/20 15:49 Additional Information: Patient is a 44-year-old female who presents to the ED with chief complaint of vomiting. Patient indicates that she awoke at 3:00 this morning with nausea and vomiting and her symptoms have persisted throughout the day. Patient is an insulin-dependent diabetic and says she has been in DKA 45 times. She checked her blood sugar at home and it read "high" and patient came to the ED for evaluation. Patient indicates she feels very weak and dehydrated. She denies fever, chills, chest pain, shortness of breath, cough, abdominal pain. She indicates she has side pain from vomiting today. She denies dysuria. Patient tells me she does not know why she is in DKA and indicates she is compliant with a proper diabetic diet. - History of Present Illness Allergies/Adverse Reactions: Allergies Fish Allergy Allergy (Verified 02/27/20 16:03) Ketorolac Tromethamine [From Toradol] Adverse Reaction (Verified 02/27/20 16:03) Metoclopramide [From Reglan] Adverse Reaction (Verified 02/27/20 16:03) peanut Allergy (Severe, Uncoded 02/24/20 15:03) Home Medications: Ambulatory Orders Mometasone Furoate [Elocon] 0.1 % TOP DAILY PRN 11/07/17 Epinephrine [Epipen 2-Mikael] 0.3 mg IJ ONCE PRN #1 pack 03/26/18 Buspirone HCl 30 mg PO BID 10/23/18 Diazepam 5 mg PO TID 02/21/19 Gabapentin 300 mg PO TID 11/11/19 Hydrocodone-Acetaminophen [[place] 7.5-325 mg] 1 tab PO TID 11/11/19 Vilazodone HCl [Viibryd] 40 mg PO DAILY 11/11/19 tiZANidine [Zanaflex] 12 mg PO Q8H PRN 11/11/19 Ondansetron Odt [Zofran Odt] 8 mg PO Q8H PRN #12 tab 12/25/19 Albuterol Sulfate [Proair Hfa] 2 puff INH Q6H PRN 01/01/20 Azelastine HCl [Azelastine Hydrochloride] 0.1 % INH PRN PRN 01/01/20 Esomeprazole Magnesium [Nexium] 40 mg PO PRN 01/01/20 Glucagon [Baqsimi One Pack] 3 mg NA PRN 01/01/20 Hydroxyzine HCl [Hydroxyzine Hydrochloride] 50 mg PO QID 01/01/20 Insulin Glargine [Lantus Solostar] 10 unit SC BEDTIME 01/01/20 Insulin Glargine [Lantus Solostar] 25 unit SC DAILY 01/01/20 Mometasone Furoate 0.1 % TOP PRN 01/01/20 Naloxone HCl [Narcan] 4 mg NA PRN 01/01/20 Promethazine Tab [Phenergan Tablet] 25 mg PO .Q4H PRN 01/01/20 Salmeterol Xinafoate [Serevent Diskus] 50 mcg IN PRN 01/01/20 Triamcinolone 0.5% Cream [Kenalog 0.5% Cream] 1 applic TOP PRN 01/01/20 Promethazine Supp [Phenergan Suppository] 12.5 mg [place] Q6H PRN #15 sup 02/20/20 Review of Systems - Review of Systems Constitutional: States: weakness. Denies: chills, fever EENTM: States: no symptoms reported Respiratory: States: no symptoms reported. Denies: cough, short of breath Cardiology: States: no symptoms reported. Denies: chest pain, palpitations Gastrointestinal/Abdominal: States: nausea, vomiting Genitourinary: Denies: dysuria Musculoskeletal: States: muscle pain Skin: States: no symptoms reported. Denies: rash Neurological: States: no symptoms reported All other Systems: Reviewed and Negative Past Medical History (General) - Patient Medical History Hx Seizures: Yes Hx Stroke: No Hx Dementia: No Hx Asthma: Yes Hx of COPD: No Hx Cardiac Disorders: No Hx Congestive Heart Failure: No Hx Pacemaker: No Hx Hypertension: Yes Hx Thyroid Disease: No Hx Diabetes: Yes Hx Gastroesophageal Reflux: Yes Hx Renal Disease: No Hx Cancer: No Hx of HIV: No Hx Hepatitis C: No Hx MRSA: Yes - 2 yrs ago. MRSA Source:: Blood Surgical History: appendectomy, cholecystectomy, other - Vaccination History Hx Tetanus, Diphtheria Vaccination: No Hx Influenza Vaccination: Yes Hx Pneumococcal Vaccination: Yes - Social History Hx Tobacco Use: Yes Hx Chewing Tobacco Use: No Hx Alcohol Use: No Hx Substance Use: No Hx Substance Use Treatment: No Hx Depression: No Hx Physical Abuse: No Hx Emotional Abuse: No Hx Suspected Abuse: No - Female History Patient is a Female of Child Bearing Age (10 -59 yrs old): Yes Hx Last Menstrual Period: 11/05/11 Patient : No - Denies Family Medical History - Family History Mother Family History: No Known Name: April Age (years): 70 Living Status: Still Living Hx Family Asthma: No Hx Family Congestive Heart Failure: No Hx Family Hypertension: No Hx Family Stroke: No Hx Cardiac Disease: No Hx Family Diabetes: No Hx Family Cancer: Yes - skin cancer Hx Family;Other: thyroid problems and seizures Father Family History: No Known Name: Marlon Age (years): 68 Living Status: Still Living Hx Family Asthma: - Sister Hx Family Congestive Heart Failure: No Hx Family Hypertension: Yes Hx Family Stroke: No Hx Cardiac Disease: Yes Hx Family Diabetes: No Age of Onset (years of age): 32 Hx Family Cancer: - Grandmother Lymphoma Physical Exam - Physical Exam General Appearance: Alert, Frail, Obvious distress Ears, Nose, Throat: other - Mucous membranes are dry. 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 02/27/20 16:39 EKG: Sinus tachycardia rate of 136, right axis, normal QRS, nonspecific ST and T wave changes. Negative STEMI. Read by Todd Alvarado MD. 02/27/20 17:11 Patient's labs have resulted and she is in florid DKA. After IV fluid she remains tacky in the 120s and she continues to appear clinically ill. Patient is mentating well however. Patient will require ICU care and I will transfer for higher level of care. IV fluids and insulin drip begun. Patient has no focal signs of infection and her labs do not suggest infection although I do not yet have a UA. Clinically I suspect patient's DKA is from noncompliance. I have discussed the case with Dr. Campos, emergency physician, at [facility], who accepts patient ED to ED transfer. Patient is medically stable and clear for transfer at this time. - Results/Orders Results/Orders: 02/27/20 15:50 HCG,QUALITATIVE URINE Stat URINALYSIS Stat 02/27/20 16:31 Sodium Chloride 0.9% 1000ML [Ns 1000 ml] 2,000 ml IVS ONCE ABG [Arterial Blood Gas] Stat 02/27/20 17:00 Insulin, Reg.(Human) [HumuLIN R] 250 units Sodium Chl 0.9% 250Ml (Lewis) [NS 250ml (LEWIS)] 247.5 ml IVPB Q12H 02/27/20 17:11 Promethazine HCl Inj [Phenergan Inj] 12.5 mg Sodium Chloride 0.9% 50Ml [NS 50ml] 50 ml IVPB ONCE 02/27/20 17:15 GLUCOSE, FINGER STICK Q1H 02/27/20 18:15 GLUCOSE, FINGER STICK Q1H 02/27/20 19:15 GLUCOSE, FINGER STICK Q1H 02/27/20 20:15 GLUCOSE, FINGER STICK Q1H Laboratory Results - last 24 hr 02/27/20 02/27/20 02/27/20 16:09 16:09 16:09 WBC 9.5 RBC 5.07 Hgb 13.4 Hct 42.2 MCV 83.1 MCH 26.5 L MCHC 31.9 L RDW 14.7 H Plt Count 329 MPV 8.5 Absolute Neuts (auto) 7.50 H Absolute Lymphs (auto) 1.50 Absolute Monos (auto) 0.30 Absolute Eos (auto) 0.20 Absolute Basos (auto) 0.00 Neutrophils % 79.0 H Lymphocytes % 15.8 L Monocytes % 2.9 Eosinophils % 1.9 Basophils % 0.4 Sodium 135 Potassium 4.2 Chloride 99 L Carbon Dioxide 15 L D Anion Gap 25.2 H BUN 20 H Creatinine 0.95 BUN/Creatinine Ratio 21.1 H Random Glucose 612 H* Serum Osmolality 302.0 H Calcium 9.5 Total Bilirubin 2.0 H AST 23 ALT 32 Alkaline Phosphatase 176 H Troponin I < 0.02 Serum Total Protein 8.1 Albumin 4.7 Globulin 3.4 Albumin/Globulin Ratio 1.4 Departure - Departure Clinical Impression: Diabetic ketoacidosis Qualifiers: Diabetes mellitus type: type 2 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: with shelter use Diabetes mellitus complication detail: without coma Qualified Code(s): E11.10 - Type 2 diabetes mellitus with ketoacidosis without coma; Z79.4 - MCC (current) use of insulin Time of Disposition: 17:15 Disposition: Transfer to Hospital Condition: Fair Instructions: DI for Diabetes Type 2 Home Medications: Ambulatory Orders Mometasone Furoate [Elocon] 0.1 % TOP DAILY PRN 11/07/17 Epinephrine [Epipen 2-Mikael] 0.3 mg IJ ONCE PRN #1 pack 03/26/18 Buspirone HCl 30 mg PO BID 10/23/18 Diazepam 5 mg PO TID 02/21/19 Gabapentin 300 mg PO TID 11/11/19 Hydrocodone-Acetaminophen [[place] 7.5-325 mg] 1 tab PO TID 11/11/19 Vilazodone HCl [Viibryd] 40 mg PO DAILY 11/11/19 tiZANidine [Zanaflex] 12 mg PO Q8H PRN 11/11/19 Ondansetron Odt [Zofran Odt] 8 mg PO Q8H PRN #12 tab 12/25/19 Albuterol Sulfate [Proair Hfa] 2 puff INH Q6H PRN 01/01/20 Azelastine HCl [Azelastine Hydrochloride] 0.1 % INH PRN PRN 01/01/20 Esomeprazole Magnesium [Nexium] 40 mg PO PRN 01/01/20 Glucagon [Baqsimi One Pack] 3 mg NA PRN 01/01/20 Hydroxyzine HCl [Hydroxyzine Hydrochloride] 50 mg PO QID 01/01/20 Insulin Glargine [Lantus Solostar] 10 unit SC BEDTIME 01/01/20 Insulin Glargine [Lantus Solostar] 25 unit SC DAILY 01/01/20 Mometasone Furoate 0.1 % TOP PRN 01/01/20 Naloxone HCl [Narcan] 4 mg NA PRN 01/01/20 Promethazine Tab [Phenergan Tablet] 25 mg PO .Q4H PRN 01/01/20 Salmeterol Xinafoate [Serevent Diskus] 50 mcg IN PRN 01/01/20 Triamcinolone 0.5% Cream [Kenalog 0.5% Cream] 1 applic TOP PRN 01/01/20 Promethazine Supp [Phenergan Suppository] 12.5 mg [place] Q6H PRN #15 sup 02/20/20 Transfer to Outside Facility - Transfer Information Decision to Transfer Date: 02/27/20 Decision to Transfer Time: 17:16 Reason for Transfer: specialized care not available Accepting Provider:: Dr. Campos Accepting Facility: [facility]
[2020-02-27] MEDS ORDERED: MORPHINE SULFATE INJ 10 MG/ML VIAL IV ONE (16:41)
[2020-02-27] MEDS ORDERED: INSULIN, REG.(HUMAN) 250 UNITS in SODIUM CHL 0.9% 250ML (AVIVA) 247.5 ML IVPB SCH ×2 (17:00)
[2020-02-27] MEDS ORDERED: PROMETHAZINE HCL INJ 12.5 MG in SODIUM CHLORIDE 0.9% 50ML 50 ML IVPB ONE (17:11)
[2020-02-27 17:33] VITALS: TEMP 97.8; O2SAT 95
[2020-02-27 18:04] VITALS: BP 111/77
== END 2020-02-27 17:55 | disposition short-term general hospital (02) ==
LOC: ER 15:43
DX: E11.10 Type 2 diabetes mellitus with ketoacidosis without coma (principal); R00.0 Tachycardia, unspecified; R56.9 Unspecified convulsions; J45.909 Unspecified asthma, uncomplicated; I10 Essential (primary) hypertension; K21.9 Gastro-esophageal reflux disease without esophagitis; Z79.4 Long term (current) use of insulin; Z90.49 Acquired absence of other specified parts of digestive tract; Z87.891 Personal history of nicotine dependence; Z79.899 Other long term (current) drug therapy; Z91.013 Allergy to seafood
CPT/HCPCS: 36415; 36416; 36600; 80053; 82803; 82805; 82948; 84484; 85025; 93005; A4216; J2270; J2405; J2550; J7030

== ENCOUNTER 2020-03-11 15:16 | Emergency (ER) | payer MEDICARE, MEDICAID ==
[2020-03-11] MEDS ORDERED: SODIUM CHLORIDE 0.9% (FLUSH) 10 ML SYG IV PRN (15:35)
[2020-03-11] MEDS ORDERED: HALOPERIDOL LACTATE INJ 5 MG/ML VIAL IV ONE (15:35)
[2020-03-11] MEDS ORDERED: SODIUM CHLORIDE 0.9% 1000ML 1,000 ML IVS PRN (15:35)
--- NOTE | 2020-03-11 16:10 | ED.PDOC ---
History of Present Illness - General Chief Complaint: GI Problem Stated Complaint: nausea, vomiting, bilateral flank pain Time Seen by Provider: 03/11/20 15:19 Information Source: patient, RN notes reviewed, Vital Signs reviewed Exam Limitations: no limitations - History of Present Illness Initial Comments: This is a 44-year-old female with history of diabetes and diabetic gastroparesis presenting to the emergency department with abdominal pain, nausea, vomiting onset 2 days ago. She has been taking her Phenergan and Zofran at home without improvement. She also reports bilateral flank pain and was recently told in [place] that she had microscopic hematuria. She denies any fever, sick contacts, suspicious foods. She states this is similar to her previous gastro paresis flares. She denies any diarrhea, vomiting blood, blood in stool. She saw a surgeon in [place] recently who plans to put in a gastric stimulator. Review of Systems - Review of Systems Constitutional: Denies: chills, fever EENTM: Denies: ear pain, nose pain, throat pain Respiratory: Denies: orthopnea, short of breath Cardiology: Denies: chest pain, edema, palpitations Gastrointestinal/Abdominal: States: abdominal pain, nausea, vomiting. Denies: constipation, diarrhea Musculoskeletal: Denies: joint pain, joint swelling, muscle pain, muscle stiffness Skin: States: lesions. Denies: dryness, rash Neurological: Denies: headache, paresthesia, tingling, tremors, weakness Endocrine: Denies: intolerance to cold, intolerance to heat, increased hunger, increased thirst, increased urine Hematologic/Lymphatic: States: no symptoms reported Past Medical History (General) - Patient Medical History Hx Seizures: Yes Hx Stroke: No Hx Dementia: No Hx Asthma: Yes Hx of COPD: No Hx Cardiac Disorders: No Hx Congestive Heart Failure: No Hx Pacemaker: No Hx Hypertension: Yes Hx Thyroid Disease: No Hx Diabetes: Yes Hx Gastroesophageal Reflux: Yes Hx Renal Disease: No Hx Cancer: No Hx of HIV: No Hx Hepatitis C: No Hx MRSA: Yes - 2 yrs ago. MRSA Source:: Blood Surgical History: appendectomy, cholecystectomy, Hysterectomy - Vaccination History Hx Tetanus, Diphtheria Vaccination: No Hx Influenza Vaccination: Yes Hx Pneumococcal Vaccination: Yes - Social History Hx Tobacco Use: Yes Hx Chewing Tobacco Use: No Hx Alcohol Use: No Hx Substance Use: No Hx Substance Use Treatment: No Hx Depression: No Hx Physical Abuse: No Hx Emotional Abuse: No Hx Suspected Abuse: No - Female History Hx Last Menstrual Period: 11/05/11 Patient : No - Denies Family Medical History - Family History Mother Family History: No Known Name: April Age (years): 70 Living Status: Still Living Hx Family Asthma: No Hx Family Congestive Heart Failure: No Hx Family Hypertension: No Hx Family Stroke: No Hx Cardiac Disease: No Hx Family Diabetes: No Hx Family Cancer: Yes - skin cancer Hx Family;Other: thyroid problems and seizures Father Family History: No Known Name: Marlon Age (years): 68 Living Status: Still Living Hx Family Asthma: - Sister Hx Family Congestive Heart Failure: No Hx Family Hypertension: Yes Hx Family Stroke: No Hx Cardiac Disease: Yes Hx Family Diabetes: No Age of Onset (years of age): 32 Hx Family Cancer: - Grandmother Lymphoma Physical Exam - Physical Exam General Appearance: Alert, Comfortable, No apparent distress, Other - No retching Neck: full range of motion, normal inspection, other - There is a 1 x 1 cm tender erythematous nodule to the right lateral neck, likely cellulitis, no fluctuance, no palpable abscess Respiratory: lungs clear, normal breath sounds Cardiovascular/Chest: no edema, no gallop, no JVD, no murmur Gastrointestinal/Abdominal: normal bowel sounds, other - Bilateral upper abdominal tenderness on exam Back Exam: normal inspection, no CVA tenderness, no vertebral tenderness Extremity: non-tender, normal inspection, no pedal edema Neurologic: no motor/sensory deficits, alert, normal mood/affect, oriented x 3 Skin Exam: normal color, warm/dry Special Observations: No evidence of discomfort, Tolerates fluids - Patient carrying large drink with her into the emergency department Progress - Progress Progress: 03/11/20 16:12 Old records reviewed. This is patient's 18th ER visit in 2019. I saw her 2 weeks ago in the emergency department, when she came in each day over 4 days. I explained her at that time that opiate medications for her chronic abdominal pain are not indicated and likely contributing to the problem. I explained again today that I do not plan to use opiates unless I find something specific that requires them. I have strongly suspect this is her gastroparesis. Will give Haldol, IV fluids, check labs, and reassess when completed 03/11/20 17:04 Rechecked. Patient feeling much better after IV fluids and IV Haldol. No evidence of severe dehydration, urine specific gravity is normal, no ketones in urine. Labs are otherwise reassuring. No evidence of DKA. Patient has multiple prescriptions for antiemetics at home. Recommended she follow-up with her PCP as scheduled and with general surgery as scheduled for gastric stimulator. DDX: Gastroparesis, dehydration, DKA MDM: This patient is well-known to the emergency department with 18 ER visits in 2019, almost exclusively for abdominal pain and vomiting. She has been seen multiple times in the last 2 months for abdominal pain and vomiting. She is scheduled to have a gastric stimulator placed for gastroparesis in [place] in the near future. Her nausea and abdominal pain resolved with IV Haldol and IV fluids in the emergency department. Haldol is seem to work well the last 2 times a day of seen her in the emergency department. I would consider this as first-line agent for vomiting in the future, as a feel opiates are not indicated for her given the chronicity of her pain. She is well-appearing and does not appear severely dehydrated. I do not feel admission is indicated at this time. She is comfortable going home. Recommended she keep her appointments with general surgery and PCP as scheduled. Strict ER warnings given to return for worsening Matthew Garcia DO [facility] # [id number] - Results/Orders Results/Orders: 03/11/20 15:35 Sodium Chloride 0.9% (Flush) [Saline Flush Syringe] 10 ml IV PRN PRN Sodium Chloride 0.9% 1000ML [Ns 1000 ml] 1,000 ml IVS .QD 03/11/20 15:45 EKG STAT Laboratory Results - last 24 hr 03/11/20 03/11/20 03/11/20 15:50 15:50 15:50 WBC 5.3 RBC 4.53 Hgb 12.0 Hct 36.3 MCV 80.3 L MCH 26.5 L MCHC 33.0 RDW 14.3 Plt Count 296 MPV 8.1 Absolute Neuts (auto) 2.80 Absolute Lymphs (auto) 2.00 Absolute Monos (auto) 0.30 Absolute Eos (auto) 0.10 Absolute Basos (auto) 0.00 Neutrophils % 53.0 Lymphocytes % 37.8 Monocytes % 5.9 Eosinophils % 2.4 Basophils % 0.9 Sodium 134 L Potassium 3.9 Chloride 105 Carbon Dioxide 22 Anion Gap 10.9 L BUN 15 Creatinine 0.49 L BUN/Creatinine Ratio 30.6 H Random Glucose 169 H Serum Osmolality 273.0 L Calcium 8.4 Total Bilirubin 0.6 Direct Bilirubin 0.1 Indirect Bilirubin 0.5 AST 52 H ALT 47 Alkaline Phosphatase 108 Serum Total Protein 7.2 Albumin 4.0 Serum HCG, Qual Negative Urine Color Urine Appearance Urine pH Ur Specific [place] Urine Protein Urine Glucose (UA) Urine Ketones Urine Blood Urine Nitrite Urine Bilirubin Urine Urobilinogen Ur Leukocyte Esterase Urine RBC Urine WBC Ur Epithelial Cells Urine Bacteria 03/11/20 16:14 WBC RBC Hgb Hct MCV MCH MCHC RDW Plt Count MPV Absolute Neuts (auto) Absolute Lymphs (auto) Absolute Monos (auto) Absolute Eos (auto) Absolute Basos (auto) Neutrophils % Lymphocytes % Monocytes % Eosinophils % Basophils % Sodium Potassium Chloride Carbon Dioxide Anion Gap BUN Creatinine BUN/Creatinine Ratio Random Glucose Serum Osmolality Calcium Total Bilirubin Direct Bilirubin Indirect Bilirubin AST ALT Alkaline Phosphatase Serum Total Protein Albumin Serum HCG, Qual Urine Color Yellow Urine Appearance Clear Urine pH 5.5 Ur Specific [place] 1.015 Urine Protein Negative Urine Glucose (UA) 100 H Urine Ketones Negative Urine Blood Moderate H Urine Nitrite Negative Urine Bilirubin Negative Urine Urobilinogen 0.2 Ur Leukocyte Esterase Negative Urine RBC 3-5 H Urine WBC 0 Ur Epithelial Cells 10-20 Urine Bacteria Rare - EKG/XRAY/CT CT Ordered: No CT Interpretation Call Back: No Departure - Departure Clinical Impression: Diabetic gastroparesis associated with type 2 diabetes mellitus Nausea & vomiting Qualifiers: Vomiting type: unspecified Vomiting Intractability: non-intractable Qualified Code(s): R11.2 - Nausea with vomiting, unspecified Disposition: Discharge to Home or Self Care Departure Forms: ED Discharge - Pt. Copy, Patient Portal Self Enrollment Diet: resume usual diet Activity: increase activity as tolerated Referrals: JUSTINO MARQUEZ IV, [employer] [Primary Care Provider] - 1-5 Days Home Medications: Ambulatory Orders Mometasone Furoate [Elocon] 0.1 % TOP DAILY PRN 11/07/17 Epinephrine [Epipen 2-Mikael] 0.3 mg IJ ONCE PRN #1 pack 03/26/18 Buspirone HCl 30 mg PO BID 10/23/18 Diazepam 5 mg PO TID 02/21/19 Gabapentin 300 mg PO TID 11/11/19 Hydrocodone-Acetaminophen [[place] 7.5-325 mg] 1 tab PO TID 11/11/19 Vilazodone HCl [Viibryd] 40 mg PO DAILY 11/11/19 tiZANidine [Zanaflex] 12 mg PO Q8H PRN 11/11/19 Ondansetron Odt [Zofran Odt] 8 mg PO Q8H PRN #12 tab 12/25/19 Albuterol Sulfate [Proair Hfa] 2 puff INH Q6H PRN 01/01/20 Azelastine HCl [Azelastine Hydrochloride] 0.1 % INH PRN PRN 01/01/20 Esomeprazole Magnesium [Nexium] 40 mg PO PRN 01/01/20 Glucagon [Baqsimi One Pack] 3 mg NA PRN 01/01/20 Hydroxyzine HCl [Hydroxyzine Hydrochloride] 50 mg PO QID 01/01/20 Insulin Glargine [Lantus Solostar] 10 unit SC BEDTIME 01/01/20 Insulin Glargine [Lantus Solostar] 25 unit SC DAILY 01/01/20 Mometasone Furoate 0.1 % TOP PRN 01/01/20 Naloxone HCl [Narcan] 4 mg NA PRN 01/01/20 Promethazine Tab [Phenergan Tablet] 25 mg PO .Q4H PRN 01/01/20 Salmeterol Xinafoate [Serevent Diskus] 50 mcg IN PRN 01/01/20 Triamcinolone 0.5% Cream [Kenalog 0.5% Cream] 1 applic TOP PRN 01/01/20 Promethazine Supp [Phenergan Suppository] 12.5 mg [place] Q6H PRN #15 sup 02/20/20 Additional Instructions: Start with clear liquid diet, advance diet as tolerated. Return to the emergency room for fever, worsening abdominal pain, intractable vomiting, blood in stool, vomiting blood, or any other concerns.
[2020-03-11 17:33] VITALS: BP 108/69; TEMP 97.7; O2SAT 98
== END 2020-03-11 17:20 | disposition home or self-care (01) ==
LOC: ER 15:16
DX: E11.43 Type 2 diabetes mellitus with diabetic autonomic (poly)neuropathy (principal); K31.84 Gastroparesis; G89.29 Other chronic pain; R10.10 Upper abdominal pain, unspecified; R56.9 Unspecified convulsions; J45.909 Unspecified asthma, uncomplicated; I10 Essential (primary) hypertension; K21.9 Gastro-esophageal reflux disease without esophagitis; Z87.891 Personal history of nicotine dependence; Z90.49 Acquired absence of other specified parts of digestive tract; Z90.710 Acquired absence of both cervix and uterus; Z79.4 Long term (current) use of insulin
CPT/HCPCS: 36415; 80048; 80076; 81001; 84703; 85025; 93005; A4216; J1630; J7030

== ENCOUNTER 2020-03-13 10:02 | Emergency (ER) | payer MEDICARE, MEDICAID ==
[2020-03-13] MEDS ORDERED: HALOPERIDOL LACTATE INJ 5 MG/ML VIAL IV ONE (10:08)
[2020-03-13] MEDS ORDERED: CEPHALEXIN MONOHYDRATE 250 MG CAP PO ONE (10:09)
--- NOTE | 2020-03-13 10:12 | ED.PDOC ---
History of Present Illness - General Time Seen by Provider: 03/13/20 10:07 Source: patient, Vital Signs reviewed Additional Information: 41-year-old female history of diabetes history of diabetic gastroparesis multiple visits to the ER because of vomiting was seen here about 2 days ago because of vomiting, patient presents with vomiting again, and having a boil on her neck, patient said that she usually takes Phenergan Zofran at home, but has not been working she is supposed to have some sort of an implant for her gastroparesis, patient admits chills admits to suprapubic pressure denies any fever coughing abdominal pain Patient is a smoker - History of Present Illness Timing/Duration: constant Improving Factors: nothing Worsening Factors: nothing Associated Symptoms: denies symptoms Allergies/Adverse Reactions: Allergies Fish Allergy Allergy (Verified 03/13/20 10:15) Ketorolac Tromethamine [From Toradol] Adverse Reaction (Verified 03/13/20 10:15) Metoclopramide [From Reglan] Adverse Reaction (Verified 03/13/20 10:15) peanut Allergy (Severe, Uncoded 03/11/20 15:27) Home Medications: Ambulatory Orders Mometasone Furoate [Elocon] 0.1 % TOP DAILY PRN 11/07/17 Epinephrine [Epipen 2-Mikael] 0.3 mg IJ ONCE PRN #1 pack 03/26/18 Buspirone HCl 30 mg PO BID 10/23/18 Diazepam 5 mg PO TID 02/21/19 Gabapentin 300 mg PO TID 11/11/19 Hydrocodone-Acetaminophen [Hayden 7.5-325 mg] 1 tab PO TID 11/11/19 Vilazodone HCl [Viibryd] 40 mg PO DAILY 11/11/19 tiZANidine [Zanaflex] 12 mg PO Q8H PRN 11/11/19 Ondansetron Odt [Zofran Odt] 8 mg PO Q8H PRN #12 tab 12/25/19 Albuterol Sulfate [Proair Hfa] 2 puff INH Q6H PRN 01/01/20 Azelastine HCl [Azelastine Hydrochloride] 0.1 % INH PRN PRN 01/01/20 Esomeprazole Magnesium [Nexium] 40 mg PO PRN 01/01/20 Glucagon [Baqsimi One Pack] 3 mg NA PRN 01/01/20 Hydroxyzine HCl [Hydroxyzine Hydrochloride] 50 mg PO QID 01/01/20 Insulin Glargine [Lantus Solostar] 10 unit SC BEDTIME 01/01/20 Insulin Glargine [Lantus Solostar] 25 unit SC DAILY 01/01/20 Mometasone Furoate 0.1 % TOP PRN 01/01/20 Naloxone HCl [Narcan] 4 mg NA PRN 01/01/20 Promethazine Tab [Phenergan Tablet] 25 mg PO .Q4H PRN 01/01/20 Salmeterol Xinafoate [Serevent Diskus] 50 mcg IN PRN 01/01/20 Triamcinolone 0.5% Cream [Kenalog 0.5% Cream] 1 applic TOP PRN 01/01/20 Promethazine Supp [Phenergan Suppository] 12.5 mg MI Q6H PRN #15 sup 02/20/20 Review of Systems - Review of Systems Constitutional: States: no symptoms reported EENTM: States: no symptoms reported Respiratory: States: no symptoms reported Cardiology: States: no symptoms reported Gastrointestinal/Abdominal: States: nausea, vomiting Genitourinary: States: no symptoms reported Musculoskeletal: States: no symptoms reported Skin: States: no symptoms reported Neurological: States: no symptoms reported Endocrine: States: no symptoms reported Hematologic/Lymphatic: States: no symptoms reported Past Medical History (General) - Patient Medical History Hx Seizures: Yes Hx Stroke: No Hx Dementia: No Hx Asthma: Yes Hx of COPD: No Hx Cardiac Disorders: No Hx Congestive Heart Failure: No Hx Pacemaker: No Hx Hypertension: Yes Hx Thyroid Disease: No Hx Diabetes: Yes Hx Gastroesophageal Reflux: Yes Hx Renal Disease: No Hx Cancer: No Hx of HIV: No Hx Hepatitis C: No Hx MRSA: Yes - 2 yrs ago. MRSA Source:: Blood - Vaccination History Hx Tetanus, Diphtheria Vaccination: No Hx Influenza Vaccination: Yes Hx Pneumococcal Vaccination: Yes - Social History Hx Tobacco Use: Yes Hx Chewing Tobacco Use: No Hx Alcohol Use: No Hx Substance Use: No Hx Substance Use Treatment: No Hx Depression: No Hx Physical Abuse: No Hx Emotional Abuse: No Hx Suspected Abuse: No - Female History Hx Last Menstrual Period: 11/05/11 Patient : No - Denies Family Medical History - Family History Mother Family History: No Known Name: April Age (years): 70 Living Status: Still Living Hx Family Asthma: No Hx Family Congestive Heart Failure: No Hx Family Hypertension: No Hx Family Stroke: No Hx Cardiac Disease: No Hx Family Diabetes: No Hx Family Cancer: Yes - skin cancer Hx Family;Other: thyroid problems and seizures Father Family History: No Known Name: Marlon Age (years): 68 Living Status: Still Living Hx Family Asthma: - Sister Hx Family Congestive Heart Failure: No Hx Family Hypertension: Yes Hx Family Stroke: No Hx Cardiac Disease: Yes Hx Family Diabetes: No Age of Onset (years of age): 32 Hx Family Cancer: - Grandmother Lymphoma Physical Exam - Physical Exam General Appearance: Alert, Well Developed, Well Groomed, Well Hydrated, Well Nourished Ears, Nose, Throat: hearing grossly normal, normal ENT inspection, normal pharynx Neck: non-tender, other - Small boil noted in patient's neck with no fluctuance mild associated cellulitis Respiratory: chest non-tender, lungs clear, normal breath sounds, no respiratory distress, no accessory muscle use Cardiovascular/Chest: normal peripheral pulses, regular rate, rhythm, no edema, no gallop, no JVD Gastrointestinal/Abdominal: normal bowel sounds, non tender, soft, no organomegaly, no pulsatile mass Back Exam: normal inspection, no CVA tenderness, no vertebral tenderness Extremity: normal range of motion, non-tender, normal inspection, no pedal edema, no calf tenderness Neurologic: furnace keeper II-XII nml as tested, no motor/sensory deficits, alert, normal mood/affect, oriented x 3 Skin Exam: normal color, warm/dry Lymphatic: no adenopathy Progress - Progress Progress: This is a 43-year-old female, presents to the ER because of nausea and vomiting has a history of diabetic gastroparesis, has been seen in the hospital recently for the same complaints, also has a cellulitis noted in patient's neck, does not appear to be abscess is not fluctuant, I check Accu-Chek CBC and a chemistry and a UA. There is no evidence of renal failure no evidence of elevated anion gap or metabolic acidosis no leukocytosis and no UTI, this patient is scheduled to have some sort of an implant to help with her gastroparesis patient has not had any vomiting in the ER and will be discharged home with follow-up primary care physician. Instructions given to return to the ER immediately if any severe nausea vomiting abdominal pain right lower quadrant pain back pain diarrhea bloody stools unwanted weight of decreased oral intake unable to holding fluids down or any other concerns. Patient did receive a dose of Keflex in the ER and will be discharged home with Keflex for home 03/13/20 11:17 Departure - Departure Clinical Impression: Gastroparesis Nausea & vomiting Qualifiers: Vomiting type: unspecified Vomiting Intractability: unspecified Qualified Code(s): R11.2 - Nausea with vomiting, unspecified Disposition: Discharge to Home or Self Care Condition: Fair Instructions: Nausea and Vomiting, Adult, Gastroparesis (Delayed Gastric Emptying) (DC) Diet: full liquid diet Referrals: JUSTINO MARQUEZ IV, INSTRUCTIONAL TECHNOLOGY COORDINATOR [Primary Care Provider] - 1-2 Weeks Home Medications: Ambulatory Orders Mometasone Furoate [Elocon] 0.1 % TOP DAILY PRN 11/07/17 Epinephrine [Epipen 2-Mikael] 0.3 mg IJ ONCE PRN #1 pack 03/26/18 Buspirone HCl 30 mg PO BID 10/23/18 Diazepam 5 mg PO TID 02/21/19 Gabapentin 300 mg PO TID 11/11/19 Hydrocodone-Acetaminophen [Hayden 7.5-325 mg] 1 tab PO TID 11/11/19 Vilazodone HCl [Viibryd] 40 mg PO DAILY 11/11/19 tiZANidine [Zanaflex] 12 mg PO Q8H PRN 11/11/19 Ondansetron Odt [Zofran Odt] 8 mg PO Q8H PRN #12 tab 12/25/19 Albuterol Sulfate [Proair Hfa] 2 puff INH Q6H PRN 01/01/20 Azelastine HCl [Azelastine Hydrochloride] 0.1 % INH PRN PRN 01/01/20 Esomeprazole Magnesium [Nexium] 40 mg PO PRN 01/01/20 Glucagon [Baqsimi One Pack] 3 mg NA PRN 01/01/20 Hydroxyzine HCl [Hydroxyzine Hydrochloride] 50 mg PO QID 01/01/20 Insulin Glargine [Lantus Solostar] 10 unit SC BEDTIME 01/01/20 Insulin Glargine [Lantus Solostar] 25 unit SC DAILY 01/01/20 Mometasone Furoate 0.1 % TOP PRN 01/01/20 Naloxone HCl [Narcan] 4 mg NA PRN 01/01/20 Promethazine Tab [Phenergan Tablet] 25 mg PO .Q4H PRN 01/01/20 Salmeterol Xinafoate [Serevent Diskus] 50 mcg IN PRN 01/01/20 Triamcinolone 0.5% Cream [Kenalog 0.5% Cream] 1 applic TOP PRN 01/01/20 Promethazine Supp [Phenergan Suppository] 12.5 mg MI Q6H PRN #15 sup 02/20/20 Additional Instructions: Follow-up with primary care physician
[2020-03-13] MEDS ORDERED: HALOPERIDOL LACTATE INJ 5 MG/ML VIAL IM ONE (10:19)
[2020-03-13] MEDS ORDERED: SODIUM CHLORIDE 0.9% 1000ML 1,000 ML IVS ONE (10:33)
[2020-03-13] MEDS ORDERED: HEPARIN SODIUM 100 U/ML 5 ML SYG IV ONE (12:02)
[2020-03-13 12:13] VITALS: BP 113/76; TEMP 98; O2SAT 99
== END 2020-03-13 12:00 | disposition home or self-care (01) ==
LOC: ER 10:02
DX: E11.43 Type 2 diabetes mellitus with diabetic autonomic (poly)neuropathy (principal); K31.84 Gastroparesis; L03.221 Cellulitis of neck; J45.909 Unspecified asthma, uncomplicated; I10 Essential (primary) hypertension; K21.9 Gastro-esophageal reflux disease without esophagitis; R56.9 Unspecified convulsions; F17.200 Nicotine dependence, unspecified, uncomplicated; Z86.14 Personal history of Methicillin resistant Staphylococcus aureus infection; Z79.899 Other long term (current) drug therapy; Z79.4 Long term (current) use of insulin; Z88.8 Allergy status to other drugs, medicaments and biological substances; Z91.013 Allergy to seafood
CPT/HCPCS: 36415; 36416; 80053; 81001; 82948; 85025; J1630; J1642; J7030

== ENCOUNTER 2020-03-14 09:18 | Emergency (ER) | payer MEDICARE, MEDICAID ==
[2020-03-14] MEDS ORDERED: SODIUM CHLORIDE 0.9% (FLUSH) 10 ML SYG IV PRN (09:21)
[2020-03-14] MEDS ORDERED: SODIUM CHLORIDE 0.9% 1000ML 1,000 ML IVS ONE ×2 (09:21→10:14)
[2020-03-14] MEDS ORDERED: ONDANSETRON INJ 4 MG/2 ML VIAL IV ONE (09:21)
--- NOTE | 2020-03-14 09:22 | ED.PDOC ---
History of Present Illness - General Time Seen by Provider: 03/14/20 09:19 Source: patient - History of Present Illness Initial Comments: 44-year-old female with PMH diabetes, gastroparesis, drug-seeking behavior, anxiety who presents with chief complaint of chest pain. Reports onset a couple hours ago at home with rapid worsening, located to center of chest and radiates throughout entire anterior chest, constant, sharp, 10/10 severity, tried her at home pain medications without relief. Reports also continued associated nausea and vomiting and diarrhea. States she has had more than 10 episodes of emesis and several episodes of watery diarrhea since 4 AM. Also reports associated dyspnea. Reports continued chronic abdominal pain, located in bilateral lower abdominal regions. Patient was seen here yesterday and 3 days ago for the same issues. She is currently taking Keflex for possible anterior neck abscess. Pt is well known to this ED, numerous visits here in past couple months. She is a very difficult IV stick and a mediport to her right chest wall was placed 1 month ago. She states that she is scheduled to see her production solderer tomorrow and is supposed to have a gastric pacemaker placed soon as well. PCP is Zander Comer. Allergies/Adverse Reactions: Allergies Fish Allergy Allergy (Verified 03/14/20 09:32) Ketorolac Tromethamine [From Toradol] Adverse Reaction (Verified 03/14/20 09:32) Metoclopramide [From Reglan] Adverse Reaction (Verified 03/14/20 09:32) peanut Allergy (Severe, Uncoded 03/14/20 09:32) Home Medications: Ambulatory Orders Mometasone Furoate [Elocon] 0.1 % TOP DAILY PRN 11/07/17 Epinephrine [Epipen 2-Mikael] 0.3 mg IJ ONCE PRN #1 pack 03/26/18 Buspirone HCl 30 mg PO BID 10/23/18 Diazepam 5 mg PO TID 02/21/19 Gabapentin 300 mg PO TID 11/11/19 Hydrocodone-Acetaminophen [Ragley 7.5-325 mg] 1 tab PO TID 11/11/19 Vilazodone HCl [Viibryd] 40 mg PO DAILY 11/11/19 tiZANidine [Zanaflex] 12 mg PO Q8H PRN 11/11/19 Ondansetron Odt [Zofran Odt] 8 mg PO Q8H PRN #12 tab 12/25/19 Albuterol Sulfate [Proair Hfa] 2 puff INH Q6H PRN 01/01/20 Azelastine HCl [Azelastine Hydrochloride] 0.1 % INH PRN PRN 01/01/20 Esomeprazole Magnesium [Nexium] 40 mg PO PRN 01/01/20 Glucagon [Baqsimi One Pack] 3 mg NA PRN 01/01/20 Hydroxyzine HCl [Hydroxyzine Hydrochloride] 50 mg PO QID 01/01/20 Insulin Glargine [Lantus Solostar] 10 unit SC BEDTIME 01/01/20 Insulin Glargine [Lantus Solostar] 25 unit SC DAILY 01/01/20 Mometasone Furoate 0.1 % TOP PRN 01/01/20 Naloxone HCl [Narcan] 4 mg NA PRN 01/01/20 Promethazine Tab [Phenergan Tablet] 25 mg PO .Q4H PRN 01/01/20 Salmeterol Xinafoate [Serevent Diskus] 50 mcg IN PRN 01/01/20 Triamcinolone 0.5% Cream [Kenalog 0.5% Cream] 1 applic TOP PRN 01/01/20 Promethazine Supp [Phenergan Suppository] 12.5 mg DC Q6H PRN #15 sup 02/20/20 Review of Systems - Review of Systems Review of Systems: 03/14/20 09:35 as per HPI All other Systems: Reviewed and Negative Past Medical History (General) - Patient Medical History Hx Seizures: Yes Hx Stroke: No Hx Dementia: No Hx Asthma: Yes Hx of COPD: No Hx Cardiac Disorders: No Hx Congestive Heart Failure: No Hx Pacemaker: No Hx Hypertension: Yes Hx Thyroid Disease: No Hx Diabetes: Yes Hx Gastroesophageal Reflux: Yes Hx Renal Disease: No Hx Cancer: No Hx of HIV: No Hx Hepatitis C: No Hx MRSA: Yes - 2 yrs ago. MRSA Source:: Blood - Vaccination History Hx Tetanus, Diphtheria Vaccination: No Hx Influenza Vaccination: Yes Hx Pneumococcal Vaccination: Yes - Social History Hx Tobacco Use: Yes Hx Chewing Tobacco Use: No Hx Alcohol Use: No Hx Substance Use: No Hx Substance Use Treatment: No Hx Depression: No Hx Physical Abuse: No Hx Emotional Abuse: No Hx Suspected Abuse: No - Female History Hx Last Menstrual Period: 11/05/11 Patient : No - Denies Family Medical History - Family History Mother Family History: No Known Name: April Age (years): 70 Living Status: Still Living Hx Family Asthma: No Hx Family Congestive Heart Failure: No Hx Family Hypertension: No Hx Family Stroke: No Hx Cardiac Disease: No Hx Family Diabetes: No Hx Family Cancer: Yes - skin cancer Hx Family;Other: thyroid problems and seizures Father Family History: No Known Name: Marlon Age (years): 68 Living Status: Still Living Hx Family Asthma: - Sister Hx Family Congestive Heart Failure: No Hx Family Hypertension: Yes Hx Family Stroke: No Hx Cardiac Disease: Yes Hx Family Diabetes: No Age of Onset (years of age): 32 Hx Family Cancer: - Grandmother Lymphoma Physical Exam - Physical Exam General Appearance: Alert, Anxious, No apparent distress Eye Exam: bilateral normal Ears, Nose, Throat: normal ENT inspection Neck: non-tender, full range of motion, supple, other - small approx 2x2 cm area of skin induration without warmth/redness/fluctuance/tenderness to right anterior neck region Respiratory: chest non-tender, lungs clear, normal breath sounds, no respiratory distress, no accessory muscle use Cardiovascular/Chest: no edema, no gallop, no JVD, no murmur, tachycardia Peripheral Pulses: radial,right: 2+, radial,left: 2+ Gastrointestinal/Abdominal: soft, tenderness - inconsistent exam, pt jumping prior to palpation all over abdomen, reports worse tenderness in RLQ & LLQ, abdomen is soft, no masses, no rebound apparent Back Exam: normal inspection, no CVA tenderness, no vertebral tenderness Extremity: non-tender, normal inspection, no pedal edema, no calf tenderness, normal capillary refill 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 as tested, no motor/sensory deficits, alert, normal mood/affect, oriented x 3 Skin Exam: normal color, warm/dry Progress - Progress Progress: 03/14/20 09:38 Chest pain -also with chronic abd pain, n/v/d -consider anxiety, MSK, PE, ACS, CHF, PNA, COVID-19, UTI, drug-seeking behavior, dehydration, sepsis, DKA, pancreatitis, cholangitis, other -obtain cardiac work-up, labs, UA, sepsis work-up -1 L NS bolus, Zofran 4 mg IV, trial of SL NTG, ASA 324 mg PO 03/14/20 10:15 -Labs pertinent for serum bicarb 10, anion gap 20, serum glucose 345, K 4.3, Na 131, WBC 9,000 with 79% segs and no bands, lactate 1.5, T bili 1.7. UA with urine ketones >160, glucose >500, 3-5 RBC, 1-3 WBC, rare bacteria, neg nitrites, neg leuk esterase. ABG shows pH 7.25, pCO2 18, pO2 112, base excess -16 - c/w metabolic acidosis. Rapid strep is POSITIVE. -CXR shows no acute processes per my read. -Pt refuses nasal swab testing for COVID-19. She is w/o cough, dyspnea, fevers currently. She also had a reported negative test 2 weeks ago. -concern for DKA given hyperglycemia, anion gap in diabetic patient. Consider also sepsis, intraabdominal infection. Obtain ABG and CT A/P. Will give Regular insulin 5 units IV and insulin gtt, begin 2nd L NS bolus. Will need to transfer to higher LOC for DKA. 03/14/20 11:20 -CT A/P reveals evidence of mucosal wall thickening in transverse and descending colon/rectum c/w colitis, otherwise no acute processes. -Pt remains with tachycardia but improving, HR now 120s. Given Zosyn 3.375 g IV for broad spectrum coverage which will also cover strep pharyngitis. Continue NS boluses (on #3), insulin gtt. Adding KCl 20 mEq to this 3rd bag of fluids as pt on insulin gtt. -Spoke with Dr. Alcala at [facility] ED who accepts pt for ED to ED transfer, stable to go via ground EMS. Nicolas Gross MD Billing #[id number] 03/14/20 09:21 IV Care:Saline Lock per Protoc QSHIFT Telemetry .ONCE Sodium Chloride 0.9% (Flush) [Saline Flush Syringe] 10 ml IV PRN PRN Sodium Chloride 0.9% 1000ML [Ns 1000 ml] 1,000 ml IVS ONCE Pulse Oximetry Assessment DAILY 03/14/20 09:30 BLOOD CULTURE Stat EKG STAT 03/14/20 09:31 RESPIRATORY PANEL 2 Stat GROUP A STREP SCREEN, RAPID Stat 03/14/20 10:14 BOLUS Sodium Chloride 0.9% 1000ML [Ns 1000 ml] 1,000 ml IVS ONCE 03/14/20 10:15 ACETEST(KETONES),SERUM/PLASMA Stat 03/15/20 09:00 Pulse Ox Daily Laboratory Results - last 24 hr 03/14/20 03/14/20 03/14/20 09:30 09:30 09:30 WBC 9.1 RBC 5.03 Hgb 13.5 Hct 41.3 MCV 82.1 MCH 26.8 L MCHC 32.6 L RDW 14.0 Plt Count 350 MPV 8.3 Absolute Neuts (auto) 7.20 H Absolute Lymphs (auto) 1.50 Absolute Monos (auto) 0.30 Absolute Eos (auto) 0.10 Absolute Basos (auto) 0.10 Neutrophils % 79.0 H Lymphocytes % 16.4 L Monocytes % 2.9 Eosinophils % 0.7 L Basophils % 1.0 Sodium 131 L Potassium 4.3 Chloride 101 Carbon Dioxide 10 L* D Anion Gap 24.3 H BUN 12 Creatinine 0.74 BUN/Creatinine Ratio 16.2 Random Glucose 345 H D Serum Osmolality 276.1 Lactic Acid Calcium 9.4 Total Bilirubin 1.7 H D AST 21 ALT 31 Alkaline Phosphatase 143 H Troponin I < 0.02 B-Natriuretic Peptide < 5.0 Serum Total Protein 8.5 H Albumin 4.7 Globulin 3.8 H Albumin/Globulin Ratio 1.2 Lipase Urine Color Urine Appearance Urine pH Ur Specific Gary Urine Protein Urine Glucose (UA) Urine Ketones Urine Blood Urine Nitrite Urine Bilirubin Urine Urobilinogen Ur Leukocyte Esterase Urine RBC Urine WBC Ur Epithelial Cells Urine Bacteria Urine HCG, Qual 03/14/20 03/14/20 03/14/20 09:30 09:30 09:30 WBC RBC Hgb Hct MCV MCH MCHC RDW Plt Count MPV Absolute Neuts (auto) Absolute Lymphs (auto) Absolute Monos (auto) Absolute Eos (auto) Absolute Basos (auto) Neutrophils % Lymphocytes % Monocytes % Eosinophils % Basophils % Sodium Potassium Chloride Carbon Dioxide Anion Gap BUN Creatinine BUN/Creatinine Ratio Random Glucose Serum Osmolality Lactic Acid 1.5 Calcium Total Bilirubin AST ALT Alkaline Phosphatase Troponin I B-Natriuretic Peptide Serum Total Protein Albumin Globulin Albumin/Globulin Ratio Lipase 20 L Urine Color Urine Appearance Urine pH Ur Specific Gary Urine Protein Urine Glucose (UA) Urine Ketones Urine Blood Urine Nitrite Urine Bilirubin Urine Urobilinogen Ur Leukocyte Esterase Urine RBC Urine WBC Ur Epithelial Cells Urine Bacteria Urine HCG, Qual Negative 03/14/20 09:30 WBC RBC Hgb Hct MCV MCH MCHC RDW Plt Count MPV Absolute Neuts (auto) Absolute Lymphs (auto) Absolute Monos (auto) Absolute Eos (auto) Absolute Basos (auto) Neutrophils % Lymphocytes % Monocytes % Eosinophils % Basophils % Sodium Potassium Chloride Carbon Dioxide Anion Gap BUN Creatinine BUN/Creatinine Ratio Random Glucose Serum Osmolality Lactic Acid Calcium Total Bilirubin AST ALT Alkaline Phosphatase Troponin I B-Natriuretic Peptide Serum Total Protein Albumin Globulin Albumin/Globulin Ratio Lipase Urine Color Yellow Urine Appearance Sl cloudy Urine pH 5.0 Ur Specific Gary 1.020 Urine Protein Trace Urine Glucose (UA) 500 H Urine Ketones >=160 Urine Blood Moderate H Urine Nitrite Negative Urine Bilirubin Small H Urine Urobilinogen 0.2 Ur Leukocyte Esterase Negative Urine RBC 3-5 H Urine WBC 1-3 Ur Epithelial Cells 20-30 Urine Bacteria Rare Urine HCG, Qual - EKG/XRAY/CT EKG: Sinus, Tachy - HR 140, no ST elevs, q waves noted in anteroseptal leads indicative of likely prior AL, left axis deviation present, intervals normal, compared to 02/27/20 EKG appears largely unchanged XRAY: chest - no acute processes per my read Departure - Departure Clinical Impression: Colitis, Strep pharyngitis DKA (diabetic ketoacidoses) Qualifiers: Diabetes mellitus type: type 1 Diabetes mellitus complication detail: without coma Qualified Code(s): E10.10 - Type 1 diabetes mellitus with ketoacidosis without coma Time of Disposition: 11:25 Disposition: Transfer to Hospital Condition: Fair Referrals: JUSTINO COMER IV, INFORMATION ASSURANCE ENGINEER [Primary Care Provider] - 1-2 Weeks Home Medications: Ambulatory Orders Mometasone Furoate [Elocon] 0.1 % TOP DAILY PRN 11/07/17 Epinephrine [Epipen 2-Mikael] 0.3 mg IJ ONCE PRN #1 pack 03/26/18 Buspirone HCl 30 mg PO BID 10/23/18 Diazepam 5 mg PO TID 02/21/19 Gabapentin 300 mg PO TID 11/11/19 Hydrocodone-Acetaminophen [Ragley 7.5-325 mg] 1 tab PO TID 11/11/19 Vilazodone HCl [Viibryd] 40 mg PO DAILY 11/11/19 tiZANidine [Zanaflex] 12 mg PO Q8H PRN 11/11/19 Ondansetron Odt [Zofran Odt] 8 mg PO Q8H PRN #12 tab 12/25/19 Albuterol Sulfate [Proair Hfa] 2 puff INH Q6H PRN 01/01/20 Azelastine HCl [Azelastine Hydrochloride] 0.1 % INH PRN PRN 01/01/20 Esomeprazole Magnesium [Nexium] 40 mg PO PRN 01/01/20 Glucagon [Baqsimi One Pack] 3 mg NA PRN 01/01/20 Hydroxyzine HCl [Hydroxyzine Hydrochloride] 50 mg PO QID 01/01/20 Insulin Glargine [Lantus Solostar] 10 unit SC BEDTIME 01/01/20 Insulin Glargine [Lantus Solostar] 25 unit SC DAILY 01/01/20 Mometasone Furoate 0.1 % TOP PRN 01/01/20 Naloxone HCl [Narcan] 4 mg NA PRN 01/01/20 Promethazine Tab [Phenergan Tablet] 25 mg PO .Q4H PRN 01/01/20 Salmeterol Xinafoate [Serevent Diskus] 50 mcg IN PRN 01/01/20 Triamcinolone 0.5% Cream [Kenalog 0.5% Cream] 1 applic TOP PRN 01/01/20 Promethazine Supp [Phenergan Suppository] 12.5 mg DC Q6H PRN #15 sup 02/20/20 Transfer to Outside Facility - Transfer Information Decision to Transfer Date: 03/14/20 Decision to Transfer Time: 11:26 Reason for Transfer: specialized care not available - insulin drip, gastroenterology Accepting Provider:: Dr. Alcala Accepting Facility: [facility]
[2020-03-14 09:30] VITALS: O2SAT 99
[2020-03-14] MEDS ORDERED: NITROGLYCERIN 0.4 MG 25 EA TAB SL ONE (09:36)
[2020-03-14] MEDS ORDERED: ASPIRIN (CHEWABLE) 81 MG TAB PO ONE (09:36)
--- NOTE | 2020-03-14 10:02 | RAD ---
EXAM DESCRIPTION: Chest,1 View CLINICAL HISTORY: chest pain COMPARISON: and January 2020 TECHNIQUE: AP portable chest FINDINGS: An [id number] catheter seen in place on the patient's right with the distal tip in the region of the superior vena cava. The lungs are clear. The heart is within range of normal. No pleural fluid is seen. Surgical clips are seen in the right upper quadrant. IMPRESSION: An [id number]-[id number] catheter seen in place. The chest is otherwise unremarkable. Electronically signed by: Candido Zavala MD 03/14/2020 10:00 AM CDT
[2020-03-14] MEDS ORDERED: INSULIN, REG.(HUMAN) 100 U/ML VIAL IV ONE (10:14)
[2020-03-14] MEDS ORDERED: PIPERACILLIN/TAZOBACTAM 3.375 GM in SODIUM CHLORIDE 0.9% 100ML 100 ML IVPB ONE (11:06)
--- NOTE | 2020-03-14 11:07 | CT ---
EXAM DESCRIPTION: Abdomen/Pelvis w/Contrast CLINICAL HISTORY: 44 years Female, acute on chronic abdominal pain, DKA COMPARISON: CT abdomen and pelvis 02/19/2020. Abdominal radiographs 02/22/2020. TECHNIQUE: CT of the abdomen and pelvis acquired with IV contrast material. Coronal and sagittal reformations provided. This exam was performed according to our departmental dose-optimization program, which includes automated exposure control, adjustment of the mA and/or kV according to patient size and/or use of iterative reconstruction technique. FINDINGS: Lung bases: Clear. Solid Organs: Unremarkable liver, spleen, pancreas, adrenal glands, and kidneys. Gallbladder surgically absent without biliary duct dilatation. GI tract: Stomach is moderately distended with air-fluid level. No small bowel obstruction. There is mild mucosal thickening of the distal colon/rectum air-fluid level. There is mucosal thickening and luminal narrowing of the descending and transverse colon with mild pericolonic inflammation but no fluid collection. There is mucosal thickening limited narrowing of the remaining as the transverse colon as well with mild pericolonic inflammation but no fluid collection. Surgical changes of the cecum likely from prior appendectomy as the appendix is nonvisualized. Vascular: Mild atherosclerosis. Musculoskeletal and soft tissues: No acute fracture or aggressive appearing osseous lesion. Soft tissues unremarkable. Urinary bladder: Normal. Uterus and adnexa: Uterus surgically absent. Other: None. IMPRESSION: 1. Likely infectious versus inflammatory colitis diffusely throughout the colon. No pericolonic fluid collection or intra-abdominal free air. 2. Other findings as above. Electronically signed by: Anton Linares MD 03/14/2020 11:06 AM CDT
[2020-03-14] MEDS ORDERED: KETOROLAC TROMETHAMINE INJ 30 MG/ML VIAL IV ONE (11:10)
[2020-03-14] MEDS ORDERED: KCL 20 MEQ/NS 1,000 ML IVS ONE (11:17)
[2020-03-14] MEDS ORDERED: INSULIN, REG.(HUMAN) 250 UNITS in SODIUM CHL 0.9% 250ML (AVIVA) 247.5 ML IVPB SCH ×2 (11:30)
[2020-03-14] MEDS ORDERED: SODIUM CHL 0.9% 250ML (AVIVA) 250 ML IVPB ONE (11:47)
[2020-03-14] MEDS ORDERED: PROMETHAZINE HCL INJ 12.5 MG in SODIUM CHLORIDE 0.9% 50ML 50 ML IVPB ONE (12:01)
[2020-03-14] MEDS ORDERED: PROMETHAZINE HCL INJ 25 MG/ML VIAL ONE (12:04)
[2020-03-14] MEDS ORDERED: PROMETHAZINE HCL INJ 25 MG/ML VIAL IM ONE (12:05)
[2020-03-14 12:53] VITALS: BP 98/82; TEMP 98.6
--- NOTE | 2020-03-16 16:44 | RAD ---
EXAM DESCRIPTION: Chest,1 View CLINICAL HISTORY: chest pain COMPARISON: and January 2020 TECHNIQUE: AP portable chest FINDINGS: An Tashad-k-Hquu catheter seen in place on the patient's right with the distal tip in the region of the superior vena cava. The lungs are clear. The heart is within range of normal. No pleural fluid is seen. Surgical clips are seen in the right upper quadrant. IMPRESSION: An Xvjozu-e-Tkbq catheter seen in place. The chest is otherwise unremarkable. Electronically signed by: Candido Zavala MD 03/14/2020 10:00 AM CDT
== END 2020-03-14 12:38 | disposition short-term general hospital (02) ==
LOC: ER 09:18
DX: E10.10 Type 1 diabetes mellitus with ketoacidosis without coma (principal); K52.9 Noninfective gastroenteritis and colitis, unspecified; J02.0 Streptococcal pharyngitis; R07.9 Chest pain, unspecified; R00.0 Tachycardia, unspecified; J45.909 Unspecified asthma, uncomplicated; F41.9 Anxiety disorder, unspecified; G89.29 Other chronic pain; I10 Essential (primary) hypertension; K21.9 Gastro-esophageal reflux disease without esophagitis; R56.9 Unspecified convulsions; Z87.891 Personal history of nicotine dependence; Z79.4 Long term (current) use of insulin; Z79.899 Other long term (current) drug therapy; Z88.8 Allergy status to other drugs, medicaments and biological substances; Z91.013 Allergy to seafood
CPT/HCPCS: 36415; 36600; 71045; 74177; 80053; 81001; 81025; 82009; 82803; 82805; 83605; 83690; 83880; 84484; 85025; 87040; 87880; 93005; J1885; J2405; J2543; J2550; J3480; J7030; J7050

== ENCOUNTER 2020-03-17 18:26 | Emergency (ER) | payer MEDICARE, MEDICAID ==
[2020-03-17] MEDS ORDERED: MORPHINE SULFATE INJ 10 MG/ML VIAL IV ONE ×3 (18:45→22:07)
[2020-03-17] MEDS ORDERED: SODIUM CHLORIDE 0.9% 1000ML 1,000 ML IVS PRN ×2 (18:45→20:02)
[2020-03-17 18:51] VITALS: TEMP 97.4
[2020-03-17] MEDS ORDERED: HYDROmorphone HCL INJ 2 MG/ML VIAL IV ONE (18:52)
--- NOTE | 2020-03-17 18:56 | ED.PDOC ---
History of Present Illness - General Stated Complaint: my stomach hurts Time Seen by Provider: 03/17/20 18:37 - History of Present Illness Initial Comments: Patient is a well known 44 yo F that was discharged from the hospital last night after she was admitted for possible DKA and colitis. Was told she had pyelonephritis. Comes in with worsening abdominal pain. no chest pain or shortness of breath. no v. + loose stool. called her pcp, patient states she was told to come to ED. States she took a pain pill but was not able to keep it down Review of Systems - Review of Systems Constitutional: Denies: fever, malaise EENTM: Denies: blurred vision Respiratory: Denies: cough, orthopnea, short of breath Cardiology: Denies: chest pain, edema, palpitations, syncope Gastrointestinal/Abdominal: States: abdominal pain, diarrhea, nausea. Denies: constipation, vomiting Genitourinary: Denies: discharge, dysuria, frequency, hematuria Musculoskeletal: Denies: back pain, joint pain, joint swelling, muscle pain, muscle stiffness Skin: Denies: change in color, rash Neurological: Denies: headache, numbness, paresthesia, pre-existing deficit, tingling, tremors Endocrine: Denies: excessive sweating Hematologic/Lymphatic: Denies: anemia, blood clots, easy bleeding Past Medical History (General) - Patient Medical History Hx Seizures: Yes Hx Stroke: No Hx Dementia: No Hx Asthma: Yes Hx of COPD: No Hx Cardiac Disorders: No Hx Congestive Heart Failure: No Hx Pacemaker: No Hx Hypertension: Yes Hx Thyroid Disease: No Hx Diabetes: Yes Hx Gastroesophageal Reflux: Yes Hx Renal Disease: No Hx Cancer: No Hx of HIV: No Hx Hepatitis C: No Hx MRSA: Yes - 2 yrs ago. MRSA Source:: Blood - Vaccination History Hx Tetanus, Diphtheria Vaccination: No Hx Influenza Vaccination: Yes Hx Pneumococcal Vaccination: Yes - Social History Hx Tobacco Use: Yes Hx Chewing Tobacco Use: No Hx Alcohol Use: No Hx Substance Use: Yes Hx Substance Use Treatment: No Hx Depression: No Hx Physical Abuse: No Hx Emotional Abuse: No Hx Suspected Abuse: No - Female History Hx Last Menstrual Period: 11/05/11 Patient : No - Denies Family Medical History - Family History Mother Family History: No Known Name: April Age (years): 70 Living Status: Still Living Hx Family Asthma: No Hx Family Congestive Heart Failure: No Hx Family Hypertension: No Hx Family Stroke: No Hx Cardiac Disease: No Hx Family Diabetes: No Hx Family Cancer: Yes - skin cancer Hx Family;Other: thyroid problems and seizures Father Family History: No Known Name: Marlon Age (years): 68 Living Status: Still Living Hx Family Asthma: - Sister Hx Family Congestive Heart Failure: No Hx Family Hypertension: Yes Hx Family Stroke: No Hx Cardiac Disease: Yes Hx Family Diabetes: No Age of Onset (years of age): 32 Hx Family Cancer: - Grandmother Lymphoma Physical Exam - Physical Exam General Appearance: Alert, Comfortable, No apparent distress Eyes, Ears, Nose, Throat Exam: PERRL/EOMI, normal ENT inspection Neck: non-tender, full range of motion, supple, normal inspection, carotid bruit Respiratory: chest non-tender, lungs clear, normal breath sounds, no respiratory distress, no accessory muscle use Cardiovascular/Chest: normal peripheral pulses, regular rate, rhythm, no edema, no gallop, no JVD, no murmur Peripheral Pulses: 2+ Gastrointestinal/Abdominal: normal bowel sounds, non tender, soft, no organomegaly, no pulsatile mass Rectal Exam: normal exam, normal rectal tone, heme negative stool Back Exam: normal inspection, no CVA tenderness, no vertebral tenderness Extremity: normal range of motion, non-tender, normal inspection Neurologic: education paraprofessional II-XII nml as tested, no motor/sensory deficits, alert, normal mood/affect, oriented x 3 Skin Exam: normal color, warm/dry Special Observations: No evidence of discomfort, Using mobile device Progress - Progress Progress: 03/17/20 18:57 Patient explains that dilaudid works best. I explained at length that she has had over 8 [address] scans in the past 6 months. I explained this increases her risk for cancer; however, if her pain is truly worse than before and she had evidence of pathology previously a CT scan is indicated to make sure she has no evidence of perforation. She understands and agrees to CT scan. ekg shows hr 81, nsr, no evidence of ischemia. 03/17/20 22:19 CT shows no acute pathology. She is asking for additional pain medication, but also talking on phone about groceries. Mild anemia noted on blood work. most likely from IVF, recent hospitalization. feccal occult negative. vss no evidence of dka. after bolus glucose 313. patient declines 10 units of subq insulin states she will just take her home medication when she gets home. no evidence of dka The data reviewed when caring for this patient included: nurse notes, prior records, etc. The history and assessments from nurses notes were reviewed and considered, and the patient's home medication list was also reviewed and considered. My assessment and the results of testing completed here in the ED were discussed with the patient/family. All questions were answered, and they express understanding of my assessment and the plan. They have been instructed to return if their symptoms worsen, and have been asked to follow up with their primary care physician to recheck today's presenting complaint. abdominal warning precautions provided. patient acknowledge understanding. 03/17/20 23:03 - Results/Orders Results/Orders: 03/17/20 18:45 Sodium Chloride 0.9% 1000ML [Ns 1000 ml] 1,000 ml IVS STAT 03/17/20 18:46 Hold Metformin x 48Hrs [id number] 03/17/20 19:45 EKG STAT 03/17/20 20:02 Sodium Chloride 0.9% 1000ML [Ns 1000 ml] 1,000 ml IVS STAT 03/17/20 20:30 EKG STAT 03/17/20 22:44 Discharge Stat Laboratory Results WBC 5.2 K/mm3 (4.8-10.8) 03/17/20 19:13 RBC 4.10 M/mm3 (4.20-5.40) L 03/17/20 19:13 Hgb 10.9 gm/dL (12.0-16.0) L 03/17/20 19:13 Hct 32.8 % (36.0-47.0) L 03/17/20 19:13 MCV 80.0 fl (81.0-99.0) L 03/17/20 19:13 MCH 26.7 pg (27.0-31.0) L 03/17/20 19:13 MCHC 33.4 g/dL (33.0-37.0) 03/17/20 19:13 RDW 14.1 % (11.5-14.5) 03/17/20 19:13 Plt Count 242 K/mm3 (130-400) 03/17/20 19:13 MPV 8.4 fl (7.40-10.4) 03/17/20 19:13 Absolute Neuts (auto) 3.10 K/uL (1.8-6.8) 03/17/20 19:13 Absolute Lymphs (auto) 1.50 K/uL (1.0-3.4) 03/17/20 19:13 Absolute Monos (auto) 0.30 K/uL (0.2-0.8) 03/17/20 19:13 Absolute Eos (auto) 0.10 K/uL (0.0-0.4) 03/17/20 19:13 Absolute Basos (auto) 0.00 K/uL (0.0-0.1) 03/17/20 19:13 Neutrophils % 60.7 % (42.0-78.0) 03/17/20 19:13 Lymphocytes % 29.4 % (20.0-50.0) 03/17/20 19:13 Monocytes % 6.7 % (2.0-9.0) 03/17/20 19:13 Eosinophils % 2.7 % (1.0-5.0) 03/17/20 19:13 Basophils % 0.5 % (0.0-2.0) 03/17/20 19:13 Sodium 133 mmol/L (135-145) L 03/17/20 19:13 Potassium 4.4 mmol/L (3.6-5.0) 03/17/20 19:13 Chloride 101 mmol/L (101-111) 03/17/20 19:13 Carbon Dioxide 23 mmol/L (21-31) 03/17/20 19:13 Anion Gap 13.4 (12-18) 03/17/20 19:13 BUN 14 mg/dL (7-18) 03/17/20 19:13 Creatinine 0.63 mg/dL (0.6-1.3) 03/17/20 19:13 BUN/Creatinine Ratio 22.2 (10-20) H 03/17/20 19:13 POC Glucose 313 mg/dL (70-105) H 03/17/20 21:59 Random Glucose 492 mg/dL (70-105) H* 03/17/20 19:13 Serum Osmolality 289.2 mOsm/L (275-295) 03/17/20 19:13 Calcium 9.1 mg/dL (8.4-10.2) 03/17/20 19:13 Total Bilirubin 0.4 mg/dL (0.2-1.0) 03/17/20 19:13 AST 18 IU/L (10-42) 03/17/20 19:13 ALT 18 IU/L (10-60) 03/17/20 19:13 Alkaline Phosphatase 125 IU/L (42-121) H 03/17/20 19:13 Troponin I < 0.02 ng/mL (0.01-0.05) 03/17/20 19:10 Serum Total Protein 6.6 gm/dL (6.4-8.2) 03/17/20 19:13 Albumin 3.9 g/dl (3.2-5.5) 03/17/20 19:13 Globulin 2.7 gm/dL (2.3-3.5) 03/17/20 19:13 Albumin/Globulin Ratio 1.4 (1.1-1.9) 03/17/20 19:13 Lipase 31 U/L (22-51) D 03/17/20 19:13 Urine Color Yellow (Yellow) 03/17/20 19:13 Urine Appearance Clear (Clear) 03/17/20 19:13 Urine pH 7.0 (4.5-7.8) 03/17/20 19:13 Ur Specific Smiley 1.015 (1.005-1.030) 03/17/20 19:13 Urine Protein Negative mg/dL 03/17/20 19:13 Urine Glucose (UA) 500 mg/dL (Negative) H 03/17/20 19:13 Urine Ketones Negative mg/dL (NEGATIVE) 03/17/20 19:13 Urine Blood Trace-intact (Negative) H 03/17/20 19:13 Urine Nitrite Negative 03/17/20 19:13 Urine Bilirubin Negative (NEGATIVE) 03/17/20 19:13 Urine Urobilinogen 0.2 mg/dL (0.2-1.0) 03/17/20 19:13 Ur Leukocyte Esterase Negative (Negative) 03/17/20 19:13 Urine RBC 0-1 /hpf 03/17/20 19:13 Urine WBC 0 /hpf 03/17/20 19:13 Ur Epithelial Cells 3-5 /hpf 03/17/20 19:13 Urine Bacteria 0 03/17/20 19:13 Stool Occult Blood Negative (NEGATIVE) 03/17/20 22:39 Departure - Departure Clinical Impression: Hyperglycemia due to type 1 diabetes mellitus Abdominal pain Qualifiers: Abdominal location: unspecified location Qualified Code(s): R10.9 - Unspecified abdominal pain Disposition: Discharge to Home or Self Care Condition: Fair Instructions: Acute Abdomen (Belly Pain), Adult (DC) Referrals: JUSTINO MARQUEZ IV, MAIL DIST[employer]ION [employer]HEME EXAMINER [Primary Care Provider] - 1-2 Days Home Medications: Ambulatory Orders Mometasone Furoate [Elocon] 0.1 % TOP DAILY PRN 11/07/17 Epinephrine [Epipen 2-Mikael] 0.3 mg IJ ONCE PRN #1 pack 03/26/18 Buspirone HCl 30 mg PO BID 10/23/18 Diazepam 5 mg PO TID 02/21/19 Gabapentin 300 mg PO TID 11/11/19 Hydrocodone-Acetaminophen [[place] 7.5-325 mg] 1 tab PO TID 11/11/19 Vilazodone HCl [Viibryd] 40 mg PO DAILY 11/11/19 tiZANidine [Zanaflex] 12 mg PO Q8H PRN 11/11/19 Ondansetron Odt [Zofran Odt] 8 mg PO Q8H PRN #12 tab 12/25/19 Albuterol Sulfate [Proair Hfa] 2 puff INH Q6H PRN 01/01/20 Azelastine HCl [Azelastine Hydrochloride] 0.1 % INH PRN PRN 01/01/20 Esomeprazole Magnesium [Nexium] 40 mg PO PRN 01/01/20 Glucagon [Baqsimi One Pack] 3 mg NA PRN 01/01/20 Hydroxyzine HCl [Hydroxyzine Hydrochloride] 50 mg PO QID 01/01/20 Insulin Glargine [Lantus Solostar] 10 unit SC BEDTIME 01/01/20 Insulin Glargine [Lantus Solostar] 25 unit SC DAILY 01/01/20 Mometasone Furoate 0.1 % TOP PRN 01/01/20 Naloxone HCl [Narcan] 4 mg NA PRN 01/01/20 Promethazine Tab [Phenergan Tablet] 25 mg PO .Q4H PRN 01/01/20 Salmeterol Xinafoate [Serevent Diskus] 50 mcg IN PRN 01/01/20 Triamcinolone 0.5% Cream [Kenalog 0.5% Cream] 1 applic TOP PRN 01/01/20 Promethazine Supp [Phenergan Suppository] 12.5 mg [place] Q6H PRN #15 sup 02/20/20
[2020-03-17] MEDS ORDERED: ONDANSETRON INJ 4 MG/2 ML VIAL IV ONE (20:03)
--- NOTE | 2020-03-17 20:24 | CT ---
EXAM: Abdomen/Pelvis w/Contrast CLINICAL INDICATION: Abdominal pain. COMPARISON: 03/14/2020 TECHNIQUE: The CT scan was done using contiguous axial 5 mm postcontrast sections through the abdomen and pelvis including IV contrast. This exam was performed according to our departmental dose-optimization program, which includes automated exposure control, adjustment of the mA and/or kV according to patient size and/or use of iterative reconstruction technique. FINDINGS: The visualized portions of the lung bases are clear. The gallbladder is surgically absent. The liver, spleen, adrenal glands, pancreas, and kidneys are unremarkable. The aorta contains atherosclerotic calcifications without evidence of aneurysm. No dilated loops of small bowel are identified. The appendix is not identified. There is no free air, free fluid, or abscess. IMPRESSION: No evidence of an acute intra-abdominal process. Electronically signed by: Hakeem Colon MD 03/17/2020 8:22 PM CDT
--- NOTE | 2020-03-17 20:31 | RAD ---
EXAM:Chest,2 Views CLINICAL INDICATION: Chest pain COMPARISON: 03/14/2020 FINDINGS:Two views of the chest were obtained. The heart size is normal. There is a right internal jugular port with its tip in the SVC. The pulmonary vascularity is unremarkable. The lungs are clear. There is no consolidation, infiltrate, pleural effusion, or pneumothorax. IMPRESSION: No evidence of active pulmonary disease. Electronically signed by: Hakeem Colon MD 03/17/2020 8:30 PM CDT
[2020-03-17] MEDS ORDERED: INSULIN LISPRO 100 UNITS/ML PEN SUBCU ONE (20:53)
[2020-03-17 21:41] VITALS: O2SAT 99
[2020-03-17] MEDS ORDERED: HEPARIN SODIUM 100 U/ML 5 ML SYG IV ONE (22:20)
[2020-03-17 22:25] VITALS: BP 126/74
== END 2020-03-17 22:25 | disposition home or self-care (01) ==
LOC: ER 18:26
DX: R10.9 Unspecified abdominal pain (principal); E10.65 Type 1 diabetes mellitus with hyperglycemia; N12 Tubulo-interstitial nephritis, not specified as acute or chronic; I10 Essential (primary) hypertension; K21.9 Gastro-esophageal reflux disease without esophagitis; J45.909 Unspecified asthma, uncomplicated; R56.9 Unspecified convulsions; Z79.4 Long term (current) use of insulin; Z79.899 Other long term (current) drug therapy; Z87.891 Personal history of nicotine dependence
CPT/HCPCS: 36415; 71046; 74177; 80053; 81001; 82270; 82948; 83690; 84484; 85025; 93005; J1642; J2270; J2405; J7030

== ENCOUNTER 2020-03-18 18:33 | Emergency (ER) | payer MEDICARE, MEDICAID ==
[2020-03-18] MEDS ORDERED: SODIUM CHLORIDE 0.9% 1000ML 1,000 ML ONE (19:04)
[2020-03-18] MEDS ORDERED: SODIUM CHLORIDE 0.9% 1000ML 1,000 ML IVS ONE ×3 (19:12→23:01)
[2020-03-18] MEDS ORDERED: INSULIN, REG.(HUMAN) 100 U/ML VIAL IV ONE ×3 (19:19→23:10)
[2020-03-18] MEDS ORDERED: ONDANSETRON INJ 4 MG/2 ML VIAL IV ONE (19:30)
--- NOTE | 2020-03-18 20:32 | ED.PDOC ---
History of Present Illness - General Chief Complaint: Abdominal Pain Stated Complaint: Abdominal, High blood sugar Time Seen by Provider: 03/18/20 19:07 Source: patient, RN notes reviewed, Vital Signs reviewed, old records Exam Limitations: no limitations - History of Present Illness Initial Comments: Patient is 44-year-old white female who is well-known to department who presents with complaints of elevated blood sugar, nausea and vomiting as well as abdominal pain. Patient has been seen here less than 24 hours ago for the same problems and had a complete work-up and was discharged home. Patient states her abdominal pain is waxing and waning in nature. Severe. Stabbing in nature. Not like her kidney stones. The only thing that makes her bed a is narcotic pain medicine. Timing/Duration: 24 hours, getting worse Severity: severe Improving Factors: medication - Narcotic pain medicine Worsening Factors: nothing Associated Symptoms: loss of appetite, malaise Allergies/Adverse Reactions: Allergies Fish Allergy Allergy (Verified 03/18/20 18:55) Ketorolac Tromethamine [From Toradol] Adverse Reaction (Verified 03/18/20 18:55) Metoclopramide [From Reglan] Adverse Reaction (Verified 03/18/20 18:55) peanut Allergy (Severe, Uncoded 03/18/20 18:55) Home Medications: Ambulatory Orders Mometasone Furoate [Elocon] 0.1 % TOP DAILY PRN 11/07/17 Epinephrine [Epipen 2-Mikael] 0.3 mg IJ ONCE PRN #1 pack 03/26/18 Buspirone HCl 30 mg PO BID 10/23/18 Diazepam 5 mg PO TID 02/21/19 Gabapentin 300 mg PO TID 11/11/19 Hydrocodone-Acetaminophen [[place] 7.5-325 mg] 1 tab PO TID 11/11/19 Vilazodone HCl [Viibryd] 40 mg PO DAILY 11/11/19 tiZANidine [Zanaflex] 12 mg PO Q8H PRN 11/11/19 Ondansetron Odt [Zofran Odt] 8 mg PO Q8H PRN #12 tab 12/25/19 Albuterol Sulfate [Proair Hfa] 2 puff INH Q6H PRN 01/01/20 Azelastine HCl [Azelastine Hydrochloride] 0.1 % INH PRN PRN 01/01/20 Esomeprazole Magnesium [Nexium] 40 mg PO PRN 01/01/20 Glucagon [Baqsimi One Pack] 3 mg NA PRN 01/01/20 Hydroxyzine HCl [Hydroxyzine Hydrochloride] 50 mg PO QID 01/01/20 Insulin Glargine [Lantus Solostar] 10 unit SC BEDTIME 01/01/20 Insulin Glargine [Lantus Solostar] 25 unit SC DAILY 01/01/20 Mometasone Furoate 0.1 % TOP PRN 01/01/20 Naloxone HCl [Narcan] 4 mg NA PRN 01/01/20 Promethazine Tab [Phenergan Tablet] 25 mg PO .Q4H PRN 01/01/20 Salmeterol Xinafoate [Serevent Diskus] 50 mcg IN PRN 01/01/20 Triamcinolone 0.5% Cream [Kenalog 0.5% Cream] 1 applic TOP PRN 01/01/20 Promethazine Supp [Phenergan Suppository] 12.5 mg ND Q6H PRN #15 sup 02/20/20 Review of Systems - Review of Systems Constitutional: States: see HPI, chills, malaise, weakness. Denies: fever EENTM: States: no symptoms reported. Denies: eye pain, blurred vision, double vision Respiratory: States: no symptoms reported, see HPI. Denies: cough, short of breath, stridor, wheezing Cardiology: States: no symptoms reported. Denies: chest pain, palpitations, syncope Gastrointestinal/Abdominal: States: see HPI, abdominal pain, nausea. Denies: diarrhea, vomiting Genitourinary: States: no symptoms reported. Denies: dysuria, frequency, hematuria Musculoskeletal: States: no symptoms reported. Denies: back pain, joint pain, neck pain Skin: States: no symptoms reported. Denies: change in color, rash Neurological: States: anxiety, weakness. Denies: tingling, tremors Endocrine: States: increased hunger, increased thirst, increased urine Hematologic/Lymphatic: States: no symptoms reported All other Systems: No Change from Baseline Past Medical History (General) - Patient Medical History Hx Seizures: Yes Hx Stroke: No Hx Dementia: No Hx Asthma: Yes Hx of COPD: No Hx Cardiac Disorders: No Hx Congestive Heart Failure: No Hx Pacemaker: No Hx Hypertension: Yes Hx Thyroid Disease: No Hx Diabetes: Yes Hx Gastroesophageal Reflux: Yes Hx Renal Disease: No Hx Cancer: No Hx of HIV: No Hx Hepatitis C: No Hx MRSA: Yes - 2 yrs ago. MRSA Source:: Blood - Vaccination History Hx Tetanus, Diphtheria Vaccination: Yes Hx Influenza Vaccination: Yes Hx Pneumococcal Vaccination: Yes - Social History Hx Tobacco Use: Yes Hx Chewing Tobacco Use: No Hx Alcohol Use: No Hx Substance Use: Yes Hx Substance Use Treatment: No Hx Depression: No Hx Physical Abuse: No Hx Emotional Abuse: No Hx Suspected Abuse: No - Female History Hx Last Menstrual Period: 11/05/11 Patient : No - Denies Family Medical History - Family History Mother Family History: No Known Name: April Age (years): 70 Living Status: Still Living Hx Family Asthma: No Hx Family Congestive Heart Failure: No Hx Family Hypertension: No Hx Family Stroke: No Hx Cardiac Disease: No Hx Family Diabetes: No Hx Family Cancer: Yes - skin cancer Hx Family;Other: thyroid problems and seizures Father Family History: No Known Name: Marlon Age (years): 68 Living Status: Still Living Hx Family Asthma: - Sister Hx Family Congestive Heart Failure: No Hx Family Hypertension: Yes Hx Family Stroke: No Hx Cardiac Disease: Yes Hx Family Diabetes: No Age of Onset (years of age): 32 Hx Family Cancer: - Grandmother Lymphoma Physical Exam - Physical Exam General Appearance: Agitated, Alert, Anxious, Obvious distress, Well Developed, Well Nourished Eye Exam: bilateral normal Ears, Nose, Throat: hearing grossly normal, normal ENT inspection, normal pharynx - Except for dry mucous membranes Neck: non-tender, full range of motion, supple Respiratory: chest non-tender, lungs clear, normal breath sounds, respiratory distress - Mild tachypnea Cardiovascular/Chest: normal peripheral pulses, no edema, no gallop, no murmur, tachycardia Peripheral Pulses: radial,right: 2+, radial,left: 2+ Gastrointestinal/Abdominal: normal bowel sounds, non tender, soft Back Exam: normal inspection, no CVA tenderness, no vertebral tenderness Extremity: normal range of motion, non-tender, normal inspection Neurologic: assistive technology specialist II-XII nml as tested, no motor/sensory deficits, alert, normal mood/affect, oriented x 3 Skin Exam: normal color, warm/dry Lymphatic: no adenopathy Progress - Progress Progress: Differential diagnosis: DKA, dehydration, drug-seeking behavior, kidney stone among others. 03/18/20 21:58 Patient with severe dehydration and significant hyperglycemia. Offered admission to the hospital here but patient refused when she heard that Beverly Covarrubias NP was hospitalist on duty. Offered admission at another hospital and patient is refusing if she is not in DKA. Currently patient does not appear to be in DKA via her labs. Nor does she smell like ketones. Patient has received 2 L of fluid at this point and 20 units of insulin. We will recheck her sugars after the third bag of fluid and see where her blood sugar is. As I stated patient refuses admission at this time. 03/18/20 22:01 Patient continues to request narcotic pain medications. She states her abdominal pain is horrible. I have explained to patient that this is not going to help her abdominal pain as it worsens her gastroparesis. Patient states that she will leave and go get her pain medicines at home and then come back for further treatment. I have explained to the patient she may not leave or she wi ll have to start all over from the beginning. Patient I have agreed that she will have a single dose of Stadol IV and will receive no further pain medication nor was she received Phenergan IV. 03/18/20 23:14 Pt's blood sugar is minimally improved. Will give Insulin 10 u ivp and 1 L saline. If not markely improved will try to transfer for admission. 03/19/20 00:16 Patient's repeat D stick is now 288. Patient has had a total of 30 units of IV insulin. Her initial dose was at 1919 hrs., the second dose was at 2213 hrs. and the final dose of IV regular insulin was at 2319 hrs. Patient additionally was given some subcu Levemir, her night dose of insulin at 2345 hrs. Patient understands that she is received multiple doses of insulin and will need to eat a meal before she goes to bed. Patient voices understanding and states that she will go get food immediately upon discharge. Both I and the nurse have strongly stressed to her the necessity of getting something to eat so she does not bottom her sugars out. Plan discharge home at this time with follow-up PCP. Hao Zambrano M.D. #[id number] - Results/Orders Results/Orders: 03/18/20 21:52 BASIC METABOLIC PANEL Stat 03/18/20 21:57 BNP [B-TYPE NATRIURETIC PEPTIDE/BNP] Stat Laboratory Results - last 24 hr 03/18/20 03/18/20 03/18/20 19:00 19:21 19:21 WBC 5.3 RBC 4.52 Hgb 12.2 Hct 37.6 MCV 83.2 MCH 26.9 L MCHC 32.4 L RDW 14.3 Plt Count 253 MPV 9.0 Absolute Neuts (auto) 3.10 Absolute Lymphs (auto) 1.60 Absolute Monos (auto) 0.40 Absolute Eos (auto) 0.10 Absolute Basos (auto) 0.00 Neutrophils % 58.8 Lymphocytes % 30.9 Monocytes % 6.8 Eosinophils % 2.8 Basophils % 0.7 pCO2 pO2 HCO3 ABG pH ABG O2 Saturation ABG Base Excess ABG Deoxyhemoglobin Oxyhemoglobin % Carboxyhemoglobin % Methemoglobin % Sat Calc Total Hemoglobin Sodium 135 Potassium 4.2 Chloride 98 L Carbon Dioxide 24 Anion Gap 17.2 BUN 17 Creatinine 0.82 BUN/Creatinine Ratio 20.7 H POC Glucose Random Glucose 757 H* Serum Osmolality Not Reportable Calcium 9.1 Total Bilirubin 0.3 AST 24 ALT 19 Alkaline Phosphatase 120 B-Natriuretic Peptide < 15.0 Serum Total Protein 7.0 Albumin 3.9 Globulin 3.1 Albumin/Globulin Ratio 1.3 03/18/20 03/18/20 03/18/20 20:17 20:31 20:34 WBC RBC Hgb Hct MCV MCH MCHC RDW Plt Count MPV Absolute Neuts (auto) Absolute Lymphs (auto) Absolute Monos (auto) Absolute Eos (auto) Absolute Basos (auto) Neutrophils % Lymphocytes % Monocytes % Eosinophils % Basophils % pCO2 41 pO2 87 HCO3 24.3 ABG pH 7.382 ABG O2 Saturation 97.6 ABG Base Excess -0.8 ABG Deoxyhemoglobin 2.3 Oxyhemoglobin % 91.8 L Carboxyhemoglobin % 5.4 H Methemoglobin % Sat 0.5 Calc Total Hemoglobin 11.3 L Sodium Potassium Chloride Carbon Dioxide Anion Gap BUN Creatinine BUN/Creatinine Ratio POC Glucose > 400 H* Random Glucose Cancelled Serum Osmolality Calcium Total Bilirubin AST ALT Alkaline Phosphatase B-Natriuretic Peptide Serum Total Protein Albumin Globulin Albumin/Globulin Ratio 03/18/20 03/18/20 21:19 21:30 WBC RBC Hgb Hct MCV MCH MCHC RDW Plt Count MPV Absolute Neuts (auto) Absolute Lymphs (auto) Absolute Monos (auto) Absolute Eos (auto) Absolute Basos (auto) Neutrophils % Lymphocytes % Monocytes % Eosinophils % Basophils % pCO2 pO2 HCO3 ABG pH ABG O2 Saturation ABG Base Excess ABG Deoxyhemoglobin Oxyhemoglobin % Carboxyhemoglobin % Methemoglobin % Sat Calc Total Hemoglobin Sodium Potassium Chloride Carbon Dioxide Anion Gap BUN Creatinine BUN/Creatinine Ratio POC Glucose > 400 H* Random Glucose Cancelled Serum Osmolality Calcium Total Bilirubin AST ALT Alkaline Phosphatase B-Natriuretic Peptide Serum Total Protein Albumin Globulin Albumin/Globulin Ratio - EKG/XRAY/CT CT Ordered: No CT Interpretation Call Back: No Departure - Departure Clinical Impression: Hyperglycemia without ketosis, Gastroparesis Time of Disposition: 00:20 Disposition: Discharge to Home or Self Care Condition: Fair Departure Forms: ED Discharge - Pt. Copy, Patient Portal Self Enrollment Instructions: DI for Abdominal Pain-Adult, Gastroparesis (Delayed Gastric Emptying) (DC), Acute Abdomen (Belly Pain), Adult (DC), Hyperglycemia, Adult (DC) Diet: diabetic diet Activity: increase activity as tolerated Referrals: JUSTINO MARQUEZ IV, LEADERSHIP INTERN [Primary Care Provider] - 1-2 Weeks Home Medications: Ambulatory Orders Mometasone Furoate [Elocon] 0.1 % TOP DAILY PRN 11/07/17 Epinephrine [Epipen 2-Mikael] 0.3 mg IJ ONCE PRN #1 pack 03/26/18 Buspirone HCl 30 mg PO BID 10/23/18 Diazepam 5 mg PO TID 02/21/19 Gabapentin 300 mg PO TID 11/11/19 Hydrocodone-Acetaminophen [[place] 7.5-325 mg] 1 tab PO TID 11/11/19 Vilazodone HCl [Viibryd] 40 mg PO DAILY 11/11/19 tiZANidine [Zanaflex] 12 mg PO Q8H PRN 11/11/19 Ondansetron Odt [Zofran Odt] 8 mg PO Q8H PRN #12 tab 12/25/19 Albuterol Sulfate [Proair Hfa] 2 puff INH Q6H PRN 01/01/20 Azelastine HCl [Azelastine Hydrochloride] 0.1 % INH PRN PRN 01/01/20 Esomeprazole Magnesium [Nexium] 40 mg PO PRN 01/01/20 Glucagon [Baqsimi One Pack] 3 mg NA PRN 01/01/20 Hydroxyzine HCl [Hydroxyzine Hydrochloride] 50 mg PO QID 01/01/20 Insulin Glargine [Lantus Solostar] 10 unit SC BEDTIME 01/01/20 Insulin Glargine [Lantus Solostar] 25 unit SC DAILY 01/01/20 Mometasone Furoate 0.1 % TOP PRN 01/01/20 Naloxone HCl [Narcan] 4 mg NA PRN 01/01/20 Promethazine Tab [Phenergan Tablet] 25 mg PO .Q4H PRN 01/01/20 Salmeterol Xinafoate [Serevent Diskus] 50 mcg IN PRN 01/01/20 Triamcinolone 0.5% Cream [Kenalog 0.5% Cream] 1 applic TOP PRN 01/01/20 Promethazine Supp [Phenergan Suppository] 12.5 mg ND Q6H PRN #15 sup 02/20/20
[2020-03-18] MEDS ORDERED: BUTORPHANOL TARTRATE 2 MG/ML VIAL IV ONE (21:14)
[2020-03-18] MEDS ORDERED: INSULIN DETEMIR 100 UNITS/ML PEN SUBCU ONE (23:35)
[2020-03-19 00:01] VITALS: BP 109/72; O2SAT 96
[2020-03-19] MEDS ORDERED: HEPARIN SODIUM 100 U/ML 5 ML SYG IV ONE (00:17)
[2020-03-19 00:21] VITALS: TEMP 98.2
== END 2020-03-19 00:26 | disposition home or self-care (01) ==
LOC: ER 18:33
DX: E11.43 Type 2 diabetes mellitus with diabetic autonomic (poly)neuropathy (principal); E11.65 Type 2 diabetes mellitus with hyperglycemia; K31.84 Gastroparesis; R35.0 Frequency of micturition; R56.9 Unspecified convulsions; J45.909 Unspecified asthma, uncomplicated; I10 Essential (primary) hypertension; K21.9 Gastro-esophageal reflux disease without esophagitis; Z87.891 Personal history of nicotine dependence; Z79.4 Long term (current) use of insulin; Z79.899 Other long term (current) drug therapy; Z88.8 Allergy status to other drugs, medicaments and biological substances; Z91.013 Allergy to seafood
CPT/HCPCS: 36415; 36416; 36600; 80048; 80053; 82803; 82805; 82948; 83880; 85025; J0595; J1642; J1815; J2060; J2405; J7030

== ENCOUNTER 2020-03-20 16:13 | Emergency (ER) | payer MEDICARE, MEDICAID ==
[2020-03-20] MEDS ORDERED: SODIUM CHLORIDE 0.9% 1000ML 1,000 ML IVS ONE (16:33)
--- NOTE | 2020-03-20 16:36 | ED.PDOC ---
History of Present Illness - General Chief Complaint: Abdominal Pain Time Seen by Provider: 03/20/20 16:20 Information Source: patient Exam Limitations: no limitations Additional Information: The patient is a 44 year old who is very well known to this Emergency Department, with more than 20 visits during the past year. She has a past medical history significant for poorly controlled type 1 diabetes, frequent admissions for DKA, chronic gastroparesis, COPD, and chronic pain. She presents to the Emergency Department requesting pain medications for abdominal pain. She states that she had strep in her urine during her last visit and now she is having lower abdominal pain and blood in her urine. She has notably been to this Emergency Room at least twice this week for similar complaints. No fevers, no other complaints at this time. Review of Systems - Review of Systems Constitutional: States: malaise EENTM: States: no symptoms reported Respiratory: States: no symptoms reported Cardiology: States: no symptoms reported Gastrointestinal/Abdominal: States: abdominal pain, nausea, vomiting Genitourinary: States: hematuria Musculoskeletal: States: muscle pain Skin: States: dryness Neurological: States: anxiety, weakness Endocrine: States: no symptoms reported Hematologic/Lymphatic: States: no symptoms reported All other Systems: Reviewed and Negative Past Medical History (General) - Patient Medical History Hx Seizures: Yes Hx Stroke: No Hx Dementia: No Hx Asthma: Yes Hx of COPD: No Hx Cardiac Disorders: No Hx Congestive Heart Failure: No Hx Pacemaker: No Hx Hypertension: Yes Hx Thyroid Disease: No Hx Diabetes: Yes Hx Gastroesophageal Reflux: Yes Hx Renal Disease: No Hx Cancer: No Hx of HIV: No Hx Hepatitis C: No Hx MRSA: Yes - 2 yrs ago. MRSA Source:: Blood - Vaccination History Hx Tetanus, Diphtheria Vaccination: Yes Hx Influenza Vaccination: Yes Hx Pneumococcal Vaccination: Yes - Social History Hx Tobacco Use: Yes Hx Chewing Tobacco Use: No Hx Alcohol Use: No Hx Substance Use: Yes Hx Substance Use Treatment: No Hx Depression: No Hx Physical Abuse: No Hx Emotional Abuse: No Hx Suspected Abuse: No - Female History Hx Last Menstrual Period: 11/05/11 Patient : No - Denies Family Medical History - Family History Mother Family History: No Known Name: April Age (years): 70 Living Status: Still Living Hx Family Asthma: No Hx Family Congestive Heart Failure: No Hx Family Hypertension: No Hx Family Stroke: No Hx Cardiac Disease: No Hx Family Diabetes: No Hx Family Cancer: Yes - skin cancer Hx Family;Other: thyroid problems and seizures Father Family History: No Known Name: Marlon Age (years): 68 Living Status: Still Living Hx Family Asthma: - Sister Hx Family Congestive Heart Failure: No Hx Family Hypertension: Yes Hx Family Stroke: No Hx Cardiac Disease: Yes Hx Family Diabetes: No Age of Onset (years of age): 32 Hx Family Cancer: - Grandmother Lymphoma Physical Exam - Physical Exam General Appearance: Anxious, No apparent distress Eyes, Ears, Nose, Throat Exam: normal ENT inspection Neck: non-tender, full range of motion Respiratory: no respiratory distress, no accessory muscle use Cardiovascular/Chest: regular rate, rhythm Gastrointestinal/Abdominal: soft, tenderness - mild, diffuse Extremity: non-tender, no pedal edema Neurologic: no motor/sensory deficits, alert, oriented x 3, depressed affect Skin Exam: rash - dry Progress - Progress Progress: 03/20/20 16:39 Chart reviewed, this is the third visit to the ED within the past three days for similar complaints of abdominal exam. She has negative CT abdomen/pelvis three days ago that does not show any acute abnormality. Discussed performing blood/urine studies to rule out infection, DKA, electrolyte abnormalities, etc. She was offered anti-emetics and IV hydration as well. She repeatedly asked for narcotic pain medication which I explained I would be unable to give at this point due to worsening of her gastroparesis and chronic pain. I have offered alternative medications including non-narcotics and she has either refused or claimed allergy to anything except for morphine and/or dilaudid. When it was explained that we would be unable to provide narcotic medications that she would prefer to sign out against medical advice. Risks, benefits and alternatives reviewed. She understands that she is welcome to return for continued care. Departure - Departure Clinical Impression: Chronic abdominal pain, Narcotic dependence Time of Disposition: 16:42 Disposition: Left Against Medical Advice Condition: Fair Departure Forms: ED Discharge - Pt. Copy, Patient Portal Self Enrollment Instructions: DI for Abdominal Pain-Adult, Acute Abdomen (Belly Pain), Adult (DC) Diet: resume usual diet Activity: increase activity as tolerated Referrals: JUSTINO MARQEUZ IV, FIELD SALES ASSOCIATE [Primary Care Provider] - 1-2 Weeks Home Medications: Ambulatory Orders Mometasone Furoate [Elocon] 0.1 % TOP DAILY PRN 04/05/18 Epinephrine [Epipen 2-Mikael] 0.3 mg IJ ONCE PRN #1 pack 03/26/18 Buspirone HCl 30 mg PO BID 10/23/18 Diazepam 5 mg PO TID 02/21/19 Gabapentin 300 mg PO TID 11/11/19 Hydrocodone-Acetaminophen [[place] 7.5-325 mg] 1 tab PO TID 11/11/19 Vilazodone HCl [Viibryd] 40 mg PO DAILY 11/11/19 tiZANidine [Zanaflex] 12 mg PO Q8H PRN 11/11/19 Ondansetron Odt [Zofran Odt] 8 mg PO Q8H PRN #12 tab 12/25/19 Albuterol Sulfate [Proair Hfa] 2 puff INH Q6H PRN 01/01/20 Azelastine HCl [Azelastine Hydrochloride] 0.1 % INH PRN PRN 01/01/20 Esomeprazole Magnesium [Nexium] 40 mg PO PRN 01/01/20 Glucagon [Baqsimi One Pack] 3 mg NA PRN 01/01/20 Hydroxyzine HCl [Hydroxyzine Hydrochloride] 50 mg PO QID 01/01/20 Insulin Glargine [Lantus Solostar] 10 unit SC BEDTIME 01/01/20 Insulin Glargine [Lantus Solostar] 25 unit SC DAILY 01/01/20 Mometasone Furoate 0.1 % TOP PRN 01/01/20 Naloxone HCl [Narcan] 4 mg NA PRN 01/01/20 Promethazine Tab [Phenergan Tablet] 25 mg PO .Q4H PRN 01/01/20 Salmeterol Xinafoate [Serevent Diskus] 50 mcg IN PRN 01/01/20 Triamcinolone 0.5% Cream [Kenalog 0.5% Cream] 1 applic TOP PRN 01/01/20 Promethazine Supp [Phenergan Suppository] 12.5 mg FL Q6H PRN #15 sup 02/20/20
[2020-03-20 18:57] VITALS: BP 123/76; TEMP 97; O2SAT 96
== END 2020-03-20 16:40 | disposition left against medical advice (07) ==
LOC: ER 16:13
DX: R10.30 Lower abdominal pain, unspecified (principal); G89.29 Other chronic pain; F11.20 Opioid dependence, uncomplicated; R11.2 Nausea with vomiting, unspecified; E10.9 Type 1 diabetes mellitus without complications; J44.9 Chronic obstructive pulmonary disease, unspecified; R56.9 Unspecified convulsions; I10 Essential (primary) hypertension; K21.9 Gastro-esophageal reflux disease without esophagitis; J45.909 Unspecified asthma, uncomplicated; Z53.29 Procedure and treatment not carried out because of patient's decision for other reasons; Z87.891 Personal history of nicotine dependence; Z79.4 Long term (current) use of insulin; Z79.899 Other long term (current) drug therapy

== ENCOUNTER → 2020-05-13 | Outpatient (CLI) | payer MEDICARE, MEDICAID ==
--- NOTE | 2020-05-14 20:02 | NM ---
EXAM DESCRIPTION: Gastric Emptying Study CLINICAL HISTORY: 44 years Female, GASTROPARESIS COMPARISON: None. TECHNIQUE: Following an overnight fast, the patient consumed a meal containing 2 scrambled eggs, 1 slice of toast, and 8 oz of water. The eggbeaters was labeled with 1.0 mCi of Tc99m sulfur colloid. Imaging was acquired over the abdomen at various time intervals following consumption of the meal, and gastric emptying was calculated. FINDINGS: Tc99m sulfur colloid activity from the meal is seen in the stomach, and demonstrates progressive excretion into the small bowel. Gastric emptying at: 1 hour: 65% 2 hours: 81% 4 hours: 99.3% IMPRESSION: 1. Normal gastric emptying with 99%% gastric emptying by 4 hrs. Reference: Am J Gastroenterology 2008;103:753-763. Grading for severity of delayed gastric emptying based on 4-hour value in groups related to the standard deviation of the normal results: Grade 1 (mild): 11-20% retention at 4 hrs. Grade 2 (moderate): 21-35% retention at 4 hrs. Grade 3 (severe): 36-50% retention at 4 hrs. Grade 4 (very severe): >50% retention at 4 hrs. Electronically signed by: Marlon Proctor MD 05/14/2020 8:00 PM CDT
== END ==
LOC: NM 09:00
PROVIDERS: ATTEND Surgery
DX: K31.84 Gastroparesis (principal)
CPT/HCPCS: 78264; A9541

== ENCOUNTER 2020-05-15 21:36 | Emergency (ER) | payer MEDICARE, MEDICAID ==
[2020-05-15] MEDS ORDERED: SODIUM CHLORIDE 0.9% 1000ML 1,000 ML IVS PRN (21:53)
[2020-05-15] MEDS ORDERED: PROMETHAZINE HCL INJ 12.5 MG in SODIUM CHLORIDE 0.9% 50ML 50 ML IVPB ONE (21:53)
--- NOTE | 2020-05-15 22:03 | ED.PDOC ---
History of Present Illness - General Chief Complaint: Abdominal Pain Stated Complaint: right abdomen pain, elevated BS Time Seen by Provider: 05/15/20 21:38 Information Source: patient, RN notes reviewed, Vital Signs reviewed, EMS notes reviewed, family, old records Exam Limitations: no limitations - History of Present Illness Initial Comments: 44 yo F with chronic abdominal pain, type I DM and noncompliance comes in with 2 days of Right side pain. States the pain was gradual in onset. States her sugar has been very high, too high to read on glucometer. Was hospitalized in [place] for pancreaticis last month. + n/v, no diarrhea, no fever, no dysuria, hematuria. Friend was showering at patients house when she found patient lying on the floor in pain. no seizure like activity, no LOC. Did not hit head. Patient has port. Was suppose to get stimulator many months ago for chronic abdominal pain, still has not gotten this yet. States she is scheduled this Saturday. Abdominal Pain Onset Location: RUQ Pain Radiation: back Review of Systems - Review of Systems Constitutional: Denies: chills, fever EENTM: Denies: blurred vision, mouth pain Respiratory: Denies: cough, short of breath Cardiology: Denies: chest pain, palpitations Gastrointestinal/Abdominal: States: abdominal pain, nausea, vomiting. Denies: constipation, diarrhea Genitourinary: Denies: dysuria, frequency, hematuria Musculoskeletal: Denies: joint pain, joint swelling, muscle pain, muscle stiffness, neck pain Skin: Denies: dryness, rash Neurological: Denies: headache, numbness, paresthesia, pre-existing deficit, tingling, tremors, weakness Endocrine: Denies: unexplained weight gain, unexplained weight loss Hematologic/Lymphatic: Denies: blood clots, easy bleeding, easy bruising Past Medical History (General) - Patient Medical History Hx Seizures: Yes Hx Stroke: No Hx Dementia: No Hx Asthma: Yes Hx of COPD: No Hx Cardiac Disorders: No Hx Congestive Heart Failure: No Hx Pacemaker: No Hx Hypertension: Yes Hx Thyroid Disease: No Hx Diabetes: Yes Hx Gastroesophageal Reflux: Yes Hx Renal Disease: No Hx Cancer: No Hx of HIV: No Hx Hepatitis C: No Hx MRSA: Yes - 2 yrs ago. MRSA Source:: Blood Surgical History: appendectomy, cholecystectomy, Hysterectomy - Vaccination History Hx Tetanus, Diphtheria Vaccination: Yes Hx Influenza Vaccination: Yes Hx Pneumococcal Vaccination: Yes - Social History Hx Tobacco Use: Yes Hx Chewing Tobacco Use: No Hx Alcohol Use: Yes Hx Substance Use: Yes Hx Substance Use Treatment: No Hx Depression: No Hx Physical Abuse: No Hx Emotional Abuse: No Hx Suspected Abuse: No - Female History Hx Last Menstrual Period: 11/05/11 Patient : No Family Medical History - Family History Mother Family History: No Known Name: April Age (years): 70 Living Status: Still Living Hx Family Asthma: No Hx Family Congestive Heart Failure: No Hx Family Hypertension: No Hx Family Stroke: No Hx Cardiac Disease: No Hx Family Diabetes: No Hx Family Cancer: Yes - skin cancer Hx Family;Other: thyroid problems and seizures Father Family History: No Known Name: Marlon Age (years): 68 Living Status: Still Living Hx Family Asthma: - Sister Hx Family Congestive Heart Failure: No Hx Family Hypertension: Yes Hx Family Stroke: No Hx Cardiac Disease: Yes Hx Family Diabetes: No Age of Onset (years of age): 32 Hx Family Cancer: - Grandmother Lymphoma Physical Exam - Physical Exam General Appearance: Alert, Comfortable, No apparent distress, Well Developed, Well Groomed, Well Hydrated, Well Nourished Eyes, Ears, Nose, Throat Exam: PERRL/EOMI, normal ENT inspection, pharynx normal Neck: non-tender, supple, other - tort[place]olis to the left Respiratory: chest non-tender, lungs clear, normal breath sounds, no respiratory distress, no accessory muscle use Cardiovascular/Chest: normal peripheral pulses, regular rate, rhythm, no edema, no gallop, no JVD, no murmur, other - HR 95 Peripheral Pulses: 2+ Gastrointestinal/Abdominal: normal bowel sounds, non tender, soft, no organomegaly, no pulsatile mass Rectal Exam: deferred Back Exam: normal inspection, no CVA tenderness, no vertebral tenderness Extremity: normal range of motion, non-tender, normal inspection, no pedal edema, no calf tenderness, normal capillary refill Neurologic: no motor/sensory deficits, alert, normal mood/affect, oriented x 3, other - no focal deficits Skin Exam: normal color, warm/dry Progress - Progress Progress: 05/15/20 23:24 partial ddx: chronic pain, dka, uti, kidney stone, sbo, pancreatitis. Will give phenergan and toradol. 1 L NS bolus. Glucose > 500, no evidence of DKA will give subq insulin. vss, HR 79. repeat glucose after fluids 347. 05/16/20 00:14 The data reviewed when caring for this patient included: nurse notes, prior records, etc. The history and assessments from nurses notes were reviewed and considered, and the patient's home medication list was also reviewed and considered. My assessment and the results of testing completed here in the ED were discussed with the patient/family. All questions were answered, and they express understanding of my assessment and the plan. They have been instructed to return if their symptoms worsen, and have been asked to follow up with their primary care physician to recheck today's presenting complaint. return precautions given. patient was discharged home in stable condition. Rebecca Garcia DO #[id number] - Results/Orders Results/Orders: 05/15/20 21:53 Sodium Chloride 0.9% 1000ML [Ns 1000 ml] 1,000 ml IVS STAT 05/15/20 22:00 EKG STAT 05/16/20 00:01 FSBS [GLUCOSE, FINGER STICK] Stat 05/16/20 00:05 GLUCOSE, FINGER STICK Stat Laboratory Results WBC 5.3 K/mm3 (4.8-10.8) 05/15/20 22:05 RBC 4.73 M/mm3 (4.20-5.40) 05/15/20 22:05 Hgb 12.3 gm/dL (12.0-16.0) 05/15/20 22:05 Hct 37.7 % (36.0-47.0) 05/15/20 22:05 MCV 79.9 fl (81.0-99.0) L 05/15/20 22:05 MCH 26.0 pg (27.0-31.0) L 05/15/20 22:05 MCHC 32.5 g/dL (33.0-37.0) L 05/15/20 22:05 RDW 13.2 % (11.5-14.5) 05/15/20 22:05 Plt Count 311 K/mm3 (130-400) 05/15/20 22:05 MPV 8.1 fl (7.40-10.4) 05/15/20 22:05 Absolute Neuts (auto) 2.70 K/uL (1.8-6.8) 05/15/20 22:05 Absolute Lymphs (auto) 2.10 K/uL (1.0-3.4) 05/15/20 22:05 Absolute Monos (auto) 0.40 K/uL (0.2-0.8) 05/15/20 22:05 Absolute Eos (auto) 0.20 K/uL (0.0-0.4) 05/15/20 22:05 Absolute Basos (auto) 0.00 K/uL (0.0-0.1) 05/15/20 22:05 Neutrophils % 49.9 % (42.0-78.0) 05/15/20 22:05 Lymphocytes % 40.1 % (20.0-50.0) 05/15/20 22:05 Monocytes % 6.6 % (2.0-9.0) 05/15/20 22:05 Eosinophils % 2.9 % (1.0-5.0) 05/15/20 22:05 Basophils % 0.5 % (0.0-2.0) 05/15/20 22:05 Sodium 130 mmol/L (135-145) L 05/15/20 22:05 Potassium 4.2 mmol/L (3.6-5.0) 05/15/20 22:05 Chloride 95 mmol/L (101-111) L 05/15/20 22:05 Carbon Dioxide 22 mmol/L (21-31) 05/15/20 22:05 Anion Gap 17.2 (12-18) 05/15/20 22:05 BUN 17 mg/dL (7-18) 05/15/20 22:05 Creatinine 0.72 mg/dL (0.6-1.3) 05/15/20 22:05 BUN/Creatinine Ratio 23.6 (10-20) H 05/15/20 22:05 Random Glucose 583 mg/dL (70-105) H* 05/15/20 22:05 Serum Osmolality 289.9 mOsm/L (275-295) 05/15/20 22:05 Calcium 8.7 mg/dL (8.4-10.2) 05/15/20 22:05 Phosphorus 4.5 mg/dL (2.5-4.6) 05/15/20 22:05 Magnesium 1.7 mg/dL (1.8-2.5) L 05/15/20 22:05 Total Bilirubin 0.5 mg/dL (0.2-1.0) 05/15/20 22:05 AST 21 IU/L (10-42) 05/15/20 22:05 ALT 25 IU/L (10-60) 05/15/20 22:05 Alkaline Phosphatase 118 IU/L (42-121) 05/15/20 22:05 Troponin I < 0.02 ng/mL (0.01-0.05) 05/15/20 22:05 Serum Total Protein 6.9 gm/dL (6.4-8.2) 05/15/20 22:05 Albumin 3.6 g/dl (3.2-5.5) 05/15/20 22:05 Globulin 3.3 gm/dL (2.3-3.5) 05/15/20 22:05 Albumin/Globulin Ratio 1.1 (1.1-1.9) 05/15/20 22:05 Lipase 30 U/L (22-51) 05/15/20 22:05 Urine Color Yellow (Yellow) 05/15/20 21:45 Urine Appearance Clear (Clear) 05/15/20 21:45 Urine pH 6.0 (4.5-7.8) 05/15/20 21:45 Ur Specific [place] 1.010 (1.005-1.030) 05/15/20 21:45 Urine Protein Negative mg/dL 05/15/20 21:45 Urine Glucose (UA) 500 mg/dL (Negative) H 05/15/20 21:45 Urine Ketones Negative mg/dL (NEGATIVE) 05/15/20 21:45 Urine Blood Trace-intact (Negative) H 05/15/20 21:45 Urine Nitrite Negative 05/15/20 21:45 Urine Bilirubin Negative (NEGATIVE) 05/15/20 21:45 Urine Urobilinogen 0.2 mg/dL (0.2-1.0) 05/15/20 21:45 Ur Leukocyte Esterase Negative (Negative) 05/15/20 21:45 Urine RBC 0-1 /hpf 05/15/20 21:45 Urine WBC 0 /hpf 05/15/20 21:45 Ur Epithelial Cells 1-3 /hpf 05/15/20 21:45 Urine Bacteria 0 05/15/20 21:45 Urine HCG, Qual Negative (NEGATIVE) 05/15/20 21:45 Serum Ketones Negative 05/15/20 22:05 - EKG/XRAY/CT EKG: Sinus, Tachy XRAY: chest - no acute pathology Xray Comments: abdomen: no acute pathology. normal bowel gas pattern Departure - Departure Clinical Impression: Hyperglycemia Abdominal pain Qualifiers: Abdominal location: unspecified location Qualified Code(s): R10.9 - Unspecified abdominal pain Time of Disposition: 00:08 Disposition: Discharge to Home or Self Care Departure Forms: ED Discharge - Pt. Copy, Patient Portal Self Enrollment Instructions: DI for Abdominal Pain-Adult, Acute Abdomen (Belly Pain), Adult (DC), Hyperglycemia, Adult (DC), How to Prevent High Blood Sugar Emergencies in Diabetes Referrals: JUSTINO MARQUEZ IV, REFERENCE INVESTIGATOR [Primary Care Provider] - 1 Week Home Medications: Ambulatory Orders Mometasone Furoate [Elocon] 0.1 % TOP DAILY PRN 11/07/17 Epinephrine [Epipen 2-Mikael] 0.3 mg IJ ONCE PRN #1 pack 03/26/18 Buspirone HCl 30 mg PO BID 10/23/18 Diazepam 5 mg PO TID 02/21/19 Gabapentin 300 mg PO TID 11/11/19 Hydrocodone-Acetaminophen [Patagonia 7.5-325 mg] 1 tab PO TID 11/11/19 Vilazodone HCl [Viibryd] 40 mg PO DAILY 11/11/19 tiZANidine [Zanaflex] 12 mg PO Q8H PRN 11/11/19 Ondansetron Odt [Zofran Odt] 8 mg PO Q8H PRN #12 tab 12/25/19 Albuterol Sulfate [Proair Hfa] 2 puff INH Q6H PRN 01/01/20 Azelastine HCl [Azelastine Hydrochloride] 0.1 % INH PRN PRN 01/01/20 Esomeprazole Magnesium [Nexium] 40 mg PO PRN 01/01/20 Glucagon [Baqsimi One Pack] 3 mg NA PRN 01/01/20 Hydroxyzine HCl [Hydroxyzine Hydrochloride] 50 mg PO QID 01/01/20 Insulin Glargine [Lantus Solostar] 10 unit SC BEDTIME 01/01/20 Insulin Glargine [Lantus Solostar] 25 unit SC DAILY 01/01/20 Mometasone Furoate 0.1 % TOP PRN 01/01/20 Naloxone HCl [Narcan] 4 mg NA PRN 01/01/20 Promethazine Tab [Phenergan Tablet] 25 mg PO .Q4H PRN 01/01/20 Salmeterol Xinafoate [Serevent Diskus] 50 mcg IN PRN 01/01/20 Triamcinolone 0.5% Cream [Kenalog 0.5% Cream] 1 applic TOP PRN 01/01/20 Promethazine Supp [Phenergan Suppository] 12.5 mg CO Q6H PRN #15 sup 02/20/20
[2020-05-15] MEDS ORDERED: INSULIN, REG.(HUMAN) 100 U/ML VIAL SUBCU ONE (22:43)
[2020-05-15] MEDS ORDERED: ACETAMINOPHEN W/COD #3 TAB 1 EA TAB PO ONE (22:47)
--- NOTE | 2020-05-15 22:50 | RAD ---
EXAM DESCRIPTION: XR ABDOMEN 1 VIEW CLINICAL HISTORY: abdominal pain TECHNIQUE: Two views of the abdomen are submitted. COMPARISON: 03/23/2020 FINDINGS: Bowel: Moderate stool within the proximal large bowel. Gas is seen throughout the large bowel to the level of the rectum. No dilation. Calcifications: Bilateral pelvic phleboliths. Bones: Intact Lung bases: Unremarkable Other: Surgical clips project over the right upper quadrant. Umbilical piercing. IMPRESSION: Nonobstructive bowel gas pattern. Electronically signed by: Shikha Valadez MD 05/15/2020 10:48 PM CDT
--- NOTE | 2020-05-15 22:54 | RAD ---
EXAM DESCRIPTION: XR Chest, 2 Views CLINICAL HISTORY: tachycardia, syncope TECHNIQUE: Two views of the chest are submitted. COMPARISON: 03/17/2020 FINDINGS: Heart: The cardiothoracic silhouette is within normal limits. Lungs: No focal consolidation. Mediastinum: Unremarkable Pleura: No appreciable effusion. No pneumothorax. Bones: Intact Upper abdomen: Unremarkable Other: Right chest wall Mediport catheter remains in place. IMPRESSION: No acute disease. Electronically signed by: Shikha Valadez MD 05/15/2020 10:52 PM CDT
[2020-05-15] MEDS ORDERED: KETOROLAC TROMETHAMINE INJ 30 MG/ML VIAL IV ONE (23:06)
[2020-05-15] MEDS ORDERED: diphenhydrAMINE HCL 50 MG/ML VIAL IV ONE (23:19)
[2020-05-15] MEDS ORDERED: diphenhydrAMINE HCL 50 MG/ML VIAL ONE (23:20)
[2020-05-16] MEDS ORDERED: HEPARIN SODIUM 100 U/ML 5 ML SYG IV ONE (00:14)
[2020-05-16 00:41] VITALS: BP 142/78; TEMP 97.6; O2SAT 99
== END 2020-05-16 00:09 | disposition home or self-care (01) ==
LOC: ER 21:36
DX: R10.9 Unspecified abdominal pain (principal); E10.65 Type 1 diabetes mellitus with hyperglycemia; G89.29 Other chronic pain; R00.0 Tachycardia, unspecified; R11.2 Nausea with vomiting, unspecified; Z91.14 Patient's other noncompliance with medication regimen; R56.9 Unspecified convulsions; J45.909 Unspecified asthma, uncomplicated; I10 Essential (primary) hypertension; K21.9 Gastro-esophageal reflux disease without esophagitis; Z87.891 Personal history of nicotine dependence; Z90.49 Acquired absence of other specified parts of digestive tract; Z79.4 Long term (current) use of insulin; Z79.899 Other long term (current) drug therapy
CPT/HCPCS: 71046; 74019; 80053; 81001; 81025; 82009; 82948; 83690; 83735; 84100; 84484; 85025; 93005; A4216; J1200; J1642; J1885; J2550; J7030

== ENCOUNTER 2020-05-22 11:44 | Emergency (ER) | payer MEDICARE, MEDICAID ==
[2020-05-22] MEDS ORDERED: INSULIN, REG.(HUMAN) 100 U/ML VIAL IV ONE (12:01)
[2020-05-22] MEDS ORDERED: SODIUM CHLORIDE 0.9% 1000ML 1,000 ML IVS ONE (12:01)
[2020-05-22] MEDS ORDERED: PROMETHAZINE HCL INJ 12.5 MG in SODIUM CHLORIDE 0.9% 50ML 50 ML IVPB ONE (12:01)
--- NOTE | 2020-05-22 13:24 | RAD ---
EXAM: XR Abdomen, 2 Views and XR Chest, 1 View CLINICAL HISTORY: The patient is 44 years old and is Female; nv TECHNIQUE: Frontal view of the chest, frontal view of the abdomen/pelvis and upright or decubitus view of the abdomen. COMPARISON: Abdominal radiograph from 05/15/2020 FINDINGS: LUNGS: Unremarkable. No consolidation. PLEURAL SPACE: Unremarkable. No pneumothorax. HEART: Unremarkable. No cardiomegaly. MEDIASTINUM: Unremarkable. INTRAPERITONEAL SPACE: No obvious free air. GASTROINTESTINAL TRACT: There is moderately increased stool in the colon. No significant bowel dilatation appreciated to suggest obstruction. BONES/JOINTS: No acute osseous findings. VASCULATURE: Probable phleboliths visualized projecting over the pelvis. TUBES, LINES AND DEVICES: Right chest port in place, terminating in the SVC. IMPRESSION: Moderately increased stool in the colon. The appearance suggests constipation. Electronically signed by: Clara Dillard MD 05/22/2020 1:23 PM CDT
[2020-05-22] MEDS ORDERED: MAGNESIUM SULFATE PREMIX 2GM 2 GM in PREMIX BAG 1 BAG IVPB ONE (14:16)
[2020-05-22] MEDS ORDERED: INSULIN LISPRO 100 UNITS/ML PEN SUBCU ONE (15:01)
[2020-05-22] MEDS ORDERED: KETOROLAC TROMETHAMINE INJ 30 MG/ML VIAL IM ONE (15:22)
--- NOTE | 2020-05-22 15:59 | ED.PDOC ---
History of Present Illness - General Chief Complaint: Abdominal Pain Stated Complaint: R sided abd pain/vomitting x 1 day Time Seen by Provider: 05/22/20 11:48 Source: patient Exam Limitations: no limitations - History of Present Illness Initial Comments: The patient is a 44-year-old female presented emergency room secondary to nausea and vomiting. The patient has well-known to the emergency room and does have significant gastroparesis as well as noncompliance issues. She has had multiple episodes of DKA in the past as well. The patient reports that the vomiting started last night. No blood and no bile. No syncope. No chest pain. Pain is primarily to the epigastric area and somewhat to the right upper quadrant. No rebound or peritoneal signs. No trauma. 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 She is alert and oriented. Timing/Duration: other - About 16 hours Severity: moderate Improving Factors: nothing Worsening Factors: eating Associated Symptoms: loss of appetite, malaise, nausea/vomiting Allergies/Adverse Reactions: Allergies Fish Allergy Allergy (Verified 05/22/20 12:52) Haloperidol [From Haldol] Allergy (Verified 05/22/20 12:52) Ketorolac Tromethamine [From Toradol] Adverse Reaction (Verified 05/22/20 12:52) Metoclopramide [From Reglan] Adverse Reaction (Verified 05/22/20 12:52) peanut Allergy (Severe, Uncoded 05/15/20 21:52) Home Medications: Ambulatory Orders Mometasone Furoate [Elocon] 0.1 % TOP DAILY PRN 11/07/17 Epinephrine [Epipen 2-Mikael] 0.3 mg IJ ONCE PRN #1 pack 03/26/18 Buspirone HCl 30 mg PO BID 10/23/18 Diazepam 5 mg PO TID 02/21/19 Gabapentin 300 mg PO TID 11/11/19 Hydrocodone-Acetaminophen [[place] 7.5-325 mg] 1 tab PO TID 11/11/19 Vilazodone HCl [Viibryd] 40 mg PO DAILY 11/11/19 tiZANidine [Zanaflex] 12 mg PO Q8H PRN 11/11/19 Ondansetron Odt [Zofran Odt] 8 mg PO Q8H PRN #12 tab 12/25/19 Albuterol Sulfate [Proair Hfa] 2 puff INH Q6H PRN 01/01/20 Azelastine HCl [Azelastine Hydrochloride] 0.1 % INH PRN PRN 01/01/20 Esomeprazole Magnesium [Nexium] 40 mg PO PRN 01/01/20 Glucagon [Baqsimi One Pack] 3 mg NA PRN 01/01/20 Hydroxyzine HCl [Hydroxyzine Hydrochloride] 50 mg PO QID 01/01/20 Insulin Glargine [Lantus Solostar] 10 unit SC BEDTIME 01/01/20 Insulin Glargine [Lantus Solostar] 25 unit SC DAILY 01/01/20 Mometasone Furoate 0.1 % TOP PRN 01/01/20 Naloxone HCl [Narcan] 4 mg NA PRN 01/01/20 Promethazine Tab [Phenergan Tablet] 25 mg PO .Q4H PRN 01/01/20 Salmeterol Xinafoate [Serevent Diskus] 50 mcg IN PRN 01/01/20 Triamcinolone 0.5% Cream [Kenalog 0.5% Cream] 1 applic TOP PRN 01/01/20 Promethazine Supp [Phenergan Suppository] 12.5 mg MO Q6H PRN #15 sup 02/20/20 Review of Systems - Review of Systems Constitutional: States: no symptoms reported EENTM: States: no symptoms reported Respiratory: States: no symptoms reported Cardiology: States: no symptoms reported Gastrointestinal/Abdominal: States: see HPI Genitourinary: States: no symptoms reported Musculoskeletal: States: no symptoms reported Skin: States: no symptoms reported Neurological: States: no symptoms reported Endocrine: States: no symptoms reported All other Systems: No Change from Baseline Past Medical History (General) - Patient Medical History Hx Seizures: Yes Hx Stroke: No Hx Dementia: No Hx Asthma: Yes Hx of COPD: No Hx Cardiac Disorders: No Hx Congestive Heart Failure: No Hx Pacemaker: No Hx Hypertension: No Hx Thyroid Disease: Yes Hx Diabetes: Yes Hx Gastroesophageal Reflux: Yes Hx Renal Disease: No Hx Cancer: No Hx of HIV: No Hx Hepatitis C: No Hx MRSA: Yes - 2 yrs ago. MRSA Source:: Blood Surgical History: appendectomy, cholecystectomy, Hysterectomy - Vaccination History Hx Tetanus, Diphtheria Vaccination: Yes Hx Influenza Vaccination: Yes Hx Pneumococcal Vaccination: Yes - Social History Hx Tobacco Use: Yes Hx Chewing Tobacco Use: No Hx Alcohol Use: No Hx Substance Use: No Hx Substance Use Treatment: No Hx Depression: No Hx Physical Abuse: No Hx Emotional Abuse: No Hx Suspected Abuse: No - Female History Patient is a Female of Child Bearing Age (10 -59 yrs old): Yes Hx Last Menstrual Period: 11/05/11 Patient : No Family Medical History - Family History Mother Family History: No Known Name: April Age (years): 70 Living Status: Still Living Hx Family Asthma: No Hx Family Congestive Heart Failure: No Hx Family Hypertension: No Hx Family Stroke: No Hx Cardiac Disease: No Hx Family Diabetes: No Hx Family Cancer: Yes - skin cancer Hx Family;Other: thyroid problems and seizures Father Family History: No Known Name: Marlon Age (years): 68 Living Status: Still Living Hx Family Asthma: - Sister Hx Family Congestive Heart Failure: No Hx Family Hypertension: Yes Hx Family Stroke: No Hx Cardiac Disease: Yes Hx Family Diabetes: No Age of Onset (years of age): 32 Hx Family Cancer: - Grandmother Lymphoma Physical Exam - Physical Exam General Appearance: Alert, No apparent distress Eye Exam: bilateral normal Ears, Nose, Throat: hearing grossly normal, normal pharynx Neck: other - Torticollis towards the left Respiratory: lungs clear, normal breath sounds, no respiratory distress, no acc essory muscle use Cardiovascular/Chest: normal peripheral pulses, no edema, tachycardia - Initially but then normal sinus rhythm when she is rehydrated. Peripheral Pulses: radial,right: 2+, radial,left: 2+ Gastrointestinal/Abdominal: soft, other - Mild epigastric discomfort to palpation. Rectal Exam: deferred Back Exam: no CVA tenderness, no vertebral tenderness Extremity: normal range of motion, non-tender, normal inspection, no pedal edema, normal capillary refill Neurologic: gluing pressman II-XII nml as tested, alert, normal mood/affect, oriented x 3 Skin Exam: normal color Comments: Vital Signs - 24 hr 05/22/20 05/22/20 05/22/20 11:44 11:45 13:00 Temperature 96.8 F L Pulse Rate [ 123 H 123 H 91 H Pulse ox] Respiratory 20 20 16 Rate Blood Pressure 107/88 92/54 [L arm] O2 Sat by Pulse 97 98 Oximetry 10/18/20 10/18/20 14:00 15:00 Temperature Pulse Rate [ 101 H 97 H Pulse ox] Respiratory 16 16 Rate Blood Pressure 95/60 91/55 [L arm] O2 Sat by Pulse 96 97 Oximetry last Blood pressure check is 102/62 Progress - Progress Progress: 05/22/20 16:01 The patient is a 44-year-old female presented emergency room secondary to recurrent nausea and vomiting related to her uncontrolled diabetes and ga stroparesis. Blood sugars are improving markedly. She has received 2 L of IV fluids and she has not vomited since her arrival. The patient does have a small gap acidosis initially likely indicating early DKA. The patient has been monitored here for approximately 5 hours and has been improving with her insulin and IV fluid therapy. The patient can use 1 of her scopolamine patches at home additionally if needed to control the nausea and vomiting. She needs to maintain a bland diet. She needs to continue her home medications. She needs to monitor her diabetes very closely for the next 4 or 5 days, as she already knows given her extensive history. The patient's blood pressures are borderline low but that is not unusual for this patient. ER warnings are given. Keep follow-up with primary care doctor this coming week. lana anderson [phone] - Results/Orders Results/Orders: Acute abdominal series shows constipation. Laboratory Tests 05/22/20 05/22/20 05/22/20 12:17 12:17 12:17 WBC 6.7 RBC 4.89 Hgb 12.8 Hct 39.0 MCV 79.6 L MCH 26.1 L MCHC 32.7 L RDW 13.7 Plt Count 268 MPV 8.2 Absolute Neuts (auto) 5.80 Absolute Lymphs (auto) 0.50 L Absolute Monos (auto) 0.30 Absolute Eos (auto) 0.00 Absolute Basos (auto) 0.10 Neutrophils % 86.8 H Lymphocytes % 7.3 L Monocytes % 4.4 Eosinophils % 0.7 L Basophils % 0.8 Sodium 127 L Potassium 4.8 Chloride 92 L Carbon Dioxide 21 Anion Gap 18.8 H BUN 23 H Creatinine 0.82 BUN/Creatinine Ratio 28.0 H POC Glucose Random Glucose 678 H* Serum Osmolality 290.5 Lactic Acid 1.2 Calcium 8.4 Magnesium 1.7 L Total Bilirubin 0.8 AST 29 ALT 50 Alkaline Phosphatase 173 H Creatine Kinase 28 CK-MB (CK-2) 0.8 CK-MB (CK-2) % Not Reportable Troponin I < 0.02 Serum Total Protein 7.1 Albumin 3.9 Globulin 3.2 Albumin/Globulin Ratio 1.2 Amylase 36 Lipase 23 Urine Color Urine Appearance Urine pH Ur Specific [place] Urine Protein Urine Glucose (UA) Urine Ketones Urine Blood Urine Nitrite Urine Bilirubin Urine Urobilinogen Ur Leukocyte Esterase Urine RBC Urine WBC Ur Epithelial Cells Urine Bacteria Serum Ketones 05/22/20 05/22/20 05/22/20 12:17 12:47 14:15 WBC RBC Hgb Hct MCV MCH MCHC RDW Plt Count MPV Absolute Neuts (auto) Absolute Lymphs (auto) Absolute Monos (auto) Absolute Eos (auto) Absolute Basos (auto) Neutrophils % Lymphocytes % Monocytes % Eosinophils % Basophils % Sodium Potassium Chloride Carbon Dioxide Anion Gap BUN Creatinine BUN/Creatinine Ratio POC Glucose 300 H Random Glucose Serum Osmolality Lactic Acid Calcium Magnesium Total Bilirubin AST ALT Alkaline Phosphatase Creatine Kinase CK-MB (CK-2) CK-MB (CK-2) % Troponin I Serum Total Protein Albumin Globulin Albumin/Globulin Ratio Amylase Lipase Urine Color Yellow Urine Appearance Clear Urine pH 5.5 Ur Specific [place] 1.010 Urine Protein Negative Urine Glucose (UA) 500 H Urine Ketones 40 H Urine Blood Small H Urine Nitrite Negative Urine Bilirubin Negative Urine Urobilinogen 0.2 Ur Leukocyte Esterase Negative Urine RBC 3-5 H Urine WBC 0 Ur Epithelial Cells 3-5 Urine Bacteria 0 Serum Ketones Small Departure - Departure Clinical Impression: Gastroparesis, Dehydration Uncontrolled diabetes mellitus Qualifiers: Diabetes mellitus type: type 1 Glycemic state: with hyperglycemia Qualified Code(s): E10.65 - Type 1 diabetes mellitus with hyperglycemia Disposition: Discharge to Home or Self Care Condition: Fair Departure Forms: ED Discharge - Pt. Copy, Patient Portal Self Enrollment Instructions: DI for Abdominal Pain-Adult, Gastroparesis (Delayed Gastric Emptying) (DC) Diet: diabetic diet Activity: increase activity as tolerated Referrals: JUSTINO MARQUEZ [facility] [employer]AM[facility] [Primary Care Provider] - 1-2 Weeks Home Medications: Ambulatory Orders Mometasone Furoate [Elocon] 0.1 % TOP DAILY PRN 11/07/17 Epinephrine [Epipen 2-Mikael] 0.3 mg IJ ONCE PRN #1 pack 03/26/18 Buspirone HCl 30 mg PO BID 10/23/18 Diazepam 5 mg PO TID 02/21/19 Gabapentin 300 mg PO TID 11/11/19 Hydrocodone-Acetaminophen [[place] 7.5-325 mg] 1 tab PO TID 11/11/19 Vilazodone HCl [Viibryd] 40 mg PO DAILY 11/11/19 tiZANidine [Zanaflex] 12 mg PO Q8H PRN 11/11/19 Ondansetron Odt [Zofran Odt] 8 mg PO Q8H PRN #12 tab 12/25/19 Albuterol Sulfate [Proair Hfa] 2 puff INH Q6H PRN 01/01/20 Azelastine HCl [Azelastine Hydrochloride] 0.1 % INH PRN PRN 01/01/20 Esomeprazole Magnesium [Nexium] 40 mg PO PRN 01/01/20 Glucagon [Baqsimi One Pack] 3 mg NA PRN 01/01/20 Hydroxyzine HCl [Hydroxyzine Hydrochloride] 50 mg PO QID 01/01/20 Insulin Glargine [Lantus Solostar] 10 unit SC BEDTIME 01/01/20 Insulin Glargine [Lantus Solostar] 25 unit SC DAILY 01/01/20 Mometasone Furoate 0.1 % TOP PRN 01/01/20 Naloxone HCl [Narcan] 4 mg NA PRN 01/01/20 Promethazine Tab [Phenergan Tablet] 25 mg PO .Q4H PRN 01/01/20 Salmeterol Xinafoate [Serevent Diskus] 50 mcg IN PRN 01/01/20 Triamcinolone 0.5% Cream [Kenalog 0.5% Cream] 1 applic TOP PRN 01/01/20 Promethazine Supp [Phenergan Suppository] 12.5 mg MO Q6H PRN #15 sup 02/20/20 Additional Instructions: The patient is a 44-year-old female presented emergency room secondary to recurrent nausea and vomiting related to her uncontrolled diabetes and gastroparesis. Blood sugars are improving markedly. She has received 2 L of IV fluids. The patient does have a small gap acidosis initially likely indicating early DKA. The patient has been monitored here for approximately 5 hours and has been improving with her insulin and IV fluid therapy. The patient can use 1 of her scopolamine patches at home additionally if needed to control the nausea and vomiting. She needs to maintain a bland diet. She needs to continue her home medications. She needs to monitor her diabetes very closely for the next 4 or 5 days, as she already knows given her extensive history. The patient's blood pressures are borderline low but that is not unusual for this patient. ER warnings are given. Keep follow-up with primary care doctor this coming week.
[2020-05-22 16:30] VITALS: BP 111/76; TEMP 97.1; O2SAT 98
== END 2020-05-22 16:20 | disposition home or self-care (01) ==
LOC: ER 11:44
DX: E10.65 Type 1 diabetes mellitus with hyperglycemia (principal); E10.43 Type 1 diabetes mellitus with diabetic autonomic (poly)neuropathy; K31.84 Gastroparesis; E86.0 Dehydration; Z79.899 Other long term (current) drug therapy; Z79.4 Long term (current) use of insulin; K21.9 Gastro-esophageal reflux disease without esophagitis; E07.9 Disorder of thyroid, unspecified
CPT/HCPCS: 36415; 36416; 74019; 80053; 81001; 82009; 82150; 82550; 82553; 82948; 83605; 83690; 83735; 84484; 85025; A4216; J1815; J1885; J2550; J3475; J7030

== ENCOUNTER 2020-05-23 22:23 | Emergency (ER) | payer MEDICARE, MEDICAID ==
[2020-05-23] MEDS ORDERED: SODIUM CHLORIDE 0.9% (FLUSH) 10 ML SYG IV PRN (22:30)
[2020-05-23] MEDS ORDERED: SODIUM CHLORIDE 0.9% 1000ML 1,000 ML IVS ONE (22:31)
--- NOTE | 2020-05-23 22:35 | ED.PDOC ---
History of Present Illness - General Chief Complaint: Neuro Symptoms/Deficits Stated Complaint: twitching Time Seen by Provider: 05/23/20 22:30 Source: patient - History of Present Illness Initial Comments: 44-year-old female with past medical history of poorly controlled diabetes, diabetic gastroparesis who is brought in by EMS from home for chief complaint of vomiting and seizure activity which occurred at home just prior to arrival. Patient was discharged earlier today after being seen for symptoms of vomiting and diarrhea. She was diagnosed with acute flare of diabetic gastroparesis and discharged home. She reports shortly after getting home she had return of nausea with 7 episodes of bilious emesis as well as 4 episodes of diarrhea. Patient was not noted to have any episodes of vomiting or diarrhea during her ED stay earlier but reports it has been severely frequent for the past several days. She additionally reports constant sharp/stabbing abdominal pain to the right side of the abdomen. This is all consistent with her usual ED presentation. Patient is frequently seen in this ED and often transferred for diagnoses of gastroparesis, hyperglycemia, DKA, etc. She additionally complains of worsening of shape of the neck and clenching of the jaw. Reports this is a chronic issue but has been further worsened in the past several days and worsened further in the past few hours. Reports that she had a seizure earlier, unsure of characteristics or how long it lasted. Denies fevers, chills, cough, chest pain, shortness of breath, leg swelling, urinary symptoms. She states that she checked her glucose at home just prior to arrival and it was 214. Allergies/Adverse Reactions: Allergies Fish Allergy Allergy (Verified 05/22/20 12:52) Haloperidol [From Haldol] Allergy (Verified 05/22/20 12:52) Ketorolac Tromethamine [From Toradol] Adverse Reaction (Verified 05/22/20 12:52) Metoclopramide [From Reglan] Adverse Reaction (Verified 05/22/20 12:52) peanut Allergy (Severe, Uncoded 05/15/20 21:52) Home Medications: Ambulatory Orders Mometasone Furoate [Elocon] 0.1 % TOP DAILY PRN 11/07/17 Epinephrine [Epipen 2-Mikael] 0.3 mg IJ ONCE PRN #1 pack 03/26/18 Buspirone HCl 30 mg PO BID 10/23/18 Diazepam 5 mg PO TID 02/21/19 Gabapentin 300 mg PO TID 11/11/19 Hydrocodone-Acetaminophen [[place] 7.5-325 mg] 1 tab PO TID 11/11/19 Vilazodone HCl [Viibryd] 40 mg PO DAILY 11/11/19 tiZANidine [Zanaflex] 12 mg PO Q8H PRN 11/11/19 Ondansetron Odt [Zofran Odt] 8 mg PO Q8H PRN #12 tab 12/25/19 Albuterol Sulfate [Proair Hfa] 2 puff INH Q6H PRN 01/01/20 Azelastine HCl [Azelastine Hydrochloride] 0.1 % INH PRN PRN 01/01/20 Esomeprazole Magnesium [Nexium] 40 mg PO PRN 01/01/20 Glucagon [Baqsimi One Pack] 3 mg NA PRN 01/01/20 Hydroxyzine HCl [Hydroxyzine Hydrochloride] 50 mg PO QID 01/01/20 Insulin Glargine [Lantus Solostar] 10 unit SC BEDTIME 01/01/20 Insulin Glargine [Lantus Solostar] 25 unit SC DAILY 01/01/20 Mometasone Furoate 0.1 % TOP PRN 01/01/20 Naloxone HCl [Narcan] 4 mg NA PRN 01/01/20 Promethazine Tab [Phenergan Tablet] 25 mg PO .Q4H PRN 01/01/20 Salmeterol Xinafoate [Serevent Diskus] 50 mcg IN PRN 01/01/20 Triamcinolone 0.5% Cream [Kenalog 0.5% Cream] 1 applic TOP PRN 01/01/20 Promethazine Supp [Phenergan Suppository] 12.5 mg [place] Q6H PRN #15 sup 02/20/20 Review of Systems - Review of Systems Review of Systems: 05/23/20 22:36 as per HPI All other Systems: Reviewed and Negative Past Medical History (General) - Patient Medical History Hx Seizures: Yes Hx Stroke: No Hx Dementia: No Hx Asthma: Yes Hx of COPD: No Hx Cardiac Disorders: No Hx Congestive Heart Failure: No Hx Pacemaker: No Hx Hypertension: No Hx Thyroid Disease: Yes Hx Diabetes: Yes Hx Gastroesophageal Reflux: Yes Hx Renal Disease: No Hx Cancer: No Hx of HIV: No Hx Hepatitis C: No Hx MRSA: Yes - 2 yrs ago. MRSA Source:: Blood - Vaccination History Hx Tetanus, Diphtheria Vaccination: Yes Hx Influenza Vaccination: Yes Hx Pneumococcal Vaccination: Yes - Social History Hx Tobacco Use: Yes Hx Chewing Tobacco Use: No Hx Alcohol Use: No Hx Substance Use: No Hx Substance Use Treatment: No Hx Depression: No Hx Physical Abuse: No Hx Emotional Abuse: No Hx Suspected Abuse: No - Female History Hx Last Menstrual Period: 11/05/11 Patient : No Family Medical History - Family History Mother Family History: No Known Name: April Age (years): 70 Living Status: Still Living Hx Family Asthma: No Hx Family Congestive Heart Failure: No Hx Family Hypertension: No Hx Family Stroke: No Hx Cardiac Disease: No Hx Family Diabetes: No Hx Family Cancer: Yes - skin cancer Hx Family;Other: thyroid problems and seizures Father Family History: No Known Name: Marlon Age (years): 68 Living Status: Still Living Hx Family Asthma: - Sister Hx Family Congestive Heart Failure: No Hx Family Hypertension: Yes Hx Family Stroke: No Hx Cardiac Disease: Yes Hx Family Diabetes: No Age of Onset (years of age): 32 Hx Family Cancer: - Grandmother Lymphoma Physical Exam - Physical Exam General Appearance: Alert, Anxious, No apparent distress Eye Exam: bilateral normal Ears, Nose, Throat: normal ENT inspection, normal pharynx Neck: non-tender, full range of motion, supple, normal inspection Respiratory: lungs clear, normal breath sounds, no respiratory distress, no accessory muscle use Cardiovascular/Chest: normal peripheral pulses, regular rate, rhythm, no edema, no gallop, no JVD, no murmur Peripheral Pulses: radial,right: 2+, radial,left: 2+ Gastrointestinal/Abdominal: soft, abnormal bowel sounds - decreased, tenderness - Marked to RUQ, epigastric regions, inconsistent exam Back Exam: normal inspection, no CVA tenderness, no vertebral tenderness Extremity: normal range of motion, non-tender, normal inspection, no pedal edema, no calf tenderness, normal capillary refill 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 Neck twitching/spasms. Consistent with dystonic reaction. Likely due to frequent antiemetic usage/Haldol usage in the past. Possibly exacerbated by Benadryl earlier. -We will repeat blood work from earlier today to ensure no further worsening of acidosis or dehydration 05/24/20 00:50 -Patient still with significant muscle spasms/neck twitching. Labs continue to appear improved from earlier. Patient otherwise remained stable. Will give trial of Ativan 2 mg IM, baclofen 10 mg p.o., Tylenol 650 mg p.o. 05/24/20 02:43 -Dystonia sx's improved but still present - pt reports continued discomfort. Ativan did seem to help briefly - will try again. Lidocaine S&S for mouth pain reported. 05/24/20 03:22 -Patient has remained stable. Her dystonia appears markedly improved on repeat evaluation. However, she continues to ask for medications. I advised the patient that no further medications were warranted at this time. As she has remained stable in the ED, discharge to home is appropriate at this time. Follow-up closely with her neurologist as well as her primary care physician. Return warnings discussed. Cautioned on medications that could possibly worsen dystonia symptoms. Nicolas Gross MD Billing #[id number] 05/23/20 22:30 IV Care:Saline Lock per Protoc QSHIFT Sodium Chloride 0.9% (Flush) [Saline Flush Syringe] 10 ml IV PRN PRN Laboratory Results - last 24 hr 05/23/20 05/23/20 05/23/20 22:35 22:35 22:45 WBC 4.9 RBC 4.22 Hgb 11.1 L Hct 32.8 L MCV 77.7 L MCH 26.4 L MCHC 34.0 RDW 13.5 Plt Count 282 MPV 7.9 Absolute Neuts (auto) 2.80 Absolute Lymphs (auto) 1.50 Absolute Monos (auto) 0.50 Absolute Eos (auto) 0.10 Absolute Basos (auto) 0.00 Neutrophils % 56.5 Lymphocytes % 30.5 Monocytes % 9.8 H Eosinophils % 2.6 Basophils % 0.6 Sodium Potassium Chloride Carbon Dioxide Anion Gap BUN Creatinine BUN/Creatinine Ratio Random Glucose Serum Osmolality Lactic Acid Calcium Magnesium Total Bilirubin Direct Bilirubin Indirect Bilirubin AST ALT Alkaline Phosphatase Serum Total Protein Albumin Amylase Lipase Urine Color Yellow Urine Appearance Clear Urine pH 6.0 Ur Specific [place] 1.015 Urine Protein Negative Urine Glucose (UA) >=1000 H Urine Ketones Negative Urine Blood Moderate H Urine Nitrite Negative Urine Bilirubin Negative Urine Urobilinogen 0.2 Ur Leukocyte Esterase Negative Urine RBC 3-5 H Urine WBC 0 Ur Epithelial Cells 1-3 Urine Bacteria 0 Urine Opiates Screen Negative Urine Barbiturates Negative Ur Phencyclidine Scrn Negative U Amphetamin/Meth Scrn Negative U Benzodiazepines Scrn Positive H U Cocaine Metab Screen Negative U Cannabinoids Screen Negative 05/23/20 05/23/20 05/23/20 22:45 22:45 22:45 WBC RBC Hgb Hct MCV MCH MCHC RDW Plt Count MPV Absolute Neuts (auto) Absolute Lymphs (auto) Absolute Monos (auto) Absolute Eos (auto) Absolute Basos (auto) Neutrophils % Lymphocytes % Monocytes % Eosinophils % Basophils % Sodium 135 Potassium 3.7 Chloride 104 Carbon Dioxide 21 Anion Gap 13.7 BUN 10 Creatinine 0.48 L BUN/Creatinine Ratio 20.8 H Random Glucose 217 H D Serum Osmolality 275.7 Lactic Acid 1.5 Calcium 8.7 Magnesium 1.7 L Total Bilirubin 0.3 Direct Bilirubin < 0.1 Indirect Bilirubin 0.2 AST 26 ALT 38 Alkaline Phosphatase 138 H Serum Total Protein 6.9 Albumin 3.6 Amylase 38 Lipase 29 Urine Color Urine Appearance Urine pH Ur Specific [place] Urine Protein Urine Glucose (UA) Urine Ketones Urine Blood Urine Nitrite Urine Bilirubin Urine Urobilinogen Ur Leukocyte Esterase Urine RBC Urine WBC Ur Epithelial Cells Urine Bacteria Urine Opiates Screen Urine Barbiturates Ur Phencyclidine Scrn U Amphetamin/Meth Scrn U Benzodiazepines Scrn U Cocaine Metab Screen U Cannabinoids Screen Departure - Departure Clinical Impression: Gastroparesis, Dystonia Time of Disposition: 03:10 Disposition: Discharge to Home or Self Care Condition: Good Departure Forms: ED Discharge - Pt. Copy, Patient Portal Self Enrollment Instructions: Torticollis (DC) Diet: resume usual diet Activity: increase activity as tolerated Referrals: JUSTINO MARQUEZ IV, SOCIAL ORGANIZATION PROFESSOR [Primary Care Provider] - 1-2 Weeks Home Medications: Ambulatory Orders Mometasone Furoate [Elocon] 0.1 % TOP DAILY PRN 11/07/17 Epinephrine [Epipen 2-Mikael] 0.3 mg IJ ONCE PRN #1 pack 03/26/18 Buspirone HCl 30 mg PO BID 10/23/18 Diazepam 5 mg PO TID 02/21/19 Gabapentin 300 mg PO TID 11/11/19 Hydrocodone-Acetaminophen [[place] 7.5-325 mg] 1 tab PO TID 11/11/19 Vilazodone HCl [Viibryd] 40 mg PO DAILY 11/11/19 tiZANidine [Zanaflex] 12 mg PO Q8H PRN 11/11/19 Ondansetron Odt [Zofran Odt] 8 mg PO Q8H PRN #12 tab 12/25/19 Albuterol Sulfate [Proair Hfa] 2 puff INH Q6H PRN 01/01/20 Azelastine HCl [Azelastine Hydrochloride] 0.1 % INH PRN PRN 01/01/20 Esomeprazole Magnesium [Nexium] 40 mg PO PRN 01/01/20 Glucagon [Baqsimi One Pack] 3 mg NA PRN 01/01/20 Hydroxyzine HCl [Hydroxyzine Hydrochloride] 50 mg PO QID 01/01/20 Insulin Glargine [Lantus Solostar] 10 unit SC BEDTIME 01/01/20 Insulin Glargine [Lantus Solostar] 25 unit SC DAILY 01/01/20 Mometasone Furoate 0.1 % TOP PRN 01/01/20 Naloxone HCl [Narcan] 4 mg NA PRN 01/01/20 Promethazine Tab [Phenergan Tablet] 25 mg PO .Q4H PRN 01/01/20 Salmeterol Xinafoate [Serevent Diskus] 50 mcg IN PRN 01/01/20 Triamcinolone 0.5% Cream [Kenalog 0.5% Cream] 1 applic TOP PRN 01/01/20 Promethazine Supp [Phenergan Suppository] 12.5 mg [place] Q6H PRN #15 sup 02/20/20 Additional Instructions: You may continue to take your muscle relaxers and Valium as directed at home for symptoms of neck spasms and jaw clenching. You need to follow-up with your neurologist in the next 5 to 7 days for repeat evaluation of your neck spasms and seizure disorder for repeat evaluation. Remain well-hydrated and gradually advance your diet and activity level as tolerated.
[2020-05-24] MEDS ORDERED: BACLOFEN 10 MG TAB PO ONE (00:49)
[2020-05-24] MEDS ORDERED: ACETAMINOPHEN 325 MG TAB PO ONE (00:49)
[2020-05-24] MEDS ORDERED: ONDANSETRON ODT 8 MG TAB ONE (01:41)
[2020-05-24] MEDS ORDERED: LIDOCAINE HCL 2% (MOUTH-THROAT) 15 ML UD PO ONE (02:42)
[2020-05-24 03:33] VITALS: BP 125/79; TEMP 97.9; O2SAT 100
== END 2020-05-24 03:50 | disposition home or self-care (01) ==
LOC: ER 22:23
DX: E11.43 Type 2 diabetes mellitus with diabetic autonomic (poly)neuropathy (principal); K31.84 Gastroparesis; G24.9 Dystonia, unspecified; K21.9 Gastro-esophageal reflux disease without esophagitis; E11.9 Type 2 diabetes mellitus without complications; E07.9 Disorder of thyroid, unspecified; Z86.14 Personal history of Methicillin resistant Staphylococcus aureus infection; Z79.4 Long term (current) use of insulin; Z79.899 Other long term (current) drug therapy; F17.200 Nicotine dependence, unspecified, uncomplicated
CPT/HCPCS: 36415; 80048; 80076; 80307; 81001; 82150; 83605; 83690; 83735; 85025; J2060

== ENCOUNTER 2020-06-06 11:50 | Emergency (ER) | payer MEDICARE, MEDICAID ==
[2020-06-06] MEDS ORDERED: ONDANSETRON INJ 4 MG/2 ML VIAL IV ONE (11:57)
[2020-06-06] MEDS ORDERED: SODIUM CHLORIDE 0.9% (FLUSH) 10 ML SYG IV PRN (11:57)
[2020-06-06] MEDS ORDERED: SODIUM CHLORIDE 0.9% 1000ML 1,000 ML IVS ONE (11:58)
--- NOTE | 2020-06-06 11:59 | ED.PDOC ---
History of Present Illness - General Time Seen by Provider: 06/06/20 11:52 Source: patient - History of Present Illness Initial Comments: 44 yo female with past medical history of diabetes, diabetic gastroparesis, G- tube dependency who presents with chief complaint of abdominal pain and vomiting. Patient states that she had G-tube placement [address] Alejandra ([place], [place]). She reports constant abdominal pain since it was placed which has worsened in the past 24 hours. Reports the pain is located throughout the entire abdomen, "feels like someone is trying to rip my guts out", 10/10 severity, radiates all over into her back, worse with lying flat and with any attempted p.o. intake or feeds through the tube. She reports that the feeds through the tube are flushing easily. She does report some mild redness of the skin around the G-tube site as well as some moderate mucus-like drainage. She additionally reports intermittent chest pain and shortness of breath from the pain. She reports nausea with 6 episodes of nonbloody nonbilious emesis since this morning. She also reports intermittent watery diarrhea. Patient is well-known to this ED and seen very frequently for abdominal pain and vomiting. She does occasionally have DKA. Her diabetes is generally very uncontrolled. Allergies/Adverse Reactions: Allergies Fish Allergy Allergy (Verified 06/06/20 12:16) Haloperidol [From Haldol] Allergy (Verified 06/06/20 12:16) Ketorolac Tromethamine [From Toradol] Adverse Reaction (Verified 06/06/20 12:16) Metoclopramide [From Reglan] Adverse Reaction (Verified 06/06/20 12:16) peanut Allergy (Severe, Uncoded 06/06/20 12:16) Home Medications: Ambulatory Orders Mometasone Furoate [Elocon] 0.1 % TOP DAILY PRN 11/07/17 Epinephrine [Epipen 2-Mikael] 0.3 mg IJ ONCE PRN #1 pack 03/26/18 Buspirone HCl 30 mg PO BID 10/23/18 Diazepam 5 mg PO TID 02/21/19 Gabapentin 300 mg PO TID 11/11/19 Hydrocodone-Acetaminophen [[place] 7.5-325 mg] 1 tab PO TID 11/11/19 Vilazodone HCl [Viibryd] 40 mg PO DAILY 11/11/19 tiZANidine [Zanaflex] 12 mg PO Q8H PRN 11/11/19 Ondansetron Odt [Zofran Odt] 8 mg PO Q8H PRN #12 tab 12/25/19 Albuterol Sulfate [Proair Hfa] 2 puff INH Q6H PRN 01/01/20 Azelastine HCl [Azelastine Hydrochloride] 0.1 % INH PRN PRN 01/01/20 Esomeprazole Magnesium [Nexium] 40 mg PO PRN 01/01/20 Glucagon [Baqsimi One Pack] 3 mg NA PRN 01/01/20 Hydroxyzine HCl [Hydroxyzine Hydrochloride] 50 mg PO QID 01/01/20 Insulin Glargine [Lantus Solostar] 10 unit SC BEDTIME 01/01/20 Insulin Glargine [Lantus Solostar] 25 unit SC DAILY 01/01/20 Mometasone Furoate 0.1 % TOP PRN 01/01/20 Naloxone HCl [Narcan] 4 mg NA PRN 01/01/20 Promethazine Tab [Phenergan Tablet] 25 mg PO .Q4H PRN 01/01/20 Salmeterol Xinafoate [Serevent Diskus] 50 mcg IN PRN 01/01/20 Triamcinolone 0.5% Cream [Kenalog 0.5% Cream] 1 applic TOP PRN 01/01/20 Promethazine Supp [Phenergan Suppository] 12.5 mg AL Q6H PRN #15 sup 02/20/20 Amoxicillin & Pot Clavulanate [Augmentin Tab] 875 mg PO BID 7 Days #14 tab 06/06/20 Review of Systems - Review of Systems Review of Systems: 06/06/20 12:13 as per HPI All other Systems: Reviewed and Negative Past Medical History (General) - Patient Medical History Hx Seizures: Yes Hx Stroke: No Hx Dementia: No Hx Asthma: Yes Hx of COPD: No Hx Cardiac Disorders: No Hx Congestive Heart Failure: No Hx Pacemaker: No Hx Hypertension: No Hx Thyroid Disease: Yes Hx Diabetes: Yes Hx Gastroesophageal Reflux: Yes Hx Renal Disease: No Hx Cancer: No Hx of HIV: No Hx Hepatitis C: No Hx MRSA: Yes - 2 yrs ago. MRSA Source:: Blood - Vaccination History Hx Tetanus, Diphtheria Vaccination: Yes Hx Influenza Vaccination: Yes Hx Pneumococcal Vaccination: Yes - Social History Hx Tobacco Use: Yes Hx Chewing Tobacco Use: No Hx Alcohol Use: No Hx Substance Use: No Hx Substance Use Treatment: No Hx Depression: No Hx Physical Abuse: No Hx Emotional Abuse: No Hx Suspected Abuse: No - Female History Hx Last Menstrual Period: 11/05/11 Patient : No Family Medical History - Family History Mother Family History: No Known Name: April Age (years): 70 Living Status: Still Living Hx Family Asthma: No Hx Family Congestive Heart Failure: No Hx Family Hypertension: No Hx Family Stroke: No Hx Cardiac Disease: No Hx Family Diabetes: No Hx Family Cancer: Yes - skin cancer Hx Family;Other: thyroid problems and seizures Father Family History: No Known Name: Marlon Age (years): 68 Living Status: Still Living Hx Family Asthma: - Sister Hx Family Congestive Heart Failure: No Hx Family Hypertension: Yes Hx Family Stroke: No Hx Cardiac Disease: Yes Hx Family Diabetes: No Age of Onset (years of age): 32 Hx Family Cancer: - Grandmother Lymphoma Physical Exam - Physical Exam General Appearance: Alert, Comfortable, No apparent distress Eye Exam: bilateral normal Ears, Nose, Throat: normal ENT inspection Neck: non-tender, full range of motion, supple, normal inspection Respiratory: chest non-tender, lungs clear, normal breath sounds, no respiratory distress, no accessory muscle use Cardiovascular/Chest: normal peripheral pulses, no edema, no gallop, no JVD, no murmur, tachycardia Peripheral Pulses: radial,right: 2+, radial,left: 2+ Gastrointestinal/Abdominal: normal bowel sounds, soft, tenderness - reports marked ttp throughout the abdomen even prior to palpation, suspicious exam. 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 Possibly now a psychosomatic component given recent surgery and g-tube placement. Consider also drug-seeking behavior, g-tube dislodgement vs other complication, SBO, gastroenteritis, ACS, PNA, other -obtain bloodwork, KUB w/gastrografin contrast, CXR, EKG -NS 1 L bolus, Zofran 4 mg IV, Toradol 15 mg IV (per patient request - no true allergy), consult Dr. Lester when results back 06/06/20 14:00 -Patient remains stable. Pain seems to be improving. She reports severe anxiety and is asking for Ativan or Benadryl IV. We will give one-time dose of Ativan 1 mg IV prior to ED discharge. -Lab work reveals largely unchanged from usual. Bicarb is slightly decreased likely from vomiting and diarrhea. Anion gap however is at upper limits of normal, which is usual for the patient. She has been given 1 L normal saline bolus in the ED and has been without any further vomiting or diarrhea with the ED observation. X-ray imaging of the abdomen reveals percutaneous enterostomy tube in good position without any leakage of Gastrografin per my read. There is no evidence of acute processes or bowel obstruction. -Discussed all findings with patient. Suspect most likely that her pain is from local skin irritation and dermatitis from the percutaneous tube. However given the redness and tenderness, it may be that she is developing an early cellulitis. We will place her on Augmentin 875 twice daily for 7 days, first dose here. Strongly advised follow-up closely with her surgeon and PCP. Discharged home in good condition, return warnings discussed. Nicolas Gross MD Billing #[id number] 06/06/20 11:57 IV Care:Saline Lock per Protoc QSHIFT Sodium Chloride 0.9% (Flush) [Saline Flush Syringe] 10 ml IV PRN PRN URINALYSIS Stat 06/06/20 12:15 EKG STAT Laboratory Results - last 24 hr 06/06/20 06/06/20 06/06/20 12:10 12:10 12:10 WBC 7.5 RBC 4.45 Hgb 11.6 L Hct 35.0 L MCV 78.5 L MCH 26.0 L MCHC 33.1 RDW 13.3 Plt Count 388 MPV 8.5 Absolute Neuts (auto) 6.10 Absolute Lymphs (auto) 0.90 L Absolute Monos (auto) 0.30 Absolute Eos (auto) 0.10 Absolute Basos (auto) 0.00 Neutrophils % 81.3 H Lymphocytes % 12.3 L Monocytes % 4.6 Eosinophils % 1.3 Basophils % 0.5 Sodium 132 L Potassium 4.2 Chloride 98 L Carbon Dioxide 18 L Anion Gap 20.2 H BUN 13 Creatinine 0.59 L BUN/Creatinine Ratio 22.0 H Random Glucose 280 H Serum Osmolality 274.7 L Lactic Acid 1.3 Calcium 9.0 Total Bilirubin 0.8 Direct Bilirubin 0.1 Indirect Bilirubin 0.7 AST 26 ALT 39 Alkaline Phosphatase 170 H Troponin I Serum Total Protein 7.5 Albumin 3.6 Amylase 31 Lipase 22 Serum Ketones 06/06/20 06/06/20 12:10 12:10 WBC RBC Hgb Hct MCV MCH MCHC RDW Plt Count MPV Absolute Neuts (auto) Absolute Lymphs (auto) Absolute Monos (auto) Absolute Eos (auto) Absolute Basos (auto) Neutrophils % Lymphocytes % Monocytes % Eosinophils % Basophils % Sodium Potassium Chloride Carbon Dioxide Anion Gap BUN Creatinine BUN/Creatinine Ratio Random Glucose Serum Osmolality Lactic Acid Calcium Total Bilirubin Direct Bilirubin Indirect Bilirubin AST ALT Alkaline Phosphatase Troponin I < 0.02 Serum Total Protein Albumin Amylase Lipase Serum Ketones Small - EKG/XRAY/CT EKG: Sinus, Tachy - HR 100, no ST elevs, q waves noted in anteroseptal leads indicative of possible prior infarct, axis normal, intervals normal, compared to 05/15/2020 EKG appears unchanged XRAY: chest - no acute processes per my read Departure - Departure Clinical Impression: Gastroparesis, Hyperglycemia Uncontrolled diabetes mellitus Qualifiers: Diabetes mellitus type: type 1 Glycemic state: with hyperglycemia Qualified Code(s): E10.65 - Type 1 diabetes mellitus with hyperglycemia Time of Disposition: 13:57 Disposition: Discharge to Home or Self Care Condition: Good Instructions: Cellulitis (Skin Infection), Adult (DC) Diet: resume usual diet Activity: increase activity as tolerated Referrals: JUSTINO MARQUEZ IV, AIR POLLUTION SPECIALIST [Primary Care Provider] - 1-2 Weeks Prescriptions: Amoxicillin & Pot Clavulanate [Augmentin Tab] 875 mg PO BID 7 Days #14 tab Home Medications: Ambulatory Orders Mometasone Furoate [Elocon] 0.1 % TOP DAILY PRN 11/07/17 Epinephrine [Epipen 2-Mikael] 0.3 mg IJ ONCE PRN #1 pack 03/26/18 Buspirone HCl 30 mg PO BID 10/23/18 Diazepam 5 mg PO TID 02/21/19 Gabapentin 300 mg PO TID 11/11/19 Hydrocodone-Acetaminophen [[place] 7.5-325 mg] 1 tab PO TID 11/11/19 Vilazodone HCl [Viibryd] 40 mg PO DAILY 11/11/19 tiZANidine [Zanaflex] 12 mg PO Q8H PRN 11/11/19 Ondansetron Odt [Zofran Odt] 8 mg PO Q8H PRN #12 tab 12/25/19 Albuterol Sulfate [Proair Hfa] 2 puff INH Q6H PRN 01/01/20 Azelastine HCl [Azelastine Hydrochloride] 0.1 % INH PRN PRN 01/01/20 Esomeprazole Magnesium [Nexium] 40 mg PO PRN 01/01/20 Glucagon [Baqsimi One Pack] 3 mg NA PRN 01/01/20 Hydroxyzine HCl [Hydroxyzine Hydrochloride] 50 mg PO QID 01/01/20 Insulin Glargine [Lantus Solostar] 10 unit SC BEDTIME 01/01/20 Insulin Glargine [Lantus Solostar] 25 unit SC DAILY 01/01/20 Mometasone Furoate 0.1 % TOP PRN 01/01/20 Naloxone HCl [Narcan] 4 mg NA PRN 01/01/20 Promethazine Tab [Phenergan Tablet] 25 mg PO .Q4H PRN 01/01/20 Salmeterol Xinafoate [Serevent Diskus] 50 mcg IN PRN 01/01/20 Triamcinolone 0.5% Cream [Kenalog 0.5% Cream] 1 applic TOP PRN 01/01/20 Promethazine Supp [Phenergan Suppository] 12.5 mg AL Q6H PRN #15 sup 02/20/20 Amoxicillin & Pot Clavulanate [Augmentin Tab] 875 mg PO BID 7 Days #14 tab 09/24 Additional Instructions: Keep the skin around the feeding tube entry site clean and dry and apply generous topical barrier ointment such as zinc oxide or Vaseline 2-3 times per day to prevent skin aggravation by moisture and rubbing. Follow-up as scheduled with your surgeon and with your primary care physician. Return to the ED if you develop new or concerning symptoms.
[2020-06-06] MEDS ORDERED: KETOROLAC TROMETHAMINE INJ 30 MG/ML VIAL IV ONE (12:08)
--- NOTE | 2020-06-06 13:46 | RAD ---
EXAM DESCRIPTION: Abdomen 1 View CLINICAL HISTORY: 44 years Female, abdominal pain s/p feeding tube placement COMPARISON: None. Findings: 1 view(s)/radiograph(s) Location: abdomen Nonobstructive bowel gas pattern. No suspicious calcification. No acute osseous abnormalities. Soft tissues are unremarkable. Moderate stool volume. Cholecystectomy. Left midabdomen percutaneous enterostomy catheter. Visualized lung bases are clear. No free air. IMPRESSION: Nonobstructive bowel gas pattern. Electronically signed by: Philip Abdi MD 06/06/2020 1:45 PM MAKE UP GIRL
--- NOTE | 2020-06-06 13:47 | RAD ---
EXAM DESCRIPTION: Chest,1 View CLINICAL HISTORY: 44 years Female, chest pain COMPARISON: None. FINDINGS: One view/radiograph Heart size and pulmonary vessels are within normal limits. There is no pneumothorax or pleural effusion. The lungs are clear bilaterally. The soft tissues are unremarkable. No acute osseous findings. Right chest wall port tip overlying the SVC. IMPRESSION: No acute cardiopulmonary abnormality. Electronically signed by: Philip Abdi MD 06/06/2020 1:46 PM [employer]AC[employer] MEMBER
--- NOTE | 2020-06-06 13:48 | RAD ---
EXAM DESCRIPTION: Abdomen 1 View CLINICAL HISTORY: 44 years Female, abdominal pain s/p feeding tube placement COMPARISON: Earlier today Findings: Two view(s)/radiograph(s) Left mid abdomen percutaneous enterostomy catheter. Opacification of the bowel. No evidence of enteric contrast leak. Otherwise no significant interval change. IMPRESSION: No evidence of enteric contrast leak. Electronically signed by: Philip Abdi MD 06/06/2020 1:47 PM [employer] AGENT
[2020-06-06] MEDS ORDERED: AMOXICILLIN & POT CLAVULANATE 875 MG TAB PO ONE (13:53)
[2020-06-06] MEDS ORDERED: HEPARIN SODIUM 100 U/ML 5 ML SYG IV ONE ×2 (13:54→13:58)
[2020-06-06] MEDS ORDERED: ZINC OXIDE OINT 30 GM TUBE TOP ONE (13:55)
[2020-06-06 14:27] VITALS: BP 105/74; TEMP 98.4; O2SAT 98
== END 2020-06-06 14:05 | disposition home or self-care (01) ==
LOC: ER 11:50
DX: E10.43 Type 1 diabetes mellitus with diabetic autonomic (poly)neuropathy (principal); E10.65 Type 1 diabetes mellitus with hyperglycemia; K31.84 Gastroparesis; R00.0 Tachycardia, unspecified; R56.9 Unspecified convulsions; J45.909 Unspecified asthma, uncomplicated; E07.9 Disorder of thyroid, unspecified; K21.9 Gastro-esophageal reflux disease without esophagitis; Z93.1 Gastrostomy status; Z87.891 Personal history of nicotine dependence; Z79.4 Long term (current) use of insulin; Z79.899 Other long term (current) drug therapy; Z91.013 Allergy to seafood; Z88.8 Allergy status to other drugs, medicaments and biological substances
CPT/HCPCS: 36415; 71045; 74018; 80048; 80076; 82009; 82150; 83605; 83690; 84484; 85025; 93005; J1642; J1885; J2060; J2405; J7030

== ENCOUNTER 2020-06-23 18:14 | Emergency (ER) | payer MEDICARE, MEDICAID ==
[2020-06-23] MEDS ORDERED: BUTORPHANOL TARTRATE 2 MG/ML VIAL IM ONE (19:13)
[2020-06-23 19:14] VITALS: TEMP 97.7; O2SAT 98
--- NOTE | 2020-06-23 19:43 | ED.PDOC ---
History of Present Illness - General Chief Complaint: General Time Seen by Provider: 06/23/20 19:13 Source: patient Exam Limitations: no limitations - History of Present Illness Initial Comments: The patient is a 44-year-old female presented to the emergency room secondary to a stitch coming out of her feeding tube domínguez. No evidence of infection. Timing/Duration: 4-6 hours Severity: mild Improving Factors: nothing Worsening Factors: nothing Associated Symptoms: denies symptoms Allergies/Adverse Reactions: Allergies Fish Allergy Allergy (Verified 06/06/20 12:16) Haloperidol [From Haldol] Allergy (Verified 06/06/20 12:16) Ketorolac Tromethamine [From Toradol] Adverse Reaction (Verified 06/06/20 12:16) Metoclopramide [From Reglan] Adverse Reaction (Verified 06/06/20 12:16) peanut Allergy (Severe, Uncoded 06/06/20 12:16) Home Medications: Ambulatory Orders Mometasone Furoate [Elocon] 0.1 % TOP DAILY PRN 11/07/17 Epinephrine [Epipen 2-Mikael] 0.3 mg IJ ONCE PRN #1 pack 03/26/18 Buspirone HCl 30 mg PO BID 10/23/18 Diazepam 5 mg PO TID 02/21/19 Gabapentin 300 mg PO TID 11/11/19 Hydrocodone-Acetaminophen [[place] 7.5-325 mg] 1 tab PO TID 11/11/19 Vilazodone HCl [Viibryd] 40 mg PO DAILY 11/11/19 tiZANidine [Zanaflex] 12 mg PO Q8H PRN 11/11/19 Ondansetron Odt [Zofran Odt] 8 mg PO Q8H PRN #12 tab 12/25/19 Albuterol Sulfate [Proair Hfa] 2 puff INH Q6H PRN 01/01/20 Azelastine HCl [Azelastine Hydrochloride] 0.1 % INH PRN PRN 01/01/20 Esomeprazole Magnesium [Nexium] 40 mg PO PRN 01/01/20 Glucagon [Baqsimi One Pack] 3 mg NA PRN 01/01/20 Hydroxyzine HCl [Hydroxyzine Hydrochloride] 50 mg PO QID 01/01/20 Insulin Glargine [Lantus Solostar] 10 unit SC BEDTIME 01/01/20 Insulin Glargine [Lantus Solostar] 25 unit SC DAILY 01/01/20 Mometasone Furoate 0.1 % TOP PRN 01/01/20 Naloxone HCl [Narcan] 4 mg NA PRN 01/01/20 Promethazine Tab [Phenergan Tablet] 25 mg PO .Q4H PRN 01/01/20 Salmeterol Xinafoate [Serevent Diskus] 50 mcg IN PRN 01/01/20 Triamcinolone 0.5% Cream [Kenalog 0.5% Cream] 1 applic TOP PRN 01/01/20 Promethazine Supp [Phenergan Suppository] 12.5 mg [place] Q6H PRN #15 sup 02/20/20 Amoxicillin & Pot Clavulanate [Augmentin Tab] 875 mg PO BID 7 Days #14 tab 06/06/20 Review of Systems - Review of Systems Constitutional: States: no symptoms reported EENTM: States: no symptoms reported Respiratory: States: no symptoms reported Cardiology: States: no symptoms reported Gastrointestinal/Abdominal: States: no symptoms reported Genitourinary: States: no symptoms reported Musculoskeletal: States: no symptoms reported Skin: States: no symptoms reported Neurological: States: no symptoms reported Endocrine: States: no symptoms reported All other Systems: No Change from Baseline Past Medical History (General) - Patient Medical History Hx Seizures: No Hx Stroke: No Hx Dementia: No Hx Asthma: No Hx of COPD: No Hx Cardiac Disorders: No Hx Congestive Heart Failure: No Hx Pacemaker: No Hx Hypertension: No Hx Thyroid Disease: No Hx Diabetes: Yes Hx Gastroesophageal Reflux: No Hx Renal Disease: No Hx Cancer: No Hx of HIV: No Hx Hepatitis C: No Hx MRSA: No MRSA Source:: Blood Surgical History: appendectomy, cholecystectomy, Hysterectomy - Vaccination History Hx Tetanus, Diphtheria Vaccination: Yes Hx Influenza Vaccination: Yes Hx Pneumococcal Vaccination: Yes - Social History Hx Tobacco Use: Yes - Half pack a day Hx Chewing Tobacco Use: No Hx Alcohol Use: No Hx Substance Use: Yes Hx Substance Use Treatment: No Hx Depression: Yes Feels Threatened In Home Enviroment: No Feels Threatened In a Relationship: No Hx Physical Abuse: No Hx Emotional Abuse: No Hx Suspected Abuse: No - Female History Patient is a Female of Child Bearing Age (10 -59 yrs old): Yes Hx Last Menstrual Period: 11/05/11 Patient : No - Triage Comment ED Triage Comment: The patient walked from the ER waiting room into the trauma room and was alert and oriented times 4. She advised that she had a suture at the top of her G tube that had pulled loose today. The site around the sutures did look red but had no noted disharge. Family Medical History - Family History Mother Family History: No Known Name: April Age (years): 70 Living Status: Still Living Hx Family Asthma: No Hx Family Congestive Heart Failure: No Hx Family Hypertension: No Hx Family Stroke: No Hx Cardiac Disease: No Hx Family Diabetes: No Hx Family Cancer: Yes - skin cancer Hx Family;Other: thyroid problems and seizures Father Family History: No Known Name: Marlon Age (years): 68 Living Status: Still Living Hx Family Asthma: - Sister Hx Family Congestive Heart Failure: No Hx Family Hypertension: Yes Hx Family Stroke: No Hx Cardiac Disease: Yes Hx Family Diabetes: No Age of Onset (years of age): 32 Hx Family Cancer: - Grandmother Lymphoma Physical Exam - Physical Exam General Appearance: Alert, Comfortable, No apparent distress Eye Exam: bilateral normal Ears, Nose, Throat: hearing grossly normal Neck: full range of motion - No torticollis today, supple Respiratory: lungs clear, normal breath sounds, no respiratory distress, no accessory muscle use Cardiovascular/Chest: normal peripheral pulses, regular rate, rhythm, no edema Peripheral Pulses: radial,right: 2+, radial,left: 2+ Gastrointestinal/Abdominal: non tender - Feeding tube is in place. Upper stitch is pulled out., soft Rectal Exam: deferred Extremity: normal range of motion, normal inspection, no calf tenderness, normal capillary refill Neurologic: health companion II-XII nml as tested, alert, normal mood/affect, oriented x 3 Skin Exam: normal color Comments: Vital Signs - 24 hr 06/23/20 19:07 Temperature 97.7 F Pulse Rate [ 101 H Pulse Ox] Respiratory 16 Rate Blood Pressure 114/86 [Left Arm] O2 Sat by Pulse 98 Oximetry Progress - Progress Progress: 06/23/20 19:42 The patient is a 44-year-old female presented to the emergency room secondary to having accidentally pulled out the upper stitch on her feeding tube fixator. This was replaced with a 3-0 Prolene without difficulty. She is to keep follow-up with her surgeon. ER warnings are given. After cleaningRisk and benefits of repair were explained and patient agreed to proceed. 1 simple sutures of 3-0 Prolene was placed after cleaning with alcohol. No complications. lana anderson [id number] Departure - Departure Clinical Impression: Complication of feeding tube Disposition: Discharge to Home or Self Care Condition: Fair Departure Forms: ED Discharge - Pt. Copy, Patient Portal Self Enrollment Diet: diabetic diet Activity: increase activity as tolerated Referrals: JUSTINO MARQUEZ IV, [employer] LEADER [Primary Care Provider] - 1-2 Weeks Home Medications: Ambulatory Orders Mometasone Furoate [Elocon] 0.1 % TOP DAILY PRN 11/07/17 Epinephrine [Epipen 2-Mikael] 0.3 mg IJ ONCE PRN #1 pack 03/26/18 Buspirone HCl 30 mg PO BID 10/23/18 Diazepam 5 mg PO TID 02/21/19 Gabapentin 300 mg PO TID 11/11/19 Hydrocodone-Acetaminophen [[place] 7.5-325 mg] 1 tab PO TID 11/11/19 Vilazodone HCl [Viibryd] 40 mg PO DAILY 11/11/19 tiZANidine [Zanaflex] 12 mg PO Q8H PRN 11/11/19 Ondansetron Odt [Zofran Odt] 8 mg PO Q8H PRN #12 tab 12/25/19 Albuterol Sulfate [Proair Hfa] 2 puff INH Q6H PRN 01/01/20 Azelastine HCl [Azelastine Hydrochloride] 0.1 % INH PRN PRN 01/01/20 Esomeprazole Magnesium [Nexium] 40 mg PO PRN 01/01/20 Glucagon [Baqsimi One Pack] 3 mg NA PRN 01/01/20 Hydroxyzine HCl [Hydroxyzine Hydrochloride] 50 mg PO QID 01/01/20 Insulin Glargine [Lantus Solostar] 10 unit SC BEDTIME 01/01/20 Insulin Glargine [Lantus Solostar] 25 unit SC DAILY 01/01/20 Mometasone Furoate 0.1 % TOP PRN 01/01/20 Naloxone HCl [Narcan] 4 mg NA PRN 01/01/20 Promethazine Tab [Phenergan Tablet] 25 mg PO .Q4H PRN 01/01/20 Salmeterol Xinafoate [Serevent Diskus] 50 mcg IN PRN 01/01/20 Triamcinolone 0.5% Cream [Kenalog 0.5% Cream] 1 applic TOP PRN 01/01/20 Promethazine Supp [Phenergan Suppository] 12.5 mg IA Q6H PRN #15 sup 02/20/20 Amoxicillin & Pot Clavulanate [Augmentin Tab] 875 mg PO BID 7 Days #14 tab 06/06/20 Additional Instructions: The patient is a 44-year-old female presented to the emergency room secondary to having accidentally pulled out the upper stitch on her feeding tube fixator. This was replaced with a 3-0 Prolene without difficulty. She is to keep follow-up with her surgeon. ER warnings are given.
[2020-06-23 19:47] VITALS: BP 112/78
== END 2020-06-23 19:55 | disposition home or self-care (01) ==
LOC: ER 18:14
DX: K94.23 Gastrostomy malfunction (principal); Y83.8 Other surgical procedures as the cause of abnormal reaction of the patient, or of later complication, without mention of misadventure at the time of the procedure; E11.9 Type 2 diabetes mellitus without complications; F32.9 Major depressive disorder, single episode, unspecified; Z87.891 Personal history of nicotine dependence; Z79.4 Long term (current) use of insulin; Z79.899 Other long term (current) drug therapy; Z91.013 Allergy to seafood; Z88.8 Allergy status to other drugs, medicaments and biological substances

== ENCOUNTER 2020-06-25 09:52 | Emergency (ER) | payer MEDICARE, MEDICAID ==
[2020-06-25] MEDS ORDERED: ONDANSETRON ODT 8 MG TAB SL ONE (10:03)
[2020-06-25] MEDS ORDERED: traMADol HCL 50 MG TAB PO ONE (10:03)
[2020-06-25] MEDS ORDERED: KETOROLAC TROMETHAMINE 10 MG TAB PO ONE (10:07)
[2020-06-25] MEDS ORDERED: LIDOCAINE 1% 10 ML VIAL INJ ONE (10:08)
--- NOTE | 2020-06-25 10:16 | ED.PDOC ---
History of Present Illness - General Chief Complaint: GI Problem Stated Complaint: feedig tube suture out Time Seen by Provider: 06/25/20 09:55 Source: patient Exam Limitations: no limitations - History of Present Illness Initial Comments: This is a 44-year-old female with longstanding history of type 1 diabetes, chronic abdominal pain, diabetic gastroparesis, who is well-known to the emergency department with drug-seeking behavior presenting to the emergency department reporting pain around her gastrostomy site. She was seen in the emergency department earlier this month when her G-tube came out and requested that it be sutured in place. She states the sutures are broken. She is reporting abdominal pain around the site, but states she has not used it for several weeks. She states she is been able to eat and drink normally for the past several weeks without any difficulty. She denies any fever. She also reports some erythema this developed around the site. She claims that she is dehydrated, although she says that she has been eating and drinking normally and having normal urine output. She vomited 2 times a few days ago, but has not vomited since. No diarrhea. She denies any issues getting feeds through her G- tube on recent feedings. Allergies/Adverse Reactions: Allergies Fish Allergy Allergy (Verified 06/06/20 12:16) Haloperidol [From Haldol] Allergy (Verified 06/06/20 12:16) Ketorolac Tromethamine [From Toradol] Adverse Reaction (Verified 06/06/20 12:16) Metoclopramide [From Reglan] Adverse Reaction (Verified 06/06/20 12:16) peanut Allergy (Severe, Uncoded 06/06/20 12:16) Home Medications: Ambulatory Orders Mometasone Furoate [Elocon] 0.1 % TOP DAILY PRN 11/07/17 Epinephrine [Epipen 2-Mikael] 0.3 mg IJ ONCE PRN #1 pack 03/26/18 Buspirone HCl 30 mg PO BID 10/23/18 Diazepam 5 mg PO TID 02/21/19 Gabapentin 300 mg PO TID 11/11/19 Hydrocodone-Acetaminophen [[place] 7.5-325 mg] 1 tab PO TID 11/11/19 Vilazodone HCl [Viibryd] 40 mg PO DAILY 11/11/19 tiZANidine [Zanaflex] 12 mg PO Q8H PRN 11/11/19 Ondansetron Odt [Zofran Odt] 8 mg PO Q8H PRN #12 tab 12/25/19 Albuterol Sulfate [Proair Hfa] 2 puff INH Q6H PRN 01/01/20 Azelastine HCl [Azelastine Hydrochloride] 0.1 % INH PRN PRN 01/01/20 Esomeprazole Magnesium [Nexium] 40 mg PO PRN 01/01/20 Glucagon [Baqsimi One Pack] 3 mg NA PRN 01/01/20 Hydroxyzine HCl [Hydroxyzine Hydrochloride] 50 mg PO QID 01/01/20 Insulin Glargine [Lantus Solostar] 10 unit SC BEDTIME 01/01/20 Insulin Glargine [Lantus Solostar] 25 unit SC DAILY 01/01/20 Mometasone Furoate 0.1 % TOP PRN 01/01/20 Naloxone HCl [Narcan] 4 mg NA PRN 01/01/20 Promethazine Tab [Phenergan Tablet] 25 mg PO .Q4H PRN 01/01/20 Salmeterol Xinafoate [Serevent Diskus] 50 mcg IN PRN 01/01/20 Triamcinolone 0.5% Cream [Kenalog 0.5% Cream] 1 applic TOP PRN 01/01/20 Promethazine Supp [Phenergan Suppository] 12.5 mg [place] Q6H PRN #15 sup 02/20/20 Amoxicillin & Pot Clavulanate [Augmentin Tab] 875 mg PO BID 7 Days #14 tab 06/06/20 Review of Systems - Review of Systems Constitutional: Denies: chills, fever EENTM: Denies: nose congestion, throat pain Respiratory: Denies: cough, short of breath Cardiology: Denies: chest pain, palpitations Gastrointestinal/Abdominal: States: abdominal pain, vomiting. Denies: diarrhea, nausea Genitourinary: Denies: dysuria, hematuria Musculoskeletal: Denies: joint pain, joint swelling, muscle stiffness Skin: Denies: dryness, lesions Neurological: Denies: headache, numbness Endocrine: Denies: increased hunger, increased thirst, increased urine Hematologic/Lymphatic: States: no symptoms reported Past Medical History (General) - Patient Medical History Hx Seizures: No Hx Stroke: No Hx Dementia: No Hx Asthma: No Hx of COPD: No Hx Cardiac Disorders: No Hx Congestive Heart Failure: No Hx Pacemaker: No Hx Hypertension: No Hx Thyroid Disease: No Hx Diabetes: Yes Hx Gastroesophageal Reflux: No Hx Renal Disease: No Hx Cancer: No Hx of HIV: No Hx Hepatitis C: No Hx MRSA: No MRSA Source:: Blood - Vaccination History Hx Tetanus, Diphtheria Vaccination: Yes Hx Influenza Vaccination: Yes Hx Pneumococcal Vaccination: Yes - Social History Hx Tobacco Use: Yes - Half pack a day Hx Chewing Tobacco Use: No Hx Alcohol Use: No Hx Substance Use: Yes Hx Substance Use Treatment: No Hx Depression: Yes Hx Physical Abuse: No Hx Emotional Abuse: No Hx Suspected Abuse: No - Female History Hx Last Menstrual Period: 11/05/11 Patient : No Family Medical History - Family History Mother Family History: No Known Name: April Age (years): 70 Living Status: Still Living Hx Family Asthma: No Hx Family Congestive Heart Failure: No Hx Family Hypertension: No Hx Family Stroke: No Hx Cardiac Disease: No Hx Family Diabetes: No Hx Family Cancer: Yes - skin cancer Hx Family;Other: thyroid problems and seizures Father Family History: No Known Name: Marlon Age (years): 68 Living Status: Still Living Hx Family Asthma: - Sister Hx Family Congestive Heart Failure: No Hx Family Hypertension: Yes Hx Family Stroke: No Hx Cardiac Disease: Yes Hx Family Diabetes: No Age of Onset (years of age): 32 Hx Family Cancer: - Grandmother Lymphoma Physical Exam - Physical Exam General Appearance: Alert, Comfortable Ears, Nose, Throat: hearing grossly normal, normal ENT inspection Neck: full range of motion, supple Respiratory: lungs clear, normal breath sounds, no respiratory distress Cardiovascular/Chest: normal peripheral pulses, regular rate, rhythm, no edema, no gallop, no JVD, no murmur Gastrointestinal/Abdominal: non tender, soft, other - There is a G-tube in place in the left upper quadrant. She has some drainage from the stoma and granulation tissue at the stoma, this does not appear purulent. She has some chronic appearing erythema, no induration, no fluctuance, no evidence of abscess. Neurologic: no motor/sensory deficits, alert, oriented x 3 Skin Exam: warm/dry Progress - Progress Progress: 06/25/20 10:18 This patient is well-known to me, well-known to the emergency department. She had 3 ER visits this month related to her G-tube. She has longstanding history of drug-seeking behavior. She has a concerning allergy list. When she arrived, she stated "I think I need a bag of fluid and some Stadol through my port." Her vital signs are normal, she does not appear clinically dehydrated at this time. She states clearly that she has been eating and drinking normally for several weeks. My suspicion for dehydration is quite low at this time. I offered CT to evaluate stoma to see if there is any adjacent abscess. She declined a CT. She has not actively vomiting, and tolerating p.o., I do not feel parenteral pain medications are indicated at this time. I offered p.o. tramadol, but the patient states "I already took the maximum dose". She then requested Toradol. I explained that this is listed as an allergy, but she states she can tolerate it. Will give oral Toradol and Zofran. I will suture her G-tube in place with a Olegario sandal style suture. 06/25/20 10:36 *PROCEDURE NOTE* G-tube was sutured in place with one single simple suture with 2-0 Ethilon. I also anchored the line down with a single Olegario sandal style suture using 2-0 Ethilon. The skin was cleaned and prepped with alcohol. Local anesthetic with lidocaine 1% without epi was used. There were no complications. Patient tolerated well. 06/25/20 10:37 Patient has an appointment with her general surgeon who performed her gastrostomy placement in 1 week. I recommended she keep that appointment and they can remove the sutures at that time. Strict warnings given to return the emergency room for worsening pain, fever, increased drainage, intractable vomiting, spreading redness, worsening abdominal pain, or any other concerns. Departure - Departure Clinical Impression: Gastrostomy tube in place, Chronic abdominal pain Disposition: Discharge to Home or Self Care Condition: Good Departure Forms: ED Discharge - Pt. Copy, Patient Portal Self Enrollment Instructions: Percutaneous Endoscopic Gastrostomy Referrals: JUSTINO MARQUEZ IV, CLOTH CHECKER [Primary Care Provider] - 1-2 Weeks Home Medications: Ambulatory Orders Mometasone Furoate [Elocon] 0.1 % TOP DAILY PRN 11/07/17 Epinephrine [Epipen 2-Mikael] 0.3 mg IJ ONCE PRN #1 pack 03/26/18 Buspirone HCl 30 mg PO BID 10/23/18 Diazepam 5 mg PO TID 02/21/19 Gabapentin 300 mg PO TID 11/11/19 Hydrocodone-Acetaminophen [[place] 7.5-325 mg] 1 tab PO TID 11/11/19 Vilazodone HCl [Viibryd] 40 mg PO DAILY 11/11/19 tiZANidine [Zanaflex] 12 mg PO Q8H PRN 11/11/19 Ondansetron Odt [Zofran Odt] 8 mg PO Q8H PRN #12 tab 12/25/19 Albuterol Sulfate [Proair Hfa] 2 puff INH Q6H PRN 01/01/20 Azelastine HCl [Azelastine Hydrochloride] 0.1 % INH PRN PRN 01/01/20 Esomeprazole Magnesium [Nexium] 40 mg PO PRN 01/01/20 Glucagon [Baqsimi One Pack] 3 mg NA PRN 01/01/20 Hydroxyzine HCl [Hydroxyzine Hydrochloride] 50 mg PO QID 01/01/20 Insulin Glargine [Lantus Solostar] 10 unit SC BEDTIME 01/01/20 Insulin Glargine [Lantus Solostar] 25 unit SC DAILY 01/01/20 Mometasone Furoate 0.1 % TOP PRN 01/01/20 Naloxone HCl [Narcan] 4 mg NA PRN 01/01/20 Promethazine Tab [Phenergan Tablet] 25 mg PO .Q4H PRN 01/01/20 Salmeterol Xinafoate [Serevent Diskus] 50 mcg IN PRN 01/01/20 Triamcinolone 0.5% Cream [Kenalog 0.5% Cream] 1 applic TOP PRN 01/01/20 Promethazine Supp [Phenergan Suppository] 12.5 mg FL Q6H PRN #15 sup 02/20/20 Amoxicillin & Pot Clavulanate [Augmentin Tab] 875 mg PO BID 7 Days #14 tab 06/06/20 Additional Instructions: Follow-up with your surgeon as scheduled in 1 week. They can remove the sutures at that time. Continue with p.o. feeds as tolerated and G-tube feedings as needed
[2020-06-25 10:27] VITALS: O2SAT 100
[2020-06-25 10:51] VITALS: BP 118/79; TEMP 97.8
== END 2020-06-25 10:51 | disposition home or self-care (01) ==
LOC: ER 09:52
DX: Z43.1 Encounter for attention to gastrostomy (principal); G89.29 Other chronic pain; R10.9 Unspecified abdominal pain; F32.9 Major depressive disorder, single episode, unspecified; E11.9 Type 2 diabetes mellitus without complications; R11.10 Vomiting, unspecified; Z87.891 Personal history of nicotine dependence; Z79.899 Other long term (current) drug therapy; Z87.19 Personal history of other diseases of the digestive system; Z79.4 Long term (current) use of insulin; Z91.013 Allergy to seafood

== ENCOUNTER 2020-06-26 23:18 | Emergency (ER) | payer MEDICARE, MEDICAID ==
[2020-06-26] MEDS ORDERED: PROMETHAZINE HCL INJ 12.5 MG in SODIUM CHLORIDE 0.9% 50ML 50 ML IVPB ONE (23:54)
[2020-06-26] MEDS ORDERED: SODIUM CHLORIDE 0.9% 1000ML 1,000 ML IVS ONE (23:58)
--- NOTE | 2020-06-27 | ED.PDOC ---
History of Present Illness - General Chief Complaint: GI Problem Stated Complaint: vomiting, abd pain Time Seen by Provider: 06/26/20 23:52 Information Source: patient Exam Limitations: clinical condition Additional Information: PATIENT W/ LONG STANDING HISTORY OF OPIOID ABUSE AND DEPENDENCY, RECURRENT WITHDRAWAL, CHRONIC AND RECURRENT ABD PAIN" DIABETIC GASTROPAREISIS, RECENT REHAB HOSPITALIZATION FOR RECURRENT DEHYDRATION MALNURISHMENT, HAD PEG TUBE PLACED. PATIENT DAILY TO WEEKLY ER VISITOR FOR SIMILAR COMPLAINTS. C/O TODAY OF N/V, ANOREXIA, DEHYDRATION, ABD PAIN AND DIARHEA. PATIENT INSISTING TONIGHT, "THERE MUST BE SOMETHING WRONG IN HER ABDOMEN OR WITH THE PEG TUBE BECAUSE "I SHOULDN'T BE HURTING LIKE THIS, I HAVE HIGH PAIN TOLERANCE, SOMETHING MUST BE WRONG INSIDE ME". PATIENT SEEN EARLIER IN THE DAY FOR VARIOUS SIMILAR COMPLAINTS. PATIENT STATES SHE NORMALLY TAKES 3 HYDROCODONE 10 MG PER DAY BUT ONLY TOOK 1 YESTERDAY, STATES "SHE TRIES NOT TO TAKE DAILY", STATES i KNOW IM NOT IN WITHDRAWAL BECAUSE " I HAVE SOME AT HOME" ASKING FOR STADOL. Review of Systems - Review of Systems Constitutional: States: see HPI Respiratory: States: no symptoms reported Cardiology: States: no symptoms reported Gastrointestinal/Abdominal: States: see HPI, abdominal pain, diarrhea, nausea, vomiting Genitourinary: States: no symptoms reported Musculoskeletal: States: no symptoms reported Past Medical History (General) - Patient Medical History Hx Seizures: No Hx Stroke: No Hx Dementia: No Hx Asthma: No Hx of COPD: No Hx Cardiac Disorders: No Hx Congestive Heart Failure: No Hx Pacemaker: No Hx Hypertension: No Hx Thyroid Disease: No Hx Diabetes: Yes Hx Gastroesophageal Reflux: No Hx Renal Disease: No Hx Cancer: No Hx of HIV: No Hx Hepatitis C: No Hx MRSA: No MRSA Source:: Blood Surgical History: appendectomy, other - Vaccination History Hx Tetanus, Diphtheria Vaccination: Yes Hx Influenza Vaccination: Yes Hx Pneumococcal Vaccination: Yes - Social History Hx Tobacco Use: Yes - Half pack a day Hx Chewing Tobacco Use: No Hx Alcohol Use: No Hx Substance Use: Yes Hx Substance Use Treatment: No Hx Depression: Yes Hx Physical Abuse: No Hx Emotional Abuse: No Hx Suspected Abuse: No - Female History Hx Last Menstrual Period: 11/05/11 Patient : No Family Medical History - Family History Mother Family History: No Known Name: April Age (years): 70 Living Status: Still Living Hx Family Asthma: No Hx Family Congestive Heart Failure: No Hx Family Hypertension: No Hx Family Stroke: No Hx Cardiac Disease: No Hx Family Diabetes: No Hx Family Cancer: Yes - skin cancer Hx Family;Other: thyroid problems and seizures Father Family History: No Known Name: Marlon Age (years): 68 Living Status: Still Living Hx Family Asthma: - Sister Hx Family Congestive Heart Failure: No Hx Family Hypertension: Yes Hx Family Stroke: No Hx Cardiac Disease: Yes Hx Family Diabetes: No Age of Onset (years of age): 32 Hx Family Cancer: - Grandmother Lymphoma Physical Exam - Physical Exam General Appearance: Restless Eyes, Ears, Nose, Throat Exam: PERRL/EOMI, normal ENT inspection Respiratory: normal breath sounds Cardiovascular/Chest: normal peripheral pulses, regular rate, rhythm Peripheral Pulses: No deficit Gastrointestinal/Abdominal: normal bowel sounds, non tender, soft Departure - Departure Clinical Impression: Acute opioid withdrawal, Opioid abuse with withdrawal, Volume depletion Diabetes mellitus with hyperglycemia Qualifiers: Diabetes mellitus type: type 2 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 Copy, Patient Portal Self Enrollment Referrals: JUSTINO MARQUEZ IV [facility] [Primary Care Provider] - 1-2 Weeks Home Medications: Ambulatory Orders Mometasone Furoate [Elocon] 0.1 % TOP DAILY PRN 11/07/17 Epinephrine [Epipen 2-Mikael] 0.3 mg IJ ONCE PRN #1 pack 03/26/18 Buspirone HCl 30 mg PO BID 10/23/18 Diazepam 5 mg PO TID 02/21/19 Gabapentin 300 mg PO TID 11/11/19 Hydrocodone-Acetaminophen [[place] 7.5-325 mg] 1 tab PO TID 11/11/19 Vilazodone HCl [Viibryd] 40 mg PO DAILY 11/11/19 tiZANidine [Zanaflex] 12 mg PO Q8H PRN 11/11/19 Ondansetron Odt [Zofran Odt] 8 mg PO Q8H PRN #12 tab 12/25/19 Albuterol Sulfate [Proair Hfa] 2 puff INH Q6H PRN 01/01/20 Azelastine HCl [Azelastine Hydrochloride] 0.1 % INH PRN PRN 01/01/20 Esomeprazole Magnesium [Nexium] 40 mg PO PRN 01/01/20 Glucagon [Baqsimi One Pack] 3 mg NA PRN 01/01/20 Hydroxyzine HCl [Hydroxyzine Hydrochloride] 50 mg PO QID 01/01/20 Insulin Glargine [Lantus Solostar] 10 unit SC BEDTIME 01/01/20 Insulin Glargine [Lantus Solostar] 25 unit SC DAILY 01/01/20 Mometasone Furoate 0.1 % TOP PRN 01/01/20 Naloxone HCl [Narcan] 4 mg NA PRN 01/01/20 Promethazine Tab [Phenergan Tablet] 25 mg PO .Q4H PRN 01/01/20 Salmeterol Xinafoate [Serevent Diskus] 50 mcg IN PRN 01/01/20 Triamcinolone 0.5% Cream [Kenalog 0.5% Cream] 1 applic TOP PRN 01/01/20 Promethazine Supp [Phenergan Suppository] 12.5 mg MD Q6H PRN #15 sup 02/20/20 Amoxicillin & Pot Clavulanate [Augmentin Tab] 875 mg PO BID 7 Days #14 tab 06/06/20
[2020-06-27] MEDS ORDERED: KETOROLAC TROMETHAMINE INJ 60 MG/2 ML VIAL IM ONE (01:00)
[2020-06-27] MEDS ORDERED: INSULIN, REG.(HUMAN) 100 U/ML VIAL IV ONE (01:20)
--- NOTE | 2020-06-27 01:22 | CT ---
EXAM: CT Abdomen and Pelvis Without Intravenous Contrast CLINICAL HISTORY: The patient is 44 years old and is Female; abd pain TECHNIQUE: Axial computed tomography images of the abdomen and pelvis without intravenous contrast. Sagittal and coronal reformatted images were created and reviewed. This CT exam was performed using one or more of the following dose reduction techniques: automated exposure control, adjustment of the mA and/or kV according to patient size, and/or use of iterative reconstruction technique. COMPARISON: CT abdomen and pelvis 03/17/2020. FINDINGS: Lung bases: Unremarkable. No mass. No consolidation. ABDOMEN: Liver: Unremarkable. Gallbladder and bile ducts: Surgically absent gallbladder. No ductal dilation. Pancreas: Unremarkable. No ductal dilation. Spleen: Unremarkable. No splenomegaly. Adrenals: Unremarkable. No mass. Kidneys and ureters: Unremarkable. No obstructing stones. No hydronephrosis. Stomach and bowel: Postsurgical changes around the proximal colon. No obstruction. No mucosal thickening. PELVIS: Appendix: No findings to suggest acute appendicitis. Bladder: Unremarkable. No stones. Reproductive: Unremarkable as visualized. ABDOMEN and PELVIS: Intraperitoneal space: Small amount of fluid in the lower dependent pelvis which may be physiologic. No free air. Bones/joints: No acute fracture. No dislocation. Soft tissues: Unremarkable. Vasculature: Scattered atherosclerotic vascular calcifications. No abdominal aortic aneurysm. Lymph nodes: Unremarkable. No enlarged lymph nodes. Tubes, lines and devices: Enterostomy tube in the left lower quadrant terminating in the small bowel. IMPRESSION: No acute findings in the abdomen or pelvis. Electronically signed by: Ramos Naranjo MD 06/27/2020 1:20 AM [facility]
[2020-06-27 01:25] VITALS: O2SAT 98
[2020-06-27 02:00] VITALS: BP 121/62; TEMP 97.2
== END 2020-06-27 01:45 | disposition home or self-care (01) ==
LOC: ER 23:18
DX: R11.2 Nausea with vomiting, unspecified (principal); R10.84 Generalized abdominal pain; E11.65 Type 2 diabetes mellitus with hyperglycemia; F11.23 Opioid dependence with withdrawal; E86.9 Volume depletion, unspecified; R19.7 Diarrhea, unspecified; F32.9 Major depressive disorder, single episode, unspecified; Z79.4 Long term (current) use of insulin; Z87.891 Personal history of nicotine dependence; Z90.49 Acquired absence of other specified parts of digestive tract
CPT/HCPCS: 74176; 80053; 80307; 81001; 82948; 83690; 85025; A4216; J1885; J2060; J2550; J7030

== ENCOUNTER 2020-06-28 16:56 | Emergency (ER) | payer MEDICARE, MEDICAID ==
[2020-06-28] MEDS ORDERED: SODIUM CHLORIDE 0.9% 1000ML 1,000 ML IVS ONE (17:11)
[2020-06-28] MEDS ORDERED: SODIUM CHLORIDE 0.9% (FLUSH) 10 ML SYG IV PRN (17:11)
--- NOTE | 2020-06-28 17:29 | ED.PDOC ---
History of Present Illness - General Chief Complaint: Cardiovascular Problem Stated Complaint: left chest and abdominal pain Time Seen by Provider: 06/28/20 17:07 Source: patient, RN notes reviewed, Vital Signs reviewed, old records Exam Limitations: no limitations - History of Present Illness Initial Comments: Patient is a 44-year-old white female who presents with complaints of abdominal pain of acute onset just prior to arrival. She feels as if the pain is stabbing and moving up into her chest. Patient had a G-tube placed approximately 1 month ago. The pain is constant. It is radiating from her stomach up toward her chest. Timing/Duration: 1/2 hour Severity: severe Improving Factors: nothing Worsening Factors: nothing Associated Symptoms: chest pain, nausea/vomiting - nausea only Allergies/Adverse Reactions: Allergies Fish Allergy Allergy (Verified 06/28/20 17:08) Haloperidol [From Haldol] Allergy (Verified 06/28/20 17:08) Prochlorperazine [From Compazine] Allergy (Verified 06/28/20 17:08) Ketorolac Tromethamine [From Toradol] Adverse Reaction (Verified 06/28/20 17:08) Metoclopramide [From Reglan] Adverse Reaction (Verified 06/28/20 17:08) peanut Allergy (Severe, Uncoded 06/06/20 12:16) Home Medications: Ambulatory Orders Mometasone Furoate [Elocon] 0.1 % TOP DAILY PRN 11/07/17 Epinephrine [Epipen 2-Mikael] 0.3 mg IJ ONCE PRN #1 pack 03/26/18 Buspirone HCl 30 mg PO BID 10/23/18 Diazepam 5 mg PO TID 02/21/19 Gabapentin 300 mg PO TID 11/11/19 Hydrocodone-Acetaminophen [[place] 7.5-325 mg] 1 tab PO TID 11/11/19 Vilazodone HCl [Viibryd] 40 mg PO DAILY 11/11/19 tiZANidine [Zanaflex] 12 mg PO Q8H PRN 11/11/19 Ondansetron Odt [Zofran Odt] 8 mg PO Q8H PRN #12 tab 12/25/19 Albuterol Sulfate [Proair Hfa] 2 puff INH Q6H PRN 01/01/20 Azelastine HCl [Azelastine Hydrochloride] 0.1 % INH PRN PRN 01/01/20 Esomeprazole Magnesium [Nexium] 40 mg PO PRN 01/01/20 Glucagon [Baqsimi One Pack] 3 mg NA PRN 01/01/20 Hydroxyzine HCl [Hydroxyzine Hydrochloride] 50 mg PO QID 01/01/20 Insulin Glargine [Lantus Solostar] 10 unit SC BEDTIME 01/01/20 Insulin Glargine [Lantus Solostar] 25 unit SC DAILY 01/01/20 Mometasone Furoate 0.1 % TOP PRN 01/01/20 Naloxone HCl [Narcan] 4 mg NA PRN 01/01/20 Promethazine Tab [Phenergan Tablet] 25 mg PO .Q4H PRN 01/01/20 Salmeterol Xinafoate [Serevent Diskus] 50 mcg IN PRN 01/01/20 Triamcinolone 0.5% Cream [Kenalog 0.5% Cream] 1 applic TOP PRN 01/01/20 Promethazine Supp [Phenergan Suppository] 12.5 mg VT Q6H PRN #15 sup 02/20/20 Amoxicillin & Pot Clavulanate [Augmentin Tab] 875 mg PO BID 7 Days #14 tab 06/06/20 Review of Systems - Review of Systems Constitutional: States: no symptoms reported, see HPI. Denies: chills, fever, malaise, weakness EENTM: States: no symptoms reported. Denies: eye pain, blurred vision, double vision Respiratory: States: no symptoms reported. Denies: cough, short of breath, wheezing Cardiology: States: see HPI, chest pain. Denies: palpitations, syncope Gastrointestinal/Abdominal: States: see HPI, abdominal pain, nausea. Denies: diarrhea, vomiting Genitourinary: States: no symptoms reported. Denies: dysuria, frequency Musculoskeletal: States: no symptoms reported. Denies: back pain, joint pain, joint swelling, neck pain Skin: States: no symptoms reported. Denies: change in color, rash Neurological: States: no symptoms reported. Denies: headache, numbness, tingling, tremors Endocrine: States: no symptoms reported. Denies: increased hunger, increased thirst, increased urine Hematologic/Lymphatic: States: no symptoms reported. Denies: blood clots, easy bleeding All other Systems: No Change from Baseline Past Medical History (General) - Patient Medical History Hx Seizures: No Hx Stroke: No Hx Dementia: No Hx Asthma: No Hx of COPD: No Hx Cardiac Disorders: No Hx Congestive Heart Failure: No Hx Pacemaker: No Hx Hypertension: No Hx Thyroid Disease: No Hx Diabetes: Yes Hx Gastroesophageal Reflux: No Hx Renal Disease: No Hx Cancer: No Hx of HIV: No Hx Hepatitis C: No Hx MRSA: No MRSA Source:: Blood - Vaccination History Hx Tetanus, Diphtheria Vaccination: Yes Hx Influenza Vaccination: Yes Hx Pneumococcal Vaccination: Yes - Social History Hx Tobacco Use: Yes - Half pack a day Hx Chewing Tobacco Use: No Hx Alcohol Use: No Hx Substance Use: Yes Hx Substance Use Treatment: No Hx Depression: Yes Hx Physical Abuse: No Hx Emotional Abuse: No Hx Suspected Abuse: No - Female History Hx Last Menstrual Period: 11/05/11 Patient : No Family Medical History - Family History Mother Family History: No Known Name: April Age (years): 70 Living Status: Still Living Hx Family Asthma: No Hx Family Congestive Heart Failure: No Hx Family Hypertension: No Hx Family Stroke: No Hx Cardiac Disease: No Hx Family Diabetes: No Hx Family Cancer: Yes - skin cancer Hx Family;Other: thyroid problems and seizures Father Family History: No Known Name: Marlon Age (years): 68 Living Status: Still Living Hx Family Asthma: - Sister Hx Family Congestive Heart Failure: No Hx Family Hypertension: Yes Hx Family Stroke: No Hx Cardiac Disease: Yes Hx Family Diabetes: No Age of Onset (years of age): 32 Hx Family Cancer: - Grandmother Lymphoma Physical Exam - Physical Exam General Appearance: Alert, Anxious, Obvious distress, Restless, Unkempt, Well Developed Eye Exam: bilateral normal Ears, Nose, Throat: hearing grossly normal, normal pharynx - except for dry MM. Neck: non-tender, full range of motion, supple Respiratory: chest non-tender, lungs clear, normal breath sounds, no respiratory distress, no accessory muscle use Cardiovascular/Chest: normal peripheral pulses, regular rate, rhythm, no edema, no murmur Peripheral Pulses: radial,right: 2+, radial,left: 2+ Gastrointestinal/Abdominal: normal bowel sounds, tenderness - diffusely Back Exam: normal inspection, no CVA tenderness, no vertebral tenderness Extremity: normal range of motion, non-tender, normal inspection Neurologic: atm manager II-XII nml as tested, no motor/sensory deficits, alert, normal mood/affect, oriented x 3 Skin Exam: normal color, warm/dry Lymphatic: no adenopathy Progress - Progress Progress: Differential diagnosis: Bowel obstruction, diverticulitis, pancreatitis, ruptur ed viscus among others. 06/28/20 18:56 Patient's labs show that she has pancreatitis. CT is concerning for possible ruptured viscus as well as some infectious process. Plan on transferring patient back to [facility] in [place] where they placed the G-tube. I discussed this plan of care with the patient. She voices understanding and agreement. I will update this chart with further information regarding disposition. 06/28/20 20:50 Patient was accepted by her general surgeon at [facility] in [place] at 1900 hrs. Awaiting transfer at this time. Hao Zambrano M.D. #[id number] - Results/Orders Results/Orders: 06/28/20 17:11 IV Care:Saline Lock per Protoc QSHIFT Sodium Chloride 0.9% (Flush) [Saline Flush Syringe] 10 ml IV PRN PRN 06/28/20 17:12 Hold Metformin x 48Hrs [id number] 06/28/20 17:15 EKG STAT Laboratory Results - last 24 hr 06/28/20 06/28/20 06/28/20 17:25 17:25 17:25 WBC 8.9 RBC 4.33 Hgb 10.9 L Hct 33.0 L MCV 76.3 L MCH 25.3 L MCHC 33.1 RDW 14.6 H Plt Count 396 MPV 7.8 Absolute Neuts (auto) 5.70 Absolute Lymphs (auto) 1.90 Absolute Monos (auto) 0.50 Absolute Eos (auto) 0.70 H Absolute Basos (auto) 0.10 Neutrophils % 64.0 Lymphocytes % 21.5 Monocytes % 5.6 Eosinophils % 7.8 H Basophils % 1.1 Sodium 136 Potassium 4.0 Chloride 100 L Carbon Dioxide 26 Anion Gap 14.0 BUN 12 Creatinine 0.67 BUN/Creatinine Ratio 17.9 Random Glucose 120 H D Serum Osmolality 272.9 L Lactic Acid 1.4 Calcium 8.8 Total Bilirubin Direct Bilirubin Indirect Bilirubin AST ALT Alkaline Phosphatase Serum Total Protein Albumin Lipase Serum HCG, Qual Urine Color Urine Appearance Urine pH Ur Specific Caret Urine Protein Urine Glucose (UA) Urine Ketones Urine Blood Urine Nitrite Urine Bilirubin Urine Urobilinogen Ur Leukocyte Esterase Urine RBC Urine WBC Ur Epithelial Cells Urine Bacteria 06/28/20 06/28/20 06/28/20 17:25 17:28 17:29 WBC RBC Hgb Hct MCV MCH MCHC RDW Plt Count MPV Absolute Neuts (auto) Absolute Lymphs (auto) Absolute Monos (auto) Absolute Eos (auto) Absolute Basos (auto) Neutrophils % Lymphocytes % Monocytes % Eosinophils % Basophils % Sodium Potassium Chloride Carbon Dioxide Anion Gap BUN Creatinine BUN/Creatinine Ratio Random Glucose Serum Osmolality Lactic Acid Calcium Total Bilirubin 0.4 Direct Bilirubin < 0.1 Indirect Bilirubin 0.3 AST 22 ALT 30 Alkaline Phosphatase 152 H Serum Total Protein 7.4 Albumin 3.9 Lipase 180 H D Serum HCG, Qual Negative Urine Color Yellow Urine Appearance Clear Urine pH 6.5 Ur Specific Caret 1.020 Urine Protein Negative Urine Glucose (UA) 250 H Urine Ketones Negative Urine Blood Small H Urine Nitrite Negative Urine Bilirubin Negative Urine Urobilinogen 0.2 Ur Leukocyte Esterase Negative Urine RBC 3-5 H Urine WBC 0-1 Ur Epithelial Cells 5-10 Urine Bacteria Rare ADDENDUM #1 The findings were discussed with the referring physician at 6:45 PM central standard time. There has been no interval placement of a G-tube therefore the small amount of free air is worrisome for a perforated viscus. Electronically signed by: Varun Hemphill MD 06/28/2020 6:48 PM [facility] ORIGINAL REPORT EXAM DESCRIPTION: Abdomen/Pelvis w/Contrast CLINICAL HISTORY: abdominal pain COMPARISON: June 27, 2020 TECHNIQUE: Contiguous axial images of the abdomen and pelvis were obtained after the administration of intravenous contrast followed by reconstruction images.This exam was performed according to our departmental dose-optimization program, which includes automated exposure control, adjustment of the mA and/or kV according to patient size and/or use of iterative reconstruction technique. FINDINGS: Patient is status post cholecystectomy. There is a G tube within the proximal small bowel bowel. Small free air bubbles within the upper abdomen/jose hepatis level could be related to recent tube placement. There is mucosal thickening of small bowel loops at the right lower abdomen worrisome for an infectious or inflammatory process. There is a small amount of free fluid in the abdomen and pelvis. Calcifications within the pelvis compatible with phleboliths There is atherosclerosis. There is a 3 cm cyst at the right adnexa compatible with an ovarian cyst. The uterus is absent. Surgical clips at the pericecal level compatible with prior appendectomy. The liver, spleen, pancreas and kidneys are within normal limits. There is no hydronephrosis or renal stones. Adrenal glands are within normal limits. Aorta is of normal caliber and tapering. IMPRESSION: Mucosal thickening of small bowel loops at the right mid abdomen could be secondary to an infectious versus inflammatory process. New finding when compared with the prior exam. Small amount of free fluid in the abdomen and pelvis. New finding compared with the prior exam. Small amount of free air at the level of the upper mid abdomen could be related to recent tube placement/replacement. Other etiologies are not excluded. Recommend clinical correlation and follow-up. New finding compared with the prior exam. Electronically signed by: Varun Hemphill MD 06/28/2020 6:38 PM [employer]E[facility]INE[facility] END ADDENDUM EXAM DESCRIPTION: Abdomen/Pelvis w/Contrast CLINICAL HISTORY: abdominal pain COMPARISON: June 27, 2020 TECHNIQUE: Contiguous axial images of the abdomen and pelvis were obtained after the administration of intravenous contrast followed by reconstruction images.This exam was performed according to our departmental dose-optimization program, which includes automated exposure control, adjustment of the mA and/or kV according to patient size and/or use of iterative reconstruction technique. FINDINGS: Patient is status post cholecystectomy. There is a G tube within the proximal small bowel bowel. Small free air bubbles within the upper abdomen/jose hepatis level could be related to recent tube placement. There is mucosal thickening of small bowel loops at the right lower abdomen worrisome for an infectious or inflammatory process. There is a small amount of free fluid in the abdomen and pelvis. Calcifications within the pelvis compatible with phleboliths There is atherosclerosis. There is a 3 cm cyst at the right adnexa compatible with an ovarian cyst. The uterus is absent. Surgical clips at the pericecal level compatible with prior appendectomy. The liver, spleen, pancreas and kidneys are within normal limits. There is no hydronephrosis or renal stones. Adrenal glands are within normal limits. Aorta is of normal caliber and tapering. IMPRESSION: Mucosal thickening of small bowel loops at the right mid abdomen could be secondary to an infectious versus inflammatory process. New finding when compared with the prior exam. Small amount of free fluid in the abdomen and pelvis. New finding compared with the prior exam. Small amount of free air at the level of the upper mid abdomen could be related to recent tube placement/replacement. Other etiologies are not excluded. Recommend clinical correlation and follow-up. New finding compared with the prior exam. Electronically signed by: Varun Hemphill MD 06/28/2020 6:38 PM EKG performed 28 June 2020 at 1730 hrs.: Normal sinus rhythm at 70 bpm, normal axis deviation, septal infarct, age indeterminate, abnormal EKG. No comparison EKG available at this time. Vital Signs 06/28/20 17:00 Temperature 97.6 F Pulse Rate [ 78 pulse ox] Respiratory 18 Rate Blood Pressure 124/81 [Left Arm] O2 Sat by Pulse 99 Oximetry Departure - Departure Clinical Impression: Free intraperitoneal air Pancreatitis Qualifiers: Chronicity: acute Pancreatitis type: unspecified pancreatitis type Acute pancreatitis complication: unspecified Qualified Code(s): K85.90 - Acute pancreatitis without necrosis or infection, unspecified Abdominal pain Qualifiers: Abdominal location: generalized Qualified Code(s): R10.84 - Generalized abdominal pain Time of Disposition: 20:52 Disposition: Transfer to Hospital Condition: Fair Departure Forms: ED Discharge - Pt. Copy, Patient Portal Self Enrollment Instructions: DI for Chest Pain Diet: other - npo Activity: as per physical therapy Referrals: JUSTINO MARQUEZ IV, PHYSIC[facility] [employer] [Primary Care Provider] - 1-2 Weeks Home Medications: Ambulatory Orders Mometasone Furoate [Elocon] 0.1 % TOP DAILY PRN 11/07/17 Epinephrine [Epipen 2-Mikael] 0.3 mg IJ ONCE PRN #1 pack 03/26/18 Buspirone HCl 30 mg PO BID 10/23/18 Diazepam 5 mg PO TID 02/21/19 Gabapentin 300 mg PO TID 11/11/19 Hydrocodone-Acetaminophen [[place] 7.5-325 mg] 1 tab PO TID 11/11/19 Vilazodone HCl [Viibryd] 40 mg PO DAILY 11/11/19 tiZANidine [Zanaflex] 12 mg PO Q8H PRN 11/11/19 Ondansetron Odt [Zofran Odt] 8 mg PO Q8H PRN #12 tab 12/25/19 Albuterol Sulfate [Proair Hfa] 2 puff INH Q6H PRN 01/01/20 Azelastine HCl [Azelastine Hydrochloride] 0.1 % INH PRN PRN 01/01/20 Esomeprazole Magnesium [Nexium] 40 mg PO PRN 01/01/20 Glucagon [Baqsimi One Pack] 3 mg NA PRN 01/01/20 Hydroxyzine HCl [Hydroxyzine Hydrochloride] 50 mg PO QID 01/01/20 Insulin Glargine [Lantus Solostar] 10 unit SC BEDTIME 01/01/20 Insulin Glargine [Lantus Solostar] 25 unit SC DAILY 01/01/20 Mometasone Furoate 0.1 % TOP PRN 01/01/20 Naloxone HCl [Narcan] 4 mg NA PRN 01/01/20 Promethazine Tab [Phenergan Tablet] 25 mg PO .Q4H PRN 01/01/20 Salmeterol Xinafoate [Serevent Diskus] 50 mcg IN PRN 01/01/20 Triamcinolone 0.5% Cream [Kenalog 0.5% Cream] 1 applic TOP PRN 01/01/20 Promethazine Supp [Phenergan Suppository] 12.5 mg VT Q6H PRN #15 sup 02/20/20 Amoxicillin & Pot Clavulanate [Augmentin Tab] 875 mg PO BID 7 Days #14 tab 06/06/20 Transfer to Outside Facility - Transfer Information Decision to Transfer Date: 06/28/20 Decision to Transfer Time: 19:00 Reason for Transfer: required specialist not available Accepting Facility: [facility]
[2020-06-28] MEDS ORDERED: KETOROLAC TROMETHAMINE INJ 30 MG/ML VIAL IV ONE (17:33)
[2020-06-28] MEDS ORDERED: HYDROmorphone HCL INJ 2 MG/ML VIAL IV ONE ×3 (17:59→21:57)
--- NOTE | 2020-06-28 18:40 | CT ---
EXAM DESCRIPTION: Abdomen/Pelvis w/Contrast CLINICAL HISTORY: abdominal pain COMPARISON: June 27, 2020 TECHNIQUE: Contiguous axial images of the abdomen and pelvis were obtained after the administration of intravenous contrast followed by reconstruction images.This exam was performed according to our departmental dose-optimization program, which includes automated exposure control, adjustment of the mA and/or kV according to patient size and/or use of iterative reconstruction technique. FINDINGS: Patient is status post cholecystectomy. There is a G tube within the proximal small bowel bowel. Small free air bubbles within the upper abdomen/jose hepatis level could be related to recent tube placement. There is mucosal thickening of small bowel loops at the right lower abdomen worrisome for an infectious or inflammatory process. There is a small amount of free fluid in the abdomen and pelvis. Calcifications within the pelvis compatible with phleboliths There is atherosclerosis. There is a 3 cm cyst at the right adnexa compatible with an ovarian cyst. The uterus is absent. Surgical clips at the pericecal level compatible with prior appendectomy. The liver, spleen, pancreas and kidneys are within normal limits. There is no hydronephrosis or renal stones. Adrenal glands are within normal limits. Aorta is of normal caliber and tapering. IMPRESSION: Mucosal thickening of small bowel loops at the right mid abdomen could be secondary to an infectious versus inflammatory process. New finding when compared with the prior exam. Small amount of free fluid in the abdomen and pelvis. New finding compared with the prior exam. Small amount of free air at the level of the upper mid abdomen could be related to recent tube placement/replacement. Other etiologies are not excluded. Recommend clinical correlation and follow-up. New finding compared with the prior exam. Electronically signed by: Varun Hemphill MD 06/28/2020 6:38 PM DISTRICT WIRE CHIEF
[2020-06-28] MEDS ORDERED: diphenhydrAMINE HCL 50 MG/ML VIAL IV ONE (20:11)
[2020-06-28] MEDS ORDERED: DEXTROSE 50% 25 GM/50 ML SYG IV ONE (21:48)
[2020-06-28] MEDS ORDERED: HYDROmorphone HCL INJ 2 MG/ML VIAL ONE (21:59)
[2020-06-28 22:08] VITALS: BP 88/49; TEMP 97.6; O2SAT 96
== END 2020-06-28 22:08 | disposition short-term general hospital (02) ==
LOC: ER 16:56
DX: K85.90 Acute pancreatitis without necrosis or infection, unspecified (principal); R14.0 Abdominal distension (gaseous); E11.9 Type 2 diabetes mellitus without complications; F32.9 Major depressive disorder, single episode, unspecified; Z93.1 Gastrostomy status; Z87.891 Personal history of nicotine dependence; Z79.899 Other long term (current) drug therapy; Z79.4 Long term (current) use of insulin; Z91.013 Allergy to seafood; Z88.8 Allergy status to other drugs, medicaments and biological substances
CPT/HCPCS: 36415; 74177; 80048; 80076; 81001; 82948; 83605; 83690; 84703; 85025; 93005; A4216; J1170; J1200; J1885; J2060; J7030

== ENCOUNTER 2020-07-14 14:44 | Emergency (ER) | payer MEDICARE, MEDICAID ==
[2020-07-14] MEDS ORDERED: SODIUM CHLORIDE 0.9% 1000ML 1,000 ML IVS ONE (15:03)
[2020-07-14] MEDS ORDERED: ACETAMINOPHEN IV 1000MG 1,000 MG in PREMIX BOTTLE 1 BOTTLE IVPB ONE (15:04)
[2020-07-14] MEDS ORDERED: PROMETHAZINE HCL INJ 12.5 MG in SODIUM CHLORIDE 0.9% 50ML 50 ML IVPB ONE (15:04)
--- NOTE | 2020-07-14 15:12 | ED.PDOC ---
History of Present Illness - General Chief Complaint: Post Op Problems Time Seen by Provider: 07/14/20 14:46 Information Source: patient, RN notes reviewed, Vital Signs reviewed, old records Exam Limitations: no limitations - History of Present Illness Initial Comments: 44 yo F well known to the ER comes in with postoperative abdominal pain. Was seen her 16 days ago, was transferred to surgeon. Per patient she had a perforated ulcer, and underwent surgery that night. States the wound then got infected and some of the stables were removed. She is currently on augmentin. She also states she had a pelvic abscess which was not drained. pain is worsening so sent here for evaluation by home health nurse per patient. Review of Systems - Review of Systems Constitutional: States: fever - subjective EENTM: Denies: throat pain Respiratory: Denies: cough, short of breath Cardiology: Denies: chest pain, palpitations Gastrointestinal/Abdominal: States: abdominal pain, nausea. Denies: diarrhea, vomiting Genitourinary: Denies: discharge Skin: Denies: rash Neurological: Denies: numbness, seizure Endocrine: Denies: unexplained weight gain Hematologic/Lymphatic: Denies: easy bleeding, easy bruising Past Medical History (General) - Patient Medical History Hx Seizures: No Hx Stroke: No Hx Dementia: No Hx Asthma: No Hx of COPD: No Hx Cardiac Disorders: No Hx Congestive Heart Failure: No Hx Pacemaker: No Hx Hypertension: No Hx Thyroid Disease: No Hx Diabetes: Yes Hx Gastroesophageal Reflux: No Hx Renal Disease: No Hx Cancer: No Hx of HIV: No Hx Hepatitis C: No Hx MRSA: No MRSA Source:: Blood Surgical History: other - see hpi - Vaccination History Hx Tetanus, Diphtheria Vaccination: Yes Hx Influenza Vaccination: Yes Hx Pneumococcal Vaccination: Yes - Social History Hx Tobacco Use: Yes - Half pack a day Hx Chewing Tobacco Use: No Hx Alcohol Use: No Hx Substance Use: Yes Hx Substance Use Treatment: No Hx Depression: Yes Hx Physical Abuse: No Hx Emotional Abuse: No Hx Suspected Abuse: No - Female History Hx Last Menstrual Period: 11/05/11 Patient : No Family Medical History - Family History Mother Family History: No Known Name: April Age (years): 70 Living Status: Still Living Hx Family Asthma: No Hx Family Congestive Heart Failure: No Hx Family Hypertension: No Hx Family Stroke: No Hx Cardiac Disease: No Hx Family Diabetes: No Hx Family Cancer: Yes - skin cancer Hx Family;Other: thyroid problems and seizures Father Family History: No Known Name: Marlon Age (years): 68 Living Status: Still Living Hx Family Asthma: - Sister Hx Family Congestive Heart Failure: No Hx Family Hypertension: Yes Hx Family Stroke: No Hx Cardiac Disease: Yes Hx Family Diabetes: No Age of Onset (years of age): 32 Hx Family Cancer: - Grandmother Lymphoma Physical Exam - Physical Exam General Appearance: Alert, Comfortable, No apparent distress, Well Developed, We ll Groomed, Well Hydrated, Well Nourished Eyes, Ears, Nose, Throat Exam: PERRL/EOMI, normal ENT inspection Neck: non-tender, full range of motion, supple, normal inspection Respiratory: lungs clear, normal breath sounds, no respiratory distress, no accessory muscle use Cardiovascular/Chest: normal peripheral pulses, regular rate, rhythm, no edema, no gallop, no murmur Peripheral Pulses: 2+ Gastrointestinal/Abdominal: normal bowel sounds, soft, no pulsatile mass, other - midline surgical scar seen, bottom 1/4 of wound with azul removed, open, some drainage, granulation tissue noted, mild erythema. Rectal Exam: deferred Back Exam: normal inspection, no vertebral tenderness Extremity: non-tender, normal inspection, no calf tenderness Neurologic: no motor/sensory deficits, alert, normal mood/affect, oriented x 3 Skin Exam: normal color, warm/dry Progress - Progress Progress: Patient given IV tylenol, phenergan and benadryl (bendaryl per patient request). Also NS bolus. partial ddx: post operative infection, colitis, gastritis, uti due to patient having no fever, no wbc, I do no suspect significant infection. The data reviewed when caring for this patient included: nurse notes, prior records, etc. The history and assessments from nurses notes were reviewed and considered, and the patient's home medication list was also reviewed and considered. My assessment and the results of testing completed here in the ED were discussed with the patient. All questions were answered, and they express understanding of my assessment and the plan. They have been instructed to return if their symptoms worsen, and have been asked to follow up with her surgeon to recheck today's presenting complaint. return precautions given. I have reviewed medication, benefits, alternatives and side effects. Patient decided to proceed with medication. Rebecca Garcia DO #[id number] 07/14/20 16:57 - Results/Orders Results/Orders: Ct abd/pelvis: Interval postsurgical changes from removal of jejunostomy tube. Midline incision above the umbilicus is new from previous. Mild circumferential wall thickening of the right to transverse colon could represent nonspecific infectious or inflammatory colitis. No free intraperitoneal air or abnormal drainable fluid collections are seen in the abdomen or pelvis. - Consult/PCP Time Called: 16:15 Consult/PCP: Dr. Alejandra, patient surgeon Consult Reason/Comments: recommends cipro and fagyl, follow up in 1-2 weeks Departure - Departure Clinical Impression: Colitis Uncontrolled diabetes mellitus Qualifiers: Diabetes mellitus type: type 1 Glycemic state: with hyperglycemia Qualified Code(s): E10.65 - Type 1 diabetes mellitus with hyperglycemia Time of Disposition: 16:39 Disposition: Discharge to Home or Self Care Condition: Fair Departure Forms: ED Discharge - Pt. Copy, Patient Portal Self Enrollment Instructions: Colitis Activity: increase activity as tolerated Referrals: JUSTINO MARQUEZ IV, GAG WRITER [Primary Care Provider] - 1-2 Weeks Prescriptions: Ciprofloxacin [Cipro] 500 mg PO BID 10 Days #20 tab metroNIDAZOLE [Flagyl] 500 mg PO Q8H 10 Days #30 tab Lactobacillus [Lactobacillus Probiotic] 1 tab PO BID #30 tab Home Medications: Ambulatory Orders Mometasone Furoate [Elocon] 0.1 % TOP DAILY PRN 11/07/17 Epinephrine [Epipen 2-Mikael] 0.3 mg IJ ONCE PRN #1 pack 03/26/18 Buspirone HCl 30 mg PO BID 10/23/18 Diazepam 5 mg PO TID 02/21/19 Gabapentin 300 mg PO TID 11/11/19 Hydrocodone-Acetaminophen [[place] 7.5-325 mg] 1 tab PO TID 11/11/19 Vilazodone HCl [Viibryd] 40 mg PO DAILY 11/11/19 tiZANidine [Zanaflex] 12 mg PO Q8H PRN 11/11/19 Ondansetron Odt [Zofran Odt] 8 mg PO Q8H PRN #12 tab 12/25/19 Albuterol Sulfate [Proair Hfa] 2 puff INH Q6H PRN 01/01/20 Azelastine HCl [Azelastine Hydrochloride] 0.1 % INH PRN PRN 01/01/20 Esomeprazole Magnesium [Nexium] 40 mg PO PRN 01/01/20 Glucagon [Baqsimi One Pack] 3 mg NA PRN 01/01/20 Hydroxyzine HCl [Hydroxyzine Hydrochloride] 50 mg PO QID 01/01/20 Insulin Glargine [Lantus Solostar] 10 unit SC BEDTIME 01/01/20 Insulin Glargine [Lantus Solostar] 25 unit SC DAILY 01/01/20 Mometasone Furoate 0.1 % TOP PRN 01/01/20 Naloxone HCl [Narcan] 4 mg NA PRN 01/01/20 Promethazine Tab [Phenergan Tablet] 25 mg PO .Q4H PRN 01/01/20 Salmeterol Xinafoate [Serevent Diskus] 50 mcg IN PRN 01/01/20 Triamcinolone 0.5% Cream [Kenalog 0.5% Cream] 1 applic TOP PRN 01/01/20 Promethazine Supp [Phenergan Suppository] 12.5 mg [place] Q6H PRN #15 sup 02/20/20 Amoxicillin & Pot Clavulanate [Augmentin Tab] 875 mg PO BID 7 Days #14 tab 06/06/20 Ciprofloxacin [Cipro] 500 mg PO BID 10 Days #20 tab 07/14/20 Lactobacillus [Lactobacillus Probiotic] 1 tab PO BID #30 tab 07/14/20 metroNIDAZOLE [Flagyl] 500 mg PO Q8H 10 Days #30 tab 07/14/20 Additional Instructions: keep appoinment with Dr. alejandra
[2020-07-14] MEDS ORDERED: diphenhydrAMINE HCL 50 MG/ML VIAL IV ONE (16:05)
--- NOTE | 2020-07-14 16:06 | CT ---
EXAM DESCRIPTION: Abdomen/Pelvis w/Contrast CLINICAL HISTORY: post operative pain COMPARISON: June 28, 2020 TECHNIQUE: Postcontrast CT images of the abdomen and pelvis are obtained using standard imaging protocol. This exam was performed according to our departmental dose-optimization program, which includes automated exposure control, adjustment of the mA and/or kV according to patient size and/or use of iterative reconstruction technique . FINDINGS: Visualized lung bases are unremarkable. The liver, spleen, pancreas, and adrenal glands are unremarkable. Surgical clips from cholecystectomy. Moderate atherosclerotic disease. Normal cortical enhancement of the kidneys. No hydronephrosis. Urinary bladder unremarkable. Uterus is presumed surgically absent. The ovaries are not identified. Surgical suture line at the base of the cecum suggesting previous appendectomy. Interval removal of jejunostomy tube. Postsurgical changes are seen with anterior midline incision that is partly open skin without dehiscence of the abdominal wall on CT imaging. Mild circumferential wall thickening and adjacent fat stranding of the colon from cecum to mid transverse colon. The remainder of the colon is unremarkable. No small bowel obstruction or bowel wall thickening. Mildly prominent lymph nodes in the inguinal regions bilaterally. No pathologically enlarged abdominal or retroperitoneal lymphadenopathy. Osseous structures show no aggressive bony lesions. IMPRESSION: Interval postsurgical changes from removal of jejunostomy tube. Midline incision above the umbilicus is new from previous. Mild circumferential wall thickening of the right to transverse colon could represent nonspecific infectious or inflammatory colitis. No free intraperitoneal air or abnormal drainable fluid collections are seen in the abdomen or pelvis. Electronically signed by: Jerry Delatorre MD 07/14/2020 4:05 PM MOLECULAR GENETIC PATHOLOGIST [facility]
[2020-07-14] MEDS ORDERED: PANTOPRAZOLE SODIUM TAB 40 MG PO ONE (16:29)
[2020-07-14] MEDS ORDERED: MORPHINE SULFATE INJ 10 MG/ML VIAL IV ONE (16:38)
[2020-07-14] MEDS ORDERED: HEPARIN SODIUM 100 U/ML 5 ML SYG IV ONE (16:56)
[2020-07-14 17:46] VITALS: BP 104/62; TEMP 98.2; O2SAT 96
== END 2020-07-14 17:05 | disposition home or self-care (01) ==
LOC: ER 14:44
DX: K52.9 Noninfective gastroenteritis and colitis, unspecified (principal); E10.65 Type 1 diabetes mellitus with hyperglycemia; F32.9 Major depressive disorder, single episode, unspecified; Z98.890 Other specified postprocedural states; Z87.19 Personal history of other diseases of the digestive system; Z87.891 Personal history of nicotine dependence; Z79.899 Other long term (current) drug therapy; Z79.4 Long term (current) use of insulin
CPT/HCPCS: 36415; 74177; 80053; 80307; 81001; 83690; 85025; 87040; A4216; J1200; J1642; J2270; J2550; J7030

== ENCOUNTER 2020-07-15 10:21 | Emergency (ER) | payer MEDICARE, OTHER ==
[2020-07-15] MEDS ORDERED: SODIUM CHLORIDE 0.9% (FLUSH) 10 ML SYG IV PRN (10:37)
[2020-07-15] MEDS ORDERED: SODIUM CHLORIDE 0.9% 1000ML 1,000 ML IVS ONE (10:37)
[2020-07-15] MEDS ORDERED: ONDANSETRON INJ 4 MG/2 ML VIAL IV ONE (10:37)
[2020-07-15] MEDS ORDERED: KETOROLAC TROMETHAMINE INJ 30 MG/ML VIAL IV ONE (11:33)
--- NOTE | 2020-07-15 13:02 | ED.PDOC ---
History of Present Illness - General Chief Complaint: Abdominal Pain Stated Complaint: n/v/d, Abd pain, post op complications Time Seen by Provider: 07/15/20 10:36 Information Source: patient, RN notes reviewed, Vital Signs reviewed, RN/MD - Radiology. Pt with 5 CT ABD/Pelvis in last 4 months + 7 Xrays of abdomen., old records - Previous ED visits Exam Limitations: no limitations - History of Present Illness Initial Comments: Patient is a 44-year-old white female who appears significantly older than her stated age who presents with complaints of abdominal pain. Patient has had a recent gastric perforation status post jejunostomy tube placement and this was removed approximately 2 weeks ago. Patient was seen here yesterday with a full work-up including CT and was found not to have any acute disease requiring admission or surgical intervention. Patient's pain is stabbing in nature. She states it feels like something ripped out. The pain is severe. The pain is nonradiating. The pain is constant. Nothing makes it better or worse. Abdominal Pain Onset Location: generalized abdomen Pain Radiation: no radiation Quality: severe, sharpness, steady, stabbing Timing/Duration: 7-24 hours Improving Factors: nothing Worsening Factors: movement Associated Symptoms: diarrhea, nausea/vomiting Review of Systems - Review of Systems Constitutional: States: no symptoms reported, see HPI. Denies: chills, fever, malaise, weakness EENTM: States: no symptoms reported. Denies: eye pain, blurred vision, double vision Respiratory: States: no symptoms reported. Denies: cough, short of breath, stridor, wheezing Cardiology: States: no symptoms reported. Denies: chest pain, palpitations, syncope Gastrointestinal/Abdominal: States: see HPI, abdominal pain, nausea, vomiting Genitourinary: States: no symptoms reported. Denies: dysuria, frequency Musculoskeletal: States: no symptoms reported. Denies: back pain, joint pain, joint swelling, neck pain Skin: States: no symptoms reported. Denies: change in color, rash Neurological: States: no symptoms reported. Denies: headache, tingling, tremors, weakness Endocrine: States: no symptoms reported. Denies: increased hunger, increased thirst, increased urine Hematologic/Lymphatic: States: no symptoms reported All other Systems: Reviewed and Negative, No Change from Baseline Past Medical History (General) - Patient Medical History Hx Seizures: No Hx Stroke: No Hx Dementia: No Hx Asthma: Yes Hx of COPD: No Hx Cardiac Disorders: Yes Hx Congestive Heart Failure: No Hx Pacemaker: No Hx Hypertension: No Hx Thyroid Disease: No Hx Diabetes: Yes Hx Gastroesophageal Reflux: Yes Hx Renal Disease: No Hx Cancer: No Hx of HIV: No Hx Hepatitis C: No Hx MRSA: No MRSA Source:: Blood Surgical History: other - Vaccination History Hx Tetanus, Diphtheria Vaccination: Yes Hx Influenza Vaccination: Yes Hx Pneumococcal Vaccination: Yes - Social History Hx Tobacco Use: Yes - Half pack a day Hx Chewing Tobacco Use: No Hx Alcohol Use: No Hx Substance Use: Yes Hx Substance Use Treatment: No Hx Depression: Yes Hx Physical Abuse: No Hx Emotional Abuse: No Hx Suspected Abuse: No - Female History Patient is a Female of Child Bearing Age (10 -59 yrs old): Yes Hx Last Menstrual Period: 11/05/11 Patient : No Family Medical History - Family History Mother Family History: No Known Name: April Age (years): 70 Living Status: Still Living Hx Family Asthma: No Hx Family Congestive Heart Failure: No Hx Family Hypertension: No Hx Family Stroke: No Hx Cardiac Disease: No Hx Family Diabetes: No Hx Family Cancer: Yes - skin cancer Hx Family;Other: thyroid problems and seizures Father Family History: No Known Name: Marlon Age (years): 68 Living Status: Still Living Hx Family Asthma: - Sister Hx Family Congestive Heart Failure: No Hx Family Hypertension: Yes Hx Family Stroke: No Hx Cardiac Disease: Yes Hx Family Diabetes: No Age of Onset (years of age): 32 Hx Family Cancer: - Grandmother Lymphoma Physical Exam - Physical Exam General Appearance: Agitated, Alert, Anxious, Emaciated, Frail, Obvious distress Eyes, Ears, Nose, Throat Exam: PERRL/EOMI, normal ENT inspection, pharynx normal - except dry MM. Neck: non-tender, full range of motion Respiratory: chest non-tender, lungs clear, normal breath sounds, no respiratory distress, no accessory muscle use Cardiovascular/Chest: normal peripheral pulses, regular rate, rhythm, no edema, no gallop, no JVD, no murmur Peripheral Pulses: No deficit Gastrointestinal/Abdominal: normal bowel sounds, soft, tenderness - generalized. Vountary guarding. Purulent mucoid d/c from abdominal wound. Wound bed is intact. 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 Back Exam: normal inspection, no CVA tenderness, no vertebral tenderness Extremity: normal range of motion, non-tender, normal inspection Neurologic: copyright clerk II-XII nml as tested, no motor/sensory deficits, alert, normal mood/affect, oriented x 3 Skin Exam: normal color, warm/dry Lymphatic: no adenopathy Special Observations: C/O out of proportion, Tolerates fluids Progress - Progress Progress: Differential diagnosis: Bowel obstruction, [place] infection, superficial wound infection, malingering among others. 07/15/20 13:09 Patient's labs are unchanged from yesterday. She is resting comfortably and tolerates p.o. The wound bed is intact and just has some mucopurulent discharge. Will have nursing repack it with wet-to-dry and instruct patient on how to perform this function so that she can do this daily at home. Patient without a white count. Her CT scan yesterday was relatively unremarkable and I am not inclined to repeat it today as patient is already had 5 CT scans in last 4 months +7 abdominal series x-rays. I discussed the plan of care with the patient and she voiced understanding and agreement with discharge home. She is to follow-up with her surgeon in the near future. Hao Zambrano M.D. #[id number] - Results/Orders Results/Orders: 07/15/20 10:37 Sodium Chloride 0.9% (Flush) [Saline Flush Syringe] 10 ml IV PRN PRN 07/15/20 10:45 EKG STAT Laboratory Results - last 24 hr 07/15/20 07/15/20 07/15/20 10:57 10:57 12:30 WBC 6.1 RBC 4.48 Hgb 10.9 L Hct 33.3 L MCV 74.2 L MCH 24.2 L MCHC 32.6 L RDW 14.7 H Plt Count 728 H MPV 7.1 L Absolute Neuts (auto) 4.30 Absolute Lymphs (auto) 1.20 Absolute Monos (auto) 0.40 Absolute Eos (auto) 0.10 Absolute Basos (auto) 0.10 Neutrophils % 70.4 Lymphocytes % 20.2 Monocytes % 5.9 Eosinophils % 2.2 Basophils % 1.3 Sodium 135 Potassium 4.2 Chloride 101 Carbon Dioxide 21 Anion Gap 17.2 BUN 8 Creatinine 0.56 L BUN/Creatinine Ratio 14.3 Random Glucose 268 H Serum Osmolality 277.8 Calcium 8.6 Total Bilirubin 0.5 Direct Bilirubin < 0.1 Indirect Bilirubin 0.4 AST 14 ALT 17 Alkaline Phosphatase 137 H Serum Total Protein 7.9 Albumin 3.4 Lipase 19 L D Urine Color Yellow Urine Appearance Clear Urine pH 5.5 Ur Specific [place] 1.020 Urine Protein Negative Urine Glucose (UA) 500 H Urine Ketones >=160 Urine Blood Trace-intact H Urine Nitrite Negative Urine Bilirubin Small H Urine Urobilinogen 0.2 Ur Leukocyte Esterase Negative Urine RBC 0-1 Urine WBC 0 Ur Epithelial Cells 20-30 Amorphous Sediment 1+ Urine Bacteria 0 Vital Signs 07/15/20 10:25 Temperature 98.8 F Pulse Rate [ 106 H Pulse ox] Respiratory 20 Rate Blood Pressure 122/78 [L arm] O2 Sat by Pulse 98 Oximetry Departure - Departure Clinical Impression: Wound infection after surgery, Wound dehiscence Abdominal pain Qualifiers: Abdominal location: generalized Qualified Code(s): R10.84 - Generalized abdominal pain Time of Disposition: 13:11 Disposition: Discharge to Home or Self Care Condition: Fair Departure Forms: ED Discharge - Pt. Copy, Patient Portal Self Enrollment Instructions: DI for Abdominal Pain-Adult, Acute Abdomen (Belly Pain), Adult (DC) Diet: full liquid diet Activity: increase activity as tolerated Referrals: JUSTINO MARQUEZ IV, MANAGER SOLAR [Primary Care Provider] - 1-5 Days Home Medications: Ambulatory Orders Mometasone Furoate [Elocon] 0.1 % TOP DAILY PRN 11/07/17 Epinephrine [Epipen 2-Mikael] 0.3 mg IJ ONCE PRN #1 pack 03/26/18 Buspirone HCl 30 mg PO BID 10/23/18 Diazepam 5 mg PO TID 02/21/19 Gabapentin 300 mg PO TID 11/11/19 Hydrocodone-Acetaminophen [[place] 7.5-325 mg] 1 tab PO TID 11/11/19 Vilazodone HCl [Viibryd] 40 mg PO DAILY 11/11/19 tiZANidine [Zanaflex] 12 mg PO Q8H PRN 11/11/19 Ondansetron Odt [Zofran Odt] 8 mg PO Q8H PRN #12 tab 12/25/19 Albuterol Sulfate [Proair Hfa] 2 puff INH Q6H PRN 01/01/20 Azelastine HCl [Azelastine Hydrochloride] 0.1 % INH PRN PRN 01/01/20 Esomeprazole Magnesium [Nexium] 40 mg PO PRN 01/01/20 Glucagon [Baqsimi One Pack] 3 mg NA PRN 01/01/20 Hydroxyzine HCl [Hydroxyzine Hydrochloride] 50 mg PO QID 01/01/20 Insulin Glargine [Lantus Solostar] 10 unit SC BEDTIME 01/01/20 Insulin Glargine [Lantus Solostar] 25 unit SC DAILY 01/01/20 Mometasone Furoate 0.1 % TOP PRN 01/01/20 Naloxone HCl [Narcan] 4 mg NA PRN 01/01/20 Promethazine Tab [Phenergan Tablet] 25 mg PO .Q4H PRN 01/01/20 Salmeterol Xinafoate [Serevent Diskus] 50 mcg IN PRN 01/01/20 Triamcinolone 0.5% Cream [Kenalog 0.5% Cream] 1 applic TOP PRN 01/01/20 Promethazine Supp [Phenergan Suppository] 12.5 mg [place] Q6H PRN #15 sup 02/20/20 Amoxicillin & Pot Clavulanate [Augmentin Tab] 875 mg PO BID 7 Days #14 tab 06/06/20 Ciprofloxacin [Cipro] 500 mg PO BID 10 Days #20 tab 07/14/20 Lactobacillus [Lactobacillus Probiotic] 1 tab PO BID #30 tab 07/14/20 metroNIDAZOLE [Flagyl] 500 mg PO Q8H 10 Days #30 tab 07/14/20
[2020-07-15 13:30] VITALS: O2SAT 99
[2020-07-15] MEDS ORDERED: HEPARIN SODIUM 100 U/ML 5 ML SYG IV ONE (13:42)
[2020-07-15 13:48] VITALS: BP 131/77; TEMP 98.6
== END 2020-07-15 13:47 | disposition home or self-care (01) ==
LOC: ER 10:21
DX: T81.31XA Disruption of external operation (surgical) wound, not elsewhere classified, initial encounter (principal); T81.41XA Infection following a procedure, superficial incisional surgical site, initial encounter; Y83.8 Other surgical procedures as the cause of abnormal reaction of the patient, or of later complication, without mention of misadventure at the time of the procedure; R10.84 Generalized abdominal pain; R11.2 Nausea with vomiting, unspecified; R19.7 Diarrhea, unspecified; F32.9 Major depressive disorder, single episode, unspecified; J45.909 Unspecified asthma, uncomplicated; I51.9 Heart disease, unspecified; E11.9 Type 2 diabetes mellitus without complications; K21.9 Gastro-esophageal reflux disease without esophagitis; Z93.4 Other artificial openings of gastrointestinal tract status; Z86.14 Personal history of Methicillin resistant Staphylococcus aureus infection; Z87.891 Personal history of nicotine dependence; Z79.899 Other long term (current) drug therapy
CPT/HCPCS: 36415; 80048; 80076; 81001; 83690; 85025; 93005; J1642; J1885; J2405; J7030

== ENCOUNTER 2020-07-16 11:23 | Emergency (ER) | payer MEDICARE, MEDICAID ==
[2020-07-16] MEDS ORDERED: PROMETHAZINE HCL INJ 25 MG in SODIUM CHLORIDE 0.9% 50ML 50 ML IVPB ONE (12:02)
[2020-07-16] MEDS ORDERED: SODIUM CHLORIDE 0.9% 1000ML 1,000 ML IVS ONE ×2 (12:04)
[2020-07-16] MEDS ORDERED: KETOROLAC TROMETHAMINE INJ 30 MG/ML VIAL IV ONE (12:31)
[2020-07-16] MEDS ORDERED: diphenhydrAMINE HCL 25 MG CAP PO ONE (12:44)
--- NOTE | 2020-07-16 13:00 | ED.PDOC ---
History of Present Illness - General Chief Complaint: GI Problem Stated Complaint: n/v,weight loss Time Seen by Provider: 07/16/20 11:37 Information Source: patient Exam Limitations: other - PATIENT'S HISTORY OF SUBSTANCE ABUSE MOST OFTEN LEADS TO INACCURATE HISTORY - History of Present Illness Initial Comments: PATIENT PRESENTS TODAY WITH HER FREQUENT COMPLAINT OF NAUSEA/ VOMITING AND ABD PAIN, PATIENT WITH LONG HISTORY OF OPIOID DEPENDENCE. Abdominal Pain Onset Location: generalized abdomen Pain Radiation: no radiation Quality: severe Timing/Duration: days Improving Factors: nothing Associated Symptoms: nausea/vomiting Review of Systems - Review of Systems Constitutional: States: no symptoms reported EENTM: States: no symptoms reported Respiratory: States: no symptoms reported Cardiology: States: no symptoms reported Gastrointestinal/Abdominal: States: see HPI Genitourinary: States: no symptoms reported Musculoskeletal: States: no symptoms reported Skin: States: no symptoms reported Neurological: States: no symptoms reported Endocrine: States: no symptoms reported Past Medical History (General) - Patient Medical History Hx Seizures: No Hx Stroke: No Hx Dementia: No Hx Asthma: Yes Hx of COPD: No Hx Cardiac Disorders: Yes Hx Congestive Heart Failure: No Hx Pacemaker: No Hx Hypertension: No Hx Thyroid Disease: No Hx Diabetes: Yes Hx Gastroesophageal Reflux: Yes Hx Renal Disease: No Hx Cancer: No Hx of HIV: No Hx Hepatitis C: No Hx MRSA: No MRSA Source:: Blood - Vaccination History Hx Tetanus, Diphtheria Vaccination: Yes Hx Influenza Vaccination: Yes Hx Pneumococcal Vaccination: Yes - Social History Hx Tobacco Use: Yes - Half pack a day Hx Chewing Tobacco Use: No Hx Alcohol Use: No Hx Substance Use: Yes Hx Substance Use Treatment: No Hx Depression: Yes Hx Physical Abuse: No Hx Emotional Abuse: No Hx Suspected Abuse: No - Female History Hx Last Menstrual Period: 11/05/11 Patient : No Family Medical History - Family History Mother Family History: No Known Name: April Age (years): 70 Living Status: Still Living Hx Family Asthma: No Hx Family Congestive Heart Failure: No Hx Family Hypertension: No Hx Family Stroke: No Hx Cardiac Disease: No Hx Family Diabetes: No Hx Family Cancer: Yes - skin cancer Hx Family;Other: thyroid problems and seizures Father Family History: No Known Name: Marlon Age (years): 68 Living Status: Still Living Hx Family Asthma: - Sister Hx Family Congestive Heart Failure: No Hx Family Hypertension: Yes Hx Family Stroke: No Hx Cardiac Disease: Yes Hx Family Diabetes: No Age of Onset (years of age): 32 Hx Family Cancer: - Grandmother Lymphoma Physical Exam - Physical Exam General Appearance: Alert, Anxious, Emaciated Eyes, Ears, Nose, Throat Exam: PERRL/EOMI, normal ENT inspection Neck: non-tender, full range of motion, supple Respiratory: chest non-tender, lungs clear, normal breath sounds, no respiratory distress Cardiovascular/Chest: normal peripheral pulses, regular rate, rhythm, no edema, no gallop Peripheral Pulses: No deficit Gastrointestinal/Abdominal: normal bowel sounds, soft, tenderness - DIFFUSE Back Exam: normal inspection, no CVA tenderness Extremity: normal range of motion, non-tender, normal inspection Neurologic: alert, normal mood/affect, oriented x 3 Skin Exam: normal color, warm/dry Lymphatic: no adenopathy Progress - Progress Progress: 07/16/20 13:18 PATIENT STATES SHE HAS BEEN UNABLE TO KEEP HER PAIN MEDICATION(VICODIN 10) AND ANXIETY MEDICATION DOWN (KLONOPIN). PATIENT CLAIMS DR WILEY GAVE HER AN RX FOR 120 VICODINE THAT SHE FILLED ON 06/28, HOWEVER [facility] DOES NOT SHOW THIS, IN FACT, IT APPEARS DR WILEY HAS NOT BEEN HER SOURCE FOR OPIOID PRESCRIPTIONS IN THE PAST, ONLY HER [facility] RX. HER ONLY RECENT RX FOR VICODIN COMES FROM DR MILADIS MCWILLIAMS IN [place] ON 06/03/20, AND THAT WAS FOR ONLY 28 PILLS. MY CONCERN IS THE POSIBILITY THAT SHE IS NO GETTING HER OPIOIDS OFF THE STREET AND HAS INCONSISTENT ACCESS. I AM CONCERNED THAT SHE COULD BE REPEATEDLY GOING THRU OPIOID WITHDRAWAL AND THIS IS THE SOURCE OF HER SYMPTOMS. IF SO, IT WOULD MEAN SHE IS BEING PROFOUNDLY DISHONEST WITH US, TO THE POINT OF REALLY NOT BEING TO ADDRESS HER UNDERLYING PATHOLOGY. WE MUST WORK WITH THIS REAL POSIBILITY. Departure - Departure Clinical Impression: Recurrent vomiting Time of Disposition: 13:00 Disposition: Discharge to Home or Self Care Condition: Good Departure Forms: ED Discharge - Pt. Copy, Patient Portal Self Enrollment Referrals: JUSTINO MARQUEZ IV, FISHERY BIOLOGIST [Primary Care Provider] - 1-2 Weeks Home Medications: Ambulatory Orders Mometasone Furoate [Elocon] 0.1 % TOP DAILY PRN 11/07/17 Epinephrine [Epipen 2-Mikael] 0.3 mg IJ ONCE PRN #1 pack 03/26/18 Buspirone HCl 30 mg PO BID 10/23/18 Diazepam 5 mg PO TID 02/21/19 Gabapentin 300 mg PO TID 11/11/19 Hydrocodone-Acetaminophen [[place] 7.5-325 mg] 1 tab PO TID 11/11/19 Vilazodone HCl [Viibryd] 40 mg PO DAILY 11/11/19 tiZANidine [Zanaflex] 12 mg PO Q8H PRN 11/11/19 Ondansetron Odt [Zofran Odt] 8 mg PO Q8H PRN #12 tab 12/25/19 Albuterol Sulfate [Proair Hfa] 2 puff INH Q6H PRN 01/01/20 Azelastine HCl [Azelastine Hydrochloride] 0.1 % INH PRN PRN 01/01/20 Esomeprazole Magnesium [Nexium] 40 mg PO PRN 01/01/20 Glucagon [Baqsimi One Pack] 3 mg NA PRN 01/01/20 Hydroxyzine HCl [Hydroxyzine Hydrochloride] 50 mg PO QID 01/01/20 Insulin Glargine [Lantus Solostar] 10 unit SC BEDTIME 01/01/20 Insulin Glargine [Lantus Solostar] 25 unit SC DAILY 01/01/20 Mometasone Furoate 0.1 % TOP PRN 01/01/20 Naloxone HCl [Narcan] 4 mg NA PRN 01/01/20 Promethazine Tab [Phenergan Tablet] 25 mg PO .Q4H PRN 01/01/20 Salmeterol Xinafoate [Serevent Diskus] 50 mcg IN PRN 01/01/20 Triamcinolone 0.5% Cream [Kenalog 0.5% Cream] 1 applic TOP PRN 01/01/20 Promethazine Supp [Phenergan Suppository] 12.[address] Q6H PRN #15 sup 02/20/20 Amoxicillin & Pot Clavulanate [Augmentin Tab] 875 mg PO BID 7 Days #14 tab 06/06/20 Ciprofloxacin [Cipro] 500 mg PO BID 10 Days #20 tab 07/14/20 Lactobacillus [Lactobacillus Probiotic] 1 tab PO BID #30 tab 07/14/20 metroNIDAZOLE [Flagyl] 500 mg PO Q8H 10 Days #30 tab 07/14/20
[2020-07-16] MEDS ORDERED: fentaNYL PATCH 75 MCG/HR 1 EA PATCH TD SCH (13:30)
[2020-07-16] MEDS ORDERED: HEPARIN SODIUM 100 U/ML 5 ML SYG IV ONE (14:04)
[2020-07-16 14:15] VITALS: BP 133/87; TEMP 97.7; O2SAT 100
== END 2020-07-16 14:15 | disposition home or self-care (01) ==
LOC: ER 11:23
DX: R11.2 Nausea with vomiting, unspecified (principal); R10.84 Generalized abdominal pain; F11.20 Opioid dependence, uncomplicated; F32.9 Major depressive disorder, single episode, unspecified; J45.909 Unspecified asthma, uncomplicated; I51.9 Heart disease, unspecified; E11.9 Type 2 diabetes mellitus without complications; K21.9 Gastro-esophageal reflux disease without esophagitis; Z79.899 Other long term (current) drug therapy; Z87.891 Personal history of nicotine dependence; Z79.4 Long term (current) use of insulin
CPT/HCPCS: 36415; 80053; 83690; 85025; A4216; J1642; J1885; J2060; J2550; J7030; Q0163

== ENCOUNTER 2020-07-31 21:28 | Emergency (ER) | payer MEDICARE, MEDICAID ==
[2020-07-31] MEDS ORDERED: PROMETHAZINE HCL INJ 25 MG in SODIUM CHLORIDE 0.9% 50ML 50 ML IVPB ONE (21:50)
[2020-07-31] MEDS ORDERED: diphenhydrAMINE HCL 50 MG/ML VIAL IV ONE (21:50)
[2020-07-31] MEDS ORDERED: ACETAMINOPHEN IV 1000MG 1,000 MG in PREMIX BOTTLE 1 BOTTLE IVPB ONE (21:52)
--- NOTE | 2020-07-31 22:14 | ED.PDOC ---
History of Present Illness - General Chief Complaint: Abdominal Pain Stated Complaint: abd pain Time Seen by Provider: 07/31/20 21:29 Source: patient, RN notes reviewed, Vital Signs reviewed, old records Exam Limitations: no limitations - History of Present Illness Initial Comments: 44 yo F comes in with worsening torticollis. States she also has some midepigastric pain. Drink lots of fluids, states she is well hydrated. States last visit, she got a fentanyl patch which really helped her pain. Requesting access to her port for pain medications. no fever, cough, shortness of breath. Allergies/Adverse Reactions: Allergies Fish Allergy Allergy (Verified 07/15/20 11:51) Haloperidol [From Haldol] Allergy (Verified 07/15/20 11:51) Prochlorperazine [From Compazine] Allergy (Verified 07/15/20 11:51) Ketorolac Tromethamine [From Toradol] Adverse Reaction (Verified 07/15/20 11:51) Metoclopramide [From Reglan] Adverse Reaction (Verified 07/15/20 11:51) peanut Allergy (Severe, Uncoded 06/06/20 12:16) Home Medications: Ambulatory Orders Mometasone Furoate [Elocon] 0.1 % TOP DAILY PRN 11/07/17 Epinephrine [Epipen 2-Mikael] 0.3 mg IJ ONCE PRN #1 pack 03/26/18 Buspirone HCl 30 mg PO BID 10/23/18 Diazepam 5 mg PO TID 02/21/19 Gabapentin 300 mg PO TID 11/11/19 Hydrocodone-Acetaminophen [[place] 7.5-325 mg] 1 tab PO TID 11/11/19 Vilazodone HCl [Viibryd] 40 mg PO DAILY 11/11/19 tiZANidine [Zanaflex] 12 mg PO Q8H PRN 11/11/19 Ondansetron Odt [Zofran Odt] 8 mg PO Q8H PRN #12 tab 12/25/19 Albuterol Sulfate [Proair Hfa] 2 puff INH Q6H PRN 01/01/20 Azelastine HCl [Azelastine Hydrochloride] 0.1 % INH PRN PRN 01/01/20 Esomeprazole Magnesium [Nexium] 40 mg PO PRN 01/01/20 Glucagon [Baqsimi One Pack] 3 mg NA PRN 01/01/20 Hydroxyzine HCl [Hydroxyzine Hydrochloride] 50 mg PO QID 01/01/20 Insulin Glargine [Lantus Solostar] 10 unit SC BEDTIME 01/01/20 Insulin Glargine [Lantus Solostar] 25 unit SC DAILY 01/01/20 Mometasone Furoate 0.1 % TOP PRN 01/01/20 Naloxone HCl [Narcan] 4 mg NA PRN 01/01/20 Promethazine Tab [Phenergan Tablet] 25 mg PO .Q4H PRN 01/01/20 Salmeterol Xinafoate [Serevent Diskus] 50 mcg IN PRN 01/01/20 Triamcinolone 0.5% Cream [Kenalog 0.5% Cream] 1 applic TOP PRN 01/01/20 Promethazine Supp [Phenergan Suppository] 12.5 mg ND Q6H PRN #15 sup 02/20/20 Amoxicillin & Pot Clavulanate [Augmentin Tab] 875 mg PO BID 7 Days #14 tab 06/06/20 Ciprofloxacin [Cipro] 500 mg PO BID 10 Days #20 tab 07/14/20 Lactobacillus [Lactobacillus Probiotic] 1 tab PO BID #30 tab 07/14/20 metroNIDAZOLE [Flagyl] 500 mg PO Q8H 10 Days #30 tab 07/14/20 Review of Systems - Review of Systems Constitutional: Denies: chills, fever EENTM: Denies: blurred vision, throat pain Respiratory: Denies: cough, short of breath Cardiology: Denies: chest pain Gastrointestinal/Abdominal: States: abdominal pain. Denies: constipation, diarrhea, nausea, vomiting Genitourinary: Denies: frequency Musculoskeletal: States: muscle pain, neck pain. Denies: back pain Skin: Denies: rash Neurological: Denies: headache, numbness, paresthesia, tingling, tremors, weakness Endocrine: Denies: unexplained weight gain Hematologic/Lymphatic: Denies: blood clots, easy bleeding, easy bruising Past Medical History (General) - Patient Medical History Hx Seizures: No Hx Stroke: No Hx Dementia: No Hx Asthma: Yes Hx of COPD: No Hx Cardiac Disorders: Yes Hx Congestive Heart Failure: No Hx Pacemaker: No Hx Hypertension: No Hx Thyroid Disease: No Hx Diabetes: Yes Hx Gastroesophageal Reflux: Yes Hx Renal Disease: No Hx Cancer: No Hx of HIV: No Hx Hepatitis C: No Hx MRSA: No MRSA Source:: Blood Surgical History: appendectomy, other - Vaccination History Hx Tetanus, Diphtheria Vaccination: Yes Hx Influenza Vaccination: Yes Hx Pneumococcal Vaccination: Yes - Social History Hx Tobacco Use: Yes - Half pack a day Hx Chewing Tobacco Use: No Hx Alcohol Use: No Hx Substance Use: Yes Hx Substance Use Treatment: No Hx Depression: Yes Hx Physical Abuse: No Hx Emotional Abuse: No Hx Suspected Abuse: No - Female History Hx Last Menstrual Period: 11/05/11 Patient : No Family Medical History - Family History Mother Family History: No Known Name: April Age (years): 70 Living Status: Still Living Hx Family Asthma: No Hx Family Congestive Heart Failure: No Hx Family Hypertension: No Hx Family Stroke: No Hx Cardiac Disease: No Hx Family Diabetes: No Hx Family Cancer: Yes - skin cancer Hx Family;Other: thyroid problems and seizures Father Family History: No Known Name: Marlon Age (years): 68 Living Status: Still Living Hx Family Asthma: - Sister Hx Family Congestive Heart Failure: No Hx Family Hypertension: Yes Hx Family Stroke: No Hx Cardiac Disease: Yes Hx Family Diabetes: No Age of Onset (years of age): 32 Hx Family Cancer: - Grandmother Lymphoma Physical Exam - Physical Exam General Appearance: Alert, Comfortable, No apparent distress, Well Developed, Well Groomed, Well Hydrated, Well Nourished Eye Exam: bilateral normal Ears, Nose, Throat: hearing grossly normal, normal ENT inspection, other - tm maryellen normal Neck: non-tender, supple, normal inspection, other - torticollis, trapezius muscle spasm Respiratory: chest non-tender, lungs clear, normal breath sounds, no respiratory distress, no accessory muscle use Cardiovascular/Chest: normal peripheral pulses, no edema, no gallop, no JVD, no murmur, tachycardia - hr 105 Peripheral Pulses: radial,right: 2+, radial,left: 2+ Gastrointestinal/Abdominal: normal bowel sounds, non tender, soft, no organomegaly, other - midline abdominal scar, no erythema, packing in place, no drainage. Rectal Exam: deferred Back Exam: normal inspection, no CVA tenderness Extremity: normal range of motion, non-tender, normal inspection, no pedal edema, no calf tenderness, normal capillary refill Neurologic: no motor/sensory deficits, alert, normal mood/affect, oriented x 3 Skin Exam: normal color, warm/dry Progress - Progress Progress: 07/31/20 22:48 patient given benadryl, phenergan, tylenol. given 5 mg valium for muscle spasm. The data reviewed when caring for this patient included: nurse notes, prior records, etc. The history and assessments from nurses notes were reviewed and considered, and the patient's home medication list was also reviewed and considered. My assessment and the results of testing completed here in the ED were discussed with the patient. All questions were answered, and she express understanding of my assessment and the plan. she have been instructed to return if their symptoms worsen, and have been asked to follow up with her primary care physician to recheck today's presenting complaint. return precautions given. Rebecca Garcia DO #[id number] 07/31/20 22:52 07/31/20 23:45 - Results/Orders Results/Orders: Laboratory Results POC Glucose 168 mg/dL (70-105) H 07/31/20 21:50 Departure - Departure Clinical Impression: Torticollis, Muscle spasm Time of Disposition: 22:49 Disposition: Discharge to Home or Self Care Condition: Fair Departure Forms: ED Discharge - Pt. Copy, Patient Portal Self Enrollment Instructions: DI for Abdominal Pain-Adult, Torticollis, Adult, Muscle Spasms (DC), Neck Stretches Diet: resume usual diet Activity: increase activity as tolerated Referrals: JUSTINO MARQUEZ IV, DYNAMOMETER TESTER ENGINE [Primary Care Provider] - 1-5 Days Home Medications: Ambulatory Orders Mometasone Furoate [Elocon] 0.1 % TOP DAILY PRN 11/07/17 Epinephrine [Epipen 2-Mikael] 0.3 mg IJ ONCE PRN #1 pack 03/26/18 Buspirone HCl 30 mg PO BID 10/23/18 Diazepam 5 mg PO TID 02/21/19 Gabapentin 300 mg PO TID 11/11/19 Hydrocodone-Acetaminophen [[place] 7.5-325 mg] 1 tab PO TID 11/11/19 Vilazodone HCl [Viibryd] 40 mg PO DAILY 11/11/19 tiZANidine [Zanaflex] 12 mg PO Q8H PRN 11/11/19 Ondansetron Odt [Zofran Odt] 8 mg PO Q8H PRN #12 tab 12/25/19 Albuterol Sulfate [Proair Hfa] 2 puff INH Q6H PRN 01/01/20 Azelastine HCl [Azelastine Hydrochloride] 0.1 % INH PRN PRN 01/01/20 Esomeprazole Magnesium [Nexium] 40 mg PO PRN 01/01/20 Glucagon [Baqsimi One Pack] 3 mg NA PRN 01/01/20 Hydroxyzine HCl [Hydroxyzine Hydrochloride] 50 mg PO QID 01/01/20 Insulin Glargine [Lantus Solostar] 10 unit SC BEDTIME 01/01/20 Insulin Glargine [Lantus Solostar] 25 unit SC DAILY 01/01/20 Mometasone Furoate 0.1 % TOP PRN 01/01/20 Naloxone HCl [Narcan] 4 mg NA PRN 01/01/20 Promethazine Tab [Phenergan Tablet] 25 mg PO .Q4H PRN 01/01/20 Salmeterol Xinafoate [Serevent Diskus] 50 mcg IN PRN 01/01/20 Triamcinolone 0.5% Cream [Kenalog 0.5% Cream] 1 applic TOP PRN 01/01/20 Promethazine Supp [Phenergan Suppository] 12.5 mg ND Q6H PRN #15 sup 02/20/20 Amoxicillin & Pot Clavulanate [Augmentin Tab] 875 mg PO BID 7 Days #14 tab 06/06/20 Ciprofloxacin [Cipro] 500 mg PO BID 10 Days #20 tab 07/14/20 Lactobacillus [Lactobacillus Probiotic] 1 tab PO BID #30 tab 07/14/20 metroNIDAZOLE [Flagyl] 500 mg PO Q8H 10 Days #30 tab 07/14/20
[2020-07-31] MEDS ORDERED: diazePAM INJ 10 MG/2 ML SYG IV ONE (22:37)
[2020-07-31 23:49] VITALS: BP 139/78; O2SAT 97
[2020-07-31 23:53] VITALS: TEMP 97
== END 2020-07-31 23:05 | disposition home or self-care (01) ==
LOC: ER 21:28
DX: M43.6 Torticollis (principal); M62.838 Other muscle spasm; R10.13 Epigastric pain; F32.9 Major depressive disorder, single episode, unspecified; J45.909 Unspecified asthma, uncomplicated; I51.9 Heart disease, unspecified; E11.9 Type 2 diabetes mellitus without complications; K21.9 Gastro-esophageal reflux disease without esophagitis; Z87.891 Personal history of nicotine dependence; Z90.49 Acquired absence of other specified parts of digestive tract; Z79.899 Other long term (current) drug therapy; Z79.4 Long term (current) use of insulin; Z91.013 Allergy to seafood; Z88.8 Allergy status to other drugs, medicaments and biological substances
CPT/HCPCS: 82948; A4216; J1200; J2550; J3360

== ENCOUNTER 2020-08-01 14:39 | Emergency (ER) | payer MEDICARE, MEDICAID ==
[2020-08-01] MEDS ORDERED: PROMETHAZINE HCL INJ 12.5 MG in SODIUM CHLORIDE 0.9% 50ML 50 ML IVPB ONE (15:03)
[2020-08-01] MEDS ORDERED: MORPHINE SULFATE INJ 10 MG/ML VIAL IV ONE (15:03)
[2020-08-01] MEDS ORDERED: fentaNYL PATCH 50 MCG/HR 1 EA PATCH TD ONE (15:04)
[2020-08-01] MEDS ORDERED: BENZTROPINE MESYLATE INJ 2 MG/2 ML AMP IV ONE (15:04)
--- NOTE | 2020-08-01 15:15 | ED.PDOC ---
History of Present Illness - General Chief Complaint: General Stated Complaint: jaw locked up/ abdominal pain Time Seen by Provider: 08/01/20 15:01 Source: patient Exam Limitations: no limitations - History of Present Illness Initial Comments: The patient is a 44-year-old female presented emergency room secondary to pain from her torticollis/dystonia/tardive dyskinesia. Along with her chronic recurrent abdominal pain. She apparently recently had a perforated ulcer which required surgery in [place]. The patient has been on a new medication for her torticollis by the name of Ingrezza, which apparently the patient ran out of about 6 days ago. She reports she has a shipment of it coming in today which she can picker and start taking later this evening. She has however not been able to hold down her routine medications very well over the last 24 to 48 hours, including her hydrocodone. She reports that she feels that the opiate withdrawal is worsening her abdominal pain and therefore the nausea. She reports decent blood sugar control. She has not really been vomiting much but just unable to get anything down. The patient has torticollis with her chin pointing towards the left and some difficulty with opening the jaw. No altered mental state. Bandages in place at the epigastric surgery site. No evidence of surrounding erythema. 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 The patient reports that she had been doing fairly well on her new medication until it ran out. No fevers. The patient was seen here last night secondary to the same issue. Timing/Duration: other Severity: moderate Improving Factors: nothing Worsening Factors: nothing Associated Symptoms: loss of appetite, malaise, nausea/vomiting Allergies/Adverse Reactions: Allergies Fish Allergy Allergy (Verified 07/15/20 11:51) Haloperidol [From Haldol] Allergy (Verified 07/15/20 11:51) NSAIDs Allergy (Verified 08/01/20 15:09) Prochlorperazine [From Compazine] Allergy (Verified 07/15/20 11:51) Ketorolac Tromethamine [From Toradol] Adverse Reaction (Verified 07/15/20 11:51) Metoclopramide [From Reglan] Adverse Reaction (Verified 07/15/20 11:51) peanut Allergy (Severe, Uncoded 06/06/20 12:16) Home Medications: Ambulatory Orders Mometasone Furoate [Elocon] 0.1 % TOP DAILY PRN 11/07/17 Epinephrine [Epipen 2-Mikael] 0.3 mg IJ ONCE PRN #1 pack 03/26/18 Buspirone HCl 30 mg PO BID 10/23/18 Diazepam 5 mg PO TID 02/21/19 Gabapentin 300 mg PO TID 11/11/19 Hydrocodone-Acetaminophen [[place] 7.5-325 mg] 1 tab PO TID 11/11/19 Vilazodone HCl [Viibryd] 40 mg PO DAILY 11/11/19 tiZANidine [Zanaflex] 12 mg PO Q8H PRN 11/11/19 Ondansetron Odt [Zofran Odt] 8 mg PO Q8H PRN #12 tab 12/25/19 Albuterol Sulfate [Proair Hfa] 2 puff INH Q6H PRN 01/01/20 Azelastine HCl [Azelastine Hydrochloride] 0.1 % INH PRN PRN 01/01/20 Esomeprazole Magnesium [Nexium] 40 mg PO PRN 01/01/20 Glucagon [Baqsimi One Pack] 3 mg NA PRN 01/01/20 Hydroxyzine HCl [Hydroxyzine Hydrochloride] 50 mg PO QID 01/01/20 Insulin Glargine [Lantus Solostar] 10 unit SC BEDTIME 01/01/20 Insulin Glargine [Lantus Solostar] 25 unit SC DAILY 01/01/20 Mometasone Furoate 0.1 % TOP PRN 01/01/20 Naloxone HCl [Narcan] 4 mg NA PRN 01/01/20 Promethazine Tab [Phenergan Tablet] 25 mg PO .Q4H PRN 01/01/20 Salmeterol Xinafoate [Serevent Diskus] 50 mcg IN PRN 01/01/20 Triamcinolone 0.5% Cream [Kenalog 0.5% Cream] 1 applic TOP PRN 01/01/20 Promethazine Supp [Phenergan Suppository] 12.5 mg IN Q6H PRN #15 sup 02/20/20 Amoxicillin & Pot Clavulanate [Augmentin Tab] 875 mg PO BID 7 Days #14 tab 06/06/20 Ciprofloxacin [Cipro] 500 mg PO BID 10 Days #20 tab 07/14/20 Lactobacillus [Lactobacillus Probiotic] 1 tab PO BID #30 tab 07/14/20 metroNIDAZOLE [Flagyl] 500 mg PO Q8H 10 Days #30 tab 07/14/20 Review of Systems - Review of Systems Constitutional: States: no symptoms reported EENTM: States: see HPI Respiratory: States: no symptoms reported Cardiology: States: no symptoms reported Gastrointestinal/Abdominal: States: see HPI Genitourinary: States: no symptoms reported Musculoskeletal: States: no symptoms reported Skin: States: no symptoms reported Neurological: States: see HPI Endocrine: States: no symptoms reported All other Systems: No Change from Baseline Past Medical History (General) - Patient Medical History Hx Seizures: No Hx Stroke: No Hx Dementia: No Hx Asthma: Yes Hx of COPD: No Hx Cardiac Disorders: Yes Hx Congestive Heart Failure: No Hx Pacemaker: No Hx Hypertension: No Hx Thyroid Disease: No Hx Diabetes: Yes Hx Gastroesophageal Reflux: Yes Hx Renal Disease: No Hx Cancer: No Hx of HIV: No Hx Hepatitis C: No Hx MRSA: No MRSA Source:: Blood - Vaccination History Hx Tetanus, Diphtheria Vaccination: Yes Hx Influenza Vaccination: Yes Hx Pneumococcal Vaccination: Yes - Social History Hx Tobacco Use: Yes - Half pack a day Hx Chewing Tobacco Use: No Hx Alcohol Use: No Hx Substance Use: Yes Hx Substance Use Treatment: No Hx Depression: Yes Hx Physical Abuse: No Hx Emotional Abuse: No Hx Suspected Abuse: No - Female History Hx Last Menstrual Period: 11/05/11 Patient : No Family Medical History - Family History Mother Family History: No Known Name: April Age (years): 70 Living Status: Still Living Hx Family Asthma: No Hx Family Congestive Heart Failure: No Hx Family Hypertension: No Hx Family Stroke: No Hx Cardiac Disease: No Hx Family Diabetes: No Hx Family Cancer: Yes - skin cancer Hx Family;Other: thyroid problems and seizures Father Family History: No Known Name: Marlon Age (years): 68 Living Status: Still Living Hx Family Asthma: - Sister Hx Family Congestive Heart Failure: No Hx Family Hypertension: Yes Hx Family Stroke: No Hx Cardiac Disease: Yes Hx Family Diabetes: No Age of Onset (years of age): 32 Hx Family Cancer: - Grandmother Lymphoma Physical Exam - Physical Exam General Appearance: Alert Eye Exam: bilateral normal Ears, Nose, Throat: hearing grossly normal, normal pharynx, other - See HPI Neck: limited range of motion - See HPI Respiratory: lungs clear, normal breath sounds, no respiratory distress, no accessory muscle use Cardiovascular/Chest: normal peripheral pulses, regular rate, rhythm, no edema Peripheral Pulses: radial,right: 2+, radial,left: 2+ Gastrointestinal/Abdominal: non tender - Mild discomfort around epigastric procedure site., soft Rectal Exam: deferred Back Exam: no CVA tenderness, no vertebral tenderness Extremity: normal range of motion, non-tender, normal inspection, no pedal edema, normal capillary refill Neurologic: email manager II-XII nml as tested, alert, normal mood/affect, oriented x 3 Skin Exam: normal color Progress - Progress Progress: 08/01/20 15:18 The patient is a 44-year-old female presenting to the emergency room secondary to torticollis related to her psychiatric medications and running out of her Ingrezza. She apparently is getting a shipment of this medication in today which she can start later today. For now the patient is being dosed with a dose of pain medications along with a dose of Cogentin. She is also being given a dose of Phenergan IV piggyback for the nausea and vomiting, to hopefully help her hold down some of her routine medications. The patient reports difficulty with holding down her hydrocodone for now, so based on dosage the patient will have a fentanyl 50 mcg patch placed to help prevent withdrawal worsening the nausea and vomiting. This can remain in place for up to 3 days. The patient is not to take her hydrocodone while she has the patch on. The patient is to immediately resume her Ingrezza once it is filled. She does need to maintain her blood sugars under tight control to help improve bowel dysfunction. She does need to follow-up with her primary care doctor later this week. ER warnings are given. lana anderson [email or web address] Departure - Departure Clinical Impression: Torticollis, spasmodic, Cyclical vomiting with nausea Disposition: Discharge to Home or Self Care Condition: Fair Departure Forms: ED Discharge - Pt. Copy, Patient Portal Self Enrollment Instructions: Torticollis (DC) Diet: diabetic diet Activity: increase activity as tolerated Referrals: JUSTINO MARQUEZ IV SOFTWARE SUPPORT ENGINEER [Primary Care Provider] - 1-2 Weeks Home Medications: Ambulatory Orders Mometasone Furoate [Elocon] 0.1 % TOP DAILY PRN 11/07/17 Epinephrine [Epipen 2-Mikael] 0.3 mg IJ ONCE PRN #1 pack 03/26/18 Buspirone HCl 30 mg PO BID 10/23/18 Diazepam 5 mg PO TID 02/21/19 Gabapentin 300 mg PO TID 11/11/19 Hydrocodone-Acetaminophen [[place] 7.5-325 mg] 1 tab PO TID 11/11/19 Vilazodone HCl [Viibryd] 40 mg PO DAILY 11/11/19 tiZANidine [Zanaflex] 12 mg PO Q8H PRN 11/11/19 Ondansetron Odt [Zofran Odt] 8 mg PO Q8H PRN #12 tab 12/25/19 Albuterol Sulfate [Proair Hfa] 2 puff INH Q6H PRN 01/01/20 Azelastine HCl [Azelastine Hydrochloride] 0.1 % INH PRN PRN 01/01/20 Esomeprazole Magnesium [Nexium] 40 mg PO PRN 01/01/20 Glucagon [Baqsimi One Pack] 3 mg NA PRN 01/01/20 Hydroxyzine HCl [Hydroxyzine Hydrochloride] 50 mg PO QID 01/01/20 Insulin Glargine [Lantus Solostar] 10 unit SC BEDTIME 01/01/20 Insulin Glargine [Lantus Solostar] 25 unit SC DAILY 01/01/20 Mometasone Furoate 0.1 % TOP PRN 01/01/20 Naloxone HCl [Narcan] 4 mg NA PRN 01/01/20 Promethazine Tab [Phenergan Tablet] 25 mg PO .Q4H PRN 01/01/20 Salmeterol Xinafoate [Serevent Diskus] 50 mcg IN PRN 01/01/20 Triamcinolone 0.5% Cream [Kenalog 0.5% Cream] 1 applic TOP PRN 01/01/20 Promethazine Supp [Phenergan Suppository] 12.5 mg IN Q6H PRN #15 sup 02/20/20 Amoxicillin & Pot Clavulanate [Augmentin Tab] 875 mg PO BID 7 Days #14 tab 06/06/20 Ciprofloxacin [Cipro] 500 mg PO BID 10 Days #20 tab 07/14/20 Lactobacillus [Lactobacillus Probiotic] 1 tab PO BID #30 tab 07/14/20 metroNIDAZOLE [Flagyl] 500 mg PO Q8H 10 Days #30 tab 07/14/20 Additional Instructions: The patient is a 44-year-old female presenting to the emergency room secondary to torticollis related to her psychiatric medications and running out of her Ingrezza. She apparently is getting a shipment of this medication in today which she can start later today. For now the patient is being dosed with a dose of pain medications along with a dose of Cogentin. She is also being given a dose of Phenergan IV piggyback for the nausea and vomiting, to hopefully help her hold down some of her routine medications. The patient reports difficulty with holding down her hydrocodone for now, so based on dosage the patient will have a fentanyl 50 mcg patch placed to help prevent withdrawal worsening the nausea and vomiting. This can remain in place for up to 3 days. The patient is not to take her hydrocodone while she has the patch on. The patient is to immediately resume her Ingrezza once it is filled. She does need to maintain her blood sugars under tight control to help improve bowel dysfunction. She does need to follow-up with her primary care doctor later this week. ER warnings are given.
[2020-08-01] MEDS ORDERED: HEPARIN SODIUM 100 U/ML 5 ML SYG IV ONE (16:09)
[2020-08-01 16:21] VITALS: TEMP 98.1
[2020-08-01 16:24] VITALS: BP 132/74; O2SAT 96
== END 2020-08-01 16:09 | disposition home or self-care (01) ==
LOC: ER 14:39
DX: R11.15 Cyclical vomiting syndrome unrelated to migraine (principal); G24.3 Spasmodic torticollis; R10.9 Unspecified abdominal pain; G89.29 Other chronic pain; E11.9 Type 2 diabetes mellitus without complications; F32.9 Major depressive disorder, single episode, unspecified; J45.909 Unspecified asthma, uncomplicated; I51.9 Heart disease, unspecified; K21.9 Gastro-esophageal reflux disease without esophagitis; Z79.899 Other long term (current) drug therapy; Z87.891 Personal history of nicotine dependence; Z79.4 Long term (current) use of insulin; Z88.8 Allergy status to other drugs, medicaments and biological substances; Z88.6 Allergy status to analgesic agent; Z91.013 Allergy to seafood; Z87.11 Personal history of peptic ulcer disease; Z98.890 Other specified postprocedural states; Z79.891 Long term (current) use of opiate analgesic
CPT/HCPCS: A4216; J0515; J1642; J2060; J2270; J2550

== ENCOUNTER 2020-08-08 11:45 | Emergency (ER) | payer MEDICARE, OTHER ==
[2020-08-08] MEDS: BENZTROPINE MESYLATE INJ 2 MG/2 ML AMP IV STA (12:26)
[2020-08-08] MEDS: PROMETHAZINE HCL INJ 25 MG in SODIUM CHLORIDE 0.9% 50ML 50 ML IVPB ONE (12:26)
--- NOTE | 2020-08-08 12:36 | ED.PDOC ---
History of Present Illness - General Chief Complaint: Abdominal Pain Stated Complaint: n/v chest pain/abd pain Time Seen by Provider: 08/08/20 11:47 - History of Present Illness Initial Comments: PATIENT COMING IN WITH HER USUAL SYMPTOMS OF N/V AND ABD PAIN. PATIENT WITH LONG STANDING HISTORY OF OPIOID DEPENDENCY. SHE CONTINUES TO STATE SHE IS TAKING HYDROCODONE 3-4 TIMES DAILY BUT HAS NOT HAD A PRESCRIPTION ON HER PNP RECORD FOR MONTHS CONSISTENT WITH THAT USE. PATIENT HAS LONG HISTORY OF MANIPULATIVE BEHAVIOUR AND SEEKING DRUGS IN THE ER. SHE HAS REPEATEDLY PRESENTED WITH SYMPTOMS C/W WITH OPIOID WITHDRAWAL SHE PRESENTS WITH THE SAME TODAY. Quality: severe Timing/Duration: days - 3-4 Review of Systems - Review of Systems Constitutional: States: no symptoms reported EENTM: States: no symptoms reported Respiratory: States: no symptoms reported Cardiology: States: no symptoms reported Gastrointestinal/Abdominal: States: see HPI Genitourinary: States: no symptoms reported Past Medical History (General) - Patient Medical History Hx Seizures: No Hx Stroke: No Hx Dementia: No Hx Asthma: Yes Hx of COPD: No Hx Cardiac Disorders: Yes Hx Congestive Heart Failure: No Hx Pacemaker: No Hx Hypertension: No Hx Thyroid Disease: No Hx Diabetes: Yes Hx Gastroesophageal Reflux: Yes Hx Renal Disease: No Hx Cancer: No Hx of HIV: No Hx Hepatitis C: No Hx MRSA: No MRSA Source:: Blood - Vaccination History Hx Tetanus, Diphtheria Vaccination: Yes Hx Influenza Vaccination: Yes Hx Pneumococcal Vaccination: Yes - Social History Hx Tobacco Use: Yes - Half pack a day Hx Chewing Tobacco Use: No Hx Alcohol Use: No Hx Substance Use: Yes Hx Substance Use Treatment: No Hx Depression: Yes Hx Physical Abuse: No Hx Emotional Abuse: No Hx Suspected Abuse: No - Female History Hx Last Menstrual Period: 11/05/11 Patient : No Family Medical History - Family History Mother Family History: No Known Name: April Age (years): 70 Living Status: Still Living Hx Family Asthma: No Hx Family Congestive Heart Failure: No Hx Family Hypertension: No Hx Family Stroke: No Hx Cardiac Disease: No Hx Family Diabetes: No Hx Family Cancer: Yes - skin cancer Hx Family;Other: thyroid problems and seizures Father Family History: No Known Name: Marlon Age (years): 68 Living Status: Still Living Hx Family Asthma: - Sister Hx Family Congestive Heart Failure: No Hx Family Hypertension: Yes Hx Family Stroke: No Hx Cardiac Disease: Yes Hx Family Diabetes: No Age of Onset (years of age): 32 Hx Family Cancer: - Grandmother Lymphoma Physical Exam - Physical Exam General Appearance: Agitated - PATIENT'S HISTORY IS COMPLETELY UNRELIABLE AND FILLED WITH INCONSISTENCIES. , Alert, Restless, Other - MENG Neck: non-tender, full range of motion, supple, normal inspection Respiratory: chest non-tender, lungs clear, normal breath sounds Cardiovascular/Chest: normal peripheral pulses, regular rate, rhythm, no edema, no gallop, no JVD, no murmur Peripheral Pulses: No deficit Gastrointestinal/Abdominal: normal bowel sounds, non tender, soft, no organomegaly, no pulsatile mass Progress - Progress Progress: 08/08/20 12:39 REPEATED URINE SAMPLES COLLECTED TODAY ARE WELL BELOW BODY TEMPERATURE, INDICATED SUBSTITUTION TO AVOID DRUG SCREEN TESTING. STRONGLY SUSPECT SHE IS USING OPIOID OFF THE STREET, AT THIS POINT, HEROIN WOULD BE THE MOST LIKELY. SHE IS UNCOOPERATIVE WITH DRUG TESTING HER URINE AND IS COMPLETELY DISHONEST WITH HER HISTORY SO IT IS IMPOSSIBLE TO KNOW FOR SURE. HAVE ADVISED HER WE CANNOT TREAT HER PAIN, DEPENDENCY OR PSYCHIATRIC SYMPTOMS IN THE ER, SHE MUST FOLLOW UP WITH SAME PROVIDER IN CLINIC. SHE HAS REPEATEDLY FAILED TO FOLLOW THESE ER RECOMMENDATIONS. 08/08/20 13:12 - EKG/XRAY/CT CT Ordered: No CT Interpretation Call Back: No Departure - Departure Clinical Impression: Narcotic withdrawal Time of Disposition: 12:40 Disposition: Discharge to Home or Self Care Condition: Fair Health Concerns: STOP USE OF STREET DRUGS. RECOMMEND ATTENDANCE AT SUBSTANCE ABUSE TREATMENT. Departure Forms: ED Discharge - Pt. Copy, Patient Portal Self Enrollment Instructions: DI for Abdominal Pain-Adult Referrals: JUSTINO MARQUEZ IV MEDICAL OFFICE RECEPTIONIST ASSISTANT [Primary Care Provider] - 1-2 Weeks Prescriptions: Clonidine HCl 0.1 mg PO TID #21 tab Home Medications: Ambulatory Orders Mometasone Furoate [Elocon] 0.1 % TOP DAILY PRN 11/07/17 Epinephrine [Epipen 2-Mikael] 0.3 mg IJ ONCE PRN #1 pack 03/26/18 Buspirone HCl 30 mg PO BID 10/23/18 Diazepam 5 mg PO TID 02/21/19 Gabapentin 300 mg PO TID 11/11/19 Hydrocodone-Acetaminophen [[place] 7.5-325 mg] 1 tab PO TID 11/11/19 Vilazodone HCl [Viibryd] 40 mg PO DAILY 11/11/19 tiZANidine [Zanaflex] 12 mg PO Q8H PRN 11/11/19 Ondansetron Odt [Zofran Odt] 8 mg PO Q8H PRN #12 tab 12/25/19 Albuterol Sulfate [Proair Hfa] 2 puff INH Q6H PRN 01/01/20 Azelastine HCl [Azelastine Hydrochloride] 0.1 % INH PRN PRN 01/01/20 Esomeprazole Magnesium [Nexium] 40 mg PO PRN 01/01/20 Glucagon [Baqsimi One Pack] 3 mg NA PRN 01/01/20 Hydroxyzine HCl [Hydroxyzine Hydrochloride] 50 mg PO QID 01/01/20 Insulin Glargine [Lantus Solostar] 10 unit SC BEDTIME 01/01/20 Insulin Glargine [Lantus Solostar] 25 unit SC DAILY 01/01/20 Mometasone Furoate 0.1 % TOP PRN 01/01/20 Naloxone HCl [Narcan] 4 mg NA PRN 01/01/20 Promethazine Tab [Phenergan Tablet] 25 mg PO .Q4H PRN 01/01/20 Salmeterol Xinafoate [Serevent Diskus] 50 mcg IN PRN 01/01/20 Triamcinolone 0.5% Cream [Kenalog 0.5% Cream] 1 applic TOP PRN 01/01/20 Promethazine Supp [Phenergan Suppository] 12.5 mg [place] Q6H PRN #15 sup 02/20/20 Amoxicillin & Pot Clavulanate [Augmentin Tab] 875 mg PO BID 7 Days #14 tab 06/06/20 Ciprofloxacin [Cipro] 500 mg PO BID 10 Days #20 tab 07/14/20 Lactobacillus [Lactobacillus Probiotic] 1 tab PO BID #30 tab 07/14/20 metroNIDAZOLE [Flagyl] 500 mg PO Q8H 10 Days #30 tab 07/14/20 Clonidine HCl 0.1 mg PO TID #21 tab 08/08/20 Additional Instructions: YOU MUST FOLLOW UP WITH YOUR PAIN DOCTOR AND YOUR PSYCHIATRIST. WE CANNOT TREAT THESE SYMPTOMS IN THE ER.
[2020-08-08] MEDS: cloNIDine HCL 0.1 MG TAB PO ONE (12:43)
[2020-08-08] MEDS ORDERED: HEPARIN SODIUM 100 U/ML 5 ML SYG IV ONE (13:04)
[2020-08-08 13:19] VITALS: BP 127/86; TEMP 98.6; O2SAT 98
== END 2020-08-08 13:00 | disposition home or self-care (01) ==
LOC: ER 11:45
DX: F11.23 Opioid dependence with withdrawal (principal); J45.909 Unspecified asthma, uncomplicated; I51.9 Heart disease, unspecified; E11.9 Type 2 diabetes mellitus without complications; K21.9 Gastro-esophageal reflux disease without esophagitis; F32.9 Major depressive disorder, single episode, unspecified; Z87.891 Personal history of nicotine dependence; Z79.899 Other long term (current) drug therapy; Z79.4 Long term (current) use of insulin

== ENCOUNTER 2020-08-09 15:23 | Emergency (ER) | payer MEDICARE, MEDICAID ==
--- NOTE | 2020-08-09 16:29 | RAD ---
EXAM DESCRIPTION: Chest,1 View CLINICAL HISTORY: 44 years Female FEVER, TACHYCARDIA. COMPARISON: 06/06/2020. FINDINGS: The patient is rotated towards the right. There is a stable right chest port. The cardiomediastinal silhouette appears unremarkable. No consolidating infiltrates or pleural effusions. No pneumothorax. IMPRESSION: No acute abnormality is identified. Electronically signed by: Hao Lisa MD 08/09/2020 4:28 PM GLOBAL TRANSPORTATION MANAGER
[2020-08-09] MEDS ORDERED: SODIUM CHLORIDE 0.9% 1000ML 1,000 ML IVS ONE ×2 (17:46→21:19)
[2020-08-09] MEDS ORDERED: INSULIN, REG.(HUMAN) 100 U/ML VIAL SUBCU ONE (17:47)
[2020-08-09] MEDS ORDERED: SODIUM CHLORIDE 0.9% (FLUSH) 10 ML SYG ONE (17:58)
[2020-08-09] MEDS ORDERED: ONDANSETRON INJ 4 MG/2 ML VIAL IV ONE ×2 (18:19→23:07)
[2020-08-09] MEDS ORDERED: diphenhydrAMINE HCL 50 MG/ML VIAL IV ONE ×2 (18:54→23:15)
[2020-08-09 19:10] VITALS: O2SAT 96
--- NOTE | 2020-08-09 21:23 | ED.PDOC ---
History of Present Illness - General Chief Complaint: GI Problem Stated Complaint: N/V Time Seen by Provider: 08/09/20 15:32 Source: patient Exam Limitations: no limitations - History of Present Illness Initial Comments: SHAKY, FEVERISH, NAUSEOUS. LOST 13 LBS OVER PAST 4 D. H/O IDDM TYPE 1. Timing/Duration: 24 hours Severity: moderate Improving Factors: nothing Worsening Factors: nothing Associated Symptoms: fever/chills, nausea/vomiting Allergies/Adverse Reactions: Allergies Fish Allergy Allergy (Verified 08/01/20 15:42) Haloperidol [From Haldol] Allergy (Verified 08/01/20 15:42) NSAIDs Allergy (Verified 08/01/20 15:42) Prochlorperazine [From Compazine] Allergy (Verified 08/01/20 15:42) Ketorolac Tromethamine [From Toradol] Adverse Reaction (Verified 08/01/20 15:42) Metoclopramide [From Reglan] Adverse Reaction (Verified 08/01/20 15:42) peanut Allergy (Severe, Uncoded 08/01/20 15:42) Home Medications: Ambulatory Orders Mometasone Furoate [Elocon] 0.1 % TOP DAILY PRN 11/07/17 Epinephrine [Epipen 2-Mikael] 0.3 mg IJ ONCE PRN #1 pack 03/26/18 Buspirone HCl 30 mg PO BID 10/23/18 Diazepam 5 mg PO TID 02/21/19 Gabapentin 300 mg PO TID 11/11/19 Hydrocodone-Acetaminophen [[place] 7.5-325 mg] 1 tab PO TID 11/11/19 Vilazodone HCl [Viibryd] 40 mg PO DAILY 11/11/19 tiZANidine [Zanaflex] 12 mg PO Q8H PRN 11/11/19 Ondansetron Odt [Zofran Odt] 8 mg PO Q8H PRN #12 tab 12/25/19 Albuterol Sulfate [Proair Hfa] 2 puff INH Q6H PRN 01/01/20 Azelastine HCl [Azelastine Hydrochloride] 0.1 % INH PRN PRN 01/01/20 Esomeprazole Magnesium [Nexium] 40 mg PO PRN 01/01/20 Glucagon [Baqsimi One Pack] 3 mg NA PRN 01/01/20 Hydroxyzine HCl [Hydroxyzine Hydrochloride] 50 mg PO QID 01/01/20 Insulin Glargine [Lantus Solostar] 10 unit SC BEDTIME 01/01/20 Insulin Glargine [Lantus Solostar] 25 unit SC DAILY 01/01/20 Mometasone Furoate 0.1 % TOP PRN 01/01/20 Naloxone HCl [Narcan] 4 mg NA PRN 01/01/20 Promethazine Tab [Phenergan Tablet] 25 mg PO .Q4H PRN 01/01/20 Salmeterol Xinafoate [Serevent Diskus] 50 mcg IN PRN 01/01/20 Triamcinolone 0.5% Cream [Kenalog 0.5% Cream] 1 applic TOP PRN 01/01/20 Promethazine Supp [Phenergan Suppository] 12.5 mg [place] Q6H PRN #15 sup 02/20/20 Amoxicillin & Pot Clavulanate [Augmentin Tab] 875 mg PO BID 7 Days #14 tab 06/06/20 Ciprofloxacin [Cipro] 500 mg PO BID 10 Days #20 tab 07/14/20 Lactobacillus [Lactobacillus Probiotic] 1 tab PO BID #30 tab 07/14/20 metroNIDAZOLE [Flagyl] 500 mg PO Q8H 10 Days #30 tab 07/14/20 Clonidine HCl 0.1 mg PO TID #21 tab 08/08/20 Review of Systems - Review of Systems Constitutional: States: fever, malaise, weakness EENTM: States: no symptoms reported Respiratory: Denies: cough, short of breath Cardiology: Denies: chest pain, palpitations Gastrointestinal/Abdominal: States: nausea, other - MILD ABD DISCOMFORT. . Denies: diarrhea Genitourinary: Denies: dysuria, frequency Musculoskeletal: Denies: back pain, neck pain Skin: States: no symptoms reported Neurological: States: no symptoms reported Endocrine: States: no symptoms reported Hematologic/Lymphatic: States: no symptoms reported All other Systems: Reviewed and Negative Past Medical History (General) - Patient Medical History Hx Seizures: No Hx Stroke: No Hx Dementia: No Hx Asthma: Yes Hx of COPD: No Hx Cardiac Disorders: Yes Hx Congestive Heart Failure: No Hx Pacemaker: No Hx Hypertension: No Hx Thyroid Disease: No Hx Diabetes: Yes Hx Gastroesophageal Reflux: Yes Hx Renal Disease: No Hx Cancer: No Hx of HIV: No Hx Hepatitis C: No Hx MRSA: No MRSA Source:: Blood - Vaccination History Hx Tetanus, Diphtheria Vaccination: Yes Hx Influenza Vaccination: Yes Hx Pneumococcal Vaccination: Yes - Social History Hx Tobacco Use: Yes - Half pack a day Hx Chewing Tobacco Use: No Hx Alcohol Use: No Hx Substance Use: Yes Hx Substance Use Treatment: No Hx Depression: Yes Hx Physical Abuse: No Hx Emotional Abuse: No Hx Suspected Abuse: No - Activities of Daily Living Hospice Agency (if applicable):: None - Female History Hx Last Menstrual Period: 11/05/11 Patient : No Family Medical History - Family History Mother Family History: No Known Name: April Age (years): 70 Living Status: Still Living Hx Family Asthma: No Hx Family Congestive Heart Failure: No Hx Family Hypertension: No Hx Family Stroke: No Hx Cardiac Disease: No Hx Family Diabetes: No Hx Family Cancer: Yes - skin cancer Hx Family;Other: thyroid problems and seizures Father Family History: No Known Name: Marlon Age (years): 68 Living Status: Still Living Hx Family Asthma: - Sister Hx Family Congestive Heart Failure: No Hx Family Hypertension: Yes Hx Family Stroke: No Hx Cardiac Disease: Yes Hx Family Diabetes: No Age of Onset (years of age): 32 Hx Family Cancer: - Grandmother Lymphoma Physical Exam - Physical Exam General Appearance: Alert, Frail Eye Exam: bilateral normal Ears, Nose, Throat: normal ENT inspection, normal pharynx Neck: non-tender, full range of motion Respiratory: lungs clear, normal breath sounds, no respiratory distress, no accessory muscle use Cardiovascular/Chest: no edema, no gallop, no JVD, no murmur Peripheral Pulses: radial,right: 1+, radial,left: 1+ Gastrointestinal/Abdominal: normal bowel sounds, non tender, soft, no organomegaly, no pulsatile mass, other - J TUBE SITE CLEAN, DRY, INTACT, NO ERYTHEMA, NO PURULENCE. Rectal Exam: deferred Back Exam: normal inspection, no CVA tenderness Extremity: non-tender, normal inspection Neurologic: no motor/sensory deficits, alert, normal mood/affect, oriented x 3 Skin Exam: normal color, warm/dry Lymphatic: no adenopathy Progress - Progress Progress: HYPERGLYCEMIA (NOT IN DKA) - GLUCOSE 457, ANION GAP ELEVATED 22. BOLUSED AND GAVE 10 UNITSINSULIN SQ. EKG SINUS TACHYCARDIA, DEHYDRATED - IVF. UNCONTROLLED IDDM TYPE 1. COVID NEG, FLU NEG, CBC UNREMARKABLE, CXR NEG, SERUM KETONES NEG, LACTIC ACID WNL. 08/09/20 21:19 RECHECKING BMP (HIGH ANION GAP AND GLUCOSE). GIVING 2ND BOLUS. 08/09/20 22:03 PT IS ASKING FOR MEDICATION FOR ANXIETY. SHE HAS A KNOWN H/O OF DRUG-SEEKING BEHAVIOR. I EXPLAINED SHE IS HERE FOR TX FOR HER HYPERGLYCEMIA AND THAT SHE ALREADY RECEIVES XANAX FROM OUTPT . 08/09/20 23:04 ANION GAP NOW WNL HYPERGLYLCEMIA RESOLVED (NOW 82, CAUTIOUS OF HYPOGLYCEMIA, WILL GIVE CRACKERS). PT REQUESTS NAUSEA MED AND MORE BENADRYL IV IN ER (ALREADY HAS RX FOR AT HOME BUT UNABLE TO KEEP IT DOWN). PT STATES SHE'S NOT ALLERGIC TO PHENERGAN. TACHYCARDIA RESOLVED WITH IVF. SAFE FOR DC TO HOME. Departure - Departure Clinical Impression: Hyperglycemia due to type 1 diabetes mellitus, Diabetes mellitus, insulin dependent (IDDM), uncontrolled, Sinus tachycardia by electrocardiogram, Dehydration, Nausea Disposition: Discharge to Home or Self Care Condition: Good Departure Forms: ED Discharge - Pt. Copy, Patient Portal Self Enrollment Instructions: Hyperglycemia, Adult (DC) Diet: resume usual diet Activity: increase activity as tolerated Referrals: JUSTINO MARQUEZ IV, SLEEPING CAR CONDUCTOR [Primary Care Provider] - 1-2 Weeks Home Medications: Ambulatory Orders Mometasone Furoate [Elocon] 0.1 % TOP DAILY PRN 11/07/17 Epinephrine [Epipen 2-Mikael] 0.3 mg IJ ONCE PRN #1 pack 03/26/18 Buspirone HCl 30 mg PO BID 10/23/18 Diazepam 5 mg PO TID 02/21/19 Gabapentin 300 mg PO TID 11/11/19 Hydrocodone-Acetaminophen [[place] 7.5-325 mg] 1 tab PO TID 11/11/19 Vilazodone HCl [Viibryd] 40 mg PO DAILY 11/11/19 tiZANidine [Zanaflex] 12 mg PO Q8H PRN 11/11/19 Ondansetron Odt [Zofran Odt] 8 mg PO Q8H PRN #12 tab 12/25/19 Albuterol Sulfate [Proair Hfa] 2 puff INH Q6H PRN 01/01/20 Azelastine HCl [Azelastine Hydrochloride] 0.1 % INH PRN PRN 01/01/20 Esomeprazole Magnesium [Nexium] 40 mg PO PRN 01/01/20 Glucagon [Baqsimi One Pack] 3 mg NA PRN 01/01/20 Hydroxyzine HCl [Hydroxyzine Hydrochloride] 50 mg PO QID 01/01/20 Insulin Glargine [Lantus Solostar] 10 unit SC BEDTIME 01/01/20 Insulin Glargine [Lantus Solostar] 25 unit SC DAILY 01/01/20 Mometasone Furoate 0.1 % TOP PRN 01/01/20 Naloxone HCl [Narcan] 4 mg NA PRN 01/01/20 Promethazine Tab [Phenergan Tablet] 25 mg PO .Q4H PRN 01/01/20 Salmeterol Xinafoate [Serevent Diskus] 50 mcg IN PRN 01/01/20 Triamcinolone 0.5% Cream [Kenalog 0.5% Cream] 1 applic TOP PRN 01/01/20 Promethazine Supp [Phenergan Suppository] 12.5 mg [place] Q6H PRN #15 sup 02/20/20 Amoxicillin & Pot Clavulanate [Augmentin Tab] 875 mg PO BID 7 Days #14 tab 06/06/20 Ciprofloxacin [Cipro] 500 mg PO BID 10 Days #20 tab 07/14/20 Lactobacillus [Lactobacillus Probiotic] 1 tab PO BID #30 tab 07/14/20 metroNIDAZOLE [Flagyl] 500 mg PO Q8H 10 Days #30 tab 07/14/20 Clonidine HCl 0.1 mg PO TID #21 tab 08/08/20
[2020-08-09] MEDS ORDERED: PROMETHAZINE HCL INJ 25 MG in SODIUM CHLORIDE 0.9% 50ML 50 ML IVPB ONE (23:12)
[2020-08-09] MEDS ORDERED: HEPARIN SODIUM 100 U/ML 5 ML SYG IV ONE (23:23)
[2020-08-09 23:33] VITALS: BP 108/60; TEMP 98.3
== END 2020-08-09 23:33 | disposition home or self-care (01) ==
LOC: ER 15:23
DX: E10.65 Type 1 diabetes mellitus with hyperglycemia (principal); R00.0 Tachycardia, unspecified; E86.0 Dehydration; R11.2 Nausea with vomiting, unspecified; J45.909 Unspecified asthma, uncomplicated; I51.9 Heart disease, unspecified; K21.9 Gastro-esophageal reflux disease without esophagitis; F32.9 Major depressive disorder, single episode, unspecified; Z20.822 Contact with and (suspected) exposure to COVID-19; Z79.4 Long term (current) use of insulin; Z87.891 Personal history of nicotine dependence; Z79.899 Other long term (current) drug therapy
CPT/HCPCS: 36415; 71045; 80048; 80053; 82009; 83605; 85025; 87502; 87635; 93005; A4216; J1200; J1642; J2405; J2550; J7030

== ENCOUNTER 2020-08-14 11:19 | Emergency (ER) | payer MEDICARE, MEDICAID ==
[2020-08-14] MEDS ORDERED: SODIUM CHLORIDE 0.9% 1000ML 1,000 ML IVS ONE ×2 (11:33→12:28)
[2020-08-14] MEDS ORDERED: ONDANSETRON INJ 4 MG/2 ML VIAL IV ONE (11:33)
--- NOTE | 2020-08-14 11:39 | ED.PDOC ---
History of Present Illness - General Chief Complaint: GI Problem Stated Complaint: unable to keep anything down Time Seen by Provider: 08/14/20 11:21 Source: patient - History of Present Illness Initial Comments: 44-year-old female with past medical history of diabetes, gastroparesis, opioid addiction/dependency, drug-seeking behavior who is brought in by ambulance from home for chief complaint of chest pain. Patient reports had been, which has been coming and going for several days, worsened this morning, reports located to the center of her chest with radiation to the left side of the chest, tig htness, currently 9/10 severity, unsure of exacerbating factors, she reports taking some Xanax and 1 hydrocodone this morning without relief. Additionally she reports her usual chronic symptoms of abdominal pain with nausea and vomiting and diarrhea. She states she has had 3 episodes of emesis and 2 episodes of diarrhea this morning. Reports intermittent dry cough. Denies fevers, chills, dyspnea. Patient states that she called her surgeon Dr. Alejandra who who advised her to go to the ER. Patient is seen in this ED very often, approximately 7 times in the past 2 weeks. She has a long well-documented history of drug-seeking behavior. Upon arrival today she is immediately asking for "something to treat my pain and anxiety." Reports she sees Dr. Iyer and Dr. Vargas as well. She states she is down to taking only 1 hydrocodone per day. Allergies/Adverse Reactions: Allergies Fish Allergy Allergy (Verified 08/01/20 15:42) Haloperidol [From Haldol] Allergy (Verified 08/01/20 15:42) NSAIDs Allergy (Verified 08/01/20 15:42) Prochlorperazine [From Compazine] Allergy (Verified 08/01/20 15:42) Ketorolac Tromethamine [From Toradol] Adverse Reaction (Verified 08/01/20 15:42) Metoclopramide [From Reglan] Adverse Reaction (Verified 08/01/20 15:42) peanut Allergy (Severe, Uncoded 08/01/20 15:42) Home Medications: Ambulatory Orders Mometasone Furoate [Elocon] 0.1 % TOP DAILY PRN 11/07/17 Epinephrine [Epipen 2-Mikael] 0.3 mg IJ ONCE PRN #1 pack 03/26/18 Buspirone HCl 30 mg PO BID 10/23/18 Diazepam 5 mg PO TID 02/21/19 Gabapentin 300 mg PO TID 11/11/19 Hydrocodone-Acetaminophen [[place] 7.5-325 mg] 1 tab PO TID 11/11/19 Vilazodone HCl [Viibryd] 40 mg PO DAILY 11/11/19 tiZANidine [Zanaflex] 12 mg PO Q8H PRN 11/11/19 Ondansetron Odt [Zofran Odt] 8 mg PO Q8H PRN #12 tab 12/25/19 Albuterol Sulfate [Proair Hfa] 2 puff INH Q6H PRN 01/01/20 Azelastine HCl [Azelastine Hydrochloride] 0.1 % INH PRN PRN 01/01/20 Esomeprazole Magnesium [Nexium] 40 mg PO PRN 01/01/20 Glucagon [Baqsimi One Pack] 3 mg NA PRN 01/01/20 Hydroxyzine HCl [Hydroxyzine Hydrochloride] 50 mg PO QID 01/01/20 Insulin Glargine [Lantus Solostar] 10 unit SC BEDTIME 01/01/20 Insulin Glargine [Lantus Solostar] 25 unit SC DAILY 01/01/20 Mometasone Furoate 0.1 % TOP PRN 01/01/20 Naloxone HCl [Narcan] 4 mg NA PRN 01/01/20 Promethazine Tab [Phenergan Tablet] 25 mg PO .Q4H PRN 01/01/20 Salmeterol Xinafoate [Serevent Diskus] 50 mcg IN PRN 01/01/20 Triamcinolone 0.5% Cream [Kenalog 0.5% Cream] 1 applic TOP PRN 01/01/20 Promethazine Supp [Phenergan Suppository] 12.5 mg [place] Q6H PRN #15 sup 02/20/20 Amoxicillin & Pot Clavulanate [Augmentin Tab] 875 mg PO BID 7 Days #14 tab 06/06/20 Ciprofloxacin [Cipro] 500 mg PO BID 10 Days #20 tab 07/14/20 Lactobacillus [Lactobacillus Probiotic] 1 tab PO BID #30 tab 07/14/20 metroNIDAZOLE [Flagyl] 500 mg PO Q8H 10 Days #30 tab 12/10/20 Clonidine HCl 0.1 mg PO TID #21 tab 08/08/20 Review of Systems - Review of Systems Review of Systems: 08/14/20 11:39 as per HPI All other Systems: Reviewed and Negative Past Medical History (General) - Patient Medical History Hx Seizures: No Hx Stroke: No Hx Dementia: No Hx Asthma: Yes Hx of COPD: No Hx Cardiac Disorders: Yes Hx Congestive Heart Failure: No Hx Pacemaker: No Hx Hypertension: No Hx Thyroid Disease: No Hx Diabetes: Yes Hx Gastroesophageal Reflux: Yes Hx Renal Disease: No Hx Cancer: No Hx of HIV: No Hx Hepatitis C: No Hx MRSA: No MRSA Source:: Blood - Vaccination History Hx Tetanus, Diphtheria Vaccination: Yes Hx Influenza Vaccination: Yes Hx Pneumococcal Vaccination: Yes - Social History Hx Tobacco Use: Yes - Half pack a day Hx Chewing Tobacco Use: No Hx Alcohol Use: No Hx Substance Use: Yes Hx Substance Use Treatment: No Hx Depression: Yes Hx Physical Abuse: No Hx Emotional Abuse: No Hx Suspected Abuse: No - Female History Hx Last Menstrual Period: 11/05/11 Patient : No Family Medical History - Family History Mother Family History: No Known Name: April Age (years): 70 Living Status: Still Living Hx Family Asthma: No Hx Family Congestive Heart Failure: No Hx Family Hypertension: No Hx Family Stroke: No Hx Cardiac Disease: No Hx Family Diabetes: No Hx Family Cancer: Yes - skin cancer Hx Family;Other: thyroid problems and seizures Father Family History: No Known Name: Marlon Age (years): 68 Living Status: Still Living Hx Family Asthma: - Sister Hx Family Congestive Heart Failure: No Hx Family Hypertension: Yes Hx Family Stroke: No Hx Cardiac Disease: Yes Hx Family Diabetes: No Age of Onset (years of age): 32 Hx Family Cancer: - Grandmother Lymphoma Physical Exam - Physical Exam General Appearance: Alert, Comfortable, No apparent distress Eye Exam: bilateral normal Ears, Nose, Throat: hearing grossly normal, normal ENT inspection, normal pharyn x Neck: non-tender, full range of motion, supple, normal inspection, other - Torticollis noted Respiratory: chest non-tender, lungs clear, normal breath sounds, no respiratory distress, no accessory muscle use Cardiovascular/Chest: normal peripheral pulses, no edema, no JVD, no murmur, JVD, tachycardia Peripheral Pulses: radial,right: 2+, radial,left: 2+ Gastrointestinal/Abdominal: soft, no organomegaly, other - exam inconsistent, reports severe abd ttp entire right side of abdomen even with minimal palpation, no pain at rest, g-tube left side of abdomen, appears in good position Back Exam: normal inspection, no CVA tenderness, no vertebral tenderness Extremity: normal range of motion, non-tender, normal inspection, no pedal edema, no calf tenderness, normal capillary refill Neurologic: poacher wringer operator II-XII nml as tested, no motor/sensory deficits, alert, normal mood/affect, oriented x 3 Skin Exam: normal color, warm/dry Progress - Progress Progress: 08/14/20 11:41 Chest pain -Appears atypical in nature. Also with her usual chronic symptoms of abdominal pain with nausea and vomiting. Strongly suspicious of drug-seeking behavior. Patient is immediately requesting pain and anxiety meds upon ED arrival. She appears in no pain or distress upon arrival. -Consider also ACS, pneumonia, musculoskeletal chest pain, anxiety, GERD, gastroparesis, gastroenteritis, pancreatitis, diabetic ketoacidosis, other. -Obtain cardiac work-up, blood work -Place PIV, 1 L normal saline bolus, Zofran 4 mg IV 08/14/20 13:55 -Labs reveal initial lactate 2.9, glucose 546, anion gap within normal limits. Patient remained stable. She keeps asking for medications for pain and anxiety. I am strongly concerned for drug-seeking behavior. Discussed we will not do any IV pain medications in the ED. I will give her 1 dose of Ativan 0.5 mg IV. The patient has been given regular insulin 8 units IV and is receiving 2 L of normal saline bolus in the ED. We will continue to monitor her glucose level and repeat the lactic acid level following the fluid boluses. 08/14/20 15:24 -Patient has remained stable. Labs for pain medications or IV Benadryl. Now she states that her G-tube site is hurting. I have inspected the G-tube and their appears to be no acute issues. She has had the G-tube for some time now and should not be causing her chronic pain. I feel this is yet another attempt for IV pain medications. I advised that we will not be doing any narcotics in the ED. She needs to address her chronic pain symptoms with her primary care physician. -Patient's glucose level and lactic acid level have improved with ED treatment. Discharged back home in good condition, return warnings discussed. Nicolas Gross MD Billing #[id number] 08/14/20 11:33 Telemetry .ONCE Sodium Chloride 0.9% (Flush) [Saline Flush Syringe] 10 ml IV PRN PRN URINALYSIS Stat 08/14/20 11:45 EKG STAT 08/15/20 09:00 Pulse Ox Daily Laboratory Results - last 24 hr 08/14/20 08/14/20 08/14/20 11:53 11:53 11:53 WBC 5.7 RBC 4.73 Hgb 10.8 L Hct 35.1 L MCV 74.2 L MCH 22.9 L MCHC 30.9 L RDW 16.8 H Plt Count 351 MPV 7.8 Absolute Neuts (auto) 3.80 Absolute Lymphs (auto) 1.40 Absolute Monos (auto) 0.30 Absolute Eos (auto) 0.10 Absolute Basos (auto) 0.00 Neutrophils % 66.9 Lymphocytes % 24.5 Monocytes % 5.3 Eosinophils % 2.6 Basophils % 0.7 Sodium 135 Potassium 4.6 Chloride 99 L Carbon Dioxide 26 Anion Gap 14.6 BUN 15 Creatinine 0.58 L BUN/Creatinine Ratio 25.9 H POC Glucose Random Glucose 546 H* Serum Osmolality 296.3 H Lactic Acid Calcium 8.7 Total Bilirubin 0.6 AST 21 ALT 18 Alkaline Phosphatase 133 H Troponin I < 0.02 B-Natriuretic Peptide < 15.0 Serum Total Protein 7.0 Albumin 3.6 Globulin 3.4 Albumin/Globulin Ratio 1.1 Lipase 111 H 08/14/20 08/14/20 08/14/20 11:53 12:28 12:35 WBC RBC Hgb Hct MCV MCH MCHC RDW Plt Count MPV Absolute Neuts (auto) Absolute Lymphs (auto) Absolute Monos (auto) Absolute Eos (auto) Absolute Basos (auto) Neutrophils % Lymphocytes % Monocytes % Eosinophils % Basophils % Sodium Potassium Chloride Carbon Dioxide Anion Gap BUN Creatinine BUN/Creatinine Ratio POC Glucose > 400 H* Random Glucose Cancelled Serum Osmolality Lactic Acid 2.9 H* Calcium Total Bilirubin AST ALT Alkaline Phosphatase Troponin I B-Natriuretic Peptide Serum Total Protein Albumin Globulin Albumin/Globulin Ratio Lipase 08/14/20 08/14/20 14:34 14:34 WBC RBC Hgb Hct MCV MCH MCHC RDW Plt Count MPV Absolute Neuts (auto) Absolute Lymphs (auto) Absolute Monos (auto) Absolute Eos (auto) Absolute Basos (auto) Neutrophils % Lymphocytes % Monocytes % Eosinophils % Basophils % Sodium Potassium Chloride Carbon Dioxide Anion Gap BUN Creatinine BUN/Creatinine Ratio POC Glucose 287 H Random Glucose Serum Osmolality Lactic Acid 1.6 Calcium Total Bilirubin AST ALT Alkaline Phosphatase Troponin I B-Natriuretic Peptide Serum Total Protein Albumin Globulin Albumin/Globulin Ratio Lipase - EKG/XRAY/CT EKG: Sinus - Normal sinus rhythm, heart rate 95, no ST elevations, Q waves noted in anteroseptal leads likely indicative of prior [place], axis normal, intervals normal, appears largely unchanged from 07/15/2020 EKG XRAY: chest - No acute processes per my read Departure - Departure Clinical Impression: Hyperglycemia due to type 1 diabetes mellitus, Dehydration, mild, Nausea and vomiting in adult, Drug-seeking behavior Time of Disposition: 15:26 Disposition: Discharge to Home or Self Care Condition: Good Departure Forms: ED Discharge - Pt. Copy, Patient Portal Self Enrollment Instructions: Nausea and Vomiting, Adult (DC) Diet: diabetic diet Activity: increase activity as tolerated Referrals: JUSTINO MARQUEZ IV, MUSIC PASTOR [Primary Care Provider] - 1-2 Weeks Home Medications: Ambulatory Orders Mometasone Furoate [Elocon] 0.1 % TOP DAILY PRN 11/07/17 Epinephrine [Epipen 2-Mikael] 0.3 mg IJ ONCE PRN #1 pack 03/26/18 Buspirone HCl 30 mg PO BID 10/23/18 Diazepam 5 mg PO TID 02/21/19 Gabapentin 300 mg PO TID 11/11/19 Hydrocodone-Acetaminophen [[place] 7.5-325 mg] 1 tab PO TID 11/11/19 Vilazodone HCl [Viibryd] 40 mg PO DAILY 11/11/19 tiZANidine [Zanaflex] 12 mg PO Q8H PRN 11/11/19 Ondansetron Odt [Zofran Odt] 8 mg PO Q8H PRN #12 tab 12/25/19 Albuterol Sulfate [Proair Hfa] 2 puff INH Q6H PRN 01/01/20 Azelastine HCl [Azelastine Hydrochloride] 0.1 % INH PRN PRN 01/01/20 Esomeprazole Magnesium [Nexium] 40 mg PO PRN 01/01/20 Glucagon [Baqsimi One Pack] 3 mg NA PRN 01/01/20 Hydroxyzine HCl [Hydroxyzine Hydrochloride] 50 mg PO QID 01/01/20 Insulin Glargine [Lantus Solostar] 10 unit SC BEDTIME 01/01/20 Insulin Glargine [Lantus Solostar] 25 unit SC DAILY 01/01/20 Mometasone Furoate 0.1 % TOP PRN 01/01/20 Naloxone HCl [Narcan] 4 mg NA PRN 01/01/20 Promethazine Tab [Phenergan Tablet] 25 mg PO .Q4H PRN 01/01/20 Salmeterol Xinafoate [Serevent Diskus] 50 mcg IN PRN 01/01/20 Triamcinolone 0.5% Cream [Kenalog 0.5% Cream] 1 applic TOP PRN 01/01/20 Promethazine Supp [Phenergan Suppository] 12.5 mg [place] Q6H PRN #15 sup 02/20/20 Amoxicillin & Pot Clavulanate [Augmentin Tab] 875 mg PO BID 7 Days #14 tab 06/06/20 Ciprofloxacin [Cipro] 500 mg PO BID 10 Days #20 tab 07/14/20 Lactobacillus [Lactobacillus Probiotic] 1 tab PO BID #30 tab 07/14/20 metroNIDAZOLE [Flagyl] 500 mg PO Q8H 10 Days #30 tab 07/14/20 Clonidine HCl 0.1 mg PO TID #21 tab 08/08/20 Additional Instructions: Remain well-hydrated and gradually advance her diet and activity level as tolerated. You may continue take [id number] medications as needed for pain such as Tylenol and ibuprofen. You will need to follow-up with your regular doctor for chronic pain management and abdominal symptoms.
[2020-08-14] MEDS: SODIUM CHLORIDE 0.9% (FLUSH) 10 ML SYG IV PRN ×2 (11:59→12:00)
--- NOTE | 2020-08-14 12:24 | RAD ---
EXAM: Chest,1 View CLINICAL INDICATION: Chest pain COMPARISON: 08/09/2020 FINDINGS: A single view of the chest was obtained. The heart size is normal. There is a right IJ port with its tip in the SVC. The pulmonary vascularity is unremarkable. The lungs are clear. There is no consolidation, infiltrate, pleural effusion, or pneumothorax. IMPRESSION: No evidence of active pulmonary disease. Electronically signed by: Hakeem Colon MD 08/14/2020 12:22 PM [employer]OR
[2020-08-14] MEDS ORDERED: INSULIN, REG.(HUMAN) 100 U/ML VIAL IV ONE (12:28)
[2020-08-14] MEDS ORDERED: HEPARIN SODIUM 100 U/ML 5 ML SYG IV ONE (15:29)
[2020-08-14 15:35] VITALS: BP 134/89; TEMP 98.2; O2SAT 95
== END 2020-08-14 15:30 | disposition home or self-care (01) ==
LOC: ER 11:19
DX: E10.65 Type 1 diabetes mellitus with hyperglycemia (principal); E86.0 Dehydration; R11.2 Nausea with vomiting, unspecified; R07.9 Chest pain, unspecified; G89.29 Other chronic pain; F32.9 Major depressive disorder, single episode, unspecified; K21.9 Gastro-esophageal reflux disease without esophagitis; I51.9 Heart disease, unspecified; Z76.5 Malingerer [conscious simulation]; Z93.1 Gastrostomy status; Z87.891 Personal history of nicotine dependence; J45.909 Unspecified asthma, uncomplicated; Z79.899 Other long term (current) drug therapy; Z79.4 Long term (current) use of insulin; Z88.8 Allergy status to other drugs, medicaments and biological substances; Z88.6 Allergy status to analgesic agent; Z91.013 Allergy to seafood; Z79.891 Long term (current) use of opiate analgesic
CPT/HCPCS: 36415; 36416; 71045; 80053; 82948; 83605; 83690; 83880; 84484; 85025; 93005; 94760; J1642; J2060; J2405; J7030

== ENCOUNTER 2020-08-20 16:39 | Emergency (ER) | payer MEDICARE, MEDICAID ==
--- NOTE | 2020-08-20 16:58 | ED.PDOC ---
History of Present Illness - General Chief Complaint: Trauma Stated Complaint: fall, elevated glucose Time Seen by Provider: 08/20/20 16:42 Source: patient, RN notes reviewed, Vital Signs reviewed, EMS notes reviewed Exam Limitations: no limitations - History of Present Illness Initial Comments: Pt is a 44 yo female well known to this ED with PMH of poorly controlled DM, gastroparesis and opiod dependence who presents to ED for elevated glucose and fall. States her blood sugars have been high all day. States 1 hr [employer], she stood up and felt lightheaded and fell hitting the corner of the couch with her chin. Denies LOC, vomiting, neck pain or back pain. reports pain to chin and left abdomen. Denies other injuries at this time. Denies fever, chills, CP, SOOB. Reports chronic abdominal pain, NVD that she takes hydrocodone and zofran at home. Pt well known to this ED. This is 4th visit in past 2 weeks. Allergies/Adverse Reactions: Allergies Fish Allergy Allergy (Verified 08/01/20 15:42) Haloperidol [From Haldol] Allergy (Verified 08/01/20 15:42) NSAIDs Allergy (Verified 08/01/20 15:42) Prochlorperazine [From Compazine] Allergy (Verified 08/01/20 15:42) Ketorolac Tromethamine [From Toradol] Adverse Reaction (Verified 08/01/20 15:42) Metoclopramide [From Reglan] Adverse Reaction (Verified 08/01/20 15:42) peanut Allergy (Severe, Uncoded 08/01/20 15:42) Home Medications: Ambulatory Orders Mometasone Furoate [Elocon] 0.1 % TOP DAILY PRN 11/07/17 Epinephrine (Anaphylaxis) [Epipen 2-Mikael] 0.3 mg IJ ONCE PRN #1 pack 03/26/18 Buspirone HCl 30 mg PO BID 10/23/18 Diazepam 5 mg PO TID 02/21/19 Gabapentin 300 mg PO TID 11/11/19 Hydrocodone-Acetaminophen [[place] 7.5-325 mg] 1 tab PO TID 11/11/19 Vilazodone HCl [Viibryd] 40 mg PO DAILY 11/11/19 tiZANidine [Zanaflex] 12 mg PO Q8H PRN 04/08/20 Ondansetron Odt [Zofran Odt] 8 mg PO Q8H PRN #12 tab 12/25/19 Albuterol Sulfate [Proair Hfa] 2 puff INH Q6H PRN 01/01/20 Azelastine HCl [Azelastine Hydrochloride] 0.1 % INH PRN PRN 01/01/20 Esomeprazole Magnesium [Nexium] 40 mg PO PRN 01/01/20 Glucagon [Baqsimi One Pack] 3 mg NA PRN 01/01/20 Hydroxyzine HCl [Hydroxyzine Hydrochloride] 50 mg PO QID 01/01/20 Insulin Glargine [Lantus Solostar] 10 unit SC BEDTIME 01/01/20 Insulin Glargine [Lantus Solostar] 25 unit SC DAILY 01/01/20 Mometasone Furoate 0.1 % TOP PRN 01/01/20 Naloxone HCl [Narcan] 4 mg NA PRN 01/01/20 Promethazine Tab [Phenergan Tablet] 25 mg PO .Q4H PRN 01/01/20 Salmeterol Xinafoate [Serevent Diskus] 50 mcg IN PRN 01/01/20 Triamcinolone 0.5% Cream [Kenalog 0.5% Cream] 1 applic TOP PRN 01/01/20 Promethazine Supp [Phenergan Suppository] 12.5 mg [place] Q6H PRN #15 sup 02/20/20 Amoxicillin & Pot Clavulanate [Augmentin Tab] 875 mg PO BID 7 Days #14 tab 06/06/20 Ciprofloxacin [Cipro] 500 mg PO BID 10 Days #20 tab 07/14/20 Lactobacillus [Lactobacillus Probiotic] 1 tab PO BID #30 tab 07/14/20 metroNIDAZOLE [Flagyl] 500 mg PO Q8H 10 Days #30 tab 07/14/20 Clonidine HCl [Clonidine Hydrochloride] 0.1 mg PO TID #21 tab 08/08/20 Review of Systems - Review of Systems Constitutional: Denies: chills, fever EENTM: Denies: eye pain, blurred vision, throat pain Respiratory: Denies: cough, short of breath Cardiology: Denies: chest pain, edema, palpitations, syncope Gastrointestinal/Abdominal: States: abdominal pain Musculoskeletal: Denies: back pain, neck pain Skin: Denies: rash All other Systems: Reviewed and Negative Past Medical History (General) - Patient Medical History Hx Seizures: No Hx Stroke: No Hx Dementia: No Hx Asthma: Yes Hx of COPD: No Hx Cardiac Disorders: Yes Hx Congestive Heart Failure: No Hx Pacemaker: No Hx Hypertension: No Hx Thyroid Disease: No Hx Diabetes: Yes Hx Gastroesophageal Reflux: Yes Hx Renal Disease: No Hx Cancer: No Hx of HIV: No Hx Hepatitis C: No Hx MRSA: No MRSA Source:: Blood - Vaccination History Hx Tetanus, Diphtheria Vaccination: Yes Hx Influenza Vaccination: Yes Hx Pneumococcal Vaccination: Yes - Social History Hx Tobacco Use: Yes - Half pack a day Hx Chewing Tobacco Use: No Hx Alcohol Use: No Hx Substance Use: Yes Hx Substance Use Treatment: No Hx Depression: Yes Hx Physical Abuse: No Hx Emotional Abuse: No Hx Suspected Abuse: No - Female History Hx Last Menstrual Period: 11/05/11 Patient : No Family Medical History - Family History Mother Family History: No Known Name: April Age (years): 70 Living Status: Still Living Hx Family Asthma: No Hx Family Congestive Heart Failure: No Hx Family Hypertension: No Hx Family Stroke: No Hx Cardiac Disease: No Hx Family Diabetes: No Hx Family Cancer: Yes - skin cancer Hx Family;Other: thyroid problems and seizures Father Family History: No Known Name: Marlon Age (years): 68 Living Status: Still Living Hx Family Asthma: - Sister Hx Family Congestive Heart Failure: No Hx Family Hypertension: Yes Hx Family Stroke: No Hx Cardiac Disease: Yes Hx Family Diabetes: No Age of Onset (years of age): 32 Hx Family Cancer: - Grandmother Lymphoma Physical Exam - Physical Exam General Appearance: Alert, Comfortable, No apparent distress Neck: non-tender, full range of motion, supple, other - No vertebral tenderness to neck or back Respiratory: chest non-tender, lungs clear, normal breath sounds, no respiratory distress Cardiovascular/Chest: no edema, no murmur, tachycardia Gastrointestinal/Abdominal: soft, other - Feeding tube in place. Mild TTP LUQ Back Exam: normal inspection, no vertebral tenderness Extremity: normal range of motion, non-tender, normal inspection, no pedal edema Neurologic: alert, normal mood/affect Skin Exam: normal color, warm/dry Progress - Progress Progress: 08/20/20 17:48 Pt BG in 500's. Will give 2L IVF bolus and 8 units IV insulin and recheck. 08/20/20 21:09 Pt recheck. She is asking for nrcotic pain medication several times this visit. i have d/w her that due to her history of narcotic abuse I do not feel treating her chronic pain with narcotics is in her best interest and have teated with non narcotic therapy. Records show that she has had multiple extensive workups in the past with no cause found. Likely due to poorly controlled DM and gastroparesis. She is noncompliant with therapies. After IVF and insulin, BG and AG are improved. Will treat with additional IVF and insulin and observe in ED. Pt not a candidate for admission at this facility. Will continue to monitor. 08/20/20 23:01 After observation in ED and treatment with IVF and insulin A Gap has closed, and BG improved. I think pt presented in mild DKA which was treated in ED and resolved. I have d/w hospitalist earlier this ED visit. I have reviewed her many previous visits to this ED. Pt feels improved post IVF and is tolerating po fluids well. I have discuss the need to take her medications as directed and needs to take care of her health. I have recommended that she f/u with her PCP in 1-2 days for continued outpatient evaluation. - Results/Orders Results/Orders: EKG- Sinus tachycardia, rate 116, nml intervals, nonspecific ST abnormality CT BRAIN EXAM: CT head CLINICAL INDICATION: Patient fell COMPARISON: 01/30/2019 TECHNIQUE: CT scan was done using contiguous axial 5 mm sections through the brain. This exam was performed according to our departmental dose-optimization program, which includes automated exposure control, adjustment of the mA and/or kV according to patient size and/or use of iterative reconstruction technique. FINDINGS: There is no midline shift, mass effect, or extraaxial fluid collection. There is no evidence of acute intracranial hemorrhage, mass lesion, or cerebral edema. The ventricles and cortical sulci are normal for the patient's age. Bone window images reveal no evidence of a skull fracture. IMPRESSION: No evidence of an acute intracranial process. CT FACIAL BONES EXAM: CT maxillofacial CLINICAL INDICATION: Trauma, pain COMPARISON: There is no previous study for comparison. TECHNIQUE: The CT scan was done using contiguous axial 3 mm sections through the facial bones with coronal and sagittal reconstructions. This exam was performed according to our departmental dose-optimization program, which includes automated exposure control, adjustment of the mA and/or kV according to patient size and/or use of iterative reconstruction technique. FINDINGS: The patient was unable to remain still and the study is limited by motion artifact. There is no fracture. The visualized paranasal sinuses are clear. The globes, extraocular muscles, and optic nerves are intact, symmetric, and unremarkable. The visualized osseous structures appear unremarkable. IMPRESSION: Limited, grossly negative facial CT scan. AAS EXAM: Abdomen Series CLINICAL INDICATION: Patient fell, trauma COMPARISON: There is no previous study for comparison. FINDINGS: A single view of the chest reveals the heart size is normal. The pulmonary vessels are unremarkable. The lungs are clear. There is no evidence of free air under the hemidiaphragms. There is a right IJ port with its tip in the SVC. The visualized osseous structures are unremarkable. 2views of the abdomen were obtained. There is a nonspecific bowel gas pattern with no radiographic evidence of bowel obstruction. There are no dilated loops of small bowel. A tube or catheter is noted projected over the left side of the abdomen. There is no evidence of pneumoperitoneum or pathologic calcifications. IMPRESSION: No evidence of an acute intraabdominal process. 08/20/20 16:51 IV Care:Saline Lock per Protoc QSHIFT Telemetry .ONCE Sodium Chloride 0.9% (Flush) [Saline Flush Syringe] 10 ml IV PRN PRN EKG Stat 08/20/20 16:52 Pulse Oximetry Assessment DAILY 08/21/20 09:00 Pulse Ox Daily Laboratory Results - last 24 hr 08/20/20 08/20/20 08/20/20 17:16 17:16 17:16 WBC 6.7 RBC 4.96 Hgb 11.6 L Hct 37.7 MCV 76.1 L MCH 23.3 L MCHC 30.6 L RDW 16.5 H Plt Count 343 MPV 8.3 Absolute Neuts (auto) 5.10 Absolute Lymphs (auto) 1.20 Absolute Monos (auto) 0.30 Absolute Eos (auto) 0.00 Absolute Basos (auto) 0.00 Neutrophils % 75.5 Lymphocytes % 18.2 L Monocytes % 5.2 Eosinophils % 0.7 L Basophils % 0.4 PT 9.4 INR < 1.00 PTT (SP) 21.5 L Sodium 132 L Potassium 4.7 Chloride 96 L Carbon Dioxide 15 L Anion Gap 25.7 H BUN 27 H Creatinine 1.11 BUN/Creatinine Ratio 24.3 H Random Glucose 519 H* Serum Osmolality 293.1 Calcium 9.7 Total Bilirubin 1.4 H AST 53 H ALT 107 H Alkaline Phosphatase 211 H Creatine Kinase 37 CK-MB (CK-2) 1.3 CK-MB (CK-2) % Not Reportable Troponin I < 0.02 Serum Total Protein 7.9 Albumin 3.8 Globulin 4.1 H Albumin/Globulin Ratio 0.9 L Urine Color Urine Appearance Urine pH Ur Specific Ten[place] Urine Protein Urine Glucose (UA) Urine Ketones Urine Blood Urine Nitrite Urine Bilirubin Urine Urobilinogen Ur Leukocyte Esterase Urine RBC Urine WBC Ur Epithelial Cells Urine Bacteria Ethyl Alcohol 08/20/20 08/20/20 08/20/20 17:16 20:30 22:00 WBC RBC Hgb Hct MCV MCH MCHC RDW Plt Count MPV Absolute Neuts (auto) Absolute Lymphs (auto) Absolute Monos (auto) Absolute Eos (auto) Absolute Basos (auto) Neutrophils % Lymphocytes % Monocytes % Eosinophils % Basophils % PT INR PTT (SP) Sodium 132 L Potassium 4.4 Chloride 102 Carbon Dioxide 15 L Anion Gap 19.4 H BUN 23 H Creatinine 0.79 BUN/Creatinine Ratio 29.1 H Random Glucose 410 H* Serum Osmolality 285.8 Calcium 8.4 Total Bilirubin AST ALT Alkaline Phosphatase Creatine Kinase CK-MB (CK-2) CK-MB (CK-2) % Troponin I Serum Total Protein Albumin Globulin Albumin/Globulin Ratio Urine Color Yellow Urine Appearance Clear Urine pH 5.0 Ur Specific [place] 1.020 Urine Protein Negative Urine Glucose (UA) 500 H Urine Ketones >=160 Urine Blood Trace-lysed H Urine Nitrite Negative Urine Bilirubin Small H Urine Urobilinogen 0.2 Ur Leukocyte Esterase Negative Urine RBC 0-1 Urine WBC 0 Ur Epithelial Cells 5-10 Urine Bacteria 0 Ethyl Alcohol < 5.10 08/20/20 22:32 WBC RBC Hgb Hct MCV MCH MCHC RDW Plt Count MPV Absolute Neuts (auto) Absolute Lymphs (auto) Absolute Monos (auto) Absolute Eos (auto) Absolute Basos (auto) Neutrophils % Lymphocytes % Monocytes % Eosinophils % Basophils % PT INR PTT (SP) Sodium 133 L Potassium 4.0 Chloride 105 Carbon Dioxide 15 L Anion Gap 17.0 BUN 22 H Creatinine 0.85 BUN/Creatinine Ratio 25.9 H Random Glucose 359 H Serum Osmolality 284.2 Calcium 7.9 L Total Bilirubin AST ALT Alkaline Phosphatase Creatine Kinase CK-MB (CK-2) CK-MB (CK-2) % Troponin I Serum Total Protein Albumin Globulin Albumin/Globulin Ratio Urine Color Urine Appearance Urine pH Ur Specific Ten[place] Urine Protein Urine Glucose (UA) Urine Ketones Urine Blood Urine Nitrite Urine Bilirubin Urine Urobilinogen Ur Leukocyte Esterase Urine RBC Urine WBC Ur Epithelial Cells Urine Bacteria Ethyl Alcohol Departure - Departure Clinical Impression: Hyperglycemia due to type 1 diabetes mellitus, Abdominal pain, left upper quadrant, Sinus tachycardia, Diabetic gastroparesis associated with type 1 diabetes mellitus, Fall from ground level Closed head injury Qualifiers: Encounter type: initial encounter Qualified Code(s): S09.90XA - Unspecified injury of head, initial encounter Facial contusion Qualifiers: Encounter type: initial encounter Qualified Code(s): S00.83XA - Contusion of other part of head, initial encounter Time of Disposition: 23:00 Disposition: Discharge to Home or Self Care Condition: Fair Departure Forms: ED Discharge - Pt. Copy, Patient Portal Self Enrollment Instructions: DI for Trauma, Diabetes Type 1, Adult (DC) Diet: diabetic diet Activity: increase activity as tolerated Referrals: JUSTINO MARQUEZ IV, MILL OPERATOR [Primary Care Provider] - 1-2 Days Home Medications: Ambulatory Orders Mometasone Furoate [Elocon] 0.1 % TOP DAILY PRN 11/07/17 Epinephrine (Anaphylaxis) [Epipen 2-Mikael] 0.3 mg IJ ONCE PRN #1 pack 03/26/18 Buspirone HCl 30 mg PO BID 10/23/18 Diazepam 5 mg PO TID 02/21/19 Gabapentin 300 mg PO TID 11/11/19 Hydrocodone-Acetaminophen [[place] 7.5-325 mg] 1 tab PO TID 11/11/19 Vilazodone HCl [Viibryd] 40 mg PO DAILY 11/11/19 tiZANidine [Zanaflex] 12 mg PO Q8H PRN 11/11/19 Ondansetron Odt [Zofran Odt] 8 mg PO Q8H PRN #12 tab 12/25/19 Albuterol Sulfate [Proair Hfa] 2 puff INH Q6H PRN 01/01/20 Azelastine HCl [Azelastine Hydrochloride] 0.1 % INH PRN PRN 01/01/20 Esomeprazole Magnesium [Nexium] 40 mg PO PRN 01/01/20 Glucagon [Baqsimi One Pack] 3 mg NA PRN 01/01/20 Hydroxyzine HCl [Hydroxyzine Hydrochloride] 50 mg PO QID 01/01/20 Insulin Glargine [Lantus Solostar] 10 unit SC BEDTIME 01/01/20 Insulin Glargine [Lantus Solostar] 25 unit SC DAILY 01/01/20 Mometasone Furoate 0.1 % TOP PRN 01/01/20 Naloxone HCl [Narcan] 4 mg NA PRN 01/01/20 Promethazine Tab [Phenergan Tablet] 25 mg PO .Q4H PRN 01/01/20 Salmeterol Xinafoate [Serevent Diskus] 50 mcg IN PRN 01/01/20 Triamcinolone 0.5% Cream [Kenalog 0.5% Cream] 1 applic TOP PRN 01/01/20 Promethazine Supp [Phenergan Suppository] 12.5 mg IL Q6H PRN #15 sup 02/20/20 Amoxicillin & Pot Clavulanate [Augmentin Tab] 875 mg PO BID 7 Days #14 tab 06/06/20 Ciprofloxacin [Cipro] 500 mg PO BID 10 Days #20 tab 07/14/20 Lactobacillus [Lactobacillus Probiotic] 1 tab PO BID #30 tab 07/14/20 metroNIDAZOLE [Flagyl] 500 mg PO Q8H 10 Days #30 tab 07/14/20 Clonidine HCl [Clonidine Hydrochloride] 0.1 mg PO TID #21 tab 08/08/20
[2020-08-20] MEDS: SODIUM CHLORIDE 0.9% 1000ML 1,000 ML IVS ONE ×3 (17:05→21:10)
[2020-08-20] MEDS: KETOROLAC TROMETHAMINE INJ 30 MG/ML VIAL IV ONE (17:05)
[2020-08-20] MEDS: ONDANSETRON INJ 4 MG/2 ML VIAL IV ONE ×2 (17:06→21:57)
[2020-08-20] MEDS ORDERED: ALUMINUM & MAGNESIUM HYDROXIDE 30 ML UD ONE (17:16)
--- NOTE | 2020-08-20 17:46 | CT ---
EXAM: CT head CLINICAL INDICATION: Patient fell COMPARISON: 01/30/2019 TECHNIQUE: CT scan was done using contiguous axial 5 mm sections through the brain. This exam was performed according to our departmental dose-optimization program, which includes automated exposure control, adjustment of the mA and/or kV according to patient size and/or use of iterative reconstruction technique. FINDINGS: There is no midline shift, mass effect, or extraaxial fluid collection. There is no evidence of acute intracranial hemorrhage, mass lesion, or cerebral edema. The ventricles and cortical sulci are normal for the patient's age. Bone window images reveal no evidence of a skull fracture. IMPRESSION: No evidence of an acute intracranial process. Electronically signed by: Hakeem Colon MD 08/20/2020 5:44 PM TRAVEL AGENT
--- NOTE | 2020-08-20 17:47 | RAD ---
EXAM: Abdomen Series CLINICAL INDICATION: Patient fell, trauma COMPARISON: There is no previous study for comparison. FINDINGS: A single view of the chest reveals the heart size is normal. The pulmonary vessels are unremarkable. The lungs are clear. There is no evidence of free air under the hemidiaphragms. There is a right IJ port with its tip in the SVC. The visualized osseous structures are unremarkable. 2views of the abdomen were obtained. There is a nonspecific bowel gas pattern with no radiographic evidence of bowel obstruction. There are no dilated loops of small bowel. A tube or catheter is noted projected over the left side of the abdomen. There is no evidence of pneumoperitoneum or pathologic calcifications. IMPRESSION: No evidence of an acute intraabdominal process. Electronically signed by: Hakeem Colon MD 08/20/2020 5:46 PM [employer]
--- NOTE | 2020-08-20 17:47 | CT ---
EXAM: CT maxillofacial CLINICAL INDICATION: Trauma, pain COMPARISON: There is no previous study for comparison. TECHNIQUE: The CT scan was done using contiguous axial 3 mm sections through the facial bones with coronal and sagittal reconstructions. This exam was performed according to our departmental dose-optimization program, which includes automated exposure control, adjustment of the mA and/or kV according to patient size and/or use of iterative reconstruction technique. FINDINGS: The patient was unable to remain still and the study is limited by motion artifact. There is no fracture. The visualized paranasal sinuses are clear. The globes, extraocular muscles, and optic nerves are intact, symmetric, and unremarkable. The visualized osseous structures appear unremarkable. IMPRESSION: Limited, grossly negative facial CT scan. Electronically signed by: Hakeem Colon MD 08/20/2020 5:45 PM [facility]
[2020-08-20] MEDS: SODIUM CHLORIDE 0.9% (FLUSH) 10 ML SYG IV PRN (17:56)
[2020-08-20] MEDS: ALUMINUM & MAGNESIUM HYDROXIDE 30 ML UD PO ONE (17:56)
[2020-08-20] MEDS: INSULIN, REG.(HUMAN) 100 U/ML VIAL IV ONE (17:59)
[2020-08-20] MEDS: ALUM & MAG HYDROX-SIMETHICONE 30 ML, LIDOCAINE VISCOUS 2% 15 ML PO ONE ×2 (18:45)
[2020-08-20] MEDS ORDERED: PANTOPRAZOLE SODIUM IV 40 MG VIAL ONE (20:54)
[2020-08-20] MEDS: PANTOPRAZOLE SODIUM IV 40 MG VIAL IV ONE (21:07)
[2020-08-20] MEDS: INSULIN, REG.(HUMAN) 100 U/ML VIAL SUBCU ONE (21:09)
[2020-08-20 22:19] VITALS: O2SAT 100
[2020-08-20 23:09] VITALS: BP 100/60; TEMP 98.6
== END 2020-08-20 23:09 | disposition home or self-care (01) ==
LOC: ER 16:39
DX: S09.90XA Unspecified injury of head, initial encounter (principal); S00.83XA Contusion of other part of head, initial encounter; E10.65 Type 1 diabetes mellitus with hyperglycemia; E10.43 Type 1 diabetes mellitus with diabetic autonomic (poly)neuropathy; K31.84 Gastroparesis; R00.0 Tachycardia, unspecified; F11.20 Opioid dependence, uncomplicated; F32.9 Major depressive disorder, single episode, unspecified; I51.9 Heart disease, unspecified; K21.9 Gastro-esophageal reflux disease without esophagitis; J45.909 Unspecified asthma, uncomplicated; W01.190A Fall on same level from slipping, tripping and stumbling with subsequent striking against furniture, initial encounter; Y92.9 Unspecified place or not applicable; Z79.4 Long term (current) use of insulin; Z79.899 Other long term (current) drug therapy; Z88.8 Allergy status to other drugs, medicaments and biological substances; Z91.013 Allergy to seafood; Z88.6 Allergy status to analgesic agent; Z87.891 Personal history of nicotine dependence
CPT/HCPCS: 36415; 70450; 70486; 74019; 80048; 80053; 80320; 81001; 82550; 82553; 84484; 85025; 85610; 85730; 93005; A4216; J1885; J2405; J7030

== ENCOUNTER 2020-08-22 05:01 | Emergency (ER) | payer MEDICARE, MEDICAID ==
[2020-08-22 05:17] VITALS: TEMP 97.9
[2020-08-22] MEDS ORDERED: HYDROcodone 7.5MG/APAP 325MG 1 EA TAB PO ONE (05:26)
[2020-08-22] MEDS ORDERED: ZOLPIDEM TARTRATE 5 MG TAB PO ONE (05:29)
--- NOTE | 2020-08-22 05:34 | ED.PDOC ---
History of Present Illness - General Chief Complaint: Abdominal Pain Stated Complaint: distended abdomen, clogged G-tube, N/V/D, backpain Time Seen by Provider: 08/22/20 05:09 Source: patient Exam Limitations: no limitations - History of Present Illness Initial Comments: The patient is a 44-year-old female presented emergency room secondary to left lower rib cage and upper abdominal discomfort since a fall yesterday. She was actually seen here in the emergency room and evaluated for that. She reports that her pain is uncontrolled because her pain medications have been stolen. She is apparently due for a pain medication appointment today for refills. She reports that she has been unable to sleep all night secondary to the pain. The patient is a long-term opiate user. She has also used Ambien off and on for many years. She is treated here yesterday for DKA. She reports that her blood sugars were in the low 200s prior to coming up here. Patient is reporting that her J-tube was not flowing. Timing/Duration: 24 hours Severity: moderate Improving Factors: immobilization Worsening Factors: movement Associated Symptoms: other Allergies/Adverse Reactions: Allergies Fish Allergy Allergy (Verified 08/01/20 15:42) Haloperidol [From Haldol] Allergy (Verified 08/01/20 15:42) NSAIDs Allergy (Verified 08/01/20 15:42) Prochlorperazine [From Compazine] Allergy (Verified 08/01/20 15:42) Ketorolac Tromethamine [From Toradol] Adverse Reaction (Verified 08/01/20 15:42) Metoclopramide [From Reglan] Adverse Reaction (Verified 08/01/20 15:42) peanut Allergy (Severe, Uncoded 08/01/20 15:42) Home Medications: Ambulatory Orders Mometasone Furoate [Elocon] 0.1 % TOP DAILY PRN 11/07/17 Epinephrine (Anaphylaxis) [Epipen 2-Mikael] 0.3 mg IJ ONCE PRN #1 pack 03/26/18 Buspirone HCl 30 mg PO BID 10/23/18 Diazepam 5 mg PO TID 02/21/19 Gabapentin 300 mg PO TID 11/11/19 Hydrocodone-Acetaminophen [[place] 7.5-325 mg] 1 tab PO TID 11/11/19 Vilazodone HCl [Viibryd] 40 mg PO DAILY 11/11/19 tiZANidine [Zanaflex] 12 mg PO Q8H PRN 11/11/19 Ondansetron Odt [Zofran Odt] 8 mg PO Q8H PRN #12 tab 12/25/19 Albuterol Sulfate [Proair Hfa] 2 puff INH Q6H PRN 01/01/20 Azelastine HCl [Azelastine Hydrochloride] 0.1 % INH PRN PRN 01/01/20 Esomeprazole Magnesium [Nexium] 40 mg PO PRN 01/01/20 Glucagon [Baqsimi One Pack] 3 mg NA PRN 01/01/20 Hydroxyzine HCl [Hydroxyzine Hydrochloride] 50 mg PO QID 01/01/20 Insulin Glargine [Lantus Solostar] 10 unit SC BEDTIME 01/01/20 Insulin Glargine [Lantus Solostar] 25 unit SC DAILY 01/01/20 Mometasone Furoate 0.1 % TOP PRN 01/01/20 Naloxone HCl [Narcan] 4 mg NA PRN 01/01/20 Promethazine Tab [Phenergan Tablet] 25 mg PO .Q4H PRN 01/01/20 Salmeterol Xinafoate [Serevent Diskus] 50 mcg IN PRN 01/01/20 Triamcinolone 0.5% Cream [Kenalog 0.5% Cream] 1 applic TOP PRN 01/01/20 Promethazine Supp [Phenergan Suppository] 12.5 mg [place] Q6H PRN #15 sup 02/20/20 Amoxicillin & Pot Clavulanate [Augmentin Tab] 875 mg PO BID 7 Days #14 tab 06/06/20 Ciprofloxacin [Cipro] 500 mg PO BID 10 Days #20 tab 07/14/20 Lactobacillus [Lactobacillus Probiotic] 1 tab PO BID #30 tab 07/14/20 metroNIDAZOLE [Flagyl] 500 mg PO Q8H 10 Days #30 tab 07/14/20 Clonidine HCl [Clonidine Hydrochloride] 0.1 mg PO TID #21 tab 08/08/20 Review of Systems - Review of Systems Constitutional: States: no symptoms reported EENTM: States: no symptoms reported Respiratory: States: no symptoms reported Cardiology: States: no symptoms reported Gastrointestinal/Abdominal: States: abdominal pain Genitourinary: States: no symptoms reported Musculoskeletal: States: see HPI Skin: States: no symptoms reported Neurological: States: no symptoms reported Endocrine: States: no symptoms reported All other Systems: No Change from Baseline Past Medical History (General) - Patient Medical History Hx Seizures: No Hx Stroke: No Hx Dementia: No Hx Asthma: Yes Hx of COPD: No Hx Cardiac Disorders: Yes - tachycardia Hx Congestive Heart Failure: No Hx Pacemaker: No Hx Hypertension: No Hx Thyroid Disease: No Hx Diabetes: Yes Hx Gastroesophageal Reflux: Yes Hx Renal Disease: No Hx Cancer: No Hx of HIV: No Hx Hepatitis C: No Hx MRSA: No MRSA Source:: Blood Surgical History: appendectomy, cholecystectomy, Hysterectomy - Vaccination History Hx Tetanus, Diphtheria Vaccination: Yes Hx Influenza Vaccination: Yes Hx Pneumococcal Vaccination: Yes - Social History Hx Tobacco Use: Yes - Half pack a day Hx Chewing Tobacco Use: No Hx Alcohol Use: No Hx Substance Use: Yes Hx Substance Use Treatment: No Hx Depression: Yes Hx Physical Abuse: No Hx Emotional Abuse: No Hx Suspected Abuse: No - Female History Hx Last Menstrual Period: 11/05/11 Patient : No Family Medical History - Family History Mother Family History: No Known Name: April Age (years): 70 Living Status: Still Living Hx Family Asthma: No Hx Family Congestive Heart Failure: No Hx Family Hypertension: No Hx Family Stroke: No Hx Cardiac Disease: No Hx Family Diabetes: No Hx Family Cancer: Yes - skin cancer Hx Family;Other: thyroid problems and seizures Father Family History: No Known Name: Marlon Age (years): 68 Living Status: Still Living Hx Family Asthma: - Sister Hx Family Congestive Heart Failure: No Hx Family Hypertension: Yes Hx Family Stroke: No Hx Cardiac Disease: Yes Hx Family Diabetes: No Age of Onset (years of age): 32 Hx Family Cancer: - Grandmother Lymphoma Physical Exam - Physical Exam General Appearance: Alert, Anxious Eye Exam: bilateral normal Ears, Nose, Throat: hearing grossly normal, normal pharynx Neck: other - Torticollis with gaze to the left Respiratory: lungs clear, normal breath sounds, no respiratory distress, no accessory muscle use, other - Left lower anterolateral rib yeast tender to palpation. No crepitus. Cardiovascular/Chest: normal peripheral pulses, regular rate, rhythm, no edema Peripheral Pulses: radial,right: 2+, radial,left: 2+ Gastrointestinal/Abdominal: soft, other - Left lateral upper abdomen uncomfortable to palpation from fall. No bruising. No palpable mass. Rectal Exam: deferred Back Exam: no CVA tenderness, no vertebral tenderness Extremity: normal range of motion, non-tender, normal inspection, no pedal edema, normal capillary refill Neurologic: tile applicator II-XII nml as tested, alert, normal mood/affect, oriented x 3 Skin Exam: normal color Comments: Vital Signs - 24 hr 08/22/20 08/22/20 05:03 05:35 Temperature 97.9 F Pulse Rate [ 88 88 monitor] Respiratory 18 16 Rate Blood Pressure 124/81 119/79 [Right Arm] O2 Sat by Pulse 100 99 Oximetry Progress - Progress Progress: 08/22/20 05:36 The patient is a 44-year-old female presented to the emergency room secondary to abdominal pain from a fall that is evaluated yesterday causing her significant enough pain to prevent her from sleeping. Additionally the patient is apparently out of her opiate pain medications and may be suffering from some mild withdrawal. She is currently due to have her pain medications refilled tomorrow. The patient is given a dose of hydrocodone and a dose of Ambien here, both of which she is apparently accustomed to having. She does need to follow her blood sugars closely and keep follow-up with her pain management and primary care doctors. Additionally, her jejunal tube was flushed here without difficulty. She should be able to resume use. The patient will be discharged. ER warnings are given. [email or web address] anderson [id number] Departure - Departure Clinical Impression: Opiate withdrawal Abdominal pain Qualifiers: Abdominal location: left upper quadrant Qualified Code(s): R10.12 - Left upper quadrant pain Insomnia Qualifiers: Insomnia type: due to medical condition Qualified Code(s): G47.01 - Insomnia due to medical condition Disposition: Discharge to Home or Self Care Condition: Fair Departure Forms: ED Discharge - Pt. Copy, Patient Portal Self Enrollment Instructions: DI for Abdominal Pain-Adult, Insomnia (DC) Diet: diabetic diet Activity: increase activity as tolerated Referrals: JUSTINO MARQUEZ [facility] [Primary Care Provider] - 1-2 Weeks Home Medications: Ambulatory Orders Mometasone Furoate [Elocon] 0.1 % TOP DAILY PRN 11/07/17 Epinephrine (Anaphylaxis) [Epipen 2-Mikael] 0.3 mg IJ ONCE PRN #1 pack 03/26/18 Buspirone HCl 30 mg PO BID 10/23/18 Diazepam 5 mg PO TID 02/21/19 Gabapentin 300 mg PO TID 11/11/19 Hydrocodone-Acetaminophen [[place] 7.5-325 mg] 1 tab PO TID 11/11/19 Vilazodone HCl [Viibryd] 40 mg PO DAILY 11/11/19 tiZANidine [Zanaflex] 12 mg PO Q8H PRN 11/11/19 Ondansetron Odt [Zofran Odt] 8 mg PO Q8H PRN #12 tab 12/25/19 Albuterol Sulfate [Proair Hfa] 2 puff INH Q6H PRN 01/01/20 Azelastine HCl [Azelastine Hydrochloride] 0.1 % INH PRN PRN 01/01/20 Esomeprazole Magnesium [Nexium] 40 mg PO PRN 01/01/20 Glucagon [Baqsimi One Pack] 3 mg NA PRN 01/01/20 Hydroxyzine HCl [Hydroxyzine Hydrochloride] 50 mg PO QID 01/01/20 Insulin Glargine [Lantus Solostar] 10 unit SC BEDTIME 01/01/20 Insulin Glargine [Lantus Solostar] 25 unit SC DAILY 01/01/20 Mometasone Furoate 0.1 % TOP PRN 01/01/20 Naloxone HCl [Narcan] 4 mg NA PRN 01/01/20 Promethazine Tab [Phenergan Tablet] 25 mg PO .Q4H PRN 01/01/20 Salmeterol Xinafoate [Serevent Diskus] 50 mcg IN PRN 01/01/20 Triamcinolone 0.5% Cream [Kenalog 0.5% Cream] 1 applic TOP PRN 01/01/20 Promethazine Supp [Phenergan Suppository] 12.5 mg [place] Q6H PRN #15 sup 02/20/20 Amoxicillin & Pot Clavulanate [Augmentin Tab] 875 mg PO BID 7 Days #14 tab 06/06/20 Ciprofloxacin [Cipro] 500 mg PO BID 10 Days #20 tab 07/14/20 Lactobacillus [Lactobacillus Probiotic] 1 tab PO BID #30 tab 07/14/20 metroNIDAZOLE [Flagyl] 500 mg PO Q8H 10 Days #30 tab 07/14/20 Clonidine HCl [Clonidine Hydrochloride] 0.1 mg PO TID #21 tab 08/08/20 Additional Instructions: The patient is a 44-year-old female presented to the emergency room secondary to abdominal pain from a fall that is evaluated yesterday causing her significant enough pain to prevent her from sleeping. Additionally the patient is apparently out of her opiate pain medications and may be suffering from some mild withdrawal. She is currently due to have her pain medications refilled tomorrow. The patient is given a dose of hydrocodone and a dose of Ambien here, both of which she is apparently accustomed to having. She does need to follow her blood sugars closely and keep follow-up with her pain management and primary care doctors. Additionally, her jejunal tube was flushed here without difficul ty. She should be able to resume use. The patient will be discharged. ER warnings are given.
[2020-08-22 05:35] VITALS: O2SAT 99
[2020-08-22] MEDS ORDERED: PROMETHAZINE HCL 25 MG TAB PO ONE (05:40)
[2020-08-22] MEDS ORDERED: PROMETHAZINE HCL 25 MG TAB ONE (05:40)
[2020-08-22 05:44] VITALS: BP 118/69
== END 2020-08-22 05:44 | disposition home or self-care (01) ==
LOC: ER 05:01
DX: R10.12 Left upper quadrant pain (principal); G47.01 Insomnia due to medical condition; F11.23 Opioid dependence with withdrawal; F32.9 Major depressive disorder, single episode, unspecified; E10.9 Type 1 diabetes mellitus without complications; K21.9 Gastro-esophageal reflux disease without esophagitis; J45.909 Unspecified asthma, uncomplicated; Z93.4 Other artificial openings of gastrointestinal tract status; Z79.4 Long term (current) use of insulin; Z79.899 Other long term (current) drug therapy; Z87.891 Personal history of nicotine dependence; Z90.49 Acquired absence of other specified parts of digestive tract; Z90.710 Acquired absence of both cervix and uterus; Z91.013 Allergy to seafood; Z88.8 Allergy status to other drugs, medicaments and biological substances; Z88.6 Allergy status to analgesic agent

== ENCOUNTER 2020-08-24 15:42 | Emergency (ER) | payer MEDICARE, MEDICAID ==
[2020-08-24 16:14] VITALS: O2SAT 97
--- NOTE | 2020-08-24 16:21 | ED.PDOC ---
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 SHE COMES IN FOR SAME TODAY C/.O PAIN, APPEARING AND ACTING INTOXICATED. SHE STATES TODAY SHE IS SUPPOSED TO MEET DR WOLFE HER TO EVALUATE HER PEG TUBE TODAY. Allergies/Adverse Reactions: Allergies Fish Allergy Allergy (Verified 08/01/20 15:42) Haloperidol [From Haldol] Allergy (Verified 08/01/20 15:42) NSAIDs Allergy (Verified 08/01/20 15:42) Prochlorperazine [From Compazine] Allergy (Verified 08/01/20 15:42) Ketorolac Tromethamine [From Toradol] Adverse Reaction (Verified 08/01/20 15:42) Metoclopramide [From Reglan] Adverse Reaction (Verified 08/01/20 15:42) peanut Allergy (Severe, Uncoded 08/01/20 15:42) Home Medications: Ambulatory Orders Mometasone Furoate [Elocon] 0.1 % TOP DAILY PRN 11/07/17 Epinephrine (Anaphylaxis) [Epipen 2-Mikael] 0.3 mg IJ ONCE PRN #1 pack 03/26/18 Buspirone HCl 30 mg PO BID 10/23/18 Diazepam 5 mg PO TID 02/21/19 Gabapentin 300 mg PO TID 11/11/19 Hydrocodone-Acetaminophen [Cascade 7.5-325 mg] 1 tab PO TID 11/11/19 Vilazodone HCl [Viibryd] 40 mg PO DAILY 11/11/19 tiZANidine [Zanaflex] 12 mg PO Q8H PRN 11/11/19 Ondansetron Odt [Zofran Odt] 8 mg PO Q8H PRN #12 tab 12/25/19 Albuterol Sulfate [Proair Hfa] 2 puff INH Q6H PRN 01/01/20 Azelastine HCl [Azelastine Hydrochloride] 0.1 % INH PRN PRN 01/01/20 Esomeprazole Magnesium [Nexium] 40 mg PO PRN 01/01/20 Glucagon [Baqsimi One Pack] 3 mg NA PRN 01/01/20 Hydroxyzine HCl [Hydroxyzine Hydrochloride] 50 mg PO QID 01/01/20 Insulin Glargine [Lantus Solostar] 10 unit SC BEDTIME 01/01/20 Insulin Glargine [Lantus Solostar] 25 unit SC DAILY 01/01/20 Mometasone Furoate 0.1 % TOP PRN 01/01/20 Naloxone HCl [Narcan] 4 mg NA PRN 01/01/20 Promethazine Tab [Phenergan Tablet] 25 mg PO .Q4H PRN 01/01/20 Salmeterol Xinafoate [Serevent Diskus] 50 mcg IN PRN 01/01/20 Triamcinolone 0.5% Cream [Kenalog 0.5% Cream] 1 applic TOP PRN 01/01/20 Promethazine Supp [Phenergan Suppository] 12.5 mg [place] Q6H PRN #15 sup 02/20/20 Amoxicillin & Pot Clavulanate [Augmentin Tab] 875 mg PO BID 7 Days #14 tab 06/06/20 Ciprofloxacin [Cipro] 500 mg PO BID 10 Days #20 tab 07/14/20 Lactobacillus [Lactobacillus Probiotic] 1 tab PO BID #30 tab 07/14/20 metroNIDAZOLE [Flagyl] 500 mg PO Q8H 10 Days #30 tab 07/14/20 Clonidine HCl [Clonidine Hydrochloride] 0.1 mg PO TID #21 tab 08/08/20 Review of Systems - Review of Systems Constitutional: States: no symptoms reported EENTM: States: no symptoms reported Respiratory: States: no symptoms reported Cardiology: States: no symptoms reported Gastrointestinal/Abdominal: States: no symptoms reported Genitourinary: States: no symptoms reported Musculoskeletal: States: no symptoms reported Skin: States: no symptoms reported Neurological: States: no symptoms reported Endocrine: States: no symptoms reported Hematologic/Lymphatic: States: no symptoms reported Past Medical History (General) - Patient Medical History Hx Seizures: No Hx Stroke: No Hx Dementia: No Hx Asthma: Yes Hx of COPD: No Hx Cardiac Disorders: Yes - tachycardia Hx Congestive Heart Failure: No Hx Pacemaker: No Hx Hypertension: No Hx Thyroid Disease: No Hx Diabetes: Yes Hx Gastroesophageal Reflux: Yes Hx Renal Disease: No Hx Cancer: No Hx of HIV: No Hx Hepatitis C: No Hx MRSA: No MRSA Source:: Blood Surgical History: Hysterectomy - Vaccination History Hx Tetanus, Diphtheria Vaccination: No Hx Influenza Vaccination: No Hx Pneumococcal Vaccination: Yes Immunizations Up to Date: Yes - Social History Hx Tobacco Use: Yes - Half pack a day Hx Chewing Tobacco Use: No Hx Alcohol Use: No Hx Substance Use: No Hx Substance Use Treatment: No Hx Depression: Yes Hx Physical Abuse: No Hx Emotional Abuse: No Hx Suspected Abuse: No - Female History Patient is a Female of Child Bearing Age (10 -59 yrs old): No Hx Last Menstrual Period: 11/05/11 Patient : No Family Medical History - Family History Mother Family History: No Known Name: April Age (years): 70 Living Status: Still Living Hx Family Asthma: No Hx Family Congestive Heart Failure: No Hx Family Hypertension: No Hx Family Stroke: No Hx Cardiac Disease: No Hx Family Diabetes: No Hx Family Cancer: Yes - skin cancer Hx Family;Other: thyroid problems and seizures Father Family History: No Known Name: Marlon Age (years): 68 Living Status: Still Living Hx Family Asthma: - Sister Hx Family Congestive Heart Failure: No Hx Family Hypertension: Yes Hx Family Stroke: No Hx Cardiac Disease: Yes Hx Family Diabetes: No Age of Onset (years of age): 32 Hx Family Cancer: - Grandmother Lymphoma Physical Exam - Physical Exam General Appearance: Agitated, Alert, Frail, Ill Appearing, Restless, Unkempt Respiratory: no respiratory distress, no accessory muscle use Neurologic: no motor/sensory deficits, alert, oriented x 3 Skin Exam: normal color, warm/dry Progress - Progress Progress: 08/25/20 00:39 DR WOLFE UNABLE TO REPLACE TUBE, STATES SHE DOES NOT NEED IT ANY MORE, NO FURTHER INTERVENTION INDICATED AND SHE MAY GO HOME. Departure - Departure Clinical Impression: Gastrojejunostomy tube dislodgement Opioid dependence Qualifiers: Substance use status: with unspecified opioid-induced disorder Qualified Code(s): F11.29 - Opioid dependence with unspecified opioid-induced disorder Time of Disposition: 16:50 Disposition: Discharge to Home or Self Care Condition: Fair Departure Forms: ED Discharge - Pt. Copy, Patient Portal Self Enrollment Referrals: JUSTINO MARQUEZ [facility] [Primary Care Provider] - 1-2 Weeks Home Medications: Ambulatory Orders Mometasone Furoate [Elocon] 0.1 % TOP DAILY PRN 11/07/17 Epinephrine (Anaphylaxis) [Epipen 2-Mikael] 0.3 mg IJ ONCE PRN #1 pack 03/26/18 Buspirone HCl 30 mg PO BID 10/23/18 Diazepam 5 mg PO TID 02/21/19 Gabapentin 300 mg PO TID 11/11/19 Hydrocodone-Acetaminophen [Cascade 7.5-325 mg] 1 tab PO TID 11/11/19 Vilazodone HCl [Viibryd] 40 mg PO DAILY 11/11/19 tiZANidine [Zanaflex] 12 mg PO Q8H PRN 11/11/19 Ondansetron Odt [Zofran Odt] 8 mg PO Q8H PRN #12 tab 12/25/19 Albuterol Sulfate [Proair Hfa] 2 puff INH Q6H PRN 01/01/20 Azelastine HCl [Azelastine Hydrochloride] 0.1 % INH PRN PRN 01/01/20 Esomeprazole Magnesium [Nexium] 40 mg PO PRN 01/01/20 Glucagon [Baqsimi One Pack] 3 mg NA PRN 01/01/20 Hydroxyzine HCl [Hydroxyzine Hydrochloride] 50 mg PO QID 01/01/20 Insulin Glargine [Lantus Solostar] 10 unit SC BEDTIME 01/01/20 Insulin Glargine [Lantus Solostar] 25 unit SC DAILY 01/01/20 Mometasone Furoate 0.1 % TOP PRN 01/01/20 Naloxone HCl [Narcan] 4 mg NA PRN 01/01/20 Promethazine Tab [Phenergan Tablet] 25 mg PO .Q4H PRN 01/01/20 Salmeterol Xinafoate [Serevent Diskus] 50 mcg IN PRN 01/01/20 Triamcinolone 0.5% Cream [Kenalog 0.5% Cream] 1 applic TOP PRN 01/01/20 Promethazine Supp [Phenergan Suppository] 12.5 mg [place] Q6H PRN #15 sup 02/20/20 Amoxicillin & Pot Clavulanate [Augmentin Tab] 875 mg PO BID 7 Days #14 tab 06/06/20 Ciprofloxacin [Cipro] 500 mg PO BID 10 Days #20 tab 07/14/20 Lactobacillus [Lactobacillus Probiotic] 1 tab PO BID #30 tab 07/14/20 metroNIDAZOLE [Flagyl] 500 mg PO Q8H 10 Days #30 tab 07/14/20 Clonidine HCl [Clonidine Hydrochloride] 0.1 mg PO TID #21 tab 08/08/20
[2020-08-24 16:34] VITALS: BP 107/78; TEMP 97.8
== END 2020-08-24 16:33 | disposition home or self-care (01) ==
LOC: ER 15:42
DX: K94.23 Gastrostomy malfunction (principal); F11.29 Opioid dependence with unspecified opioid-induced disorder; F32.9 Major depressive disorder, single episode, unspecified; J45.909 Unspecified asthma, uncomplicated; E11.9 Type 2 diabetes mellitus without complications; K21.9 Gastro-esophageal reflux disease without esophagitis; Z79.899 Other long term (current) drug therapy; Z87.891 Personal history of nicotine dependence; Z79.4 Long term (current) use of insulin; Z91.013 Allergy to seafood; Z88.8 Allergy status to other drugs, medicaments and biological substances; Z88.6 Allergy status to analgesic agent

== ENCOUNTER 2020-08-31 18:25 | Emergency (ER) | payer MEDICARE, MEDICAID ==
[2020-08-31] MEDS ORDERED: ONDANSETRON INJ 4 MG/2 ML VIAL IV ONE (18:51)
[2020-08-31] MEDS ORDERED: KETOROLAC TROMETHAMINE INJ 30 MG/ML VIAL IM ONE (18:51)
[2020-08-31] MEDS ORDERED: diphenhydrAMINE HCL 50 MG/ML VIAL IV ONE (18:52)
[2020-08-31] MEDS ORDERED: SODIUM CHLORIDE 0.9% 1000ML 1,000 ML IVS ONE (18:52)
[2020-08-31] MEDS ORDERED: LORazepam 0.5 MG TAB PO ONE (20:19)
[2020-08-31] MEDS ORDERED: ZOLPIDEM TARTRATE 5 MG TAB PO ONE (21:37)
--- NOTE | 2020-08-31 21:39 | ED.PDOC ---
History of Present Illness - General Chief Complaint: GI Problem Stated Complaint: vomiting and diarrhea Time Seen by Provider: 08/31/20 18:27 Source: patient Exam Limitations: no limitations - History of Present Illness Initial Comments: The patient is a 44-year-old female presented emergency room secondary to reports of nausea vomiting and diarrhea for the last 3 days. The patient reports her blood sugars have been up in the 400s and 500s. Upon blood sugar check here is down to 173. The patient has not actually vomited since she arrived here. Additionally she reports she has been sleeping poorly and had fallen and hit the left flank area a few days ago and is having pain in that area. No syncope. No chest pain. No shortness of breath. Vital signs are stable. The patient actually looks fairly well-hydrated. Timing/Duration: other - 3 days Severity: mild Improving Factors: nothing Worsening Factors: eating Associated Symptoms: malaise, nausea/vomiting Allergies/Adverse Reactions: Allergies Fish Allergy Allergy (Verified 08/01/20 15:42) Haloperidol [From Haldol] Allergy (Verified 08/01/20 15:42) NSAIDs Allergy (Verified 08/01/20 15:42) Prochlorperazine [From Compazine] Allergy (Verified 08/01/20 15:42) Ketorolac Tromethamine [From Toradol] Adverse Reaction (Verified 08/01/20 15:42) Metoclopramide [From Reglan] Adverse Reaction (Verified 08/01/20 15:42) peanut Allergy (Severe, Uncoded 08/01/20 15:42) Home Medications: Ambulatory Orders Mometasone Furoate [Elocon] 0.1 % TOP DAILY PRN 11/07/17 Epinephrine (Anaphylaxis) [Epipen 2-Mikael] 0.3 mg IJ ONCE PRN #1 pack 03/26/18 Buspirone HCl 30 mg PO BID 10/23/18 Diazepam 5 mg PO TID 02/21/19 Gabapentin 300 mg PO TID 11/11/19 Hydrocodone-Acetaminophen [[place] 7.5-325 mg] 1 tab PO TID 11/11/19 Vilazodone HCl [Viibryd] 40 mg PO DAILY 11/11/19 tiZANidine [Zanaflex] 12 mg PO Q8H PRN 11/11/19 Ondansetron Odt [Zofran Odt] 8 mg PO Q8H PRN #12 tab 12/25/19 Albuterol Sulfate [Proair Hfa] 2 puff INH Q6H PRN 01/01/20 Azelastine HCl [Azelastine Hydrochloride] 0.1 % INH PRN PRN 01/01/20 Esomeprazole Magnesium [Nexium] 40 mg PO PRN 01/01/20 Glucagon [Baqsimi One Pack] 3 mg NA PRN 01/01/20 Hydroxyzine HCl [Hydroxyzine Hydrochloride] 50 mg PO QID 01/01/20 Insulin Glargine [Lantus Solostar] 10 unit SC BEDTIME 01/01/20 Insulin Glargine [Lantus Solostar] 25 unit SC DAILY 01/01/20 Mometasone Furoate 0.1 % TOP PRN 01/01/20 Naloxone HCl [Narcan] 4 mg NA PRN 01/01/20 Promethazine Tab [Phenergan Tablet] 25 mg PO .Q4H PRN 01/01/20 Salmeterol Xinafoate [Serevent Diskus] 50 mcg IN PRN 01/01/20 Triamcinolone 0.5% Cream [Kenalog 0.5% Cream] 1 applic TOP PRN 01/01/20 Promethazine Supp [Phenergan Suppository] 12.5 mg [place] Q6H PRN #15 sup 02/20/20 Amoxicillin & Pot Clavulanate [Augmentin Tab] 875 mg PO BID 7 Days #14 tab 06/06/20 Ciprofloxacin [Cipro] 500 mg PO BID 10 Days #20 tab 07/14/20 Lactobacillus [Lactobacillus Probiotic] 1 tab PO BID #30 tab 07/14/20 metroNIDAZOLE [Flagyl] 500 mg PO Q8H 10 Days #30 tab 07/14/20 Clonidine HCl [Clonidine Hydrochloride] 0.1 mg PO TID #21 tab 08/08/20 Review of Systems - Review of Systems Constitutional: States: no symptoms reported EENTM: States: no symptoms reported Respiratory: States: no symptoms reported Cardiology: States: no symptoms reported Gastrointestinal/Abdominal: States: diarrhea, nausea, vomiting Genitourinary: States: no symptoms reported Musculoskeletal: States: back pain Skin: States: no symptoms reported Neurological: States: no symptoms reported Endocrine: States: no symptoms reported All other Systems: No Change from Baseline Past Medical History (General) - Patient Medical History Hx Seizures: No Hx Stroke: No Hx Dementia: No Hx Asthma: Yes Hx of COPD: No Hx Cardiac Disorders: Yes - tachycardia Hx Congestive Heart Failure: No Hx Pacemaker: No Hx Hypertension: No Hx Thyroid Disease: No Hx Diabetes: Yes Hx Gastroesophageal Reflux: Yes Hx Renal Disease: No Hx Cancer: No Hx of HIV: No Hx Hepatitis C: No Hx MRSA: No MRSA Source:: Blood Surgical History: appendectomy, cholecystectomy - Vaccination History Hx Tetanus, Diphtheria Vaccination: No Hx Influenza Vaccination: No Hx Pneumococcal Vaccination: Yes - Social History Hx Tobacco Use: Yes - Half pack a day Hx Chewing Tobacco Use: No Hx Alcohol Use: No Hx Substance Use: No Hx Substance Use Treatment: No Hx Depression: Yes Hx Physical Abuse: No Hx Emotional Abuse: No Hx Suspected Abuse: No - Female History Hx Last Menstrual Period: 11/05/11 Patient : No Family Medical History - Family History Mother Family History: No Known Name: April Age (years): 70 Living Status: Still Living Hx Family Asthma: No Hx Family Congestive Heart Failure: No Hx Family Hypertension: No Hx Family Stroke: No Hx Cardiac Disease: No Hx Family Diabetes: No Hx Family Cancer: Yes - skin cancer Hx Family;Other: thyroid problems and seizures Father Family History: No Known Name: Marlon Age (years): 68 Living Status: Still Living Hx Family Asthma: - Sister Hx Family Congestive Heart Failure: No Hx Family Hypertension: Yes Hx Family Stroke: No Hx Cardiac Disease: Yes Hx Family Diabetes: No Age of Onset (years of age): 32 Hx Family Cancer: - Grandmother Lymphoma Physical Exam - Physical Exam General Appearance: Alert, No apparent distress Eye Exam: bilateral normal Ears, Nose, Throat: hearing grossly normal, normal pharynx Neck: non-tender, other - Patient appears to have mild torticollis looking towards the left today Respiratory: lungs clear, normal breath sounds, no respiratory distress, no accessory muscle use Cardiovascular/Chest: normal peripheral pulses, regular rate, rhythm, no edema Peripheral Pulses: radial,right: 2+, radial,left: 2+ Gastrointestinal/Abdominal: non tender, soft Rectal Exam: deferred Back Exam: no vertebral tenderness, CVA tenderness (L) Extremity: non-tender, normal inspection, no pedal edema, normal capillary refill Neurologic: program coordinator executive education II-XII nml as tested, alert, normal mood/affect, oriented x 3 Skin Exam: normal color Comments: Vital Signs - 24 hr 08/31/20 08/31/20 18:53 20:12 Temperature 98.7 F Pulse Rate [ 102 H 92 H left] Respiratory 20 20 Rate Blood Pressure 140/91 129/89 [left] O2 Sat by Pulse 98 100 Oximetry Progress - Progress Progress: 08/31/20 21:39 The patient is a 44-year-old female presented emergency room secondary to reports of nausea vomiting and diarrhea for the last 3 days. The patient has done well since her arrival here. She did receive a liter of IV fluids. Blood sugar was only mildly elevated so no additional insulin was given. X-ray of the lumbar spine shows no evidence of acute bony pathology. The patient was given a dose of Ambien prior to discharge for her insomnia. Keep follow-up with primary care doctor next week. Follow blood sugars closely. lana anderson [id number] Departure - Departure Clinical Impression: Nausea & vomiting, Dehydration, Insomnia Disposition: Discharge to Home or Self Care Condition: Fair Departure Forms: ED Discharge - Pt. Copy, Patient Portal Self Enrollment Diet: diabetic diet Activity: increase activity as tolerated Referrals: JUSTINO MARQUEZ IV, GROUP FITNESS ASSISTANT DEPARTMENT HEAD [Primary Care Provider] - 1-2 Weeks Home Medications: Ambulatory Orders Mometasone Furoate [Elocon] 0.1 % TOP DAILY PRN 11/07/17 Epinephrine (Anaphylaxis) [Epipen 2-Mikael] 0.3 mg IJ ONCE PRN #1 pack 03/26/18 Buspirone HCl 30 mg PO BID 10/23/18 Diazepam 5 mg PO TID 02/21/19 Gabapentin 300 mg PO TID 11/11/19 Hydrocodone-Acetaminophen [[place] 7.5-325 mg] 1 tab PO TID 11/11/19 Vilazodone HCl [Viibryd] 40 mg PO DAILY 11/11/19 tiZANidine [Zanaflex] 12 mg PO Q8H PRN 11/11/19 Ondansetron Odt [Zofran Odt] 8 mg PO Q8H PRN #12 tab 12/25/19 Albuterol Sulfate [Proair Hfa] 2 puff INH Q6H PRN 01/01/20 Azelastine HCl [Azelastine Hydrochloride] 0.1 % INH PRN PRN 01/01/20 Esomeprazole Magnesium [Nexium] 40 mg PO PRN 01/01/20 Glucagon [Baqsimi One Pack] 3 mg NA PRN 01/01/20 Hydroxyzine HCl [Hydroxyzine Hydrochloride] 50 mg PO QID 01/01/20 Insulin Glargine [Lantus Solostar] 10 unit SC BEDTIME 01/01/20 Insulin Glargine [Lantus Solostar] 25 unit SC DAILY 01/01/20 Mometasone Furoate 0.1 % TOP PRN 01/01/20 Naloxone HCl [Narcan] 4 mg NA PRN 01/01/20 Promethazine Tab [Phenergan Tablet] 25 mg PO .Q4H PRN 01/01/20 Salmeterol Xinafoate [Serevent Diskus] 50 mcg IN PRN 01/01/20 Triamcinolone 0.5% Cream [Kenalog 0.5% Cream] 1 applic TOP PRN 01/01/20 Promethazine Supp [Phenergan Suppository] 12.5 mg [place] Q6H PRN #15 sup 02/20/20 Amoxicillin & Pot Clavulanate [Augmentin Tab] 875 mg PO BID 7 Days #14 tab 06/06/20 Ciprofloxacin [Cipro] 500 mg PO BID 10 Days #20 tab 07/14/20 Lactobacillus [Lactobacillus Probiotic] 1 tab PO BID #30 tab 07/14/20 metroNIDAZOLE [Flagyl] 500 mg PO Q8H 10 Days #30 tab 07/14/20 Clonidine HCl [Clonidine Hydrochloride] 0.1 mg PO TID #21 tab 08/08/20 Additional Instructions: The patient is a 44-year-old female presented emergency room secondary to reports of nausea vomiting and diarrhea for the last 3 days. The patient has done well since her arrival here. She did receive a liter of IV fluids. Blood sugar was only mildly elevated so no additional insulin was given. X-ray of the lumbar spine shows no evidence of acute bony pathology. The patient was given a dose of Ambien prior to discharge for her insomnia. Keep follow-up with primary care doctor next week. Follow blood sugars closely.
[2020-08-31] MEDS ORDERED: HEPARIN SODIUM 100 U/ML 5 ML SYG IV ONE (21:41)
[2020-08-31] MEDS ORDERED: ZOLPIDEM TARTRATE 5 MG TAB ONE (21:47)
[2020-08-31 21:52] VITALS: BP 124/76; TEMP 97.2; O2SAT 97
--- NOTE | 2020-08-31 22:29 | RAD ---
EXAM: Lumbar Spine 3 Views CLINICAL INDICATION: Low back pain. COMPARISON: 04/07/2020 FINDINGS: 2 views of the lumbar spine reveal no fracture, compression deformity, or subluxation. The intervertebral disk spaces are preserved. The osseous structures appear intact and unremarkable. IMPRESSION: Negative lumbar spine radiographs. Electronically signed by: Hakeem Colon MD 08/31/2020 9:12 PM [facility]
== END 2020-08-31 21:53 | disposition home or self-care (01) ==
LOC: ER 18:25
DX: R11.2 Nausea with vomiting, unspecified (principal); E86.0 Dehydration; G47.00 Insomnia, unspecified; R19.7 Diarrhea, unspecified; F32.9 Major depressive disorder, single episode, unspecified; E11.9 Type 2 diabetes mellitus without complications; K21.9 Gastro-esophageal reflux disease without esophagitis; J45.909 Unspecified asthma, uncomplicated; Z90.49 Acquired absence of other specified parts of digestive tract; Z87.891 Personal history of nicotine dependence; Z79.4 Long term (current) use of insulin; Z79.899 Other long term (current) drug therapy; Z91.013 Allergy to seafood; Z88.5 Allergy status to narcotic agent; Z88.6 Allergy status to analgesic agent; Z88.8 Allergy status to other drugs, medicaments and biological substances
CPT/HCPCS: 36415; 72100; 80053; 82150; 83690; 85025; J1200; J1642; J1885; J2405; J7030

== ENCOUNTER 2020-09-01 13:19 | Emergency (ER) | payer MEDICARE, MEDICAID ==
--- NOTE | 2020-09-01 13:26 | ED.PDOC ---
History of Present Illness - General Stated Complaint: Vomiting and diarrhea Time Seen by Provider: 09/01/20 13:23 Additional Information: Patient is a frequent visitor to our emergency department for similar complaints.She was seen here yesterday for vomiting and this is her 11th visit this month. Patient Has a history of type 1 diabetes. She was on a feeding tube which was dislodged last week. Patient can take liquids but says she can keep none of them down. Patient complains of vomiting diarrhea for the last day and a half with vomiting too numerous to count over the last 24 hours. Diarrhea has also been too numerous to count in 24 hours. She has not reported red blood or melanotic stools.Patient complains of diffuse abdominal pain. She denies fever chills, cough, upper respiratory symptoms. Blood sugar was 400 at home today. She took Levemir insulin 30 units and Fias Insulin 3 units today.Patient is status post gastric surgery for bleeding ulcer about a month and a half ago. Patient is reported to have substance abuse issues but denies this. - History of Present Illness Allergies/Adverse Reactions: Allergies Fish Allergy Allergy (Verified 08/01/20 15:42) Haloperidol [From Haldol] Allergy (Verified 08/01/20 15:42) NSAIDs Allergy (Verified 08/01/20 15:42) Prochlorperazine [From Compazine] Allergy (Verified 08/01/20 15:42) Ketorolac Tromethamine [From Toradol] Adverse Reaction (Verified 08/01/20 15:42) Metoclopramide [From Reglan] Adverse Reaction (Verified 08/01/20 15:42) peanut Allergy (Severe, Uncoded 08/01/20 15:42) Home Medications: Ambulatory Orders Mometasone Furoate [Elocon] 0.1 % TOP DAILY PRN 11/07/17 Epinephrine (Anaphylaxis) [Epipen 2-Mikael] 0.3 mg IJ ONCE PRN #1 pack 03/26/18 Buspirone HCl 30 mg PO BID 10/23/18 Diazepam 5 mg PO TID 02/21/19 Gabapentin 300 mg PO TID 11/11/19 Hydrocodone-Acetaminophen [[place] 7.5-325 mg] 1 tab PO TID 11/11/19 Vilazodone HCl [Viibryd] 40 mg PO DAILY 11/11/19 tiZANidine [Zanaflex] 12 mg PO Q8H PRN 11/11/19 Ondansetron Odt [Zofran Odt] 8 mg PO Q8H PRN #12 tab 12/25/19 Albuterol Sulfate [Proair Hfa] 2 puff INH Q6H PRN 01/01/20 Azelastine HCl [Azelastine Hydrochloride] 0.1 % INH PRN PRN 01/01/20 Esomeprazole Magnesium [Nexium] 40 mg PO PRN 01/01/20 Glucagon [Baqsimi One Pack] 3 mg NA PRN 01/01/20 Hydroxyzine HCl [Hydroxyzine Hydrochloride] 50 mg PO QID 01/01/20 Insulin Glargine [Lantus Solostar] 10 unit SC BEDTIME 01/01/20 Insulin Glargine [Lantus Solostar] 25 unit SC DAILY 01/01/20 Mometasone Furoate 0.1 % TOP PRN 01/01/20 Naloxone HCl [Narcan] 4 mg NA PRN 01/01/20 Promethazine Tab [Phenergan Tablet] 25 mg PO .Q4H PRN 01/01/20 Salmeterol Xinafoate [Serevent Diskus] 50 mcg IN PRN 01/01/20 Triamcinolone 0.5% Cream [Kenalog 0.5% Cream] 1 applic TOP PRN 01/01/20 Promethazine Supp [Phenergan Suppository] 12.5 mg [place] Q6H PRN #15 sup 02/20/20 Amoxicillin & Pot Clavulanate [Augmentin Tab] 875 mg PO BID 7 Days #14 tab 06/06/20 Ciprofloxacin [Cipro] 500 mg PO BID 10 Days #20 tab 07/14/20 Lactobacillus [Lactobacillus Probiotic] 1 tab PO BID #30 tab 07/14/20 metroNIDAZOLE [Flagyl] 500 mg PO Q8H 10 Days #30 tab 07/14/20 Clonidine HCl [Clonidine Hydrochloride] 0.1 mg PO TID #21 tab 08/08/20 Review of Systems - Review of Systems Constitutional: States: no symptoms reported EENTM: States: no symptoms reported Respiratory: States: no symptoms reported Cardiology: States: no symptoms reported Gastrointestinal/Abdominal: States: abdominal pain, diarrhea, vomiting Genitourinary: States: no symptoms reported Musculoskeletal: States: no symptoms reported Skin: States: no symptoms reported Neurological: States: tremors - Chronic tremors due to dyskinesia present for years. Endocrine: States: see HPI Hematologic/Lymphatic: States: no symptoms reported All other Systems: Reviewed and Negative Past Medical History (General) - Patient Medical History Hx Seizures: No Hx Stroke: No Hx Dementia: No Hx Asthma: Yes Hx of COPD: No Hx Cardiac Disorders: Yes - tachycardia Hx Congestive Heart Failure: No Hx Pacemaker: No Hx Hypertension: No Hx Thyroid Disease: No Hx Diabetes: Yes Hx Gastroesophageal Reflux: Yes Hx Renal Disease: No Hx Cancer: No Hx of HIV: No Hx Hepatitis C: No Hx MRSA: No MRSA Source:: Blood - Vaccination History Hx Tetanus, Diphtheria Vaccination: No Hx Influenza Vaccination: No Hx Pneumococcal Vaccination: Yes - Social History Hx Tobacco Use: Yes - Half pack a day Hx Chewing Tobacco Use: No Hx Alcohol Use: No Hx Substance Use: No Hx Substance Use Treatment: No Hx Depression: Yes Hx Physical Abuse: No Hx Emotional Abuse: No Hx Suspected Abuse: No - Female History Hx Last Menstrual Period: 11/05/11 Patient : No Family Medical History - Family History Mother Family History: No Known Name: April Age (years): 70 Living Status: Still Living Hx Family Asthma: No Hx Family Congestive Heart Failure: No Hx Family Hypertension: No Hx Family Stroke: No Hx Cardiac Disease: No Hx Family Diabetes: No Hx Family Cancer: Yes - skin cancer Hx Family;Other: thyroid problems and seizures Father Family History: No Known Name: Marlon Age (years): 68 Living Status: Still Living Hx Family Asthma: - Sister Hx Family Congestive Heart Failure: No Hx Family Hypertension: Yes Hx Family Stroke: No Hx Cardiac Disease: Yes Hx Family Diabetes: No Age of Onset (years of age): 32 Hx Family Cancer: - Grandmother Lymphoma Physical Exam - Physical Exam General Appearance: Alert, Anxious Eye Exam: bilateral normal Ears, Nose, Throat: hearing grossly normal, normal ENT inspection, other - Moist mucous membranes. Neck: full range of motion Respiratory: lungs clear, normal breath sounds Cardiovascular/Chest: regular rate, rhythm Gastrointestinal/Abdominal: tenderness - Diffusely without rebound. Increased bowel sounds. No distention. Back Exam: normal inspection, no CVA tenderness Extremity: normal range of motion, no pedal edema, no calf tenderness Neurologic: charge master specialist II-XII nml as tested, no motor/sensory deficits, oriented x 3, other - Dyskinetic shaking ofHead and neck with some tremors of the upper extremities Skin Exam: normal color, warm/dry Lymphatic: no adenopathy Progress - Progress Progress: 09/01/20 14:07 IV D5 normal saline infusion 1 L over 1 hour. Phenergan 12.5 mg, Benadryl 12.5 mg, Zofran 4 mg IV. 09/01/20 15:35 Nausea and vomiting have subsided. No diarrhea noted in the emergency department. Patient is now comfortable. Medical decision making: Patient has recurrent visits to the emergency department for vomiting without significant laboratory abnormalities or dehydration. She has multiple medication allergies which makes the staff suspicious of substance abuse or dependency. Patient was successfully treated for her nausea and Abdominal pain in the emergency room Today without use of narcotics or controlled substances. Patient did not have any laboratory findings suggestive of severe dehydration or diabetic ketoacidosis. She is suitable for symptomatic treatment as an outpatient and left emergency department amenable to the outpatient plan. 09/01/20 23:49 - Results/Orders Results/Orders: 09/01/20 13:43 Dex 5% W/NaCl 0.9% 1000ML [D5 NS 1000ml] 1,000 ml IVS .QD Laboratory Results - last 24 hr 09/01/20 09/01/20 09/01/20 13:32 14:00 14:00 WBC 9.1 RBC 4.79 Hgb 10.8 L Hct 33.5 L MCV 70.0 L MCH 22.5 L MCHC 32.1 L RDW 16.8 H Plt Count 588 H MPV 7.2 L Absolute Neuts (auto) 6.20 Absolute Lymphs (auto) 2.30 Absolute Monos (auto) 0.50 Absolute Eos (auto) 0.10 Absolute Basos (auto) 0.10 Neutrophils % 68.2 Lymphocytes % 25.1 Monocytes % 5.2 Eosinophils % 0.7 L Basophils % 0.8 Sodium 135 Potassium 3.6 D Chloride 100 L Carbon Dioxide 25 Anion Gap 13.6 BUN 9 Creatinine 0.47 L BUN/Creatinine Ratio 19.1 POC Glucose 62 L Random Glucose 66 L D Serum Osmolality 267.0 L Calcium 9.2 Total Bilirubin 0.7 AST 31 ALT 103 H Alkaline Phosphatase 250 H Serum Total Protein 7.7 Albumin 3.7 Globulin 4.0 H Albumin/Globulin Ratio 0.9 L Urine Color Urine Appearance Urine pH Ur Specific [place] Urine Protein Urine Glucose (UA) Urine Ketones Urine Blood Urine Nitrite Urine Bilirubin Urine Urobilinogen Ur Leukocyte Esterase Urine RBC Urine WBC Ur Epithelial Cells Amorphous Sediment Urine Bacteria 09/01/20 09/01/20 14:22 15:35 WBC RBC Hgb Hct MCV MCH MCHC RDW Plt Count MPV Absolute Neuts (auto) Absolute Lymphs (auto) Absolute Monos (auto) Absolute Eos (auto) Absolute Basos (auto) Neutrophils % Lymphocytes % Monocytes % Eosinophils % Basophils % Sodium Potassium Chloride Carbon Dioxide Anion Gap BUN Creatinine BUN/Creatinine Ratio POC Glucose 172 H D Random Glucose Serum Osmolality Calcium Total Bilirubin AST ALT Alkaline Phosphatase Serum Total Protein Albumin Globulin Albumin/Globulin Ratio Urine Color Yellow Urine Appearance Clear Urine pH 7.0 Ur Specific [place] 1.010 Urine Protein Negative Urine Glucose (UA) Negative Urine Ketones Negative Urine Blood Trace-intact H Urine Nitrite Negative Urine Bilirubin Negative Urine Urobilinogen 0.2 Ur Leukocyte Esterase Negative Urine RBC 3-5 H Urine WBC 0-1 Ur Epithelial Cells 3-5 Amorphous Sediment 1+ Urine Bacteria Rare Vital Signs - 24 hr 09/01/20 09/01/20 09/01/20 13:24 14:15 15:00 Temperature 99.1 F 98.7 F 98.7 F Pulse Rate [ 105 H 84 93 H left brachial] Respiratory 16 20 18 Rate Blood Pressure 134/89 118/72 118/84 [left brachial] O2 Sat by Pulse 98 95 96 Oximetry 09/01/20 15:55 Temperature Pulse Rate [ 93 H left brachial] Respiratory 18 Rate Blood Pressure 124/90 [left brachial] O2 Sat by Pulse 98 Oximetry Rapid COVID-19 test negative. Repeat fingerstick blood sugar 176. Departure - Departure Clinical Impression: Gastroenteritis, Diabetes Time of Disposition: 16:29 Disposition: Discharge to Home or Self Care Condition: Good Departure Forms: ED Discharge - Pt. Copy, Patient Portal Self Enrollment Instructions: Diabetes Type 1, Adult (DC), Viral Gastroenteritis, Adult (DC) Referrals: JUSTINO MARQUEZ IV, AGRICULTURAL ENGINEERING TECHNICIANS [Primary Care Provider] - 1-2 Weeks Home Medications: Ambulatory Orders Mometasone Furoate [Elocon] 0.1 % TOP DAILY PRN 11/07/17 Epinephrine (Anaphylaxis) [Epipen 2-Mikael] 0.3 mg IJ ONCE PRN #1 pack 03/26/18 Buspirone HCl 30 mg PO BID 10/23/18 Diazepam 5 mg PO TID 02/21/19 Gabapentin 300 mg PO TID 11/11/19 Hydrocodone-Acetaminophen [[place] 7.5-325 mg] 1 tab PO TID 11/11/19 Vilazodone HCl [Viibryd] 40 mg PO DAILY 11/11/19 tiZANidine [Zanaflex] 12 mg PO Q8H PRN 11/11/19 Ondansetron Odt [Zofran Odt] 8 mg PO Q8H PRN #12 tab 12/25/19 Albuterol Sulfate [Proair Hfa] 2 puff INH Q6H PRN 01/01/20 Azelastine HCl [Azelastine Hydrochloride] 0.1 % INH PRN PRN 01/01/20 Esomeprazole Magnesium [Nexium] 40 mg PO PRN 01/01/20 Glucagon [Baqsimi One Pack] 3 mg NA PRN 01/01/20 Hydroxyzine HCl [Hydroxyzine Hydrochloride] 50 mg PO QID 01/01/20 Insulin Glargine [Lantus Solostar] 10 unit SC BEDTIME 01/01/20 Insulin Glargine [Lantus Solostar] 25 unit SC DAILY 01/01/20 Mometasone Furoate 0.1 % TOP PRN 01/01/20 Naloxone HCl [Narcan] 4 mg NA PRN 01/01/20 Promethazine Tab [Phenergan Tablet] 25 mg PO .Q4H PRN 01/01/20 Salmeterol Xinafoate [Serevent Diskus] 50 mcg IN PRN 01/01/20 Triamcinolone 0.5% Cream [Kenalog 0.5% Cream] 1 applic TOP PRN 01/01/20 Promethazine Supp [Phenergan Suppository] 12.5 mg [place] Q6H PRN #15 sup 02/20/20 Amoxicillin & Pot Clavulanate [Augmentin Tab] 875 mg PO BID 7 Days #14 tab 06/06/20 Ciprofloxacin [Cipro] 500 mg PO BID 10 Days #20 tab 07/14/20 Lactobacillus [Lactobacillus Probiotic] 1 tab PO BID #30 tab 07/14/20 metroNIDAZOLE [Flagyl] 500 mg PO Q8H 10 Days #30 tab 07/14/20 Clonidine HCl [Clonidine Hydrochloride] 0.1 mg PO TID #21 tab 08/08/20 Additional Instructions: Drink lots of clear liquids, particularly fruit juices to avoid hypoglycemia. Use your current medications for vomiting as needed. Use [id number] Imodium for diarrhea. If you develop acutely worsening symptoms or your blood sugar is Very low or very high then return to the emergency department. See your doctor as soon as possible for replacement of your feeding tube.
[2020-09-01] MEDS ORDERED: ONDANSETRON INJ 4 MG/2 ML VIAL IV ONE (13:41)
[2020-09-01] MEDS ORDERED: diphenhydrAMINE HCL 50 MG/ML VIAL IV ONE (13:42)
[2020-09-01] MEDS ORDERED: PROMETHAZINE HCL INJ 12.5 MG in SODIUM CHLORIDE 0.9% 50ML 50 ML IVPB ONE (13:42)
[2020-09-01] MEDS ORDERED: DEX 5% W/NACL 0.9% 1000ML 1,000 ML IVS PRN (13:43)
[2020-09-01] MEDS ORDERED: ACETAMINOPHEN IV 1000MG 1,000 MG in PREMIX BOTTLE 1 BOTTLE IVPB ONE (14:09)
[2020-09-01] MEDS ORDERED: HEPARIN SODIUM 100 U/ML 5 ML SYG IV ONE (16:11)
[2020-09-01 16:55] VITALS: BP 120/74; TEMP 98.5; O2SAT 97
== END 2020-09-01 16:54 | disposition home or self-care (01) ==
LOC: ER 13:19
DX: K52.9 Noninfective gastroenteritis and colitis, unspecified (principal); E10.9 Type 1 diabetes mellitus without complications; K92.1 Melena; K21.9 Gastro-esophageal reflux disease without esophagitis; J45.909 Unspecified asthma, uncomplicated; F32.9 Major depressive disorder, single episode, unspecified; Z20.822 Contact with and (suspected) exposure to COVID-19; Z79.4 Long term (current) use of insulin; Z87.11 Personal history of peptic ulcer disease; Z87.891 Personal history of nicotine dependence; Z79.899 Other long term (current) drug therapy
CPT/HCPCS: 80053; 81001; 82948; 85025; 87635; A4216; J1200; J1642; J2405; J2550; J7799

== ENCOUNTER 2020-09-02 17:18 | Emergency (ER) | payer MEDICARE, MEDICAID ==
--- NOTE | 2020-09-02 17:32 | ED.PDOC ---
History of Present Illness - General Time Seen by Provider: 09/02/20 17:18 Source: patient, RN notes reviewed, EMS notes reviewed, EMS, old records Exam Limitations: no limitations - History of Present Illness Initial Comments: 44 yo F with multiple Er visits (3 in the last 72 hours) come in after fall one week ago. States she misstep and fell onto her left side onto a wooden couch. Associated with left sided chest pain, n/v, left sided abdominal pain. States she hit her chin, no loc. Denies any other injuries. Occurred: last week Severity: moderate Reason for Fall: tripped Loss of Consciousness: no loss of consciousness Improving Factors: rest Worsening Factors: movement Allergies/Adverse Reactions: Allergies Fish Allergy Allergy (Verified 09/02/20 18:31) Haloperidol [From Haldol] Allergy (Verified 09/02/20 18:31) NSAIDs Allergy (Verified 09/02/20 18:31) Prochlorperazine [From Compazine] Allergy (Verified 09/02/20 18:31) Ketorolac Tromethamine [From Toradol] Adverse Reaction (Verified 09/02/20 18:31) Metoclopramide [From Reglan] Adverse Reaction (Verified 09/02/20 18:31) peanut Allergy (Severe, Uncoded 08/01/20 15:42) Home Medications: Ambulatory Orders Mometasone Furoate [Elocon] 0.1 % TOP DAILY PRN 11/07/17 Epinephrine (Anaphylaxis) [Epipen 2-Mikael] 0.3 mg IJ ONCE PRN #1 pack 03/26/18 Buspirone HCl 30 mg PO BID 10/23/18 Diazepam 5 mg PO TID 02/21/19 Gabapentin 300 mg PO TID 11/11/19 Hydrocodone-Acetaminophen [[place] 7.5-325 mg] 1 tab PO TID 11/11/19 Vilazodone HCl [Viibryd] 40 mg PO DAILY 11/11/19 tiZANidine [Zanaflex] 12 mg PO Q8H PRN 11/11/19 Ondansetron Odt [Zofran Odt] 8 mg PO Q8H PRN #12 tab 12/25/19 Albuterol Sulfate [Proair Hfa] 2 puff INH Q6H PRN 01/01/20 Azelastine HCl [Azelastine Hydrochloride] 0.1 % INH PRN PRN 01/01/20 Esomeprazole Magnesium [Nexium] 40 mg PO PRN 01/01/20 Glucagon [Baqsimi One Pack] 3 mg NA PRN 01/01/20 Hydroxyzine HCl [Hydroxyzine Hydrochloride] 50 mg PO QID 01/01/20 Insulin Glargine [Lantus Solostar] 10 unit SC BEDTIME 01/01/20 Insulin Glargine [Lantus Solostar] 25 unit SC DAILY 01/01/20 Mometasone Furoate 0.1 % TOP PRN 01/01/20 Naloxone HCl [Narcan] 4 mg NA PRN 01/01/20 Promethazine Tab [Phenergan Tablet] 25 mg PO .Q4H PRN 01/01/20 Salmeterol Xinafoate [Serevent Diskus] 50 mcg IN PRN 01/01/20 Triamcinolone 0.5% Cream [Kenalog 0.5% Cream] 1 applic TOP PRN 01/01/20 Promethazine Supp [Phenergan Suppository] 12.5 mg [place] Q6H PRN #15 sup 02/20/20 Amoxicillin & Pot Clavulanate [Augmentin Tab] 875 mg PO BID 7 Days #14 tab 06/06/20 Ciprofloxacin [Cipro] 500 mg PO BID 10 Days #20 tab 07/14/20 Lactobacillus [Lactobacillus Probiotic] 1 tab PO BID #30 tab 07/14/20 metroNIDAZOLE [Flagyl] 500 mg PO Q8H 10 Days #30 tab 07/14/20 Clonidine HCl [Clonidine Hydrochloride] 0.1 mg PO TID #21 tab 08/08/20 Zolpidem Tartrate [Ambien] 5 mg PO BEDTIME PRN 3 Days #3 tab 09/02/20 Review of Systems - Review of Systems Constitutional: Denies: chills, fever EENTM: Denies: blurred vision, throat pain Respiratory: Denies: cough, short of breath Cardiology: States: chest pain. Denies: palpitations, syncope Gastrointestinal/Abdominal: States: abdominal pain - chronic , nausea, vomiting, other - denies black or bloody bm . Denies: constipation, diarrhea Genitourinary: Denies: dysuria, frequency, hematuria, pain Musculoskeletal: States: muscle pain. Denies: neck pain Skin: Denies: rash Neurological: Denies: numbness, paresthesia, weakness Endocrine: Denies: unexplained weight gain Hematologic/Lymphatic: Denies: easy bleeding, easy bruising Past Medical History (General) - Patient Medical History Hx Seizures: No Hx Stroke: No Hx Dementia: No Hx Asthma: Yes Hx of COPD: No Hx Cardiac Disorders: Yes - tachycardia Hx Congestive Heart Failure: No Hx Pacemaker: No Hx Hypertension: No Hx Thyroid Disease: No Hx Diabetes: Yes Hx Gastroesophageal Reflux: Yes Hx Renal Disease: No Hx Cancer: No Hx of HIV: No Hx Hepatitis C: No Hx MRSA: No MRSA Source:: Blood - Vaccination History Hx Tetanus, Diphtheria Vaccination: No Hx Influenza Vaccination: No Hx Pneumococcal Vaccination: Yes - Social History Hx Tobacco Use: Yes - Half pack a day Hx Chewing Tobacco Use: No Hx Alcohol Use: No Hx Substance Use: No Hx Substance Use Treatment: No Hx Depression: Yes Hx Physical Abuse: No Hx Emotional Abuse: No Hx Suspected Abuse: No - Female History Hx Last Menstrual Period: 11/05/11 Patient : No Physical Exam - Physical Exam General Appearance: Alert, Comfortable, No apparent distress, Well Developed, Well Groomed, Well Hydrated, Well Nourished, Other - torticollis Head Injury: no evidence of injury, other - no raccoon or wyatt sign Eye Exam: bilateral normal ENT Exam: hearing grossly normal, no evidence of ENT injury, no dental injury Peripheral Pulses: radial,right: 2+, radial,left: 2+ Cardiovascular/Respiratory: regular rate, rhythm, no M/R/G, normal peripheral pulses, no JVD, normal breath sounds, no respiratory distress Gastrointestinal/Abdominal: normal bowel sounds, non tender, soft, no organomegaly, no pulsatile mass, other - surgical scar noted, well healed. 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 no n/v. given 3 days of Ambien for insomnia. The data reviewed when caring for this patient included: nurse notes, prior records, etc. The history and assessments from nurses notes were reviewed and considered, and the patient's home medication list was also reviewed and considered. My assessment and the results of testing completed here in the ED were discussed with the patient. All questions were answered, and they express understanding of my assessment and the plan. They have been instructed to return if their symptoms worsen, and have been asked to follow up with their primary care physician to recheck today's presenting complaint. return precautions given. I have reviewed medication, benefits, alternatives and side effects. Patient decided to proceed with medication. Rebecca Garcia DO #801 09/02/20 19:14 - Results/Orders Results/Orders: Laboratory Results WBC 7.4 K/mm3 (4.8-10.8) 09/02/20 17:35 RBC 4.56 M/mm3 (4.20-5.40) 09/02/20 17:35 Hgb 10.3 gm/dL (12.0-16.0) L 09/02/20 17:35 Hct 32.0 % (36.0-47.0) L 09/02/20 17:35 MCV 70.2 fl (81.0-99.0) L 09/02/20 17:35 MCH 22.6 pg (27.0-31.0) L 09/02/20 17:35 MCHC 32.1 g/dL (33.0-37.0) L 09/02/20 17:35 RDW 16.9 % (11.5-14.5) H 09/02/20 17:35 Plt Count 520 K/mm3 (130-400) H 09/02/20 17:35 MPV 7.0 fl (7.40-10.4) L 09/02/20 17:35 Absolute Neuts (auto) 5.10 K/uL (1.8-6.8) 09/02/20 17:35 Absolute Lymphs (auto) 1.70 K/uL (1.0-3.4) 09/02/20 17:35 Absolute Monos (auto) 0.50 K/uL (0.2-0.8) 09/02/20 17:35 Absolute Eos (auto) 0.10 K/uL (0.0-0.4) 09/02/20 17:35 Absolute Basos (auto) 0.00 K/uL (0.0-0.1) 09/02/20 17:35 Neutrophils % 68.8 % (42.0-78.0) 09/02/20 17:35 Lymphocytes % 23.4 % (20.0-50.0) 09/02/20 17:35 Monocytes % 6.5 % (2.0-9.0) 09/02/20 17:35 Eosinophils % 0.8 % (1.0-5.0) L 09/02/20 17:35 Basophils % 0.5 % (0.0-2.0) 09/02/20 17:35 Sodium 134 mmol/L (135-145) L 09/02/20 17:35 Potassium 3.5 mmol/L (3.6-5.0) L 09/02/20 17:35 Chloride 100 mmol/L (101-111) L 09/02/20 17:35 Carbon Dioxide 22 mmol/L (21-31) 09/02/20 17:35 Anion Gap 15.5 (12-18) 09/02/20 17:35 BUN < 6 mg/dL (7-18) L D 09/02/20 17:35 Creatinine 0.44 mg/dL (0.6-1.3) L 09/02/20 17:35 BUN/Creatinine Ratio 13.6 (10-20) 09/02/20 17:35 Random Glucose 167 mg/dL (70-105) H D 09/02/20 17:35 Serum Osmolality 269.7 mOsm/L (275-295) L 09/02/20 17:35 Calcium 9.3 mg/dL (8.4-10.2) 09/02/20 17:35 Total Bilirubin 0.7 mg/dL (0.2-1.0) 09/02/20 17:35 AST 20 IU/L (10-42) 09/02/20 17:35 ALT 74 IU/L (10-60) H 09/02/20 17:35 Alkaline Phosphatase 228 IU/L (42-121) H 09/02/20 17:35 Troponin I < 0.02 ng/mL (0.01-0.05) 09/02/20 17:35 Serum Total Protein 7.6 gm/dL (6.4-8.2) 09/02/20 17:35 Albumin 3.6 g/dl (3.2-5.5) 09/02/20 17:35 Globulin 4.0 gm/dL (2.3-3.5) H 09/02/20 17:35 Albumin/Globulin Ratio 0.9 (1.1-1.9) L 09/02/20 17:35 Lipase 35 U/L (22-51) D 09/02/20 17:35 - EKG/XRAY/CT EKG: Sinus - hr 81, nsr Comments: q wave noted in v1-v2 seen on prior ekg 08/20, no acute ischemia. XRAY: chest - no acute cardiopulmonary pathology, no acute rib fractures seen Xray Comments: Abd flat/upright, normal bowel gas pattern. Departure - Departure Clinical Impression: Abdominal pain Qualifiers: Abdominal location: left lower quadrant Qualified Code(s): R10.32 - Left lower quadrant pain Insomnia Qualifiers: Insomnia type: unspecified Qualified Code(s): G47.00 - Insomnia, unspecified ICD-10 Supporting Text: Chronic pain. fall Time of Disposition: 18:44 Disposition: Discharge to Home or Self Care Instructions: Nausea and Vomiting, Adult (DC), Insomnia (DC), Tips for Getting Better Sleep Diet: resume usual diet Activity: increase activity as tolerated Referrals: JUSTINO MARQUEZ IV PREMIUM REPRESENTATIVE [Primary Care Provider] - 1-2 Days Prescriptions: Zolpidem Tartrate [Ambien] 5 mg PO BEDTIME PRN 3 Days #3 tab PRN Reason: Insomnia Home Medications: Ambulatory Orders Mometasone Furoate [Elocon] 0.1 % TOP DAILY PRN 11/07/17 Epinephrine (Anaphylaxis) [Epipen 2-Mikael] 0.3 mg IJ ONCE PRN #1 pack 03/26/18 Buspirone HCl 30 mg PO BID 10/23/18 Diazepam 5 mg PO TID 02/21/19 Gabapentin 300 mg PO TID 11/11/19 Hydrocodone-Acetaminophen [[place] 7.5-325 mg] 1 tab PO TID 11/11/19 Vilazodone HCl [Viibryd] 40 mg PO DAILY 11/11/19 tiZANidine [Zanaflex] 12 mg PO Q8H PRN 11/11/19 Ondansetron Odt [Zofran Odt] 8 mg PO Q8H PRN #12 tab 12/25/19 Albuterol Sulfate [Proair Hfa] 2 puff INH Q6H PRN 01/01/20 Azelastine HCl [Azelastine Hydrochloride] 0.1 % INH PRN PRN 01/01/20 Esomeprazole Magnesium [Nexium] 40 mg PO PRN 01/01/20 Glucagon [Baqsimi One Pack] 3 mg NA PRN 01/01/20 Hydroxyzine HCl [Hydroxyzine Hydrochloride] 50 mg PO QID 01/01/20 Insulin Glargine [Lantus Solostar] 10 unit SC BEDTIME 01/01/20 Insulin Glargine [Lantus Solostar] 25 unit SC DAILY 01/01/20 Mometasone Furoate 0.1 % TOP PRN 01/01/20 Naloxone HCl [Narcan] 4 mg NA PRN 01/01/20 Promethazine Tab [Phenergan Tablet] 25 mg PO .Q4H PRN 01/01/20 Salmeterol Xinafoate [Serevent Diskus] 50 mcg IN PRN 01/01/20 Triamcinolone 0.5% Cream [Kenalog 0.5% Cream] 1 applic TOP PRN 01/01/20 Promethazine Supp [Phenergan Suppository] 12.5 mg [place] Q6H PRN #15 sup 02/20/20 Amoxicillin & Pot Clavulanate [Augmentin Tab] 875 mg PO BID 7 Days #14 tab 06/06/20 Ciprofloxacin [Cipro] 500 mg PO BID 10 Days #20 tab 07/14/20 Lactobacillus [Lactobacillus Probiotic] 1 tab PO BID #30 tab 07/14/20 metroNIDAZOLE [Flagyl] 500 mg PO Q8H 10 Days #30 tab 07/14/20 Clonidine HCl [Clonidine Hydrochloride] 0.1 mg PO TID #21 tab 08/08/20 Zolpidem Tartrate [Ambien] 5 mg PO BEDTIME PRN 3 Days #3 tab 09/02/20
[2020-09-02] MEDS ORDERED: PROMETHAZINE HCL INJ 12.5 MG in SODIUM CHLORIDE 0.9% 50ML 50 ML IVPB ONE (17:37)
--- NOTE | 2020-09-02 18:30 | RAD ---
EXAM: Abdomen Series CLINICAL INDICATION: 44-year-old female status post fall. TECHNIQUE: Single view, PA chest was obtained. Two views of the abdomen were obtained in upright and supine positioning. COMPARISON: 08/20/2020. FINDINGS: Chest: Unremarkable cardiac and mediastinal silhouette. Heart size is normal. RIGHT chest wall port catheter tip terminates at within the SVC. Lungs are clear without focal opacity, pneumothorax or pleural effusions. The visualized bones are within normal limits, of chest radiograph technique, however if there is clinical concern for bone injury, dedicated rib series or CT chest is recommended. Abdomen: Gas is seen within normal caliber small and large bowel. No free air is identified. Cholecystectomy clips. There are no abnormal calcifications. The osseous structures are within normal limits. IMPRESSION: 1. No acute cardiopulmonary abnormalities. 2. Nonspecific abdominal bowel gas pattern, within normal limits. Electronically signed by: Justa Paniagua MD 09/02/2020 6:28 PM ENGINEERING AGENT
[2020-09-02] MEDS ORDERED: ZOLPIDEM TARTRATE 5 MG TAB PO ONE (19:15)
[2020-09-02] MEDS ORDERED: ZOLPIDEM TARTRATE 5 MG TAB ONE (19:17)
[2020-09-02 19:29] VITALS: BP 114/81; TEMP 97.2; O2SAT 97
== END 2020-09-02 19:29 | disposition home or self-care (01) ==
LOC: ER 17:18
DX: R10.32 Left lower quadrant pain (principal); G47.00 Insomnia, unspecified; G89.29 Other chronic pain; R11.2 Nausea with vomiting, unspecified; M43.6 Torticollis; F32.9 Major depressive disorder, single episode, unspecified; E11.9 Type 2 diabetes mellitus without complications; K21.9 Gastro-esophageal reflux disease without esophagitis; J45.909 Unspecified asthma, uncomplicated; Z87.891 Personal history of nicotine dependence; Z79.899 Other long term (current) drug therapy; Z79.4 Long term (current) use of insulin; Z91.013 Allergy to seafood; Z88.8 Allergy status to other drugs, medicaments and biological substances; Z88.6 Allergy status to analgesic agent
CPT/HCPCS: 36415; 74019; 80053; 83690; 84484; 85025; A4216; J2060; J2550

== ENCOUNTER 2020-09-04 12:07 | Emergency (ER) | payer MEDICARE, MEDICAID ==
[2020-09-04] MEDS ORDERED: LACTATED RINGERS 1,000 ML IVS ONE (13:11)
[2020-09-04] MEDS ORDERED: diphenhydrAMINE HCL 50 MG/ML VIAL IV ONE (13:12)
[2020-09-04] MEDS ORDERED: PROMETHAZINE HCL INJ 25 MG/ML VIAL IM ONE (13:24)
--- NOTE | 2020-09-04 13:25 | ED.PDOC ---
History of Present Illness - General Chief Complaint: GI Problem Stated Complaint: n/v, diarrhea, neck pain Time Seen by Provider: 09/04/20 12:10 Source: patient, RN notes reviewed, Vital Signs reviewed - History of Present Illness Initial Comments: Nausea/vomiting, TMJ. Patient states she is seeing neurologist for her TMJ, is being worked up for parkinsons due to her tremor of her hands. Timing/Duration: 24 hours Severity: moderate Improving Factors: other - benzos, opoids. Associated Symptoms: nausea/vomiting Allergies/Adverse Reactions: Allergies Fish Allergy Allergy (Verified 09/04/20 13:04) Haloperidol [From Haldol] Allergy (Verified 09/04/20 13:04) NSAIDs Allergy (Verified 09/04/20 13:04) Prochlorperazine [From Compazine] Allergy (Verified 09/04/20 13:04) Ketorolac Tromethamine [From Toradol] Adverse Reaction (Verified 09/04/20 13:04) Metoclopramide [From Reglan] Adverse Reaction (Verified 09/04/20 13:04) peanut Allergy (Severe, Uncoded 09/04/20 13:04) Home Medications: Ambulatory Orders Mometasone Furoate [Elocon] 0.1 % TOP DAILY PRN 11/07/17 Epinephrine (Anaphylaxis) [Epipen 2-Mikael] 0.3 mg IJ ONCE PRN #1 pack 03/26/18 Buspirone HCl 30 mg PO BID 10/23/18 Diazepam 5 mg PO TID 02/21/19 Gabapentin 300 mg PO TID 11/11/19 Hydrocodone-Acetaminophen [[place] 7.5-325 mg] 1 tab PO TID 11/11/19 Vilazodone HCl [Viibryd] 40 mg PO DAILY 11/11/19 tiZANidine [Zanaflex] 12 mg PO Q8H PRN 11/11/19 Ondansetron Odt [Zofran Odt] 8 mg PO Q8H PRN #12 tab 12/25/19 Albuterol Sulfate [Proair Hfa] 2 puff INH Q6H PRN 01/01/20 Azelastine HCl [Azelastine Hydrochloride] 0.1 % INH PRN PRN 01/01/20 Esomeprazole Magnesium [Nexium] 40 mg PO PRN 01/01/20 Glucagon [Baqsimi One Pack] 3 mg NA PRN 01/01/20 Hydroxyzine HCl [Hydroxyzine Hydrochloride] 50 mg PO QID 01/01/20 Insulin Glargine [Lantus Solostar] 10 unit SC BEDTIME 01/01/20 Insulin Glargine [Lantus Solostar] 25 unit SC DAILY 01/01/20 Mometasone Furoate 0.1 % TOP PRN 01/01/20 Naloxone HCl [Narcan] 4 mg NA PRN 01/01/20 Promethazine Tab [Phenergan Tablet] 25 mg PO .Q4H PRN 01/01/20 Salmeterol Xinafoate [Serevent Diskus] 50 mcg IN PRN 01/01/20 Triamcinolone 0.5% Cream [Kenalog 0.5% Cream] 1 applic TOP PRN 01/01/20 Promethazine Supp [Phenergan Suppository] 12.5 mg [place] Q6H PRN #15 sup 02/20/20 Amoxicillin & Pot Clavulanate [Augmentin Tab] 875 mg PO BID 7 Days #14 tab 06/06/20 Ciprofloxacin [Cipro] 500 mg PO BID 10 Days #20 tab 07/14/20 Lactobacillus [Lactobacillus Probiotic] 1 tab PO BID #30 tab 07/14/20 metroNIDAZOLE [Flagyl] 500 mg PO Q8H 10 Days #30 tab 07/14/20 Clonidine HCl [Clonidine Hydrochloride] 0.1 mg PO TID #21 tab 08/08/20 Zolpidem Tartrate [Ambien] 5 mg PO BEDTIME PRN 3 Days #3 tab 09/02/20 Review of Systems - Review of Systems Constitutional: States: malaise. Denies: chills, fever EENTM: States: other - TMJ. Denies: blurred vision, throat pain, mouth pain Respiratory: Denies: cough, short of breath Cardiology: Denies: chest pain Gastrointestinal/Abdominal: States: diarrhea, nausea, vomiting. Denies: ab dominal pain Genitourinary: Denies: pain Musculoskeletal: States: muscle pain, neck pain Skin: Denies: rash Neurological: States: tremors - hands, chronic. Denies: headache, numbness, weakness Endocrine: Denies: unexplained weight gain Hematologic/Lymphatic: Denies: easy bruising Past Medical History (General) - Patient Medical History Hx Seizures: No Hx Stroke: No Hx Dementia: No Hx Asthma: Yes Hx of COPD: No Hx Cardiac Disorders: Yes - tachycardia Hx Congestive Heart Failure: No Hx Pacemaker: No Hx Hypertension: No Hx Thyroid Disease: No Hx Diabetes: Yes Hx Gastroesophageal Reflux: Yes Hx Renal Disease: No Hx Cancer: No Hx of HIV: No Hx Hepatitis C: No Hx MRSA: No MRSA Source:: Blood Surgical History: appendectomy, cholecystectomy, Hysterectomy - Vaccination History Hx Tetanus, Diphtheria Vaccination: No Hx Influenza Vaccination: No Hx Pneumococcal Vaccination: Yes - Social History Hx Tobacco Use: Yes - Half pack a day Hx Chewing Tobacco Use: No Hx Alcohol Use: No Hx Substance Use: No Hx Substance Use Treatment: No Hx Depression: Yes Hx Physical Abuse: No Hx Emotional Abuse: No Hx Suspected Abuse: No - Female History Hx Last Menstrual Period: 11/05/11 Patient : No Family Medical History - Family History Mother Family History: No Known Name: April Age (years): 70 Living Status: Still Living Hx Family Asthma: No Hx Family Congestive Heart Failure: No Hx Family Hypertension: No Hx Family Stroke: No Hx Cardiac Disease: No Hx Family Diabetes: No Hx Family Cancer: Yes - skin cancer Hx Family;Other: thyroid problems and seizures Father Family History: No Known Name: Marlon Age (years): 68 Living Status: Still Living Hx Family Asthma: - Sister Hx Family Congestive Heart Failure: No Hx Family Hypertension: Yes Hx Family Stroke: No Hx Cardiac Disease: Yes Hx Family Diabetes: No Age of Onset (years of age): 32 Hx Family Cancer: - Grandmother Lymphoma Physical Exam - Physical Exam General Appearance: Alert, No apparent distress, Well Developed, Well Groomed, Well Hydrated, Well Nourished Eye Exam: bilateral normal Ears, Nose, Throat: hearing grossly normal, normal ENT inspection, other - States she can't open jaw when asked to see pharynx, but seems to open well while talking. Neck: supple, other - turned to the left, decrease active ROM. Respiratory: chest non-tender, lungs clear, normal breath sounds, no respiratory distress, no accessory muscle use Cardiovascular/Chest: normal peripheral pulses, regular rate, rhythm - hr 95, no edema, no gallop, no JVD, no murmur Peripheral Pulses: radial,right: 2+, radial,left: 2+ Gastrointestinal/Abdominal: normal bowel sounds, non tender, soft, no or ganomegaly, no pulsatile mass Rectal Exam: deferred Back Exam: normal inspection, no CVA tenderness Extremity: normal inspection Progress - Progress Progress: 09/04/20 14:44 patient given I L saline, phenergan, benadryl. Given Po tylenol and ativan. Also given 10 units of regular insulin. 09/04/20 14:18 GLUCOSE, FINGER STICK Stat repeat glucose 253 Laboratory Results Sodium 135 mmol/L (135-145) 09/04/20 13:04 Potassium 3.7 mmol/L (3.6-5.0) 09/04/20 13:04 Chloride 101 mmol/L (101-111) 09/04/20 13:04 Carbon Dioxide 22 mmol/L (21-31) 09/04/20 13:04 Anion Gap 15.7 (12-18) 09/04/20 13:04 BUN 8 mg/dL (7-18) 09/04/20 13:04 Creatinine 0.61 mg/dL (0.6-1.3) 09/04/20 13:04 BUN/Creatinine Ratio 13.1 (10-20) 09/04/20 13:04 Random Glucose 393 mg/dL (70-105) H D 09/04/20 13:04 Serum Osmolality 284.8 mOsm/L (275-295) 09/04/20 13:04 Calcium 9.2 mg/dL (8.4-10.2) 09/04/20 13:04 Serum Ketones Negative 09/04/20 13:00 The data reviewed when caring for this patient included: nurse notes, prior records, etc. The history and assessments from nurses notes were reviewed and considered, and the patient's home medication list was also reviewed and considered. My assessment and the results of testing completed here in the ED were discussed with the patient. All questions were answered, and they express understanding of my assessment and the plan. They have been instructed to return if their symptoms worsen, and have been asked to follow up with their doctor to recheck today's presenting complaint. Rebecca Garcia DO #801 - EKG/XRAY/CT CT Ordered: No CT Interpretation Call Back: No Departure - Departure Clinical Impression: Nausea vomiting and diarrhea, Anxiety Diabetes mellitus type 1, uncontrolled, insulin dependent Qualifiers: Glycemic state: with hyperglycemia Qualified Code(s): E10.65 - Type 1 diabetes mellitus with hyperglycemia TMJ (dislocation of temporomandibular joint) Qualifiers: Encounter type: subsequent encounter Qualified Code(s): S03.00XD - Dislocation of jaw, unspecified side, subsequent encounter Time of Disposition: 14:40 Disposition: Discharge to Home or Self Care Departure Forms: ED Discharge - Pt. Copy, Patient Portal Self Enrollment Instructions: Neck Pain, Temporomandibular Joint (TMJ) Disorders (DC), TMJ Exercises, Neck Pain Exercises Diet: resume usual diet Activity: increase activity as tolerated Referrals: JUSTINO MARQUEZ IV, [facility] [facility] TECH [Primary Care Provider] - 1-5 Days Home Medications: Ambulatory Orders Mometasone Furoate [Elocon] 0.1 % TOP DAILY PRN 11/07/17 Epinephrine (Anaphylaxis) [Epipen 2-Mikael] 0.3 mg IJ ONCE PRN #1 pack 03/26/18 Buspirone HCl 30 mg PO BID 10/23/18 Diazepam 5 mg PO TID 02/21/19 Gabapentin 300 mg PO TID 11/11/19 Hydrocodone-Acetaminophen [[place] 7.5-325 mg] 1 tab PO TID 11/11/19 Vilazodone HCl [Viibryd] 40 mg PO DAILY 11/11/19 tiZANidine [Zanaflex] 12 mg PO Q8H PRN 11/11/19 Ondansetron Odt [Zofran Odt] 8 mg PO Q8H PRN #12 tab 12/25/19 Albuterol Sulfate [Proair Hfa] 2 puff INH Q6H PRN 01/01/20 Azelastine HCl [Azelastine Hydrochloride] 0.1 % INH PRN PRN 01/01/20 Esomeprazole Magnesium [Nexium] 40 mg PO PRN 01/01/20 Glucagon [Baqsimi One Pack] 3 mg NA PRN 01/01/20 Hydroxyzine HCl [Hydroxyzine Hydrochloride] 50 mg PO QID 01/01/20 Insulin Glargine [Lantus Solostar] 10 unit SC BEDTIME 01/01/20 Insulin Glargine [Lantus Solostar] 25 unit SC DAILY 01/01/20 Mometasone Furoate 0.1 % TOP PRN 01/01/20 Naloxone HCl [Narcan] 4 mg NA PRN 01/01/20 Promethazine Tab [Phenergan Tablet] 25 mg PO .Q4H PRN 01/01/20 Salmeterol Xinafoate [Serevent Diskus] 50 mcg IN PRN 01/01/20 Triamcinolone 0.5% Cream [Kenalog 0.5% Cream] 1 applic TOP PRN 01/01/20 Promethazine Supp [Phenergan Suppository] 12.5 mg [place] Q6H PRN #15 sup 02/20/20 Amoxicillin & Pot Clavulanate [Augmentin Tab] 875 mg PO BID 7 Days #14 tab 06/06/20 Ciprofloxacin [Cipro] 500 mg PO BID 10 Days #20 tab 07/14/20 Lactobacillus [Lactobacillus Probiotic] 1 tab PO BID #30 tab 07/14/20 metroNIDAZOLE [Flagyl] 500 mg PO Q8H 10 Days #30 tab 07/14/20 Clonidine HCl [Clonidine Hydrochloride] 0.1 mg PO TID #21 tab 08/08/20 Zolpidem Tartrate [Ambien] 5 mg PO BEDTIME PRN 3 Days #3 tab 09/02/20
[2020-09-04] MEDS ORDERED: ACETAMINOPHEN 325 MG TAB PO ONE (14:03)
[2020-09-04] MEDS ORDERED: LORazepam 0.5 MG TAB PO ONE (14:03)
[2020-09-04] MEDS ORDERED: INSULIN, REG.(HUMAN) 100 U/ML VIAL SUBCU ONE (14:04)
[2020-09-04 14:57] VITALS: BP 128/90; TEMP 97.9; O2SAT 100
== END 2020-09-04 14:53 | disposition home or self-care (01) ==
LOC: ER 12:07
DX: E10.65 Type 1 diabetes mellitus with hyperglycemia (principal); R11.2 Nausea with vomiting, unspecified; R19.7 Diarrhea, unspecified; F41.9 Anxiety disorder, unspecified; S03.00XD Dislocation of jaw, unspecified side, subsequent encounter; M54.2 Cervicalgia; J45.909 Unspecified asthma, uncomplicated; K21.9 Gastro-esophageal reflux disease without esophagitis; X58.XXXD Exposure to other specified factors, subsequent encounter; Z79.4 Long term (current) use of insulin; Z87.891 Personal history of nicotine dependence; Z90.49 Acquired absence of other specified parts of digestive tract; Z79.899 Other long term (current) drug therapy; Z88.8 Allergy status to other drugs, medicaments and biological substances; Z88.5 Allergy status to narcotic agent; Z88.6 Allergy status to analgesic agent; Z91.013 Allergy to seafood
CPT/HCPCS: 80048; 82009; 82948; J1200; J2550; J7120

== ENCOUNTER 2020-09-07 09:52 | Emergency (ER) | payer MEDICARE, MEDICAID ==
[2020-09-07] MEDS ORDERED: ONDANSETRON ODT 8 MG TAB SL ONE (10:17)
[2020-09-07] MEDS ORDERED: PANTOPRAZOLE SODIUM IV 40 MG VIAL IV ONE (10:38)
--- NOTE | 2020-09-07 10:49 | RAD ---
EXAM DESCRIPTION: Chest,1 View CLINICAL HISTORY: 45 years Female, cough, vomiting COMPARISON: Previous study August 14, 2020 TECHNIQUE: AP portable chest. FINDINGS: Heart size is normal with normal pulmonary vascularity. Port-A-Cath on the right with tip in the region of the upper superior vena cava. Right hemidiaphragm is mildly elevated. No significant change compared to previous study. No consolidating infiltrate. No pulmonary mass or worrisome nodule. No pneumothorax or pleural effusion. Bones are unremarkable. IMPRESSION: No acute process is identified in the chest. Electronically signed by: Tera Luis MD 09/07/2020 10:47 AM [facility]
[2020-09-07] MEDS ORDERED: KETOROLAC TROMETHAMINE INJ 30 MG/ML VIAL IM ONE (11:22)
[2020-09-07] MEDS ORDERED: SUCRALFATE 1 GM/10 ML 1 GM UD PO ONE (11:22)
[2020-09-07] MEDS ORDERED: ZOLPIDEM TARTRATE 5 MG TAB PO ONE (11:27)
--- NOTE | 2020-09-07 11:27 | ED.PDOC ---
History of Present Illness - General Chief Complaint: Chest Pain/RI Stated Complaint: chest pain Time Seen by Provider: 09/07/20 09:53 Source: patient Exam Limitations: no limitations - History of Present Illness Initial Comments: The patient is a 45-year-old female presented emergency room secondary to continued issues with nausea and vomiting. No syncope. The patient is starting to have more reflux symptoms. She is no longer taking her Carafate. No fevers. She reports that she did not hold down her Nexium this morning. She reports that her blood sugar was around 500 this morning however upon check here it was around 170. She is alert and oriented. She is anxious mainly because she was unable to hold down her clonazepam this morning. No real new symptoms. She denies any recent medication use otherwise. She has not yet gotten her J- tube put back in place. The patient reports that she did not sleep any last night due to the nausea. The patient does not appear dehydrated. Timing/Duration: unsure Severity: moderate Improving Factors: nothing Worsening Factors: nothing Associated Symptoms: headaches, loss of appetite, malaise, nausea/vomiting Allergies/Adverse Reactions: Allergies Fish Allergy Allergy (Verified 09/07/20 10:08) Haloperidol [From Haldol] Allergy (Verified 09/07/20 10:08) NSAIDs Allergy (Verified 09/07/20 10:08) Prochlorperazine [From Compazine] Allergy (Verified 09/07/20 10:08) Ketorolac Tromethamine [From Toradol] Adverse Reaction (Verified 09/07/20 10:08) Metoclopramide [From Reglan] Adverse Reaction (Verified 09/07/20 10:08) peanut Allergy (Severe, Uncoded 09/07/20 10:08) Home Medications: Ambulatory Orders Buspirone HCl 30 mg PO BID 10/23/18 Gabapentin 300 mg PO TID 11/11/19 tiZANidine [Zanaflex] 12 mg PO Q8H PRN 11/11/19 Ondansetron Odt [Zofran Odt] 8 mg PO Q8H PRN #12 tab 12/25/19 Insulin Glargine [Lantus Solostar] 10 unit SC BEDTIME 01/01/20 Promethazine Tab [Phenergan Tablet] 25 mg PO .Q4H PRN 01/01/20 Clonazepam [Klonopin] 2 mg PO TID 09/07/20 HYDROcodone 10MG/APAP 325MG [[place] 10/325] 1 tab PO Q4HR PRN 09/07/20 Insulin Aspart (with Niacinami [Fiasp] 0 unit SC AC 09/07/20 Iron Combinations [Niferex] 1 tab PO BID #60 tab 09/07/20 Propranolol HCl [Propranolol Hydrochloride] 10 mg PO TID 09/07/20 Sucralfate Suspension [Carafate Suspension] 1 gm PO ACHS #30 day 09/07/20 Review of Systems - Review of Systems Constitutional: States: malaise EENTM: States: no symptoms reported Respiratory: States: no symptoms reported Cardiology: States: chest pain - Due to reflux that she has tasting in the back of her mouth Gastrointestinal/Abdominal: States: abdominal pain Genitourinary: States: no symptoms reported Musculoskeletal: States: see HPI Skin: States: no symptoms reported Neurological: States: headache Endocrine: States: no symptoms reported Hematologic/Lymphatic: States: no symptoms reported All other Systems: No Change from Baseline Past Medical History (General) - Patient Medical History Hx Seizures: No Hx Stroke: No Hx Dementia: No Hx Asthma: Yes Hx of COPD: No Hx Cardiac Disorders: Yes - tachycardia Hx Congestive Heart Failure: No Hx Pacemaker: No Hx Hypertension: No Hx Thyroid Disease: No Hx Diabetes: Yes Hx Gastroesophageal Reflux: Yes Hx Renal Disease: No Hx Cancer: No Hx of HIV: No Hx Hepatitis C: No Hx MRSA: No MRSA Source:: Blood - Vaccination History Hx Tetanus, Diphtheria Vaccination: No Hx Influenza Vaccination: No Hx Pneumococcal Vaccination: Yes - Social History Hx Tobacco Use: Yes - Half pack a day Hx Chewing Tobacco Use: No Hx Alcohol Use: No Hx Substance Use: No Hx Substance Use Treatment: No Hx Depression: Yes Hx Physical Abuse: No Hx Emotional Abuse: No Hx Suspected Abuse: No - Activities of Daily Living Hospice Agency (if applicable):: None - Female History Patient is a Female of Child Bearing Age (10 -59 yrs old): No Hx Last Menstrual Period: 11/05/11 Patient : No Family Medical History - Family History Mother Family History: No Known Name: April Age (years): 70 Living Status: Still Living Hx Family Asthma: No Hx Family Congestive Heart Failure: No Hx Family Hypertension: No Hx Family Stroke: No Hx Cardiac Disease: No Hx Family Diabetes: No Hx Family Cancer: Yes - skin cancer Hx Family;Other: thyroid problems and seizures Father Family History: No Known Name: Marlon Age (years): 68 Living Status: Still Living Hx Family Asthma: - Sister Hx Family Congestive Heart Failure: No Hx Family Hypertension: Yes Hx Family Stroke: No Hx Cardiac Disease: Yes Hx Family Diabetes: No Age of Onset (years of age): 32 Hx Family Cancer: - Grandmother Lymphoma Physical Exam - Physical Exam General Appearance: Alert, No apparent distress Eye Exam: bilateral normal Ears, Nose, Throat: hearing grossly normal, normal pharynx Neck: other - Torticollis looking towards the left Respiratory: lungs clear, normal breath sounds, no respiratory distress, no accessory muscle use Cardiovascular/Chest: normal peripheral pulses, regular rate, rhythm, no edema Peripheral Pulses: radial,right: 2+, radial,left: 2+ Gastrointestinal/Abdominal: soft, other - Mild epigastric discomfort to palpation Rectal Exam: deferred Back Exam: no CVA tenderness, no vertebral tenderness Extremity: non-tender, normal inspection, no pedal edema, normal capillary refill Neurologic: dedenter II-XII nml as tested, alert, normal mood/affect, oriented x 3 Skin Exam: normal color Comments: Vital Signs - 24 hr 09/07/20 09:55 Temperature 98.0 F Pulse Rate [ 89 pulse ox] Respiratory 22 Rate Blood Pressure 130/81 [Left Arm] O2 Sat by Pulse 96 Oximetry Progress - Progress Progress: 09/07/20 11:31 The patient is a 45-year-old female presented emergency room secondary to persistent nausea and vomiting and inability to hold down her medications this morning. She seems to have held down her medications well after dose of Zofran here today. The patient had not been using her Carafate, we will write her for liquid Carafate for 3 times daily use. We will also write her for an iron supplement as her blood levels indicates she is becoming more iron deficient. She does need to discuss with her primary care doctor the possibility of an iron infusion in the near future as this may be causing some of her symptoms. She does need to continue with her Nexium at home. The patient did receive a liter of IV fluids here today for mild dehydration and also to help stabilize that her blood sugars. The patient has an elevated platelet count which needs to be watched with her primary care doctor as well. Source of this is not entirely certain. She did receive a dose of Ambien due to significant insomnia last night. She needs to follow-up with her primary care doctor in the next day or 2. lana anderson [phone] - Results/Orders Results/Orders: 09/07/20 10:13 Telemetry .CONTINUOUS UA [URINALYSIS] Stat 09/07/20 10:15 EKG STAT Laboratory Results - last 24 hr 09/07/20 09/07/20 10:10 10:10 WBC 9.4 RBC 4.86 Hgb 11.2 L Hct 34.2 L MCV 70.3 L MCH 23.0 L MCHC 32.7 L RDW 17.2 H Plt Count 592 H MPV 7.3 L Absolute Neuts (auto) 6.90 H Absolute Lymphs (auto) 1.70 Absolute Monos (auto) 0.50 Absolute Eos (auto) 0.10 Absolute Basos (auto) 0.10 Neutrophils % 74.2 Lymphocytes % 18.4 L Monocytes % 5.6 Eosinophils % 0.6 L Basophils % 1.2 Sodium 134 L Potassium 3.5 L Chloride 102 Carbon Dioxide 16 L Anion Gap 19.5 H BUN 9 Creatinine 0.59 L BUN/Creatinine Ratio 15.3 Random Glucose 192 H D Serum Osmolality 272.1 L Calcium 9.3 Magnesium 1.8 Total Bilirubin 0.6 AST 20 ALT 33 Alkaline Phosphatase 238 H Creatine Kinase 138 CK-MB (CK-2) 1.2 CK-MB (CK-2) % Not Reportable Troponin I < 0.02 B-Natriuretic Peptide 23.5 Serum Total Protein 8.0 Albumin 4.1 Globulin 3.9 H Albumin/Globulin Ratio 1.1 Amylase 34 Lipase 28 Chest x-ray shows no acute pathology. Rapid coronavirus is negative. EKG shows normal sinus rhythm at 87 bpm. Normal axis. Normal R wave progression. No ST segment or T wave changes indicative of acute ischemia. Normal QT interval. Departure - Departure Clinical Impression: Mild dehydration, Esophagitis Disposition: Discharge to Home or Self Care Condition: Fair Departure Forms: ED Discharge - Pt. Copy, Patient Portal Self Enrollment Diet: diabetic diet Activity: increase activity as tolerated Referrals: JUSTINO MARQUEZ IV, ATHLETE MANAGER [Primary Care Provider] - 1-2 Days Prescriptions: Sucralfate Suspension [Carafate Suspension] 1 gm PO ACHS #30 day Iron Combinations [Niferex] 1 tab PO BID #60 tab Home Medications: Ambulatory Orders Buspirone HCl 30 mg PO BID 10/23/18 Gabapentin 300 mg PO TID 11/11/19 tiZANidine [Zanaflex] 12 mg PO Q8H PRN 11/11/19 Ondansetron Odt [Zofran Odt] 8 mg PO Q8H PRN #12 tab 12/25/19 Insulin Glargine [Lantus Solostar] 10 unit SC BEDTIME 01/01/20 Promethazine Tab [Phenergan Tablet] 25 mg PO .Q4H PRN 01/01/20 Clonazepam [Klonopin] 2 mg PO TID 09/07/20 HYDROcodone 10MG/APAP 325MG [[place] 10/325] 1 tab PO Q4HR PRN 09/07/20 Insulin Aspart (with Niacinami [Fiasp] 0 unit SC AC 09/07/20 Iron Combinations [Niferex] 1 tab PO BID #60 tab 09/07/20 Propranolol HCl [Propranolol Hydrochloride] 10 mg PO TID 09/07/20 Sucralfate Suspension [Carafate Suspension] 1 gm PO ACHS #30 day 09/07/20 Additional Instructions: The patient is a 45-year-old female presented emergency room secondary to persistent nausea and vomiting and inability to hold down her medications this morning. She seems to have held down her medications well after dose of Zofran here today. The patient had not been using her Carafate, we will write her for liquid Carafate for 3 times daily use. We will also write her for an iron supplement as her blood levels indicates she is becoming more iron deficient. She does need to discuss with her primary care doctor the possibility of an iron infusion in the near future as this may be causing some of her symptoms. She does need to continue with her Nexium at home. The patient did receive a liter of IV fluids here today for mild dehydration and also to help stabilize that her blood sugars. The patient has an elevated plate let count which needs to be watched with her primary care doctor as well. Source of this is not entirely certain. She did receive a dose of Ambien due to significant insomnia last night. She needs to follow-up with her primary care doctor in the next day or 2.
[2020-09-07] MEDS: SODIUM CHLORIDE 0.9% 1000ML 1,000 ML IVS ONE ×2 (11:34→11:43)
[2020-09-07 11:46] VITALS: BP 121/89; TEMP 98.2; O2SAT 98
== END 2020-09-07 11:45 | disposition home or self-care (01) ==
LOC: ER 09:52
DX: K20.90 Esophagitis, unspecified without bleeding (principal); E86.0 Dehydration; R07.9 Chest pain, unspecified; R51.9 Headache, unspecified; F32.9 Major depressive disorder, single episode, unspecified; K21.9 Gastro-esophageal reflux disease without esophagitis; E11.9 Type 2 diabetes mellitus without complications; J45.909 Unspecified asthma, uncomplicated; Z20.822 Contact with and (suspected) exposure to COVID-19; Z93.4 Other artificial openings of gastrointestinal tract status; Z87.891 Personal history of nicotine dependence; Z79.4 Long term (current) use of insulin; Z79.899 Other long term (current) drug therapy; Z88.8 Allergy status to other drugs, medicaments and biological substances; Z88.6 Allergy status to analgesic agent; Z91.013 Allergy to seafood
CPT/HCPCS: 36415; 71045; 80053; 82150; 82550; 82553; 83690; 83735; 83880; 84484; 85025; 93005; J1885; J7030

== ENCOUNTER 2020-09-11 08:54 | Emergency (ER) | payer MEDICARE, MEDICAID ==
[2020-09-11] MEDS ORDERED: KETOROLAC TROMETHAMINE INJ 30 MG/ML VIAL IV ONE (09:08)
[2020-09-11] MEDS ORDERED: SODIUM CHLORIDE 0.9% 1000ML 1,000 ML IVS ONE (09:08)
--- NOTE | 2020-09-11 09:12 | ED.PDOC ---
History of Present Illness - General Chief Complaint: General Stated Complaint: CP radiating to L shoulder, SOB, N/V, anxiety Time Seen by Provider: 09/11/20 09:05 Source: patient, RN notes reviewed, Vital Signs reviewed, EMS, old records Exam Limitations: no limitations - History of Present Illness Initial Comments: Pt is a 45 yo female with PMH of IDDM who is well known to this ED presents by EMS for 12 hour h/o chest pain, anxiety, N/V. States she has had achy left CP that radiates to left arm since last night. Has been constant. Also reports that she has had an anxiety attack since last night. She has been nauseated and vomited x 2 and unable to hold down her Klonipin. Denies fever, chills, or diarrhea. BG 280 per EMS. Was given 4 mg Zofran and 250 cc NS by EMS COMMUNICATIONS SPECIALIST. Allergies/Adverse Reactions: Allergies Fish Allergy Allergy (Verified 09/11/20 09:13) Haloperidol [From Haldol] Allergy (Verified 09/11/20 09:13) NSAIDs Allergy (Verified 09/11/20 09:13) Prochlorperazine [From Compazine] Allergy (Verified 09/11/20 09:13) Ketorolac Tromethamine [From Toradol] Adverse Reaction (Verified 09/11/20 09:13) Metoclopramide [From Reglan] Adverse Reaction (Verified 09/11/20 09:13) peanut Allergy (Severe, Uncoded 09/07/20 10:08) Home Medications: Ambulatory Orders Buspirone HCl 60 mg PO BID 10/23/18 Gabapentin 300 mg PO TID 11/11/19 tiZANidine [Zanaflex] 12 mg PO Q8H PRN 11/11/19 Ondansetron Odt [Zofran Odt] 8 mg PO Q8H PRN #12 tab 12/25/19 Insulin Glargine [Lantus Solostar] 30 unit SC QAM 01/01/20 Promethazine Tab [Phenergan Tablet] 25 mg PO .Q4H PRN 01/01/20 Clonazepam [Klonopin] 2 mg PO TID 09/07/20 HYDROcodone 10MG/APAP 325MG [[place] 10/325] 1 tab PO Q4HR PRN 09/07/20 Insulin Aspart (with Niacinami [Fiasp] 0 unit SC AC 09/07/20 Iron Combinations [Niferex] 1 tab PO BID #60 tab 09/07/20 Propranolol HCl [Propranolol Hydrochloride] 10 mg PO TID 09/07/20 Sucralfate Suspension [Carafate Suspension] 1 gm PO ACHS #30 day 09/07/20 Review of Systems - Review of Systems Constitutional: Denies: chills, fever, weakness EENTM: Denies: nose congestion, throat pain Respiratory: Denies: cough, short of breath Cardiology: States: chest pain. Denies: palpitations, syncope Gastrointestinal/Abdominal: States: nausea, vomiting. Denies: abdominal pain, diarrhea Musculoskeletal: Denies: back pain, neck pain Neurological: States: anxiety. Denies: headache, numbness Hematologic/Lymphatic: States: no symptoms reported All other Systems: Reviewed and Negative Past Medical History (General) - Patient Medical History Hx Seizures: No Hx Stroke: No Hx Dementia: No Hx Asthma: Yes Hx of COPD: No Hx Cardiac Disorders: Yes - tachycardia Hx Congestive Heart Failure: No Hx Pacemaker: No Hx Hypertension: No Hx Thyroid Disease: No Hx Diabetes: Yes Hx Gastroesophageal Reflux: Yes Hx Renal Disease: No Hx Cancer: No Hx of HIV: No Hx Hepatitis C: No Hx MRSA: No MRSA Source:: Blood - Vaccination History Hx Tetanus, Diphtheria Vaccination: No Hx Influenza Vaccination: No Hx Pneumococcal Vaccination: Yes - Social History Hx Tobacco Use: Yes - Half pack a day Hx Chewing Tobacco Use: No Hx Alcohol Use: No Hx Substance Use: No Hx Substance Use Treatment: No Hx Depression: Yes Hx Physical Abuse: No Hx Emotional Abuse: No Hx Suspected Abuse: No - Female History Hx Last Menstrual Period: 11/05/11 Patient : No Family Medical History - Family History Mother Family History: No Known Name: April Age (years): 70 Living Status: Still Living Hx Family Asthma: No Hx Family Congestive Heart Failure: No Hx Family Hypertension: No Hx Family Stroke: No Hx Cardiac Disease: No Hx Family Diabetes: No Hx Family Cancer: Yes - skin cancer Hx Family;Other: thyroid problems and seizures Father Family History: No Known Name: Marlon Age (years): 68 Living Status: Still Living Hx Family Asthma: - Sister Hx Family Congestive Heart Failure: No Hx Family Hypertension: Yes Hx Family Stroke: No Hx Cardiac Disease: Yes Hx Family Diabetes: No Age of Onset (years of age): 32 Hx Family Cancer: - Grandmother Lymphoma Physical Exam - Physical Exam General Appearance: Alert, Anxious, Other - Appears older than stated age Ears, Nose, Throat: normal pharynx Neck: non-tender, full range of motion, supple, normal inspection Respiratory: chest non-tender, lungs clear, normal breath sounds, no respiratory distress Cardiovascular/Chest: regular rate, rhythm, no edema, no murmur Gastrointestinal/Abdominal: non tender, soft, no pulsatile mass, other - NTTP in all quadrants Back Exam: no CVA tenderness, no vertebral tenderness Extremity: normal range of motion, non-tender, normal inspection Neurologic: no motor/sensory deficits, alert Skin Exam: normal color, warm/dry Progress - Progress Progress: 09/11/20 09:14 DDX: ACS, DKA, dehydration, DASHAWN, drug seeking behavior, UTI 09/11/20 09:41 EKG and troponin show no sign of ischemia. Pt was given zofran by EMS and has had no vomiting in ED. Now tolerating po fluids well. Glucose 260 with normal CO2 and mild elevation of AG. I doubt DKA at this time. I have d/w pt results. She is requesing IV Benadryl to help with her anxiety. Will treat with po Benadryl. I have again d/w pt outpatient follow up for her medical conditions as this is her 13 ED visit in 2020. She feels comfortable going home and will f/u with PCP in 1-2 days for recheck. - Results/Orders Results/Orders: EKG- NSR, rate 89, nml intervals, no ST abnormality 09/11/20 09:08 Sodium Chloride 0.9% 1000ML [Ns 1000 ml] 1,000 ml IVS ONCE EKG Assessment ONCE 09/11/20 09:15 EKG .ONCE Laboratory Results - last 24 hr 09/11/20 09/11/20 09/11/20 08:30 09:22 09:22 WBC 8.8 RBC 5.03 Hgb 11.1 L Hct 35.6 L MCV 70.7 L MCH 22.1 L MCHC 31.2 L RDW 17.6 H Plt Count 501 H MPV 7.7 Absolute Neuts (auto) 6.30 Absolute Lymphs (auto) 1.70 Absolute Monos (auto) 0.60 Absolute Eos (auto) 0.10 Absolute Basos (auto) 0.00 Neutrophils % 71.8 Lymphocytes % 19.8 L Monocytes % 6.7 Eosinophils % 1.3 Basophils % 0.4 Sodium 137 Potassium 3.5 L Chloride 100 L Carbon Dioxide 21 Anion Gap 19.5 H BUN 8 Creatinine 0.50 L BUN/Creatinine Ratio 16.0 Random Glucose 262 H Serum Osmolality 281.2 Calcium 9.4 Total Bilirubin 0.4 AST 24 ALT 21 Alkaline Phosphatase 196 H Troponin I < 0.02 Serum Total Protein 8.1 Albumin 4.0 Globulin 4.1 H Albumin/Globulin Ratio 1.0 L Lipase 28 Urine Color Urine Appearance Urine pH Ur Specific [place] Urine Protein Urine Glucose (UA) Urine Ketones Urine Blood Urine Nitrite Urine Bilirubin Urine Urobilinogen Ur Leukocyte Esterase Urine RBC Urine WBC Ur Epithelial Cells Urine Bacteria 09/11/20 09:26 WBC RBC Hgb Hct MCV MCH MCHC RDW Plt Count MPV Absolute Neuts (auto) Absolute Lymphs (auto) Absolute Monos (auto) Absolute Eos (auto) Absolute Basos (auto) Neutrophils % Lymphocytes % Monocytes % Eosinophils % Basophils % Sodium Potassium Chloride Carbon Dioxide Anion Gap BUN Creatinine BUN/Creatinine Ratio Random Glucose Serum Osmolality Calcium Total Bilirubin AST ALT Alkaline Phosphatase Troponin I Serum Total Protein Albumin Globulin Albumin/Globulin Ratio Lipase Urine Color Yellow Urine Appearance Clear Urine pH 6.0 Ur Specific [place] 1.015 Urine Protein 100 H Urine Glucose (UA) >=1000 H Urine Ketones Negative Urine Blood Small H Urine Nitrite Negative Urine Bilirubin Negative Urine Urobilinogen 0.2 Ur Leukocyte Esterase Negative Urine RBC 3-5 H Urine WBC 0 Ur Epithelial Cells 3-5 Urine Bacteria 0 Departure - Departure Clinical Impression: Atypical chest pain Nausea & vomiting Qualifiers: Vomiting type: unspecified Vomiting Intractability: non-intractable Qualified Code(s): R11.2 - Nausea with vomiting, unspecified Diabetes Qualifiers: Diabetes mellitus type: type 1 Diabetes mellitus complication status: with hyperglycemia Qualified Code(s): E10.65 - Type 1 diabetes mellitus with hyperglycemia Time of Disposition: 09:40 Disposition: Discharge to Home or Self Care Condition: Good Departure Forms: ED Discharge - Pt. Copy, Patient Portal Self Enrollment Instructions: Chest Pain (DC) Diet: resume usual diet Activity: increase activity as tolerated Referrals: JUSTINO MARQUEZ IV PREVENTION RN [Primary Care Provider] - 1-2 Days Home Medications: Ambulatory Orders Buspirone HCl 60 mg PO BID 10/23/18 Gabapentin 300 mg PO TID 11/11/19 tiZANidine [Zanaflex] 12 mg PO Q8H PRN 11/11/19 Ondansetron Odt [Zofran Odt] 8 mg PO Q8H PRN #12 tab 12/25/19 Insulin Glargine [Lantus Solostar] 30 unit SC QAM 01/01/20 Promethazine Tab [Phenergan Tablet] 25 mg PO .Q4H PRN 01/01/20 Clonazepam [Klonopin] 2 mg PO TID 09/07/20 HYDROcodone 10MG/APAP 325MG [[place] 10/325] 1 tab PO Q4HR PRN 09/07/20 Insulin Aspart (with Niacinami [Fiasp] 0 unit SC AC 09/07/20 Iron Combinations [Niferex] 1 tab PO BID #60 tab 09/07/20 Propranolol HCl [Propranolol Hydrochloride] 10 mg PO TID 09/07/20 Sucralfate Suspension [Carafate Suspension] 1 gm PO ACHS #30 day 09/07/20
[2020-09-11] MEDS ORDERED: diphenhydrAMINE HCL 25 MG CAP PO ONE (09:38)
[2020-09-11 10:03] VITALS: BP 130/88; TEMP 98.1; O2SAT 98
== END 2020-09-11 10:00 | disposition home or self-care (01) ==
LOC: ER 08:54
DX: R07.89 Other chest pain (principal); R11.2 Nausea with vomiting, unspecified; E10.65 Type 1 diabetes mellitus with hyperglycemia; K21.9 Gastro-esophageal reflux disease without esophagitis; F32.9 Major depressive disorder, single episode, unspecified; F41.9 Anxiety disorder, unspecified; Z79.4 Long term (current) use of insulin; Z79.899 Other long term (current) drug therapy; Z88.8 Allergy status to other drugs, medicaments and biological substances; Z91.013 Allergy to seafood; Z87.891 Personal history of nicotine dependence; Z88.6 Allergy status to analgesic agent
CPT/HCPCS: 36415; 80053; 81001; 83690; 84484; 85025; 93005; J1885; J7030; Q0163

== ENCOUNTER 2020-09-15 14:24 | Emergency (ER) | payer MEDICARE, MEDICAID ==
[2020-09-15] MEDS ORDERED: INSULIN LISPRO 100 UNITS/ML PEN SUBCU ONE ×2 (15:37→18:02)
[2020-09-15] MEDS ORDERED: SODIUM CHLORIDE 0.9% 1000ML 500 ML IVS ONE (15:40)
[2020-09-15] MEDS ORDERED: PANTOPRAZOLE SODIUM IV 40 MG VIAL IV ONE (15:41)
[2020-09-15] MEDS ORDERED: ONDANSETRON INJ 4 MG/2 ML VIAL IV ONE (15:41)
--- NOTE | 2020-09-15 15:43 | RAD ---
3 radiographs of the chest and abdomen Indication: nv Comparison: September 02, 2020 Impression: Stable portable. No pneumothorax. Heart size normal. Minimal bibasilar atelectasis versus pneumonia. Cholecystectomy clips. No free air in the diaphragm. Indeterminate tubing projects over the lower abdomen and left lower quadrant Mild constipation. No findings of small bowel obstruction. No acute osseous abnormality. Electronically signed by: German Garza MD 09/15/2020 3:41 PM SOLAR SALES REPRESENTATIVE AND ASSESSOR
[2020-09-15] MEDS ORDERED: KETOROLAC TROMETHAMINE INJ 30 MG/ML VIAL IM ONE (17:43)
[2020-09-15] MEDS ORDERED: SUCRALFATE 1 GM/10 ML 1 GM UD PO ONE (17:43)
[2020-09-15] MEDS ORDERED: diphenhydrAMINE HCL 25 MG CAP PO ONE (18:53)
--- NOTE | 2020-09-15 18:55 | ED.PDOC ---
History of Present Illness - General Chief Complaint: GI Problem Time Seen by Provider: 09/15/20 15:00 Source: patient Exam Limitations: no limitations - History of Present Illness Initial Comments: The patient is a 45-year-old female presented emergency room secondary to reports of nausea vomiting abdominal cramping. The patient is very well- known to the emergency room. The patient does have true GI and diabetic problems however she also has a longstanding history of drug-seeking behavior. The patient does look a little more dehydrated than normal. Blood sugar is moderately elevated for her in the 300s. No evidence of any ketones on the urine to indicate DKA. She has not actually vomited since her arrival here. The patient is alert and oriented. No definite guarding. No fever. Vital signs are stable. No significant torticollis on exam today. Timing/Duration: other - 3 days according to her Severity: moderate Improving Factors: nothing Worsening Factors: eating Associated Symptoms: loss of appetite, malaise, nausea/vomiting Allergies/Adverse Reactions: Allergies Fish Allergy Allergy (Verified 09/11/20 09:13) Haloperidol [From Haldol] Allergy (Verified 09/11/20 09:13) NSAIDs Allergy (Verified 09/11/20 09:13) Prochlorperazine [From Compazine] Allergy (Verified 09/11/20 09:13) Ketorolac Tromethamine [From Toradol] Adverse Reaction (Verified 09/11/20 09:13) Metoclopramide [From Reglan] Adverse Reaction (Verified 09/11/20 09:13) peanut Allergy (Severe, Uncoded 09/07/20 10:08) Home Medications: Ambulatory Orders Buspirone HCl 60 mg PO BID 10/23/18 Gabapentin 300 mg PO TID 11/11/19 tiZANidine [Zanaflex] 12 mg PO Q8H PRN 11/11/19 Ondansetron Odt [Zofran Odt] 8 mg PO Q8H PRN #12 tab 12/25/19 Insulin Glargine [Lantus Solostar] 30 unit SC QAM 01/01/20 Promethazine Tab [Phenergan Tablet] 25 mg PO .Q4H PRN 01/01/20 Clonazepam [Klonopin] 2 mg PO TID 09/07/20 HYDROcodone 10MG/APAP 325MG [[place] 10/325] 1 tab PO Q4HR PRN 09/07/20 Insulin Aspart (with Niacinami [Fiasp] 0 unit SC AC 09/07/20 Iron Combinations [Niferex] 1 tab PO BID #60 tab 09/07/20 Propranolol HCl [Propranolol Hydrochloride] 10 mg PO TID 09/07/20 Sucralfate Suspension [Carafate Suspension] 1 gm PO ACHS #30 day 09/07/20 Review of Systems - Review of Systems Constitutional: States: malaise EENTM: States: no symptoms reported Respiratory: States: no symptoms reported Cardiology: States: no symptoms reported Gastrointestinal/Abdominal: States: abdominal pain, nausea, vomiting Genitourinary: States: no symptoms reported Musculoskeletal: States: no symptoms reported Skin: States: no symptoms reported Neurological: States: no symptoms reported Endocrine: States: no symptoms reported All other Systems: No Change from Baseline Past Medical History (General) - Patient Medical History Hx Seizures: No Hx Stroke: No Hx Dementia: No Hx Asthma: Yes Hx of COPD: No Hx Cardiac Disorders: Yes - tachycardia Hx Congestive Heart Failure: No Hx Pacemaker: No Hx Hypertension: No Hx Thyroid Disease: No Hx Diabetes: Yes Hx Gastroesophageal Reflux: Yes Hx Renal Disease: No Hx Cancer: No Hx of HIV: No Hx Hepatitis C: No Hx MRSA: No MRSA Source:: Blood - Vaccination History Hx Tetanus, Diphtheria Vaccination: No Hx Influenza Vaccination: No Hx Pneumococcal Vaccination: Yes - Social History Hx Tobacco Use: Yes - Half pack a day Hx Chewing Tobacco Use: No Hx Alcohol Use: No Hx Substance Use: No Hx Substance Use Treatment: No Hx Depression: Yes Hx Physical Abuse: No Hx Emotional Abuse: No Hx Suspected Abuse: No - Female History Hx Last Menstrual Period: 11/05/11 Patient : No Family Medical History - Family History Mother Family History: No Known Name: April Age (years): 70 Living Status: Still Living Hx Family Asthma: No Hx Family Congestive Heart Failure: No Hx Family Hypertension: No Hx Family Stroke: No Hx Cardiac Disease: No Hx Family Diabetes: No Hx Family Cancer: Yes - skin cancer Hx Family;Other: thyroid problems and seizures Father Family History: No Known Name: Marlon Age (years): 68 Living Status: Still Living Hx Family Asthma: - Sister Hx Family Congestive Heart Failure: No Hx Family Hypertension: Yes Hx Family Stroke: No Hx Cardiac Disease: Yes Hx Family Diabetes: No Age of Onset (years of age): 32 Hx Family Cancer: - Grandmother Lymphoma Physical Exam - Physical Exam General Appearance: Alert, No apparent distress Eye Exam: bilateral normal Ears, Nose, Throat: hearing grossly normal, normal pharynx Neck: full range of motion, supple Respiratory: lungs clear, normal breath sounds, no respiratory distress, no accessory muscle use Cardiovascular/Chest: normal peripheral pulses, regular rate, rhythm, no edema Peripheral Pulses: radial,right: 2+, radial,left: 2+ Gastrointestinal/Abdominal: non tender - Surgical sites noted, soft Rectal Exam: deferred Back Exam: no CVA tenderness, no vertebral tenderness Extremity: non-tender, normal inspection, no pedal edema, normal capillary refill 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 She does have mild dehydration a very mild lactic acidosis. The patient received a liter of IV fluids for this. The patient has received a dose of Carafate, Protonix and Zofran. Additionally she has received a dose of Toradol and oral hydrocodone as well as a dose of oral Benadryl here. Symptoms appear to be improving. The patient received 5 units of insulin lispro for a moderately elevated glucose. No evidence of DKA. She does need to follow her blood sugars closely. She understands this. The patient will be discharged home. Follow-up with primary care doctor later this week. lana anderson [phone] 09/15/20 18:59 - Results/Orders Results/Orders: Acute abdominal series appears largely benign. Laboratory Tests 09/15/20 09/15/20 09/15/20 15:09 16:05 16:05 WBC 5.1 RBC 4.55 Hgb 10.6 L Hct 32.8 L MCV 72.1 L MCH 23.3 L MCHC 32.3 L RDW 17.1 H Plt Count 374 MPV 8.1 Absolute Neuts (auto) 2.70 Absolute Lymphs (auto) 1.90 Absolute Monos (auto) 0.30 Absolute Eos (auto) 0.20 Absolute Basos (auto) 0.10 Neutrophils % 51.9 Lymphocytes % 37.6 Monocytes % 5.7 Eosinophils % 2.9 Basophils % 1.9 Sodium 141 Potassium 4.0 Chloride 106 Carbon Dioxide 25 Anion Gap 14.0 BUN 17 Creatinine 0.55 L BUN/Creatinine Ratio 30.9 H POC Glucose 328 H Random Glucose 386 H Serum Osmolality 298.8 H Lactic Acid Calcium 8.7 Magnesium 1.9 Total Bilirubin 0.4 AST 17 ALT 16 Alkaline Phosphatase 207 H Serum Total Protein 7.2 Albumin 3.5 Globulin 3.7 H Albumin/Globulin Ratio 0.9 L Amylase 74 Lipase 41 D Urine Color Urine Appearance Urine pH Ur Specific [place] Urine Protein Urine Glucose (UA) Urine Ketones Urine Blood Urine Nitrite Urine Bilirubin Urine Urobilinogen Ur Leukocyte Esterase Urine RBC Urine WBC Ur Epithelial Cells Amorphous Sediment Urine Bacteria 09/15/20 09/15/20 09/15/20 16:05 17:35 18:14 WBC RBC Hgb Hct MCV MCH MCHC RDW Plt Count MPV Absolute Neuts (auto) Absolute Lymphs (auto) Absolute Monos (auto) Absolute Eos (auto) Absolute Basos (auto) Neutrophils % Lymphocytes % Monocytes % Eosinophils % Basophils % Sodium Potassium Chloride Carbon Dioxide Anion Gap BUN Creatinine BUN/Creatinine Ratio POC Glucose 347 H Random Glucose Serum Osmolality Lactic Acid 2.5 H* Calcium Magnesium Total Bilirubin AST ALT Alkaline Phosphatase Serum Total Protein Albumin Globulin Albumin/Globulin Ratio Amylase Lipase Urine Color Yellow Urine Appearance Cloudy H Urine pH 6.0 Ur Specific [place] 1.020 Urine Protein Negative Urine Glucose (UA) >=1000 H Urine Ketones Negative Urine Blood Negative Urine Nitrite Negative Urine Bilirubin Negative Urine Urobilinogen 0.2 Ur Leukocyte Esterase Negative Urine RBC 0 Urine WBC 1-3 Ur Epithelial Cells >50 Amorphous Sediment 2+ Urine Bacteria 1+ Departure - Departure Clinical Impression: Dehydration, Cyclical vomiting with nausea Hyperglycemia due to type 2 diabetes mellitus Qualifiers: Diabetes mellitus retirement 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 Copy, Patient Portal Self Enrollment Instructions: Nausea and Vomiting, Adult Diet: bland diet, diabetic diet Activity: increase activity as tolerated Referrals: JUSTINO MARQUEZ IV, [employer] FI[employer]HTER [Primary Care Provider] - 1-2 Weeks Home Medications: Ambulatory Orders Buspirone HCl 60 mg PO BID 10/23/18 Gabapentin 300 mg PO TID 11/11/19 tiZANidine [Zanaflex] 12 mg PO Q8H PRN 11/11/19 Ondansetron Odt [Zofran Odt] 8 mg PO Q8H PRN #12 tab 12/25/19 Insulin Glargine [Lantus Solostar] 30 unit SC QAM 01/01/20 Promethazine Tab [Phenergan Tablet] 25 mg PO .Q4H PRN 01/01/20 Clonazepam [Klonopin] 2 mg PO TID 09/07/20 HYDROcodone 10MG/APAP 325MG [[place] 10/325] 1 tab PO Q4HR PRN 09/07/20 Insulin Aspart (with Niacinami [Fiasp] 0 unit SC AC 09/07/20 Iron Combinations [Niferex] 1 tab PO BID #60 tab 09/07/20 Propranolol HCl [Propranolol Hydrochloride] 10 mg PO TID 09/07/20 Sucralfate Suspension [Carafate Suspension] 1 gm PO ACHS #30 day 09/07/20 Additional Instructions: The patient is a 45-year-old female presented emergency room secondary to reports of nausea vomiting abdominal pain. She does have mild dehydration a very mild lactic acidosis. The patient received a liter of IV fluids for this. The patient has received a dose of Carafate, Protonix and Zofran. Additionally she has received a dose of Toradol and oral hydrocodone as well as a dose of oral Benadryl here. The patient received 5 units of insulin lispro for a moderately elevated glucose. She does need to follow her blood sugars closely. No evidence of DKA today. Symptoms appear to be improving. The patient will be discharged home. Follow-up with primary care doctor later this week.
[2020-09-15] MEDS ORDERED: HYDROcodone 10MG/APAP 325MG 1 EA TAB PO ONE (19:03)
[2020-09-15 19:16] VITALS: BP 113/70; TEMP 98; O2SAT 97
== END 2020-09-15 19:18 | disposition home or self-care (01) ==
LOC: ER 14:24
DX: R11.15 Cyclical vomiting syndrome unrelated to migraine (principal); E86.0 Dehydration; E11.65 Type 2 diabetes mellitus with hyperglycemia; F32.9 Major depressive disorder, single episode, unspecified; K21.9 Gastro-esophageal reflux disease without esophagitis; J45.909 Unspecified asthma, uncomplicated; Z79.4 Long term (current) use of insulin; Z87.891 Personal history of nicotine dependence; Z79.899 Other long term (current) drug therapy; Z91.013 Allergy to seafood; Z88.5 Allergy status to narcotic agent; Z88.6 Allergy status to analgesic agent; Z88.8 Allergy status to other drugs, medicaments and biological substances
CPT/HCPCS: 36415; 36416; 74019; 80053; 81001; 82150; 82948; 83605; 83690; 83735; 85025; J1815; J1885; J2405; J7030; Q0163

== ENCOUNTER 2020-09-18 00:43 | Emergency (ER) | payer MEDICARE, MEDICAID ==
--- NOTE | 2020-09-18 01:09 | ED.PDOC ---
History of Present Illness - General Chief Complaint: Trauma Stated Complaint: fall Time Seen by Provider: 09/18/20 00:55 Source: patient, RN notes reviewed, Vital Signs reviewed, EMS notes reviewed Exam Limitations: no limitations - History of Present Illness Initial Comments: This is a 45-year-old female with history of poorly controlled diabetes, gastroparesis presenting to the emergency department after a fall today. Patient states that she is not sure what time she fell, does not know how long she was on the ground. Primary complaints are right shoulder, right elbow pain, right hip pain. She was unable to stand up and walk after the fall. She states she has been nauseated today and is concerned that she is dehydrated. Allergies/Adverse Reactions: Allergies Fish Allergy Allergy (Verified 09/11/20 09:13) Haloperidol [From Haldol] Allergy (Verified 09/11/20 09:13) NSAIDs Allergy (Verified 09/11/20 09:13) Prochlorperazine [From Compazine] Allergy (Verified 09/11/20 09:13) Ketorolac Tromethamine [From Toradol] Adverse Reaction (Verified 09/11/20 09:13) Metoclopramide [From Reglan] Adverse Reaction (Verified 09/11/20 09:13) peanut Allergy (Severe, Uncoded 09/07/20 10:08) Home Medications: Ambulatory Orders Buspirone HCl 60 mg PO BID 10/23/18 Gabapentin 300 mg PO TID 11/11/19 tiZANidine [Zanaflex] 12 mg PO Q8H PRN 11/11/19 Ondansetron Odt [Zofran Odt] 8 mg PO Q8H PRN #12 tab 12/25/19 Insulin Glargine [Lantus Solostar] 30 unit SC QAM 01/01/20 Promethazine Tab [Phenergan Tablet] 25 mg PO .Q4H PRN 01/01/20 Clonazepam [Klonopin] 2 mg PO TID 09/07/20 HYDROcodone 10MG/APAP 325MG [[place] 10/325] 1 tab PO Q4HR PRN 09/07/20 Insulin Aspart (with Niacinami [Fiasp] 0 unit SC AC 09/07/20 Iron Combinations [Niferex] 1 tab PO BID #60 tab 09/07/20 Propranolol HCl [Propranolol Hydrochloride] 10 mg PO TID 09/07/20 Sucralfate Suspension [Carafate Suspension] 1 gm PO ACHS #30 day 09/07/20 Review of Systems - Review of Systems Constitutional: Denies: chills, fever EENTM: Denies: nose congestion Respiratory: Denies: cough, short of breath Cardiology: Denies: edema, syncope Gastrointestinal/Abdominal: States: nausea. Denies: abdominal pain, diarrhea, vomiting Genitourinary: Denies: dysuria, hematuria Musculoskeletal: States: back pain, joint pain, muscle pain. Denies: neck pain Skin: Denies: lesions, rash Neurological: States: headache. Denies: paresthesia, tremors Endocrine: States: no symptoms reported Hematologic/Lymphatic: States: no symptoms reported Past Medical History (General) - Patient Medical History Hx Seizures: No Hx Stroke: No Hx Dementia: No Hx Asthma: Yes Hx of COPD: No Hx Cardiac Disorders: Yes - tachycardia Hx Congestive Heart Failure: No Hx Pacemaker: No Hx Hypertension: No Hx Thyroid Disease: No Hx Diabetes: Yes Hx Gastroesophageal Reflux: Yes Hx Renal Disease: No Hx Cancer: No Hx of HIV: No Hx Hepatitis C: No Hx MRSA: No MRSA Source:: Blood - Vaccination History Hx Tetanus, Diphtheria Vaccination: No Hx Influenza Vaccination: No Hx Pneumococcal Vaccination: Yes - Social History Hx Tobacco Use: Yes - Half pack a day Hx Chewing Tobacco Use: No Hx Alcohol Use: No Hx Substance Use: No Hx Substance Use Treatment: No Hx Depression: Yes Hx Physical Abuse: No Hx Emotional Abuse: No Hx Suspected Abuse: No - Female History Hx Last Menstrual Period: 11/05/11 Patient : No Family Medical History - Family History Mother Family History: No Known Name: April Age (years): 70 Living Status: Still Living Hx Family Asthma: No Hx Family Congestive Heart Failure: No Hx Family Hypertension: No Hx Family Stroke: No Hx Cardiac Disease: No Hx Family Diabetes: No Hx Family Cancer: Yes - skin cancer Hx Family;Other: thyroid problems and seizures Father Family History: No Known Name: Marlon Age (years): 68 Living Status: Still Living Hx Family Asthma: - Sister Hx Family Congestive Heart Failure: No Hx Family Hypertension: Yes Hx Family Stroke: No Hx Cardiac Disease: Yes Hx Family Diabetes: No Age of Onset (years of age): 32 Hx Family Cancer: - Grandmother Lymphoma Physical Exam - Physical Exam General Appearance: Other - Chronically ill-appearing, poorly kempt Head Injury: other - There is mild swelling over the right maxilla, no ZMC tenderness, midface stable, nose normal. Eye Exam: bilateral normal ENT Exam: no evidence of ENT injury, other - No hemotympanum, nose normal Neck Exam: non-tender, full range of motion, normal alignment, normal inspection Cardiovascular/Respiratory: regular rate, rhythm, no M/R/G, normal peripheral pulses Gastrointestinal/Abdominal: non tender, soft, other Back Exam: normal inspection, no CVA tenderness, other - PEG tube in the left upper quadrant, stoma is clean dry and intact Extremity Exam: pelvis stable, other - tender over the right hip, right elbow, right shoulder. There is no swelling, no deformities, no ecchymosis Neurologic: no motor/sensory deficits, alert, normal mood/affect, oriented x 3 Skin Exam: normal color, warm/dry - Myra Coma Score Best Eye Response (Danny): (4) open spontaneously Best Verbal Response (Myra): (5) oriented Best Motor Response (Myra): (6) obeys commands Progress - Progress Progress: 09/18/20 01:10 This patient is well-known to me and to the emergency department in general. This is her 15th ER visit in 2020. She was just seen in the emergency department 3 days ago and had normal work-up at that time. She has longstanding history of drug-seeking behavior. Her vital signs and exam do not appear consistent with DKA or severe dehydration. Her oropharynx is clear, mucous membranes are moist. I explained my plan to obtain x-rays of her injured areas, but will give no pain medication unless an injury indicates need. I offered p.o. Zofran for her nausea, which is chronic (pt has had no vomiting in the emergency department). Patient refused. 09/18/20 02:14 Rechecked. Patient now moving right arm without difficulty. Full range of motion of the hip. GCS 15. Discussed x-ray/CT findings. Discussed plan for discharge home. Recommended patient continue taking her medications as prescribed. DDx: Fracture, contusion, sprain, closed head injury MDM: Patient with longstanding history of drug-seeking behavior, poorly controlled diabetes, and chronic gastroparesis. Patient reports fall and has mild swelling of the right maxillary area as well as pain over the right shoulder, right elbow, right hip. X-rays are negative, CT head negative. Patient does not appear dehydrated, vital signs normal. No indication for further work-up at this time. Recommended she follow-up with PCP in 3 to 5 days. Matthew TabathaKristen Garcia DO [facility] #[id number] - Results/Orders Results/Orders: EXAM: CT Head Without Intravenous Contrast CLINICAL HISTORY: The patient is 45 years old and is Female; fall, head injury TECHNIQUE: Axial computed tomography images of the head/brain without intravenous contrast. Sagittal and coronal reformatted images were created and reviewed. This CT exam was performed using one or more of the following dose reduction techniques: automated exposure control, adjustment of the mA and/or kV according to patient size, and/or use of iterative reconstruction technique. COMPARISON: No relevant prior studies available. FINDINGS: Examination is limited by motion artifact. BRAIN: Unremarkable. The madrigal-white matter differentiation is preserved . No hemorrhage. No significant white matter disease. No edema. No extra-axial fluid collections. VENTRICLES: Unremarkable. No ventriculomegaly. BONES/JOINTS: No acute fracture. SOFT TISSUES: Unremarkable. SINUSES: Unremarkable as visualized. No acute sinusitis. MASTOID AIR CELLS: Unremarkable as visualized. No mastoid effusion. ORBITS: Unremarkable as visualized. IMPRESSION: No acute intracranial findings. Electronically signed by: Ramona Reed MD 09/18/2020 2:00 AM Right shoulder x-ray reviewed personally by me at 1:40 AM. No fracture, no dislocation. Right elbow x-ray reviewed personally by me at 1:40 AM. No fracture, no dislocation. Pelvis x-ray reviewed personally by me at 1:41 AM. No fracture Departure - Departure Clinical Impression: Fall at home, Closed head injury, Contusion of shoulder, Contusion, elbow, Contusion, hip Disposition: Discharge to Home or Self Care Condition: Good Departure Forms: ED Discharge - Pt. Copy, Patient Portal Self Enrollment Instructions: DI for Trauma, Minor Contusion ED Referrals: JUSTINO MARQUEZ IV, CENTER MACHINE OPERATOR [Primary Care Provider] - 1-5 Days Home Medications: Ambulatory Orders Buspirone HCl 60 mg PO BID 10/23/18 Gabapentin 300 mg PO TID 11/11/19 tiZANidine [Zanaflex] 12 mg PO Q8H PRN 11/11/19 Ondansetron Odt [Zofran Odt] 8 mg PO Q8H PRN #12 tab 12/25/19 Insulin Glargine [Lantus Solostar] 30 unit SC QAM 01/01/20 Promethazine Tab [Phenergan Tablet] 25 mg PO .Q4H PRN 01/01/20 Clonazepam [Klonopin] 2 mg PO TID 09/07/20 HYDROcodone 10MG/APAP 325MG [[place] 10/325] 1 tab PO Q4HR PRN 09/07/20 Insulin Aspart (with Niacinami [Fiasp] 0 unit SC AC 09/07/20 Iron Combinations [Niferex] 1 tab PO BID #60 tab 09/07/20 Propranolol HCl [Propranolol Hydrochloride] 10 mg PO TID 09/07/20 Sucralfate Suspension [Carafate Suspension] 1 gm PO ACHS #30 day 09/07/20
[2020-09-18 01:31] VITALS: O2SAT 98
--- NOTE | 2020-09-18 02:02 | CT ---
EXAM: CT Head Without Intravenous Contrast CLINICAL HISTORY: The patient is 45 years old and is Female; fall, head injury TECHNIQUE: Axial computed tomography images of the head/brain without intravenous contrast. Sagittal and coronal reformatted images were created and reviewed. This CT exam was performed using one or more of the following dose reduction techniques: automated exposure control, adjustment of the mA and/or kV according to patient size, and/or use of iterative reconstruction technique. COMPARISON: No relevant prior studies available. FINDINGS: Examination is limited by motion artifact. BRAIN: Unremarkable. The madrigal-white matter differentiation is preserved . No hemorrhage. No significant white matter disease. No edema. No extra-axial fluid collections. VENTRICLES: Unremarkable. No ventriculomegaly. BONES/JOINTS: No acute fracture. SOFT TISSUES: Unremarkable. SINUSES: Unremarkable as visualized. No acute sinusitis. MASTOID AIR CELLS: Unremarkable as visualized. No mastoid effusion. ORBITS: Unremarkable as visualized. IMPRESSION: No acute intracranial findings. Electronically signed by: Ramona Reed MD 09/18/2020 2:00 AM [facility]
--- NOTE | 2020-09-18 02:03 | RAD ---
EXAM: XR Pelvis, 1 or 2 Views CLINICAL HISTORY: The patient is 45 years old and is Female; fall, injury TECHNIQUE: Frontal view of the pelvis. COMPARISON: Radiograph April 07, 2020 FINDINGS: BONES/JOINTS: The femoral heads are well located. The SI joints and pubic symphysis are intact without evidence of diastases. No acute fracture. No dislocation. SOFT TISSUES: Unremarkable. IMPRESSION: No acute findings in the pelvis. Electronically signed by: Ramona Reed MD 09/18/2020 2:01 AM [facility]
--- NOTE | 2020-09-18 02:03 | RAD ---
EXAM: XR Right Elbow, 2 Views CLINICAL HISTORY: The patient is 45 years old and is Female; fall TECHNIQUE: Frontal and lateral views of the right elbow. COMPARISON: No relevant prior studies available. FINDINGS: BONES/JOINTS: Unremarkable. No acute fracture. No dislocation. SOFT TISSUES: Unremarkable. IMPRESSION: Normal right elbow radiographs. Electronically signed by: Ramona Reed MD 09/18/2020 2:01 AM [facility]
--- NOTE | 2020-09-18 02:03 | RAD ---
EXAM: XR Right Shoulder Complete, 2 or More Views CLINICAL HISTORY: The patient is 45 years old and is Female; fall TECHNIQUE: Two or more views of the right shoulder. COMPARISON: No relevant prior studies available. FINDINGS: BONES/JOINTS: Unremarkable. No acute fracture. No dislocation. SOFT TISSUES: Unremarkable. TUBES, LINES AND DEVICES: A right chest port is present with the tip in the SVC. IMPRESSION: No acute findings in the right shoulder. Electronically signed by: Ramona Reed MD 09/18/2020 2:02 AM [facility]
[2020-09-18] MEDS ORDERED: ALUM & MAG HYDROX-SIMETHICONE 30 ML, LIDOCAINE VISCOUS 2% 15 ML PO ONE ×2 (02:15)
[2020-09-18] MEDS ORDERED: LIDOCAINE HCL 2% (MOUTH-THROAT) 15 ML UD ONE (02:17)
[2020-09-18] MEDS ORDERED: ALUM & MAG HYDROX-SIMETHICONE 30 ML UD ONE (02:17)
[2020-09-18 02:24] VITALS: BP 111/67; TEMP 97.8
== END 2020-09-18 02:24 | disposition home or self-care (01) ==
LOC: ER 00:43
DX: S09.90XA Unspecified injury of head, initial encounter (principal); S50.01XA Contusion of right elbow, initial encounter; S40.011A Contusion of right shoulder, initial encounter; S70.01XA Contusion of right hip, initial encounter; R11.0 Nausea; E11.9 Type 2 diabetes mellitus without complications; J45.909 Unspecified asthma, uncomplicated; K21.9 Gastro-esophageal reflux disease without esophagitis; F32.9 Major depressive disorder, single episode, unspecified; Z79.899 Other long term (current) drug therapy; Z87.891 Personal history of nicotine dependence; Z79.4 Long term (current) use of insulin; Z91.013 Allergy to seafood; Z88.8 Allergy status to other drugs, medicaments and biological substances; Z88.6 Allergy status to analgesic agent; W18.30XA Fall on same level, unspecified, initial encounter; Y92.9 Unspecified place or not applicable

== ENCOUNTER 2020-09-19 17:42 | Emergency (ER) | payer MEDICARE, MEDICAID ==
[2020-09-19 17:59] VITALS: O2SAT 99
--- NOTE | 2020-09-19 18:04 | ED.PDOC ---
History of Present Illness - General Chief Complaint: Allergic Reaction Stated Complaint: allergic reaction to wool Time Seen by Provider: 09/19/20 17:46 Source: patient Exam Limitations: no limitations - History of Present Illness Initial Comments: The patient is a 45-year-old female presented emergency room secondary to reports of a allergic dermatitis secondary to using a wool blanket. The patient reports that she is allergic to wool. She does appear to be scratching her extremities and at her chest. Voice is clear. No respiratory distress. She has mildly tachycardic. She did receive a dose of IV Benadryl with EMS. No wheezing. No respiratory compromise. Oropharynx is clear. The patient is already a little bit drowsy. Within literally 30 seconds of seeing me she is already asking for IV opiate medications and an IV Benadryl push. There is no vomiting. Blood sugar checked by EMS is around 350. The patient is mildly tachycardic which is not really new. I see no hives. Timing/Duration: 1-3 hours Severity: mild Improving Factors: nothing Worsening Factors: nothing Associated Symptoms: malaise Allergies/Adverse Reactions: Allergies Fish Allergy Allergy (Verified 09/11/20 09:13) Haloperidol [From Haldol] Allergy (Verified 09/11/20 09:13) NSAIDs Allergy (Verified 09/11/20 09:13) Prochlorperazine [From Compazine] Allergy (Verified 09/11/20 09:13) Ketorolac Tromethamine [From Toradol] Adverse Reaction (Verified 09/11/20 09:13) Metoclopramide [From Reglan] Adverse Reaction (Verified 09/11/20 09:13) peanut Allergy (Severe, Uncoded 09/07/20 10:08) Home Medications: Ambulatory Orders Buspirone HCl 60 mg PO BID 10/23/18 Gabapentin 300 mg PO TID 11/11/19 tiZANidine [Zanaflex] 12 mg PO Q8H PRN 11/11/19 Ondansetron Odt [Zofran Odt] 8 mg PO Q8H PRN #12 tab 12/25/19 Insulin Glargine [Lantus Solostar] 30 unit SC QAM 01/01/20 Promethazine Tab [Phenergan Tablet] 25 mg PO .Q4H PRN 05/29/20 Clonazepam [Klonopin] 2 mg PO TID 09/07/20 HYDROcodone 10MG/APAP 325MG [[place] 10/325] 1 tab PO Q4HR PRN 09/07/20 Insulin Aspart (with Niacinami [Fiasp] 0 unit SC AC 09/07/20 Iron Combinations [Niferex] 1 tab PO BID #60 tab 09/07/20 Propranolol HCl [Propranolol Hydrochloride] 10 mg PO TID 09/07/20 Sucralfate Suspension [Carafate Suspension] 1 gm PO ACHS #30 day 09/07/20 Review of Systems - Review of Systems Constitutional: States: malaise EENTM: States: no symptoms reported Respiratory: States: no symptoms reported Cardiology: States: no symptoms reported Gastrointestinal/Abdominal: States: nausea Genitourinary: States: no symptoms reported Musculoskeletal: States: see HPI - Chronic back pain Skin: States: no symptoms reported - Itching Neurological: States: anxiety Endocrine: States: no symptoms reported All other Systems: No Change from Baseline Past Medical History (General) - Patient Medical History Hx Seizures: No Hx Stroke: No Hx Dementia: No Hx Asthma: Yes Hx of COPD: No Hx Cardiac Disorders: Yes - tachycardia Hx Congestive Heart Failure: No Hx Pacemaker: No Hx Hypertension: No Hx Thyroid Disease: No Hx Diabetes: Yes Hx Gastroesophageal Reflux: Yes Hx Renal Disease: No Hx Cancer: No Hx of HIV: No Hx Hepatitis C: No Hx MRSA: No MRSA Source:: Blood Surgical History: appendectomy, cholecystectomy, Hysterectomy, other - Vaccination History Hx Tetanus, Diphtheria Vaccination: No Hx Influenza Vaccination: No Hx Pneumococcal Vaccination: Yes - Social History Hx Tobacco Use: Yes - Half pack a day Hx Chewing Tobacco Use: No Hx Alcohol Use: No Hx Substance Use: No Hx Substance Use Treatment: No Hx Depression: Yes Hx Physical Abuse: No Hx Emotional Abuse: No Hx Suspected Abuse: No - Female History Hx Last Menstrual Period: 11/05/11 Patient : No Family Medical History - Family History Mother Family History: No Known Name: April Age (years): 70 Living Status: Still Living Hx Family Asthma: No Hx Family Congestive Heart Failure: No Hx Family Hypertension: No Hx Family Stroke: No Hx Cardiac Disease: No Hx Family Diabetes: No Hx Family Cancer: Yes - skin cancer Hx Family;Other: thyroid problems and seizures Father Family History: No Known Name: Marlon Age (years): 68 Living Status: Still Living Hx Family Asthma: - Sister Hx Family Congestive Heart Failure: No Hx Family Hypertension: Yes Hx Family Stroke: No Hx Cardiac Disease: Yes Hx Family Diabetes: No Age of Onset (years of age): 32 Hx Family Cancer: - Grandmother Lymphoma Physical Exam - Physical Exam General Appearance: Alert, No apparent distress Eye Exam: bilateral normal Ears, Nose, Throat: hearing grossly normal, normal pharynx Neck: full range of motion, supple Respiratory: lungs clear, normal breath sounds, no respiratory distress, no accessory muscle use Cardiovascular/Chest: normal peripheral pulses, no edema, tachycardia Peripheral Pulses: radial,right: 2+, radial,left: 2+ Gastrointestinal/Abdominal: soft, other - Vague diffuse discomfort to palpation Rectal Exam: deferred Back Exam: no CVA tenderness, no vertebral tenderness Extremity: normal range of motion, non-tender, normal inspection, no pedal edema, normal capillary refill Neurologic: operations superintendent II-XII nml as tested, alert, oriented x 3, other - Mildly sleepy already Skin Exam: normal color Comments: Vital Signs - 8 hr 09/19/20 17:51 Temperature 97.9 F Pulse Rate [ 129 H RIGHT] Pulse Rate [ 129 H left] Respiratory 18 Rate Blood Pressure 110/89 [Right Arm] O2 Sat by Pulse 99 Oximetry Progress - Progress Progress: 09/19/20 18:06 The patient is a 45-year-old female presented emergency room complaining of an allergic dermatitis from a wool blanket. No evidence of systemic reaction to this point specifically. She has received IV Benadryl with EMS. She is going to be receiving a dose of Singulair and Zyrtec. She is going to be receiving a small dose of oral prednisone. We are not doing a large dose in order to prevent a significant blood sugar spike. She does have moderate hyperglycemia and is receiving 6 units of insulin lispro. The patient will be monitored. We will recheck a glucose. 09/19/20 19:22 The patient is doing better from the standpoint of itching. She will be discharged. She does need to follow her blood sugars closely. The patient is going to be here within the next 10 minutes as that is when her ride can come get her. She is not going to wait on another glucose. The patient did receive a 500 cc fluid bolus here today. lana anderson [id number] 09/19/20 19:22 Laboratory Results - last 24 hr 09/19/20 18:15 Urine Color Yellow Urine Appearance Clear Urine pH 6.0 Ur Specific [place] 1.015 Urine Protein Negative Urine Glucose (UA) >=1000 H Urine Ketones Negative Urine Blood Trace-intact H Urine Nitrite Negative Urine Bilirubin Negative Urine Urobilinogen 0.2 Ur Leukocyte Esterase Negative Urine RBC 3-5 H Urine WBC 0-1 Ur Epithelial Cells 5-10 Urine Bacteria Rare 09/19/20 19:22 Departure - Departure Clinical Impression: Allergic dermatitis, Hyperglycemia due to type 1 diabetes mellitus Disposition: Discharge to Home or Self Care Condition: Fair Departure Forms: ED Discharge - Pt. Copy, Patient Portal Self Enrollment Instructions: DI for Allergic Rhinitis, Skin Rash (DC) Diet: diabetic diet Activity: increase activity as tolerated Referrals: JUSTINO MARQUEZ IV, [facility] [Primary Care Provider] - 1-2 Weeks Home Medications: Ambulatory Orders Buspirone HCl 60 mg PO BID 10/23/18 Gabapentin 300 mg PO TID 11/11/19 tiZANidine [Zanaflex] 12 mg PO Q8H PRN 11/11/19 Ondansetron Odt [Zofran Odt] 8 mg PO Q8H PRN #12 tab 12/25/19 Insulin Glargine [Lantus Solostar] 30 unit SC QAM 01/01/20 Promethazine Tab [Phenergan Tablet] 25 mg PO .Q4H PRN 01/01/20 Clonazepam [Klonopin] 2 mg PO TID 09/07/20 HYDROcodone 10MG/APAP 325MG [[place] 10/325] 1 tab PO Q4HR PRN 09/07/20 Insulin Aspart (with Niacinami [Fiasp] 0 unit SC AC 09/07/20 Iron Combinations [Niferex] 1 tab PO BID #60 tab 09/07/20 Propranolol HCl [Propranolol Hydrochloride] 10 mg PO TID 09/07/20 Sucralfate Suspension [Carafate Suspension] 1 gm PO ACHS #30 day 09/07/20 Additional Instructions: Avoid contact with wool. Control your blood sugars. Follow-up with your primary care doctor. Keep well-hydrated.
[2020-09-19] MEDS: CETIRIZINE HCL 10 MG TAB PO ONE (18:33)
[2020-09-19] MEDS: predniSONE 20 MG TAB PO ONE (18:33)
[2020-09-19] MEDS: INSULIN LISPRO 100 UNITS/ML PEN SUBCU ONE (18:33)
[2020-09-19] MEDS: MONTELUKAST 10 MG TAB PO ONE (18:33)
[2020-09-19] MEDS: SODIUM CHLORIDE 0.9% 1000ML 500 ML IVS ONE (18:36)
[2020-09-19] MEDS: HYDROcodone 5MG/APAP 325MG 1 EA TAB PO ONE (18:51)
[2020-09-19 19:30] VITALS: BP 112/82; TEMP 98.1
== END 2020-09-19 19:29 | disposition home or self-care (01) ==
LOC: ER 17:42
DX: L23.89 Allergic contact dermatitis due to other agents (principal); E10.65 Type 1 diabetes mellitus with hyperglycemia; R00.0 Tachycardia, unspecified; J45.909 Unspecified asthma, uncomplicated; F32.9 Major depressive disorder, single episode, unspecified; Z87.891 Personal history of nicotine dependence; Z79.4 Long term (current) use of insulin; Z79.899 Other long term (current) drug therapy; Z88.8 Allergy status to other drugs, medicaments and biological substances; Z88.6 Allergy status to analgesic agent
CPT/HCPCS: 36415; 81001; J1815; J7030; J7512

== ENCOUNTER 2020-09-24 09:17 | Emergency (ER) | payer MEDICARE, MEDICAID ==
--- NOTE | 2020-09-24 09:33 | ED.PDOC ---
History of Present Illness - General Chief Complaint: Abdominal Pain Time Seen by Provider: 09/24/20 09:31 Source: patient - History of Present Illness Initial Comments: 45-year-old female with past medical history of poorly controlled diabetes, G- tube dependent, drug-seeking behavior who presents with chief complaint of abdominal pain and distention. Reports onset of symptoms last night with worsening further this morning. Describes pain as constant, "feels like a blockage", severe, located to the entire lower abdomen without radiation, some of her home pain medications this morning without relief. Denies history of sim ilar symptoms in the past. Also reports nausea which is chronic in nature, dark/black stools x2 today, and reports brown discharge from her g-tube. Denies fevers, chills, chest pain, shortness of breath, urinary symptoms, leg swelling. She has had numerous abdominal surgeries in the past. Denies any hx of bowel obstruction. Patient is well-known to this ED. She has already had >15 ED visits in 2020. She has a well documented history of drug-seeking behavior. Immediately upon ED arrival she is already asking me for IV Ativan, Zofran, and IV pain medications. Allergies/Adverse Reactions: Allergies Fish Allergy Allergy (Verified 09/24/20 09:39) Haloperidol [From Haldol] Allergy (Verified 09/24/20 09:39) NSAIDs Allergy (Verified 09/24/20 09:39) Prochlorperazine [From Compazine] Allergy (Verified 09/24/20 09:39) Ketorolac Tromethamine [From Toradol] Adverse Reaction (Verified 09/24/20 09:39) Metoclopramide [From Reglan] Adverse Reaction (Verified 09/24/20 09:39) peanut Allergy (Severe, Uncoded 09/24/20 09:39) Home Medications: Ambulatory Orders Buspirone HCl 60 mg PO BID 10/23/18 Gabapentin 300 mg PO TID 11/11/19 tiZANidine [Zanaflex] 12 mg PO Q8H PRN 11/11/19 Ondansetron Odt [Zofran Odt] 8 mg PO Q8H PRN #12 tab 12/25/19 Insulin Glargine [Lantus Solostar] 30 unit SC QAM 01/01/20 Promethazine Tab [Phenergan Tablet] 25 mg PO .Q4H PRN 01/01/20 Clonazepam [Klonopin] 2 mg PO TID 09/07/20 HYDROcodone 10MG/APAP 325MG [[place] 10/325] 1 tab PO Q4HR PRN 09/07/20 Insulin Aspart (with Niacinami [Fiasp] 0 unit SC AC 09/07/20 Iron Combinations [Niferex] 1 tab PO BID #60 tab 09/07/20 Propranolol HCl [Propranolol Hydrochloride] 10 mg PO TID 09/07/20 Sucralfate Suspension [Carafate Suspension] 1 gm PO ACHS #30 day 09/07/20 Acetamin W/Cod #3 Tab [Tylenol w/CODEINE #3] 1 ea PO Q6H PRN 5 Days #6 tab 09/24/20 Review of Systems - Review of Systems Review of Systems: 09/24/20 10:22 as per HPI All other Systems: Reviewed and Negative Past Medical History (General) - Patient Medical History Hx Seizures: No Hx Stroke: No Hx Dementia: No Hx Asthma: Yes Hx of COPD: No Hx Cardiac Disorders: Yes - tachycardia Hx Congestive Heart Failure: No Hx Pacemaker: No Hx Hypertension: No Hx Thyroid Disease: No Hx Diabetes: Yes Hx Gastroesophageal Reflux: Yes Hx Renal Disease: No Hx Cancer: No Hx of HIV: No Hx Hepatitis C: No Hx MRSA: No MRSA Source:: Blood - Vaccination History Hx Tetanus, Diphtheria Vaccination: No Hx Influenza Vaccination: No Hx Pneumococcal Vaccination: Yes - Social History Hx Tobacco Use: Yes - Half pack a day Hx Chewing Tobacco Use: No Hx Alcohol Use: No Hx Substance Use: No Hx Substance Use Treatment: No Hx Depression: Yes Hx Physical Abuse: No Hx Emotional Abuse: No Hx Suspected Abuse: No - Female History Hx Last Menstrual Period: 11/05/11 Patient : No Family Medical History - Family History Mother Family History: No Known Name: April Age (years): 70 Living Status: Still Living Hx Family Asthma: No Hx Family Congestive Heart Failure: No Hx Family Hypertension: No Hx Family Stroke: No Hx Cardiac Disease: No Hx Family Diabetes: No Hx Family Cancer: Yes - skin cancer Hx Family;Other: thyroid problems and seizures Father Family History: No Known Name: Marlon Age (years): 68 Living Status: Still Living Hx Family Asthma: - Sister Hx Family Congestive Heart Failure: No Hx Family Hypertension: Yes Hx Family Stroke: No Hx Cardiac Disease: Yes Hx Family Diabetes: No Age of Onset (years of age): 32 Hx Family Cancer: - Grandmother Lymphoma Physical Exam - Physical Exam General Appearance: Alert, Comfortable, No apparent distress Eye Exam: bilateral normal Ears, Nose, Throat: hearing grossly normal, normal ENT inspection, normal pharynx Neck: non-tender, full range of motion, supple, normal inspection Respiratory: chest non-tender, lungs clear, normal breath sounds, no respiratory distress, no accessory muscle use Cardiovascular/Chest: normal peripheral pulses, regular rate, rhythm, no edema, no gallop, no JVD, no murmur Peripheral Pulses: radial,right: 2+, radial,left: 2+ Gastrointestinal/Abdominal: soft, no organomegaly, abnormal bowel sounds - hyperactive, tenderness - reports marked ttp throughout the entire abdomen even prior to being palpated, exam very suspicious Back Exam: normal inspection, no CVA tenderness, no vertebral tenderness Extremity: normal range of motion, non-tender, normal inspection, no pedal edema, no calf tenderness, normal capillary refill Neurologic: pecan mallow dipper II-XII nml as tested, no motor/sensory deficits, alert, normal mood/affect, oriented x 3, other - chronic torticollis but milder than usual Skin Exam: normal color, warm/dry Progress - Progress Progress: 09/24/20 10:24 Abdominal pain -Given abdominal distention and increased bowel sounds, concern for small bowel obstruction versus ileus. Consider Also upper versus lower GI bleed, GI Mass, Hernia, gastric/peptic ulcer, gastroenteritis, UTI, hyperglycemia, DKA, metabolic derangements, other -obtain stat bloodwork, CT imaging abdomen/pelvis, consider surgical consultation 09/24/20 10:28 -Serum glucose 427, anion gap 15, UA negative for ketones - does not appear to be in DKA. Pt reports she took Novolog 12 units just prior to ED arrival, so will give 1 L NS bolus for now and repeat glucose check in 1 hour 09/24/20 12:53 -Patient has remained stable. Repeat glucose is improved to 183. Remainder of lab work and CT imaging reviewed. CT abdomen/pelvis reveals some mild stranding of the mesentery as well as small thickening of the intestines suspicious for acute enteritis. There is a approximately 1.5 cm possibly enhancing lesion in the liver which is of unknown significance. There is no evidence of small bowel obstruction or other acute emergent processes. Discussed all the findings with the patient as well as diagnoses of acute enteritis and liver lesion. Advised she will need further outpatient evaluation and management of the liver lesion with likely ultrasound imaging of the liver. -She continues to beg myself and ED nurses for pain medications. She states that she took her last 2 tablets of hydrocodone last night. I did look up the patient with him the [employer] aware system and she last had her pain medicine filled on 08/23 which was 60 tablets of hydrocodone [address] Filemon Iyer. I told the patient that she will need to follow-up with Dr. Iyer for further pain medication refills for chronic pain management. I have provided a short course prescription of Tylenol 3 to last her for the weekend, 6 tablets total. She was given Toradol 15 mg IV prior to discharge as well. Nicolas Gross MD Billing #[id number] 09/24/20 10:16 Hold Metformin x 48Hrs [id number] Laboratory Results - last 24 hr 09/24/20 09/24/20 09/24/20 09:43 09:43 09:43 WBC 10.7 RBC 5.09 Hgb 11.5 L Hct 37.1 MCV 72.9 L MCH 22.7 L MCHC 31.1 L RDW 18.9 H Plt Count 326 MPV 7.8 Absolute Neuts (auto) 8.10 H Absolute Lymphs (auto) 1.80 Absolute Monos (auto) 0.40 Absolute Eos (auto) 0.10 Absolute Basos (auto) 0.20 H Neutrophils % 75.9 Lymphocytes % 17.0 L Monocytes % 4.1 Eosinophils % 1.4 Basophils % 1.6 Sodium 129 L Potassium 4.2 Chloride 97 L Carbon Dioxide 17 L Anion Gap 19.2 H BUN 21 H Creatinine 0.66 BUN/Creatinine Ratio 31.8 H POC Glucose 368 H Random Glucose 427 H* Serum Osmolality 280.4 Calcium 9.1 Total Bilirubin 0.5 Direct Bilirubin < 0.1 Indirect Bilirubin 0.4 AST 27 ALT 27 Alkaline Phosphatase 222 H Serum Total Protein 7.8 Albumin 4.0 Amylase 97 Lipase 96 H Urine Color Urine Appearance Urine pH Ur Specific [place] Urine Protein Urine Glucose (UA) Urine Ketones Urine Blood Urine Nitrite Urine Bilirubin Urine Urobilinogen Ur Leukocyte Esterase Urine RBC Urine WBC Ur Epithelial Cells Urine Bacteria 09/24/20 09/24/20 09:48 11:36 WBC RBC Hgb Hct MCV MCH MCHC RDW Plt Count MPV Absolute Neuts (auto) Absolute Lymphs (auto) Absolute Monos (auto) Absolute Eos (auto) Absolute Basos (auto) Neutrophils % Lymphocytes % Monocytes % Eosinophils % Basophils % Sodium Potassium Chloride Carbon Dioxide Anion Gap BUN Creatinine BUN/Creatinine Ratio POC Glucose 183 H D Random Glucose Serum Osmolality Calcium Total Bilirubin Direct Bilirubin Indirect Bilirubin AST ALT Alkaline Phosphatase Serum Total Protein Albumin Amylase Lipase Urine Color Yellow Urine Appearance Clear Urine pH 5.0 Ur Specific [place] 1.015 Urine Protein Negative Urine Glucose (UA) >=1000 H Urine Ketones Negative Urine Blood Small H Urine Nitrite Negative Urine Bilirubin Negative Urine Urobilinogen 0.2 Ur Leukocyte Esterase Negative Urine RBC 0 Urine WBC 0 Ur Epithelial Cells 0 Urine Bacteria 0 Departure - Departure Clinical Impression: Enteritis Time of Disposition: 12:35 Disposition: Discharge to Home or Self Care Condition: Good Departure Forms: ED Discharge - Pt. Copy, Patient Portal Self Enrollment Instructions: DI for Abdominal Pain-Adult, Viral Gastroenteritis, Adult (DC) Diet: resume usual diet Activity: increase activity as tolerated Referrals: FILEMON IYER [Physicians] - 1-2 Weeks Prescriptions: Acetamin W/Cod #3 Tab [Tylenol w/CODEINE #3] 1 ea PO Q6H PRN 5 Days #6 tab PRN Reason: Pain Home Medications: Ambulatory Orders Buspirone HCl 60 mg PO BID 10/23/18 Gabapentin 300 mg PO TID 11/11/19 tiZANidine [Zanaflex] 12 mg PO Q8H PRN 11/11/19 Ondansetron Odt [Zofran Odt] 8 mg PO Q8H PRN #12 tab 12/25/19 Insulin Glargine [Lantus Solostar] 30 unit SC QAM 01/01/20 Promethazine Tab [Phenergan Tablet] 25 mg PO .Q4H PRN 01/01/20 Clonazepam [Klonopin] 2 mg PO TID 09/07/20 HYDROcodone 10MG/APAP 325MG [[place] 10/325] 1 tab PO Q4HR PRN 09/07/20 Insulin Aspart (with Niacinami [Fiasp] 0 unit SC AC 09/07/20 Iron Combinations [Niferex] 1 tab PO BID #60 tab 09/07/20 Propranolol HCl [Propranolol Hydrochloride] 10 mg PO TID 09/07/20 Sucralfate Suspension [Carafate Suspension] 1 gm PO ACHS #30 day 09/07/20 Acetamin W/Cod #3 Tab [Tylenol w/CODEINE #3] 1 ea PO Q6H PRN 5 Days #6 tab 09/24/20 Additional Instructions: Remain well-hydrated and gradually advance your diet and activity level as tolerated. You will need to follow-up with your primary care physician in the next 1 to 2 weeks for repeat evaluation as well as refills for your chronic medications and pain medications as needed.
[2020-09-24] MEDS ORDERED: SODIUM CHLORIDE 0.9% 1000ML 1,000 ML IVS ONE (10:16)
[2020-09-24] MEDS ORDERED: ONDANSETRON INJ 4 MG/2 ML VIAL IV ONE (10:16)
[2020-09-24] MEDS ORDERED: INSULIN, REG.(HUMAN) 100 U/ML VIAL IV ONE (10:17)
[2020-09-24 11:33] VITALS: O2SAT 99
--- NOTE | 2020-09-24 11:36 | CT ---
TECHNIQUE: Abdomen/Pelvis w/Contrast Computerized axial tomography of the abdomen and pelvis was performed after the IV injection of iodinated nonionic contrast. Coronal and sagittal reconstructed imaging provided. Automated exposure control, adjustment of the mA and/or kV according to patient size, and/or use of iterative reconstruction technique. HISTORY: MAIN lower abdominal pain, distension, dark stools COMPARISONS: CT abdomen and pelvis July 14, 2020. FINDINGS: Abdomen: Lung bases and images of the heart are grossly unremarkable. Liver: Axial series 2:15 demonstrates a 1.6 x 1.1 cm heterogeneous low-attenuation lesion in the right liver which is nonspecific. Not evident and may represent a enhancing lesion. 23 cm. Prior cholecystectomy. Unremarkable: Stomach, spleen, pancreas, adrenals, and kidneys. No aneurysm. No dissection. Mild atherosclerotic disease. Celiac axis, SMA is, and renal arteries: Patent with contrast. Portal vein, SMV, and IVC: Grossly unremarkable. There is no periaortic or retroperitoneal adenopathy or mass. [id number] stool. No wall thickening or inflammatory changes. Terminal ileum is unremarkable. Prior appendectomy. Percutaneous J-tube in the proximal jejunum. There may be some mild diffuse fold thickening mild wall thickening. No distention. No stranding. No air-fluid levels. No free air. No free fluid. Mild stranding of the mesentery without adenopathy or omental caking. Pelvis: Uterus: Not clearly see and may be surgically removed, small, or atrophic. Bladder: Unremarkable. There is no pelvic mass or adenopathy. Inguinal regions: Is Bones: No suspicious osseous lesions on this limited examination of the skeleton. Metastatic disease better evaluated with bone scan. IMPRESSION: * Suspect mild wall is small bowel loops a enteritis or gastroenteritis. No obstructive pattern levels. No colonic wall thickening or stranding. Mild to moderate stool throughout th colon. * Mild stranding of the mesentry may be related to above finding. * Nonspecific lesion in the right which may be enhancing. * Hepatomegaly. Similar to prior. Electronically signed by: Chetan Mak 09/24/2020 11:34 AM INSURANCE ADVISOR
[2020-09-24] MEDS ORDERED: KETOROLAC TROMETHAMINE INJ 30 MG/ML VIAL IV ONE (12:37)
[2020-09-24 12:58] VITALS: BP 111/71; TEMP 97.8
== END 2020-09-24 12:51 | disposition home or self-care (01) ==
LOC: ER 09:17
DX: K52.9 Noninfective gastroenteritis and colitis, unspecified (principal); K76.9 Liver disease, unspecified; E11.9 Type 2 diabetes mellitus without complications; K21.9 Gastro-esophageal reflux disease without esophagitis; J45.909 Unspecified asthma, uncomplicated; F17.210 Nicotine dependence, cigarettes, uncomplicated; Z79.4 Long term (current) use of insulin; Z93.1 Gastrostomy status; Z79.899 Other long term (current) drug therapy; Z88.8 Allergy status to other drugs, medicaments and biological substances; Z88.6 Allergy status to analgesic agent; Z91.013 Allergy to seafood
CPT/HCPCS: 36415; 36416; 74177; 80048; 80076; 81001; 82150; 82948; 83690; 85025; J1885; J2405; J7030

== ENCOUNTER 2020-09-25 09:27 | Emergency (ER) | payer MEDICARE, MEDICAID ==
--- NOTE | 2020-09-25 09:35 | ED.PDOC ---
History of Present Illness - General Chief Complaint: Abdominal Pain Stated Complaint: Abd pain, N/V/D, distention Time Seen by Provider: 09/25/20 09:29 Additional Information: Multiple ER visits for same complaint. Patient seen here yesterday for same complaint. CT reportedly did not show bowel obstruction or acute surgical pathology. - History of Present Illness Initial Comments: Patient complains of nausea vomiting and diarrhea since yesterday. She complains of severe abdominal pain. She also complains of abdominal distention with a "knot" in her abdomen. Patient has a G-tube. Has history of type 1 diabetes and gastroparesis. Blood sugar today was over 500 and the patient took 30 units of Levemir and 10 units of NovoLog insulin at home. Patient denies fever and chills, cough, upper respiratory symptoms. She does complain of urinary frequency without dysuria. Patient is allergic to NSAIDs but is known to tolerate ketorolac IV. Timing/Duration: 24 hours Severity: severe Improving Factors: nothing Worsening Factors: nothing Associated Symptoms: nausea/vomiting Allergies/Adverse Reactions: Allergies Fish Allergy Allergy (Verified 09/25/20 09:43) Haloperidol [From Haldol] Allergy (Verified 09/25/20 09:43) NSAIDs Allergy (Verified 09/25/20 09:43) Prochlorperazine [From Compazine] Allergy (Verified 09/25/20 09:43) Ketorolac Tromethamine [From Toradol] Adverse Reaction (Verified 09/25/20 09:43) Metoclopramide [From Reglan] Adverse Reaction (Verified 09/25/20 09:43) peanut Allergy (Severe, Uncoded 09/25/20 09:43) Home Medications: Ambulatory Orders Buspirone HCl 60 mg PO BID 10/23/18 Gabapentin 300 mg PO TID 11/11/19 tiZANidine [Zanaflex] 12 mg PO Q8H PRN 11/11/19 Ondansetron Odt [Zofran Odt] 8 mg PO Q8H PRN #12 tab 12/25/19 Insulin Glargine [Lantus Solostar] 30 unit SC QAM 01/01/20 Promethazine Tab [Phenergan Tablet] 25 mg PO .Q4H PRN 01/01/20 Clonazepam [Klonopin] 2 mg PO TID 09/07/20 HYDROcodone 10MG/APAP 325MG [[place] 10/325] 1 tab PO Q4HR PRN 09/07/20 Insulin Aspart (with Niacinami [Fiasp] 0 unit SC AC 09/07/20 Iron Combinations [Niferex] 1 tab PO BID #60 tab 09/07/20 Propranolol HCl [Propranolol Hydrochloride] 10 mg PO TID 09/07/20 Sucralfate Suspension [Carafate Suspension] 1 gm PO ACHS #30 day 09/07/20 Acetamin W/Cod #3 Tab [Tylenol w/CODEINE #3] 1 ea PO Q6H PRN 5 Days #6 tab 09/24/20 Review of Systems - Review of Systems Constitutional: States: no symptoms reported EENTM: States: no symptoms reported Respiratory: States: no symptoms reported Cardiology: States: no symptoms reported Gastrointestinal/Abdominal: States: see HPI, abdominal pain, diarrhea, nausea, vomiting Genitourinary: States: frequency Musculoskeletal: States: no symptoms reported Skin: States: no symptoms reported Neurological: States: no symptoms reported Endocrine: States: no symptoms reported Hematologic/Lymphatic: States: no symptoms reported Past Medical History (General) - Patient Medical History Hx Seizures: No Hx Stroke: No Hx Dementia: No Hx Asthma: Yes Hx of COPD: No Hx Cardiac Disorders: Yes - tachycardia Hx Congestive Heart Failure: No Hx Pacemaker: No Hx Hypertension: No Hx Thyroid Disease: No Hx Diabetes: Yes Hx Gastroesophageal Reflux: Yes Hx Renal Disease: No Hx Cancer: No Hx of HIV: No Hx Hepatitis C: No Hx MRSA: No MRSA Source:: Blood - Vaccination History Hx Tetanus, Diphtheria Vaccination: No Hx Influenza Vaccination: No Hx Pneumococcal Vaccination: Yes - Social History Hx Tobacco Use: Yes - Half pack a day Hx Chewing Tobacco Use: No Hx Alcohol Use: No Hx Substance Use: No Hx Substance Use Treatment: No Hx Depression: Yes Hx Physical Abuse: No Hx Emotional Abuse: No Hx Suspected Abuse: No - Female History Hx Last Menstrual Period: 11/05/11 Patient : No Family Medical History - Family History Mother Family History: No Known Name: April Age (years): 70 Living Status: Still Living Hx Family Asthma: No Hx Family Congestive Heart Failure: No Hx Family Hypertension: No Hx Family Stroke: No Hx Cardiac Disease: No Hx Family Diabetes: No Hx Family Cancer: Yes - skin cancer Hx Family;Other: thyroid problems and seizures Father Family History: No Known Name: Marlon Age (years): 68 Living Status: Still Living Hx Family Asthma: - Sister Hx Family Congestive Heart Failure: No Hx Family Hypertension: Yes Hx Family Stroke: No Hx Cardiac Disease: Yes Hx Family Diabetes: No Age of Onset (years of age): 32 Hx Family Cancer: - Grandmother Lymphoma Physical Exam - Physical Exam General Appearance: Alert, Anxious, Obvious distress - Appears uncomfortable with pain, no respiratory distress Eye Exam: bilateral normal Ears, Nose, Throat: normal ENT inspection, other - Tongue very dry Neck: non-tender, full range of motion Respiratory: lungs clear Cardiovascular/Chest: regular rate, rhythm, no edema Gastrointestinal/Abdominal: normal bowel sounds, distended - Moderately distended without tympany, tenderness - Diffuse in all quadrants without rebound Rectal Exam: normal exam, normal rectal tone, other - Stool brown. Tabular Typist: Nurse Janis. Back Exam: normal inspection, no CVA tenderness Extremity: no pedal edema, no calf tenderness Neurologic: clinical resource director II-XII nml as tested, no motor/sensory deficits, alert, oriented x 3 Skin Exam: normal color Lymphatic: no adenopathy Progress - Progress Progress: 09/25/20 11:19 IV normal saline 1 L infusion plus Zofran 4 mg, Benadryl 12.5 mg and ketorolac 30 mg IV given. Later Pepcid 20 mg and Ativan 1 mg given. Patient reexamined at this time still appears uncomfortable and complaining of pain. Abdomen reexamined: Generally nontender except for localized tenderness along the lower half of the upper midline scar and to the right of the lower end of the scar is an area abdominal wall musculature that is slightly swollen and tender but is not protuberant or reducible. 09/25/20 11:37 Dilaudid 1 mg and Zofran 4 mg IV given. Medical decision making 45-year-old female with history of type I insulin diabetes and gastroparesis presenting to the emergency department with abdominal pain, vomiting and diarrhea, and melena. Patient has a history of very frequent visits with similar symptoms. Patient's laboratory work was generally unremarkable. Although she reported a blood sugar of 500 at home she treated herself with insulin and glucose is now 283. Patient stool is heme-negative. Patient appears to have a gastroenteritis with likely early developing ventral hernia. Patient does not appear to have a bowel obstruction. The distended abdomen on presentation was not symptomatic and CT scan yesterday did not show any evidence suggestive of bowel obstruction. CT was not repeated today because likelihood of bowel obstruction is low clinically and patient has had many CAT scans so that radiation exposure needs to be controlled as much as possible. 09/25/20 11:48 Patient now complains of continued nausea. Phenergan 12.5 mg and 500 mL added. - Results/Orders Results/Orders: Review of CT abdomen report from yesterday: Inflammation of the small bowel wall consistent with enteritis or gastroenteritis. No evidence of obstruction present. No surgical abnormalities reported. Vital Signs - 24 hr 09/25/20 09/25/20 09/25/20 09:27 09:33 11:00 Temperature 98 F Pulse Rate [ 95 H 95 H 86 Pulse ox] Respiratory 18 18 16 Rate Blood Pressure 114/71 115/69 [L arm] O2 Sat by Pulse 99 98 Oximetry 09/25/20 11:46 Promethazine HCl Inj [Phenergan Inj] 12.5 mg Sodium Chloride 0.9% 500Ml [NS 500ml] 500 ml IVPB ONCE Laboratory Results - last 24 hr 09/25/20 09/25/20 09/25/20 09:57 09:57 09:57 WBC 7.6 RBC 4.72 Hgb 10.7 L Hct 34.3 L MCV 72.6 L MCH 22.8 L MCHC 31.4 L RDW 19.4 H Plt Count 303 MPV 7.8 Absolute Neuts (auto) 5.40 Absolute Lymphs (auto) 1.50 Absolute Monos (auto) 0.50 Absolute Eos (auto) 0.20 Absolute Basos (auto) 0.10 Neutrophils % 70.9 Lymphocytes % 19.5 L Monocytes % 6.8 Eosinophils % 2.1 Basophils % 0.7 Sodium 136 Potassium 4.4 Chloride 103 Carbon Dioxide 20 L Anion Gap 17.4 BUN 19 H Creatinine 0.51 L BUN/Creatinine Ratio 37.3 H POC Glucose 283 H D Random Glucose 321 H Serum Osmolality 286.6 Lactic Acid Calcium 9.5 Total Bilirubin 0.3 AST 21 ALT 24 Alkaline Phosphatase 200 H Serum Total Protein 7.2 Albumin 3.6 Globulin 3.6 H Albumin/Globulin Ratio 1.0 L Lipase 40 D Urine Color Urine Appearance Urine pH Ur Specific [place] Urine Protein Urine Glucose (UA) Urine Ketones Urine Blood Urine Nitrite Urine Bilirubin Urine Urobilinogen Ur Leukocyte Esterase Urine RBC Urine WBC Ur Epithelial Cells Urine Bacteria Stool Occult Blood Serum Ketones 09/25/20 09/25/20 09/25/20 09:57 09:57 10:43 WBC RBC Hgb Hct MCV MCH MCHC RDW Plt Count MPV Absolute Neuts (auto) Absolute Lymphs (auto) Absolute Monos (auto) Absolute Eos (auto) Absolute Basos (auto) Neutrophils % Lymphocytes % Monocytes % Eosinophils % Basophils % Sodium Potassium Chloride Carbon Dioxide Anion Gap BUN Creatinine BUN/Creatinine Ratio POC Glucose Random Glucose Serum Osmolality Lactic Acid 2.2 Calcium Total Bilirubin AST ALT Alkaline Phosphatase Serum Total Protein Albumin Globulin Albumin/Globulin Ratio Lipase Urine Color Yellow Urine Appearance Clear Urine pH 5.5 Ur Specific [place] 1.010 Urine Protein Negative Urine Glucose (UA) 500 H Urine Ketones Negative Urine Blood Trace-lysed H Urine Nitrite Negative Urine Bilirubin Negative Urine Urobilinogen 0.2 Ur Leukocyte Esterase Negative Urine RBC 0-1 Urine WBC 0 Ur Epithelial Cells 0 Urine Bacteria 0 Stool Occult Blood Serum Ketones Negative 09/25/20 11:21 WBC RBC Hgb Hct MCV MCH MCHC RDW Plt Count MPV Absolute Neuts (auto) Absolute Lymphs (auto) Absolute Monos (auto) Absolute Eos (auto) Absolute Basos (auto) Neutrophils % Lymphocytes % Monocytes % Eosinophils % Basophils % Sodium Potassium Chloride Carbon Dioxide Anion Gap BUN Creatinine BUN/Creatinine Ratio POC Glucose Random Glucose Serum Osmolality Lactic Acid Calcium Total Bilirubin AST ALT Alkaline Phosphatase Serum Total Protein Albumin Globulin Albumin/Globulin Ratio Lipase Urine Color Urine Appearance Urine pH Ur Specific [place] Urine Protein Urine Glucose (UA) Urine Ketones Urine Blood Urine Nitrite Urine Bilirubin Urine Urobilinogen Ur Leukocyte Esterase Urine RBC Urine WBC Ur Epithelial Cells Urine Bacteria Stool Occult Blood Negative Serum Ketones Departure - Departure Clinical Impression: Abdominal pain, Gastroenteritis, Diabetes, Gastroparesis, Ventral hernia, early developing Disposition: Discharge to Home or Self Care Condition: Good Departure Forms: ED Discharge - Pt. Copy, Patient Portal Self Enrollment Instructions: DI for Abdominal Pain-Adult, Nausea and Vomiting, Adult (DC), Abdominal Hernia (DC), Viral Gastroenteritis, Adult (DC), Gastroparesis (Delayed Gastric Emptying) (DC) Diet: other - Clear liquid diet, gradually advance as tolerated. Referrals: JUSTINO MARQUEZ [facility] [employer] [Primary Care Provider] - 1-2 Weeks Home Medications: Ambulatory Orders Buspirone HCl 60 mg PO BID 10/23/18 Gabapentin 300 mg PO TID 11/11/19 tiZANidine [Zanaflex] 12 mg PO Q8H PRN 11/11/19 Ondansetron Odt [Zofran Odt] 8 mg PO Q8H PRN #12 tab 12/25/19 Insulin Glargine [Lantus Solostar] 30 unit SC QAM 01/01/20 Promethazine Tab [Phenergan Tablet] 25 mg PO .Q4H PRN 01/01/20 Clonazepam [Klonopin] 2 mg PO TID 09/07/20 HYDROcodone 10MG/APAP 325MG [[place] 10/325] 1 tab PO Q4HR PRN 09/07/20 Insulin Aspart (with Niacinami [Fiasp] 0 unit SC AC 09/07/20 Iron Combinations [Niferex] 1 tab PO BID #60 tab 09/07/20 Propranolol HCl [Propranolol Hydrochloride] 10 mg PO TID 09/07/20 Sucralfate Suspension [Carafate Suspension] 1 gm PO ACHS #30 day 09/07/20 Acetamin W/Cod #3 Tab [Tylenol w/CODEINE #3] 1 ea PO Q6H PRN 5 Days #6 tab 09/24/20 Additional Instructions: Continue your current prescriptions at home of Phenergan, Zofran, Nexium. Contact your primary doctor or public records officer tomorrow to arrange for further care. Return to emergency room if your sugar is extremely high if it does not come down or you have acutely worsening symptoms of vomiting.
[2020-09-25] MEDS ORDERED: SODIUM CHLORIDE 0.9% 1000ML 1,000 ML IVS ONE (09:43)
[2020-09-25] MEDS ORDERED: ONDANSETRON INJ 4 MG/2 ML VIAL IV ONE ×2 (09:43→11:36)
[2020-09-25] MEDS ORDERED: diphenhydrAMINE HCL 50 MG/ML VIAL IV ONE (09:44)
[2020-09-25] MEDS ORDERED: KETOROLAC TROMETHAMINE INJ 30 MG/ML VIAL IV ONE (09:45)
[2020-09-25] MEDS ORDERED: FAMOTIDINE IV PREMIX 20 MG in PREMIX BAG 1 BAG IVPB ONE (10:39)
[2020-09-25] MEDS ORDERED: SODIUM CHLORIDE 0.9% (FLUSH) 10 ML SYG ONE (10:47)
[2020-09-25] MEDS ORDERED: HYDROmorphone HCL INJ 2 MG/ML VIAL IV ONE (11:21)
[2020-09-25] MEDS ORDERED: SODIUM CHLORIDE 0.9% IVPB ONE (11:46)
[2020-09-25] MEDS ORDERED: PROMETHAZINE HCL IVPB ONE (11:46)
[2020-09-25 12:42] VITALS: BP 120/62; TEMP 97.7; O2SAT 99
== END 2020-09-25 12:42 | disposition home or self-care (01) ==
LOC: ER 09:27
DX: K52.9 Noninfective gastroenteritis and colitis, unspecified (principal); E10.43 Type 1 diabetes mellitus with diabetic autonomic (poly)neuropathy; K31.84 Gastroparesis; K43.9 Ventral hernia without obstruction or gangrene; F32.9 Major depressive disorder, single episode, unspecified; J45.909 Unspecified asthma, uncomplicated; K21.9 Gastro-esophageal reflux disease without esophagitis; F17.210 Nicotine dependence, cigarettes, uncomplicated; Z93.1 Gastrostomy status; Z79.4 Long term (current) use of insulin; Z88.6 Allergy status to analgesic agent; Z79.899 Other long term (current) drug therapy
CPT/HCPCS: 36415; 80053; 81001; 82009; 82270; 82948; 83605; 83690; 85025; A4216; J1170; J1200; J1885; J2060; J2405; J2550; J3490; J7030; J7040

== ENCOUNTER 2020-10-02 13:01 | Emergency (ER) | payer MEDICARE, MEDICAID ==
[2020-10-02] MEDS ORDERED: KETOROLAC TROMETHAMINE INJ 30 MG/ML VIAL IV ONE (13:18)
[2020-10-02] MEDS ORDERED: ONDANSETRON INJ 4 MG/2 ML VIAL IV ONE (13:19)
--- NOTE | 2020-10-02 13:46 | RAD ---
EXAM DESCRIPTION: Shoulder,Left 2 or More Views CLINICAL HISTORY: 45 years Female pain s/p fall COMPARISON: None TECHNIQUE: AP views in neutral and external rotation of the left shoulder are obtained. FINDINGS: OSSEOUS: There is no evidence of acute fracture or osteolytic/osteoblastic lesions. There is no evidence of subluxation or dislocation. The joint spaces are preserved. There is no evidence of degenerative osteophytosis or sclerosis. There is no evidence of marginal erosive changes to suggest an inflammatory arthritis. SOFT TISSUE: There is no significant soft tissue swelling or mass. No evidence of significant soft tissue calcifications. No radiopaque foreign bodies. IMPRESSION: No acute osseous abnormalities. Remainder of findings as described above. Electronically signed by: Connie Sosa MD 10/02/2020 1:45 PM [facility]
--- NOTE | 2020-10-02 13:53 | CT ---
EXAM DESCRIPTION: Maxillofacial CLINICAL HISTORY: Left TMJ/ jaw pain s/p fall. COMPARISON: None. TECHNIQUE: CT examination of the facial bones performed on multi-detector CT scanner without intravenous contrast administration. Sagittal and coronal reformations are obtained. Automatic exposure control (A EC), mA and/or kV adjustment by patient size, and/or iterative reconstructive technique was used, per departmental dose optimization program, during the performance of the CT examination. FINDINGS: Normal appearance of the temporomandibular joints are noted bilaterally without any evidence of dislocation, subluxation or degenerative changes. Rest of the mandible appears unremarkable. Normal appearance of the bony orbits, zygomatic arches, maxilla and mandible are noted. No definite evidence of nasal bone fractures or deformity is noted. No evidence of opacification of the paranasal sinuses are seen. IMPRESSION: Normal appearance of the left temporomandibular joint. Unremarkable examination. Electronically signed by: Gwen Crooks MD 10/02/2020 1:52 PM [facility]
--- NOTE | 2020-10-02 13:57 | ED.PDOC ---
History of Present Illness - General Chief Complaint: GI Problem Stated Complaint: vomiting, shoulder pain Time Seen by Provider: 10/02/20 13:16 Source: patient, RN notes reviewed, Vital Signs reviewed, old records Exam Limitations: no limitations - History of Present Illness Initial Comments: Patient is a 45-year-old white female who presents with complaint of falling yesterday and now having left shoulder pain and her jaw locked up. Patient states she has been unable to open her jaw. She has pain in the shoulder and left jaw. It is throbbing. Nothing makes it better. Is worse with movement or palpation. Patient also had some nausea and vomiting and started choking on her vomit because she could not open her jaw. The pain is moderate in intensity. It is constant. It does not radiate. Timing/Duration: 24 hours Severity: moderate Improving Factors: nothing Worsening Factors: movement Associated Symptoms: nausea/vomiting Allergies/Adverse Reactions: Allergies Fish Allergy Allergy (Verified 09/25/20 09:43) Haloperidol [From Haldol] Allergy (Verified 09/25/20 09:43) NSAIDs Allergy (Verified 09/25/20 09:43) Prochlorperazine [From Compazine] Allergy (Verified 09/25/20 09:43) Ketorolac Tromethamine [From Toradol] Adverse Reaction (Verified 09/25/20 09:43) Metoclopramide [From Reglan] Adverse Reaction (Verified 09/25/20 09:43) peanut Allergy (Severe, Uncoded 09/25/20 09:43) Home Medications: Ambulatory Orders Buspirone HCl 60 mg PO BID 10/23/18 Gabapentin 300 mg PO TID 11/11/19 tiZANidine [Zanaflex] 12 mg PO Q8H PRN 11/11/19 Ondansetron Odt [Zofran Odt] 8 mg PO Q8H PRN #12 tab 12/25/19 Insulin Glargine [Lantus Solostar] 30 unit SC QAM 01/01/20 Promethazine Tab [Phenergan Tablet] 25 mg PO .Q4H PRN 01/01/20 Clonazepam [Klonopin] 2 mg PO TID 09/07/20 HYDROcodone 10MG/APAP 325MG [[place] 10/325] 1 tab PO Q4HR PRN 09/07/20 Insulin Aspart (with Niacinami [Fiasp] 0 unit SC AC 09/07/20 Iron Combinations [Niferex] 1 tab PO BID #60 tab 09/07/20 Propranolol HCl [Propranolol Hydrochloride] 10 mg PO TID 09/07/20 Sucralfate Suspension [Carafate Suspension] 1 gm PO ACHS #30 day 09/07/20 Acetamin W/Cod #3 Tab [Tylenol w/CODEINE #3] 1 ea PO Q6H PRN 5 Days #6 tab 09/24/20 Review of Systems - Review of Systems Constitutional: States: no symptoms reported, see HPI. Denies: chills, fever, malaise, weakness EENTM: States: no symptoms reported. Denies: eye pain, blurred vision, double vision Respiratory: States: no symptoms reported. Denies: cough, short of breath, stridor, wheezing Cardiology: States: no symptoms reported. Denies: chest pain, palpitations, syncope Gastrointestinal/Abdominal: States: see HPI, nausea, vomiting Musculoskeletal: States: see HPI, joint pain - Left shoulder and left jaw.. Denies: neck pain Skin: States: no symptoms reported. Denies: change in color, rash Neurological: States: no symptoms reported. Denies: headache, tingling, tremors, weakness Endocrine: States: no symptoms reported. Denies: increased hunger, increased thirst, increased urine Hematologic/Lymphatic: States: no symptoms reported. Denies: blood clots, easy bleeding All other Systems: Reviewed and Negative Past Medical History (General) - Patient Medical History Hx Seizures: No Hx Stroke: No Hx Dementia: No Hx Asthma: Yes Hx of COPD: No Hx Cardiac Disorders: Yes - tachycardia Hx Congestive Heart Failure: No Hx Pacemaker: No Hx Hypertension: No Hx Thyroid Disease: No Hx Diabetes: Yes Hx Gastroesophageal Reflux: Yes Hx Renal Disease: No Hx Cancer: No Hx of HIV: No Hx Hepatitis C: No Hx MRSA: No MRSA Source:: Blood - Vaccination History Hx Tetanus, Diphtheria Vaccination: No Hx Influenza Vaccination: No Hx Pneumococcal Vaccination: Yes - Social History Hx Tobacco Use: Yes - Half pack a day Hx Chewing Tobacco Use: No Hx Alcohol Use: No Hx Substance Use: No Hx Substance Use Treatment: No Hx Depression: Yes Hx Physical Abuse: No Hx Emotional Abuse: No Hx Suspected Abuse: No - Female History Hx Last Menstrual Period: 11/05/11 Patient : No Family Medical History - Family History Mother Family History: No Known Name: April Age (years): 70 Living Status: Still Living Hx Family Asthma: No Hx Family Congestive Heart Failure: No Hx Family Hypertension: No Hx Family Stroke: No Hx Cardiac Disease: No Hx Family Diabetes: No Hx Family Cancer: Yes - skin cancer Hx Family;Other: thyroid problems and seizures Father Family History: No Known Name: Marlon Age (years): 68 Living Status: Still Living Hx Family Asthma: - Sister Hx Family Congestive Heart Failure: No Hx Family Hypertension: Yes Hx Family Stroke: No Hx Cardiac Disease: Yes Hx Family Diabetes: No Age of Onset (years of age): 32 Hx Family Cancer: - Grandmother Lymphoma Physical Exam - Physical Exam General Appearance: Alert, Anxious, Unkempt, Well Developed, Well Nourished Eye Exam: bilateral normal Ears, Nose, Throat: hearing grossly normal, other - Patient with tenderness to palpation of the left jaw and left TMJ. There are no step-offs or crepitus. Patient has trismus and is unable to even open her mouth wider than 1 fingers breath. Mucous membranes are dry. Neck: non-tender, full range of motion, supple Respiratory: chest non-tender, lungs clear, normal breath sounds, no respiratory distress, no accessory muscle use Cardiovascular/Chest: normal peripheral pulses, regular rate, rhythm, no edema, no gallop, no JVD, no murmur Peripheral Pulses: radial,right: 2+, radial,left: 2+ Gastrointestinal/Abdominal: normal bowel sounds, non tender, soft, other - Patient is cachectic which is her normal state Back Exam: normal inspection, no CVA tenderness, no vertebral tenderness Extremity: no pedal edema, normal capillary refill, other - Tenderness to palpation of the left shoulder. No crepitus or step-offs Neurologic: sustainability specialist II-XII nml as tested, no motor/sensory deficits, alert, normal mood/affect, oriented x 3 Skin Exam: normal color, warm/dry Lymphatic: no adenopathy Progress - Progress Progress: Differential diagnosis: Shoulder contusion, shoulder fracture, TMJ contusion, mandible fracture among others. 10/02/20 14:08 Patient's x-rays and CT are negative for fracture. Have recommended RICE for pain and edema. Patient has Zofran at home. There is been no episodes of vomiting here. I discussed the plan of care of discharge home with alternating Tylenol Motrin for her pain. Patient voices understanding and agreement with plan of care. Hao Zambrano M.D. #[id number] - Results/Orders Results/Orders: EXAM DESCRIPTION: Shoulder,Left 2 or More Views CLINICAL HISTORY: 45 years Female pain s/p fall COMPARISON: None TECHNIQUE: AP views in neutral and external rotation of the left shoulder are obtained. FINDINGS: OSSEOUS: There is no evidence of acute fracture or osteolytic/osteoblastic lesions. There is no evidence of subluxation or dislocation. The joint spaces are preserved. There is no evidence of degenerative osteophytosis or sclerosis. There is no evidence of marginal erosive changes to suggest an inflammatory arthritis. SOFT TISSUE: There is no significant soft tissue swelling or mass. No evidence of significant soft tissue calcifications. No radiopaque foreign bodies. IMPRESSION: No acute osseous abnormalities. Remainder of findings as described above. Electronically signed by: Connie Sosa MD 10/02/2020 1:45 PM EXAM DESCRIPTION: Maxillofacial CLINICAL HISTORY: Left TMJ/ jaw pain s/p fall. COMPARISON: None. TECHNIQUE: CT examination of the facial bones performed on multi-detector CT scanner without intravenous contrast administration. Sagittal and coronal reformations are obtained. Automatic exposure control (A EC), mA and/or kV adjustment by patient size, and/or iterative reconstructive technique was used, per departmental dose optimization program, during the performance of the CT examination. FINDINGS: Normal appearance of the temporomandibular joints are noted bilaterally without any evidence of dislocation, subluxation or degenerative changes. Rest of the mandible appears unremarkable. Normal appearance of the bony orbits, zygomatic arches, maxilla and mandible are noted. No definite evidence of nasal bone fractures or deformity is noted. No evidence of opacification of the paranasal sinuses are seen. IMPRESSION: Normal appearance of the left temporomandibular joint. Unremarkable examination. Electronically signed by: Gwen Crooks MD 10/02/2020 1:52 PM TACK MAKER Departure - Departure Clinical Impression: Contusion, shoulder /upper arm Fall Qualifiers: Encounter type: initial encounter Qualified Code(s): W19.XXXA - Unspecified fall, initial encounter Contusion of jaw Qualifiers: Encounter type: initial encounter Qualified Code(s): S00.83XA - Contusion of other part of head, initial encounter Nausea and vomiting Qualifiers: Vomiting type: unspecified Vomiting Intractability: non-intractable Qualified Code(s): R11.2 - Nausea with vomiting, unspecified Time of Disposition: 14:12 Disposition: Discharge to Home or Self Care Condition: Good Departure Forms: ED Discharge - Pt. Copy, Patient Portal Self Enrollment Instructions: Contusion (DC), Minor Head Injury (DC) Diet: full liquid diet Activity: increase activity as tolerated Referrals: JUSTINO MARQUEZ IV, L[employer] SETTER [Primary Care Provider] - 1-5 Days Home Medications: Ambulatory Orders Buspirone HCl 60 mg PO BID 10/23/18 Gabapentin 300 mg PO TID 11/11/19 tiZANidine [Zanaflex] 12 mg PO Q8H PRN 11/11/19 Ondansetron Odt [Zofran Odt] 8 mg PO Q8H PRN #12 tab 12/25/19 Insulin Glargine [Lantus Solostar] 30 unit SC QAM 01/01/20 Promethazine Tab [Phenergan Tablet] 25 mg PO .Q4H PRN 01/01/20 Clonazepam [Klonopin] 2 mg PO TID 09/07/20 HYDROcodone 10MG/APAP 325MG [[place] 10/325] 1 tab PO Q4HR PRN 09/07/20 Insulin Aspart (with Niacinami [Fiasp] 0 unit SC AC 09/07/20 Iron Combinations [Niferex] 1 tab PO BID #60 tab 09/07/20 Propranolol HCl [Propranolol Hydrochloride] 10 mg PO TID 09/07/20 Sucralfate Suspension [Carafate Suspension] 1 gm PO ACHS #30 day 09/07/20 Acetamin W/Cod #3 Tab [Tylenol w/CODEINE #3] 1 ea PO Q6H PRN 5 Days #6 tab
[2020-10-02 14:20] VITALS: BP 110/76; TEMP 98.1; O2SAT 100
== END 2020-10-02 14:17 | disposition home or self-care (01) ==
LOC: ER 13:01
DX: S40.012A Contusion of left shoulder, initial encounter (principal); S00.83XA Contusion of other part of head, initial encounter; R11.2 Nausea with vomiting, unspecified; J45.909 Unspecified asthma, uncomplicated; E11.9 Type 2 diabetes mellitus without complications; K21.9 Gastro-esophageal reflux disease without esophagitis; F32.9 Major depressive disorder, single episode, unspecified; F17.210 Nicotine dependence, cigarettes, uncomplicated; Z79.899 Other long term (current) drug therapy; Z79.4 Long term (current) use of insulin; Z91.013 Allergy to seafood; Z88.5 Allergy status to narcotic agent; Z88.6 Allergy status to analgesic agent; Z88.8 Allergy status to other drugs, medicaments and biological substances; W19.XXXA Unspecified fall, initial encounter; Y92.9 Unspecified place or not applicable
CPT/HCPCS: 70486; 73030; J1885; J2405

== ENCOUNTER 2020-10-05 15:23 | Emergency (ER) | payer MEDICARE, MEDICAID ==
[2020-10-05] MEDS: ONDANSETRON INJ 4 MG/2 ML VIAL IV ONE (16:04)
[2020-10-05] MEDS: SODIUM CHLORIDE 0.9% 1000ML 1,000 ML IVS ONE ×2 (16:04→17:09)
[2020-10-05] MEDS: KETOROLAC TROMETHAMINE INJ 30 MG/ML VIAL IV ONE (16:04)
[2020-10-05] MEDS: SODIUM CHLORIDE 0.9% (FLUSH) 10 ML SYG IV PRN (16:06)
[2020-10-05] MEDS: PANTOPRAZOLE SODIUM IV 40 MG VIAL IV ONE (17:22)
--- NOTE | 2020-10-05 17:34 | ED.PDOC ---
History of Present Illness - General Chief Complaint: Abdominal Pain Stated Complaint: N/V, abdominal pain Time Seen by Provider: 10/05/20 15:44 Information Source: patient, RN notes reviewed, Vital Signs reviewed, family - History of Present Illness Initial Comments: Patient is a 45-year-old white female who is well-known to me in the department who presents with abdominal pain. Patient states that she has been having nausea and vomiting since yesterday. Anytime she eats or drinks anything she vomits. The pain is not associated with anything. Nothing makes it better or worse. The pain is sharp and stabbing in nature. It waxes and wanes in intensity but is severe at the moment. Abdominal Pain Onset Location: epigastric Pain Radiation: no radiation Quality: severe, sharpness, stabbing Timing/Duration: 24 hours, getting worse Improving Factors: nothing Worsening Factors: eating Associated Symptoms: nausea/vomiting Review of Systems - Review of Systems Constitutional: States: no symptoms reported, see HPI. Denies: chills, fever, malaise, weakness EENTM: States: no symptoms reported. Denies: eye pain, blurred vision, double vision Respiratory: States: no symptoms reported. Denies: cough, short of breath, stridor Cardiology: States: no symptoms reported. Denies: chest pain, palpitations, syncope Gastrointestinal/Abdominal: States: see HPI, abdominal pain, nausea, vomiting. Denies: diarrhea Genitourinary: States: no symptoms reported. Denies: dysuria, frequency Musculoskeletal: States: no symptoms reported. Denies: back pain, joint pain, joint swelling, neck pain Skin: States: no symptoms reported. Denies: change in color, rash Neurological: States: no symptoms reported. Denies: headache, tingling, tremors, weakness Endocrine: States: no symptoms reported. Denies: increased hunger, increased thirst, increased urine Hematologic/Lymphatic: States: no symptoms reported. Denies: blood clots, easy bleeding All other Systems: Reviewed and Negative, No Change from Baseline Past Medical History (General) - Patient Medical History Hx Seizures: No Hx Stroke: No Hx Dementia: No Hx Asthma: Yes Hx of COPD: No Hx Cardiac Disorders: Yes - tachycardia Hx Congestive Heart Failure: No Hx Pacemaker: No Hx Hypertension: No Hx Thyroid Disease: No Hx Diabetes: Yes Hx Gastroesophageal Reflux: Yes Hx Renal Disease: No Hx Cancer: No Hx of HIV: No Hx Hepatitis C: No Hx MRSA: No MRSA Source:: Blood - Vaccination History Hx Tetanus, Diphtheria Vaccination: No Hx Influenza Vaccination: No Hx Pneumococcal Vaccination: Yes - Social History Hx Tobacco Use: Yes - Half pack a day Hx Chewing Tobacco Use: No Hx Alcohol Use: No Hx Substance Use: No Hx Substance Use Treatment: No Hx Depression: Yes Hx Physical Abuse: No Hx Emotional Abuse: No Hx Suspected Abuse: No - Female History Hx Last Menstrual Period: 11/05/11 Patient : No Family Medical History - Family History Mother Family History: No Known Name: April Age (years): 70 Living Status: Still Living Hx Family Asthma: No Hx Family Congestive Heart Failure: No Hx Family Hypertension: No Hx Family Stroke: No Hx Cardiac Disease: No Hx Family Diabetes: No Hx Family Cancer: Yes - skin cancer Hx Family;Other: thyroid problems and seizures Father Family History: No Known Name: Marlon Age (years): 68 Living Status: Still Living Hx Family Asthma: - Sister Hx Family Congestive Heart Failure: No Hx Family Hypertension: Yes Hx Family Stroke: No Hx Cardiac Disease: Yes Hx Family Diabetes: No Age of Onset (years of age): 32 Hx Family Cancer: - Grandmother Lymphoma Physical Exam - Physical Exam General Appearance: Alert, Anxious, Unkempt, Well Developed, Well Nourished Eyes, Ears, Nose, Throat Exam: PERRL/EOMI, normal ENT inspection, pharynx normal - Except for dry mucous membranes Neck: non-tender, full range of motion, supple Respiratory: chest non-tender, lungs clear, normal breath sounds, no respiratory distress, no accessory muscle use Cardiovascular/Chest: normal peripheral pulses, no edema, no gallop, no JVD, no murmur, tachycardia Peripheral Pulses: No deficit Gastrointestinal/Abdominal: normal bowel sounds, soft, tenderness - At the epigastrium at the site of her previous well-healed surgical scar. There is no peritoneal signs. Back Exam: normal inspection, no CVA tenderness, no vertebral tenderness Extremity: normal range of motion, non-tender, normal inspection Neurologic: wrapping machine tender II-XII nml as tested, no motor/sensory deficits, alert, normal mood/affect, oriented x 3 Skin Exam: normal color, warm/dry Lymphatic: no adenopathy Progress - Progress Progress: Differential diagnosis: Pancreatitis, gastroenteritis, bowel obstruction, peptic ulcer disease among others. 10/05/20 17:34 Patient with mild pancreatitis. She is markedly improved after IV fluids and IV Toradol and Pepcid. Plan on discharge home at this time. I discussed the plan of care with the patient she voices understanding and agreement. Hao Zambrano M.D. #[id number] - Results/Orders Results/Orders: 10/05/20 15:47 Sodium Chloride 0.9% (Flush) [Saline Flush Syringe] 10 ml IV PRN PRN 10/05/20 17:02 Sodium Chloride 0.9% 1000ML [Ns 1000 ml] 1,000 ml IVS ONCE Laboratory Results - last 24 hr 10/05/20 10/05/20 10/05/20 16:04 16:04 16:04 WBC 8.8 RBC 5.25 Hgb 12.2 Hct 38.1 MCV 72.5 L MCH 23.2 L MCHC 32.0 L RDW 20.5 H Plt Count 469 H MPV 7.5 Absolute Neuts (auto) 6.10 Absolute Lymphs (auto) 2.00 Absolute Monos (auto) 0.50 Absolute Eos (auto) 0.10 Absolute Basos (auto) 0.00 Neutrophils % 69.3 Lymphocytes % 22.8 Monocytes % 6.2 Eosinophils % 1.2 Basophils % 0.5 Sodium 132 L Potassium 3.9 Chloride 98 L Carbon Dioxide 21 Anion Gap 16.9 BUN 9 Creatinine 0.58 L BUN/Creatinine Ratio 15.5 Random Glucose 346 H Serum Osmolality 277.0 Lactic Acid Calcium 9.3 Total Bilirubin 0.9 Direct Bilirubin 0.1 Indirect Bilirubin 0.8 AST 19 ALT 22 Alkaline Phosphatase 189 H Serum Total Protein 8.2 Albumin 4.3 Lipase 100 H Urine Color Yellow Urine Appearance Clear Urine pH 5.5 Ur Specific [place] <= 1.005 Urine Protein Negative Urine Glucose (UA) >=1000 H Urine Ketones Negative Urine Blood Trace-lysed H Urine Nitrite Negative Urine Bilirubin Negative Urine Urobilinogen 0.2 Ur Leukocyte Esterase Negative Urine RBC 1-3 Urine WBC 0 Ur Epithelial Cells 3-5 Urine Bacteria Rare 10/05/20 16:16 WBC RBC Hgb Hct MCV MCH MCHC RDW Plt Count MPV Absolute Neuts (auto) Absolute Lymphs (auto) Absolute Monos (auto) Absolute Eos (auto) Absolute Basos (auto) Neutrophils % Lymphocytes % Monocytes % Eosinophils % Basophils % Sodium Potassium Chloride Carbon Dioxide Anion Gap BUN Creatinine BUN/Creatinine Ratio Random Glucose Serum Osmolality Lactic Acid 0.9 Calcium Total Bilirubin Direct Bilirubin Indirect Bilirubin AST ALT Alkaline Phosphatase Serum Total Protein Albumin Lipase Urine Color Urine Appearance Urine pH Ur Specific [place] Urine Protein Urine Glucose (UA) Urine Ketones Urine Blood Urine Nitrite Urine Bilirubin Urine Urobilinogen Ur Leukocyte Esterase Urine RBC Urine WBC Ur Epithelial Cells Urine Bacteria Vital Signs 10/05/20 10/05/20 10/05/20 15:45 16:24 17:00 Temperature 98.3 F Pulse Rate [ 106 H 94 H 82 Left Radial] Respiratory 16 18 18 Rate Blood Pressure 114/83 117/77 116/85 [Right Arm] O2 Sat by Pulse 98 99 100 Oximetry - EKG/XRAY/CT CT Ordered: No CT Interpretation Call Back: No Departure - Departure Clinical Impression: Dehydration Pancreatitis Qualifiers: Chronicity: chronic Pancreatitis type: unspecified pancreatitis type Qualified Code(s): K86.1 - Other chronic pancreatitis Abdominal pain Qualifiers: Abdominal location: epigastric Qualified Code(s): R10.13 - Epigastric pain Time of Disposition: 17:36 Disposition: Discharge to Home or Self Care Condition: Good Departure Forms: ED Discharge - Pt. Copy, Patient Portal Self Enrollment Instructions: DI for Abdominal Pain-Adult, Pancreatitis (DC), Dehydration, Adult (DC), Severe Abdominal Pain, Adult (DC) Diet: full liquid diet Activity: increase activity as tolerated Referrals: JUSTINO MARQUEZ IV, QUAIL FARMER [Primary Care Provider] - 1-5 Days Home Medications: Ambulatory Orders Buspirone HCl 60 mg PO BID 10/23/18 Gabapentin 300 mg PO TID 11/11/19 tiZANidine [Zanaflex] 12 mg PO Q8H PRN 11/11/19 Ondansetron Odt [Zofran Odt] 8 mg PO Q8H PRN #12 tab 12/25/19 Insulin Glargine [Lantus Solostar] 30 unit SC QAM 01/01/20 Promethazine Tab [Phenergan Tablet] 25 mg PO .Q4H PRN 01/01/20 Clonazepam [Klonopin] 2 mg PO TID 09/07/20 HYDROcodone 10MG/APAP 325MG [[place] 10/325] 1 tab PO Q4HR PRN 09/07/20 Insulin Aspart (with Niacinami [Fiasp] 0 unit SC AC 09/07/20 Iron Combinations [Niferex] 1 tab PO BID #60 tab 09/07/20 Propranolol HCl [Propranolol Hydrochloride] 10 mg PO TID 09/07/20 Sucralfate Suspension [Carafate Suspension] 1 gm PO ACHS #30 day 09/07/20 Acetamin W/Cod #3 Tab [Tylenol w/CODEINE #3] 1 ea PO Q6H PRN 5 Days #6 tab 09/24/20
[2020-10-05 17:45] VITALS: BP 120/74; TEMP 97.8; O2SAT 99
== END 2020-10-05 17:44 | disposition home or self-care (01) ==
LOC: ER 15:23
DX: K86.1 Other chronic pancreatitis (principal); E86.0 Dehydration; E11.9 Type 2 diabetes mellitus without complications; K21.9 Gastro-esophageal reflux disease without esophagitis; F32.9 Major depressive disorder, single episode, unspecified; F17.210 Nicotine dependence, cigarettes, uncomplicated; J45.909 Unspecified asthma, uncomplicated; Z79.84 Long term (current) use of oral hypoglycemic drugs; Z79.899 Other long term (current) drug therapy
CPT/HCPCS: 36415; 80048; 80076; 81001; 83605; 83690; 85025; A4216; J1885; J2405; J7030